=== PATIENT | female | born 1940 | race Caucasian/White ===

== ENCOUNTER → 2018-05-24 16:12 | Outpatient (CLI) | payer MEDICARE, OTHER, SELFPAY ==
--- NOTE | 2018-05-24 16:18 | RAD_ITS ---
STUDY: X-RAY - PELVIS AND RIGHT HIP REASON FOR EXAM: Female, 77 years old. Pain. TECHNIQUE: Radiological exam, hip, unilateral, with pelvis when performed; 2 or 3 views. COMPARISON: None. FINDINGS: There is a non-specific bowel gas pattern. Normal visualized soft tissue structures. Normal bilateral iliac wings, sacroiliac joints and visualized sacrum. Normal bilateral superior and inferior pubic rami. There are degenerative changes of the pubic symphysis with articular narrowing and sclerosis. Normal bilateral ischial tuberosities. Normal visualized femoral head. Normal acetabulum. There is moderate articular joint space narrowing of the hip. RAD/HIP, UNI W/ Pelvis 2-3 Views IMPRESSION: No acute fracture or dislocation. Degenerative changes. Electronically Signed: Robert Bee MD at 15:42 EDT , Service support ,
== END ==
PROVIDERS: Family Provider Family Medicine; PCP Family Medicine; Visit Provider Nurse Practitioner Family
DX: M25.551 Pain in right hip (principal)
CPT/HCPCS: 73502

== ENCOUNTER → 2018-05-31 09:44 | Outpatient (CLI) | payer MEDICARE, OTHER, SELFPAY ==
[2018-05-31 12:22] LABS: Absolute Lymphocyte Count 1.31 X10^3/ul (0.83-4.51); Absolute Neutrophil Count 3.2 X10^3/uL (2.0-7.7); Basophil# 0.03 X10^3/uL; Basophil% 0.6 % (0-1); Eosinophil# 0.11 X10^3/uL; Eosinophils% 2.2 % (0-5); Hematocrit 34.6 % (37-47); Hemoglobin 11.9 g/dl (12.0-15.0); Lymphocyte # 1.31 X10^3/ul (4.0); Lymphocyte % 26.1 % (19-41); Mean Corp Hgb Conc 34.4 g/gl (32-36); Mean Corpuscular Hgb 32.6 pg (27.0-32.0); Mean Corpuscular Volume 94.8 fL (81-99); Mean Platelet Vol. 9.7 fl (6.2-12.0); Neutrophil # 3.16 X10^3/uL (2.7-7.7); Neutrophil % 62.9 % (47-70); Platelet Count 287 K/mm3 (150-450); RBC Distribution Width CV 12.4 % (11.6-14.6); RBC Distribution Width SD 41.7 fl (35.1-43.9); Red Blood Count 3.65 M/mm3 (4.2-5.4)
[2018-05-31 12:24] LABS: POSITIVE COUNT NO; POSITIVE DIFFERENTIAL NO; POSITIVE MORPHOLOGY NO
[2018-05-31 12:38] LABS: Anion Gap 7 (5-15); BUN 12 mg/dL (7-18); BUN/Creat Ratio 17.6 RATIO (10-20); Calcium,Total 8.6 mg/dL (8.5-10.1); Chloride 97 mmol/L (98-107); Cholesterol 218 mg/dL (200); Creatinine, Serum 0.68 mg/dL (0.55-1.02); EST Glomerular Filtration Rate 89 mL/min (>60); Est Glom Filt Rate - Afr Amer 108 mL/min (>60); Glucose 81 mg/dL (74-106); High Density Lipoprotein 94 mg/dL; Potassium 4.1 mmol/L (3.5-5.1); Sodium Level 132 mmol/L (136-145); Thyroid Stim Hormone (TSH) 1.33 uIU/mL (0.358-3.74); Triglycerides 47 mg/dL; Very Low Density Lipoprotein 9 mg/dL (5-40)
== END ==
PROVIDERS: Family Provider Family Medicine; PCP Family Medicine; Visit Provider Family Medicine
DX: I10 Essential (primary) hypertension (principal); R53.83 Other fatigue; E78.00 Pure hypercholesterolemia, unspecified
CPT/HCPCS: 36415; 80048; 80061; 84443; 85025

== ENCOUNTER → 2018-10-11 09:25 | Outpatient (CLI) | payer MEDICARE, OTHER, SELFPAY ==
--- NOTE | 2018-10-11 09:30 | BI_ITS ---
MAMMOGRAPHY - BILATERAL SCREENING REASON FOR EXAM: Female, 77 years old. Routine annual screening examination. PERTINENT HISTORY: Non-contributory. Remote left excisional breast biopsy. TECHNIQUE: Digital bilateral breast aravind (3D mammographic acquisition) in the CC and MLO projections. 2-D mediolateral oblique (MLO) and craniocaudad (CC) views of both breasts were obtained. CAD: Full Field Digital Mammography with Computer Added Detection was performed. COMPARISON: Comparison is made with prior study dated September 26, 2017 and September 20, 2016. FINDINGS: Breast Composition: There are scattered areas of fibroglandular density. There are no dominant masses or suspicious calcifications. No other significant abnormalities are identified. There has been no significant change since the prior study. BI/SCREENING MAMM (CAD), BILAT IMPRESSION: Stable bilateral screening mammogram. Yearly follow-up mammogram recommended. (A) ASSESSMENT CATEGORY: BIRADS Category 1: Negative. A letter regarding these results will be sent to the patient by the facility within 30 days. Approximately 10% of breast cancers are not detected by mammography. A normal mammogram should not delay biopsy of a clinically suspicious abnormality. [id number] Electronically Signed: Rashel Vieira MD at 10:47 EST , Service support ,
== END ==
PROVIDERS: Family Provider Family Medicine; PCP Family Medicine; Referring Provider Family Medicine; Visit Provider Family Medicine
DX: Z12.31 Encounter for screening mammogram for malignant neoplasm of breast (principal)
CPT/HCPCS: 77063; 77067

== ENCOUNTER 2019-04-09 12:54 | Outpatient (RCR) | payer MEDICARE, OTHER, SELFPAY ==
--- NOTE | 2019-04-09 15:56 | HP.PTEVAL_ITS ---
Patient's Visit Information GEORGINA LEONARD is a 78 year old F referred to Physical Therapy by JOHNNIE Centeno with a diagnosis of LOW BACK IVDD, STENOSIS. Date of Evaluation: 04/09/19 Physical Therapist: Jewell Flower PT, Cert MDT - Visit Plan Frequency: 2-3x /Week Duration: 4-6 Weeks Plan: AQUATIC THERAPY FOR PAIN RELEIF, POSTURE CORRECTION/STRENGTHENING, INSTRUCTION IN APPROPRIATE BODY MECHANICS AND ACTIVITY MODIFICATIONS. DLS WITH A NEUTRAL SPINE. SVEN LE ROM, STRETCHING AND STRENGTHENING. HEP INSTRUCTION. - Subjective Findings: Work/Leisure: RETIRED. PATIENT REPORTS SHE HAS BEEN DIAGNOSED WITH STENOSIS AND SHE WAS REFERRED TO PAIN MGMT. FIRST EMILIO IN 2018. SHE HAS HAD 3. ALSO HAD HER NERVES BURNED ABOUT A MONTH AGO. SHE REPORTS SHE THINKS IT HAS HELPED. SHE REPORTS SHE FEELS PRETTY GOOD WHEN SHE GETS UP IN THE MORNING BUT BY EVENING SHE IS IN A LOT OF PAIN. IT IS DIFFICULT TO GET A MEAL PREPARED AND CLEAN UP AFTER. SHE THINKS SHE NEEDS TO TRY STRENGTHEING AGAIN. SHE REPORTS SHE STILL HAS A LOT OF PROPERTY BUT SHE HAS HELP. PATIENT REPORTS SHE STILL REMEMBERS A LOT OF WHAT SHE LEARNED IN PHYSICAL THERAPY LAST EPISODE OF CARE A FEW YEARS AGO BUT THINKS SHE NEEDS HELP AGAIN. STILL HAS A BAD LEFT FOOT TOO. Present symptoms: LOW BACK PAIN, TINGLING IN SVEN FEET THAT COMES AND GOES. Present since: YEARS. Pain Scale: WORST 6/10, LEAST 2/10. Currently: 2/10. Commenced as a result of: ARTHRITIS. Symptoms at onset: LOW BACK. Worse: BENDING, TWISTING, STANDING, WALKING, SHOPPING. Better: LYING DOWN, HEATING PAD, JUST RESTING. Disturbed sleep: YES. Previous history/Previous treatment: PAIN MGMT, PHYSICAL THERAPY, NO CHIROPRACTOR. Coughing/sneezing/straining: NEGATIVE. Gait: DISTANCE AND TIME LIMITED. NO ASSISTIVE DEVICES. NO FALLS. Difficulty initiating urinatin: NO. Unexplained weight loss: NO. Imaging: NONE RECENT. - Objective Sitting Posture: POOR. Standing Posture: POOR. Lordosis: REDUCED AND SCOLIOSIS. Active Correction of posture: BETTER. Other Observations: INDEP SIT TO STAND WITHOUT UE ASSIST. INDEP GAIT INTO PT WITH SLOW BUT STEADY GAIT. Motor deficit: SVEN LE'S WFL. LEFT ANKLE BRACE RESTRICTS INVERSION/EVERSION BUT DORSIFLEX IS FAIR. Sensory deficit: SVEN LE LIGHT TOUCH SENSATION IS INTACT AND SYMMETRICAL. ROM deficit: SVEN LE'S WFL BUT LEFT ANKLE INVER/EVER NT. Dural Signs: NEGATIVE SVEN LE DURAL SIGNS. Lumbar mvmt loss: flex - MIN. ext - ALICIA. R SG - MOD TO ALICIA. L SG - ALICIA. PATIENT HAS C/O PAIN WITH LUMBAR ROM TESTING ALL PLANES. Core strength: POOR. - Goals Goal 1:: DECREASE C/O BACK PAIN Goal Time Frame: 4-6 Weeks Goal 2:: IMPROVE STANDING AND WALKING FUNCTION Goal Time Frame: 4-6 Weeks Goal 3:: INSTRUCT IN PROPHYLAXIS Goal Time Frame: 4-6 Weeks - Rehabilitation Potential Rehabilitation Potential: Fair - Anticipated Interventions Patient/Client Instruction: Educate patient on: Condition, Plan of Care, Risk Factors, Benefits of Fitness Program For the Purpose of:: To improve self management Therapeutic Exercise to Include: Strength training, Body mechanics, Postural training, In an aquatic setting, Dynamic Lumbar Stabilization For the Purpose of:: To decrease pain, To improve muscle performance and motor function, To increase tolerance to activity/condition/position, To improve ability of physical actions for home/community/work/leisure, To improve gait and locomotor functions Thank you for the opportunity to evaluate your patient. For Medicare and Medicare HMO plans, please review the plan of care and approve it. It will need to be FAXED BACK to us at [phone] for Medicare purposes. For Medicare only, by signing this I certify the plan of care. Please let me know if there are questions or concerns regarding this plan of care. Physician Signature: Date:
--- NOTE | 2019-04-26 09:57 | HP.PT.NRP ---
HP - Discharge Summary (1) - Patient Information GEORGINA LEONARD was seen in my office for initial evaluation on 04/09/19. The following Plan of Care was established for this patient: Initial Frequency: 2-3x /Week Initial Duration: 4-6 Weeks - Anticipated Interventions Patient/Client Instruction: Educate patient on: Condition, Plan of Care, Risk Factors, Benefits of Fitness Program For the Purpose of:: To improve self management Therapeutic Exercise to Include: Strength training, Body mechanics, Postural training, In an aquatic setting, Dynamic Lumbar Stabilization For the Purpose of:: To decrease pain, To improve muscle performance and motor function, To increase tolerance to activity/condition/position, To improve ability of physical actions for home/community/work/leisure, To improve gait and locomotor functions This patient was last seen in our office . Pertinent comments regarding their Physical therapy will appear below: THIS PATIENT ATTENDED EVAL ONLY. I RECEIVED A NOTE STATING PATIENT LEFT A VOICEMAIL CANCELLING ALL REMAINING APPOINTMENTS WITH NO REASON GIVEN. At this point I will be discontinuing this patient from physical therapy. I would be happy to see this patient again in the future if found appropriate by the physician. Thank you! Jewell Flower, PT, Cert MDT
== END 2019-04-09 19:00 | disposition home or self-care (01) ==
LOC: PT 12:54
PROVIDERS: Family Provider Family Medicine; PCP Family Medicine; Referring Provider Nurse Practitioner Family; Visit Provider Nurse Practitioner Family
DX: M51.37 Other intervertebral disc degeneration, lumbosacral region (principal); M47.817 Spondylosis without myelopathy or radiculopathy, lumbosacral region; M54.17 Radiculopathy, lumbosacral region; M48.07 Spinal stenosis, lumbosacral region; M46.96 Unspecified inflammatory spondylopathy, lumbar region
CPT/HCPCS: 97162

== ENCOUNTER 2019-08-01 10:30 | Outpatient (RCR) | payer MEDICARE, OTHER, SELFPAY ==
--- NOTE | 2019-07-02 10:05 | HP.PTEVAL ---
Patient's Visit Information GEORGINA LEONARD is a 78 year old F referred to Physical Therapy by JOHNNIE Centeno with a diagnosis of LUMBOSACRAL DDD, SPONDYLOSIS, RADIC, STENOSIS AND FACET ARTHROPATHY.. Date of Evaluation: 07/02/19 Physical Therapist: Jewell Flower PT, Cert MDT - Visit Plan Frequency: 2x /Week Duration: 4-6 Weeks Plan: LUMBOSACRAL US, POSTURE CORRECTION/STRENGTHENING, INSTRUCTION IN APPROPRIATE BODY MECHANICS AND ACTIVITY MODIFICATIONS. DLS STARTING WITH A NEUTRAL SPINE PROGRESSING ROM TOLERATED. SVEN LE ROM, STRETCHING AND STRENGTHENING. HEP INSTRUCTION. - Subjective Findings: Present symptoms: SVEN LOW BACK PAIN AND RIGHT THIGH PAIN. Present since: YEARS. Pain Scale: WORST 5/10, LEAST 2/10. Currently: 4/10 - IMPROVED BUT UNCHANGING NOW. Commenced as a result of: NO APPARENT REASON. Symptoms at onset: LOW BACK. Worse: SITTING IN CERTAIN CHAIRS, WALKING, STANDING, DRIVING. Better: FREQUENT CHANGE OF POSITION. SOMETIMES ELEVATING RIGHT LEG. HEATING PAD. LYING DOWN. Disturbed sleep: NO. Previous history/Previous treatment: FIRST EMILIO WAS IN 2018. HAD NERVES BURNED TOO. HAS BEEN GOING TO THE CHIROPRACTOR FOR AWHILE - NOT SURE HOW MUCH IT HAS ACCOMPLISHED BUT SHE DOES FEEL A BIT BETTER. NEXT VISIT PENDING TUESDAY. NO BACK SURGERY. Coughing/sneezing/straining: POSITIVE. Gait: I WALK SLOWLY DUE TO FEAR OF FALLING. SOMETIMES USES WALKING STICK ON TRAILS ON PROPERTY WITH PETS. PATIENT REPORTS HER RIGHT LEG PAIN DOES NOT CAUSE HER TO LIMP. Difficulty initiating urinatin: NO. Accidents: NO. Unexplained weight loss: NO. Imaging: NONE RECENT. PMH: HTN. Recent major surgery: 2003 LEFT FOOT - BRACE. OTHER: PATIENT REPORTS SHE WAS NOT ABLE TO DO THERAPY THE LAST EPISODE OF CARE DUE TO NEEDING TO CARE FOR HER AND OTHER SCHEDULE CONFLICTS. ALSO NOT SURE ABOUT WATER EITHER. 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 ONLY GETS OUT TO GO TO DOCTOR. HELPS BATHE . NECK AND UPPER BACK ARE STIFF AND SORE FROM RECENT YARD WORK. - Objective Sitting Posture: POOR. Standing Posture: POOR. Lordosis: REDUCED AND SCOLIOSIS. Active Correction of posture: BETTER. Other Observations: INDEP SIT TO STAND WITHOUT UE ASSIST. INDEP GAIT INTO PT WITH SLOW BUT STEADY GAIT AND WEARING LEFT ANKLE BRACE. Motor deficit: SVEN LE'S WFL. LEFT ANKLE BRACE RESTRICTS INVERSION/EVERSION BUT DORSIFLEX IS FAIR. Sensory deficit: SVEN LE LIGHT TOUCH SENSATION IS INTACT AND SYMMETRICAL. ROM deficit: SVEN LE'S WFL BUT LEFT ANKLE INVER/EVER NT. Dural Signs: NEGATIVE SVEN LE DURAL SIGNS. Lumbar mvmt loss: flex - MIN. ext - ALICIA. R SG - MOD TO ALICIA. L SG - ALICIA. PATIENT HAS C/O PAIN WITH LUMBAR ROM TESTING ALL PLANES. Core strength: POOR. TREATMENT: INITIATED US TREATMENT TO SVEN LOW BACK TODAY WITH PATIENT IN PRONE AND PATIENT REPORTED DECREASED LOW BACK AND RIGHT THIGH PAIN POST. - Goals Goal 1:: DECREASE C/O LOW BACK AND SVEN LE SX'S. Goal Time Frame: 4-6 Weeks Goal 2:: IMPROVE LIFTING, WALKING, SITTING, STANDING, SOCIAL LIFE, TRAVEL AND HOMEMAKING FUNCTION Goal Time Frame: 4-6 Weeks Goal 3:: INSTRUCT IN PROPHYLAXIS Goal Time Frame: 4-6 Weeks - Rehabilitation Potential Rehabilitation Potential: Fair - Anticipated Interventions Patient/Client Instruction: Educate patient on: Condition, Plan of Care, Risk Factors, Benefits of Fitness Program For the Purpose of:: To improve self management Therapeutic Exercise to Include: Strength training, Body mechanics, Postural training, Flexibilty training, Dynamic Lumbar Stabilization For the Purpose of:: To decrease pain, To improve muscle performance and motor function, To increase tolerance to activity/condition/position, To improve ability of physical actions for home/community/work/leisure Thermo therapy (hot pack): Yes Ultrasound (thermal/non thermal): Yes For the Purpose of:: To decrease pain, To decrease swelling/inflammation, To improve nutrient delivery to tissue Thank you for the opportunity to evaluate your patient. For Medicare and Medicare HMO plans, please review the plan of care and approve it. It will need to be FAXED BACK to us at [phone] for Medicare purposes. For Medicare only, by signing this I certify the plan of care. Please let me know if there are questions or concerns regarding this plan of care. Physician Signature: Date:
--- NOTE | 2019-08-01 11:54 | HP.PTDCSUM ---
HP - PT D/C Summary It has been my pleasure to treat GEORGINA LEONARD under orders from Antoinette Yu, TREE SHEAR OPERATOR-C, for the diagnosis of LUMBOSACRAL DDD, SPONDYLOSIS, RADIC, STENOSIS AND FACET ARTHROPATHY. for a total of 9 visit(s). Discharge Date: Please see the following information for a summary of their discharge status. - Subjective Subjective: PATIENT REPORTS HER LEG HASN'T BEEN BOTHERING HER EXCEPT HER LEFT KNEE AND SHE TALKED TO ANTOINETTE YU ABOUT IT AT HER RECENT FOLLOW UP. LOW BACK MRI RECOMMENDED AND PATIENT PLANS TO HAVE ONE. LOW BACK SORENESS ONLY NOW. THIS HAS REALLY HELPED ME A LOT AND I WILL KEEP UP WITH MY EXERCISES. - Pain LOW BACK Pain Intensity (Out of 10): 1 RIGHT THIGH Pain Intensity (Out of 10): Unrated - Overall Improvement % Improvement: 60 - Objective Objective/Function: INDEP WITH HEP. ALL GOALS MET. OBJECTIVELY THERE ARE NO SIGNIFICANT CHANGES IN PATIENTS ROM AND STRENGTH SINCE INITIAL EVAL BUT HER PAIN AND FUNCTION HAVE IMPROVED. DISCHARGE TO [facility] AND PHYSICIAN FOLLOW UP NEEDED. - Goals Goal 1:: DECREASE C/O LOW BACK AND SVEN LE SX'S. Goal Progress: Goal Met Goal 2:: IMPROVE LIFTING, WALKING, SITTING, STANDING, SOCIAL LIFE, TRAVEL AND HOMEMAKING FUNCTION Goal Progress: Goal Met Goal 3:: INSTRUCT IN PROPHYLAXIS Goal Progress: Goal Met - Plan Plan: D/C. PATIENT AGREEABLE. - D/C Information If there are questions or concerns regarding this patient's physical therapy, please feel free to call me at [phone]. Thank you for the referral of this patient. Sincerely, Jewell Flower, PT, Cert MDT
== END 2019-08-01 19:00 | disposition home or self-care (01) ==
LOC: PT 10:30
PROVIDERS: Family Provider Family Medicine; PCP Family Medicine; Referring Provider Nurse Practitioner Family; Visit Provider Nurse Practitioner Family
DX: M53.3 Sacrococcygeal disorders, not elsewhere classified (principal); M47.27 Other spondylosis with radiculopathy, lumbosacral region; M48.07 Spinal stenosis, lumbosacral region; M46.96 Unspecified inflammatory spondylopathy, lumbar region; M79.10 Myalgia, unspecified site
CPT/HCPCS: 97035; 97110; 97162; 97530

== ENCOUNTER → 2019-08-14 13:11 | Outpatient (CLI) | payer MEDICARE, OTHER, SELFPAY ==
--- NOTE | 2019-08-14 13:25 | MRI_ITS ---
STUDY: MRI LUMBAR SPINE WITHOUT CONTRAST REASON FOR EXAM: Female, 78 years old. Low back pain, bilateral leg pain. TECHNIQUE: Standardized fat and water weighted pulse sequences were obtained in the sagittal and axial planes. COMPARISON: None FINDINGS: T12-L1: Normal endplates. Normal disc height, hydration and morphology. Normal bilateral facet joints. Normal central canal and bilateral lateral recesses. Normal bilateral intervertebral neural foramina. Normal lumbar lordosis. Moderate levoscoliosis centered at L3. Normal conus medullaris that terminates at the T12/L1. L1-2: Moderate broad disc protrusion produces mild spinal stenosis but moderate bilateral neural foraminal stenosis with abutment of the exiting L1 nerve roots bilaterally. L2-3: Mild broad disc protrusion produces a mild spinal stenosis but moderate bilateral neural foraminal stenosis with abutment of the exiting L2 nerve root bilaterally. L3-4: Mild broad disc protrusion produces mild spinal stenosis and mild bilateral neural foraminal stenosis. L4-5: Mild broad disc protrusion produces mild spinal stenosis and mild bilateral neural foraminal stenosis. L5-S1: Mild broad disc protrusion and left foraminal protrusion produces mild spinal stenosis, mild right neural foraminal stenosis but severe left neural foraminal stenosis with effacement of the left L5 nerve root laterally. Normal visualized sacral ala. Normal visualized paraspinous soft tissue structures. MRI/Spine Lumbar (Routine) IMPRESSION: Moderate levoscoliosis and degenerative disc disease as described above. Electronically Signed: Mohse Alonso MD at 15:24 EST Tel , Service support ,
== END ==
PROVIDERS: Family Provider Family Medicine; PCP Family Medicine; Referring Provider Nurse Practitioner Family; Visit Provider Nurse Practitioner Family
DX: M46.96 Unspecified inflammatory spondylopathy, lumbar region (principal); M51.17 Intervertebral disc disorders with radiculopathy, lumbosacral region; M47.27 Other spondylosis with radiculopathy, lumbosacral region; M48.07 Spinal stenosis, lumbosacral region
CPT/HCPCS: 72148

== ENCOUNTER → 2019-10-10 14:02 | Outpatient (CLI) | payer MEDICARE, OTHER, SELFPAY | LOC: MFPLAB 14:04 → LABSPEC 14:04 | PROVIDERS: PCP Family Medicine; Referring Provider Family Medicine; Visit Provider Family Medicine | DX: R19.7 Diarrhea, unspecified (principal) | CPT/HCPCS: 87493; 87506 ==

== ENCOUNTER → 2019-11-08 10:52 | Outpatient (CLI) | payer MEDICARE, OTHER, SELFPAY ==
--- NOTE | 2019-11-08 10:55 | BI_ITS ---
MAMMOGRAPHY - BILATERAL SCREENING REASON FOR EXAM: Female, 78 years old. Routine annual screening examination. PERTINENT HISTORY: Non-contributory. Remote left excisional breast biopsy. TECHNIQUE: Digital bilateral breast deirdre (3D mammographic acquisition) in the CC and MLO projections. 2-D mediolateral oblique (MLO) and craniocaudad (CC) views of both breasts were obtained. CAD: Full Field Digital Mammography with Computer Added Detection was performed. COMPARISON: Comparison is made with prior study dated October 11, 2018 and March 26, 2008. FINDINGS: Breast Composition: There are scattered areas of fibroglandular density. There are no dominant masses or suspicious calcifications. No other significant abnormalities are identified. There has been no significant change since the prior study. BI/SCREEN MAMM (CAD) W/DEIRDRE BILAT IMPRESSION: Stable bilateral screening mammogram. Yearly follow-up mammogram recommended. (A) ASSESSMENT CATEGORY: BIRADS Category 1: Negative. A letter regarding these results will be sent to the patient by the facility within 30 days. Approximately 10% of breast cancers are not detected by mammography. A normal mammogram should not delay biopsy of a clinically suspicious abnormality. [id number] Electronically Signed: Rashel Vieira, at 12:46 EST , Service support ,
--- NOTE | 2019-11-08 10:55 | BD_ITS ---
STUDY: DUAL ENERGY X-RAY ABSORPTIOMETRY / DXA REASON FOR EXAM: Female, 78 years old. Age of felice- 52. Pat is 117.7# and 63 and quot; a loss of 4 and quot; per pat. Past hx of smoking but for a short time. Takes 500mg of calcium. Been on fosamax for about 15 yrs.. with a small break about 10 yrs. ago. Exercises a little. Hx left lower leg, left foot and left wrist fx'' s. TECHNIQUE: Bone Mineral Density (BMD) measurements of lumbar spine and bilateral hips were obtained. COMPARISON: Comparison is made with prior study dated August 19, 2011. FINDINGS: Lumbar Spine (L1-L4): g/cm2 (1.090) / T-score (-0.6) / Z-score (1.2) Findings are suggestive of normal bone density with a low fracture risk. Left Femur Total: g/cm2 (0.823) / T-score (-1.5) / Z-score (0.4) Left Femoral Neck: g/cm2 (0.728) / T-score (-2.2) / Z-score (-0.2) Right Femur Total: g/cm2 (0.874) / T-score (-1.1) / Z-score (0.8) Right Femoral Neck: g/cm2 (0.821) / T-score (-1.6) / Z-score (0.4) The T-Scores on the most recent prior examination were: Lumbar Spine (L1-L4): There has been improvement of bone density since the previous examination. Left Femur Total: which represents a worsening of 9.4%. Right Femur Total: which represents a worsening of 8.9%. BD/Dexa Bone Density Study IMPRESSION: The patient is considered osteopenic as outlined below according to World Charan Organization (WHO) criteria with a high fracture risk. There has been worsening of bone density since the previous examination. Reference Information: The T-score is the number of standard deviations above or below the standard which is normal for young adults at their peak bone mineral density. The World Health Organization (WHO) interprets the T-scores as follows: Above -1 Normal bone density Between -1 and -2.5 Osteopenia Equal to / or below -2.5 Osteoporosis As a practical clinical guideline, osteopenia may be graded as follows: Mild -1 through -1.5 Moderate -1.6 through -2.0 Severe -2.1 through -2.4 The Z-score is the number of standard deviations above or below age-matched controls. A Z-score of less than -1.5 would be considered abnormal. References: 1. NIH Osteoporosis and Related Bone Diseases http://www.osteo.org 2. International Society for Clinical Densitometry http://www.iscd.org 3. National Osteoporosis Foundation http://www.nof.org Electronically Signed: Rashel Vieira, at 14:51 EST , Service support ,
== END ==
PROVIDERS: PCP Family Medicine; Referring Provider Family Medicine; Visit Provider Family Medicine
DX: Z12.31 Encounter for screening mammogram for malignant neoplasm of breast (principal); M81.0 Age-related osteoporosis without current pathological fracture
CPT/HCPCS: 77063; 77067; 77080

== ENCOUNTER → 2020-02-13 09:56 | Outpatient (CLI) | payer MEDICARE, OTHER, SELFPAY ==
--- NOTE | 2020-02-13 09:59 | RAD_ITS ---
STUDY: X-RAY - LEFT KNEE REASON FOR EXAM: Female, 79 years old. Left knee pain off and on TECHNIQUE: 4 view(s) of the knee. COMPARISON: None. FINDINGS: Normal visualized distal femur. Normal visualized proximal tibia and fibula. Normal proximal tibiofibular articulation. There is mild degenerative arthrosis of the medial femorotibial compartment. Normal lateral femorotibial compartment. Normal patellofemoral articulation. There is an 8.6 mm x 5.2 mm calcific density in the posterior aspect of the knee joint. This may represent a loose body. Small joint effusion. RAD/Knee 4 or More Views IMPRESSION: Degenerative arthrosis. 8.6 mm x 5.2 mm calcific density in the posterior aspect of the knee joint. This may represent a loose body. Electronically Signed: Rashel Vieira, at 12:38 EDT , Service support ,
== END ==
PROVIDERS: PCP Family Medicine; Referring Provider Nurse Practitioner Family; Visit Provider Nurse Practitioner Family
DX: M25.562 Pain in left knee (principal)
CPT/HCPCS: 73564

== ENCOUNTER → 2020-02-27 13:18 | Outpatient (CLI) | payer MEDICARE, OTHER, SELFPAY ==
--- NOTE | 2020-02-27 13:31 | MRI_ITS ---
STUDY: MRI LEFT KNEE REASON FOR EXAM: Pain for 3-4 months, abnormal left knee radiograph. TECHNIQUE: Standardized fat and water weighted pulse sequences were obtained in all 3 orthogonal planes. COMPARISON: Radiographs 02/13/2020. FINDINGS: There is mild intrasubstance myxoid degeneration of the posterior horn of the medial meniscus without discrete medial meniscal tear. There is arthrosis of the medial femorotibial compartment with partial-thickness chondral loss (T2 sagittal image 8) and slight subchondral bone edema of the medial femoral condyle. Normal medial collateral ligamentous complex (MCL). There is semimembranosus bursitis (T2 sagittal images 4-7). There is tear/degeneration of the posterior horn and posterior body of the lateral meniscus (proton-density sagittal images 28-34; proton density coronal images 13, 14). There is arthrosis of the lateral femorotibial compartment with chondral thinning (T2 sagittal image 18). There is mild subchondral bone edema of the lateral femoral condyle and tibial plateau (T2 coronal images 12-15), a stress phenomenon. Normal proximal tibiofibular articulation. Normal lateral collateral (fibular) ligament. Normal popliteus tendon. Normal biceps femoris tendon. Normal anterior cruciate ligament (ACL). Normal posterior cruciate ligament (PCL). Normal congruent patellofemoral articulation. There is high-grade chondromalacia of the medial patellar facet (T2 axial image 10). Normal medial and lateral patellar retinaculum. Normal quadriceps tendon. Normal patellar tendon. Normal Hoffa''s fat pad. There is a [id number] sized joint effusion. There are intra-articular bodies posterior to the distal posterior cruciate ligament (T2 sagittal images 11-13), the largest measuring 0.9 cm in length. There is a small popliteal cyst (T2 sagittal image 9). The otherwise visualized osseous structures are unremarkable. MRI/Lower Ext Joint Only (Routine) IMPRESSION: Posterior intra-articular bodies accounting for the abnormality on the radiographs. Tear/degeneration of the lateral meniscus. Arthrosis of the medial and lateral femorotibial compartments. Chondromalacia patellae. Mild subchondral bone edema of the lateral femoral condyle and lateral tibial plateau, a stress phenomenon. Joint effusion. Small popliteal cyst. Semimembranosus bursitis. Electronically Signed: Aleksandr Rhodes MD at 15:07 EDT Tel , Service support ,
== END ==
PROVIDERS: PCP Family Medicine; Referring Provider Anesthesiology Pain Medicine; Visit Provider Anesthesiology Pain Medicine
DX: M25.562 Pain in left knee (principal)
CPT/HCPCS: 73721

== ENCOUNTER → 2020-07-08 09:27 | Outpatient (CLI) | payer MEDICARE, OTHER, SELFPAY ==
[2020-07-08 09:31] LABS: Lyme Ab Screen Interpretation REF LAB
[2020-07-08 12:07] LABS: Absolute Lymphocyte Count 1.55 X10^3/uL (0.83-4.51); Absolute Neutrophil Count 2.8 X10^3/uL (2.0-7.7); Basophil# 0.02 X10^3/uL; Basophil% 0.4 % (0-1); Eosinophil# 0.14 X10^3/uL; Eosinophils% 2.8 % (0-5); Hematocrit 35.1 % (37-47); Hemoglobin 11.9 g/dL (12.0-15.0); Lymphocyte # 1.55 X10^3/ul (4.0); Lymphocyte % 31.5 % (19-41); Mean Corp Hgb Conc 33.9 g/dL (32-36); Mean Corpuscular Hgb 33.7 pg (27.0-32.0); Mean Corpuscular Volume 99.4 fL (81-99); Mean Platelet Vol. 9.6 fl (6.2-12.0); Monocyte# 0.44 X10^3/uL; Monocyte% 8.9 % (0-10); NRBC Flagged by Analyzer 0 % (0-5); Neutrophil # 2.75 X10^3/uL (2.7-7.7); Platelet Count 325 K/mm3 (150-450); RBC Distribution Width CV 13.8 % (11.6-14.6); RBC Distribution Width SD 50.6 fl (35.1-43.9); Red Blood Count 3.53 M/mm3 (4.2-5.4); White Blood Count 4.9 K/mm3 (4.4-11.0)
[2020-07-08 12:30] LABS: ALB/GLOB Ratio 1.2 RATIO (0.9-2.4); AST(SGOT) 22 U/L (15-37); Alanine Aminotransfer ALT/SGPT 23 U/L (13-56); Albumin, Serum 3.6 g/dL (3.2-5.0); Alkaline Phosphatase 36 U/L (45-117); Anion Gap 8 (5-15); BUN 17 mg/dL (7-18); BUN/Creat Ratio 25.8 RATIO (10-20); Calcium,Total 8.7 mg/dL (8.5-10.1); Chloride 100 mmol/L (98-107); Cholesterol 211 mg/dL (200); Creatinine, Serum 0.66 mg/dL (0.55-1.02); EST Glomerular Filtration Rate 93 mL/min (>60); Est Glom Filt Rate - Afr Amer 112 mL/min (>60); Glucose 89 mg/dL (74-106); High Density Lipoprotein 139 mg/dL; Potassium 3.7 mmol/L (3.5-5.1); Protein, Total 6.6 g/dL (6.4-8.2); Sodium Level 134 mmol/L (136-145); Triglycerides 39 mg/dL; Very Low Density Lipoprotein 8 mg/dL (5-40)
[2020-07-09 16:25] LABS: Lyme Scn Total Ab w/Rflx <0.91 ISR (0.00-0.90)
== END ==
PROVIDERS: PCP Family Medicine; Referring Provider Family Medicine; Visit Provider Family Medicine
DX: I10 Essential (primary) hypertension (principal); T14.8XXA Other injury of unspecified body region, initial encounter; W57.XXXA Bitten or stung by nonvenomous insect and other nonvenomous arthropods, initial encounter
CPT/HCPCS: 36415; 80053; 80061; 85025; 86618

== ENCOUNTER → 2020-09-04 09:42 | Outpatient (CLI) | payer MEDICARE, OTHER, SELFPAY ==
--- NOTE | 2020-09-04 09:48 | RAD_ITS ---
STUDY: X-RAY - THORACIC SPINE REASON FOR EXAM: Female, 79 years old. thoracic back pain TECHNIQUE: 3 view(s) of the thoracic spine were obtained. COMPARISON: None. FINDINGS: Normal kyphosis of the thoracic spine. There is S-shaped scoliosis of the thoracolumbar spine. There is demineralization of the thoracic spine with endplate spondylosis. There is multilevel disc space narrowing of the thoracic spine. No demonstrate a compression fracture. The soft tissue structures are unremarkable. RAD/Thoracic Spine 2 Views IMPRESSION: Multilevel degenerative disc disease. S-shaped scoliosis of the thoracolumbar spine. Electronically Signed: Sarath Pandey MD ([place]) at 11:24 EST , Service support ,
== END ==
PROVIDERS: PCP Family Medicine; Referring Provider Nurse Practitioner Family; Visit Provider Nurse Practitioner Family
DX: M54.6 Pain in thoracic spine (principal)
CPT/HCPCS: 72070

== ENCOUNTER → 2021-03-17 11:22 | Outpatient (CLI) | payer MEDICARE, OTHER, SELFPAY ==
--- NOTE | 2021-03-17 11:26 | BI_ITS ---
MAMMOGRAPHY - BILATERAL SCREENING REASON FOR EXAM: Female, 80 years old. Routine annual screening examination. PERTINENT HISTORY: Non-contributory. Remote left excisional breast biopsy. TECHNIQUE: Digital bilateral breast deirdre (3D mammographic acquisition) in the CC and MLO projections. 2-D mediolateral oblique (MLO) and craniocaudad (CC) views of both breasts were obtained. CAD: Full Field Digital Mammography with Computer Added Detection was performed. COMPARISON: Comparison is made with prior study dated 11/08/2019 and 10/11/2018. FINDINGS: Breast Composition: There are scattered areas of fibroglandular density. There are no dominant masses or suspicious calcifications. Stable small bilateral benign-appearing axillary lymph nodes. No other significant abnormalities are identified. There has been no significant change since the prior study. BI/SCRN MAMM (CAD)W/DEIRDRE BILAT IMPRESSION: Stable bilateral screening mammogram. Yearly follow-up mammogram recommended. (A) ASSESSMENT CATEGORY: BIRADS Category 2: Benign. A letter regarding these results will be sent to the patient by the facility within 30 days. Approximately 10% of breast cancers are not detected by mammography. A normal mammogram should not delay biopsy of a clinically suspicious abnormality. [id number] Electronically Signed: Rashel Vieira MD at 12:42 EDT , Service support ,
== END ==
PROVIDERS: PCP Family Medicine; Referring Provider Family Medicine; Visit Provider Family Medicine
DX: Z12.31 Encounter for screening mammogram for malignant neoplasm of breast (principal)
CPT/HCPCS: 77063; 77067

== ENCOUNTER → 2021-07-01 09:16 | Outpatient (CLI) | payer MEDICARE, OTHER, SELFPAY ==
[2021-07-01 10:03] LABS: Absolute Lymphocyte Count 1.48 X10^3/uL (0.83-4.51); Absolute Neutrophil Count 2.9 X10^3/uL (2.0-7.7); Basophil# 0.03 X10^3/uL; Basophil% 0.6 % (0-1); Eosinophil# 0.13 X10^3/uL; Eosinophils% 2.6 % (0-5); Hemoglobin 11.6 g/dL (12.0-15.0); Lymphocyte # 1.48 X10^3/ul (0.83-4.51); Lymphocyte % 29.5 % (19-41); Mean Corp Hgb Conc 33.1 g/dL (32-36); Mean Corpuscular Hgb 32.4 pg (27.0-32.0); Mean Corpuscular Volume 97.8 fL (81-99); Mean Platelet Vol. 9.8 fl (6.2-12.0); Monocyte# 0.45 X10^3/uL; NRBC Flagged by Analyzer 0 % (0-5); Neutrophil # 2.91 X10^3/uL (2.7-7.7); Neutrophil % 58.1 % (47-70); Platelet Count 309 K/mm3 (150-450); RBC Distribution Width CV 13.6 % (11.6-14.6); RBC Distribution Width SD 49.2 fl (35.1-43.9); Red Blood Count 3.58 M/mm3 (4.2-5.4)
[2021-07-01 10:36] LABS: ALB/GLOB Ratio 1.1 RATIO (0.9-2.4); AST(SGOT) 18 U/L (15-37); Alanine Aminotransfer ALT/SGPT 18 U/L (13-56); Albumin, Serum 3.3 g/dL (3.2-5.0); Alkaline Phosphatase 34 U/L (45-117); Anion Gap 4 (5-15); BUN 17 mg/dL (7-18); BUN/Creat Ratio 27.5 RATIO (10-20); Calcium,Total 8.4 mg/dL (8.5-10.1); Chloride 102 mmol/L (98-107); Cholesterol 189 mg/dL (200); Creatinine, Serum 0.62 mg/dL (0.55-1.02); EST Glomerular Filtration Rate 99 mL/min (>60); Est Glom Filt Rate - Afr Amer 120 mL/min (>60); Glucose 91 mg/dL (74-106); High Density Lipoprotein 112 mg/dL; Protein, Total 6.3 g/dL (6.4-8.2); Sodium Level 134 mmol/L (136-145); Triglycerides 42 mg/dL; Very Low Density Lipoprotein 8 mg/dL (5-40)
== END ==
PROVIDERS: PCP Family Medicine; Referring Provider Family Medicine; Visit Provider Registered Nurse
DX: I10 Essential (primary) hypertension (principal)
CPT/HCPCS: 36415; 80053; 80061; 85025

== ENCOUNTER → 2021-07-15 11:27 | Outpatient (CLI) | payer MEDICARE, OTHER, SELFPAY ==
[2021-07-15 11:39] LABS: Bacteria 0 SEEN /hpf (None Seen); Mucous, Urine 0 SEEN /hpf (<or=2+); Red Blood Cells-Urine 0 SEEN /hpf (0-5)
[2021-07-15 15:16] LABS: Absolute Lymphocyte Count 1.57 X10^3/uL (0.83-4.51); Absolute Neutrophil Count 3.5 X10^3/uL (2.0-7.7); Basophil# 0.04 X10^3/uL; Basophil% 0.7 % (0-1); Eosinophils% 1.8 % (0-5); Hemoglobin 11.9 g/dL (12.0-15.0); Lymphocyte # 1.57 X10^3/ul (0.83-4.51); Lymphocyte % 27.5 % (19-41); Mean Corpuscular Hgb 32.7 pg (27.0-32.0); Mean Corpuscular Volume 96.2 fL (81-99); Mean Platelet Vol. 10.1 fl (6.2-12.0); Monocyte# 0.46 X10^3/uL; Monocyte% 8.1 % (0-10); NRBC Flagged by Analyzer 0 % (0-5); Neutrophil # 3.52 X10^3/uL (2.7-7.7); Neutrophil % 61.5 % (47-70); Platelet Count 331 K/mm3 (150-450); RBC Distribution Width CV 13.6 % (11.6-14.6); RBC Distribution Width SD 48.6 fl (35.1-43.9); Red Blood Count 3.64 M/mm3 (4.2-5.4); White Blood Count 5.7 K/mm3 (4.4-11.0)
[2021-07-15 15:34] LABS: Vitamin B12 833 pg/mL (211-911); Vitamin D,25 Hydroxy 35.1 ng/mL
[2021-07-15 15:38] LABS: Color, Urine Yellow (Yellow); Glucose, Dipstick Normal (Normal); Ketone-Dipstick Negative (Negative); Leukocyte Esterase-Dipstick 500 /ul (Negative); Nitrite-Dipstick Negative (Negative); Occult Blood-Urine 10 /ul (Negative); Protein-Dipstick Negative (Negative); Urine Bilirubin Dipstick Negative (Negative); Urine Clarity Clear (Clear); Urine Urobilinogen Normal (Normal)
[2021-07-15 15:48] LABS: Renal Epithelial Cells 0-5 SEEN /hpf (0-5); Squamous Epithelial Cells - UA 0-5 SEEN /hpf (5-10); White Blood Cells 0-5 SEEN /hpf (0-5)
[2021-07-15 16:14] LABS: Ferritin 101 ng/mL (8-252); Iron 76 ug/dL (50-170); Iron Binding Capacity,Total 291 ug/dL (250-450); Thyroid Stim Hormone (TSH) 0.97 uIU/mL (0.358-3.74); Uric Acid 4.3 mg/dL (2.6-6.0)
[2021-07-15 16:54] LABS: Amphetamine Urine VISTA NEGATIVE (<1000 ng/mL); Barbiturate Urine VISTA NEGATIVE (< 200 ng/mL); Benzodiazepine Urine VISTA NEGATIVE (< 200 ng/mL); Cocaine Urine VISTA NEGATIVE (< 300 ng/mL); Ecstacy Urine VISTA NEGATIVE (< 500 ng/mL); Methadone Urine VISTA NEGATIVE (< 300 ng/mL); PCP Urine VISTA NEGATIVE (< 25 ng/mL); THC Urine VISTA NEGATIVE (< 50 ng/mL); Vista UDS pH Range 6
== END ==
PROVIDERS: PCP Family Medicine; Referring Provider Family Medicine; Visit Provider Family Medicine
DX: M85.80 Other specified disorders of bone density and structure, unspecified site (principal); I10 Essential (primary) hypertension; M10.9 Gout, unspecified; F41.9 Anxiety disorder, unspecified; D64.9 Anemia, unspecified
CPT/HCPCS: 36415; 80307; 81001; 82306; 82607; 82728; 82746; 83540; 83550; 84443; 84550; 85025

== ENCOUNTER → 2021-07-22 09:31 | Outpatient (CLI) | payer MEDICARE, OTHER, SELFPAY | PROVIDERS: PCP Family Medicine; Referring Provider Family Medicine; Visit Provider Family Medicine | DX: F41.9 Anxiety disorder, unspecified (principal) | CPT/HCPCS: 80346 ==

== ENCOUNTER → 2021-07-29 10:55 | Outpatient (CLI) | payer MEDICARE, OTHER, SELFPAY ==
--- NOTE | 2021-07-29 10:59 | ECHOD_ITS ---
Reason For Study: MURMUR Procedure This was a 2D Doppler, Color Flow transthoracic echocardiogram. Exam performed in department. Left Ventricle Normal LV size. Left ventricular systolic function is normal. The estimated ejection fraction is 60 %. Stage 1 diastolic dysfunction. No regional wall motion abnormalities noted. Right Ventricle Normal RV size. Normal systolic function. Atria Normal left atrium. Normal right atrium. Mitral Valve Normal mitral valve. Tricuspid Valve Normal tricuspid valve. Mild (1+) tricuspid valve insufficiency. Pulmonary artery systolic pressure is 30 mmHg. Aortic Valve Trisinus/trileaflet aortic valve. Mild focal aortic valve calcification. Mild (1+) aortic valve insufficiency. Pulmonic Valve Normal pulmonic valve. Great Vessels Normal aortic root. The pulmonary artery is normal size. Inferior vena cava collapse with respiration. Pericardium/Pleural No pericardial effusion. MMode/2D Measurements & Calculations LVIDd: 4.7 cm IVSd: 0.91 cm Ao root diam: 3.6 cm LVIDs: 3.0 cm LVPWd: 0.92 cm RVDd: 3.2 cm FS: 36.3 % LAV(MOD-bp): 46.4 ml LVAd ap4: 24.7 cm2 LVAd ap2: 28.0 cm2 LAV(MOD-bp) Indexed: 29.7 ml/m2 LVLd ap4: 7.1 cm LVLd ap2: 7.0 cm LAV(MOD-sp2): 41.6 ml EDV(MOD-sp4): 66.8 ml EDV(MOD-sp2): 94.0 ml LAV(MOD-sp4): 40.8 ml EDV(sp4-el): 72.3 ml EDV(sp2-el): 95.1 ml LVAs ap4: 13.9 cm2 LVAs ap2: 17.6 cm2 LVLs ap4: 5.7 cm LVLs ap2: 6.6 cm ESV(MOD-sp4): 28.0 ml ESV(MOD-sp2): 40.1 ml ESV(sp4-el): 28.7 ml ESV(sp2-el): 39.8 ml EF(MOD-sp4): 58.1 % EF(MOD-sp2): 57.3 % EF(sp4-el): 60.3 % SV(MOD-sp4): 38.8 ml SV(MOD-sp2): 53.8 ml SV(sp4-el): 43.6 ml LA dimension(2D): 3.2 cm LA A4 area: 16.1 cm2 RA A4 area: 10.4 cm2 Doppler Measurements & Calculations MV E max matthew: 58.9 cm/sec Lat Peak E' Matthew: 2.5 cm/sec Med Peak E' Matthew: 3.0 cm/sec MV A max matthew: 124.1 cm/sec E/E' lat: 23.4 E/E' med: 19.8 MV E/A: 0.47 Ao V2 max: 157.1 cm/sec AI max matthew: 388.1 cm/sec LV V1 max: 90.4 cm/sec Ao max P.9 mmHg AI max P.3 mmHg LV V1 max P.3 mmHg AI dec slope: 133.4 cm/sec2 AI P1/2t: 852.3 msec PA V2 max: 103.8 cm/sec PI end-d matthew: 89.7 cm/sec TR max matthew: 256.0 cm/sec TR max P.2 mmHg ECHO/Echo Complete Interpretation Summary Normal LV size. Left ventricular systolic function is normal. The estimated ejection fraction is 60 %. Stage 1 diastolic dysfunction. Mild (1+) aortic valve insufficiency. Mild (1+) tricuspid valve insufficiency. Ordering Physician: Rolf Peck Referring Physician: Rolf Peck Performed By: Loretta Sharp, JASWANT, RVT
== END ==
PROVIDERS: PCP Family Medicine; Referring Provider Family Medicine; Visit Provider Family Medicine
DX: R01.1 Cardiac murmur, unspecified (principal)
CPT/HCPCS: 93306

== ENCOUNTER → 2021-10-21 11:28 | Outpatient (CLI) | payer MEDICARE, OTHER, SELFPAY ==
--- NOTE | 2021-10-21 11:33 | RAD_ITS ---
STUDY: X-RAY - RIGHT SHOULDER REASON FOR EXAM: Female, 80 years old. Shoulder swelling. TECHNIQUE: 4 view(s) of the shoulder. COMPARISON: None. FINDINGS: Osteopenia. Mild anterior and inferior displacement of the humeral head in relation to the glenoid. Mild arthrosis of the AC joint. Normal acromion. Normal humeral head and visualized proximal humerus. The soft tissue structures are unremarkable. Normal visualized pulmonary apex. RAD/Shoulder min 2 Views IMPRESSION: Osteopenia with anterior and inferior displacement of the humeral head in relation to the glenoid. After reduction, postreduction images recommended to assess for occult osseous abnormality. Electronically Signed: Artis Flores MD at 11:58 EST ,
[2021-10-21 11:48] LABS: Bacteria 0 SEEN /hpf (None Seen); Mucous, Urine 0 SEEN /hpf (<or=2+); Red Blood Cells-Urine 0 SEEN /hpf (0-5); Squamous Epithelial Cells - UA 0 SEEN /hpf (5-10); White Blood Cells 0 SEEN /hpf (0-5)
[2021-10-21 15:04] LABS: Absolute Lymphocyte Count 1.56 X10^3/uL (0.83-4.51); Absolute Neutrophil Count 3.6 X10^3/uL (2.0-7.7); Basophil# 0.05 X10^3/uL; Basophil% 0.9 % (0-1); Eosinophil# 0.09 X10^3/uL; Eosinophils% 1.5 % (0-5); Hematocrit 36.7 % (37-47); Hemoglobin 12.3 g/dL (12.0-15.0); Lymphocyte # 1.56 X10^3/ul (0.83-4.51); Lymphocyte % 26.7 % (19-41); Mean Corp Hgb Conc 33.5 g/dL (32-36); Mean Corpuscular Hgb 32.9 pg (27.0-32.0); Mean Corpuscular Volume 98.1 fL (81-99); Mean Platelet Vol. 9.9 fl (6.2-12.0); Monocyte# 0.52 X10^3/uL; Monocyte% 8.9 % (0-10); NRBC Flagged by Analyzer 0 % (0-5); Neutrophil # 3.62 X10^3/uL (2.7-7.7); Neutrophil % 61.8 % (47-70); Platelet Count 322 K/mm3 (150-450); RBC Distribution Width CV 13.5 % (11.6-14.6); RBC Distribution Width SD 49.1 fl (35.1-43.9); Red Blood Count 3.74 M/mm3 (4.2-5.4); White Blood Count 5.9 K/mm3 (4.4-11.0)
[2021-10-21 15:45] LABS: Color, Urine Yellow (Yellow); Glucose, Dipstick Normal (Normal); Ketone-Dipstick Negative (Negative); Leukocyte Esterase-Dipstick 25 /ul (Negative); Nitrite-Dipstick Negative (Negative); Occult Blood-Urine 10 /ul (Negative); Protein-Dipstick Negative (Negative); Specific Gravity, Urine 1.015 (1.002-1.030); Urine Bilirubin Dipstick Negative (Negative); Urine Clarity Clear (Clear); Urine Urobilinogen Normal (Normal)
[2021-10-21 16:19] LABS: ALB/GLOB Ratio 1.2 RATIO (0.9-2.4); AST(SGOT) 19 U/L (15-37); Alanine Aminotransfer ALT/SGPT 23 U/L (13-56); Albumin, Serum 3.9 g/dL (3.2-5.0); Alkaline Phosphatase 38 U/L (45-117); Anion Gap 6 (5-15); BUN 16 mg/dL (7-18); BUN/Creat Ratio 24.4 RATIO (10-20); Calcium,Total 9.3 mg/dL (8.5-10.1); Chloride 93 mmol/L (98-107); Creatinine, Serum 0.66 mg/dL (0.55-1.02); EST Glomerular Filtration Rate 92 mL/min (>60); Est Glom Filt Rate - Afr Amer 112 mL/min (>60); Ferritin 98 ng/mL (8-252); Globulin 3.2 g/dL (2.2-4.2); Glucose 95 mg/dL (74-106); Iron 85 ug/dL (50-170); Iron Binding Capacity,Total 331 ug/dL (250-450); Potassium 4.4 mmol/L (3.5-5.1); Protein, Total 7.1 g/dL (6.4-8.2); Sodium Level 129 mmol/L (136-145)
[2021-10-21 17:08] LABS: Vitamin B12 754 pg/mL (211-911); Vitamin D,25 Hydroxy 37.4 ng/mL
== END ==
PROVIDERS: PCP Family Medicine; Referring Provider Family Medicine; Visit Provider Family Medicine
DX: M25.411 Effusion, right shoulder (principal); D64.9 Anemia, unspecified; I10 Essential (primary) hypertension; M85.80 Other specified disorders of bone density and structure, unspecified site
CPT/HCPCS: 36415; 73030; 80053; 81001; 82306; 82607; 82728; 82746; 83540; 83550; 85025

== ENCOUNTER 2021-10-23 08:19 | Emergency (ER) | payer MEDICARE, OTHER, SELFPAY ==
[2021-10-23 08:20] VITALS: BP 164/93; PULSE 64; RESP 18; TEMP 36.6; O2SAT 100; BMI 21.1
--- NOTE | 2021-10-23 09:05 | RAD_ITS ---
STUDY: X-RAY - RIGHT SHOULDER REASON FOR EXAM: Female, 80 years old. Pain, need axil toña view TECHNIQUE: 2 view(s) of the shoulder. COMPARISON: Comparison is made with prior study dated 10/21/2021. FINDINGS: There is moderate degenerative arthrosis of the glenohumeral articulation. Normal acromioclavicular joint. Normal acromion. Stable mild degree of anterior and inferior displacement of the humeral head in relation to the glenoid. The soft tissue structures are unremarkable. Normal visualized pulmonary apex. RAD/Shoulder min 2 Views IMPRESSION: Persistent mild degree of anterior and inferior displacement of the humeral head. Electronically Signed: Rashel Vieira MD at 9:45 EST ,
--- NOTE | 2021-10-23 09:07 | EDS_ITS ---
HPI History of Present Illness Chief Complaint: Disclocation Detail of Chief Complaint: Right shoulder pain and possible dislocation Informant: patient Narrative Narrative: Patient presents to the emergency department with complaint of right shoulder pain. Patient tells me she has had the pain for about 4 months but worse over the last month. She saw her primary care physician who ordered outpatient x-rays 2 days ago and was called and told that she had a dislocation in the follow-up with orthopedics. She called orthopedics and was told to come to the emergency department to have the shoulder reduced. Patient is right-hand dominant. [facility] Medical History (Updated 10/23/21 @ 10:[address] Rick De León, DO) Hypertension Home Medications celecoxib 200 mg PO DAILY 10/23/21 [History Last Taken Unknown] lisinopril 20 mg PO DAILY 10/23/21 [History Last Taken Unknown] Allergy/AdvReac Type Severity Reaction Status Date / Time prednisone AdvReac Other Verified 10/23/21 08:30 WASPS Allergy Hives Uncoded 10/23/21 08:30 YELLOW JACKETS Allergy Hives Uncoded 10/23/21 08:30 Social History Smoking Status: Never smoker ROS ROS ED Constitutional Constitutional ED: Reports systems reviewed and no addt'l complaints, except as documented; Denies body ache(s), change in weight or chills Eyes Eyes: Denies acute decrease in peripheral vision, change in vision, double vision or loss of vision ENT ENT ED: Reports none; Denies ear pain, lip swelling, loss taste/smell, neck pain, otalgia or sore throat Cardiovascular Cardiovascular: Reports none; Denies abdominal pain, chest pain with activity, leg edema, lightheadedness, palpitations, rapid heart rate or syncope Respiratory/Chest Respiratory/Chest: Reports none; Denies change in mental status, dry cough, dyspnea, hemoptysis, shortness of breath at rest or shortness of breath with exertion Gastrointestinal Gastrointestinal: Reports none; Denies abdominal pain, change in stool character, diarrhea, hematemesis, hematochezia, melena, rectal bleeding or vomiting Genitourinary Genitourinary ED: Reports none; Denies abdominal discomfort, anuria, dysuria, genital pain or polyuria Musculoskeletal Musculoskeletal: Reports none and other Details: Right shoulder pain ; Denies arthralgias, back pain, difficulty walking, extremity pain, muscle weakness or myalgias Integumentary Reports none; Denies abscess or rash Neurologic Neurologic: Reports none; Denies abnormal gait, confusion, focal weakness, frequent falls, headache(s), loss of vision, numbness, paresthesias, radicular pain, vertigo or weakness Psychiatric Psychiatric: Reports systems reviewed and no addt'l complaints, except as documented and none; Denies behavioral changes, confusion, difficulty concentrating, hallucinations, suicidal ideation, tactile hallucinations or visual hallucinations Endocrine Endocrinology: Denies none, cold intolerance, excessive sweating, fatigue or heat intolerance Hematologic/Lymphatic Hematologic/Lymphatic: Reports none; Denies anemia, easy bleeding or easy bruising Allergic/Immunologic Allergic/Immunologic ED: Denies as per HPI, none, lip swelling, mouth swelling, throat swelling, tongue swelling or hives EXAM Physical Exam Const Vital Signs: 10/23/21 08:20 Temperature 97.9 F Temperature Source Temporal Pulse Rate 64 Respiratory Rate 18 Blood Pressure 164/93 H Blood Pressure Mean 116 Pulse Ox 100 Oxygen Delivery Method Room Air Positive well nourished and well developed General Appearance ED: well developed and NAD HEENT Reports TM's clear and moist mucous membranes normocephalic and atraumatic; Negative for trauma or tenderness Tympanic Membrane ED: Yes TM's clear Eyes PERRL and EOMs intact bilaterally General Eye ED: Negative for pale conjunctiva or scleral icterus Neck no lymphadenopathy, supple and no JVD General: Negative for tenderness Chest Wall inspection of chest normal and palpation of chest normal Chest: Negative for tenderness Resp normal respiratory effort and clear to auscultation bilaterally Effort and Inspection: Negative for respiratory distress or pain with movement Auscultation: Negative for rhonchi, wheezes or diminished lung sounds Cardio regular rate, regular rhythm, S1 normal heart sound, S2 normal heart sound and no murmurs Peripheral Pulses: pulses 2+ throughout GI normal to inspection, nondistended, normoactive bowel sounds, soft to palpation, non-tender, non-distended and no masses Back/Spine no CVA tenderness and no thoracic nor lumbar tenderness Extremity Extremity Narrative: Evaluation of the right shoulder does reveal soft tissue swelling over the anterior glenohumeral joint. There is no sulcus sign noted. Patient able to put her arm behind her back. Patient able to abduct to about 100 degrees. Neurovascularly intact distally. General Extremety ED: Negative for edema General Extremity: Negative for edema Neuro oriented x3, CN's II-XII intact bilaterally, no sensory deficits noted and gait normal Sensorium / Orientation: awake, alert, oriented to person, oriented to place and oriented to time Motor Exam: strength 5/5 throughout and strength abnormal Psych mental status grossly normal Skin no rashes or lesions noted and no wounds MDM MDM MDM Narrative Medical decision making narrative: I was able to review the patient's x-rays that she had done as an outpatient. It does appear patient has a subluxation of the head of the humerus. I discussed case with orthopedic surgeon on-call Dr. Aleksandr Briseno who also reviewed the x-rays and asked that we obtain a axillary view to further determine if the shoulder is dislocated. After evaluation of the axillary views Dr. Aleksandr Briseno does not believe that patient has a dislocation but rather is subluxed and she would not benefit from any type of attempted reduction. He recommended she follow-up with our office with Dr. Gomez or Dr. Wilde to get evaluated for possible shoulder replacement. Patient is comfortable with plan. She does not want a sling. She is now anything for pain and states that really not been bothering her very much. Lab Data Attestation: I reviewed the patient's lab results. Discharge Plan Triage Chief Complaint: Disclocation ED Provider: Rick De León Dx/Rx/DC Orders Clinical Impression: Anterior subluxation of right shoulder Instructions: ED Shoulder Pain, Uncertain Cause Prescriptions: No Action celecoxib 200 mg capsule 200 mg PO DAILY RF: 0 lisinopril 20 mg tablet 20 mg PO DAILY RF: 0 Primary Care Provider: Rolf Peck Referrals: Rolf Peck MD [Primary Care Provider] - Tong Gomez DO [STAFF PHYSICIAN] - 3-5 Days Jimmy Wilde MD [STAFF PHYSICIAN] - 3-5 Days Disposition Disposition: Home, Self Care
[2021-10-23 10:29] VITALS: PULSE 60; RESP 16
== END 2021-10-23 10:30 | disposition home or self-care (01) ==
PROVIDERS: Emergency Provider Emergency Medicine; PCP Family Medicine; Visit Provider Emergency Medicine
DX: S43.011A Anterior subluxation of right humerus, initial encounter (principal); I10 Essential (primary) hypertension; X58.XXXA Exposure to other specified factors, initial encounter; Y93.9 Activity, unspecified; Y92.9 Unspecified place or not applicable; Z79.899 Other long term (current) drug therapy
CPT/HCPCS: 73030; 99282

== ENCOUNTER 2021-10-26 10:59 | Outpatient (CLI) | payer MEDICARE, OTHER, SELFPAY ==
[2021-10-26 13:01] LABS: Anion Gap 8 (5-15); BUN 22 mg/dL (7-18); BUN/Creat Ratio 34.1 RATIO (10-20); Calcium,Total 9.2 mg/dL (8.5-10.1); Chloride 93 mmol/L (98-107); Creatinine, Serum 0.64 mg/dL (0.55-1.02); EST Glomerular Filtration Rate 94 mL/min (>60); Est Glom Filt Rate - Afr Amer 114 mL/min (>60); Glucose 99 mg/dL (74-106); Potassium 4.2 mmol/L (3.5-5.1); Sodium Level 128 mmol/L (136-145)
== END 2021-10-26 23:59 | disposition home or self-care (01) ==
LOC: MFPLAB 11:00
PROVIDERS: PCP Family Medicine; Visit Provider Family Medicine
DX: E87.1 Hypo-osmolality and hyponatremia (principal)
CPT/HCPCS: 36415; 80048

== ENCOUNTER → 2021-12-30 | Outpatient (CLI) | payer MEDICARE, OTHER, SELFPAY ==
[2021-12-30 12:09] LABS: Urine Sodium 83 mmol/L (Not Establ.)
[2021-12-30 12:28] LABS: Anion Gap 7 (5-15); BUN 15 mg/dL (7-18); BUN/Creat Ratio 23.3 RATIO (10-20); Calcium,Total 8.4 mg/dL (8.5-10.1); Chloride 94 mmol/L (98-107); Creatinine, Serum 0.64 mg/dL (0.55-1.02); EST Glomerular Filtration Rate 95 mL/min (>60); Est Glom Filt Rate - Afr Amer 114 mL/min (>60); Glucose 97 mg/dL (74-106); Potassium 4.5 mmol/L (3.5-5.1); Sodium Level 129 mmol/L (136-145); Thyroid Stim Hormone (TSH) 1.29 uIU/mL (0.358-3.74)
[2021-12-30 12:32] LABS: Osmolality, Serum 272 mOsm/KG (280-301); Osmolality, Urine 406 mOsm/KG
== END | disposition home or self-care (01) ==
LOC: POLAB3 10:05
PROVIDERS: PCP Family Medicine; Visit Provider Internal Medicine Nephrology
DX: E87.1 Hypo-osmolality and hyponatremia (principal)
CPT/HCPCS: 36415; 80048; 83930; 83935; 84300; 84443

== ENCOUNTER → 2022-01-25 | Outpatient (CLI) | payer MEDICARE, OTHER, SELFPAY ==
[2022-01-19 18:37] LABS: Anion Gap 9 (5-15); BUN 22 mg/dL (7-18); Calcium,Total 9.5 mg/dL (8.5-10.1); Chloride 100 mmol/L (98-107); Creatinine, Serum 0.69 mg/dL (0.55-1.02); EST Glomerular Filtration Rate 88 mL/min (>60); Est Glom Filt Rate - Afr Amer 106 mL/min (>60); Glucose 94 mg/dL (74-106); Potassium 4.3 mmol/L (3.5-5.1); Sodium Level 135 mmol/L (136-145)
== END | disposition home or self-care (01) ==
LOC: POLAB3 10:03
PROVIDERS: PCP Family Medicine; Visit Provider Internal Medicine Nephrology
DX: E87.1 Hypo-osmolality and hyponatremia (principal)
CPT/HCPCS: 36415; 80048

== ENCOUNTER 2022-01-27 17:51 | Outpatient (CLI) | payer MEDICARE, OTHER, SELFPAY ==
--- NOTE | 2022-01-27 | FLU_PTH ---
PATIENT: GEORGINA LEONARD LOC: [facility] U#:[id number] AGE/SX: 81/F ROOM: RE01/27/[address]: Dr. Star Shafer DPM : [id number] BED: DIS: 01/27/2022 SPEC #: [id number] RECD: 01/28/22 10:38 STATUS: BONNY REShana #: [id number] JAMIE: 01/27/22 00:[address]: Star Shafer DEPT: CYTOLOGY RECD BY: Mandie More ENTERED: 01/28/22 10:40 SP TYPE: Fluid OTHR DR: Dr. Rolf Peck MD Tissues: Synovial fluid Procedures: Special Stain Group II Surgery Specimen Level IV Cytospin Fluid HEADER OPERATION: Not noted PRE-OP DIAGNOSIS: Ganglion cyst and osteoarthritis right foot/ankle TISSUE SUBMITTED: Right ankle synovial fluid DIAGNOSIS CYTOLOGY Right ankle synovial fluid (cytospin and cell block): Negative for malignant cells. Marked acute inflammation. AM:lebron 01/29/2022 CYTOLOGY STUDY Slides are reviewed. CYTOLOGY GROSS Received is 3 ml of angel cloudy fluid labeled with the patient's name and and designated per the requisition as right ankle. Submitted for cytology preparation including cell block. / lebron 01/28/2022 TC:2 CPT: 94323, 60831
[2022-01-27 18:01] LABS: Cytology, Body Fluid / CSF SEE PATHOLOGY REPORT; Pathologist Comment May follow
[2022-01-27 19:10] LABS: AUTO B FLUID DILUENT BKGD CT WBC <0.1 RBC <0.01 (W<.1,R<.01)
[2022-01-27 19:15] LABS: Source- Body Fluid SYNOVIAL
[2022-01-27 19:16] LABS: Color / Synovial Fluid Yellow (Pale Yellow); Viscosity / Synovial Fluid Mod. Viscous (HIGH)
[2022-01-27 19:17] LABS: Appearance /Synovial Fluid Cloudy (CLEAR)
[2022-01-27 20:52] LABS: Lymph 2 %; Monocyte /Synovial Fluid 4 %; Neutrophil 94 % (0-25)
[2022-01-27 20:56] LABS: Body Fluid QC Type(s) BF1Q,BF2Q
[2022-01-28 12:58] LABS: Pathologist Review Reviewed
== END 2022-01-27 23:59 | disposition home or self-care (01) ==
PROVIDERS: PCP Family Medicine; Referring Provider Podiatrist; Visit Provider Podiatrist
DX: M67.471 Ganglion, right ankle and foot (principal); M19.071 Primary osteoarthritis, right ankle and foot
CPT/HCPCS: 88108; 88305; 88313; 89050; 89051; 89060

== ENCOUNTER → 2022-02-13 | Outpatient (CLI) | payer MEDICARE, OTHER, SELFPAY ==
--- NOTE | 2022-02-13 08:30 | MRI_ITS ---
STUDY: MRI RIGHT ANKLE WITHOUT CONTRAST REASON FOR EXAM: Anterior soft tissue mass of the right ankle, lateral posterior foot pain. TECHNIQUE: Standardized fat and water weighted pulse sequences were obtained in all 3 orthogonal planes. COMPARISON: None. FINDINGS: There is edema in the medial and lateral subcutis adipose space. There is a very small volume of fluid in the submalleolar posterior tibialis tendon sheath (inversion recovery sagittal image 4). The posterior tibialis tendon is morphologically normal. Normal flexor digitorum longus tendon. Normal flexor hallucis longus tendon. There is a longitudinal split with a C shaped configuration of the retromalleolar peroneus brevis tendon (T1 axial images 8-16). There is mild bone edema in the os peroneum and bone edema of the adjacent plantar lateral aspect of the cuboid (inversion recovery sagittal image 13). There is no tear of the peroneus longus tendon. Normal tibialis anterior tendon. Normal extensor hallucis longus tendon. There is fluid in the extensor digitorum longus tendon sheath (T2 axial images 9-23). Normal Achilles tendon and teno-osseous insertion. Normal plantar fascia. Normal plantar calcaneal tubercles. There is mild atrophy with mild partial fat replacement of the abductor minimi muscle (T1 sagittal images 13, 14). Normal distal tibiofibular syndesmotic ligamentous complex. There is a chronic partial tear of the anterior talofibular ligament (T2 axial image 17). Normal calcaneofibular and posterior talofibular ligaments. There is mild edema in the sinus tarsi (inversion recovery sagittal images 12-15). There is a chronic partial tear of the deltoid ligament (T2 coronal image 16). Normal plantar calcaneonavicular (spring) ligament. There is a tibiotalar joint effusion (inversion recovery sagittal image 11). There is an osteochondral lesion of the superior aspect of the medial talar dome (T1 sagittal image 9) measuring approximately 1.4 x 0.6 cm (AP x transverse) with cystic change/bone edema of the fragment (T2 coronal images 16, 17). Normal subtalar articulations. There is bone edema of the medial neck of the talus, medial calcaneal body/sustentaculum vicky and dorsal aspect of the head of the talus (inversion recovery sagittal images 7-10), a stress phenomenon. There are small dorsal osteophytes at the talonavicular articulation. Normal calcaneocuboid articulation. Normal navicular-cuneiform articulations. There is chronic fracture deformity without osseous union and cystic change at the base of the fifth metatarsal (T1 axial images 29, 30) and arthrosis of the fifth tarsometatarsal articulation with chondral thinning (T1 sagittal image 15). MRI/Lower Ext Joint Only (Routine) IMPRESSION: Extensor digitorum longus tenosynovitis, accounting for the anterior soft tissue mass. Longitudinal split of the peroneus brevis tendon. Bone edema of the os peroneum and adjacent cuboid. Osteochondral lesion of the medial talar dome. Chronic partial tear of the anterior talofibular ligament. Chronic partial tear of the deltoid ligament. Chronic fracture deformity without osseous union of the base of the fifth metatarsal and arthrosis of the fifth tarsometatarsal articulation. Very mild posterior tibialis tenosynovitis. Bone edema of the talus and calcaneus, a stress phenomenon. Mild atrophy of the abductor digiti minimi muscle. Tibiotalar joint effusion. Electronically Signed: Aleksandr Rhodes MD at 8:42 EDT ,
== END | disposition home or self-care (01) ==
LOC: MRI 08:05
PROVIDERS: PCP Family Medicine; Visit Provider Podiatrist
DX: R22.41 Localized swelling, mass and lump, right lower limb (principal)
CPT/HCPCS: 73721

== ENCOUNTER 2022-05-19 10:24 | Emergency (ER) | payer MEDICARE, OTHER, SELFPAY ==
[2022-05-19 10:25] VITALS: BP 191/101; PULSE 62; RESP 18; TEMP 35.8; O2SAT 94; BMI 21.4
--- NOTE | 2022-05-19 10:33 | EKG12_ITS ---
Test Reason : CP Blood Pressure : / mmHG Vent. Rate : 062 BPM Atrial Rate : 062 BPM P-R Int : 168 ms QRS Dur : 092 ms QT Int : 428 ms P-R-T Axes : 051 -22 030 degrees QTc Int : 434 ms Normal sinus rhythm Normal ECG Confirmed by VIV LYMAN, MICKEY ([id number]), sports editor JORGE DRAKE ([id number]) on 05/21/2022 9:47:31 AM Referred By: PETER Confirmed By:MICKEY NAM MD
--- NOTE | 2022-05-19 10:33 | ED.VIS.CHEST ---
HPI History of Present Illness Chief Complaint: Chest Pain Narrative Narrative: Patient with past medical history of hypertension, denies coronary artery disease presents with left-sided chest pain that began this morning at approximately 6:30 AM. It did not wake her from sleep. She states yesterday everything was fine but after she woke up this morning she noticed bleeding chest pain on the left side that might radiate towards her back. She describes it more as a discomfort that only lasts a few seconds. It comes and goes every few minutes. She denies any exacerbating or alleviating factors. No nausea or vomiting. No fevers or chills. No cough. No diaphoresis or shortness of breath. She is being seen by Dr. Gomez for dislocated shoulder, and states that they were mildly insisted that she come to the ED. She has already taken her lisinopril for her hypertension this morning. She denies any leg swelling. She does state that she is under a lot of stress recently in regards to the health of her . [facility] Medical History Hypertension Home Medications celecoxib 200 mg capsule 200 mg PO DAILY 10/23/21 [History Last Taken Unknown] lisinopril 20 mg tablet 20 mg PO DAILY 10/23/21 [History Last Taken Unknown] Allergy/AdvReac Type Severity Reaction Status Date / Time venom-honey bee Allergy Hives Verified 05/19/22 10:28 venom-wasp Allergy Hives Verified 05/19/22 10:28 prednisone AdvReac Other Verified 05/19/22 10:28 Social History Smoking Status: Never smoker ROS ROS ED ROS Narrative Constitutional: No fever, no chills. HEENT: No sore throat. No neck pain. No loss of vision. No rhinorrhea. Cardiovascular: Left-sided chest pain/discomfort. No palpitations. No pedal edema. Respiratory: No cough, no shortness of breath. Abdominal: No abdominal pain. No nausea. No vomiting. Genitourinary: No dysuria. No hematuria. Musculoskeletal: No myalgias. No arthralgias. Neurologic: No headaches. No dizziness. No lightheadedness. Skin: No rash. No change in color. Psychiatric: No depression. No anxiety. EXAM Physical Exam Narrative Exam Narrative: Afebrile. Vital signs noted. HEENT: Normocephalic. Atraumatic. PERRL, EOMI. Neck soft and supple. No point tenderness or step off. Cardiovascular: Regular rate and rhythm. No murmurs, rubs, or gallops appreciated. Respiratory: No tachypnea. Lungs clear to auscultation bilaterally. Gastrointestinal: Abdomen soft, nontender, with normoactive bowel sounds. No rebound or guarding. Neurological: Awake. Alert. Nonfocal, nonlateralizing. Skin: No rash. Normal color. No pallor. Musculoskeletal: No pedal edema. Full range of motion extremities. Const Vital Signs: 05/19/22 10:25 05/19/22 10:38 05/19/22 10:42 Temperature 96.5 F L Temperature Source Temporal Pulse Rate 62 Respiratory Rate 18 Respiratory Effort Normal Non-Labored Blood Pressure 191/101 H Blood Pressure Mean 131 Pulse Ox 94 99 Oxygen Delivery Method Room Air Room Air 05/19/22 12:32 05/19/22 13:03 Temperature Temperature Source Pulse Rate 66 71 Respiratory Rate 14 18 Respiratory Effort Blood Pressure 143/78 H 144/77 H Blood Pressure Mean 99 99 Pulse Ox 98 97 Oxygen Delivery Method Room Air Room Air Heart Score History: Slightly/Non-Suspicious ECG: Normal Age: >/= 65 years Risk Factors: 1 or 2 Risk Factors Troponin: </= Normal Limit Score: 3 MDM MDM MDM Narrative Medical decision making narrative: Chest pain work-up was pursued. She does have elevated blood pressure of 191/101. I did order hydralazine 10 mg intravenously. EKG demonstrates normal sinus rhythm at 62 bpm without ectopy or acute ST changes. No STEMI. CBC is grossly normal with WBC count of 7.2, hemoglobin normal at 13.0, normal platelet count of 327. Sodium is slightly low at 128 with chloride 93, BUN normal at 18 and creatinine 0.71. Patient states she is had problems with hyponatremia in the past when she was drinking too much water. She states that her water intake has been lessened this time. Her initial high-sensitivity troponin is 6. Her 2-hour troponin is 8 for a delta troponin less than 7. Chest x-ray interpreted by myself shows no acute process, no evidence of pneumonia or pneumothorax. Her blood pressure is now 144/77. She feels well and has not been having the chest pain. I do feel that she may have a slight stress/anxiety reaction happening. Regardless, I do feel she can be discharged safely home with follow-up to her primary care physician. Return instructions to the emergency department were reviewed. She will monitor her blood pressure. Disposition is discharged home in stable condition. Lab Data Attestation: I reviewed the patient's lab results. Labs: Laboratory Results - last 24 hr 05/19/22 05/19/22 05/19/22 10:31 10:31 12:56 WBC 7.2 RBC 3.82 L Hgb 13.0 Hct 37.3 MCV 97.6 MCH 34.0 H MCHC 34.9 RDW Std Deviation 47.9 H RDW Coeff of Cas 13.4 Plt Count 327 MPV 9.6 Immature Gran % (Auto) 0.300 Neut % (Auto) 57.3 Lymph % (Auto) 30.5 Daniels % (Auto) 9.6 Eos % (Auto) 1.7 Baso % (Auto) 0.6 Absolute Neuts (auto) 4.1 Absolute Lymphs (auto) 2.19 Nucleated RBC % 0 Sodium 128 L Potassium 4.3 Chloride 93 L Carbon Dioxide 26.0 Anion Gap 9 BUN 18 Creatinine 0.71 Estim Creat Clear Calc 39.39 Est GFR (MDRD) Af Amer 103 Est GFR (MDRD) Non-Af 85 BUN/Creatinine Ratio 25.5 H Glucose 100 Calcium 9.3 Troponin I High Sens 6 8 Radiography Diagnostic Testing: Clinical Impression(s) from Imaging Studies Chest X-Ray 05/19/22 10:40 IMPRESSION: Borderline cardiomegaly. The lungs are clear. Electronically Signed: Rashel Vieira MD at 10:53 EDT , Discharge Plan Triage Chief Complaint: Chest Pain ED Provider: Glenn Dutton Dx/Rx/DC Orders Clinical Impression: Chest pain, Stress reaction, Hypertension Instructions: ED Anxiety Reaction, ED Chest Pain, Noncardiac, ED Hypertension, Established Prescriptions: No Action celecoxib 200 mg capsule 200 mg PO DAILY lisinopril 20 mg tablet 20 mg PO DAILY Primary Care Provider: Rolf Peck Referrals: Rolf Peck MD [Primary Care Provider] - 3-5 Days Disposition Disposition: Home, Self Care
[2022-05-19 10:38] VITALS: O2SAT 99
[2022-05-19] MEDS: Aspirin 81 MG TAB.CHEW 324 MG PO (10:40)
--- NOTE | 2022-05-19 10:40 | RAD_ITS ---
STUDY: X-RAY CHEST REASON FOR EXAM: Female, 81 years old. Chest pain TECHNIQUE: Single AP portable view of the chest. COMPARISON: None. FINDINGS: EKG electrodes are seen. The lungs are clear and expanded. There is no demonstrated pleural abnormality. There is borderline cardiomegaly. Normal mediastinum and vicky. Normal visualized pulmonary arteries. There is atherosclerotic calcification of the aortic arch with tortuosity. There are diffuse degenerative changes of the visualized thoracic spine. Dextroscoliosis. There is degenerative osteoarthritis of the bilateral shoulders. There is no demonstrated abnormality of the visualized soft tissue structures of the upper abdomen. RAD/Chest 1 View (Portable) IMPRESSION: Borderline cardiomegaly. The lungs are clear. Electronically Signed: Rashel Vieira MD at 10:53 EDT ,
[2022-05-19] MEDS: hydrALAZINE 20 MG/ML Vial 10 MG IV (10:41)
[2022-05-19 10:43] LABS: Absolute Lymphocyte Count 2.19 X10^3/uL (0.83-4.51); Absolute Neutrophil Count 4.1 X10^3/uL (2.0-7.7); Basophil# 0.04 X10^3/uL; Basophil% 0.6 % (0-1); Eosinophil# 0.12 X10^3/uL; Eosinophils% 1.7 % (0-5); Hematocrit 37.3 % (37-47); Lymphocyte # 2.19 X10^3/ul (0.83-4.51); Lymphocyte % 30.5 % (19-41); Mean Corp Hgb Conc 34.9 g/dL (32-36); Mean Corpuscular Volume 97.6 fL (81-99); Mean Platelet Vol. 9.6 fl (6.2-12.0); Monocyte# 0.69 X10^3/uL; Monocyte% 9.6 % (0-10); NRBC Flagged by Analyzer 0 % (0-5); Neutrophil # 4.12 X10^3/uL (2.7-7.7); Neutrophil % 57.3 % (47-70); Platelet Count 327 K/mm3 (150-450); RBC Distribution Width CV 13.4 % (11.6-14.6); RBC Distribution Width SD 47.9 fl (35.1-43.9); Red Blood Count 3.82 M/mm3 (4.2-5.4); White Blood Count 7.2 K/mm3 (4.4-11.0)
[2022-05-19 10:57] LABS: Anion Gap 9 (5-15); BUN 18 mg/dL (7-18); BUN/Creat Ratio 25.5 RATIO (10-20); Calcium,Total 9.3 mg/dL (8.5-10.1); Chloride 93 mmol/L (98-107); Creatinine, Serum 0.71 mg/dL (0.55-1.02); EST Glomerular Filtration Rate 85 mL/min (>60); Est Glom Filt Rate - Afr Amer 103 mL/min (>60); Estimated Creatinine Clearance 39.39 ml/min; Glucose 100 mg/dL (74-106); Potassium 4.3 mmol/L (3.5-5.1); Sodium Level 128 mmol/L (136-145); Troponin-I HS (w/2H Reflex) 6 pg/mL (3.0-54.0)
[2022-05-19 12:32] VITALS: BP 143/78; PULSE 66; RESP 14; O2SAT 98
[2022-05-19 12:37] LABS: Reflex Troponin-HS? (from REC) Y
[2022-05-19 13:03] VITALS: BP 144/77; PULSE 71; RESP 18; O2SAT 97
[2022-05-19 13:19] LABS: Troponin-I HS 8 pg/mL (3.0-54.0)
[2022-05-19 13:49] VITALS: BP 146/81; PULSE 68; RESP 20; O2SAT 98
== END 2022-05-19 14:11 | disposition home or self-care (01) ==
PROVIDERS: Emergency Provider Emergency Medicine; PCP Family Medicine; Visit Provider Emergency Medicine
DX: R07.9 Chest pain, unspecified (principal); F43.9 Reaction to severe stress, unspecified; I10 Essential (primary) hypertension; Z79.899 Other long term (current) drug therapy
CPT/HCPCS: 71045; 80048; 84484; 85025; 93005; 96374; 99285; A4216

== ENCOUNTER → 2022-06-09 | Outpatient (CLI) | payer MEDICARE, OTHER, SELFPAY ==
[2022-06-09 12:24] LABS: Mucous, Urine 0 SEEN /hpf (<or=2+)
[2022-06-09 15:18] LABS: Color, Urine Straw (Yellow); Glucose, Dipstick Normal (Normal); Ketone-Dipstick Negative (Negative); Leukocyte Esterase-Dipstick 500 /ul (Negative); Nitrite-Dipstick Negative (Negative); Occult Blood-Urine 10 /ul (Negative); Protein-Dipstick Negative (Negative); Urine Bilirubin Dipstick Negative (Negative); Urine Clarity Clear (Clear); Urine Urobilinogen Normal (Normal)
[2022-06-09 15:34] LABS: Absolute Lymphocyte Count 1.48 X10^3/uL (0.83-4.51); Basophil# 0.03 X10^3/uL; Basophil% 0.5 % (0-1); Eosinophil# 0.13 X10^3/uL; Eosinophils% 2.1 % (0-5); Hematocrit 34.5 % (37-47); Hemoglobin 12.4 g/dL (12.0-15.0); Lymphocyte # 1.48 X10^3/ul (0.83-4.51); Lymphocyte % 24.3 % (19-41); Mean Corp Hgb Conc 35.9 g/dL (32-36); Mean Corpuscular Hgb 33.4 pg (27.0-32.0); Mean Platelet Vol. 10.2 fl (6.2-12.0); Monocyte# 0.49 X10^3/uL; NRBC Flagged by Analyzer 0 % (0-5); Neutrophil # 3.95 X10^3/uL (2.7-7.7); Neutrophil % 64.9 % (47-70); Platelet Count 283 K/mm3 (150-450); RBC Distribution Width CV 13.1 % (11.6-14.6); RBC Distribution Width SD 44.8 fl (35.1-43.9); Red Blood Count 3.71 M/mm3 (4.2-5.4); White Blood Count 6.1 K/mm3 (4.4-11.0)
[2022-06-09 15:35] LABS: Bacteria 1+ /hpf (None Seen); Red Blood Cells-Urine 5-10 SEEN /hpf (0-5); Squamous Epithelial Cells - UA 0-5 SEEN /hpf (5-10); White Blood Cells 5-10 SEEN /hpf (0-5)
[2022-06-09 16:42] LABS: ALB/GLOB Ratio 1.2 RATIO (0.9-2.4); AST(SGOT) 19 U/L (15-37); Alanine Aminotransfer ALT/SGPT 24 U/L (13-56); Albumin, Serum 3.7 g/dL (3.2-5.0); Alkaline Phosphatase 32 U/L (45-117); Anion Gap 8 (5-15); BUN 20 mg/dL (7-18); BUN/Creat Ratio 26.4 RATIO (10-20); Calcium,Total 9.3 mg/dL (8.5-10.1); Chloride 100 mmol/L (98-107); Cholesterol 212 mg/dL (200); Creatinine, Serum 0.76 mg/dL (0.55-1.02); EST Glomerular Filtration Rate 78 mL/min (>60); Est Glom Filt Rate - Afr Amer 94 mL/min (>60); Globulin 3.2 g/dL (2.2-4.2); Glucose 94 mg/dL (74-106); High Density Lipoprotein 119 mg/dL; Potassium 4.7 mmol/L (3.5-5.1); Protein, Total 6.9 g/dL (6.4-8.2); Sodium Level 132 mmol/L (136-145); Thyroid Stim Hormone (TSH) 0.95 uIU/mL (0.358-3.74); Triglycerides 52 mg/dL; Uric Acid 4.6 mg/dL (2.6-6.0); Very Low Density Lipoprotein 10 mg/dL (5-40)
== END | disposition home or self-care (01) ==
LOC: MFPLAB 12:21
PROVIDERS: PCP Family Medicine; Referring Provider Family Medicine; Visit Provider Family Medicine
DX: I10 Essential (primary) hypertension (principal); M10.9 Gout, unspecified
CPT/HCPCS: 36415; 80053; 80061; 81001; 84443; 84550; 85025

== ENCOUNTER → 2022-06-16 | Outpatient (CLI) | payer MEDICARE, OTHER, SELFPAY ==
--- NOTE | 2022-06-16 | CYSPIN_PTH ---
PATIENT: GEORGINA LEONARD LOC: [facility] U#:[id number] AGE/SX: 81/F ROOM: RE06/16/[address]: Dr. Rolf Peck MD : 1940 BED: DIS: 06/16/2022 SPEC #: [id number] RECD: 06/16/22 15:00 STATUS: BONNY KINGSTON #: [id number] JAMIE: 06/16/22 00:[address]: Rolf Peck DEPT: CYTOLOGY RECD BY: Sekou Guerra Tissues: Urine Procedures: Pap Stain (control) Special Stain Group II Cytospin Fluid HEADER OPERATION: Not noted PRE-OP DIAGNOSIS: Hematuria TISSUE SUBMITTED: Urine for cytology DIAGNOSIS CYTOLOGY Urine for cytology (cytospin): Negative for high-grade urothelial carcinoma (NHGUC), (Sasha System Category II). Acute inflammation. See comment. MAT:lebron 06/17/2022 COMMENT The Sasha System for urine cytology diagnostic categorization was used in the evaluation of this case. CYTOLOGY STUDY Slides are reviewed. CYTOLOGY GROSS Received is 70 ml of hazy yellow fluid labeled with the patient's name and and designated per the requisition as urine. Submitted for cytology preparation. / lebron 06/16/2022 TC:2 CPT: 63094
[2022-06-16 11:39] LABS: Cytology, Body Fluid / CSF SEE PATHOLOGY REPORT
== END | disposition home or self-care (01) ==
LOC: LABSPEC 11:37
PROVIDERS: PCP Family Medicine; Referring Provider Family Medicine; Visit Provider Family Medicine
DX: R31.9 Hematuria, unspecified (principal)
CPT/HCPCS: 87086; 87088; 88108; 88313

== ENCOUNTER → 2022-06-22 | Outpatient (CLI) | payer MEDICARE, OTHER, SELFPAY ==
--- NOTE | 2022-06-22 13:55 | CT_ITS ---
INDICATION: [id number] BLUEPRINT EXAMINATION: CT BONE - CT Shoulder W/O Contrast Injection TECHNIQUE: Helically acquired images were obtained of the right shoulder. 2-D reformats were performed by the technologist. A radiation dose optimization technique was used for this scan. IV Contrast dosage and agent: None. COMPARISON: None. FINDINGS: SOFT TISSUES: Large shoulder effusion with amorphous calcifications anteriorly and laterally to the humeral head. No radiopaque foreign body. BONES/JOINTS: No acute fracture. Chronic appearing avulsion fracture of the anterior and inferior glenoid labrum. Total loss of the cerebrum subacromial joint space. Degenerative irregularity of the humeral head and glenoid labrum. CT/Extremity Upper without Contra IMPRESSION: Rotator cuff arthropathy. Calcific tendinitis with shoulder effusion. Chronic avulsion fracture of the anteroinferior glenoid labrum. Electronically Signed: Kye Espinosa MD at 17:13 EDT ,
== END | disposition home or self-care (01) ==
LOC: CT 13:47
PROVIDERS: PCP Family Medicine; Visit Provider Student in an Organized Health Care Education/Training Program
DX: M19.011 Primary osteoarthritis, right shoulder (principal)
CPT/HCPCS: 73200

== ENCOUNTER → 2022-06-25 | Outpatient (CLI) | payer MEDICARE, OTHER, SELFPAY ==
[2022-06-25 12:33] LABS: Anion Gap 7 (5-15); BUN 17 mg/dL (7-18); BUN/Creat Ratio 24.7 RATIO (10-20); Chloride 96 mmol/L (98-107); Creatinine, Serum 0.69 mg/dL (0.55-1.02); EST Glomerular Filtration Rate 87 mL/min (>60); Est Glom Filt Rate - Afr Amer 106 mL/min (>60); Glucose 94 mg/dL (74-106); Potassium 4.1 mmol/L (3.5-5.1); Sodium Level 130 mmol/L (136-145)
== END | disposition home or self-care (01) ==
LOC: MFPLAB 10:39
PROVIDERS: PCP Family Medicine; Referring Provider Family Medicine; Visit Provider Family Medicine
DX: E87.1 Hypo-osmolality and hyponatremia (principal)
CPT/HCPCS: 36415; 80048

== ENCOUNTER → 2022-09-13 | Outpatient (CLI) | payer MEDICARE, OTHER, SELFPAY ==
[2022-09-13 12:51] LABS: Anion Gap 7 (5-15); BUN 15 mg/dL (7-18); BUN/Creat Ratio 24.1 RATIO (10-20); Calcium,Total 9.4 mg/dL (8.5-10.1); Chloride 98 mmol/L (98-107); Creatinine, Serum 0.62 mg/dL (0.55-1.02); EST Glomerular Filtration Rate 98 mL/min (>60); Est Glom Filt Rate - Afr Amer 119 mL/min (>60); Glucose 97 mg/dL (74-106); Potassium 4.6 mmol/L (3.5-5.1); Sodium Level 133 mmol/L (136-145)
== END | disposition home or self-care (01) ==
PROVIDERS: PCP Family Medicine; Referring Provider Family Medicine; Visit Provider Family Medicine
DX: E87.1 Hypo-osmolality and hyponatremia (principal)
CPT/HCPCS: 36415; 80048

== ENCOUNTER 2022-09-30 13:15 | Observation (INO) | payer MEDICARE, OTHER, SELFPAY ==
[2022-09-07 14:51] LABS: Absolute Lymphocyte Count 1.75 X10^3/uL (0.83-4.51); Absolute Neutrophil Count 3.8 X10^3/uL (2.0-7.7); Basophil# 0.05 X10^3/uL; Basophil% 0.8 % (0-1); Eosinophil# 0.26 X10^3/uL; Eosinophils% 4.1 % (0-5); Hematocrit 34.4 % (37-47); Hemoglobin 12.1 g/dL (12.0-15.0); Lymphocyte # 1.75 X10^3/ul (0.83-4.51); Lymphocyte % 27.4 % (19-41); Mean Corp Hgb Conc 35.2 g/dL (32-36); Mean Corpuscular Hgb 34.2 pg (27.0-32.0); Mean Corpuscular Volume 97.2 fL (81-99); Mean Platelet Vol. 9.1 fl (6.2-12.0); Monocyte# 0.56 X10^3/uL; Monocyte% 8.8 % (0-10); NRBC Flagged by Analyzer 0 % (0-5); Neutrophil # 3.76 X10^3/uL (2.7-7.7); Neutrophil % 58.7 % (47-70); Platelet Count 348 K/mm3 (150-450); RBC Distribution Width CV 13.7 % (11.6-14.6); RBC Distribution Width SD 49.7 fl (35.1-43.9); Red Blood Count 3.54 M/mm3 (4.2-5.4); White Blood Count 6.4 K/mm3 (4.4-11.0)
[2022-09-07 15:07] LABS: Anion Gap 6 (5-15); BUN 21 mg/dL (7-18); BUN/Creat Ratio 31.5 RATIO (10-20); Calcium,Total 9.4 mg/dL (8.5-10.1); Chloride 95 mmol/L (98-107); Creatinine, Serum 0.67 mg/dL (0.55-1.02); EST Glomerular Filtration Rate 91 mL/min (>60); Est Glom Filt Rate - Afr Amer 110 mL/min (>60); Glucose 89 mg/dL (74-106); Potassium 4.7 mmol/L (3.5-5.1); Sodium Level 129 mmol/L (136-145)
[2022-09-07 17:37] LABS: Hemoglobin A1c 5.6 % (3.8-5.6)
--- NOTE | 2022-09-22 11:30 | RAD_ITS ---
STUDY: X-RAY CHEST REASON FOR EXAM: Female, 81 years old. PREOP TECHNIQUE: XR Chest 2 Views COMPARISON: 05.19.22 FINDINGS: There is atherosclerotic calcification of the aortic arch with tortuosity. There are diffuse degenerative changes of the visualized thoracic spine. There is degenerative osteoarthritis of the bilateral shoulders. There is no demonstrated pleural abnormality. Scoliosis of the thoracolumbar spine. Normal size heart. Normal mediastinum and vicky. Normal visualized pulmonary arteries. There is no demonstrated abnormality of the visualized soft tissue structures of the upper abdomen. RAD/Chest PA and Lateral IMPRESSION: There are no acute findings. Electronically Signed: Humberto Irene MD at 17:02 EST ,
[2022-09-22 12:05] LABS: Magnesium 2.2 mg/dL (1.6-2.6)
[2022-09-30] VITALS (12 sets, daily range): BP systolic 134–157; BP diastolic 66–87; PULSE 56–66; RESP 16–18; TEMP 36.1–36.7; O2SAT 96–99; BMI 20.2
[2022-09-30] MEDS: Lactated Ringers 1,000 ML 999 ML IV ×2 (09:24→13:51)
[2022-09-30] MEDS: Magnesium 1 GM over 15 mins IV (09:25)
[2022-09-30] MEDS: Acetaminophen 500 MG Tablet 1000 MG PO ×2 (09:26→21:07)
[2022-09-30] MEDS: Gabapentin 600 MG Tablet PO (09:26)
[2022-09-30 10:05] LABS: Bedside Glucose 86 mg/dL (74-106)
[2022-09-30] MEDS: Cefazolin 2 GM in 0.9% Normal Saline 100 ML IV (11:05)
[2022-09-30] MEDS: TXA 1000mg in NS100 100ml (IVPB at Incision) 660 MG IV (11:10)
--- NOTE | 2022-09-30 11:10 | SHO_PTH ---
PATIENT: GEORGINA LEONARD LOC: [facility] U#:[id number] AGE/SX: 81/F ROOM: [facility] RE09/30/[address]: Dr. Tong Gomez DO : 1940 BED: 1 DIS: 10/01/2022 SPEC #: [id number] RECD: 09/30/22 16:54 STATUS: BONNY RAMIREZShana #: [id number] JAMIE: 09/30/22 11:[address]: Tong Gomez DEPT: SURGICAL PATHOLOGY RECD BY: Sekou Guerra ENTERED: 10/01/22 09:10 SP TYPE: HUMERUS OTHR DR: Dr. Rolf Peck MD Tissues: Humerus, NOS Procedures: Decalcification bone/plaque Surgery Specimen Level IV HEADER OPERATION: ERAS, total shoulder replacement PRE-OP DIAGNOSIS: Osteoarthritis right shoulder; strain of muscle and tendons of rotator cuff TISSUE SUBMITTED: Humeral head bone MICROSCOPIC DIAGNOSIS Bone and tissue of right shoulder, total shoulder replacement: Severe degenerative joint disease. AM:lebron 10/06/2022 MICROSCOPIC DESCRIPTION Slides are reviewed. GROSS DESCRIPTION Received is one container designated right humeral bone. The specimen consists of a discoid fragment of larson bone measuring 4.5 x 4.5 x 2 cm. The articular surface displays prominent bone erosion. A account development representative section is submitted in one cassette after decalcification. / AM:lebron 10/01/2022 TC:5 CPT: 50347, 06387
[2022-09-30] MEDS: dexAMETHasone 10 MG/ML Vial IV (11:15)
[2022-09-30] MEDS: TXA 1000mg in NS100 100ml (IVPB at Closure) 660 MG IV (13:00)
--- NOTE | 2022-09-30 13:14 | RAD_ITS ---
STUDY: X-RAY - RIGHT SHOULDER REASON FOR EXAM: Female, 81 years old. Post op -- AP and Lateral X-Ray of operative shoulder in PACU TECHNIQUE: 2 view(s) of the shoulder. COMPARISON: Comparison is made with prior study of 10/23/2021. FINDINGS: The patient status post right reverse shoulder replacement. There is good alignment. Postoperative soft tissue changes. RAD/Shoulder min 2 Views IMPRESSION: Status post right reverse shoulder replacement. There is good alignment. Postoperative soft tissue changes. Electronically Signed: Rashel Vieira MD at 14:18 EST ,
[2022-09-30] MEDS: Lactated Ringers 1,000 ML 125 ML IV (14:41)
--- NOTE | 2022-09-30 16:47 | OP.PCM_ITS ---
Report of Operation Date of Procedure: 09/30/22 Description of Surgical Findings:: Preoperative diagnosis: Right shoulder rotator cuff arthropathy Postoperative diagnosis: Right shoulder rotator cuff arthropathy Procedure: Left reverse total shoulder arthroplasty Surgeon: Tong Gomez DO Potato Chip Sorter: TIFFANY Roche Anesthesia: General endotracheal with interscalene block Multimedia Specialist: Edvin Foss CRNA Complications: None apparent Drains: None Estimated blood loss: 200 cc Urinary output: None IV fluids: 1200 cc crystalloid Specimens: None Surgical implants: Tornier PerFORM+ patient matched custom augmented baseplate 25 mm diameter, standard glenosphere cobalt chrome 39 mm diameter, Tornier perform inlay stem size #2, + 6 mm size number 2 39 mm diameter polyethylene insert, 25 millimeters central post and peripheral screws x4. Surgical indications: This is a 81-year-old female with longstanding history of right shoulder pain. She saw her primary care physician approximately 9 months ago where x-rays were obtained. She was referred to me as outpatient consultation. An MRI was obtained due to concern of anterior subluxation of the humeral head. She appeared to have longstanding rotator cuff tears with severe deficiency of her anterior glenoid and anteversion of the glenoid of approximately 40 degrees. I recommended a reverse shoulder arthroplasty. We obtained a preoperative CT scan for planning. Given the amount of deformity, [id number] augmented wedges were unable to sufficiently augment her anterior bone loss. I elected to proceed with a custom augmented wedge which was templated via [employer] software. The risks, benefits, alternatives the procedure was reviewed with the patient and he agreed to proceed. Risks included but were not limited to bleeding, infection, instability, loss of life or limb, risk of anesthesia, neurovascular injury, persistent pain, stiffness, prolonged immobilization, need for additional surgery, loosening of orthopedic hardware. She expressed understanding and wished to proceed with surgery. Surgical details: Patient arrived to [facility] morning of the procedure and was greeted by the same day surgery staff. Prior to her procedure, I greeted the patient in the preoperative holding area I identified the patient by name, record number, and date of . Informed consent was confirmed. The operative extremity was marked. All questions were answered to patient satisfaction. An interscalene block was administered prior to procedure by anesthesia staff for postoperative and intraoperative analgesia. At time of her procedure, patient was brought to the operative suite and positioned supine on a standard table with a beachchair attachment. General anesthesia was induced after all bony prominences were well-padded. Endotracheal tube was placed. After adequate anesthesia and securing the tube, we prepared the patient to be positioned in the beachchair position. A well- padded head waiter was applied. The nonoperative extremity was placed in a well arm nunez. She was then brought into the beachchair position after we confirmed an appropriate blood pressure. We then spun the bed 45 degrees. The operative extremity was then prepared. The butterfly wing of the bed was removed and a well-padded torso strap was applied to secure the patient to the bed. The operative extremity was now free. We then prepped and draped the right upper extremity in normal, sterile orthopedic fashion. We then performed a timeout with all parties in attendance in agreement with the side, site, and operation be performed. 2 g Ancef was administered prior to incision by anesthesia staff, as well as 1 g TXA IV. No concerns were voiced and we elected to proceed. I first marked a standard deltopectoral incision just lateral to the coracoid process in line with the long axis of the humerus. Skin was sharply incised with 10 blade scalpel. I then dissected bluntly through the subcutaneous layers and found the fat stripe between the deltoid and pectoralis major. The cephalic vein was then identified and protected. It was retracted laterally with the deltoid. I then bluntly dissected underneath the deltoid with a Preciado elevator. Analilia retractor was placed. The upper 1 cm of the pectoralis major was released. I then identified the long head of the biceps tendon in the intertubercular groove. This was tenodesed in situ with #2 FiberWire. I then amputated the biceps proximal to the tenodesis site and followed the tendon to the supraglenoid tubercle where it was amputated. I then performed a subscapularis peel while rotating the humerus externally. I tagged the subscapularis for possible repair later with a tagging suture. Humeral head was then dislocated anteriorly. Appropriate access to the humeral head was confirmed. I then subluxed the humeral head posteriorly with a Fukuda retractor placed around the posterior lip of the glenoid. Inferior capsule was tension. I was able to palpate the axillary nerve. Inferior capsule was then released to the 4 o'clock position of the glenoid face. 3 sided subscapularis release was performed with Bovie cautery. I then remove the Fukuda retractor and redislocated the shoulder anteriorly. I then made a anatomic neck cut of the cartilaginous surface of the humeral head. Sizing plate for a size # 2 stem was utilized to determine appropriate reaming size. A central pin was placed engaging the lateral cortex of the humerus. A size #2 reamer was used to ream the humeral metaphysis and prepare for the inlay stem. A canal finding reamer was utilized prior to sequential broaching to a size #2 short stem with excellent rotational and axial purchase in the humerus. I remove the broach handle left the size #[address] I then subluxed the humerus posterior to the glenoid. I then placed retractors around the posterior and anterior glenoid to expose the glenoid. Large anterior deficiency of the glenoid was noted. Remaining glenoid labrum was removed with Bovie cautery protecting the axillary nerve. Any remaining cartilage along the face of the glenoid was removed with a ring curette. We then used the custom guide from [employer] to position our centering pin. A derotation guidepin was then placed at approximately the 2 o'clock position within the guide. Guide was removed and pin was analyzed and compared to preoperative planning. It appeared to be in appropriate position, sitting flush with the glenoid face. I utilized the cannulated central post drill to drill to 25 mm. Drill and center pin was removed. Post was assembled to the custom baseplate on the back table. Derotation guidewire was utilized to position the augment appropriately and subsequently impacted with complete contact along the glenoid face. There is excellent purchase with the press-fit central post. I then drilled for the 4 peripheral screws. The superior 2 screws were drilled first allowed compression across the glenoid face and subsequent inferior to locking screws were placed. Glenosphere was then impacted over top of the baseplate on the Finney taper and central screw was tightened with excellent purchase. We then removed retractors and turned our attention back to the humerus. Her bone was quite soft and a small degree of bone loss was noted while retracting the humerus during glenosphere insertion. I elected to insert a plus size #2 stem for better purchase. I trialed a +3 and subsequently +6 mm polyethylene insert. The +6 mm insert improved the deltoid wrap and strap muscle tension. There is excellent stability in all planes of motion. Final dislocation was performed. Wound was copiously irrigated normal saline solution. I packed cancellous bone from the humeral head into the humeral shaft. Plus size #2 humeral stem was then impacted to planned depth and rotation. There is excellent rotational and axial stability of the humeral stem. A +6 mm polyethylene standard insert was then impacted. Final reduction was performed. Range of motion was again excellent without evidence of bony impingement through normal range of motion. The subscapularis was then identified with a tagging suture. Repair would have been likely under undue tension and likely failed. I elected to not perform a subscapularis repair. We then copiously irrigated the wound with sterile Betadine and normal saline solution. We reapproximated the interval with 0 Vicryl suture. Subcutaneous layers were reapproximated with 2 -0 Vicryl suture. Skin was finally running V- Loc 3-0 Monocryl suture and Dermabond. A sterile silver Mepilex dressing was applied. Patient was then placed in an ultra sling. Patient tolerated procedure well without complication. She was positioned back in the supine position extubated in the operative suite. She was transferred to the [place] and subsequently to PACU in stable condition. Intraoperative medications: 2 g Ancef IV, 1 g TXA IV x2 Post Operative Plan: Patient will be placed in observation overnight. If uneventful stay tonight, patient will be discharged home under care of her family. She plans to stay with her daughter until she is independent enough to return home where she lives independently. Weightbearing: Nonweightbearing right upper extremity, okay for pendulums. Range of motion of wrist elbow and hand as tolerated. Antibiotics: 2 g Ancef IV prior to incision, 24 hours IV antibiotics postopera tively DVT Prophylaxis: Aspirin enteric-coated 81 mg twice daily starting tomorrow David: None Dressing: Maintain silver dressing x7 days. Okay to shower dressing on started on day 4 X-Rays: 2 weeks postop in the office Pain Medication: Oxycodone Rx upon discharge Follow-up: 2 weeks post-operatively with me in the office
[2022-09-30] MEDS: 0.9% NaCl Peripheral Flush Adult/Peds IV (18:01)
[2022-09-30] MEDS: Cefazolin 1 GM/50 ML BAG IV (18:01)
[2022-09-30] MEDS: Senna/Docusate Sodium 1 Tablet 2 TABLET PO (21:07)
[2022-10-01] MEDS: oxyCODONE 5 MG Tablet PO ×2 (01:08→08:42)
[2022-10-01] MEDS: Cefazolin 1 GM/50 ML BAG IV (02:51)
[2022-10-01 02:59] VITALS: BP 162/83; PULSE 62; RESP 18; TEMP 37.2; O2SAT 96
[2022-10-01 03:04] VITALS: PULSE 62
[2022-10-01] MEDS: Acetaminophen 500 MG Tablet 1000 MG PO (05:22)
--- NOTE | 2022-10-01 07:30 | PN.ORTHO_ITS ---
Subjective Subjective Patient seen and examined. She reports she is doing well. She states nerve block is worn off. She states her pain is controlled with current pain regimen. Denies fevers, chills, nausea vomiting, chest pain or shortness of breath. Objective Data Objective Data Vital Signs: Vital Signs Temp Pulse Resp BP Pulse Ox O2 Del Method O2 Flow Rate 98.9 F 62 18 162/83 H 96 Room Air 4 10/01/22 02:59 10/01/22 03:04 10/01/22 02:59 10/01/22 02:59 10/01/22 02:59 10/01/22 02:59 09/30/22 14:41 Oxygen Flow Rate (L/min) 4 Oxygen Delivery Method Room Air Weight: 118 lb Body Mass Index (BMI) 20.2 Intake & Output: Intake and Output for Last 24 Hours 09/29/22 09/30/22 10/01/22 23:59 23:59 23:59 Intake Total 4483.75 / 4483.75 181.5 / 181.5 Balance 4483.75 / 4483.75 181.5 / 181.5 Lab / Micro Data Result Diagrams: 09/07/22 11:55 09/07/22 11:55 Labs: Laboratory Results - last 24 hr 09/30/22 09:18: POC Glucose 86 Micro: Microbiology 09/07/22 11:55 Nasal Secretion Nasal Screen MRSA/MSSA - Final Radiography Diagnostic Testing: Radiology Impression Shoulder X-Ray 09/30/22 13:14 IMPRESSION: Status post right reverse shoulder replacement. There is good alignment. Postoperative soft tissue changes. Electronically Signed: Rashel Vieira MD at 14:18 EST , Physical Exam Narrative General - A&Ox3, NAD. VSS/AF. Right upper Extremity - SILT & 5/5 in radial, ulnar, musculocutaneous, axilla ry, and median nerve distributions. Radial, ulnar pulses 2+. Compartments soft and compressible. BCR in finger tips. Incisional dressing C/D/I. UltraSling in place. Calves are soft and nontender bilaterally Assessment & Plan Assessment/Plan (1) Post-op pain: PLAN: POD#1 s/p right reverse shoulder arthroplasty -Patient doing well this morning. Pain is controlled. - Pain control - OT - DVT PPX -Multimodal with SCDs, early mobilization, aspirin 81 mg twice daily, LUCIA johnson - Case management - D/C planning. Patient would benefit from home health care occupational therapy as her current plan is to stay with her daughter until independence is improved and transition back to home independent living. Once therapy goals are met, we will plan on discharge home later today.
[2022-10-01 07:44] LABS: Hematocrit 29.8 % (37-47); Hemoglobin 10.1 g/dL (12.0-15.0); Mean Corp Hgb Conc 33.9 g/dL (32-36); Mean Corpuscular Hgb 33.2 pg (27.0-32.0); Mean Platelet Vol. 9.5 fl (6.2-12.0); Platelet Count 274 K/mm3 (150-450); RBC Distribution Width CV 14.1 % (11.6-14.6); Red Blood Count 3.04 M/mm3 (4.2-5.4); White Blood Count 10.5 K/mm3 (4.4-11.0)
[2022-10-01 08:05] LABS: Anion Gap 5 (5-15); BUN 11 mg/dL (7-18); BUN/Creat Ratio 21.6 RATIO (10-20); Calcium,Total 8.3 mg/dL (8.5-10.1); Chloride 102 mmol/L (98-107); Creatinine, Serum 0.51 mg/dL (0.55-1.02); EST Glomerular Filtration Rate 123 mL/min (>60); Est Glom Filt Rate - Afr Amer 149 mL/min (>60); Estimated Creatinine Clearance 37.74 ml/min; Glucose 109 mg/dL (74-106); Potassium 4.1 mmol/L (3.5-5.1); Sodium Level 134 mmol/L (136-145)
[2022-10-01] MEDS: Aspirin E.C. 81 MG Tablet PO (08:43)
[2022-10-01 08:58] VITALS: BP 132/89; PULSE 59; RESP 18; TEMP 36.3; O2SAT 97
--- NOTE | 2022-10-01 09:40 | CASEMGMT ---
Addendum entered by Norma Riggs 10/01/22 10:20: Received returned call from Jewell at [facility], PT will see pt tomorrow. Pt aware. Original Note: DAWN DODSON Assessment: Face to Face with pt for initial transition planning/care coordination assessment. DAWN DODSON introduced self and role at [facility], pt voices understanding and consents to assessment. Pt is A/O x4 and answers all questions appropriately at this time. Pt sitting up in chair dressed in no distress. Care providers, pharmacy, and demographics verified/updated. Admitting Dx: R total shoulder PCP:[facility] Specialists:patty Gomez; susanne Shafer Preferred Pharmacy: [facility] Retail Insurance: Mobi, Hum[employer] Prescription Benefit: yes LNOK: Ita Boo dtr; nava Casanova Living Arrangements: Pt lives alone in a single story home with a ramp in the front and 2 steps to the garage with a grab bar. Pt reports she was I in ADL's prior to surgery. Pt states is at [place]. Transportation: Pt drives self and denies concerns with transportation. Pt plans to use [facility] transportation and has names of private hire drivers post surgery. DME/HHC/SNF: Pt has a cane, walker and shower chair at home. Pt denies hx of HHC or SNF stays. Pt states no concerns with going home at time of dc. She plans to stay with her dtr Ita Boo for approx 1 week. Pt agreeable to having HHC. Explained PT and OT services and expectations. Patient was provided a list of [facility] providers including quality and resource use data and consistent with the patient?s preferred geographic region, medical needs, and insurance network were provided from the [employer] Guide. Pt chose [facility]. Pt plans to do outpt therapy after 2 week appt with . Pt states no further concerns/needs. CM to follow. Advised pt to ask CM if any further question/concerns/needs arise, voices understanding. Pt Goal: Dtr's home with HHC Plan: Dtr's home with HHC TC to Jewell at [facility], referral made. Awaiting acceptance. Message to , ok for PT and OT in the home.
--- NOTE | 2022-10-01 10:20 | CASEMGMT ---
DAWN CM in to discuss FINE form with patient. RN CM explained FINE form, patient voiced understanding. Pt signed form and filed in chart. Pt provided with a copy of signed FINE form. Patient had no further questions or concerns at this time.
[2022-10-01] MEDS: Lisinopril 20 MG Tablet PO (10:42)
[2022-10-01] MEDS: Celecoxib 200 MG Capsule PO (10:42)
[2022-10-01] MEDS: Famotidine 20 MG Tablet PO (10:42)
[2022-10-01] MEDS: Senna/Docusate Sodium 1 Tablet 2 TABLET PO (10:42)
--- NOTE | 2022-10-01 12:04 | PCM.DC.SUM ---
Providers Date of Admission: 09/30/22 Primary Care Physician: Dr. Rolf Peck MD Reason For Visit: RT REVERSE TOTAL SHOULDER/ ADD LABS Diagnosis Discharge Diagnosis (1) Post-op pain: Status: Acute Code(s): G89.18 - Other acute postprocedural pain Plan: POD#1 s/p right reverse shoulder arthroplasty -Patient doing well this morning. Pain is controlled. - Pain control - OT - DVT PPX -Multimodal with SCDs, early mobilization, aspirin 81 mg twice daily, LUCIA johnson - Case management - D/C planning. Patient would benefit from home health care occupational therapy as her current plan is to stay with her daughter until independence is improved and transition back to home independent living. Once therapy goals are met, we will plan on discharge home later today. Medications at Discharge Home Medications celecoxib 200 mg capsule 200 mg PO DAILY 10/23/21 lisinopril 20 mg tablet 20 mg PO DAILY 10/23/21 acetaminophen 325 mg tablet (Tylenol) 650 mg PO Q4H PRN Pain 09/20/22 calcium carbonate 600 mg-vitamin D3 5 mcg (200 unit) tablet 1 tab PO DAILY 09/20/22 lorazepam 0.5 mg tablet 0.5 mg PO QHS PRN Sleep 09/20/22 multivit with vaasnkwd-sngp-ZO-lutein 8 mg iron-400 mcg-300 mcg tablet (Multivitamin Women 50 Plus) 1 tab PO DAILY 09/20/22 psyllium 1 packet PO DAILY 09/20/22 aspirin 81 mg tablet,delayed release 81 mg PO BID 28 days #56 tabs 10/01/22 famotidine 20 mg tablet 20 mg PO DAILY 30 days #30 tabs 10/01/22 oxycodone 5 mg tablet 5 - 10 mg PO Q4H PRN PRN Pain Score 4-10 7 days #42 tabs 10/01/22 sennosides 8.6 mg-docusate sodium 50 mg tablet (Stool Softener-Stimulant Laxative) 2 tab PO BID 7 days #28 tabs 10/01/22 Hospital Course Summary of Care Provided Minutes Spent on Discharge: 15 Hospital Course: Patient underwent uncomplicated right reverse shoulder arthroplasty 09/30/22. She tolerated the procedure well without apparent complication. She is placed in observation overnight for the early convalescence and rehab. She did well in the immediate postoperative course. She was seen by both physical and occupational therapies. Home health care PT/OT was arranged. No medical or surgical complications were encountered throughout her stay. She was able to be safely discharged home with home health care on postoperative day #1. Physical Exam Narrative General - A&Ox3, NAD. VSS/AF. Right upper Extremity - SILT & 5/5 in radial, ulnar, musculocutaneous, axillary, and median nerve distributions. Radial, ulnar pulses 2+. Compartments soft and compressible. BCR in finger tips. Incisional dressing C/D/I. UltraSling in place. Calves are soft and nontender bilaterally Weight / BMI Weight Weight: 118 lb Body Mass Index (BMI) 20.2 ABG / Lab / Microbiology Data Result Diagrams: 10/01/22 07:10 10/01/22 07:10 Laboratory: Laboratory Results - last 24 hr 10/01/22 07:10: WBC 10.5, RBC 3.04 L, Hgb 10.1 L, Hct 29.8 L, MCV 98.0, MCH 33.2 H, MCHC 33.9, RDW Std Deviation 51.0 H, RDW Coeff of Cas 14.1, Plt Count 274, MPV 9.5 10/01/22 07:10: Sodium 134 L, Potassium 4.1, Chloride 102, Carbon Dioxide 27.0, Anion Gap 5, BUN 11, Creatinine 0.51 L, Estim Creat Clear Calc 37.74, Est GFR (MDRD) Af Amer 149, Est GFR (MDRD) Non-Af 123, BUN/Creatinine Ratio 21.6 H, Glucose 109 H, Calcium 8.3 L Microbiology: Microbiology 09/07/22 11:55 Nasal Secretion Nasal Screen MRSA/MSSA - Final Radiography Diagnostic Testing: Radiology Impression Shoulder X-Ray 09/30/22 13:14 IMPRESSION: Status post right reverse shoulder replacement. There is good alignment. Postoperative soft tissue changes. Electronically Signed: Rashel Vieira MD at 14:18 EST , Meaningful Use Info Meaningful Use Diagnoses (Choose all that apply): None applicable Discharge Plan Admission Admit Date/Time: 09/30/22 13:15 Primary Reason for Your Visit: Right shoulder replacement Attending Provider: Tong Gomez Primary Care Provider: Rolf Peck Instructions Additional Instructions / Restrictions: Follow preprinted instructions from your surgeons office. Discharge Orders/Prescriptions Prescriptions: New sennosides-docusate sodium [Stool Softener-Stimulant Laxat] 8.6-50 mg Tablet 2 tab PO BID 7 Days Qty: 28 0RF famotidine 20 mg Tablet 20 mg PO DAILY 30 Days Qty: 30 0RF oxycodone 5 mg Tablet 5 - 10 mg PO Q4H PRN PRN (Reason: Pain Score 4-10) 7 Days Qty: 42 0RF aspirin 81 mg Tablet,Delayed Release (Dr/Ec) 81 mg PO BID 28 Days Qty: 56 0RF Continued celecoxib 200 mg capsule 200 mg PO DAILY lisinopril 20 mg tablet 20 mg PO DAILY acetaminophen [Tylenol] 325 mg Tablet 650 mg PO Q4H PRN (Reason: Pain) calcium carbonate-vitamin D3 600 mg-5 mcg (200 unit) Tablet 1 tab PO DAILY lorazepam 0.5 mg Tablet 0.5 mg PO QHS PRN (Reason: Sleep) Multivitamin Women 50 Plus 8 mg iron-400 mcg-300 mcg Tablet 1 tab PO DAILY psyllium Packet 1 packet PO DAILY Rx Instructions: mix into at least 8 oz of water or juice before administering Referrals / Follow Up: Rolf Peck MD [Primary Care Provider] - Tong Gomez DO [Med Staff - Active Staff] - Disposition Disposition (needs filled in before D/C Order can be placed): Home Health Service
[2022-10-01 13:44] VITALS: BP 140/73; PULSE 70; RESP 18; TEMP 37; O2SAT 98
== END 2022-10-01 13:48 | disposition home health service (06) ==
LOC: SDC 15:53 → MS3 15:53
PROVIDERS: Anesthesiology; Admitting Provider Student in an Organized Health Care Education/Training Program; PCP Family Medicine; Referring Provider Student in an Organized Health Care Education/Training Program; Visit Provider Student in an Organized Health Care Education/Training Program
PROC: (CPT 23472; principal; 2022-09-30 10:40)
DX: M19.011 Primary osteoarthritis, right shoulder (principal); I10 Essential (primary) hypertension; Z86.16 Personal history of COVID-19; Z87.891 Personal history of nicotine dependence; S46.011D Strain of muscle(s) and tendon(s) of the rotator cuff of right shoulder, subsequent encounter; X58.XXXD Exposure to other specified factors, subsequent encounter; S43.011 Anterior subluxation of right humerus
CPT/HCPCS: 23472; 01638; 64415; 36415; 71046; 73030; 80048; 82962; 83036; 83735; 85025; 85027; 87081; 88305; 88311; 94668; 96365; 96366; 97161; 97166; 99221; 99252; C1713; C1776; J7050; J7120; A4216; G0378; G0463; J2405; J3475

== ENCOUNTER 2022-11-25 11:00 | Outpatient (RCR) | payer MEDICARE, OTHER, SELFPAY ==
--- NOTE | 2022-10-18 13:17 | HP.PTEVAL ---
Patient's Visit Information GEORGINA LEONARD is a 81 year old F referred to Physical Therapy by Dr. Tong Gomez DO with a diagnosis of Right Reverse Total Shoulder 09/30/22. Date of Evaluation: 10/18/22 Physical Therapist: Cheli Sosa DPT - Visit Plan Frequency: 2x /Week Duration: 4 Weeks Plan: Reverse Total Shoulder 09/30/22- protocol in folder. HEP Given IE: Posture, Sling Use, Pendulums, Elbow, Table Walk Away, ER with Cane. PT called MD office due to fall- talked to nurse who reported she would return my call after she spoke to MD or call pt directly- did not call during evaluation. - Subjective Sep 30 she had a right [place] Total Shoulder by Dr. Gomez- she stayed at the hospital overnight and then stayed at her daughters for a week. She lives alone fully I prior to surgery. Right hand dominate. She loves to be outside and be active. Her is in [place]- she goes to see him whenever she can- so her most important is be indep. Worst: 5/10 Agg: movements. She is wearing her sling- but does take it off for the exercises- she took a shower without incidence yesterday. She takes her cat and dog for a walk- about 30 minutes. Eases: relaxation Best: 0/10 Pain is located in the back- does not radiate- her hand still has a little numbness but is improving. Describes the shoulder pain as dull and achy. Her neck is a little sore- she knows she has some OA in it. No TOLLIVER, blurred vision or dizziness. She is taking Tylenol PRN- she is not taking any Oxy. Sleep: in bed without an issue. Did have home health- they gave her pendulums, hand exercises, elbow flexion/extn. PMHX/Meds: no changes since leaving [facility]. - Objective Posture: pillow sling- guarding of the right UE. Gait: no arm swing or trunk rotation. Palpation: not tender to touch. ROM: Elbow/Wrist/Hand: WFL, Shoulder PROM: flexion: 100 degrees, Abd: 90 degrees, IR: to belly, ER: 10 degrees. Strength: Elbow/Wrist/Hand: WFl 5/5, Shoulder Isometric: not tested due to protocol. Observation: incision healing well no s/s of infection per pt report and MD saw on Tuesday. - Balance/Special Test Scores Quick DASH Score: 59.0900 - Goals Goal 1:: Patient will be I with HEP and progression Goal Time Frame: 4-6 Weeks Goal 2:: Patient will demo AROM WFL in the right shoulder Goal Time Frame: 4-6 Weeks Goal 3:: Patient will maintain proper posture t/o tx session to demo increased scap s/s Goal Time Frame: 4-6 Weeks Goal 4:: Patient will report 80% improvement Goal Time Frame: 4-6 Weeks - Rehabilitation Potential Physical Therapy Diagnosis: Patient presents with hypomobility- she has decreased ROM, UE and scapular strength/stabilization, and muscular endurance leading to poor posture and dec ability to perform ADL's. Rehabilitation Potential: Good - Anticipated Interventions Patient/Client Instruction: Educate patient on: Benefits of Fitness Program Therapeutic Exercise to Include: Strength training, Endurance training, Coordination, Agility training, Body mechanics, Postural training, Flexibilty training, Neuromotor development, Passive ROM, Active ROM, Dynamic Lumbar Stabilization, Scapular Strength/Stabilization For the Purpose of:: To improve muscle performance and motor function Thank you for the opportunity to evaluate your patient. For Medicare and Medicare HMO plans, please review the plan of care and approve it. It will need to be FAXED BACK to us at [phone] for Medicare purposes. For Medicare only, by signing this I certify the plan of care. Please let me know if there are questions or concerns regarding this plan of care. Physician Signature: Date:
--- NOTE | 2023-03-21 13:13 | HP.PTDCNRP_ITS ---
Patient Information Patient Information: GEORGINA LEONARD was seen in my office for initial evaluation on 10/18/22. The following Plan of Care was established for this patient: POC Established Initial Frequency: 2x /Week Initial Duration: 4 Weeks Anticipated Interventions Patient/Client Instruction: Educate patient on: Benefits of Fitness Program Therapeutic Exercise to Include: Strength training, Endurance training, Coordination, Agility training, Body mechanics, Postural training, Flexibilty training, Neuromotor development, Passive ROM, Active ROM, Dynamic Lumbar St abilization and Scapular Strength/Stabilization For the Purpose of:: To improve muscle performance and motor function Last Seen Last Seen: This patient was last seen in our office . Pertinent comments regarding their Physical therapy will appear below: Pt has not attended PT in over 8 weeks- appropriate to be d/c and return to MD as needed. At this point I will be discontinuing this patient from physical therapy. I would be happy to see this patient again in the future if found appropriate by the physician. Thank you! Cheli Sosa, [place] Balance/Gait/Functional tests Balance/Special Test Scores Quick DASH Score: [phone]
== END 2022-11-25 19:00 | disposition home or self-care (01) ==
LOC: PT 11:00
PROVIDERS: PCP Family Medicine; Referring Provider Student in an Organized Health Care Education/Training Program; Visit Provider Student in an Organized Health Care Education/Training Program
DX: M19.011 Primary osteoarthritis, right shoulder (principal); Z96.611 Presence of right artificial shoulder joint; Z47.1 Aftercare following joint replacement surgery
CPT/HCPCS: 97110; 97140; 97162

== ENCOUNTER 2022-11-29 15:27 | Emergency (ER) | payer MEDICARE, OTHER, SELFPAY ==
[2022-11-29 15:27] VITALS: BP 156/82; PULSE 71; RESP 16; TEMP 36.3; O2SAT 99; BMI 20.5
--- NOTE | 2022-11-29 16:35 | ED.RN ---
PT ARRIVED WITH ORDER FROM CHUY'S OFFICE. SHE DID NOT REALIZE THAT SHE WAS SUPPPOSED TO CALL TOMORROW TO SET UP A TIME DUE TO THE CT SCANNER BEING DOWN. PT DID NOT GET CLEAR INSTRUCTIONS PRIOR TO ARRIVAL . PT STATES SHE WOULD LIKE TO LEAVE AND NOT BE SEEN BY AN ED DOC.
== END 2022-11-29 17:08 | disposition left against medical advice (07) ==
LOC: ED 17:08
PROVIDERS: PCP Family Medicine
DX: S49.91XA Unspecified injury of right shoulder and upper arm, initial encounter (principal); X58.XXXA Exposure to other specified factors, initial encounter; Z53.21 Procedure and treatment not carried out due to patient leaving prior to being seen by health care provider

== ENCOUNTER → 2022-11-30 | Outpatient (CLI) | payer MEDICARE, OTHER, SELFPAY ==
--- NOTE | 2022-11-30 10:04 | CT_ITS ---
STUDY: CT SCAN RIGHT SHOULDER. REASON FOR EXAM: Female, 81 years old. DISLOCATION. Prior reverse right shoulder replacement. RADIATION DOSAGE (If Supplied By Facility): CTDIvol = ( 24.58 ) mGy, DLP = ( 526.75 ) mGycm. Individualized dose optimization techniques were used for this CT.? TECHNIQUE: Multiple axial tomographic images were obtained without intravenous contrast demonstration. Coronal and sagittal reconstruction was obtained as well. COMPARISON: Comparison is made with prior study June 22, 2022. FINDINGS: A right reverse shoulder replacement is in situ. There is a lateral and inferior dislocation of the prosthetic joint. No fracture is seen. CT/Extremity Upper without Contra IMPRESSION: Lateral and inferior dislocation of the prosthetic joint. Electronically Signed: Rashel Vieira MD at 12:22 EDT ,
== END | disposition home or self-care (01) ==
LOC: CT 09:56
PROVIDERS: PCP Family Medicine; Visit Provider Student in an Organized Health Care Education/Training Program
DX: S43.084A Other dislocation of right shoulder joint, initial encounter (principal); Z96.611 Presence of right artificial shoulder joint
CPT/HCPCS: 73200

== ENCOUNTER → 2022-12-01 | Outpatient (CLI) | payer MEDICARE, OTHER, SELFPAY ==
[2022-12-01 13:31] LABS: Absolute Neutrophil Count 6.5 X10^3/uL (2.0-7.7); Basophil# 0.05 X10^3/uL; Basophil% 0.5 % (0-1); Eosinophil# 0.54 X10^3/uL; Eosinophils% 5.7 % (0-5); Hematocrit 28.5 % (37-47); Hemoglobin 9.5 g/dL (12.0-15.0); Lymphocyte % 15.8 % (19-41); Mean Corp Hgb Conc 33.3 g/dL (32-36); Mean Corpuscular Hgb 32.2 pg (27.0-32.0); Mean Corpuscular Volume 96.6 fL (81-99); Mean Platelet Vol. 8.7 fl (6.2-12.0); Monocyte# 0.79 X10^3/uL; Monocyte% 8.3 % (0-10); NRBC Flagged by Analyzer 0 % (0-5); Neutrophil # 6.54 X10^3/uL (2.7-7.7); Neutrophil % 69.2 % (47-70); Platelet Count 604 K/mm3 (150-450); RBC Distribution Width CV 13.4 % (11.6-14.6); RBC Distribution Width SD 48.2 fl (35.1-43.9); Red Blood Count 2.95 M/mm3 (4.2-5.4); White Blood Count 9.5 K/mm3 (4.4-11.0)
[2022-12-01 14:24] LABS: Vitamin D,25 Hydroxy 43.4 ng/mL
[2022-12-01 14:32] LABS: ALB/GLOB Ratio 0.7 RATIO (0.9-2.4); AST(SGOT) 17 U/L (15-37); Alanine Aminotransfer ALT/SGPT 23 U/L (13-56); Albumin, Serum 2.9 g/dL (3.2-5.0); Alkaline Phosphatase 82 U/L (45-117); Anion Gap 8 (5-15); BUN 23 mg/dL (7-18); BUN/Creat Ratio 36.2 RATIO (10-20); Calcium,Total 9.1 mg/dL (8.5-10.1); Chloride 99 mmol/L (98-107); Cholesterol 139 mg/dL (200); Creatinine, Serum 0.64 mg/dL (0.55-1.02); EST Glomerular Filtration Rate 96 mL/min (>60); Est Glom Filt Rate - Afr Amer 116 mL/min (>60); Globulin 3.9 g/dL (2.2-4.2); Glucose 91 mg/dL (74-106); High Density Lipoprotein 72 mg/dL; Potassium 4.5 mmol/L (3.5-5.1); Protein, Total 6.8 g/dL (6.4-8.2); Sodium Level 133 mmol/L (136-145); Thyroid Stim Hormone (TSH) 0.95 uIU/mL (0.358-3.74); Triglycerides 69 mg/dL; Uric Acid 5.1 mg/dL (2.6-6.0); Very Low Density Lipoprotein 14 mg/dL (5-40)
== END | disposition home or self-care (01) ==
LOC: MFPLAB 12:09
PROVIDERS: PCP Family Medicine; Referring Provider Family Medicine; Visit Provider Family Medicine
DX: I10 Essential (primary) hypertension (principal); M10.9 Gout, unspecified; M85.80 Other specified disorders of bone density and structure, unspecified site
CPT/HCPCS: 36415; 80053; 80061; 82306; 84443; 84550; 85025

== ENCOUNTER → 2022-12-03 | Outpatient (CLI) | payer MEDICARE, OTHER, SELFPAY ==
[2022-12-03 11:28] LABS: Mucous, Urine 0 SEEN /hpf (<or=2+)
[2022-12-03 12:19] LABS: Color, Urine Yellow (Yellow); Glucose, Dipstick Normal (Normal); Ketone-Dipstick Negative (Negative); Leukocyte Esterase-Dipstick 100 /ul (Negative); Nitrite-Dipstick Negative (Negative); Occult Blood-Urine 25 /ul (Negative); Protein-Dipstick 15 mg/dl (Negative); Specific Gravity, Urine 1.015 (1.002-1.030); Urine Bilirubin Dipstick Negative (Negative); Urine Clarity Clear (Clear); Urine Urobilinogen Normal (Normal)
[2022-12-03 12:32] LABS: Bacteria 1+ /hpf (None Seen); Red Blood Cells-Urine 0-5 SEEN /hpf (0-5); Squamous Epithelial Cells - UA 0-5 SEEN /hpf (5-10); White Blood Cells 5-10 SEEN /hpf (0-5)
[2022-12-03 12:48] LABS: Ferritin 239 ng/mL (8-252); Iron 22 ug/dL (50-170); Iron Binding Capacity,Total 232 ug/dL (250-450)
[2022-12-03 12:51] LABS: Vitamin B12 1100 pg/mL (211-911)
[2022-12-04 14:20] LABS: Transferrin 195 mg/dL (192-364)
== END | disposition home or self-care (01) ==
LOC: LAB 11:24
PROVIDERS: PCP Family Medicine; Referring Provider Family Medicine; Visit Provider Family Medicine
DX: D64.9 Anemia, unspecified (principal); I10 Essential (primary) hypertension
CPT/HCPCS: 36415; 81001; 82607; 82728; 83540; 83550; 84466

== ENCOUNTER → 2023-01-04 | Outpatient (CLI) | payer MEDICARE, OTHER, SELFPAY ==
[2023-01-04 15:34] LABS: Absolute Lymphocyte Count 1.96 X10^3/uL (0.83-4.51); Absolute Neutrophil Count 4.1 X10^3/uL (2.0-7.7); Basophil# 0.06 X10^3/uL; Basophil% 0.9 % (0-1); Eosinophil# 0.34 X10^3/uL; Hematocrit 28.7 % (37-47); Hemoglobin 9.2 g/dL (12.0-15.0); Lymphocyte # 1.96 X10^3/ul (0.83-4.51); Lymphocyte % 28.6 % (19-41); Mean Corp Hgb Conc 32.1 g/dL (32-36); Mean Corpuscular Hgb 30.6 pg (27.0-32.0); Mean Corpuscular Volume 95.3 fL (81-99); Mean Platelet Vol. 9.3 fl (6.2-12.0); Monocyte# 0.39 X10^3/uL; Monocyte% 5.7 % (0-10); NRBC Flagged by Analyzer 0 % (0-5); Neutrophil # 4.09 X10^3/uL (2.7-7.7); Neutrophil % 59.7 % (47-70); Platelet Count 485 K/mm3 (150-450); RBC Distribution Width CV 15.2 % (11.6-14.6); RBC Distribution Width SD 52.8 fl (35.1-43.9); RET-HE 32.6 pg (30-35); Red Blood Count 3.01 M/mm3 (4.2-5.4); Reticulocyte Count 2.64 % (0.5-1.5); White Blood Count 6.9 K/mm3 (4.4-11.0)
[2023-01-04 16:33] LABS: Anion Gap 7 (5-15); BUN 22 mg/dL (7-18); BUN/Creat Ratio 29.3 RATIO (10-20); Calcium,Total 9.1 mg/dL (8.5-10.1); Chloride 104 mmol/L (98-107); Creatinine, Serum 0.75 mg/dL (0.55-1.02); EST Glomerular Filtration Rate 79 mL/min (>60); Est Glom Filt Rate - Afr Amer 95 mL/min (>60); Ferritin 109 ng/mL (8-252); Glucose 103 mg/dL (74-106); Iron 51 ug/dL (50-170); Iron Binding Capacity,Total 274 ug/dL (250-450); LDH 202 U/L (84-246); Potassium 4.4 mmol/L (3.5-5.1); Sodium Level 137 mmol/L (136-145)
[2023-01-04 17:08] LABS: Vitamin D,25 Hydroxy 59.4 ng/mL
[2023-01-06 08:12] LABS: Haptoglobin 211 mg/dL (42-346)
== END | disposition home or self-care (01) ==
LOC: MFPLAB 13:59
PROVIDERS: PCP Family Medicine; Visit Provider Family Medicine
DX: E87.1 Hypo-osmolality and hyponatremia (principal); D64.9 Anemia, unspecified; M85.80 Other specified disorders of bone density and structure, unspecified site
CPT/HCPCS: 36415; 80048; 82306; 82728; 83010; 83540; 83550; 83615; 85025; 85045

== ENCOUNTER 2023-02-11 12:22 | Emergency (ER) | payer MEDICARE, OTHER, SELFPAY ==
[2023-02-11] VITALS (12 sets, daily range): BP systolic 129–157; BP diastolic 76–98; PULSE 61–69; RESP 14–22; TEMP 36.4–36.9; O2SAT 91–97; BMI 23.0
--- NOTE | 2023-02-11 12:48 | RAD_ITS ---
STUDY: X-RAY - PELVIS AND RIGHT HIP REASON FOR EXAM: Female, 82 years old. Fall, pain TECHNIQUE: 3 views of the pelvis and hip. COMPARISON: None. FINDINGS: Large amount of fecal material is seen in the rectosigmoid colon. Normal visualized soft tissue structures. There is narrowing with cortical sclerosis and osteophyte formation of the sacroiliac joint consistent with degenerative osteoarthritic changes. Normal bilateral superior and inferior pubic rami. There is narrowing with sclerosis of the pubic symphysis. Normal bilateral ischial tuberosities. Comminuted right intertrochanteric fracture with cephalic migration of the distal fracture fragment. RAD/HIP, UNI W/ Pelvis 2-3 Views IMPRESSION: Comminuted right intertrochanteric fracture with superior migration of the distal fracture fragment. Electronically Signed: Rashel Vieira MD at 14:06 EDT ,
--- NOTE | 2023-02-11 12:54 | EX.ED.GENINJ ---
HPI <AMY Zarate - Last Filed: 02/11/23 20:13> History of Present Illness Chief Complaint: Fall Narrative Narrative: Presenting today after a fall that occurred early this morning. She reports that she woke up out of her sleep to go to the bathroom and tried to sit on the edge of the bed for a few seconds but got up and began to quickly move and did fall to the ground, hitting her head. There was no loss of consciousness, she is not on any blood thinners. She was unable to get up and did lay on the ground for over 6 hours until she was able to crawl and knock the phone down on the night stand. She reports that over the past few months she has been falling more frequently and just had a right shoulder surgery performed in December due to injuring it while falling. She reports pain to her right hip and right shoulder. Patient does live at home alone. She reports a past medical history of anemia that is being followed by her PCP. [facility] <AMY Zarate - Last Filed: 02/11/23 20:13> [facility] Medical History Alcohol use Ambulates with cane Anxiety Arthritis Back pain Constipation Former smoker History of echocardiogram History of fracture of leg History of pain when walking History of steroid therapy Hypertension Leg cramps Migraine headache Post-menopausal Wears glasses Home Medications celecoxib 200 mg capsule 200 mg PO DAILY 10/23/21 [History Last Taken 09/25/22] lisinopril 20 mg tablet 20 mg PO DAILY 10/23/21 [History Last Taken 09/30/22 06:30] acetaminophen 325 mg tablet (Tylenol) 650 mg PO Q4H PRN Pain 09/20/22 [History Last Taken 09/29/22] calcium carbonate 600 mg-vitamin D3 5 mcg (200 unit) tablet 1 tab PO DAILY 09/20/22 [History Last Taken 09/25/22] lorazepam 0.5 mg tablet 0.5 mg PO QHS PRN Sleep 09/20/22 [History Last Taken 09/30/22 06:30] multivit with iprykjtq-tsst-JD-lutein 8 mg iron-400 mcg-300 mcg tablet (Multivitamin Women 50 Plus) 1 tab PO DAILY 09/20/22 [History Last Taken 09/25/22] psyllium 1 packet PO DAILY 09/20/22 [History Last Taken 09/25/22] aspirin 81 mg tablet,delayed release 81 mg PO BID 28 days #56 tabs 10/01/22 [Rx Last Taken Unknown] famotidine 20 mg tablet 20 mg PO DAILY 30 days #30 tabs 10/01/22 [Rx Last Taken Unknown] oxycodone 5 mg tablet 5 - 10 mg PO Q4H PRN PRN Pain Score 4-10 7 days #42 tabs 10/01/22 [Rx Last Taken Unknown] sennosides 8.6 mg-docusate sodium 50 mg tablet (Stool Softener-Stimulant Laxative) 2 tab PO BID 7 days #28 tabs 10/01/22 [Rx Last Taken Unknown] Allergy/AdvReac Type Severity Reaction Status Date / Time venom-honey bee Allergy Hives Verified 02/11/23 12:22 venom-wasp Allergy Hives Verified 02/11/23 12:22 naproxen AdvReac Other Verified 02/11/23 12:23 prednisone AdvReac Other Verified 02/11/23 12:22 Surgical History Hx of colonoscopy Hx of left cataract extraction Hx of right cataract extraction Social History Smoking Status: Never smoker ROS <AMY Zarate - Last Filed: 02/11/23 20:13> ROS ED Constitutional Constitutional ED: Denies chills or fever(s) Cardiovascular Cardiovascular: Denies chest pain or palpitations Respiratory/Chest Respiratory/Chest: Denies cough or dyspnea Gastrointestinal Gastrointestinal: Denies abdominal pain, nausea or vomiting Genitourinary Genitourinary ED: Denies dysuria, hematuria or urinary urgency Musculoskeletal Musculoskeletal: Reports arthralgias; Denies back pain, myalgias or neck pain Integumentary Denies abscess, Abrasions or rash Neurologic Neurologic: Denies confusion or dizziness EXAM <AMY Zarate - Last Filed: 02/11/23 20:13> Physical Exam Const Vital Signs: 02/11/23 12:24 02/11/23 14:02 02/11/23 14:30 Temperature 97.5 F L Temperature Source Oral Pulse Rate 63 61 Respiratory Rate 14 17 Respiratory Effort Normal Non-Labored Blood Pressure 129/76 H 155/78 H Blood Pressure Mean 93 103 Pulse Ox 95 96 Oxygen Delivery Method Room Air Room Air 02/11/23 16:15 02/11/23 16:30 02/11/23 16:45 Temperature Temperature Source Pulse Rate 66 68 64 Respiratory Rate 18 21 H 14 Respiratory Effort Blood Pressure 148/84 H 144/90 H 149/82 H Blood Pressure Mean 105 107 103 Pulse Ox 96 97 96 Oxygen Delivery Method Room Air 02/11/23 17:00 02/11/23 17:15 02/11/23 17:30 Temperature Temperature Source Pulse Rate 63 66 Respiratory Rate 17 22 H Respiratory Effort Blood Pressure 140/86 H 146/85 H 153/84 H Blood Pressure Mean 103 103 105 Pulse Ox 95 93 Oxygen Delivery Method 02/11/23 17:45 02/11/23 18:00 02/11/23 18:45 Temperature 98.5 F Temperature Source Pulse Rate 63 69 66 Respiratory Rate 14 14 19 H Respiratory Effort Blood Pressure 143/81 H 145/82 H 150/97 H Blood Pressure Mean 99 102 113 Pulse Ox 93 91 93 Oxygen Delivery Method 02/11/23 19:00 Temperature Temperature Source Pulse Rate 64 Respiratory Rate 21 H Respiratory Effort Blood Pressure 157/98 H Blood Pressure Mean 117 Pulse Ox 94 Oxygen Delivery Method Room Air Positive well nourished, well developed and no apparent distress General Appearance ED: well developed HEENT Reports normocephalic and head/scalp atraumatic Mouth ED: Yes moist mucous membranes normal Eyes PERRL and EOMs intact bilaterally Neck full ROM and supple Chest Wall inspection of chest normal Resp normal respiratory effort and clear to auscultation bilaterally Cardio regular rate and regular rhythm GI soft to palpation, non-tender, non-distended and no masses Back/Spine normal ROM and normal to inspection Extremity Extremity Narrative: Decreased range of motion in the right hip, positive logroll on the right, pain to palpation to the right hip. DP pulses 2+ and equal bilaterally, good capillary refill, sensation intact. Radial pulses 2+ and equal bilaterally, full range of motion in the right shoulder. Neuro oriented x3, CN's II-XII intact bilaterally, moves all extremities, no focal motor deficits and no sensory deficits noted Sensorium / Orientation: awake and alert Psych mental status grossly normal and thought process normal Skin no rashes or lesions noted and no wounds <Dr. Tru Ashby MD - Last Filed: 02/11/23 17:23> Physical Exam Const Vital Signs: 02/11/23 12:24 02/11/23 14:02 02/11/23 14:30 Temperature 97.5 F L Temperature Source Oral Pulse Rate 63 61 Respiratory Rate 14 17 Respiratory Effort Normal Non-Labored Blood Pressure 129/76 H 155/78 H Blood Pressure Mean 93 103 Pulse Ox 95 96 Oxygen Delivery Method Room Air Room Air 02/11/23 16:15 02/11/23 16:30 02/11/23 16:45 Temperature Temperature Source Pulse Rate 66 68 64 Respiratory Rate 18 21 H 14 Respiratory Effort Blood Pressure 148/84 H 144/90 H 149/82 H Blood Pressure Mean 105 107 103 Pulse Ox 96 97 96 Oxygen Delivery Method Room Air 02/11/23 17:00 02/11/23 17:15 02/11/23 17:30 Temperature Temperature Source Pulse Rate 63 66 Respiratory Rate 17 22 H Respiratory Effort Blood Pressure 140/86 H 146/85 H 153/84 H Blood Pressure Mean 103 103 105 Pulse Ox 95 93 Oxygen Delivery Method 02/11/23 17:45 02/11/23 18:00 02/11/23 18:45 Temperature 98.5 F Temperature Source Pulse Rate 63 69 66 Respiratory Rate 14 14 19 H Respiratory Effort Blood Pressure 143/81 H 145/82 H 150/97 H Blood Pressure Mean 99 102 113 Pulse Ox 93 91 93 Oxygen Delivery Method 02/11/23 19:00 Temperature Temperature Source Pulse Rate 64 Respiratory Rate 21 H Respiratory Effort Blood Pressure 157/98 H Blood Pressure Mean 117 Pulse Ox 94 Oxygen Delivery Method Room Air MDM <AMY Zarate - Last Filed: 02/11/23 20:13> [facility] Narrative Medical decision making narrative: Patient presenting today after mechanical fall that occurred earlier this morning. She reports that she was walking to the bathroom and was moving too fast and was not using her cane when she fell, hit her head, and hurt her right shoulder and right hip. She was unable to ambulate and laid on the ground for 6 hours until she was able to knock a phone and call for help. She reports pain in her right hip as well as her right shoulder, these will be x-rayed to rule out fracture and dislocation. She does have a right intertrochanteric fracture. Head and neck CT will be obtained to rule out intracranial bleed and cervical fracture, head CT does show a small subdural hematoma. Patient has been given IV pain control and labs obtained to assess for anemia, leukocytosis, electrolyte abnormality. WBC 22.4, H&H 11.1 and 33. Sodium 135, BUN 23. CPK obtained to rule out rhabdomyolysis and is only slightly elevated. Given patient's subdural hematoma, she will be transferred to [facility] for further treatment and is comfortable with plan. Lab Data Labs: Laboratory Results - last 24 hr 02/11/23 02/11/23 14:00 14:00 WBC 22.4 H RBC 3.48 L Hgb 11.1 L Hct 33.0 L MCV 94.8 MCH 31.9 MCHC 33.6 RDW Std Deviation 59.5 H RDW Coeff of Cas 17.2 H Plt Count 307 MPV 9.7 Immature Gran % (Auto) 1.000 H Neut % (Auto) 70.7 H Lymph % (Auto) 4.3 L Taliaferro % (Auto) 5.0 Eos % (Auto) 18.9 H Baso % (Auto) 0.1 Absolute Neuts (auto) 15.8 H Absolute Lymphs (auto) 0.96 Nucleated RBC % 0 Platelet Estimate ADEQUATE RBC Morphology NORM C+C Sodium 135 L Potassium 3.8 Chloride 102 Carbon Dioxide 26.0 Anion Gap 7 BUN 23 H Creatinine 0.58 Estim Creat Clear Calc 38.75 Est GFR (MDRD) Af Amer 128 Est GFR (MDRD) Non-Af 106 BUN/Creatinine Ratio 39.5 H Glucose 133 H Calcium 8.5 Total Creatine Kinase 237 H Radiography X-Ray: Read by ED Physician and Read by Radiologist Diagnostic Testing: Clinical Impression(s) from Imaging Studies Hip/Pelvis X-Ray 02/11/23 12:48 IMPRESSION: Comminuted right intertrochanteric fracture with superior migration of the distal fracture fragment. Electronically Signed: Rashel Vieira MD at 14:06 EDT , Brain CT 02/11/23 13:31 IMPRESSION: Small acute subdural hematoma involving the cerebral falx. Electronically Signed: Rashel Vieira MD at 14:02 EDT , Cervical Spine CT 02/11/23 13:31 IMPRESSION: Multilevel degenerative changes, as described above. Electronically Signed: Rashel Vieira MD at 14:05 EDT , Shoulder X-Ray 02/11/23 13:40 IMPRESSION: Status post shoulder replacement. No evidence of acute fracture or dislocation. Electronically Signed: Rashel Vieira MD at 14:07 EDT , <Dr. Tur Ashby MD - Last Filed: 02/11/23 17:23> [facility] [place] Lab Data Attestation: I reviewed the patient's lab results. Labs: Laboratory Results - last 24 hr 02/11/23 02/11/23 14:00 14:00 WBC 22.4 H RBC 3.48 L Hgb 11.1 L Hct 33.0 L MCV 94.8 MCH 31.9 MCHC 33.6 RDW Std Deviation 59.5 H RDW Coeff of Cas 17.2 H Plt Count 307 MPV 9.7 Immature Gran % (Auto) 1.000 H Neut % (Auto) 70.7 H Lymph % (Auto) 4.3 L Taliaferro % (Auto) 5.0 Eos % (Auto) 18.9 H Baso % (Auto) 0.1 Absolute Neuts (auto) 15.8 H Absolute Lymphs (auto) 0.96 Nucleated RBC % 0 Platelet Estimate ADEQUATE RBC Morphology NORM C+C Sodium 135 L Potassium 3.8 Chloride 102 Carbon Dioxide 26.0 Anion Gap 7 BUN 23 H Creatinine 0.58 Estim Creat Clear Calc 38.75 Est GFR (MDRD) Af Amer 128 Est GFR (MDRD) Non-Af 106 BUN/Creatinine Ratio 39.5 H Glucose 133 H Calcium 8.5 Total Creatine Kinase 237 H Radiography Diagnostic Testing: Clinical Impression(s) from Imaging Studies Hip/Pelvis X-Ray 02/11/23 12:48 IMPRESSION: Comminuted right intertrochanteric fracture with superior migration of the distal fracture fragment. Electronically Signed: Rashel Vieira MD at 14:06 EDT , Brain CT 02/11/23 13:31 IMPRESSION: Small acute subdural hematoma involving the cerebral falx. Electronically Signed: Rashel Vieira MD at 14:02 EDT , Cervical Spine CT 02/11/23 13:31 IMPRESSION: Multilevel degenerative changes, as described above. Electronically Signed: Rashel Vieira MD at 14:05 EDT , Shoulder X-Ray 02/11/23 13:40 IMPRESSION: Status post shoulder replacement. No evidence of acute fracture or dislocation. Electronically Signed: Rashel Vieira MD at 14:07 EDT , Three-view x-ray series right shoulder negative for acute fracture my interpretation. My interpretation of the CT agrees with that of the radiologist. Management Discussion w/another healthcare provider: Director Of [employer] (multiple, see below) Treatment and Re-Evaluation Narrative: Seen and evaluated independently and in conjunction with physician medical lab assistant. Agree with notes above unless documented otherwise. Without any prodromal symptoms patient had an accidental fall after she was sitting on the side of the bed for a few minutes and got up to walk toward the bathroom, after taking a couple steps and stumbling. She hit her head without loss of consciousness, and injured her right hip mainly. Complains of pain in both of those areas not able to walk, presents by EMS. No numbness or tingling or other prodromal symptoms. Exam: Well-appearing GCS 15 neurovascular intact all 4 extremities, deformity right hip with pain with logroll. 2+/4 dorsalis pedis pulses. Mild tenderness in the right shoulder without deformity, good range of motion there. No obvious signs of major head trauma. CT imaging I reviewed as well as the interpretation by the radiologist which I agree with, showing a subdural high parietal and the falx. No signs of herniation. She maintained good level of alertness, GCS 15, and did not require any other acute medical management for this. With regards to her right hip, 2 view x-ray series shows an intertroch fracture. Clinically this is closed. Discussed with staff at [facility] and accepted, but it is noted that they required us to have conversations with over 4 different physicians in order to get the patient accepted; I discussed with neurosurgery, orthopedics, 2 different EM physicians, ultimately accepted by Dr. Beckham. While waiting for some of this, the patient was checked on multiple times and was doing well except requiring multiple doses of pain medication every so often for her hip, and she wanted me to try another hospital because she was tired of waiting which I understood, so I discussed with [facility] and they excepted the patient to, but in the end we declined that and the patient would rather go see her orthopedic surgeon at [facility] which is where she is being transported by ground. <Dr. 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, Discussing w/Consultants, Arranging Admission or Transfer and Performing Direct Patient Care at Bedside Discharge Plan Triage Chief Complaint: Fall ED Midlevel Provider: Lesvia Goldstein ED Provider: Tru Ashby Dx/Rx/DC Orders Clinical Impression: Closed intertrochanteric fracture of right hip, Traumatic subdural hematoma, Accidental fall Prescriptions: No Action celecoxib 200 mg capsule 200 mg PO DAILY lisinopril 20 mg tablet 20 mg PO DAILY acetaminophen [Tylenol] 325 mg Tablet 650 mg PO Q4H PRN (Reason: Pain) calcium carbonate-vitamin D3 600 mg-5 mcg (200 unit) Tablet 1 tab PO DAILY lorazepam 0.5 mg Tablet 0.5 mg PO QHS PRN (Reason: Sleep) Multivitamin Women 50 Plus 8 mg iron-400 mcg-300 mcg Tablet 1 tab PO DAILY psyllium Packet 1 packet PO DAILY Rx Instructions: mix into at least 8 oz of water or juice before administering sennosides-docusate sodium [Stool Softener-Stimulant Laxat] 8.6-50 mg Tablet 2 tab PO BID 7 Days Qty: 28 0RF famotidine 20 mg Tablet 20 mg PO DAILY 30 Days Qty: 30 0RF oxycodone 5 mg Tablet 5 - 10 mg PO Q4H PRN PRN (Reason: Pain Score 4-10) 7 Days Qty: 42 0RF aspirin 81 mg Tablet,Delayed Release (Dr/Ec) 81 mg PO BID 28 Days Qty: 56 0RF Primary Care Provider: Rolf Peck Referrals: Rolf Peck MD [Primary Care Provider] - Disposition Disposition: Acute Care Hospital Discharge Location: [facility] Discharge Date/Time: 02/11/23 19:56
[2023-02-11] MEDS: Morphine 4 MG/ML Syringe IV (13:07)
--- NOTE | 2023-02-11 13:31 | CT_ITS ---
STUDY: CT CERVICAL SPINE WITHOUT CONTRAST REASON FOR EXAM: Female, 82 years old. Fall, pain RADIATION DOSAGE (If Supplied By Facility): CTDIvol = ( 16.56 ) mGy, DLP = ( 333.84 ) mGycm TECHNIQUE: High resolution transaxial imaging was performed without contrast material. Sagittal and coronal images were reconstructed. Individualized dose optimization techniques were used for this CT. COMPARISON: None FINDINGS: Normal craniovertebral junction. There are degenerative changes of the anterior atlantoaxial articulation. Normal odontoid process. There is reversal of the normal cervical lordosis. Multilevel spondylosis. C2-3: Disc space narrowing. Facet joint osteoarthritis worse on the right side. No significant stenosis seen. C3-4: Minimal anterior listhesis of C3 on C4. Marked degree of disc space narrowing and spondylosis. Facet joint osteoarthritis and hypertrophy worse on the left side. C4-5: Minimal anterolisthesis of C4 on C5 most likely centered to the facet joint osteoarthritis and hypertrophy. C5-6: Marked degree of disc space narrowing. Spondylosis. Uncovertebral arthrosis. Marked degree of bilateral neural foraminal stenosis. C6-7: Marked degree of disc space narrowing. Spondylosis. Uncovertebral arthrosis. Marked degree of bilateral neural foraminal stenosis. C7-T1: Marked degree of disc space narrowing. Atherosclerotic plaque formation of the carotid bifurcations. CT/Spine Cervical without Contras IMPRESSION: Multilevel degenerative changes, as described above. Electronically Signed: Rashel Vieira MD at 14:05 EDT ,
--- NOTE | 2023-02-11 13:31 | CT_ITS ---
STUDY: CT BRAIN WITHOUT CONTRAST REASON FOR EXAM: Female, 82 years old. Fall, hit head RADIATION DOSAGE (If Supplied By Facility): CTDIvol = ( 44.99 ) mGy, DLP = ( 779.24 ) mGycm TECHNIQUE: Transaxial CT imaging of the brain was performed without administration of intravenous contrast material. Individualized dose optimization techniques were used for this CT. COMPARISON: No relevant priors. FINDINGS: Normal soft tissue structures. Normal calvarium. There is mild cerebral atrophy with widening of the extra-axial spaces and ventricular dilatation. There are areas of decreased attenuation within the white matter tracts of the supratentorial brain, consistent with microvascular disease changes. Normal basal ganglia and thalami. Normal brainstem. Normal cerebellum. Physicians a very small acute subdural hematoma of the cerebral falx. There are no findings of an acute ischemic infarction. Atherosclerotic plaque formation of the cavernous portions of the internal carotid arteries bilaterally. Normal visualized paranasal sinuses. CT/Brain/Head without Contrast IMPRESSION: Small acute subdural hematoma involving the cerebral falx. Electronically Signed: Rashel Vieira MD at 14:02 EDT ,
--- NOTE | 2023-02-11 13:40 | RAD_ITS ---
STUDY: X-RAY - RIGHT SHOULDER REASON FOR EXAM: Female, 82 years old. Fall, pain TECHNIQUE: 2 view(s) of the shoulder. COMPARISON: None. FINDINGS: Status post reverse shoulder replacement. Normal acromioclavicular joint. Prior ORIF of the glenoid aspect of the scapula. Normal humeral head and visualized proximal humerus. The soft tissue structures are unremarkable. Normal visualized pulmonary apex. RAD/Shoulder min 2 Views IMPRESSION: Status post shoulder replacement. No evidence of acute fracture or dislocation. Electronically Signed: Rashel Vieira MD at 14:07 EDT ,
[2023-02-11 14:08] LABS: Absolute Lymphocyte Count 0.96 X10^3/uL (0.83-4.51); Absolute Neutrophil Count 15.8 X10^3/uL (2.0-7.7); Basophil# 0.03 X10^3/uL; Basophil% 0.1 % (0-1); Eosinophils% 18.9 % (0-5); Hemoglobin 11.1 g/dL (12.0-15.0); Lymphocyte # 0.96 X10^3/ul (0.83-4.51); Lymphocyte % 4.3 % (19-41); Mean Corp Hgb Conc 33.6 g/dL (32-36); Mean Corpuscular Hgb 31.9 pg (27.0-32.0); Mean Corpuscular Volume 94.8 fL (81-99); Mean Platelet Vol. 9.7 fl (6.2-12.0); Monocyte# 1.13 X10^3/uL; NRBC Flagged by Analyzer 0 % (0-5); Neutrophil # 15.82 X10^3/uL (2.7-7.7); Neutrophil % 70.7 % (47-70); POSITIVE DIFFERENTIAL YES; POSITIVE MORPHOLOGY YES; Platelet Count 307 K/mm3 (150-450); RBC Distribution Width CV 17.2 % (11.6-14.6); RBC Distribution Width SD 59.5 fl (35.1-43.9); Red Blood Count 3.48 M/mm3 (4.2-5.4); White Blood Count 22.4 K/mm3 (4.4-11.0)
[2023-02-11 14:09] LABS: Eosinophil# 4.23 X10^3/uL
[2023-02-11 14:10] LABS: Differential Indicated SCAN CRITERIA MET
[2023-02-11 14:35] LABS: Anion Gap 7 (5-15); BUN 23 mg/dL (7-18); BUN/Creat Ratio 39.5 RATIO (10-20); CPK Total, Creatine Kinase 237 U/L (26-192); Calcium,Total 8.5 mg/dL (8.5-10.1); Chloride 102 mmol/L (98-107); Creatinine, Serum 0.58 mg/dL (0.55-1.02); EST Glomerular Filtration Rate 106 mL/min (>60); Est Glom Filt Rate - Afr Amer 128 mL/min (>60); Estimated Creatinine Clearance 38.75 ml/min; Glucose 133 mg/dL (74-106); Potassium 3.8 mmol/L (3.5-5.1); Sodium Level 135 mmol/L (136-145)
[2023-02-11 14:59] LABS: Platelet Estimate ADEQUATE (ADEQ); Red Cell Morphology NORM C+C NORMAL (NORM C&C)
[2023-02-11] MEDS: fentaNYL 100 MCG/2 ML Ampul 25 MCG IV ×2 (15:45→17:41)
--- NOTE | 2023-02-11 17:13 | NURSING ---
Addendum entered by Alexa Ledezma 02/11/23 19:19: CALLED FOR UPDATED ETA [id number] GIVEN 45-60MINUTES. Original Note: CALLED PHYSICIANS TO SET UP TRANSPORT TO [facility]-- ETA GIVEN 90 MINUTES --[id number]
== END 2023-02-11 19:56 | disposition short-term general hospital (02) ==
PROVIDERS: Physician Assistant; Emergency Provider Emergency Medicine; PCP Family Medicine; Visit Provider Emergency Medicine
DX: S06.5X0A Traumatic subdural hemorrhage without loss of consciousness, initial encounter (principal); S72.141A Displaced intertrochanteric fracture of right femur, initial encounter for closed fracture; I10 Essential (primary) hypertension; W01.10XA Fall on same level from slipping, tripping and stumbling with subsequent striking against unspecified object, initial encounter; M19.90 Unspecified osteoarthritis, unspecified site; Z79.899 Other long term (current) drug therapy; Z79.82 Long term (current) use of aspirin
CPT/HCPCS: 36415; 70450; 72125; 73030; 73502; 80048; 82550; 85025; 96374; 96375; 96376; 99285; A4216

== ENCOUNTER → 2023-02-25 | Outpatient (CLI) | payer MEDICARE, OTHER, SELFPAY ==
--- NOTE | 2023-02-25 13:55 | CT_ITS ---
STUDY: CT BRAIN WITHOUT CONTRAST REASON FOR EXAM: Female, 82 years old. SUBDURAL HEMATOMA Individualized dose optimization techniques were used for this CT. TECHNIQUE: Transaxial CT imaging of the brain was performed without administration of intravenous contrast material. COMPARISON: 02.11.23 FINDINGS: There are calcifications around the carotid artery. These are noted in the cavernous carotid arteries. Normal calvarium. Normal soft tissues. There is mild cerebral atrophy with widening of the extra-axial spaces and ventricular dilatation. There are areas of decreased attenuation within the white matter tracts of the supratentorial brain, consistent with microvascular disease changes. Normal basal ganglia and thalami. Normal brainstem. There is mild cerebellar atrophy. There is a right parafalcine subdural hematoma measuring 5.5 mm in greatest width. Right tentorium cerebelli subarachnoid blood. There are no findings of an acute ischemic infarction. Normal visualized paranasal sinuses. CT/Brain/Head without Contrast IMPRESSION: Overall, there is improvement in the intracranial hemorrhage. Chronic involutional changes of the brain. Electronically Signed: Humberto Irene MD at 14:57 EDT ,
== END | disposition home or self-care (01) ==
LOC: CT 13:54
PROVIDERS: PCP Family Medicine
DX: S06.5XAA Traumatic subdural hemorrhage with loss of consciousness status unknown, initial encounter (principal)
CPT/HCPCS: 70450

== ENCOUNTER → 2023-03-22 | Outpatient (CLI) | payer MEDICARE, OTHER, SELFPAY ==
--- NOTE | 2023-03-22 13:01 | CT_ITS ---
EXAM: CT RIGHT UPPER EXTREMITY WITHOUT INTRAVENOUS CONTRAST, SHOULDER CLINICAL INDICATION: POSSIBLE FRACTURE TECHNIQUE: Helically acquired images were obtained of the right shoulder without intravenous contrast. 2-D reformats were performed by the technologist. CTDIvol = ( 24.58 ) mGy, DLP = ( 557.48 ) mGycm This CT exam was performed using one or more of the following dose reduction techniques: automated exposure control, adjustment of the mA and/or kV according to patient size, and/or use of iterative reconstruction technique. COMPARISON: February 11, 2023 FINDINGS: Motion artifact limits assessment. BONES/JOINTS: Type II acromion with curved undersurface. No subacromial enthesophyte. Diffuse osteopenia and degenerative changes of the spine at multiple levels. Incompletely healed scapular fracture centered at or near the scapular neck, status post screw fixation. Prosthetic humeral head is high riding relative to glenoid. Subacute or chronic fracture involving the right second rib. SOFT TISSUES: Unremarkable. No soft tissue swelling or gas. No radiopaque foreign body. LUNG APICES: Visualized lungs are clear. CT/Extremity Upper without Contra IMPRESSION: Incompletely healed scapular fracture status post screw fixation. Prosthetic humeral head is high riding relative to glenoid. Electronically Signed: Chuck Woodruff MD at 22:17 EDT ,
== END | disposition home or self-care (01) ==
LOC: CT 13:00
PROVIDERS: PCP Family Medicine
DX: T84.098A Other mechanical complication of other internal joint prosthesis, initial encounter (principal); Z96.611 Presence of right artificial shoulder joint
CPT/HCPCS: 73200

== ENCOUNTER → 2023-06-29 | Outpatient (CLI) | payer MEDICARE, OTHER, SELFPAY ==
[2023-06-29 14:21] LABS: Bacteria 0 SEEN /hpf (None Seen); Mucous, Urine 0 SEEN /hpf (<or=2+); Red Blood Cells-Urine 0 SEEN /hpf (0-5)
[2023-06-29 17:39] LABS: Absolute Lymphocyte Count 1.93 X10^3/uL (0.83-4.51); Absolute Neutrophil Count 3.7 X10^3/uL (2.0-7.7); Basophil# 0.05 X10^3/uL; Basophil% 0.8 % (0-1); Eosinophil# 0.13 X10^3/uL; Eosinophils% 2.1 % (0-5); Hematocrit 33.3 % (37-47); Hemoglobin 10.8 g/dL (12.0-15.0); Lymphocyte # 1.93 X10^3/ul (0.83-4.51); Lymphocyte % 31.2 % (19-41); Mean Corp Hgb Conc 32.4 g/dL (32-36); Mean Corpuscular Hgb 30.9 pg (27.0-32.0); Mean Corpuscular Volume 95.4 fL (81-99); Mean Platelet Vol. 9.5 fl (6.2-12.0); Monocyte% 6.5 % (0-10); NRBC Flagged by Analyzer 0 % (0-5); Neutrophil # 3.67 X10^3/uL (2.7-7.7); Neutrophil % 59.2 % (47-70); Platelet Count 365 K/mm3 (150-450); RBC Distribution Width CV 16.7 % (11.6-14.6); RBC Distribution Width SD 58.6 fl (35.1-43.9); Red Blood Count 3.49 M/mm3 (4.2-5.4); White Blood Count 6.2 K/mm3 (4.4-11.0)
[2023-06-29 17:45] LABS: Color, Urine Yellow (Yellow); Glucose, Dipstick Normal (Normal); Ketone-Dipstick 5 mg/dl (Negative); Leukocyte Esterase-Dipstick 500 /ul (Negative); Nitrite-Dipstick Negative (Negative); Occult Blood-Urine 25 /ul (Negative); Protein-Dipstick 30 mg/dl (Negative); Urine Bilirubin Dipstick Negative (Negative); Urine Clarity Cloudy (Clear); Urine Urobilinogen 1 mg/dl (Normal); Urine pH 6.5 (5.0 - 8.0)
[2023-06-29 18:15] LABS: Vitamin D,25 Hydroxy 48.5 ng/mL
[2023-06-29 18:19] LABS: ALB/GLOB Ratio 1.1 RATIO (0.9-2.4); AST(SGOT) 18 U/L (15-37); Alanine Aminotransfer ALT/SGPT 21 U/L (13-56); Albumin, Serum 3.5 g/dL (3.2-5.0); Alkaline Phosphatase 53 U/L (45-117); Anion Gap 6 (5-15); BUN 20 mg/dL (7-18); BUN/Creat Ratio 27.4 RATIO (10-20); Calcium,Total 8.8 mg/dL (8.5-10.1); Chloride 99 mmol/L (98-107); Cholesterol 184 mg/dL (200); Creatinine, Serum 0.73 mg/dL (0.55-1.02); EST Glomerular Filtration Rate 81 mL/min (>60); Est Glom Filt Rate - Afr Amer 99 mL/min (>60); Globulin 3.3 g/dL (2.2-4.2); Glucose 138 mg/dL (74-106); High Density Lipoprotein 111 mg/dL; Potassium 4.4 mmol/L (3.5-5.1); Protein, Total 6.8 g/dL (6.4-8.2); Sodium Level 132 mmol/L (136-145); Thyroid Stim Hormone (TSH) 1.41 uIU/mL (0.358-3.74); Triglycerides 71 mg/dL; Uric Acid 4.2 mg/dL (2.6-6.0); Very Low Density Lipoprotein 14 mg/dL (5-40)
[2023-06-29 18:27] LABS: Calcium Oxalate Crystals Ur 1+ /hpf (<or=2+); Renal Epithelial Cells 0-5 SEEN /hpf (0-5); Squamous Epithelial Cells - UA 0-5 SEEN /hpf (5-10); White Blood Cells 5-10 SEEN /hpf (0-5)
[2023-06-30 15:26] LABS: Ferritin 63 ng/mL (8-252); Iron 74 ug/dL (50-170); Iron Binding Capacity,Total 353 ug/dL (250-450)
[2023-06-30 19:19] LABS: Hemoglobin A1c 5.4 % (3.8-5.6)
== END | disposition home or self-care (01) ==
LOC: MFPLAB 14:19
PROVIDERS: PCP Family Medicine; Visit Provider Family Medicine
DX: D64.9 Anemia, unspecified (principal); R73.9 Hyperglycemia, unspecified; M85.80 Other specified disorders of bone density and structure, unspecified site; I10 Essential (primary) hypertension; M10.9 Gout, unspecified
CPT/HCPCS: 36415; 80053; 80061; 81001; 82306; 82728; 83036; 83540; 83550; 84443; 84550; 85025

== ENCOUNTER → 2023-07-01 | Outpatient (CLI) | payer MEDICARE, OTHER, SELFPAY | END | disposition home or self-care (01) | LOC: MFPLAB 11:46 | PROVIDERS: PCP Family Medicine; Visit Provider Family Medicine | DX: R82.81 Pyuria (principal) | CPT/HCPCS: 87086; 87088 ==

== ENCOUNTER 2023-11-10 11:13 | Emergency (ER) | payer MEDICARE, OTHER, SELFPAY ==
[2023-11-10 11:16] VITALS: BP 151/84; PULSE 51; RESP 14; TEMP 36.3; O2SAT 98
--- NOTE | 2023-11-10 12:22 | ED.RN ---
LWBS. I CAN'T SIT AND WAIT ANY LONGER.
== END 2023-11-10 12:05 | disposition left against medical advice (07) ==
LOC: ED 12:25
PROVIDERS: PCP Family Medicine
DX: Z00.00 Encounter for general adult medical examination without abnormal findings (principal)

== ENCOUNTER → 2023-11-11 | Outpatient (CLI) | payer MEDICARE, OTHER, SELFPAY ==
--- NOTE | 2023-11-11 12:35 | RAD_ITS ---
HISTORY: pain, history of hip fracture. TECHNIQUE: XR Hip Unilateral with Pelvis when performed; 2-3 Views. COMPARISON: 02/11/2023. FINDINGS: BONES : Gamma nail fixation of right intertrochanteric femur fracture with improved alignment and decreased overlap. Partial bony bridging with small fracture planes still visible. JOINTS: No dislocation. Degenerative changes of both hips. RAD/HIP, UNI W/ Pelvis 2-3 Views IMPRESSION: ORIF right intertrochanteric femur fracture with interval healing and partial bony bridging. Electronically Signed: Danelle Dao MD at 11:40 EST ,
--- OUTSIDE RECORDS SUMMARY | 2023-11-11 12:55 | XMS RPT_ITS | CCD ---
Author Name Unknown Address [address] [facility] [address] [place] [address] Organization [facility] Care Team Providers Care Apprentice Cook Name Role Phone Unavailable Primary Care Provider ALANA Walker Admitting Unavailable ALANA PETERS Attending Unavailable NAREN TOLEDO Consulting Unavailable PHYSICIAN, NONE Primary Care Physician Unavailab PETTY Joyce MD Attending Unavailable PHYSICIAN, NONE Primary Care Unavailable PHYSICIAN, NONE Primary Care Unavailable GEOFF LYMAN, SAVANNA Zhang Admitting Unavailab ksenia TELLEZ MD, SAVANNA Zhang Attending Unavailab AIDEN Anderson MD Consulting Unavailable LUCIEN DOLAANA Consulting Unavailable Allergies Allergy Classification Reported Allergen(s) Allergy Type Date of Onset Reaction(s) Facility (3 sources) Naproxen; Translations: [NAPROXEN] Drug Allergy 3 Other: See Comments [facility] (3 sources) predniSONE; Translations: [PREDNISONE] Drug Allergy 3 Other: See Comments [facility] (1 source) Bee/Wasp/Ant venom Allergy to [facility] Medications Current Medications Medication Drug Class(es) Dates Sig (Normalized) Sig (Original) docusate sodium 100 mg oral capsule (1 source) Start: 02-15-2023 Colace 100 mg oral capsule Dose : 100 mg = 1 cap(s), Oral, BID, PRN Constipation, 0 Refill(s) Start Date: 02/15/23 Status: Ordered lisinopril 20 mg oral tablet (2 sources) Angiotensin Converting Enzyme Inhibitor Start: 02-12-2023 take 1 dose by mouth once daily lisinopril Dose : 20 mg =, Oral, qDay, 0 Refill(s) Start Date: 02/12/23 Status: Ordered Completed/Discontinued Medications Medication Drug Class(es) Dates Sig (Normalized) Sig (Original) acetaminophen 1000 mg oral tablet (1 source) take 1000 mg by mout h once daily at bedtime acetaminophen (TYLENOL EXTRA STRENGTH ORAL) Take 1,000 mg by mouth daily at bedtime. 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 Other nervous system disorders (1 source) Other acute postprocedural pain; Translations: [Post-op pain] Onset: 12-15-2022 Episodic Other non-traumatic joint disorders (1 source) Joint pain; Translations: [Pain in other specified joint] Episodic Unclassified (1 source) Pain in other specified joint; Translations: [Pain in other specified joint] Onset: 12-09-2022 Past or Other Problems Problem Classification Problem Date Documented Da te Episodic/Chronic Other and unspecified benign neoplasm (1 source) Benign neoplasm of colon; Translations: [Benign neoplasm of colon, unspecified] Onset: 09-10-2008 09-10-2008 Episodic Other screening for suspected conditions (not mental disorders or infectious disease) (1 source) Patient encounter status; Translations: [Encounter for screening for malignant neoplasm of colon] Onset: 09-10-2008 09-10-2008 Episodic Other skin disorders (1 source) Sebaceous cyst of skin; Translations: [Sebaceous cyst] Onset: 04-29-2009 04-29-2009 Episodic Results Test Name Value Interpretation Reference Range Facil ity Vital Signs Date Time Vital Sign Value Performing Clinician Chivo sandy 12-09-2022 12:06-0400 Body height 162.6 cm Pac 1 Work Phone: [facility] 12-09-2022 12:06-0400 Body weight 53.52 kg Pac 1 Work Phone: [facility] 12-09-2022 12:06-0400 Diastolic blood pressure 67 mm[Hg] Pac 1 Work Phone: [facility] 12-09-2022 12:06-0400 Heart rate 65 /min Pac 1 Work Phone: [facility] 12-09-2022 12:06-0400 Respiratory rate 20 /min Pacc 1 Work Phone: [facility] 12-09-2022 12:06-0400 SaO2% (BldA) [Mass fraction] 97 % Pacc 1 Work Phone: [facility] 12-09-2022 12:06-0400 Systolic blood pressure 146 mm[Hg] Pacc 1 Work Phone: [facility] Encounters Encounter Date Encounter Type Care Provider Facility Start: 02-28-2023 End: 03-01-2023 ambulatory PETTY CHILDS MD Facility:A Start: 02-28-2023 End: 02-28-2023 Patient encounter procedure PETTY CHILDS MD [facility] Start: 02-11-2023 End: 02-15-2023 Evaluation and management of inpatient [facility] Facility:A Start: 12-15-2022 End: 12-17-2022 Evaluation and management of inpatient [facility] Facility:[id number] Start: 12-09-2022 Encounter for other preprocedural examination [facility] Start: 12-09-2022 End: 12-09-2022 Admission to [facility] [place] [id number] Work Phone: [facility] Start: 12-09-2022 End: 12-10-2022 ambulatory Pacc 1 Work Phone: Pre Anesthesia Procedures Date Procedure Procedure Detail Performing Clinician Start: 12-15-2022 Antibody screen [facility] Plan of Treatment Date Care Activity Detail Author Start: 12-09-2025 DIABETES SCREEN DIABETES SCREEN [facility] Start: 09-05-2022 ADVANCE DIRECTIVE DISCUSSION ADVANCE DIRECTIVE DISCUSSION [facility] Start: 09-05-2022 DEPRESSION ASSESSMENT DEPRESSION ASSESSMENT [facility] Start: 08-05-2021 COVID-19 VACCINE (4 - Booster for Pfizer series) COVID-19 VACCINE (4 - Booster for Pfizer series) [facility] Start: 12-21-2007 BONE DENSITY BONE DENSITY [facility] Start: 12-21-2007 PNEUMOCOCCAL: 65+ (1 - PCV) PNEUMOCOCCAL: 65+ (1 - PCV) [facility] Start: 1992 SHINGRIX VACCINE (1 of 2) SHINGRIX VACCINE (1 of 2) [facility] Start: 1961 Urine microalbumin profile DTAP,TDAP,TD (1 - Tdap) [facility] End: 12-09-2023 ECG COMPLETE ECG COMPLETE ECG Routine Pre-op testing 1 Occurrences starting 12/08/2022 until 12/09/2023 [facility] Work Phone: Payers Date Payer Category Payer Medicare [id number] 2016 Private Health Insurance HUMANA HUMANA MEDICARE SUPPLEMENT [id number] 2016-Present [phone] [address] [address] [place] [address] Indemnity [id number] 2007 Medicare MEDICARE MEDICAR E A AND B [id number] 2007-Present [phone] [address] [address] [place] [address] Medicare [id number] 2007 Medicare [id number] 1940 Unknown [id number] 1940 Unknown [id number] Social History Date Type Detail Facility Start: 12-08-2022 Tobacco smoking stat us TNIS Ex-smoker [facility] End: 09-05-1959 History of tobacco use Current smoker [facility] End: 09-05-1959 History of tobacco use Cigarette Smoker [facility] Start: 12-08-2022 Tobacco use and exposure Smokeless tobacco non-user [facility] Start: 12-09-2022 Alcohol intake Current drinke r of alcohol (finding) [facility] Start: 12-08-2022 Alcohol Comment bourbon 1 drink meena y [facility] Start: 1940 Sex Assigned At Not on file C [facility] Tobacco smoking status No Smokin g Status Entered [facility] Sex Assigned At Female [facility] Medical Equipment Procedure Code Equipment Code Equipment Original Text Equipment Identifier Dates Femur Rodding Intramedullary Unknown 02/12/23 Unknown Unknown FDA Start: 02-12-2023 Femur Rodding Intramedullary Unknown 02/12/23 Unknown Unknown FDA Start: 02-12-2023 Femur Rodding Intramedullary Unknown 02/12/23 Unknown Unknown FDA Start: 02-12-2023 Clinical Notes 12-09-2022 to 02-26-2023 RadiologyMindi Ward APRN.LEASING REPRESENTATIVE - 12/09/2022 1:00 PM Gissel Ward APRN.ROLANDO - 12/09/2022 12:25 PM Ehsan Araujo APRN.CNP - 12/09/2022 11:00 AM EDTPatient Instructions Note Date & Type Note Facility 02-26-2023 Evaluation + Plan note Future Scheduled TestsCT Head or Brain w/o Contrast 02/26/23 [facility] 12-17-2022 Note HNO ID: [id number] Author: Marichuy Gutierrez Service: Pharmacy Author Type: ? Type: Plan of Care Filed: 12/17/2022 3:40 PM Note Text: PHARMACY BEDSIDE DELIVERY SERVICE Patient Name: May Leonard The marked outpatient medications were Filled at: [facility] and delivered to the patient's bedside to PT Medication List START taking these medications oxyCODONE-acetaminophen 5-325 mg tablet Commonly known as: PERCOCET Take 1 tablet by mouth every 6 hours as needed for up to 7 days. DELIVERED CHANGE how you take these medications aspirin, enteric coated 325 mg EC tablet Commonly known as: ASPIRIN, ENTERIC COATED Take 1 tablet by mouth twice daily for 14 days. What changed: medication strength how much to take when to take this additional instructions CONTINUE taking these medications CALCIUM 600 + D ORAL LISINOPRIL ORAL LORazepam 0.5 mg Commonly known as: ATIVAN MULTIVITAMIN WOMEN 50 PLUS ORAL You might also be taking other medications not listed above. If you have questions about any of your other medications, talk to the person who prescribed them or your Primary Care Provider. STOP taking these medications celecoxib 200 mg capsule Commonly known as: CeleBREX OXYCODONE ORAL TYLENOL EXTRA STRENGTH ORAL Marichuy Gutierrez PAGER: [phone] December 17, 2022 3:15 PM [facility] 12-17-2022 Note HNO ID: [id number] Author: Alana Peters DO Service: Orthopaedic Surgery Author Type: Physician Type: Progress Notes Filed: 12/22/2022 10:03 AM Note Text: ORTHOPAEDIC SURGERY POSTOP PROGRESS NOTE Surgery Date: 12/15/2022 Surgeon(s) and Culinary Worker(s): Surgeon(s) and Role: * Alana Peters DO - Primary * Joseph Small DO - Resident - Assisting Procedure(s): Procedure(s) (LRB): REVISE TOTAL SHOULDER ARTHROPLASTY INCL ALLOGRAFT WHEN PERFORMED HUMERAL AND GLENOID COMPONENT (Right) Subjective: Patient is postop day 2. States her shoulder is less painful today than it was yesterday however she does have a sore throat. Denies fever chills cough shortness of breath or congestion. Denies any numbness or tingling. No acute events overnight. Vitals: BP 118/68 Pulse 63 Temp 36.8 ?C (98.2 ?F) (Oral) Resp 18 Ht 162.6 cm (5' 4 ) Wt 52.5 kg (115 lb 11.2 oz) SpO2 98% BMI 19.86 kg/m? BMI: Estimated body mass index is 19.86 kg/m? as calculated from the following: Height as of this encounter: 162.6 cm (5' 4 ). Weight as of this encounter: 52.5 kg (115 lb 11.2 oz). I/O: Intake/Output Summary (Last 24 hours) at 12/17/2022 0557 Last data filed at 12/17/2022 0348 Gross per 24 hour Intake -- Output 1700 ml Net -1700 ml Problem List: ACTIVE PROBLEM LIST Special Screening for Malignant Neoplasms, Colon Benign Neoplasm of Colon Sebaceous Cyst Hypertension Glenoid Fracture of Shoulder, Right, Closed, Initial Encounter Hyponatremia Anemia Leukocytosis Thrombocytosis Anxiety Physical Exam: Examination of patient's right upper extremity reveals dressing clean dry and intact. Sling is in place. Axillary nerve sensation motor function intact. Palpable radial and ulnar pulses. Labs: CBC, Coags, BMP, Mg, Phos Recent Labs 12/17/22 0506 12/16/22 0506 WBC 8.27 9.87 HB 7.8* 7.4* HCT 23.2* 22.2* PLT 379 443* NA -- 131* K -- 4.9 CHLOR -- 100 CO2 -- 26 BUN -- 15 CREAT -- 0.56 GLUC -- 120* CA -- 8.4* MG -- 1.7 Impression/Plan: S/P Procedure(s) (LRB): REVISE TOTAL SHOULDER ARTHROPLASTY INCL ALLOGRAFT WHEN PERFORMED HUMERAL AND GLENOID COMPONENT (Right) on 12/15/2022 Acute Blood Loss anemia - stable today Patient is doing well postop day 2 status post right revision total shoulder arthroplasty for glenoid fracture. She is doing well from a pain standpoint, pain is controlled on oral narcotic pain medication. She does have a sore throat, likely from intubation. This should improve with time. Her hemoglobin is up to 7.8 today. Given that this is improving, she is stable for discharge from an orthopedic standpoint. We will follow-up with her outpatient. We reviewed restrictions including maintaining the sling and being nonweightbearing with the right upper extremity. She will be discharged with oral pain medication as well as aspirin 325 mg to take twice a day for 14 days for DVT prophylaxis. SIGNATURE: Анна Joel PA-C PATIENT NAME: May Leonard DATE: December 17, 2022 TIME: 5:57 AM PAGER/CONTACT #: [phone]#[phone] [facility] 12-16-2022 Note HNO ID: [id number] Author: Naren Toledo MD Service: General Internal Medicine Author Type: Physician Type: Progress Notes Filed: 12/16/2022 5:03 PM Note Text: DEPARTMENT OF HOSPITAL MEDICINE PROGRESS NOTE SERVICE DATE: 12/16/2022 SERVICE TIME: 4:53 PM Hospital Medicine/Primary Attending: Naren Toledo MD Subjective INTERVAL HPI: patient seen and examined. Up in bed, complaining of pain/discomfort within right arm. No overnight events noted. MEDICATIONS: Reviewed Objective PHYSICAL EXAM: BP 109/55 Pulse 64 Temp (Src) 98.7 (Temporal) Resp 16 Ht 5' 4 (1.63m) Wt 115 lb 11.2 oz (52.5kg) SpO2 97% BMI 19.85 kg/(m2). O2 Therapy: Room Air Physical Exam Performed GENERAL: Alert, no distress, cooperative SKIN: Skin color, texture, turgor normal. No rashes or lesions. NECK: No jugulovenous distention, No carotid bruits, Carotid pulse normal contour, Supple LUNGS: Lungs clear to auscultation, Good diaphragmatic excursion CARDIAC: Normal S1 and S2; no rubs, murmurs, or gallops ABDOMEN: Abdomen soft, non-tender, BS normal, No masses or organomegaly EXTREMITIES: Extremities normal, no deformities, edema, clubbing or skin discoloration. Good capillary refill., No ulcers, right arm in sling Lines, Drains, and Airways Line Duration Peripheral 12/15/22 1105 Left Forearm 20 Gauge 1 day DATA: Diagnostic tests reviewed for today's visit: Most recent labs and imaging results. Assessment/Plan Principal Problem: Glenoid fracture of shoulder, right, closed, initial encounter POA: Yes Assessment AND Plan: status post revision total shoulder arthroplasty, orthopedics following. maintain sling and NWB status of operative extremity. Can remove sling to do elbow, wrist and hand range of motion continue with oral pain control Active Problems: Hypertension POA: Unknown Assessment AND Plan: continue with Lisinopril Hyponatremia POA: Yes Assessment AND Plan: sodium level remains low but trending up. Plan to obtain follow up labs in the morning. plan to check urine/serum osmolality, TSH Anemia POA: Yes Assessment AND Plan: hemoglobin is 7.4, closely monitor HANDH plan to obtain AM labs Leukocytosis POA: Yes Assessment AND Plan: resolved Thrombocytosis POA: Yes Assessment AND Plan: Anxiety POA: Yes Assessment AND Plan: continue with home medications Resolved Problems: * No resolved hospital problems. * Medication and Non-Pharmacologic VTE Prophylaxis/Anticoagulants Anticoagulant AND Antiplatelet Medications (From admission, onward) Start Dose Route Frequency Last Action Ordered Stop 12/16/22 0900 aspirin, enteric coated 325 mg tab(s) (Surgical Risk Categories) 325 mg ORAL 2 TIMES DAILY Given, 12/16 0739 12/15/22 1745 -- 12/15/22 1800 pneumatic compression stockings ([place], [place]) 12/15/22 1800 activity - mobilize patient ([place]) VTE Prophylaxis: VTE prophylaxis appropriate Disposition: To be determined Plan of care discussed with: Provider, RN, Patient SIGNATURE: Naren Toledo MD PATIENT NAME: May Leonard DATE: December 16, 2022 TIME: 4:53 PM etx [id number] [facility] 12-16-2022 Note HNO ID: [id number] Author: Анна Joel PA-C Service: Orthopaedic Surgery Author Type: Physician Culinary Worker Type: Progress Notes Filed: 12/16/2022 11:58 AM Note Text: Attestation signed by Alana Peters DO at 12/22/2022 10:08 AM I agree with AMY note ORTHOPAEDIC SURGERY POSTOP PROGRESS NOTE Surgery Date: 12/15/2022 Surgeon(s) and Culinary Worker(s): Surgeon(s) and Role: * Alana Peters DO - Primary * Joseph Small DO - Resident - Assisting Procedure(s): Procedure(s) (LRB): REVISE TOTAL SHOULDER ARTHROPLASTY INCL ALLOGRAFT WHEN PERFORMED HUMERAL AND GLENOID COMPONENT (Right) Subjective: Patient is post op day 1. She did not have a pre-operative nerve block so she admits to significant pain. She states it was an 8/10 but this improved to a 5/10 with oral pain medication. It is tolerable for her now and she is resting comfortably in bed. She denies numbness/tingling. No lightheadedness/dizziness, shortness of breath or CP. Vitals: BP 117/59 Pulse 77 Temp 36.5 ?C (97.7 ?F) (Temporal) Resp 18 Ht 162.6 cm (5' 4 ) Wt 52.5 kg (115 lb 11.2 oz) SpO2 99% BMI 19.86 kg/m? BMI: Estimated body mass index is 19.86 kg/m? as calculated from the following: Height as of this encounter: 162.6 cm (5' 4 ). Weight as of this encounter: 52.5 kg (115 lb 11.2 oz). I/O: Intake/Output Summary (Last 24 hours) at 12/16/2022 0607 Last data filed at 12/16/2022 0323 Gross per 24 hour Intake 1700 ml Output 400 ml Net 1300 ml Problem List: ACTIVE PROBLEM LIST Special Screening for Malignant Neoplasms, Colon Benign Neoplasm of Colon Sebaceous Cyst Hypertension Glenoid Fracture of Shoulder, Right, Closed, Initial Encounter Hyponatremia Anemia Leukocytosis Thrombocytosis Anxiety Physical Exam: Examination of patient's right upper extremity reveals sling in place. Dressing is clean dry and intact. Axillary nerve sensation and motor function intact. Sensation intact distally in the radial, ulnar, and median nerve distributions. Palpable radial and ulnar pulses Labs: CBC, Coags, BMP, Mg, Phos Recent Labs 12/16/22 0506 WBC 9.87 HB 7.4* HCT 22.2* PLT 443* NA 131* K 4.9 CHLOR 100 CO2 26 BUN 15 CREAT 0.56 GLUC 120* CA 8.4* MG 1.7 Impression/Plan: S/P Procedure(s) (LRB): REVISE TOTAL SHOULDER ARTHROPLASTY INCL ALLOGRAFT WHEN PERFORMED HUMERAL AND GLENOID COMPONENT (Right) on 12/15/2022 - Physical Therapy Evaluation - DVT prophylaxis: Intermittent pneumatic compression device (IPCD) and aspirin - Pain control as needed - Antibiotics: Discontinuing Antibiotics after 24 hours - Anticipated D/C: Tomorrow -Patient is post op day 1 status post right revision total shoulder arthroplasty. She does admit to post operative pain, but it improves to a tolerable level with oral narcotic medication. Continue as needed. -IV antibiotics to finish today -Hemoglobin is 7.4, will follow. May need transfusion if decreases below 7. -Reviewed restrictions, maintain sling and NWB status of operative extremity. Can remove sling to do elbow, wrist and hand range of motion -Will plan for discharge home tomorrow if hemoglobin stabilizes. -Medical management per medicine team SIGNATURE: Анна Joel PA-C PATIENT NAME: May Leonard DATE: December 16, 2022 TIME: 6:07 AM PAGER/CONTACT #: [phone] [facility] 12-15-2022 Note HNO ID: [id number] Author: Laura Morillo APRN.CRNA Service: ? Author Type: Nurse Roustabout Type: Anesthesia Procedure Notes Filed: 12/15/2022 1:07 PM Note Text: ANESTHESIOLOGY PROCEDURE NOTE Airway General Information Procedure Start Time/Medication Administration: 12/15/2022 12:50 PM Patient location during procedure: OR Timeout Performed Pre-procedure: timeout performed Consent Obtained: Yes Patient identity confirmed: arm band Staffing BODY AND FENDER WORKER: Laura Morillo APRN.BODY AND FENDER WORKER Performed by: DENTON and C[employer] student Indications and Patient Condition Indications for airway management: anesthesia Preoxygenated: yes anesthesia circuit Method: sleep Cricoid Pressure: Yes Difficult Mask: No Final Airway Details Final airway type: endotracheal airway Final Endotracheal Airway: ETT Cuffed: yes Successful intubation technique: direct laryngoscopy Devices used: intubating stylet Blade: Lizette Blade size: #3 ETT size (mm): 7.0 Measured from: lips Measurement (cm): 22 Placement verified by: chest auscultation and capnometry Cormack-Lehane Classification: grade IIa - partial view of glottis Number of attempts at approach: 1 Airway not difficult Comments Ollie PATEL with Dlx1, no good view- DENTON Dlx1 SIGNATURE: Laura Morillo APRN.CRNA PATIENT NAME: May Leonard DATE: December 15, 2022 TIME: 1:06 PM CSN: [id number] [facility] 12-15-2022 Note HNO ID: [id number] Author: Santana Levi DO Service: Anesthesiology Author Type: Anesthesiologist Type: Anesthesia Procedure Notes Filed: 12/15/2022 12:34 PM Note Text: ANESTHESIOLOGY PROCEDURE NOTE Peripheral Nerve Block General Information Procedure Start Time/Medication Administration: 12/15/2022 12:30 PM Procedure End time: 12/15/2022 12:33 PM Patient location during procedure: pre-op Timeout Performed Pre-procedure: timeout performed Consent Obtained: Yes Patient identity confirmed: arm band and patient Reason for block: post-op pain management/at surgeon's request Staffing Anesthesiologist: Santana Levi DO Performed by: anesthesiologist Preparation Sterility Preparation: hand hygiene performed prior to procedure, sterile gloves, drapes, and procedure tray, surgical cap used, mask used, sterile drape used during line insertion, skin prep agent completely dried prior to procedure Site Prep: Chloraprep Pre-Procedure Neuro Exam Location: RUE Sensory: intact Motor: intact Procedure Details Patient Position: sitting Monitoring: Pulse OX, EKG and NIBP Block Type Upper Extremity: brachial plexus Approach: interscalene Laterality: right Injection Technique: single-shot Ultrasound Guided: Yes Image in Chart: yes Local Infiltration: Yes Needle Needle Type: echogenic Needle Gauge: 20 G Needle Length: 50 mm Needle Localization: anatomical landmarks and ultrasound Assessment Injection assessment: negative aspiration, local visualized surrounding nerve on ultrasound, no paresthesia on injection and incremental injection Paresthesia: none Post-Procedure Neuro Exam Expected Regional Anesthesia: Yes Medications Administered ropivacaine (PF) 5 mg/mL (0.5 %) injection (NAROPIN) - peripheral nerve block 15 mL - 12/15/2022 12:30:00 PM SIGNATURE: Santana Levi DO PATIENT NAME: May Leonard DATE: December 15, 2022 TIME: 12:33 PM CSN: [id number] [facility] 12-14-2022 Note HNO ID: [id number] Author: Chey Argueta RN Service: Nursing Author Type: Registered Nurse Type: Progress Notes Filed: 12/14/2022 2:14 PM Note Text: PATIENT MEDICATION INSTRUCTIONS Please read below carefully for your personalized instructions. Medications: If you are on blood thinner or anticoagulants including aspirin, please confirm with your surgical team on when to stop these medications. Unless instructed differently by your surgical team, stay on all of your medications until your surgery. Pre-Surgery Med Instructions Medication Instructions celecoxib (CELEBREX) 200 mg capsule Follow Surgeon's instructions LISINOPRIL ORAL DO NOT TAKE MORNING OF SURGERY LORazepam (ATIVAN) 0.5 mg multivit-min/iron/folic/lutein (MULTIVITAMIN WOMEN 50 PLUS ORAL) DO NOT TAKE MORNING OF SURGERY calcium carbonate/vitamin D3 (CALCIUM 600 + D ORAL) DO NOT TAKE MORNING OF SURGERY acetaminophen (TYLENOL EXTRA STRENGTH ORAL) PRN if needed aspirin, enteric coated (ASPIRIN, ENTERIC COATED) 81 mg EC tablet Follow Prescribers Instructions oxycodone HCl (OXYCODONE ORAL) PRN if needed If you have any medication changes between receiving these instructions and your surgery date, please provide this updated information with the nurse who calls you the week day prior to your surgical procedure so we can update your list and provide you with updated instructions for the morning of your procedure. PRE-PROCEDURE INSTRUCTIONS TO PREPARE FOR YOUR PROCEDURE: Your arrival time for your procedure is 1000. Do NOT eat any solid foods after MIDNIGHT the night prior to your procedure - this includes gum or mints. You can drink clear liquids* up until 0800, which is 2 hours before your arrival time. *Clear liquids = water, carbohydrate drink (sports drink that is clear or yellow in color), Ensure Pre-Surgery (given by LUCAS or your ), fruit juice without pulp (apple/cranberry), clear tea, black coffee (no cream). NO CARBONATED BEVERAGES AND NO ALCOHOL. Shower the morning of the procedure, put on clean clothes, and have clean sheets for your bed to help prevent infection after your procedure. Leave all valuables such as jewelry including rings, piercings, wallets, and purses at home. Wear comfortable, loose-fitting clothing. If you wear glasses or contacts, please bring a case. SPECIAL INSTRUCTIONS: If instructed, bring your first voided urine specimen with you. If you were provided skin preparation to use prior to your procedure, complete this as directed. If you were provided Ensure Pre-Surgery drink, you need to drink this at 0800. This should be consumed quickly (in less than 5 minutes, rather than sipped over time) If you use crutches or a walker, bring them with you. If you have a home CPAP/BIPAP machine, bring it with you. If you were instructed to complete a fleets enema or bowel prep, complete as directed. Bring copy of Living Will/Power of Extension Division Director. Do not smoke or chew. If you use tobacco, quit or at least cut down before surgery. Do not smoke or chew after midnight the day before your surgery. This effects bleeding, infection, healing, and so much more. Do not take any Diet or Herbal Supplements 2 weeks prior to your surgery date. Please notify your physician if there is any change in your physical condition such as a cold, cough, fever, sore throat, or skin irritation near the surgical site. Visitors under the age of 14 are restricted in the Surgery Center. UPON ARRIVAL: Access to [facility] (the glass building) is located on [address] Weatherization Installer parking is available for your convenience from 5am-5pm- there is a $5.00 charge for this service. Take the elevators directly inside the entrance to the 1st Floor Surgery Lobby. Sign in at the podium located to the left when you get off the elevators. A payment may be expected at the time of service. One visitor may come back to the preoperative area with you. The preoperative staff will be reviewing your medical history, please let them know if you prefer not to have a visitor with you during this time. Once you are ready for surgery, two visitors at a time are permitted in your preoperative room. [facility] 12-09-2022 Note HNO ID: [id number] Author: Mindi Ward APRN.LEASING REPRESENTATIVE Service: ? Author Type: Nurse Practitioner Type: Progress Notes Filed: 12/10/2022 3:32 PM Note Text: [facility] Consult SERVICE DATE: 12/09/2022 SERVICE TIME: 1:00 PM PRIMARY CARE PHYSICIAN: No primary care provider on file. REASON FOR VISIT: May Leonard is a 81 year old female who is scheduled for REVERSE TSA at the request of Dr. PETERS for consultation. My final recommendation will be communicated back to the requesting physician by way of shared medical record or letter. The patient has the following: ACTIVE PROBLEM LIST Special Screening for Malignant Neoplasms, Colon Benign Neoplasm of Colon Sebaceous Cyst Subjective CHIEF COMPLAINT: SHOULDER PAIN 81yo female, exsmoker who underwent R TSA 09/30/22 in [place]. She fell 11/26/22 after becoming dizzy and falling backwards. Lives alone, wearing a sling currently. R handed. PMH: HTN, migraines, spinal stenosis, anxiety. Taking ASA and will verify stop date with surgeon. 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 SOCIAL HISTORY: Social History Tobacco Use Smoking status: Former Types: Cigarettes Quit date: 1960 Years since quittin.3 Smokeless tobacco: Never Substance Use Topics Alcohol use: Yes Comment: fracisco 1 drink daily Drug use: Never Prior to Admission medications as of 12/09/22 1209 Medication Sig Last Dose Taking celecoxib (CELEBREX) 200 mg capsule Take 200 mg by mouth every morning. No hold date yet-will call office today 12/08 Yes LISINOPRIL ORAL Take 20 mg by mouth every morning. Yes LORazepam (ATIVAN) 0.5 mg Take by mouth daily at bedtime. Yes multivit-min/iron/folic/lutein (MULTIVITAMIN WOMEN 50 PLUS ORAL) Take by mouth once daily. Last dose 12/08 Yes calcium carbonate/vitamin D3 (CALCIUM 600 + D ORAL) Take by mouth once daily. Last dose 12/08 Yes acetaminophen (TYLENOL EXTRA STRENGTH ORAL) Take 1,000 mg by mouth daily at bedtime. Yes aspirin, enteric coated (ASPIRIN, ENTERIC COATED) 81 mg EC tablet Take 81 mg by mouth once daily. Will clarify last dose today ld 12/08/22 Yes oxycodone HCl (OXYCODONE ORAL) Take 5 mg by mouth as needed. Yes No medication comments found. ALLERGIES Allergen Reactions Naproxen Other: See Comments Become very anxious and passed out Prednisone Other: See Comments Made her very anxious REVIEW OF SYSTEMS: PAIN ASSESSMENT: General: No weight loss, malaise or fevers. Neuro: Postive for MIGRAINES Respiratory: No history of current cough or dyspnea, or pneumonia in the past 6 weeks. No history of respiratory/pulmonary symptoms or problems. Cardiovascular: Positive for: Hypertension GI: No history of GI symptoms or problems. No history of esophageal varices, recent ascites, or ETOH greater than 2 drinks per day. : No history of dysuria, frequency or incontinence,, stones or chronic kidney disease Endocrine: No history of diabetes. Has not taken steroids within the past 30 days. No history of endocrinological symptoms or problems. Hematology: Chronic anti-coagulation / platelet meds (Aspirin) Oncology: No history of CA metastasis, chemo within 30 days, or radiotherapy within 90 days. Has not lost 10% of body wt in 6 months. No history of oncological symptoms or problems. Psych: Anxiety Musculoskeletal: Back pain and Joint pain Skin: Negative for lesions, rash and itching. Objective PHYSICAL EXAM: VITALS: BP 146/67 Pulse 65 Resp 20 Ht 5' 4 (1.63m) Wt 118 lb (53.5kg) SpO2 97% BMI 20.24 kg/(m2). General: Alert and oriented, Healthy appearance Skin: Normal color, no rash, no lesions. Extremities: Joint tenderness right shoulder Neurological: Normal cognition and motor skills. Gait normal. No weakness or sensory deficit. Diagnostic tests reviewed for today's visit: Hemoglobin (g/dL) Date Value 12/09/2022 9.9 Hematocrit (%) Date Value 12/09/2022 28.6 WBC (k/uL) Date Value 12/09/2022 11.86 Platelet Count (k/uL) Date Value 12/09/2022 633 BMP Latest Ref Rng AND Units 12/09/2022 GLUCOSE 70 - 100 mg/dL 97 BUN 7 - 26 mg/dL 22 CREATININE 0.51 - 0.95 mg/dL 0.64 SODIUM 136 - 145 mmol/L 129(L) POTASSIUM 3.5 - 5.1 mmol/L 5.0 CHLORIDE 98 - 107 mmol/L 95(L) CO2 21 - 32 mmol/L 29 ANION GAP 5 - 16 mmol/L 5 CALCIUM, TOTAL 8.5 - 10.5 mg/dL 9.5 eGFR >=60 mL/min/1.73m? 90 Hemoglobin A1C (%) Date Value 12/09/2022 5.9 A1C 5.9 COAGS NORMAL MRSA/SA (-) *SENDING FYI REGARDING HGB (more content not included)... [facility] 12-09-2022 Note HNO ID: [id number] Author: Mindi Ward APRN.LEASING REPRESENTATIVE Service: ? Author Type: Nurse Practitioner Type: Progress Notes Filed: 12/09/2022 1:11 PM Note Text: Summary: DOS MEDS PATIENT MEDICATION INSTRUCTIONS Please read below carefully for your personalized instructions. Medications: If you are on blood thinner or anticoagulants including aspirin, please confirm with your surgical team on when to stop these medications. Unless instructed differently by your surgical team, stay on all of your medications until your surgery. Pre-Surgery Med Instructions Medication Instructions celecoxib (CELEBREX) 200 mg capsule Follow Surgeon's instructions LISINOPRIL ORAL DO NOT TAKE MORNING OF SURGERY LORazepam (ATIVAN) 0.5 mg multivit-min/iron/folic/lutein (MULTIVITAMIN WOMEN 50 PLUS ORAL) DO NOT TAKE MORNING OF SURGERY calcium carbonate/vitamin D3 (CALCIUM 600 + D ORAL) DO NOT TAKE MORNING OF SURGERY acetaminophen (TYLENOL EXTRA STRENGTH ORAL) PRN if needed aspirin, enteric coated (ASPIRIN, ENTERIC COATED) 81 mg EC tablet Follow Prescribers Instructions oxycodone HCl (OXYCODONE ORAL) PRN if needed If you have any medication changes between receiving these instructions and your surgery date, please provide this updated information with the nurse who calls you the week day prior to your surgical procedure so we can update your list and provide you with updated instructions for the morning of your procedure. [facility] 12-09-2022 History of Present illness Narrative [facility] Consult SERVICE DATE: 12/09/2022 SERVICE TIME: 1:00 PM PRIMARY CARE PHYSICIAN: No primary care provider on file. REASON FOR VISIT: May Leonard is a 81 year old female who is scheduled for REVERSE TSA at the request of Dr. PETERS for consultation. My final recommendation will be communicated back to the requesting physician by way of shared medical record or letter. The patient has the following: ACTIVE PROBLEM LIST Special Screening for Malignant Neoplasms, Colon Benign Neoplasm of Colon Sebaceous Cyst Subjective CHIEF COMPLAINT: SHOULDER PAIN 81yo female, exsmoker who underwent R TSA 09/30/22 in [place]. She fell 11/26/22 after becoming dizzy and falling backwards. Lives alone, wearing a sling currently. R handed. PMH: HTN, migraines, spinal stenosis, anxiety. Taking ASA and will verify stop date with surgeon. PAST MEDICAL HISTORY Diagnosis Date Arthritis spine and foot Benign neoplasm of colon Hypertension Migraine, intractable Spinal stenosis PAST SURGICAL HISTORY Procedure Laterality Date COLONOSCOPY FLX DX W/COLLJ SPEC WHEN PFRMD 09/10/2008 Colonoscopy LEG SURGERY HX 2002 surgery on lower leg and ankle POST-CATARACT LASER SURGERY Bilateral PT ED ORTHOPAEDICS Right 09/30/2022 REVISE MEDIAN N/CARPAL TUNNEL SURG Bilateral TONSILLECTOMY PRIMARY/SECONDARY <AGE 14 Tonsillectomy No family history on file. SOCIAL HISTORY: Social History Tobacco Use Smoking status: Former Types: Cigarettes Quit date: 1960 Years since quittin.3 Smokeless tobacco: Never Substance Use Topics Alcohol use: Yes Comment: fracisco 1 drink daily Drug use: Never Prior to Admission medications as of 12/09/22 1209 Medication Sig Last Dose Taking celecoxib (CELEBREX) 200 mg capsule Take 200 mg by mouth every morning. No hold date yet-will call office today 12/08 Yes LISINOPRIL ORAL Take 20 mg by mouth every morning. Yes LORazepam (ATIVAN) 0.5 mg Take by mouth daily at bedtime. Yes multivit-min/iron/folic/lutein (MULTIVITAMIN WOMEN 50 PLUS ORAL) Take by mouth once daily. Last dose 12/08 Yes calcium carbonate/vitamin D3 (CALCIUM 600 + D ORAL) Take by mouth once daily. Last dose /5 Yes acetaminophen (TYLENOL EXTRA STRENGTH ORAL) Take 1,000 mg by mouth daily at bedtime. Yes aspirin, enteric coated (ASPIRIN, ENTERIC COATED) 81 mg EC tablet Take 81 mg by mouth once daily. Will clarify last dose today ld 12/08/22 Yes oxycodone HCl (OXYCODONE ORAL) Take 5 mg by mouth as needed. Yes No medication comments found. ALLERGIES Allergen Reactions Naproxen Other: See Comments Become very anxious and passed out Prednisone Other: See Comments Made her very anxious REVIEW OF SYSTEMS: PAIN ASSESSMENT: General: No weight loss, malaise or fevers. Neuro: Postive for MIGRAINES Respiratory: No history of current cough or dyspnea, or pneumonia in the past 6 weeks. No history of respiratory/pulmonary symptoms or problems. Cardiovascular: Positive for: Hypertension GI: No history of GI symptoms or problems. No history of esophageal varices, recent ascites, or ETOH greater than 2 drinks per day. : No history of dysuria, frequency or incontinence,, stones or chronic kidney disease Endocrine: No history of diabetes. Has not taken steroids within the past 30 days. No history of endocrinological symptoms or problems. Hematology: Chronic anti-coagulation / platelet meds (Aspirin) Oncology: No history of CA metastasis, chemo within 30 days, or radiotherapy within 90 days. Has not lost 10% of body wt in 6 months. No history of oncological symptoms or problems. Psych: Anxiety Musculoskeletal: Back pain and Joint pain Skin: Negative for lesions, rash and itching. Objective PHYSICAL EXAM: VITALS: BP 146/67 Pulse 65 Resp 20 Ht 5' 4 (1.63m) Wt 118 lb (53.5kg) SpO2 97% BMI 20.24 kg/(m^2). General: Alert and oriented, Healthy appearance Skin: Normal color, no rash, no lesions. Extremities: Joint tenderness right shoulder Neurological: Normal cognition and motor skills. Gait normal. No weakness or sensory deficit. Diagnostic tests reviewed for today's visit: Lab Value Units Date High Low HB 9.9 g/dL 12/09/2022 15.5 11.5 HCT 28.6 % 12/09/2022 46.0 36.0 WBC 11.86 k/uL 12/09/2022 11.00 3.70 PLT 633 k/uL 12/09/2022 400 150 NA No results within date range. K No results within date range. GLUC No results within date range. BUN No results within date range. CREAT No results within date range. PTSEC 10.1 sec 12/09/2022 13.0 9.7 INR 1.0 no uni* 12/09/2022 1.3 0.9 APTT 29.7 sec 12/09/2022 32.4 23.0 ALT No results within date range. AST No results within date range. TBILI No results within date range. TSH No results within date range. Lab Value Units Date High Low HCGQT No results within date range. UHCG No results within date range. HCG, BODY* No results within date range. Lab Value Units Date High Low ABORHD No results within date range. ABSCREEN No results within date range. Hemoglobin A1C (%) Date Value 12/09/2022 5.9 PENDING Assessment/Plan I had the pleasure of meeting Chuyita today in [facility]. She is quite active for her age. She lives alone and completes her ADLs (cooking, cleaning up after meals, bathing). She has a pipelines manager coming in this week though to help her catch up on housework since she is limited by her shoulder. When she fell, she was bending down, reaching in a cupboard for something and when she stood up, she got dizzy and fell. She admits she wasn't feeling well that day and may have had a virus or slightly dehydrated. She discussed this with her PCP who didn't think she needed any testing. She is more aware of her position changes now however. ASA last dose 1 days per patient. METS: Walk indoors, such as around the house (1.75 METs) Do light work around the house, such as dusting or washing dishes (2.70 METs) Take care of self; that is eating, dressing, bathing, using the toilet (2.75 METs) Walk a block or two on level ground (2.75 METs) Climb a flight of stairs or walk up a hill (5.50 METs) ANESTHESIA FINDINGS: Intubation History: No history of difficult intubation Significant Anesthesia Considerations: None Airway History: No abnormal airway history PLAN This patient is optimally prepared for surgery pending labs and clearances. Planned Anesthetic: General and ISB Instructions Given to Patient: Instructions located in the after visit summary. Patient given verbal and written preop instructions and voices comprehension and compliance. SIGNATURE: Mindi Ward APRN.CNP PATIENT NAME: May Leonard DATE: December 09, 2022 TIME: 1:00 PM Summary: DOS MEDS PATIENT MEDICATION INSTRUCTIONS Please read below carefully for your personalized instructions. Medications: If you are on blood thinner or anticoagulants including aspirin, please confirm with your surgical team on when to stop these medications. Unless instructed differently by your surgical team, stay on all of your medications until your surgery. Pre-Surgery Med Instructions Medication Instructions celecoxib (CELEBREX) 200 mg capsule Follow Surgeon's instructions LISINOPRIL ORAL DO NOT TAKE MORNING OF SURGERY LORazepam (ATIVAN) 0.5 mg multivit-min/iron/folic/lutein (MULTIVITAMIN WOMEN 50 PLUS ORAL) DO NOT TAKE MORNING OF SURGERY calcium carbonate/vitamin D3 (CALCIUM 600 + D ORAL) DO NOT TAKE MORNING OF SURGERY acetaminophen (TYLENOL EXTRA STRENGTH ORAL) PRN if needed aspirin, enteric coated (ASPIRIN, ENTERIC COATED) 81 mg EC tablet Follow Prescribers Instructions oxycodone HCl (OXYCODONE ORAL) PRN if needed If you have any medication changes between receiving these instructions and your surgery date, please provide this updated information with the nurse who calls you the week day prior to your surgical procedure so we can update your list and provide you with updated instructions for the morning of your procedure. Revision Rev R TSA 12/15 [facility] 81yo female, exsmoker who underwent R TSA 09/30/22 in [place]. She fell 11/26/22 after becoming dizzy and falling backwards. Lives alone, wearing a sling currently. R handed. PMH: HTN, migraines, spinal stenosis, anxiety. Taking ASA and will verify stop date with surgeon. documented in this encounter [facility] 12-09-2022 Note HNO ID: [id number] Author: Hailey Araujo APRN.CNP Service: ? Author Type: Nurse Practitioner Type: Progress Notes Filed: 12/09/2022 1:11 PM Note Text: Revision Rev R TSA 12/15 [facility] 81yo female, exsmoker who underwent R TSA 09/30/22 in [place]. She fell 11/26/22 after becoming dizzy and falling backwards. Lives alone, wearing a sling currently. R handed. PMH: HTN, migraines, spinal stenosis, anxiety. Taking ASA and will verify stop date with surgeon. [facility] 12-09-2022 Instructions Mindi Ward APRN.CNP - 12/09/2022 12:26 PM EDT PATIENT MEDICATION INSTRUCTIONS Please read below carefully for your personalized instructions. Medications: If you are on blood thinner or anticoagulants including aspirin, please confirm with your surgical team on when to stop these medications. Unless instructed differently by your surgical team, stay on all of your medications until your surgery. Pre-Surgery Med Instructions Medication Instructions celecoxib (CELEBREX) 200 mg capsule Follow Surgeon's instructions LISINOPRIL ORAL DO NOT TAKE MORNING OF SURGERY LORazepam (ATIVAN) 0.5 mg multivit-min/iron/folic/lutein (MULTIVITAMIN WOMEN 50 PLUS ORAL) DO NOT TAKE MORNING OF SURGERY calcium carbonate/vitamin D3 (CALCIUM 600 + D ORAL) DO NOT TAKE MORNING OF SURGERY acetaminophen (TYLENOL EXTRA STRENGTH ORAL) PRN if needed aspirin, enteric coated (ASPIRIN, ENTERIC COATED) 81 mg EC tablet Follow Prescribers Instructions oxycodone HCl (OXYCODONE ORAL) PRN if needed If you have any medication changes between receiving these instructions and your surgery date, please provide this updated information with the nurse who calls you the week day prior to your surgical procedure so we can update your list and provide you with updated instructions for the morning of your procedure. documented in this encounter [facility] Narrative No data available for this section [facility] Hospital Discharge instructions No data available for this section [facility] Progress note No data available for this section [facility] Reason for referral (narrative)* Outpatient Procedure (Routine) - Outside PCP Specialty Diagnoses / Procedures Referred By Álvaro t [facility] Diagnoses Pre-op testing Procedures ECG COMPLETE ECG ROUTINE ECG W/LEAST 12 LDS W/I&R Alana Peters DO [address] [place] [address] [facility] [place] [address] [place] [address] Referral ID Status Reason Start Date Expiration Date Visits Requested Visits Authorized [id number] Outside PCP Auto-Generat ed Referral 12/08/2022 12/08/2023 1 1 [facility] Summary Purpose Family History No Family History Records FoundNo Family History Records Found Advance Directives No Advanced Directives Records FoundNo Advanced Directives Records Found Additional Source Comments Source Comments (unrecognize d section and content) In the event this informatio n is protected by the Federal Confidentiality of Alcohol and Drug Abuse Patient Records regulations: The Federal rules restrict any use of the information to criminally investigate or prosecute any alcohol or drug abuse patient.[facility] INFORMATION SOURCE (unrecogn ized section and content) DATE CREATED AUTHOR AUTHOR'S [place]AWNEE ATION 03/12/2023 [facility]ly [facility] [place] Patient Care team informatio n (unrecognized section and content) Care Team Personnel Name: PHYSICIAN, NONE Position: Physician Member Role: Primary Care Physician Care Team Related Persons Name: JESSICA BARAJAS FOR RECORDS PERTAINING TO PATIENTS WHO ARE OR HAVE BEEN ENROLLED IN A CHEMICAL DEPENDENCY/SUBSTANCEABUSE PROGRAM, SOME INFORMATION MAY BE OMITTED. This clinical summary was aggregated from multiple sources. Caution should be exercised in using it in the provision of clinical care. This summary normalizes information from multiple sources, and as a consequence, information in this document may materially change the coding, format and clinical context of patient data. In addition, data may be omitted in some cases. CLINICAL DECISIONS SHOULD BE BASED ON THE PRIMARY CLINICAL RECORDS. [facility] [employer] [facility]. provides no warranty or guarantee of the accuracy or completeness of information in this document.
== END | disposition home or self-care (01) ==
LOC: MTRAD 12:34
PROVIDERS: PCP Family Medicine; Referring Provider Family Medicine; Visit Provider Family Medicine
DX: M25.559 Pain in unspecified hip (principal)
CPT/HCPCS: 73502

== ENCOUNTER 2023-11-24 13:00 | Outpatient (RCR) | payer MEDICARE, OTHER, SELFPAY ==
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
== END 2023-11-24 19:00 | disposition home or self-care (01) ==
LOC: PT 13:00
PROVIDERS: PCP Family Medicine; Visit Provider Physician Assistant
DX: M51.16 Intervertebral disc disorders with radiculopathy, lumbar region
CPT/HCPCS: 97110; 97140; 97162

== ENCOUNTER 2023-12-10 08:33 | Inpatient (IN) | payer MEDICARE, OTHER, SELFPAY ==
[2023-12-10] VITALS (9 sets, daily range): BP systolic 137–175; BP diastolic 61–88; PULSE 52–89; RESP 14–18; TEMP 36.3–36.6; O2SAT 95–100; BMI 19.3; BMI 19.8
--- NOTE | 2023-12-10 08:38 | ED.VIS.GI ---
HPI HPI - GI History of Present Illness Chief Complaint: GI Bleed Nausea/Vomiting/Emesis GI Symptom: Negative for Nausea or Vomiting Diarrhea/Melena/Hematochezia GI Symptom: Positive for Hematochezia; Negative for Diarrhea or Melena Onset: Yesterday Stool Quality: Positive for BRB per rectum Severity: Moderate Episodes: 2 Associated Symptoms Associated Symptoms: Negative for Dysuria, Frequency or Hematuria Narrative Narrative: Patient presents with rectal bleeding that began yesterday. Patient states she had a small amount of bleeding yesterday. Patient states that she had another bowel movement today and noted some bright red blood in her toilet. Patient denies any abdominal pain. Patient denies any nausea or vomiting. Patient denies any dysuria, hematuria, or frequency. Patient denies any pain with bowel movements. Patient denies any fevers or chills. [facility] Medical History Alcohol use Ambulates with cane Anxiety Arthritis Back pain Constipation Former smoker History of echocardiogram History of fracture of leg History of pain when walking History of steroid therapy Hypertension Leg cramps Migraine headache Post-menopausal Wears glasses Home Medications celecoxib 200 mg capsule 200 mg PO DAILY 10/23/21 [History Last Taken 09/25/22] lisinopril 20 mg tablet 20 mg PO DAILY 10/23/21 [History Last Taken 09/30/22 06:30] acetaminophen 325 mg tablet (Tylenol) 650 mg PO Q4H PRN Pain 09/20/22 [History Last Taken 09/29/22] calcium carbonate 600 mg-vitamin D3 5 mcg (200 unit) tablet 1 tab PO DAILY 09/20/22 [History Last Taken 09/25/22] lorazepam 0.5 mg tablet 0.5 mg PO QHS PRN Sleep 09/20/22 [History Last Taken 09/30/22 06:30] coacxntb-jtfh-ltyr 8 mg-folic 400 mcg-K 50 mcg-lutein 300 mcg tablet (Multivitamin Women 50 Plus) 1 tab PO DAILY 09/20/22 [History Last Taken 09/25/22] psyllium 1 packet PO DAILY 09/20/22 [History Last Taken 09/25/22] aspirin 81 mg tablet,delayed release 81 mg PO BID 28 days #56 tabs 10/01/22 [Rx Last Taken Unknown] famotidine 20 mg tablet 20 mg PO DAILY 30 days #30 tabs 10/01/22 [Rx Last Taken Unknown] oxycodone 5 mg tablet 5 - 10 mg (1 - 2 x 5 mg) PO Q4H PRN PRN Pain Score 4-10 7 days #42 tabs 10/01/22 [Rx Last Taken Unknown] sennosides 8.6 mg-docusate sodium 50 mg tablet (Stool Softener-Stimulant Laxative) 2 tab PO BID 7 days #28 tabs 10/01/22 [Rx Last Taken Unknown] apixaban 2.5 mg tablet (Eliquis) 2.5 mg PO BID #20 tabs 03/23/23 [Rx Last Taken Unknown] doxycycline hyclate 100 mg tablet 200 mg (2 x 100 mg) PO .one time dose #2 tabs 06/25/23 [Rx Last Taken Unknown] propranolol 60 mg capsule,24 hr,extended release 60 mg PO QHS 12/10/23 [History Last Taken Unknown] tramadol 50 mg tablet 50 mg PO TID PRN 12/10/23 [History Last Taken Unknown] Allergy/AdvReac Type Severity Reaction Status Date / Time venom-honey bee Allergy Hives Verified 12/10/23 08:34 venom-wasp Allergy Hives Verified 12/10/23 08:34 naproxen AdvReac Other Verified 12/10/23 08:34 prednisone AdvReac Other Verified 12/10/23 08:34 Surgical History Hx of colonoscopy Hx of left cataract extraction Hx of right cataract extraction Social History Smoking Status: Never smoker ROS ROS ED Constitutional Constitutional ED: Denies chills or fever(s) Eyes Eyes: Denies blurry vision or change in vision ENT ENT ED: Denies rhinorrhea or sore throat Cardiovascular Cardiovascular: Denies chest pain or palpitations Respiratory/Chest Respiratory/Chest: Denies cough or dyspnea Gastrointestinal Gastrointestinal: Reports as per HPI and rectal bleeding; Denies abdominal pain, nausea or vomiting Genitourinary Genitourinary ED: Denies dysuria or hematuria Musculoskeletal Musculoskeletal: Reports back pain; Denies neck pain Integumentary Denies abscess or rash Neurologic Neurologic: Denies headache(s) or weakness Allergic/Immunologic Allergic/Immunologic ED: Denies mouth swelling or urticaria EXAM Physical Exam Const Vital Signs: 12/10/23 08:34 12/10/23 08:33 12/10/23 09:26 Temperature 97.3 F L Temperature Source Temporal Pulse Rate 52 L 59 L Pulse Rate [Lying] 67 Pulse Rate [Sitting (for 1 minute prior to obtaining)] 71 Pulse Rate [Standing (for 1 minute prior to obtaining)] 63 Respiratory Rate 14 14 Blood Pressure 149/81 H 175/82 H Blood Pressure [Lying] 159/78 H Blood Pressure [Sitting (for 1 minute prior to obtaining)] 170/61 H Blood Pressure [Standing (for 1 minute prior to obtaining)] 143/88 H Blood Pressure Mean 103 113 Blood Pressure Mean [Lying] 105 Blood Pressure Mean [Sitting (for 1 minute prior to obtaining)] 97 Blood Pressure Mean [Standing (for 1 minute prior to obtaining)] 106 Pulse Ox 100 98 Oxygen Delivery Method Room Air 12/10/23 10:30 12/10/23 11:48 Temperature Temperature Source Pulse Rate 89 82 Pulse Rate [Lying] Pulse Rate [Sitting (for 1 minute prior to obtaining)] Pulse Rate [Standing (for 1 minute prior to obtaining)] Respiratory Rate 16 16 Blood Pressure 157/87 H 175/87 H Blood Pressure [Lying] Blood Pressure [Sitting (for 1 minute prior to obtaining)] Blood Pressure [Standing (for 1 minute prior to obtaining)] Blood Pressure Mean 110 116 Blood Pressure Mean [Lying] Blood Pressure Mean [Sitting (for 1 minute prior to obtaining)] Blood Pressure Mean [Standing (for 1 minute prior to obtaining)] Pulse Ox 98 97 Oxygen Delivery Method Room Air Room Air Positive well nourished and well developed General Appearance ED: well developed and NAD HEENT Reports moist mucous membranes Neck supple and no JVD Resp normal respiratory effort and clear to auscultation bilaterally Cardio regular rate and regular rhythm GI non-tender and non-distended Palpation: soft Neuro CN's II-XII intact bilaterally, moves all extremities and no sensory deficits noted Sensorium / Orientation: alert Motor Exam: strength 5/5 throughout Psych mental status grossly normal MDM MDM MDM Narrative Medical decision making narrative: Differential diagnosis includes anemia, lower gastrointestinal bleeding, hemorrhoid, diverticulitis, and coagulopathy. CBC will be obtained to assess for leukocytosis and anemia. Comprehensive metabolic profile will be obtained to assess for hepatic function, renal function, and electrolyte abnormality. PT with INR and PTT will be obtained to assess for coagulopathy. Stool be obtained to assess for occult bleeding. Lab Data Attestation: I reviewed the patient's lab results. Lab results narrative: CBC was reviewed. There is a slight anemia with a hemoglobin of 11.2 and hematocrit 32.6. This is actually increased from previous result. Comprehensive metabolic profile was reviewed. Sodium was slightly low at 128 and chloride was 94. The remainder is within normal limits. PT with INR and PTT were reviewed and were within normal limits. Labs: Laboratory Results - last 24 hr 12/10/23 09:10 WBC 8.6 RBC 3.40 L Hgb 11.2 L Hct 32.6 L MCV 95.9 MCH 32.9 H MCHC 34.4 RDW Std Deviation 48.1 H RDW Coeff of Cas 13.6 Plt Count 278 MPV 9.0 Immature Gran % (Auto) 0.300 Neut % (Auto) 77.7 H Lymph % (Auto) 13.5 L Mckean % (Auto) 6.3 Eos % (Auto) 1.7 Baso % (Auto) 0.5 Absolute Neuts (auto) 6.7 Absolute Lymphs (auto) 1.17 Nucleated RBC % 0 PT 13.2 INR 1.0 APTT 30.9 Sodium 128 L Potassium 4.2 Chloride 94 L Carbon Dioxide 26.0 Anion Gap 8 BUN 18 Creatinine 0.62 Estim Creat Clear Calc 45.33 Est GFR (MDRD) Af Amer 119 Est GFR (MDRD) Non-Af 99 BUN/Creatinine Ratio 29.1 H Glucose 106 Calcium 9.0 Total Bilirubin 0.40 AST 15 ALT 16 Alkaline Phosphatase 56 Total Protein 6.3 L Albumin 3.2 Globulin 3.1 Albumin/Globulin Ratio 1.0 Management Discussion w/another healthcare provider: Hospitalist (Dr. Pop) and Counseling Specialist (Dr. Veloz from gastroenterology) Treatment and Re-Evaluation :: Patient was advised of her findings. Patient was advised of the need for hospitalization. Patient is agreeable with this. Case was discussed with the hospitalist. Patient is agreeable with admission. Case was also discussed with Dr. Veloz from gastroenterology. He will see the patient and prep the patient for colonoscopy. Patient understands and is agreeable with the plan. All questions were answered. Discharge Plan Triage Chief Complaint: GI Bleed ED Provider: Antony Mccracken Dx/Rx/DC Orders Clinical Impression: Hyponatremia, Acute lower gastrointestinal bleeding Prescriptions: No Action doxycycline hyclate 100 mg tablet 200 mg PO .one time dose Qty: 2 0RF celecoxib 200 mg capsule 200 mg PO DAILY lisinopril 20 mg tablet 20 mg PO DAILY acetaminophen [Tylenol] 325 mg Tablet 650 mg PO Q4H PRN (Reason: Pain) calcium carbonate-vitamin D3 600 mg-5 mcg (200 unit) Tablet 1 tab PO DAILY lorazepam 0.5 mg Tablet 0.5 mg PO QHS PRN (Reason: Sleep) Multivitamin Women 50 Plus 8 mg iron-400 mcg-300 mcg Tablet 1 tab PO DAILY psyllium Packet 1 packet PO DAILY Rx Instructions: mix into at least 8 oz of water or juice before administering sennosides-docusate sodium [Stool Softener-Stimulant Laxat] 8.6-50 mg Tablet 2 tab PO BID 7 Days Qty: 28 0RF famotidine 20 mg Tablet 20 mg PO DAILY 30 Days Qty: 30 0RF oxycodone 5 mg Tablet 5 - 10 mg PO Q4H PRN PRN (Reason: Pain Score 4-10) 7 Days Qty: 42 0RF aspirin 81 mg Tablet,Delayed Release (Dr/Ec) 81 mg PO BID 28 Days Qty: 56 0RF propranolol 60 mg capsule,extended release 24 hr 60 mg PO QHS tramadol 50 mg tablet 50 mg PO TID PRN Eliquis 2.5 mg tablet 2.5 mg PO BID Qty: 20 0RF Primary Care Provider: Rolf Peck Referrals: Rolf Peck MD [Primary Care Provider] - Disposition Disposition: Acute Care Hospital [facility]
[2023-12-10 09:22] LABS: Absolute Lymphocyte Count 1.17 X10^3/uL (0.83-4.51); Absolute Neutrophil Count 6.7 X10^3/uL (2.0-7.7); Basophil# 0.04 X10^3/uL; Basophil% 0.5 % (0-1); Eosinophil# 0.15 X10^3/uL; Eosinophils% 1.7 % (0-5); Hematocrit 32.6 % (37-47); Hemoglobin 11.2 g/dL (12.0-15.0); Lymphocyte # 1.17 X10^3/ul (0.83-4.51); Lymphocyte % 13.5 % (19-41); Mean Corp Hgb Conc 34.4 g/dL (32-36); Mean Corpuscular Hgb 32.9 pg (27.0-32.0); Mean Corpuscular Volume 95.9 fL (81-99); Monocyte# 0.54 X10^3/uL; Monocyte% 6.3 % (0-10); NRBC Flagged by Analyzer 0 % (0-5); Neutrophil # 6.71 X10^3/uL (2.7-7.7); Neutrophil % 77.7 % (47-70); Platelet Count 278 K/mm3 (150-450); RBC Distribution Width CV 13.6 % (11.6-14.6); RBC Distribution Width SD 48.1 fl (35.1-43.9); White Blood Count 8.6 K/mm3 (4.4-11.0)
[2023-12-10 09:32] LABS: Prothrombin Time (Protime)PT. 13.2 SECONDS (11.7-14.9)
[2023-12-10 09:33] LABS: Partial Thromboplast Time 30.9 Seconds (24.1-36.2)
[2023-12-10 09:47] LABS: AST(SGOT) 15 U/L (15-37); Alanine Aminotransfer ALT/SGPT 16 U/L (13-56); Albumin, Serum 3.2 g/dL (3.2-5.0); Alkaline Phosphatase 56 U/L (45-117); Anion Gap 8 (5-15); BUN 18 mg/dL (7-18); BUN/Creat Ratio 29.1 RATIO (10-20); Chloride 94 mmol/L (98-107); Creatinine, Serum 0.62 mg/dL (0.55-1.02); EST Glomerular Filtration Rate 99 mL/min (>60); Est Glom Filt Rate - Afr Amer 119 mL/min (>60); Estimated Creatinine Clearance 45.33 ml/min; Globulin 3.1 g/dL (2.2-4.2); Glucose 106 mg/dL (74-106); Potassium 4.2 mmol/L (3.5-5.1); Protein, Total 6.3 g/dL (6.4-8.2); Sodium Level 128 mmol/L (136-145)
[2023-12-10] MEDS: Morphine 4 MG/ML Syringe IV (12:00)
[2023-12-10] MEDS: Ondansetron 4 MG/2 ML Vial IV (12:00)
--- NOTE | 2023-12-10 12:01 | CT_ITS ---
INDICATION: Rule out diverticular bleed EXAMINATION: CTA abdomen and pelvis - TECHNIQUE: Routine abdominal CT angiogram protocol was performed with IV contrast. MIP images provided. A radiation dose optimization technique was used for this scan. IV Contrast dosage and agent: 100 cc of Isovue-370 RADIATION DOSAGE (If Supplied By Facility): CTDIvol = ( 22.34 ) mGy, DLP = ( 402.45 ) mGycm COMPARISON: No relevant prior comparison study available FINDINGS: Lung bases: Mild atelectatic changes or scarring in the left lower lung. Normal heart size. Liver: Subtle 1.1 cm hypodense lesion with peripheral enhancement of the liver difficult to characterize due to arterial phase of scanning be due to hemangioma. Hepatomegaly. Gallbladder: No evidence of gallstones. Spleen: No splenomegaly. Adrenal gland: No adrenal nodules. Kidneys: No hydronephrosis or stone formation. Pancreas:Essentially unremarkable. Bowel gas pattern: Nonspecific gaseous small bowel loops. No evidence of bowel obstruction. No evidence of acute diverticulitis. The appendix is not identified. Left inguinal hernia containing small bowel loop without evidence of bowel obstruction. Free air: None. Free fluid: None. Pelvis: Pelvic organs: 7.2 cm cystic lesion in the left adnexal region which further evaluation with nonemergent MRI might be of value. Bone survey: Levoscoliosis of the lumbar spine. Advanced multilevel degenerative changes. Right hip pinning. Adenopathy: No significant pathologic adenopathy detected. Other: None. Vascular: Atherosclerotic calcifications of the abdominal aorta without evidence of aneurysm. No significant stenosis seen of the celiac axis, SMA or bilateral renal arteries. Patent GAVIN. No extravasated contrast is seen and no evidence of acute bleeding at this time. CT/CTA Abd/Pelvis W/WO Contrast IMPRESSION: 1. No evidence of active vascular bleeding at the time this examination was performed. 2. Left inguinal hernia containing small bowel loop without evidence of bowel obstruction. 3. Hepatomegaly. 4. Indeterminate small liver lesion could be due to hemangioma but difficult to characterize at this time. 5. Large left adnexal cystic lesion for which further evaluation with nonemergent MRI might be of value. 6. Diverticulosis without evidence of acute diverticulitis. Electronically Signed: Ja San MD at 13:12 EDT ,
--- NOTE | 2023-12-10 12:13 | HP.PCM.HOS_ITS ---
[facility] - General General Date of Admission: 12/10/23 Date of Service: 12/10/23 Chief Complaint: Bleeding per rectum [facility] Narrative GEORGINA LEONARD, is a 82 F with past medical history significant for osteoarthritis, hypertension who presents with bleeding per rectum. Patient symptoms started the day prior to her admission. She did note a small amount of blood in her stool. She denied any nausea no vomiting no abdominal pain. She had a recurrence of her symptoms on the morning of her presentation necessitating patient presenting to the emergency department. She denied taking any oygf-fsp-irkzaaz pain medications such as ibuprofen. Currently not on any anticoagulants. Patient was found to be hemodynamically stable. She was started on crossmatch started on Protonix and admitted to a monitored bed with consultation placed to GI from the ED [facility] Medical History Alcohol use Ambulates with cane Anxiety Arthritis Back pain Constipation Former smoker History of echocardiogram History of fracture of leg History of pain when walking History of steroid therapy Hypertension Leg cramps Migraine headache Post-menopausal Wears glasses Home Medications celecoxib 200 mg capsule 200 mg PO DAILY 10/23/21 [History Last Taken 12/09/23] lisinopril 20 mg tablet 20 mg PO DAILY 10/23/21 [History Last Taken 12/09/23] acetaminophen 325 mg tablet (Tylenol) 650 mg PO Q4H PRN Pain 09/20/22 [History Last Taken 09/29/22] calcium carbonate 600 mg-vitamin D3 5 mcg (200 unit) tablet 1 tab PO DAILY 09/20/22 [History Last Taken 12/09/23] lorazepam 0.5 mg tablet 0.5 mg PO QHS PRN Sleep 09/20/22 [History Last Taken 12/09/23] zlgununj-pwez-rpzw 8 mg-folic 400 mcg-K 50 mcg-lutein 300 mcg tablet (Multivitamin Women 50 Plus) 1 tab PO DAILY 09/20/22 [History Last Taken 12/09/23] propranolol 60 mg capsule,24 hr,extended release 60 mg PO QHS 12/10/23 [History Last Taken Unknown] tramadol 50 mg tablet 50 mg PO TID PRN 12/10/23 [History Last Taken 12/09/23] Allergy/AdvReac Type Severity Reaction Status Date / Time venom-honey bee Allergy Hives Verified 12/10/23 08:34 venom-wasp Allergy Hives Verified 12/10/23 08:34 naproxen AdvReac Other Verified 12/10/23 08:34 prednisone AdvReac Other Verified 12/10/23 08:34 Surgical History Hx of colonoscopy Hx of left cataract extraction Hx of right cataract extraction Social History Smoking Status: Never smoker ROS ROS Narrative GENERAL: denies fever, chills, night sweats, weight loss, anorexia HEENT: denies headache, sinus congestion, or drainage, dysphagia RESPIRATORY: denies cough, sputum production, shortness of breath, dyspnea on exertion CARDIAC: denies chest pain, palpitations, orthopnea, PND GASTROINTESTINAL: hematochezia GENITOURINARY: denies dysuria, urgency, frequency, heamaturia EXTREMITY: denies swelling MUSCULOSKELETAL: denies current joint pain or tenderness NEUROLOGIC: denies focal numbness, weakness, tingling HEMATOLOGIC: denies easy bruising and/or hemorrhage INTEGUMENT: denies rashes PSYCHIATRIC: denies suicidal or homicidal ideation Vital Signs Vital Signs Vital Signs: 12/10/23 08:34 12/10/23 08:33 12/10/23 09:26 Temperature 97.3 F L Temperature Source Temporal Pulse Rate 52 L 59 L Pulse Rate [Lying] 67 Pulse Rate [Sitting (for 1 minute prior to obtaining)] 71 Pulse Rate [Standing (for 1 minute prior to obtaining)] 63 Respiratory Rate 14 14 Blood Pressure 149/81 H 175/82 H Blood Pressure [Lying] 159/78 H Blood Pressure [Sitting (for 1 minute prior to obtaining)] 170/61 H Blood Pressure [Standing (for 1 minute prior to obtaining)] 143/88 H Blood Pressure Mean 103 113 Blood Pressure Mean [Lying] 105 Blood Pressure Mean [Sitting (for 1 minute prior to obtaining)] 97 Blood Pressure Mean [Standing (for 1 minute prior to obtaining)] 106 Pulse Ox 100 98 Oxygen Delivery Method Room Air 12/10/23 10:30 12/10/23 11:48 Temperature Temperature Source Pulse Rate 89 82 Pulse Rate [Lying] Pulse Rate [Sitting (for 1 minute prior to obtaining)] Pulse Rate [Standing (for 1 minute prior to obtaining)] Respiratory Rate 16 16 Blood Pressure 157/87 H 175/87 H Blood Pressure [Lying] Blood Pressure [Sitting (for 1 minute prior to obtaining)] Blood Pressure [Standing (for 1 minute prior to obtaining)] Blood Pressure Mean 110 116 Blood Pressure Mean [Lying] Blood Pressure Mean [Sitting (for 1 minute prior to obtaining)] Blood Pressure Mean [Standing (for 1 minute prior to obtaining)] Pulse Ox 98 97 Oxygen Delivery Method Room Air Room Air Weight Weight: 51.2 kg Body Mass Index (BMI) 19.3 Physical Exam Narrative GENERAL: cooperative HEENT: Atraumatic; normocephalic EYES; Anicteric, Normal Conjunctiva NECK; supple, normal thyroid, RESPIRATORY: Diminished to auscultation CARDIOVASCULAR: Regular S1 S2, GI: soft, normoactive bowel sounds, : No Renal angle tenderness; EXTREMITIES: No edema, no clubbing, MUSCULOSKELETAL: no muscle wasting NEURO: Awake; no lateralizing signs. SKIN: No Rash PSYCH; Flat affect Results Lab / Micro Data 12/10/23 09:10 12/10/23 09:10 Labs: Laboratory Results - last 24 hr 12/10/23 09:10: WBC 8.6, RBC 3.40 L, Hgb 11.2 L, Hct 32.6 L, MCV 95.9, MCH 32.9 H, MCHC 34.4, RDW Std Deviation 48.1 H, RDW Coeff of Cas 13.6, Plt Count 278, MPV 9.0, Immature Gran % (Auto) 0.300, Neut % (Auto) 77.7 H, Lymph % (Auto) 13.5 L, [place] % (Auto) 6.3, Eos % (Auto) 1.7, Baso % (Auto) 0.5, Absolute Neuts (auto) 6.7, Absolute Lymphs (auto) 1.17, Nucleated RBC % 0, PT 13.2, INR 1.0, APTT 30.9, Sodium 128 L, Potassium 4.2, Chloride 94 L, Carbon Dioxide 26.0, Anion Gap 8, BUN 18, Creatinine 0.62, Estim Creat Clear Calc 45.33, Est GFR (MDRD) Af Amer 119, Est GFR (MDRD) Non-Af 99, BUN/Creatinine Ratio 29.1 H, Glucose 106, Calcium 9.0, Total Bilirubin 0.40, AST 15, ALT 16, Alkaline Phosphatase 56, Total Protein 6.3 L, Albumin 3.2, Globulin 3.1, Albumin/Globulin Ratio 1.0 Micro: Microbiology 12/10/23 11:00 Stool Stool Occult Blood (TERRI) - Final Occult Blood Positive Assessment & Plan Assessment/Plan (1) Acute lower gastrointestinal bleeding: (2) Hyponatremia: PLAN: Plan Patient is an 82-year-old lady who presented with bleeding per rectum 1. Bleeding per rectum ? CT of the abdomen and pelvis ordered to rule out diverticular bleed. Patient has been admitted to monitored bed ordered H&H every 4 hours. Patient was started on crossmatch for 2 unit PRBC. Patient was started on Protonix drip with consultation placed to GI for possible endoscopic evaluation 2. Hyponatremia ? Suspected to be secondary to hypovolemic hyponatremia patient started on saline with repeat BMP ordered in a.m. 3. Generalized osteoarthritis ? Patient is on celecoxib held given her rectal bleed. Patient was placed on Tylenol as needed 4. Hypertension - Blood pressure controlled, home medications continued with dose adjustment as needed 5. DVT prophylaxis ? Bilateral SCDs only given patient presentation Time spent in the patient's overall evaluation,decision-making process, review of diagnostic data, adjustment of management, discussion with other providers, nursing nursing and ancillary staff involved in patient's care documentation, 55 minutes Advance planning; did discuss with the patient and family regarding advanced directives as well as CODE STATUS. Did explain the various scenarios involved ( FULL CODE, DNR CCA, DNR CCA with no intubation, and DNR CC and what each meant) patient elected remain full code with CPR and intubation if needed. Order was placed. Time spent on discussion 18 minutes. Charges/Coding Visit Charges Inpatient E&M: 03192 Init Hosp L2 Procedures Hospitalists Procedures: 74580 Advncd Care Plan 30 Min
[2023-12-10 13:43] LABS: Hematocrit 33.8 % (37-47); Hemoglobin 11.6 g/dL (12.0-15.0)
--- NOTE | 2023-12-10 16:31 | CON.PCM.GI_ITS ---
HPI Consult Data Date of Consult: 12/10/23 HPI Narrative Reason for Consultation: GI bleeding HPI Narrative: GEORGINA LEONARD, is a 82 F who presents with rectal bleeding that began yesterday. Patient states she had a small amount of bleeding yesterday. Patient states that she had another bowel movement today and noted some bright red blood in her toilet. Patient denies any abdominal pain. Patient denies any nausea or vomiting. Patient denies any dysuria, hematuria, or frequency. Patient denies any pain with bowel movements. Patient denies any fevers or chills. IMPRESSION: 1. No evidence of active vascular bleeding at the time this examination was performed. 2. Left inguinal hernia containing small bowel loop without evidence of bowel obstruction. 3. Hepatomegaly. 4. Indeterminate small liver lesion could be due to hemangioma but difficult to characterize at this time. 5. Large left adnexal cystic lesion for which further evaluation with nonemergent MRI might be of value. 6. Diverticulosis without evidence of acute diverticulitis. [facility] Medical History Alcohol use Ambulates with cane Anxiety Arthritis Back pain Constipation Former smoker History of echocardiogram History of fracture of leg History of pain when walking History of steroid therapy Hypertension Leg cramps Migraine headache Post-menopausal Wears glasses Home Medications celecoxib 200 mg capsule 200 mg PO DAILY 10/23/21 [History Last Taken 12/09/23] lisinopril 20 mg tablet 20 mg PO DAILY 10/23/21 [History Last Taken 12/09/23] acetaminophen 325 mg tablet (Tylenol) 650 mg PO Q4H PRN Pain 09/20/22 [History Last Taken 09/29/22] calcium carbonate 600 mg-vitamin D3 5 mcg (200 unit) tablet 1 tab PO DAILY 09/20/22 [History Last Taken 12/09/23] lorazepam 0.5 mg tablet 0.5 mg PO QHS PRN Sleep 09/20/22 [History Last Taken 12/09/23] htlndunx-welq-pamq 8 mg-folic 400 mcg-K 50 mcg-lutein 300 mcg tablet (Multivitamin Women 50 Plus) 1 tab PO DAILY 09/20/22 [History Last Taken 12/09/23] propranolol 60 mg capsule,24 hr,extended release 60 mg PO QHS tremor 12/10/23 [History Last Taken 12/08/23] tramadol 50 mg tablet 50 mg PO TID PRN 12/10/23 [History Last Taken 12/09/23] Allergy/AdvReac Type Severity Reaction Status Date / Time venom-honey bee Allergy Hives Verified 12/10/23 08:34 venom-wasp Allergy Hives Verified 12/10/23 08:34 naproxen AdvReac Other Verified 12/10/23 08:34 prednisone AdvReac Other Verified 12/10/23 08:34 Surgical History (Updated 12/10/23 @ 13:30 by Anne Vega) H/O shoulder replacement Hx of colonoscopy Hx of left cataract extraction Hx of right cataract extraction Social History Smoking Status: Former smoker ROS ROS Narrative GENERAL: denies fever, chills, night sweats, weight loss, anorexia HEENT: denies headache, sinus congestion, or drainage, dysphagia RESPIRATORY: denies cough, sputum production, shortness of breath, dyspnea on exertion CARDIAC: denies chest pain, palpitations, orthopnea, PND GASTROINTESTINAL: hematochezia GENITOURINARY: denies dysuria, urgency, frequency, heamaturia EXTREMITY: denies swelling MUSCULOSKELETAL: denies current joint pain or tenderness NEUROLOGIC: denies focal numbness, weakness, tingling HEMATOLOGIC: denies easy bruising and/or hemorrhage INTEGUMENT: denies rashes PSYCHIATRIC: denies suicidal or homicidal ideation Physical Exam Narrative GENERAL: cooperative HEENT: Atraumatic; normocephalic EYES; Anicteric, Normal Conjunctiva NECK; supple, normal thyroid, RESPIRATORY: Diminished to auscultation CARDIOVASCULAR: Regular S1 S2, GI: soft, normoactive bowel sounds, : No Renal angle tenderness; EXTREMITIES: No edema, no clubbing, MUSCULOSKELETAL: no muscle wasting NEURO: Awake; no lateralizing signs. SKIN: No Rash PSYCH; Flat affect Lab / Micro Data 12/10/23 13:25 12/10/23 09:10 Labs: Laboratory Results - last 24 hr 12/10/23 09:10: WBC 8.6, RBC 3.40 L, Hgb 11.2 L, Hct 32.6 L, MCV 95.9, MCH 32.9 H, MCHC 34.4, RDW Std Deviation 48.1 H, RDW Coeff of Cas 13.6, Plt Count 278, MPV 9.0, Immature Gran % (Auto) 0.300, Neut % (Auto) 77.7 H, Lymph % (Auto) 13.5 L, Boone % (Auto) 6.3, Eos % (Auto) 1.7, Baso % (Auto) 0.5, Absolute Neuts (auto) 6.7, Absolute Lymphs (auto) 1.17, Nucleated RBC % 0, PT 13.2, INR 1.0, APTT 30.9, Sodium 128 L, Potassium 4.2, Chloride 94 L, Carbon Dioxide 26.0, Anion Gap 8, BUN 18, Creatinine 0.62, Estim Creat Clear Calc 45.33, Est GFR (MDRD) Af Amer 119, Est GFR (MDRD) Non-Af 99, BUN/Creatinine Ratio 29.1 H, Glucose 106, Calcium 9.0, Total Bilirubin 0.40, AST 15, ALT 16, Alkaline Phosphatase 56, Total Protein 6.3 L, Albumin 3.2, Globulin 3.1, Albumin/Globulin Ratio 1.0, Blood Type A NEGATIVE, Antibody Screen NEGATIVE, Crossmatch See Detail 12/10/23 13:25: Hgb 11.6 L, Hct 33.8 L Micro: Microbiology 12/10/23 11:00 Stool Stool Occult Blood (TERRI) - Final Occult Blood Positive Imaging Radiology Impression Abdomen/Pelvis CTA 12/10/23 12:01 IMPRESSION: 1. No evidence of active vascular bleeding at the time this examination was performed. 2. Left inguinal hernia containing small bowel loop without evidence of bowel obstruction. 3. Hepatomegaly. 4. Indeterminate small liver lesion could be due to hemangioma but difficult to characterize at this time. 5. Large left adnexal cystic lesion for which further evaluation with nonemergent MRI might be of value. 6. Diverticulosis without evidence of acute diverticulitis. Electronically Signed: Ja San MD at 13:12 EDT , Assessment & Plan Assessment/Plan (1) Acute lower gastrointestinal bleeding: PLAN: Differential diagnosis for lower GI bleeding does include ischemic colitis, diverticular, upper GI bleed with rapid transit. She should undergo a colonoscopy and possible upper endoscopy to evaluate the etiology of her GI bleed. She also takes Celebrex which does increase her risk of GI bleeding. Recommend to hold that while she is in the hospital. Charges/Coding Visit Charges Inpatient E&M: 16522 Subs Hosp L3
[2023-12-10] MEDS: 0.9% Normal Saline (1000mL) 1,000 ML 150 ML IV ×2 (16:37→23:07)
[2023-12-10] MEDS: Pantoprazole Sodium 80 MG in 0.9% Normal Saline (50mL Bag) 15 ML 420 MG IV BOLUS (16:40)
[2023-12-10] MEDS: Acetaminophen 325 MG Tablet 650 MG PO (17:06)
[2023-12-10] MEDS: Pantoprazole Sodium 80 MG in 0.9% Normal Saline (100mL Bag) 80 ML 10 MG CONT INF (17:06)
[2023-12-10] MEDS: HYDROmorphone 1 MG/ML Syringe IV (17:50)
[2023-12-10 20:06] LABS: Hematocrit 32.2 % (37-47)
[2023-12-10] MEDS: Propranolol LA 60 MG Capsule PO (21:32)
[2023-12-10] MEDS: LORazepam 0.5 MG Tablet PO (21:32)
[2023-12-10] MEDS: traMADol 50 MG Tablet PO (21:36)
[2023-12-11 02:06] LABS: Hematocrit 29.3 % (37-47); Hemoglobin 10.1 g/dL (12.0-15.0)
[2023-12-11] MEDS: Pantoprazole Sodium 80 MG in 0.9% Normal Saline (100mL Bag) 80 ML 10 MG CONT INF ×3 (02:06→23:55)
[2023-12-11 03:30] VITALS: BP 128/81; PULSE 55; RESP 16; TEMP 36.2; O2SAT 95
[2023-12-11] MEDS: 0.9% Normal Saline (1000mL) 1,000 ML 150 ML IV ×3 (05:36→19:12)
[2023-12-11 07:00] LABS: Absolute Lymphocyte Count 1.47 X10^3/uL (0.83-4.51); Absolute Neutrophil Count 3.6 X10^3/uL (2.0-7.7); Basophil# 0.05 X10^3/uL; Basophil% 0.9 % (0-1); Eosinophil# 0.23 X10^3/uL; Eosinophils% 3.9 % (0-5); Hematocrit 29.7 % (37-47); Hemoglobin 9.8 g/dL (12.0-15.0); Lymphocyte # 1.47 X10^3/ul (0.83-4.51); Mean Corpuscular Hgb 32.2 pg (27.0-32.0); Mean Corpuscular Volume 97.7 fL (81-99); Mean Platelet Vol. 9.4 fl (6.2-12.0); Monocyte# 0.48 X10^3/uL; Monocyte% 8.2 % (0-10); NRBC Flagged by Analyzer 0 % (0-5); Neutrophil # 3.63 X10^3/uL (2.7-7.7); Neutrophil % 61.7 % (47-70); Platelet Count 289 K/mm3 (150-450); RBC Distribution Width CV 14.1 % (11.6-14.6); RBC Distribution Width SD 50.8 fl (35.1-43.9); Red Blood Count 3.04 M/mm3 (4.2-5.4); White Blood Count 5.9 K/mm3 (4.4-11.0)
[2023-12-11 08:15] LABS: Anion Gap 6 (5-15); BUN 10 mg/dL (7-18); BUN/Creat Ratio 19.3 RATIO (10-20); Calcium,Total 8.6 mg/dL (8.5-10.1); Chloride 101 mmol/L (98-107); Creatinine, Serum 0.52 mg/dL (0.55-1.02); EST Glomerular Filtration Rate 121 mL/min (>60); Est Glom Filt Rate - Afr Amer 146 mL/min (>60); Estimated Creatinine Clearance 43.47 ml/min; Glucose 97 mg/dL (74-106); Magnesium 1.9 mg/dL (1.6-2.6); Phosphorus 2.9 mg/dL (2.5-4.9); Potassium 4.3 mmol/L (3.5-5.1); Sodium Level 132 mmol/L (136-145)
--- NOTE | 2023-12-11 08:16 | PCM.PN.HOSP ---
Reason for Visit Reason for Visit: Diagnoses Hypo-osmolality and hyponatremia (12/10/23) Gastrointestinal hemorrhage, unspecified (12/10/23) Objective Data Objective Data Vital Signs: Vital Signs Temp Pulse Resp BP Pulse Ox O2 Del Method 97.1 F L 55 L 16 128/81 H 95 Room Air 12/11/23 03:30 12/11/23 03:30 12/11/23 03:30 12/11/23 03:30 12/11/23 03:30 12/11/23 03:30 Oxygen Delivery Method Room Air Weight: 49.1 kg Body Mass Index (BMI) 19.8 Intake & Output: Intake and Output for Last 24 Hours 12/09/23 12/10/23 12/11/23 23:59 23:59 23:59 Intake Total 2210 / 2210 1062.5 / 1062.5 Balance 2210 / 2210 1062.5 / 1062.5 Lab / Micro Data 12/11/23 05:45 12/11/23 05:45 Labs: Laboratory Results - last 24 hr 12/10/23 09:10: WBC 8.6, RBC 3.40 L, Hgb 11.2 L, Hct 32.6 L, MCV 95.9, MCH 32.9 H, MCHC 34.4, RDW Std Deviation 48.1 H, RDW Coeff of Cas 13.6, Plt Count 278, MPV 9.0, Immature Gran % (Auto) 0.300, Neut % (Auto) 77.7 H, Lymph % (Auto) 13.5 L, Edmunds % (Auto) 6.3, Eos % (Auto) 1.7, Baso % (Auto) 0.5, Absolute Neuts (auto) 6.7, Absolute Lymphs (auto) 1.17, Nucleated RBC % 0, PT 13.2, INR 1.0, APTT 30.9, Sodium 128 L, Potassium 4.2, Chloride 94 L, Carbon Dioxide 26.0, Anion Gap 8, BUN 18, Creatinine 0.62, Estim Creat Clear Calc 45.33, Est GFR (MDRD) Af Amer 119, Est GFR (MDRD) Non-Af 99, BUN/Creatinine Ratio 29.1 H, Glucose 106, Calcium 9.0, Total Bilirubin 0.40, AST 15, ALT 16, Alkaline Phosphatase 56, Total Protein 6.3 L, Albumin 3.2, Globulin 3.1, Albumin/Globulin Ratio 1.0, Blood Type A NEGATIVE, Antibody Screen NEGATIVE, Crossmatch See Detail 12/10/23 13:25: Hgb 11.6 L, Hct 33.8 L 12/10/23 19:25: Hgb 11.0 L, Hct 32.2 L 12/11/23 01:50: Hgb 10.1 L, Hct 29.3 L 12/11/23 05:45: WBC 5.9, RBC 3.04 L, Hgb 9.8 L, Hct 29.7 L, MCV 97.7, MCH 32.2 H, MCHC 33.0, RDW Std Deviation 50.8 H, RDW Coeff of Cas 14.1, Plt Count 289, MPV 9.4, Immature Gran % (Auto) 0.300, Neut % (Auto) 61.7, Lymph % (Auto) 25.0, Edmunds % (Auto) 8.2, Eos % (Auto) 3.9, Baso % (Auto) 0.9, Absolute Neuts (auto) 3.6, Absolute Lymphs (auto) 1.47, Nucleated RBC % 0, Sodium 132 L, Potassium 4.3, Chloride 101, Carbon Dioxide 25.0, Anion Gap 6, BUN 10, Creatinine 0.52 L, Estim Creat Clear Calc 43.47, Est GFR (MDRD) Af Amer 146, Est GFR (MDRD) Non-Af 121, BUN/Creatinine Ratio 19.3, Glucose 97, Calcium 8.6, Phosphorus 2.9, Magnesium 1.9 Micro: Microbiology 12/10/23 11:00 Stool Stool Occult Blood (TERRI) - Final Occult Blood Positive Radiography Diagnostic Testing: Radiology Impression Abdomen/Pelvis CTA 12/10/23 12:01 IMPRESSION: 1. No evidence of active vascular bleeding at the time this examination was performed. 2. Left inguinal hernia containing small bowel loop without evidence of bowel obstruction. 3. Hepatomegaly. 4. Indeterminate small liver lesion could be due to hemangioma but difficult to characterize at this time. 5. Large left adnexal cystic lesion for which further evaluation with nonemergent MRI might be of value. 6. Diverticulosis without evidence of acute diverticulitis. Electronically Signed: Ja San MD at 13:12 EDT , Physical Exam Narrative GENERAL: cooperative HEENT: Atraumatic; normocephalic EYES; Anicteric, Normal Conjunctiva NECK; supple, normal thyroid, RESPIRATORY: Diminished to auscultation CARDIOVASCULAR: Regular S1 S2, GI: soft, normoactive bowel sounds, : No Renal angle tenderness; EXTREMITIES: No edema, no clubbing, MUSCULOSKELETAL: no muscle wasting NEURO: Awake; no lateralizing signs. SKIN: No Rash PSYCH; Flat affect Assessment & Plan Assessment/Plan (1) Acute lower gastrointestinal bleeding: (2) Hyponatremia: PLAN: Plan Patient is an 82-year-old lady who presented with bleeding per rectum 1. Bleeding per rectum ? CT of the abdomen and pelvis ordered to rule out diverticular bleed. Patient has been admitted to monitored bed ordered H&H every 4 hours. Patient was started on crossmatch for 2 unit PRBC. Patient was started on Protonix drip with consultation placed to GI for possible endoscopic evaluation ? 12/11/2023; patient was seen in consultation by Dr. Veloz plans for patient to undergo endoscopic evaluation both upper and lower prior to discharge. 2. Anemia ? Secondary to acute blood loss anemia as a result of a GI bleed. Significant drop in her hemoglobin from 11.6-9.8 following admission. Monitoring H&H with plans to transfuse if hemoglobin falls below 7 or patient is deemed to be symptomatic 3.. Hyponatremia ? Suspected to be secondary to hypovolemic hyponatremia patient started on saline with repeat BMP ordered in a.m. ? Sodium levels up to 132, continuous monitoring with daily BMPs ordered 4. Generalized osteoarthritis ? Patient is on celecoxib held given her rectal bleed. Patient was placed on Tylenol as needed 5. Hypertension - Blood pressure controlled, home medications continued with dose adjustment as needed 6. Left inguinal hernia containing small bowel loop -without evidence of bowel obstruction. Found on CAT scan 7.. Hepatomegaly as well as indeterminate small liver lesion Thought to be secondary to hemangioma plan is for patient to follow-up with primary care physician as outpatient for subsequent evaluation 8. Large left adnexal cystic lesion ? Patient informed of the result patient to undergo subsequent evaluation as outpatient with a nonemergent MRI. 9. Diverticulosis without evidence of acute diverticulitis. -Patient lower GI bleed may be diverticular in origin. Scheduled to undergo colonoscopy 10. DVT prophylaxis ? Bilateral SCDs only given patient presentation Time spent in the patient's overall evaluation,decision-making process, review of diagnostic data, adjustment of management, discussion with other providers, nursing nursing and ancillary staff involved in patient's care documentation, 50 minutes Charges/Coding Visit Charges Inpatient E&M: 51463 [facility] Hosp L3
[2023-12-11 08:35] VITALS: BP 155/76; PULSE 60; RESP 17; TEMP 36.6; O2SAT 98
[2023-12-11] MEDS: 0.9% Saline Lock 10 ML Syringe IV ×2 (10:25→21:31)
[2023-12-11] MEDS: Lisinopril 20 MG Tablet PO (10:25)
[2023-12-11] MEDS: HYDROmorphone 1 MG/ML Syringe IV (10:25)
[2023-12-11] MEDS: Bisacodyl 5 MG Tablet 20 MG PO (14:16)
[2023-12-11 14:30] VITALS: BP 142/78; PULSE 62; RESP 16; TEMP 36.9; O2SAT 97
[2023-12-11] MEDS: Polyethylene Glycol 3350 BOWEL PREP PO (16:57)
[2023-12-11] MEDS: Ondansetron 4 MG/2 ML Vial IV (21:31)
[2023-12-11 21:33] VITALS: BP 142/73; PULSE 56; RESP 18; TEMP 36.4; O2SAT 99
[2023-12-11] MEDS: LORazepam 0.5 MG Tablet PO (23:57)
[2023-12-11] MEDS: traMADol 50 MG Tablet PO (23:59)
[2023-12-12] VITALS (9 sets, daily range): BP systolic 110–153; BP diastolic 57–81; PULSE 55–80; RESP 16–18; TEMP 36.3–37.2; O2SAT 93–98; BMI 19.8
[2023-12-12] MEDS: Acetaminophen 325 MG Tablet 650 MG PO ×2 (00:47→23:45)
[2023-12-12] MEDS: 0.9% Normal Saline (1000mL) 1,000 ML 150 ML IV ×4 (00:48→22:58)
[2023-12-12 04:22] LABS: Absolute Lymphocyte Count 1.13 X10^3/uL (0.83-4.51); Absolute Neutrophil Count 6.2 X10^3/uL (2.0-7.7); Basophil# 0.01 X10^3/uL; Basophil% 0.1 % (0-1); Eosinophil# 0.14 X10^3/uL; Eosinophils% 1.8 % (0-5); Hematocrit 28.2 % (37-47); Hemoglobin 9.4 g/dL (12.0-15.0); Lymphocyte # 1.13 X10^3/ul (0.83-4.51); Lymphocyte % 14.1 % (19-41); Mean Corp Hgb Conc 33.3 g/dL (32-36); Mean Corpuscular Hgb 32.3 pg (27.0-32.0); Mean Corpuscular Volume 96.9 fL (81-99); Mean Platelet Vol. 8.9 fl (6.2-12.0); Monocyte# 0.52 X10^3/uL; Monocyte% 6.5 % (0-10); NRBC Flagged by Analyzer 0 % (0-5); Neutrophil # 6.16 X10^3/uL (2.7-7.7); Neutrophil % 77.1 % (47-70); Platelet Count 257 K/mm3 (150-450); RBC Distribution Width CV 13.9 % (11.6-14.6); RBC Distribution Width SD 49.7 fl (35.1-43.9); Red Blood Count 2.91 M/mm3 (4.2-5.4)
[2023-12-12 04:47] LABS: Anion Gap 5 (5-15); BUN 6 mg/dL (7-18); BUN/Creat Ratio 14.2 RATIO (10-20); Chloride 103 mmol/L (98-107); Creatinine, Serum 0.42 mg/dL (0.55-1.02); EST Glomerular Filtration Rate 152 mL/min (>60); Est Glom Filt Rate - Afr Amer 184 mL/min (>60); Estimated Creatinine Clearance 43.47 ml/min; Glucose 129 mg/dL (74-106); Potassium 3.2 mmol/L (3.5-5.1); Sodium Level 132 mmol/L (136-145)
[2023-12-12] MEDS: 0.9% Saline Lock 10 ML Syringe IV ×2 (10:19→17:57)
[2023-12-12] MEDS: Lactated Ringers 1,000 ML 15 ML IV (10:37)
--- NOTE | 2023-12-12 11:30 | COLBX_PTH ---
PATIENT: GEORGINA LEONARD LOC: [facility] U#:[id number] AGE/SX: 82/F ROOM: [facility] RE12/10/[address]: Dr. Jean Gonzalez DO : 1940 BED: 1 DIS: 12/13/2023 SPEC #: [id number] RECD: 12/12/23 17:07 STATUS: BONNY REShana #: [id number] JAMIE: 12/12/23 11:[address]: Demarco Veloz DEPT: SURGICAL PATHOLOGY RECD BY: Mandie More ENTERED: 12/13/23 12:09 SP TYPE: COLON BX OTHR DR: MD Dr. Rolf Jolly MD Dr. Mark Tereletsky, DO Tissues: Sigmoid colon biopsy Procedures: Surgery Specimen Level IV Comments: @ Ordering doctor for SUIV edited from to @ by FABRICE at 12/13/23 144 @ Submitting doctor edited from to @ by FABRICE at 12/13/23 1443 HEADER OPERATION: Colonoscopy biopsy PRE-OP DIAGNOSIS: Bleeding per rectum TISSUE SUBMITTED: Sigmoid colon biopsy MICROSCOPIC DIAGNOSIS Sigmoid colon, biopsy: Fragments of colonic mucosa, no pathologic diagnosis. / 12/14/23 MICROSCOPIC DESCRIPTION Slides are reviewed. GROSS DESCRIPTION Received in fixative is one container labeled with the patient's name and designated Sigmoid colon biopsy. The specimen consists of two irregular fragments of light larson soft tissue that in aggregate measure 0.5 x 0.3 x 0.1 cm. The specimen is totally submitted in one cassette. / 12/13/23 TC:4 CPT: 80538
--- NOTE | 2023-12-12 11:58 | OP.COLON_ITS ---
Patient Name: May Herrera Procedure Date: 12/12/2023 11:25 AM Date of : 1940 Age: 82 Procedure: Colonoscopy Indications: Hematochezia Providers: Demarco Veloz DO Medicines: Monitored Anesthesia Care Patient Profile: This is an 82 year old female. Refer to note in patient chart for documentation of history and physical. Last Colonoscopy: date unknown. Unable to locate last colonoscopy report. Complications: No immediate complications. Procedure: Pre-Anesthesia Assessment: - Prior to the procedure, a History and Physical was performed, and patient medications and allergies were reviewed. The patient is competent. The risks and benefits of the procedure and the sedation options and risks were discussed with the patient. All questions were answered and informed consent was obtained. Patient identification and proposed procedure were verified by the physician. Mental Status Examination: normal. ASA Grade Assessment: I - A normal, healthy patient. After reviewing the risks and benefits, the patient was deemed in satisfactory condition to undergo the procedure. The anesthesia plan was to use monitored anesthesia care (MAC). Immediately prior to administration of medications, the patient was re-assessed for adequacy to receive sedatives. The heart rate, respiratory rate, oxygen saturations, blood pressure, adequacy of pulmonary ventilation, and response to care were monitored throughout the procedure. The physical status of the patient was re-assessed after the procedure. - This assessment was completed at 00:01 AM, prior to the administration of sedation. After I obtained informed consent, the scope was passed under direct vision. Throughout the procedure, the patient's blood pressure, pulse, and oxygen saturations were monitored continuously. The colonoscope was introduced through the anus and advanced to the cecum, identified by the appendiceal orifice, ileocecal valve and palpation. The colonoscopy was performed without difficulty. The patient tolerated the procedure well. The quality of the bowel preparation was adequate. The terminal ileum, ileocecal valve, appendiceal orifice, and rectum were photographed. Scope In: 11:38:01 AM Scope Withdrawal Time 0 hours 9 minutes 38 seconds Scope Out: 11:52:51 AM Total Procedure Duration Time 0 hours 14 minutes 50 seconds Findings: The perianal and digital rectal examinations were normal. Multiple small and large-mouthed diverticula were found in the entire colon. Localized mild inflammation characterized by erosions and erythema was found in the sigmoid colon and in the descending colon. Biopsies were taken with a cold forceps for histology. Verification of patient identification for the specimen was done. Estimated blood loss was minimal. Impression: - Diverticulosis in the entire examined colon. - Localized mild inflammation was found in the sigmoid colon and in the descending colon secondary to ischemic colitis. Biopsied. Recommendation: - Return patient to [facility] for ongoing care. - Resume regular diet. - Continue present medications. - Await pathology results. - No repeat colonoscopy due to age. Procedure Code(s): --- Professional --- 75175, Colonoscopy, flexible; with biopsy, single or multiple CPT copyright 2021 [employer]. All rights reserved. The codes documented in this report are preliminary and upon warrant clerk review may be revised to meet current compliance requirements. Demarco Veloz DO 12/12/2023 11:58:16 AM This report has been signed electronically. Number of Addenda: 0 Note Initiated On: 12/12/2023 11:25 AM
--- NOTE | 2023-12-12 11:59 | OP.CCLET_ITS ---
12/12/2023 Rolf Peck [address] [place] [address] Re : Colonoscopy procedure for May Herrera Dear Dr. Peck This procedure was performed on Tuesday, December 12, 2023. My impressions and recommendations are as follows: Impressions : - Diverticulosis in the entire examined colon. - Localized mild inflammation was found in the sigmoid colon and in the descending colon secondary to ischemic colitis. Biopsied. Recommendations : - Return patient to [facility] for ongoing care. - Resume regular diet. - Continue present medications. - Await pathology results. - No repeat colonoscopy due to age. My findings are described in the full procedure note, which is enclosed. If I can be of further assistance, please feel free to contact me at . Sincerely, Demarco Veloz, 12/12/2023 11:58:16 AM This report has been signed electronically.
[2023-12-12] MEDS: Pantoprazole Sodium 80 MG in 0.9% Normal Saline (100mL Bag) 80 ML 10 MG CONT INF ×2 (12:51→22:46)
--- NOTE | 2023-12-12 13:45 | CASEMGMT ---
RN CM Face to Face with patient for initial transition planning/care coordination assessment. RN CM introduced self and role at [facility]. Patient lying in bed, alert and oriented. Patient willing to participate in assessment and is able to answer all questions appropriately. Care providers, pharmacy, and demographics verified. PCP: [facility] Specialists: patty Wilde; erasto Kirby [facility] Insurance: MCR, [employer] Prescription Benefit: yes Living Will/HPOA: yes, daughter Ita Boo LNOK: daughter, son in law Living Arrangements: Patient lives alone in a single story home with ramp to enter. Patient states she is independent at home. Transportation: neighbors, brother, daughter DME/HHC: Patient has shower chair, BSC, raised toilet seat, grab bars, walker, rollator, pulse ox at home. Patient has been to [facility] in the past and had [facility] home therapy in the past. Patient wishes to discharge home and is interested in HHC at discharge. CM to provide patient with list. Patient states she has no further needs or concerns at this time. CM to follow for discharge planning needs that may arise. Disposition Plan: Patient to discharge home with HHC, family support, and follow-up plans in place. Gladis CAREY, RN, CM
[2023-12-12] MEDS: Lisinopril 20 MG Tablet PO (13:54)
[2023-12-12] MEDS: traMADol 50 MG Tablet PO ×2 (15:08→23:45)
--- NOTE | 2023-12-12 15:55 | CHAPLAIN ---
Type of Pastoral Visit ___ Initial Visit ___ Follow-up Visit ___ On-call Visit ___ General Patient Visit ___ Spiritual Assessment ___ Family Conference ___ Bereavement ___ Rapid Response ___ Code Blue ___ Other (describe below) Pastoral Care Referral From ___ Patient ___ Family ___ Nurse ___ Physician ___ Postdoctoral Scholar ___ Electronics Teacher ___ Other (describe below) Sacrament/Intervention ___ Active listening ___ Anointing ___ Yazidi ___ Bereavement ___ Communion ___ Pauline exploration ___ ___ Life review ___ Prayer ___ Reconciliation ___ Sacrament of Sick ___ Supportive presence ___ Wedding ___ Other (describe below) Pastoral Comments patient and bed were out of the room at time of attempted visit; left a calling card
--- NOTE | 2023-12-12 16:17 | CASEMGMT ---
Advance Directive Validation: Noted documentation by nursing that pt has both living will and HPOA documents. Neither of these documents have been scanned into pt's EMR. This RN CM attempted to visit pt at bedside to discuss documents being brought in; however pt undergoing nursing care. Will follow-up at a later time. Jammie Saldana RN AC
--- NOTE | 2023-12-12 16:39 | CASEMGMT ---
Advance Directive Validation: This RN CM met with pt at bedside. Explained pt's advanced directive documents are not currently scanned into her EMR. Pt expressed understanding and states she will bring in the documents when able. Explained that documents can be brought to Health Information Management/Medical Records if after discharge. Jammie Saldana RN [facility]
[2023-12-12] MEDS: HYDROmorphone 1 MG/ML Syringe IV (17:57)
--- NOTE | 2023-12-12 18:37 | PCM.PN.HOSP ---
Reason for Visit Reason for Visit: Diagnoses Hypo-osmolality and hyponatremia (12/10/23) Gastrointestinal hemorrhage, unspecified (12/10/23) Subjective Subjective Patient was seen and examined today, she underwent a colonoscopy today which showed evidence of ischemic colitis. Patient's hemoglobin this morning was 9.4. Objective Data Objective Data Vital Signs: Vital Signs Temp Pulse Resp BP Pulse Ox O2 Del Method 98.9 F 63 17 119/71 97 Room Air 12/12/23 17:55 12/12/23 17:55 12/12/23 17:55 12/12/23 17:55 12/12/23 17:55 12/12/23 18:03 Oxygen Delivery Method Room Air Weight: 49.1 kg Body Mass Index (BMI) 19.8 Intake & Output: Intake and Output for Last 24 Hours 12/10/23 12/11/23 12/12/23 23:59 23:59 23:59 Intake Total 2210 / 2210 4222.5 / 6722.5 5383.75 / 5383.75 Balance 2210 / 2210 4222.5 / 6722.5 5383.75 / 5383.75 Medical Nutrition Assessment Dietitian: Malnutrition Criteria Met Start: 12/11/23 10:36 Freq: Status: Active Protocol: Document 12/11/23 10:36 SLA (Rec: 12/11/23 10:36 SLA [id number]) Nutrition Malnutrition Evidence of Malnutrition Exists Yes Malnutrition (severe): Acute Illness/Injury Evidenced By Suboptimal Energy Intake ( Severe),Weight Loss (Severe) Clinical Problem Acute Disease or Injury Related Malnutrition Etiology related to inadequate energy intake Signs/Symptoms as evidenced by ~10% unplanned wt loss and pt eating <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 Lab / Micro Data 12/12/23 03:45 12/12/23 03:45 Labs: Laboratory Results - last 24 hr 12/12/23 03:45: WBC 8.0, RBC 2.91 L, Hgb 9.4 L, Hct 28.2 L, MCV 96.9, MCH 32.3 H, MCHC 33.3, RDW Std Deviation 49.7 H, RDW Coeff of Cas 13.9, Plt Count 257, MPV 8.9, Immature Gran % (Auto) 0.400, Neut % (Auto) 77.1 H, Lymph % (Auto) 14.1 L, [place] % (Auto) 6.5, Eos % (Auto) 1.8, Baso % (Auto) 0.1, Absolute Neuts (auto) 6.2, Absolute Lymphs (auto) 1.13, Nucleated RBC % 0, Sodium 132 L, Potassium 3.2 L, Chloride 103, Carbon Dioxide 24.0, Anion Gap 5, BUN 6 L, Creatinine 0.42 L, Estim Creat Clear Calc 43.47, Est GFR (MDRD) Af Amer 184, Est GFR (MDRD) Non-Af 152, BUN/Creatinine Ratio 14.2, Glucose 129 H, Calcium 8.0 L Micro: Microbiology 12/10/23 11:00 Stool Stool Occult Blood (TERRI) - Final Occult Blood Positive Physical Exam Const alert, oriented x3, no apparent distress, average body habitus and healthy appearing General Appearance: cooperative, well kempt and well developed Orientation / Consciousness: awake, oriented to person, oriented to place and oriented to time HEENT normocephalic, head/scalp atraumatic and moist oral mucous membranes Eyes PERRL, EOMs intact bilaterally and conjunctivae normal Neck supple, no JVD, thyroid normal and no carotid bruits General: trachea midline Resp normal respiratory effort, no retractions, no use of accessory muscles and clear to auscultation bilaterally Auscultation: Negative for rales, rhonchi or wheezes Cardio regular rate, regular rhythm, S1 normal heart sound, S2 normal heart sound, no murmurs, no rub and no gallops GI normal to inspection, nondistended, normoactive bowel sounds, soft to palpation, non-tender and non-distended Extremity no clubbing, cyanosis or edema Skin no rashes or lesions noted General Skin Exam: no breakdown Neuro oriented x3, CN's II-XII intact bilaterally, moves all extremities, no focal motor deficits and no sensory deficits noted Sensorium / Orientation: awake and alert Speech: speech normal Psych affect normal Assessment & Plan Assessment/Plan (1) Acute lower gastrointestinal bleeding: PLAN: Plan 1. Lower GI bleed secondary to ischemic colitis-I will repeat the patient's H&H tomorrow #2 essential hypertension-patient remains on her outpatient medications, they will be adjusted as needed #3 essential tremor-patient is on Inderal LA #4 acute blood loss anemia not requiring blood transfusion secondary to lower GI bleeding-this blood loss is minimal, again H&H will be rechecked tomorrow Total clinical time spent by myself addressing the patient's medical issues, reviewing all of her data, and collaborating with patient's care team: 35 minutes Charges/Coding Visit Charges Inpatient E&M: 03660 Subs Hosp L2
[2023-12-12] MEDS: Magnesium Sulfate 2 GM in Dextrose 5%-Water (100mL Bag) 100 ML IV (20:28)
[2023-12-12] MEDS: Potassium Phosphate 30 MM in 0.9% Normal Saline (250mL Bag) 250 ML 42 MM IV (20:32)
[2023-12-12] MEDS: Propranolol LA 60 MG Capsule PO (20:40)
[2023-12-12] MEDS: LORazepam 0.5 MG Tablet PO (22:46)
[2023-12-13 02:45] VITALS: BP 152/79; PULSE 52; RESP 18; TEMP 36.5; O2SAT 94
[2023-12-13] MEDS: 0.9% Normal Saline (1000mL) 1,000 ML 150 ML IV ×2 (05:04→11:26)
[2023-12-13 06:29] LABS: Hematocrit 26.4 % (37-47); Hemoglobin 8.9 g/dL (12.0-15.0)
[2023-12-13 08:37] VITALS: BP 159/83; PULSE 50; RESP 17; TEMP 36.7; O2SAT 96
[2023-12-13] MEDS: Lisinopril 20 MG Tablet PO (08:44)
[2023-12-13] MEDS: Acetaminophen 325 MG Tablet 650 MG PO (08:47)
[2023-12-13] MEDS: traMADol 50 MG Tablet PO (08:48)
[2023-12-13] MEDS: Pantoprazole Sodium 80 MG in 0.9% Normal Saline (100mL Bag) 80 ML 10 MG CONT INF (08:48)
--- NOTE | 2023-12-13 11:20 | DCINST_ITS ---
Discharge Instructions Diet Discharge Diet: No restrictions Activity Discharge Activity: Return to Normal Activity Weight Bearing Status: Full weight bearing Follow Up Care Test Results: Test results from this visit will be discussed in further detail at your follow- up appointment, if applicable. Discharge Plan Admission Admit Date/Time: 12/10/23 11:48 Primary Reason for Your Visit: ischemic colitis Attending Provider: Jean Gonzalez Primary Care Provider: Rolf Peck Consulting Providers: Justus Pop Discharge Orders/Prescriptions Prescriptions: New pantoprazole 40 mg Tablet,Delayed Release (Dr/Ec) 40 mg PO DAILY Qty: 30 0RF Continued celecoxib 200 mg capsule 200 mg PO DAILY lisinopril 20 mg tablet 20 mg PO DAILY acetaminophen [Tylenol] 325 mg Tablet 650 mg PO Q4H PRN (Reason: Pain) calcium carbonate-vitamin D3 600 mg-5 mcg (200 unit) Tablet 1 tab PO DAILY lorazepam 0.5 mg Tablet 0.5 mg PO QHS PRN (Reason: Sleep) Multivitamin Women 50 Plus 8 mg iron-400 mcg-300 mcg Tablet 1 tab PO DAILY propranolol 60 mg capsule,extended release 24 hr 60 mg PO QHS Patient Comments: CALLED PCP FOR REFILL BUT CURRENTLY OUT OF MEDICATION tramadol 50 mg tablet 50 mg PO TID PRN Referrals / Follow Up: Rolf Peck MD [Primary Care Provider] - Within 2 Weeks (You will need a repeat CBC drawn) Disposition Disposition (needs filled in before D/C Order can be placed): Home, Self Care
--- NOTE | 2023-12-13 11:23 | PCM.DC.SUM ---
Providers Date of Admission: 12/10/23 Date of Discharge: 12/13/23 Primary Care Physician: Dr. Rolf Peck MD Consultations 12/10/23 13:21 Consult: Gastroenterology Routine Consulting Provider: [facility] Reason for Consult: GI bleed EMERGENT Consult: No MD Notified: Yes Date Notified: 12/10/23 Time Notified: 11:55 Method of Notification: ED Physician Initiated Reason For Visit: GI BLEED Diagnosis Discharge Diagnosis (1) Acute lower gastrointestinal bleeding: Status: Acute Code(s): K92.2 - Gastrointestinal hemorrhage, unspecified Plan 1. Lower GI bleed secondary to ischemic colitis-I will repeat the patient's H&H tomorrow #2 essential hypertension-patient remains on her outpatient medications, they will be adjusted as needed #3 essential tremor-patient is on Inderal LA #4 acute blood loss anemia not requiring blood transfusion secondary to lower GI bleeding-this blood loss is minimal, again H&H will be rechecked tomorrow #5 ischemic colitis Total clinical time spent by myself addressing the patient's medical issues, reviewing all of her data, and collaborating with patient's care team: 35 minutes Medications at Discharge Home Medications celecoxib 200 mg capsule 200 mg PO DAILY pain 10/23/21 lisinopril 20 mg tablet 20 mg PO DAILY blood pressure 10/23/21 acetaminophen 325 mg tablet (Tylenol) 650 mg PO Q4H PRN Pain 09/20/22 calcium carbonate 600 mg-vitamin D3 5 mcg (200 unit) tablet 1 tab PO DAILY supplement 09/20/22 lorazepam 0.5 mg tablet 0.5 mg PO QHS PRN Sleep 09/20/22 [id number]-[id number] 8 mg-folic 400 mcg-K 50 mcg-lutein 300 mcg tablet (Multivitamin Women 50 Plus) 1 tab PO DAILY vitamin 09/20/22 propranolol 60 mg capsule,24 hr,extended release 60 mg PO QHS tremor 12/10/23 tramadol 50 mg tablet 50 mg PO TID PRN pain 12/10/23 pantoprazole 40 mg tablet,delayed release 40 mg PO DAILY #30 tabs 12/13/23 Hospital Course Operations None Procedures EGD Summary of Care Provided Minutes Spent on Discharge: 31 Hospital Course: This 82-year-old white female was seen in the emergency room at [facility] with complaints of bright red rectal bleeding x 24 hours. Patient denied any abdominal pain, she denied any nausea and vomiting. Labs were performed in the emergency room, patient's white blood cell count was normal, hemoglobin was abnormal at 11.2, chemistry profile was remarkable for sodium of 128 but was otherwise normal. Her case was discussed with gastroenterology, she was admitted to PCU and her labs were monitored. She did not have a substantial drop in her hemoglobin during her hospitalization, she underwent a colonoscopy which showed evidence of ischemic colitis. On 12/13/2023, patient was seen and examined: On examination she appeared in good health and spirits, she does not appear to be in any distress. Vital signs as documented. Skin warm and dry and without overt rashes. Neck without JVD, thyroid appears normal, trachea is midline, neck is supple. Lungs clear, normal air movement was noted. Heart exam notable for regular rhythm, normal sounds and absence of murmurs, rubs or gallops. Abdomen unremarkable and without evidence of organomegaly, masses, or abdominal aortic enlargement, bowel sounds are present in all 4 quadrants, no abdominal tenderness was noted. Extremities nonedematous, no cyanosis was noted, no clubbing was noted. Neuro: Cranial nerves II through XII are grossly intact, no focal motor deficits were noted, sensation to light touch and pinprick is intact, motor exam 5/5 throughout. Psych: Patient is alert and oriented x3, she does not appear anxious or depressed, she does not appear agitated. Patient was felt to be stable for discharge home on 12/13/2023, arrangements were made for home health for the patient at the time of discharge. I also had a discussion about her use of Celebrex, she uses it for arthritis pain, I told her that if she chose to use it that I would recommend taking a PPI to protect her from possible GI side effects from the Celebrex. Patient agreed to this and I transmitted a prescription for Protonix for her to take on an ongoing basis. 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 Weight / BMI Weight Weight: 49.1 kg Body Mass Index (BMI) 19.8 ABG / Lab / Microbiology Data 12/13/23 06:11 12/13/23 06:11 Laboratory: Laboratory Results - last 24 hr 12/13/23 06:11: Hgb 8.9 L, Hct 26.4 L Microbiology: Microbiology 12/10/23 11:00 Stool Stool Occult Blood (TERRI) - Final Occult Blood Positive D/C Instructions Discharge Diet: No restrictions Weight Bearing Status: Full weight bearing Meaningful Use Info Meaningful Use Diagnoses (Choose all that apply): None applicable Discharge Plan Admission Admit Date/Time: 12/10/23 11:48 Primary Reason for Your Visit: ischemic colitis Attending Provider: Jean Gonzalez Primary Care Provider: Rolf Peck Consulting Providers: Justus Pop Discharge Orders/Prescriptions Prescriptions: New pantoprazole 40 mg Tablet,Delayed Release (Dr/Ec) 40 mg PO DAILY Qty: 30 0RF Continued celecoxib 200 mg capsule 200 mg PO DAILY lisinopril 20 mg tablet 20 mg PO DAILY acetaminophen [Tylenol] 325 mg Tablet 650 mg PO Q4H PRN (Reason: Pain) calcium carbonate-vitamin D3 600 mg-5 mcg (200 unit) Tablet 1 tab PO DAILY lorazepam 0.5 mg Tablet 0.5 mg PO QHS PRN (Reason: Sleep) Multivitamin Women 50 Plus 8 mg iron-400 mcg-300 mcg Tablet 1 tab PO DAILY propranolol 60 mg capsule,extended release 24 hr 60 mg PO QHS Patient Comments: CALLED PCP FOR REFILL BUT CURRENTLY OUT OF MEDICATION tramadol 50 mg tablet 50 mg PO TID PRN Referrals / Follow Up: Rolf Peck MD [Primary Care Provider] - Within 2 Weeks (You will need a repeat CBC drawn) Disposition Disposition (needs filled in before D/C Order can be placed): Home, Self Care Charges/Coding Visit Charges Inpatient E&M: 79040 Disch Hosp >30min
--- NOTE | 2023-12-13 11:30 | CASEMGMT ---
RN CM updated that patient will be discharging today. RN CM in to discuss needs at discharge. Patient wishes to discharge home with C. A list of [facility] providers including quality and resource use data and consistent with the patient?s preferred geographical region, medical needs, and insurance network were provided from the [employer] Guide. Patient states she prefers [facility]. Patient denied further questions or concerns. RN CM called and made referral to [facility], awaiting acceptance. CM will continue to follow this patient and plan for a safe discharge.
--- NOTE | 2023-12-13 13:20 | CHAPLAIN ---
Type of Pastoral Visit _x__ Initial Visit ___ Follow-up Visit ___ On-call Visit ___ General Patient Visit ___ Spiritual Assessment ___ Family Conference ___ Bereavement ___ Rapid Response ___ Code Blue ___ Other (describe below) Pastoral Care Referral From _x__ Patient ___ Family ___ Nurse ___ Physician ___ Almond Blancher ___ 1St Grade Teacher ___ Other (describe below) Sacrament/Intervention _x__ Active listening ___ Anointing ___ Yazidism _x__ Bereavement ___ Communion _x__ Pauline exploration ___ _x__ Life review _x__ Prayer ___ Reconciliation ___ Sacrament of Sick _x__ Supportive presence ___ Wedding ___ Other (describe below) Pastoral Comments patient is welcoming and talkative; pt has had significant health issues recently with some unknowns; pt was in August and facing the changes of her life; pt is living alone and hopes to continue that; pt relies on family and pauline to get her through the changes; pt welcomes spiritual care and support; pt welcomes prayer and expresses gratitude for giving me just what I needed
[2023-12-13 13:39] LABS: Anion Gap 4 (5-15); BUN 5 mg/dL (7-18); Calcium,Total 8.3 mg/dL (8.5-10.1); Chloride 108 mmol/L (98-107); Creatinine, Serum 0.45 mg/dL (0.55-1.02); EST Glomerular Filtration Rate 141 mL/min (>60); Est Glom Filt Rate - Afr Amer 170 mL/min (>60); Estimated Creatinine Clearance 43.47 ml/min; Glucose 89 mg/dL (74-106); Magnesium 1.8 mg/dL (1.6-2.6); Phosphorus 3.5 mg/dL (2.5-4.9); Sodium Level 135 mmol/L (136-145)
--- NOTE | 2023-12-13 13:52 | PHA.DC_ITS ---
Pharmacy [facility] Service has performed discharge medication reconciliation and counseling for this patient. The patient's discharge medication list was reviewed for discrepancies and discrepancies were resolved. The patient was counseled on the following discharge medications and changes in medications for homegoing were reviewed. The Reason for Use, instructions for use, and potential side effects were reviewed for all new medications. The patient's questions regarding all of their medications were answered. 1. Pantoprazole 40 mg PO daily The patient was able to verbally demonstrate an understanding of their discharge medications. Medications at Discharge Home Medications celecoxib 200 mg capsule 200 mg PO DAILY pain 10/23/21 lisinopril 20 mg tablet 20 mg PO DAILY blood pressure 10/23/21 acetaminophen 325 mg tablet (Tylenol) 650 mg PO Q4H PRN Pain 09/20/22 calcium carbonate 600 mg-vitamin D3 5 mcg (200 unit) tablet 1 tab PO DAILY supplement 09/20/22 lorazepam 0.5 mg tablet 0.5 mg PO QHS PRN Sleep 09/20/22 vyfzjdvh-bxvy-fchl 8 mg-folic 400 mcg-K 50 mcg-lutein 300 mcg tablet (Multivitamin Women 50 Plus) 1 tab PO DAILY vitamin 09/20/22 propranolol 60 mg capsule,24 hr,extended release 60 mg PO QHS tremor 12/10/23 tramadol 50 mg tablet 50 mg PO TID PRN pain 12/10/23 pantoprazole 40 mg tablet,delayed release 40 mg PO DAILY #30 tabs 12/13/23
[2023-12-13 14:00] VITALS: BP 125/62; PULSE 61; RESP 17; TEMP 36.6; O2SAT 95
== END 2023-12-13 14:37 | disposition home or self-care (01) | DRG 393 ==
LOC: ED 12:05 → PCU 12:35
PROVIDERS: Internal Medicine; Internal Medicine Gastroenterology; Admitting Provider Internal Medicine; Emergency Provider Emergency Medicine; PCP Family Medicine; Visit Provider Internal Medicine
PROC: 0DJD8ZZ Inspection of Lower Intestinal Tract, Via Natural or Artificial Opening Endoscopic (ICD-10-PCS; CPT 45378; principal; 2023-12-12 11:25)
DX: K55.9 Vascular disorder of intestine, unspecified (principal); E43 Unspecified severe protein-calorie malnutrition; E87.1 Hypo-osmolality and hyponatremia; D62 Acute posthemorrhagic anemia; Z68.1 Body mass index [BMI] 19.9 or less, adult; R16.0 Hepatomegaly, not elsewhere classified; I10 Essential (primary) hypertension; M15.9 Polyosteoarthritis, unspecified; K40.90 Unilateral inguinal hernia, without obstruction or gangrene, not specified as recurrent; G25.0 Essential tremor; K57.30 Diverticulosis of large intestine without perforation or abscess without bleeding; Z79.1 Long term (current) use of non-steroidal anti-inflammatories (NSAID); D18.00 Hemangioma unspecified site; Z87.891 Personal history of nicotine dependence; Z66 Do not resuscitate
CPT/HCPCS: 36415; 74174; 80048; 80053; 82274; 83735; 84100; 85014; 85018; 85025; 85610; 85730; 86850; 86900; 86901; 86920; 86922; 88305; 97116; 97162; 97165; 97530; 97802; 99285; J7030; J7050; J7120; Q9967; A4216; J2405; J3490

== ENCOUNTER → 2023-12-22 | Outpatient (CLI) | payer MEDICARE, OTHER, SELFPAY ==
[2023-12-22 15:24] LABS: Hematocrit 32.3 % (37-47); Hemoglobin 10.8 g/dL (12.0-15.0); Mean Corp Hgb Conc 33.4 g/dL (32-36); Mean Corpuscular Hgb 32.2 pg (27.0-32.0); Mean Corpuscular Volume 96.4 fL (81-99); Mean Platelet Vol. 9.3 fl (6.2-12.0); Platelet Count 421 K/mm3 (150-450); RBC Distribution Width CV 13.6 % (11.6-14.6); RBC Distribution Width SD 48.5 fl (35.1-43.9); Red Blood Count 3.35 M/mm3 (4.2-5.4); White Blood Count 7.1 K/mm3 (4.4-11.0)
[2023-12-22 16:14] LABS: Anion Gap 8 (5-15); BUN 19 mg/dL (7-18); BUN/Creat Ratio 27.8 RATIO (10-20); Calcium,Total 9.3 mg/dL (8.5-10.1); Chloride 95 mmol/L (98-107); Creatinine, Serum 0.68 mg/dL (0.55-1.02); EST Glomerular Filtration Rate 88 mL/min (>60); Est Glom Filt Rate - Afr Amer 106 mL/min (>60); Glucose 111 mg/dL (74-106); Potassium 4.1 mmol/L (3.5-5.1); Sodium Level 130 mmol/L (136-145)
== END | disposition home or self-care (01) ==
LOC: MFPLAB 11:58
PROVIDERS: PCP Family Medicine; Visit Provider Family Medicine
DX: E87.1 Hypo-osmolality and hyponatremia (principal); D64.9 Anemia, unspecified
CPT/HCPCS: 36415; 80048; 85027

== ENCOUNTER → 2024-01-10 | Outpatient (CLI) | payer MEDICARE, OTHER, SELFPAY ==
--- NOTE | 2024-01-10 13:50 | RAD_ITS ---
STUDY: X-RAY - PELVIS AND RIGHT HIP REASON FOR EXAM: Female, 83 years old. PAIN/ FALL TECHNIQUE: 3 views of the pelvis and hip. COMPARISON: CTA of the abdomen and pelvis dated December 10, 2023 FINDINGS: Stable right hip intramedullary nail and partial 30-40% healing. 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 Hardware fracture and angulation deformity of the intramedullary trace on the proximal aspect of the interlocking screw is unchanged from the December 10, 2023 study. No acute osseous abnormalities are present. There is a non-specific bowel gas pattern. Normal visualized soft tissue structures. Normal bilateral iliac wings, sacroiliac joints and visualized sacrum. Normal bilateral superior and inferior pubic rami. Normal pubic symphysis. Normal bilateral ischial tuberosities. The left hip joint is unremarkable. RAD/HIP, UNI W/ Pelvis 2-3 Views IMPRESSION: 1. Stable right hip intramedullary nail and partial 30-40% healing. 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 Hardware fracture and angulation deformity of the intramedullary trace on the proximal aspect of the interlocking screw is unchanged from the December 10, 2023 study. Electronically Signed: Jimmie Ware MD at 15:07 EDT ,
== END | disposition home or self-care (01) ==
LOC: MTRAD 13:47
PROVIDERS: PCP Family Medicine; Referring Provider Clinical Nurse Specialist Adult Health; Visit Provider Clinical Nurse Specialist Adult Health
DX: M25.551 Pain in right hip (principal); M25.50 Pain in unspecified joint
CPT/HCPCS: 73502

== ENCOUNTER 2024-01-24 20:34 | Emergency (ER) | payer MEDICARE, OTHER, SELFPAY ==
[2024-01-24 20:35] VITALS: BP 166/75; PULSE 59; RESP 16; TEMP 36.2; O2SAT 99; BMI 19.7
[2024-01-24 22:00] LABS: Absolute Lymphocyte Count 1.51 X10^3/uL (0.83-4.51); Absolute Neutrophil Count 4.1 X10^3/uL (2.0-7.7); Basophil# 0.04 X10^3/uL; Basophil% 0.6 % (0-1); Eosinophil# 0.16 X10^3/uL; Eosinophils% 2.5 % (0-5); Hematocrit 30.9 % (37-47); Hemoglobin 10.5 g/dL (12.0-15.0); Lymphocyte # 1.51 X10^3/ul (0.83-4.51); Lymphocyte % 23.6 % (19-41); Mean Corpuscular Hgb 32.3 pg (27.0-32.0); Mean Corpuscular Volume 95.1 fL (81-99); Mean Platelet Vol. 8.8 fl (6.2-12.0); Monocyte# 0.55 X10^3/uL; Monocyte% 8.6 % (0-10); NRBC Flagged by Analyzer 0 % (0-5); Neutrophil # 4.14 X10^3/uL (2.7-7.7); Neutrophil % 64.5 % (47-70); Platelet Count 349 K/mm3 (150-450); RBC Distribution Width CV 13.7 % (11.6-14.6); RBC Distribution Width SD 48.2 fl (35.1-43.9); Red Blood Count 3.25 M/mm3 (4.2-5.4); White Blood Count 6.4 K/mm3 (4.4-11.0)
[2024-01-24 22:06] LABS: Bacteria 0 SEEN /hpf (None Seen); Mucous, Urine 0 SEEN /hpf (<or=2+)
[2024-01-24 22:15] LABS: Anion Gap 10 (5-15); BUN 13 mg/dL (7-18); BUN/Creat Ratio 26.7 RATIO (10-20); Chloride 92 mmol/L (98-107); Creatinine, Serum 0.49 mg/dL (0.55-1.02); EST Glomerular Filtration Rate 130 mL/min (>60); Est Glom Filt Rate - Afr Amer 157 mL/min (>60); Estimated Creatinine Clearance 42.65 ml/min; Glucose 92 mg/dL (74-106); Potassium 3.9 mmol/L (3.5-5.1); Sodium Level 127 mmol/L (136-145)
[2024-01-24 22:18] LABS: Color, Urine Yellow (Yellow); Glucose, Dipstick Normal (Normal); Ketone-Dipstick 50 mg/dl (Negative); Leukocyte Esterase-Dipstick Negative /ul (Negative); Nitrite-Dipstick Negative (Negative); Occult Blood-Urine 10 /ul (Negative); Protein-Dipstick 15 mg/dl (Negative); Urine Bilirubin Dipstick Negative (Negative); Urine Clarity Sl. Cloudy (Clear); Urine Urobilinogen Normal (Normal)
[2024-01-24 22:29] LABS: Amorphous Sediment 2+; Red Blood Cells-Urine 0-5 SEEN /hpf (0-5); Squamous Epithelial Cells - UA 0-5 SEEN /hpf (5-10); White Blood Cells 0-5 SEEN /hpf (0-5)
--- NOTE | 2024-01-24 22:45 | CT_ITS ---
INDICATION: right flank pain EXAMINATION: CT ABDOMEN AND PELVIS WITHOUT CONTRAST - CT Abdomen And Pelvis W/O Contrast Injection TECHNIQUE: Helically acquired images were obtained of the abdomen and pelvis without oral or IV contrast. The protocol utilizes one or more of the following dose reduction techniques: automated exposure control, adjustment of mA and/or kV according to patient size,and/or use of iterative reconstruction technique. IV Contrast dosage and agent: None. Oral contrast: None. RADIATION DOSAGE (If Supplied By Facility): CTDIvol = ( 6.26 ) mGy, DLP = ( 265.75 ) mGycm COMPARISON: CTA Abdomen/PelvisApr 2023 FINDINGS: LOWER CHEST: Lung bases are clear. No cardiomegaly or pericardial effusion. LIVER: Homogeneous. No focal mass. GALLBLADDER AND BILIARY TREE: No calcified gallstones. No gallbladder distension or wall edema. No intra- or extrahepatic biliary ductal dilation. PANCREAS: No focal cystic or solid mass. SPLEEN: Normal size without focal cystic or solid mass. ADRENAL GLANDS: No nodules. KIDNEYS AND URETERS: Normal renal size and position. No hydronephrosis. PERITONEUM: No ascites or free air. No other fluid collection. BOWEL: No evidence of acute appendicitis. No stomach or bowel distension. There is colon diverticulosis. No focal inflammatory change. LYMPH NODES: No enlarged mesenteric or retroperitoneal lymph nodes. VESSELS: Aorta is non-dilated. URINARY BLADDER: Unremarkable. REPRODUCTIVE ORGANS: There is left adnexal cystic lesion measures 8 cm in diameter. ABDOMINAL WALL: Left inguinal hernia measures 4 cm containing a small bowel loop without evidence of incarceration. BONES: There is acute/subacute compression fracture of L1. CT/Abdomen/Pelvis without Cont IMPRESSION: There is acute/subacute compression fracture of L1. There is left adnexal cystic lesion measures 8 cm in diameter. Electronically Signed: Davidson Bella MD at 23:58 EDT ,
[2024-01-24 22:58] VITALS: BP 169/83; PULSE 55; RESP 16; TEMP 37; O2SAT 97
[2024-01-25] VITALS: BP 162/87; PULSE 67; RESP 14; O2SAT 97
[2024-01-25 00:51] VITALS: BP 139/78; PULSE 87; RESP 16; TEMP 36.6; O2SAT 98
--- NOTE | 2024-01-25 01:34 | EDS_ITS ---
HPI History of Present Illness Chief Complaint: Flank Pain Narrative Narrative: 83-year-old female presenting with back pain. She states she has chronic back pain and chronic right hip pain but this is different. This started today and she notes it to be in her right flank. Initially it was very severe but since she has been laying in the bed she said it feels better. Denies any loss of bladder or bowel control. Denies saddle anesthesia. She states she sees pain management and she has oxycodone at home as well as tramadol. Her pain management physician recommended she use one of the other but not both at the same time. She did take tramadol today. She does not have any history of kidney stones. No urinary symptoms. The patient does report that she had a fall on Tuesday but that was 2 to 3 days ago and she did not have pain until today. [facility] Medical History Acute lower gastrointestinal bleeding Hyponatremia History of echocardiogram Wears glasses Post-menopausal Anxiety Alcohol use History of steroid therapy Ambulates with cane Arthritis Back pain Migraine headache Constipation Former smoker Leg cramps History of pain when walking History of fracture of leg Hypertension Home Medications ?Medication ?Instructions ?Recorded ?Last Taken ?Type celecoxib 200 mg capsule 200 mg PO DAILY pain 10/23/21 12/09/23 History lisinopril 20 mg tablet 20 mg PO DAILY blood pressure 10/23/21 12/09/23 History acetaminophen 325 mg tablet 650 mg PO Q4H PRN Pain 09/20/22 09/29/22 History (Tylenol) calcium carbonate 600 mg-vitamin 1 tab PO DAILY supplement 09/20/22 12/09/23 History D3 5 mcg (200 unit) tablet lorazepam 0.5 mg tablet 0.5 mg PO QHS PRN Sleep 09/20/22 12/09/23 History efyvbepo-ybrl-fceu 8 mg-folic 400 1 tab PO DAILY vitamin 09/20/22 12/09/23 History mcg-K 50 mcg-lutein 300 mcg tablet (Multivitamin Women 50 Plus) propranolol 60 mg capsule,24 60 mg PO QHS tremor 12/10/23 12/08/23 History hr,extended release tramadol 50 mg tablet 50 mg PO TID PRN pain 12/10/23 12/09/23 History pantoprazole 40 mg tablet,delayed 40 mg PO DAILY #30 tabs 12/13/23 Unknown Rx release Allergy/AdvReac Type Severity Reaction Status Date / Time venom-honey bee Allergy Hives Verified 01/24/24 20:35 venom-wasp Allergy Hives Verified 01/24/24 20:35 naproxen AdvReac Other Verified 01/24/24 20:35 prednisone AdvReac Other Verified 01/24/24 20:35 Surgical History H/O shoulder replacement Hx of right cataract extraction Hx of left cataract extraction Hx of colonoscopy Social History housing: house Smoking Status: Former smoker ROS ROS ED Constitutional Constitutional ED: Denies chills, fever(s) or sweats Eyes Eyes: Denies blurry vision or change in vision ENT ENT ED: Denies ear pain or sore throat Cardiovascular Cardiovascular: Denies chest pain, palpitations or racing heartbeat Respiratory/Chest Respiratory/Chest: Denies cough, dyspnea or sputum Gastrointestinal Gastrointestinal: Denies abdominal pain, constipation, diarrhea, nausea or vomiting Genitourinary Genitourinary ED: Denies dysuria, hematuria or urinary frequency Musculoskeletal Musculoskeletal: Reports back pain; Denies arthralgias, myalgias or neck pain Integumentary Denies abscess, Abrasions or rash Neurologic Neurologic: Denies headache(s), paresthesias or weakness Psychiatric Psychiatric: Denies anxiety, depression, suicidal ideation or suicidal thoughts Endocrine Endocrinology: Denies polydipsia or polyuria EXAM Physical Exam Const Vital Signs: 01/24/24 20:35 01/24/24 22:58 01/25/24 00:00 Temperature 97.2 F L 98.6 F Temperature Source Temporal Temporal Pulse Rate 59 L 55 L 67 Respiratory Rate 16 16 14 Blood Pressure 166/75 H 169/83 H 162/87 H Blood Pressure Mean 105 111 112 Pulse Ox 99 97 97 Oxygen Delivery Method Room Air 01/25/24 00:51 Temperature 98 F Temperature Source Pulse Rate 87 Respiratory Rate 16 Blood Pressure 139/78 H Blood Pressure Mean 98 Pulse Ox 98 Oxygen Delivery Method Positive well nourished HEENT Reports moist mucous membranes Eyes PERRL and EOMs intact bilaterally Resp normal respiratory effort and clear to auscultation bilaterally Cardio regular rate and regular rhythm Back/Spine Back/Spine Narrative: Tenderness to palpation right lumbar paraspinal musculature with CVA tenderness noted. There is also tenderness to palpation. There is no midline deformities or step-offs. Extremity normal to inspection Neuro oriented x3 and no sensory deficits noted Psych mental status grossly normal MDM MDM MDM Narrative Medical decision making narrative: Patient presenting for back pain. She declines analgesia as she already takes some pain medicines today. Differential includes compression fracture, kidney stone, dehydration, anemia, electro normalities, UTI, pyelonephritis. CBC was obtained to assess for blood cell count, hemoglobin, platelets. BMP to assess renal function and electrolytes. Urinalysis to assess for UTI or occult blood. Patient declined analgesia as she states he is not in pain right now. CBC shows normal white blood count 6.4. Hemoglobin is 10.5 and at baseline. Renal function is normal. Sodium slightly low at 127 although the states he is not dizzy. Urinalysis was negative for infection. CT of the abdomen pelvis was obtained and shows findings consistent with acute/subacute lumbar compression fracture L1. There is no evidence of kidney stone. There is a left-sided adnexal cyst on the CT. Patient made aware of this. She does not have any kidney stones noted. Since patient has adequate pain medication at home and a pain management physician I will discharge her into the care of her family. Impression 1. L1 compression fracture 2. Left adnexal cyst/lesion Lab Data Attestation: I reviewed the patient's lab results. Labs: Laboratory Results - last 24 hr 01/24/24 01/24/24 21:55 22:03 WBC 6.4 RBC 3.25 L Hgb 10.5 L Hct 30.9 L MCV 95.1 MCH 32.3 H MCHC 34.0 RDW Std Deviation 48.2 H RDW Coeff of Cas 13.7 Plt Count 349 MPV 8.8 Immature Gran % (Auto) 0.200 Neut % (Auto) 64.5 Lymph % (Auto) 23.6 [place] % (Auto) 8.6 Eos % (Auto) 2.5 Baso % (Auto) 0.6 Absolute Neuts (auto) 4.1 Absolute Lymphs (auto) 1.51 Nucleated RBC % 0 Sodium 127 L Potassium 3.9 Chloride 92 L Carbon Dioxide 25.0 Anion Gap 10 BUN 13 Creatinine 0.49 L Estim Creat Clear Calc 42.65 Est GFR (MDRD) Af Amer 157 Est GFR (MDRD) Non-Af 130 BUN/Creatinine Ratio 26.7 H Glucose 92 Calcium 9.0 Urine Color Yellow Urine Clarity Sl. Cloudy Urine pH 7.0 Ur Specific [place] 1.010 Urine Protein 15 H Urine Glucose (UA) Normal Urine Ketones 50 H Urine Occult Blood 10 H Urine Nitrite Negative Urine Bilirubin Negative Urine Urobilinogen Normal Ur Leukocyte Esterase Negative Urine RBC 0-5 SEEN Urine WBC 0-5 SEEN Ur Squamous Epith Cells 0-5 SEEN Amorphous Sediment 2+ Urine Bacteria 0 SEEN Urine Mucus 0 SEEN Radiography Diagnostic Testing: Clinical Impression(s) from Imaging Studies Abdomen/Pelvis CT 01/24/24 22:45 IMPRESSION: There is acute/subacute compression fracture of L1. There is left adnexal cystic lesion measures 8 cm in diameter. Electronically Signed: Davidson Bella MD at 23:58 EDT Reading Location ID and State: [facility] / [place] Tel , Service support , ADDENDUM: 01/25/24 0007 IMPRESSION: undefined Discharge Plan Triage Chief Complaint: Flank Pain ED Provider: Jose Raul Irene Dx/Rx/DC Orders Instructions: ED Fracture, Vertebral Compression, ED Ovarian Cyst Prescriptions: No Action celecoxib 200 mg capsule 200 mg PO DAILY lisinopril 20 mg tablet 20 mg PO DAILY acetaminophen [Tylenol] 325 mg Tablet 650 mg PO Q4H PRN (Reason: Pain) calcium carbonate-vitamin D3 600 mg-5 mcg (200 unit) Tablet 1 tab PO DAILY lorazepam 0.5 mg Tablet 0.5 mg PO QHS PRN (Reason: Sleep) Multivitamin Women 50 Plus 8 mg iron-400 mcg-300 mcg Tablet 1 tab PO DAILY propranolol 60 mg capsule,extended release 24 hr 60 mg PO QHS Patient Comments: CALLED PCP FOR REFILL BUT CURRENTLY OUT OF MEDICATION tramadol 50 mg tablet 50 mg PO TID PRN pantoprazole 40 mg Tablet,Delayed Release (Dr/Ec) 40 mg PO DAILY Qty: 30 0RF Primary Care Provider: Rolf Peck Referrals: Rolf Peck MD [Primary Care Provider] - Print Language: Belgian Disposition Disposition: Home, Self Care Discharge Date/Time: 01/25/24 00:52
== END 2024-01-25 00:52 | disposition home or self-care (01) ==
PROVIDERS: Emergency Provider Student in an Organized Health Care Education/Training Program; PCP Family Medicine; Visit Provider Student in an Organized Health Care Education/Training Program
DX: M48.56XA Collapsed vertebra, not elsewhere classified, lumbar region, initial encounter for fracture (principal); Z87.891 Personal history of nicotine dependence; W19.XXXA Unspecified fall, initial encounter; I10 Essential (primary) hypertension; Z79.899 Other long term (current) drug therapy; Z96.619 Presence of unspecified artificial shoulder joint; Z98.41 Cataract extraction status, right eye; Z98.42 Cataract extraction status, left eye; N83.202 Unspecified ovarian cyst, left side
CPT/HCPCS: 74176; 80048; 81001; 85025; 99283; A4216

== ENCOUNTER 2024-03-07 10:50 | Outpatient (CLI) | payer MEDICARE, OTHER, SELFPAY ==
[2024-03-07 11:10] VITALS: BP 126/56; PULSE 52; RESP 16; TEMP 36.7; O2SAT 98
[2024-03-07 12:04] VITALS: BP 118/62; PULSE 63; RESP 16; TEMP 36.9; O2SAT 98
[2024-03-07 13:07] VITALS: BP 135/63; PULSE 56; RESP 16; TEMP 36.8; O2SAT 99
== END 2024-03-07 23:59 | disposition home or self-care (01) ==
LOC: MEDOUTP 10:50
PROVIDERS: PCP Family Medicine; Referring Provider Internal Medicine; Visit Provider Internal Medicine
DX: D64.9 Anemia, unspecified (principal)
CPT/HCPCS: 36415; 36430; 86644; 86850; 86900; 86901; 86920; 86922; J7040; P9040; A4216

== ENCOUNTER 2024-04-12 08:51 | Inpatient (IN) | payer MEDICARE, OTHER, SELFPAY ==
[2024-04-12] VITALS (10 sets, daily range): BP systolic 100–120; BP diastolic 42–59; PULSE 50–61; RESP 13–18; TEMP 36–36.8; O2SAT 93–99; BMI 19.3
--- NOTE | 2024-04-12 08:59 | CT_ITS ---
We are attempting to reach an attending provider to discuss findings. An addendum with communication details will be sent when the communication is complete. STUDY: CT ABDOMEN AND PELVIS WITHOUT CONTRAST REASON FOR EXAM: Female, 83 years old. Pain RADIATION DOSAGE (If Supplied By Facility): CTDIvol = ( 5.70 ) mGy, DLP = ( 249.28 ) mGycm TECHNIQUE: Transaxial images were obtained from the dome of the diaphragm to the symphysis pubis without oral contrast, and without intravenous contrast. Sagittal and coronal images were reconstructed. Individualized dose optimization techniques were used for this CT. COMPARISON: 01/24/2024 FINDINGS: The visualized lung bases are unremarkable. Cardiomegaly. Normal liver. Normal gallbladder and extrahepatic biliary system. Normal spleen. Normal pancreas. Normal bilateral adrenal glands. Normal right kidney. Normal left kidney. Normal visualized stomach. Normal small intestine. There are several bubbles of gas within the right side of the pelvis in close proximity to the sigmoid colon on image 70 which are not clearly intraluminal and possibly consistent with perforation. However, there is no gross pneumoperitoneum throughout the abdomen or pelvis. Clinical correlation and CT the abdomen and pelvis with oral and intravenous contrast may be useful. The appendix is visualized and appears normal. There is diffuse atherosclerotic calcification of the abdominal aorta, without a demonstrated aneurysm. Normal inferior vena cava. Normal retroperitoneum. Normal urinary bladder. No change in the 7 cm oval mass of water attenuation in the left side of the pelvis consistent with a physiologic cyst, par ovarian cyst, or cystadenoma. 6 cm left inguinal hernia with incarceration of a loop of small bowel but without evidence of bowel obstruction. Status post right hip arthroplasty. Moderate levoscoliosis of the lumbar spine with degenerative disc disease. CT/Abdomen/Pelvis without Cont IMPRESSION: Questionable extraluminal gas within the left side of the pelvis worrisome for bowel perforation. Clinical correlation and correlation with CT the abdomen and pelvis with oral and intravenous contrast would be useful. Left inguinal hernia with incarceration of small bowel but without bowel obstruction. No change in 7 cm left ovarian physiologic cyst, pars. Cyst versus adenoma. Electronically Signed: Moshe Alonso MD at 10:33 EDT ,
--- NOTE | 2024-04-12 08:59 | ED.VIS.GI ---
HPI HPI - GI History of Present Illness Chief Complaint: Abd Pain Detail of Chief Complaint: Abdominal pain Informant: patient Nausea/Vomiting/Emesis GI Symptom: Positive for Nausea and Vomiting Narrative Narrative: Patient presents via EMS from skilled nursing with complaint of abdominal pain that she has had for several days. Pain has been intermittent until last evening when he became more continuous at its worst pain last night 10 out of 10. Currently down to a 5 out of 10. She describes it is low in the left abdomen. Some discomfort into her back. Patient with nausea and vomited x 1. She subjectively felt hot but did not check her temperature. No prior abdominal surgeries. [facility] Medical History Acute lower gastrointestinal bleeding Hyponatremia History of echocardiogram Wears glasses Post-menopausal Anxiety Alcohol use History of steroid therapy Ambulates with cane Arthritis Back pain Migraine headache Constipation Former smoker Leg cramps History of pain when walking History of fracture of leg Hypertension Home Medications ?Medication ?Instructions ?Recorded ?Last Taken ?Type lisinopril 20 mg tablet 20 mg PO DAILY blood pressure 10/23/21 12/09/23 History acetaminophen 325 mg tablet 650 mg PO Q4H PRN Pain 09/20/22 09/29/22 History (Tylenol) calcium carbonate 600 mg-vitamin 1 tab PO DAILY supplement 09/20/22 12/09/23 History D3 5 mcg (200 unit) tablet lorazepam 0.5 mg tablet 0.5 mg PO QHS PRN Sleep 09/20/22 12/09/23 History propranolol 60 mg capsule,24 60 mg PO QHS tremor 12/10/23 12/08/23 History hr,extended release pantoprazole 40 mg tablet,delayed 40 mg PO DAILY #30 tabs 12/13/23 Unknown Rx release docusate sodium 100 mg capsule 100 mg PO BID PRN 03/07/24 Unknown History (Colace) enoxaparin 40 mg/0.4 mL 40 mg subcut DAILY 03/07/24 Unknown History subcutaneous syringe ferrous sulfate 325 mg (65 mg 325 mg PO BID 03/07/24 Unknown History iron) tablet (Feosol) oxycodone 5 mg capsule 5 mg PO Q4H PRN pain 03/07/24 Unknown History polyethylene glycol 3350 17 17 g PO DAILY PRN constipation 04/12/24 Unknown History gram/dose oral powder (ClearLax) sennosides 8.6 mg tablet 8.6 mg PO DAILY PRN constipation 04/12/24 Unknown History (Evac-U-Gen (sennosides)) Allergy/AdvReac Type Severity Reaction Status Date / Time venom-honey bee Allergy Hives Verified 04/12/24 09:25 venom-wasp Allergy Hives Verified 04/12/24 09:25 naproxen AdvReac Other Verified 04/12/24 09:25 prednisone AdvReac Other Verified 04/12/24 09:25 Family History no significant family his Surgical History H/O shoulder replacement Hx of right cataract extraction Hx of left cataract extraction Hx of colonoscopy Social History housing: house Smoking Status: Former smoker ROS ROS ED Review of Systems ROS Unobtainable: other Constitutional Constitutional ED: Reports lethargy; Denies chills, fever(s), sweats or weight loss Eyes Eyes: Denies blurry vision, change in vision or diplopia ENT ENT ED: Denies rhinorrhea or sore throat Cardiovascular Cardiovascular: Denies chest pain, orthopnea or racing heartbeat Respiratory/Chest Respiratory/Chest: Denies cough, dyspnea, dyspnea on exertion, orthopnea or sputum Gastrointestinal Gastrointestinal: Reports abdominal pain, nausea and vomiting; Denies diarrhea Genitourinary Genitourinary ED: Denies dysuria, hematuria or urinary frequency Musculoskeletal Musculoskeletal: Denies arthralgias, back pain, myalgias or neck pain Integumentary Denies abscess, Abrasions or rash Neurologic Neurologic: Denies headache(s) or weakness Psychiatric Psychiatric: Denies anxiety, depression or suicidal thoughts Endocrine Endocrinology: Denies polydipsia, polyphagia or polyuria Hematologic/Lymphatic Hematologic/Lymphatic: Denies easy bleeding, easy bruising or lymphadenopathy Allergic/Immunologic Allergic/Immunologic ED: Denies mouth swelling, tongue swelling or urticaria EXAM Physical Exam Const Vital Signs: 04/12/24 08:52 04/12/24 10:52 04/12/24 11:48 Temperature 96.8 F L 98.1 F Temperature Source Temporal Pulse Rate 60 59 L 61 Respiratory Rate 18 14 14 Blood Pressure 120/59 L 106/56 L 111/54 L Blood Pressure Mean 79 72 73 Pulse Ox 94 94 95 Oxygen Delivery Method Room Air Room Air 04/12/24 11:51 Temperature 98.1 F Temperature Source Temporal Pulse Rate 61 Respiratory Rate 14 Blood Pressure 111/54 L Blood Pressure Mean 73 Pulse Ox 95 Oxygen Delivery Method Room Air Positive well nourished and well developed General Appearance ED: well developed and NAD HEENT Reports TM's clear and moist mucous membranes normocephalic and atraumatic; Negative for trauma or tenderness Tympanic Membrane ED: Yes TM's clear Eyes PERRL and EOMs intact bilaterally General Eye ED: Negative for pale conjunctiva or scleral icterus Neck no lymphadenopathy, supple and no JVD General: Negative for tenderness Chest Wall inspection of chest normal and palpation of chest normal Chest: Negative for tenderness Resp normal respiratory effort and clear to auscultation bilaterally Effort and Inspection: Negative for respiratory distress or pain with movement Auscultation: Negative for rhonchi, wheezes or diminished lung sounds Cardio regular rate, regular rhythm, S1 normal heart sound, S2 normal heart sound and no murmurs Peripheral Pulses: pulses 2+ throughout GI normal to inspection, nondistended, normoactive bowel sounds, soft to palpation, non-distended and no masses GI Narrative: Tenderness palpation over the left lower quadrant with guarding. There is no rebound, rigidity, peritoneal signs. No mass palpated. Back/Spine no CVA tenderness and no thoracic nor lumbar tenderness Extremity normal to inspection General Extremety ED: Negative for edema General Extremity: Negative for edema Neuro oriented x3, CN's II-XII intact bilaterally, no sensory deficits noted and gait normal Sensorium / Orientation: awake, alert, oriented to person, oriented to place and oriented to time Motor Exam: strength 5/5 throughout and strength abnormal Psych mental status grossly normal Skin no rashes or lesions noted and no wounds MDM MDM MDM Narrative Medical decision making narrative: Patient presents with lower left quadrant abdominal pain. In the differential would be diverticulitis versus UTI versus kidney stone or other acute intra-abdominal process. IV line established. Patient was medicated Zofran as she had minimal discomfort initially. CBC with differential obtained at 19,000 with hemoglobin 11.2 and platelet count of 354. Chemistries unremarkable. LFTs show slight elevation in total bilirubin at 1.1 AST of 56 and ALT of 77. Urinalysis was unremarkable. Initial CT scan of the abdomen pelvis without contrast showed questionable free air in the left lower quadrant and a left ovarian cyst that is chronic. I discussed case with Dr. Canales who presented to the emergency department to evaluate the patient. Discussed case also with radiologist who read the initial scan who recommended obtaining a CT scan with IV contrast to evaluate further. Surgeon then also spoke with radiologist reading the new scan with IV contrast and it was felt that there was no free air but there was edema of the left side of the colon. I was asked to start patient on Zosyn and admit patient to medicine with surgical consult and GI consult. Discussed case with Dr. Parra who will evaluate patient for admission Lab Data Attestation: I reviewed the patient's lab results. Labs: Laboratory Results - last 24 hr 04/12/24 04/12/24 04/12/24 09:05 09:08 10:03 WBC 19.0 H RBC 3.75 L Hgb 11.2 L Hct 34.5 L MCV 92.0 MCH 29.9 MCHC 32.5 RDW Std Deviation 52.0 H RDW Coeff of Cas 15.4 H Plt Count 354 MPV 10.3 Immature Gran % (Auto) 0.900 Neut % (Auto) 84.5 H Lymph % (Auto) 8.1 L [place] % (Auto) 6.2 Eos % (Auto) 0.1 Baso % (Auto) 0.2 Absolute Neuts (auto) 16.1 H Absolute Lymphs (auto) 1.53 Nucleated RBC % 0 Sodium 132 L Potassium 4.2 Chloride 98 Carbon Dioxide 28.0 Anion Gap 6 BUN 25 H Creatinine 0.64 Estim Creat Clear Calc 44.40 Est GFR (MDRD) Af Amer 113 Est GFR (MDRD) Non-Af 94 BUN/Creatinine Ratio 38.8 H Glucose 122 H Lactic Acid 1.3 Calcium 9.4 Total Bilirubin 1.10 H AST 56 H ALT 77 H Alkaline Phosphatase 90 Total Protein 7.0 Albumin 3.1 L Globulin 3.9 Albumin/Globulin Ratio 0.8 L Urine Color Yellow Urine Clarity Clear Urine pH 7.0 Ur Specific [place] 1.010 Urine Protein 30 H Urine Glucose (UA) Normal Urine Ketones Negative Urine Occult Blood 25 H Urine Nitrite Negative Urine Bilirubin Negative Urine Urobilinogen Normal Ur Leukocyte Esterase 25 H Urine RBC 0 SEEN Urine WBC 0-5 SEEN Ur Squamous Epith Cells 0-5 SEEN Urine Bacteria 0 SEEN Urine Mucus 0 SEEN Radiography Diagnostic Testing: Clinical Impression(s) from Imaging Studies Abdomen/Pelvis CT 04/12/24 08:59 IMPRESSION: Questionable extraluminal gas within the left side of the pelvis worrisome for bowel perforation. Clinical correlation and correlation with CT the abdomen and pelvis with oral and intravenous contrast would be useful. Left inguinal hernia with incarceration of small bowel but without bowel obstruction. No change in 7 cm left ovarian physiologic cyst, pars. Cyst versus adenoma. Electronically Signed: Moshe Alonso MD at 10:33 EDT , ADDENDUM: 04/12/24 1053 IMPRESSION: Questionable extraluminal gas within the left side of the pelvis worrisome for bowel perforation. Clinical correlation and correlation with CT the abdomen and pelvis with oral and intravenous contrast would be useful. Left inguinal hernia with incarceration of small bowel but without bowel obstruction. No change in 7 cm left ovarian physiologic cyst, pars. Cyst versus adenoma. N.B. : The above Results were Read Back by Moshe Alonso MD to Rick Peralta DO, and understanding confirmed on 04/12/2024 10:46:28 (ET). Electronically Signed: Moshe Alonso MD at 10:33 EDT , Discharge Plan Triage Chief Complaint: Abd Pain ED Provider: Rick De León Dx/Rx/DC Orders Clinical Impression: Abdominal pain, Colitis, Leukocytosis Prescriptions: No Action lisinopril 20 mg tablet 20 mg PO DAILY acetaminophen [Tylenol] 325 mg Tablet 650 mg PO Q4H PRN (Reason: Pain) calcium carbonate-vitamin D3 600 mg-5 mcg (200 unit) Tablet 1 tab PO DAILY lorazepam 0.5 mg Tablet 0.5 mg PO QHS PRN (Reason: Sleep) propranolol 60 mg capsule,extended release 24 hr 60 mg PO QHS Patient Comments: CALLED PCP FOR REFILL BUT CURRENTLY OUT OF MEDICATION pantoprazole 40 mg Tablet,Delayed Release (Dr/Ec) 40 mg PO DAILY Qty: 30 0RF enoxaparin 40 mg/0.4 mL syringe 40 mg subcut DAILY docusate sodium [Colace] 100 mg capsule 100 mg PO BID PRN ferrous sulfate [Feosol] 325 mg (65 mg iron) tablet 325 mg PO BID oxycodone 5 mg capsule 5 mg PO Q4H PRN (Reason: pain) polyethylene glycol 3350 [ClearLax] 17 gram/dose powder 17 g PO DAILY PRN (Reason: constipation) sennosides [Evac-U-Gen (sennosides)] 8.6 mg tablet 8.6 mg PO DAILY PRN (Reason: constipation) Primary Care Provider: Rolf Peck Referrals: Rolf Peck MD [Primary Care Provider] - Print Language: Georgian Disposition Disposition: Acute Care [facility]
[2024-04-12] MEDS: Ondansetron 4 MG/2 ML Vial IV ×2 (09:05→11:01)
[2024-04-12] MEDS: 0.9% Normal Saline (1000mL) 1,000 ML 125 ML IV ×2 (09:09→19:29)
[2024-04-12 09:16] LABS: Absolute Lymphocyte Count 1.53 X10^3/uL (0.83-4.51); Absolute Neutrophil Count 16.1 X10^3/uL (2.0-7.7); Basophil# 0.03 X10^3/uL; Basophil% 0.2 % (0-1); Eosinophil# 0.01 X10^3/uL; Eosinophils% 0.1 % (0-5); Hematocrit 34.5 % (37-47); Hemoglobin 11.2 g/dL (12.0-15.0); Lymphocyte # 1.53 X10^3/ul (0.83-4.51); Lymphocyte % 8.1 % (19-41); Mean Corp Hgb Conc 32.5 g/dL (32-36); Mean Corpuscular Hgb 29.9 pg (27.0-32.0); Mean Platelet Vol. 10.3 fl (6.2-12.0); Monocyte# 1.18 X10^3/uL; Monocyte% 6.2 % (0-10); NRBC Flagged by Analyzer 0 % (0-5); Neutrophil # 16.08 X10^3/uL (2.7-7.7); Neutrophil % 84.5 % (47-70); Platelet Count 354 K/mm3 (150-450); RBC Distribution Width CV 15.4 % (11.6-14.6); Red Blood Count 3.75 M/mm3 (4.2-5.4)
[2024-04-12 09:29] LABS: ALB/GLOB Ratio 0.8 RATIO (0.9-2.4); AST(SGOT) 56 U/L (15-37); Alanine Aminotransfer ALT/SGPT 77 U/L (13-56); Albumin, Serum 3.1 g/dL (3.2-5.0); Alkaline Phosphatase 90 U/L (45-117); Anion Gap 6 (5-15); BUN 25 mg/dL (7-18); BUN/Creat Ratio 38.8 RATIO (10-20); Calcium,Total 9.4 mg/dL (8.5-10.1); Chloride 98 mmol/L (98-107); Creatinine, Serum 0.64 mg/dL (0.55-1.02); EST Glomerular Filtration Rate 94 mL/min (>60); Est Glom Filt Rate - Afr Amer 113 mL/min (>60); Globulin 3.9 g/dL (2.2-4.2); Glucose 122 mg/dL (74-106); Potassium 4.2 mmol/L (3.5-5.1); Sodium Level 132 mmol/L (136-145)
[2024-04-12 09:33] LABS: Lactic Acid 1.3 mmol/L (0.4-1.9)
[2024-04-12 10:07] LABS: Bacteria 0 SEEN /hpf (None Seen); Mucous, Urine 0 SEEN /hpf (<or=2+); Red Blood Cells-Urine 0 SEEN /hpf (0-5)
[2024-04-12 10:11] LABS: Color, Urine Yellow (Yellow); Glucose, Dipstick Normal (Normal); Ketone-Dipstick Negative (Negative); Leukocyte Esterase-Dipstick 25 /ul (Negative); Nitrite-Dipstick Negative (Negative); Occult Blood-Urine 25 /ul (Negative); Protein-Dipstick 30 mg/dl (Negative); Urine Bilirubin Dipstick Negative (Negative); Urine Clarity Clear (Clear); Urine Urobilinogen Normal (Normal)
[2024-04-12 10:33] LABS: Squamous Epithelial Cells - UA 0-5 SEEN /hpf (5-10); White Blood Cells 0-5 SEEN /hpf (0-5)
--- NOTE | 2024-04-12 10:50 | CT_ITS ---
EXAM: CT ABDOMEN AND PELVIS WITH INTRAVENOUS CONTRAST CLINICAL INDICATION: Abdominal pain. Questionable extraluminal gas in the left side of the pelvis worrisome for possible perforation. TECHNIQUE: Helically acquired images were obtained of the abdomen and pelvis with intravenous contrast. This CT exam was performed using one or more of the following dose reduction techniques: automated exposure control, adjustment of the mA and/or kV according to patient size, and/or use of iterative reconstruction technique. CONTRAST: 100 mL of IV Isovue-370. RADIATION DOSE: CTDIvol = 13.15 mGy, DLP = 457.04 mGy-cm COMPARISON: CT abdomen and pelvis without contrast 04/12/[address] abdomen and pelvis without contrast 01/24/2024. CTA of the abdomen and pelvis with contrast 12/10/2023. FINDINGS: LOWER THORAX: Unremarkable. Lung bases are clear. No cardiomegaly. No significant pericardial effusion. ABDOMEN: LIVER: 1.2 cm low-attenuation lesion in segment 6 of the liver parenchyma was barely visible without contrast. There was peripheral contrast enhancement on the CTA raising the possibility of hemangioma but not conclusive. The remainder of the liver parenchyma is normal. GALLBLADDER AND BILE DUCTS: Unremarkable. No calcified gallstones. No gallbladder distention or wall edema. No intra- or extrahepatic biliary ductal dilation. PANCREAS: Unremarkable. No focal cystic or solid mass. SPLEEN: Unremarkable. Normal size without focal cystic or solid mass. ADRENALS: Unremarkable. No nodules. KIDNEYS AND URETERS: Unremarkable. Normal renal size and position. No hydronephrosis. STOMACH AND BOWEL: Bilateral inguinal hernias containing small bowel loops, left side more than the right. No bowel obstruction, strangulation or ischemia. No extraluminal air to suspect bowel perforation in the left side of the pelvis despite the absence of small bowel contrast and colorectal contrast. There is persistent intramural edema of the lower descending colon but not the upper descending colon or splenic flexure. PELVIS: APPENDIX: Not visualized but no secondary signs of acute appendicitis. BLADDER: No suspicious abnormality of the underdistended urinary bladder. REPRODUCTIVE: Large 7.8 x 5.4 x 7.4 cm cyst in the left side of the lower pelvis is uncertain for ovarian cyst. This is causing displacement of the adjacent sigmoid colon and rectum. ABDOMEN and PELVIS: INTRAPERITONEAL SPACE: No suspicious pneumoperitoneum particularly in the left anterior lower pelvis in today''s exam. The questionable pneumoperitoneum air was inside the small bowel. The small bowel in the left lower anterior pelvis is now collapsed. BONES/JOINTS: Pronounced diffuse degenerative disc space height narrowing throughout the lumbar spine. Moderate levo rotary scoliosis of the lumbar spine. Nearly grade 2 right lateral subluxation of L1 on L2. Increased loss of the upper L1 vertebral body height of the previously acute/subacute compression fracture. No new fractures. Right metallic hip arthroplasty causing extensive metallic streak artifacts. No suspicious lytic or blastic abnormality. SOFT TISSUES: Bilateral inguinal hernias, left side containing more collapsed small bowel than right. VASCULATURE: Heavy calcified plaques along the abdominal aorta. Abdominal aorta is non-dilated. LYMPH NODES: Unremarkable. No enlarged lymph nodes. CT/Abdomen/Pelvis W IV Cont ONLY IMPRESSION: 1. Abnormal intradural edema in the lower descending colon without contrast enhancement is unchanged. This was not present on CT abdomen and pelvis of 01/24/2024 and CTA of the abdomen and pelvis of 12/10/2023. Exact etiology is uncertain at this time. There is high-grade stenosis of the GAVIN origin secondary to noncalcified plaque on the CTA but the SMA show no significant stenosis or occlusion on the CTA of 12/10/2023. Recent colonoscopy apparently suggested ischemic colitis. It is quite possible that the SMA did not provide adequate collateral circulation to the left lower descending colon.. Conventional abdominal aortogram to include the celiac artery, SMA and GAVIN may be helpful for further evaluation. 2. Collapsed small bowel accounted for questionable pneumoperitoneum in the left lower anterior pelvis. 3. 7.8 x 5.4 x 7.4 cm cyst in the left side of the lower pelvis is uncertain for ovarian cyst. This is causing displacement of the adjacent rectosigmoid colon. This is unchanged. 4. Bilateral inguinal hernias, left side containing more collapsed small bowel than the right. No suspicious small bowel strangulation, ischemia or infarction. 5. 1.2 cm low-attenuation lesion in segment 6 of the liver parenchyma. There was previous peripheral contrast enhancement on CTA raising the possibility of hemangioma but not conclusive. ACR White Paper guidelines (Radha, et al. JACR 2017; 14(11):8860-0868.) suggest no follow-up is necessary. 6. Increased loss of the previously acute compression fracture of the upper L1 vertebral body height when compared to 01/24/2024. This fracture was not present on 12/10/2023. 7. Moderate levo rotary scoliosis of the lumbar spine and nearly grade 2 right lateral subluxation of L1 on L2 are unchanged. Electronically Signed: Glenn Aguilar MD at 11:55 EDT ,
[2024-04-12] MEDS: Morphine 4 MG/ML Syringe IV ×2 (11:01→14:28)
--- NOTE | 2024-04-12 11:34 | EX.PCM.CON.S ---
Assessment & Plan Assessment/Plan (1) Colitis: PLAN: The patient has left lower quadrant pain and elevated white count. She had a CT scan which showed possible perforation with free air. The CT scan was repeated with IV contrast. I saw her and performed physical exam which shows a possible hernia in the left lower quadrant as well as an inguinal hernia but both are easily reduced. She has left lower quadrant pain with no guarding or rebound. She is not have any tachycardia. I discussed her repeat CT with IV contrast with the radiologist and he believes that there is no free air and there is submucosal thickening and edema that was not there in January. This is of the descending colon. At this time I recommend antibiotics and n.p.o. and medicine will admit the patient and consult GI as well. If there is any clinical changes or worsening I will take her for surgery and I did discuss this with her. I will repeat a CT scan in the morning with oral and rectal contrast to evaluate and to give it some time to declare itself. If tomorrow's CT scan shows any problem or if her white count goes up on antibiotics or if there is signs of ischemia or peritoneal signs I will take her surgery at that time. Patient is in agreement with the plan. I discussed surgery briefly with her and sigmoid colectomy possible descending colectomy with colostomy. Chuck Canales MD Pager: [facility] [address] [place] [address], [address] [place] [address] Office: HPI Consult Data Date of Consult: 04/12/24 HPI Narrative HPI Narrative: GEORGINA LEONARD, is a 83 F who presents with left lower quadrant pain and nausea and vomiting that started last night. She says that the pain has been going on for several days and she was recently admitted in January for ischemic colitis. She denies any blood per her rectum. She says the pain is in the left lower quadrant most severely. She says that this started becoming more severe last night and she felt warm but did not take her temperature and had some nausea and vomiting. [facility] Medical History Acute lower gastrointestinal bleeding Hyponatremia History of echocardiogram Wears glasses Post-menopausal Anxiety Alcohol use History of steroid therapy Ambulates with cane Arthritis Back pain Migraine headache Constipation Former smoker Leg cramps History of pain when walking History of fracture of leg Hypertension Home Medications ?Medication ?Instructions ?Recorded ?Last Taken ?Type lisinopril 20 mg tablet 20 mg PO DAILY blood pressure 10/23/21 12/09/23 History acetaminophen 325 mg tablet 650 mg PO Q4H PRN Pain 09/20/22 09/29/22 History (Tylenol) calcium carbonate 600 mg-vitamin 1 tab PO DAILY supplement 09/20/22 12/09/23 History D3 5 mcg (200 unit) tablet lorazepam 0.5 mg tablet 0.5 mg PO QHS PRN Sleep 09/20/22 12/09/23 History propranolol 60 mg capsule,24 60 mg PO QHS tremor 12/10/23 12/08/23 History hr,extended release pantoprazole 40 mg tablet,delayed 40 mg PO DAILY #30 tabs 12/13/23 Unknown Rx release docusate sodium 100 mg capsule 100 mg PO BID PRN 03/07/24 Unknown History (Colace) enoxaparin 40 mg/0.4 mL 40 mg subcut DAILY 03/07/24 Unknown History subcutaneous syringe ferrous sulfate 325 mg (65 mg 325 mg PO BID 03/07/24 Unknown History iron) tablet (Feosol) oxycodone 5 mg capsule 5 mg PO Q4H PRN pain 03/07/24 Unknown History polyethylene glycol 3350 17 17 g PO DAILY PRN constipation 04/12/24 Unknown History gram/dose oral powder (ClearLax) sennosides 8.6 mg tablet 8.6 mg PO DAILY PRN constipation 04/12/24 Unknown History (Evac-U-Gen (sennosides)) Allergy/AdvReac Type Severity Reaction Status Date / Time venom-honey bee Allergy Hives Verified 04/12/24 09:25 venom-wasp Allergy Hives Verified 04/12/24 09:25 naproxen AdvReac Other Verified 04/12/24 09:25 prednisone AdvReac Other Verified 04/12/24 09:25 Family History no significant family his Surgical History H/O shoulder replacement Hx of right cataract extraction Hx of left cataract extraction Hx of colonoscopy Social History housing: house Smoking Status: Former smoker ROS Constitutional Constitutional: Reports anorexia and fever(s); Denies chills or fatigue Eyes Eyes: Denies blurry vision ENT HEENT: Denies abnormal hearing Cardiovascular Cardiovascular: Denies chest pain Respiratory/Chest Respiratory/Chest: Denies cough or dyspnea Gastrointestinal Gastrointestinal: Reports abdominal pain, nausea and vomiting; Denies constipation or diarrhea Genitourinary Genitourinary: Denies change in urinary stream Musculoskeletal Musculoskeletal: Denies abnormal gait Integumentary Integumentary: Denies jaundice Psychiatric Psychiatric: Denies anxiety Endocrine Endocrinology: Denies flushing Physical Exam Const alert and oriented x3 HEENT normocephalic Eyes PERRL Resp normal respiratory effort Cardio Rate: regular rate Rhythm: regular rhythm GI soft to palpation Palpation: tender LLQ Extremity normal to inspection Lab / Micro Data 04/12/24 09:08 04/12/24 09:08 Labs: Laboratory Results - last 24 hr 04/12/24 09:05: Lactic Acid 1.3 04/12/24 09:08: WBC 19.0 H, RBC 3.75 L, Hgb 11.2 L, Hct 34.5 L, MCV 92.0, MCH 29.9, MCHC 32.5, RDW Std Deviation 52.0 H, RDW Coeff of Cas 15.4 H, Plt Count 354, MPV 10.3, Immature Gran % (Auto) 0.900, Neut % (Auto) 84.5 H, Lymph % (Auto) 8.1 L, [place] % (Auto) 6.2, Eos % (Auto) 0.1, Baso % (Auto) 0.2, Absolute Neuts (auto) 16.1 H, Absolute Lymphs (auto) 1.53, Nucleated RBC % 0, Sodium 132 L, Potassium 4.2, Chloride 98, Carbon Dioxide 28.0, Anion Gap 6, BUN 25 H, Creatinine 0.64, Estim Creat Clear Calc 44.40, Est GFR (MDRD) Af Amer 113, Est GFR (MDRD) Non-Af 94, BUN/Creatinine Ratio 38.8 H, Glucose 122 H, Calcium 9.4, Total Bilirubin 1.10 H, AST 56 H, ALT 77 H, Alkaline Phosphatase 90, Total Protein 7.0, Albumin 3.1 L, Globulin 3.9, Albumin/Globulin Ratio 0.8 L 04/12/24 10:03: Urine Color Yellow, Urine Clarity Clear, Urine pH 7.0, Ur Specific [place] 1.010, Urine Protein 30 H, Urine Glucose (UA) Normal, Urine Ketones Negative, Urine Occult Blood 25 H, Urine Nitrite Negative, Urine Bilirubin Negative, Urine Urobilinogen Normal, Ur Leukocyte Esterase 25 H, Urine RBC 0 SEEN, Urine WBC 0-5 SEEN, Ur Squamous Epith Cells 0-5 SEEN, Urine Bacteria 0 SEEN, Urine Mucus 0 SEEN Imaging Radiology Impression Abdomen/Pelvis CT 04/12/24 08:59 IMPRESSION: Questionable extraluminal gas within the left side of the pelvis worrisome for bowel perforation. Clinical correlation and correlation with CT the abdomen and pelvis with oral and intravenous contrast would be useful. Left inguinal hernia with incarceration of small bowel but without bowel obstruction. No change in 7 cm left ovarian physiologic cyst, pars. Cyst versus adenoma. Electronically Signed: Moshe Alonso MD at 10:33 EDT , ADDENDUM: 04/12/24 1053 IMPRESSION: Questionable extraluminal gas within the left side of the pelvis worrisome for bowel perforation. Clinical correlation and correlation with CT the abdomen and pelvis with oral and intravenous contrast would be useful. Left inguinal hernia with incarceration of small bowel but without bowel obstruction. No change in 7 cm left ovarian physiologic cyst, pars. Cyst versus adenoma. N.B. : The above Results were Read Back by Moshe Alonso MD to Rick Peralta DO, and understanding confirmed on 04/12/2024 10:46:28 (ET). Electronically Signed: Moshe Alonso MD at 10:33 EDT ,
[2024-04-12] MEDS: Piperacil/Tazobactam 4.5 GM in 0.9% Normal Saline (100mL MB+) 100 ML IV (11:40)
--- NOTE | 2024-04-12 11:41 | PCM.HP.STD ---
HPI - General General Date of Admission: 04/12/24 Date of Service: 04/12/24 Chief Complaint: left lower quadrant pain HPI Narrative GEORGINA LEONARD, is a 83 F with a PMH as outlined who was admitted via the ED from her SNF on 04/12/2024 with a complaint of left lower abdominal pain which have been going on for several days prior to admission. She came in from her intermediate. The pain became worse tonight before admission and was persistent. She denied any diarrhea but admitted to nausea and also vomited x 1. She denied any fever. She had not had any prior abdominal surgeries. She was seen here recently by gastroenterology in December 2023 and had colonoscopy which showed diverticulosis in the entire examined colon and localized inflammation in the sigmoid colon and descending colon secondary to ischemic colitis. Vitals in the ED at time of review were blood pressure 106/56, pulse rate of 59, respiratory to 14 and oxygen saturation of 94% on room air. CBC showed Hb of 11.2, wbc of 19, platelets of 354. Chemistry showed sodium of 132, potassium of 4.2 and bicarb of 28. Cr is 0.64. Total bilirubin is 1.1 and AST/ALT are only slightly elevated. Urinalysis showed no evidence of UTI. Initial CT abdomen and pelvis done showed questionable extraluminal gas within the left side of the pelvis worrisome for bowel perforation. General surgery was consulted and reviewed patient. General surgery was reviewed imaging and did not think that there was any evidence of bowel perforation and so requested a repeat CT. Repeat CT did not show any evidence of the suspected extraluminal gas and showed some bowel thickening. She is therefore been admitted to hospitalist service to be managed for abdominal pain of unclear etiology. She was given a dose of IV Zosyn in the ED and will continue with this and general surgery and GI consulted. [facility] Medical History Acute lower gastrointestinal bleeding Hyponatremia History of echocardiogram Wears glasses Post-menopausal Anxiety Alcohol use History of steroid therapy Ambulates with cane Arthritis Back pain Migraine headache Constipation Former smoker Leg cramps History of pain when walking History of fracture of leg Hypertension Home Medications ?Medication ?Instructions ?Recorded ?Last Taken ?Type lisinopril 20 mg tablet 20 mg PO DAILY blood pressure 10/23/21 12/09/23 History acetaminophen 325 mg tablet 650 mg PO Q4H PRN Pain 09/20/22 09/29/22 History (Tylenol) calcium carbonate 600 mg-vitamin 1 tab PO DAILY supplement 09/20/22 12/09/23 History D3 5 mcg (200 unit) tablet lorazepam 0.5 mg tablet 0.5 mg PO QHS PRN Sleep 09/20/22 12/09/23 History propranolol 60 mg capsule,24 60 mg PO QHS tremor 12/10/23 12/08/23 History hr,extended release pantoprazole 40 mg tablet,delayed 40 mg PO DAILY #30 tabs 12/13/23 Unknown Rx release docusate sodium 100 mg capsule 100 mg PO BID PRN 03/07/24 Unknown History (Colace) enoxaparin 40 mg/0.4 mL 40 mg subcut DAILY 03/07/24 Unknown History subcutaneous syringe ferrous sulfate 325 mg (65 mg 325 mg PO BID 03/07/24 Unknown History iron) tablet (Feosol) oxycodone 5 mg capsule 5 mg PO Q4H PRN pain 03/07/24 Unknown History polyethylene glycol 3350 17 17 g PO DAILY PRN constipation 04/12/24 Unknown History gram/dose oral powder (ClearLax) sennosides 8.6 mg tablet 8.6 mg PO DAILY PRN constipation 04/12/24 Unknown History (Evac-U-Gen (sennosides)) Allergy/AdvReac Type Severity Reaction Status Date / Time venom-honey bee Allergy Hives Verified 04/12/24 09:25 venom-wasp Allergy Hives Verified 04/12/24 09:25 naproxen AdvReac Other Verified 04/12/24 09:25 prednisone AdvReac Other Verified 04/12/24 09:25 Family History no significant family his Surgical History H/O shoulder replacement Hx of right cataract extraction Hx of left cataract extraction Hx of colonoscopy Social History housing: house Smoking Status: Former smoker ROS Review of Systems ROS Unobtainable: Denies due to encephalopathy Constitutional Constitutional: Denies anorexia, chills, fatigue, fever(s), malaise or weakness Eyes Eyes: Denies change in vision ENT HEENT: Denies dysphagia, headache(s) or sore throat Cardiovascular Cardiovascular: Denies chest pain, dyspnea on exertion, edema, lightheadedness, orthopnea, palpitations, paroxysmal nocturnal dyspnea, rapid heart rate or syncope Respiratory/Chest Respiratory/Chest: Denies cough, dyspnea, productive cough, shortness of breath at rest or shortness of breath with exertion Gastrointestinal Gastrointestinal: Reports abdominal pain and constipation; Denies diarrhea, dyspepsia, melena, nausea or vomiting Genitourinary Genitourinary: Denies burning urination Musculoskeletal Musculoskeletal: Denies arthralgias or joint pain Neurologic Neurologic: Denies confusion, dizziness, focal weakness, headache(s), numbness or syncope Psychiatric Psychiatric: Denies anxiety or depression Endocrine Endocrinology: Denies change in body appearance Vital Signs Vital Signs Vital Signs: 04/12/24 08:52 04/12/24 10:52 Temperature 96.8 F L Temperature Source Temporal Pulse Rate 60 59 L Respiratory Rate 18 14 Blood Pressure 120/59 L 106/56 L Blood Pressure Mean 79 72 Pulse Ox 94 94 Oxygen Delivery Method Room Air Room Air Weight Weight: 112 lb 6.972 oz Body Mass Index (BMI) 19.3 Physical Exam Const alert, oriented x3 and no apparent distress General Appearance: cooperative HEENT normocephalic, head/scalp atraumatic, hearing grossly normal bilaterally, moist oral mucous membranes and oropharynx normal Mouth: oral and palatal mucosa normal Eyes PERRL, EOMs intact bilaterally and conjunctivae normal Neck no lymphadenopathy and supple Resp normal respiratory effort, no retractions, no use of accessory muscles and clear to auscultation bilaterally Cardio regular rate, regular rhythm, S1 normal heart sound, S2 normal heart sound and no murmurs GI normal to inspection, nondistended, normoactive bowel sounds GI Narrative: has moderate tenderness in right lower quadrant, with guarding but no rebound tenderness. has a reducible left inguinal hernia. She does appear to have a ? abdominal hernia in the left lower quadrant, where she has palpable tenderness Extremity normal to inspection, full ROM and no clubbing, cyanosis or edema Neuro oriented x3, CN's II-XII intact bilaterally, moves all extremities and no focal motor deficits Sensorium / Orientation: awake and alert Motor Exam: strength 5/5 throughout Psych affect normal Results Lab / Micro Data 04/12/24 09:08 04/12/24 09:08 Labs: Laboratory Results - last 24 hr 04/12/24 09:05: Lactic Acid 1.3 04/12/24 09:08: WBC 19.0 H, RBC 3.75 L, Hgb 11.2 L, Hct 34.5 L, MCV 92.0, MCH 29.9, MCHC 32.5, RDW Std Deviation 52.0 H, RDW Coeff of Cas 15.4 H, Plt Count 354, MPV 10.3, Immature Gran % (Auto) 0.900, Neut % (Auto) 84.5 H, Lymph % (Auto) 8.1 L, [place] % (Auto) 6.2, Eos % (Auto) 0.1, Baso % (Auto) 0.2, Absolute Neuts (auto) 16.1 H, Absolute Lymphs (auto) 1.53, Nucleated RBC % 0, Sodium 132 L, Potassium 4.2, Chloride 98, Carbon Dioxide 28.0, Anion Gap 6, BUN 25 H, Creatinine 0.64, Estim Creat Clear Calc 44.40, Est GFR (MDRD) Af Amer 113, Est GFR (MDRD) Non-Af 94, BUN/Creatinine Ratio 38.8 H, Glucose 122 H, Calcium 9.4, Total Bilirubin 1.10 H, AST 56 H, ALT 77 H, Alkaline Phosphatase 90, Total Protein 7.0, Albumin 3.1 L, Globulin 3.9, Albumin/Globulin Ratio 0.8 L 04/12/24 10:03: Urine Color Yellow, Urine Clarity Clear, Urine pH 7.0, Ur Specific [place] 1.010, Urine Protein 30 H, Urine Glucose (UA) Normal, Urine Ketones Negative, Urine Occult Blood 25 H, Urine Nitrite Negative, Urine Bilirubin Negative, Urine Urobilinogen Normal, Ur Leukocyte Esterase 25 H, Urine RBC 0 SEEN, Urine WBC 0-5 SEEN, Ur Squamous Epith Cells 0-5 SEEN, Urine Bacteria 0 SEEN, Urine Mucus 0 SEEN Imaging Radiology Impression Abdomen/Pelvis CT 04/12/24 08:59 IMPRESSION: Questionable extraluminal gas within the left side of the pelvis worrisome for bowel perforation. Clinical correlation and correlation with CT the abdomen and pelvis with oral and intravenous contrast would be useful. Left inguinal hernia with incarceration of small bowel but without bowel obstruction. No change in 7 cm left ovarian physiologic cyst, pars. Cyst versus adenoma. Electronically Signed: Moshe Alonso MD at 10:33 EDT , ADDENDUM: 04/12/24 1053 IMPRESSION: Questionable extraluminal gas within the left side of the pelvis worrisome for bowel perforation. Clinical correlation and correlation with CT the abdomen and pelvis with oral and intravenous contrast would be useful. Left inguinal hernia with incarceration of small bowel but without bowel obstruction. No change in 7 cm left ovarian physiologic cyst, pars. Cyst versus adenoma. N.B. : The above Results were Read Back by Moshe Alonso MD to Rick Peralta DO, and understanding confirmed on 04/12/2024 10:46:28 (ET). Electronically Signed: Moshe Alonso MD at 10:33 EDT , Assessment & Plan Assessment/Plan (1) Abdominal pain: (2) Leukocytosis: PLAN: Plan #Left lower quadrant pain of unclear etiology Admitted with a complaint of left lower quadrant pain that she had had for several days and had worsened. Initial CT of the abdomen and pelvis done was concerning for questionable bubbles of gas in the right side of the pelvis close the sigmoid colon which was not intraluminal and possibly consistent with perforation but there was no gross pneumoperitoneum throughout the abdomen and pelvis. It also showed a 6 cm left inguinal hernia with incarceration of a loop of small bowel without evidence of bowel obstruction and also showed no change in the 7 cm oval mass with water attenuation in the left side of the pelvis consistent with a physiologic cyst ovarian cyst or cystadenoma. General surgery reviewed her and did not think that she had any colon perforation and so repeat CT of the abdomen and pelvis was done with contrast which showed bilateral inguinal hernias containing small bowel loops more on the left than the right with no evidence of extraluminal air and persistent intramural edema of the lower descending colon but not the upper descending colon or splenic flexure. General surgery did see her and recommends keeping patient n.p.o. and hydrating with fluids. Will start on IV Zosyn due to the leukocytosis and abdominal pain. Patient also due to repeat abdominal imaging tomorrow and if abdomen is ceramic saw tender, that she may be a candidate for exploratory surgery. IV morphine as needed for pain. Gastroenterology also consulted per general surgery recommendation #Hypertension: On lisinopril and propranolol. IV hydralazine as needed #Bradycardia: Patient was noted to be bradycardic and she said she had been started on propranolol by her PCP for essential tremors. Will monitor bradycardia closely. If she becomes symptomatic, will DC propranolol. Propranolol is however currently on hold because she is NPO. #History of lower GI bleed due to ischemic colitis: Had colonoscopy back in December 2023 which showed evidence of ischemic colitis. Currently stable. #History of recent right hip arthroplasty: Currently stable. Had a right hip arthroplasty due to comminuted intertrochanteric fracture of the right femur. That was in February 2024. Currently stable. DVT prophylaxis: Lovenox CODE STATUS: Full code Patient counseled extensively about different types of CODE STATUS including full code, DNR CCA and DNR CCA. Patient elects to be full code. Total [id number] time 16 minutes. Charges/Coding Visit Charges Inpatient E&M: 47757 Init Hosp L3 Procedures Hospitalists Procedures: 28093 Advncd Care Plan 30 Min
--- NOTE | 2024-04-12 11:41 | NURSING ---
DR SUMAN CONKLIN
--- NOTE | 2024-04-12 11:57 | NURSING ---
MED SURG KORAM ABD PAIN, COLITIS, LEUKOCYTOSIS
[2024-04-12] MEDS: 0.9% Normal Saline (250mL Bag) 250 ML 15 ML IV (15:43)
[2024-04-12] MEDS: Piperacil/Tazobactam 3.375 GM in 0.9% Normal Saline (50mL MB+) 50 ML IV ×2 (17:22→23:11)
[2024-04-12] MEDS: Acetaminophen 325 MG Tablet 650 MG PO (17:33)
[2024-04-12] MEDS: LORazepam 0.5 MG Tablet PO (20:56)
[2024-04-13] MEDS: Acetaminophen 325 MG Tablet 650 MG PO ×2 (01:44→21:37)
[2024-04-13 01:54] VITALS: BP 109/55; PULSE 54; RESP 16; TEMP 36.6; O2SAT 95
[2024-04-13] MEDS: 0.9% Normal Saline (1000mL) 1,000 ML 125 ML IV (04:12)
[2024-04-13] MEDS: Piperacil/Tazobactam 3.375 GM in 0.9% Normal Saline (50mL MB+) 50 ML IV ×3 (04:33→21:15)
--- NOTE | 2024-04-13 05:55 | EKG12_ITS ---
Test Reason : PRE-OP Blood Pressure : / mmHG Vent. Rate : 052 BPM Atrial Rate : 052 BPM P-R Int : 156 ms QRS Dur : 094 ms QT Int : 470 ms P-R-T Axes : 053 -15 044 degrees QTc Int : 437 ms Sinus bradycardia with Premature atrial complexes Otherwise normal ECG Confirmed by AILEEN LYMAN, NILA ([id number]), web content editor ILZA BALDERAS ([id number]) on 04/16/2024 10:19:47 AM Referred By: POPPY Confirmed By:SHERICE GALLAGHER MD
--- NOTE | 2024-04-13 06:00 | CT_ITS ---
STUDY: CT ABDOMEN AND PELVIS WITH CONTRAST REASON FOR EXAM: Female, 83 years old. LLQ pain -- oral and rectal gastrograffin RADIATION DOSAGE (If Supplied By Facility): CTDIvol = ( 11.28 ) mGy, DLP = ( 425.17 ) mGycm TECHNIQUE: Oral and rectal Gastrografin contrast and 75mL Isovue-370 was administered. Transaxial images were obtained from the dome of the diaphragm to the symphysis pubis in the portal venous phase. Multiplanar coronal and sagittal images were reformatted. Individualized Dose Optimization Techniques Were Used For This CT. COMPARISON: Prior study dated: 04/12/2024 FINDINGS: LOWER CHEST: Bibasilar atelectasis. Enlarged heart. No pericardial effusion. LIVER: The liver is normal in size, shape, and attenuation. Hypoattenuating lesion in the right lobe again noted, unchanged. GALLBLADDER AND BILIARY TREE: The gallbladder is normally distended. No gallstones. No gallbladder wall thickening or edema. No pericholecystic fluid. No intra- or extrahepatic biliary ductal dilation. PANCREAS: No focal cystic or solid mass. SPLEEN: Normal size without focal cystic or solid mass. ADRENAL GLANDS: No nodules. KIDNEYS AND URETERS: Normal renal size and position. No hydronephrosis or nephrolithiasis. Bilateral renal excretion. PERITONEUM: Small amount of free fluid. No free air. No other fluid collection. BOWEL: The stomach is decompressed. Normal caliber small bowel. No obstruction. The oral contrast reaches the right hemicolon. There is no contrast seen at the distal transverse colon or descending colon. No significant contrast in the sigmoid. There is contrast in the rectum. Prominent stool in this region. Contrast does not appear to extend proximally. Persistent wall thickening with associated inflammation involving the distal descending colon, unchanged from recent prior imaging. Colonic diverticulosis present. No convincing evidence for perforation. Appendix not clearly seen. LYMPH NODES: No enlarged mesenteric or retroperitoneal lymph nodes. VESSELS: The aorta is normal in caliber with moderate atherosclerotic calcification. URINARY BLADDER: Partially distended and contrast-filled. REPRODUCTIVE ORGANS: Redemonstration of the probable left adnexal cyst measuring 7.3 cm. This is simple appearing. Similar appearance to prior imaging dating back to 12/10/2023. ABDOMINAL WALL: Small fat-containing right inguinal hernia. Left inguinal hernia containing bowel. This is nonobstructing. BONES: Scoliotic curvature of the spine with multilevel degenerative changes. Right total hip arthroplasty without evidence of failure. CT/Abdomen/Pelvis WITH Contrast IMPRESSION: Persistent wall thickening of the distal descending colon with adjacent inflammation, suggestive of colitis. There is diverticulosis present, but diverticulitis is less likely with this appearance. The oral contrast extends into the proximal colon. The rectal contrast remains in the rectum without more proximal extension. Contrast does not reach the area of inflammation. No convincing evidence for leak. Electronically Signed: Kendall Siddiqi MD at 8:04 EDT ,
[2024-04-13 06:47] LABS: Absolute Lymphocyte Count 0.87 X10^3/uL (0.83-4.51); Absolute Neutrophil Count 10.4 X10^3/uL (2.0-7.7); Basophil# 0.04 X10^3/uL; Basophil% 0.3 % (0-1); Eosinophil# 0.21 X10^3/uL; Eosinophils% 1.7 % (0-5); Hematocrit 28.7 % (37-47); Lymphocyte # 0.87 X10^3/ul (0.83-4.51); Lymphocyte % 7.2 % (19-41); Mean Corp Hgb Conc 31.4 g/dL (32-36); Mean Corpuscular Hgb 29.9 pg (27.0-32.0); Mean Corpuscular Volume 95.3 fL (81-99); Mean Platelet Vol. 9.9 fl (6.2-12.0); Monocyte# 0.48 X10^3/uL; NRBC Flagged by Analyzer 0 % (0-5); Neutrophil # 10.38 X10^3/uL (2.7-7.7); Neutrophil % 86.1 % (47-70); Platelet Count 252 K/mm3 (150-450); RBC Distribution Width CV 15.6 % (11.6-14.6); RBC Distribution Width SD 54.8 fl (35.1-43.9); Red Blood Count 3.01 M/mm3 (4.2-5.4); White Blood Count 12.1 K/mm3 (4.4-11.0)
--- NOTE | 2024-04-13 07:06 | PN.SURG_ITS ---
Subjective Subjective Patient reports she is still having left-sided abdominal pain. She thinks it is improved from yesterday. Objective Data Objective Data Vital Signs: Vital Signs Temp Pulse Resp BP Pulse Ox O2 Del Method 98 F 54 L 16 109/55 L 95 Room Air 04/13/24 01:54 04/13/24 01:54 04/13/24 01:54 04/13/24 01:54 04/13/24 01:54 04/13/24 01:54 Oxygen Delivery Method Room Air Weight: 112 lb 6.972 oz Body Mass Index (BMI) 19.3 Intake & Output: Intake and Output for Last 24 Hours 04/11/24 04/12/24 04/13/24 23:59 23:59 23:59 Intake Total 1229.25 / 1229.25 1310.91 / 1310.91 Balance 1229.25 / 1229.25 1310.91 / 1310.91 Lab / Micro Data 04/13/24 06:35 04/12/24 09:08 Labs: Laboratory Results - last 24 hr 04/12/24 09:05: Lactic Acid 1.3 04/12/24 09:08: WBC 19.0 H, RBC 3.75 L, Hgb 11.2 L, Hct 34.5 L, MCV 92.0, MCH 29.9, MCHC 32.5, RDW Std Deviation 52.0 H, RDW Coeff of Cas 15.4 H, Plt Count 354, MPV 10.3, Immature Gran % (Auto) 0.900, Neut % (Auto) 84.5 H, Lymph % (Auto) 8.1 L, [place] % (Auto) 6.2, Eos % (Auto) 0.1, Baso % (Auto) 0.2, Absolute Neuts (auto) 16.1 H, Absolute Lymphs (auto) 1.53, Nucleated RBC % 0, Sodium 132 L, Potassium 4.2, Chloride 98, Carbon Dioxide 28.0, Anion Gap 6, BUN 25 H, Creatinine 0.64, Estim Creat Clear Calc 44.40, Est GFR (MDRD) Af Amer 113, Est GFR (MDRD) Non-Af 94, BUN/Creatinine Ratio 38.8 H, Glucose 122 H, Calcium 9.4, T otal Bilirubin 1.10 H, AST 56 H, ALT 77 H, Alkaline Phosphatase 90, Total Protein 7.0, Albumin 3.1 L, Globulin 3.9, Albumin/Globulin Ratio 0.8 L 04/12/24 10:03: Urine Color Yellow, Urine Clarity Clear, Urine pH 7.0, Ur Specific [place] 1.010, Urine Protein 30 H, Urine Glucose (UA) Normal, Urine Ketones Negative, Urine Occult Blood 25 H, Urine Nitrite Negative, Urine Bilirubin Negative, Urine Urobilinogen Normal, Ur Leukocyte Esterase 25 H, Urine RBC 0 SEEN, Urine WBC 0-5 SEEN, Ur Squamous Epith Cells 0-5 SEEN, Urine Bacteria 0 SEEN, Urine Mucus 0 SEEN 04/13/24 06:35: WBC 12.1 H, RBC 3.01 L, Hgb 9.0 L, Hct 28.7 L, MCV 95.3, MCH 29.9, MCHC 31.4 L, RDW Std Deviation 54.8 H, RDW Coeff of Cas 15.6 H, Plt Count 252, MPV 9.9, Immature Gran % (Auto) 0.700, Neut % (Auto) 86.1 H, Lymph % (Auto) 7.2 L, [place] % (Auto) 4.0, Eos % (Auto) 1.7, Baso % (Auto) 0.3, Absolute Neuts (auto) 10.4 H, Absolute Lymphs (auto) 0.87, Nucleated RBC % 0 Radiography Diagnostic Testing: Radiology Impression Abdomen/Pelvis CT 04/12/24 08:59 IMPRESSION: Questionable extraluminal gas within the left side of the pelvis worrisome for bowel perforation. Clinical correlation and correlation with CT the abdomen and pelvis with oral and intravenous contrast would be useful. Left inguinal hernia with incarceration of small bowel but without bowel obstruction. No change in 7 cm left ovarian physiologic cyst, pars. Cyst versus adenoma. Electronically Signed: Moshe Alonso MD at 10:33 EDT , ADDENDUM: 04/12/24 8562 IMPRESSION: Questionable extraluminal gas within the left side of the pelvis worrisome for bowel perforation. Clinical correlation and correlation with CT the abdomen and pelvis with oral and intravenous contrast would be useful. Left inguinal hernia with incarceration of small bowel but without bowel obstruction. No change in 7 cm left ovarian physiologic cyst, pars. Cyst versus adenoma. N.B. : The above Results were Read Back by Moshe Alonso MD to Rick Peralta DO, and understanding confirmed on 04/12/2024 10:46:28 (ET). Electronically Signed: Moshe Alonso MD at 10:33 EDT , Abdomen/Pelvis CT 04/12/24 10:50 IMPRESSION: 1. Abnormal intradural edema in the lower descending colon without contrast enhancement is unchanged. This was not present on CT abdomen and pelvis of 01/24/2024 and CTA of the abdomen and pelvis of 12/10/2023. Exact etiology is uncertain at this time. There is high-grade stenosis of the GAVIN origin secondary to noncalcified plaque on the CTA but the SMA show no significant stenosis or occlusion on the CTA of 12/10/2023. Recent colonoscopy apparently suggested ischemic colitis. It is quite possible that the SMA did not provide adequate collateral circulation to the left lower descending colon.. Conventional abdominal aortogram to include the celiac artery, SMA and GAVIN may be helpful for further evaluation. 2. Collapsed small bowel accounted for questionable pneumoperitoneum in the left lower anterior pelvis. 3. 7.8 x 5.4 x 7.4 cm cyst in the left side of the lower pelvis is uncertain for ovarian cyst. This is causing displacement of the adjacent rectosigmoid colon. This is unchanged. 4. Bilateral inguinal hernias, left side containing more collapsed small bowel than the right. No suspicious small bowel strangulation, ischemia or infarction. 5. 1.2 cm low-attenuation lesion in segment 6 of the liver parenchyma. There was previous peripheral contrast enhancement on CTA raising the possibility of hemangioma but not conclusive. ACR White Paper guidelines (Radha et al. JACR 2017; 14(11):7375-8876.) suggest no follow-up is necessary. 6. Increased loss of the previously acute compression fracture of the upper L1 vertebral body height when compared to 01/24/2024. This fracture was not present on 12/10/2023. 7. Moderate levo rotary scoliosis of the lumbar spine and nearly grade 2 right lateral subluxation of L1 on L2 are unchanged. Electronically Signed: Glenn Aguilar MD at 11:55 EDT , Physical Exam Const oriented x3 and no apparent distress Resp normal respiratory effort GI soft to palpation Palpation: tender LLQ and LUQ Assessment & Plan Assessment/Plan (1) Abdominal pain: (2) Colitis: PLAN: Plan Patient is still having pain on the left side of her abdomen. Her white count did come down on antibiotics. Continue bowel rest with IV fluids. I have decreased her rate. Continue antibiotics. Awaiting radiologist interpretation of CT scan from this morning with rectal and oral contrast. Chuck Canales MD Pager: [facility] [address] [place] [address], [address] [place] [address] Office:
[2024-04-13 07:21] LABS: Anion Gap 8 (5-15); BUN 21 mg/dL (7-18); BUN/Creat Ratio 28.4 RATIO (10-20); Calcium,Total 8.8 mg/dL (8.5-10.1); Chloride 101 mmol/L (98-107); Creatinine, Serum 0.74 mg/dL (0.55-1.02); EST Glomerular Filtration Rate 80 mL/min (>60); Est Glom Filt Rate - Afr Amer 97 mL/min (>60); Glucose 90 mg/dL (74-106); Potassium 4.1 mmol/L (3.5-5.1); Sodium Level 132 mmol/L (136-145)
[2024-04-13 08:10] VITALS: BP 101/45; PULSE 54; RESP 16; TEMP 36.9; O2SAT 100
[2024-04-13] MEDS: Enoxaparin 40 MG/0.4 ML Syringe SC (08:16)
--- NOTE | 2024-04-13 12:43 | PN_ITS ---
Subjective Subjective Patient seen and examined. She had no active complaints. Abdominal pain had improved today. She is mildly bradycardic but is otherwise hemodynamically stable. Objective Data Objective Data Vital Signs: Vital Signs Temp Pulse Resp BP Pulse Ox O2 Del Method 98.5 F 54 L 16 101/45 L 100 Room Air 04/13/24 08:10 04/13/24 08:10 04/13/24 08:10 04/13/24 08:10 04/13/24 08:10 04/13/24 08:10 Oxygen Delivery Method Room Air Weight: 112 lb 6.972 oz Body Mass Index (BMI) 19.3 Intake & Output: Intake and Output for Last 24 Hours 04/11/24 04/12/24 04/13/24 23:59 23:59 23:59 Intake Total 1229.25 / 1229.25 1372.58 / 1372.58 Balance 1229.25 / 1229.25 1372.58 / 1372.58 Lab / Micro Data 04/13/24 06:35 04/13/24 06:35 Labs: Laboratory Results - last 24 hr 04/13/24 06:35: WBC 12.1 H, RBC 3.01 L, Hgb 9.0 L, Hct 28.7 L, MCV 95.3, MCH 29.9, MCHC 31.4 L, RDW Std Deviation 54.8 H, RDW Coeff of Cas 15.6 H, Plt Count 252, MPV 9.9, Immature Gran % (Auto) 0.700, Neut % (Auto) 86.1 H, Lymph % (Auto) 7.2 L, [place] % (Auto) 4.0, Eos % (Auto) 1.7, Baso % (Auto) 0.3, Absolute Neuts (auto) 10.4 H, Absolute Lymphs (auto) 0.87, Nucleated RBC % 0, Sodium 132 L, Potassium 4.1, Chloride 101, Carbon Dioxide 23.0, Anion Gap 8, BUN 21 H, Creatinine 0.74, Estim Creat Clear Calc 44.40, Est GFR (MDRD) Af Amer 97, Est GFR (MDRD) Non-Af 80, BUN/Creatinine Ratio 28.4 H, Glucose 90, Calcium 8.8 Radiography Diagnostic Testing: Radiology Impression Abdomen/Pelvis CT 04/13/24 06:00 IMPRESSION: Persistent wall thickening of the distal descending colon with adjacent inflammation, suggestive of colitis. There is diverticulosis present, but diverticulitis is less likely with this appearance. The oral contrast extends into the proximal colon. The rectal contrast remains in the rectum without more proximal extension. Contrast does not reach the area of inflammation. No convincing evidence for leak. Electronically Signed: Kendall Siddiqi MD at 8:04 EDT , Physical Exam Const alert, oriented x3 and no apparent distress General Appearance: cooperative HEENT normocephalic, head/scalp atraumatic, hearing grossly normal bilaterally, moist oral mucous membranes and oropharynx normal Eyes PERRL, EOMs intact bilaterally and conjunctivae normal Neck no lymphadenopathy and supple Lymph Lymphatic: no lymphadenopathy noted Resp normal respiratory effort, normal air movement, no retractions, no use of accessory muscles and clear to auscultation bilaterally Cardio regular rate, regular rhythm, S1 normal heart sound, S2 normal heart sound and no murmurs GI normal to inspection, nondistended, normoactive bowel sounds GI Narrative: still has moderate tenderness in right lower quadrant, with guarding but no rebound tenderness. has a reducible left inguinal hernia. She does have a ?abdominal hernia in the left lower quadrant, where she has palpable tenderness Extremity normal to inspection, full ROM and no clubbing, cyanosis or edema General Extremity: no tenderness to palpation of joints or extremities Skin General Skin Exam: no breakdown Neuro oriented x3, CN's II-XII intact bilaterally, moves all extremities, no focal motor deficits and no sensory deficits noted Sensorium / Orientation: awake and alert Motor Exam: strength 5/5 throughout and general weakness Psych thought process normal, cooperative and affect normal Appearance: appropriate Assessment & Plan Assessment/Plan (1) Abdominal pain: (2) Leukocytosis: PLAN: Plan #Left lower quadrant pain of unclear etiology * Admitted with a complaint of left lower quadrant pain that she had had for several days and had worsened. * Initial CT of the abdomen and pelvis done was concerning for questionable bubbles of gas in the right side of the pelvis close the sigmoid colon which was not intraluminal and possibly consistent with perforation but there was no gross pneumoperitoneum throughout the abdomen and pelvis. It also showed a 6 cm left inguinal hernia with incarceration of a loop of small bowel without evidence of bowel obstruction and also showed no change in the 7 cm oval mass with water attenuation in the left side of the pelvis consistent with a physiologic cyst ovarian cyst or cystadenoma. * General surgery reviewed her and did not think that she had any colon perforation and so repeat CT of the abdomen and pelvis was done with contrast which showed bilateral inguinal hernias containing small bowel loops more on the left than the right with no evidence of extraluminal air and persistent intramural edema of the lower descending colon but not the upper descending colon or splenic flexure. * repeat CT abdomen today showed persistent wall thickening of the distal descending colon with adjacent inflammation suggestive of colitis and dierticulosis, but diverticulitis less likely. * Per discussion with general surgery, will treat as colitis and continue with antibiotics and keeping patient n.p.o. and hydrated with fluids. * Continue IV morphine as needed for pain. Awaiting gastroenterology evaluation. * wbc today is down to 12.1 from 19 yesterday #Hypertension: On lisinopril and propranolol. IV hydralazine as needed #Bradycardia: * Patient was noted to be bradycardic and she said she had been started on propranolol by her PCP for essential tremors. * Will monitor bradycardia closely. * still mildly bradycardic. Propranolol on hold * Propranolol is however currently on hold because she is NPO. * #History of lower GI bleed due to ischemic colitis: Had colonoscopy back in December 2023 which showed evidence of ischemic colitis. Currently stable. #History of recent right hip arthroplasty * Currently stable. * Had a right hip arthroplasty due to comminuted intertrochanteric fracture of the right femur. That was in February 2024. Currently stable. DVT prophylaxis: Lovenox CODE STATUS: Full code * Charges/Coding Visit Charges Inpatient E&M: 20840 Subs Hosp L2
--- NOTE | 2024-04-13 13:42 | CASEMGMT ---
Discharge Planning Met with patient who wishes to return to [facility]. She had been there for a skilled stay with plans to return to the community after finishing rehab there. SW updated. Updates sent to [facility]. Requested wknd phone/fax. Jillian Henson DC Planning Asst.
[2024-04-13 14:10] VITALS: BP 113/48; PULSE 60; RESP 18; TEMP 37.2; O2SAT 98
[2024-04-13] MEDS: 0.9% Normal Saline (1000mL) 1,000 ML 80 ML IV (14:31)
--- NOTE | 2024-04-13 15:24 | CASEMGMT ---
Social Work [facility] is able to accept pt back when medically ready. Green sheet on chart to facilitate weekend discharge. Plan: Return to [facility], when medically ready ROSELYN Perera
--- NOTE | 2024-04-13 18:19 | CON.PCM.GI_ITS ---
HPI Consult Data Date of Consult: 04/13/24 HPI Narrative Reason for Consultation: Abdominal pain HPI Narrative: GEORGINA LEONARD, is a 83 F who presents via EMS from residential with complaint of abdominal pain that she has had for several days. Pain has been intermittent until last evening when he became more continuous at its worst pain last night 10 out of 10. Currently down to a 5 out of 10. She describes it is low in the left abdomen. Some discomfort into her back. Patient with nausea and vomited x 1. She has been afebrile. I saw her back in December for abdominal pain and lower GI bleeding. Prior to me seeing her back in December 2023 she was started on a beta-mitchell for a essential tremor. She underwent colonoscopy and was discovered to have left-sided ischemic colitis extending into the transverse colon. She also was discovered to have significant diverticular disease. I was called back to see her for evaluation of worsening abdominal pain. She underwent CT scan of the abdomen pelvis which displayed on 04/10/2024 Normal visualized stomach. Normal small intestine. There are several bubbles of gas within the right side of the pelvis in close proximity to the sigmoid colon on image 70 which are not clearly intraluminal and possibly consistent with perforation. However, there is no gross pneumoperitoneum throughout the abdomen or pelvis. She underwent a repeat CTA of the abdomen pelvis that displayed 04/12/2024 Abnormal intradural edema in the lower descending colon without contrast enhancement is unchanged. This was not present on CT abdomen and pelvis of 01/24/2024 and CTA of the abdomen and pelvis of 12/10/2023. Exact etiology is uncertain at this time. There is high-grade stenosis of the GAVIN origin secondary to noncalcified plaque on the CTA but the SMA show no significant stenosis or occlusion on the CTA of 12/10/2023. Recent colonoscopy apparently suggested ischemic colitis. It is quite possible that the SMA did not provide adequate collateral circulation to the left lower descending colon.. Conventional abdominal aortogram to include the celiac artery, SMA and GAVIN may be helpful for further evaluation. She underwent repeat CT scan of the abdomen pelvis today on 04/13/2024 The stomach is decompressed. Normal caliber small bowel. No obstruction. The oral contrast reaches the right hemicolon. There is no contrast seen at the distal transverse colon or descending colon. No significant contrast in the sigmoid. There is contrast in the rectum. Prominent stool in this region. Contrast does not appear to extend proximally. Persistent wall thickening with associated inflammation involving the distal descending colon, unchanged from recent prior imaging. Colonic diverticulosis present. No convincing evidence for perforation. Appendix not clearly seen. At this time her abdominal pain he is pretty well-controlled. She says that she is having hard stool and it is somewhat difficult to go to the bathroom. [facility] Medical History Acute lower gastrointestinal bleeding Hyponatremia History of echocardiogram Wears glasses Post-menopausal Anxiety Alcohol use History of steroid therapy Ambulates with cane Arthritis Back pain Migraine headache Constipation Former smoker Leg cramps History of pain when walking History of fracture of leg Hypertension Home Medications ?Medication ?Instructions ?Recorded ?Last Taken ?Type lisinopril 20 mg tablet 20 mg PO DAILY blood pressure 10/23/21 12/09/23 History acetaminophen 325 mg tablet 650 mg PO Q4H PRN Pain 09/20/22 09/29/22 History (Tylenol) calcium carbonate 600 mg-vitamin 1 tab PO DAILY supplement 09/20/22 12/09/23 History D3 5 mcg (200 unit) tablet lorazepam 0.5 mg tablet 0.5 mg PO QHS PRN Sleep 09/20/22 12/09/23 History propranolol 60 mg capsule,24 60 mg PO QHS tremor 12/10/23 12/08/23 History hr,extended release pantoprazole 40 mg tablet,delayed 40 mg PO DAILY #30 tabs 12/13/23 Unknown Rx release docusate sodium 100 mg capsule 100 mg PO BID PRN 03/07/24 Unknown History (Colace) enoxaparin 40 mg/0.4 mL 40 mg subcut DAILY 03/07/24 Unknown History subcutaneous syringe ferrous sulfate 325 mg (65 mg 325 mg PO BID 03/07/24 Unknown History iron) tablet (Feosol) oxycodone 5 mg capsule 5 mg PO Q4H PRN pain 03/07/24 Unknown History polyethylene glycol 3350 17 17 g PO DAILY PRN constipation 04/12/24 Unknown History gram/dose oral powder (ClearLax) sennosides 8.6 mg tablet 8.6 mg PO DAILY PRN constipation 04/12/24 Unknown History (Evac-U-Gen (sennosides)) Allergy/AdvReac Type Severity Reaction Status Date / Time venom-honey bee Allergy Hives Verified 04/12/24 09:25 venom-wasp Allergy Hives Verified 04/12/24 09:25 naproxen AdvReac Other Verified 04/12/24 09:25 prednisone AdvReac Other Verified 04/12/24 09:25 Family History no significant family his Surgical History H/O shoulder replacement Hx of right cataract extraction Hx of left cataract extraction Hx of colonoscopy Social History housing: house Smoking Status: Former smoker ROS Review of Systems ROS Unobtainable: Denies due to encephalopathy Constitutional Constitutional: Denies anorexia, chills, fatigue, fever(s), malaise or weakness Eyes Eyes: Denies change in vision ENT HEENT: Denies dysphagia, headache(s) or sore throat Cardiovascular Cardiovascular: Denies chest pain, dyspnea on exertion, edema, lightheadedness, orthopnea, palpitations, paroxysmal nocturnal dyspnea, rapid heart rate or syncope Respiratory/Chest Respiratory/Chest: Denies cough, dyspnea, productive cough, shortness of breath at rest or shortness of breath with exertion Gastrointestinal Gastrointestinal: Reports abdominal pain and constipation; Denies diarrhea, dyspepsia, melena, nausea or vomiting Genitourinary Genitourinary: Denies burning urination Musculoskeletal Musculoskeletal: Denies arthralgias or joint pain Neurologic Neurologic: Denies confusion, dizziness, focal weakness, headache(s), numbness or syncope Psychiatric Psychiatric: Denies anxiety or depression Endocrine Endocrinology: Denies change in body appearance Physical Exam Const alert, oriented x3 and no apparent distress General Appearance: cooperative HEENT normocephalic, head/scalp atraumatic, hearing grossly normal bilaterally, moist oral mucous membranes and oropharynx normal Eyes PERRL, EOMs intact bilaterally and conjunctivae normal Neck no lymphadenopathy and supple Lymph Lymphatic: no lymphadenopathy noted Resp normal respiratory effort, normal air movement, no retractions, no use of accessory muscles and clear to auscultation bilaterally Cardio regular rate, regular rhythm, S1 normal heart sound, S2 normal heart sound and no murmurs GI normal to inspection, nondistended, normoactive bowel sounds GI Narrative: still has moderate tenderness in right lower quadrant, with guarding but no rebound tenderness. has a reducible left inguinal hernia. She does have a ?abdominal hernia in the left lower quadrant, where she has palpable tenderness Extremity normal to inspection, full ROM and no clubbing, cyanosis or edema General Extremity: no tenderness to palpation of joints or extremities Skin General Skin Exam: no breakdown Neuro oriented x3, CN's II-XII intact bilaterally, moves all extremities, no focal motor deficits and no sensory deficits noted Sensorium / Orientation: awake and alert Motor Exam: strength 5/5 throughout and general weakness Psych thought process normal, cooperative and affect normal Appearance: appropriate Lab / Micro Data 04/13/24 06:35 04/13/24 06:35 Labs: Laboratory Results - last 24 hr 04/13/24 06:35: WBC 12.1 H, RBC 3.01 L, Hgb 9.0 L, Hct 28.7 L, MCV 95.3, MCH 29.9, MCHC 31.4 L, RDW Std Deviation 54.8 H, RDW Coeff of Cas 15.6 H, Plt Count 252, MPV 9.9, Immature Gran % (Auto) 0.700, Neut % (Auto) 86.1 H, Lymph % (Auto) 7.2 L, [place] % (Auto) 4.0, Eos % (Auto) 1.7, Baso % (Auto) 0.3, Absolute Neuts (auto) 10.4 H, Absolute Lymphs (auto) 0.87, Nucleated RBC % 0, Sodium 132 L, Potassium 4.1, Chloride 101, Carbon Dioxide 23.0, Anion Gap 8, BUN 21 H, Creatinine 0.74, Estim Creat Clear Calc 44.40, Est GFR (MDRD) Af Amer 97, Est GFR (MDRD) Non-Af 80, BUN/Creatinine Ratio 28.4 H, Glucose 90, Calcium 8.8 Imaging Radiology Impression Abdomen/Pelvis CT 04/13/24 06:00 IMPRESSION: Persistent wall thickening of the distal descending colon with adjacent inflammation, suggestive of colitis. There is diverticulosis present, but diverticulitis is less likely with this appearance. The oral contrast extends into the proximal colon. The rectal contrast remains in the rectum without more proximal extension. Contrast does not reach the area of inflammation. No convincing evidence for leak. Electronically Signed: Kendall Siddiqi MD at 8:04 EDT , Assessment & Plan Assessment/Plan (1) Ischemic colitis: PLAN: 83-year-old with abdominal pain and discovered to have recurrent ischemic colitis. * Ischemic colitis is common. However acute recurrent ischemic colitis is not that common. In this case it is, associated with a high mortality rate. Fortunately there was no sign of perforation on her images so she does not need surgical intervention at this time. Her white blood cell count is decreasing appropriately with antibiotics. This is a very good sign., especially in cases where surgical intervention is required. * CT with intravenous contrast is the imaging modality of choice and should be followed by lower gastrointestinal endoscopy, aiming to reach the distal-most extent of the disease to achieve an endoscopic (and histological) diagnosis. She already has a histologic diagnosis I do not think she needs another colonoscopy at this time. * Isolated right colonic involvement is predictive of poorer outcomes, including higher rates of surgical intervention and . It seems of most of her ischemic colitis is a distribution of the inferior mesenteric artery and by her imaging there is possibly some abnormalities of the inferior mesenteric arteryresulting in recurrent ischemic colitis. * I would recommend evaluation by vascular surgery to cover all bases and continue antibiotic therapy. She is already on Colace and senna. Continue aggressive bowel regimen to keep his stool soft as possible. High-quality supportive/conservative treatment remains the backbone of medical therapy. * She is on anticoagulation which should be continued. * I would get a cardiac echocardiogram. * Secondary prevention with antiplatelets and anticoagulants should be considered. Aspirin is appropriate if she has ischemic heart disease. Clopidogrel should be considered for patients with peripheral vascular disease or previous cerebrovascular disease. Charges/Coding Visit Charges Inpatient E&M: 48516 Init Hosp L3
[2024-04-13 21:18] VITALS: BP 100/59; PULSE 60; RESP 16; TEMP 36.8; O2SAT 95
[2024-04-14] VITALS (9 sets, daily range): BP systolic 107–146; BP diastolic 54–65; PULSE 54–64; RESP 16; TEMP 36.4–36.7; O2SAT 94–98
[2024-04-14] MEDS: 0.9% Normal Saline (1000mL) 1,000 ML 80 ML IV ×2 (03:10→14:58)
[2024-04-14] MEDS: Piperacil/Tazobactam 3.375 GM in 0.9% Normal Saline (50mL MB+) 50 ML IV ×3 (05:12→21:10)
[2024-04-14 07:05] LABS: Absolute Lymphocyte Count 0.76 X10^3/uL (0.83-4.51); Absolute Neutrophil Count 6.1 X10^3/uL (2.0-7.7); Basophil# 0.03 X10^3/uL; Basophil% 0.4 % (0-1); Eosinophil# 0.42 X10^3/uL; Eosinophils% 5.4 % (0-5); Hematocrit 27.8 % (37-47); Hemoglobin 8.7 g/dL (12.0-15.0); Lymphocyte # 0.76 X10^3/ul (0.83-4.51); Lymphocyte % 9.8 % (19-41); Mean Corp Hgb Conc 31.3 g/dL (32-36); Mean Corpuscular Hgb 29.8 pg (27.0-32.0); Mean Corpuscular Volume 95.2 fL (81-99); Monocyte# 0.47 X10^3/uL; NRBC Flagged by Analyzer 0 % (0-5); Neutrophil # 6.06 X10^3/uL (2.7-7.7); Neutrophil % 77.9 % (47-70); Platelet Count 264 K/mm3 (150-450); RBC Distribution Width CV 15.5 % (11.6-14.6); RBC Distribution Width SD 54.3 fl (35.1-43.9); Red Blood Count 2.92 M/mm3 (4.2-5.4); White Blood Count 7.8 K/mm3 (4.4-11.0)
[2024-04-14 07:27] LABS: Anion Gap 11 (5-15); BUN 19 mg/dL (7-18); BUN/Creat Ratio 40.5 RATIO (10-20); Calcium,Total 8.5 mg/dL (8.5-10.1); Chloride 111 mmol/L (98-107); Creatinine, Serum 0.47 mg/dL (0.55-1.02); EST Glomerular Filtration Rate 135 mL/min (>60); Est Glom Filt Rate - Afr Amer 164 mL/min (>60); Glucose 50 mg/dL (74-106); Potassium 3.7 mmol/L (3.5-5.1); Sodium Level 140 mmol/L (136-145)
--- NOTE | 2024-04-14 07:50 | PN.SURG_ITS ---
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 She reports passing flatus. Objective Data Objective Data Vital Signs: Vital Signs Temp Pulse Resp BP Pulse Ox O2 Del Method 97.9 F 58 L 16 107/54 L 94 Room Air 04/14/24 03:17 04/14/24 03:17 04/14/24 03:17 04/14/24 03:17 04/14/24 03:17 04/14/24 03:17 Oxygen Delivery Method Room Air Weight: 112 lb 6.972 oz Body Mass Index (BMI) 19.3 Intake & Output: Intake and Output for Last 24 Hours 04/12/24 04/13/24 04/14/24 23:59 23:59 23:59 Intake Total 1229.25 / 1229.25 2245.83 / 2245.83 1100 / 1100 Output Total 200 / 200 Balance 1229.25 / 1229.25 2045.83 / 2045.83 1100 / 1100 Lab / Micro Data 04/14/24 06:47 04/14/24 06:47 Labs: Laboratory Results - last 24 hr 04/14/24 06:47: WBC 7.8, RBC 2.92 L, Hgb 8.7 L, Hct 27.8 L, MCV 95.2, MCH 29.8, MCHC 31.3 L, RDW Std Deviation 54.3 H, RDW Coeff of Cas 15.5 H, Plt Count 264, MPV 10.0, Immature Gran % (Auto) 0.500, Neut % (Auto) 77.9 H, Lymph % (Auto) 9.8 L, [place] % (Auto) 6.0, Eos % (Auto) 5.4 H, Baso % (Auto) 0.4, Absolute Neuts (auto) 6.1, Absolute Lymphs (auto) 0.76 L, Nucleated RBC % 0, Sodium 140, Potassium 3.7, Chloride 111 H, Carbon Dioxide 18.0 L, Anion Gap 11, BUN 19 H, C reatinine 0.47 L, Estim Creat Clear Calc 44.40, Est GFR (MDRD) Af Amer 164, Est GFR (MDRD) Non-Af 135, BUN/Creatinine Ratio 40.5 H, Glucose 50 L, Calcium 8.5 Radiography Diagnostic Testing: Radiology Impression Abdomen/Pelvis CT 04/13/24 06:00 IMPRESSION: Persistent wall thickening of the distal descending colon with adjacent inflammation, suggestive of colitis. There is diverticulosis present, but diverticulitis is less likely with this appearance. The oral contrast extends into the proximal colon. The rectal contrast remains in the rectum without more proximal extension. Contrast does not reach the area of inflammation. No convincing evidence for leak. Electronically Signed: Kendall Siddiqi MD at 8:04 EDT , Physical Exam Const oriented x3 and no apparent distress Resp normal respiratory effort GI soft to palpation Palpation: tender LUQ Assessment & Plan Assessment/Plan (1) Ischemic colitis: PLAN: I read and appreciate Dr. Veloz's input. The radiologist did discuss atherosclerotic plaque at the origin of the GAVIN and SMA. The patient likely needs arteriogram and stenting of the GAVIN which cannot be done at this institution. She likely needs nonurgent transfer to a larger center for arteriogram and stenting of the GAVIN or SMA to resolve the ischemic colitis. I will start her on clears for now as she says her pain is improved but if her pain worsen she should go back to n.p.o. Chuck Canales MD Pager: [facility] [address] [place] [address], [address] [place] [phone] Office:
[2024-04-14] MEDS: Enoxaparin 40 MG/0.4 ML Syringe SC (08:34)
--- NOTE | 2024-04-14 10:34 | PN_ITS ---
Subjective Subjective Patient seen and examined. She had been started on a clear liquid diet. She was tolerating it and denied any pain though she did have some tenderness when her belly was pressed. Review of systems is otherwise negative. Objective Data Objective Data Vital Signs: Vital Signs Temp Pulse Resp BP Pulse Ox O2 Del Method 97.5 F L 58 L 16 115/63 96 Room Air 04/14/24 08:44 04/14/24 09:09 04/14/24 08:44 04/14/24 08:44 04/14/24 08:44 04/14/24 08:44 Oxygen Delivery Method Room Air Weight: 112 lb 6.972 oz Body Mass Index (BMI) 19.3 Intake & Output: Intake and Output for Last 24 Hours 04/12/24 04/13/24 04/14/24 23:59 23:59 23:59 Intake Total 1229.25 / 1229.25 2245.83 / 2245.83 1150 / 1150 Output Total 200 / 200 Balance 1229.25 / 1229.25 2045.83 / 2045.83 1150 / 1150 Lab / Micro Data 04/14/24 06:47 04/14/24 06:47 Labs: Laboratory Results - last 24 hr 04/14/24 06:47: WBC 7.8, RBC 2.92 L, Hgb 8.7 L, Hct 27.8 L, MCV 95.2, MCH 29.8, MCHC 31.3 L, RDW Std Deviation 54.3 H, RDW Coeff of Cas 15.5 H, Plt Count 264, MPV 10.0, Immature Gran % (Auto) 0.500, Neut % (Auto) 77.9 H, Lymph % (Auto) 9.8 L, [place] % (Auto) 6.0, Eos % (Auto) 5.4 H, Baso % (Auto) 0.4, Absolute Neuts (auto) 6.1, Absolute Lymphs (auto) 0.76 L, Nucleated RBC % 0, Sodium 140, Potassium 3.7, Chloride 111 H, Carbon Dioxide 18.0 L, Anion Gap 11, BUN 19 H, C reatinine 0.47 L, Estim Creat Clear Calc 44.40, Est GFR (MDRD) Af Amer 164, Est GFR (MDRD) Non-Af 135, BUN/Creatinine Ratio 40.5 H, Glucose 50 L, Calcium 8.5 Physical Exam Const alert, oriented x3 and no apparent distress General Appearance: cooperative and well developed HEENT normocephalic, head/scalp atraumatic, hearing grossly normal bilaterally, moist oral mucous membranes and oropharynx normal Eyes PERRL, EOMs intact bilaterally and conjunctivae normal Neck no lymphadenopathy and supple Lymph Lymphatic: no lymphadenopathy noted Resp normal respiratory effort, normal air movement, no retractions, no use of accessory muscles and clear to auscultation bilaterally Cardio regular rate, regular rhythm, S1 normal heart sound, S2 normal heart sound and no murmurs GI normal to inspection, nondistended, normoactive bowel sounds GI Narrative: has only mild tenderness in right lower quadrant, with no guarding but no rebound tenderness. has a reducible left inguinal hernia. She does have a abdominal hernia in the left lower quadrant, where she has palpable tenderness Extremity normal to inspection, full ROM, normal capillary refill and no clubbing, cyanosis or edema General Extremity: no tenderness to palpation of joints or extremities Skin General Skin Exam: no breakdown Neuro oriented x3, CN's II-XII intact bilaterally, moves all extremities, no focal motor deficits and no sensory deficits noted Sensorium / Orientation: awake and alert Motor Exam: strength 5/5 throughout and general weakness Psych thought process normal, cooperative and affect normal Appearance: appropriate Assessment & Plan Assessment/Plan (1) Abdominal pain: (2) Leukocytosis: PLAN: Plan #Left lower quadrant pain * thought to be due to ischemic colitis. * Admitted with a complaint of left lower quadrant pain that she had had for several days and had worsened. * Initial CT of the abdomen and pelvis done was concerning for questionable bubbles of gas in the right side of the pelvis close the sigmoid colon which was not intraluminal and possibly consistent with perforation but there was no gross pneumoperitoneum throughout the abdomen and pelvis. It also showed a 6 cm left inguinal hernia with incarceration of a loop of small bowel without evidence of bowel obstruction and also showed no change in the 7 cm oval mass with water attenuation in the left side of the pelvis consistent with a physiologic cyst ovarian cyst or cystadenoma. * General surgery reviewed her and did not think that she had any colon perforation and so repeat CT of the abdomen and pelvis was done with contrast which showed bilateral inguinal hernias containing small bowel loops more on the left than the right with no evidence of extraluminal air and persistent intramural edema of the lower descending colon but not the upper descending colon or splenic flexure. * repeat CT abdomen today showed persistent wall thickening of the distal descending colon with adjacent inflammation suggestive of colitis and diverticulosis, but diverticulitis less likely. There was also high-grade stenosis of the GAVIN origin secondary to noncalcified plaque on the CTA but SMA showed no significant stenosis or occlusion on the CT of 12/10/2023. * Gastroenterology and general surgery on board. Remains on IV morphine and IV Zosyn. * Vascular surgery consulted for evaluation for the possible SMA stenosis. I did speak to Dr. Crook about the imaging findings and he said the inferior mesenteric artery is usually not stented. He will come and evaluate the patient to see if she is a candidate for the SMA stenting. * Currently on clear liquids. Will continue with this and await vascular surgery evaluation. * Continue IV morphine for pain. * Per discussion with general surgery, will treat as colitis and continue with antibiotics and keeping patient n.p.o. and hydrated with fluids. * Continue IV morphine as needed for pain. Awaiting gastroenterology evaluation. * wbc today is down to 7.8 from 19 on admission #Hypertension: On lisinopril and propranolol. IV hydralazine as needed #Bradycardia: * Patient was noted to be bradycardic and she said she had been started on propranolol by her PCP for essential tremors. * Will monitor bradycardia closely. still mildly bradycardic. will continue holding propranolol * * #History of lower GI bleed due to ischemic colitis: Had colonoscopy back in December 2023 which showed evidence of ischemic colitis. Currently stable. #History of recent right hip arthroplasty * Currently stable. * Had a right hip arthroplasty due to comminuted intertrochanteric fracture of the right femur. That was in February 2024. Currently stable. DVT prophylaxis: Lovenox CODE STATUS: Full code * Charges/Coding Visit Charges Inpatient E&M: 74100 Subs Hosp L2
--- NOTE | 2024-04-14 17:56 | CON.PCM.SX_ITS ---
Assessment & Plan Assessment/Plan (1) Ischemic colitis: PLAN: -CT images reviewed :celiac patent with minimal plaque, 31% stenosis :SMA patent with minimal plaque, 40% stenosis :GAVIN patent with 48% stenosis, small caliber vessel with maximum diameter 3.1mm -not much evidence to support intervention in GAVIN even with severe stenosis; mostly case reports or short case series and in setting of totally occluded celiac/SMA in patient not candidate for open revasc of those vessels -also given caliber of vessel <4mm typically visceral stenting not recommended due to acute stent thrombosis risk -recommend medical tx with fluid, atbx; would minimize fluid restriction after discharge -also may be worth considered stopping longterm metoprolol HPI Consult Data Date of Consult: 04/14/24 HPI Narrative HPI Narrative: GEORGINA LEONARD, is a 83 F who presents with 3 days of LLQ abdominal pain, no diarrhea/melena/hematochezia. CT scans revealed colitis of descending colon consistent with ischemic nature. She did not have any loose stools until after arrival/enema as part of evaluation. She did have episode of ischemic colitis in 12/2023 that presented as painless hematochezia; colonoscopy revealed acute colitis. Otherwise no prior episodes. She denies post prandial pain/bloating or diarrhea, no food fear or weight loss. She is currently in SNF rehabilitating from right hip replacement for fracture. She states they have had her on some fluid restriction due to low sodium. She also states that they have noted low HR and BP while there; she takes metoprolol for essential tremor that was initiated about 6 months ago. [facility] Medical History Acute lower gastrointestinal bleeding Hyponatremia History of echocardiogram Wears glasses Post-menopausal Anxiety Alcohol use History of steroid therapy Ambulates with cane Arthritis Back pain Migraine headache Constipation Former smoker Leg cramps History of pain when walking History of fracture of leg Hypertension Home Medications ?Medication ?Instructions ?Recorded ?Last Taken ?Type lisinopril 20 mg tablet 20 mg PO DAILY blood pressure 10/23/21 12/09/23 History acetaminophen 325 mg tablet 650 mg PO Q4H PRN Pain 09/20/22 09/29/22 History (Tylenol) calcium carbonate 600 mg-vitamin 1 tab PO DAILY supplement 09/20/22 12/09/23 History D3 5 mcg (200 unit) tablet lorazepam 0.5 mg tablet 0.5 mg PO QHS PRN Sleep 09/20/22 12/09/23 History propranolol 60 mg capsule,24 60 mg PO QHS tremor 12/10/23 12/08/23 History hr,extended release pantoprazole 40 mg tablet,delayed 40 mg PO DAILY #30 tabs 12/13/23 Unknown Rx release docusate sodium 100 mg capsule 100 mg PO BID PRN 03/07/24 Unknown History (Colace) enoxaparin 40 mg/0.4 mL 40 mg subcut DAILY 03/07/24 Unknown History subcutaneous syringe ferrous sulfate 325 mg (65 mg 325 mg PO BID 03/07/24 Unknown History iron) tablet (Feosol) oxycodone 5 mg capsule 5 mg PO Q4H PRN pain 03/07/24 Unknown History polyethylene glycol 3350 17 17 g PO DAILY PRN constipation 04/12/24 Unknown History gram/dose oral powder (ClearLax) sennosides 8.6 mg tablet 8.6 mg PO DAILY PRN constipation 04/12/24 Unknown History (Evac-U-Gen (sennosides)) Allergy/AdvReac Type Severity Reaction Status Date / Time venom-honey bee Allergy Hives Verified 04/12/24 09:25 venom-wasp Allergy Hives Verified 04/12/24 09:25 naproxen AdvReac Other Verified 04/12/24 09:25 prednisone AdvReac Other Verified 04/12/24 09:25 Family History no significant family his Surgical History H/O shoulder replacement Hx of right cataract extraction Hx of left cataract extraction Hx of colonoscopy Social History housing: house Smoking Status: Former smoker ROS Constitutional Constitutional: Reports frequent falls; Denies chills, fever(s), lethargy or weakness Eyes Eyes: Denies blind spots, change in vision or loss of vision ENT HEENT: Denies bleeding gums, hoarseness or sore throat Cardiovascular Cardiovascular: Reports abdominal pain; Denies bluish discoloration of hand/feet, chest pain with activity, claudication, cold extremities, cyanosis, dyspnea on exertion, erythema on extremities, irregular heart rhythm, leg edema, leg ulcers, numbness in extremities or weakness in extremities Respiratory/Chest Respiratory/Chest: Denies cough, excessive phlegm production, shortness of breath at rest, shortness of breath with exertion or wheezing Gastrointestinal Gastrointestinal: Reports constipation; Denies anorexia, change in stool character, diarrhea, melena or rectal bleeding Genitourinary Genitourinary: Denies dysuria or hematuria Musculoskeletal Musculoskeletal: Reports abnormal gait Integumentary Integumentary: Denies erythema or non-healing lesions Neurologic Neurologic: Denies abnormal speech, focal weakness, headache(s), loss of vision, numbness, paresthesias or sensory deficit Hematologic/Lymphatic Hematologic/Lymphatic: Denies easy bleeding, easy bruising or lymphadenopathy Physical Exam Const alert, oriented x3, no apparent distress and healthy appearing General Appearance: cooperative; Negative for combative or lethargic Orientation / Consciousness: awake Exam Limitations: no limitations HEENT Head and Scalp: normocephalic and atraumatic Eyes EOMs intact bilaterally General Eye: normal appearance of both eyes Neck full ROM, no lymphadenopathy and thyroid normal General: trachea midline; Negative for lymphadenopathy or tenderness Thyroid: thyroid normal Resp normal respiratory effort and no use of accessory muscles Effort and Inspection: Negative for labored, stridor or audible wheezes Cardio regular rate and regular rhythm Peripheral Pulses: brachial pulses present, radial pulses present, femoral pulses present, popliteal pulses present, posterior tibial pulses present and dorsalis pedis pulses present Back/Spine Cervical Spine: cervical ROM normal Extremity full ROM, normal capillary refill and no clubbing, cyanosis or edema Skin no rashes or lesions noted and no wounds Neuro oriented x3, CN's II-XII intact bilaterally, no focal motor deficits and no sensory deficits noted Psych thought process normal, cooperative, affect normal, speech normal and activity/motor behavior normal Lab / Micro Data 04/14/24 06:47 04/14/24 06:47 Labs: Laboratory Results - last 24 hr 08 06:47: WBC 7.8, RBC 2.92 L, Hgb 8.7 L, Hct 27.8 L, MCV 95.2, MCH 29.8, MCHC 31.3 L, RDW Std Deviation 54.3 H, RDW Coeff of Cas 15.5 H, Plt Count 264, MPV 10.0, Immature Gran % (Auto) 0.500, Neut % (Auto) 77.9 H, Lymph % (Auto) 9.8 L, [place] % (Auto) 6.0, Eos % (Auto) 5.4 H, Baso % (Auto) 0.4, Absolute Neuts (auto) 6.1, Absolute Lymphs (auto) 0.76 L, Nucleated RBC % 0, Sodium 140, Potassium 3.7, Chloride 111 H, Carbon Dioxide 18.0 L, Anion Gap 11, BUN 19 H, C reatinine 0.47 L, Estim Creat Clear Calc 44.40, Est GFR (MDRD) Af Amer 164, Est GFR (MDRD) Non-Af 135, BUN/Creatinine Ratio 40.5 H, Glucose 50 L, Calcium 8.5 Charges/Coding Visit Charges Inpatient E&M: 13905 Init Hosp L3
[2024-04-14] MEDS: Morphine 2 MG/ML Syringe IV (20:24)
--- NOTE | 2024-04-14 21:22 | EX.PCM.PN.GI ---
Subjective Subjective Patient did not have a lot of bit of pain point introducing clears. She's not at a bowel moment. She does complain of some gas, but it is not significant. She does complain to some bloating also. Objective Data Objective Data Vital Signs: Vital Signs Temp Pulse Resp BP Pulse Ox O2 Del Method 98.1 F 54 L 16 132/64 H 97 Room Air 04/14/24 20:12 04/14/24 20:14 04/14/24 20:12 04/14/24 20:12 04/14/24 20:12 04/14/24 20:12 Oxygen Delivery Method Room Air Weight: 112 lb 6.972 oz Body Mass Index (BMI) 19.3 Intake & Output: Intake and Output for Last 24 Hours 04/12/24 04/13/24 04/14/24 23:59 23:59 23:59 Intake Total 1229.25 / 1229.25 2245.83 / 2245.83 2694 / 2694 Output Total 200 / 200 Balance 1229.25 / 1229.25 2045.83 / 2045.83 2694 / 2694 Lab / Micro Data 04/14/24 06:47 04/14/24 06:47 Labs: Laboratory Results - last 24 hr 04/14/24 06:47: WBC 7.8, RBC 2.92 L, Hgb 8.7 L, Hct 27.8 L, MCV 95.2, MCH 29.8, MCHC 31.3 L, RDW Std Deviation 54.3 H, RDW Coeff of Cas 15.5 H, Plt Count 264, MPV 10.0, Immature Gran % (Auto) 0.500, Neut % (Auto) 77.9 H, Lymph % (Auto) 9.8 L, [place] % (Auto) 6.0, Eos % (Auto) 5.4 H, Baso % (Auto) 0.4, Absolute Neuts (auto) 6.1, Absolute Lymphs (auto) 0.76 L, Nucleated RBC % 0, Sodium 140, Potassium 3.7, Chloride 111 H, Carbon Dioxide 18.0 L, Anion Gap 11, BUN 19 H, Creatinine 0.47 L, Estim Creat Clear Calc 44.40, Est GFR (MDRD) Af Amer 164, Est GFR (MDRD) Non-Af 135, BUN/Creatinine Ratio 40.5 H, Glucose 50 L, Calcium 8.5 Physical Exam Const alert, oriented x3, no apparent distress and healthy appearing General Appearance: cooperative; Negative for combative or lethargic Orientation / Consciousness: awake Exam Limitations: no limitations HEENT Head and Scalp: normocephalic and atraumatic Eyes EOMs intact bilaterally General Eye: normal appearance of both eyes Neck full ROM, no lymphadenopathy and thyroid normal General: trachea midline; Negative for lymphadenopathy or tenderness Thyroid: thyroid normal Resp normal respiratory effort and no use of accessory muscles Effort and Inspection: Negative for labored, stridor or audible wheezes Cardio regular rate and regular rhythm Peripheral Pulses: brachial pulses present, radial pulses present, femoral pulses present, popliteal pulses present, posterior tibial pulses present and dorsalis pedis pulses present Back/Spine Cervical Spine: cervical ROM normal Extremity full ROM, normal capillary refill and no clubbing, cyanosis or edema Skin no rashes or lesions noted and no wounds Neuro oriented x3, CN's II-XII intact bilaterally, no focal motor deficits and no sensory deficits noted Psych thought process normal, cooperative, affect normal, speech normal and activity/motor behavior normal Assessment & Plan Assessment/Plan (1) Ischemic colitis: PLAN: Patient is clinically improving. She [place] [facility] [place] She's also monitored by surgical services and primary team. She remains on antibiotics. Conservative therapy. Hypercoagulable labs were sent out. Charges/Coding Visit Charges Inpatient E&M: 18402 [facility] L3
[2024-04-14] MEDS: LORazepam 0.5 MG Tablet PO (22:37)
[2024-04-15] VITALS (10 sets, daily range): BP systolic 138–150; BP diastolic 66–80; PULSE 49–87; RESP 16–18; TEMP 36.6–36.7; O2SAT 94–97
[2024-04-15] MEDS: 0.9% Normal Saline (1000mL) 1,000 ML 80 ML IV ×2 (03:04→16:37)
[2024-04-15] MEDS: Piperacil/Tazobactam 3.375 GM in 0.9% Normal Saline (50mL MB+) 50 ML IV ×3 (05:41→21:24)
[2024-04-15 06:02] LABS: Absolute Lymphocyte Count 0.82 X10^3/uL (0.83-4.51); Absolute Neutrophil Count 4.6 X10^3/uL (2.0-7.7); Basophil# 0.02 X10^3/uL; Basophil% 0.3 % (0-1); Eosinophil# 0.55 X10^3/uL; Eosinophils% 8.3 % (0-5); Hematocrit 28.1 % (37-47); Lymphocyte # 0.82 X10^3/ul (0.83-4.51); Lymphocyte % 12.3 % (19-41); Mean Corpuscular Volume 93.7 fL (81-99); Monocyte# 0.68 X10^3/uL; Monocyte% 10.2 % (0-10); NRBC Flagged by Analyzer 0 % (0-5); Neutrophil # 4.56 X10^3/uL (2.7-7.7); Neutrophil % 68.6 % (47-70); Platelet Count 274 K/mm3 (150-450); RBC Distribution Width CV 15.1 % (11.6-14.6); White Blood Count 6.7 K/mm3 (4.4-11.0)
[2024-04-15 08:31] LABS: Anion Gap 8 (5-15); BUN 8 mg/dL (7-18); BUN/Creat Ratio 18.6 RATIO (10-20); Calcium,Total 8.2 mg/dL (8.5-10.1); Chloride 110 mmol/L (98-107); Creatinine, Serum 0.43 mg/dL (0.55-1.02); EST Glomerular Filtration Rate 150 mL/min (>60); Est Glom Filt Rate - Afr Amer 181 mL/min (>60); Glucose 87 mg/dL (74-106); Potassium 3.1 mmol/L (3.5-5.1); Sodium Level 139 mmol/L (136-145)
--- NOTE | 2024-04-15 09:49 | PCM.PN.SRG ---
Subjective Subjective She says she continues to feel slight improvement and she is up in the chair this morning. She is passing flatus. She says she is not ready for regular food yet. She is still having mild pain. Objective Data Objective Data Vital Signs: Vital Signs Temp Pulse Resp BP Pulse Ox O2 Del Method 97.8 F 49 L 16 138/72 H 95 Room Air 04/15/24 03:01 04/15/24 06:54 04/15/24 03:01 04/15/24 03:01 04/15/24 03:01 04/15/24 03:01 Oxygen Delivery Method Room Air Weight: 112 lb 6.972 oz Body Mass Index (BMI) 19.3 Intake & Output: Intake and Output for Last 24 Hours 04/13/24 04/14/24 04/15/24 23:59 23:59 23:59 Intake Total 2245.83 / 2245.83 2694 / 2894 1318 / 1318 Output Total 200 / 200 Balance 2045.83 / 2045.83 2694 / 2894 1318 / 1318 Lab / Micro Data 04/15/24 05:35 04/15/24 05:35 Labs: Laboratory Results - last 24 hr 04/15/24 05:35: WBC 6.7, RBC 3.00 L, Hgb 9.0 L, Hct 28.1 L, MCV 93.7, MCH 30.0, MCHC 32.0, RDW Std Deviation 52.0 H, RDW Coeff of Cas 15.1 H, Plt Count 274, MPV 10.0, Immature Gran % (Auto) 0.300, Neut % (Auto) 68.6, Lymph % (Auto) 12.3 L, [place] % (Auto) 10.2 H, Eos % (Auto) 8.3 H, Baso % (Auto) 0.3, Absolute Neuts (auto) 4.6, Absolute Lymphs (auto) 0.82 L, Nucleated RBC % 0, Sodium 139, Potassium 3.1 L, Chloride 110 H, Carbon Dioxide 21.0, Anion Gap 8, BUN 8, Creatinine 0.43 L, Estim Creat Clear Calc 44.40, Est GFR (MDRD) Af Amer 181, Est GFR (MDRD) Non-Af 150, BUN/Creatinine Ratio 18.6, Glucose 87, Calcium 8.2 L Physical Exam Const oriented x3 and no apparent distress Resp normal respiratory effort GI soft to palpation Palpation: tender LUQ Assessment & Plan Assessment/Plan (1) Ischemic colitis: PLAN: Patient has ischemic colitis and her pain is improving but still present. Continue clear liquids for now. Discussed with vascular surgery and that he she is not a candidate for any arteriogram as her vessel is too small. There is concern that she has hypotension and bradycardia due to her metoprolol and the recommendation was to stop that. Continue to await improvement. If her ischemic colitis does not improve she may need resection. If it does improve then we will stop the metoprolol and see if that prevents further episodes but I will also offer her elective colectomy to prevent further episodes once she is healed. Chuck Canales MD Pager: [facility] [address] [address], [address] [place] [phone] Office:
[2024-04-15] MEDS: Enoxaparin 40 MG/0.4 ML Syringe SC (10:22)
--- NOTE | 2024-04-15 10:26 | PN_ITS ---
Subjective Subjective Patient seen and examined. She still complains of some mild abdominal pain but it is improving. She had no other complaints and review of systems otherwise negative. Objective Data Objective Data Vital Signs: Vital Signs Temp Pulse Resp BP Pulse Ox O2 Del Method 98 F 50 L 18 142/80 H 97 Room Air 04/15/24 09:00 04/15/24 09:00 04/15/24 09:00 04/15/24 09:00 04/15/24 09:00 04/15/24 09:00 Oxygen Delivery Method Room Air Weight: 112 lb 6.972 oz Body Mass Index (BMI) 19.3 Intake & Output: Intake and Output for Last 24 Hours 04/13/24 04/14/24 04/15/24 23:59 23:59 23:59 Intake Total 2245.83 / 2245.83 2694 / 2894 1368 / 1368 Output Total 200 / 200 Balance 2045.83 / 2045.83 2694 / 2894 1368 / 1368 Lab / Micro Data 04/15/24 05:35 04/15/24 05:35 Labs: Laboratory Results - last 24 hr 04/15/24 05:35: WBC 6.7, RBC 3.00 L, Hgb 9.0 L, Hct 28.1 L, MCV 93.7, MCH 30.0, MCHC 32.0, RDW Std Deviation 52.0 H, RDW Coeff of Cas 15.1 H, Plt Count 274, MPV 10.0, Immature Gran % (Auto) 0.300, Neut % (Auto) 68.6, Lymph % (Auto) 12.3 L, M monserrat % (Auto) 10.2 H, Eos % (Auto) 8.3 H, Baso % (Auto) 0.3, Absolute Neuts (auto) 4.6, Absolute Lymphs (auto) 0.82 L, Nucleated RBC % 0, Sodium 139, P otassium 3.1 L, Chloride 110 H, Carbon Dioxide 21.0, Anion Gap 8, BUN 8, C reatinine 0.43 L, Estim Creat Clear Calc 44.40, Est GFR (MDRD) Af Amer 181, Est GFR (MDRD) Non-Af 150, BUN/Creatinine Ratio 18.6, Glucose 87, Calcium 8.2 L Physical Exam Const alert, oriented x3 and no apparent distress General Appearance: cooperative and well developed HEENT normocephalic, head/scalp atraumatic, hearing grossly normal bilaterally, moist oral mucous membranes and oropharynx normal Eyes PERRL, EOMs intact bilaterally and conjunctivae normal Neck no lymphadenopathy and supple Lymph Lymphatic: no lymphadenopathy noted Resp normal respiratory effort, normal air movement, no retractions, no use of accessory muscles and clear to auscultation bilaterally Cardio regular rate, regular rhythm, S1 normal heart sound, S2 normal heart sound and no murmurs GI normal to inspection, nondistended, normoactive bowel sounds GI Narrative: minimal left lower quadrant tenderness with palpation, no guarding or rebound tenderness, has a hernia in the left lower quadrant and left inguinal region. Extremity normal to inspection, full ROM, normal capillary refill and no clubbing, cyanosis or edema General Extremity: no tenderness to palpation of joints or extremities Skin General Skin Exam: no breakdown Neuro oriented x3, CN's II-XII intact bilaterally, moves all extremities, no focal motor deficits and no sensory deficits noted Sensorium / Orientation: awake and alert Motor Exam: strength 5/5 throughout and general weakness Psych thought process normal, cooperative and affect normal Appearance: appropriate Assessment & Plan Assessment/Plan (1) Abdominal pain: (2) Leukocytosis: PLAN: Plan #Left lower quadrant pain * thought to be due to ischemic colitis. * Initial CT of the abdomen and pelvis done was concerning for questionable bubbles of gas in the right side of the pelvis close the sigmoid colon which was not intraluminal and possibly consistent with perforation but there was no gross pneumoperitoneum throughout the abdomen and pelvis. It also showed a 6 cm left inguinal hernia with incarceration of a loop of small bowel without evidence of bowel obstruction and also showed no change in the 7 cm oval mass with water attenuation in the left side of the pelvis consistent with a physiologic cyst ovarian cyst or cystadenoma. * General surgery reviewed her and did not think that she had any colon perforation and so repeat CT of the abdomen and pelvis was done with contrast which showed bilateral inguinal hernias containing small bowel loops more on the left than the right with no evidence of extraluminal air and persistent intramural edema of the lower descending colon but not the upper descending colon or splenic flexure. * repeat CT abdomen today showed persistent wall thickening of the distal descending colon with adjacent inflammation suggestive of colitis and diverticulosis, but diverticulitis less likely. There was also high-grade stenosis of the GAVIN origin secondary to noncalcified plaque on the CTA but SMA showed no significant stenosis or occlusion on the CT of 12/10/2023. * Gastroenterology and general surgery on board. Remains on IV morphine and IV Zosyn. * vascular surgery evaluated patient and doesnt think she is a candidate for stents; per vascular surgery feels 31% stenosis in the celiac artery and the SMA is patent with minimal plaque at 40% stenosis and the GAVIN is also patent with 48% stenosis. There is not much evidence to support intervention in the GAIVN even with severe stenosis. Vascular surgery. Vascular surgery recommends medical treatment with fluids and antibiotics and to stop long-term metoprolol. * Continue IV morphine for pain. * Gastroenterology and general surgery also on board. Continue IV Zosyn. * Per discussion with general surgery to continue with the Eliquis for today.. * #Hypertension: On lisinopril and propranolol. IV hydralazine as needed. Will DC propranolol. #Bradycardia: * Patient was noted to be bradycardic and she said she had been started on propranolol by her PCP for essential tremors. * Will monitor bradycardia closely. still mildly bradycardic. will continue holding propranolol * Will DC propranolol due to bradycardia. * #History of lower GI bleed due to ischemic colitis: Had colonoscopy back in December 2023 which showed evidence of ischemic colitis. Currently stable. #History of recent right hip arthroplasty * Currently stable. * Had a right hip arthroplasty due to comminuted intertrochanteric fracture of the right femur. That was in February 2024. Currently stable. DVT prophylaxis: Lovenox CODE STATUS: Full code * Charges/Coding Visit Charges Inpatient E&M: 41843 Subs Hosp L2
[2024-04-15 11:04] LABS: Thyroid Stim Hormone (TSH) 3.49 uIU/mL (0.358-3.74)
[2024-04-15] MEDS: Acetaminophen 325 MG Tablet 650 MG PO (17:51)
[2024-04-15] MEDS: LORazepam 0.5 MG Tablet PO (21:22)
[2024-04-16] VITALS (9 sets, daily range): BP systolic 122–158; BP diastolic 69–82; PULSE 48–65; RESP 14–18; TEMP 36.6–37.1; O2SAT 94–98
[2024-04-16] MEDS: 0.9% Normal Saline (1000mL) 1,000 ML 80 ML IV (04:59)
[2024-04-16] MEDS: Piperacil/Tazobactam 3.375 GM in 0.9% Normal Saline (50mL MB+) 50 ML IV ×3 (04:59→21:07)
[2024-04-16 06:24] LABS: Absolute Lymphocyte Count 0.81 X10^3/uL (0.83-4.51); Absolute Neutrophil Count 3.3 X10^3/uL (2.0-7.7); Basophil# 0.03 X10^3/uL; Basophil% 0.6 % (0-1); Eosinophil# 0.56 X10^3/uL; Eosinophils% 10.6 % (0-5); Hematocrit 29.3 % (37-47); Hemoglobin 9.6 g/dL (12.0-15.0); Lymphocyte # 0.81 X10^3/ul (0.83-4.51); Lymphocyte % 15.4 % (19-41); Mean Corp Hgb Conc 32.8 g/dL (32-36); Mean Corpuscular Volume 91.6 fL (81-99); Mean Platelet Vol. 9.6 fl (6.2-12.0); Monocyte# 0.55 X10^3/uL; Monocyte% 10.5 % (0-10); NRBC Flagged by Analyzer 0 % (0-5); Neutrophil % 62.7 % (47-70); Platelet Count 305 K/mm3 (150-450); RBC Distribution Width CV 14.9 % (11.6-14.6); RBC Distribution Width SD 50.2 fl (35.1-43.9); White Blood Count 5.3 K/mm3 (4.4-11.0)
[2024-04-16 06:35] LABS: Anion Gap 6 (5-15); BUN 3 mg/dL (7-18); BUN/Creat Ratio 8.3 RATIO (10-20); Calcium,Total 8.4 mg/dL (8.5-10.1); Chloride 107 mmol/L (98-107); Creatinine, Serum 0.36 mg/dL (0.55-1.02); EST Glomerular Filtration Rate 182 mL/min (>60); Est Glom Filt Rate - Afr Amer 220 mL/min (>60); Glucose 92 mg/dL (74-106); Potassium 2.6 mmol/L (3.5-5.1); Sodium Level 137 mmol/L (136-145)
--- NOTE | 2024-04-16 06:51 | PN.SURG_ITS ---
Subjective Subjective The patient is doing well today. She reports her pain is resolved. She had a bowel movement overnight. Objective Data Objective Data Vital Signs: Vital Signs Temp Pulse Resp BP Pulse Ox O2 Del Method 98.1 F 48 L 18 134/69 H 95 Room Air 04/16/24 02:50 04/16/24 05:59 04/16/24 02:50 04/16/24 00:32 04/16/24 02:50 04/16/24 02:50 Oxygen Delivery Method Room Air Weight: 112 lb 6.972 oz Body Mass Index (BMI) 19.3 Intake & Output: Intake and Output for Last 24 Hours 04/14/24 04/15/24 04/16/24 23:59 23:59 23:59 Intake Total 2694 / 2894 3418 / 3618 1239.33 / 1239.33 Output Total 750 / 750 Balance 2694 / 2894 3418 / 3068 489.33 / 489.33 Lab / Micro Data 04/16/24 06:02 04/16/24 06:02 Labs: Laboratory Results - last 24 hr 04/15/24 05:35: Sodium 139, Potassium 3.1 L, Chloride 110 H, Carbon Dioxide 21.0, Anion Gap 8, BUN 8, Creatinine 0.43 L, Estim Creat Clear Calc 44.40, Est GFR (MDRD) Af Amer 181, Est GFR (MDRD) Non-Af 150, BUN/Creatinine Ratio 18.6, Glucose 87, Calcium 8.2 L, TSH 3.49 04/16/24 06:02: WBC 5.3, RBC 3.20 L, Hgb 9.6 L, Hct 29.3 L, MCV 91.6, MCH 30.0, MCHC 32.8, RDW Std Deviation 50.2 H, RDW Coeff of Cas 14.9 H, Plt Count 305, MPV 9.6, Immature Gran % (Auto) 0.200, Neut % (Auto) 62.7, Lymph % (Auto) 15.4 L, M monserrat % (Auto) 10.5 H, Eos % (Auto) 10.6 H, Baso % (Auto) 0.6, Absolute Neuts (auto) 3.3, Absolute Lymphs (auto) 0.81 L, Nucleated RBC % 0, Sodium 137, P otassium 2.6 L*, Chloride 107, Carbon Dioxide 24.0, Anion Gap 6, BUN 3 L, C reatinine 0.36 L, Estim Creat Clear Calc 44.40, Est GFR (MDRD) Af Amer 220, Est GFR (MDRD) Non-Af 182, BUN/Creatinine Ratio 8.3 L, Glucose 92, Calcium 8.4 L Physical Exam Const oriented x3 and no apparent distress Resp normal respiratory effort GI soft to palpation and non-tender Assessment & Plan Assessment/Plan (1) Ischemic colitis: PLAN: The patient seems improved with no abdominal pain today. I will advance her to a regular diet. Her potassium is low and I will replace it and recheck it at 4 PM. 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 This is not amenable to arteriogram or angioplasty. There is concerned that the patient's metoprolol for her tremors is causing her to be hypotensive and bradycardic exacerbating the ischemic colitis. Recommend stopping and when she goes back to her home. Chuck Canales MD Pager: [facility] [address] [place] [address], [address] [place] [address] Office:
[2024-04-16] MEDS: Acetaminophen 325 MG Tablet 650 MG PO ×3 (08:19→21:06)
[2024-04-16] MEDS: Enoxaparin 40 MG/0.4 ML Syringe SC (08:20)
[2024-04-16] MEDS: Potassium Chloride 10mEq/100mL 10 MEQ/100 ML IV.SOLN. 100 MEQ IV BOLUS ×3 (09:18→11:33)
[2024-04-16] MEDS: Lisinopril 20 MG Tablet PO (09:42)
[2024-04-16] MEDS: Potassium Chloride Oral Tablet 20 MEQ 40 MEQ PO (09:42)
--- NOTE | 2024-04-16 13:44 | PN.HOSP_ITS ---
Reason for Visit Reason for Visit: Diagnoses Elevated white blood cell count, unspecified (04/12/24) Noninfective gastroenteritis and colitis, unspecified (04/12/24) Vascular disorder of intestine, unspecified (04/12/24) Unspecified abdominal pain (04/12/24) Subjective Subjective Certainly improved, ate a regular diet and thus far feeling well, does think she might of had some diarrhea earlier today however overall feeling much better Objective Data Objective Data Vital Signs: Vital Signs Temp Pulse Resp BP Pulse Ox O2 Del Method 98.7 F 55 L 14 158/82 H 96 Room Air 04/16/24 08:29 04/16/24 08:29 04/16/24 08:29 04/16/24 08:29 04/16/24 08:29 04/16/24 08:29 Oxygen Delivery Method Room Air Weight: 51 kg Body Mass Index (BMI) 19.3 Intake & Output: Intake and Output for Last 24 Hours 04/14/24 04/15/24 04/16/24 23:59 23:59 23:59 Intake Total 2694 / 2894 3418 / 3618 1582.66 / 1582.66 Output Total 750 / 750 Balance 2694 / 2894 3418 / 3068 832.66 / 832.66 Lab / Micro Data 04/16/24 06:02 04/16/24 06:02 Labs: Laboratory Results - last 24 hr 04/16/24 06:02: WBC 5.3, RBC 3.20 L, Hgb 9.6 L, Hct 29.3 L, MCV 91.6, MCH 30.0, MCHC 32.8, RDW Std Deviation 50.2 H, RDW Coeff of Cas 14.9 H, Plt Count 305, MPV 9.6, Immature Gran % (Auto) 0.200, Neut % (Auto) 62.7, Lymph % (Auto) 15.4 L, M monserrat % (Auto) 10.5 H, Eos % (Auto) 10.6 H, Baso % (Auto) 0.6, Absolute Neuts (auto) 3.3, Absolute Lymphs (auto) 0.81 L, Nucleated RBC % 0, Sodium 137, P otassium 2.6 L*, Chloride 107, Carbon Dioxide 24.0, Anion Gap 6, BUN 3 L, C reatinine 0.36 L, Estim Creat Clear Calc 44.40, Est GFR (MDRD) Af Amer 220, Est GFR (MDRD) Non-Af 182, BUN/Creatinine Ratio 8.3 L, Glucose 92, Calcium 8.4 L Physical Exam Narrative General: Alert, oriented, no apparent distress HEENT: Atraumatic, normocephalic Eyes: Anicteric, normal conjunctiva, extraocular movements grossly intact Neck: Supple Respiratory: Clear to auscultation bilaterally, normal respiratory effort Cardiovascular: Regular rate GI: Soft, no rebound, guarding, rigidity Extremities: No edema Musculoskeletal: Moving all extremities Neuro: No overt focal neurological deficits Skin: No rashes appreciated Psych: Cooperative Assessment & Plan Assessment/Plan (1) Ischemic colitis: PLAN: Plan # Abdominal pain secondary to ischemic colitis -CT abdomen showed wall thickening of distal descending colon with adjacent inflammation suggestive of colitis and stenosis of the GAVIN w/ concern for ischemic colitis -Patient placed on antibiotics and pain control -GI and surgery consulted -No surgical intervention and her diet was slowly advanced, abdominal pain improved -GI followed and plans were for conservative therapy and antibiotics -Vascular surgery evaluated and patient not candidate for stenting -Overall patient much improved, discussed with surgery and patient likely for DC tomorrow if tolerating diet. Will plan on total of 7 days of antibiotics given her significant improvement -There was concern that bradycardia and low blood pressure while patient was on propranolol may have exacerbated underlying issues leading to the ischemic colitis -Will strongly recommend holding propranolol on discharge -Patient is presently hypertensive so we will resume lisinopril and monitor closely # Hypokalemia -Possibly due to the diarrhea after her ischemic colitis -Replaced today -Will recheck and also check in the a.m. -May need a repeat BMP in several days on outpatient basis # Tremors -DC propranolol -Advised to follow-up with PCP on discharge #DVT ppx: Lovenox subcu Priya Infante MD Time spent in the patient's overall evaluation,decision-making process, review of diagnostic data, adjustment of management, discussion with other providers, nursing nursing and ancillary staff involved in patient's care documentation, 36 minutes Charges/Coding Visit Charges Inpatient E&M: 70982 Subs Hosp L2
[2024-04-16 16:55] LABS: Potassium 3.8 mmol/L (3.5-5.1)
[2024-04-16] MEDS: Ensure Plus High Protein 120 ML LIQUID PO (20:19)
[2024-04-16] MEDS: LORazepam 0.5 MG Tablet PO (21:08)
[2024-04-17 02:01] VITALS: BP 137/81; PULSE 56; RESP 16; TEMP 36.6; O2SAT 98
[2024-04-17 03:26] VITALS: PULSE 50
[2024-04-17] MEDS: Piperacil/Tazobactam 3.375 GM in 0.9% Normal Saline (50mL MB+) 50 ML IV (05:05)
[2024-04-17 07:04] LABS: Absolute Lymphocyte Count 1.02 X10^3/uL (0.83-4.51); Absolute Neutrophil Count 3.4 X10^3/uL (2.0-7.7); Basophil# 0.03 X10^3/uL; Basophil% 0.5 % (0-1); Eosinophil# 0.71 X10^3/uL; Eosinophils% 12.4 % (0-5); Hemoglobin 9.4 g/dL (12.0-15.0); Lymphocyte # 1.02 X10^3/ul (0.83-4.51); Lymphocyte % 17.8 % (19-41); Mean Corp Hgb Conc 33.6 g/dL (32-36); Mean Corpuscular Hgb 30.4 pg (27.0-32.0); Mean Corpuscular Volume 90.6 fL (81-99); Mean Platelet Vol. 9.3 fl (6.2-12.0); Monocyte# 0.58 X10^3/uL; Monocyte% 10.1 % (0-10); NRBC Flagged by Analyzer 0 % (0-5); Neutrophil # 3.38 X10^3/uL (2.7-7.7); Neutrophil % 58.9 % (47-70); Platelet Count 291 K/mm3 (150-450); RBC Distribution Width CV 14.9 % (11.6-14.6); RBC Distribution Width SD 49.7 fl (35.1-43.9); Red Blood Count 3.09 M/mm3 (4.2-5.4); White Blood Count 5.7 K/mm3 (4.4-11.0)
[2024-04-17 07:48] LABS: Anion Gap 5 (5-15); BUN 4 mg/dL (7-18); BUN/Creat Ratio 9.6 RATIO (10-20); Calcium,Total 8.6 mg/dL (8.5-10.1); Chloride 107 mmol/L (98-107); Creatinine, Serum 0.42 mg/dL (0.55-1.02); EST Glomerular Filtration Rate 155 mL/min (>60); Est Glom Filt Rate - Afr Amer 187 mL/min (>60); Glucose 90 mg/dL (74-106); Potassium 3.3 mmol/L (3.5-5.1); Sodium Level 137 mmol/L (136-145)
--- NOTE | 2024-04-17 08:40 | PCM.PN.SRG ---
Subjective Subjective Patient is comfortable and tolerating a regular diet. She said she had a bowel movement yesterday with no pain. Objective Data Objective Data Vital Signs: Vital Signs Temp Pulse Resp BP Pulse Ox O2 Del Method 97.8 F 50 L 16 137/81 H 98 Room Air 04/17/24 02:01 04/17/24 03:26 04/17/24 02:01 04/17/24 02:01 04/17/24 02:01 04/17/24 02:01 Oxygen Delivery Method Room Air Weight: 112 lb 6.972 oz Body Mass Index (BMI) 19.3 Intake & Output: Intake and Output for Last 24 Hours 04/15/24 04/16/24 04/17/24 23:59 23:59 23:59 Intake Total 3418 / 3618 3577.99 / 3877.99 550 / 550 Output Total 1050 / 1050 Balance 3418 / 3068 2527.99 / 2827.99 550 / 550 Lab / Micro Data 04/17/24 06:49 04/17/24 06:49 Labs: Laboratory Results - last 24 hr 04/16/24 16:08: Potassium 3.8 04/17/24 06:49: WBC 5.7, RBC 3.09 L, Hgb 9.4 L, Hct 28.0 L, MCV 90.6, MCH 30.4, MCHC 33.6, RDW Std Deviation 49.7 H, RDW Coeff of Cas 14.9 H, Plt Count 291, MPV 9.3, Immature Gran % (Auto) 0.300, Neut % (Auto) 58.9, Lymph % (Auto) 17.8 L, [place] % (Auto) 10.1 H, Eos % (Auto) 12.4 H, Baso % (Auto) 0.5, Absolute Neuts (auto) 3.4, Absolute Lymphs (auto) 1.02, Nucleated RBC % 0, Sodium 137, Potassium 3.3 L, Chloride 107, Carbon Dioxide 25.0, Anion Gap 5, BUN 4 L, Creatinine 0.42 L, Estim Creat Clear Calc 44.40, Est GFR (MDRD) Af Amer 187, Est GFR (MDRD) Non-Af 155, BUN/Creatinine Ratio 9.6 L, Glucose 90, Calcium 8.6 Physical Exam Const oriented x3 and no apparent distress GI normal to inspection, nondistended, normoactive bowel sounds Assessment & Plan Assessment/Plan (1) Ischemic colitis: PLAN: Patient is tolerating regular diet with no abdominal pain. She is okay to return to her senior care. We will stop the metoprolol when she is home-going to prevent hypotension and bradycardia and recurrent ischemic colitis. Chuck Canales MD Pager: [facility] [address] [place] [address] [address] [place] [address] Office:
[2024-04-17] MEDS: Enoxaparin 40 MG/0.4 ML Syringe SC (09:54)
[2024-04-17] MEDS: Lisinopril 20 MG Tablet PO (09:54)
[2024-04-17] MEDS: Pantoprazole Sodium 40 MG Tablet PO (09:55)
[2024-04-17] MEDS: Acetaminophen 325 MG Tablet 650 MG PO (09:58)
[2024-04-17] MEDS: Ensure Plus High Protein 120 ML LIQUID PO (09:58)
[2024-04-17] MEDS: Potassium Chloride Oral Tablet 20 MEQ 40 MEQ PO (09:58)
[2024-04-17 10:00] VITALS: BP 133/65; PULSE 62; RESP 16; TEMP 36.9; O2SAT 98
--- NOTE | 2024-04-17 10:49 | PCM.TXEXTCAR ---
Diet Diet Order/Speech Therapy: 04/16/24 06:51 Diet: Regular - General Routine Orders/Code Status Suppository Type: Dulcolax 10mg Suppository Frequency: Daily PRN Routine Lab Work: BMP (3 days) Code Status: Full Code Therapies Physical Therapy: Eval and Treat Occupational Therapy: Eval and Treat Problem/Diagnosis (1) Ischemic colitis: Status: Acute Code(s): K55.9 - Vascular disorder of intestine, unspecified Plan # Abdominal pain secondary to ischemic colitis # Hypokalemia 2/2 diarrhea # Tremors # Hypertension 83-year-old female history of anxiety, hypertension, GERD, tremors who presented to [facility] ED 04/12/2024 with left lower abdominal pain for several days. Was brought in from SNF because pain was worsening and became persistent and she had nausea with vomiting x 1. In December 2023 she had colonoscopy suggestive of ischemic colitis and on presentation she had CT abdomen suggestive of ischemic colitis. GI and surgery evaluated with no surgical intervention, was discussed with vascular who also recommended discontinuing propranolol and conservative management. Patient improved with supportive care and Zosyn and required no further intervention. On day of discharge patient much improved and tolerating regular diet. Patient has no new or acute complaints. Discharge instructions as followed: -You will be discharged on ciprofloxacin and Flagyl, you will need doses of each tonight and you will take this for 2 more days -Would recommend lab work (BMP) to check your potassium in 2 to 3 days through your primary care physician's office. Please call their office upon discharge to obtain order for lab work. -It will be very important for you to discontinue your propranolol Allergies/Procedures Done in Hospital Allergies venom-honey bee Allergy (Verified 04/12/24 09:25) Hives (YELLOW JACKETS) venom-wasp Allergy (Verified 04/12/24 09:25) Hives naproxen Adverse Reaction (Verified 04/12/24 09:25) Other prednisone Adverse Reaction (Verified 04/12/24 09:25) Other Type of Care/Length of Stay Estimated LOS: Convalescent Care Less Than 30 days Type of Care Needed: Skilled Rehab Potential: Fair Prognosis: Fair Additional Orders/Day of Discharge Day of Discharge: 04/17/24 Dietary and Speech Recommendations Dietitian Recommendations/Changes: Continue liberal Regular Will order 4 oz ensure plus high protein 4x/day w/ medpass (chocolate during day and strawberry at HS) Discharge Plan Admission Admit Date/Time: 04/12/24 11:37 Primary Reason for Your Visit: Abdominal pain Attending Provider: Priya Infante Primary Care Provider: Rolf Peck Consulting Providers: Chuck Canales; Antony Crook; Nirmala Parra Instructions Patient Instructions: Ischemic Colitis Additional Instructions / Restrictions: DISCHARGE INSTRUCTIONS PLEASE READ *Please take this with you to your next doctors appointment* -You will be discharged on ciprofloxacin and Flagyl, you will need doses of each tonight and you will take this for 2 more days -Would recommend lab work (BMP) to check your potassium in 2 to 3 days through your primary care physician's office. Please call their office upon discharge to obtain order for lab work. -It will be very important for you to discontinue your propranolol -Please call your primary care provider's office upon discharge to schedule a hospital follow up within 1 week. -For any concerning signs or symptoms please call 911 or proceed to the nearest emergency department Discharge Orders/Prescriptions Prescriptions: New metronidazole 500 mg tablet 500 mg PO Q8H 3 Days Qty: 9 0RF ciprofloxacin HCl 500 mg tablet 500 mg PO Q12H 3 Days Qty: 6 0RF Continued lisinopril 20 mg tablet 20 mg PO DAILY acetaminophen [Tylenol] 325 mg Tablet 650 mg PO Q4H PRN (Reason: Pain) calcium carbonate-vitamin D3 600 mg-5 mcg (200 unit) Tablet 1 tab PO DAILY pantoprazole 40 mg Tablet,Delayed Release (Dr/Ec) 40 mg PO DAILY Qty: 30 0RF enoxaparin 40 mg/0.4 mL syringe 40 mg subcut DAILY docusate sodium [Colace] 100 mg capsule 100 mg PO BID PRN ferrous sulfate [Feosol] 325 mg (65 mg iron) tablet 325 mg PO BID polyethylene glycol 3350 [ClearLax] 17 gram/dose powder 17 g PO DAILY PRN (Reason: constipation) sennosides [Evac-U-Gen (sennosides)] 8.6 mg tablet 8.6 mg PO DAILY PRN (Reason: constipation) lorazepam 0.5 mg Tablet 0.5 mg PO QHS PRN (Reason: Sleep) 3 Days Qty: 3 0RF Discontinued propranolol 60 mg capsule,extended release 24 hr 60 mg PO QHS Patient Comments: CALLED PCP FOR REFILL BUT CURRENTLY OUT OF MEDICATION oxycodone 5 mg capsule 5 mg PO Q4H PRN (Reason: pain) Referrals / Follow Up: Rolf Peck MD [Primary Care Provider] - Within 1 Week Disposition Disposition (needs filled in before D/C Order can be placed): Senior Care Facility
--- NOTE | 2024-04-17 10:53 | DS.PCM_ITS ---
Providers Date of Admission: 04/12/24 Date of Discharge: 04/17/24 Primary Care Physician: Dr. Rolf Peck MD Consultations 04/12/24 14:52 Consult: General Surgery Routine Consulting Provider: Chuck Canales Reason for Consult: abdominal pain EMERGENT Consult: No Notified: Yes Date Notified: 04/12/24 Time Notified: 11:40 Method of Notification: Verbal 04/12/24 16:22 Consult: Gastroenterology Routine Consulting Provider: [facility] Reason for Consult: left lower quadrant pain, history of ischemic colitis EMERGENT Consult: No Notified: Yes Date Notified: 04/12/24 Time Notified: 16:22 Method of Notification: Text 04/14/24 10:39 Consult: Vascular Surgery Routine Consulting Provider: Antony Crook Reason for Consult: ischemic colitis EMERGENT Consult: No Notified: Yes Date Notified: 04/14/24 Time Notified: 10:39 Method of Notification: Verbal Reason For Visit: ABDOMINAL PAIN Diagnosis Discharge Diagnosis (1) Ischemic colitis: Status: Acute Code(s): K55.9 - Vascular disorder of intestine, unspecified Plan # Abdominal pain secondary to ischemic colitis # Hypokalemia 2/2 diarrhea # Tremors # Hypertension Medications at Discharge Home Medications lisinopril 20 mg tablet 20 mg PO DAILY blood pressure 10/23/21 acetaminophen 325 mg tablet (Tylenol) 650 mg PO Q4H PRN Pain 09/20/22 calcium carbonate 600 mg-vitamin D3 5 mcg (200 unit) tablet 1 tab PO DAILY supplement 09/20/22 pantoprazole 40 mg tablet,delayed release 40 mg PO DAILY #30 tabs 12/13/23 docusate sodium 100 mg capsule (Colace) 100 mg PO BID PRN 03/07/24 enoxaparin 40 mg/0.4 mL subcutaneous syringe 40 mg subcut DAILY 03/07/24 ferrous sulfate 325 mg (65 mg iron) tablet (Feosol) 325 mg PO BID 03/07/24 polyethylene glycol 3350 17 gram/dose oral powder (ClearLax) 17 g PO DAILY PRN constipation 04/12/24 sennosides 8.6 mg tablet (Evac-U-Gen (sennosides)) 8.6 mg PO DAILY PRN constipation 04/12/24 ciprofloxacin HCl 500 mg tablet 500 mg PO Q12H 3 days #6 tabs 04/17/24 lorazepam 0.5 mg tablet 0.5 mg PO QHS PRN Sleep 3 days #3 tabs 04/17/24 metronidazole 500 mg tablet 500 mg PO Q8H 3 days #9 tabs 04/17/24 Hospital Course Summary of Care Provided Minutes Spent on Discharge: 31 Hospital Course: 83-year-old female history of anxiety, hypertension, GERD, tremors who presented to [facility] ED 04/12/2024 with left lower abdominal pain for several days. Was brought in from SNF because pain was worsening and became persistent and she had nausea with vomiting x 1. In December 2023 she had colonoscopy suggestive of ischemic colitis and on presentation she had CT abdomen suggestive of ischemic colitis. GI and surgery evaluated with no surgical intervention, was discussed with vascular who also recommended discontinuing propranolol and conservative management. Patient improved with supportive care and Zosyn and required no further intervention. On day of discharge patient much improved and tolerating regular diet. Patient has no new or acute complaints. Discharge instructions as followed: -You will be discharged on ciprofloxacin and Flagyl, you will need doses of each tonight and you will take this for 2 more days -Would recommend lab work (BMP) to check your potassium in 2 to 3 days through your primary care physician's office. Please call their office upon discharge to obtain order for lab work. -It will be very important for you to discontinue your propranolol Physical Exam Narrative General: Alert, oriented, no apparent distress HEENT: Atraumatic, normocephalic Eyes: Anicteric, normal conjunctiva, extraocular movements grossly intact Neck: Supple Respiratory: Clear to auscultation bilaterally, normal respiratory effort Cardiovascular: Regular rate GI: Soft, no rebound, guarding, rigidity Extremities: No edema Musculoskeletal: Moving all extremities Neuro: No overt focal neurological deficits Skin: No rashes appreciated Psych: Cooperative Weight / BMI Weight Weight: 51 kg Body Mass Index (BMI) 19.3 ABG / Lab / Microbiology Data 04/17/24 06:49 04/17/24 06:49 Laboratory: Laboratory Results - last 24 hr 04/16/24 16:08: Potassium 3.8 04/17/24 06:49: WBC 5.7, RBC 3.09 L, Hgb 9.4 L, Hct 28.0 L, MCV 90.6, MCH 30.4, MCHC 33.6, RDW Std Deviation 49.7 H, RDW Coeff of Cas 14.9 H, Plt Count 291, MPV 9.3, Immature Gran % (Auto) 0.300, Neut % (Auto) 58.9, Lymph % (Auto) 17.8 L, M monserrat % (Auto) 10.1 H, Eos % (Auto) 12.4 H, Baso % (Auto) 0.5, Absolute Neuts (auto) 3.4, Absolute Lymphs (auto) 1.02, Nucleated RBC % 0, Sodium 137, P otassium 3.3 L, Chloride 107, Carbon Dioxide 25.0, Anion Gap 5, BUN 4 L, C reatinine 0.42 L, Estim Creat Clear Calc 44.40, Est GFR (MDRD) Af Amer 187, Est GFR (MDRD) Non-Af 155, BUN/Creatinine Ratio 9.6 L, Glucose 90, Calcium 8.6 D/C Instructions Discharge Diet: Light diet - advance as tolerated Discharge Activity: Return to Normal Activity Meaningful Use Info Meaningful Use Meaningful Use Diagnoses (Choose all that apply): None applicable Ischemic Stroke Statin Dosing Therapy Reference: STATIN DOSE THERAPY REFERENCE: * Patients > 75 years receive moderate or high dose statin therapy. * Patients 75 years or YOUNGER should receive HIGH intensity statin dose unless contraindicated. You will be required to document reason for non-treatment if statin daily dose does not meet guidelines. HIGH DOSE STATIN THERAPY DAILY Atorvastatin > than or = to 40 mg Rosuvastatin > than or = to 20 mg Amlodipine + Atorvastatin > than or = to 2.5/40 mg Ezetimibe + Simvastatin 10/80 mg Simvastatin 80mg Discharge Plan Admission Admit Date/Time: 04/12/24 11:37 Primary Reason for Your Visit: Abdominal pain Attending Provider: Priya Infante Primary Care Provider: Rolf Peck Consulting Providers: Chuck Canales; Antony Crook; Nirmala Parra Instructions Patient Instructions: Ischemic Colitis Additional Instructions / Restrictions: DISCHARGE INSTRUCTIONS PLEASE READ *Please take this with you to your next doctors appointment* -You will be discharged on ciprofloxacin and Flagyl, you will need doses of each tonight and you will take this for 2 more days -Would recommend lab work (BMP) to check your potassium in 2 to 3 days -It will be very important for you to discontinue your propranolol -Please call your primary care provider's office upon discharge to schedule a hospital follow up within 1 week. -For any concerning signs or symptoms please call 911 or proceed to the nearest emergency department Discharge Orders/Prescriptions Prescriptions: New metronidazole 500 mg tablet 500 mg PO Q8H 3 Days Qty: 9 0RF ciprofloxacin HCl 500 mg tablet 500 mg PO Q12H 3 Days Qty: 6 0RF Continued lisinopril 20 mg tablet 20 mg PO DAILY acetaminophen [Tylenol] 325 mg Tablet 650 mg PO Q4H PRN (Reason: Pain) calcium carbonate-vitamin D3 600 mg-5 mcg (200 unit) Tablet 1 tab PO DAILY pantoprazole 40 mg Tablet,Delayed Release (Dr/Ec) 40 mg PO DAILY Qty: 30 0RF enoxaparin 40 mg/0.4 mL syringe 40 mg subcut DAILY docusate sodium [Colace] 100 mg capsule 100 mg PO BID PRN ferrous sulfate [Feosol] 325 mg (65 mg iron) tablet 325 mg PO BID polyethylene glycol 3350 [ClearLax] 17 gram/dose powder 17 g PO DAILY PRN (Reason: constipation) sennosides [Evac-U-Gen (sennosides)] 8.6 mg tablet 8.6 mg PO DAILY PRN (Reason: constipation) lorazepam 0.5 mg Tablet 0.5 mg PO QHS PRN (Reason: Sleep) 3 Days Qty: 3 0RF Discontinued propranolol 60 mg capsule,extended release 24 hr 60 mg PO QHS Patient Comments: CALLED PCP FOR REFILL BUT CURRENTLY OUT OF MEDICATION oxycodone 5 mg capsule 5 mg PO Q4H PRN (Reason: pain) Referrals / Follow Up: Rolf Peck MD [Primary Care Provider] - Within 1 Week Disposition Disposition (needs filled in before D/C Order can be placed): [facility] Facility Charges/Coding Visit Charges Inpatient E&M: 27197 Disch Hosp >30min
--- NOTE | 2024-04-17 10:54 | CASEMGMT ---
Social Work- SW met with pt to advise of pending d/c. Pt reports that she will call her family to notify them. DCA advised. ROSELYN Benitez
--- NOTE | 2024-04-17 11:02 | CASEMGMT ---
Social Work Physician reports that pt is medically ready for discharge today.? SW met with pt and they are agreeable to discharge plan as stated above.? DCA and bedside nurse notified of discharge. Disposition:? [facility], intermediate level of care. ROSELYN Benitez
--- NOTE | 2024-04-17 11:16 | CASEMGMT ---
Discharge Planning Discharge orders, signed med list, and transport time sent to [facility] via [facility]. Physicians will transport patient by wheelchair at 1p. Nursing, SW, and patient updated. VM left for patients daughters (Ita). Jillian Henson DC Planning Asst.
--- NOTE | 2024-04-17 11:47 | PHA.DC.MR.R ---
Pharmacy [place] Med Reconciliation Pharmacy Service has performed discharge medication reconciliation for this patient. The patient's discharge medication list was reviewed for discrepancies and discrepancies were resolved. Medications at Discharge Home Medications lisinopril 20 mg tablet 20 mg PO DAILY blood pressure 10/23/21 acetaminophen 325 mg tablet (Tylenol) 650 mg PO Q4H PRN Pain 09/20/22 calcium carbonate 600 mg-vitamin D3 5 mcg (200 unit) tablet 1 tab PO DAILY supplement 09/20/22 pantoprazole 40 mg tablet,delayed release 40 mg PO DAILY #30 tabs 12/13/23 docusate sodium 100 mg capsule (Colace) 100 mg PO BID PRN 03/07/24 enoxaparin 40 mg/0.4 mL subcutaneous syringe 40 mg subcut DAILY 03/07/24 ferrous sulfate 325 mg (65 mg iron) tablet (Feosol) 325 mg PO BID 03/07/24 polyethylene glycol 3350 17 gram/dose oral powder (ClearLax) 17 g PO DAILY PRN constipation 04/12/24 sennosides 8.6 mg tablet (Evac-U-Gen (sennosides)) 8.6 mg PO DAILY PRN constipation 04/12/24 ciprofloxacin HCl 500 mg tablet 500 mg PO Q12H 3 days #6 tabs 04/17/24 lorazepam 0.5 mg tablet 0.5 mg PO QHS PRN Sleep 3 days #3 tabs 04/17/24 metronidazole 500 mg tablet 500 mg PO Q8H 3 days #9 tabs 04/17/24
--- NOTE | 2024-04-17 12:06 | NURSING ---
Report called to [facility] at this time to
--- NOTE | 2024-04-17 14:32 | CHAPLAIN ---
Type of Pastoral Visit _x__ Initial Visit ___ Follow-up Visit ___ On-call Visit ___ General Patient Visit ___ Spiritual Assessment ___ Family Conference ___ Bereavement ___ Rapid Response ___ Code Blue ___ Other (describe below) Pastoral Care Referral From _x__ Patient ___ Family ___ Nurse ___ Physician ___ Air Valve Repairer ___ Labor Economics Professor ___ Other (describe below) Sacrament/Intervention _x__ Active listening ___ Anointing ___ Yazidi ___ Bereavement ___ Communion _x__ Pauline exploration ___ _x__ Life review _x__ Prayer ___ Reconciliation ___ Sacrament of Sick _x__ Supportive presence ___ Wedding ___ Other (describe below) Pastoral Comments patient was sitting up in chair and is alert and willing to talk; pt speaks of her health needs and the plans that may need to be made about living arrangements; pt expresses her fortunate decisions before last August and how thankful she is about her pauline believing neighbors that are so very helpful and live out their pauline; pt goal is to return home if possible after finishing her rehab at [facility]; pt says that she is becoming more interested and open to pauline and God; pt may try to establish herself in a uatsdin for the future as that could be a real positive for me; pt welcomes presence and prayer
== END 2024-04-17 14:29 | disposition skilled nursing facility (03) | DRG 395 ==
LOC: ED 12:11 → MS3 14:18
PROVIDERS: Surgery; Admitting Provider Student in an Organized Health Care Education/Training Program; Emergency Provider Emergency Medicine; PCP Family Medicine; Visit Provider Internal Medicine
DX: K55.9 Vascular disorder of intestine, unspecified (principal); D72.829 Elevated white blood cell count, unspecified; I10 Essential (primary) hypertension; E87.6 Hypokalemia; K21.9 Gastro-esophageal reflux disease without esophagitis; R00.1 Bradycardia, unspecified; K52.9 Noninfective gastroenteritis and colitis, unspecified; R25.1 Tremor, unspecified; Z87.891 Personal history of nicotine dependence; Z79.899 Other long term (current) drug therapy; Z96.619 Presence of unspecified artificial shoulder joint; Z98.41 Cataract extraction status, right eye; Z98.42 Cataract extraction status, left eye
CPT/HCPCS: 36415; 74176; 74177; 80048; 80053; 81001; 83605; 84132; 84443; 85025; 93005; 97110; 97116; 97162; 97166; 97530; 97535; 99285; J7030; J7050; Q9967; A4216; J2405

== ENCOUNTER 2024-05-21 13:22 | Emergency (ER) | payer MEDICARE, OTHER, SELFPAY ==
[2024-05-21 13:23] VITALS: BP 138/75; PULSE 66; RESP 18; TEMP 35.9; O2SAT 100
[2024-05-21 13:25] VITALS: BMI 19.8
--- NOTE | 2024-05-21 14:37 | CT_ITS ---
INDICATION: LLQ abd pain Hx of Ischemic colitis EXAMINATION: CT ABDOMEN AND PELVIS WITH CONTRAST - CT Abdomen And Pelvis W/ Contrast Injection TECHNIQUE: Helically acquired images were obtained of the abdomen and pelvis following IV contrast. A radiation dose optimization technique was used for this scan. IV Contrast dosage and agent: 100 cc [id number] Oral contrast: None. COMPARISON: 04/13/2024, 12/10/2023 FINDINGS: LOWER CHEST: Bibasilar dependent changes. No cardiomegaly or pericardial effusion. LIVER: Stable 1.1 cm peripherally enhancing lesion right lobe liver. Further characterization cannot be made on single phase study. No focal concerning mass. GALLBLADDER AND BILIARY TREE: No calcified gallstones. No gallbladder distension or wall edema. No intra- or extrahepatic biliary ductal dilation. PANCREAS: No focal cystic or solid mass. SPLEEN: Normal size without focal cystic or solid mass. ADRENAL GLANDS: No nodules. KIDNEYS AND URETERS: Uniform enhancement. No hydronephrosis. PERITONEUM: No ascites or free air. BOWEL: No evidence of acute appendicitis. No stomach or bowel distension. No focal inflammatory change. Diffusely increased colonic fecal burden. LYMPH NODES: No enlarged mesenteric or retroperitoneal lymph nodes. VESSELS: Aorta is non-dilated. URINARY BLADDER: Unremarkable. REPRODUCTIVE ORGANS: 7.7 cm adnexal cyst minimally increased from prior study with measurement of 7.3 cm. ABDOMINAL WALL: Bilateral bowel containing inguinal hernias, left side larger than right. No strangulation or obstruction. BONES: No lytic or blastic abnormality. Stable appearance right hip arthroplasty. CT/Abdomen/Pelvis W IV Cont ONLY IMPRESSION: No acute findings in the abdomen or pelvis. Slight increase in diameter of the large adnexal cyst, currently 7.7 cm. Colonic fecal burden consistent with clinical constipation. Stable 11 mm peripherally enhancing lesion right lobe liver. Electronically Signed: Kye Espinosa MD at 16:47 EDT Reading Location ID and State: [facility] / [place] Tel , Service support ,
--- NOTE | 2024-05-21 14:38 | EDS_ITS ---
HPI HPI - GI History of Present Illness Chief Complaint: Abd Pain Informant: patient Abdominal Pain/Flank Pain Onset: Days Context: Gradual Onset Timing: Continuous Quality: Aching Location: LLQ Current Severity: Gone Maximum Severity: Mild Worsened by: Food Relieved by: Nothing Nausea/Vomiting/Emesis GI Symptom: Negative for Nausea or Vomiting Diarrhea/Melena/Hematochezia GI Symptom: Negative for Diarrhea, Melena or Hematochezia Associated Symptoms Associated Symptoms: Negative for Dysuria, Frequency or Hematuria Narrative Narrative: 83-year-old female history of chronic ischemic colitis, prior GI bleed, hypertension. She denies any prior abdominal or pelvic surgeries. States for the last 4 to 5 days she has had left lower quadrant abdominal pain. States she improved currently. She denies any nausea vomiting or diarrhea. No fever or chills. No dysuria. She has been having regular bowel movements did not have 1 today. She denies any dysuria. Prior similar symptoms: Yes Recent Illness/Hospitalization: No PFSH PFS Medical History Acute lower gastrointestinal bleeding Hyponatremia History of echocardiogram Wears glasses Post-menopausal Anxiety Alcohol use History of steroid therapy Ambulates with cane Arthritis Back pain Migraine headache Constipation Former smoker Leg cramps History of pain when walking History of fracture of leg Hypertension Home Medications ?Medication ?Instructions ?Recorded ?Last Taken ?Type lisinopril 20 mg tablet 20 mg PO DAILY blood pressure 10/23/21 12/09/23 History acetaminophen 325 mg tablet 650 mg PO Q4H PRN Pain 09/20/22 09/29/22 History (Tylenol) calcium carbonate 600 mg-vitamin 1 tab PO DAILY supplement 09/20/22 12/09/23 History D3 5 mcg (200 unit) tablet pantoprazole 40 mg tablet,delayed 40 mg PO DAILY #30 tabs 12/13/23 Unknown Rx release docusate sodium 100 mg capsule 100 mg PO BID PRN 03/07/24 Unknown History (Colace) ferrous sulfate 325 mg (65 mg 325 mg PO BID 03/07/24 Unknown History iron) tablet (Feosol) polyethylene glycol 3350 17 17 g PO DAILY PRN constipation 04/12/24 Unknown History gram/dose oral powder (ClearLax) sennosides 8.6 mg tablet 8.6 mg PO DAILY PRN constipation 04/12/24 Unknown History (Evac-U-Gen (sennosides)) lorazepam 0.5 mg tablet 0.5 mg PO QHS PRN Sleep 3 days #3 04/17/24 Unknown Rx tabs metronidazole 500 mg tablet 500 mg PO Q8H 3 days #9 tabs 04/17/24 Unknown Rx Allergy/AdvReac Type Severity Reaction Status Date / Time venom-honey bee Allergy Hives Verified 05/21/24 13:26 venom-wasp Allergy Hives Verified 05/21/24 13:26 naproxen AdvReac Other Verified 05/21/24 13:26 prednisone AdvReac Other Verified 05/21/24 13:26 Surgical History H/O shoulder replacement Hx of right cataract extraction Hx of left cataract extraction Hx of colonoscopy Social History housing: house Smoking Status: Former smoker ROS ROS ED ROS Narrative Left lower quadrant pain Constitutional Constitutional ED: Denies chills or fever(s) ENT ENT ED: Denies ear pain Cardiovascular Cardiovascular: Denies chest pain Respiratory/Chest Respiratory/Chest: Denies cough or dyspnea Gastrointestinal Gastrointestinal: Reports abdominal pain; Denies constipation, diarrhea, melena, nausea or vomiting Genitourinary Genitourinary ED: Denies dysuria or hematuria Musculoskeletal Musculoskeletal: Denies arthralgias or back pain Integumentary Denies abscess or Abrasions Neurologic Neurologic: Denies headache(s) Psychiatric Psychiatric: Denies anxiety or depression Endocrine Endocrinology: Denies polydipsia, polyphagia or polyuria Hematologic/Lymphatic Hematologic/Lymphatic: Denies easy bleeding or easy bruising Allergic/Immunologic Allergic/Immunologic ED: Denies mouth swelling EXAM Physical Exam Narrative Exam Narrative: Well-appearing 83-year-old female. Vital signs stable afebrile. H EENT exam unremarkable. She is in no acute distress. Neck nontender no lymphadenopathy. Lungs clear to auscultation. Heart regular rhythm rate about 66 no murmur. Abdomen is soft, nontender, nondistended, normal bowel sounds without peritoneal signs. Is a right lower quadrant and left-sided abdominal hernias but they have obviously reduced. She is nondistended. No peritoneal signs. No localizing tenderness. Positive bowel sounds. Moving all 4 extremities. Nontender no edema. Neurologically she is awake and alert no focal motor deficits. Answer questions following commands. Back nontender. Const Vital Signs: 05/21/24 13:23 05/21/24 15:22 Temperature 96.6 F L Temperature Source Temporal Pulse Rate 66 54 L Respiratory Rate 18 Blood Pressure 138/75 H 151/88 H Blood Pressure Mean 96 109 Pulse Ox 100 Oxygen Delivery Method Room Air Positive well nourished and well developed; Negative for obese, cachectic, contractures or unkempt General Appearance ED: well developed and NAD; Negative for unkempt, cachectic or contractures Nutritional Appearance: Negative for cachectic or obese HEENT Reports moist mucous membranes normocephalic and atraumatic; Negative for trauma or tenderness Eyes PERRL and EOMs intact bilaterally General Eye ED: Negative for pale conjunctiva or scleral icterus Neck no lymphadenopathy, supple and no JVD General: Negative for tenderness Carotids: Negative for other Lymph Lymphatic: Negative for other Resp normal respiratory effort and clear to auscultation bilaterally Effort and Inspection: Negative for respiratory distress Auscultation: Negative for rales, rhonchi, wheezes or diminished lung sounds Cardio regular rate, regular rhythm, S1 normal heart sound, S2 normal heart sound and no murmurs Rate: Negative for bradycardia or tachycardic Rhythm: Negative for abnormal rhythm GI non-tender, non-distended and no masses GI Narrative: Patient has a left-sided ventral hernia nontender easily reduces. Abdomen at this time is nontender. Inspection: Negative for abdominal distention Auscultation: normoactive bowel sounds Palpation: soft and hernia; Negative for tender, guarding, rigid, pulsatile mass or rebound tenderness present Back/Spine no CVA tenderness Extremity General Extremety ED: Negative for edema or tenderness General Extremity: Negative for edema Neuro CN's II-XII intact bilaterally and moves all extremities Sensorium / Orientation: alert, oriented to person, oriented to place and oriented to time Motor Exam: strength 5/5 throughout Psych mental status grossly normal and thought process normal Appearance: Negative for unkempt Attitude: No agitated Mood & Affect: Negative for depressed, anxious or tearful Skin no wounds General Skin Exam: Negative for jaundice Lesions: no lesions Rashes: no rashes Trauma: Negative for abrasion Nails: Negative for discolored MDM MDM MDM Narrative Medical decision making narrative: 83-year-old female left lower quadrant abdominal pain for the last 4 to 5 days but currently is pain-free. History of ischemic colitis. CAT scan labs are pending. She did not want a thing for pain or nausea because she has neither symptom at this time. Repeat exam patient is doing well at 5:37 PM. Abdomen is benign. No peritoneal signs. She and I discussed her test and CAT scan results. She is comfortable being discharged home with outpatient follow-up. She will be given GoLytely for constipation. History & Record Review Discussion w/independent historian: Patient Additional record(s) reviewed:: Prior inpatient record, Prior outpatient record, Prior ED visit and Prior labs Lab Data Attestation: I reviewed the patient's lab results. Lab results narrative: CBC shows white count 7.6. H&H 10.7 and 33. Platelets 290. Electrolytes show sodium 132. Gap 6. BUN and creatinine are 20 and 0.6. Liver enzymes are normal. Lipase is 37. Amylase normal at 42. UA is negative. Labs are consistent with prior. CT of the abdomen shows constipation and increased fecal load. Labs: Laboratory Results - last 24 hr 05/21/24 05/21/24 14:45 14:59 WBC 7.6 RBC 3.53 L Hgb 10.7 L Hct 33.0 L MCV 93.5 MCH 30.3 MCHC 32.4 RDW Std Deviation 58.5 H RDW Coeff of Cas 17.1 H Plt Count 290 MPV 9.3 Immature Gran % (Auto) 0.300 Neut % (Auto) 50.3 Lymph % (Auto) 38.5 [place] % (Auto) 8.4 Eos % (Auto) 1.8 Baso % (Auto) 0.7 Absolute Neuts (auto) 3.8 Absolute Lymphs (auto) 2.92 Nucleated RBC % 0 Sodium 132 L Potassium 4.8 Chloride 97 L Carbon Dioxide 29.0 Anion Gap 6 BUN 20 H Creatinine 0.66 Estim Creat Clear Calc 45.73 Est GFR (MDRD) Af Amer 110 Est GFR (MDRD) Non-Af 91 BUN/Creatinine Ratio 30.2 H Glucose 99 Lactic Acid 1.1 Calcium 9.4 Total Bilirubin 0.30 AST 17 ALT 18 Alkaline Phosphatase 52 Total Protein 6.4 Albumin 3.3 Globulin 3.1 Albumin/Globulin Ratio 1.1 Amylase 42 Lipase 37 Urine Color Yellow Urine Clarity Sl. Cloudy Urine pH 7.0 Ur Specific [place] 1.010 Urine Protein Negative Urine Glucose (UA) Normal Urine Ketones Negative Urine Occult Blood Negative Urine Nitrite Negative Urine Bilirubin Negative Urine Urobilinogen Normal Ur Leukocyte Esterase Negative Urine RBC 0-5 SEEN Urine WBC 0 SEEN Ur Squamous Epith Cells 0-5 SEEN Amorphous Sediment 2+ Urine Bacteria 1+ Urine Mucus 0 SEEN Radiography Diagnostic Testing: Clinical Impression(s) from Imaging Studies Abdomen/Pelvis CT 05/21/24 14:37 IMPRESSION: No acute findings in the abdomen or pelvis. Slight increase in diameter of the large adnexal cyst, currently 7.7 cm. Colonic fecal burden consistent with clinical constipation. Stable 11 mm peripherally enhancing lesion right lobe liver. Electronically Signed: Kye Espinosa MD at 16:47 EDT , Discharge Plan Triage Chief Complaint: Abd Pain ED Provider: Wilbert Avilez Dx/Rx/DC Orders Clinical Impression: Abdominal pain, History of ischemic colitis, Acute constipation Instructions: Abdominal Pain, ED Constipation (Adult) Prescriptions: No Action lisinopril 20 mg tablet 20 mg PO DAILY acetaminophen [Tylenol] 325 mg Tablet 650 mg PO Q4H PRN (Reason: Pain) calcium carbonate-vitamin D3 600 mg-5 mcg (200 unit) Tablet 1 tab PO DAILY pantoprazole 40 mg Tablet,Delayed Release (Dr/Ec) 40 mg PO DAILY Qty: 30 0RF docusate sodium [Colace] 100 mg capsule 100 mg PO BID PRN ferrous sulfate [Feosol] 325 mg (65 mg iron) tablet 325 mg PO BID polyethylene glycol 3350 [ClearLax] 17 gram/dose powder 17 g PO DAILY PRN (Reason: constipation) sennosides [Evac-U-Gen (sennosides)] 8.6 mg tablet 8.6 mg PO DAILY PRN (Reason: constipation) metronidazole 500 mg tablet 500 mg PO Q8H 3 Days Qty: 9 0RF lorazepam 0.5 mg Tablet 0.5 mg PO QHS PRN (Reason: Sleep) 3 Days Qty: 3 0RF Primary Care Provider: Rolf Peck Referrals: Rolf Peck MD [Primary Care Provider] - 3-5 Days if not improving Activity Restrictions/Additional Instructions: Your CAT scan labs look good other than you have constipation. GoLytely one, 8 ounce glass every hour until you have a large bowel movement. May choose to start that tomorrow morning. Follow-up with your doctor if not improving or return if worse. Print Language: Syrian Disposition Disposition: Home, Self Care
[2024-05-21 14:57] LABS: Absolute Lymphocyte Count 2.92 X10^3/uL (0.83-4.51); Absolute Neutrophil Count 3.8 X10^3/uL (2.0-7.7); Basophil# 0.05 X10^3/uL; Basophil% 0.7 % (0-1); Eosinophil# 0.14 X10^3/uL; Eosinophils% 1.8 % (0-5); Hemoglobin 10.7 g/dL (12.0-15.0); Lymphocyte # 2.92 X10^3/ul (0.83-4.51); Lymphocyte % 38.5 % (19-41); Mean Corp Hgb Conc 32.4 g/dL (32-36); Mean Corpuscular Hgb 30.3 pg (27.0-32.0); Mean Corpuscular Volume 93.5 fL (81-99); Mean Platelet Vol. 9.3 fl (6.2-12.0); Monocyte# 0.64 X10^3/uL; Monocyte% 8.4 % (0-10); NRBC Flagged by Analyzer 0 % (0-5); Neutrophil # 3.82 X10^3/uL (2.7-7.7); Neutrophil % 50.3 % (47-70); Platelet Count 290 K/mm3 (150-450); RBC Distribution Width CV 17.1 % (11.6-14.6); RBC Distribution Width SD 58.5 fl (35.1-43.9); Red Blood Count 3.53 M/mm3 (4.2-5.4); White Blood Count 7.6 K/mm3 (4.4-11.0)
[2024-05-21 15:13] LABS: ALB/GLOB Ratio 1.1 RATIO (0.9-2.4); AST(SGOT) 17 U/L (15-37); Alanine Aminotransfer ALT/SGPT 18 U/L (13-56); Albumin, Serum 3.3 g/dL (3.2-5.0); Alkaline Phosphatase 52 U/L (45-117); Anion Gap 6 (5-15); BUN 20 mg/dL (7-18); BUN/Creat Ratio 30.2 RATIO (10-20); Calcium,Total 9.4 mg/dL (8.5-10.1); Chloride 97 mmol/L (98-107); Creatinine, Serum 0.66 mg/dL (0.55-1.02); EST Glomerular Filtration Rate 91 mL/min (>60); Est Glom Filt Rate - Afr Amer 110 mL/min (>60); Estimated Creatinine Clearance 45.73 ml/min; Globulin 3.1 g/dL (2.2-4.2); Glucose 99 mg/dL (74-106); Lipase 37 U/L (13-75); Potassium 4.8 mmol/L (3.5-5.1); Protein, Total 6.4 g/dL (6.4-8.2); Sodium Level 132 mmol/L (136-145)
[2024-05-21 15:22] VITALS: BP 151/88; PULSE 54
[2024-05-21 15:36] LABS: Lactic Acid 1.1 mmol/L (0.4-1.9)
[2024-05-21 15:37] LABS: Mucous, Urine 0 SEEN /hpf (<or=2+); White Blood Cells 0 SEEN /hpf (0-5)
[2024-05-21 16:06] LABS: Color, Urine Yellow (Yellow); Glucose, Dipstick Normal (Normal); Ketone-Dipstick Negative (Negative); Leukocyte Esterase-Dipstick Negative /ul (Negative); Nitrite-Dipstick Negative (Negative); Occult Blood-Urine Negative /ul (Negative); Protein-Dipstick Negative (Negative); Urine Bilirubin Dipstick Negative (Negative); Urine Clarity Sl. Cloudy (Clear); Urine Urobilinogen Normal (Normal)
[2024-05-21 16:23] LABS: Amylase 42 U/L (25-115)
[2024-05-21 16:56] LABS: Amorphous Sediment 2+; Red Blood Cells-Urine 0-5 SEEN /hpf (0-5); Squamous Epithelial Cells - UA 0-5 SEEN /hpf (5-10)
[2024-05-21 16:57] LABS: Bacteria 1+ /hpf (None Seen)
[2024-05-21 17:00] VITALS: BP 186/88; PULSE 55; RESP 17; O2SAT 96
[2024-05-21] MEDS: Electrolyte Solution/Peg's 4000 ML 2000 ML PO (18:37)
--- NOTE | 2024-05-21 20:36 | ED.RN ---
PATIENT LEFT GOLYTLE HERE. LEFT MESSAGE ON CELL AND [facility] CELL.
== END 2024-05-21 18:00 | disposition home or self-care (01) ==
PROVIDERS: Emergency Provider Emergency Medicine; PCP Family Medicine; Visit Provider Emergency Medicine
DX: R10.32 Left lower quadrant pain (principal); I10 Essential (primary) hypertension; Z87.891 Personal history of nicotine dependence; K59.00 Constipation, unspecified; K55.9 Vascular disorder of intestine, unspecified; Z79.899 Other long term (current) drug therapy; Z98.41 Cataract extraction status, right eye; Z98.42 Cataract extraction status, left eye; Z96.619 Presence of unspecified artificial shoulder joint
CPT/HCPCS: 74177; 80053; 81001; 82150; 83605; 83690; 85025; 99283; Q9967; A4216

== ENCOUNTER 2024-06-11 22:33 | Inpatient (IN) | payer MEDICARE, OTHER, SELFPAY ==
[2024-06-11 22:34] VITALS: BP 149/91; PULSE 68; RESP 18; TEMP 36.5; O2SAT 95; BMI 19.1
--- NOTE | 2024-06-11 23:08 | CT_ITS ---
INDICATION: CONCERN FOR GI BLEED EXAMINATION: CTA abdomen and pelvis - TECHNIQUE: Routine abdominal CT angiogram protocol was performed with IV contrast. MIP images provided. The protocol utilizes one or more of the following dose reduction techniques: automated exposure control, adjustment of mA and/or kV according to patient size,and/or use of iterative reconstruction technique. IV Contrast dosage and agent: RADIATION DOSAGE (If Supplied By Facility): CTDIvol = ( 24.99 ) mGy, DLP = ( 344.83 ) mGycm COMPARISON: CT Abdomen/PelvisSep 2023 3:50pm FINDINGS: LOWER CHEST: Bibasilar dependent changes. No cardiomegaly or pericardial effusion. LIVER: Increased size of 1.4 cm previously 1.1 cm peripherally enhancing lesion right lobe liver suggesting a metastatic lesion. GALLBLADDER AND BILIARY TREE: No intra- or extrahepatic biliary ductal dilation. PANCREAS: No focal cystic or solid mass. SPLEEN: Normal size without focal cystic or solid mass. ADRENAL GLANDS: No nodules. KIDNEYS AND URETERS: Uniform enhancement. No hydronephrosis. PERITONEUM: No ascites or free air. BOWEL: No evidence of acute appendicitis. No stomach or bowel distension. No focal inflammatory change. Diffusely increased colonic fecal burden. LYMPH NODES: No enlarged mesenteric or retroperitoneal lymph nodes. VESSELS: Aorta is non-dilated. URINARY BLADDER: Unremarkable. REPRODUCTIVE ORGANS: 7.7 cm adnexal cyst . ABDOMINAL WALL: Bilateral bowel containing inguinal hernias, left side larger than right. No strangulation or obstruction. BONES: No lytic or blastic abnormality. Stable appearance right hip arthroplasty. CT/CTA Abd/Pelvis W/WO Contrast IMPRESSION: Increased size of 1.4 cm previously 1.1 cm peripherally enhancing lesion right lobe liver suggesting a metastatic lesion. Large amount of stool in the colon. Electronically Signed: Davidson Bella MD at 1:05 EDT ,
[2024-06-11 23:39] LABS: Absolute Lymphocyte Count 2.47 X10^3/uL (0.83-4.51); Absolute Neutrophil Count 2.7 X10^3/uL (2.0-7.7); Basophil# 0.05 X10^3/uL; Basophil% 0.8 % (0-1); Eosinophil# 0.16 X10^3/uL; Eosinophils% 2.7 % (0-5); Hematocrit 30.8 % (37-47); Hemoglobin 10.1 g/dL (12.0-15.0); Lymphocyte # 2.47 X10^3/ul (0.83-4.51); Lymphocyte % 41.6 % (19-41); Mean Corp Hgb Conc 32.8 g/dL (32-36); Mean Corpuscular Hgb 30.6 pg (27.0-32.0); Mean Corpuscular Volume 93.3 fL (81-99); Mean Platelet Vol. 8.8 fl (6.2-12.0); Monocyte# 0.55 X10^3/uL; Monocyte% 9.3 % (0-10); NRBC Flagged by Analyzer 0 % (0-5); Neutrophil # 2.71 X10^3/uL (2.7-7.7); Neutrophil % 45.6 % (47-70); Platelet Count 276 K/mm3 (150-450); RBC Distribution Width CV 16.9 % (11.6-14.6); RBC Distribution Width SD 57.5 fl (35.1-43.9); White Blood Count 5.9 K/mm3 (4.4-11.0)
[2024-06-11 23:49] LABS: Prothrombin Time (Protime)PT. 13.4 SECONDS (11.7-14.9)
[2024-06-11 23:52] LABS: Anion Gap 7 (5-15); BUN 28 mg/dL (7-18); BUN/Creat Ratio 42.8 RATIO (10-20); Calcium,Total 9.1 mg/dL (8.5-10.1); Chloride 100 mmol/L (98-107); Creatinine, Serum 0.65 mg/dL (0.55-1.02); EST Glomerular Filtration Rate 92 mL/min (>60); Est Glom Filt Rate - Afr Amer 112 mL/min (>60); Estimated Creatinine Clearance 43.88 ml/min; Glucose 106 mg/dL (74-106); Potassium 4.5 mmol/L (3.5-5.1); Sodium Level 133 mmol/L (136-145)
[2024-06-12 00:09] LABS: Lactic Acid 0.6 mmol/L (0.4-1.9)
[2024-06-12] MEDS: 0.9% Normal Saline (500mL Bag) 500 ML 999 ML IV (00:41)
[2024-06-12 00:42] VITALS: BP 165/85
[2024-06-12] MEDS: Pantoprazole Sodium 80 MG in 0.9% Normal Saline (50mL Bag) 15 ML 420 MG IV BOLUS (01:11)
[2024-06-12] MEDS: Pantoprazole Sodium 80 MG in 0.9% Normal Saline (100mL Bag) 80 ML 10 MG CONT INF ×3 (01:11→23:36)
--- NOTE | 2024-06-12 02:16 | PCM.HP.STD ---
[facility] - General General Date of Admission: 06/12/24 Date of Service: 06/12/24 Chief Complaint: LGIB with Maroon Stools. [facility] Narrative GEORGINA LEONARD, is a 83 F with a past medical history of essential hypertension, former tobacco abuse, essential tremor; on primidone, history of migraine headaches, generalized anxiety; on as needed nightly lorazepam, DENISE, history of hyponatremia, history of bilateral cataract extraction, listed allergy to prednisone and naproxen, chronic constipation; on daily senna and MiraLAX, history of colonoscopy, GERD; on Protonix, osteoarthritis; with history of Right shoulder replacement, Right femur fracture and chronic back pain on as needed oxycodone and scheduled daily celecoxib and history of LGIB with abdominal pain and hypokalemia due to chronic ischemic colitis previously evaluated by Dr. Veloz of gastroenterology who was admitted here from April 12, 2024 to April 17, 2024 who re-presents to [facility] ER complaining of LGIB with maroon-colored stools. Ms. Leonard reports her symptoms began approximately 1 hour prior to arrival when she had severe pressure sensation in the sigmoid region of her colon followed by maroon-colored stools. She also admits to 7/10 back pain that was new and constant. She denies associated fever, chills, nausea, vomiting, cramping abdominal pain, chest pain or SOB. In the ER she underwent a CTA of the abdomen and pelvis which did not show active bleeding but did reveal an increase size of a ~1.4 cm (previously ~1.1 cm) peripherally enhancing lesion in the Right lobe of the liver suggesting a metastatic lesion with a large amount of stool noted in the colon along with Hemoccult positive stools consistent with recurrent LGIB with elevated BUN of 28 mg/dL and creatinine of 0.65 mg/dL present on admission likely due at least in part to Adverse Drug Reaction to Celecoxib with a hemoglobin of 10.1 g/dL present on admission and she was then admitted to the PCU for ongoing care for stay that expected to extend beyond 2 midnights. [facility] Medical History Acute lower gastrointestinal bleeding Hyponatremia History of echocardiogram Wears glasses Post-menopausal Anxiety Alcohol use History of steroid therapy Ambulates with cane Arthritis Back pain Migraine headache Constipation Former smoker Leg cramps History of pain when walking History of fracture of leg Hypertension Home Medications ?Medication ?Instructions ?Recorded ?Last Taken ?Type lisinopril 20 mg tablet 20 mg PO DAILY blood pressure 10/23/21 12/09/23 History acetaminophen 325 mg tablet 650 mg PO Q4H PRN Pain 09/20/22 09/29/22 History (Tylenol) calcium 600 mg (as 1 tab PO DAILY supplement 09/20/22 12/09/23 History carbonate)-vitamin D3 5 mcg (200 unit) tablet pantoprazole 40 mg tablet,delayed 40 mg PO DAILY #30 tabs 12/13/23 Unknown Rx release docusate sodium 100 mg capsule 100 mg PO BID PRN 03/07/24 Unknown History (Colace) ferrous sulfate 325 mg (65 mg 325 mg PO BID 03/07/24 Unknown History iron) tablet (Feosol) polyethylene glycol 3350 17 17 g PO DAILY PRN constipation 04/12/24 Unknown History gram/dose oral powder (ClearLax) sennosides 8.6 mg tablet 8.6 mg PO DAILY PRN constipation 04/12/24 Unknown History (Evac-U-Gen (sennosides)) lorazepam 0.5 mg tablet 0.5 mg PO QHS PRN Sleep 14 days 05/30/24 Unknown Rx #14 tabs celecoxib 200 mg capsule 200 mg PO DAILY 06/12/24 Unknown History oxycodone 5 mg tablet 5 mg PO Q6H PRN pain 06/12/24 Unknown History primidone 50 mg tablet 50 mg PO QHS 06/12/24 Unknown History Allergy/AdvReac Type Severity Reaction Status Date / Time venom-honey bee Allergy Hives Verified 06/11/24 22:36 venom-wasp Allergy Hives Verified 06/11/24 22:36 naproxen AdvReac Other Verified 06/11/24 22:36 prednisone AdvReac Other Verified 06/11/24 22:36 Surgical History H/O shoulder replacement Hx of right cataract extraction Hx of left cataract extraction Hx of colonoscopy Social History housing: house Smoking Status: Former smoker ROS ROS Narrative Review of systems: General: Patient denies fever or chills. HENT: Denies headache, denies stuffy nose, denies sore throat EYES: Denies changes in vision or discharge from eyes. Resp: Denies cough, denies shortness of breath Cardiac: Denies chest pain, palpitations or heart racing. GI: Patient admits to maroon stools but she denies abdominal pain, denies changes in bowel, denies nausea or vomiting. : Denies changes in urination Extremity: Denies swelling Musculoskeletal: Feels somewhat generally weak and unwell but she denies arthralgias or myalgias. Neuro: Patient denies headache, paresthesias or focal neurologic deficits. Heme: Patient admits to maroon-colored stools. She denies history of previous reddish discoloration of stools. Skin: Denies rashes Psychiatric: No complaints voiced related to uncontrolled depression or anxiety. Endocrine: No polyuria, polydipsia or polyphagia. The rest of the 14 point ROS was negative except for positives in HPI. Vital Signs Vital Signs Vital Signs: 06/11/24 22:34 06/12/24 00:42 Temperature 97.7 F L Temperature Source Temporal Pulse Rate 68 Respiratory Rate 18 Blood Pressure 149/91 H 165/85 H Blood Pressure Mean 110 111 Pulse Ox 95 Oxygen Delivery Method Room Air Weight Weight: 111 lb 1.808 oz Body Mass Index (BMI) 19.1 Physical Exam Const alert, oriented x3, no apparent distress, average body habitus and healthy appearing General Appearance: cooperative HEENT normocephalic, head/scalp atraumatic, hearing grossly normal bilaterally and moist oral mucous membranes Eyes PERRL and EOMs intact bilaterally Neck no lymphadenopathy and supple Resp normal respiratory effort, no retractions, no use of accessory muscles and clear to auscultation bilaterally Cardio regular rate and regular rhythm GI normal to inspection, nondistended, normoactive bowel sounds, soft to palpation, non-tender and non-distended Extremity normal to inspection, full ROM and no clubbing, cyanosis or edema Skin Skin Narrative: Patient has no evidence of rash, abscess or jaundice. Neuro oriented x3, CN's II-XII intact bilaterally, moves all extremities and no focal motor deficits Sensorium / Orientation: awake, alert, oriented to person, oriented to place and oriented to time Speech: speech normal Psych affect normal Results Medical Records Data Attestation: I reviewed the patient's medical records Lab / Micro Data Attestation: I reviewed the patient's lab results. 06/11/24 23:30 06/11/24 23:30 Labs: Laboratory Results - last 24 hr 06/11/24 23:30: WBC 5.9, RBC 3.30 L, Hgb 10.1 L, Hct 30.8 L, MCV 93.3, MCH 30.6, MCHC 32.8, RDW Std Deviation 57.5 H, RDW Coeff of Cas 16.9 H, Plt Count 276, MPV 8.8, Immature Gran % (Auto) 0.000, Neut % (Auto) 45.6 L, Lymph % (Auto) 41.6 H, [place] % (Auto) 9.3, Eos % (Auto) 2.7, Baso % (Auto) 0.8, Absolute Neuts (auto) 2.7, Absolute Lymphs (auto) 2.47, Nucleated RBC % 0, PT 13.4, INR 1.0, APTT 31.0, Sodium 133 L, Potassium 4.5, Chloride 100, Carbon Dioxide 26.0, Anion Gap 7, BUN 28 H, Creatinine 0.65, Estim Creat Clear Calc 43.88, Est GFR (MDRD) Af Amer 112, Est GFR (MDRD) Non-Af 92, BUN/Creatinine Ratio 42.8 H, Glucose 106, Lactic Acid 0.6, Calcium 9.1 Micro: Microbiology 06/12/24 00:47 Stool Stool Occult Blood (TERRI) - Final Occult Blood Positive Imaging Radiology Impression Abdomen/Pelvis CTA 06/11/24 23:08 IMPRESSION: Increased size of 1.4 cm previously 1.1 cm peripherally enhancing lesion right lobe liver suggesting a metastatic lesion. Large amount of stool in the colon. Electronically Signed: Davidson Bella MD at 1:05 EDT , Assessment & Plan Assessment/Plan (1) GI bleed: QUALIFIERS: GI bleed type/associated pathology: anorectal hemorrhage Qualified Code(s): K62.5 - Hemorrhage of anus and rectum (2) Adverse drug reaction: QUALIFIERS: Encounter type: initial encounter Qualified Code(s): T50.905A - Adverse effect of unspecified drugs, medicaments and biological substances, initial encounter (3) Liver lesion, right lobe: (4) History of ischemic colitis: (5) Back pain: QUALIFIERS: Back pain laterality: unspecified Back pain location: low back pain Chronicity: chronic Sciatica presence: without sciatica Qualified Code(s): M54.50 - Low back pain, unspecified; G89.29 - Other chronic pain (6) Chronic constipation: (7) GERD (gastroesophageal reflux disease): QUALIFIERS: Esophagitis presence: esophagitis presence not specified Qualified Code(s): K21.9 - Gastro-esophageal reflux disease without esophagitis PLAN: Plan 1. Recurrent LGIB with maroon-colored stools with elevated BUN of 28 mg/dL and creatinine of 0.65 mg/dL present on admission - Admit to PCU. Keep strict n.p.o. and continue IV Protonix drip begun in the ER. Give IV Zofran as needed nausea or vomiting. Give morphine IV as needed for severe (level 6-10/10) pain. Type and screen blood and transfuse for hemoglobin less than 7 g/dL. This patient would likely benefit from pill enteroscopy with recurrent LGIB and unrevealing CTA of the abdomen pelvis done this admission. Finally, we will consult Dr. Veloz of gastroenterology to see this patient on rounds in the a.m. for further recommendations with help appreciated in advance. 2. Adverse Drug Reaction to Celecoxib likely contributing to #1 - Hold Celecoxib, NSAIDs and steroids until further notice. 3. CTA of the abdomen and pelvis which did not show active bleeding but did reveal an increase size of a ~1.4 cm (previously ~1.1 cm) peripherally enhancing lesion in the Right lobe of the liver suggesting a metastatic lesion with a large amount of stool noted in the colon complicating #1 & #2 - Noted. Patient should be considered for possible liver biopsy this admission when okay with GI. 4. History of LGIB with abdominal pain and hypokalemia due to chronic ischemic colitis previously evaluated by Dr. Veloz of gastroenterology who was admitted here from April 12, 2024 to April 17, 2024 compounding #1 - #3 - Noted. 5. Osteoarthritis; with history of Right shoulder replacement, Right femur fracture and chronic back pain on as needed oxycodone and scheduled daily celecoxib adding to the medical complexity of #1 - #4 - Noted. Celecoxib should likely not be restarted in this patient with recurrent LGIB. 6. Chronic constipation; on daily senna and MiraLAX adding to the pathology of #1 - #5 - Noted. 7. GERD; on Protonix - Continue Protonix as IV drip as noted above. 8. Essential hypertension - Give IV Hydralazine prn for systolic blood pressure > 160 mmHg. 9. Former tobacco abuse - Noted. 10. Essential tremor; on primidone - Restart this agent when patient resumes oral intake. 11. History of migraine headaches - Noted with no complaints of headache at this time. 12. Generalized anxiety; on as needed nightly lorazepam - Noted. Give low-dose IV Ativan prn. 13. DENISE - Stable with hemoglobin of 10.1 g/dL this admission. 14. History of bilateral cataract extraction - Noted for the sake of completeness. 15. History of hyponatremia - Noted with serum sodium of 133 mmol/L present on admission. 16. Listed allergy to prednisone and naproxen - We will avoid these classes of agents. 17. History of colonoscopy - Noted. 18. DVT prophylaxis - SCD's catrina with recent LGIB outlined in #1. Total time: Approximately 75 minutes. Charges/Coding Visit Charges Inpatient E&M: 18539 Init Hosp L3
--- NOTE | 2024-06-12 02:16 | EX.ED.DYSGE1 ---
HPI History of Present Illness Chief Complaint: GI Bleed Informant: patient and EMS Narrative Narrative: Patient is an 83-year-old female with past medical history of hypertension as well as previous bouts of ischemic colitis and chronic arthritis for which she takes Celebrex daily. She states she was admitted to the hospital in December and March of this year secondary to internal bleeding. She states she spent multiple months at rehab following a right hip replacement. She states she is recently returned home and has been doing well with physical therapy and Occupational Therapy. She states she had those today and after performing those activities had a good dinner with a cheeseburger. She states a few hours later her stomach felt upset and she went to the bathroom and noticed it to be dark/bloody. She denies taking any type of anticoagulation such as Xarelto or Eliquis or Plavix but because of her previous history of GI bleed had concerned this would worsen and therefore EMS was called and she was brought in for evaluation [facility] Medical History Acute lower gastrointestinal bleeding Hyponatremia History of echocardiogram Wears glasses Post-menopausal Anxiety Alcohol use History of steroid therapy Ambulates with cane Arthritis Back pain Migraine headache Constipation Former smoker Leg cramps History of pain when walking History of fracture of leg Hypertension Home Medications ?Medication ?Instructions ?Recorded ?Last Taken ?Type lisinopril 20 mg tablet 20 mg PO DAILY blood pressure 10/23/21 12/09/23 History acetaminophen 325 mg tablet 650 mg PO Q4H PRN Pain 09/20/22 09/29/22 History (Tylenol) calcium 600 mg (as 1 tab PO DAILY supplement 09/20/22 12/09/23 History carbonate)-vitamin D3 5 mcg (200 unit) tablet pantoprazole 40 mg tablet,delayed 40 mg PO DAILY #30 tabs 12/13/23 Unknown Rx release docusate sodium 100 mg capsule 100 mg PO BID PRN 03/07/24 Unknown History (Colace) ferrous sulfate 325 mg (65 mg 325 mg PO BID 03/07/24 Unknown History iron) tablet (Feosol) polyethylene glycol 3350 17 17 g PO DAILY PRN constipation 04/12/24 Unknown History gram/dose oral powder (ClearLax) sennosides 8.6 mg tablet 8.6 mg PO DAILY PRN constipation 04/12/24 Unknown History (Evac-U-Gen (sennosides)) lorazepam 0.5 mg tablet 0.5 mg PO QHS PRN Sleep 14 days 05/30/24 Unknown Rx #14 tabs celecoxib 200 mg capsule 200 mg PO DAILY 06/12/24 Unknown History oxycodone 5 mg tablet 5 mg PO Q6H PRN pain 06/12/24 Unknown History primidone 50 mg tablet 50 mg PO QHS 06/12/24 Unknown History Allergy/AdvReac Type Severity Reaction Status Date / Time venom-honey bee Allergy Hives Verified 06/11/24 22:36 venom-wasp Allergy Hives Verified 06/11/24 22:36 naproxen AdvReac Other Verified 06/11/24 22:36 prednisone AdvReac Other Verified 06/11/24 22:36 Surgical History H/O shoulder replacement Hx of right cataract extraction Hx of left cataract extraction Hx of colonoscopy Social History housing: house Smoking Status: Former smoker ROS ROS ED Constitutional Constitutional ED: Denies chills or fever(s) Eyes Eyes: Denies blurry vision or change in vision ENT ENT ED: Denies sore throat Cardiovascular Cardiovascular: Denies chest pain, palpitations or racing heartbeat Respiratory/Chest Respiratory/Chest: Denies cough or dyspnea Gastrointestinal Gastrointestinal: Reports melena; Denies abdominal pain, diarrhea, nausea or vomiting Genitourinary Genitourinary ED: Denies dysuria Musculoskeletal Musculoskeletal: Denies myalgias Integumentary Denies rash Neurologic Neurologic: Denies headache(s) or weakness Hematologic/Lymphatic Hematologic/Lymphatic: Denies easy bleeding or easy bruising EXAM Physical Exam Const Vital Signs: 06/11/24 22:34 06/12/24 00:42 Temperature 97.7 F L Temperature Source Temporal Pulse Rate 68 Respiratory Rate 18 Blood Pressure 149/91 H 165/85 H Blood Pressure Mean 110 111 Pulse Ox 95 Oxygen Delivery Method Room Air Positive well nourished and well developed General Appearance ED: well developed; Negative for pallor HEENT HEENT Narrative: Normocephalic atraumatic Eyes PERRL and EOMs intact bilaterally General Eye ED: Negative for pale conjunctiva or scleral icterus Neck supple Neck Narrative: No nuchal rigidity or meningeal signs Chest Wall palpation of chest normal Resp normal respiratory effort and clear to auscultation bilaterally Resp Narrative: No nasal flaring retractions tachypnea or accessory muscle use Cardio regular rate and regular rhythm Rate: other Other Details: Regular rate and rhythm Radial and carotid pulses are equal and symmetric GI normal to inspection, nondistended, normoactive bowel sounds, non-tender, non-distended and no masses GI Narrative: No voluntary guarding or rigidity or pulsatile mass Auscultation: normoactive bowel sounds Palpation: soft Narrative: Rectal exam shows scant nonbleeding nonthrombosed external hemorrhoid. No anal fissure. Rectal tone is normal. No internal masses palpated. Stool is maroon in color and Hemoccult positive. Extremity normal to inspection Neuro oriented x3, CN's II-XII intact bilaterally and no sensory deficits noted Sensorium / Orientation: alert Motor Exam: strength 5/5 throughout Psych mental status grossly normal Skin no rashes or lesions noted Skin Narrative: Capillary refill is less than 3 seconds General Skin Exam: Negative for jaundice or pallor MDM MDM MDM Narrative Medical decision making narrative: Patient arrived to the ER hypertensive but has a past medical history of this. She has a soft nontender nonsurgical abdomen but was a report of previous ischemic colitis and dark stool there is concern for GI bleed. There is also potential that she will have acute blood loss anemia or a potential infection such as colitis versus diverticulitis. Therefore basic labs and a CTA were obtained. Hemoglobin was 10.1 and chart review reveals this is near her baseline and well above a transfusion value of 7. Platelets were normal at 276 indicating no thrombocytopenia or need for platelet transfusion. Patient did not have any signs of acute kidney injury or severe electrolyte abnormality. However her BUN is elevated at 28 which is increased from a value of 15 that was obtained on June 01 which does correlate with upper GI bleed. Patient was started on Protonix bolus and drip secondary to this. CTA revealed no obvious source of bleeding. However based on her previous events of ischemic colitis and breakthrough bleeding and the fact she has maroon-colored stools this evening GI was contacted. Gastroenterology/Dr. Veloz recommends that based on her history and breakthrough bleeding that she does need to be admitted for continued observation. Therefore medicine was contacted and agrees to accept the patient at this time for further care. However as she is hemodynamically stable and has a hemoglobin of 10 there is no need for emergent blood transfusion and as she is not on a true blood thinner such as Eliquis Xarelto or Pradaxa there is no need for administration of Kcentra History & Record Review Discussion w/independent historian: Patient Lab Data Attestation: I reviewed the patient's lab results. Labs: Laboratory Results - last 24 hr 06/11/24 23:30 WBC 5.9 RBC 3.30 L Hgb 10.1 L Hct 30.8 L MCV 93.3 MCH 30.6 MCHC 32.8 RDW Std Deviation 57.5 H RDW Coeff of Cas 16.9 H Plt Count 276 MPV 8.8 Immature Gran % (Auto) 0.000 Neut % (Auto) 45.6 L Lymph % (Auto) 41.6 H [place] % (Auto) 9.3 Eos % (Auto) 2.7 Baso % (Auto) 0.8 Absolute Neuts (auto) 2.7 Absolute Lymphs (auto) 2.47 Nucleated RBC % 0 PT 13.4 INR 1.0 APTT 31.0 Sodium 133 L Potassium 4.5 Chloride 100 Carbon Dioxide 26.0 Anion Gap 7 BUN 28 H Creatinine 0.65 Estim Creat Clear Calc 43.88 Est GFR (MDRD) Af Amer 112 Est GFR (MDRD) Non-Af 92 BUN/Creatinine Ratio 42.8 H Glucose 106 Lactic Acid 0.6 Calcium 9.1 Radiography Diagnostic Testing: Clinical Impression(s) from Imaging Studies Abdomen/Pelvis CTA 06/11/24 23:08 IMPRESSION: Increased size of 1.4 cm previously 1.1 cm peripherally enhancing lesion right lobe liver suggesting a metastatic lesion. Large amount of stool in the colon. Electronically Signed: Davidson Bella MD at 1:05 EDT , Management Discussion w/another healthcare provider: Hospitalist and Senior Technical Recruiter Discharge Plan Dx/Rx/DC Orders Clinical Impression: GI bleed, Liver lesion, right lobe, History of ischemic colitis, Chronic constipation, GERD (gastroesophageal reflux disease), Hypertension Disposition Disposition: [facility]
[2024-06-12 03:11] VITALS: BP 159/89; PULSE 62; RESP 14; TEMP 36.6; O2SAT 97
[2024-06-12 03:31] VITALS: BMI 18.8
[2024-06-12 03:44] VITALS: BP 180/85; PULSE 59; RESP 16; TEMP 36.3; O2SAT 100
[2024-06-12] MEDS: 0.9% Normal Saline (1000mL) 1,000 ML 70 ML IV (03:55)
[2024-06-12 04:50] LABS: Absolute Lymphocyte Count 2.32 X10^3/uL (0.83-4.51); Absolute Neutrophil Count 2.4 X10^3/uL (2.0-7.7); Basophil# 0.05 X10^3/uL; Basophil% 0.9 % (0-1); Eosinophil# 0.21 X10^3/uL; Eosinophils% 3.8 % (0-5); Hematocrit 31.3 % (37-47); Hemoglobin 10.2 g/dL (12.0-15.0); Lymphocyte # 2.32 X10^3/ul (0.83-4.51); Lymphocyte % 41.7 % (19-41); Mean Corp Hgb Conc 32.6 g/dL (32-36); Mean Corpuscular Hgb 30.7 pg (27.0-32.0); Mean Corpuscular Volume 94.3 fL (81-99); Mean Platelet Vol. 9.3 fl (6.2-12.0); Monocyte# 0.54 X10^3/uL; Monocyte% 9.7 % (0-10); NRBC Flagged by Analyzer 0 % (0-5); Neutrophil # 2.44 X10^3/uL (2.7-7.7); Neutrophil % 43.7 % (47-70); Platelet Count 295 K/mm3 (150-450); RBC Distribution Width CV 17.1 % (11.6-14.6); RBC Distribution Width SD 59.5 fl (35.1-43.9); Red Blood Count 3.32 M/mm3 (4.2-5.4); White Blood Count 5.6 K/mm3 (4.4-11.0)
[2024-06-12 05:25] LABS: ALB/GLOB Ratio 1.2 RATIO (0.9-2.4); AST(SGOT) 11 U/L (15-37); Alanine Aminotransfer ALT/SGPT 14 U/L (13-56); Albumin, Serum 3.4 g/dL (3.2-5.0); Alkaline Phosphatase 42 U/L (45-117); Anion Gap 4 (5-15); BUN 23 mg/dL (7-18); BUN/Creat Ratio 42.8 RATIO (10-20); Calcium,Total 8.9 mg/dL (8.5-10.1); Chloride 100 mmol/L (98-107); Creatinine, Serum 0.54 mg/dL (0.55-1.02); EST Glomerular Filtration Rate 116 mL/min (>60); Est Glom Filt Rate - Afr Amer 140 mL/min (>60); Estimated Creatinine Clearance 43.44 ml/min; Globulin 2.9 g/dL (2.2-4.2); Glucose 89 mg/dL (74-106); Magnesium 1.8 mg/dL (1.6-2.6); Phosphorus 3.1 mg/dL (2.5-4.9); Potassium 3.8 mmol/L (3.5-5.1); Protein, Total 6.3 g/dL (6.4-8.2); Sodium Level 131 mmol/L (136-145)
[2024-06-12 09:00] VITALS: BP 132/87; PULSE 60; RESP 16; TEMP 36.6; O2SAT 97
--- NOTE | 2024-06-12 12:00 | CASEMGMT ---
DAWN DODSON Assessment: Face to Face with pt for initial transition planning/care coordination assessment. DAWN DODSON introduced self and role at [facility], pt voices understanding and consents to assessment. Pt is A&O x4 and answers all questions appropriately at this time. Pt lying in bed in no distress. Care providers, pharmacy, and demographics verified/updated. Strata: 2 Admitting Dx: LGIB with Maroon stools and adverse drug reaction PCP: [facility] Specialists: Kofi, Pain Management; Soni, Manager Mortgage; Adelina RA; Roman, Orthopedic [facility] Insurance: [employer] Prescription Benefit: yes LNOK: Ita, Daughter; VANESSA Mai Living Arrangements: Pt lives alone in a 1 story home. ADLs: Pt needs assistance. Pt has caregiver that comes in 2 times a week for 3 hours. Pt states has HH PT and OT from [facility]. Transportation: Pt utilizes [facility] transportation for appointments, or family provides transportation when needed. DME: shower chair, walker, rollator HHC/SNF: Previously at [facility], recently went home with HH therapy from [facility]. Pt interested in placement, would like to go to [facility], [facility] or [facility]. DAWN DODSON discussed if pt would like short term placement or looking for terminal system operator. Pt states depends on what doctors find here, дмитрий went to visit [facility] and liked it. Pt would like to discuss with family. DAWN DODSON notified SW to follow up with pt tomorrow. Pt states no further concerns/needs. CM to follow. Advised pt to ask CM if any further question/concerns/needs arise, voices understanding. Pt Goal: TBD Plan: TBD, follow therapy for recommendations. Andrea SEYMOUR CM
[2024-06-12] MEDS: FLU VACCINE **HIGH DOSE** TV 24-25 180 MCG/0.5 ML SYRINGE IM (14:53)
[2024-06-12 15:00] VITALS: BP 137/91; PULSE 69; RESP 16; TEMP 36.8; O2SAT 98
--- NOTE | 2024-06-12 20:33 | CON.PCM.GI_ITS ---
HPI Consult Data Date of Consult: 06/12/24 HPI Narrative Reason for Consultation: GI bleed HPI Narrative: GEORGINA HERRERA, is a 83 F with a past medical history of essential hypertension, former tobacco abuse, essential tremor; on primidone, history of migraine headaches, generalized anxiety; on as needed nightly lorazepam, DENISE, history of hyponatremia, history of bilateral cataract extraction, listed allergy to prednisone and naproxen, chronic constipation; on daily senna and MiraLAX, history of colonoscopy, GERD; on Protonix, osteoarthritis; She has a history of Right shoulder replacement, Right femur fracture and chronic back pain on as needed oxycodone and scheduled daily celecoxib and history of LGIB with abdominal pain and hypokalemia due to chronic ischemic colitiswho was admitted here from April 12, 2024 to April 17, 2024 who re- presents to [facility] ER complaining of LGIB with maroon- colored stools. Ms. Herrera reports her symptoms began approximately 1 hour prior to arrival when she had severe pressure sensation in the sigmoid region of her colon followed by maroon-colored stools. She also admits to 7/10 back pain that was new and constant. She denies associated fever, chills, nausea, vomiting, cramping abdominal pain, chest pain or SOB. In the ER she underwent a CTA of the abdomen and pelvis which did not show active bleeding but did reveal an increase size of a ~1.4 cm (previously ~1.1 cm) peripherally enhancing lesion in the Right lobe of the liver suggesting a metastatic lesion with a large amount of stool noted in the colon along with Hemoccult positive stools consistent with recurrent LGIB with elevated BUN of 28 mg/dL and creatinine of 0.65 mg/dL [facility] Medical History Acute lower gastrointestinal bleeding Hyponatremia History of echocardiogram Wears glasses Post-menopausal Anxiety Alcohol use History of steroid therapy Ambulates with cane Arthritis Back pain Migraine headache Constipation Former smoker Leg cramps History of pain when walking History of fracture of leg Hypertension Home Medications ?Medication ?Instructions ?Recorded ?Last Taken ?Type lisinopril 20 mg tablet 20 mg PO DAILY blood pressure 10/23/21 12/09/23 History acetaminophen 325 mg tablet 650 mg PO Q4H PRN Pain 09/20/22 09/29/22 History (Tylenol) calcium 600 mg (as 1 tab PO DAILY supplement 09/20/22 12/09/23 History carbonate)-vitamin D3 5 mcg (200 unit) tablet pantoprazole 40 mg tablet,delayed 40 mg PO DAILY #30 tabs 12/13/23 Unknown Rx release docusate sodium 100 mg capsule 100 mg PO BID PRN 03/07/24 Unknown History (Colace) ferrous sulfate 325 mg (65 mg 325 mg PO BID 03/07/24 Unknown History iron) tablet (Feosol) polyethylene glycol 3350 17 17 g PO DAILY PRN constipation 04/12/24 Unknown History gram/dose oral powder (ClearLax) sennosides 8.6 mg tablet 8.6 mg PO DAILY PRN constipation 04/12/24 Unknown History (Evac-U-Gen (sennosides)) lorazepam 0.5 mg tablet 0.5 mg PO QHS PRN Sleep 14 days 05/30/24 Unknown Rx #14 tabs celecoxib 200 mg capsule 200 mg PO DAILY 06/12/24 Unknown History oxycodone 5 mg tablet 5 mg PO Q6H PRN pain 06/12/24 Unknown History primidone 50 mg tablet 50 mg PO QHS 06/12/24 Unknown History Allergy/AdvReac Type Severity Reaction Status Date / Time venom-honey bee Allergy Hives Verified 06/11/24 22:36 venom-wasp Allergy Hives Verified 06/11/24 22:36 naproxen AdvReac Other Verified 06/11/24 22:36 prednisone AdvReac Other Verified 06/11/24 22:36 Surgical History H/O shoulder replacement Hx of right cataract extraction Hx of left cataract extraction Hx of colonoscopy Social History housing: house Smoking Status: Former smoker ROS ROS Narrative Review of systems: General: Patient denies fever or chills. HENT: Denies headache, denies stuffy nose, denies sore throat EYES: Denies changes in vision or discharge from eyes. Resp: Denies cough, denies shortness of breath Cardiac: Denies chest pain, palpitations or heart racing. GI: Patient admits to maroon stools but she denies abdominal pain, denies changes in bowel, denies nausea or vomiting. : Denies changes in urination Extremity: Denies swelling Musculoskeletal: Feels somewhat generally weak and unwell but she denies arthralgias or myalgias. Neuro: Patient denies headache, paresthesias or focal neurologic deficits. Heme: Patient admits to maroon-colored stools. She denies history of previous reddish discoloration of stools. Skin: Denies rashes Psychiatric: No complaints voiced related to uncontrolled depression or anxiety. Endocrine: No polyuria, polydipsia or polyphagia. The rest of the 14 point ROS was negative except for positives in HPI. Physical Exam Narrative General: Alert, Oriented x3, Cooperative, No apparent distress HEENT: Atraumatic, PERRLA, EOMI, Normocephalic Oral: Moist Mucosa Neck: Supple, No JVD Lungs: Clear to auscultation, Normal air movement, No rhonchi, No wheeze, No rales Cardiovascular: Regular rate, Regular Rhythm, Normal S1, Normal S2, No murmurs Abdomen: Soft, Non Tender, Non-Distended, No Hepato-splenomegaly Extremities: No edema, Capillary Refill Less than 3 Seconds Skin: No rashes, No breakdown Musculoskeletal: No Tenderness to Palpation of Joints or Extremities Neurological: No focal neurological deficits, Motor Exam 5/5 strength throughout, Sensory exam intact to light touch and pain Psych/Mental Status: Normal Affect, Appropriate Lab / Micro Data 06/13/24 05:39 06/12/24 04:16 Labs: Laboratory Results - last 24 hr 06/12/24 04:16: Carcinoembryonic Ag 3.0 06/13/24 05:39: WBC 6.6, RBC 3.22 L, Hgb 9.9 L, Hct 29.9 L, MCV 92.9, MCH 30.7, MCHC 33.1, RDW Std Deviation 58.6 H, RDW Coeff of Cas 17.2 H, Plt Count 279, MPV 9.3, Immature Gran % (Auto) 0.300, Neut % (Auto) 63.4, Lymph % (Auto) 23.1, [place] % (Auto) 8.1, Eos % (Auto) 4.3, Baso % (Auto) 0.8, Absolute Neuts (auto) 4.2, Absolute Lymphs (auto) 1.51, Nucleated RBC % 0 Assessment & Plan Assessment/Plan (1) GI bleed: QUALIFIERS: GI bleed type/associated pathology: anorectal hemorrhage Qualified Code(s): K62.5 - Hemorrhage of anus and rectum (2) Adverse drug reaction: QUALIFIERS: Encounter type: initial encounter Qualified Code(s): T50.905A - Adverse effect of unspecified drugs, medicaments and biological substances, initial encounter (3) Liver lesion, right lobe: (4) History of ischemic colitis: (5) Back pain: QUALIFIERS: Back pain location: low back pain Chronicity: chronic Back pain laterality: unspecified Sciatica presence: without sciatica Q ualified Code(s): M54.50 - Low back pain, unspecified; G89.29 - Other chronic pain (6) Chronic constipation: (7) GERD (gastroesophageal reflux disease): QUALIFIERS: Esophagitis presence: esophagitis presence not specified Qualified Code(s): K21.9 - Gastro-esophageal reflux disease without esophagitis PLAN: Plan Very pleasant 83-year-old with Recurrent LGIB with maroon-colored stools with elevated BUN of 28 mg/dL and creatinine of 0.65 mg/dL present on admission. This is likely upper GI bleed but there is also possibility lower GI bleed with her history of ischemic colitis.- CTA of the abdomen and pelvis which did not show active bleeding but did reveal an increase size of a ~1.4 cm (previously ~1.1 cm) peripherally enhancing lesion in the Right lobe of the liver suggesting a metastatic lesion with a large amount of stool noted in the colon. Charges/Coding Visit Charges Inpatient E&M: 09570 Init Hosp L3
[2024-06-12] MEDS: LORazepam 2 MG/ML Syringe 0.5 MG IV (20:42)
[2024-06-12] MEDS: 0.9% Saline Lock 10 ML Syringe IV (20:43)
[2024-06-12 21:00] VITALS: BP 123/82; PULSE 55; RESP 16; TEMP 36.7; O2SAT 96
[2024-06-13] VITALS (10 sets, daily range): BP systolic 117–159; BP diastolic 68–96; PULSE 51–78; RESP 16–18; TEMP 36.1–37; O2SAT 95–98; BMI 19.5
[2024-06-13 06:13] LABS: Absolute Lymphocyte Count 1.51 X10^3/uL (0.83-4.51); Absolute Neutrophil Count 4.2 X10^3/uL (2.0-7.7); Basophil# 0.05 X10^3/uL; Basophil% 0.8 % (0-1); Eosinophil# 0.28 X10^3/uL; Eosinophils% 4.3 % (0-5); Hematocrit 29.9 % (37-47); Hemoglobin 9.9 g/dL (12.0-15.0); Lymphocyte # 1.51 X10^3/ul (0.83-4.51); Lymphocyte % 23.1 % (19-41); Mean Corp Hgb Conc 33.1 g/dL (32-36); Mean Corpuscular Hgb 30.7 pg (27.0-32.0); Mean Corpuscular Volume 92.9 fL (81-99); Mean Platelet Vol. 9.3 fl (6.2-12.0); Monocyte# 0.53 X10^3/uL; Monocyte% 8.1 % (0-10); NRBC Flagged by Analyzer 0 % (0-5); Neutrophil # 4.16 X10^3/uL (2.7-7.7); Neutrophil % 63.4 % (47-70); Platelet Count 279 K/mm3 (150-450); RBC Distribution Width CV 17.2 % (11.6-14.6); RBC Distribution Width SD 58.6 fl (35.1-43.9); Red Blood Count 3.22 M/mm3 (4.2-5.4); White Blood Count 6.6 K/mm3 (4.4-11.0)
--- NOTE | 2024-06-13 09:52 | PN.HOSP_ITS ---
Subjective Subjective Doing well, continues to have bloody bowel movements no vomiting. Objective Data Objective Data Vital Signs: Vital Signs Temp Pulse Resp BP Pulse Ox O2 Del Method 97.8 F 51 L 18 132/81 H 98 Room Air 06/13/24 04:00 06/13/24 04:00 06/13/24 04:00 06/13/24 04:00 06/13/24 04:00 06/13/24 08:27 Oxygen Delivery Method Room Air Weight: 113 lb 15.664 oz Body Mass Index (BMI) 19.5 Intake & Output: Intake and Output for Last 24 Hours 06/12/24 06/13/24 06/14/24 03:59 03:59 03:59 Intake Total 535 / 535 1420 / 1420 0 / 0 Balance 535 / 535 1420 / 1420 0 / 0 Lab / Micro Data 06/13/24 05:39 06/12/24 04:16 Labs: Laboratory Results - last 24 hr 06/12/24 04:16: Carcinoembryonic Ag 3.0 06/13/24 05:39: WBC 6.6, RBC 3.22 L, Hgb 9.9 L, Hct 29.9 L, MCV 92.9, MCH 30.7, MCHC 33.1, RDW Std Deviation 58.6 H, RDW Coeff of Cas 17.2 H, Plt Count 279, MPV 9.3, Immature Gran % (Auto) 0.300, Neut % (Auto) 63.4, Lymph % (Auto) 23.1, [place] % (Auto) 8.1, Eos % (Auto) 4.3, Baso % (Auto) 0.8, Absolute Neuts (auto) 4.2, Absolute Lymphs (auto) 1.51, Nucleated RBC % 0 Micro: Microbiology 06/12/24 00:47 Stool Stool Occult Blood (TERRI) - Final Occult Blood Positive Physical Exam Narrative General: Alert, Oriented x3, Cooperative, No apparent distress HEENT: Atraumatic, PERRLA, EOMI, Normocephalic Oral: Moist Mucosa Neck: Supple, No JVD Lungs: Clear to auscultation, Normal air movement, No rhonchi, No wheeze, No rales Cardiovascular: Regular rate, Regular Rhythm, Normal S1, Normal S2, No murmurs Abdomen: Soft, Non Tender, Non-Distended, No Hepato-splenomegaly Extremities: No edema, Capillary Refill Less than 3 Seconds Skin: No rashes, No breakdown Musculoskeletal: No Tenderness to Palpation of Joints or Extremities Neurological: No focal neurological deficits, Motor Exam 5/5 strength throughout, Sensory exam intact to light touch and pain Psych/Mental Status: Normal Affect, Appropriate Assessment & Plan Assessment/Plan (1) GI bleed: QUALIFIERS: GI bleed type/associated pathology: anorectal hemorrhage Qualified Code(s): K62.5 - Hemorrhage of anus and rectum (2) Liver lesion, right lobe: PLAN: Plan 1. Recurrent GI bleed with GERD ? BUN is slightly elevated to 28 on admission ? Continue with n.p.o. status ? Continue with Protonix drip ? I will consult gastroenterology for scope ? She does have a history of chronic ischemic colitis however she is mentioning that the stool has maroon-colored and given the elevation in BUN an EGD would be appropriate initially ? She does use Celebrex daily 2. Liver lesion ? This does appear to be stable at 1.1 cm continue to monitor as an outpatient ? CEA is 3 3. Essential HTN ? Continue with blood pressure medications ? Will monitor make adjustments as necessary DVT: SCDs Charges/Coding Visit Charges Inpatient E&M: 10405 Subs Hosp L2
[2024-06-13] MEDS: Pantoprazole Sodium 80 MG in 0.9% Normal Saline (100mL Bag) 80 ML 10 MG CONT INF (10:05)
--- NOTE | 2024-06-13 10:30 | EKG12_ITS ---
Test Reason : PRE OP Blood Pressure : / mmHG Vent. Rate : 063 BPM Atrial Rate : 063 BPM P-R Int : 152 ms QRS Dur : 084 ms QT Int : 426 ms P-R-T Axes : 047 -29 008 degrees QTc Int : 435 ms Sinus rhythm with Premature atrial complexes Otherwise normal ECG When compared with ECG of 13-APR-2024 05:12, No significant change was found Confirmed by VIV LYMAN, MICKEY ([id number]), assignment editor JORGE DRAKE ([id number]) on 06/14/2024 1:01:32 PM Referred By: BAEZ Confirmed By:MICKEY NAM MD
--- NOTE | 2024-06-13 15:55 | EGD_PTH ---
PATIENT: GEORGINA LEONARD LOC: [facility] U#:[id number] AGE/SX: 83/F ROOM: [facility] RE06/12/[address]: Dr. Tong Alberto MD : [id number] BED: 1 DIS: 06/14/2024 SPEC #: [id number] RECD: 06/14/24 07:46 STATUS: BONNY RAMIREZShana #: [id number] JAMIE: 06/13/24 15:[address]: Demarco Veloz DEPT: SURGICAL PATHOLOGY RECD BY: Sekou Guerra ENTERED: 06/14/24 09:31 SP TYPE: EGD BIOPSY OT DR: DO Dr. Rolf Sprague MD Dr. Nicholas F Kotsonis, MD Tissues: Duodenum, NOS Procedures: Surgery Specimen Level IV HEADER OPERATION: EGD with biopsy PRE-OP DIAGNOSIS: Recurrent GI bleed with GERD TISSUE SUBMITTED: Duodenal polyp biopsy MICROSCOPIC DIAGNOSIS Duodenal polyp, biopsy: Polypoid fragments of benign duodenal mucosa with focal gastric metaplasia. 06/15/2024 MICROSCOPIC DESCRIPTION Slides are reviewed. GROSS DESCRIPTION Received in fixative is one container labeled with the patient's name and designated Duodenal polyp biopsy. The specimen consists of multiple irregular fragments of light larson soft tissue that in aggregate measure 0.6 x 0.6 x 0.1 cm. The specimen is totally submitted in one cassette. 06/14/2024 TC:5 CPT:78582
--- NOTE | 2024-06-13 16:27 | PCM.PRE.AN2 ---
ASA Classification* ASA Classification ASA Classification: 3 Assessment & Plan Anesthesia* Anesthesia Assessment Anesthesia Assessment: Discussed sedation and/or anesthesia options, risks, benefits, and alternatives with patient/parents/legal guardian/POA. Questions invited. The patient/parents/legal guardian/POA seems to understand and agrees to proceed with anesthesia plan. Reviewed the physical assessment, medical history, allergy history and patient home medications list prior to surgery/procedure/anesthetic and documented any changes. Performed airway and anesthesia risk assessments. Anesthesia Type Anesthesia Type: MAC Anesthesia Focused Assessment* Temperature: 97.7 F Pulse Rate: 66 Blood Pressure: 139/77 Respiratory Rate: 18 Pulse Ox: 96 Airway Assessment Mouth opens: >3 cm Mallampati Score: II Focused Labs Anesthesia Preop lab: CBC WBC 6.6 K/mm3 (4.4-11.0) 06/13/24 05:39 RBC 3.22 M/mm3 (4.2-5.4) L 06/13/24 05:39 Hgb 9.9 g/dL (12.0-15.0) L 06/13/24 05:39 Hct 29.9 % (37-47) L 06/13/24 05:39 Plt Count 279 K/mm3 (150-450) 06/13/24 05:39 CHEMISTRY Potassium 3.8 mmol/L (3.5-5.1) 06/12/24 04:16 Sodium 131 mmol/L (136-145) L 06/12/24 04:16 Magnesium 1.8 mg/dL (1.6-2.6) 06/12/24 04:16 Phosphorus 3.1 mg/dL (2.5-4.9) 06/12/24 04:16 BUN 23 mg/dL (7-18) H 06/12/24 04:16 Creatinine 0.54 mg/dL (0.55-1.02) L 06/12/24 04:16 Glucose 89 mg/dL (74-106) 06/12/24 04:16 POC Glucose 86 mg/dL (74-106) 09/30/22 09:18 TSH 1.270 uIU/mL (0.358-3.740) 06/12/24 04:16 COAG PT 13.4 SECONDS (11.7-14.9) 06/11/24 23:30 Pre-Assessment Diagnosis/Proposed Procedure Planned Operative Procedure(s): EGD Anesthesia History 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 When Was Last Pacemaker Check QUESTION #4 FULL TEXT: You/Your Family Experience fever (hyperthermia) with Anesthesia Last Oral Intake Last Oral intake: Last Oral Intake NPO since Meds taken in AM with sips of water? Meds patient instructed to take am of surgery PONV PONV - bus inspector: PONV - bus inspector Female HX of Motion Sickness HX of N/V After Surgery Non-Smoker Duration of Surgery greater than 60 minutes Number of Risk Factors PONV Score Height & Weight Height & Weight: Anesthesia: Height & Weight Height 5 ft 4 in 06/13/24 12:26 Weight: 51.7 kg 06/13/24 12:26 Body Mass Index (BMI) 19.5 06/13/24 04:30 Respiratory Assessment Respiratory Assessment - bus inspector: Respiratory Tract Infection Hx - bus inspector Hx Respiratory Tract Infection No 04/13/24 01:18 STOP Sleep Apnea STOP Sleep Apnea - bus inspector: STOP Sleep Apnea - bus inspector Hx Hypertension Yes 06/12/24 15:05 Hx Sleep Apnea No 06/12/24 03:31 CPAP BIPAP Do you snore loudly (louder Yes 06/12/24 03:31 than talking or can be heard Do you often feel tired/ No 06/12/24 03:31 fatigued/ sleepy during daytime? Has anyone observed you stop No 06/12/24 03:31 breathing during sleep? STOP Results Positive 06/12/24 03:31 QUESTION #5 FULL TEXT : Do you snore loudly (louder than talking or can be heard through closed doors)? 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 Specify any problems Hx of Preganancy in last 3 No 06/12/24 03:31 Months Nurse Filling Out Transfusion LFORREST 06/12/24 03:31 & Questions: Date: 06/12/24 06/12/24 03:31 Time: 03:33 06/12/24 03:31 Patient unable to answer at this time (ie. confused, unrespo /Reproduction History /Reproductive History - bus inspector: /Reproductive Hx- bus inspector Hx Now Gestational Age (in weeks): EDC: Hx Hx Para Hx Section SAB No 12/12/23 01:48 Active Medications Active Medications: Current Medications Generic Name Dose Route Start Last Admin Trade Name Freq PRN Reason Stop Dose Admin Ferrous Sulfate 325 mg 06/13/24 12:00 06/13/24 12:36 Ferrous Sulfate 325 Mg Tablet PO Not Given BID@1200,1700 RONNIE Hydralazine HCl 10 mg 06/12/24 03:50 Hydralazine 20 Mg/Ml Vial IV Q6H PRN PRN SBP GREATER THAN 160 Protocol Pantoprazole Sodium 80 mg/ 100 mls @ 10 mls/hr 06/12/24 00:50 06/13/24 15:16 Sodium Chloride CONT INF 0 mls/hr Q10H RONNIE Infusion Sodium Chloride 100 mls @ 15 mls/hr 06/12/24 03:35 IV .Q6H40M PRN Saline Flush Sodium Chloride 100 mls @ 15 mls/hr 06/12/24 03:35 IV .Q6H40M PRN Additional IVPB Infusion Lisinopril 20 mg 06/14/24 10:00 Lisinopril 20 Mg Tablet PO DAILY [facility] Protocol Lorazepam 0.5 mg 06/12/24 02:57 06/12/24 20:42 Lorazepam 2 Mg/Ml Syringe IV 0.5 mg Q6H PRN PRN Administration ANXIETY/INSOMNIA Menthol 1 applic 06/13/24 14:29 Menthol 226.8 Gm Jar TOPICAL 4X/DAY PRN PRN Pain Score 1-10 Morphine Sulfate 2 mg 06/12/24 03:28 Morphine 2 Mg/Ml Syringe IV Q4H PRN PRN Pain Score 6-10 Ondansetron HCl 4 mg 06/12/24 03:28 Ondansetron 4 Mg/2 Ml Vial IV Q8H PRN PRN NAUSEA/VOMITING Sodium Chloride 10 - 40 ml 06/12/24 03:35 06/12/24 20:43 0.9% Saline Lock 10 Ml Syringe IV 10 ml UD PRN Administration SALINE FLUSH PFSH Medical History Acute lower gastrointestinal bleeding Hyponatremia History of echocardiogram Wears glasses Post-menopausal Anxiety Alcohol use History of steroid therapy Ambulates with cane Arthritis Back pain Migraine headache Constipation Former smoker Leg cramps History of pain when walking History of fracture of leg Hypertension Home Medications ?Medication ?Instructions ?Recorded ?Last Taken ?Type lisinopril 20 mg tablet 20 mg PO DAILY blood pressure 10/23/21 12/09/23 History acetaminophen 325 mg tablet 650 mg PO Q4H PRN Pain 09/20/22 09/29/22 History (Tylenol) calcium 600 mg (as 1 tab PO DAILY supplement 09/20/22 12/09/23 History carbonate)-vitamin D3 5 mcg (200 unit) tablet pantoprazole 40 mg tablet,delayed 40 mg PO DAILY #30 tabs 12/13/23 Unknown Rx release docusate sodium 100 mg capsule 100 mg PO BID PRN 03/07/24 Unknown History (Colace) ferrous sulfate 325 mg (65 mg 325 mg PO BID 03/07/24 Unknown History iron) tablet (Feosol) polyethylene glycol 3350 17 17 g PO DAILY PRN constipation 04/12/24 Unknown History gram/dose oral powder (ClearLax) sennosides 8.6 mg tablet 8.6 mg PO DAILY PRN constipation 04/12/24 Unknown History (Evac-U-Gen (sennosides)) lorazepam 0.5 mg tablet 0.5 mg PO QHS PRN Sleep 14 days 05/30/24 Unknown Rx #14 tabs celecoxib 200 mg capsule 200 mg PO DAILY 06/12/24 Unknown History oxycodone 5 mg tablet 5 mg PO Q6H PRN pain 06/12/24 Unknown History primidone 50 mg tablet 50 mg PO QHS 06/12/24 Unknown History Allergy/AdvReac Type Severity Reaction Status Date / Time venom-honey bee Allergy Hives Verified 06/11/24 22:36 venom-wasp Allergy Hives Verified 06/11/24 22:36 naproxen AdvReac Other Verified 06/11/24 22:36 prednisone AdvReac Other Verified 06/11/24 22:36 Surgical History H/O shoulder replacement Hx of right cataract extraction Hx of left cataract extraction Hx of colonoscopy Social History housing: house Smoking Status: Former smoker Review of Systems (Anesthesia) ROS Narrative System reviewed and no additional complaints, except as documented.
--- NOTE | 2024-06-13 16:51 | PCM.POST.ANE ---
Anesthesia: Postop Eval I Current Vital Signs Temperature: 97.3 F Pulse Rate: 78 Blood Pressure: 157/84 Respiratory Rate: 16 Pulse Ox: 96 Oxygen Delivery Method: Room Air Assessment Airway patent: Yes Spontaneous unlabored respirations: Yes Mental status: Awake and Calm nausea: No Vomiting: No Anesthesia Complication: No Fluid Hydration Crystalloid volume administer (ml): 10 Total IV fluid infused: 10 Progress Note Anesthesia document: Postop Eval 1 completed: Yes
--- NOTE | 2024-06-13 16:57 | OP.EGD_ITS ---
Patient Name: May Herrera Procedure Date: 06/13/2024 4:28 PM Date of : 1940 Age: 83 Procedure: Upper GI endoscopy Indications: Epigastric abdominal pain Providers: Demarco Veloz DO Medicines: Monitored Anesthesia Care Patient Profile: This is an 83 year old female. Refer to note in patient chart for documentation of history and physical. Patient has symptoms of acute epigastric abdominal pain. Refer to note in patient chart for documentation of history and physical. Patient has symptoms of acute epigastric abdominal pain. Complications: No immediate complications. Procedure: Pre-Anesthesia Assessment: - Prior to the procedure, a History and Physical was performed, and patient medications and allergies were reviewed. The patient is competent. The risks and benefits of the procedure and the sedation options and risks were discussed with the patient. All questions were answered and informed consent was obtained. Patient identification and proposed procedure were verified by the physician in the pre-procedure area. Mental Status Examination: alert and oriented. Airway Examination: normal oropharyngeal airway and neck mobility. Respiratory Examination: clear to auscultation. CV Examination: normal. Prophylactic Antibiotics: The patient does not require prophylactic antibiotics. Prior Anticoagulants: The patient has taken no anticoagulant or antiplatelet agents. ASA Grade Assessment: II - A patient with mild systemic disease. After reviewing the risks and benefits, the patient was deemed in satisfactory condition to undergo the procedure. The anesthesia plan was to use monitored anesthesia care (MAC). Immediately prior to administration of medications, the patient was re-assessed for adequacy to receive sedatives. The heart rate, respiratory rate, oxygen saturations, blood pressure, adequacy of pulmonary ventilation, and response to care were monitored throughout the procedure. The physical status of the patient was re-assessed after the procedure. After obtaining informed consent, the endoscope was passed under direct vision. Throughout the procedure, the patient's blood pressure, pulse, and oxygen saturations were monitored continuously. The Endoscope was introduced through the mouth, and advanced to the second part of duodenum. The upper GI endoscopy was accomplished without difficulty. The patient tolerated the procedure well. Scope In: 4:39:42 PM Scope Out: 4:43:39 PM Total Procedure Duration Time 0 hours 3 minutes 57 seconds Findings: The examined esophagus was normal. No gross lesions were noted in the entire examined stomach. A single 9 mm sessile polyp with no bleeding was found in the duodenal bulb. The polyp was removed with a jumbo cold forceps. Polyp resection was incomplete. The resected tissue was retrieved. Verification of patient identification for the specimen was done. Estimated blood loss was minimal. Impression: - Normal esophagus. - No gross lesions in the entire stomach. - A single duodenal polyp. Incomplete resection. Resected tissue retrieved. Recommendation: - Return patient to [facility] for ongoing care. - Full liquid diet. - Continue present medications. - Await pathology results. Procedure Code(s): --- Professional --- 39189, Esophagogastroduodenoscopy, flexible, transoral; with biopsy, single or multiple CPT copyright 2021 [employer]. All rights reserved. The codes documented in this report are preliminary and upon credit administrator review may be revised to meet current compliance requirements. Demarco Veloz DO 06/13/2024 4:56:48 PM This report has been signed electronically. Number of Addenda: 0 Note Initiated On: 06/13/2024 4:28 PM
--- NOTE | 2024-06-13 16:57 | OP.CCLET_ITS ---
06/13/2024 Rolf Peck [address] [place] [address] Re : Upper GI endoscopy procedure for May Herrera Dear Dr. Peck This procedure was performed on Thursday, June 13, 2024. My impressions and recommendations are as follows: Impressions : - Normal esophagus. - No gross lesions in the entire stomach. - A single duodenal polyp. Incomplete resection. Resected tissue retrieved. Recommendations : - Return patient to hospital [facility] for ongoing care. - Full liquid diet. - Continue present medications. - Await pathology results. My findings are described in the full procedure note, which is enclosed. If I can be of further assistance, please feel free to contact me at . Sincerely, Demarco Veloz, 06/13/2024 4:56:48 PM This report has been signed electronically.
--- NOTE | 2024-06-13 17:03 | POSTOPAN2_ITS ---
Anesthesia Postop Eval I Sum Postop Eval Completion status Anesthesia document: Postop Eval 1 completed: Yes Anesthesia Postop Eval I Summary Anesthesia Postop Eval I Summary: Anesthesia Postop Eval I: Assessment Summary Airway patent Yes 06/13/24 16:51 [email or web address] Spontaneous unlabored Yes 06/13/24 16:51 [email or web address] [email or web address] respirations Mental status Awake,Calm 06/13/24 16:51 [email or web address] nausea No 06/13/24 16:51 JAMMER [email or web address] Vomiting No 06/13/24 16:51 JAMMER [email or web address] Anesthesia Postop Eval I: Fluid Summary Crystalloid volume administer 10 06/13/24 16:51 JAMMER [email or web address] (ml) Colloids volume administered ( ml) Blood Product volume administered (ml) Total IV fluid infused 10 06/13/24 16:51 JAMMER HOOKERELOINA Anesthesia Postop Eval I: Summary Notes Anesthesia Complication No 06/13/24 16:51 HONORIO Anesthesia Complication Comment: Post-operative progress note Anesthesia: Postop Eval II Evaluation Mental status: Awake Pain Level: 0 nausea: No Vomiting: No
--- NOTE | 2024-06-13 17:03 | PCM.POSTANE2 ---
Anesthesia Postop Eval I Sum Postop Eval Completion status Anesthesia document: Postop Eval 1 completed: Yes Anesthesia Postop Eval I Summary Anesthesia Postop Eval I Summary: Anesthesia Postop Eval I: Assessment Summary Airway patent Yes 06/13/24 16:51 [employer]ANCE [employer] [email or web address] Spontaneous unlabored Yes 06/13/24 16:51 [employer] [email or web address] respirations Mental status Awake,Calm 06/13/24 16:51 [employer] [email or web address] nausea No 06/13/24 16:51 [employer] [email or web address] Vomiting No 06/13/24 16:51 [employer] [email or web address] Anesthesia Postop Eval I: Fluid Summary Crystalloid volume administer 10 06/13/24 16:51 [employer] [email or web address] (ml) Colloids volume administered ( ml) Blood Product volume administered (ml) Total IV fluid infused 10 06/13/24 16:51 INS[employer] DEF[employer] PARALEGALELOINA Anesthesia Postop Eval I: Summary Notes Anesthesia Complication No 06/13/24 16:51 HONORIO Anesthesia Complication Comment: Post-operative progress note Anesthesia: Postop Eval II Evaluation Mental status: Awake Pain Level: 0 nausea: No Vomiting: No
--- NOTE | 2024-06-13 17:28 | PN.GI_ITS ---
Subjective Subjective Patient underwent upper endoscopy for acute lower GI bleed. I had anticipated that it was an upper GIB with rapid transit but the upper endoscopy did not reveal any sources of bleeding. I suspect that the bleeding is likely from recurrent ischemic colitis because the same presentation that she had before with crampy abdominal pain. Objective Data Objective Data Vital Signs: Vital Signs Temp Pulse Resp BP Pulse Ox O2 Del Method 98.6 F 70 18 150/96 H 97 Room Air 06/13/24 17:03 06/13/24 17:03 06/13/24 17:03 06/13/24 17:03 06/13/24 17:03 06/13/24 17:03 Oxygen Delivery Method Room Air Weight: 113 lb 15.664 oz Body Mass Index (BMI) 19.5 Intake & Output: Intake and Output for Last 24 Hours 06/11/24 06/12/24 06/13/24 23:59 23:59 23:59 Intake Total 1735 / 1955 371.83 / 371.83 Balance 1735 / 5 371.83 / 371.83 Lab / Micro Data 06/13/24 05:39 06/12/24 04:16 Labs: Laboratory Results - last 24 hr 06/12/24 04:16: Carcinoembryonic Ag 3.0 06/13/24 05:39: WBC 6.6, RBC 3.22 L, Hgb 9.9 L, Hct 29.9 L, MCV 92.9, MCH 30.7, MCHC 33.1, RDW Std Deviation 58.6 H, RDW Coeff of Cas 17.2 H, Plt Count 279, MPV 9.3, Immature Gran % (Auto) 0.300, Neut % (Auto) 63.4, Lymph % (Auto) 23.1, Petroleum % (Auto) 8.1, Eos % (Auto) 4.3, Baso % (Auto) 0.8, Absolute Neuts (auto) 4.2, Absolute Lymphs (auto) 1.51, Nucleated RBC % 0 Micro: Microbiology 06/12/24 00:47 Stool Stool Occult Blood (TERRI) - Final Occult Blood Positive Physical Exam Narrative General: Alert, Oriented x3, Cooperative, No apparent distress HEENT: Atraumatic, PERRLA, EOMI, Normocephalic Oral: Moist Mucosa Neck: Supple, No JVD Lungs: Clear to auscultation, Normal air movement, No rhonchi, No wheeze, No rales Cardiovascular: Regular rate, Regular Rhythm, Normal S1, Normal S2, No murmurs Abdomen: Soft, Non Tender, Non-Distended, No Hepato-splenomegaly Extremities: No edema, Capillary Refill Less than 3 Seconds Skin: No rashes, No breakdown Musculoskeletal: No Tenderness to Palpation of Joints or Extremities Neurological: No focal neurological deficits, Motor Exam 5/5 strength throughout, Sensory exam intact to light touch and pain Psych/Mental Status: Normal Affect, Appropriate Assessment & Plan Assessment/Plan (1) GI bleed: QUALIFIERS: GI bleed type/associated pathology: anorectal hemorrhage Qualified Code(s): K62.5 - Hemorrhage of anus and rectum PLAN: 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 I will put her on mesalamine 2.4 mg p.o. daily. As there has been some studies of successful treatment of the chronic lesions associated with ischemic colitis along with antispasmodic therapy on a daily basis including dicyclomine or hyoscyamine twice a day. She would also have to take a stool softener twice a day because these medicines can be constipating. She should not take the following medicines if possible: * Drugs that cause constipation, including opioid painkillers and some heart and migraine drugs. * Immunomodulators, such as certain drugs for hepatitis, multiple sclerosis, and rheumatoid arthritis. * Illicit drugs, including amphetamines and cocaine. * Pseudoephedrine, a decongestant. * Estrogen. Charges/Coding Visit Charges Inpatient E&M: 03518 Subs Hosp L3
[2024-06-13] MEDS: Mesalamine 1.2 GM Tablet 2.4 GM PO (18:23)
[2024-06-13] MEDS: Ferrous Sulfate 325 MG Tablet PO (18:23)
[2024-06-13] MEDS: Docusate Sodium 100 MG Capsule PO (21:39)
[2024-06-13] MEDS: Dicyclomine 10 MG Capsule PO (21:39)
[2024-06-13] MEDS: LORazepam 2 MG/ML Syringe 0.5 MG IV (21:58)
[2024-06-13] MEDS: 0.9% Saline Lock 10 ML Syringe IV (21:59)
[2024-06-13] MEDS: Primidone 50 MG Tablet 25 MG PO (22:41)
[2024-06-14 03:34] VITALS: BP 120/68; PULSE 93; RESP 18; TEMP 36.2; O2SAT 98; BMI 18.4
[2024-06-14 06:40] LABS: Absolute Lymphocyte Count 2.19 X10^3/uL (0.83-4.51); Basophil# 0.05 X10^3/uL; Basophil% 0.7 % (0-1); Eosinophil# 0.32 X10^3/uL; Eosinophils% 4.4 % (0-5); Hematocrit 31.2 % (37-47); Hemoglobin 10.3 g/dL (12.0-15.0); Lymphocyte # 2.19 X10^3/ul (0.83-4.51); Lymphocyte % 30.4 % (19-41); Mean Corpuscular Hgb 30.7 pg (27.0-32.0); Mean Corpuscular Volume 92.9 fL (81-99); Monocyte% 8.3 % (0-10); NRBC Flagged by Analyzer 0 % (0-5); Neutrophil # 4.03 X10^3/uL (2.7-7.7); Neutrophil % 55.9 % (47-70); Platelet Count 287 K/mm3 (150-450); RBC Distribution Width CV 17.3 % (11.6-14.6); RBC Distribution Width SD 59.5 fl (35.1-43.9); Red Blood Count 3.36 M/mm3 (4.2-5.4); White Blood Count 7.2 K/mm3 (4.4-11.0)
[2024-06-14 07:18] LABS: Anion Gap 7 (5-15); BUN 17 mg/dL (7-18); BUN/Creat Ratio 27.3 RATIO (10-20); Calcium,Total 8.8 mg/dL (8.5-10.1); Chloride 99 mmol/L (98-107); Creatinine, Serum 0.62 mg/dL (0.55-1.02); EST Glomerular Filtration Rate 98 mL/min (>60); Est Glom Filt Rate - Afr Amer 118 mL/min (>60); Estimated Creatinine Clearance 42.49 ml/min; Glucose 86 mg/dL (74-106); Potassium 4.1 mmol/L (3.5-5.1); Sodium Level 132 mmol/L (136-145)
[2024-06-14 09:41] VITALS: BP 122/70; PULSE 74; RESP 18; TEMP 36.4; O2SAT 97
[2024-06-14] MEDS: Mesalamine 1.2 GM Tablet 2.4 GM PO (09:43)
[2024-06-14] MEDS: Lisinopril 20 MG Tablet PO (09:43)
[2024-06-14] MEDS: Dicyclomine 10 MG Capsule PO (09:43)
[2024-06-14] MEDS: Docusate Sodium 100 MG Capsule PO (09:44)
--- NOTE | 2024-06-14 11:08 | PCM.DC ---
Discharge Instructions Diet Discharge Diet: No restrictions Activity Discharge Activity: Return to Normal Activity Dressing / Incision Call your doctor if you observe: Fever of 101 or Higher, Shortness of breath, Dizziness, Fainting spells, Swelling in the ankles, Chest pain and Increased palpitations (irregular heartbeat) Follow Up Care Test Results: Test results from this visit will be discussed in further detail at your follow-up appointment, if applicable. Discharge Plan Admission Admit Date/Time: 06/12/24 02:51 Attending Provider: Tong Alberto Primary Care Provider: Rolf Peck Consulting Providers: Justus Billy Instructions Additional Instructions / Restrictions: Your EGD was normal indicating that your stomach lining is intact so you can continue Celebrex though I would try to limit its usage due to your arthritis especially in combination with other medications that you are now taking. Discharge Orders/Prescriptions Prescriptions: New docusate sodium 100 mg Capsule 100 mg PO BID 30 Days Qty: 60 0RF dicyclomine 10 mg Capsule 10 mg PO BID 30 Days Qty: 60 0RF mesalamine 1.2 gram Tablet,Delayed Release (Dr/Ec) 2.4 g PO DAILY 30 Days Qty: 60 0RF Continued lisinopril 20 mg tablet 20 mg PO DAILY acetaminophen [Tylenol] 325 mg Tablet 650 mg PO Q4H PRN (Reason: Pain) calcium carbonate-vitamin D3 600 mg-5 mcg (200 unit) Tablet 1 tab PO DAILY pantoprazole 40 mg Tablet,Delayed Release (Dr/Ec) 40 mg PO DAILY Qty: 30 0RF docusate sodium [Colace] 100 mg capsule 100 mg PO BID PRN ferrous sulfate [Feosol] 325 mg (65 mg iron) tablet 325 mg PO BID polyethylene glycol 3350 [ClearLax] 17 gram/dose powder 17 g PO DAILY PRN (Reason: constipation) sennosides [Evac-U-Gen (sennosides)] 8.6 mg tablet 8.6 mg PO DAILY PRN (Reason: constipation) celecoxib 200 mg capsule 200 mg PO DAILY primidone 50 mg tablet 50 mg PO QHS Patient Comments: 25mg by mouth once daily at bedtime for essential tremor oxycodone 5 mg tablet 5 mg PO Q6H PRN (Reason: pain) lorazepam 0.5 mg tablet 0.5 mg PO QHS PRN (Reason: Sleep) 14 Days Qty: 14 0RF Referrals / Follow Up: Rolf Peck MD [Primary Care Provider] - Within 1 Week FriendDemarco DO [Med Staff - Active Staff] - Within 1 Month Disposition Disposition (needs filled in before D/C Order can be placed): Home, Self Care
--- NOTE | 2024-06-14 11:12 | CASEMGMT ---
Social Work SW met with pt and introduced self and role of SW. SW spoke with pt regarding discharge plan. Pt is doing well with therapy and is not recommending SNF at this time. Pt is agreeable that she will not need this level of care and plans to return home. Pt states that she and her family are considering assisted living at some point. Pt is currently receiving home health PT/OT from [facility] and pt would like to resume this. Pt also privately hires home health aids through [facility] 3 days a week. RIRI updated on dc plan. ROSELYN Wilson
--- NOTE | 2024-06-14 11:46 | CASEMGMT ---
Addendum entered by Christiano Briseno 06/14/24 12:29: See WALLY Walsh planning and analysis manager note. [facility] states that they have been in contact with the pt already and that they plan to resume care (PT/OT) on Tuesday and do not need a CAIT order. DC plan updated. Original Note: Pt has an order for DC placed. notified this RN CM that the pt is planning to DC home now and that she is active with HH through [facility]. TC to [facility] (Therapy department - [facility]), no answer, left. Awaiting return call.
--- NOTE | 2024-06-14 12:24 | CASEMGMT ---
Discharge Planning Per Kristin @ [facility], pt has been receiving HH PT/OT through them and they are able to resume care on Tuesday morning. No order needed. DAWN CM updated. Jillian Henson DC Planning Asst.
[2024-06-14 13:00] VITALS: BP 134/77; PULSE 61; RESP 18; TEMP 36.7; O2SAT 100
--- NOTE | 2024-06-14 14:04 | DS.PCM_ITS ---
Providers Date of Admission: 06/12/24 Primary Care Physician: Dr. Rolf Peck MD Consultations 06/12/24 03:28 Consult: Gastroenterology Routine Consulting Provider: [facility] Reason for Consult: LGIB; with maroon-colored stool. EMERGENT Consult: No MD Notified: Yes Date Notified: 06/12/24 Time Notified: 06:50 Method of Notification: Text Reason For Visit: LGIB WITH MAROON STOOLS AND ADVERSE DRUG REACTION Diagnosis Discharge Diagnosis (1) GI bleed: Status: Acute Code(s): K92.2 - Gastrointestinal hemorrhage, unspecified Qualifiers: GI bleed type/associated pathology: anorectal hemorrhage Qualified Code(s): K62.5 - Hemorrhage of anus and rectum Plan 1. Recurrent GI bleed with GERD ? BUN is slightly elevated to 28 on admission ? Continue with n.p.o. status ? Continue with Protonix drip ? I will consult gastroenterology for scope ? She does have a history of chronic ischemic colitis however she is mentioning that the stool has maroon-colored and given the elevation in BUN an EGD would be appropriate initially ? She does use Celebrex daily 2. Liver lesion ? This does appear to be stable at 1.1 cm continue to monitor as an outpatient ? CEA is 3 3. Essential HTN ? Continue with blood pressure medications ? Will monitor make adjustments as necessary DVT: SCDs Medications at Discharge Home Medications lisinopril 20 mg tablet 20 mg PO DAILY blood pressure 10/23/21 acetaminophen 325 mg tablet (Tylenol) 650 mg PO Q4H PRN Pain 09/20/22 calcium 600 mg (as carbonate)-vitamin D3 5 mcg (200 unit) tablet 1 tab PO DAILY supplement 09/20/22 pantoprazole 40 mg tablet,delayed release 40 mg PO DAILY reflux #30 tabs 12/13/23 docusate sodium 100 mg capsule (Colace) 100 mg PO BID PRN stool softner 03/07/24 ferrous sulfate 325 mg (65 mg iron) tablet (Feosol) 325 mg PO BID supplement 03/07/24 polyethylene glycol 3350 17 gram/dose oral powder (ClearLax) 17 g PO DAILY PRN constipation 04/12/24 sennosides 8.6 mg tablet (Evac-U-Gen (sennosides)) 8.6 mg PO DAILY PRN constipation 04/12/24 lorazepam 0.5 mg tablet 0.5 mg PO QHS PRN Sleep 14 days #14 tabs 05/30/24 celecoxib 200 mg capsule 200 mg PO DAILY pain 06/12/24 oxycodone 5 mg tablet 5 mg PO Q6H PRN pain 06/12/24 primidone 50 mg tablet 50 mg PO QHS Essential Tremor 06/12/24 dicyclomine 10 mg capsule 10 mg PO BID 30 days #60 caps 06/14/24 docusate sodium 100 mg capsule 100 mg PO BID 30 days #60 caps 06/14/24 mesalamine 1.2 gram tablet,delayed release 2.4 g (2 x 1.2 gram) PO DAILY 30 days #60 tabs 06/14/24 Hospital Course Operations None Procedures EGD Summary of Care Provided Minutes Spent on Discharge: 32 Hospital Course: Per HPI: GEORGINA LEONARD, is a 83 F with a past medical history of essential hypertension, former tobacco abuse, essential tremor; on primidone, history of migraine headaches, generalized anxiety; on as needed nightly lorazepam, DENISE, history of hyponatremia, history of bilateral cataract extraction, listed allergy to prednisone and naproxen, chronic constipation; on daily senna and MiraLAX, history of colonoscopy, GERD; on Protonix, osteoarthritis; with history of Right shoulder replacement, Right femur fracture and chronic back pain on as needed oxycodone and scheduled daily celecoxib and history of LGIB with abdominal pain and hypokalemia due to chronic ischemic colitis previously evaluated by Dr. Veloz of gastroenterology who was admitted here from April 12, 2024 to April 17, 2024 who re-presents to [facility] ER complaining of LGIB with maroon-colored stools. Ms. Leonard reports her symptoms began approximately 1 hour prior to arrival when she had severe pressure sensation in the sigmoid region of her colon followed by maroon-colored stools. She also admits to 7/10 back pain that was new and constant. She denies associated fever, chills, nausea, vomiting, cramping abdominal pain, chest pain or SOB. In the ER she underwent a CTA of the abdomen and pelvis which did not show active bleeding but did reveal an increase size of a ~1.4 cm (previously ~1.1 cm) peripherally enhancing lesion in the Right lobe of the liver suggesting a metastatic lesion with a large amount of stool noted in the colon along with Hemoccult positive stools consistent with recurrent LGIB with elevated BUN of 28 mg/dL and creatinine of 0.65 mg/dL present on admission likely due at least in part to Adverse Drug Reaction to Celecoxib with a hemoglobin of 10.1 g/dL present on admission and she was then admitted to the PCU for ongoing care for stay that expected to extend beyond 2 midnights. Hospital Course: 1. Recurrent GI bleed with GERD and chronic ischemic colitis?83-year-old female presented to the hospital with recurrent GI bleeding. She does extensive workup and has noted colitis and that was felt to be ischemic. BUN on this admission was elevated so another EGD was performed which was unremarkable with no signs of gastritis or upper GI bleeding. Hemoglobin remained stable on discharge at 10.3 and GI had recommended an antispasmodic with Bentyl as well as mesalamine to help with the colitis. I discussed with her the plan for discharge today she expressed understanding of the risk benefits going home and would like to go home today. Recommend that she follow-up with her PCP in 3 to 5 days as well as gastroenterology within the next month for outpatient follow-up. Of note she did have a CT scan of her abdomen and pelvis which did redemonstrate the 1.1 cm lesion in her right lobe of her liver, I do recommend outpatient follow-up for this as well and she was notified of this finding. She is feeling much better today and would like to go home. Since her stomach was normal I do not think there is an issue with her taking Celebrex for the severity of her arthritis though if it could be limited that would be the most beneficial. 2. Iron deficiency anemia, essential hypertension chronic medical conditions which complicate her care. Her home medications were continued where appropriate Physical Exam Narrative General: Alert, Oriented x3, Cooperative, No apparent distress HEENT: Atraumatic, PERRLA, EOMI, Normocephalic Oral: Moist Mucosa Neck: Supple, No JVD Lungs: Clear to auscultation, Normal air movement, No rhonchi, No wheeze, No rales Cardiovascular: Regular rate, Regular Rhythm, Normal S1, Normal S2, No murmurs Abdomen: Soft, Non Tender, Non-Distended, No Hepato-splenomegaly Extremities: No edema, Capillary Refill Less than 3 Seconds Skin: No rashes, No breakdown Musculoskeletal: No Tenderness to Palpation of Joints or Extremities Neurological: No focal neurological deficits, Motor Exam 5/5 strength throughout, Sensory exam intact to light touch and pain Psych/Mental Status: Normal Affect, Appropriate Weight / BMI Weight Weight: 107 lb 9.369 oz Body Mass Index (BMI) 18.4 ABG / Lab / Microbiology Data 06/14/24 06:10 06/14/24 06:10 Laboratory: Laboratory Results - last 24 hr 06/14/24 06:10: WBC 7.2, RBC 3.36 L, Hgb 10.3 L, Hct 31.2 L, MCV 92.9, MCH 30.7, MCHC 33.0, RDW Std Deviation 59.5 H, RDW Coeff of Cas 17.3 H, Plt Count 287, MPV 9.0, Immature Gran % (Auto) 0.300, Neut % (Auto) 55.9, Lymph % (Auto) 30.4, Milam % (Auto) 8.3, Eos % (Auto) 4.4, Baso % (Auto) 0.7, Absolute Neuts (auto) 4.0, Absolute Lymphs (auto) 2.19, Nucleated RBC % 0, Sodium 132 L, Potassium 4.1, Chloride 99, Carbon Dioxide 26.0, Anion Gap 7, BUN 17, Creatinine 0.62, Estim Creat Clear Calc 42.49, Est GFR (MDRD) Af Amer 118, Est GFR (MDRD) Non-Af 98, B UN/Creatinine Ratio 27.3 H, Glucose 86, Calcium 8.8 Microbiology: Microbiology 06/12/24 00:47 Stool Stool Occult Blood (TERRI) - Final Occult Blood Positive D/C Instructions Discharge Diet: No restrictions Call your doctor if you observe: Fever of 101 or Higher, Shortness of breath, Dizziness, Fainting spells, Swelling in the ankles, Chest pain and Increased palpitations (irregular heartbeat) Meaningful Use Info Meaningful Use Meaningful Use Diagnoses (Choose all that apply): None applicable Ischemic Stroke Statin Dosing Therapy Reference: STATIN DOSE THERAPY REFERENCE: * Patients > 75 years receive moderate or high dose statin therapy. * Patients 75 years or YOUNGER should receive HIGH intensity statin dose unless contraindicated. You will be required to document reason for non-treatment if statin daily dose does not meet guidelines. HIGH DOSE STATIN THERAPY DAILY Atorvastatin > than or = to 40 mg Rosuvastatin > than or = to 20 mg Amlodipine + Atorvastatin > than or = to 2.5/40 mg Ezetimibe + Simvastatin 10/80 mg Simvastatin 80mg Discharge Plan Admission Admit Date/Time: 06/12/24 02:51 Attending Provider: Tong Alberto Primary Care Provider: Rolf Peck Consulting Providers: Justus Billy Instructions Additional Instructions / Restrictions: Your EGD was normal indicating that your stomach lining is intact so you can continue Celebrex though I would try to limit its usage due to your arthritis especially in combination with other medications that you are now taking. Discharge Orders/Prescriptions Prescriptions: New docusate sodium 100 mg Capsule 100 mg PO BID 30 Days Qty: 60 0RF dicyclomine 10 mg Capsule 10 mg PO BID 30 Days Qty: 60 0RF mesalamine 1.2 gram Tablet,Delayed Release (Dr/Ec) 2.4 g PO DAILY 30 Days Qty: 60 0RF Continued lisinopril 20 mg tablet 20 mg PO DAILY acetaminophen [Tylenol] 325 mg Tablet 650 mg PO Q4H PRN (Reason: Pain) calcium carbonate-vitamin D3 600 mg-5 mcg (200 unit) Tablet 1 tab PO DAILY pantoprazole 40 mg Tablet,Delayed Release (Dr/Ec) 40 mg PO DAILY Qty: 30 0RF docusate sodium [Colace] 100 mg capsule 100 mg PO BID PRN ferrous sulfate [Feosol] 325 mg (65 mg iron) tablet 325 mg PO BID polyethylene glycol 3350 [ClearLax] 17 gram/dose powder 17 g PO DAILY PRN (Reason: constipation) sennosides [Evac-U-Gen (sennosides)] 8.6 mg tablet 8.6 mg PO DAILY PRN (Reason: constipation) celecoxib 200 mg capsule 200 mg PO DAILY primidone 50 mg tablet 50 mg PO QHS Patient Comments: 25mg by mouth once daily at bedtime for essential tremor oxycodone 5 mg tablet 5 mg PO Q6H PRN (Reason: pain) lorazepam 0.5 mg tablet 0.5 mg PO QHS PRN (Reason: Sleep) 14 Days Qty: 14 0RF Referrals / Follow Up: Rolf Peck MD [Primary Care Provider] - 06/22/24 8:50 am Demarco Veloz DO [Med Staff - Active Staff] - 07/11/24 10:00 am (you will be seeing the physician regulatory assistant Sarina Messer) Disposition Disposition (needs filled in before D/C Order can be placed): Home, Self Care Charges/Coding Visit Charges Inpatient E&M: 06204 Disch Hosp >30min
== END 2024-06-14 13:25 | disposition home or self-care (01) | DRG 378 ==
LOC: ED 06-12 02:16 → PCU 06-12 06:03
PROVIDERS: Internal Medicine Gastroenterology; Admitting Provider Internal Medicine; Emergency Provider Emergency Medicine; PCP Family Medicine; Visit Provider Family Medicine
PROC: 0DJ08ZZ Inspection of Upper Intestinal Tract, Via Natural or Artificial Opening Endoscopic (ICD-10-PCS; CPT 43235; principal; 2024-06-13 15:50)
DX: K62.5 Hemorrhage of anus and rectum (principal); K55.1 Chronic vascular disorders of intestine; I10 Essential (primary) hypertension; K76.9 Liver disease, unspecified; D50.9 Iron deficiency anemia, unspecified; K21.9 Gastro-esophageal reflux disease without esophagitis; G25.0 Essential tremor; M54.50 Low back pain, unspecified; K59.09 Other constipation; K31.7 Polyp of stomach and duodenum; F41.1 Generalized anxiety disorder; Z79.1 Long term (current) use of non-steroidal anti-inflammatories (NSAID); Z87.891 Personal history of nicotine dependence; G89.29 Other chronic pain; Z23 Encounter for immunization; Z79.899 Other long term (current) drug therapy; Z98.41 Cataract extraction status, right eye; Z98.42 Cataract extraction status, left eye; Z96.611 Presence of right artificial shoulder joint; Z79.891 Long term (current) use of opiate analgesic; T39.395A Adverse effect of other nonsteroidal anti-inflammatory drugs [NSAID], initial encounter
CPT/HCPCS: 36415; 74174; 80048; 80053; 82274; 82378; 83605; 83735; 84100; 84443; 85025; 85610; 85730; 86850; 86900; 86901; 88305; 90662; 93005; 97116; 97162; 97166; 97530; 99284; J7030; J7040; Q9967; A4216; J2405; J3490

== ENCOUNTER → 2024-06-22 | Outpatient (CLI) | payer MEDICARE, SELFPAY ==
[2024-06-22 12:12] LABS: Absolute Lymphocyte Count 1.43 X10^3/uL (0.83-4.51); Absolute Neutrophil Count 3.3 X10^3/uL (2.0-7.7); Basophil# 0.04 X10^3/uL; Basophil% 0.7 % (0-1); Eosinophil# 0.14 X10^3/uL; Eosinophils% 2.6 % (0-5); Hematocrit 33.3 % (37-47); Hemoglobin 11.3 g/dL (12.0-15.0); Lymphocyte # 1.43 X10^3/ul (0.83-4.51); Lymphocyte % 26.7 % (19-41); Mean Corp Hgb Conc 33.9 g/dL (32-36); Mean Corpuscular Hgb 31.7 pg (27.0-32.0); Mean Corpuscular Volume 93.3 fL (81-99); Mean Platelet Vol. 9.5 fl (6.2-12.0); Monocyte# 0.41 X10^3/uL; Monocyte% 7.6 % (0-10); NRBC Flagged by Analyzer 0 % (0-5); Neutrophil # 3.33 X10^3/uL (2.7-7.7); Neutrophil % 62.2 % (47-70); Platelet Count 384 K/mm3 (150-450); RBC Distribution Width SD 58.8 fl (35.1-43.9); Red Blood Count 3.57 M/mm3 (4.2-5.4); White Blood Count 5.4 K/mm3 (4.4-11.0)
[2024-06-22 12:52] LABS: Vitamin B12 625 pg/mL (211-911)
[2024-06-22 13:22] LABS: ALB/GLOB Ratio 1.2 RATIO (0.9-2.4); AST(SGOT) 13 U/L (15-37); Alanine Aminotransfer ALT/SGPT 14 U/L (13-56); Albumin, Serum 3.9 g/dL (3.2-5.0); Alkaline Phosphatase 55 U/L (45-117); Anion Gap 5 (5-15); BUN 19 mg/dL (7-18); BUN/Creat Ratio 26.4 RATIO (10-20); Calcium,Total 9.8 mg/dL (8.5-10.1); Chloride 100 mmol/L (98-107); Creatinine, Serum 0.72 mg/dL (0.55-1.02); EST Glomerular Filtration Rate 82 mL/min (>60); Est Glom Filt Rate - Afr Amer 100 mL/min (>60); Ferritin 157 ng/mL (8-252); Globulin 3.3 g/dL (2.2-4.2); Glucose 93 mg/dL (74-106); Iron 49 ug/dL (50-170); Iron Binding Capacity,Total 342 ug/dL (250-450); PERCENT IRON SATURATION 14.3 % (15.0-55.0); Potassium 4.3 mmol/L (3.5-5.1); Protein, Total 7.2 g/dL (6.4-8.2); Sodium Level 131 mmol/L (136-145)
[2024-06-23 04:07] LABS: Cancer Antigen 125 24.4 U/mL (0.0-38.1); Carcinoembryonic Antigen 3.5 ng/mL (0.0-4.7)
== END | disposition home or self-care (01) ==
LOC: MFPLAB 09:35
PROVIDERS: Obstetrics & Gynecology; PCP Family Medicine; Visit Provider Family Medicine
DX: D64.9 Anemia, unspecified (principal); N83.209 Unspecified ovarian cyst, unspecified side; K76.9 Liver disease, unspecified
CPT/HCPCS: 36415; 80053; 82378; 82607; 82728; 82746; 83540; 83550; 85025; 86304

== ENCOUNTER → 2024-06-26 | Outpatient (CLI) | payer MEDICARE, OTHER, SELFPAY ==
[2024-06-26 12:48] LABS: Anion Gap 7 (5-15); BUN 20 mg/dL (7-18); BUN/Creat Ratio 31.6 RATIO (10-20); Calcium,Total 9.8 mg/dL (8.5-10.1); Chloride 99 mmol/L (98-107); Creatinine, Serum 0.63 mg/dL (0.55-1.02); EST Glomerular Filtration Rate 96 mL/min (>60); Est Glom Filt Rate - Afr Amer 116 mL/min (>60); Glucose 92 mg/dL (74-106); Potassium 4.3 mmol/L (3.5-5.1); Sodium Level 132 mmol/L (136-145)
== END | disposition home or self-care (01) ==
LOC: MTLAB 11:07
PROVIDERS: PCP Family Medicine; Referring Provider Family Medicine; Visit Provider Family Medicine
DX: D64.9 Anemia, unspecified (principal); E87.1 Hypo-osmolality and hyponatremia; R73.9 Hyperglycemia, unspecified
CPT/HCPCS: 36415; 80048

== ENCOUNTER → 2024-07-04 | Outpatient (CLI) | payer MEDICARE, OTHER, SELFPAY ==
--- NOTE | 2024-07-04 10:10 | US_ITS ---
STUDY: ULTRASOUND OF THE FEMALE PELVIS - COMPLETE REASON FOR EXAM: Female, 83 years old. Ovarian cyst LMP: Patient is postmenopausal. TECHNIQUE: Transabdominal and Transvaginal TECHNICAL QUALITY: Adequate. COMPARISON: None. FINDINGS: The uterus is anteverted and is in a midline position. The uterus measures 4.7 cm x 4.3 cm x 1.7 cm. There is a Nabothian cyst of the cervix. The endometrium measures 2 mm in thickness, and is hyperechoic. There is no demonstrated endometrial mass. There is no demonstrated myometrial mass. I.U.D. - The patient does not have an I.U.D. The right ovary is non-visualized. There is an 8.3 cm x 7.2 cm x 6.1 cm cystic structure posterior and slightly to the right of the uterus. This most likely represents a right ovarian cyst. The left ovary is non-visualized. There is no fluid in the cul-de-sac. US/Pelvic w/ Transvaginal IMPRESSION: 8.3 cm x 7.2 cm x 6.1 cm cystic structure posterior and slightly to the right side of the uterus most likely from right ovarian origin. Electronically Signed: Rashel Vieira MD at 14:02 EDT ,
== END | disposition home or self-care (01) ==
LOC: US 10:10
PROVIDERS: PCP Family Medicine; Referring Provider Obstetrics & Gynecology; Visit Provider Obstetrics & Gynecology
DX: N83.209 Unspecified ovarian cyst, unspecified side (principal)
CPT/HCPCS: 76830; 76856

== ENCOUNTER → 2024-07-11 | Outpatient (CLI) | payer MEDICARE, OTHER, SELFPAY ==
[2024-07-11 11:01] LABS: Absolute Lymphocyte Count 0.73 X10^3/uL (0.83-4.51); Absolute Neutrophil Count 7.6 X10^3/uL (2.0-7.7); Basophil# 0.03 X10^3/uL; Basophil% 0.3 % (0-1); Eosinophil# 0.61 X10^3/uL; Eosinophils% 6.4 % (0-5); Hemoglobin 11.3 g/dL (12.0-15.0); Lymphocyte # 0.73 X10^3/ul (0.83-4.51); Lymphocyte % 7.7 % (19-41); Mean Corp Hgb Conc 34.2 g/dL (32-36); Mean Corpuscular Volume 90.7 fL (81-99); Mean Platelet Vol. 8.3 fl (6.2-12.0); Monocyte% 5.3 % (0-10); NRBC Flagged by Analyzer 0 % (0-5); Neutrophil # 7.55 X10^3/uL (2.7-7.7); Neutrophil % 79.9 % (47-70); Platelet Count 378 K/mm3 (150-450); RBC Distribution Width CV 16.3 % (11.6-14.6); RBC Distribution Width SD 54.4 fl (35.1-43.9); Red Blood Count 3.64 M/mm3 (4.2-5.4); White Blood Count 9.5 K/mm3 (4.4-11.0)
[2024-07-12 08:12] LABS: AFP, Tumor Marker < 1.8 ng/mL (0.0-8.7)
== END | disposition home or self-care (01) ==
LOC: LAB 10:42
PROVIDERS: PCP Family Medicine; Referring Provider Student in an Organized Health Care Education/Training Program; Visit Provider Student in an Organized Health Care Education/Training Program
DX: D64.9 Anemia, unspecified (principal); K76.9 Liver disease, unspecified
CPT/HCPCS: 36415; 82105; 85025

== ENCOUNTER → 2024-08-23 | Outpatient (CLI) | payer MEDICARE, OTHER, SELFPAY ==
--- NOTE | 2024-08-23 10:56 | MRI_ITS ---
STUDY: MRI ABDOMEN WITH AND WITHOUT CONTRAST REASON FOR EXAM: Female, 83 years old. liver lesion LESION ON LIVER FOUND ON PRIOR OMAGING FROM 06/28 TECHNIQUE: Standardized fat and water weighted pulse sequences were obtained in all 3 orthogonal planes post contrast administration. IV 10cc clariscan was administered for the contrast portion of the examination. COMPARISON: CT of abdomen and pelvis dated June 12, 2024.. FINDINGS: The visualized lung bases are unremarkable. Liver: Normal size and contour. Mild fatty patchy infiltration is present. No solid masses are seen. 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 No ductal dilatation is present. No visualized solid liver masses. No hemangioma is seen. Normal gallbladder and extrahepatic biliary system. Normal spleen. There is diffuse atrophy of the pancreas. Normal bilateral adrenal glands. Normal right kidney. Normal left kidney. Normal visualized stomach. Normal small intestine. Normal colon. There is diffuse atherosclerotic calcification of the abdominal aorta with elongation and tortuosity. Normal inferior vena cava. Normal retroperitoneum. Normal abdominal wall. There are diffuse degenerative changes of the visualized lumbar spine. Significant S-shaped scoliosis is present. MRI/MRI Abd WITH and W/O Contrast IMPRESSION: 1. 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 No ductal dilatation is present. No visualized solid liver masses. No hemangioma is seen. 2. At this size these are generally of no clinical significance or high risk. If clinically indicated consultation with gastroenterology for assessment and interim follow-up can be obtained. Electronically Signed: Jimmie Ware MD at 14:25 EST ,
[2024-08-23 12:06] LABS: CREATININE FINGERSTICK < 1.0 mg/dL (0.55-1.02); EGFR FINGERSTICK > 60.0000 mL/min (>60)
== END | disposition home or self-care (01) ==
LOC: MRI 10:51
PROVIDERS: PCP Family Medicine; Referring Provider Student in an Organized Health Care Education/Training Program; Visit Provider Student in an Organized Health Care Education/Training Program
DX: K76.9 Liver disease, unspecified (principal)
CPT/HCPCS: 74183; A9575; A4216

== ENCOUNTER → 2024-10-03 | Outpatient (CLI) | payer MEDICARE, OTHER, SELFPAY ==
[2024-10-03 15:23] LABS: Absolute Lymphocyte Count 1.66 X10^3/uL (0.83-4.51); Absolute Neutrophil Count 5.5 X10^3/uL (2.0-7.7); Basophil# 0.05 X10^3/uL; Basophil% 0.6 % (0-1); Eosinophil# 0.09 X10^3/uL; Eosinophils% 1.2 % (0-5); Hematocrit 33.3 % (37-47); Hemoglobin 11.1 g/dL (12.0-15.0); Lymphocyte # 1.66 X10^3/ul (0.83-4.51); Lymphocyte % 21.2 % (19-41); Mean Corp Hgb Conc 33.3 g/dL (32-36); Mean Corpuscular Hgb 32.1 pg (27.0-32.0); Mean Corpuscular Volume 96.2 fL (81-99); Mean Platelet Vol. 9.6 fl (6.2-12.0); Monocyte% 6.4 % (0-10); NRBC Flagged by Analyzer 0 % (0-5); Neutrophil % 70.3 % (47-70); Platelet Count 347 K/mm3 (150-450); RBC Distribution Width CV 14.5 % (11.6-14.6); RBC Distribution Width SD 50.9 fl (35.1-43.9); Red Blood Count 3.46 M/mm3 (4.2-5.4); White Blood Count 7.8 K/mm3 (4.4-11.0)
[2024-10-03 16:07] LABS: ALB/GLOB Ratio 1.1 RATIO (0.9-2.4); AST(SGOT) 17 U/L (15-37); Alanine Aminotransfer ALT/SGPT 20 U/L (13-56); Albumin, Serum 3.6 g/dL (3.2-5.0); Alkaline Phosphatase 53 U/L (45-117); Anion Gap 7 (5-15); BUN 22 mg/dL (7-18); BUN/Creat Ratio 34.5 RATIO (10-20); Calcium,Total 9.6 mg/dL (8.5-10.1); Chloride 94 mmol/L (98-107); Cholesterol 234 mg/dL (200); Creatinine, Serum 0.64 mg/dL (0.55-1.02); EST Glomerular Filtration Rate 95 mL/min (>60); Est Glom Filt Rate - Afr Amer 115 mL/min (>60); Globulin 3.3 g/dL (2.2-4.2); Glucose 88 mg/dL (74-106); High Density Lipoprotein 102 mg/dL; Magnesium 2.2 mg/dL (1.6-2.6); Potassium 4.7 mmol/L (3.5-5.1); Protein, Total 6.9 g/dL (6.4-8.2); Sodium Level 130 mmol/L (136-145); Triglycerides 83 mg/dL; Very Low Density Lipoprotein 17 mg/dL (5-40)
[2024-10-03 16:41] LABS: Vitamin D,25 Hydroxy 46.9 ng/mL
[2024-10-04 11:51] LABS: Ferritin 103 ng/mL (8-252); Iron 58 ug/dL (50-170); Iron Binding Capacity,Total 284 ug/dL (250-450); PERCENT IRON SATURATION 20.4 % (15.0-55.0)
[2024-10-04 12:15] LABS: Vitamin B12 533 pg/mL (211-911)
== END | disposition home or self-care (01) ==
LOC: MFPLAB 11:37
PROVIDERS: PCP Family Medicine; Referring Provider Family Medicine; Visit Provider Family Medicine
DX: D64.9 Anemia, unspecified (principal); I10 Essential (primary) hypertension; M10.9 Gout, unspecified; M81.0 Age-related osteoporosis without current pathological fracture
CPT/HCPCS: 36415; 80053; 80061; 82306; 82607; 82728; 83540; 83550; 83735; 84443; 84550; 85025

== ENCOUNTER → 2024-10-04 | Outpatient (CLI) | payer MEDICARE, OTHER, SELFPAY ==
--- NOTE | 2024-10-04 11:32 | RAD_ITS ---
PROCEDURE: HIP, UNI W/ PELVIS 2-3 VIEWS REASON FOR EXAM: Osteoporosis. Right hip surgery last year. Fell last week. TECHNIQUE: Three-view right hip to include the AP pelvis COMPARISON: Preoperative right hip and pelvis study of 01/10/2024. RAD/HIP, UNI W/ Pelvis 2-3 Views IMPRESSION: Prominent degenerative changes and levoscoliosis of the visualized lower lumbar spine again noted. Stable sacroiliac joint degenerative changes seen. Stable appearance of mild left hip joint degenerative changes. A right total hip prosthesis is seen, including cerclage wires and clot in the proximal femur, is in place, without apparent complication. No evidence of metallic fracture or screw loosening. No acute osseous process is seen. Reading Location: [id number]
== END | disposition home or self-care (01) ==
LOC: MTRAD 11:30
PROVIDERS: PCP Family Medicine; Referring Provider Anesthesiology Pain Medicine; Visit Provider Anesthesiology Pain Medicine
DX: M16.11 Unilateral primary osteoarthritis, right hip (principal)
CPT/HCPCS: 73502

== ENCOUNTER → 2024-11-21 | Outpatient (CLI) | payer MEDICARE, OTHER, SELFPAY ==
[2024-11-21 15:10] LABS: Absolute Lymphocyte Count 2.02 X10^3/uL (0.83-4.51); Absolute Neutrophil Count 3.8 X10^3/uL (2.0-7.7); Basophil# 0.04 X10^3/uL; Basophil% 0.6 % (0-1); Eosinophil# 0.13 X10^3/uL; Hematocrit 33.9 % (37-47); Hemoglobin 11.2 g/dL (12.0-15.0); Lymphocyte # 2.02 X10^3/ul (0.83-4.51); Lymphocyte % 31.2 % (19-41); Mean Corpuscular Hgb 31.8 pg (27.0-32.0); Mean Corpuscular Volume 96.3 fL (81-99); Mean Platelet Vol. 10.2 fl (6.2-12.0); Monocyte# 0.44 X10^3/uL; Monocyte% 6.8 % (0-10); NRBC Flagged by Analyzer 0 % (0-5); Neutrophil # 3.83 X10^3/uL (2.7-7.7); Neutrophil % 59.2 % (47-70); Platelet Count 307 K/mm3 (150-450); RBC Distribution Width CV 13.7 % (11.6-14.6); RBC Distribution Width SD 48.5 fl (35.1-43.9); Red Blood Count 3.52 M/mm3 (4.2-5.4); White Blood Count 6.5 K/mm3 (4.4-11.0)
[2024-11-21 17:44] LABS: ALB/GLOB Ratio 1.5 RATIO (0.9-2.4); AST(SGOT) 23 U/L (<=31); Alanine Aminotransfer ALT/SGPT 17 U/L (<=34); Albumin, Serum 4.1 g/dL (3.4-4.8); Alkaline Phosphatase 52 U/L (35-104); Anion Gap 10 (5-15); BUN 21 mg/dL (4-19); BUN/Creat Ratio 37.5 RATIO (10-20); Calcium,Total 9.7 mg/dL (7.6-11.0); Carbon Dioxide 25.1 mmol/L (21.0-32.0); Chloride 97 mmol/L (98-108); Creatinine, Serum 0.57 mg/dL (0.70-1.20); EST Glomerular Filtration Rate 91 (>60); Globulin 2.7 g/dL (2.2-4.2); Glucose 93 mg/dL (70-99); Potassium 4.7 mmol/L (3.3-5.1); Protein, Total 6.8 g/dL (5.9-8.4); Sodium Level 133 mmol/L (133-145); Total Bilirubin 0.22 mg/dL (0.00-1.30)
== END | disposition home or self-care (01) ==
LOC: MFPLAB 12:01
PROVIDERS: PCP Family Medicine; Referring Provider Family Medicine; Visit Provider Family Medicine
DX: I10 Essential (primary) hypertension (principal)
CPT/HCPCS: 36415; 80053; 85025

== ENCOUNTER → 2024-12-06 | Outpatient (CLI) | payer MEDICARE, OTHER, SELFPAY ==
--- NOTE | 2024-12-06 13:20 | US_ITS ---
PROCEDURE: PELVIC (NON ) 12/06/2024 REASON FOR EXAM: PELVIC MASS TECHNIQUE: Transabdominal pelvic ultrasound COMPARISON: Comparison is made with prior study dated July 04, 2024. FINDINGS: Measurements: Uterus: 5.5 cm x 2.7 cm x 0.9 cm with a volume of 7.23 mL Endometrial Thickness: 2.5 mm. Slightly thickened. Small amount of fluid is seen in the endometrial canal. Nabothian cyst is seen. Right Ovary: There is a 9.8 cm x 8.5 cm x 6.5 cm cystic mass in the right adnexa. No right ovarian tissue is seen. This has increased slightly in size as compared to prior study. Left Ovary: Nonvisualized. Uterus: No focal fibroid is seen. Endometrium: Slightly thickened endometrium with a trace amount of endometrial fluid. Other: US/Pelvic (Non ) IMPRESSION: Persistent 9.8 cm 8.5 cm 6.5 cm cystic mass in the right adnexa. This is essen tially unchanged. Reading Location: [facility]
== END | disposition home or self-care (01) ==
LOC: US 13:09
PROVIDERS: PCP Family Medicine; Referring Provider Obstetrics & Gynecology Gynecologic Oncology; Visit Provider Obstetrics & Gynecology Gynecologic Oncology
DX: R19.00 Intra-abdominal and pelvic swelling, mass and lump, unspecified site (principal)
CPT/HCPCS: 76856

== ENCOUNTER 2024-12-12 09:30 | Outpatient (RCR) | payer MEDICARE, OTHER, SELFPAY ==
--- NOTE | 2024-11-14 11:21 | HP.PTEVAL ---
Patient's Visit Information Visit Information Visit Information: GEORGINA LEONARD is a 83 year old F referred to Physical Therapy by AMY Trotter with a diagnosis of CERVICAL SPINAL STENOSIS AND L SHLD OA WITH NECK AND SHLD PAIN.. Date of Evaluation: 11/14/24 Physical Therapist: Jewell Flower PT, Cert MDT Visit Plan Frequency: 2x /Week Duration: 4-6 Weeks Plan: *OSTEOPOROSIS* *NO L SHLD PASSIVE ROM* ULTRASOUND (1.3 W/CM2 X 8 MIIN) AND STM X 6 TO 8 VISITS TO NECK AND LEFT SHLD TENDER AREAS. POSTURE CORRECTION/STRENGTHENING. LEFT UE ROM, STRETCHING AND STRENGTHENING. HEP INSTRUCTION. Subjective Subjective: Present symptoms: PATIENT C/O L SHLD PAIN SINCE SEPTEMBER 2024 WHEN SHE REACHED OUT TO THE SIDE WHILE SITTING IN HER CHAIR AND HEARD SOMETHING TEAR. THEN ON Sep SHE WAS WALKING WITH HER CANE AND SHE FELL IN HER HOUSE AND HER HEAD HIT THE CABINET AND FELL ON HER LEFT SIDE/SHLD. THAT INCREASED HER SHLD AND NECK PAIN MORE (CHRONIC NECK PAIN). PATIENT DENIES UE NUMBNESS AND TINGLING. Getting Better, Getting Worse or Staying the Same: STAYING THE SAME Pain Scale: Worst - 7/10 Least - 4/10 Currently: 4/10 Worse: TURNING HEAD AND RAISING ARM Better: WARM SHOWER Disturbed sleep: NO Previous history/Previous treatment: UNREMARKABLE FOR TREATMENT BUT STATES SHE HAS HAD ARTHRITIS IN HER NECK AND SOME CHRONIC NECK PAIN FOR A LONG TIME. STATES SHE HAS JUST DEALT WITH IT AND IT HASN'T BEEN SEVERE. This episode: TANGELA'T WITH DR. CISNEROS TOMORROW Dizziness: NO Tinnitus: NO Nausea: NO Shortness of Breath: NO Difficulty Swallowing: NO Gait: NO Unexplained weight loss: NO Imaging: STATES SHE HAS HAD NECK AND SHLD X-RAYS SINCE THE FALL 09/25/24 AND THERE IS NOTHING BROKE. SHE STATES SHE NEEDS A L SHLD REPLACEMENT BUT SHE ISN'T A GOOD CANDIDATE DUE TO OTHER HEALTH REASONS. Objective Objective: Sitting Posture/Standing Posture: VERY FORWARD HEAD AND SHLD MUSCLE ATROPHY. S/P R REVERSE SHLD RPLM 2022. ANTERIOR L SHLD PLACEMENT. Active Correction of posture: ONLY ABLE TO MINIMALLY CORRECT POSTURE BUT NOT MAINTAIN. Other Observations: INDEP GAIT INTO PT WITH FWW. LEANING RATHER HARD ON WALKER INCLUDING PUTTING A LOT OF PRESSURE ON LEFT UE. PATIENT DENIES INCREASED L SHLD PAIN WHILE WALKING AND LEANING ON WALKER. Sensory deficit: SVEN UE LIGHT TOUCH SENSATION GROSSLY INTACT AND SYMMETRICAL ROM deficit: R SHLD ACTIVE ELEVATION 75 DEG, R 80 DEG WITH PAIN DURING MVMT. ER 20 DEG AND PATIENT UNABLE TO GET HAND BEHIND BACK - ONLY TO HIP. Motor deficit: L SHLD 2-/5, ELBOW 3+/5. 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 Balance/Special Test Scores Oswestry Neck Score: 16 Quick DASH Score: 56.8175 Goals Goal 1:: DECREASE C/O NECK PAIN BY AT LEAST 50% TO EASE ADL'S. Goal Time Frame: 4-6 Weeks Goal 2:: DECREASE C/O L SHLD PAIN BY AT LEAST 50% TO EASE ADL'S. Goal Time Frame: 4-6 Weeks Goal 3:: INCREASE PAINFREE CERVICAL ROM TO EASE ADL'S. Goal Time Frame: 4-6 Weeks Goal 4:: INCREASE PAINFREE L SHLD ELEVATION TO EASE ADL'S Goal Time Frame: 4-6 Weeks Goal 5:: INCREASE FUNCTIONAL STRENGTH OF L UE TO EASE ADL'S. Goal Time Frame: 4-6 Weeks Goal 6:: INDEP HEP Rehabilitation Potential Physical Therapy Diagnosis: POSTURAL AND L UE WEAKNESS AND STIFFNESS WITH INCREASED C/O PAIN SINCE SEP 2024. Rehabilitation Potential: Fair Anticipated Interventions Patient/Client Instruction: Educate patient on: Condition, Plan of Care and Risk Factors For the Purpose of:: To improve self management Therapeutic Exercise to Include: Strength training, Body mechanics, Postural training, Flexibilty training, Neuromotor development and Scapular Strength/Stabilization For the Purpose of:: To decrease pain, To increase ROM, To improve muscle performance and motor function, To increase tolerance to activity/condition/position, To improve ability of physical actions for home/community/work/leisure, To increase flexibility/ROM and To improve self management Manual Therapy Techniques to Include: Soft tissue mobilization Comment: NO PASSIVE ROM For the Purpose of:: To decrease pain and To improve nutrient delivery to tissue Thermo therapy (hot pack): Yes Ultrasound (thermal/non thermal): Yes For the Purpose of:: To decrease pain and To improve nutrient delivery to tissue Text: Thank you for the opportunity to evaluate your patient. For Medicare and Medicare HMO plans, please review the plan of care and approve it. It will need to be FAXED BACK to us at [phone] for Medicare purposes. For Medicare only, by signing this I certify the plan of care. Please let me know if there are questions or concerns regarding this plan of care. Physician Signature: Date:
--- NOTE | 2024-12-12 14:45 | HP.PTDCSUM ---
Discharge Summary D/C summary: It has been my pleasure to treat GEORGINA LEONARD referred by AMY Trotter, with the diagnosis of CERVICAL SPINAL STENOSIS AND L SHLD OA WITH NECK AND SHLD PAIN. for a total of 9 visit(s). Discharge Date: 12/12/24 Please see the following information for a summary of their discharge status. Subjective Subjective: PATIENT REPORTS SHE HAS ENJOYED THE THERAPY FOR HER NECK AND SHLD AND SHE FEELS BETTER AFTER THE TANGELA'TS BUT THEY STILL HURT. SHE STATES SHE THINKS SHE WOULD BE BETTER IF SHE WOULD DO HER EX'S MORE. SHE REPORTS SHE HAS A TOOTH INFECTION AND IS TAKING Penicillin. SHE ALSO REPORTS HER DOCTOR CALLED WITH ULTRASOUND RESULTS INFORMING HER THE CYST ON HER OVERAY IS GROWING AND THEY NEED TO REMOVE IT - IT WAS APPARENTLY THE SIZE OF A TENNIS BALL WHEN MEASURED IN SEPTEMBER. Pain Left Shoulder: Pain Intensity (Out of 10): 6 Left Neck: Pain Intensity (Out of 10): 6 Overall Improvement % Improvement: 30 Objective Objective/Function: PATIENT WAS SEEN TODAY FOR RE-ASSESSMENT OF PROGRESS TOWARD THE SET PT GOALS AND THE NEED FOR FURTHER PHYSICAL THERAPY VS READINESS FOR DISCHARGE. UPON EXAM TODAY: INDEP GAIT INTO PT WITH FWW. LEANING RATHER HARD ON WALKER INCLUDING PUTTING A LOT OF PRESSURE ON LEFT UE. PATIENT DENIES INCREASED L SHLD PAIN WHILE WALKING AND LEANING ON WALKER. Sensory deficit: SVEN UE LIGHT TOUCH SENSATION GROSSLY INTACT AND SYMMETRICAL ROM deficit: R SHLD ACTIVE ELEVATION 75 DEG, L 105 DEG WITH PAIN DURING MVMT. L SHLD ABD 82 DEG. ER 30 DEG AND PATIENT IS NOW ABLE TO GET HER HAND BEHIND HER BACK INTO THE SMALL OF HER BACK. Motor deficit: L SHLD 2+/5, ELBOW 3+/5. 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 Postural strength: POOR Palpation: PATIENT STILL WITH TENDERNESS THROUGH OUT CERVICAL, LEFT SHLD AND LEFT UPPER ARM REGIONS. Goals Goal 1:: DECREASE C/O NECK PAIN BY AT LEAST 50% TO EASE ADL'S. Goal Progress: Progressing Goal 2:: DECREASE C/O L SHLD PAIN BY AT LEAST 50% TO EASE ADL'S. Goal Progress: Progressing Goal 3:: INCREASE PAINFREE CERVICAL ROM TO EASE ADL'S. Goal Progress: Progressing Goal 4:: INCREASE PAINFREE L SHLD ELEVATION TO EASE ADL'S Goal Progress: Progressing Goal 5:: INCREASE FUNCTIONAL STRENGTH OF L UE TO EASE ADL'S. Goal Progress: Progressing Goal 6:: INDEP HEP Goal Progress: Progressing Plan Plan: D/C TO HEP DUE TO NEED FOR ABDOMINAL SURGERY. PATIENT AGREEABLE. SHE STATES SHE IS GOING TO SEE THE SURGEON ON TUESDAY TO MAKE PLANS TO HAVE THE CYST REMOVED. D/C Information d/c sentence: If there are questions or concerns regarding this patient's physical therapy, please feel free to call me at [phone]. Thank you for the referral of this patient. Sincerely, Jewell Flower, PT, Cert MDT Balance/Gait/Functional tests Balance/Special Test Scores Oswestry Neck Score: 15 Quick DASH Score: 59.0900 Improvement % Improvement: 30
== END 2024-12-12 16:18 | disposition home or self-care (01) ==
LOC: PT 09:30
PROVIDERS: PCP Family Medicine; Referring Provider Physician Assistant Surgical; Visit Provider Physician Assistant Surgical
DX: M19.012 Primary osteoarthritis, left shoulder (principal); M25.512 Pain in left shoulder; M48.02 Spinal stenosis, cervical region; M54.2 Cervicalgia
CPT/HCPCS: 97035; 97110; 97162; 97530

== ENCOUNTER → 2025-02-19 | Outpatient (CLI) | payer MEDICARE, OTHER, SELFPAY ==
[2025-02-19 18:51] LABS: RBC /Synovial Fluid 0.212 10^6/uL (0); Synovial Fld Mononuclear WBC # 0.648 10^3/ul; Synovial Fld Mononuclear WBC % 42.8 %; Synovial Fld Polynuclear WBC # 0.868 10^3/uL; Synovial Fld Polynuclear WBC % 57.2 %
[2025-02-19 21:34] LABS: AUTO B FLUID DILUENT BKGD CT WBC <0.1 RBC <0.01 (W<.1,R<.01); Source- Body Fluid SYNOVIAL
[2025-02-19 21:35] LABS: Color / Synovial Fluid Red (Pale Yellow); Source / Synovial Fluid LEFT SHOULDER
[2025-02-19 21:36] LABS: Appearance /Synovial Fluid Turbid (CLEAR)
[2025-02-19 23:38] LABS: Lymph 5 %; Monocyte /Synovial Fluid 31 %; Neutrophil 64 % (0-25)
[2025-02-20 00:11] LABS: CRYSTALS, BODY FLUID NO CRYSTALS SEEN
[2025-02-21 11:16] LABS: Pathologist Comment Reviewed
== END | disposition home or self-care (01) ==
LOC: LAB 15:37
PROVIDERS: PCP Family Medicine; Referring Provider Physician Assistant Surgical; Visit Provider Physician Assistant Surgical
DX: M19.012 Primary osteoarthritis, left shoulder (principal); M25.412 Effusion, left shoulder
CPT/HCPCS: 87015; 87070; 87075; 87101; 87116; 87205; 87206; 89050; 89051; 89060

== ENCOUNTER 2025-02-20 11:24 | Outpatient (CLI) | payer MEDICARE, OTHER, SELFPAY ==
[2025-02-20 11:55] LABS: Mucous, Urine 0 SEEN /hpf (<or=2+); Red Blood Cells-Urine 0 SEEN /hpf (0-5); Squamous Epithelial Cells - UA 0 SEEN /hpf (5-10); White Blood Cells 0 SEEN /hpf (0-5)
[2025-02-20 16:33] LABS: ALB/GLOB Ratio 1.8 RATIO (0.9-2.4); AST(SGOT) 23 U/L (<=31); Alanine Aminotransfer ALT/SGPT 18 U/L (<=34); Albumin, Serum 3.9 g/dL (3.4-4.8); Alkaline Phosphatase 58 U/L (35-104); Anion Gap 11 (5-15); BUN 15 mg/dL (4-19); BUN/Creat Ratio 28.8 RATIO (10-20); Calcium,Total 9.1 mg/dL (7.6-11.0); Carbon Dioxide 25.6 mmol/L (21.0-32.0); Chloride 92 mmol/L (98-108); Creatinine, Serum 0.53 mg/dL (0.70-1.20); EST Glomerular Filtration Rate 92 (>60); Globulin 2.1 g/dL (2.2-4.2); Glucose 102 mg/dL (70-99); Iron 57 ug/dL (50-170); Potassium 4.6 mmol/L (3.3-5.1); Protein, Total 6.1 g/dL (5.9-8.4); Sodium Level 128 mmol/L (133-145); Total Bilirubin 0.18 mg/dL (0.00-1.30)
[2025-02-20 16:41] LABS: Ferritin 135 ng/mL (22-378); Vitamin B12 767 pg/mL (180-914)
[2025-02-20 17:57] LABS: Absolute Lymphocyte Count 1.34 X10^3/uL (0.83-4.51); Absolute Neutrophil Count 3.7 X10^3/uL (2.0-7.7); Basophil# 0.05 X10^3/uL; Basophil% 0.9 % (0-1); Eosinophils% 1.7 % (0-5); Hematocrit 31.2 % (37-47); Hemoglobin 10.5 g/dL (12.0-15.0); Lymphocyte # 1.34 X10^3/ul (0.83-4.51); Lymphocyte % 23.4 % (19-41); Mean Corp Hgb Conc 33.7 g/dL (32-36); Mean Corpuscular Volume 95.1 fL (81-99); Mean Platelet Vol. 9.5 fl (6.2-12.0); Monocyte# 0.54 X10^3/uL; Monocyte% 9.4 % (0-10); NRBC Flagged by Analyzer 0 % (0-5); Neutrophil # 3.67 X10^3/uL (2.7-7.7); Neutrophil % 64.3 % (47-70); Platelet Count 364 K/mm3 (150-450); RBC Distribution Width CV 14.6 % (11.6-14.6); Red Blood Count 3.28 M/mm3 (4.2-5.4); White Blood Count 5.7 K/mm3 (4.4-11.0)
[2025-02-20 19:01] LABS: Color, Urine Yellow (Yellow); Glucose, Dipstick Normal (Normal); Ketone-Dipstick Negative (Negative); Leukocyte Esterase-Dipstick Negative /ul (Negative); Nitrite-Dipstick Negative (Negative); Occult Blood-Urine Negative /ul (Negative); Protein-Dipstick 15 mg/dl (Negative); Specific Gravity, Urine 1.015 (1.002-1.030); Urine Bilirubin Dipstick Negative (Negative); Urine Clarity Sl. Cloudy (Clear); Urine Urobilinogen Normal (Normal)
[2025-02-20 19:18] LABS: Amorphous Sediment 3+; Bacteria 2+ /hpf (None Seen)
== END 2025-02-20 23:59 | disposition home or self-care (01) ==
LOC: MFPLAB 11:25
PROVIDERS: PCP Family Medicine; Visit Provider Family Medicine
DX: D64.9 Anemia, unspecified (principal); I10 Essential (primary) hypertension; M81.0 Age-related osteoporosis without current pathological fracture
CPT/HCPCS: 36415; 80053; 81001; 82306; 82607; 82728; 83540; 83735; 84443; 85025

== ENCOUNTER 2025-03-05 09:46 | Emergency (ER) | payer MEDICARE, OTHER, SELFPAY ==
[2025-03-05] VITALS (15 sets, daily range): BP systolic 142–168; BP diastolic 77–99; PULSE 53–76; RESP 10–55; TEMP 36.3–36.4; O2SAT 21–100; BMI 18.7
--- NOTE | 2025-03-05 10:50 | RAD_ITS ---
PROCEDURE: HIP, UNI W/ PELVIS 2-3 VIEWS 03/05/2025 REASON FOR EXAM: ATRAUMATIC RIGHT HIP PAIN. 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 The acetabular component is aligned. There is no visible acute fracture. Osteopenia is noted. Vascular calcifications are visible. 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 Critical results were discussed with Dr. Avilez by Dr. Bartlett at the time o f dictation. Reading Location: [facility]
--- NOTE | 2025-03-05 11:02 | ED.VIS.LOWEX ---
HPI History of Present Illness HPI Narrative: 84-year-old female prior hip fracture. Initially repaired 2 years ago and then she had what sounds like a periprosthetic fracture that she had repaired a year ago. Says it feels like at times her hip sliding out of place. She saw her orthopedic physician yesterday in [place] I did an x-ray told her it looked good. He thought this was muscular according to the patient. Said she bent over last night cleaning up from her cat. And this morning had pain in her hip that has not resolved. She said she felt a large pop and has been feeling better. Denies any fall or trauma otherwise. Chief Complaint: Lower Extremity Injury Informant: patient Occured/Mechanism Mechanism/Context: No injury and No blunt trauma Onset/Context/Timing Onset: Today Current Severity: Gone Maximum Severity: Mild Narrative Narrative: 84-year-old female prior right hip replacement. Says at times it feels like it is slipping out of place. Saw orthopedic physician yesterday had negative x-rays. Today had a similar episode but is not feeling better. No fall or trauma. No fever or redness. Prior similar symptoms: Yes Recent Illness/Hospitalization: No [facility] Medical History Contusion of right wrist Acute lower gastrointestinal bleeding Hyponatremia History of echocardiogram Wears glasses Post-menopausal Anxiety Alcohol use History of steroid therapy Ambulates with cane Arthritis Back pain Migraine headache Constipation Former smoker Leg cramps History of pain when walking History of fracture of leg Hypertension Home Medications ?Medication ?Instructions ?Recorded ?Last Taken ?Type lisinopril 20 mg tablet 20 mg PO DAILY blood pressure 10/23/21 12/09/23 History acetaminophen 325 mg tablet 650 mg PO Q4H PRN Pain 09/20/22 09/29/22 History (Tylenol) calcium 600 mg (as 1 tab PO DAILY supplement 09/20/22 12/09/23 History carbonate)-vitamin D3 5 mcg (200 unit) tablet pantoprazole 40 mg tablet,delayed 40 mg PO DAILY reflux #30 tabs 12/13/23 Unknown Rx release ferrous sulfate 325 mg (65 mg 325 mg PO BID supplement 03/07/24 Unknown History iron) tablet (Feosol) polyethylene glycol 3350 17 17 g PO DAILY PRN constipation 04/12/24 Unknown History gram/dose oral powder (ClearLax) celecoxib 200 mg capsule 200 mg PO DAILY pain 06/12/24 Unknown History oxycodone 5 mg tablet 5 mg PO Q6H PRN pain 06/12/24 Unknown History primidone 50 mg tablet 50 mg PO QHS Essential Tremor 06/12/24 Unknown History docusate sodium 100 mg capsule 100 mg PO BID 30 days #60 caps 06/14/24 Unknown Rx docusate sodium 100 mg capsule 100 mg PO BID PRN stool softner 08/16/24 Unknown Rx (Colace) #60 caps dicyclomine 10 mg capsule 10 mg PO BID 30 days #60 caps 01/09/25 Unknown Rx mesalamine 1.2 gram tablet,delayed 1.2 g PO DAILY 30 days #30 tabs 01/09/25 Unknown Rx release Allergy/AdvReac Type Severity Reaction Status Date / Time venom-honey bee Allergy Hives Verified 03/05/25 09:46 venom-wasp Allergy Hives Verified 03/05/25 09:46 naproxen AdvReac Other Verified 03/05/25 09:46 prednisone AdvReac Other Verified 03/05/25 09:46 Surgical History H/O shoulder replacement Hx of right cataract extraction Hx of left cataract extraction Hx of colonoscopy Social History adopted: No household members: none housing: house number of children: 1 current occupational status: retired Smoking Status: Former smoker alcohol intake: current alcohol intake frequency: holidays/special occasions only seatbelt use: always do you feel safe at home: Yes additional social history: ROS ROS ED ROS Narrative Denies recent illness. Constitutional Constitutional ED: Denies chills or fever(s) Eyes Eyes: Denies blurry vision ENT ENT ED: Denies ear pain Cardiovascular Cardiovascular: Denies chest pain Respiratory/Chest Respiratory/Chest: Denies cough Gastrointestinal Gastrointestinal: Denies abdominal pain Genitourinary Genitourinary ED: Denies dysuria Musculoskeletal Musculoskeletal: Denies arthralgias Integumentary Denies abscess Neurologic Neurologic: Denies headache(s) Psychiatric Psychiatric: Denies anxiety Endocrine Endocrinology: Denies polydipsia Hematologic/Lymphatic Hematologic/Lymphatic: Denies easy bleeding Allergic/Immunologic Allergic/Immunologic ED: Denies mouth swelling EXAM Physical Exam Narrative Exam Narrative: Well-appearing 84-year-old female. Vital signs are stable afebrile. H EENT exam pupils round reactive light. Mytrex membranes. Lungs clear to auscultation. Heart regular rhythm no murmur. Rate about 60. Chest wall and ribs nontender. Abdomen soft nontender. Back nontender. Hips and pelvis nontender. She has normal flexion extension of both hips. No click or pop. No signs of fracture or dislocation. No shortening or rotation. She can flex and extend the right hip and the right knee. Dorsi and plantarflexion intact. Calves are nontender without edema. Neurologically she is awake and alert. The right hip there is no swelling. There is no redness or warmth. Const Vital Signs: 03/05/25 09:46 03/05/25 13:09 03/05/25 13:15 Temperature 97.3 F L Temperature Source Temporal Pulse Rate 54 L 55 L 57 L Pulse Rate [1 (Initial Baseline)] Pulse Rate [2] Pulse Rate [3] Pulse Rate [4] Pulse Rate [5] Pulse Rate [6] Respiratory Rate 14 16 18 Respiratory Rate [1 (Initial Baseline)] Respiratory Rate [2] Respiratory Rate [3] Respiratory Rate [4] Respiratory Rate [5] Respiratory Rate [6] Blood Pressure 164/81 H 161/85 H 165/82 H Blood Pressure [1 (Initial Baseline)] Blood Pressure [2] Blood Pressure [3] Blood Pressure [4] Blood Pressure [5] Blood Pressure [6] Blood Pressure Mean 108 110 Baseline BP 165/82 Pulse Ox 98 98 99 Oxygen Delivery Method Room Air Room Air Room Air Oxygen Delivery Method [1 (Initial Baseline)] Oxygen Delivery Method [2] Oxygen Delivery Method [4] Oxygen Delivery Method [5] Oxygen Delivery Method [6] Oxygen Flow Rate (L/min) Oxygen Flow Rate (L/min) [1 (Initial Baseline)] Oxygen Flow Rate (L/min) [2] Oxygen Flow Rate (L/min) [3] Oxygen Flow Rate (L/min) [4] Oxygen Flow Rate (L/min) [5] Oxygen Flow Rate (L/min) [6] Fraction of Inspired Oxygen (FIO2) [2] EtCo2 - Document during CPR and with ROSC 36 EtCo2 - Document during CPR and with ROSC [1 (Initial Baseline)] EtCo2 - Document during CPR and with ROSC [3] EtCo2 - Document during CPR and with ROSC [4] EtCo2 - Document during CPR and with ROSC [6] 03/05/25 13:30 03/05/25 13:53 03/05/25 14:00 Temperature Temperature Source Pulse Rate 53 L 64 Pulse Rate [1 (Initial Baseline)] 58 L Pulse Rate [2] 59 L Pulse Rate [3] 76 Pulse Rate [4] Pulse Rate [5] Pulse Rate [6] Respiratory Rate 22 H 20 H Respiratory Rate [1 (Initial Baseline)] 16 Respiratory Rate [2] 16 Respiratory Rate [3] 12 Respiratory Rate [4] Respiratory Rate [5] Respiratory Rate [6] Blood Pressure 149/79 H 149/81 H Blood Pressure [1 (Initial Baseline)] 168/82 H Blood Pressure [2] 142/78 H Blood Pressure [3] 149/79 H Blood Pressure [4] Blood Pressure [5] Blood Pressure [6] Blood Pressure Mean Baseline BP Pulse Ox 100 100 Oxygen Delivery Method Nasal Cannula Nasal Cannula Oxygen Delivery Method [1 (Initial Baseline)] Room Air Oxygen Delivery Method [2] Nasal Cannula Oxygen Delivery Method [4] Oxygen Delivery Method [5] Oxygen Delivery Method [6] Oxygen Flow Rate (L/min) 6 2 Oxygen Flow Rate (L/min) [1 (Initial Baseline)] Oxygen Flow Rate (L/min) [2] 6 Oxygen Flow Rate (L/min) [3] 6 Oxygen Flow Rate (L/min) [4] Oxygen Flow Rate (L/min) [5] Oxygen Flow Rate (L/min) [6] Fraction of Inspired Oxygen (FIO2) [2] 94 EtCo2 - Document during CPR and with ROSC 35 34 EtCo2 - Document during CPR and with ROSC [1 (Initial Baseline)] 36 EtCo2 - Document during CPR and with ROSC [3] 34 EtCo2 - Document during CPR and with ROSC [4] EtCo2 - Document during CPR and with ROSC [6] 03/05/25 14:04 03/05/25 14:08 03/05/25 14:50 Temperature Temperature Source Pulse Rate 56 L 57 L 56 L Pulse Rate [1 (Initial Baseline)] Pulse Rate [2] Pulse Rate [3] Pulse Rate [4] Pulse Rate [5] Pulse Rate [6] Respiratory Rate 55 H 15 32 H Respiratory Rate [1 (Initial Baseline)] Respiratory Rate [2] Respiratory Rate [3] Respiratory Rate [4] Respiratory Rate [5] Respiratory Rate [6] Blood Pressure 160/81 H 154/77 H Blood Pressure [1 (Initial Baseline)] Blood Pressure [2] Blood Pressure [3] Blood Pressure [4] Blood Pressure [5] Blood Pressure [6] Blood Pressure Mean Baseline BP 154/77 Pulse Ox 100 99 99 Oxygen Delivery Method Nasal Cannula Room Air Room Air Oxygen Delivery Method [1 (Initial Baseline)] Oxygen Delivery Method [2] Oxygen Delivery Method [4] Oxygen Delivery Method [5] Oxygen Delivery Method [6] Oxygen Flow Rate (L/min) 2 Oxygen Flow Rate (L/min) [1 (Initial Baseline)] Oxygen Flow Rate (L/min) [2] Oxygen Flow Rate (L/min) [3] Oxygen Flow Rate (L/min) [4] Oxygen Flow Rate (L/min) [5] Oxygen Flow Rate (L/min) [6] Fraction of Inspired Oxygen (FIO2) [2] EtCo2 - Document during CPR and with ROSC 32 27 32 EtCo2 - Document during CPR and with ROSC [1 (Initial Baseline)] EtCo2 - Document during CPR and with ROSC [3] EtCo2 - Document during CPR and with ROSC [4] EtCo2 - Document during CPR and with ROSC [6] 03/05/25 15:00 03/05/25 15:10 03/05/25 15:15 Temperature Temperature Source Pulse Rate 61 56 L Pulse Rate [1 (Initial Baseline)] 57 L Pulse Rate [2] Pulse Rate [3] Pulse Rate [4] 56 L Pulse Rate [5] 54 L Pulse Rate [6] 61 Respiratory Rate 16 30 H Respiratory Rate [1 (Initial Baseline)] 16 Respiratory Rate [2] Respiratory Rate [3] Respiratory Rate [4] 12 Respiratory Rate [5] 10 L Respiratory Rate [6] 16 Blood Pressure 145/81 H 156/86 H Blood Pressure [1 (Initial Baseline)] 167/81 H Blood Pressure [2] Blood Pressure [3] Blood Pressure [4] 167/81 H Blood Pressure [5] 154/99 H Blood Pressure [6] 165/82 H Blood Pressure Mean 102 Baseline BP Pulse Ox 95 98 Oxygen Delivery Method Room Air Room Air Oxygen Delivery Method [1 (Initial Baseline)] Nasal Cannula Oxygen Delivery Method [2] Oxygen Delivery Method [4] Nasal Cannula Oxygen Delivery Method [5] Nasal Cannula Oxygen Delivery Method [6] Nasal Cannula Oxygen Flow Rate (L/min) Oxygen Flow Rate (L/min) [1 (Initial Baseline)] 5 Oxygen Flow Rate (L/min) [2] Oxygen Flow Rate (L/min) [3] Oxygen Flow Rate (L/min) [4] 5 Oxygen Flow Rate (L/min) [5] 5 Oxygen Flow Rate (L/min) [6] 5 Fraction of Inspired Oxygen (FIO2) [2] EtCo2 - Document during CPR and with ROSC 30 EtCo2 - Document during CPR and with ROSC [1 (Initial Baseline)] 33 EtCo2 - Document during CPR and with ROSC [3] EtCo2 - Document during CPR and with ROSC [4] 26 EtCo2 - Document during CPR and with ROSC [6] 03/05/25 15:16 Temperature Temperature Source Pulse Rate 65 Pulse Rate [1 (Initial Baseline)] Pulse Rate [2] Pulse Rate [3] Pulse Rate [4] Pulse Rate [5] Pulse Rate [6] Respiratory Rate 18 Respiratory Rate [1 (Initial Baseline)] Respiratory Rate [2] Respiratory Rate [3] Respiratory Rate [4] Respiratory Rate [5] Respiratory Rate [6] Blood Pressure 156/86 H Blood Pressure [1 (Initial Baseline)] Blood Pressure [2] Blood Pressure [3] Blood Pressure [4] Blood Pressure [5] Blood Pressure [6] Blood Pressure Mean Baseline BP Pulse Ox 100 Oxygen Delivery Method Nasal Cannula Oxygen Delivery Method [1 (Initial Baseline)] Oxygen Delivery Method [2] Oxygen Delivery Method [4] Oxygen Delivery Method [5] Oxygen Delivery Method [6] Oxygen Flow Rate (L/min) 2 Oxygen Flow Rate (L/min) [1 (Initial Baseline)] Oxygen Flow Rate (L/min) [2] Oxygen Flow Rate (L/min) [3] Oxygen Flow Rate (L/min) [4] Oxygen Flow Rate (L/min) [5] Oxygen Flow Rate (L/min) [6] Fraction of Inspired Oxygen (FIO2) [2] EtCo2 - Document during CPR and with ROSC EtCo2 - Document during CPR and with ROSC [1 (Initial Baseline)] EtCo2 - Document during CPR and with ROSC [3] EtCo2 - Document during CPR and with ROSC [4] EtCo2 - Document during CPR and with ROSC [6] Positive well nourished and well developed; Negative for obese, cachectic, contractures or unkempt General Appearance ED: well developed and NAD; Negative for unkempt, cachectic or contractures Nutritional Appearance: Negative for cachectic or obese HEENT Reports moist mucous membranes normocephalic and atraumatic Eyes PERRL Neck full ROM and supple Chest Wall inspection of chest normal and palpation of chest normal Resp normal respiratory effort, no retractions and clear to auscultation bilaterally Auscultation: Negative for rales, rhonchi, wheezes or diminished lung sounds Cardio regular rate, regular rhythm, S1 normal heart sound, S2 normal heart sound and no murmurs Rate: Negative for bradycardia or tachycardic Rhythm: Negative for abnormal rhythm Bruits: Negative for other GI non-tender, non-distended and no masses Auscultation: normoactive bowel sounds Palpation: soft; Negative for tender, guarding or rebound tenderness present Back/Spine no CVA tenderness General Back: Negative for CVA tenderness Cervical Spine: Negative for cervical spine tenderness Thoracic Spine / Upper Back: Negative for thoracic spinal tenderness Lumbar Spine / Lower Back: Negative for lumbar spinal tenderness Extremity normal to inspection and full ROM Extremity Narrative: Nontender.. No shortening. No rotation. No redness or warmth. The hip is normal in appearance. Neuro oriented x3, CN's II-XII intact bilaterally, moves all extremities and no sensory deficits noted Sensorium / Orientation: alert, oriented to person, oriented to place and oriented to time Motor Exam: strength 5/5 throughout Psych mental status grossly normal Appearance: Negative for unkempt Skin no wounds Lesions: no lesions Rashes: no rashes [facility] MDM MDM Narrative Medical decision making narrative: Patient with right hip that feels like it is slipping in and out of the joint. Currently symptom-free. X-ray will be obtained. Initial reduction x-ray appeared to still be dislocated. Patient was procedurally sedated again. Initially given 50 of propofol and 30 more IV for a total of 80 mg of propofol. Using traction and holding her hip down she seemed to go back to length and it appeared to be back in the joint. She had good range of motion passively. We are getting a repeat x-ray. I have the patient's orthopedic physician from [place] on page to go over it with him. Repeat exam patient is doing well at 3:25 PM post procedural sedation. She and her friend are comfortable with her being discharged to home. I did speak to her orthopedic physician in [place]'s office. They will call her and set up appointment for . She knows to leave the knee immobilizer on. History & Record Review Discussion w/independent historian: Patient Additional record(s) reviewed:: Prior inpatient record, Prior outpatient record, Prior ED visit and Prior labs Radiography Diagnostic Testing: Clinical Impression(s) from Imaging Studies Hip/Pelvis X-Ray 03/05/25 10:50 IMPRESSION: There is dislocation of the femoral component of a right total hip prosthesis. Critical results were discussed with Dr. Avilez by Dr. Bartlett at the time of dictation. Reading Location: [facility] Hip X-Ray 03/05/25 13:55 IMPRESSION: The femoral head appears to be not completely situated in the acetabulum, likely subluxed cranially. Reading Location: [facility] Right hip and pelvis x-ray multiple views interpreted by myself shows Initial postreduction right hip x-ray was still dislocated. Or at least subluxed outside the acetabular cup of the prosthesis. Repeat x-ray after the second attempt of the reduction shows a proper reduction with the prosthesis in the acetabular cup. Procedures Procedural Sedation 1 (Initial Baseline): Consent Signed: Yes Any Problems With Anesthesia: No You/Your family experience fever (hyperthermia) w/anesthesia: No Sedation medication: Propofol Dose: 70 Route: IV Total Moderate Sedation Units: 15 Maliampati Score: Class II ASA Classification: II Comment:: 84-year-old female with dislocated right hip prosthesis. Has not eaten today. She had no breakfast or lunch. Has had no problems with anesthesia in the past. She will be treated with IV propofol for procedural sedation for right hip manual reduction. Patient was sedated initially with 40 mg of propofol then another 30. Using manual reduction and nursing holding down her pelvis I was able to get the right hip back in the prosthesis. Right hip came back to length and was the same length as the left leg. Prior to reduction it was about 3 inches shorter. Postreduction x-ray being obtained. Knee immobilizer replaced. During the postreduction x-ray I think she might of redislocated the hip. The x-ray was positive for still being dislocated. She was again treated with propofol a total of 80 mg IV this time. We stabilized her pelvis and was able to manually reduce the dislocation. The post procedure x-ray shows a good reduction. She has been placed in a knee immobilizer. Currently she is doing well. She is not having any pain. She is awake and alert. She will be discharged after the procedural sedation wears off. Procedural sedation for the second reduction was about 15 minutes also. Discharge Plan Triage Chief Complaint: Lower Extremity Injury ED Provider: Wilbert Avilez Dx/Rx/DC Orders Clinical Impression: Dislocation of right hip, Dislocation of hip prosthesis Instructions: ED Joint Dislocation Prescriptions: No Action mesalamine 1.2 gram tablet,delayed release (DR/EC) 1.2 g PO DAILY 30 Days Qty: 30 1RF dicyclomine 10 mg capsule 10 mg PO BID 30 Days Qty: 60 3RF lisinopril 20 mg tablet 20 mg PO DAILY acetaminophen [Tylenol] 325 mg Tablet 650 mg PO Q4H PRN (Reason: Pain) calcium carbonate-vitamin D3 600 mg-5 mcg (200 unit) Tablet 1 tab PO DAILY pantoprazole 40 mg Tablet,Delayed Release (Dr/Ec) 40 mg PO DAILY Qty: 30 0RF ferrous sulfate [Feosol] 325 mg (65 mg iron) tablet 325 mg PO BID polyethylene glycol 3350 [ClearLax] 17 gram/dose powder 17 g PO DAILY PRN (Reason: constipation) celecoxib 200 mg capsule 200 mg PO DAILY primidone 50 mg tablet 50 mg PO QHS Patient Comments: 25mg by mouth once daily at bedtime for essential tremor oxycodone 5 mg tablet 5 mg PO Q6H PRN (Reason: pain) docusate sodium 100 mg Capsule 100 mg PO BID 30 Days Qty: 60 0RF docusate sodium [Colace] 100 mg capsule 100 mg PO BID PRN Qty: 60 3RF Primary Care Provider: Rolf Peck Referrals: Rolf Peck MD [Primary Care Provider] - Activity Restrictions/Additional Instructions: Call and follow-up with your orthopedic hip surgeon in [place], Dr. Jacobs, as soon as possible. Leave the knee immobilizer on is much as possible. You can take it off to shower or bathe. But with that on it will make it much harder for you to dislocate the knee. Tylenol for pain. Print Language: Welsh Disposition Disposition: Home, Self Care
--- NOTE | 2025-03-05 13:55 | RAD_ITS ---
EXAM: XR Left Hip With Pelvis When Performed, 1 View CLINICAL INDICATION: POST REDUCTION TECHNIQUE: Frontal view of the left hip with pelvis when performed. COMPARISON: No relevant prior studies available. FINDINGS: BONES/JOINTS: The femoral head appears to be not completely situated in the acetabulum, likely subluxed cranially. No acute fracture. SOFT TISSUES: Unremarkable. RAD/Hip Min 2 Views (Portable) IMPRESSION: The femoral head appears to be not completely situated in the acetabulum, likel y subluxed cranially. Reading Location: [facility]
--- NOTE | 2025-03-05 15:03 | RAD_ITS ---
PROCEDURE: HIP MIN 2 VIEWS (PORTABLE) 03/05/2025 REASON FOR EXAM: RIGHT HIP DISLOCATION REDUCED TECHNIQUE: HIP MIN 2 VIEWS (PORTABLE) COMPARISON: Right hip study earlier 03/05/2025 (approximately 1353 hours) RAD/Hip Min 2 Views (Portable) IMPRESSION: Interval relocation of the right glenohumeral joint of the right total hip pros thesis is now seen. No fracture site is evident. The remainder of the examination is unchanged. Reading Location: [place] [id number]
--- NOTE | 2025-03-05 16:34 | RAD_ITS ---
PROCEDURE: KNEE 1 OR 2 VIEWS 03/05/2025 REASON FOR EXAM: PAIN TECHNIQUE: KNEE 1 OR 2 VIEWS COMPARISON: None. RAD/Knee 1 or 2 Views IMPRESSION: Previous screw removal at the distal femoral shaft. Moderate arterial calcification is noted. No right knee joint effusion is seen. Prominent medial and lateral meniscal chondrocalcinosis is seen. Tricompartmental degenerative changes are seen, with probable moderate medial j oint narrowing and with moderately severe to severe patellofemoral joint narrowing likely present, as well. No acute fracture or dislocation is evident. If clinical concern persists, short-term follow-up imaging may be obtained to r ule out a currently occult fracture. [facility]
== END 2025-03-05 18:01 | disposition home or self-care (01) ==
PROVIDERS: Emergency Provider Emergency Medicine; PCP Family Medicine; Visit Provider Emergency Medicine
DX: T84.020A Dislocation of internal right hip prosthesis, initial encounter (principal); Z96.641 Presence of right artificial hip joint; Z87.891 Personal history of nicotine dependence; I10 Essential (primary) hypertension; Z79.899 Other long term (current) drug therapy; Z96.619 Presence of unspecified artificial shoulder joint; Z98.41 Cataract extraction status, right eye; Z98.42 Cataract extraction status, left eye
CPT/HCPCS: 27265; 73502; 73560; 96374; 96375; 99285; A4216

== ENCOUNTER 2025-03-06 15:36 | Inpatient (IN) | payer MEDICARE, OTHER, SELFPAY ==
[2025-03-06 15:44] VITALS: BP 137/74; PULSE 67; RESP 17; TEMP 36.7; O2SAT 94; BMI 18.8
[2025-03-06 17:46] VITALS: BP 137/74; PULSE 67; RESP 17; TEMP 36.7; O2SAT 94
--- NOTE | 2025-03-06 21:09 | CM.ED ---
Social Work SW received a phone call from patients HH healthcare administrator, Chuyita Reeves ([phone]) to discuss care options for patient. Patient had been in the ED yesterday for a hip dislocation and was discharged home. Family and patient state that they feel patient needs a higher level of care of this time and wanted to know options. SW asked Chuyita if she felt patient had a change in condition that warranted another ER visit or hospital stay. Chuyita denied same, stating there was no change and she did not feel patient needed admitted. SW also asked if increasing the amount of HH would be helpful, Chuyita stated at this time they felt the patient needed 24 hour care. SW reviewed options with HH healthcare administrator, due to patients insurance, patient would need to private pay for SNF care. Patient stated she was okay with that and the HH caregiver stated she would call [facility] to see if they had any open beds. Chuyita was encouraged to call back to ED should she or patient have any additional questions or concerns. Zeinab Reeves, GLASSBLOWER, [employer]FSHEET CORRECTOR
[2025-03-06] MEDS: Senna/Docusate Sodium 1 Tablet 2 TABLET PO (21:42)
[2025-03-06] MEDS: Polyethylene Glycol 3350 17 GM PACKET PO (21:43)
[2025-03-07] VITALS (8 sets, daily range): BP systolic 121–140; BP diastolic 58–75; PULSE 61–87; RESP 16–22; TEMP 36.4–37.6; O2SAT 91–95
[2025-03-07 06:19] LABS: Hematocrit 30.1 % (37-47); Hemoglobin 10.4 g/dL (12.0-15.0); Immature Granulocytes Count 0.030 X10^3/uL (0.0-0.0); Mean Corp Hgb Conc 34.6 g/dL (32-36); Mean Corpuscular Volume 94.1 fL (81-99); Mean Platelet Vol. 9.1 fl (6.2-12.0); NRBC Flagged by Analyzer 0 % (0-5); Platelet Count 295 K/mm3 (150-450); RBC Distribution Width CV 14.6 % (11.6-14.6); RBC Distribution Width SD 50.6 fl (35.1-43.9); Red Blood Count 3.20 M/mm3 (4.2-5.4); White Blood Count 7.8 K/mm3 (4.4-11.0)
[2025-03-07 07:03] LABS: AST(SGOT) 20 U/L (<=31); Alanine Aminotransfer ALT/SGPT 18 U/L (<=34); Albumin, Serum 3.2 g/dL (3.4-4.8); Alkaline Phosphatase 53 U/L (35-104); Anion Gap 10 (5-15); BUN 13 mg/dL (4-19); BUN/Creat Ratio 22.0 RATIO (10-20); Calcium,Total 8.7 mg/dL (7.6-11.0); Carbon Dioxide 23.6 mmol/L (21.0-32.0); Chloride 95 mmol/L (98-108); Estimated Creatinine Clearance 42.71 ml/min (50-250); Globulin 2.3 g/dL (2.2-4.2); Glucose 105 mg/dL (70-99); Magnesium 1.9 mg/dL (1.5-2.2); Potassium 4.3 mmol/L (3.3-5.1)
--- NOTE | 2025-03-07 09:50 | EX.PCM.HP.RE ---
Documented by User: JOHNNIE Nguyen 03/07/25 10:53 HPI - General General Date of Admission: 03/06/25 Date of Service: 03/07/25 Chief Complaint: Right hip pain following dislocation and reduction. HPI Narrative GEORGINA LEONARD, is a very pleasant 84-year-old female with past medical history of hypertension, GERD, chronic constipation, anxiety, liver lesion, right hip prosthesis, arthritis, ulcerative colitis, irritable bowel syndrome and right hip dislocation. Per chart review I did note that the patient did have a right hip repair 2 years ago. Last year she did have a fracture repair of the same hip. Incidental finding of a right lobe liver lesion in which patient states it is benign on 01/09/2025. Patient was seen by her orthopedic physician on 03/04/2025 and there was no dislocation noted. I then met with the patient at bedside. Patient is alert and oriented x 4. She is very pleasant and conversant. She did work with PT/OT this morning and is sitting in a bedside recliner. Patient states that on 03/04 in the late afternoon she bent to 90 degrees to clean up from her cat and felt a shift in her right hip. She then states that she had excruciating pain. She then states that she sat on the commode a little bit later in which she felt a huge pop. And felt that her hip popped back into place. And had a relief of her pain. She then went to bed without incidence. Upon waking in the morning, patient states excruciating pain to the right hip and was unable to walk. She then called her caregiver,, Chuyita, in which she did arrive intake patient to the emergency department. In the emergency department at [facility], patient was found to have a right hip dislocation. First reduction was unsuccessful and required a second reduction which was successful. They then placed her in a knee immobilizer to help her to keep her leg straight with instructions to follow-up with her orthopedic physician. She was then discharged home. Upon arrival at home patient's son-in-law, Sergei, had go difficulty caring for his [id number] whom lives alone at baseline. He then contacted the inpatient rehab unit for admission for pain control and PT/OT services to assist with mobilization and to get her back to her baseline with a goal of returning home independently. At baseline the patient does utilize a walker. Patient does endorse that her son-in-law Sergei Boo is her surrogate decision maker in the event that she is unable to make decisions for herself. She also endorses that her CODE STATUS is full code. I did verify the patient's home medications with her. Patient does have some hyponatremia this morning with sodium of 128 and a chloride of 95. Patient states that she does have chronic hyponatremia. She does have history of iron deficiency anemia. Her current hemoglobin is 10.4 and hematocrit is 30.1. Platelets are within normal limits at 295. She currently denies abdominal pain and does take MiraLAX for her chronic constipation. Patient does acknowledge that she has difficulty sleeping at night and we did discuss utilization of melatonin which she is open to. We also discussed her anxiety and that she used to take lorazepam 0.5 mg p.o. twice daily as needed for anxiety. I did provide some teaching on deep breathing exercises which the patient stated appreciation. According to her orders patient's Ativan has been discontinued thus I have discontinued her medication here. Will consider addition of Xanax if needed, going forward. Reported by nursing overnight that the patient did have some snoring. Patient states that she does sleep flat on her back because of previous injuries to bilateral shoulders. We did discuss the possibility of propping up slightly during sleep to assist with snoring. Will do an overnight trend of her pulse ox. Patient does state that she currently has pain of 6/10 we did discuss scheduling her Tylenol every 8 hours to assist with better pain control. She does take oxycodone 5 mg p.o. as needed every 6 hours at home. I have scheduled her oxycodone 5 mg p.o. every 8 hours in order to assist with pain control over the next couple of days and then will transition to as needed. Patient does have an OARRS score of 40. All questions the patient had were answered. Dr. Perea was updated on patient's status. Vital signs stable. Patient endorses difficulty sleeping and insomnia Patient has had sleeping problems for: long time Patient has difficulty: falling asleep and waking in the middle of the night Patient usually goes to bed at: Varies Patient usually wakes at: Varies These times generally change on the weekends: Yes On average, how long does it take to fall asleep: hours Once asleep, patient: wakes up frequently In the morning, the patient feels: tired Does the patient nap during the day: Yes How long do these naps last?: Occasionally Does patient consume caffeine or other stimulants: No Patient falls asleep while driving: No Does patient consume alcohol at bed time: No Patient has tried medication to help sleep: Yes Patient recalls specific incidents associated to the beginning of sleep problems: No The patient has problems with anxiety: Yes The patient has problems with depression: Yes Patient snores: Yes Limb movements are a problem: Yes There has been a prior sleep study: No CPAP/BIPAP use: not prescribed [facility] Medical History (Updated 03/08/25 @ 14:[address] Justina Perea, DO) History of iron deficiency anemia Hyponatremia History of SIADH Contusion of right wrist Acute lower gastrointestinal bleeding History of echocardiogram Wears glasses Post-menopausal Anxiety Alcohol use History of steroid therapy Ambulates with cane Arthritis Back pain Migraine headache Constipation Former smoker Leg cramps History of pain when walking History of fracture of leg Hypertension Home Medications ?Medication ?Instructions ?Recorded ?Last Taken ?Type lisinopril 20 mg tablet 20 mg PO DAILY blood pressure 10/23/21 12/09/23 History calcium 600 mg (as 1 tab PO DAILY supplement 09/20/22 12/09/23 History carbonate)-vitamin D3 5 mcg (200 unit) tablet pantoprazole 40 mg tablet,delayed 40 mg PO DAILY reflux #30 tabs 12/13/23 Unknown Rx release ferrous sulfate 325 mg (65 mg 325 mg PO DAILY supplement 03/07/24 Unknown History iron) tablet (Feosol) celecoxib 200 mg capsule 200 mg PO DAILY pain 06/12/24 Unknown History oxycodone 5 mg tablet 5 mg PO Q6H PRN pain 06/12/24 Unknown History primidone 50 mg tablet 50 mg PO QHS Essential Tremor 06/12/24 Unknown History dicyclomine 10 mg capsule 10 mg PO BID IBS 30 days #60 caps 01/09/25 Unknown Rx mesalamine 1.2 gram tablet,delayed 1.2 g PO DAILY IBS 30 days #30 tabs 01/09/25 Unknown Rx release acetaminophen 500 mg tablet 1,000 mg PO Q8 PRN pain 03/06/25 Unknown History duloxetine 30 mg capsule,delayed 30 mg PO DAILY Depression 07/02/25 Unknown History release lorazepam 0.5 mg tablet 0.5 mg PO BID PRN PRN anxiety 03/06/25 Unknown History Allergy/AdvReac Type Severity Reaction Status Date / Time venom-honey bee Allergy Hives Verified 03/05/25 09:46 venom-wasp Allergy Hives Verified 03/05/25 09:46 naproxen AdvReac Other Verified 03/05/25 09:46 prednisone AdvReac Other Verified 03/05/25 09:46 Family History unable to obtain other (Patient does not remember much of her family history) Surgical History H/O shoulder replacement Hx of right cataract extraction Hx of left cataract extraction Hx of colonoscopy Social History adopted: No household members: none housing: house number of children: 1 current occupational status: retired Smoking Status: Former smoker alcohol intake: current alcohol intake frequency: holidays/special occasions only seatbelt use: always do you feel safe at home: Yes additional social history: ROS Constitutional Constitutional: Reports as per HPI, body ache(s) and difficulty sleeping Eyes Eyes: Reports systems reviewed and no addt'l complaints, except as documented ENT HEENT: Reports systems reviewed and no addt'l complaints, except as documented Cardiovascular Cardiovascular: Reports systems reviewed and no addt'l complaints, except as documented Respiratory/Chest Respiratory/Chest: Reports none Gastrointestinal Gastrointestinal: Reports as per HPI and constipation Genitourinary Genitourinary: Reports dribbling Musculoskeletal Musculoskeletal: Reports as per HPI, back pain, difficulty walking, extremity pain, joint pain, joint stiffness, limited range of motion, muscle cramps, muscle spasms, tremors and other Details: Right hip pain Integumentary Integumentary: Reports none Neurologic Neurologic: Reports tremor(s) Psychiatric Psychiatric: Reports anxiety Endocrine Endocrinology: Reports none Hematologic/Lymphatic Hematologic/Lymphatic: Reports anemia Allergic/Immunologic Allergic/Immunologic: Reports GI upset w/certain foods Vital Signs Vital Signs Vital Signs: 03/06/25 15:44 03/06/25 17:22 03/06/25 17:46 Temperature 98.1 F 98.1 F Temperature Source Temporal Temporal Pulse Rate 67 67 Pulse Strength Respiratory Rate 17 17 Respiratory Effort Normal Non-Labored Respiratory Depth Normal Respiratory Pattern Normal Blood Pressure 137/74 H 137/74 H Blood Pressure Mean 95 95 Blood Pressure Source Monitor Monitor Blood Pressure Position Semi-Fowlers Blood Pressure Location Right Arm Pulse Ox 94 94 Oxygen Delivery Method Room Air Room Air Room Air 03/06/25 20:18 03/06/25 20:20 03/07/25 05:16 Temperature 98.1 F Temperature Source Temporal Pulse Rate 68 Pulse Strength Normal (2+) Respiratory Rate 16 Respiratory Effort Normal Non-Labored Respiratory Depth Normal Respiratory Pattern Normal Blood Pressure 140/69 H Blood Pressure Mean 92 Blood Pressure Source Monitor Blood Pressure Position Supine Blood Pressure Location Right Arm Pulse Ox 94 Oxygen Delivery Method Room Air Room Air Weight Weight: 110 lb Body Mass Index (BMI) 18.8 Indicators for Scoring Admitted with or Primary Diagnosis of CVA/Stroke: No Hx of CVA/Stroke: No Modified Ciales Score MRS Score at time of Evaluation: 3-Moderate disability Physical Exam Const oriented x3 and no apparent distress General Appearance: cooperative and well kempt Orientation / Consciousness: awake, oriented to person, oriented to place and oriented to time Exam Limitations: no limitations Nutritional Appearance: thin HEENT normocephalic Nose: external nose normal External Ear: external ears normal Mouth: oral and palatal mucosa normal Eyes PERRL General Eye: normal appearance of both eyes Visual Acuity: acuity normal Sclera: sclera normal Neck full ROM General: trachea midline Lymph Lymphatic: no lymphadenopathy noted Resp Effort and Inspection: able to speak in complete sentences and symmetric chest movement Auscultation: clear to auscultation bilaterally Cardio regular rate, regular rhythm, S1 normal heart sound, S2 normal heart sound and no murmurs GI normal to inspection, nondistended, normoactive bowel sounds, soft to palpation, non-tender and non-distended GI Narrative: History of constipation no CVA tenderness Back/Spine no thoracic nor lumbar tenderness Extremity Extremity Narrative: Right hip pain that radiates to the right knee. Knee immobilizer in place. Right Lower Extremity: hip joint ROM (Decreased range of motion. Subjective pain) Skin no rashes or lesions noted General Skin Exam: no breakdown Hair: normal Nails: normal Neuro oriented x3 Sensorium / Orientation: awake, alert, oriented to person, oriented to place and oriented to time Speech: speech normal Psych mental status grossly normal Attitude: calm and engaged Activity / Motor Behavior: appropriate eye contact Speech: normal speech Thought Process: normal thought process Thought Content: normal thought content Attention / Concentration: attention grossly intact Memory / Cognition: other Some memory deficit but states I have gotten forgetful as of gotten older. Results Medical Records Data Attestation: I reviewed the patient's medical records Lab / Micro Data Attestation: I reviewed the patient's lab results. 03/07/25 06:08 03/07/25 06:08 Labs: Laboratory Results - last 24 hr 03/06/25 16:14: POC Glucose 175 H 03/07/25 06:08: WBC 7.8, RBC 3.20 L, Hgb 10.4 L, Hct 30.1 L, MCV 94.1, MCH 32.5 H, MCHC 34.6, RDW Std Deviation 50.6 H, RDW Coeff of Cas 14.6, Plt Count 295, MPV 9.1, Immature Gran % (Auto) 0.400, Neut % (Auto) 72.9 H, Lymph % (Auto) 15.8 L, Bent % (Auto) 6.2, Eos % (Auto) 4.4, Baso % (Auto) 0.3, Absolute Neuts (auto) 5.7, Absolute Lymphs (auto) 1.23, Nucleated RBC % 0, Sodium 128 L, Potassium 4.3, Chloride 95 L, Carbon Dioxide 23.6, Anion Gap 10, BUN 13, Creatinine 0.58 L, Estim Creat Clear Calc 42.71 L, Est GFR (MDRD) Non-Af 90, BUN/Creatinine Ratio 22.0 H, Glucose 105 H, Calcium 8.7, Phosphorus 2.8, Magnesium 1.9, Total Bilirubin 0.30, AST 20, ALT 18, Alkaline Phosphatase 53, Total Protein 5.5 L, Albumin 3.2 L, Globulin 2.3, Albumin/Globulin Ratio 1.4 Imaging Right hip in the emergency department was dislocated follow-up x-ray after reduction x 2 showed dislocation reduced. Assessment & Plan Assessment/Plan (1) Dislocation of right hip: QUALIFIERS: Qualified Code(s): S73.004D - Unspecified dislocation of right hip, subsequent encounter PLAN: 1. Continue with therapy 2. PT OT evaluation and treatment 3. Scheduled Tylenol and oxycodone for pain management (2) Liver lesion: PLAN: 1. Continue to monitor 2. Recommend follow-up with GI (3) Hypertension: QUALIFIERS: Hypertension type: primary hypertension Qualified Code(s): I10 - Essential (primary) hypertension PLAN: 1. Vital signs every shift 2. Lisinopril 20 mg p.o. daily (4) GERD (gastroesophageal reflux disease): QUALIFIERS: Esophagitis presence: esophagitis presence not specified Qualified Code(s): K21.9 - Gastro-esophageal reflux disease without esophagitis PLAN: 1. Protonix 40 mg p.o. daily (5) Chronic constipation: PLAN: 1. Monitor for constipation 2. Pema glycol 17 g p.o. daily (6) History of ischemic colitis: PLAN: 1. Continue to monitor 2. Patient is familiar with dietary restrictions to prevent pain (7) Fracture, intertrochanteric, right femur: QUALIFIERS: Fracture type: closed Qualified Code(s): S72.141D - Displaced intertrochanteric fracture of right femur, subsequent encounter for closed fracture with routine healing PLAN: 1. Continue to monitor 2. Resolved. (8) Anxiety: PLAN: 1. Continue to monitor 2. Teaching of deep breathing exercises and relaxation 3. Duloxetine 30 mg p.o. daily 4.. Consider Xanax 0.125 mg p.o. as needed for anxiety in the event patient has uncontrolled anxiety not relieved with deep breathing and relaxation exercises. (9) Post-op pain: PLAN: 1. Scheduled acetaminophen 1000 mg p.o. every 8 hours 2. Scheduled oxycodone 5 mg p.o. every 8 hours. Will change to as needed once pain is controlled. (10) Back pain: QUALIFIERS: Back pain laterality: unspecified Back pain location: low back pain Chronicity: chronic Sciatica presence: without sciatica Qualified Code(s): M54.50 - Low back pain, unspecified; G89.29 - Other chronic pain PLAN: 1. Continue to monitor. 2. 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 Teaching of relaxation exercises 2. Melatonin 3 mg p.o. at bedtime (12) History of SIADH: (13) Hyponatremia: (14) History of iron deficiency anemia: Charges/Coding Visit Charges Inpatient E&M: 99210 Init Hosp L2 Documented by User: Dr. Justina Perea DO 03/08/25 14:23 HPI - General General Date of Admission: 03/06/25 HPI Narrative GEORGINA LEONARD, is a very pleasant 84-year-old female with past medical history of hypertension, GERD, chronic constipation, anxiety, liver lesion, right hip prosthesis, arthritis, ulcerative colitis, irritable bowel syndrome and right hip dislocation. Per chart review I did note that the patient did have a right hip repair 2 years ago. Last year she did have a fracture repair of the same hip. Incidental finding of a right lobe liver lesion in which patient states it is benign on 01/09/2025. Patient was seen by her orthopedic physician on 03/04/2025 and there was no dislocation noted. I then met with the patient at bedside. Patient is alert and oriented x 4. She is very pleasant and conversant. She did work with PT/OT this morning and is sitting in a bedside recliner. Patient states that on 03/04 in the late afternoon she bent to 90 degrees to clean up from her cat and felt a shift in her right hip. She then states that she had excruciating pain. She then states that she sat on the commode a little bit later in which she felt a huge pop. And felt that her hip popped back into place. And had a relief of her pain. She then went to bed without incidence. Upon waking in the morning, patient states excruciating pain to the right hip and was unable to walk. She then called her caregiver,, Chuyita, in which she did arrive intake patient to the emergency department. In the emergency department at [facility], patient was found to have a right hip dislocation. First reduction was unsuccessful and required a second reduction which was successful. They then placed her in a knee immobilizer to help her to keep her leg straight with instructions to follow-up with her orthopedic physician. She was then discharged home. Upon arrival at home patient's son-in-law, Sergei, had go difficulty caring for his [id number] whom lives alone at baseline. He then contacted the inpatient rehab unit for admission for pain control and PT/OT services to assist with mobilization and to get her back to her baseline with a goal of returning home independently. At baseline the patient does utilize a walker. Patient does endorse that her son-in-law Sergei Boo is her surrogate decision maker in the event that she is unable to make decisions for herself. She also endorses that her CODE STATUS is full code. I did verify the patient's home medications with her. Patient does have some hyponatremia this morning with sodium of 128 and a chloride of 95. Patient states that she does have chronic hyponatremia. She does have history of iron deficiency anemia. Her current hemoglobin is 10.4 and hematocrit is 30.1. Platelets are within normal limits at 295. She currently denies abdominal pain and does take MiraLAX for her chronic constipation. Patient does acknowledge that she has difficulty sleeping at night and we did discuss utilization of melatonin which she is open to. We also discussed her anxiety and that she used to take lorazepam 0.5 mg p.o. twice daily as needed for anxiety. I did provide some teaching on deep breathing exercises which the patient stated appreciation. According to her orders patient's Ativan has been discontinued thus I have discontinued her medication here. Will consider addition of Xanax if needed, going forward. Reported by nursing overnight that the patient did have some snoring. Patient states that she does sleep flat on her back because of previous injuries to bilateral shoulders. We did discuss the possibility of propping up slightly during sleep to assist with snoring. Will do an overnight trend of her pulse ox. Patient does state that she currently has pain of 6/10 we did discuss scheduling her Tylenol every 8 hours to assist with better pain control. She does take oxycodone 5 mg p.o. as needed every 6 hours at home. I have scheduled her oxycodone 5 mg p.o. every 8 hours in order to assist with pain control over the next couple of days and then will transition to as needed. Patient does have an OARRS score of 40. All questions the patient had were answered. Dr. Perea was updated on patient's status. Vital signs stable. The pt was independently interviewed and examined. Since the Tylenol and Oxycodone have been scheduled the pain is better controlled. 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 In November 2024 her sodium was 133 and at that time the BUN was 21 with a creatinine of 0.57. I suspect she received intravenous fluids in the emergency room because her BUN is now down to 13 and her creatinine is stable at 0.58. The sodium is dropped to 128. She is not on fluid restriction and is not on salt tablets. Iron studies in September 2024 showed an iron saturation of 20.4 which is normal. Her ferritin was 103. Iron studies in June 2024 were consistent with iron deficiency. She is chronically on Protonix. she has a hx of UC and has had heme + stools in the past. She has seen Dr. Boogie for low sodium in the past and was told to limit fluid intake. She had IV fluids in the ED and now she is volume overloaded. She slept better last night. We discussed AL and she is OK with going to AL at [place]. Her nephew and her brother have toured a few places and they think she needs AL. She tells me that she has been having trouble cooking for herself and that even taking care of the cat has become too much for her. She had her last hip surgery with Dr. Callahan 1 year ago and it was a THR. She does not know if it was a posterior or anterior approach. She saw Dr. Callahan not too long ago and told him it sometimes seemed to pop out and back in but, he did not feel at that time that it was a problem. She has a hx of chronic back pain and sees Dr. Guzmán for pain management. She has numbness in her feet. She sometimes uses a walker and sometimes a cane. She has been living independently up until now and has an aide that comes in 3 times a week. I agree with the physical findings documented by Carly Villavicencio NP with no exceptions. [place] [address] cc/day to her diet. Start salt tabs 1 GM BID, 1 dose Lasix today. Recheck a BMP Tuesday. Check iron studies. Check a Hemoccult stool. PFSH Medical History (Updated 03/08/25 @ 14:[address] Justina Perea, DO) History of iron deficiency anemia Hyponatremia History of SIADH Contusion of right wrist Acute lower gastrointestinal bleeding History of echocardiogram Wears glasses Post-menopausal Anxiety Alcohol use History of steroid therapy Ambulates with cane Arthritis Back pain Migraine headache Constipation Former smoker Leg cramps History of pain when walking History of fracture of leg Hypertension Home Medications ?Medication ?Instructions ?Recorded ?Last Taken ?Type lisinopril 20 mg tablet 20 mg PO DAILY blood pressure 10/23/21 12/09/23 History calcium 600 mg (as 1 tab PO DAILY supplement 09/20/22 12/09/23 History carbonate)-vitamin D3 5 mcg (200 unit) tablet pantoprazole 40 mg tablet,delayed 40 mg PO DAILY reflux #30 tabs 12/13/23 Unknown Rx release ferrous sulfate 325 mg (65 mg 325 mg PO DAILY supplement 03/07/24 Unknown History iron) tablet (Feosol) celecoxib 200 mg capsule 200 mg PO DAILY pain 06/12/24 Unknown History oxycodone 5 mg tablet 5 mg PO Q6H PRN pain 06/12/24 Unknown History primidone 50 mg tablet 50 mg PO QHS Essential Tremor 06/12/24 Unknown History dicyclomine 10 mg capsule 10 mg PO BID IBS 30 days #60 caps 01/09/25 Unknown Rx mesalamine 1.2 gram tablet,delayed 1.2 g PO DAILY IBS 30 days #30 tabs 01/09/25 Unknown Rx release acetaminophen 500 mg tablet 1,000 mg PO Q8 PRN pain 03/06/25 Unknown History duloxetine 30 mg capsule,delayed 30 mg PO DAILY Depression 03/06/25 Unknown History release lorazepam 0.5 mg tablet 0.5 mg PO BID PRN PRN anxiety 03/06/25 Unknown History Allergy/AdvReac Type Severity Reaction Status Date / Time venom-honey bee Allergy Hives Verified 03/05/25 09:46 venom-wasp Allergy Hives Verified 03/05/25 09:46 naproxen AdvReac Other Verified 03/05/25 09:46 prednisone AdvReac Other Verified 03/05/25 09:46 Family History unable to obtain Surgical History H/O shoulder replacement Hx of right cataract extraction Hx of left cataract extraction Hx of colonoscopy Social History adopted: No household members: none housing: house number of children: 1 current occupational status: retired Smoking Status: Former smoker alcohol intake: current alcohol intake frequency: holidays/special occasions only seatbelt use: always do you feel safe at home: Yes additional social history: Results Lab / Micro Data 03/07/25 06:08 03/07/25 06:08 Assessment & Plan Assessment/Plan (1) Dislocation of right hip: QUALIFIERS: Qualified Code(s): S73.004D - Unspecified dislocation of right hip, subsequent encounter (2) Liver lesion: (3) Hypertension: QUALIFIERS: Hypertension type: primary hypertension Qualified Code(s): I10 - Essential (primary) hypertension (4) GERD (gastroesophageal reflux disease): QUALIFIERS: Esophagitis presence: esophagitis presence not specified Qualified Code(s): K21.9 - Gastro-esophageal reflux disease without esophagitis (5) Chronic constipation: (6) History of ischemic colitis: (7) Fracture, intertrochanteric, right femur: QUALIFIERS: Fracture type: closed Qualified Code(s): S72.141D - Displaced intertrochanteric fracture of right femur, subsequent encounter for closed fracture with routine healing (8) Anxiety: (9) Post-op pain: (10) Back pain: QUALIFIERS: Back pain laterality: unspecified Back pain location: low back pain Chronicity: chronic Sciatica presence: without sciatica Qualified Code(s): M54.50 - Low back pain, unspecified; G89.29 - Other chronic pain (11) Insomnia: QUALIFIERS: Insomnia type: due to medical condition Qualified Code(s): 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 Scurry fluid restriction of 1200 cc daily. Start sodium chloride tabs 1 g p.o. twice daily. Lasix 40 mg x 1. Recheck a BMP on Tuesday. (13) Hyponatremia: (14) History of iron deficiency anemia: PLAN: Check iron studies. Check a Hemoccult stool.
[2025-03-07] MEDS: Calcium Carb/Vitamin D 1 TABLET Tablet PO (09:59)
[2025-03-07] MEDS: Senna/Docusate Sodium 1 Tablet 2 TABLET PO ×2 (10:01→21:30)
--- NOTE | 2025-03-07 10:55 | REHABEVAL_ITS ---
Documented by User: JOHNNIE Nguyen 03/07/25 11:01 Admission Information Primary Diagnosis:: Pain and disability following right hip dislocation Actual Problem List:: Pain, ALteration in Cmfrt, Bowel, Constipation, Alteration in Sleep, Mobility Impaired, Self Care Deficit, BP, Hypertension and Alteration- Leisure Activ. Potential Problem List:: Falls and Depression Risk of Complications DVT: LUCIA Hose Bleeding: Monitor Lab Values Urinary Tract Infection: Monitor for frequency, burning, discomfort, or incontinence. Falls: Patient will be evaluated for Fall Precautions and Patient will be placed on Fall Precautions as indicated per protocol. Skin Breakdown: Nursing will assess skin daily using assessment tool. Pain: Clinical staff will assess patient's pain level per protocol., Medications will be given, if needed, and the pain level reassessed. and Other methods: Massage, distraction, decrease stimulus, etc. used PRN. Plan of Care Patient requires physician specializing in physical medicine and rehab oversight to provide close medical supervision of rehab issues including: Pain Management, Sleep Problems, Medical and co-morbidity Management and Coordination of treatment team Patient needs Physical Therapy: For a minimum of 1.5 hrs Patient needs Physical Therapy to improve:: Mobility, Strengthening, Transfers, Gait and Balance Patient needs Occupational Therapy: For a minimum of 1.5 hrs Patient needs Occupational Therapy to improve ADL's incl.: Dressing, Toilet transfers, Household tasks and Adaptive Equipment Patient requires 24/7 Rehabilitation Nursing for: Pain Issues, Identifying and preventing risk factors, Monitoring and reporting current medical conditions, Assisting with ambulation, transfer, and all ADL's, Teaching patients about disease process and medications, Family teaching, Providing safe environment and Medication Management Patient needs Welcome Center Attendant/ Case Management for: Discharge Planning, Arranging Home Equipment or Services and Family Interventions Patient needs Dietary and Nutrition Services for: Adequate Nutrition, Nutritional Supplements and Nutritional Education Goals Goals Patient will remain: free from falls and or injury at time of discharge. Patient will perform bed mobility at: Standby Assist. Patient will complete transfers from bed to chair at: Standby Assist. Patient will ambulate: 100 feet Patient will complete upper body dressing at: Standby Assist. Patient will complete lower body dressing at: Standby Assist. Patient will complete toilet transfer at: Standby Assist. Patient will complete toileting at: Standby Assist. Patient will perform bathing at: Standby Assist. Patient will perform Tub/Shower transfer at: Standby Assist. Patient will complete grooming at: Standby Assist. Patient will complete home management skills at: Standby Assist. Patient will achieve: with standby assist Patient will have pain level of: - (Patient's excepted pain level of 5 her last. Patient does have chronic pain.) Patient's skin will: remain intact and free from infection. Patient will receive: adequate nutrition. Discharge Planning Pt Prognosis for Sig. Practical Improv. w/in Reasonable Time: Good Anticipated D/C Destination: Home with Home Health Was Preadmission Assessment Accurate?: Yes Visit Charges Inpatient E&M: [id number] Init Hosp L2 Documented by User: Dr. Justina Perea DO 03/08/25 14:28 Goals Goals Patient will perform eating at: MOD I level of assist. Patient will ambulate: - (150 feet using a wheeled walker with supervision) Patient will complete upper body dressing at: - (Set up) Patient will complete lower body dressing at: - (Minimal assistance with adaptive equipment as needed) Patient will complete toilet transfer at: - (Min assist) Patient will complete toileting at: - (Min assist) Patient will perform bathing at: - (Upper body bathing at supervision and lower body bathing at min assist with adaptive equipment as needed) Patient will perform Tub/Shower transfer at: - (Minimal assistance using DME as needed) Patient will complete grooming at: - (Set up level while standing at the sink) Patient will achieve: - (Ascend/descend 2 steps using 1 handrail at standby assist) Patient will have pain level of: of 3 or less Discharge Planning Estimated Length of stay (days): 21 Anticipated D/C Destination: Assisted Living Facility
--- NOTE | 2025-03-07 15:06 | CHAPLAIN ---
Type of Pastoral Visit _x__ Initial Visit ___ Follow-up Visit ___ On-call Visit ___ General Patient Visit ___ Spiritual Assessment ___ Family Conference ___ Bereavement ___ Rapid Response ___ Code Blue ___ Other (describe below) Pastoral Care Referral From _x__ Patient ___ Family ___ Nurse ___ Physician ___ Filler Sifter Machine ___ Vice President Of Software Engineering ___ Other (describe below) Sacrament/Intervention _x__ Active listening ___ Anointing ___ Church ___ Bereavement ___ Communion ___ Pauline exploration ___ _x__ Life review _x__ Prayer ___ Reconciliation ___ Sacrament of Sick _x__ Supportive presence ___ Wedding ___ Other (describe below) Pastoral Comments patient has two visitors from her neighborhood that she enjoys; pt speaks of her move to a new house and how she helps others'; pt has concern about how long she can live in her house alone; patient smiles a lot and is agreeable; pt welcomes prayer
[2025-03-07] MEDS: Polyethylene Glycol 3350 17 GM PACKET PO (21:35)
[2025-03-07] MEDS: MELATONIN 3 MG TABLET PO (21:36)
[2025-03-08 06:00] VITALS: BP 129/77; PULSE 64; RESP 17; TEMP 36.4; O2SAT 96; BMI 19.1
[2025-03-08] MEDS: Calcium Carb/Vitamin D 1 TABLET Tablet PO (08:39)
[2025-03-08 08:45] VITALS: BP 132/67; PULSE 66
[2025-03-08 15:00] LABS: Ferritin 177 ng/mL (22-378); Iron 20 ug/dL (50-170); Iron Binding Capacity,Unsat 168 ug/dL (228-428)
[2025-03-08 15:48] LABS: Iron Binding Capacity,Total 188 ug/dL (250-450)
[2025-03-08 18:00] VITALS: BP 143/71; PULSE 70; RESP 16; TEMP 36.6; O2SAT 94
[2025-03-08] MEDS: MELATONIN 3 MG TABLET PO (22:11)
[2025-03-09 06:00] VITALS: BP 124/62; PULSE 59; RESP 18; TEMP 36.8; O2SAT 94
--- NOTE | 2025-03-09 07:16 | NURSING ---
Notified Dr. Perea of positive occult blood. No new orders.
[2025-03-09 07:24] VITALS: O2SAT 95
[2025-03-09] MEDS: Senna/Docusate Sodium 1 Tablet 2 TABLET PO ×2 (08:32→21:55)
[2025-03-09] MEDS: Calcium Carb/Vitamin D 1 TABLET Tablet PO (08:32)
[2025-03-09 17:15] VITALS: BP 122/59; PULSE 69; RESP 16; TEMP 37.1; O2SAT 94
[2025-03-09] MEDS: MELATONIN 3 MG TABLET PO (21:52)
[2025-03-09 22:00] VITALS: RESP 16; O2SAT 96
[2025-03-09] MEDS: Polyethylene Glycol 3350 17 GM PACKET PO (22:08)
[2025-03-10 05:46] VITALS: BP 142/74; PULSE 60; RESP 17; TEMP 37.1; O2SAT 94
[2025-03-10] MEDS: Senna/Docusate Sodium 1 Tablet 2 TABLET PO ×2 (08:07→21:03)
[2025-03-10] MEDS: Calcium Carb/Vitamin D 1 TABLET Tablet PO (08:08)
[2025-03-10 18:00] VITALS: BP 128/67; PULSE 70; RESP 18; TEMP 36.8; O2SAT 93
[2025-03-10] MEDS: Polyethylene Glycol 3350 17 GM PACKET PO (21:02)
[2025-03-10] MEDS: MELATONIN 3 MG TABLET PO (21:02)
[2025-03-10 22:00] VITALS: PULSE 73; RESP 15; O2SAT 93
[2025-03-11 05:38] LABS: Hematocrit 30.1 % (37-47); Hemoglobin 10.0 g/dL (12.0-15.0)
[2025-03-11 06:00] VITALS: BP 141/69; PULSE 58; RESP 17; TEMP 36.8; O2SAT 96
[2025-03-11 06:31] LABS: Anion Gap 7 (5-15); BUN 27 mg/dL (4-19); BUN/Creat Ratio 47.4 RATIO (10-20); Calcium,Total 8.9 mg/dL (7.6-11.0); Carbon Dioxide 26.8 mmol/L (21.0-32.0); Chloride 102 mmol/L (98-108); Estimated Creatinine Clearance 43.39 ml/min (50-250); Glucose 108 mg/dL (70-99); Potassium 5.0 mmol/L (3.3-5.1)
--- NOTE | 2025-03-11 08:48 | PCM.PROGNOTE ---
Documented by User: JOHNNIE Nguyen 03/11/25 14:48 Subjective Subjective HPI: MAY LEONARD, is a very pleasant 84-year-old female with past medical history of hypertension, GERD, chronic constipation, anxiety, liver lesion, right hip prosthesis, arthritis, ulcerative colitis, irritable bowel syndrome and right hip dislocation. Per chart review I did note that the patient did have a right hip repair 2 years ago. Last year she did have a fracture repair of the same hip. Incidental finding of a right lobe liver lesion in which patient states it is benign on 01/09/2025. Patient was seen by her orthopedic physician on 03/04/2025 and there was no dislocation noted. I then met with the patient at bedside. Patient is alert and oriented x 4. She is very pleasant and conversant. She did work with PT/OT this morning and is sitting in a bedside recliner. Patient states that on 03/04 in the late afternoon she bent to 90 degrees to clean up from her cat and felt a shift in her right hip. She then states that she had excruciating pain. She then states that she sat on the commode a little bit later in which she felt a huge pop. And felt that her hip popped back into place. And had a relief of her pain. She then went to bed without incidence. Upon waking in the morning, patient states excruciating pain to the right hip and was unable to walk. She then called her caregiver,, Chuyita, in which she did arrive intake patient to the emergency department. In the emergency department at [facility], patient was found to have a right hip dislocation. First reduction was unsuccessful and required a second reduction which was successful. They then placed her in a knee immobilizer to help her to keep her leg straight with instructions to follow-up with her orthopedic physician. She was then discharged home. Upon arrival at home patient's son-in-law, Sergei, had go difficulty caring for his [id number] whom lives alone at baseline. He then contacted the inpatient rehab unit for admission for pain control and PT/OT services to assist with mobilization and to get her back to her baseline with a goal of returning home independently. At baseline the patient does utilize a walker. Patient does endorse that her son-in-law Sergei Boo is her surrogate decision maker in the event that she is unable to make decisions for herself. She also endorses that her CODE STATUS is full code. I did verify the patient's home medications with her. Patient does have some hyponatremia this morning with sodium of 128 and a chloride of 95. Patient states that she does have chronic hyponatremia. She does have history of iron deficiency anemia. Her current hemoglobin is 10.4 and hematocrit is 30.1. Platelets are within normal limits at 295. She currently denies abdominal pain and does take MiraLAX for her chronic constipation. Patient does acknowledge that she has difficulty sleeping at night and we did discuss utilization of melatonin which she is open to. We also discussed her anxiety and that she used to take lorazepam 0.5 mg p.o. twice daily as needed for anxiety. I did provide some teaching on deep breathing exercises which the patient stated appreciation. According to her orders patient's Ativan has been discontinued thus I have discontinued her medication here. Will consider addition of Xanax if needed, going forward. Reported by nursing overnight that the patient did have some snoring. Patient states that she does sleep flat on her back because of previous injuries to bilateral shoulders. We did discuss the possibility of propping up slightly during sleep to assist with snoring. Will do an overnight trend of her pulse ox. Patient does state that she currently has pain of 6/10 we did discuss scheduling her Tylenol every 8 hours to assist with better pain control. She does take oxycodone 5 mg p.o. as needed every 6 hours at home. I have scheduled her oxycodone 5 mg p.o. every 8 hours in order to assist with pain control over the next couple of days and then will transition to as needed. Patient does have an OARRS score of 40. All questions the patient had were answered. Dr. Perea was updated on patient's status. Vital signs stable. The pt was independently interviewed and examined. Since the Tylenol and Oxycodone have been scheduled the pain is better controlled. 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 In November 2024 her sodium was 133 and at that time the BUN was 21 with a creatinine of 0.57. I suspect she received intravenous fluids in the emergency room because her BUN is now down to 13 and her creatinine is stable at 0.58. The sodium is dropped to 128. She is not on fluid restriction and is not on salt tablets. Iron studies in September 2024 showed an iron saturation of 20.4 which is normal. Her ferritin was 103. Iron studies in June 2024 were consistent with iron deficiency. She is chronically on Protonix. she has a hx of UC and has had heme + stools in the past. She has seen Dr. Boogie for low sodium in the past and was told to limit fluid intake. She had IV fluids in the ED and now she is volume overloaded. She slept better last night. We discussed AL and she is OK with going to AL at [place]. Her nephew and her brother have toured a few places and they think she needs AL. She tells me that she has been having trouble cooking for herself and that even taking care of the cat has become too much for her. She had her last hip surgery with Dr. Callahan 1 year ago and it was a THR. She does not know if it was a posterior or anterior approach. She saw Dr. Callahan not too long ago and told him it sometimes seemed to pop out and back in but, he did not feel at that time that it was a problem. She has a hx of chronic back pain and sees Dr. Guzmán for pain management. She has numbness in her feet. She sometimes uses a walker and sometimes a cane. She has been living independently up until now and has an aide that comes in 3 times a week[place] [address] cc/day to her diet. Start salt tabs 1 GM BID, 1 dose Lasix today. Recheck a BMP Tuesday. Check iron studies. Check a Hemoccult stool. 03/11/25: Iron studies showed iron of 20, TIBC of 188, iron saturation 11.0 and unsaturated 168. P.o. iron 325 mg ordered daily. I did update the patient about her iron studies in which she stated that she was on iron supplementation previously but that her primary care provider took her off of it. Patient states that she feels that her pain is being well-controlled with scheduled pain medications in which she is very grateful. She states that her current pain is 5/10 and that she has a high pain tolerance as she does have chronic pain at baseline. She does state that her bilateral shoulders are more sore than usual but states that she feels that this is from leaning on the walker. May endorses that she slept very well last night and did not need the trazodone. She did take melatonin. She states that her Cymbalta has been helping with pain control and sleep as well. We did have an extensive discussion about how she feels her stay at [facility] is going and she is very pleased with the care that she is receiving. She states that she is open to SNF placement at [place] once she is able to decrease the amount of PT/OT that is needed. We did discuss long-term goals and she stated that she is open to assisted living once she has completed all of her therapies but that she does not feel that she is ready for right now because she feels that she is requiring more intensive therapies than she would receive from an outpatient status. She is hoping that she can have another 10 days at [facility] for therapies. Will address during IDT rounds today. All questions were answered. Discussion with Dr. Perea and pt about insomia. Decision to add low dose of Remeron in addition to her low dose Cymbalta to assist with sleep hygiene. Dr. Perea updated. Objective Data Objective Data Constitutional Constitutional: Reports as per HPI, body ache(s) and difficulty sleeping Eyes Eyes: Reports systems reviewed and no addt'l complaints, except as documented ENT HEENT: Reports systems reviewed and no addt'l complaints, except as documented Cardiovascular Cardiovascular: Reports systems reviewed and no addt'l complaints, except as documented Respiratory/Chest Respiratory/Chest: Reports none Gastrointestinal Gastrointestinal: Reports as per HPI and constipation is resolving Genitourinary Genitourinary: Reports dribbling Musculoskeletal Musculoskeletal: Reports as per HPI, back pain, difficulty walking but improving , extremity pain, joint pain to R hip and bilateral shoulders , joint stiffness, limited range of motion, muscle cramps, muscle spasms, tremors and other Details: Right hip pain Integumentary Integumentary: Reports none Neurologic Neurologic: Reports tremor(s) Psychiatric Psychiatric: Reports anxiety but is improved today Endocrine Endocrinology: Reports none Hematologic/Lymphatic Hematologic/Lymphatic: Reports anemia Allergic/Immunologic Allergic/Immunologic: Reports GI upset w/certain foods Vital Signs: Vital Signs Temp Pulse Resp BP Pulse Ox O2 Del Method FiO2 98.3 F 58 L 17 141/69 H 96 Room Air 21 07/07/25 06:00 03/11/25 06:00 03/11/25 06:00 03/11/25 06:00 03/11/25 06:00 03/11/25 06:00 03/07/25 21:52 Oxygen Delivery Method Room Air Weight: 111 lb 12.39 oz Body Mass Index (BMI) 19.1 Intake & Output: Intake and Output for Last 24 Hours 03/09/25 03/10/25 03/11/25 23:59 23:59 23:59 Intake Total 600 / 600 1200 / 1200 220 / 220 Output Total 950 / 950 850 / 850 400 / 400 Balance -350 / -350 350 / 350 -180 / -180 Lab / Micro Data Attestation: I reviewed the patient's lab results. Lab results narrative: Improvement of patient's sodium from 128 to now 136. Chloride is now 102 from 95. Potassium is within normal limits. She did have a slight elevation in her BUN at 27. Iron studies showed iron of 20, TIBC of 188, iron saturation 11.0 and unsaturated 168. Patient is receiving iron 325 mg p.o. daily 03/11/25 05:29 03/11/25 05:29 Labs: Laboratory Results - last 24 hr 03/11/25 05:29: Hgb 10.0 L, Hct 30.1 L, Sodium 136, Potassium 5.0, Chloride 102, Carbon Dioxide 26.8, Anion Gap 7, BUN 27 H, Creatinine 0.56 L, Estim Creat Clear Calc 43.39 L, Est GFR (MDRD) Non-Af 91, BUN/Creatinine Ratio 47.4 H, Glucose 108 H, Calcium 8.9 Micro: Microbiology 03/08/25 18:25 Stool Stool Occult Blood (TERRI) - Final Occult Blood Positive Physical Exam Const oriented x3 and no apparent distress General Appearance: cooperative HEENT normocephalic Eyes PERRL Neck Neck Narrative: Patient states that she has been having some neck pain but states that she has chronic arthritis and this is not new for her. Resp normal respiratory effort, normal air movement and clear to auscultation bilaterally Cardio Cardio Narrative: Patient does have an irregular heart rhythm. This is not new for her and is chronic. Peripheral Pulses: pulses 2+ throughout GI normal to inspection, nondistended, normoactive bowel sounds GI Narrative: Patient denies any blood in stool. Patient had a bowel movement this a.m. which was reported to be brown and formed Extremity normal capillary refill Extremity Narrative: Right knee immobilizer in place. Patient does endorse having pain to the right hip but rates it 5/10. Skin General Skin Exam: no breakdown Neuro CN's II-XII intact bilaterally, no focal motor deficits and no sensory deficits noted Psych thought process normal Psych Narrative: Patient denies depression. She currently denies anxiety. She does state that she is utilizes the deep breathing exercises that were taught to her last week for episodes of anxiety. Appearance: appropriate Assessment & Plan Assessment/Plan (1) Dislocation of right hip: QUALIFIERS: Qualified Code(s): S73.004D - Unspecified dislocation of right hip, subsequent encounter PLAN: 1. Continue with therapy 2. PT OT evaluation and treatment 3. Scheduled Tylenol and oxycodone for pain management (2) Liver lesion: PLAN: 1. Continue to monitor 2. Recommend follow-up with GI (3) Hypertension: QUALIFIERS: Hypertension type: primary hypertension Qualified Code(s): I10 - Essential (primary) hypertension PLAN: 1. Vital signs every shift 2. Lisinopril 20 mg p.o. daily (4) GERD (gastroesophageal reflux disease): QUALIFIERS: Esophagitis presence: esophagitis presence not specified Qualified Code(s): K21.9 - Gastro-esophageal reflux disease without esophagitis PLAN: 1. Protonix 40 mg p.o. daily (5) Chronic constipation: PLAN: 1. Monitor for constipation 2. Pema glycol 17 g p.o. daily (6) History of ischemic colitis: PLAN: 1. Continue to monitor 2. Patient is familiar with dietary restrictions to prevent pain (7) Fracture, intertrochanteric, right femur: QUALIFIERS: Fracture type: closed Qualified Code(s): S72.141D - Displaced intertrochanteric fracture of right femur, subsequent encounter for closed fracture with routine healing PLAN: 1. Continue to monitor 2. Resolved. 3. Right knee immobilizer (8) Anxiety: PLAN: 1. Continue to monitor 2. Teaching of deep breathing exercises and relaxation 3. Duloxetine 30 mg p.o. daily 4.. Consider Xanax 0.125 mg p.o. as needed for anxiety in the event patient has uncontrolled anxiety not relieved with deep breathing and relaxation exercises. (9) Post-op pain: PLAN: 1. Scheduled acetaminophen 1000 mg p.o. every 8 hours 2. Scheduled oxycodone 5 mg p.o. every 8 hours. Will change to as needed once pain is controlled. (10) Back pain: QUALIFIERS: Back pain laterality: unspecified Back pain location: low back pain Chronicity: chronic Sciatica presence: without sciatica Qualified Code(s): M54.50 - Low back pain, unspecified; G89.29 - Other chronic pain PLAN: 1. Continue to monitor. 2. 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 Teaching of relaxation exercises 2. Melatonin 3 mg p.o. at bedtime 3. Trazodone discontinued 4. Low dose Remeron 7.5mg PO QHS ordered. 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 [place] fluid restriction of 1200 cc daily. 2. Start sodium chloride tabs 1 g p.o. twice daily. 3. Lasix 40 mg x 1. 4. Recheck a BMP on Tuesday showed normalization of sodium at 136, and normalization of chloride at 102 (13) Hyponatremia: PLAN: Resolving (14) History of iron deficiency anemia: PLAN: Check iron studies. Showed iron low at 20, TIBC low at 188, iron saturation 11.0 low, unsaturated low at 168. Ferrous sulfate 325 mg p.o. daily Monitor for bleeding Iron sucrose 100 mg IV x 1 now Iron sucrose 200 mg IV 03/12/2025 Iron sucrose 200 mg IV 03/13/2025 (15) Ovarian cyst, right: (16) Essential tremor: PLAN: Plan (1) Dislocation of right hip: QUALIFIERS: Qualified Code(s): S73.004D - Unspecified dislocation of right hip, subsequent encounter *Continue with therapies *Fall preacutions (2) Liver lesion: * Follow-up as needed with GI (3) Hypertension: QUALIFIERS: Hypertension type: primary hypertension Qualified Code(s): I10 - Essential (primary) hypertension *Continue home lisinopril *Vital signs every shift (4) GERD (gastroesophageal reflux disease): QUALIFIERS: Esophagitis presence: esophagitis presence not specified Qualified Code(s): K21.9 - Gastro-esophageal reflux disease without esophagitis *Continue PPI (5) Chronic constipation: *Continue with bowel regimen (6) History of ischemic colitis: *Closely monitor (7) Fracture, intertrochanteric, right femur: QUALIFIERS: Fracture type: closed Qualified Code(s): S72.141D - Displaced intertrochanteric fracture of right femur, subsequent encounter for closed fracture with routine healing *Continue with therapies *Pain control *Utilization of knee immobilizer (8) Anxiety: *Deep breathing exercises *Continue to monitor (9) Post-op pain: *Continue with scheduled pain medications Tylenol and oxycodone. *Continue to monitor for pain (10) Back pain: QUALIFIERS: Back pain laterality: unspecified Back pain location: low back pain Chronicity: chronic Sciatica presence: without sciatica Qualified Code(s): M54.50 - Low back pain, unspecified; G89.29 - Other chronic pain *Continue with scheduled pain medications: Tylenol and oxycodone *Continue to monitor for pain (11) Insomnia: QUALIFIERS:Insomnia type: due to medical condition Qualified Code(s): G47.01 - Insomnia due to medical condition *Melatonin 3 mg p.o. 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 [place] fluid restriction of 1200 cc daily. Start sodium chloride tabs 1 g p.o. twice daily. Lasix 40 mg x 1. BMP done this AM (13) Hyponatremia: (Resolving) *Fluid restriction of 1200 mL/day *Sodium chloride tablet 1 g p.o. twice daily *BMP on 03/11 showed improvement of sodium (14) History of iron deficiency anemia: PLAN: Check iron studies. Check a Hemoccult stool. *Ferrous sulfate 325 mg p.o. daily Charges/Coding Visit Charges Inpatient E&M: 72662 Init Hosp L2 Documented by User: Dr. Justina Perea, DO 03/12/25 18:19 Subjective Subjective Afebrile VSS - Maintaining appropriate oxygen saturation on RA Oral intake - FOOD good FLUIDS fair at best Discussed with nursing - no problems that need addressed Reviewed the THERAPY notes Medication list reviewed. Chuyita feels her pain is adequately controlled at this time. She complains of increased anxiety at times and when her anxiety increases she has increased essential tremor. She is sleeping better at night than she was at admission to rehab. She denies cephalgia, vertigo, lightheadedness, chest pain, shortness of breath, cough, nausea/vomiting/abdominal pain, dysuria and calf tenderness. Objective Data Lab / Micro Data 03/11/25 05:29 03/11/25 05:29 Assessment & Plan Assessment/Plan (1) Dislocation of right hip: QUALIFIERS: Qualified Code(s): S73.004D - Unspecified dislocation of right hip, subsequent encounter (2) Liver lesion: (3) Hypertension: QUALIFIERS: Hypertension type: primary hypertension Qualified Code(s): I10 - Essential (primary) hypertension (4) GERD (gastroesophageal reflux disease): QUALIFIERS: Esophagitis presence: esophagitis presence not specified Qualified Code(s): K21.9 - Gastro-esophageal reflux disease without esophagitis (5) Chronic constipation: (6) History of ischemic colitis: (7) Fracture, intertrochanteric, right femur: QUALIFIERS: Fracture type: closed Qualified Code(s): S72.141D - Displaced intertrochanteric fracture of right femur, subsequent encounter for closed fracture with routine healing (8) Anxiety: (9) Post-op pain: (10) Back pain: QUALIFIERS: Back pain laterality: unspecified Back pain location: low back pain Chronicity: chronic Sciatica presence: without sciatica Qualified Code(s): M54.50 - Low back pain, unspecified; G89.29 - Other chronic pain (11) Insomnia: QUALIFIERS: Insomnia type: due to medical condition Qualified Code(s): G47.01 - 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 or biopsy. Can follow up as OP. (16) Essential tremor: PLAN: This has been exacerbated by anxiety. PLAN: Plan Anxiety is a big concern. Essential tremor has been exacerbated by anxiety.......she has multiple worries. Losing her independence and having to move into AL, lost her in 2022, dtr committed suicide in Oct 2024, health has been declining, falls, selling her house, getting her furniture to AL. Tearful when we are talking about this. Tremor decreased when we talked through some of this. Cymbalta has helped with chronic pain and she is able to sleep somewhat better at night but, Cymbalta is not controlling anxiety and at this point I think this is the main issue and not depression. Cymbalta can exacerbate anxiety so I do not feel it is approporiate to increase the dose. May try adding a second antidepressant........will try Remeron since she is still having some difficulty with sleeping........was not sleeping when she first arrived on rehab. Start at 7.5 mg at HS. DC Trazodone. Would benefit from psychotherapy and she is agreeable to this. I reviewed the AIRCRAFT MACHINIST note and agree with her assessment. We have discussed the plan.
[2025-03-11 08:50] VITALS: BP 126/77; PULSE 63; RESP 20; TEMP 37.4; O2SAT 96
[2025-03-11] MEDS: Calcium Carb/Vitamin D 1 TABLET Tablet PO (09:05)
[2025-03-11] MEDS: Senna/Docusate Sodium 1 Tablet 2 TABLET PO (09:06)
[2025-03-11 10:00] VITALS: PULSE 63; RESP 20; O2SAT 96
--- NOTE | 2025-03-11 14:42 | CASEMGMT ---
Social Work IDT met with patient and VANESSA for Team meeting. Discussed patient's progress in PT/OT/SN. Educated to Medicare benefit and approval for 15 days with DC 03/21. Pt and VANESSA were not aware pt was receiving Medicare coverage; they thought since pt admitted from the community, she was paying privately. SW educated to Medicare benefit and acute inpatient rehab coverage. Pt and VANESSA were very grateful for the information and coverage. SW discussed pt's DC plan. Pt and VANESSA voiced pt was struggling to live at home alone prior and cannot return safely. Family has been touring ALs and the plan would be to DC from [place] to an AL, if possible. SW educated to OOP cost, part B [facility] therapies, and furnishing the AL apartment. VANESSA and pt expressed understanding and are prepared to furnish apt and provide payment to move in. SW offered to provide list of ALs or refer to places family has already toured. VANESSA requested referrals to [place] and [place]. SW to place and coordinate onsite assessments, if needed. VANESSA/pt appreciative. Will ReTeam weekly. SW will continue to assist with DC planning. Kori Ramirez MEAL PACKER ROTARY PLANER SET UP OPERATOR
--- NOTE | 2025-03-11 16:19 | CASEMGMT ---
Social Work SW returned after Team meeting and completed initial assessment with pt. See SW assessment for details pertaining to PLOF and mental health. Kori Ramirez ANALYST GEOCHEMICAL PROSPECTING WOODS LABORER
[2025-03-11] MEDS: Sodium Ferric Gluconat 125 MG in 0.9% Normal Saline 100 ML 110 MG IV (16:51)
[2025-03-11] MEDS: 0.9% Saline Lock 10 ML Syringe IV ×2 (16:51→21:37)
[2025-03-11] MEDS: 0.9% Normal Saline (250mL Bag) 250 ML 15 ML IV (16:52)
[2025-03-11 18:00] VITALS: BP 123/71; PULSE 66; RESP 17; TEMP 37; O2SAT 95
[2025-03-11] MEDS: MELATONIN 3 MG TABLET PO (21:35)
[2025-03-12 06:00] VITALS: BP 164/81; PULSE 59; RESP 16; TEMP 36.7; O2SAT 95
[2025-03-12] MEDS: Calcium Carb/Vitamin D 1 TABLET Tablet PO (09:19)
[2025-03-12 18:00] VITALS: BP 114/81; PULSE 66; RESP 16; TEMP 37.1; O2SAT 96
[2025-03-12] MEDS: Sodium Ferric Gluconat 250 MG in 0.9% Normal Saline 250 ML 135 MG IV (18:44)
[2025-03-12] MEDS: 0.9% Saline Lock 10 ML Syringe IV ×2 (18:44→21:23)
[2025-03-12] MEDS: MELATONIN 3 MG TABLET PO (21:20)
[2025-03-12] MEDS: Senna/Docusate Sodium 1 Tablet 2 TABLET PO (21:23)
[2025-03-13 05:51] VITALS: BP 159/54; PULSE 58; RESP 16; TEMP 36.6; O2SAT 95
[2025-03-13 06:33] VITALS: BMI 19.6
[2025-03-13] MEDS: Calcium Carb/Vitamin D 1 TABLET Tablet PO (08:06)
[2025-03-13] MEDS: Senna/Docusate Sodium 1 Tablet 2 TABLET PO (08:07)
[2025-03-13] MEDS: 0.9% Saline Lock 10 ML Syringe IV ×3 (08:09→22:51)
--- NOTE | 2025-03-13 08:51 | PCM.PROGNOTE ---
Subjective Subjective Afebrile Heart rate over the past 24 hours has ranged from 58-66. Blood pressure has ranged from 114/81 to 164/81. Blood pressure tends to be highest when she first gets up in the morning. Throughout the day it is well-controlled. Maintaining appropriate oxygen saturation on room air Good appetite, sleeping well at night. She did better with fluid intake yesterday and fluid balance was +843. Having regular bowel movements. Since we talked about her anxiety on Tuesday and started Remeron the tremors have been better. She is sleeping well at night and feels refreshed in the AM. She tell me that her pain is well controlled. Denies calf pain, CP, SOB. abd pain. Objective Data Objective Data Vital Signs: Vital Signs Temp Pulse Resp BP Pulse Ox O2 Del Method FiO2 97.9 F 58 L 16 159/54 H 95 Room Air 21 03/13/25 05:51 03/13/25 05:51 03/13/25 05:51 03/13/25 05:51 03/13/25 05:51 03/13/25 05:51 03/07/25 21:52 Oxygen Delivery Method Room Air Weight: 114 lb 10.246 oz Body Mass Index (BMI) 19.6 Intake & Output: Intake and Output for Last 24 Hours 03/11/25 03/12/25 03/13/25 23:59 23:59 23:59 Intake Total 681.75 / 681.75 1342.75 / 1342.75 460 / 460 Output Total 600 / 600 500 / 500 400 / 400 Balance 81.75 / 81.75 842.75 / 842.75 60 / 60 Lab / Micro Data 03/11/25 05:29 03/11/25 05:29 Micro: Microbiology 03/08/25 18:25 Stool Stool Occult Blood (TERRI) - Final Occult Blood Positive Physical Exam Const alert, oriented x3 and no apparent distress General Appearance: cooperative HEENT Mouth: dry mucous membranes Resp normal respiratory effort and clear to auscultation bilaterally Effort and Inspection: Negative for tachypneic Cardio regular rate, regular rhythm and no gallops Cardio Narrative: No ectopy GI normal to inspection, nondistended, normoactive bowel sounds, soft to palpation and non-tender GI Narrative: No guarding with palpation Extremity no calf tenderness General Extremity: Negative for edema Skin Rashes: no rashes Psych Psych Narrative: More calm now than she was at admission to rehab. Good appetite and intake and she is sleeping very well at night. Essential tremor is much less. Cooperative. Never refuses therapy and she is looking forward to [facility]. Assessment & Plan Assessment/Plan (1) Dislocation of right hip: QUALIFIERS: Qualified Code(s): S73.004D - Unspecified dislocation of right hip, subsequent encounter (2) Liver lesion: (3) Hypertension: QUALIFIERS: Hypertension type: primary hypertension Qualified Code(s): I10 - Essential (primary) hypertension (4) GERD (gastroesophageal reflux disease): QUALIFIERS: Esophagitis presence: esophagitis presence not specified Qualified Code(s): K21.9 - Gastro-esophageal reflux disease without esophagitis (5) Chronic constipation: (6) History of ischemic colitis: (7) Fracture, intertrochanteric, right femur: QUALIFIERS: Fracture type: closed Qualified Code(s): S72.141D - Displaced intertrochanteric fracture of right femur, subsequent encounter for closed fracture with routine healing (8) Anxiety: (9) Post-op pain: (10) Back pain: QUALIFIERS: Back pain location: low back pain Chronicity: chronic Back pain laterality: unspecified Sciatica presence: without sciatica Qualified Code(s): M54.50 - Low back pain, unspecified; G89.29 - Other chronic pain (11) Insomnia: QUALIFIERS: Insomnia type: due to medical condition Qualified Code(s): 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 (15) Ovarian cyst, right: PLAN: Was referred by Dr. Dewitt to [facility]. Will need to reschedule her appt since she was in the hospital at the time it was scheduled. (16) Essential tremor: (17) Heme positive stool: PLAN: Has UC and she is on a NSAID. Continue Protonix. No diarrhea/abd pain, visible blood in the stool and no mucous in the stool. Will continue to follow up with Dr. Jhaveri at [facility]. PLAN: Plan 1. Continue therapy 2. Arthritis compounded cream twice daily to both shoulders 3. Recheck a BMP and HH on Tuesday 4. Continue duloxetine 30 mg daily in the a.m. and Remeron 7.5 mg at at bedtime. Charges/Coding Visit Charges Inpatient E&M: 28698 Subs Hosp L1
[2025-03-13] MEDS: Arthritis Pain Compound 60 CLICK TUBE TOPICAL ×2 (10:14→20:53)
[2025-03-13] MEDS: Sodium Ferric Gluconat 250 MG in 0.9% Normal Saline 250 ML 135 MG IV (16:09)
[2025-03-13 18:00] VITALS: BP 148/76; PULSE 65; RESP 16; TEMP 36.5; O2SAT 96
[2025-03-13 20:30] VITALS: PULSE 65; RESP 16; O2SAT 96
[2025-03-13] MEDS: MELATONIN 3 MG TABLET PO (20:55)
[2025-03-14 06:00] VITALS: BP 161/74; PULSE 66; RESP 18; TEMP 36.2; O2SAT 93
[2025-03-14] MEDS: Arthritis Pain Compound 60 CLICK TUBE TOPICAL ×2 (06:11→21:45)
[2025-03-14] MEDS: Calcium Carb/Vitamin D 1 TABLET Tablet PO (08:31)
[2025-03-14] MEDS: Senna/Docusate Sodium 1 Tablet 2 TABLET PO ×2 (08:32→21:45)
[2025-03-14 08:35] VITALS: BP 139/62; PULSE 64
--- NOTE | 2025-03-14 09:46 | CASEMGMT ---
[facility] accept pt. - ANUPAMA spoke with pt and she chose [facility]. VANESSA is going to sign the contract and provide payment this date in preparation for DC 03/21. - ANUPAMA notified both facilities. [facility] confirmed. - ANUPAMA will continue to follow to finalize DC plans. Kori Ramirez [employer] RAYON WINDER
--- NOTE | 2025-03-14 10:28 | PN_ITS ---
Subjective Subjective Afebrile Heart rate has ranged from 58-66 over the past 24 hours. Blood pressure has ranged from 139/62 to 161/74. Maintaining appropriate oxygen saturation on room air. Good appetite and fluid intake. Incontinent of stool yesterday. Has not been incontinent of urine. Hemoglobin A1c is 5.9. This is consistent with glucose intolerance. Chuyita tells me she is sleeping well at night and she has a good appetite. She denies lightheadedness, chest pain, shortness of breath, cough, nausea/vomiting/abdominal pain, dysuria and calf tenderness. She does complain of pain in the right lower extremity but it is tolerable and she feels it is adequately controlled. Objective Data Objective Data Vital Signs: Vital Signs Temp Pulse Resp BP Pulse Ox O2 Del Method FiO2 97.2 F L 64 18 139/62 H 93 Room Air 21 03/14/25 06:00 03/14/25 08:35 03/14/25 06:00 03/14/25 08:35 03/14/25 06:00 03/14/25 06:00 03/07/25 21:52 Oxygen Delivery Method Room Air Weight: 114 lb 10.246 oz Body Mass Index (BMI) 19.6 Intake & Output: Intake and Output for Last 24 Hours 03/12/25 03/13/25 03/14/25 23:59 23:59 23:59 Intake Total 1342.75 / 1342.75 1497.5 / 1497.5 290 / 290 Output Total 500 / 500 700 / 700 600 / 600 Balance 842.75 / 842.75 797.5 / 797.5 -310 / -310 Lab / Micro Data 03/15/25 05:27 03/15/25 05:27 Labs: Laboratory Results - last 24 hr 03/14/25 08:37: Hemoglobin A1c 5.9 H Micro: Microbiology 03/08/25 18:25 Stool Stool Occult Blood (TERRI) - Final Occult Blood Positive Physical Exam Const alert, oriented x3 and no apparent distress General Appearance: cooperative HEENT Mouth: dry mucous membranes Resp normal respiratory effort and clear to auscultation bilaterally Effort and Inspection: Negative for tachypneic Cardio regular rate, regular rhythm and no gallops Cardio Narrative: No ectopy GI normal to inspection, nondistended, normoactive bowel sounds, soft to palpation and non-tender GI Narrative: No guarding with palpation Extremity no calf tenderness General Extremity: Negative for edema Skin Rashes: no rashes Psych Psych Narrative: Having some anxiety about leaving rehab and moving into [facility] living. Worried about her cat and about the other people at [facility]. When she gets anxious the essential tremor is increased but when you are talking to her and she calms down the tremors almost completely disappear. Assessment & Plan Assessment/Plan (1) Debility: (2) Dislocation of right hip: QUALIFIERS: Qualified Code(s): S73.004D - Unspecified dislocation of right hip, subsequent encounter (3) Iron deficiency anemia: QUALIFIERS: Iron deficiency anemia type: chronic blood loss Q ualified Code(s): D50.0 - Iron deficiency anemia secondary to blood loss (chronic) (4) Heme positive stool: (5) Ischemic colitis: (6) Essential tremor: (7) Ovarian cyst, right: PLAN: She is to follow up at [facility] post DC from rehab. (8) Hyponatremia: (9) History of SIADH: (10) Depression: QUALIFIERS: Depression Type: unspecified Qualified Code(s): F32.A - Depression, unspecified (11) Anxiety: (12) Osteoarthritis: QUALIFIERS: Osteoarthritis location: multiple joints O steoarthritis type: primary Qualified Code(s): M15.0 - Primary generalized (osteo)arthritis (13) Generalized weakness: (14) Hypertension: QUALIFIERS: Hypertension type: primary hypertension Qualified Code(s): I10 - Essential (primary) hypertension PLAN: Plan 1. Continue therapy 2. Planning discharge for , 03/21/2025 to [facility]. 3. Would benefit from psychotherapy following discharge. 4. Home health care for PT/OT at discharge 5. No changes to the drug regimen today. 6. Will need to follow-up at [facility] for ovarian mass/cyst 7. She would like to follow-up with an orthopedic physician in [place] rather than the physician who performed the ORIF of the right hip fracture in the past. She has seen Dr. Gomez before and would like to follow-up with him. Charges/Coding Visit Charges Inpatient E&M: 42785 Subs Hosp L2
[2025-03-14 18:00] VITALS: BP 142/71; PULSE 69; RESP 16; TEMP 36.6; O2SAT 94
[2025-03-14 21:30] VITALS: PULSE 69; RESP 16; O2SAT 94
[2025-03-14] MEDS: Polyethylene Glycol 3350 17 GM PACKET PO (21:43)
[2025-03-14] MEDS: MELATONIN 3 MG TABLET PO (21:44)
[2025-03-15 05:29] VITALS: BP 145/75; PULSE 62; RESP 16; TEMP 36.2; O2SAT 95
[2025-03-15 05:37] LABS: Hematocrit 29.6 % (37-47); Hemoglobin 10.0 g/dL (12.0-15.0)
[2025-03-15] MEDS: Arthritis Pain Compound 60 CLICK TUBE TOPICAL ×2 (08:09→20:19)
[2025-03-15] MEDS: Senna/Docusate Sodium 1 Tablet 2 TABLET PO ×2 (08:15→20:17)
[2025-03-15] MEDS: Calcium Carb/Vitamin D 1 TABLET Tablet PO (08:15)
[2025-03-15 09:15] LABS: Anion Gap 10 (5-15); BUN 27 mg/dL (4-19); BUN/Creat Ratio 42.5 RATIO (10-20); Calcium,Total 9.3 mg/dL (7.6-11.0); Carbon Dioxide 25.2 mmol/L (21.0-32.0); Chloride 100 mmol/L (98-108); Estimated Creatinine Clearance 44.51 ml/min (50-250); Glucose 92 mg/dL (70-99); Potassium 4.9 mmol/L (3.3-5.1)
[2025-03-15 18:00] VITALS: BP 140/63; PULSE 67; RESP 17; TEMP 37.2; O2SAT 93
[2025-03-15 19:45] VITALS: PULSE 67; RESP 17; O2SAT 93
[2025-03-15] MEDS: MELATONIN 3 MG TABLET PO (20:16)
[2025-03-15] MEDS: Polyethylene Glycol 3350 17 GM PACKET PO (20:19)
[2025-03-16 06:00] VITALS: BP 157/74; PULSE 64; RESP 16; TEMP 36.8; O2SAT 96
[2025-03-16] MEDS: Arthritis Pain Compound 60 CLICK TUBE TOPICAL ×2 (07:04→22:27)
[2025-03-16 08:46] VITALS: BP 132/59; PULSE 68
[2025-03-16] MEDS: Calcium Carb/Vitamin D 1 TABLET Tablet PO (08:49)
[2025-03-16 18:00] VITALS: BP 125/62; PULSE 64; RESP 18; TEMP 37.1; O2SAT 96
[2025-03-16] MEDS: MELATONIN 3 MG TABLET PO (22:28)
[2025-03-16] MEDS: Senna/Docusate Sodium 1 Tablet 2 TABLET PO (22:31)
[2025-03-16] MEDS: Polyethylene Glycol 3350 17 GM PACKET PO (22:34)
[2025-03-17] MEDS: Arthritis Pain Compound 60 CLICK TUBE TOPICAL ×2 (05:42→23:59)
[2025-03-17 05:53] VITALS: BP 122/66; PULSE 64; RESP 16; TEMP 36.3; O2SAT 97
[2025-03-17] MEDS: Calcium Carb/Vitamin D 1 TABLET Tablet PO (08:06)
[2025-03-17] MEDS: Senna/Docusate Sodium 1 Tablet 2 TABLET PO (08:11)
[2025-03-17 08:14] VITALS: BP 127/60; PULSE 65
[2025-03-17 18:00] VITALS: BP 116/59; PULSE 69; RESP 15; TEMP 36.8; O2SAT 96
[2025-03-17 23:15] VITALS: BP 127/64; PULSE 63; RESP 16; TEMP 36.6; O2SAT 96
[2025-03-17] MEDS: Polyethylene Glycol 3350 17 GM PACKET PO (23:58)
[2025-03-18] MEDS: MELATONIN 3 MG TABLET PO ×2 (00:01→22:47)
[2025-03-18] MEDS: Senna/Docusate Sodium 1 Tablet 2 TABLET PO ×3 (00:03→22:48)
[2025-03-18 06:00] VITALS: BP 137/65; PULSE 57; RESP 16; TEMP 36.3; O2SAT 95
[2025-03-18] MEDS: Arthritis Pain Compound 60 CLICK TUBE TOPICAL ×2 (06:53→22:47)
[2025-03-18] MEDS: Calcium Carb/Vitamin D 1 TABLET Tablet PO (08:16)
--- NOTE | 2025-03-18 08:34 | DS.PCM_ITS ---
Providers Date of Admission: 03/06/25 Date of Discharge: 03/21/25 Primary Care Physician: Dr. Rolf Peck MD Reason For Visit: DEBILITY Diagnosis Discharge Diagnosis (1) Dislocation of right hip: Status: Inactive Code(s): S73.004A - Unspecified dislocation of right hip, initial encounter Qualifiers: Qualified Code(s): S73.004D - Unspecified dislocation of right hip, subsequent encounter Plan: 1. Continue with therapy 2. PT OT evaluation and treatment 3. Scheduled Tylenol and oxycodone for pain management (2) Liver lesion: Status: Acute Code(s): K76.9 - Liver disease, unspecified Plan: 1. Continue to monitor 2. Recommend follow-up with GI (3) Hypertension: Status: Chronic Code(s): I10 - Essential (primary) hypertension Qualifiers: Hypertension type: primary hypertension Qualified Code(s): I10 - Essential (primary) hypertension Plan: 1. Vital signs every shift 2. Lisinopril 20 mg p.o. daily (4) GERD (gastroesophageal reflux disease): Status: Acute Code(s): K21.9 - Gastro-esophageal reflux disease without esophagitis Qualifiers: Esophagitis presence: esophagitis presence not specified Qualified Code(s): K21.9 - Gastro-esophageal reflux disease without esophagitis Plan: 1. Protonix 40 mg p.o. daily (5) Chronic constipation: Status: Chronic Code(s): K59.09 - Other constipation Plan: 1. Monitor for constipation 2 Senna sent to pharmacy to take while on opioids (6) History of ischemic colitis: Status: Acute Code(s): Z87.19 - Personal history of other diseases of the digestive system Plan: 1. Continue to monitor 2. Patient is familiar with dietary restrictions to prevent pain (7) Fracture, intertrochanteric, right femur: Status: Acute Code(s): S72.141A - Displaced intertrochanteric fracture of right femur, initial encounter for closed fracture Qualifiers: Fracture type: closed Qualified Code(s): S72.141D - Displaced intertrochanteric fracture of right femur, subsequent encounter for closed fracture with routine healing Plan: 1. Continue to monitor 2. Resolved. 3. Right knee immobilizer until cleared by ortho (8) Post-op pain: Status: Acute Code(s): G89.18 - Other acute postprocedural pain Plan: 1. Scheduled acetaminophen 1000 mg p.o. every 8 hours 2. Scheduled oxycodone 5 mg p.o. every 8 hours. Will change to as needed once pain is controlled. (9) Back pain: Status: Acute Code(s): M54.9 - Dorsalgia, unspecified Qualifiers: Back pain laterality: unspecified Back pain location: low back pain C hronicity: chronic Sciatica presence: without sciatica Qualified Code(s): M 54.50 - Low back pain, unspecified; G89.29 - Other chronic pain Plan: 1. Continue to monitor. 2. Continue patient's oxycodone and Tylenol, scheduled (10) Insomnia: Status: Acute Code(s): G47.00 - Insomnia, unspecified Qualifiers: Insomnia type: due to medical condition Qualified Code(s): G47.01 - Insomnia due to medical condition Plan: 1. utilization of relaxation exercises/deep breathing exercises 2. Melatonin 3 mg p.o. at bedtime 3. Low dose Remeron 7.5mg PO QHS ordered PRN (11) History of SIADH: Status: Acute Code(s): Z86.39 - Personal history of other endocrine, nutritional and metabolic disease Plan: 1. fluid restriction of 1200 cc daily. (12) History of iron deficiency anemia: Status: Acute Code(s): Z86.2 - Personal history of diseases of the blood and blood-forming organs and certain disorders involving the immune mechanism Plan: 1. Check iron studies. Showed iron low at 20, TIBC low at 188, iron saturation 11.0 low, unsaturated low at 168. 2. Ferrous sulfate 325 mg p.o. daily 3. Monitor for bleeding 4. Follow up with PCP (13) Ovarian cyst, right: Status: Acute Code(s): N83.201 - Unspecified ovarian cyst, right side Plan: 1. Follow up with [facility] (14) Essential tremor: Status: Acute Code(s): G25.0 - Essential tremor Plan: relaxation exercises (15) Heme positive stool: Status: Acute Code(s): R19.5 - Other fecal abnormalities Plan: follow up with GI Plan (1) Dislocation of right hip: QUALIFIERS: Qualified Code(s): S73.004D - Unspecified dislocation of right hip, subsequent encounter *Continue with therapies *Fall preacutions (2) Liver lesion: * Follow-up as needed with GI (3) Hypertension: QUALIFIERS: Hypertension type: primary hypertension Qualified Code(s): I10 - Essential (primary) hypertension *Continue home lisinopril *Vital signs every shift (4) GERD (gastroesophageal reflux disease): QUALIFIERS: Esophagitis presence: esophagitis presence not specified Qualified Code(s): K21.9 - Gastro-esophageal reflux disease without esophagitis *Continue PPI (5) Chronic constipation: *Continue with bowel regimen (6) History of ischemic colitis: *Closely monitor (7) Fracture, intertrochanteric, right femur: QUALIFIERS: Fracture type: closed Qualified Code(s): S72.141D - Displaced intertrochanteric fracture of right femur, subsequent encounter for closed fracture with routine healing *Continue with therapies *Pain control *Utilization of knee immobilizer (8) Anxiety: *Deep breathing exercises *Continue to monitor (9) Post-op pain: *Continue with scheduled pain medications Tylenol and oxycodone. *Continue to monitor for pain (10) Back pain: QUALIFIERS: Back pain laterality: unspecified Back pain location: low back pain Chronicity: chronic Sciatica presence: without sciatica Qualified Code(s): M 54.50 - Low back pain, unspecified; G89.29 - Other chronic pain *Continue with scheduled pain medications: Tylenol and oxycodone *Continue to monitor for pain (11) Insomnia: QUALIFIERS:Insomnia type: due to medical condition Qualified Code(s): G47.01 - Insomnia due to medical condition *Melatonin 3 mg p.o. 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 [place] fluid restriction of 1200 cc daily. Start sodium chloride tabs 1 g p.o. twice daily. Lasix 40 mg x 1. BMP done this AM (13) Hyponatremia: (Resolving) *Fluid restriction of 1200 mL/day *Sodium chloride tablet 1 g p.o. twice daily *BMP on 03/11 showed improvement of sodium (14) History of iron deficiency anemia: PLAN: Check iron studies. Check a Hemoccult stool. *Ferrous sulfate 325 mg p.o. daily Medications at Discharge Home Medications lisinopril 20 mg tablet 20 mg PO DAILY blood pressure 10/23/21 calcium 600 mg (as carbonate)-vitamin D3 5 mcg (200 unit) tablet 1 tab PO DAILY supplement 09/20/22 pantoprazole 40 mg tablet,delayed release 40 mg PO DAILY reflux #30 tabs 12/13/23 ferrous sulfate 325 mg (65 mg iron) tablet (Feosol) 325 mg PO DAILY supplement 03/07/24 celecoxib 200 mg capsule 200 mg PO DAILY pain 06/12/24 primidone 50 mg tablet 50 mg PO QHS Essential Tremor 06/12/24 dicyclomine 10 mg capsule 10 mg PO BID IBS 30 days #60 caps 01/09/25 mesalamine 1.2 gram tablet,delayed release 1.2 g PO DAILY IBS 30 days #30 tabs 01/09/25 acetaminophen 500 mg tablet 1,000 mg PO Q8 PRN pain 03/06/25 duloxetine 30 mg capsule,delayed release 30 mg PO DAILY Depression 03/06/25 Arthritis Pain Compound 2 click topical 0600,2200 7 days #60 GMS 03/18/25 melatonin 3 mg tablet 3 mg PO QHS 7 days #7 tabs 03/18/25 mirtazapine 15 mg tablet 7.5 mg (1/2 x 15 mg) PO QHS 7 days #4 tabs 03/18/25 oxycodone 5 mg tablet 5 mg PO Q8 HIP PAIN 7 days #21 tabs 03/18/25 sennosides 8.6 mg-docusate sodium 50 mg tablet (Stimulant Laxative Plus) 2 tab PO BID 7 days #28 tabs 03/18/25 Hospital Course Procedures - (post reduction of R hip dislocation ) Summary of Care Provided Minutes Spent on Discharge: 88 Hospital Course: Pt had difficulty with pain management and insomnia during her visit, in addition to debility associated with R hip dislocation. Scheduled Tylenol and Oxycododne have been helpful in achieving successful pain management. Pt was given low dose Remeron and Melatonin to assist with sleep. Anxiety has been a problem in which we saw worsening essential tremors with out increased anxiety. relaxation and distraction techniques taught, which have improved essential tremors. Pt would benefit from outpatient therapy. Physical Exam Const alert and oriented x3 Constitutional Narrative: Pt is very anxious today. She will be going to assisted living and she is worried about her cat, Serene. She is concerned about her cat adjusting to the new living arrangments. She shared that her dog in August. Chuyita has experienced a lot of loss in the last year. She also shared her anxiety about eating in front of people because of her tremors. Chuyita and I had an extensive discussion about her anxiety and how it increases her tremors. She states that she will remember to do her breathing exercises. to assist with anxiety. We also discussed changing her thought processes when her anxiety gets out of control. She understands that she can concentrate on the things she can change and influence. She feels more confident in her abilities to change her though patterns after our discussion. I fell that Chuyita would greatly benefit from out patient counseling/psych therapy. Chuyita feels this will also be helpful for her. By the end of our conversation, Rohits tremors had improved significantly. When pointed out to her, she was able to see her improvement and understand how relaxation and how taking her mind off of the tremors has improved them. All questions answered. Dr. Morton updated General Appearance: cooperative, well kempt and anxious Orientation / Consciousness: awake, oriented to person and oriented to place Exam Limitations: no limitations Nutritional Appearance: thin HEENT normocephalic Mouth: oral and palatal mucosa normal Eyes PERRL General Eye: normal appearance of both eyes Pupil: PERRL Neck full ROM Chest Chest: symmetrical chest wall rise Resp normal respiratory effort, normal air movement, no retractions and no use of accessory muscles Effort and Inspection: able to speak in complete sentences Auscultation: clear to auscultation bilaterally Cardio regular rate, regular rhythm, S1 normal heart sound and S2 normal heart sound Peripheral Pulses: pulses 2+ throughout GI normal to inspection, nondistended, normoactive bowel sounds Palpation: soft Rectal Exam: deferred no CVA tenderness Back/Spine Back/Spine Narrative: low back discomfort to the R side Thoracic Spine / Upper Back: pain with ROM Lumbar Spine / Lower Back: pain with ROM Extremity Extremity Narrative: Right leg immobilizer Peripheral Pulses: Yes pulses 2+ throughout Right Lower Extremity: hip joint other (pain to the R hip and knee) Skin no rashes or lesions noted General Skin Exam: no breakdown Neuro oriented x3 and CN's II-XII intact bilaterally Sensorium / Orientation: awake, alert, oriented to person, oriented to place and oriented to time Psych mental status grossly normal Appearance: grossly normal, appropriate and well kempt Speech: normal speech Mood & Affect: anxious and other Pt is going to assisted living on and she is anxious about the move Thought Process: normal thought process Thought Content: normal thought content Weight / BMI Weight Weight: 114 lb 10.246 oz Body Mass Index (BMI) 19.6 ABG / Lab / Microbiology Data Attestation: I reviewed the patient's lab results. 03/15/25 05:27 03/15/25 05:27 Microbiology: Microbiology 03/08/25 18:25 Stool Stool Occult Blood (TERRI) - Final Occult Blood Positive Indicators for Scoring Admitted with or Primary Diagnosis of CVA/Stroke: No Hx of CVA/Stroke: No Modified [place] Score MRS Score at time of Evaluation: 2-Slight disability D/C Instructions Diet Diet Order/Speech Therapy: INPATIENT Hospital Diet / Speech Therapy Order(s) 03/06/25 16:15 Diet: Regular - General Food consistency:: Regular Liquid Consistency:: Regular/Thin Type of Dietary Supplement:: Magic Cup Dessert Fluid restriction:: 1200 mL Diet Comments: vanilla or schrader magic cup with lunch and dinner, 200ML FLUIDS P/MEAL Discharge order: Continue INPATIENT Hospital Diet / Speech Therapy Orders: Yes DC O2, CPAP, BIPAP Needs RN Home O2 qualification: 2 No Data to Display PSN CPAP & BiPAP: BiPAP & CPAP Settings per PSN Fraction of Inspired Oxygen ( 21 03/07/25 21:52 FIO2) Home O2 Discharge instructions: No Please Follow Up With: Pedro Jhaveri MD When: next available appointment Meaningful Use Info Meaningful Use Meaningful Use Diagnoses (Choose all that apply): None applicable Ischemic Stroke Statin Dosing Therapy Reference: STATIN DOSE THERAPY REFERENCE: * Patients > 75 years receive moderate or high dose statin therapy. * Patients 75 years or YOUNGER should receive HIGH intensity statin dose unless contraindicated. You will be required to document reason for non-treatment if statin daily dose does not meet guidelines. HIGH DOSE STATIN THERAPY DAILY Atorvastatin > than or = to 40 mg Rosuvastatin > than or = to 20 mg Amlodipine + Atorvastatin > than or = to 2.5/40 mg Ezetimibe + Simvastatin 10/80 mg Simvastatin 80mg Discharge Plan Admission Admit Date/Time: 03/06/25 15:36 Primary Reason for Your Visit: debility Attending Provider: Justina Perea Primary Care Provider: Rolf Peck Instructions Additional Instructions / Restrictions: Patient needs a wheelchair: The patient has a mobility limitation that cannot be sufficiently resolved by using a cane or walker. Use of a w/c will improve the participation in ADL's on a regular basis, in the home. Discharge Orders/Prescriptions Prescriptions: New Arthritis Pain Compound 2 click topical 0600,2200 7 Days Qty: 60 0RF Rx Instructions: APPLY USING A FINGER TIP AMOUNT TO AFFECTED AREA(S) UP TO 3 TIMES A DOAY sennosides-docusate sodium [Stimulant Laxative Plus] 8.6-50 mg Tablet 2 tab PO BID 7 Days Qty: 28 0RF Rx Instructions: PLEASE TAKE LONG YOU ARE TAKING OPIOID PAIN MEDICATIONS melatonin 3 mg Tablet 3 mg PO QHS 7 Days Qty: 7 0RF Rx Instructions: TAKE ONE HOUR BEFORE BEDTIME mirtazapine 15 mg Tablet 7.5 mg PO QHS 7 Days Qty: 4 0RF Rx Instructions: TAKE AT BEDTIME oxycodone 5 mg Tablet 5 mg PO Q8 7 Days Qty: 21 0RF Rx Instructions: TAKE FOR PAIN EVERY 8 HOURS Continued mesalamine 1.2 gram tablet,delayed release (DR/EC) 1.2 g PO DAILY 30 Days Qty: 30 1RF dicyclomine 10 mg capsule 10 mg PO BID 30 Days Qty: 60 3RF lisinopril 20 mg tablet 20 mg PO DAILY calcium carbonate-vitamin D3 600 mg-5 mcg (200 unit) Tablet 1 tab PO DAILY pantoprazole 40 mg Tablet,Delayed Release (Dr/Ec) 40 mg PO DAILY Qty: 30 0RF ferrous sulfate [Feosol] 325 mg (65 mg iron) tablet 325 mg PO DAILY celecoxib 200 mg capsule 200 mg PO DAILY primidone 50 mg tablet 50 mg PO QHS Patient Comments: 25mg by mouth once daily at bedtime for essential tremor acetaminophen 500 mg tablet 1,000 mg PO Q8 PRN (Reason: pain) duloxetine 30 mg capsule,delayed release(DR/EC) 30 mg PO DAILY Discontinued oxycodone 5 mg tablet 5 mg PO Q6H PRN (Reason: pain) lorazepam 0.5 mg tablet 0.5 mg PO BID PRN PRN (Reason: anxiety) Referrals / Follow Up: Rolf Peck MD [Primary Care Provider] - 04/03/25 3:00 pm Disposition Disposition (needs filled in before D/C Order can be placed): Assisted Living Charges/Coding Visit Charges Inpatient E&M: 68052 Disch Hosp >30min
--- NOTE | 2025-03-18 13:18 | CASEMGMT ---
Addendum entered by Kori Ramirez 03/20/25 11:40: ANUPAMA phoned referral to [facility] for PT/OT. Addendum entered by Kori Ramirez 03/19/25 13:21: ANUPAMA received return call from [facility] and scheduled appt for 04/03 at 1300 Addendum entered by Kori Ramirez 03/18/25 15:12: Mat confirmed [place] can transport at 1330 with w/c van. Received return call from [facility] - stenographer secretary has a message out to the previous counselor pt was active with to inquire about returning or getting established with a new counselor, then stenographer secretary will contact this worker shortly. Original Note: Social Work IDT met with patient and VANESSA for care plan meeting. Discussed patient's progress in PT/OT/SN/MD. Confirmed Medicare DC 03/21 to [facility]. SW to coordinate skilled HHC for PT/OT. SW provided list of skilled HHC agencies within geographical area, INN with insurance, that include quality and resource data via [employer] guide. Pt/VANESSA to review and notify this worker of choices. Therapy recommending 18 in. w/c w/[facility]. SW to coordinate through [employer] and deliver to pt's room prior to DC. Therapy also recommending w/c transport at DC. SW to inquire with [facility], if not, will contact [facility] as family does not want to pay OOP for [facility] for a short commute. SW inquired with pt if [facility]ooter followed up with pt. Pt denied. SW to follow up. SW will continue to follow for finalize DC planning. - ANUPAMA sent referral to [facility] for w/c. ANUPAMA emailed Mat to inquire about transport. ANUPAMA phoned [facility] to inquire about scheduling first appt - left VM. Plan: DC 03/21 to [facility], [facility] PT/OT, 18 in. w/c w/[facility] Kori CHISHOLMW
[2025-03-18 16:57] VITALS: BP 126/66; PULSE 63; RESP 16; TEMP 36.7; O2SAT 96
[2025-03-18 22:45] VITALS: PULSE 63; RESP 16; O2SAT 96
[2025-03-18] MEDS: Polyethylene Glycol 3350 17 GM PACKET PO (22:47)
[2025-03-19 05:16] VITALS: BP 144/67; PULSE 54; RESP 16; TEMP 36.1; O2SAT 96
[2025-03-19] MEDS: Arthritis Pain Compound 60 CLICK TUBE TOPICAL ×2 (06:31→21:32)
[2025-03-19] MEDS: Senna/Docusate Sodium 1 Tablet 2 TABLET PO ×2 (08:25→21:32)
[2025-03-19] MEDS: Calcium Carb/Vitamin D 1 TABLET Tablet PO (08:26)
[2025-03-19 08:32] VITALS: PULSE 61; RESP 16; O2SAT 99
--- NOTE | 2025-03-19 12:04 | PN_ITS ---
Subjective Subjective Afebrile VSS - Maintaining appropriate oxygen saturation on RA Oral intake - FOOD good FLUIDS chronically poor -she is on 1200 cc a day fluid restriction but more often than not she drinks < 1,000 daily. Yesterday the intake was recorded at 470 for the day. Discussed with nursing - no problems that need addressed Reviewed the THERAPY notes Medication list reviewed. Tells me that the pain in the RLE is easier to tolerate now with wt bearing. She denies lightheadedness, chest pain, shortness of breath, palpitations, nausea/vomiting/abdominal pain, dysuria and calf tenderness. Sleeping well at night and has a good appetite. Very pleasant and outgoing. Seems calmer today......razia after we get talking and she is distracted. Objective Data Objective Data Vital Signs: Vital Signs Temp Pulse Resp BP Pulse Ox O2 Del Method FiO2 97 F L 61 16 144/67 H 99 Room Air 21 03/19/25 05:16 03/19/25 08:32 03/19/25 08:32 03/19/25 05:16 03/19/25 08:32 03/19/25 08:32 03/07/25 21:52 Oxygen Delivery Method Room Air Weight: 114 lb 10.246 oz Body Mass Index (BMI) 19.6 Intake & Output: Intake and Output for Last 24 Hours 03/17/25 03/18/25 03/19/25 23:59 23:59 23:59 Intake Total 1340 / 1340 470 / 470 160 / 160 Output Total 1275 / 1275 875 / 875 800 / 800 Balance 65 / 65 -405 / -405 -640 / -640 Lab / Micro Data 03/15/25 05:27 03/15/25 05:27 Micro: Microbiology 03/08/25 18:25 Stool Stool Occult Blood (TERRI) - Final Occult Blood Positive Physical Exam Const alert, oriented x3 and no apparent distress Resp normal respiratory effort, normal air movement, no retractions and no use of accessory muscles Effort and Inspection: able to speak in complete sentences Auscultation: clear to auscultation bilaterally Cardio regular rate, regular rhythm, S1 normal heart sound, S2 normal heart sound and no gallops Cardio Narrative: No ectopy GI normal to inspection, nondistended, normoactive bowel sounds and soft to palpation Palpation: soft Extremity Extremity Narrative: Right leg immobilizer Skin no rashes or lesions noted General Skin Exam: no breakdown Assessment & Plan Assessment/Plan (1) Debility: (2) Dislocation of right hip: QUALIFIERS: Qualified Code(s): S73.004D - Unspecified dislocation of right hip, subsequent encounter (3) Iron deficiency anemia: QUALIFIERS: Iron deficiency anemia type: chronic blood loss Q ualified Code(s): D50.0 - Iron deficiency anemia secondary to blood loss (chronic) (4) Heme positive stool: (5) Ischemic colitis: (6) Essential tremor: (7) Ovarian cyst, right: (8) Hyponatremia: (9) History of SIADH: (10) Depression: QUALIFIERS: Depression Type: unspecified Qualified Code(s): F32.A - Depression, unspecified (11) Anxiety: (12) Osteoarthritis: QUALIFIERS: Osteoarthritis location: multiple joints O steoarthritis type: primary Qualified Code(s): M15.0 - Primary generalized (osteo)arthritis (13) Generalized weakness: (14) Hypertension: QUALIFIERS: Hypertension type: primary hypertension Qualified Code(s): I10 - Essential (primary) hypertension PLAN: Plan 1. Continue therapy 2. Plan discharge for , 03/21/2025 3. Check a CBC and BMP in the a.m. 4. Check orthostatic vital signs today - they were negative. Charges/Coding Visit Charges Inpatient E&M: 62384 Subs Hosp L1
[2025-03-19 12:11] VITALS: BP 137/71; BP 142/59; BP 148/84; PULSE 59; PULSE 62; PULSE 75
[2025-03-19 16:40] VITALS: BP 144/71; PULSE 68; RESP 17; TEMP 36.9; O2SAT 96
[2025-03-19] MEDS: Polyethylene Glycol 3350 17 GM PACKET PO (21:32)
[2025-03-19] MEDS: MELATONIN 3 MG TABLET PO (21:33)
[2025-03-20 04:12] VITALS: BMI 19.3
[2025-03-20 05:46] LABS: Hematocrit 30.1 % (37-47); Hemoglobin 10.4 g/dL (12.0-15.0); Mean Corp Hgb Conc 34.6 g/dL (32-36); Mean Corpuscular Volume 95.0 fL (81-99); Mean Platelet Vol. 8.7 fl (6.2-12.0); Platelet Count 443 K/mm3 (150-450); RBC Distribution Width CV 15.4 % (11.6-14.6); RBC Distribution Width SD 53.1 fl (35.1-43.9); Red Blood Count 3.17 M/mm3 (4.2-5.4); White Blood Count 6.7 K/mm3 (4.4-11.0)
[2025-03-20] MEDS: Arthritis Pain Compound 60 CLICK TUBE TOPICAL ×2 (05:53→20:29)
[2025-03-20 06:00] VITALS: BP 137/61; PULSE 52; RESP 15; TEMP 36.3; O2SAT 96
[2025-03-20 06:24] LABS: Anion Gap 10 (5-15); BUN 31 mg/dL (4-19); BUN/Creat Ratio 42.4 RATIO (10-20); Calcium,Total 9.2 mg/dL (7.6-11.0); Carbon Dioxide 24.6 mmol/L (21.0-32.0); Chloride 96 mmol/L (98-108); Estimated Creatinine Clearance 43.82 ml/min (50-250); Glucose 88 mg/dL (70-99); Potassium 4.9 mmol/L (3.3-5.1)
[2025-03-20] MEDS: Senna/Docusate Sodium 1 Tablet 2 TABLET PO ×2 (08:13→20:30)
[2025-03-20] MEDS: Calcium Carb/Vitamin D 1 TABLET Tablet PO (08:13)
--- NOTE | 2025-03-20 08:35 | PN_ITS ---
Subjective Subjective Afebrile Heart rate has ranged from 52-68 over the past 24 hours. The blood pressure has ranged from 137/61 to 144/71 over the past 24 hours.Goal is < 140/80. Maintaining appropriate oxygen saturation on room air. All lab from this morning was personally reviewed. White blood cell count is normal at 6.7. The hemoglobin is stable at 10.4 and platelets are within normal limits. Sodium is 131 (down from 136 on 03/11........salt tabs were discontinued) and the potassium is 4.9. The BUN is 31 with a creatinine of 0.73. Has been on fluid restriction. Will need to restart salt tabs BID Slept well last night. No complaints. Objective Data Objective Data Vital Signs: Vital Signs Temp Pulse Resp BP Pulse Ox O2 Del Method FiO2 97.4 F L 52 L 15 137/61 H 96 Room Air 21 03/20/25 06:00 03/20/25 06:00 03/20/25 06:00 03/20/25 06:00 03/20/25 06:00 03/20/25 06:00 03/07/25 21:52 Oxygen Delivery Method Room Air Weight: 112 lb 14.027 oz Body Mass Index (BMI) 19.3 Intake & Output: Intake and Output for Last 24 Hours 03/18/25 03/19/25 03/20/25 23:59 23:59 23:59 Intake Total 470 / 470 1180 / 1180 Output Total 875 / 875 1150 / 1300 700 / 700 Balance -405 / -405 30 / -120 -700 / -700 Lab / Micro Data 03/20/25 05:08 03/20/25 05:08 Labs: Laboratory Results - last 24 hr 03/20/25 05:08: WBC 6.7, RBC 3.17 L, Hgb 10.4 L, Hct 30.1 L, MCV 95.0, MCH 32.8 H, MCHC 34.6, RDW Std Deviation 53.1 H, RDW Coeff of Cas 15.4 H, Plt Count 443, MPV 8.7, Sodium 131 L, Potassium 4.9, Chloride 96 L, Carbon Dioxide 24.6, Anion Gap 10, BUN 31 H, Creatinine 0.73, Estim Creat Clear Calc 43.82 L, Est GFR (MDRD) Non-Af 83, BUN/Creatinine Ratio 42.4 H, Glucose 88, Calcium 9.2 Micro: Microbiology 03/08/25 18:25 Stool Stool Occult Blood (TERRI) - Final Occult Blood Positive Physical Exam Const alert, oriented x3 and no apparent distress Resp normal respiratory effort Effort and Inspection: able to speak in complete sentences Auscultation: clear to auscultation bilaterally Cardio regular rate, regular rhythm and no gallops Cardio Narrative: No ectopy GI normal to inspection, nondistended, normoactive bowel sounds and soft to palpation Palpation: soft Extremity Extremity Narrative: Right leg immobilizer Skin no rashes or lesions noted General Skin Exam: no breakdown Psych Psych Narrative: much less anxious than at admission to rehab. Assessment & Plan Assessment/Plan (1) Debility: (2) Dislocation of right hip: QUALIFIERS: Qualified Code(s): S73.004D - Unspecified dislocation of right hip, subsequent encounter (3) Iron deficiency anemia: QUALIFIERS: Iron deficiency anemia type: chronic blood loss Q ualified Code(s): D50.0 - Iron deficiency anemia secondary to blood loss (chronic) (4) Heme positive stool: (5) Ischemic colitis: (6) Essential tremor: (7) Ovarian cyst, right: (8) Hyponatremia: (9) History of SIADH: (10) Depression: QUALIFIERS: Depression Type: unspecified Qualified Code(s): F32.A - Depression, unspecified (11) Anxiety: (12) Osteoarthritis: QUALIFIERS: Osteoarthritis location: multiple joints O steoarthritis type: primary Qualified Code(s): M15.0 - Primary generalized (osteo)arthritis (13) Generalized weakness: (14) Hypertension: QUALIFIERS: Hypertension type: primary hypertension Qualified Code(s): I10 - Essential (primary) hypertension PLAN: Plan 1. Plan discharge to [facility] living tomorrow 2. Nursing will schedule a follow-up appointment with Dr. Gomez for right hip dislocation. Patient prefers to follow-up in [place] for this problem rather than following up with the orthopedic physician who did the hip surgery. 3. Restart salt tablets 1 g p.o. twice daily. Needs a BMP in 7 to 10 days. Charges/Coding Visit Charges Inpatient E&M: 37104 Subs Hosp L1
[2025-03-20 08:40] VITALS: BP 132/56; PULSE 70
[2025-03-20 18:00] VITALS: BP 124/55; PULSE 67; RESP 16; TEMP 36.4; O2SAT 96
[2025-03-20] MEDS: MELATONIN 3 MG TABLET PO (20:29)
[2025-03-20 20:30] VITALS: PULSE 67; RESP 16; O2SAT 96
[2025-03-20] MEDS: Polyethylene Glycol 3350 17 GM PACKET PO (20:31)
[2025-03-21 06:00] VITALS: BP 156/69; PULSE 56; RESP 16; TEMP 36.1; O2SAT 97
[2025-03-21] MEDS: Arthritis Pain Compound 60 CLICK TUBE TOPICAL (06:01)
[2025-03-21] MEDS: Calcium Carb/Vitamin D 1 TABLET Tablet PO (08:33)
[2025-03-21] MEDS: Senna/Docusate Sodium 1 Tablet 2 TABLET PO (08:33)
[2025-03-21 08:41] VITALS: BP 138/65; PULSE 71
== END 2025-03-21 13:45 | disposition home health service (06) | DRG 560 ==
PROVIDERS: Admitting Provider Internal Medicine; PCP Family Medicine; Referring Provider Internal Medicine; Visit Provider Internal Medicine
DX: S72.141D Displaced intertrochanteric fracture of right femur, subsequent encounter for closed fracture with routine healing (principal); K55.9 Vascular disorder of intestine, unspecified; E87.1 Hypo-osmolality and hyponatremia; I10 Essential (primary) hypertension; K76.9 Liver disease, unspecified; F32.A Depression, unspecified; D50.0 Iron deficiency anemia secondary to blood loss (chronic); F41.9 Anxiety disorder, unspecified; K58.1 Irritable bowel syndrome with constipation; K21.9 Gastro-esophageal reflux disease without esophagitis; M54.50 Low back pain, unspecified; M15.0 Primary generalized (osteo)arthritis; G25.0 Essential tremor; Z87.891 Personal history of nicotine dependence; X58.XXXD Exposure to other specified factors, subsequent encounter; Z79.899 Other long term (current) drug therapy; G47.01 Insomnia due to medical condition; G89.29 Other chronic pain; N83.8 Other noninflammatory disorders of ovary, fallopian tube and broad ligament
CPT/HCPCS: 36415; 80048; 80053; 82274; 82728; 82962; 83036; 83540; 83550; 83735; 84100; 85014; 85018; 85025; 85027; 94762; 97110; 97116; 97162; 97166; 97530; 97535; 97542; 97802; A4216; J2916

== ENCOUNTER → 2025-04-18 | Outpatient (CLI) | payer MEDICARE, OTHER, SELFPAY ==
--- NOTE | 2025-04-18 14:23 | US_ITS ---
PROCEDURE: PELVIC W/ TRANSVAGINAL 04/18/2025 REASON FOR EXAM: PELVIC MASS TECHNIQUE: PELVIC W/ TRANSVAGINAL COMPARISON: Prior study dated July 04, 2024. FINDINGS: Measurements: Uterus: 5.5 cm x 3.4 cm x 1.4 cm with a volume of 13.6 mL Endometrial Thickness: 1.3 mm Right Ovary: Not visualized. Left Ovary: Not visualized. Uterus: Normal size, myometrial echotexture, and contour. Nabothian cyst. Endometrium: Unremarkable. Right ovary: Not visualized. Left ovary: Not visualized. Other: Stable 9.8 cm x 8.5 cm 6.8 cm cyst in the midline of the pelvis. US/Pelvic w/ Transvaginal IMPRESSION: Essentially stable 9.8 cm x 8.5 cm 6.8 cm cyst in the midline of the pelvis. Reading Location: [place] [address]
== END | disposition home or self-care (01) ==
LOC: US 14:21
PROVIDERS: PCP Family Medicine; Referring Provider Obstetrics & Gynecology Gynecologic Oncology; Visit Provider Obstetrics & Gynecology Gynecologic Oncology
DX: R19.00 Intra-abdominal and pelvic swelling, mass and lump, unspecified site (principal)
CPT/HCPCS: 76830; 76856

== ENCOUNTER 2025-04-30 09:07 | Emergency (ER) | payer MEDICARE, OTHER, SELFPAY ==
[2025-04-30] VITALS (8 sets, daily range): BP systolic 130–171; BP diastolic 70–89; PULSE 51–96; RESP 13–21; TEMP 36.5–37; O2SAT 76–100; BMI 20.9
--- NOTE | 2025-04-30 09:25 | ED.VIS.LOWEX ---
HPI History of Present Illness Chief Complaint: Lower Extremity Injury Narrative Narrative: 84-year-old female past medical history of previous right total hip arthroplasty as well as previous dislocation a few months ago presents with right hip pain that she has had since of last week. This was approximately 6 days ago. She states that she has been doing physical therapy and has been doing well walking with a walker. However, she started having the feeling that her right hip was coming in and out of place. She was supposed to have her last physical therapy session yesterday, but when she told the therapist about what was happening, he stated that he was not going to do any sort of session on her. She called her orthopedic surgeon from out of town and they told her that she needed to be evaluated. She presents from [facility] with pain in her right hip that is worse with movement. She states it feels different and does not feel completely dislocated. No recent falls. [facility] Medical History Liver lesion, right lobe GI bleed Fracture, intertrochanteric, right femur Osteoarthritis Depression Essential tremor Ovarian cyst, right History of iron deficiency anemia Hyponatremia History of SIADH Contusion of right wrist Acute lower gastrointestinal bleeding History of echocardiogram Wears glasses Post-menopausal Anxiety Alcohol use History of steroid therapy Ambulates with cane Arthritis Back pain Migraine headache Constipation Former smoker Leg cramps History of pain when walking History of fracture of leg Hypertension Home Medications ?Medication ?Instructions ?Recorded ?Last Taken ?Type lisinopril 20 mg tablet 20 mg PO DAILY blood pressure 10/23/21 12/09/23 History calcium 600 mg (as 1 tab PO DAILY supplement 09/20/22 12/09/23 History carbonate)-vitamin D3 5 mcg (200 unit) tablet pantoprazole 40 mg tablet,delayed 40 mg PO DAILY reflux #30 tabs 12/13/23 Unknown Rx release ferrous sulfate 325 mg (65 mg 325 mg PO DAILY supplement 03/07/24 Unknown History iron) tablet (Feosol) celecoxib 200 mg capsule 200 mg PO DAILY pain 06/12/24 Unknown History primidone 50 mg tablet 50 mg PO QHS Essential Tremor 06/12/24 Unknown History dicyclomine 10 mg capsule 10 mg PO BID IBS 30 days #60 caps 01/09/25 Unknown Rx acetaminophen 500 mg tablet 1,000 mg PO Q8 PRN pain 03/06/25 Unknown History duloxetine 30 mg capsule,delayed 30 mg PO DAILY Depression 03/06/25 Unknown History release Arthritis Pain Compound 2 click topical 0600,2200 7 days 03/18/25 Unknown Rx #60 GMS melatonin 3 mg tablet 3 mg PO QHS 7 days #7 tabs 03/18/25 Unknown Rx mirtazapine 15 mg tablet 7.5 mg (1/2 x 15 mg) PO QHS 7 days 03/18/25 Unknown Rx #4 tabs oxycodone 5 mg tablet 5 mg PO Q8 HIP PAIN 7 days #21 03/18/25 Unknown Rx tabs sennosides 8.6 mg-docusate sodium 2 tab PO BID 7 days #28 tabs 03/18/25 Unknown Rx 50 mg tablet (Stimulant Laxative Plus) mesalamine 1.2 gram tablet,delayed 1.2 g PO DAILY IBS 90 days #90 tabs 04/22/25 Unknown Rx release Allergy/AdvReac Type Severity Reaction Status Date / Time venom-honey bee Allergy Hives Verified 03/05/25 09:46 venom-wasp Allergy Hives Verified 03/05/25 09:46 naproxen AdvReac Other Verified 03/05/25 09:46 prednisone AdvReac Other Verified 03/05/25 09:46 Surgical History H/O shoulder replacement Hx of right cataract extraction Hx of left cataract extraction Hx of colonoscopy Social History adopted: No household members: none housing: house number of children: 1 current occupational status: retired Smoking Status: Former smoker alcohol intake: current alcohol intake frequency: holidays/special occasions only seatbelt use: always do you feel safe at home: Yes additional social history: ROS ROS ED ROS Narrative Review of systems positive for right hip pain, and the feeling of it being partially dislocated and relocated. Symptoms have been ongoing for 6 days. No recent falls. EXAM Physical Exam Narrative Exam Narrative: GCS 15. ABCs intact. Pelvis stable. No pain with logrolling of femur. Right lower extremity does show she is wearing a knee brace secondary to previous tibial fracture. Palpable dorsalis pedis pulse right. Const Vital Signs: 04/30/25 12:38 04/30/25 12:59 04/30/25 13:04 Temperature Pulse Rate 51 L 52 L Pulse Rate [1 (Initial Baseline)] 57 L Pulse Rate [2] 61 Pulse Rate [3] 53 L Pulse Rate [4] 54 L Pulse Rate [5] 51 L Pulse Rate [6] 52 L Pulse Rate [7] 53 L Pulse Rate [8] 53 L Pulse Rate [9] 51 L Respiratory Rate 20 H 20 H Respiratory Rate [1 (Initial Baseline)] 13 Respiratory Rate [2] 20 H Respiratory Rate [3] 18 Respiratory Rate [4] 18 Respiratory Rate [5] 19 H Respiratory Rate [6] 21 H Respiratory Rate [7] 18 Respiratory Rate [8] 17 Respiratory Rate [9] 20 H Blood Pressure 151/76 H 154/75 H Blood Pressure [1 (Initial Baseline)] 171/89 H Blood Pressure [2] 166/81 H Blood Pressure [3] 130/76 H Blood Pressure [4] 132/78 H Blood Pressure [5] 142/73 H Blood Pressure [6] 140/76 H Blood Pressure [7] 140/73 H Blood Pressure [8] 142/73 H Blood Pressure [9] 151/76 H Blood Pressure Mean Pulse Ox 100 100 Oxygen Delivery Method Nasal Cannula Room Air Oxygen Delivery Method [1 (Initial Baseline)] Nasal Cannula Oxygen Delivery Method [2] Nasal Cannula Oxygen Delivery Method [3] Non-Rebreather Oxygen Delivery Method [4] Non-Rebreather Oxygen Delivery Method [5] Non-Rebreather Oxygen Delivery Method [6] Nasal Cannula Oxygen Delivery Method [7] Nasal Cannula Oxygen Delivery Method [8] Nasal Cannula Oxygen Delivery Method [9] Nasal Cannula Oxygen Flow Rate (L/min) 2 0 Oxygen Flow Rate (L/min) [1 (Initial Baseline)] 2 Oxygen Flow Rate (L/min) [2] 2 Oxygen Flow Rate (L/min) [3] 15 Oxygen Flow Rate (L/min) [4] 15 Oxygen Flow Rate (L/min) [5] 15 Oxygen Flow Rate (L/min) [6] 6 Oxygen Flow Rate (L/min) [7] 6 Oxygen Flow Rate (L/min) [8] 2 Oxygen Flow Rate (L/min) [9] 2 EtCo2 - Document during CPR and with ROSC 38 39 EtCo2 - Document during CPR and with ROSC [1 (Initial Baseline)] 39 EtCo2 - Document during CPR and with ROSC [2] 39 EtCo2 - Document during CPR and with ROSC [3] 47 EtCo2 - Document during CPR and with ROSC [4] 39 EtCo2 - Document during CPR and with ROSC [5] 34 EtCo2 - Document during CPR and with ROSC [6] 35 EtCo2 - Document during CPR and with ROSC [7] 39 EtCo2 - Document during CPR and with ROSC [8] 34 EtCo2 - Document during CPR and with ROSC [9] 36 04/30/25 13:06 04/30/25 14:57 04/30/25 15:00 Temperature 98.3 F Pulse Rate 52 L 52 L 80 Pulse Rate [1 (Initial Baseline)] Pulse Rate [2] Pulse Rate [3] Pulse Rate [4] Pulse Rate [5] Pulse Rate [6] Pulse Rate [7] Pulse Rate [8] Pulse Rate [9] Respiratory Rate 18 18 18 Respiratory Rate [1 (Initial Baseline)] Respiratory Rate [2] Respiratory Rate [3] Respiratory Rate [4] Respiratory Rate [5] Respiratory Rate [6] Respiratory Rate [7] Respiratory Rate [8] Respiratory Rate [9] Blood Pressure 171/80 H 171/80 H 168/70 H Blood Pressure [1 (Initial Baseline)] Blood Pressure [2] Blood Pressure [3] Blood Pressure [4] Blood Pressure [5] Blood Pressure [6] Blood Pressure [7] Blood Pressure [8] Blood Pressure [9] Blood Pressure Mean 110 102 Pulse Ox 100 100 98 Oxygen Delivery Method Room Air Oxygen Delivery Method [1 (Initial Baseline)] Oxygen Delivery Method [2] Oxygen Delivery Method [3] Oxygen Delivery Method [4] Oxygen Delivery Method [5] Oxygen Delivery Method [6] Oxygen Delivery Method [7] Oxygen Delivery Method [8] Oxygen Delivery Method [9] Oxygen Flow Rate (L/min) 0 Oxygen Flow Rate (L/min) [1 (Initial Baseline)] Oxygen Flow Rate (L/min) [2] Oxygen Flow Rate (L/min) [3] Oxygen Flow Rate (L/min) [4] Oxygen Flow Rate (L/min) [5] Oxygen Flow Rate (L/min) [6] Oxygen Flow Rate (L/min) [7] Oxygen Flow Rate (L/min) [8] Oxygen Flow Rate (L/min) [9] EtCo2 - Document during CPR and with ROSC 37 EtCo2 - Document during CPR and with ROSC [1 (Initial Baseline)] EtCo2 - Document during CPR and with ROSC [2] EtCo2 - Document during CPR and with ROSC [3] EtCo2 - Document during CPR and with ROSC [4] EtCo2 - Document during CPR and with ROSC [5] EtCo2 - Document during CPR and with ROSC [6] EtCo2 - Document during CPR and with ROSC [7] EtCo2 - Document during CPR and with ROSC [8] EtCo2 - Document during CPR and with ROSC [9] MDM MDM MDM Narrative Medical decision making narrative: Concern is for periprosthetic fracture versus dislocation of right hip versus nonspecific right hip pain versus bursitis. Patient declines any analgesics stating she took a Percocet this morning which helped with her pain. She states she gets this from pain management, Dr. Guzmán because she has arthritis in multiple places and history of a shoulder fracture as well. X-rays were obtained of the pelvis and right hip and interpreted by myself independently. On my independent interpretation, there is superior dislocation of the right hip prosthesis. No evidence of periprosthetic fracture. I reviewed the radiology report which confirms my independent interpretation. I was able to discuss patient with the patient's orthopedic surgeon at [facility] orthopedics. He suggested a gentle attempt at reduction. Propofol 100 mg was used for procedural sedation and adequate muscle relaxation. Repeat x-ray after closed reduction was interpreted by myself independently which shows satisfactory reduction of the right hip prosthetic joint. I reviewed the radiology report which confirms my independent interpretation. I discussed the patient with the patient's orthopedic physician/TANGELA again, and they prefer that she remain in the T ROM knee brace, but keep it locked out at 0 degrees flexion and extension. She will use her walker to ambulate. She is to follow-up with orthopedics in 2 days as she may require more of a hip brace. She was instructed to keep the knee brace locked at 0 degrees and not to bend her right knee when trying to attempt seated position. Patient is agreeable to the plan. Return instructions reviewed. Disposition is discharged home in stable condition. History & Record Review Discussion w/independent historian: Patient Radiography Diagnostic Testing: Clinical Impression(s) from Imaging Studies Hip/Pelvis X-Ray 04/30/25 09:28 IMPRESSION: Superior dislocation of the prosthetic right hip joint. No fracture seen. Reading Location: [id number] Hip X-Ray 04/30/25 12:54 IMPRESSION: Satisfactory reduction of the right prosthetic hip joint. Reading Location: [id number] Management Discussion w/another healthcare provider: Repair Specialist (Patient's orthopod at [facility]) Procedures Procedural Sedation For closed reduction of right hip arthroplasty: Consent Signed: Yes Any Problems With Anesthesia: No You/Your family experience fever (hyperthermia) w/anesthesia: Unknown Sedation medication: Propofol Dose: 100 Route: IV Total Moderate Sedation Units: 20 Maliampati Score: Class III ASA Classification: III Comment:: Patient tolerated procedure well. Patient did have transient dip in pulse oximetry. She was placed on a nonrebreather. Discharge Plan Triage Chief Complaint: Lower Extremity Injury ED Provider: Glenn Dutton Dx/Rx/DC Orders Clinical Impression: Failure of right total hip arthroplasty with dislocation of hip, Status post closed reduction of dislocated total hip prosthesis Instructions: Procedural Sedation, ED Hip Replace Dislocation Reduc Prescriptions: No Action dicyclomine 10 mg capsule 10 mg PO BID 30 Days Qty: 60 3RF lisinopril 20 mg tablet 20 mg PO DAILY calcium carbonate-vitamin D3 600 mg-5 mcg (200 unit) Tablet 1 tab PO DAILY pantoprazole 40 mg Tablet,Delayed Release (Dr/Ec) 40 mg PO DAILY Qty: 30 0RF ferrous sulfate [Feosol] 325 mg (65 mg iron) tablet 325 mg PO DAILY celecoxib 200 mg capsule 200 mg PO DAILY primidone 50 mg tablet 50 mg PO QHS Patient Comments: 25mg by mouth once daily at bedtime for essential tremor acetaminophen 500 mg tablet 1,000 mg PO Q8 PRN (Reason: pain) duloxetine 30 mg capsule,delayed release(DR/EC) 30 mg PO DAILY Arthritis Pain Compound 2 click topical 0600,2200 7 Days Qty: 60 0RF Rx Instructions: APPLY USING A FINGER TIP AMOUNT TO AFFECTED AREA(S) UP TO 3 TIMES A DOAY sennosides-docusate sodium [Stimulant Laxative Plus] 8.6-50 mg Tablet 2 tab PO BID 7 Days Qty: 28 0RF Rx Instructions: PLEASE TAKE LONG YOU ARE TAKING OPIOID PAIN MEDICATIONS melatonin 3 mg Tablet 3 mg PO QHS 7 Days Qty: 7 0RF Rx Instructions: TAKE ONE HOUR BEFORE BEDTIME mirtazapine 15 mg Tablet 7.5 mg PO QHS 7 Days Qty: 4 0RF Rx Instructions: TAKE AT BEDTIME oxycodone 5 mg Tablet 5 mg PO Q8 7 Days Qty: 21 0RF Rx Instructions: TAKE FOR PAIN EVERY 8 HOURS mesalamine 1.2 gram tablet,delayed release (DR/EC) 1.2 g PO DAILY 90 Days Qty: 90 2RF Primary Care Provider: Rolf Peck Referrals: Rolf Peck MD [Primary Care Provider] - Activity Restrictions/Additional Instructions: Keep your T ROM brace on your right knee locked out at 0 flexion, 0 extension until cleared by your orthopedic surgeon. You are to follow-up with them this . Call the office for an appointment as you may need a hip brace. Use your walker for ambulation or keep your right knee straight even in the wheelchair. Return with new or worsening symptoms. Print Language: Tunisian Disposition Disposition: Home, Self Care Discharge Date/Time: 04/30/25 16:09
--- NOTE | 2025-04-30 09:28 | RAD_ITS ---
PROCEDURE: HIP, UNI W/ PELVIS 2-3 VIEWS 04/30/2025 REASON FOR EXAM: Right hip pain. TECHNIQUE: HIP, UNI W/ PELVIS 2-3 VIEWS Laterality: Right hip COMPARISON: Prior study dated March 05, 2025. FINDINGS: Bones: No fracture seen. Joints: There is evidence of superior dislocation of the prosthetic right hip joint. Soft tissues: Soft tissue swelling. 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 No fracture seen. Reading Location: [id number]
--- NOTE | 2025-04-30 12:54 | RAD_ITS ---
PROCEDURE: HIP MIN 2 VIEWS (PORTABLE) 04/30/2025 REASON FOR EXAM: POST REDUCTION TECHNIQUE: HIP MIN 2 VIEWS (PORTABLE) Laterality: Right hip COMPARISON: Prior study done earlier in the day. FINDINGS: There is satisfactory reduction of the right prosthetic hip joint. RAD/Hip Min 2 Views (Portable) IMPRESSION: Satisfactory reduction of the right prosthetic hip joint. Reading Location: [facility]
== END 2025-04-30 16:09 | disposition home or self-care (01) ==
LOC: ED 10:07
PROVIDERS: Emergency Provider Emergency Medicine; PCP Family Medicine; Visit Provider Emergency Medicine
DX: T84.020A Dislocation of internal right hip prosthesis, initial encounter (principal); Z96.641 Presence of right artificial hip joint; Z87.891 Personal history of nicotine dependence; I10 Essential (primary) hypertension; Z79.899 Other long term (current) drug therapy; F41.9 Anxiety disorder, unspecified; Z96.619 Presence of unspecified artificial shoulder joint; Z98.41 Cataract extraction status, right eye; Z98.42 Cataract extraction status, left eye; Z79.891 Long term (current) use of opiate analgesic; M19.90 Unspecified osteoarthritis, unspecified site
CPT/HCPCS: 27265; 73502; 99152; 99285; A4216

== ENCOUNTER → 2025-05-10 05:00 | Outpatient (REF) | payer MEDICARE, OTHER, SELFPAY ==
--- OUTSIDE RECORDS SUMMARY | 2025-05-10 03:44 | XMS RPT_ITS | CCD ---
Author Organization [facility] Clini[facility] Care Team Providers Care Insole Reinforcer Name Role Phone Unavailable Primary Care Provider Unavailabl e PHYSICIAN, NONE Primary Care Physician Unavailab ksenia CHILDS MD, PETTY Tamez Attending Unavailable PHYSICIAN, NONE Primary Care Unavailable PHYSICIAN, NONE Primary Care Unavailable GEOFF LYMAN, TONG Zhang Admitting Unavailab ksenia TELLEZ MD, TONG Zhang Attending Unavailab ksenia BURNHAM MD, AIDEN Consulting Unavailable ALANA MCGRAW DO Consulting Unavailable Dr. Rosaura Peck Primary Care Provider 1([facility] )[id number] Nicole RESEARCH AND EVALUATION MANAGER, ESVIN-C Angela Attending Provider Unav deandraable Dr. Josh Flores Attending Provider 1([facility])[phone] Rosaura Peck Primary Care Provider 1([facility] )[id number] Dr. Rosaura Peck Referring Provider 1([facility])[phone] AMY Salazar Attending Provider Dr. Rosaura Peck Primary Care Provider 1([facility] )[id number] Dr. Rosaura Peck Referring Provider 1([facility])[phone] AMY Salazar Attending Provider 1([facility])[phone] Dr. Rosaura Peck Primary Care Provider 1([facility] )[id number] Dr. Mustapha Mccracken Emergency Provider 1([facility])[phone] Justus Pop Attending Provider Unavailable Dr. Justus Pop Admit Provider Unavailable Dr. Justus Pop Other Provider Unavailable Friend, Dr. Pal Attending Provider Dr. Eduardo Gonzalez Attending Provider 1([facility])[phone] Dr. Eduardo Gonzalez Other Provider 1([facility])[phone] Justus Pop Referring Provider Unavailable Dr. Eduardo Gonzalez Referring Provider ROSAURA PECK Primary Care Unavailable JOSEPH AGUILERA Admitting Unavailable DANIE GRACIA Consulting Unavailable TONG FELIX Attending Unavailable Jose LYMAN, Santana Pink Unavailable Rosaura Peck MD Primary Care Provider Dr. Rosaura Peck MD Primary Care Provider [phone] Sarina Ann Attending Provider Sarina Ann Referring Provider Dr. Rosaura Peck MD Attending Provider [phone] Dr. Rosaura Peck MD Referring Provider Kofi LYMAN, Dr. Graves Attending Provider Dr. Star Kirby MD Referring Provider [phone] Roma Combs Attending Provider [phone] Roma Combs Referring Provider [phone] Dr. Santana Garcia MD Attending Provider [phone] Dr. Santana Garcia MD Referring Provider [phone] Roma Combs Attending Provider [phone] Roma Combs Referring Provider [phone] Roma Combs Attending Provider [phone] Roma Combs Referring Provider [phone] Dr. Rosaura Peck MD Primary Care Provider [phone] Dr. Rosaura Peck MD Referring Provider Sarina Ann Attending Provider Dr. Rosaura Peck MD Attending Provider Jimmy Cortes Attending Provider Dr. Rosaura Peck MD Primary Care Provider Dr. Rosaura Peck MD Referring Provider Sarina Ann Attending Provider Raghav LYMAN, Dr. Atkins Emergency Provider Raghav LYMAN, Dr. Atkins Attending Provider [phone] Eliazar ZARAGOZA, Dr. Justina Mcclendon Admit Provider Eliazar ZARAGOZA, Dr. Justina Mcclendon Attending Provide r Eliazar ZARAGOZA, Dr. Justina Mcclendon Referring Provide r Eliazar ZARAGOZA, Dr. Justina Mcclendon Other Provider Dinesh RESEARCH AND EVALUATION MANAGER-CCarly Attending Provide r Cisco LYMAN, Dr. Rosaura Huerta Primary Care Provider Cisco LYMAN, Dr. Rosaura Huerta Referring Provider Roma Combs Attending Provider [phone] Roma Combs Referring Provider [phone] Cisco LYMAN, Dr. Rosaura Huerta Attending Provider [phone] Jose LYMAN, Dr. Dillon Attending Provider Jose LYMAN, Dr. Dillon Referring Provider SANTANA GARCIA Attending Unavailable YUE NEWSOME Referring Unavailable ROSAURA PECK Primary Care Unavailable SANTANA GARCIA Attending Unavailable ROSAURA PECK Primary Care Unavailable SANTANA GARCIA Attending Unavailable ROSAURA PECK Primary Care Unavailable Glenn Dutton MD Emergency Provider [phone] Rosaura Peck Primary Care Unavailable Josh Pearson Attending UnavailRosaura Martinez Primary Care Unavailable Josh Pearson Attending UnavailRosaura Martinez Primary Care Unavailable Justus Billy Consulting Unavailable Justus Billy Admitting Unavailable Tong Alberto Attending Unavailable Santana Garcia Attending Unavailable Santana Garcia Referring Unavailable Rosaura Peck Primary Care Unavailable Sarina Messer Attending Unavailable Sarina Messer Referring Unavailable Rosaura Peck Primary Care Unavailable Rosaura Peck Primary Care Unavailable Rosaura Peck Attending Unavailable Rosaura Peck Referring Unavailable Rosaura Peck Primary Care Unavailable Josh Pearson Attending UnavailRosaura Martinez Primary Care Unavailable Paulino Coleman Attending Unavailable Rosaura Peck Referring Unavailable Star Kirby Attending Unavailable Star Kirby Referring Unavailable SchRosaura loco Primary Care Unavailable Rosaura Peck Attending Unavailable Rosaura Peck Referring Unavailable Rosaura Peck Primary Care Unavailable Rosaura Peck Primary Care Unavailable Glenn Dutton Attending Unavailable Wilbert Avilez Attending Unavailable Rosaura Peck Primary Care Unavailable Rosaura Peck Primary Care Unavailable Yue Newsome Attending Unavailable Yue Newsome Referring Unavailable Rosaura Peck Primary Care Unavailable Wilbert Avilez Attending Unavailable Rosaura Peck Attending Unavailable Rosaura Peck Primary Care Unavailable Sarina Messer Attending Unavailable Sarina Messer Referring Unavailable Rosaura Peck Primary Care Unavailable Rosaura Peck Primary Care Unavailable Demarco Veloz Attending Unavailable Tong Alberto Referring Unavailable Roma Johnson Referring Unavailable Roma Johnson Attending Unavailable Rosaura Peck Primary Care Unavailable Rosaura Peck Primary Care Unavailable Snatana Garcia Attending Unavailable Santana Garcia Referring Unavailable Rosaura Peck Attending Unavailable Rosaura Peck Primary Care Unavailable Justina Perea Referring Unavaila ble Sementi, Justina Mcclendon Admitting Unavaila ble Sementi, Justina Mcclendon Attending Unavaila ble Rosaura Peck Primary Care Unavailable Tong Gomez Consulting Unavailable Sarina Messer Attending Unavailable Rosaura Peck Referring Unavailable Rosaura Peck Primary Care Unavailable Rosaura Peck Primary Care Unavailable Josh Pearson Attending UnavailAngela Benavidez NP Attending Unavailable Rosaura Peck Primary Care Unavailable Rosaura Peck Primary Care Unavailable Justina Perea Referring Unavaila ble Sementi, Justina Mcclendon Consulting Unavaila ble Sementi, Justina Mcclendon Attending Unavaila ble Sementi, Justina Mcclendon Admitting Unavaila ble Carly Montiel Attending Rosaura Orozco Primary Care Unavailable Ayaz Howard Attending Unavailable Justus Billy Referring Unavailable Schinner, Rosaura E Primary Care Unavailable Justus Billy Admitting Unavailable Justus Billy Consulting Unavailable Tong Alberto Attending Unavailable Tong Alberto Consulting Unavailable Magdiel Demarco Attending Unavailable Justus Billy Referring Unavailable Schinner, Rosaura E Referring Unavailable Sarina Messer Attending Unavailable Schinner, Rosaura E Primary Care Unavailable Jimmy Cortes Attending Unavailable Schinner, Rosaura E Primary Care Unavailable Schinner, Rosaura E Referring Unavailable Schinner, Rosaura E Primary Care Unavailable Angela Rivera NP Attending Unavailable Schinner, Rosaura E Primary Care Unavailable Sarina Messer Attending Unavailable Schinner, Rosaura E Referring Unavailable Schinner, Rosaura E Referring Unavailable AtaSarina smith Attending Unavailable Schinner, Rosaura E Primary Care Unavailable Schinner, Rosaura E Primary Care Unavailable Yue Newsome Attending Unavailable Schinner, Rosaura E Referring Unavailable Justus Billy Attending Unavailable Angela Rivera NP Attending Unavailable Schinner, Rosaura E Primary Care Unavailable Schinner, Rosaura E Attending Unavailable Schinner, Rosaura E Primary Care Unavailable Schinner, Rosaura E Referring Unavailable Schinner, Rosaura E Attending Unavailable Schinner, Rosaura E Referring Unavailable Schinner, Rosaura E Primary Care Unavailable Roma Johnson Attending Unavailable Roma Johnson Referring Unavailable Schinner, Rosaura E Primary Care Unavailable Schinner, Rosaura E Primary Care Unavailable Josh Pearson Attending Unavailabl e PHYSICIAN, NONE Primary Care Unavailable DANIE GRACIA Attending Unavailable PHYSICIAN, NONE Primary Care Unavailable DANIE GRACIA MD Attending Unavailable Allergies Allergy Classification Reported Allergen(s) Allergy Type Date of Onset Reaction(s) Facility (20 sources) predniSONE; Translations: [prednisone] Drug Allergy 2 Other: See Comments [facility] (2 sources) WASPS Allergy to substance 2 [facility] Work Phone: (2 sources) YELLOW JACKETS Allergy to substance 2 [facility] Work Phone: (20 sources) venom-honey bee Allergy to substance 2 [facility] Comment on above: (YELLOW JACKETS) (20 sources) venom-wasp Allergy to substance 2 Hives [facility] (20 sources) Naproxen; Translations: [naproxen] Drug Allergy 3 Other: See Comments [facility] (2 sources) Bee/Wasp/Ant venom Allergy to substance [facility] (13 sources) Prednisone Allergy to substance 3 [facility] (1 source) Naproxen Drug Allergy 5 [facility] (1 source) predniSONE Drug Allergy 5 [facility] (1 source) venom-honey bee Drug allergy (disorder) 5 [facility] (1 source) venom-wasp Drug allergy (disorder) 5 [facility] Medications Current Medications Medication Drug Class(es) Dates Sig (Normalized) Sig (Original) acetaminophen 500 mg oral tablet (20 sources) Start: 03-06-2025 take 2 tablets by mouth every eight hours as needed for pain Acetaminophen 500 mg tablet Active 1000 mg PO EVERY 8 HOURS as needed for pain March 06, 2025 12:00am Start: 09-20-2022 End: 03-06-2025 take 2 tablets by mouth every four hours as needed for pain Acetaminophen (Tylenol) 325 mg Tablet Discontinued 650 mg PO Q4H as needed for Pain September 20, 2022 1:00am March 06, 2025 3:56pm take 1 tablet by aniceto th once daily acetaminophen (Tylenol) 500 MG tablet Take 1 tablet by mouth daily. Active take 1000 mg by mout h once daily at bedtime acetaminophen (TYLENOL EXTRA STRENGTH ORAL) Take 1,000 mg by mouth daily at bedtime. 0 Active Comment on above: Take 1,000 mg by aniceto th daily at bedtime. Arthritis Pain Compound (4 sources) Start: 03-18-2025 Arthritis Pain Compound Active 2 [facility] TOPICAL 0600,2200 60 7 0 March 18, 2025 12:00am APPLY USING A FINGER TIP AMOUNT TO AFFECTED AREA(S) UP TO 3 TIMES A DOAY Calcium Carbonate (13 sources) calcium carbonat e 260 MG chewable tablet Chew daily. Active calcium carbonate 1500 mg / cholecalciferol 200 unt oral tablet (20 sources) Vitamin D Start: 09-20-2022 Calcium Carbonate-Vitamin D3 600 mg-5 mcg (200 unit) Tablet Active 1 {tbl} PO DAILY September 20, 2022 1:00am supplement Start: 09-20-2022 take 1 tablet by aniceto th once daily Calcium Carbonate-Vitamin D3 Active 1 TABLET PO DAILY September 20, 2022 1:00am celecoxib 200 mg oral capsule (20 sources) Nonsteroidal Anti-inflammatory Drug Start: 06-12-2024 take 1 capsule by mouth once daily Celecoxib 200 mg capsule Active 200 mg PO DAILY June 12, 2024 12:00am pain Start: 10-23-2021 End: 04-12-2024 take 1 capsule by mouth once daily Celecoxib 200 mg capsule Discontinued 200 mg PO DAILY October 23, 2021 1:00am April 12, 2024 9:36am pain On Hold: Ordered Comment on above: Take 200 mg by mouth every morning. No hold date yet-will call office today 12/08 docusate sodium 50 mg / sennosides, nursing home 8.6 mg oral tablet (20 sources) Start: 03-18-2025 Sennosides-Docusate Sodium (Stimulant Laxative Plus) 8.6-50 mg Tablet Active 2 {tbl} PO TWICE A DAY 28 7 0 March 18, 2025 12:00am PLEASE TAKE LONG YOU ARE TAKING OPIOID PAIN MEDICATIONS Start: 10-01-2022 End: 12-10-2023 Sennosides-Docusate Sodium ( Stool Softener-Stimulant Laxat) 8.6-50 mg Tablet Discontinued 2 {tbl} PO TWICE A DAY 28 7 0 October 01, 2022 1:00am December 10, 2023 12:03pm DULoxetine 30 mg delayed release oral capsule (13 sources) Serotonin and Norepinephrine Reuptake Inhibitor Start: 12-06-2024 take 1 capsule by mouth once daily Duloxetine 30 mg capsule,delayed release(DR/EC) Active 30 mg PO DAILY March 06, 2025 12:00am Depression ferrous sulfate 325 mg oral tablet (11 sources) Start: 03-07-2024 take 1 tablet by mouth once daily Ferrous Sulfate (Feosol) 325 mg (65 mg iron) tablet Active 325 mg PO DAILY March 07, 2024 12:00am supplement Start: 03-07-2024 take 1 tablet by aniceto twice daily Ferrous Sulfate (Feosol) 325 mg (65 mg iron) tablet Active 325 mg PO TWICE A DAY March 07, 2024 12:00am supplement lisinopril 20 mg oral tablet (20 sources) Angiotensin Converting Enzyme Inhibitor Start: 10-23-2021 take 1 dose by mouth once daily lisinopril Dose : 20 mg =, Oral, qDay, 0 Refill(s) Start Date: 02/12/23 Status: Ordered Medication Dispense Status: Completed Total Allowed Fills: 1 Fills Dispensed: 0 Comment on above: Take 20 mg by mouth every morning. melatonin 3 mg oral tablet (4 sources) Start: 03-18-2025 take 1 tablet by mouth 1 hour(s) before bedtime Melatonin 3 mg Tablet Active 3 mg PO AT BEDTIME 7 7 0 March 18, 2025 12:00am TAKE ONE HOUR BEFORE BEDTIME mirtazapine 15 mg oral tablet (4 sources) Start: 03-18-2025 take 7.5 mg by mouth at bedtime Mirtazapine 15 mg Tablet Active 7.5 mg PO AT BEDTIME 4 7 0 March 18, 2025 12:00am TAKE AT BEDTIME Aifuzjcy-Jyt-Luco- Fa-Lutein (Multivitamin Women 50 Plus) 8 mg iron-400 mcg-300 mcg Tablet (5 sources) Start: 09-20-2022 take 1 tablet by mouth once daily Nnznjvma-Ear-Kwwr- Fa-Lutein (Multivitamin Women 50 Plus) 8 mg iron-400 mcg-300 mcg Tablet Active 1 TABLET PO DAILY September 20, 2022 1:00am Start: 09-20-2022 take 1 tablet by aniceto th once daily Ftclhmbl-Rqt-Wqfw-Fa-Lutein (Multivitami n Women 50 Plus) 8 mg iron-400 mcg-300 mcg Tablet Active 1 TABLET PO DAILY September 20, 2022 12:00am oxyCODONE hydrochloride 5 mg oral tablet (20 sources) Opioid Agonist Start: 03-18-2025 take 1 tablet by mouth every eight hours for pain Oxycodone 5 mg Tablet Active 5 mg PO EVERY 8 HOURS 21 7 0 March 18, 2025 Back pain Postoperative pain Low back pain, unspecified Other chronic pain Other acute postprocedural pain HIP PAIN TAKE FOR PAIN EVERY 8 HOURS Start: 06-12-2024 End: 03-18-2025 take 1 tablet by mouth every six hours as needed for pain Oxycodone 5 mg tablet Discontinued 5 mg PO EVERY 6 HOURS as needed for pain June 12, 2024 12:00am March 18, 2025 9:05am Start: 05-30-2024 End: 06-12-2024 take 1 tablet by mouth every four hours as needed for pain Oxycodone 5 mg tablet Discontinued 5 mg PO Q4H as needed for pain 20 14 0 May 30, 2024 June 12, 2024 12:00am June 12, 2024 1:28am Intertrochanteric fracture of right femur Start: 03-07-2024 End: 04-17-2024 take 1 capsule by mouth every four hours as needed for pain Oxycodone 5 mg capsule Discontinued 5 mg PO Q4H as needed for pain 0 March 07, 2024 12:00am April 17, 2024 10:47am Start: 10-01-2022 End: 12-10-2023 take 5-10 mg by mouth every four hours as needed for pain Oxycodone 5 mg Tablet Discontinued 5 - 10 mg PO EVERY 4 HOURS NEEDED as needed for Pain Score 4-10 42 7 0 October 01, 2022 December 10, 2023 11:49am Postoperative pain Other acute postprocedural pain oxycodone HCl (O XYCODONE ORAL) Take 5 mg by mouth as needed. 0 Active Comment on above: Take 5 mg by mouth a s needed. pantoprazole 40 mg delayed release oral tablet (20 sources) Proton Pump Inhibitor Start: take 1 tablet by mouth once daily Pantoprazole 40 mg Tablet,Delayed Release (Dr/Ec) Active 40 mg PO DAILY 30 0 December 13, 2023 12:00am reflux pantoprazole (Pr otoNix) 40 MG injection Infuse 40 mg into a venous catheter. Active primidone 50 mg oral tablet (20 sources) Anti-epileptic Agent Start: 06-12-2024 take 1 tablet by mouth at bedtime Primidone 50 mg tablet Active 50 mg PO AT BEDTIME June 12, 2024 12:00am Essential Tremor sennosides, nursing home 8.6 mg oral tablet (13 sources) Start: 02-23-2024 take 2 tablets by mouth once daily at bedtime sennosides (Senokot) 8.6 MG tablet Take 2 tablets by mouth daily at bedtime. 02/23/2024 Active Completed/Discontinued Medications Medication Drug Class(es) Dates Sig (Normalized) Sig (Original) acetaminophen 325 mg / HYDROcodone bitartrate 5 mg oral tablet (20 sources) Opioid Agonist Start: 03-23-2023 End: 04-02-2023 Hydrocodone-Acetamino phen 5-325 mg tablet Discontinued 1 {tbl} PO TWICE A DAY as needed for pain 20 10 March 23, 2023 April 01, 2023 12:00am April 02, 2023 12:11am Back pain Postoperative pain Dorsalgia, unspecified Other acute postprocedural pain Start: 03-23-2023 End: 04-02-2023 take 1 tablet by mouth twice daily Hydrocodone-Acetaminophen Discontinued 1 TABLET PO TWICE A DAY 20 March 23, 2023 April 02, 2023 12:11am apixaban 2.5 mg oral tablet (20 sources) Factor Xa Inhibitor Start: 03-23-2023 End: 12-10-2023 take 1 tablet by mouth twice daily Apixaban (Eliquis) 2.5 mg tablet Discontinued 2.5 mg PO TWICE A DAY 20 March 23, 2023 12:00am December 10, 2023 11:49am aspirin 81 mg delayed release oral tablet (20 sources) Platelet Aggregation Inhibitor, Nonsteroidal Anti-inflammatory Drug Start: 10-01-2022 End: 12-10-2023 take 1 tablet by mouth twice daily Aspirin 81 mg Tablet,Delayed Release (Dr/Ec) Discontinued 81 mg PO TWICE A DAY 56 28 0 October 01, 2022 1:00am December 10, 2023 11:49am take 1 tablet by mouth once meena y aspirin, enteric coated (ASPIRIN, ENTERIC COATED) 81 mg EC tablet Take 81 mg by mouth once daily. Will clarify last dose today ld 12/08/22 0 Active Comment on above: Take 81 mg by mouth once daily. Will clarify last dose today ld 12/08/22 Calcium Carbonate / vitamin D3 (1 source) take 0.8 dose by mouth once daily calcium carbonate/vitamin D3 (CALCIUM 600 + D ORAL) Take by mouth once daily. Last dose 4/5 0 Active Comment on above: Take by mouth once d aily. Last dose 4/5 ciprofloxacin 500 mg oral tablet (11 sources) Quinolone Antimicrobial Start: End: take 1 tablet by mouth every twelve hours Ciprofloxacin Hcl 500 mg tablet Discontinued 500 mg PO Q12H 6 3 0 April 17, 2024 12:00am May 21, 2024 2:25pm dicyclomine hydrochloride 10 mg oral capsule (20 sources) Anticholinergic Start: End: 025 take 1 capsule by mouth twice daily Dicyclomine 10 mg capsule Discontinued 10 mg PO TWICE A DAY 60 30 October 09, 2024 10:06am January 09, 2025 10:37am take 1 capsule by mouth four gabrielle es daily dicyclomine (Bentyl) 10 MG capsule Take 10 mg by mouth 4 times daily. Active docusate sodium 100 mg oral capsule (20 sources) Start: 02-23-2024 take 1 capsule by mouth every twelve hours as needed Docusate Sodium (DSS) 100 MG capsule Take 100 mg by mouth every 12 hours as needed. 02/23/2024 Active Start: 02-15-2023 End: 03-06-2025 take 1 capsule by mouth twice daily as needed Docusate Sodium (Colace) 100 mg capsule Discontinued 100 mg PO TWICE DAILY NEEDED 60 3 August 16, 2024 10:37am March 06, 2025 3:59pm stool softner doxycycline hyclate 100 mg oral tablet (19 sources) Tetracycline-class Drug Start: 06-25-2023 End: 12-10-2023 take 1 tablet by mouth once Doxycycline Hyclate 100 mg tablet Discontinued 200 mg PO .one time dose 2 June 25, 2023 12:00am December 10, 2023 11:49am Tick bite of axillary region Insect bite (nonvenomous) of unspecified upper arm, initial encounter Start: 06-25-2023 End: 12-10-2023 take 1 dose by mouth once Doxycycline Hyclate Disconti nued 200 MG PO .one time dose June 25, 2023 12:00am December 10, 2023 11:49am 0.4 ml enoxaparin sodium 100 mg/ml prefilled syringe (12 sources) Low Molecular Weight Heparin Start: 03-07-2024 End: 05-21-2024 Enoxaparin 40 mg/0.4 mL syringe Discontinued 40 mg SC DAILY March 07, 2024 12:00am May 21, 2024 2:25pm Start: 02-13-2023 End: 03-27-2023 inject 0.4 mL by subcutaneous injection once daily Lovenox 40 mg/0.4 mL injectable solution Dose : 40 mg = 0.4 mL, Subcutaneous, qDay, X 6 week(s), # 16.8 mL, 0 Refill(s), 03/27/23 7:28:00 EDT Start Date: 02/13/23 Stop Date: 03/27/23 Status: Ordered famotidine 20 mg oral tablet (20 sources) Histamine-2 Receptor Antagonist Start: 10-01-2022 End: 12-10-2023 take 1 tablet by mouth once daily Famotidine 20 mg Tablet Discontinued 20 mg PO DAILY 30 30 October 01, 2022 1:00am December 10, 2023 11:49am LORazepam 0.5 mg oral tablet (20 sources) Benzodiazepine Start: 09-20-2022 End: 03-18-2025 take 1 tablet by mouth twice daily as needed for anxiety Lorazepam 0.5 mg tablet Discontinued 0.5 mg PO TWICE DAILY NEEDED as needed for anxiety March 06, 2025 12:00am March 18, 2025 9:04am Start: 09-20-2022 End: 06-15-2024 take 1 tablet by mouth at bedtime as needed for sleep Lorazepam 0.5 mg Tablet Discontinued 0.5 mg PO AT BEDTIME as needed for Sleep 3 3 April 17, 2024 10:47am May 30, 2024 1:38pm Comment on above: Take by mouth daily at bedtime. mesalamine 1200 mg delayed release oral tablet (20 sources) Aminosalicylate Start: 10-19-19 End: 04-22-20 take 1 tablet by mouth once daily Mesalamine 1.2 gram tablet,delayed release (DR/EC) Discontinued 1.2 g PO DAILY 30 30 December 07, 2024 6:36am January 09, 2025 10:35am Start: 06-14-2024 End: 10-19-2024 take 2 tablets by mouth once daily Mesalamine 1.2 gram tablet,delayed release (DR/EC) Discontinued 2.4 g PO DAILY 60 30 September 19, 2024 3:54pm October 19, 2024 11:54am mesalamine (Lial da) 1.2 g EC tablet Take 1,200 mg by mouth daily (with breakfast). Do not crush, chew, or split. Active metroNIDAZOLE 500 mg oral tablet (11 sources) Nitroimidazole Antimicrobial Start: 04-17-2024 End: 06-12-2024 take 1 tablet by mouth every eight hours Metronidazole 500 mg tablet Discontinued 500 mg PO Q8H 9 3 0 April 17, 2024 12:00am June 12, 2024 1:26am Gfikyigl-Zov-Vhaf-F a-Vit K-Lut (Multivitamin Women 50 Plus) 8 mg iron-400 mcg-300 mcg Tablet (20 sources) Start: 09-20-2022 End: 04-12-2024 Gyobkrgz-Egv-Hihj- Fa-Vit K-Lut (Multivitamin Women 50 Plus) 8 mg iron-400 mcg-300 mcg Tablet Discontinued 1 {tbl} PO DAILY September 20, 2022 1:00am April 12, 2024 9:36am vitamin Start: 09-20-2022 End: 04-12-2024 Xilxbion-Ooz-Wcfr-Fa-Vit K-L ut (Multivitamin Women 50 Plus) 8 mg iron-400 mcg-300 mcg Tablet Discontinued 1 {tbl} PO DAILY September 20, 2022 1:00am April 12, 2024 9:36am Start: 09-20-2022 take 1 tablet by aniceto th once daily Wzsyevcx-Csu-Xxjy-Fa-Vit K-Lut (Multivitamin Women 50 Plus) 8 mg iron-400 mcg-300 mcg Tablet Active 1 TABLET PO DAILY September 20, 2022 12:00am Start: 09-20-2022 take 1 tablet by aniceto th once daily Kivuutuc-Qcq-Jtog-Fa-Vit K-Lut (Multivitamin Women 50 Plus) 8 mg iron-400 mcg-300 mcg Tablet Active 1 TABLET PO DAILY September 20, 2022 1:00am multivit-min/iron/folic/lute in (MULTIVITAMIN WOMEN 50 PLUS ORAL) (1 source) multivit-min/iro n/folic/lutein (MULTIVITAMIN WOMEN 50 PLUS ORAL) Take by mouth once daily. Last dose 4/5 0 Active Comment on above: Take by mouth once d aily. Last dose 4/5 polyethylene glycol 3350 170 00 mg powder for oral solution (20 sources) Osmotic Laxative St ar t: 23 En d: 07 0 25 Polyethylene Glycol 3350 (Clearlax) 17 gram/dose powder Discontinued 17 g PO DAILY as needed for constipation April 12, 2024 12:00am March 06, 2025 4:12pm 24 hr propranolol hydrochlor david 60 mg extended release oral capsule (15 sources) beta-Adren ergic Kaci [facility] t: 24 En d: 24 take 1 capsule by mouth every twenty-fo ur hours at bedtime Propranolol 60 mg capsule,extended release 24 hr Discontinued 60 mg PO AT BEDTIME December 10, 2023 12:00am April 17, 2024 10:44am tremor Psyllium (15 sources) [facility] t: 23 En d: 24 take 8 [oz_av] by mouth once daily Psyllium Discontinued 1 PACKET PO DAILY September 20, 2022 1:00am December 10, 2023 12:03pm mix into at least 8 oz of water or juice before administering Start: 09-20-2022 take 8 [oz_av] by mo [facility] once daily Psyllium Active 1 PACKET PO DAILY September 20, 2022 1:00am mix into at least 8 oz of water or juice before administering Start: 09-20-2022 take 8 [oz_av] by mo [facility] once daily Psyllium Active 1 PACKET PO DAILY September 20, 2022 12:00am mix into at least 8 oz of water or juice before administering Psyllium Packet (11 sources) Start: 09-20-2022 End: 12-10-2023 take 8 [oz_av] by mouth once daily Psyllium Packet Discontinued 1 NMA PO DAILY September 20, 2022 1:00am December 10, 2023 12:03pm mix into at least 8 oz of water or juice before administering Sennosides (Evac-U-Gen (Sennosides)) 8.6 mg tablet (11 sources) Start: 04-12-2024 End: 06-20-2024 take 1 tablet by mouth once daily as needed for constipation Sennosides (Evac-U-Gen (Sennosides)) 8.6 mg tablet Discontinued 8.6 mg PO DAILY as needed for constipation April 12, 2024 12:00am June 20, 2024 11:40am traMADol hydrochloride 50 mg oral tablet (15 sources) Opioid Agonist Start: 12-10-2023 End: 04-12-2024 take 1 tablet by mouth three times daily as needed Tramadol 50 mg tablet Discontinued 50 mg PO 3 TIMES DAILY NEEDED December 10, 2023 12:00am April 12, 2024 9:36am pain Problems Active Problems Problem Classification Problem Date Documented Da te Episodic/Chronic Anxiety disorders (20 sources) Acute stress disorder; Translations: [Acute stress reaction] Onset: 5 05-27-2022 Chronic Comment on above: SITUATIONAL Complication of device; implant or graft (7 sources) Dislocation of hip joint prosthesis; Translations: [Dislocation of unspecified internal joint prosthesis, initial encounter] Onset: 5 03-05-2025 Episodic Complications of surgical procedures or medical care (1 source) Hypoinsulinemia following procedure; 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 Deficiency and other anemia (2 sources) Iron deficiency anemia secondary to blood loss (chronic); Translations: [Iron deficiency anemia due to chronic blood loss] Onset: Chronic Deficiency and other anemia (10 sources) Iron deficiency anemia; Translations: [Iron deficiency anemia, unspecified] 03-18-2025 Episodic Deficiency and other anemia (1 source) Anemia, unspecified; Translations: [Anemia, unspecified] Onset: 5 Episodic Diseases of white blood cells (11 sources) Leukocytosis; Translations: [Elevated white blood cell count, unspecified] 04-21-2024 Chronic E Codes: Fall (20 sources) Accidental fall ; Translations: [Unspecified fall, initial encounter] 02-19-2023 Episodic Esophageal disorders (19 sources) Gastroesophageal reflux disease; Translations: [Gastro-esophageal reflux disease without esophagitis] Onset: 5 06-12-2024 Chronic Essential hypertension (20 sources) Hypertensive disorder; Translations: [Essential (primary) hypertension] Onset: 5 05-27-2022 Chronic Fluid and electrolyte disorders (20 sources) Hyponatremia; Translations: [Hypo-osmolality and hyponatremia] Onset: 3 12-10-2023 Episodic Fracture of neck of femur (hip) (20 sources) Closed intertrochanteric fracture; Translations: [Displaced intertrochanteric fracture of right femur, initial encounter for closed fracture] Onset: 4 02-19-2023 Episodic Headache; including migraine (13 sources) Migraine; Translations: [Migraine, unspecified, not intractable, without status migrainosus] 09-03-2024 Chronic Intracranial injury (20 sources) Traumatic hematoma of subdural space of neuraxis; Translations: [Traumatic subdural hematoma] 02-19-2023 Episodic Joint disorders and dislocations; trauma-related (20 sources) Subluxation of shoulder joint; Translations: [Anterior subluxation of right humerus, initial encounter] Onset: 5 10-31-2021 Episodic Malaise and fatigue (18 sources) Asthenia; Translations: [Weakness] Onset: 5 03-18-2025 Episodic Mood disorders (8 sources) Depressive disorder; Translations: [Depression] 03-18-2025 Chronic Mood disorders (1 source) Mood disorders; Translations: [Depression, unspecified] Onset: Nonspecific chest pain (20 sources) Chest pain; Translations: [Chest pain, unspecified] 05-27-2022 Episodic Osteoarthritis (11 sources) Osteoarthritis; Translations: [Unspecified osteoarthritis, unspecified site] Onset: 5 03-18-2025 Chronic Osteoporosis (1 source) Age-related osteoporosis without current pathological fracture; Translations: [Age-related osteoporosis without current pathological fracture] Onset: Chronic Other gastrointestinal disorders (3 sources) Pelvic mass; Translations: [Intra-abdominal and pelvic swelling, mass and lump, unspecified site] 09-06-2024 Episodic Other gastrointestinal disorders (20 sources) Chronic constipation; Translations: [Other constipation] 06-12-2024 Episodic Other gastrointestinal disorders (20 sources) History of ischemic colitis; Translations: [Personal history of other diseases of the digestive system] 06-12-2024 Episodic Other gastrointestinal disorders (11 sources) Acute constipation; Translations: [Constipation, unspecified] 05-29-2024 Episodic Other gastrointestinal disorders (8 sources) Occult blood in stools; Translations: [Other fecal abnormalities] 03-13-2025 Episodic Other gastrointestinal disorders (3 sources) Intra-abdominal and pelvic swelling, mass and lump, unspecified site; Translations: [Intra-abdominal and pelvic swelling, mass and lump, unspecified site] Onset: Episodic Other gastrointestinal disorders (2 sources) Other constipation; Translations: [Other constipation] Onset: Episodic Other gastrointestinal disorders (2 sources) Personal history of other diseases of the digestive system; Translations: [Personal history of other diseases of the digestive system] Onset: Episodic Other gastrointestinal disorders (2 sources) Other fecal abnormalities; Translations: [Other fecal abnormalities] Onset: Episodic Other hematologic conditions (8 sources) H/O: anemia - iron deficient; Translations: [Personal history of diseases of the blood and blood-forming organs and certain disorders involving the immune mechanism] 03-08-2025 Episodic Other hematologic conditions (2 sources) Personal history of diseases of the blood and blood-forming organs and certain disorders involving the immune mechanism; Translations: [Personal history of diseases of the blood and blood-forming organs and certain disorders involving the immune mechanism] Onset: Episodic Other hereditary and degenerative nervous system conditions (8 sources) Essential tremor; Translations: [Essential tremor] 03-11-2025 Chronic Other hereditary and degenerative nervous system conditions (2 sources) Essential tremor; Translations: [Essential tremor] Onset: Chronic Other liver diseases (20 sources) Lesion of liver; Translations: [Liver disease, unspecified] 06-21-2024 Chronic Comment on above: increased in size on ct scan, normal liver enzymes. seen by GI. Other liver diseases (2 sources) Liver disease, unspecified; Translations: [Liver disease, unspecified] Onset: Chronic Other nervous system disorders (2 sources) Other chronic pain; Translations: [Other chronic pain] Onset: 5 Chronic Other nervous system disorders (20 sources) Postoperative pain ; Translations: [Other acute postprocedural pain] 10-01-2022 Episodic Other nervous system disorders (7 sources) Other acute postprocedural pain; Translations: [Other acute postoperative pain] Onset: 5 10-01-2022 Episodic Other non-traumatic joint disorders (1 source) Joint pain; Translations: [Pain in other specified joint] Episodic Other nutritional; endocrine; and metabolic disorders (8 sources) H/O: endocrine disorder; Translations: [Personal history of other endocrine, nutritional and metabolic disease] 03-08-2025 Episodic Other nutritional; endocrine; and metabolic disorders (2 sources) Personal history of other endocrine, nutritional and metabolic disease; Translations: [Personal history of other endocrine, nutritional and metabolic disease] Onset: 5 Episodic Ovarian cyst (20 sources) Cyst of ovary; Translations: [Unspecified ovarian cyst, unspecified side] Onset: 4 06-21-2024 Episodic Comment on above: refer to trust clerk onc for evaluation, cea and ca125 ordered, pelvic ultrasound Right ovarian cyst m easuring 9.8 x 8.5 x 6.5 cm. Enlarging. Has seen Dr. Newsome and she was referred to [facility] for follow up. Peripheral and visceral atherosclerosis (20 sources) Ischemic colitis; Translations: [Vascular disorder of intestine, unspecified] Onset: 5 04-13-2024 Chronic Residual codes; unclassified (2 sources) Insomnia due to medical condition; Translations: [Insomnia due to medical condition] Onset: 5 Chronic Residual codes; unclassified (8 sources) Insomnia; Translations: [Insomnia, unspecified] 03-07-2025 Episodic Spondylosis; intervertebral disc disorders; other back problems (20 sources) Backache; Translations: [Dorsalgia, unspecified] 03-23-2023 Episodic Comment on above: CHRONIC Superficial injury; contusion (20 sources) Tick bite; Translations: [Insect bite (nonvenomous) of unspecified upper arm, initial encounter] 06-25-2023 Episodic Unclassified (2 sources) Low back pain, unspecified; Translations: [Low back pain, unspecified] Onset: 5 Past or Other Problems Problem Classification Problem Date Documented Da te Episodic/Chronic Abdominal pain (20 sources) Abdominal pain; Translations: [Unspecified abdominal pain] Onset: 4 04-21-2024 Episodic E Codes: Adverse effects of medical drugs (12 sources) Adverse reaction to drug; Translations: [Adverse effect of unspecified drugs, medicaments and biological substances, initial encounter] Onset: 4 06-12-2024 Episodic Gastrointestinal hemorrhage (20 sources) Acute lower gastrointestinal hemorrhage; Translations: [Gastrointestinal hemorrhage, unspecified] Onset: 4 12-10-2023 Episodic Other and unspecified benign neoplasm (1 source) Benign neoplasm of colon; Translations: [Benign neoplasm of colon, unspecified] Onset: 9 09-10-2008 Episodic Other screening for suspected conditions (not mental disorders or infectious disease) (1 source) Patient encounter status; Translations: [Encounter for screening for malignant neoplasm of colon] Onset: 9 09-10-2008 Episodic Other skin disorders (1 source) Sebaceous cyst of skin; Translations: [Sebaceous cyst] Onset: 9 04-29-2009 Episodic Results Test Name Value Interpretation Reference Range Facility CT HIP W/O CONTRAST RIGHTon 05-08-2025 CT HIP W/O CONTRAST RIGHT ORIGINAL EXAMINATION: CT OF THE RIGHT HIP WITHOUT CONTRAST 05/07/2025 2:33 pm TECHNIQUE: CT of the right hip was performed without the administration of intravenous contrast. Multiplanar reformatted images are provided for review. Automated exposure control, iterative reconstruction, and/or weight based adjustment of the mA/kV was utilized to reduce the radiation dose to as low as reasonably achievable. COMPARISON: None. HISTORY ORDERING SYSTEM PROVIDED HISTORY: Reason for Exam: Displaced intertrochanteric fracture of the right femur Displaced intertrochanteric fracture of the right femur FINDINGS: Superior dislocation of the femoral head prosthesis. No hardware fracture. No periprosthetic fracture or lucency. Polyethylene liner normally surrounds the femoral head. There is probably a small effusion. IMPRESSION: Superior femoral prosthetic component dislocation. No fracture demonstrated. Metallic artifact slightly limits evaluation, and radiographs are still recommended to supplement this CT study. Interpreted by: Chavez Nash Preliminary Report By: Chavez Nash Electronically signed By Chavez Nash Dictated Date: 05/08/2025 7:36:25 AM Prelim Date: 05/08/2025 7:49:01 AM Sign Date: 05/08/2025 7:49:01 AM Ordering Provider: DANIE GRACIA Normal [facility] Emergency Department Summary on 04-30-2025 Emergency Department Summary Normal [facility] HIP, UNI W/ Pelvis 2-3 Views on 04-30-2025 HIP, UNI W/ Pelvis 2-3 Views Normal [facility] Hip Min 2 Views (Portable)on 04-30-2025 Hip Min 2 Views (Portable) Normal [facility] Office Visiton 04-24-2025 Follow-up visit [id number] Jeanine Leonard 1940 F Date Provider Department Center 04/24/2025 [id number] GARCIA [facility] [employer] S[employer]ET[employer] SPECIALIST None Family History Problem Relation Age of Onset Heart disease Father Rheumatic fever Father Family Status - Relation Status Age at Father Level of Service:29387 [place] OFFICE/OUTPATIENT ESTABLISHED MDM 10 MIN Reason for Visit and Comments: Female Problem [263] Normal [facility] Progress Noteon 04-24-2025 Progress Note CC: Enlarging pelvic mass HPI: May Leonard is a pleasant 84 y.o. female who presented in consultation from Dr. Newsome for further evaluation and management of persistent left adnexal mass along with abdominal pain and an enhancing liver lesion in the right lobe which has increased slightly in size in September 2024. She initiallypresented with an episode of colitis and underwent a CT scan that showed a left adnexal mass. She is undergone several imaging studies since April which does show a 7 to 8 cm benign-appearing left adnexal mass. A liver lesion was also noted but the patient states a recent MRI was done and she was told by her guardian family member that the liver lesion is benign. Patient states the left pelvic mass causes no symptoms, denies any pelvic pressure or pain problems with bowel or bladder habits. Denies any vaginal bleeding. He is here today to discuss options for a incidentally found cystic left ovarian mass. Patient underwent repeat ultrasound at [facility] which unfortunately shows growth in the size of the lesion. Patient presented back to the office in December 2024 to discuss the slight growth in the left adnexal mass. At that time she elected for conservative observation. 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 The neoplasm is exactly the same size as ultrasound in December. Patient presents today from a senior living facility in a wheelchair as well as with a full leg brace. She has had a fracture of her leg and is awaiting possibility of surgical repair. She denies any signs or symptoms from the cyst denies any abdominal pain or distention is eating well. Medical History[1] Surgical History[2] Social History[3] Current Medications[4] Review of Systems Naproxen and Prednisone There were no vitals taken for this visit. Physical Exam Reviewed several ultrasound reports. Reviewed the CT scan with the patient showing a very benign-appearing cyst Assessment: Stable benign-appearing ovarian cyst in an elderly lady with multiple medical comorbidities. Plan: We discussed surgical removal versus close observation. Most likely this is a benign cyst and I feel that surgical intervention would not be necessary. The patient is in agreement as multiple medical comorbidities and the risk of surgery would not be insignificant. I have recommended that if she was started noticing any symptoms from the mass such as abdominal pain or discomfort bloating she should give me a call. Otherwise I did recommend follow-up with Dr. Eduardo Woods on an annual basis. [1] Past Medical History: Diagnosis Date Anxiety Arthritis Back pain Constipation Hypertension Hyponatremia Leg cramps Lower gastrointestinal bleed Migraine [2] Past Surgical History: Procedure Laterality Date CATARACT EXTRACTION Bilateral COLONOSCOPY REVISE TOTAL HIP REPLACEMENT (HISTORICAL) TOTAL SHOULDER ARTHROPLASTY [3] Social History Socioeconomic History Marital status: Unknown Tobacco Use Smoking status: Former Types: Cigarettes Smokeless tobacco: Never Substance and Sexual Activity Alcohol use: Yes Comment: social Drug use: Never Social Drivers of Health Food Insecurity: No Food Insecurity (02/21/2024) Received from [facility] Hunger Vital Sign Worried About Running Out of Food in the Last Year: Never true Ran Out of Food in the Last Year: Never true Transportation Needs: No Transportation Needs (02/21/2024) Received from [facility] PRAPARE - Transportation Lack of Transportation (Medical): No Lack of Transportation (Non-Medical): No Housing Stability: Unknown (02/21/2024) Received from [facility] Housing Stability Vital Sign Unable to Pay for Housing in the Last Year: No Unstable Housing in the Last Year: No [4] Current Outpatient Medications Medication Sig Dispense Refill acetaminophen (Tylenol) 500 MG tablet Take 1 tablet by mouth daily. calcium carbonate 260 MG chewable tablet Chew daily. celecoxib (CeleBREX) 200 MG capsule Take 1 capsule every day by oral route. dicyclomine (Bentyl) 10 MG capsule Take 10 mg by mouth 4 times daily. Docusate Sodium (DSS) 100 MG capsule Take 100 mg by mouth every 12 hours as needed. DULoxetine (Cymbalta) [address] capsule lisinopril 20 MG tablet Take 1 tablet by mouth daily. mesalamine (Lialda) 1.2 g EC tablet Take 1,200 mg by mouth daily (with breakfast). Do not crush, chew, or split. oxyCODONE (Oxy-IR) 5 MG immediate release capsule Take 5 mg by mouth. pantoprazole (ProtoNix) 40 MG injection Infuse 40 mg into a venous catheter. polyethylene glycol, PEG, 3350 (Miralax) 17 g packet Take 17 g by mouth daily. primidone (Mysoline) 50 MG tablet Take by mouth. sennosides (Senokot) 8.6 MG tablet Take 2 tablets by mouth daily at [facility] (more content not included)... Normal [facility] Pelvic w/ Transvaginalon Pelvic w/ Transvaginal Normal [facility] Gastroenterology Visit Repor ton 04-12-2025 Gastroenterology Visit Report [facility] Acid Fast Bacillus Cultureon 04-09-2025 tAFBC [facility] Comment on above: Performed By: #### M 100.2000, M300.2000, L200.0400, M300.3000, M600.2000, M100.2900, M100.4001, L200.4175 ####[facility] [address] [place], [address] Acid Fast Bacillus Smear/Flu oron 04-09-2025 tafb [facility] Comment on above: Performed By: #### M 100.2000, M300.2000, L200.0400, M300.3000, M600.2000, M100.2900, M100.4001, L200.4175 ####[facility] [address] [place], [address] Culture, Fungus 8482on 04-09 CUF [facility] Comment on above: Performed By: #### M 100.2000, M300.2000, L200.0400, M300.3000, M600.2000, M100.2900, M100.4001, L200.4175 ####[facility] [address] [place], [address] 36on 03-29-2025 36 Spoke to patient and she states she does not have sxs of a uti and that she has been drinking too much prior to bed and she drank less last night and it was better. Reminded of appointment on 04/10@[address] Garcia. She is aware that it should not be a problem for her to wear her leg brace when in surgery because it is below the knee but she will discuss with Dr. Garcia at her visit. She injured her hip and is not supposed to bend her knee. Normal [facility] 36 Patient would like t o know if she can still have surgery with an immobilizer on her leg. Mentioned she's also having increase in need to urinate and some pressure. Please contact when able, thank you Normal [facility] Anion gap in Serum or Plasma Ordered By: Justina Perea on 03-20-2025 Anion gap [Moles/Vol] 10 mmol/L 5-15 [facility] BUN/creatinine ratioOrdered By: Justina Perea on 03-20-2025 Urea nitrogen/Creatinine [Mass ratio] 42.4 mg/mg High 10-20 [facility] Basic Metabolic Profile (BMP )on 03-20-2025 BUN/CRE 42.4 RATIO High - [facility] Comment on above: Performed By: #### L 500.2500, L100.0500 ####[facility] [address] [place], [address] Calcium [Mass/Vol] 9.2 mg/dL Normal 7.6-11.0 [facility] Comment on above: Performed By: #### L 500.2500, L100.0500 ####[facility] [address] [place], [address] Chloride [Moles/Vol] 96 mmol/L Low 98-108 [facility] Comment on above: Performed By: #### L 500.2500, L100.0500 ####[facility] [address] [place], [address] CO2 [Moles/Vol] 24.6 mmol/L Normal 21.0-32.0 [facility] Comment on above: Performed By: #### L 500.2500, L100.0500 ####[facility] [address] [place], [address] Creatinine [Mass/Vol] 0.73 mg/dL Normal 0.70-1.20 [facility] Comment on above: Performed By: #### L 500.2500, L100.0500 ####[facility] [address] [place], [address] ECRCL 43.82 ml/min Low 50-250 [facility] Comment on above: Performed By: #### L 500.2500, L100.0500 ####[facility] [address] [place], [address] GAP 10 Normal 5-15 [facility] Comment on above: Performed By: #### L 500.2500, L100.0500 ####[facility] [address] [place], [address] GFR/1.73 sq M.predicted among non-blacks MDRD (S/P/Bld) [Vol rate/Area] 83 mL/min/{1.73_m2} Normal >60 [facility] Comment on above: Result Comment: mL/m in/1.73m2 CKD-EPI Creatinine Equation (2020) Performed By: #### L 500.2500, L100.0500 ####[facility] [address] [place], [address] Glucose [Mass/Vol] 88 mg/dL Normal 70-99 [facility] Comment on above: Performed By: #### L 500.2500, L100.0500 ####[facility] [address] [place], [address] Potassium [Moles/Vol] 4.9 mmol/L Normal 3.3-5.1 [facility] Comment on above: Performed By: #### L 500.2500, L100.0500 ####[facility] [address] [place], [address] Sodium [Moles/Vol] 131 mmol/L Low 133-145 [facility] Comment on above: Performed By: #### L 500.2500, L100.0500 ####[facility] [address] [place], [address] Urea nitrogen [Mass/Vol] 31 mg/dL High 4-19 [facility] Comment on above: Performed By: #### L 500.2500, L100.0500 ####[facility] [address] [place], [address] CBC-Complete Blood Cnt No Di ffon 03-20-2025 Erythrocyte distribution width (RBC) [Ratio] 15.4 % High 11.6-14.6 [facility] Comment on above: Performed By: #### L 500.2500, L100.0500 ####[facility] [address] [place], [address] Hematocrit (Bld) [Volume fraction] 30.1 % Low 37-47 [facility] Comment on above: Performed By: #### L 500.2500, L100.0500 ####[facility] [address] [place], [address] Hemoglobin (Bld) [Mass/Vol] 10.4 g/dL Low 12.0-15.0 [facility] Comment on above: Performed By: #### L 500.2500, L100.0500 ####[facility] [address] [place], [address] MCH (RBC) [Entitic mass] 32.8 pg High 27.0-32.0 [facility] Comment on above: Performed By: #### L 500.2500, L100.0500 ####[facility] [address] [place], [address] MCHC (RBC) [Mass/Vol] 34.6 g/dL Normal 32-36 [facility] Comment on above: Performed By: #### L 500.2500, L100.0500 ####[facility] [address] [place], [address] MCV (RBC) [Entitic vol] 95.0 fL Normal 81-99 [facility] Comment on above: Performed By: #### L 500.2500, L100.0500 ####[facility] [address] [place], [address] Platelet mean volume (Bld) [Entitic vol] 8.7 fL Normal 6.2-12.0 [facility] Comment on above: Performed By: #### L 500.2500, L100.0500 ####[facility] [address] [place], [address] Platelets (Bld) [#/Vol] 443 10*3/uL Normal 150-450 [facility] Comment on above: Performed By: #### L 500.2500, L100.0500 ####[facility] [address] [place], [address] RBC (Bld) [#/Vol] 3.17 10*6/uL Low 4.2-5.4 [facility] Comment on above: Performed By: #### L 500.2500, L100.0500 ####[facility] [facility] [address] [place], [address] RDW SD 53.1 fl High 35.1-43.9 [facility] Comment on above: Performed By: #### L 500.2500, L100.0500 ####[facility] [address] [place], [address] WBC (Bld) [#/Vol] 6.7 10*3/uL Normal 4.4-11.0 [facility] Comment on above: Performed By: #### L 500.2500, L100.0500 ####[facility] [address] [place], [address] Carbon dioxide, total [Moles /volume] in Central venous bloodOrdered By: Justina Perea on 03-20-2025 CO2 [Moles/Vol] 24.6 mmol/L 21.0-32.0 [facility] Chloride assayOrdered By: Derek Perea on 03-20-2025 Chloride [Moles/Vol] 96 mmol/L Low 98-108 [facility] Erythrocyte distribution wid th ratioOrdered By: Justina Perea on 03-20-2025 Erythrocyte distribution width (RBC) [Ratio] 15.4 % High 11.6-14.6 [facility] Erythrocyte distribution wid th standard deviationOrdered By: Justina Perea on 03-20-2025 Erythrocyte distribution width (RBC) [Ratio] 53.1 fl High 35.1-43.9 [facility] Glomerular filtration rate ( GFR) estimation/1.73 sq m using serum, plasma, or whole bOrdered By: Justina Perea on 03-20-2025 GFR/1.73 sq M.predicted among non-blacks MDRD (S/P/Bld) [Vol rate/Area] 83 mL/min/{1.73_m2} >60 [facility] Comment on above: mL/min/1.73m2 CKD-EP I Creatinine Equation (2020) Hematocrit Auto (Bld) [Volum e fraction]Ordered By: Justina Perea on 03-20-2025 Hematocrit (Bld) [Volume fraction] 30.1 % Low 37-47 [facility] Hemoglobin measurementOrdere d By: Justina Perea on 03-20-2025 Hemoglobin (Bld) [Mass/Vol] 10.4 g/dL Low 12.0-15.0 [facility] MCV (mean corpuscular volume ) determinationOrdered By: Justina Perea on 03-20-2025 MCV (RBC) [Entitic vol] 95.0 fL 81-99 [facility] Mean corpuscular hemoglobin (MCH) determinationOrdered By: Justina Perea on 03-20-2025 MCH (RBC) [Entitic mass] 32.8 pg High 27.0-32.0 [facility] Mean corpuscular hemoglobin concentration (MCHC) determinationOrdered By: Justina Eliazar on 03-20-2025 MCHC (RBC) [Mass/Vol] 34.6 g/dL 32-36 [facility] Mean platelet volume determi nationOrdered By: Justina Eliazar on 03-20-2025 Platelet mean volume (Bld) [Entitic vol] 8.7 fL 6.2-12.0 [facility] Platelet countOrdered By: Derek vizcarra Eliazar on 03-20-2025 Platelets (Bld) [#/Vol] 443 10*3/uL 150-450 [facility] Potassium measurement (mass/ volume)Ordered By: Justina Perea on 03-20-2025 Potassium (Unsp spec) [Mass/Vol] 4.9 mmol/L 3.3-5.1 [facility] RBC Auto (Bld) [#/Vol]Ordere d By: Justina Eliazar on 03-20-2025 RBC (Bld) [#/Vol] 3.17 10*6/uL Low 4.2-5.4 [facility] Serum creatinine measurement (mass/volume)Ordered By: Justina Perea on 03-20-2025 Creatinine [Mass/Vol] 0.73 mg/dL 0.70-1.20 [facility] Serum glucose measurement (m ass/volume)Ordered By: Justina Perea on 03-20-2025 Glucose [Mass/Vol] 88 mg/dL 70-99 [facility] Serum or plasma calcium alexander urement (mass/volume)Ordered By: Justina Perea on 03-20-2025 Calcium [Mass/Vol] 9.2 mg/dL 7.6-11.0 [facility] Serum or plasma urea nitroge n measurement (mass/volume)Ordered By: Justina Perea on 03-20-2025 Urea nitrogen [Mass/Vol] 31 mg/dL High 4-19 [facility] Sodium levelOrdered By: Justina Perea on 03-20-2025 Sodium [Moles/Vol] 131 mmol/L Low 133-145 [facility] White blood cell (WBC) count Ordered By: Justina Perea on 03-20-2025 WBC (Bld) [#/Vol] 6.7 10*3/uL 4.4-11.0 [facility] Discharge Instructionon 03-05 Discharge Instruction Normal [facility] Basic Metabolic Profile (BMP )on 03-15-2025 BUN/CRE 42.5 RATIO High 10-20 [facility] Comment on above: Performed By: #### L 500.2500, L100.0600 ####[facility] [address] [place], [address] Calcium [Mass/Vol] 9.3 mg/dL Normal 7.6-11.0 [facility] Comment on above: Performed By: #### L 500.2500, L100.0600 ####[facility] [address] [place], [address] Chloride [Moles/Vol] 100 mmol/L Normal 98-108 [facility] Comment on above: Performed By: #### L 500.2500, L100.0600 ####[facility] [address] [place], [address] CO2 [Moles/Vol] 25.2 mmol/L Normal 21.0-32.0 [facility] Comment on above: Performed By: #### L 500.2500, L100.0600 ####[facility] [address] [place], [address] Creatinine [Mass/Vol] 0.62 mg/dL Low 0.70-1.20 [facility] Comment on above: Performed By: #### L 500.2500, L100.0600 ####[facility] [address] [place], [address] ECRCL 44.51 ml/min Low 50-250 [facility] Comment on above: Performed By: #### L 500.2500, L100.0600 ####[facility] [address] [place], [address] GAP 10 Normal 5-15 [facility] Comment on above: Performed By: #### L 500.2500, L100.0600 ####[facility] [address] [place], [address] GFR/1.73 sq M.predicted among non-blacks MDRD (S/P/Bld) [Vol rate/Area] 89 mL/min/{1.73_m2} Normal >60 [facility] Comment on above: Result Comment: mL/m in/1.73m2 CKD-EPI Creatinine Equation (2020) Performed By: #### L 500.2500, L100.0600 ####[facility] [address] [place], [address] Glucose [Mass/Vol] 92 mg/dL Normal 70-99 [facility] Comment on above: Performed By: #### L 500.2500, L100.0600 ####[facility] [address] [place], [address] Potassium [Moles/Vol] 4.9 mmol/L Normal 3.3-5.1 [facility] Comment on above: Performed By: #### L 500.2500, L100.0600 ####[facility] [address] [place], [address] Sodium [Moles/Vol] 134 mmol/L Normal 133-145 [facility] Comment on above: Performed By: #### L 500.2500, L100.0600 ####[facility] [address] [place], [address] Urea nitrogen [Mass/Vol] 27 mg/dL High 4-19 [facility] Comment on above: Performed By: #### L 500.2500, L100.0600 ####[facility] [address] [place], [address] HH, Hemoglobin AND Hematocri ton 03-15-2025 Hematocrit (Bld) [Volume fraction] 29.6 % Low 37-47 [facility] Comment on above: Performed By: #### L 500.2500, L100.0600 ####[facility] [address] [place], [address] Hemoglobin (Bld) [Mass/Vol] 10.0 g/dL Low 12.0-15.0 [facility] Comment on above: Performed By: #### L 500.2500, L100.0600 ####[facility] [address] [place], [address] Hemoglobin A1con 03-14-2025 HbA1c (Bld) [Mass fraction] 5.9 % High <=5.6 [facility] Comment on above: Result Comment: Norm al < 5.7 % Prediabetic 5.7 - 6.4 % Diabetic >or= 6.5 % Please note range changes. Performed By: #### L 501.9985 ####[facility] [address] [place], [address] Hemoglobin A1c percentageOrd ered By: Justina Perea on 03-14-2025 HbA1c (Bld) [Mass fraction] 5.9 % High <5.7 [facility] Comment on above: Normal < 5.7 % Predi abetic 5.7 - 6.4 % Diabetic >or= 6.5 % Please note range changes. Basic Metabolic Profile (BMP )on 03-11-2025 BUN/CRE 47.4 RATIO High 10-20 [facility] Comment on above: Performed By: #### L 100.0600, L500.2500 ####[facility] [address] [place], [address] Calcium [Mass/Vol] 8.9 mg/dL Normal 7.6-11.0 [facility] Comment on above: Performed By: #### L 100.0600, L500.2500 ####[facility] [address] [place], [address] Chloride [Moles/Vol] 102 mmol/L Normal 98-108 [facility] Comment on above: Performed By: #### L 100.0600, L500.2500 ####[facility] [address] [place], [address] CO2 [Moles/Vol] 26.8 mmol/L Normal 21.0-32.0 [facility] Comment on above: Performed By: #### L 100.0600, L500.2500 ####[facility] [address] [place], [address] Creatinine [Mass/Vol] 0.56 mg/dL Low 0.70-1.20 [facility] Comment on above: Performed By: #### L 100.0600, L500.2500 ####[facility] [address] [place], [address] ECRCL 43.39 ml/min Low 50-250 [facility] Comment on above: Performed By: #### L 100.0600, L500.2500 ####[facility] [address] [place], [address] GAP 7 Normal 5-15 [facility] Comment on above: Performed By: #### L 100.0600, L500.2500 ####[facility] [address] [place], [address] GFR/1.73 sq M.predicted among non-blacks MDRD (S/P/Bld) [Vol rate/Area] 91 mL/min/{1.73_m2} Normal >60 [facility] Comment on above: Result Comment: mL/m in/1.73m2 CKD-EPI Creatinine Equation (2020) Performed By: #### L 100.0600, L500.2500 ####[facility] [address] [place], [address] Glucose [Mass/Vol] 108 mg/dL High 70-99 [facility] Comment on above: Performed By: #### L 100.0600, L500.2500 ####[facility] [address] [place], [address] Potassium [Moles/Vol] 5.0 mmol/L Normal 3.3-5.1 [facility] Comment on above: Performed By: #### L 100.0600, L500.2500 ####[facility] [address] [place], [address] Sodium [Moles/Vol] 136 mmol/L Normal 133-145 [facility] Comment on above: Performed By: #### L 100.0600, L500.2500 ####[facility] [address] [place], [address] Urea nitrogen [Mass/Vol] 27 mg/dL High 4-19 [facility] Comment on above: Performed By: #### L 100.0600, L500.2500 ####[facility] [address] [place], [address] HH, Hemoglobin AND Hematocri ton 03-11-2025 Hematocrit (Bld) [Volume fraction] 30.1 % Low 37-47 [facility] Comment on above: Performed By: #### L 100.0600, L500.2500 ####[facility] [address] [place], [address] Hemoglobin (Bld) [Mass/Vol] 10.0 g/dL Low 12.0-15.0 [facility] Comment on above: Performed By: #### L 100.0600, L500.2500 ####[facility] [address] [place], [address] Iron measurement (mass/mass) Ordered By: Justina Perea on 03-08-2025 Iron (Unsp spec) [Mass/Mass] 20 ug/dL Low 50-170 [facility] Iron+Iron Binding Capacityon 03-08-2025 TIBC 188 ug/dL Low 250-450 [facility] Comment on above: Performed By: #### L 503.6030, L503.6550 ####[facility] [address] [place], [place], [address] No Panel InformationOrdered By: Justina Lewispavel on 03-08-2025 Unsaturated Iron Binding Capacity 168 ug/dL Low 228-428 [facility] Serum or plasma ferritin tariq surement (mass/volume)Ordered By: Justina Lewispavel on 03-08-2025 Ferritin [Mass/Vol] 177 ng/mL Normal 22-378 [facility] Comment on above: Performed By: #### L 503.6030, L503.6550 ####[facility] [address] [place], [address] Serum or plasma iron saturat ion measurement (mass fraction)Ordered By: Justina Lewispavel on 03-08-2025 Iron saturation [Mass fraction] 11.0 % Low 13-59 [facility] Comment on above: Previous reported re sult: 11.0 %Edited by: FALLON on 03/08/25:1548 Stool Occult Blood iFOBon STOB Positive Normal [facility] Comment on above: Performed By: #### M 100.7900 ####[facility] [address] [facility] [place], [address] Stool gastrointestinal hemog lobin detection by immunologic methodOrdered By: Justina Eliazar on 03-08-2025 Lower GI hemoglobin IA Ql (Stl) Positive Abnormal [facility] Absolute lymphocyte countOrd ered By: Justina Lewispavel on 03-07-2025 Lymphocytes Auto (Unsp spec) [#/Vol] 1.23 10*3/uL 0.83-4.51 [facility] Absolute neutrophil countOrd ered By: Justina Lewispavel on 03-07-2025 Neutrophils (Bld) [#/Vol] 5.7 10*3/uL 2.0-7.7 [facility] Automated lymphocyte count a s percentage of total leukocytesOrdered By: Justina Perea on 03-07-2025 Lymphocytes/100 WBC Auto (Unsp spec) 15.8 % Low 19-41 [facility] Basophil percentageOrdered B y: Justina Perea on 03-07-2025 Basophils/100 WBC (Bld) 0.3 % 0-1 [facility] Bilirubin, totalOrdered By: Justina Perea on 03-07-2025 Bilirubin [Mass/Vol] 0.30 mg/dL 0.00-1.30 [facility] CBC W/Diff, Automatedon Absolute Lymph 1.23 X10 3/uL Normal 0.83-4.51 [facility] Comment on above: Performed By: #### L 500.4050, L501.2300, L100.0100, L501.5200 ####[facility] [address] [place], [address] Absolute Neut 5.7 X10 3/uL Normal 2.0-7.7 [facility] Comment on above: Performed By: #### L 500.4050, L501.2300, L100.0100, L501.5200 ####[facility] [address] [place], [address] Basophils/100 WBC (Bld) 0.3 % Normal 0-1 [facility] Comment on above: Performed By: #### L 500.4050, L501.2300, L100.0100, L501.5200 ####[facility] [address] [place], [address] Eosinophils/100 WBC (Bld) 4.4 % Normal 0-5 [facility] Comment on above: Performed By: #### L 500.4050, L501.2300, L100.0100, L501.5200 ####[facility] [address] [place], [address] Erythrocyte distribution width (RBC) [Ratio] 14.6 % Normal 11.6-14.6 [facility] Comment on above: Performed By: #### L 500.4050, L501.2300, L100.0100, L501.5200 ####[facility] [address] [place], [address] Hematocrit (Bld) [Volume fraction] 30.1 % Low 37-47 [facility] Comment on above: Performed By: #### L 500.4050, L501.2300, L100.0100, L501.5200 ####[facility] [address] [place], [address] Hemoglobin (Bld) [Mass/Vol] 10.4 g/dL Low 12.0-15.0 [facility] Comment on above: Performed By: #### L 500.4050, L501.2300, L100.0100, L501.5200 ####[facility] [address] [place], [address] IG% 0.400 Normal 0.0-0.9 [facility] Comment on above: Result Comment: IG% - Immature Granulocytes (promyelocytes, myelocytes andmetamyelocytes) > 1% indicates that a LEFT SHIFT is Present. Performed By: #### L 500.4050, L501.2300, L100.0100, L501.5200 ####[facility] [address] [place], [address] Lymphocytes/100 WBC (Bld) 15.8 % Low 19-41 [facility] Comment on above: Performed By: #### L 500.4050, L501.2300, L100.0100, L501.5200 ####[facility] [address] [place], [address] MCH (RBC) [Entitic mass] 32.5 pg High 27.0-32.0 [facility] Comment on above: Performed By: #### L 500.4050, L501.2300, L100.0100, L501.5200 ####[facility] [address] [place], [address] MCHC (RBC) [Mass/Vol] 34.6 g/dL Normal 32-36 [facility] Comment on above: Performed By: #### L 500.4050, L501.2300, L100.0100, L501.5200 ####[facility] [address] [place], [address] MCV (RBC) [Entitic vol] 94.1 fL Normal 81-99 [facility] Comment on above: Performed By: #### L 500.4050, L501.2300, L100.0100, L501.5200 ####[facility] [address] [place], [address] Monocytes/100 WBC (Bld) 6.2 % Normal 0-10 [facility] Comment on above: Performed By: #### L 500.4050, L501.2300, L100.0100, L501.5200 ####[facility] [address] [place], [address] Neutrophils/100 WBC (Bld) 72.9 % High 47-70 [facility] Comment on above: Performed By: #### L 500.4050, L501.2300, L100.0100, L501.5200 ####[facility] [address] [place], [address] Nucleated RBC (Bld) [#/Vol] 0 10*3/uL Normal 0-5 [facility] Comment on above: Performed By: #### L 500.4050, L501.2300, L100.0100, L501.5200 ####[facility] [address] [place], [address] Platelet mean volume (Bld) [Entitic vol] 9.1 fL Normal 6.2-12.0 [facility] Comment on above: Performed By: #### L 500.4050, L501.2300, L100.0100, L501.5200 ####[facility] [address] [place], [address] Platelets (Bld) [#/Vol] 295 10*3/uL Normal 150-450 [facility] Comment on above: Performed By: #### L 500.4050, L501.2300, L100.0100, L501.5200 ####[facility] [address] [place], [address] RBC (Bld) [#/Vol] 3.20 10*6/uL Low 4.2-5.4 [facility] Comment on above: Performed By: #### L 500.4050, L501.2300, L100.0100, L501.5200 ####[facility] [address] [place], [address] RDW SD 50.6 fl High 35.1-43.9 [facility] Comment on above: Performed By: #### L 500.4050, L501.2300, L100.0100, L501.5200 ####[facility] [address] [place], [address] WBC (Bld) [#/Vol] 7.8 10*3/uL Normal 4.4-11.0 [facility] Comment on above: Performed By: #### L 500.4050, L501.2300, L100.0100, L501.5200 ####[facility] [address] [place], [address] Comprehensive Metabolic Prof ilon 03-07-2025 Albumin [Mass/Vol] 3.2 g/dL Low 3.4-4.8 [facility] Comment on above: Performed By: #### L 500.4050, L501.2300, L100.0100, L501.5200 ####[facility] [address] [place], [address] Albumin/Globulin [Mass ratio] 1.4 {ratio} Normal 0.9-2.4 [facility] Comment on above: Performed By: #### L 500.4050, L501.2300, L100.0100, L501.5200 ####[facility] [address] [place], [address] ALK PHOS 53 U/L Normal 35-104 [facility] Comment on above: Performed By: #### L 500.4050, L501.2300, L100.0100, L501.5200 ####[facility] [address] [place], [address] ALT [Catalytic activity/Vol] 18 U/L Normal <=34 [facility] Comment on above: Performed By: #### L 500.4050, L501.2300, L100.0100, L501.5200 ####[facility] [address] [place], [address] AST [Catalytic activity/Vol] 20 U/L Normal <=31 [facility] Comment on above: Performed By: #### L 500.4050, L501.2300, L100.0100, L501.5200 ####[facility] [address] [place], [address] Bilirubin [Mass/Vol] 0.30 mg/dL Normal 0.00-1.30 [facility] Comment on above: Performed By: #### L 500.4050, L501.2300, L100.0100, L501.5200 ####[facility] [address] [place], [address] BUN/CRE 22.0 RATIO High 10-20 [facility] Comment on above: Performed By: #### L 500.4050, L501.2300, L100.0100, L501.5200 ####[facility] [address] [place], [address] Calcium [Mass/Vol] 8.7 mg/dL Normal 7.6-11.0 [facility] Comment on above: Performed By: #### L 500.4050, L501.2300, L100.0100, L501.5200 ####[facility] [address] [place], [address] Chloride [Moles/Vol] 95 mmol/L Low 98-108 [facility] Comment on above: Performed By: #### L 500.4050, L501.2300, L100.0100, L501.5200 ####[facility] [address] [place], [address] CO2 [Moles/Vol] 23.6 mmol/L Normal 21.0-32.0 [facility] Comment on above: Performed By: #### L 500.4050, L501.2300, L100.0100, L501.5200 ####[facility] [address] [place], [address] Creatinine [Mass/Vol] 0.58 mg/dL Low 0.70-1.20 [facility] Comment on above: Performed By: #### L 500.4050, L501.2300, L100.0100, L501.5200 ####[facility] [address] [place], [address] ECRCL 42.71 ml/min Low 50-250 [facility] Comment on above: Performed By: #### L 500.4050, L501.2300, L100.0100, L501.5200 ####[facility] [address] [place], [address] GAP 10 Normal 5-15 [facility] Comment on above: Performed By: #### L 500.4050, L501.2300, L100.0100, L501.5200 ####[facility] [address] [place], [address] GFR/1.73 sq M.predicted among non-blacks MDRD (S/P/Bld) [Vol rate/Area] 90 mL/min/{1.73_m2} Normal >60 [facility] Comment on above: Result Comment: mL/m in/1.73m2 CKD-EPI Creatinine Equation (2020) Performed By: #### L 500.4050, L501.2300, L100.0100, L501.5200 ####[facility] [address] [place], [address] Globulin (S) [Mass/Vol] 2.3 g/dL Normal 2.2-4.2 [facility] Comment on above: Performed By: #### L 500.4050, L501.2300, L100.0100, L501.5200 ####[facility] [address] [place], [address] Glucose [Mass/Vol] 105 mg/dL High 70-99 [facility] Comment on above: Performed By: #### L 500.4050, L501.2300, L100.0100, L501.5200 ####[facility] [address] [place], [address] Potassium [Moles/Vol] 4.3 mmol/L Normal 3.3-5.1 [facility] Comment on above: Performed By: #### L 500.4050, L501.2300, L100.0100, L501.5200 ####[facility] [address] [place], [address] Sodium [Moles/Vol] 128 mmol/L Low 133-145 [facility] Comment on above: Performed By: #### L 500.4050, L501.2300, L100.0100, L501.5200 ####[facility] [address] [place], [address] T PROT 5.5 g/dL Low 5.9-8.4 [facility] Comment on above: Performed By: #### L 500.4050, L501.2300, L100.0100, L501.5200 ####[facility] [address] [place], [address] Urea nitrogen [Mass/Vol] 13 mg/dL Normal 4-19 [facility] Comment on above: Performed By: #### L 500.4050, L501.2300, L100.0100, L501.5200 ####[facility] [address] [place], [address] Eosinophil percentageOrdered By: Justina Perea on 03-07-2025 Eosinophils/100 WBC (Bld) 4.4 % 0-5 [facility] Immature granulocytes/100 WB C Auto (Bld)Ordered By: Justina Perea on 03-07-2025 Immature granulocytes/100 WBC (Bld) 0.400 % 0.0-0.9 [facility] Comment on above: IG% - Immature Granu locytes (promyelocytes, myelocytes and metamyelocytes) > 1% indicates that a LEFT SHIFT is Present. Laboratory - Chemistry and C hemistry - challengeOrdered By: Justina Perea on 03-07-2025 AST [Catalytic activity/Vol] 20 U/L <32 [facility] Magnesiumon 03-07-2025 Magnesium [Mass/Vol] 1.9 mg/dL Normal 1.5-2.2 [facility] Comment on above: Performed By: #### L 500.4050, L501.2300, L100.0100, L501.5200 ####[facility] [id number] [place], [address] Magnesium measurement (mass/ volume)Ordered By: Justina Perea on 03-07-2025 Magnesium (Unsp spec) [Mass/Vol] 1.9 mg/dL 1.5-2.2 [place] [facility] [facility] Monocyte percentageOrdered B y: Justina Perea on 03-07-2025 Monocytes/100 WBC (Bld) 6.2 % 0-10 [facility] Neutrophil percentageOrdered By: Justina Perea on 03-07-2025 Neutrophils/100 WBC (Bld) 72.9 % High 47-70 [facility] Nucleated red blood cell per centageOrdered By: Justina Perea on 03-07-2025 Nucleated RBC/100 WBC (Bld) [Ratio] 0 % 0-5 [facility] Phosphoruson 03-07-2025 Phosphate [Mass/Vol] 2.8 mg/dL Normal 2.7-4.5 [facility] Comment on above: Performed By: #### L 500.4050, L501.2300, L100.0100, L501.5200 ####[facility] [address] [place], [place], [id number] Serum globulin measurementOr dered By: Justina Perea on 03-07-2025 Globulin (S) [Mass/Vol] 2.3 g/dL 2.2-4.2 [facility] Serum or plasma alanine valdez otransferase (ALT) measurementOrdered By: Justina Perea on 03-07-2025 ALT [Catalytic activity/Vol] 18 U/L <35 [facility] Serum or plasma albumin alexander urement (mass/volume)Ordered By: Justina Perea on 03-07-2025 Albumin [Mass/Vol] 3.2 g/dL Low 3.4-4.8 [facility] Serum or plasma albumin/glob ulin mass ratioOrdered By: Justina Perea on 03-07-2025 Albumin/Globulin [Mass ratio] 1.4 {ratio} 0.9-2.4 [facility] Serum or plasma alkaline maxine sphatase measurementOrdered By: Justina Perea on 03-07-2025 ALP [Catalytic activity/Vol] 53 U/L 35-104 [facility] Total proteinOrdered By: Zeinab Perea on 03-07-2025 Protein [Mass/Vol] 5.5 g/dL Low 5.9-8.4 [facility] Bedside Glucoseon 03-06-2025 FINGERSTICK GLU 175 mg/dL High 74-106 [facility] Comment on above: Result Comment: MALLORY WINN OF PATIENT CARE PER NURSING PROTOCOL Performed By: #### L 501.080 ####[facility] [address] [place], [place], [address] Glucose measurement at [facility] deOrdered By: Justina Perea on 03-06-2025 Glucose [Mass/Vol] 175 mg/dL High 74-106 [facility] Comment on above: MANAGEMENT OF PATIEN T CARE PER NURSING PROTOCOL Emergency Department Summary on 03-05-2025 Emergency Department Summary Normal [facility] HIP, UNI W/ Pelvis 2-3 Views on 03-05-2025 HIP, UNI W/ Pelvis 2-3 Views Normal [facility] Hip Min 2 Views (Portable)on 03-05-2025 Hip Min 2 Views (Portable) [facility] Hip Min 2 Views (Portable) [facility] Knee 1 or 2 Viewson 03-05-20 Knee 1 or 2 Views [facility] Body Fluid Culton 02-25-2025 BFC UNK UNK No growth in 5 days. [facility] Comment on above: Performed By: #### M 100.2000, M300.2000, L200.0400, M300.3000, M600.2000, M100.2900, M100.4001, L200.4175 ####[facility] [address] [place], [place], [id number] Culture, Anaerobic Any Sourc alona 02-25-2025 CUAN UNK UNK No growth in 5 days. [facility] Comment on above: Performed By: #### M 100.2000, M300.2000, L200.0400, M300.3000, M600.2000, M100.2900, M100.4001, L200.4175 ####[facility] [address] [place], [place], [address] Synovial Fluid RBC, WBC AND Diffon 02-21-2025 PATH COM/SYFL Reviewed [facility] Comment on above: Order Comment: LEFT SHOULDER Result Comment: BLOO DY FLUID.NEGATIVE FOR CRYSTALS.Tabitha Beckman MD 02/21/2025 AMENDED REPORT 02/21/25 1116 PATH COM/SYFL previously reported as: May follow Performed By: #### M 100.2000, M300.2000, L200.0400, M300.3000, M600.2000, M100.2900, M100.4001, L200.4175 ####[facility] [address] [place], [address] 36on 02-20-2025 36 Pt is having more ur inary frequency with cyst. Pt would like to have cyst and both ovaries removed. March 20 pt has shoulder injection with going under anesthesia. Pt states April would be fine to schedule. Normal [facility] 36 Pt returned phone ca ll. Please call back when you can. Thank you [facility] 36 Called pt and left vm. Normal [facility] 36 Pt would like to dis cuss removal of cyst and ovary per her last appt conversation with Dr Garcia. Pt concerned about cyst. Please call to discuss. Thank you [facility] Absolute lymphocyte countOrd ered By: Rosaura Peck on 02-20-2025 Lymphocytes Auto (Unsp spec) [#/Vol] 1.34 10*3/uL 0.83-4.51 [facility] Absolute neutrophil countOrd ered By: Rosaura Peck on 02-20-2025 Neutrophils (Bld) [#/Vol] 3.7 10*3/uL 2.0-7.7 [facility] Amorphous sediment detection in urine sediment by light microscopyOrdered By: Rosaura Peck on 02-20-2025 Amorphous sediment LM Ql (Urine sed) 3+ [facility] Anion gap in Serum or Plasma Ordered By: Rosaura Peck on 02-20-2025 Anion gap [Moles/Vol] 11 mmol/L 5-15 [facility] Automated lymphocyte count a s percentage of total leukocytesOrdered By: Rosaura Peck on 02-20-2025 Lymphocytes/100 WBC Auto (Unsp spec) 23.4 % 19-41 [facility] BUN/creatinine ratioOrdered By: Rosaura Peck on 02-20-2025 Urea nitrogen/Creatinine [Mass ratio] 28.8 mg/mg High 10-20 [facility] Basophil percentageOrdered B y: Rosaura Peck on 02-20-2025 Basophils/100 WBC (Bld) 0.9 % 0-1 [facility] Bilirubin Test strip Ql (U)O rdered By: Rosaura Peck on 02-20-2025 Bilirubin Ql (U) Negative Negative [facility] Bilirubin, totalOrdered By: Rosaura Peck on 02-20-2025 Bilirubin [Mass/Vol] 0.18 mg/dL 0.00-1.30 [facility] CBC W/Diff, Automatedon 02-03 Absolute Lymph 1.34 X10 3/uL Normal 0.83-4.51 [facility] Comment on above: Order Comment: Order Date: 02/20/25Order Info: 018- - CBCD Performed By: #### L 500.4050, L100.0100, L501.5200, L501.9520 ####[facility] [address] [place], [address] Absolute Neut 3.7 X10 3/uL Normal 2.0-7.7 [facility] Comment on above: Order Comment: Order Date: 02/20/25Order Info: 018-1 - CBCD Performed By: #### L 500.4050, L100.0100, L501.5200, L501.9520 ####[facility] [address] [place], [address] Basophils/100 WBC (Bld) 0.9 % Normal 0-1 [facility] Comment on above: Order Comment: Order Date: 02/20/25Order Info: 0184-1 - CBCD Performed By: #### L 500.4050, L100.0100, L501.5200, L501.9520 ####[facility] [address] [place], [address] Eosinophils/100 WBC (Bld) 1.7 % Normal 0-5 [facility] Comment on above: Order Comment: Order Date: 02/20/25Order Info: 0184-1 - CBCD Performed By: #### L 500.4050, L100.0100, L501.5200, L501.9520 ####[facility] [address] [place], [address] Erythrocyte distribution width (RBC) [Ratio] 14.6 % Normal 11.6-14.6 [facility] Comment on above: Order Comment: Order Date: 02/20/25Order Info: 0184-1 - CBCD Performed By: #### L 500.4050, L100.0100, L501.5200, L501.9520 ####[facility] [address] [place], [address] Hematocrit (Bld) [Volume fraction] 31.2 % Low 37-47 [facility] Comment on above: Order Comment: Order Date: 02/20/25Order Info: 018- - CBCD Performed By: #### L 500.4050, L100.0100, L501.5200, L501.9520 ####[facility] [address] [place], [address] Hemoglobin (Bld) [Mass/Vol] 10.5 g/dL Low 12.0-15.0 [facility] Comment on above: Order Comment: Order Date: 02/20/25Order Info: 0184- - CBCD Performed By: #### L 500.4050, L100.0100, L501.5200, L501.9520 ####[facility] [address] [place], [address] IG% 0.300 Normal 0.0-0.9 [facility] Comment on above: Order Comment: Order Date: 02/20/25Order Info: 0184-1 - CBCD Result Comment: IG% - Immature Granulocytes (promyelocytes, myelocytes andmetamyelocytes) > 1% indicates that a LEFT SHIFT is Present. Performed By: #### L 500.4050, L100.0100, L501.5200, L501.9520 ####[facility] [address] [place], [address] Lymphocytes/100 WBC (Bld) 23.4 % Normal 19-41 [facility] Comment on above: Order Comment: Order Date: 02/20/25Order Info: 0184-1 - CBCD Performed By: #### L 500.4050, L100.0100, L501.5200, L501.9520 ####[facility] [address] [place], [address] MCH (RBC) [Entitic mass] 32.0 pg Normal 27.0-32.0 [facility] Comment on above: Order Comment: Order Date: 02/20/25Order Info: 0184-1 - CBCD Performed By: #### L 500.4050, L100.0100, L501.5200, L501.9520 ####[facility] [address] [place], [address] MCHC (RBC) [Mass/Vol] 33.7 g/dL Normal 32-36 [facility] Comment on above: Order Comment: Order Date: 02/20/25Order Info: 018-1 - CBCD Performed By: #### L 500.4050, L100.0100, L501.5200, L501.9520 ####[facility] [address] [place], [address] MCV (RBC) [Entitic vol] 95.1 fL Normal 81-99 [facility] Comment on above: Order Comment: Order Date: 02/20/25Order Info: 0184-1 - CBCD Performed By: #### L 500.4050, L100.0100, L501.5200, L501.9520 ####[facility] [address] [place], [address] Monocytes/100 WBC (Bld) 9.4 % Normal 0-10 [facility] Comment on above: Order Comment: Order Date: 02/20/25Order Info: 0184-1 - CBCD Performed By: #### L 500.4050, L100.0100, L501.5200, L501.9520 ####[facility] [address] [place], [address] Neutrophils/100 WBC (Bld) 64.3 % Normal 47-70 [facility] Comment on above: Order Comment: Order Date: 02/20/25Order Info: 0184-1 - CBCD Performed By: #### L 500.4050, L100.0100, L501.5200, L501.9520 ####[facility] [address] [place], [address] Nucleated RBC (Bld) [#/Vol] 0 10*3/uL Normal 0-5 [facility] Comment on above: Order Comment: Order Date: 02/20/25Order Info: 018- - CBCD Performed By: #### L 500.4050, L100.0100, L501.5200, L501.9520 ####[facility] [address] [place], [address] Platelet mean volume (Bld) [Entitic vol] 9.5 fL Normal 6.2-12.0 [facility] Comment on above: Order Comment: Order Date: 02/20/25Order Info: 018- - CBCD Performed By: #### L 500.4050, L100.0100, L501.5200, L501.9520 ####[facility] [address] [place], [address] Platelets (Bld) [#/Vol] 364 10*3/uL Normal 150-450 [facility] Comment on above: Order Comment: Order Date: 02/20/25Order Info: 0184-1 - CBCD Performed By: #### L 500.4050, L100.0100, L501.5200, L501.9520 ####[facility] [address] [place], [address] RBC (Bld) [#/Vol] 3.28 10*6/uL Low 4.2-5.4 [facility] Comment on above: Order Comment: Order Date: 02/20/25Order Info: 0184-1 - CBCD Performed By: #### L 500.4050, L100.0100, L501.5200, L501.9520 ####[facility] [address] [place], [address] RDW SD 51.0 fl High 35.1-43.9 [facility] Comment on above: Order Comment: Order Date: 02/20/25Order Info: 0184- - CBCD Performed By: #### L 500.4050, L100.0100, L501.5200, L501.9520 ####[facility] [address] [place], [address] WBC (Bld) [#/Vol] 5.7 10*3/uL Normal 4.4-11.0 [facility] Comment on above: Order Comment: Order Date: 02/20/25Order Info: 0184- - CBCD Performed By: #### L 500.4050, L100.0100, L501.5200, L501.9520 ####[facility] [address] [place], [address] Carbon dioxide, total [Moles /volume] in Central venous bloodOrdered By: Rosaura Peck on 02-20-2025 CO2 [Moles/Vol] 25.6 mmol/L 21.0-32.0 [facility] Chloride assayOrdered By: Antonieta Peck on 02-20-2025 Chloride [Moles/Vol] 92 mmol/L Low 98-108 [facility] Comprehensive Metabolic Prof ilon 02-20-2025 Albumin [Mass/Vol] 3.9 g/dL Normal 3.4-4.8 [facility] Comment on above: Order Comment: Order Date: 02/20/25Order Info: 0786-1 - CMPOrder Info: 11068-1 - MGOrder Info: 3015- - TSHOrder Date: 10/04/24Order Info: 2498-4 - FEOrder Info: 2276-4 - SANDRA Performed By: #### L 500.4050, L100.0100, L501.5200, L501.9520 ####[facility] [address] [place], [address] Albumin/Globulin [Mass ratio] 1.8 {ratio} Normal 0.9-2.4 [facility] Comment on above: Order Comment: Order Date: 02/20/25Order Info: 86-1 - CMPOrder Info: [id number] - MGOrder Info: 3015-11 - TSHOrder Date: 10/04/24Order Info: 2498-4 - FEOrder Info: 2275-4 - SANDRA Performed By: #### L 500.4050, L100.0100, L501.5200, L501.9520 ####[facility] [address] [place], [address] ALK PHOS 58 U/L Normal 35-104 [facility] Comment on above: Order Comment: Order Date: 02/20/25Order Info: 86-1 - CMPOrder Info: 17934-0 - MGOrder Info: 3015-11 - TSHOrder Date: 10/04/24Order Info: 2498-4 - FEOrder Info: 2275-4 - SANDRA Performed By: #### L 500.4050, L100.0100, L501.5200, L501.9520 ####[facility] [address] [place], [address] ALT [Catalytic activity/Vol] 18 U/L Normal <=34 [facility] Comment on above: Order Comment: Order Date: 02/20/25Order Info: 0786-1 - CMPOrder Info: [id number] - MGOrder Info: 3015-11 - TSHOrder Date: 10/04/24Order Info: 2498-4 - FEOrder Info: 2276-4 - SANDRA Performed By: #### L 500.4050, L100.0100, L501.5200, L501.9520 ####[facility] [address] [place], [address] AST [Catalytic activity/Vol] 23 U/L Normal <=31 [facility] Comment on above: Order Comment: Order Date: 02/20/25Order Info: 0786-1 - CMPOrder Info: 22125-8 - MGOrder Info: 3016-3 - TSHOrder Date: 10/04/24Order Info: 2498-4 - FEOrder Info: 2276-4 - SANDRA Performed By: #### L 500.4050, L100.0100, L501.5200, L501.9520 ####[facility] [address] [place], [address] Bilirubin [Mass/Vol] 0.18 mg/dL Normal 0.00-1.30 [facility] Comment on above: Order Comment: Order Date: 02/20/25Order Info: 0786-1 - CMPOrder Info: [id number] - MGOrder Info: 3016-3 - TSHOrder Date: 10/04/24Order Info: 2498-4 - FEOrder Info: 2276-4 - SANDRA Performed By: #### L 500.4050, L100.0100, L501.5200, L501.9520 ####[facility] [address] [place], [address] BUN/CRE 28.8 RATIO High 10-20 [facility] Comment on above: Order Comment: Order Date: 02/20/25Order Info: 0786-1 - CMPOrder Info: 25757-2 - MGOrder Info: 3016-3 - TSHOrder Date: 10/04/24Order Info: 2498-4 - FEOrder Info: 2276-4 - SANDRA Performed By: #### L 500.4050, L100.0100, L501.5200, L501.9520 ####[facility] [address] [place], [address] Calcium [Mass/Vol] 9.1 mg/dL Normal 7.6-11.0 [facility] Comment on above: Order Comment: Order Date: 02/20/25Order Info: 0786-1 - CMPOrder Info: [id number] - MGOrder Info: 3015-3 - TSHOrder Date: 10/04/24Order Info: 2498-4 - FEOrder Info: 2276-4 - SANDRA Performed By: #### L 500.4050, L100.0100, L501.5200, L501.9520 ####[facility] [address] [place], [address] Chloride [Moles/Vol] 92 mmol/L Low 98-108 [facility] Comment on above: Order Comment: Order Date: 02/20/25Order Info: 0786-1 - CMPOrder Info: [id number] - MGOrder Info: 3015-3 - TSHOrder Date: 10/04/24Order Info: 2498-4 - FEOrder Info: 227-4 - SANDRA Performed By: #### L 500.4050, L100.0100, L501.5200, L501.9520 ####[facility] [address] [place], [address] CO2 [Moles/Vol] 25.6 mmol/L Normal 21.0-32.0 [facility] Comment on above: Order Comment: Order Date: 02/20/25Order Info: 86-1 - CMPOrder Info: [id number] - MGOrder Info: 3015-3 - TSHOrder Date: 10/04/24Order Info: 2498-4 - FEOrder Info: 2276-4 - SANDRA Performed By: #### L 500.4050, L100.0100, L501.5200, L501.9520 ####[facility] [address] [place], [address] Creatinine [Mass/Vol] 0.53 mg/dL Low 0.70-1.20 [facility] Comment on above: Order Comment: Order Date: 02/20/25Order Info: 0786-1 - CMPOrder Info: [id number] - MGOrder Info: 3016-3 - TSHOrder Date: 10/04/24Order Info: 2498-4 - FEOrder Info: 2276-4 - SANDRA Performed By: #### L 500.4050, L100.0100, L501.5200, L501.9520 ####[facility] [address] [place], [address] GAP 11 Normal 5-15 [facility] Comment on above: Order Comment: Order Date: 02/20/25Order Info: 0786-1 - CMPOrder Info: [id number] - MGOrder Info: 3 - TSHOrder Date: 10/04/24Order Info: 2498-4 - FEOrder Info: 2275-4 - SANDRA Performed By: #### L 500.4050, L100.0100, L501.5200, L501.9520 ####[facility] [address] [place], [address] GFR/1.73 sq M.predicted among non-blacks MDRD (S/P/Bld) [Vol rate/Area] 92 mL/min/{1.73_m2} Normal >60 [facility] Comment on above: Order Comment: Order Date: 02/20/25Order Info: 0786-1 - CMPOrder Info: [id number] - MGOrder Info: 3 - TSHOrder Date: 10/04/24Order Info: [id number] - FEOrder Info: 2275-4 - SANDRA Result Comment: mL/m in/1.73m2 CKD-EPI Creatinine Equation (2020) Performed By: #### L 500.4050, L100.0100, L501.5200, L501.9520 ####[facility] [address] [place], [address] Globulin (S) [Mass/Vol] 2.1 g/dL Low 2.2-4.2 [facility] Comment on above: Order Comment: Order Date: 02/20/25Order Info: 0786-1 - CMPOrder Info: [id number] - MGOrder Info: 3 - TSHOrder Date: 10/04/24Order Info: 2498-4 - FEOrder Info: 2275-4 - SANDRA Performed By: #### L 500.4050, L100.0100, L501.5200, L501.9520 ####[facility] [address] [place], [address] Glucose [Mass/Vol] 102 mg/dL High 70-99 [facility] Comment on above: Order Comment: Order Date: 02/20/25Order Info: 0786-1 - CMPOrder Info: [id number] - MGOrder Info: 3 - TSHOrder Date: 10/04/24Order Info: 2498-4 - FEOrder Info: 2275-4 - SANDRA Performed By: #### L 500.4050, L100.0100, L501.5200, L501.9520 ####[facility] [address] [place], [address] Potassium [Moles/Vol] 4.6 mmol/L Normal 3.3-5.1 [facility] Comment on above: Order Comment: Order Date: 02/20/25Order Info: 86-1 - CMPOrder Info: [id number] - MGOrder Info: 3 - TSHOrder Date: 10/04/24Order Info: 2498-4 - FEOrder Info: 2275-4 - SANDRA Performed By: #### L 500.4050, L100.0100, L501.5200, L501.9520 ####[facility] [address] [place], [address] Sodium [Moles/Vol] 128 mmol/L Low 133-145 [facility] Comment on above: Order Comment: Order Date: 02/20/25Order Info: 0786-1 - CMPOrder Info: [id number] - MGOrder Info: 3 - TSHOrder Date: 10/04/24Order Info: 2498-4 - FEOrder Info: 2276-4 - SANDRA Performed By: #### L 500.4050, L100.0100, L501.5200, L501.9520 ####[facility] [address] [place], [address] T PROT 6.1 g/dL Normal 5.9-8.4 [facility] Comment on above: Order Comment: Order Date: 02/20/25Order Info: 0786-1 - CMPOrder Info: [id number] - MGOrder Info: 3016-3 - TSHOrder Date: 10/04/24Order Info: 2498-4 - FEOrder Info: 6-4 - SANDAR Performed By: #### L 500.4050, L100.0100, L501.5200, L501.9520 ####[facility] [address] [place], [address] Urea nitrogen [Mass/Vol] 15 mg/dL Normal 4-19 [facility] Comment on above: Order Comment: Order Date: 02/20/25Order Info: 07-1 - CMPOrder Info: [id number] - MGOrder Info: 3016-3 - TSHOrder Date: 10/04/24Order Info: 2498-4 - FEOrder Info: 2276-4 - SANDRA Performed By: #### L 500.4050, L100.0100, L501.5200, L501.9520 ####[facility] [address] [place], [address] Crystals, Body Fluidon 02-20 CRYSTALS/BF NO CRYSTALS SEEN Normal [facility] Comment on above: Order Comment: LEFT SHOULDER Result Comment: CR YSTAL RESULT IS PRELIMINARY. SEE PATH REVIEW FOR FINAL REPORT. Performed By: #### M 100.2000, M300.2000, L200.0400, M300.3000, M600.2000, M100.2900, M100.4001, L200.4175 ####[facility] [address] [place], [address] Eosinophil percentageOrdered By: Rosaura Peck on 02-20-2025 Eosinophils/100 WBC (Bld) 1.7 % 0-5 [facility] Erythrocyte distribution wid th ratioOrdered By: Rosaura Peck on 02-20-2025 Erythrocyte distribution width (RBC) [Ratio] 14.6 % 11.6-14.6 [facility] Erythrocyte distribution wid th standard deviationOrdered By: Rosaura Peck on 02-20-2025 Erythrocyte distribution width (RBC) [Ratio] 51.0 fl High 35.1-43.9 [facility] Ferritinon 02-20-2025 Ferritin [Mass/Vol] 135 ng/mL Normal 22-378 [facility] Comment on above: Order Comment: Order Date: 02/20/25Order Info: 0786-1 - CMPOrder Info: [id number] - MGOrder Info: 3016-3 - TSHOrder Date: 10/04/24Order Info: 2498-4 - FEOrder Info: 2276-4 - SANDRA Performed By: #### L 503.6150, L503.6550 ####[facility] [address] [place], [place], [address] Glomerular filtration rate ( GFR) estimation/1.73 sq m using serum, plasma, or whole bOrdered By: Rosaura Peck on 02-20-2025 GFR/1.73 sq M.predicted among non-blacks MDRD (S/P/Bld) [Vol rate/Area] 92 mL/min/{1.73_m2} >60 [facility] Comment on above: mL/min/1.73m2 CKD-EP I Creatinine Equation (2020) Gram Stainon 02-20-2025 GS UNK UNK Centrifuged Specimen? Culture performed on centrifuged specimen Gram Stain Rare White Blood Cells No organisms seen Normal [facility] Comment on above: Performed By: #### M 100.2000, M300.2000, L200.0400, M300.3000, M600.2000, M100.2900, M100.4001, L200.4175 ####[facility] [address] [place], [place], [address] Hematocrit Auto (Bld) [Volum e fraction]Ordered By: Rosaura Peck on 02-20-2025 Hematocrit (Bld) [Volume fraction] 31.2 % Low 37-47 [facility] Hemoglobin measurementOrdere d By: Rosaura Peck on 02-20-2025 Hemoglobin (Bld) [Mass/Vol] 10.5 g/dL Low 12.0-15.0 [facility] Immature granulocytes/100 WB C Auto (Bld)Ordered By: Rosaura Peck on 02-20-2025 Immature granulocytes/100 WBC (Bld) 0.300 % 0.0-0.9 [facility] Comment on above: IG% - Immature Granu locytes (promyelocytes, myelocytes and metamyelocytes) > 1% indicates that a LEFT SHIFT is Present. Ironon 02-20-2025 Iron [Mass/Vol] 57 ug/dL Normal 50-170 [facility] Comment on above: Order Comment: Order Date: 02/20/25Order Info: 0786-1 - CMPOrder Info: [id number] - MGOrder Info: [id number] - TSHOrder Date: 10/04/24Order Info: 2498-4 - FEOrder Info: 2276-4 - SANDRA Performed By: #### L 503.6150, L503.6550 ####[facility] [address] [place], [place], [address] Iron measurement (mass/mass) Ordered By: Rosaura Peck on 02-20-2025 Iron (Unsp spec) [Mass/Mass] 57 ug/dL 50-170 [facility] Ketones Test strip Ql (U)Ord ered By: Rosaura Peck on 02-20-2025 Ketones Ql (U) Negative Negative [facility] Laboratory - Chemistry and C hemistry - challengeOrdered By: Rosaura Peck on 02-20-2025 AST [Catalytic activity/Vol] 23 U/L <32 [facility] MCV (mean corpuscular volume ) determinationOrdered By: Rosauar Peck on 02-20-2025 MCV (RBC) [Entitic vol] 95.1 fL 81-99 [facility] Magnesiumon 02-20-2025 Magnesium [Mass/Vol] 2.0 mg/dL Normal 1.5-2.2 [facility] Comment on above: Order Comment: Order Date: 02/20/25Order Info: [id number] - CMPOrder Info: [id number] - MGOrder Info: [id number] - TSHOrder Date: 10/04/24Order Info: [id number] - FEOrder Info: [id number] - SANDRA Performed By: #### L 500.4050, L100.0100, L501.5200, L501.9520 ####[facility] [address] [place], [address] Magnesium measurement (mass/ volume)Ordered By: Rosaura Peck on 02-20-2025 Magnesium (Unsp spec) [Mass/Vol] 2.0 mg/dL 1.5-2.2 [facility] Mean corpuscular hemoglobin (MCH) determinationOrdered By: Rosaura Peck on 02-20-2025 MCH (RBC) [Entitic mass] 32.0 pg 27.0-32.0 [facility] Mean corpuscular hemoglobin concentration (MCHC) determinationOrdered By: Rosaura Peck on 02-20-2025 MCHC (RBC) [Mass/Vol] 33.7 g/dL 32-36 [facility] Mean platelet volume determi nationOrdered By: Rosaura Peck on 02-20-2025 Platelet mean volume (Bld) [Entitic vol] 9.5 fL 6.2-12.0 [facility] Microscopic analysis of urin e for red blood cells (RBC)Ordered By: Rosaura Peck on 02-20-2025 Microscopic analysis of urine for red blood cells (RBC) 0 SEEN /hpf 0-5 [facility] Monocyte percentageOrdered B y: Rosaura Peck on 02-20-2025 Monocytes/100 WBC (Bld) 9.4 % 0-10 [facility] Mucus LM Ql (Urine sed)Order ed By: Rosaura Peck on 02-20-2025 Mucus Ql (Urine sed) 0 SEEN /hpf [facility] Neutrophil percentageOrdered By: Rosaura Peck on 02-20-2025 Neutrophils/100 WBC (Bld) 64.3 % 47-70 [facility] Nitrite Test strip Ql (U)Ord ered By: Rosaura Peck on 02-20-2025 Nitrite Ql (U) Negative Negative [facility] Nucleated red blood cell per centageOrdered By: Rosaura Peck on 02-20-2025 Nucleated RBC/100 WBC (Bld) [Ratio] 0 % 0-5 [facility] Platelet countOrdered By: Antonieta Peck on 02-20-2025 Platelets (Bld) [#/Vol] 364 10*3/uL 150-450 [facility] Potassium measurement (mass/ volume)Ordered By: Rosaura Peck on 02-20-2025 Potassium (Unsp spec) [Mass/Vol] 4.6 mmol/L 3.3-5.1 [facility] Protein Test strip Ql (U)Ord ered By: Rosaura Peck on 02-20-2025 Protein Ql (U) 15 mg/dl High Negative [facility] RBC Auto (Bld) [#/Vol]Ordere d By: Rosaura Peck on 02-20-2025 RBC (Bld) [#/Vol] 3.28 10*6/uL Low 4.2-5.4 [facility] Serum creatinine measurement (mass/volume)Ordered By: Rosaura Peck on 02-20-2025 Creatinine [Mass/Vol] 0.53 mg/dL Low 0.70-1.20 [facility] Serum globulin measurementOr dered By: Rosaura Peck on 02-20-2025 Globulin (S) [Mass/Vol] 2.1 g/dL Low 2.2-4.2 [facility] Serum glucose measurement (m ass/volume)Ordered By: Rosaura Peck on 02-20-2025 Glucose [Mass/Vol] 102 mg/dL High 70-99 [facility] Serum or plasma alanine valdez otransferase (ALT) measurementOrdered By: Rosaura Peck on 02-20-2025 ALT [Catalytic activity/Vol] 18 U/L <35 [facility] Serum or plasma albumin alexander urement (mass/volume)Ordered By: Rosaura Peck on 02-20-2025 Albumin [Mass/Vol] 3.9 g/dL 3.4-4.8 [facility] Serum or plasma albumin/glob ulin mass ratioOrdered By: Rosaura Peck on 02-20-2025 Albumin/Globulin [Mass ratio] 1.8 {ratio} 0.9-2.4 [facility] Serum or plasma alkaline maxine sphatase measurementOrdered By: Rosaura Peck on 02-20-2025 ALP [Catalytic activity/Vol] 58 U/L 35-104 [facility] Serum or plasma calcium alexander urement (mass/volume)Ordered By: Rosaura Peck on 02-20-2025 Calcium [Mass/Vol] 9.1 mg/dL 7.6-11.0 [facility] Serum or plasma ferritin tariq surement (mass/volume)Ordered By: Rosaura Peck on 02-20-2025 Ferritin [Mass/Vol] 135 ng/mL 22-378 [facility] Serum or plasma urea nitroge n measurement (mass/volume)Ordered By: Rosaura Peck on 02-20-2025 Urea nitrogen [Mass/Vol] 15 mg/dL 4-19 [facility] Sodium levelOrdered By: Rosaura Peck on 02-20-2025 Sodium [Moles/Vol] 128 mmol/L Low 133-145 [facility] Squamous epithelial cells de tection in urine sediment by light microscopyOrdered By: Rosaura Peck on 02-20-2025 Epithelial cells.squamous LM Ql (Urine sed) 0 SEEN /hpf 5-10 [facility] TSH DL <= 0.005 mIU/L QnOrde red By: Rosaura Peck on 02-20-2025 TSH Qn 1.540 uIU/mL 0.300-4.20 0 [facility] Thyroid Stim Hormone (TSH)on 02-20-2025 TSH 1.540 uIU/mL Normal 0.300-4.20 0 [facility] Comment on above: Order Comment: Order Date: 02/20/25Order Info: [id number] - CMPOrder Info: [id number] - MGOrder Info: [id number] - TSHOrder Date: 10/04/24Order Info: [id number] - FEOrder Info: [id number] - SANDRA Performed By: #### L 500.4050, L100.0100, L501.5200, L501.9520 ####[facility] [address] [place], [place], [id number] Total proteinOrdered By: Connor Peck on 02-20-2025 Protein [Mass/Vol] 6.1 g/dL 5.9-8.4 [facility] Urinalysis, Completeon 02-20 AMORPHOUS 3+ Normal [facility] Comment on above: Order Comment: [facility] W/MICROUrine, Random Performed By: #### L 400.0001 ####[facility] [address] [place], [address] BACTERIA 2+ /hpf Normal None Seen [facility] Comment on above: Order Comment: PER I [facility] ORDER-UA W/MICROUrine, Random Performed By: #### L 400.0001 ####[facility] [address] [place], [address] EPI,SQUAMOUS 0 SEEN Normal 5-10 [facility] Comment on above: Order Comment: PER I [facility] ORDER-UA W/MICROUrine, Random Performed By: #### L 400.0001 ####[facility] [address] [place], [address] Mucus Ql (Urine sed) 0 SEEN Normal [facility] Comment on above: Order Comment: PER I [facility] ORDER-UA W/MICROUrine, Random Performed By: #### L 400.0001 ####[facility] [address] [place], [address] RBC 0 SEEN Normal 0-5 [facility] Comment on above: Order Comment: [facility] ORDER-UA W/MICROUrine, Random Performed By: #### L 400.0001 ####[facility] [address] [place], [address] WBC 0 SEEN Normal 0-5 [facility] Comment on above: Order Comment: PER I [facility] ORDER-UA W/MICROUrine, Random Performed By: #### L 400.0001 ####[facility] [address] [place], [address] Urine clarityOrdered By: Connor Peck on 02-20-2025 Clarity (U) Sl. Cloudy Clear [facility] Urine color determinationOrd ered By: Rosaura Peck on 02-20-2025 Color (U) Yellow Yellow [facility] Urine glucose detectionOrder ed By: Rosaura Peck on 02-20-2025 Glucose Ql (U) Normal mg/dl Normal [facility] Urine leukocyte esterase det ection by dipstickOrdered By: Rosaura Peck on 02-20-2025 Leukocyte esterase Test strip Ql (U) Negative Negative [facility] Urine pHOrdered By: Rosaura loco on 02-20-2025 pH (U) 8.0 [pH] 5.0 - 8.0 [facility] Urine sediment bacteria coun t by microscopy (number/high power field)Ordered By: Rosaura Peck on 02-20-2025 Bacteria LM.HPF (Urine sed) [#/Area] 2 /[HPF] None Seen [facility] Urine specific gravity measu rementOrdered By: Rosaura Peck on 02-20-2025 Specific gravity (U) [Rel density] 1.015 1.002-1.03 0 [facility] Urine urobilinogen measureme ntOrdered By: Rosaura Peck on 02-20-2025 Urobilinogen Ql (U) Normal mg/dl Normal [facility] Vitamin B12on 02-20-2025 Cobalamin (Vitamin B12) [Mass/Vol] 767 pg/mL Normal 180-914 [facility] Comment on above: Order Comment: Order Date: 02/20/25Order Info: [id number] - CMPOrder Info: [id number] - MGOrder Info: [id number] - TSHOrder Date: 10/04/24Order Info: [id number] - FEOrder Info: [id number] - SANDRA Performed By: #### L 503.0106, L506.1001 ####[facility] [address] [place], [address] Vitamin B12 ser/plasOrdered By: Rosaura Peck on 02-20-2025 Cobalamin (Vitamin B12) [Mass/Vol] 767 pg/mL 180-914 [facility] Vitamin D,25 Hydroxyon 02-20 Vitamin D 25-OH 33.0 ng/mL Normal 30-100 [facility] Comment on above: Order Comment: Order Date: 02/20/25Order Info: [id number] - CMPOrder Info: [id number] - MGOrder Info: [id number] - TSHOrder Date: 10/04/24Order Info: [id number] - FEOrder Info: [id number] - SANDRA Result Comment: Kerry min D StatusDeficiency: <20 ng/mL (50nmol/L)Insufficiency: 20-30 ng/mL (50-75 nmol/L)Sufficiency: 30-100 ng/mL (75-250 nmol/L)Toxicity: >100 ng/mL (>250 nmol/L) Performed By: #### L 503.0106, L506.1001 ####[facility] [address] [place], [address] White blood cell (WBC) count Ordered By: Rosaura Peck on 02-20-2025 WBC (Bld) [#/Vol] 5.7 10*3/uL 4.4-11.0 [facility] White blood cell countOrdere d By: Rosaura Peck on 02-20-2025 White blood cell count 0 SEEN /hpf 0-5 [facility] Acid fast bacillus (AFB) cul tureOrdered By: Roma Johnson on 02-19-2025 Mycobacterium sp identified Org specific cx Nom (Unsp spec) [facility] Anaerobic cultureOrdered By: Roma Johnson on 02-19-2025 Bacteria identified Anaer cx Nom (Unsp spec) No growth in 5 days. [facility] Automated synovial fluid koby kocytes count (number/volume)Ordered By: Roma Johnson on 02-19-2025 WBC Auto (Syn fld) [#/Vol] 1.5160 10^3/uL High 0.000-0.00 2 [facility] Automated synovial fluid mon onuclear cell count (number/volume)Ordered By: Roma Johnson on 02-19-2025 Mononuclear cells Auto (Syn fld) [#/Vol] 0.648 10^3/ul [facility] Automated synovial fluid donnie ymorphonuclear cell count (number/volume)Ordered By: Roma Johnson on 02-19-2025 Polymorphonuclear cells Auto (Syn fld) [#/Vol] 0.868 10^3/uL [facility] Automated synovial fluid donnie ymorphonuclear cells as percentage of leukocytesOrdered By: Roma Johnson on 02-19-2025 Polymorphonuclear cells/100 WBC Auto (Syn fld) 57.2 % [facility] Blood lymphocytes/100 leukoc ytesOrdered By: Roma Johnson on 02-19-2025 Lymphocytes/100 WBC (Bld) 5 % [facility] Body fluid crystal identific ation by light microscopyOrdered By: Roma Johnson on 02-19-2025 Crystals LM Nom (Body fld) NO CRYSTALS SEEN [facility] Comment on above: CRYSTAL RESULT IS PRELIMINARY. SEE PATH REVIEW FOR FINAL REPORT. Determination of appearance of synovial fluid (nominal result)Ordered By: Roma Johnson on 02-19-2025 Appearance (Syn fld) Turbid CLEAR [facility] Fungus cultureOrdered By: Kenroy Johnson on 02-19-2025 Fungus identified Cx Nom (Unsp spec) [facility] Gram stainOrdered By: Roma Johnson on 02-19-2025 Microscopic observation Gram stain Nom (Unsp spec) [facility] Pathologist review of result s (narrative result)Ordered By: Roma Johnson on 02-19-2025 Pathologist review Oscar (Unsp spec) [Interp] Reviewed [facility] Comment on above: Previous reported re sult: May follow Edited by: FABRICE on 02/21/25:1116BLOODY FLUID.NEGATIVE FOR CRYSTALS.Tabitha Beckman MD 02/21/2025 AMENDED REPORT 02/21/25 1116 PATH COM/SYFL previously reported as: May follow Specimen source identificati on of body fluidOrdered By: Roma Johnson on 02-19-2025 Specimen source Nom (Body fld) SYNOVIAL [facility] Specimen source Nom (Body fld) LEFT SHOULDER [facility] Synovial fluid color determi nation (nominal result)Ordered By: Roma Johnson on 02-19-2025 Color (Syn fld) Red Pale Yellow [facility] Synovial fluid erythrocytes count (number/volume)Ordered By: Roma Johnson on 02-19-2025 RBC (Syn fld) [#/Vol] 0.212 10^6/uL High 0-0 [facility] Synovial fluid monocyte perc entageOrdered By: Roma Johnson on 02-19-2025 Monocytes/100 WBC (Syn fld) 31 % [facility] Synovial fluid mononuclear c ells/100 leukocytesOrdered By: Roma Johnson on 02-19-2025 Mononuclear cells/100 WBC (Syn fld) 42.8 % [facility] Synovial fluid neutrophil pe rcentageOrdered By: Roma Johnson on 02-19-2025 Neutrophils/100 WBC (Syn fld) 64 % High 0-25 [facility] Synovial fluid total cell co untOrdered By: Roma Johnson on 02-19-2025 Cells Counted Total (Syn fld) [#] 1.5500 10^3/uL High 0.000-0.00 0 [facility] Comment on above: This is the Total Nu mber of Nucleated Cell Types in the Body Fluid. Urgent Care Visit Reporton 0 02-05-2025 Urgent Care Visit Report Normal [facility] Gastroenterology Visit Repor ton 01-09-2025 Gastroenterology Visit Report Normal [facility] 36on 12-25-2024 36 Patient would like callback to schedule U/S, please contact when able, thank you Normal [facility] Progress Noteon 12-17-2024 Progress Note We want to inform yo u that your patient's blood pressure was noted to be elevated in our office today. We thank you for trusting us with your patient's health. Last BP: BP Readings from Last 3 Encounters: 12/17/24 (!) 140/86 09/07/24 (!) 152/78 Normal [facility] Progress Note CC: Enlarging pelvic mass HPI: May Leonard is a pleasant 83 y.o. female who presents in consultation from Dr. Newsome for further evaluation and management of persistent left adnexal mass along with abdominal pain and an enhancing liver lesion in the right lobe which has increased slightly in size. She initiallypresented with an episode of colitis and underwent a CT scan that showed a left adnexal mass. She is undergone several imaging studies since April which does show a 7 to 8 cm benign-appearing left adnexal mass. A liver lesion was also noted but the patient states a recent MRI was done and she was told by her guardian family member that the liver lesion is benign. Patient states the left pelvic mass causes no symptoms, denies any pelvic pressure or pain problems with bowel or bladder habits. Denies any vaginal bleeding. He is here today to discuss options for a incidentally found cystic left ovarian mass. History; Patient underwent repeat ultrasound at [facility] which unfortunately shows growth in the size of the lesion. 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 She denies any signs or symptoms of this mass, denies any vaginal bleeding pelvic pain abdominal pain or discomfort. Past Medical History: Diagnosis Date Anxiety Arthritis Back pain Constipation Hypertension Hyponatremia Leg cramps Lower gastrointestinal bleed Migraine Past Surgical History: Procedure Laterality Date CATARACT EXTRACTION Bilateral COLONOSCOPY REVISE TOTAL HIP REPLACEMENT (HISTORICAL) TOTAL SHOULDER ARTHROPLASTY Social History Socioeconomic History Marital status: Unknown Tobacco Use Smoking status: Former Types: Cigarettes Smokeless tobacco: Never Substance and Sexual Activity Alcohol use: Yes Comment: social Drug use: Never Social Drivers of Health Food Insecurity: No Food Insecurity (02/21/2024) Received from [facility] Hunger Vital Sign Worried About Running Out of Food in the Last Year: Never true Ran Out of Food in the Last Year: Never true Transportation Needs: No Transportation Needs (02/21/2024) Received from [facility] PRAPARE - Transportation Lack of Transportation (Medical): No Lack of Transportation (Non-Medical): No Housing Stability: Unknown (02/21/2024) Received from [facility] Housing Stability Vital Sign Unable to Pay for Housing in the Last Year: No Unstable Housing in the Last Year: No Current Outpatient Medications Medication Sig Dispense Refill acetaminophen (Tylenol) 500 MG tablet Take 1 tablet by mouth daily. calcium carbonate 260 MG chewable tablet Chew daily. celecoxib (CeleBREX) 200 MG capsule Take 1 capsule every day by oral route. dicyclomine (Bentyl) 10 MG capsule Take 10 mg by mouth 4 times daily. Docusate Sodium (DSS) 100 MG capsule Take 100 mg by mouth every 12 hours as needed. lisinopril 20 MG tablet Take 1 tablet by mouth daily. mesalamine (Lialda) 1.2 g EC tablet Take 1,200 mg by mouth daily (with breakfast). Do not crush, chew, or split. oxyCODONE (Oxy-IR) 5 MG immediate release capsule Take 5 mg by mouth. pantoprazole (ProtoNix) 40 MG injection Infuse 40 mg into a venous catheter. polyethylene glycol, PEG, 3350 (Miralax) 17 g packet Take 17 g by mouth daily. primidone (Mysoline) 50 MG tablet Take by mouth. sennosides (Senokot) 8.6 MG tablet Take 2 tablets by mouth daily at bedtime. No current facility-administered medications for this visit. Review of Systems Gastrointestinal: Negative for abdominal distention and abdominal pain. Genitourinary: Negative for pelvic pain and vaginal bleeding. Naproxen and Prednisone There were no vitals taken for this visit. Physical Exam Vitals and nursing note reviewed. Constitutional: Comments: Frail-appearing lady with a walker Neurological: Mental Status: She is alert. Psychiatric: Mood and Affect: Mood normal. Behavior: Behavior normal. I have personally reviewed the CT scan which shows a very benign appearing cystic lesion Assessment: Benign-appearing growth of the ovary, very minimal growth since June. Plan: Discussed surgical resection versus close observation. After discussing the pros and cons of both approaches due to the very benign appearing nature of the growth the very slow growth phase and the patient's multiple medical comorbidities recommended close observation. Will plan on a repeat ultrasound in 3 months. The patient is in agreement. Total time spent in review of radiology reports review of radiology imaging [id number] counseling with patient and coordination of repeat ultrasound was 25 minutes [facility] PT D/C Summary (1)on 025 PT D/C Summary (1) Normal [facility] 36on 12-11-2024 36 Called the result of ultrasound, she would like to have the mass removed. Will set up an appointment in the office [facility] 36 Patient called back. Whenever you get a chance, can you please call her back. Thank you! Normal [facility] 36 lvmtcob Normal [facility] Pelvic (Non )on Pelvic (Non ) Normal [facility] Absolute lymphocyte countOrd ered By: Rosaura Peck on 11-21-2024 Lymphocytes Auto (Unsp spec) [#/Vol] 2.02 10*3/uL 0.83-4.51 [facility] Absolute neutrophil countOrd ered By: Rosaura Peck on 11-21-2024 Neutrophils (Bld) [#/Vol] 3.8 10*3/uL 2.0-7.7 [facility] Anion gap in Serum or Plasma Ordered By: Rosaura Peck on 11-21-2024 Anion gap [Moles/Vol] 10 mmol/L 5- [facility] Automated lymphocyte count a s percentage of total leukocytesOrdered By: Rosaura Peck on 11-21-2024 Lymphocytes/100 WBC Auto (Unsp spec) 31.2 % [facility] BUN/creatinine ratioOrdered By: Rosaura Peck on 11-21-2024 Urea nitrogen/Creatinine [Mass ratio] 37.5 mg/mg High - [facility] Basophil percentageOrdered B y: Rosaura Peck on 11-21-2024 Basophils/100 WBC (Bld) 0.6 % 0- [facility] Bilirubin, totalOrdered By: Rosaura Peck on 11-21-2024 Bilirubin [Mass/Vol] 0.22 mg/dL 0.00-1.30 [facility] CBC W/Diff, Automatedon 11-03 Absolute Lymph 2.02 X10 3/uL Normal 0.83-4.51 [facility] Comment on above: Order Comment: Order Date: 11/21/24Order Info: [id number]- - CBCD Performed By: #### L 500.4050, L100.0100 ####[facility] [address] [place], [address] Absolute Neut 3.8 X10 3/uL Normal 2.0-7.7 [facility] Comment on above: Order Comment: Order Date: 11/21/24Order Info: [id number] - CBCD Performed By: #### L 500.4050, L100.0100 ####[facility] [address] [place], [address] Basophils/100 WBC (Bld) 0.6 % Normal 0-1 [facility] Comment on above: Order Comment: Order Date: 11/21/24Order Info: [id number] - CBCD Performed By: #### L 500.4050, L100.0100 ####[facility] [address] [place], [address] Eosinophils/100 WBC (Bld) 2.0 % Normal 0-5 [facility] Comment on above: Order Comment: Order Date: 11/21/24Order Info: [id number] - CBCD Performed By: #### L 500.4050, L100.0100 ####[facility] [address] [place], [address] Erythrocyte distribution width (RBC) [Ratio] 13.7 % Normal 11.6-14.6 [facility] Comment on above: Order Comment: Order Date: 11/21/24Order Info: 018- - CBCD Performed By: #### L 500.4050, L100.0100 ####[facility] [address] [place], [address] Hematocrit (Bld) [Volume fraction] 33.9 % Low 37-47 [facility] Comment on above: Order Comment: Order Date: 11/21/24Order Info: 018- - CBCD Performed By: #### L 500.4050, L100.0100 ####[facility] [address] [place], [address] Hemoglobin (Bld) [Mass/Vol] 11.2 g/dL Low 12.0-15.0 [facility] Comment on above: Order Comment: Order Date: 11/21/24Order Info: 018- - CBCD Performed By: #### L 500.4050, L100.0100 ####[facility] [address] [place], [address] IG% 0.200 Normal 0.0-0.9 [facility] Comment on above: Order Comment: Order Date: 11/21/24Order Info: [id number] - CBCD Result Comment: IG% - Immature Granulocytes (promyelocytes, myelocytes andmetamyelocytes) > 1% indicates that a LEFT SHIFT is Present. Performed By: #### L 500.4050, L100.0100 ####[facility] [address] [place], [address] Lymphocytes/100 WBC (Bld) 31.2 % Normal 19-41 [facility] Comment on above: Order Comment: Order Date: 11/21/24Order Info: 0184-1 - CBCD Performed By: #### L 500.4050, L100.0100 ####[facility] [address] [place], [address] MCH (RBC) [Entitic mass] 31.8 pg Normal 27.0-32.0 [facility] Comment on above: Order Comment: Order Date: 11/21/24Order Info: 0184-1 - CBCD Performed By: #### L 500.4050, L100.0100 ####[facility] [address] [place], [address] MCHC (RBC) [Mass/Vol] 33.0 g/dL Normal 32-36 [facility] Comment on above: Order Comment: Order Date: 11/21/24Order Info: 0184-1 - CBCD Performed By: #### L 500.4050, L100.0100 ####[facility] [address] [place], [address] MCV (RBC) [Entitic vol] 96.3 fL Normal 81-99 [facility] Comment on above: Order Comment: Order Date: 11/21/24Order Info: 0184-1 - CBCD Performed By: #### L 500.4050, L100.0100 ####[facility] [address] [place], [address] Monocytes/100 WBC (Bld) 6.8 % Normal 0-10 [facility] Comment on above: Order Comment: Order Date: 11/21/24Order Info: 0184-1 - CBCD Performed By: #### L 500.4050, L100.0100 ####[facility] [address] [place], [address] Neutrophils/100 WBC (Bld) 59.2 % Normal 47-70 [facility] Comment on above: Order Comment: Order Date: 11/21/24Order Info: 0184-1 - CBCD Performed By: #### L 500.4050, L100.0100 ####[facility] [address] [place], [address] Nucleated RBC (Bld) [#/Vol] 0 10*3/uL Normal 0-5 [facility] Comment on above: Order Comment: Order Date: 11/21/24Order Info: 0184-1 - CBCD Performed By: #### L 500.4050, L100.0100 ####[facility] [address] [place], [address] Platelet mean volume (Bld) [Entitic vol] 10.2 fL Normal 6.2-12.0 [facility] Comment on above: Order Comment: Order Date: 11/21/24Order Info: 0184-1 - CBCD Performed By: #### L 500.4050, L100.0100 ####[facility] [address] [place], [address] Platelets (Bld) [#/Vol] 307 10*3/uL Normal 150-450 [facility] Comment on above: Order Comment: Order Date: 11/21/24Order Info: 0184-1 - CBCD Performed By: #### L 500.4050, L100.0100 ####[facility] [address] [place], [address] RBC (Bld) [#/Vol] 3.52 10*6/uL Low 4.2-5.4 [facility] Comment on above: Order Comment: Order Date: 11/21/24Order Info: 0184-1 - CBCD Performed By: #### L 500.4050, L100.0100 ####[facility] [address] [place], [address] RDW SD 48.5 fl High 35.1-43.9 [facility] Comment on above: Order Comment: Order Date: 11/21/24Order Info: 0184-1 - CBCD Performed By: #### L 500.4050, L100.0100 ####[facility] [address] [place], [address] WBC (Bld) [#/Vol] 6.5 10*3/uL Normal 4.4-11.0 [facility] Comment on above: Order Comment: Order Date: 11/21/24Order Info: [id number]- - CBCD Performed By: #### L 500.4050, L100.0100 ####[facility] [address] [place], [address] Carbon dioxide, total [Moles /volume] in Central venous bloodOrdered By: Rosaura Peck on 11-21-2024 CO2 [Moles/Vol] 25.1 mmol/L 21.0-32.0 [facility] Chloride assayOrdered By: Antonieta Peck on 11-21-2024 Chloride [Moles/Vol] 97 mmol/L Low 98-108 [facility] Comprehensive Metabolic Prof ilon 11-21-2024 Albumin [Mass/Vol] 4.1 g/dL Normal 3.4-4.8 [facility] Comment on above: Order Comment: Order Date: 11/21/24Order Info: 0786-1 - CMP Performed By: #### L 500.4050, L100.0100 ####[facility] [address] [place], [address] Albumin/Globulin [Mass ratio] 1.5 {ratio} Normal 0.9-2.4 [facility] Comment on above: Order Comment: Order Date: 11/21/24Order Info: 0786-1 - CMP Performed By: #### L 500.4050, L100.0100 ####[facility] [address] [place], [address] ALK PHOS 52 U/L Normal 35-104 [facility] Comment on above: Order Comment: Order Date: 11/21/24Order Info: 0786-1 - CMP Performed By: #### L 500.4050, L100.0100 ####[facility] [address] [place], [address] ALT [Catalytic activity/Vol] 17 U/L Normal <=34 [facility] Comment on above: Order Comment: Order Date: 11/21/24Order Info: 0786-1 - CMP Performed By: #### L 500.4050, L100.0100 ####[facility] [address] [place], [address] AST [Catalytic activity/Vol] 23 U/L Normal <=31 [facility] Comment on above: Order Comment: Order Date: 11/21/24Order Info: 0786-1 - CMP Performed By: #### L 500.4050, L100.0100 ####[facility] [address] [place], [address] Bilirubin [Mass/Vol] 0.22 mg/dL Normal 0.00-1.30 [facility] Comment on above: Order Comment: Order Date: 11/21/24Order Info: 0786-1 - CMP Performed By: #### L 500.4050, L100.0100 ####[facility] [address] [place], [address] BUN/CRE 37.5 RATIO High 10-20 [facility] Comment on above: Order Comment: Order Date: 11/21/24Order Info: 0786-1 - CMP Performed By: #### L 500.4050, L100.0100 ####[facility] [address] [place], [address] Calcium [Mass/Vol] 9.7 mg/dL Normal 7.6-11.0 [facility] Comment on above: Order Comment: Order Date: 11/21/24Order Info: 0786-1 - CMP Performed By: #### L 500.4050, L100.0100 ####[facility] [address] [place], [address] Chloride [Moles/Vol] 97 mmol/L Low 98-108 [facility] Comment on above: Order Comment: Order Date: 11/21/24Order Info: 0786-1 - CMP Performed By: #### L 500.4050, L100.0100 ####[facility] [address] [place], [address] CO2 [Moles/Vol] 25.1 mmol/L Normal 21.0-32.0 [facility] Comment on above: Order Comment: Order Date: 11/21/24Order Info: 0786-1 - CMP Performed By: #### L 500.4050, L100.0100 ####[facility] [address] [place], [address] Creatinine [Mass/Vol] 0.57 mg/dL Low 0.70-1.20 [facility] Comment on above: Order Comment: Order Date: 11/21/24Order Info: 0786-1 - CMP Performed By: #### L 500.4050, L100.0100 ####[facility] [address] [place], [address] GAP 10 Normal 5-15 [facility] Comment on above: Order Comment: Order Date: 11/21/24Order Info: 0786-1 - CMP Performed By: #### L 500.4050, L100.0100 ####[facility] [address] [place], [address] GFR/1.73 sq M.predicted among non-blacks MDRD (S/P/Bld) [Vol rate/Area] 91 mL/min/{1.73_m2} Normal >60 [facility] Comment on above: Order Comment: Order Date: 11/21/24Order Info: 0786-1 - CMP Result Comment: mL/m in/1.73m2 CKD-EPI Creatinine Equation (2020) Performed By: #### L 500.4050, L100.0100 ####[facility] [address] [place], [address] Globulin (S) [Mass/Vol] 2.7 g/dL Normal 2.2-4.2 [facility] Comment on above: Order Comment: Order Date: 11/21/24Order Info: 0786-1 - CMP Performed By: #### L 500.4050, L100.0100 ####[facility] [address] [place], [address] Glucose [Mass/Vol] 93 mg/dL Normal 70-99 [facility] Comment on above: Order Comment: Order Date: 11/21/24Order Info: 0786-1 - CMP Performed By: #### L 500.4050, L100.0100 ####[facility] [address] [place], [address] Potassium [Moles/Vol] 4.7 mmol/L Normal 3.3-5.1 [facility] Comment on above: Order Comment: Order Date: 11/21/24Order Info: 0786-1 - CMP Performed By: #### L 500.4050, L100.0100 ####[facility] [address] [place], [address] Sodium [Moles/Vol] 133 mmol/L Normal 133-145 [facility] Comment on above: Order Comment: Order Date: 11/21/24Order Info: 0786-1 - CMP Performed By: #### L 500.4050, L100.0100 ####[facility] [address] [place], [address] T PROT 6.8 g/dL Normal 5.9-8.4 [facility] Comment on above: Order Comment: Order Date: 11/21/24Order Info: 0786-1 - CMP Performed By: #### L 500.4050, L100.0100 ####[facility] [address] [place], [address] Urea nitrogen [Mass/Vol] 21 mg/dL High 4-19 [facility] Comment on above: Order Comment: Order Date: 11/21/24Order Info: 0786-1 - CMP Performed By: #### L 500.4050, L100.0100 ####[facility] [address] [place], [address] Eosinophil percentageOrdered By: Rosaura Peck on 11-21-2024 Eosinophils/100 WBC (Bld) 2.0 % 0-5 [facility] Erythrocyte distribution wid th ratioOrdered By: Rosaura Pekc on 11-21-2024 Erythrocyte distribution width (RBC) [Ratio] 13.7 % 11.6-14.6 [facility] Erythrocyte distribution wid th standard deviationOrdered By: Rosaura Peck on 11-21-2024 Erythrocyte distribution width (RBC) [Entitic vol] 48.5 fL High 35.1-43.9 [facility] Erythrocyte distribution width (RBC) [Ratio] 48.5 fl High 35.1-43.9 [facility] GFR/1.73 sq M.predicted carla g non-blacks MDRD (S/P/Bld) [Vol rate/Area]Ordered By: Rosaura Peck on 11-21-2024 Estimated GFR (MDRD) Non-Af Amer 91 >60 [facility] Comment on above: mL/min/1.73m2 CKD-EP I Creatinine Equation (2020) Glomerular filtration rate ( GFR) estimation/1.73 sq m using serum, plasma, or whole bOrdered By: Rosaura Peck on 11-21-2024 GFR/1.73 sq M.predicted among non-blacks MDRD (S/P/Bld) [Vol rate/Area] 91 mL/min/{1.73_m2} >60 [facility] Comment on above: mL/min/1.73m2 CKD-EP I Creatinine Equation (2020) Hematocrit Auto (Bld) [Volum e fraction]Ordered By: Rosaura Peck on 11-21-2024 Hematocrit (Bld) [Volume fraction] 33.9 % Low 37-47 [facility] Hemoglobin measurementOrdere d By: Rosaura Peck on 11-21-2024 Hemoglobin (Bld) [Mass/Vol] 11.2 g/dL Low 12.0-15.0 [facility] Immature granulocytes/100 WB C Auto (Bld)Ordered By: Rosaura Peck on 11-21-2024 Immature granulocytes/100 WBC (Bld) 0.200 % 0.0-0.9 [facility] Comment on above: IG% - Immature Granu locytes (promyelocytes, myelocytes and metamyelocytes) > 1% indicates that a LEFT SHIFT is Present. Laboratory - Chemistry and C hemistry - challengeOrdered By: Rosaura Peck on 11-21-2024 AST [Catalytic activity/Vol] 23 U/L <32 [facility] Lymphocytes Auto (Unsp spec) [#/Vol]Ordered By: Rosaura Peck on 11-21-2024 Lymphocytes (Bld) [#/Vol] 2.02 10*3/uL 0.83-4.51 [facility] Lymphocytes/100 WBC Auto (Un sp spec)Ordered By: Rosaura Peck on 11-21-2024 Lymphocytes/100 WBC (Bld) 31.2 % 19-41 [facility] MCV (mean corpuscular volume ) determinationOrdered By: Rosaura Peck on 11-21-2024 MCV (RBC) [Entitic vol] 96.3 fL 81-99 [facility] Mean corpuscular hemoglobin (MCH) determinationOrdered By: Rosaura Peck on 11-21-2024 MCH (RBC) [Entitic mass] 31.8 pg 27.0-32.0 [facility] Mean corpuscular hemoglobin concentration (MCHC) determinationOrdered By: Rosaura Peck on 11-21-2024 MCHC (RBC) [Mass/Vol] 33.0 g/dL 32-36 [facility] Mean platelet volume determi nationOrdered By: Rosaura Peck on 11-21-2024 Platelet mean volume (Bld) [Entitic vol] 10.2 fL 6.2-12.0 [facility] Monocyte percentageOrdered B y: Rosaura Peck on 11-21-2024 Monocytes/100 WBC (Bld) 6.8 % 0-10 [facility] Neutrophil percentageOrdered By: Rosaura Peck on 11-21-2024 Neutrophils/100 WBC (Bld) 59.2 % 47-70 [facility] Nucleated red blood cell per centageOrdered By: Rosaura Peck on 11-21-2024 Nucleated RBC/100 WBC (Bld) [Ratio] 0 % 0-5 [facility] Platelet countOrdered By: Antonieta Peck on 11-21-2024 Platelets (Bld) [#/Vol] 307 10*3/uL 150-450 [facility] Potassium (Unsp spec) [Mass/ Vol]Ordered By: Rosaura Peck on 11-21-2024 Potassium [Moles/Vol] 4.7 mmol/L 3.3-5.1 [facility] Potassium measurement (mass/ volume)Ordered By: Rosaura Peck on 11-21-2024 Potassium (Unsp spec) [Mass/Vol] 4.7 mmol/L 3.3-5.1 [facility] RBC Auto (Bld) [#/Vol]Ordere d By: Rosaura Peck on 11-21-2024 RBC (Bld) [#/Vol] 3.52 10*6/uL Low 4.2-5.4 [facility] Serum creatinine measurement (mass/volume)Ordered By: Rosaura Peck on 11-21-2024 Creatinine [Mass/Vol] 0.57 mg/dL Low 0.70-1.20 [facility] Serum globulin measurementOr dered By: Rosaura Peck on 11-21-2024 Globulin (S) [Mass/Vol] 2.7 g/dL 2.2-4.2 [facility] Serum glucose measurement (m ass/volume)Ordered By: Rosaura Peck on 11-21-2024 Glucose [Mass/Vol] 93 mg/dL 70-99 [facility] Serum or plasma alanine valdez otransferase (ALT) measurementOrdered By: Rosaura Peck on 11-21-2024 ALT [Catalytic activity/Vol] 17 U/L <35 [facility] Serum or plasma albumin alexander urement (mass/volume)Ordered By: Rosaura Peck on 11-21-2024 Albumin [Mass/Vol] 4.1 g/dL 3.4-4.8 [facility] Serum or plasma albumin/glob ulin mass ratioOrdered By: Rosaura Peck on 11-21-2024 Albumin/Globulin [Mass ratio] 1.5 {ratio} 0.9-2.4 [facility] Serum or plasma alkaline maxine sphatase measurementOrdered By: Rosaura Peck on 11-21-2024 ALP [Catalytic activity/Vol] 52 U/L 35-104 [facility] Serum or plasma calcium alexander urement (mass/volume)Ordered By: Rosaura Peck on 11-21-2024 Calcium [Mass/Vol] 9.7 mg/dL 7.6-11.0 [facility] Serum or plasma urea nitroge n measurement (mass/volume)Ordered By: Rosaura Peck on 11-21-2024 Urea nitrogen [Mass/Vol] 21 mg/dL High 4-19 [facility] Sodium levelOrdered By: Rosaura Peck on 11-21-2024 Sodium [Moles/Vol] 133 mmol/L 133-145 [facility] Total proteinOrdered By: Connor Peck on 11-21-2024 Protein [Mass/Vol] 6.8 g/dL 5.9-8.4 [facility] White blood cell (WBC) count Ordered By: Rosaura Peck on 11-21-2024 WBC (Bld) [#/Vol] 6.5 10*3/uL 4.4-11.0 [facility] Inital Evaluation (1) - PTon 11-14-2024 Inital Evaluation (1) - PT Normal [facility] Gastroenterology Visit Repor ton 10-19-2024 Gastroenterology Visit Report Normal [facility] Ferritinon 10-04-2024 Ferritin [Mass/Vol] 103 ng/mL Normal 8-252 [facility] Comment on above: Order Comment: FE,IB C,B12, FERR-ADD ON TO BWOrder Date: 10/03/24Order Info: [id number] - CMPOrder Info: [id number] - LIPIDOrder Info: [id number] - URICOrder Info: - MGOrder Info: [id number] - TSH Performed By: #### L 503.6550, L503.0105, L503.6030 ####[facility] [address] [place], [address] HIP, UNI W/ Pelvis 2-3 Views on 10-04-2024 HIP, UNI W/ Pelvis 2-3 Views Normal [facility] Iron+Iron Binding Capacityon 10-04-2024 Iron [Mass/Vol] 58 ug/dL Normal 50-170 [facility] Comment on above: Order Comment: FE,IB C,B12, FERR-ADD ON TO BWOrder Date: 10/03/24Order Info: [id number]- - CMPOrder Info: - LIPIDOrder Info: [id number] - URICOrder Info: - MGOrder Info: [id number] - TSH Performed By: #### L 503.6550, L503.0105, L503.6030 ####[facility] [address] [place], [address] IRON SATURATION 20.4 Normal 15.0-55.0 [facility] Comment on above: Order Comment: FE,IB C,B12, FERR-ADD ON TO BWOrder Date: 10/03/24Order Info: [id number]- - CMPOrder Info: - LIPIDOrder Info: [id number] - URICOrder Info: - MGOrder Info: [id number] - TSH Performed By: #### L 503.6550, L503.0105, L503.6030 ####[facility] [address] [place], [place], [address] TIBC 284 ug/dL Normal 250-450 [facility] Comment on above: Order Comment: FE,IB C,B12, FERR-ADD ON TO BWOrder Date: 10/03/24Order Info: 86- - CMPOrder Info: - LIPIDOrder Info: [id number] - URICOrder Info: - MGOrder Info: [id number] - TSH Performed By: #### L 503.6550, L503.0105, L503.6030 ####[facility] [address] [place], [place], [address] Vitamin B12on 10-04-2024 Cobalamin (Vitamin B12) [Mass/Vol] 533 pg/mL Normal 211-911 [facility] Comment on above: Order Comment: Order Date: 10/03/24Order Info: [id number] - VITD25 Performed By: #### L 503.6550, L503.0105, L503.6030 ####[facility] [address] [place], [place], [address] 36-VV-Hnpkyns DOrdered By: Joesph Peck on 10-03-2024 Vitamin D 25-Hydroxy 46.9 ng/mL [facility] Comment on above: Vitamin D 25(OH) Sta tus Range Deficiency <20 ng/mL (50nmol/L) Insufficiency 20 - 30 ng/mL (50 - 75 nmol/L) Sufficiency 30 - 100 ng/mL (75 - 250 nmol/L) Toxicity >100 ng/mL (>250 nmol/L) Absolute neutrophil countOrd ered By: Rosaura Peck on 10-03-2024 Neutrophils (Bld) [#/Vol] 5.5 10*3/uL 2.0-7.7 [facility] Albumin to globulin ratioOrd ered By: Rosaura Peck on 10-03-2024 Albumin/Globulin [Mass ratio] 1.1 {ratio} 0.9-2.4 [facility] Basophil percentageOrdered B y: Rosaura Peck on 10-03-2024 Basophils/100 WBC (Bld) 0.6 % 0-1 [facility] Bilirubin, totalOrdered By: Rosaura Peck on 10-03-2024 Bilirubin [Mass/Vol] 0.40 mg/dL 0.20-1.00 [facility] Comment on above: For patients on eltr ombopag therapy, use of Dimension [place] TBIL is not recommended. Blood urea nitrogen (BUN)/cr eatinine ratioOrdered By: Rosaura Peck on 10-03-2024 Urea nitrogen/Creatinine [Mass ratio] 34.5 mg/mg High 10-20 [facility] CBC W/Diff, Automatedon 09-06 Absolute Lymph 1.66 X10 3/uL Normal 0.83-4.51 [facility] Comment on above: Order Comment: Order Date: 10/03/24Order Info: [id number]- - CBCD Performed By: #### L 506.1000, L501.5200, L500.4050, L500.4100, L501.1400, L100.0100, L501.9520 ####[facility] [address] [place], [address] Absolute Neut 5.5 X10 3/uL Normal 2.0-7.7 [facility] Comment on above: Order Comment: Order Date: 10/03/24Order Info: 018- - CBCD Performed By: #### L 506.1000, L501.5200, L500.4050, L500.4100, L501.1400, L100.0100, L501.9520 ####[facility] [address] [place], [address] Basophils/100 WBC (Bld) 0.6 % Normal 0-1 [facility] Comment on above: Order Comment: Order Date: 10/03/24Order Info: 0184-1 - CBCD Performed By: #### L 506.1000, L501.5200, L500.4050, L500.4100, L501.1400, L100.0100, L501.9520 ####[facility] [address] [place], [address] Eosinophils/100 WBC (Bld) 1.2 % Normal 0-5 [facility] Comment on above: Order Comment: Order Date: 10/03/24Order Info: 0184- - CBCD Performed By: #### L 506.1000, L501.5200, L500.4050, L500.4100, L501.1400, L100.0100, L501.9520 ####[facility] [address] [place], [address] Erythrocyte distribution width (RBC) [Ratio] 14.5 % Normal 11.6-14.6 [facility] Comment on above: Order Comment: Order Date: 10/03/24Order Info: 0184-1 - CBCD Performed By: #### L 506.1000, L501.5200, L500.4050, L500.4100, L501.1400, L100.0100, L501.9520 ####[facility] [address] [place], [address] Hematocrit (Bld) [Volume fraction] 33.3 % Low 37-47 [facility] Comment on above: Order Comment: Order Date: 10/03/24Order Info: 0184-1 - CBCD Performed By: #### L 506.1000, L501.5200, L500.4050, L500.4100, L501.1400, L100.0100, L501.9520 ####[facility] [address] [place], [address] Hemoglobin (Bld) [Mass/Vol] 11.1 g/dL Low 12.0-15.0 [facility] Comment on above: Order Comment: Order Date: 10/03/24Order Info: 0184-1 - CBCD Performed By: #### L 506.1000, L501.5200, L500.4050, L500.4100, L501.1400, L100.0100, L501.9520 ####[facility] [address] [place], [address] IG% 0.300 Normal 0.0-0.9 [facility] Comment on above: Order Comment: Order Date: 10/03/24Order Info: 0184-1 - CBCD Result Comment: IG% - Immature Granulocytes (promyelocytes, myelocytes andmetamyelocytes) > 1% indicates that a LEFT SHIFT is Present. Performed By: #### L 506.1000, L501.5200, L500.4050, L500.4100, L501.1400, L100.0100, L501.9520 ####[facility] [address] [facility] [place], [address] Lymphocytes/100 WBC (Bld) 21.2 % Normal 19-41 [facility] Comment on above: Order Comment: Order Date: 10/03/24Order Info: 0184-1 - CBCD Performed By: #### L 506.1000, L501.5200, L500.4050, L500.4100, L501.1400, L100.0100, L501.9520 ####[facility] [address] [facility] [place], [address] MCH (RBC) [Entitic mass] 32.1 pg High 27.0-32.0 [facility] Comment on above: Order Comment: Order Date: 10/03/24Order Info: 0184-1 - CBCD Performed By: #### L 506.1000, L501.5200, L500.4050, L500.4100, L501.1400, L100.0100, L501.9520 ####[facility] [address] [facility] [place], [address] MCHC (RBC) [Mass/Vol] 33.3 g/dL Normal 32-36 [facility] Comment on above: Order Comment: Order Date: 10/03/24Order Info: 0184-1 - CBCD Performed By: #### L 506.1000, L501.5200, L500.4050, L500.4100, L501.1400, L100.0100, L501.9520 ####[facility] [address] [facility] [place], [address] MCV (RBC) [Entitic vol] 96.2 fL Normal 81-99 [facility] Comment on above: Order Comment: Order Date: 10/03/24Order Info: 0184-1 - CBCD Performed By: #### L 506.1000, L501.5200, L500.4050, L500.4100, L501.1400, L100.0100, L501.9520 ####[facility] [address] [place], [address] Monocytes/100 WBC (Bld) 6.4 % Normal 0-10 [facility] Comment on above: Order Comment: Order Date: 10/03/24Order Info: 0184-1 - CBCD Performed By: #### L 506.1000, L501.5200, L500.4050, L500.4100, L501.1400, L100.0100, L501.9520 ####[facility] [address] [place], [address] Neutrophils/100 WBC (Bld) 70.3 % High 47-70 [facility] Comment on above: Order Comment: Order Date: 10/03/24Order Info: 0184-1 - CBCD Performed By: #### L 506.1000, L501.5200, L500.4050, L500.4100, L501.1400, L100.0100, L501.9520 ####[facility] [address] [facility] [place], [address] Nucleated RBC (Bld) [#/Vol] 0 10*3/uL Normal 0-5 [facility] Comment on above: Order Comment: Order Date: 10/03/24Order Info: 0184-1 - CBCD Performed By: #### L 506.1000, L501.5200, L500.4050, L500.4100, L501.1400, L100.0100, L501.9520 ####[facility] [address] [facility] [place], [address] Platelet mean volume (Bld) [Entitic vol] 9.6 fL Normal 6.2-12.0 [facility] Comment on above: Order Comment: Order Date: 10/03/24Order Info: 0184-1 - CBCD Performed By: #### L 506.1000, L501.5200, L500.4050, L500.4100, L501.1400, L100.0100, L501.9520 ####[facility] [address] [place], [address] Platelets (Bld) [#/Vol] 347 10*3/uL Normal 150-450 [facility] Comment on above: Order Comment: Order Date: 10/03/24Order Info: 0184-1 - CBCD Performed By: #### L 506.1000, L501.5200, L500.4050, L500.4100, L501.1400, L100.0100, L501.9520 ####[facility] [address] [place], [address] RBC (Bld) [#/Vol] 3.46 10*6/uL Low 4.2-5.4 [facility] Comment on above: Order Comment: Order Date: 10/03/24Order Info: 0184-1 - CBCD Performed By: #### L 506.1000, L501.5200, L500.4050, L500.4100, L501.1400, L100.0100, L501.9520 ####[facility] [address] [place], [address] RDW SD 50.9 fl High 35.1-43.9 [facility] Comment on above: Order Comment: Order Date: 10/03/24Order Info: 0184-1 - CBCD Performed By: #### L 506.1000, L501.5200, L500.4050, L500.4100, L501.1400, L100.0100, L501.9520 ####[facility] [address] [place], [address] WBC (Bld) [#/Vol] 7.8 10*3/uL Normal 4.4-11.0 [facility] Comment on above: Order Comment: Order Date: 10/03/24Order Info: 0184-1 - CBCD Performed By: #### L 506.1000, L501.5200, L500.4050, L500.4100, L501.1400, L100.0100, L501.9520 ####[facility] [address] [place], [address] Carbon dioxide measurementOr dered By: Rosaura Peck on 10-03-2024 CO2 [Moles/Vol] 29.0 mmol/L 21.0-32.0 [facility] Chloride measurementOrdered By: Rosaura Peck on 10-03-2024 Chloride [Moles/Vol] 94 mmol/L Low 98-107 [facility] Comprehensive Metabolic Prof ilon 10-03-2024 Albumin [Mass/Vol] 3.6 g/dL Normal 3.2-5.0 [facility] Comment on above: Order Comment: Order Date: 10/03/24Order Info: [id number] - CMPOrder Info: - LIPIDOrder Info: [id number] - URICOrder Info: - MGOrder Info: [id number] - TSH Performed By: #### L 506.1000, L501.5200, L500.4050, L500.4100, L501.1400, L100.0100, L501.9520 ####[facility] [address] [place], [address] Albumin/Globulin [Mass ratio] 1.1 {ratio} Normal 0.9-2.4 [facility] Comment on above: Order Comment: Order Date: 10/03/24Order Info: 07- - CMPOrder Info: [id number] - LIPIDOrder Info: [id number] - URICOrder Info: [id number] - MGOrder Info: [id number] - TSH Performed By: #### L 506.1000, L501.5200, L500.4050, L500.4100, L501.1400, L100.0100, L501.9520 ####[facility] [address] [place], [address] ALK P 53 U/L Normal 45-117 [facility] Comment on above: Order Comment: Order Date: 10/03/24Order Info: 07-1 - CMPOrder Info: [id number] - LIPIDOrder Info: [id number] - URICOrder Info: [id number] - MGOrder Info: [id number] - TSH Performed By: #### L 506.1000, L501.5200, L500.4050, L500.4100, L501.1400, L100.0100, L501.9520 ####[facility] [address] [place], [address] ALT [Catalytic activity/Vol] 20 U/L Normal 13-56 [facility] Comment on above: Order Comment: Order Date: 10/03/24Order Info: [id number] - CMPOrder Info: [id number] - LIPIDOrder Info: [id number] - URICOrder Info: [id number] - MGOrder Info: [id number] - TSH Performed By: #### L 506.1000, L501.5200, L500.4050, L500.4100, L501.1400, L100.0100, L501.9520 ####[facility] [address] [place], [address] AST [Catalytic activity/Vol] 17 U/L Normal 15-37 [facility] Comment on above: Order Comment: Order Date: 10/03/24Order Info: [id number] - CMPOrder Info: - LIPIDOrder Info: [id number] - URICOrder Info: [id number] - MGOrder Info: [id number] - TSH Performed By: #### L 506.1000, L501.5200, L500.4050, L500.4100, L501.1400, L100.0100, L501.9520 ####[facility] [address] [place], [address] Bilirubin [Mass/Vol] 0.40 mg/dL Normal 0.20-1.00 [facility] Comment on above: Order Comment: Order Date: 10/03/24Order Info: [id number] - CMPOrder Info: - LIPIDOrder Info: [id number] - URICOrder Info: [id number] - MGOrder Info: [id number] - TSH Result Comment: For patients on eltrombopag therapy, use of Dimension [place] TBIL is not recommended. Performed By: #### L 506.1000, L501.5200, L500.4050, L500.4100, L501.1400, L100.0100, L501.9520 ####[facility] [address] [place], [address] BUN/CRE 34.5 RATIO High 10-20 [facility] Comment on above: Order Comment: Order Date: 10/03/24Order Info: [id number]- - CMPOrder Info: - LIPIDOrder Info: [id number] - URICOrder Info: [id number] - MGOrder Info: [id number] - TSH Performed By: #### L 506.1000, L501.5200, L500.4050, L500.4100, L501.1400, L100.0100, L501.9520 ####[facility] [address] [place], [place], [id number]([phone] CA,Total 9.6 mg/dL Normal 8.5-10.1 [facility] Comment on above: Order Comment: Order Date: 10/03/24Order Info: [id number]- - CMPOrder Info: - LIPIDOrder Info: [id number] - URICOrder Info: [id number] - MGOrder Info: [id number] - TSH Performed By: #### L 506.1000, L501.5200, L500.4050, L500.4100, L501.1400, L100.0100, L501.9520 ####[facility] [address] [place], [address] Chloride [Moles/Vol] 94 mmol/L Low 98-107 [facility] Comment on above: Order Comment: Order Date: 10/03/24Order Info: 86- - CMPOrder Info: - LIPIDOrder Info: [id number] - URICOrder Info: [id number] - MGOrder Info: 3 - TSH Performed By: #### L 506.1000, L501.5200, L500.4050, L500.4100, L501.1400, L100.0100, L501.9520 ####[facility] [address] [place], [address] CO2 [Moles/Vol] 29.0 mmol/L Normal 21.0-32.0 [facility] Comment on above: Order Comment: Order Date: 10/03/24Order Info: [id number]- - CMPOrder Info: - LIPIDOrder Info: [id number] - URICOrder Info: [id number] - MGOrder Info: 3 - TSH Performed By: #### L 506.1000, L501.5200, L500.4050, L500.4100, L501.1400, L100.0100, L501.9520 ####[facility] [address] [place], [address] Creatinine [Mass/Vol] 0.64 mg/dL Normal 0.55-1.02 [facility] Comment on above: Order Comment: Order Date: 10/03/24Order Info: 07 - CMPOrder Info: - LIPIDOrder Info: [id number] - URICOrder Info: [id number] - MGOrder Info: 3 - TSH Result Comment: The validity of the calculated GFR GFRAA in patients over70 years has not been determined. Clinical correlation isessential. Performed By: #### L 506.1000, L501.5200, L500.4050, L500.4100, L501.1400, L100.0100, L501.9520 ####[facility] [address] [place], [address] EST GFR - AA 115 mL/min Normal >60 [facility] Comment on above: Order Comment: Order Date: 10/03/24Order Info: [id number] - CMPOrder Info: - LIPIDOrder Info: [id number] - URICOrder Info: [id number] - MGOrder Info: 3 - TSH Result Comment: Afri can [place]ian GFR Calc Performed By: #### L 506.1000, L501.5200, L500.4050, L500.4100, L501.1400, L100.0100, L501.9520 ####[facility] [address] [place], [address] GAP 7 Normal 5-15 [facility] Comment on above: Order Comment: Order Date: 10/03/24Order Info: 86-1 - CMPOrder Info: - LIPIDOrder Info: [id number] - URICOrder Info: [id number] - MGOrder Info: 3 - TSH Performed By: #### L 506.1000, L501.5200, L500.4050, L500.4100, L501.1400, L100.0100, L501.9520 ####[facility] [address] [place], [address] GFR/1.73 sq M.predicted among non-blacks MDRD (S/P/Bld) [Vol rate/Area] 95 mL/min/{1.73_m2} Normal >60 [facility] Comment on above: Order Comment: Order Date: 10/03/24Order Info: [id number] - CMPOrder Info: - LIPIDOrder Info: [id number] - URICOrder Info: [id number] - MGOrder Info: 3 - TSH Result Comment: Non- GFR Calc Performed By: #### L 506.1000, L501.5200, L500.4050, L500.4100, L501.1400, L100.0100, L501.9520 ####[facility] [address] [place], [address] Globulin (S) [Mass/Vol] 3.3 g/dL Normal 2.2-4.2 [facility] Comment on above: Order Comment: Order Date: 10/03/24Order Info: 86-1 - CMPOrder Info: [id number] - LIPIDOrder Info: [id number] - URICOrder Info: [id number] - MGOrder Info: [id number] - TSH Performed By: #### L 506.1000, L501.5200, L500.4050, L500.4100, L501.1400, L100.0100, L501.9520 ####[facility] [address] [place], [address] Glucose [Mass/Vol] 88 mg/dL Normal 74-106 [facility] Comment on above: Order Comment: Order Date: 10/03/24Order Info: 86- - CMPOrder Info: [id number] - LIPIDOrder Info: [id number] - URICOrder Info: [id number] - MGOrder Info: [id number] - TSH Performed By: #### L 506.1000, L501.5200, L500.4050, L500.4100, L501.1400, L100.0100, L501.9520 ####[facility] [address] [place], [address] Potassium [Moles/Vol] 4.7 mmol/L Normal 3.5-5.1 [facility] Comment on above: Order Comment: Order Date: 10/03/24Order Info: [id number]- - CMPOrder Info: - LIPIDOrder Info: [id number] - URICOrder Info: [id number] - MGOrder Info: [id number] - TSH Performed By: #### L 506.1000, L501.5200, L500.4050, L500.4100, L501.1400, L100.0100, L501.9520 ####[facility] [address] [place], [address] Sodium [Moles/Vol] 130 mmol/L Low 136-145 [facility] Comment on above: Order Comment: Order Date: 10/03/24Order Info: 86- - CMPOrder Info: [id number] - LIPIDOrder Info: [id number] - URICOrder Info: [id number] - MGOrder Info: [id number] - TSH Performed By: #### L 506.1000, L501.5200, L500.4050, L500.4100, L501.1400, L100.0100, L501.9520 ####[facility] [address] [place], [address] T PROT 6.9 g/dL Normal 6.4-8.2 [facility] Comment on above: Order Comment: Order Date: 10/03/24Order Info: 86-1 - CMPOrder Info: - LIPIDOrder Info: [id number] - URICOrder Info: [id number] - MGOrder Info: 3 - TSH Performed By: #### L 506.1000, L501.5200, L500.4050, L500.4100, L501.1400, L100.0100, L501.9520 ####[facility] [address] [place], [place], [address] Urea nitrogen [Mass/Vol] 22 mg/dL High 7-18 [facility] Comment on above: Order Comment: Order Date: 10/03/24Order Info: 86-1 - CMPOrder Info: [id number] - LIPIDOrder Info: [id number] - URICOrder Info: [id number] - MGOrder Info: 6-3 - TSH Performed By: #### L 506.1000, L501.5200, L500.4050, L500.4100, L501.1400, L100.0100, L501.9520 ####[facility] [address] [place], [place], [address] Eosinophil percentageOrdered By: Rosaura Peck on 10-03-2024 Eosinophils/100 WBC (Bld) 1.2 % 0-5 [facility] Erythrocyte distribution wid th ratioOrdered By: Rosaura Peck on 10-03-2024 Erythrocyte distribution width (RBC) [Ratio] 14.5 % 11.6-14.6 [facility] Erythrocyte distribution wid th standard deviationOrdered By: Rosaura Peck on 10-03-2024 Erythrocyte distribution width (RBC) [Entitic vol] 50.9 fL High 35.1-43.9 [facility] Estimated glomerular filtrat ion rate (GFR) AmericanOrdered By: Rosaura Peck on 10-03-2024 Estimated GFR (MDRD) Amer 115 mL/min >60 [facility] Comment on above: GFR Calc Ferritin measurementOrdered By: Rosaura Peck on 10-03-2024 Ferritin [Mass/Vol] 103 ng/mL 8-252 [facility] Glomerular filtration rate ( GFR) estimationOrdered By: Rosaura Peck on 10-03-2024 Estimated GFR (MDRD) Non-Af Amer 95 mL/min >60 [facility] Comment on above: Non- GFR Calc Glucose measurementOrdered B y: Rosaura Peck on 10-03-2024 Glucose [Mass/Vol] 88 mg/dL 74-106 [facility] Hematocrit Auto (Bld) [Volum e fraction]Ordered By: Rosaura Peck on 10-03-2024 Hematocrit (Bld) [Volume fraction] 33.3 % Low 37-47 [facility] Hemoglobin measurementOrdere d By: Rosaura Peck on 10-03-2024 Hemoglobin (Bld) [Mass/Vol] 11.1 g/dL Low 12.0-15.0 [facility] High density lipoprotein (HD L) measurementOrdered By: Rosaura Peck on 10-03-2024 Cholesterol in HDL [Mass/Vol] 102 mg/dL >40 [facility] Comment on above: The drugs N-Acetylcy steine and Metamizole may falsely depress this assay. Reference Range HDL <40 mg/dL Low HDL Cholesterol HDL >or= 60 mg/dL High HDL Cholesterol Immature granulocytes/100 WB C Auto (Bld)Ordered By: Rosaura Peck on 10-03-2024 Immature granulocytes/100 WBC (Bld) 0.300 % 0.0-0.9 [facility] Comment on above: IG% - Immature Granu locytes (promyelocytes, myelocytes and metamyelocytes) > 1% indicates that a LEFT SHIFT is Present. Iron (Unsp spec) [Mass/Mass] Ordered By: Rosaura Peck on 10-03-2024 Iron [Mass/Vol] 58 ug/dL 50-170 [facility] Iron saturation [Mass fracti on]Ordered By: Rosaura Peck on 10-03-2024 Iron Saturation 20.4 % 15.0-55.0 [facility] Laboratory - Chemistry and C hemistry - challengeOrdered By: Rosaura Peck on 10-03-2024 AST [Catalytic activity/Vol] 17 U/L 15-37 [facility] Lipid Profileon 10-03-2024 Cholesterol [Mass/Vol] 234 mg/dL High 200 [facility] Comment on above: Order Comment: Order Date: 10/03/24Order Info: [id number] - CMPOrder Info: [id number] - LIPIDOrder Info: [id number] - URICOrder Info: [id number] - MGOrder Info: [id number] - TSH Result Comment: <200 mg/dL Desirable 200-240 mg/dL Borderline >240 mg/dL High Risk Performed By: #### L 506.1000, L501.5200, L500.4050, L500.4100, L501.1400, L100.0100, L501.9520 ####[facility] [address] [place], [place], [phone]) Cholesterol in HDL [Mass/Vol] 102 mg/dL Normal [facility] Comment on above: Order Comment: Order Date: 10/03/24Order Info: [id number] - CMPOrder Info: [id number] - LIPIDOrder Info: [id number] - URICOrder Info: [id number] - MGOrder Info: 6-3 - TSH Result Comment: The drugs N-Acetylcysteine and Metamizole may falselydepress this assay. Reference Range HDL <40 mg/dL Low HDL Cholesterol HDL >or= 60 mg/dL High HDL Cholesterol Performed By: #### L 506.1000, L501.5200, L500.4050, L500.4100, L501.1400, L100.0100, L501.9520 ####[facility] [address] [place], [address] Cholesterol in LDL [Mass/Vol] 115 mg/dL Normal 0-130 [facility] Comment on above: Order Comment: Order Date: 10/03/24Order Info: [id number]- - CMPOrder Info: [id number] - LIPIDOrder Info: [id number] - URICOrder Info: [id number] - MGOrder Info: [id number] - TSH Performed By: #### L 506.1000, L501.5200, L500.4050, L500.4100, L501.1400, L100.0100, L501.9520 ####[facility] [address] [place], [address] Cholesterol in VLDL [Mass/Vol] 17 mg/dL Normal 5-40 [facility] Comment on above: Order Comment: Order Date: 10/03/24Order Info: [id number] - CMPOrder Info: - LIPIDOrder Info: [id number] - URICOrder Info: [id number] - MGOrder Info: 3 - TSH Performed By: #### L 506.1000, L501.5200, L500.4050, L500.4100, L501.1400, L100.0100, L501.9520 ####[facility] [address] [place], [place], [address] Triglyceride [Mass/Vol] 83 mg/dL Normal [facility] Comment on above: Order Comment: Order Date: 10/03/24Order Info: [id number] - CMPOrder Info: - LIPIDOrder Info: [id number] - URICOrder Info: [id number] - MGOrder Info: [id number] - TSH Result Comment: The drugs N-Acetylcysteine and Metamizole may falselydepress this assay.Serum Triglycerides Reference Interval Normal <150 mg/dL Borderline high 150 - 199 mg/dL High 200 - 499 mg/dL Very High > or = 500 mg/dL Performed By: #### L 506.1000, L501.5200, L500.4050, L500.4100, L501.1400, L100.0100, L501.9520 ####[facility] [address] [place], [place], [id number] Low density lipoprotein (LDL ) cholesterol measurementOrdered By: Rosaura Peck on 10-03-2024 Cholesterol in LDL [Mass/Vol] 115 mg/dL 0-130 [facility] Lymphocytes Auto (Unsp spec) [#/Vol]Ordered By: Rosaura Peck on 10-03-2024 Lymphocytes (Bld) [#/Vol] 1.66 10*3/uL 0.83-4.51 [facility] Lymphocytes/100 WBC Auto (Un sp spec)Ordered By: Rosaura Peck on 10-03-2024 Lymphocytes/100 WBC (Bld) 21.2 % 19-41 [facility] MCV (mean corpuscular volume ) determinationOrdered By: Rosaura Peck on 10-03-2024 MCV (RBC) [Entitic vol] 96.2 fL 81-99 [facility] Magnesiumon 10-03-2024 Magnesium [Mass/Vol] 2.2 mg/dL Normal 1.6-2.6 [facility] Comment on above: Order Comment: Order Date: 10/03/24Order Info: [id number] - CMPOrder Info: [id number] - LIPIDOrder Info: [id number] - URICOrder Info: [id number] - MGOrder Info: [id number] - TSH Performed By: #### L 506.1000, L501.5200, L500.4050, L500.4100, L501.1400, L100.0100, L501.9520 ####[facility] [address] [place], [address] Magnesium measurementOrdered By: Rosaura Peck on 10-03-2024 Magnesium [Mass/Vol] 2.2 mg/dL 1.6-2.6 [facility] Mean corpuscular hemoglobin (MCH) determinationOrdered By: Rosaura Peck on 10-03-2024 MCH (RBC) [Entitic mass] 32.1 pg High 27.0-32.0 [facility] Mean corpuscular hemoglobin concentration (MCHC) determinationOrdered By: Rosaura Peck on 10-03-2024 MCHC (RBC) [Mass/Vol] 33.3 g/dL 32-36 [facility] Mean platelet volume determi nationOrdered By: Rosaura Peck on 10-03-2024 Platelet mean volume (Bld) [Entitic vol] 9.6 fL 6.2-12.0 [facility] Monocyte percentageOrdered B y: Rosaura Peck on 10-03-2024 Monocytes/100 WBC (Bld) 6.4 % 0-10 [facility] Neutrophil percentageOrdered By: Rosaura Peck on 10-03-2024 Neutrophils/100 WBC (Bld) 70.3 % High 47-70 [facility] Nucleated red blood cell per centageOrdered By: Rosaura Peck on 10-03-2024 Nucleated RBC/100 WBC (Bld) [Ratio] 0 % 0-5 [facility] Platelet countOrdered By: Antonieta Peck on 10-03-2024 Platelets (Bld) [#/Vol] 347 10*3/uL 150-450 [facility] Potassium measurementOrdered By: Rosaura Peck on 10-03-2024 Potassium [Moles/Vol] 4.7 mmol/L 3.5-5.1 [facility] RBC Auto (Bld) [#/Vol]Ordere d By: Rosaura Peck on 10-03-2024 RBC (Bld) [#/Vol] 3.46 10*6/uL Low 4.2-5.4 [facility] Serum anion gap measurementO rdered By: Rosaura Peck on 10-03-2024 Anion gap [Moles/Vol] 7 mmol/L 5-15 [facility] Serum globulin measurementOr dered By: Rosaura Peck on 10-03-2024 Globulin (S) [Mass/Vol] 3.3 g/dL 2.2-4.2 [facility] Serum or plasma alanine valdez otransferase (ALT) measurementOrdered By: Rosaura Peck on 10-03-2024 ALT [Catalytic activity/Vol] 20 U/L 13-56 [facility] Serum or plasma albumin alexander urement (mass/volume)Ordered By: Rosaura Peck on 10-03-2024 Albumin [Mass/Vol] 3.6 g/dL 3.2-5.0 [facility] Serum or plasma alkaline maxine sphatase measurementOrdered By: Rosaura Peck on 10-03-2024 ALP [Catalytic activity/Vol] 53 U/L 45-117 [facility] Serum or plasma calcium alexander urement (mass/volume)Ordered By: Rosaura Peck on 10-03-2024 Calcium [Mass/Vol] 9.6 mg/dL 8.5-10.1 [facility] Serum or plasma cholesterol measurement (mass/volume)Ordered By: Rosaura Peck on 10-03-2024 Cholesterol [Mass/Vol] 234 mg/dL High <200 [facility] Comment on above: <200 mg/dL Desirable 200-240 mg/dL Borderline >240 mg/dL High Risk Serum or plasma creatinine m easurement (mass/volume)Ordered By: Rosaura Peck on 10-03-2024 Creatinine [Mass/Vol] 0.64 mg/dL 0.55-1.02 [facility] Comment on above: The validity of the calculated GFR & GFRAA in patients over 70 years has not been determined. Clinical correlation is essential. Serum or plasma urea nitroge n measurement (mass/volume)Ordered By: Rosaura Peck on 10-03-2024 Urea nitrogen [Mass/Vol] 22 mg/dL High 7-18 [facility] Serum or plasma uric acid me asurement (mass/volume)Ordered By: Rosaura Peck on 10-03-2024 Urate [Mass/Vol] 3.0 mg/dL 2.6-6.0 [facility] Comment on above: The drugs N-Acetylcy steine and Metamizole may falsely depress this assay. Sodium levelOrdered By: Rosaura Peck on 10-03-2024 Sodium [Moles/Vol] 130 mmol/L Low 136-145 [facility] TIBCOrdered By: Rosaura crooks on 10-03-2024 Total Iron Binding Capacity 284 ug/dL 250-450 [facility] TSH QnOrdered By: Rosaura donis on 10-03-2024 Thyroid Stimulating Hormone (TSH) 1.420 uIU/mL 0.358-3.74 0 [facility] Thyroid Stim Hormone (TSH)on 10-03-2024 TSH 1.420 uIU/mL Normal 0.358-3.74 0 [facility] Comment on above: Order Comment: Order Date: 10/03/24Order Info: [id number] - CMPOrder Info: [id number] - LIPIDOrder Info: [id number] URICOrder Info: [id number] - MGOrder Info: 6-3 - TSH Performed By: #### L 506.1000, L501.5200, L500.4050, L500.4100, L501.1400, L100.0100, L501.9520 ####[facility] [address] [place], [place], [id number] Total proteinOrdered By: Connor Peck on 10-03-2024 Protein [Mass/Vol] 6.9 g/dL 6.4-8.2 [facility] Triglycerides measurementOrd ered By: Rosaura Peck on 10-03-2024 Triglyceride [Mass/Vol] 83 mg/dL <199 [facility] Comment on above: The drugs N-Acetylcy steine and Metamizole may falsely depress this assay.Serum Triglycerides Reference Interval Normal <150 mg/dL Borderline high 150 - 199 mg/dL High 200 - 499 mg/dL Very High > or = 500 mg/dL Uric Acidon 10-03-2024 URIC 3.0 mg/dL Normal 2.6-6.0 [facility] Comment on above: Order Comment: Order Date: 10/03/24Order Info: [id number] - CMPOrder Info: [id number] - LIPIDOrder Info: [id number] - URICOrder Info: [id number] - MGOrder Info: [id number] - TSH Result Comment: The drugs N-Acetylcysteine and Metamizole may falselydepress this assay. Performed By: #### L 506.1000, L501.5200, L500.4050, L500.4100, L501.1400, L100.0100, L501.9520 ####[facility] [address] [place], [place], [id number] Very low density lipoprotein (VLDL) cholesterol measurementOrdered By: Rosaura Peck on 10-03-2024 VLDL Cholesterol 17 mg/dL 5-40 [facility] Vitamin B12 measurementOrder ed By: Rosaura Peck on 10-03-2024 Cobalamin (Vitamin B12) [Mass/Vol] 533 pg/mL 211-911 [facility] Vitamin D,25 Hydroxyon 10-03 Vitamin D 25-OH 46.9 ng/mL Normal [facility] Comment on above: Order Comment: Order Date: 10/03/24Order Info: [id number] - VITD25 Result Comment: Kerry min D 25(OH) Status Range Deficiency <20 ng/mL (50nmol/L) Insufficiency 20 - 30 ng/mL (50 - 75 nmol/L) Sufficiency 30 - 100 ng/mL (75 - 250 nmol/L) Toxicity >100 ng/mL (>250 nmol/L) Performed By: #### L 506.1000, L501.5200, L500.4050, L500.4100, L501.1400, L100.0100, L501.9520 ####[facility] [address] [place], [address] White blood cell (WBC) count Ordered By: Rosaura Peck on 10-03-2024 WBC (Bld) [#/Vol] 7.8 10*3/uL 4.4-11.0 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 Family History Problem Relation Age of Onset Heart disease Father Rheumatic fever Father Family Status - Relation Status Age at Father Level of Service:73467 ND OFFICE/OUTPATIENT NEW LOW MDM 30 MINUTES Reason for Visit and Comments: Female Problem [263] Normal [facility] CREATININE FINGERSTICKon CREATININE WB < 1.0 Normal 0.55-1.02 [facility] Comment on above: Performed By: #### L 9100.0200 ####[facility] [address] [place], [address] EGFR WB > 60.0000 Normal >60 [facility] Comment on above: Performed By: #### L 9100.0200 ####[facility] [address] [place], [address] Creatinine measurement at dsideOrdered By: Sarina Messer on 08-23-2024 Bedside Creatinine < 1.0 mg/dL 0.55-1.02 [facility] EGFROrdered By: Sarina Moura asov on 08-23-2024 Bedside Estimated GFR (eGFR) > 60.0000 mL/min >60 [facility] MRI Abd WITH and W/O Contras ton 08-23-2024 MRI Abd WITH and W/O Contrast Normal [facility] AFP, Tumor Markeron 07-12-20 AFP TUMOR EDUARDO < 1.8 Normal 0.0-8.7 [facility] Comment on above: Order Comment: N Result Comment: [facility] [employer] Electrochemiluminescence Immunoassay(ECLIA)Values obtained with different assay methods or kits cannotbe used interchangeably. Results cannot be interpreted asabsolute evidence of the presence or absence of malignantdisease.This test is not interpretable in females.Performed at: [email or web address] [id number] Director: Pedro Lorenzo PhD, Phone: [phone] Performed By: #### L 100.0100, L3300.0700 ####[facility] [address] [place], [address] CBC W/Diff, Automatedon 110 Absolute Lymph 0.73 X10 3/uL Low 0.83-4.51 [facility] Comment on above: Performed By: #### L 100.0100, L3300.0700 ####[facility] [address] [place], [address] Absolute Neut 7.6 X10 3/uL Normal 2.0-7.7 [facility] Comment on above: Performed By: #### L 100.0100, L3300.0700 ####[facility] [address] [place], [address] Basophils/100 WBC (Bld) 0.3 % Normal 0-1 [facility] Comment on above: Performed By: #### L 100.0100, L3300.0700 ####[facility] [address] [place], [address] Eosinophils/100 WBC (Bld) 6.4 % High 0-5 [facility] Comment on above: Performed By: #### L 100.0100, L3300.0700 ####[facility] [address] [place], [address] Erythrocyte distribution width (RBC) [Ratio] 16.3 % High 11.6-14.6 [facility] Comment on above: Performed By: #### L 100.0100, L3300.0700 ####[facility] [address] [place], [address] Hematocrit (Bld) [Volume fraction] 33.0 % Low 37-47 [facility] Comment on above: Performed By: #### L 100.0100, L3300.0700 ####[facility] [address] [place], [address] Hemoglobin (Bld) [Mass/Vol] 11.3 g/dL Low 12.0-15.0 [facility] Comment on above: Performed By: #### L 100.0100, L3300.0700 ####[place] [facility] [address] [place], [address] IG% 0.400 Normal 0.0-0.9 [facility] Comment on above: Result Comment: IG% - Immature Granulocytes (promyelocytes, myelocytes andmetamyelocytes) > 1% indicates that a LEFT SHIFT is Present. Performed By: #### L 100.0100, L3300.0700 ####[facility] [address] [place], [address] Lymphocytes/100 WBC (Bld) 7.7 % Low 19-41 [facility] Comment on above: Performed By: #### L 100.0100, L3300.0700 ####[facility] [address] [place], [address] MCH (RBC) [Entitic mass] 31.0 pg Normal 27.0-32.0 [facility] Comment on above: Performed By: #### L 100.0100, L3300.0700 ####[facility] [address] [place], [address] MCHC (RBC) [Mass/Vol] 34.2 g/dL Normal 32-36 [facility] Comment on above: Performed By: #### L 100.0100, L3300.0700 ####[facility] [address] [place], [address] MCV (RBC) [Entitic vol] 90.7 fL Normal 81-99 [facility] Comment on above: Performed By: #### L 100.0100, L3300.0700 ####[facility] [address] [place], [address] Monocytes/100 WBC (Bld) 5.3 % Normal 0-10 [facility] Comment on above: Performed By: #### L 100.0100, L3300.0700 ####[facility] [address] [place], [address] Neutrophils/100 WBC (Bld) 79.9 % High 47-70 [facility] Comment on above: Performed By: #### L 100.0100, L3300.0700 ####[facility] [address] [place], [address] Nucleated RBC (Bld) [#/Vol] 0 10*3/uL Normal 0-5 [facility] Comment on above: Performed By: #### L 100.0100, L3300.0700 ####[facility] [address] [place], [address] Platelet mean volume (Bld) [Entitic vol] 8.3 fL Normal 6.2-12.0 [facility] Comment on above: Performed By: #### L 100.0100, L3300.0700 ####[facility] [address] [place], [address] Platelets (Bld) [#/Vol] 378 10*3/uL Normal 150-450 [facility] Comment on above: Performed By: #### L 100.0100, L3300.0700 ####[facility] [address] [place], [address] RBC (Bld) [#/Vol] 3.64 10*6/uL Low 4.2-5.4 [facility] Comment on above: Performed By: #### L 100.0100, L3300.0700 ####[facility] [address] [place], [address] RDW SD 54.4 fl High 35.1-43.9 [facility] Comment on above: Performed By: #### L 100.0100, L3300.0700 ####[facility] [address] [place], [address] WBC (Bld) [#/Vol] 9.5 10*3/uL Normal 4.4-11.0 [facility] Comment on above: Performed By: #### L 100.0100, L3300.0700 ####[facility] [address] [place], [address] Gastroenterology Visit Repor ton 07-11-2024 Gastroenterology Visit Report Normal [facility] Pelvic w/ Transvaginalon Pelvic w/ Transvaginal Normal [facility] Basic Metabolic Profile (BMP )on 06-26-2024 BUN/CRE 31.6 RATIO High 10-20 [facility] Comment on above: Order Comment: Order Date: 06/25/24Order Info: 0667-1 - BMP Performed By: #### L 500.2500 ####[facility] [address] [place], [address] CA,Total 9.8 mg/dL Normal 8.5-10.1 [facility] Comment on above: Order Comment: Order Date: 06/25/24Order Info: 666-09 - BMP Performed By: #### L 500.2500 ####[facility] [address] [place], [address] Chloride [Moles/Vol] 99 mmol/L Normal 98-107 [facility] Comment on above: Order Comment: Order Date: 06/25/24Order Info: 666-09 - BMP Performed By: #### L 500.2500 ####[facility] [address] [place], [address] CO2 [Moles/Vol] 27.0 mmol/L Normal 21.0-32.0 [facility] Comment on above: Order Comment: Order Date: 06/25/24Order Info: 666-09 - BMP Performed By: #### L 500.2500 ####[facility] [address] [place], [address] Creatinine [Mass/Vol] 0.63 mg/dL Normal 0.55-1.02 [facility] Comment on above: Order Comment: Order Date: 06/25/24Order Info: 666-09 - BMP Result Comment: The validity of the calculated GFR GFRAA in patients over70 years has not been determined. Clinical correlation isessential. Performed By: #### L 500.2500 ####[facility] [address] [place], [address] EST GFR - AA 116 mL/min Normal >60 [facility] Comment on above: Order Comment: Order Date: 06/25/24Order Info: 666-09 - BMP Result Comment: Afri can [place]ian GFR Calc Performed By: #### L 500.2500 ####[facility] [address] [place], [address] GAP 7 Normal 5-15 [facility] Comment on above: Order Comment: Order Date: 06/25/24Order Info: 666-09 - BMP Performed By: #### L 500.2500 ####[facility] [address] [place], [address] GFR/1.73 sq M.predicted among non-blacks MDRD (S/P/Bld) [Vol rate/Area] 96 mL/min/{1.73_m2} Normal >60 [facility] Comment on above: Order Comment: Order Date: 06/25/24Order Info: 666-09 - BMP Result Comment: Non- GFR Calc Performed By: #### L 500.2500 ####[facility] [address] [place], [address] Glucose [Mass/Vol] 92 mg/dL Normal 74-106 [facility] Comment on above: Order Comment: Order Date: 06/25/24Order Info: 666-09 - BMP Performed By: #### L 500.2500 ####[facility] [address] [place], [address] Potassium [Moles/Vol] 4.3 mmol/L Normal 3.5-5.1 [facility] Comment on above: Order Comment: Order Date: 06/25/24Order Info: 666-09 - BMP Performed By: #### L 500.2500 ####[facility] [address] [place], [address] Sodium [Moles/Vol] 132 mmol/L Low 136-145 [facility] Comment on above: Order Comment: Order Date: 06/25/24Order Info: 666-09 - BMP Performed By: #### L 500.2500 ####[facility] [address] [place], [address] Urea nitrogen [Mass/Vol] 20 mg/dL High 7-18 [facility] Comment on above: Order Comment: Order Date: 06/25/24Order Info: 0667-1 - BMP Performed By: #### L 500.2500 ####[facility] [address] [place], [address] CBC W/Diff, Automatedon 10- Absolute Neut Normal 2.0-7.7 [facility] Comment on above: Order Comment: Order Date: 06/22/24Order Info: 018- - CBCD Result Comment: SOME ORDERS WERE OLDER ORDERS AND /OR DONE ON TUESDAY [id number] Performed By: #### L 500.4050, L100.0100 ####[facility] [address] [place], [address] HCT Normal 37-47 [facility] Comment on above: Order Comment: Order Date: 06/22/24Order Info: 01812-04 - CBCD Result Comment: SOME ORDERS WERE OLDER ORDERS AND /OR DONE ON TUESDAY [id number] Performed By: #### L 500.4050, L100.0100 ####[facility] [address] [place], [address] HGB Normal 12.0-15.0 [facility] Comment on above: Order Comment: Order Date: 06/22/24Order Info: 01812-04 - CBCD Result Comment: SOME ORDERS WERE OLDER ORDERS AND /OR DONE ON TUESDAY [id number] Performed By: #### L 500.4050, L100.0100 ####[facility] [address] [place], [address] MCH Normal 27.0-32.0 [facility] Comment on above: Order Comment: Order Date: 06/22/24Order Info: 018- - CBCD Result Comment: SOME ORDERS WERE OLDER ORDERS AND /OR DONE ON TUESDAY [id number] Performed By: #### L 500.4050, L100.0100 ####[facility] [address] [place], [address] MCHC Normal 32-36 [facility] Comment on above: Order Comment: Order Date: 06/22/24Order Info: 183- - CBCD Result Comment: SOME ORDERS WERE OLDER ORDERS AND /OR DONE ON TUESDAY [id number] Performed By: #### L 500.4050, L100.0100 ####[facility] [address] [place], [address] MCV Normal 81-99 [facility] Comment on above: Order Comment: Order Date: 06/22/24Order Info: 183- - CBCD Result Comment: SOME ORDERS WERE OLDER ORDERS AND /OR DONE ON TUESDAY [id number] Performed By: #### L 500.4050, L100.0100 ####[facility] [address] [place], [address] NEUT% Normal 47-70 [facility] Comment on above: Order Comment: Order Date: 06/22/24Order Info: 183- - CBCD Result Comment: SOME ORDERS WERE OLDER ORDERS AND /OR DONE ON TUESDAY [id number] Performed By: #### L 500.4050, L100.0100 ####[facility] [address] [place], [address] PLT Normal 150-450 [facility] Comment on above: Order Comment: Order Date: 06/22/24Order Info: 183- - CBCD Result Comment: SOME ORDERS WERE OLDER ORDERS AND /OR DONE ON TUESDAY [id number] Performed By: #### L 500.4050, L100.0100 ####[facility] [address] [place], [address] RBC Normal 4.2-5.4 [facility] Comment on above: Order Comment: Order Date: 06/22/24Order Info: 183- - CBCD Result Comment: SOME ORDERS WERE OLDER ORDERS AND /OR DONE ON TUESDAY [id number] Performed By: #### L 500.4050, L100.0100 ####[facility] [address] [place], [address] RDW CV Normal 11.6-14.6 [facility] Comment on above: Order Comment: Order Date: 06/22/24Order Info: 0184-1 - CBCD Result Comment: SOME ORDERS WERE OLDER ORDERS AND /OR DONE ON TUESDAY [id number] Performed By: #### L 500.4050, L100.0100 ####[facility] [address] [place], [address] RDW SD Normal 35.1-43.9 [facility] Comment on above: Order Comment: Order Date: 06/22/24Order Info: 0184- - CBCD Result Comment: SOME ORDERS WERE OLDER ORDERS AND /OR DONE ON TUESDAY [id number] Performed By: #### L 500.4050, L100.0100 ####[facility] [address] [place], [address] WBC Normal 4.4-11.0 [facility] Comment on above: Order Comment: Order Date: 06/22/24Order Info: 0184- - CBCD Result Comment: SOME ORDERS WERE OLDER ORDERS AND /OR DONE ON TUESDAY [id number] Performed By: #### L 500.4050, L100.0100 ####[facility] [address] [place], [address] Comprehensive Metabolic Prof ilon 06-26-2024 ALB Normal 3.2-5.0 [facility] Comment on above: Order Comment: Order Date: 06/22/24Order Info: 0786-1 - CMPOrder Info: 2500-7 - TIBCOrder Info: 2498-4 - FEOrder Info: 2276-4 - FEROrder Info: 2284-8 - FOLSiron saturationN Result Comment: SOME ORDERS WERE OLDER ORDERS AND /OR DONE ON TUESDAY [id number] Performed By: #### L 500.4050, L100.0100 ####[facility] [address] [place], [address] ALK P Normal 45-117 [facility] Comment on above: Order Comment: Order Date: 06/22/24Order Info: 0786-1 - CMPOrder Info: 2499-7 - TIBCOrder Info: 2498-4 - FEOrder Info: 2276-4 - FEROrder Info: 2284-8 - FOLSiron saturationN Result Comment: SOME ORDERS WERE OLDER ORDERS AND /OR DONE ON TUESDAY [id number] Performed By: #### L 500.4050, L100.0100 ####[facility] [address] [place], [address] ALT Normal 13-56 [facility] Comment on above: Order Comment: Order Date: 06/22/24Order Info: 0786- - CMPOrder Info: 2499-7 - TIBCOrder Info: 2498-4 - FEOrder Info: 2276-4 - FEROrder Info: 2284-8 - FOLSiron saturationN Result Comment: SOME ORDERS WERE OLDER ORDERS AND /OR DONE ON TUESDAY [id number] Performed By: #### L 500.4050, L100.0100 ####[facility] [address] [place], [address] AST Normal 15-37 [facility] Comment on above: Order Comment: Order Date: 06/22/24Order Info: 0786- - CMPOrder Info: 7 - TIBCOrder Info: 2498-4 - FEOrder Info: 2276-4 - FEROrder Info: 2284-8 - FOLSiron saturationN Result Comment: SOME ORDERS WERE OLDER ORDERS AND /OR DONE ON TUESDAY [id number] Performed By: #### L 500.4050, L100.0100 ####[facility] [address] [place], [address] BUN Normal 7-18 [facility] Comment on above: Order Comment: Order Date: 06/22/24Order Info: 0786-1 - CMPOrder Info: 2500-7 - TIBCOrder Info: 2498-4 - FEOrder Info: 2276-4 - FEROrder Info: 2284-8 - FOLSiron saturationN Result Comment: SOME ORDERS WERE OLDER ORDERS AND /OR DONE ON TUESDAY [id number] Performed By: #### L 500.4050, L100.0100 ####[facility] [address] [place], [address] BUN/CRE Normal 10-20 [facility] Comment on above: Order Comment: Order Date: 06/22/24Order Info: 0786-1 - CMPOrder Info: 2500-7 - TIBCOrder Info: 2498-4 - FEOrder Info: 2276-4 - FEROrder Info: 2284-8 - FOLSiron saturationN Result Comment: SOME ORDERS WERE OLDER ORDERS AND /OR DONE ON TUESDAY [id number] Performed By: #### L 500.4050, L100.0100 ####[facility] [address] [place], [address] CA,Total Normal 8.5-10.1 [facility] Comment on above: Order Comment: Order Date: 06/22/24Order Info: 0786- - CMPOrder Info: 25007 - TIBCOrder Info: 2498-4 - FEOrder Info: 2276-4 - FEROrder Info: 2284-8 - FOLSiron saturationN Result Comment: SOME ORDERS WERE OLDER ORDERS AND /OR DONE ON TUESDAY [id number] Performed By: #### L 500.4050, L100.0100 ####[facility] [address] [place], [address] CL Normal 98-107 [facility] Comment on above: Order Comment: Order Date: 06/22/24Order Info: 0786-1 - CMPOrder Info: 2500-7 - TIBCOrder Info: 2498-4 - FEOrder Info: 2276-4 - FEROrder Info: 2284-8 - FOLSiron saturationN Result Comment: SOME ORDERS WERE OLDER ORDERS AND /OR DONE ON TUESDAY [id number] Performed By: #### L 500.4050, L100.0100 ####[facility] [address] [place], [address] CO2 Normal 21.0-32.0 [facility] Comment on above: Order Comment: Order Date: 06/22/24Order Info: 0786- - CMPOrder Info: 7 - TIBCOrder Info: 2498-4 - FEOrder Info: 2276-4 - FEROrder Info: 2284-8 - FOLSiron saturationN Result Comment: SOME ORDERS WERE OLDER ORDERS AND /OR DONE ON TUESDAY [id number] Performed By: #### L 500.4050, L100.0100 ####[facility] [address] [place], [address] CREAT,SERUM Normal 0.55-1.02 [facility] Comment on above: Order Comment: Order Date: 06/22/24Order Info: 785-09 - CMPOrder Info: 7 - TIBCOrder Info: 2498-4 - FEOrder Info: 2276-4 - FEROrder Info: 2284-8 - FOLSiron saturationN Result Comment: SOME ORDERS WERE OLDER ORDERS AND /OR DONE ON Tuesday Performed By: #### L 500.4050, L100.0100 ####[facility] [address] [place], [address] EST GFR Normal >60 [facility] Comment on above: Order Comment: Order Date: 06/22/24Order Info: 785-09 - CMPOrder Info: 2500-03 - TIBCOrder Info: 2498-4 - FEOrder Info: 2276-4 - FEROrder Info: 2284-8 - FOLSiron saturationN Result Comment: SOME ORDERS WERE OLDER ORDERS AND /OR DONE ON Tuesday Performed By: #### L 500.4050, L100.0100 ####[facility] [address] [place], [address] EST GFR - AA Normal >60 [facility] Comment on above: Order Comment: Order Date: 06/22/24Order Info: 07 - CMPOrder Info: 7 - TIBCOrder Info: 2498-4 - FEOrder Info: 2276-4 - FEROrder Info: 2284-8 - FOLSiron saturationN Result Comment: SOME ORDERS WERE OLDER ORDERS AND /OR DONE ON Tuesday Performed By: #### L 500.4050, L100.0100 ####[facility] [address] [place], [address] GAP Normal 5-15 [facility] Comment on above: Order Comment: Order Date: 06/22/24Order Info: 0786-1 - CMPOrder Info: 2500-7 - TIBCOrder Info: 2498-4 - FEOrder Info: 2276-4 - FEROrder Info: 2284-8 - FOLSiron saturationN Result Comment: SOME ORDERS WERE OLDER ORDERS AND /OR DONE ON TUESDAY [id number] Performed By: #### L 500.4050, L100.0100 ####[facility] [address] [place], [address] GLU Normal 74-106 [facility] Comment on above: Order Comment: Order Date: 06/22/24Order Info: 0786-1 - CMPOrder Info: 25007 - TIBCOrder Info: 2498-4 - FEOrder Info: 2276-4 - FEROrder Info: 2284-8 - FOLSiron saturationN Result Comment: SOME ORDERS WERE OLDER ORDERS AND /OR DONE ON TUESDAY [id number] Performed By: #### L 500.4050, L100.0100 ####[facility] [address] [place], [address] Potassium Normal 3.5-5.1 [facility] Comment on above: Order Comment: Order Date: 06/22/24Order Info: 0786-1 - CMPOrder Info: 2500-7 - TIBCOrder Info: 2498-4 - FEOrder Info: 2276-4 - FEROrder Info: 2284-8 - FOLSiron saturationN Result Comment: SOME ORDERS WERE OLDER ORDERS AND /OR DONE ON TUESDAY [id number] Performed By: #### L 500.4050, L100.0100 ####[facility] [address] [place], [address] T BILI Normal 0.20-1.00 [facility] Comment on above: Order Comment: Order Date: 06/22/24Order Info: 0786-1 - CMPOrder Info: 2500-7 - TIBCOrder Info: 2498-4 - FEOrder Info: 2276-4 - FEROrder Info: 2284-8 - FOLSiron saturationN Result Comment: SOME ORDERS WERE OLDER ORDERS AND /OR DONE ON TUESDAY [id number] Performed By: #### L 500.4050, L100.0100 ####[facility] [address] [place], [address] T PROT Normal 6.4-8.2 [facility] Comment on above: Order Comment: Order Date: 06/22/24Order Info: 0786-1 - CMPOrder Info: 2500-7 - TIBCOrder Info: 2498-4 - FEOrder Info: 2276-4 - FEROrder Info: 2284-8 - FOLSiron saturationN Result Comment: SOME ORDERS WERE OLDER ORDERS AND /OR DONE ON TUESDAY [id number] Performed By: #### L 500.4050, L100.0100 ####[facility] [address] [place], [address] Comprehensive Metabolic Profil Normal 136-145 [facility] Comment on above: Order Comment: Order Date: 06/22/24Order Info: 0786-1 - CMPOrder Info: 2500-7 - TIBCOrder Info: 2498-4 - FEOrder Info: 2276-4 - FEROrder Info: 2284-8 - FOLSiron saturationN Result Comment: SOME ORDERS WERE OLDER ORDERS AND /OR DONE ON TUESDAY [id number] Performed By: #### L 500.4050, L100.0100 ####[facility] [address] [place], [address] Cancer Antigen 125on 10-19-2 024 CA 125 24.4 U/mL Normal 0.0-38.1 [facility] Comment on above: Result Comment: [employer] Electrochemiluminescence Immunoassay(ECLIA)Values obtained with different assay methods or kits cannotbe used interchangeably. Results cannot be interpreted asabsolute evidence of the presence or absence of malignantdisease.Performed at: [facility] [place], [place] [id number] Director: Pedro Lorenzo PhD, Phone: [phone] Performed By: #### L 3100.5000, L3100.2300 ####[facility] [address] [place], [address] Carcinoembryonic Antigenon 1 0- CEA 3.5 ng/mL Normal 0.0-4.7 [facility] Comment on above: Result Comment: Nons mokers <3.9 Smokers <5.6[employer] Electrochemiluminescence Immunoassay(ECLIA)Values obtained with different assay methods or kitscannot be used interchangeably. Results cannot beinterpreted as absolute evidence of the presence orabsence of malignant disease. Performed By: #### L 3100.5000, L3100.2300 ####[facility] [address] [place], [place], [address] CBC W/Diff, Automatedon 10-1 Absolute Lymph 1.43 X10 3/uL Normal 0.83-4.51 [facility] Comment on above: Performed By: #### L 506.0250, L503.6030, L503.0105, L503.6550, L100.0100, L500.4050 ####[facility] [address] [place], [place], [phone] Absolute Neut 3.3 X10 3/uL Normal 2.0-7.7 [facility] Comment on above: Performed By: #### L 506.0250, L503.6030, L503.0105, L503.6550, L100.0100, L500.4050 ####[facility] [address] [place], [address] Basophils/100 WBC (Bld) 0.7 % Normal 0-1 [facility] Comment on above: Performed By: #### L 506.0250, L503.6030, L503.0105, L503.6550, L100.0100, L500.4050 ####[facility] [address] [place], [address] Eosinophils/100 WBC (Bld) 2.6 % Normal 0-5 [facility] Comment on above: Performed By: #### L 506.0250, L503.6030, L503.0105, L503.6550, L100.0100, L500.4050 ####[facility] [address] [place], [address] Erythrocyte distribution width (RBC) [Ratio] 17.0 % High 11.6-14.6 [facility] Comment on above: Performed By: #### L 506.0250, L503.6030, L503.0105, L503.6550, L100.0100, L500.4050 ####[facility] [address] [place], [address] Hematocrit (Bld) [Volume fraction] 33.3 % Low 37-47 [facility] Comment on above: Performed By: #### L 506.0250, L503.6030, L503.0105, L503.6550, L100.0100, L500.4050 ####[facility] [address] [place], [address] Hemoglobin (Bld) [Mass/Vol] 11.3 g/dL Low 12.0-15.0 [facility] Comment on above: Performed By: #### L 506.0250, L503.6030, L503.0105, L503.6550, L100.0100, L500.4050 ####[facility] [address] [place], [address] IG% 0.200 Normal 0.0-0.9 [facility] Comment on above: Result Comment: IG% - Immature Granulocytes (promyelocytes, myelocytes andmetamyelocytes) > 1% indicates that a LEFT SHIFT is Present. Performed By: #### L 506.0250, L503.6030, L503.0105, L503.6550, L100.0100, L500.4050 ####[facility] [address] [place], [address] Lymphocytes/100 WBC (Bld) 26.7 % Normal 19-41 [facility] Comment on above: Performed By: #### L 506.0250, L503.6030, L503.0105, L503.6550, L100.0100, L500.4050 ####[facility] [address] [place], [address] MCH (RBC) [Entitic mass] 31.7 pg Normal 27.0-32.0 [facility] Comment on above: Performed By: #### L 506.0250, L503.6030, L503.0105, L503.6550, L100.0100, L500.4050 ####[facility] [address] [place], [address] MCHC (RBC) [Mass/Vol] 33.9 g/dL Normal 32-36 [facility] Comment on above: Performed By: #### L 506.0250, L503.6030, L503.0105, L503.6550, L100.0100, L500.4050 ####[facility] [address] [place], [address] MCV (RBC) [Entitic vol] 93.3 fL Normal 81-99 [facility] Comment on above: Performed By: #### L 506.0250, L503.6030, L503.0105, L503.6550, L100.0100, L500.4050 ####[facility] [address] [place], [address] Monocytes/100 WBC (Bld) 7.6 % Normal 0-10 [facility] Comment on above: Performed By: #### L 506.0250, L503.6030, L503.0105, L503.6550, L100.0100, L500.4050 ####[facility] [address] [place], [address] Neutrophils/100 WBC (Bld) 62.2 % Normal 47-70 [facility] Comment on above: Performed By: #### L 506.0250, L503.6030, L503.0105, L503.6550, L100.0100, L500.4050 ####[facility] [address] [place], [address] Nucleated RBC (Bld) [#/Vol] 0 10*3/uL Normal 0-5 [facility] Comment on above: Performed By: #### L 506.0250, L503.6030, L503.0105, L503.6550, L100.0100, L500.4050 ####[facility] [address] [place], [address] Platelet mean volume (Bld) [Entitic vol] 9.5 fL Normal 6.2-12.0 [facility] Comment on above: Performed By: #### L 506.0250, L503.6030, L503.0105, L503.6550, L100.0100, L500.4050 ####[facility] [address] [place], [address] Platelets (Bld) [#/Vol] 384 10*3/uL Normal 150-450 [facility] Comment on above: Performed By: #### L 506.0250, L503.6030, L503.0105, L503.6550, L100.0100, L500.4050 ####[facility] [address] [place], [address] RBC (Bld) [#/Vol] 3.57 10*6/uL Low 4.2-5.4 [facility] Comment on above: Performed By: #### L 506.0250, L503.6030, L503.0105, L503.6550, L100.0100, L500.4050 ####[facility] [address] [place], [address] RDW SD 58.8 fl High 35.1-43.9 [facility] Comment on above: Performed By: #### L 506.0250, L503.6030, L503.0105, L503.6550, L100.0100, L500.4050 ####[facility] [address] [place], [address] WBC (Bld) [#/Vol] 5.4 10*3/uL Normal 4.4-11.0 [facility] Comment on above: Performed By: #### L 506.0250, L503.6030, L503.0105, L503.6550, L100.0100, L500.4050 ####[facility] [address] [place], [address] [facility] 06-22-2024 Albumin [Mass/Vol] 3.9 g/dL Normal 3.2-5.0 [facility] Comment on above: Order Comment: N Performed By: #### L 506.0250, L503.6030, L503.0105, L503.6550, L100.0100, L500.4050 ####[facility] [address] [place], [address] Albumin/Globulin [Mass ratio] 1.2 {ratio} Normal 0.9-2.4 [facility] Comment on above: Order Comment: N Performed By: #### L 506.0250, L503.6030, L503.0105, L503.6550, L100.0100, L500.4050 ####[facility] [address] [place], [address] ALK P 55 U/L Normal 45-117 [facility] Comment on above: Order Comment: N Performed By: #### L 506.0250, L503.6030, L503.0105, L503.6550, L100.0100, L500.4050 ####[facility] [address] [place], [address] ALT [Catalytic activity/Vol] 14 U/L Normal 13-56 [facility] Comment on above: Order Comment: N Performed By: #### L 506.0250, L503.6030, L503.0105, L503.6550, L100.0100, L500.4050 ####[facility] [address] [place], [address] AST [Catalytic activity/Vol] 13 U/L Low 15-37 [facility] Comment on above: Order Comment: N Performed By: #### L 506.0250, L503.6030, L503.0105, L503.6550, L100.0100, L500.4050 ####[facility] [address] [place], [address] Bilirubin [Mass/Vol] 0.30 mg/dL Normal 0.20-1.00 [facility] Comment on above: Order Comment: N Result Comment: For patients on eltrombopag therapy, use of Dimension [place] TBIL is not recommended. Performed By: #### L 506.0250, L503.6030, L503.0105, L503.6550, L100.0100, L500.4050 ####[facility] [address] [place], [address] BUN/CRE 26.4 RATIO High 10-20 [facility] Comment on above: Order Comment: N Performed By: #### L 506.0250, L503.6030, L503.0105, L503.6550, L100.0100, L500.4050 ####[facility] [address] [place], [address] CA,Total 9.8 mg/dL Normal 8.5-10.1 [facility] Comment on above: Order Comment: N Performed By: #### L 506.0250, L503.6030, L503.0105, L503.6550, L100.0100, L500.4050 ####[facility] [address] [place], [address] Chloride [Moles/Vol] 100 mmol/L Normal 98-107 [facility] Comment on above: Order Comment: N Performed By: #### L 506.0250, L503.6030, L503.0105, L503.6550, L100.0100, L500.4050 ####[facility] [address] [place], [address] CO2 [Moles/Vol] 26.0 mmol/L Normal 21.0-32.0 [facility] Comment on above: Order Comment: N Performed By: #### L 506.0250, L503.6030, L503.0105, L503.6550, L100.0100, L500.4050 ####[facility] [address] [place], [address] Creatinine [Mass/Vol] 0.72 mg/dL Normal 0.55-1.02 [facility] Comment on above: Order Comment: N Result Comment: The validity of the calculated GFR GFRAA in patients over70 years has not been determined. Clinical correlation isessential. Performed By: #### L 506.0250, L503.6030, L503.0105, L503.6550, L100.0100, L500.4050 ####[facility] [address] [place], [address] EST GFR - AA 100 mL/min Normal >60 [facility] Comment on above: Order Comment: N Result Comment: Afri can [place]ian GFR Calc Performed By: #### L 506.0250, L503.6030, L503.0105, L503.6550, L100.0100, L500.4050 ####[facility] [address] [place], [address] GAP 5 Normal 5-15 [facility] Comment on above: Order Comment: N Performed By: #### L 506.0250, L503.6030, L503.0105, L503.6550, L100.0100, L500.4050 ####[facility] [address] [place], [address] GFR/1.73 sq M.predicted among non-blacks MDRD (S/P/Bld) [Vol rate/Area] 82 mL/min/{1.73_m2} Normal >60 [facility] Comment on above: Order Comment: N Result Comment: Non- GFR Calc Performed By: #### L 506.0250, L503.6030, L503.0105, L503.6550, L100.0100, L500.4050 ####[facility] [address] [place], [address] Globulin (S) [Mass/Vol] 3.3 g/dL Normal 2.2-4.2 [facility] Comment on above: Order Comment: N Performed By: #### L 506.0250, L503.6030, L503.0105, L503.6550, L100.0100, L500.4050 ####[facility] [address] [place], [address] Glucose [Mass/Vol] 93 mg/dL Normal 74-106 [facility] Comment on above: Order Comment: N Performed By: #### L 506.0250, L503.6030, L503.0105, L503.6550, L100.0100, L500.4050 ####[facility] [address] [place], [address] Potassium [Moles/Vol] 4.3 mmol/L Normal 3.5-5.1 [facility] Comment on above: Order Comment: N Performed By: #### L 506.0250, L503.6030, L503.0105, L503.6550, L100.0100, L500.4050 ####[facility] [address] [place], [address] Sodium [Moles/Vol] 131 mmol/L Low 136-145 [facility] Comment on above: Order Comment: N Performed By: #### L 506.0250, L503.6030, L503.0105, L503.6550, L100.0100, L500.4050 ####[facility] [address] [place], [address] T PROT 7.2 g/dL Normal 6.4-8.2 [facility] Comment on above: Order Comment: N Performed By: #### L 506.0250, L503.6030, L503.0105, L503.6550, L100.0100, L500.4050 ####[facility] [address] [place], [address] Urea nitrogen [Mass/Vol] 19 mg/dL High 7-18 [facility] Comment on above: Order Comment: N Performed By: #### L 506.0250, L503.6030, L503.0105, L503.6550, L100.0100, L500.4050 ####[facility] [address] [place], [address] Ferritinon 06-22-2024 Ferritin [Mass/Vol] 157 ng/mL Normal 8-252 [facility] Comment on above: Order Comment: N Performed By: #### L 506.0250, L503.6030, L503.0105, L503.6550, L100.0100, L500.4050 ####[facility] [address] [place], [address] Folates, (Folic Acid)on 06-05 FOLATES 22.30 ng/mL Normal 3.1-55.4 [facility] Comment on above: Order Comment: N Result Comment: Slig ht Hemolysis, Result may be falsely increased. Performed By: #### L 506.0250, L503.6030, L503.0105, L503.6550, L100.0100, L500.4050 ####[facility] [address] [place], [address] Iron+Iron Binding Capacityon 06-22-2024 Iron [Mass/Vol] 49 ug/dL Low 50-170 [facility] Comment on above: Order Comment: N Performed By: #### L 506.0250, L503.6030, L503.0105, L503.6550, L100.0100, L500.4050 ####[facility] [address] [place], [address] IRON SATURATION 14.3 Low 15.0-55.0 [facility] Comment on above: Order Comment: N Performed By: #### L 506.0250, L503.6030, L503.0105, L503.6550, L100.0100, L500.4050 ####[facility] [address] [place], [address] TIBC 342 ug/dL Normal 250-450 [facility] Comment on above: Order Comment: N Performed By: #### L 506.0250, L503.6030, L503.0105, L503.6550, L100.0100, L500.4050 ####[facility] [address] [place], [address] Vitamin B12on 06-22-2024 Cobalamin (Vitamin B12) [Mass/Vol] 625 pg/mL Normal 211-911 [facility] Comment on above: Performed By: #### L 506.0250, L503.6030, L503.0105, L503.6550, L100.0100, L500.4050 ####[facility] [address] [place], [address] [employer] [facility] Director Office Visit Reporton 06-20-2024 [employer] [facility] Director Office Visit Report Normal [facility] Basic Metabolic Profile (BMP )on 06-14-2024 BUN/CRE 27.3 RATIO High 06-24 [facility] Comment on above: Performed By: #### L 100.0100, L500.2500 ####[facility] [address] [place], [address] CA,Total 8.8 mg/dL Normal 8.5-10.1 [facility] Comment on above: Performed By: #### L 100.0100, L500.2500 ####[facility] [address] [place], [address] Chloride [Moles/Vol] 99 mmol/L Normal 98-107 [facility] Comment on above: Performed By: #### L 100.0100, L500.2500 ####[facility] [address] [place], [address] CO2 [Moles/Vol] 26.0 mmol/L Normal 21.0-32.0 [facility] Comment on above: Performed By: #### L 100.0100, L500.2500 ####[facility] [address] [place], [address] Creatinine [Mass/Vol] 0.62 mg/dL Normal 0.55-1.02 [facility] Comment on above: Result Comment: The validity of the calculated GFR GFRAA in patients over70 years has not been determined. Clinical correlation isessential. Performed By: #### L 100.0100, L500.2500 ####[facility] [address] [place], [address] ECRCL 42.49 ml/min Normal [facility] Comment on above: Performed By: #### L 100.0100, L500.2500 ####[facility] [address] [place], [address] EST GFR - AA 118 mL/min Normal >60 [facility] Comment on above: Result Comment: Afri can [place] GFR Calc Performed By: #### L 100.0100, L500.2500 ####[facility] [address] [place], [address] GAP 7 Normal 5-15 [facility] Comment on above: Performed By: #### L 100.0100, L500.2500 ####[facility] [address] [place], [address] GFR/1.73 sq M.predicted among non-blacks MDRD (S/P/Bld) [Vol rate/Area] 98 mL/min/{1.73_m2} Normal >60 [facility] Comment on above: Result Comment: Non- GFR Calc Performed By: #### L 100.0100, L500.2500 ####[facility] [address] [place], [address] Glucose [Mass/Vol] 86 mg/dL Normal 74-106 [facility] Comment on above: Performed By: #### L 100.0100, L500.2500 ####[facility] [address] [place], [address] Potassium [Moles/Vol] 4.1 mmol/L Normal 3.5-5.1 [facility] Comment on above: Performed By: #### L 100.0100, L500.2500 ####[facility] [address] [place], [address] Sodium [Moles/Vol] 132 mmol/L Low 136-145 [facility] Comment on above: Performed By: #### L 100.0100, L500.2500 ####[facility] [address] [place], [address] Urea nitrogen [Mass/Vol] 17 mg/dL Normal 7-18 [facility] Comment on above: Performed By: #### L 100.0100, L500.2500 ####[facility] [address] [place], [address] CBC W/Diff, Automatedon 10-1 0-2024 Absolute Lymph 2.19 X10 3/uL Normal 0.83-4.51 [facility] Comment on above: Performed By: #### L 100.0100, L500.2500 ####[facility] [address] [place], [address] Absolute Neut 4.0 X10 3/uL Normal 2.0-7.7 [facility] Comment on above: Performed By: #### L 100.0100, L500.2500 ####[facility] [address] [place], [address] Basophils/100 WBC (Bld) 0.7 % Normal 0-1 [facility] Comment on above: Performed By: #### L 100.0100, L500.2500 ####[facility] [address] [place], [address] Eosinophils/100 WBC (Bld) 4.4 % Normal 0-5 [facility] Comment on above: Performed By: #### L 100.0100, L500.2500 ####[facility] [address] [place], [address] Erythrocyte distribution width (RBC) [Ratio] 17.3 % High 11.6-14.6 [facility] Comment on above: Performed By: #### L 100.0100, L500.2500 ####[facility] [address] [place], [address] Hematocrit (Bld) [Volume fraction] 31.2 % Low 37-47 [facility] Comment on above: Performed By: #### L 100.0100, L500.2500 ####[facility] [address] [place], [address] Hemoglobin (Bld) [Mass/Vol] 10.3 g/dL Low 12.0-15.0 [facility] Comment on above: Performed By: #### L 100.0100, L500.2500 ####[facility] [address] [place], [address] IG% 0.300 Normal 0.0-0.9 [facility] Comment on above: Result Comment: IG% - Immature Granulocytes (promyelocytes, myelocytes andmetamyelocytes) > 1% indicates that a LEFT SHIFT is Present. Performed By: #### L 100.0100, L500.2500 ####[facility] [address] [place], [address] Lymphocytes/100 WBC (Bld) 30.4 % Normal 19-41 [facility] Comment on above: Performed By: #### L 100.0100, L500.2500 ####[facility] [address] [place], [address] MCH (RBC) [Entitic mass] 30.7 pg Normal 27.0-32.0 [facility] Comment on above: Performed By: #### L 100.0100, L500.2500 ####[facility] [address] [place], [address] MCHC (RBC) [Mass/Vol] 33.0 g/dL Normal 32-36 [facility] Comment on above: Performed By: #### L 100.0100, L500.2500 ####[facility] [address] [place], [address] MCV (RBC) [Entitic vol] 92.9 fL Normal 81-99 [facility] Comment on above: Performed By: #### L 100.0100, L500.2500 ####[facility] [address] [place], [address] Monocytes/100 WBC (Bld) 8.3 % Normal 0-10 [facility] Comment on above: Performed By: #### L 100.0100, L500.2500 ####[facility] [address] [place], [address] Neutrophils/100 WBC (Bld) 55.9 % Normal 47-70 [facility] Comment on above: Performed By: #### L 100.0100, L500.2500 ####[facility] [address] [place], [address] Nucleated RBC (Bld) [#/Vol] 0 10*3/uL Normal 0-5 [facility] Comment on above: Performed By: #### L 100.0100, L500.2500 ####[facility] [address] [place], [address] Platelet mean volume (Bld) [Entitic vol] 9.0 fL Normal 6.2-12.0 [facility] Comment on above: Performed By: #### L 100.0100, L500.2500 ####[facility] [address] [place], [address] Platelets (Bld) [#/Vol] 287 10*3/uL Normal 150-450 [facility] Comment on above: Performed By: #### L 100.0100, L500.2500 ####[facility] [address] [place], [address] RBC (Bld) [#/Vol] 3.36 10*6/uL Low 4.2-5.4 [facility] Comment on above: Performed By: #### L 100.0100, L500.2500 ####[facility] [address] [place], [address] RDW SD 59.5 fl High 35.1-43.9 [facility] Comment on above: Performed By: #### L 100.0100, L500.2500 ####[facility] [address] [place], [address] WBC (Bld) [#/Vol] 7.2 10*3/uL Normal 4.4-11.0 [facility] Comment on above: Performed By: #### L 100.0100, L500.2500 ####[facility] [address] [place], [address] Discharge Instructionon 06-05 Discharge Instruction Normal [facility] 12 Lead EKGon 06-13-2024 12 Lead EKG Normal [facility] CBC W/Diff, Automatedon -0 Absolute Lymph 1.51 X10 3/uL Normal 0.83-4.51 [facility] Comment on above: Performed By: #### L 100.0100 ####[facility] [address] [place], [address] Absolute Neut 4.2 X10 3/uL Normal 2.0-7.7 [facility] Comment on above: Performed By: #### L 100.0100 ####[facility] [address] [place], [address] Basophils/100 WBC (Bld) 0.8 % Normal 0-1 [facility] Comment on above: Performed By: #### L 100.0100 ####[facility] [address] [place], [address] Eosinophils/100 WBC (Bld) 4.3 % Normal 0-5 [facility] Comment on above: Performed By: #### L 100.0100 ####[facility] [address] [place], [address] Erythrocyte distribution width (RBC) [Ratio] 17.2 % High 11.6-14.6 [facility] Comment on above: Performed By: #### L 100.0100 ####[facility] [address] [place], [address] Hematocrit (Bld) [Volume fraction] 29.9 % Low 37-47 [facility] Comment on above: Performed By: #### L 100.0100 ####[facility] [address] [place], [address] Hemoglobin (Bld) [Mass/Vol] 9.9 g/dL Low 12.0-15.0 [facility] Comment on above: Performed By: #### L 100.0100 ####[facility] [address] [place], [address] IG% 0.300 Normal 0.0-0.9 [facility] Comment on above: Result Comment: IG% - Immature Granulocytes (promyelocytes, myelocytes andmetamyelocytes) > 1% indicates that a LEFT SHIFT is Present. Performed By: #### L 100.0100 ####[facility] [address] [place], [address] Lymphocytes/100 WBC (Bld) 23.1 % Normal 19-41 [facility] Comment on above: Performed By: #### L 100.0100 ####[facility] [address] [place], [address] MCH (RBC) [Entitic mass] 30.7 pg Normal 27.0-32.0 [facility] Comment on above: Performed By: #### L 100.0100 ####[facility] [address] [place], [address] MCHC (RBC) [Mass/Vol] 33.1 g/dL Normal 32-36 [facility] Comment on above: Performed By: #### L 100.0100 ####[facility] [address] [place], [address] MCV (RBC) [Entitic vol] 92.9 fL Normal 81-99 [facility] Comment on above: Performed By: #### L 100.0100 ####[facility] [address] [place], [address] Monocytes/100 WBC (Bld) 8.1 % Normal 0-10 [facility] Comment on above: Performed By: #### L 100.0100 ####[facility] [address] [place], [address] Neutrophils/100 WBC (Bld) 63.4 % Normal 47-70 [facility] Comment on above: Performed By: #### L 100.0100 ####[facility] [address] [place], [address] Nucleated RBC (Bld) [#/Vol] 0 10*3/uL Normal 0-5 [facility] Comment on above: Performed By: #### L 100.0100 ####[facility] [address] [place], [address] Platelet mean volume (Bld) [Entitic vol] 9.3 fL Normal 6.2-12.0 [facility] Comment on above: Performed By: #### L 100.0100 ####[facility] [address] [place], [address] Platelets (Bld) [#/Vol] 279 10*3/uL Normal 150-450 [facility] Comment on above: Performed By: #### L 100.0100 ####[facility] [address] [place], [address] RBC (Bld) [#/Vol] 3.22 10*6/uL Low 4.2-5.4 [facility] Comment on above: Performed By: #### L 100.0100 ####[facility] [address] [place], [address] RDW SD 58.6 fl High 35.1-43.9 [facility] Comment on above: Performed By: #### L 100.0100 ####[facility] [address] [place], [place], [address] WBC (Bld) [#/Vol] 6.6 10*3/uL Normal 4.4-11.0 [facility] Comment on above: Performed By: #### L 100.0100 ####[facility] [address] [place], [place], [address] Carcinoembryonic Antigenon 1 CEA 3.0 ng/mL Normal 0.0-4.7 [facility] Comment on above: Result Comment: Nons mokers <3.9 Smokers <5.6[employer] Electrochemiluminescence Immunoassay(ECLIA)Values obtained with different assay methods or kitscannot be used interchangeably. Results cannot beinterpreted as absolute evidence of the presence orabsence of malignant disease.Performed at: [email or web address] [id number] Director: Pedro Lorenzo PhD, Phone: [phone] Performed By: #### L 4416.3739, BTS ####[facility] [address] [place], [place], [address] EGD Reporton 06-13-2024 EGD Report Normal [facility] MR/PN.GIon 06-13-2024 MR/PN.GI Normal [facility] MR/POSTOP.ANEon 06-13-2024 MR/POSTOP.ANE Normal [facility] MR/ATGESULR8wa 06-13-2024 MR/POSTOPAN2 Normal [facility] Surgery Specimen Level Neri 06-13-2024 Surgery Specimen Level IV Normal [facility] Comment on above: Performed By: #### P SUIV ####[facility] [address] [place], [place], [address] CBC W/Diff, Automatedon 10- Absolute Lymph 2.32 X10 3/uL Normal 0.83-4.51 [facility] Comment on above: Performed By: #### L 500.4050, L501.5200, L501.2300, L501.9520, L100.0100 ####[facility] [address] [place], [address] Absolute Neut 2.4 X10 3/uL Normal 2.0-7.7 [facility] Comment on above: Performed By: #### L 500.4050, L501.5200, L501.2300, L501.9520, L100.0100 ####[facility] [address] [place], [address] Basophils/100 WBC (Bld) 0.9 % Normal 0-1 [facility] Comment on above: Performed By: #### L 500.4050, L501.5200, L501.2300, L501.9520, L100.0100 ####[facility] [address] [place], [address] Eosinophils/100 WBC (Bld) 3.8 % Normal 0-5 [facility] Comment on above: Performed By: #### L 500.4050, L501.5200, L501.2300, L501.9520, L100.0100 ####[facility] [address] [place], [address] Erythrocyte distribution width (RBC) [Ratio] 17.1 % High 11.6-14.6 [facility] Comment on above: Performed By: #### L 500.4050, L501.5200, L501.2300, L501.9520, L100.0100 ####[facility] [address] [place], [address] Hematocrit (Bld) [Volume fraction] 31.3 % Low 37-47 [facility] Comment on above: Performed By: #### L 500.4050, L501.5200, L501.2300, L501.9520, L100.0100 ####[facility] [address] [place], [address] Hemoglobin (Bld) [Mass/Vol] 10.2 g/dL Low 12.0-15.0 [facility] Comment on above: Performed By: #### L 500.4050, L501.5200, L501.2300, L501.9520, L100.0100 ####[facility] [address] [place], [address] IG% 0.200 Normal 0.0-0.9 [facility] Comment on above: Result Comment: IG% - Immature Granulocytes (promyelocytes, myelocytes andmetamyelocytes) > 1% indicates that a LEFT SHIFT is Present. Performed By: #### L 500.4050, L501.5200, L501.2300, L501.9520, L100.0100 ####[facility] [address] [place], [address] Lymphocytes/100 WBC (Bld) 41.7 % High 19-41 [facility] Comment on above: Performed By: #### L 500.4050, L501.5200, L501.2300, L501.9520, L100.0100 ####[facility] [address] [place], [address] MCH (RBC) [Entitic mass] 30.7 pg Normal 27.0-32.0 [facility] Comment on above: Performed By: #### L 500.4050, L501.5200, L501.2300, L501.9520, L100.0100 ####[facility] [address] [place], [address] MCHC (RBC) [Mass/Vol] 32.6 g/dL Normal 32-36 [facility] Comment on above: Performed By: #### L 500.4050, L501.5200, L501.2300, L501.9520, L100.0100 ####[facility] [address] [place], [address] MCV (RBC) [Entitic vol] 94.3 fL Normal 81-99 [facility] Comment on above: Performed By: #### L 500.4050, L501.5200, L501.2300, L501.9520, L100.0100 ####[facility] [address] [place], [address] Monocytes/100 WBC (Bld) 9.7 % Normal 0-10 [facility] Comment on above: Performed By: #### L 500.4050, L501.5200, L501.2300, L501.9520, L100.0100 ####[facility] [address] [place], [address] Neutrophils/100 WBC (Bld) 43.7 % Low 47-70 [facility] Comment on above: Performed By: #### L 500.4050, L501.5200, L501.2300, L501.9520, L100.0100 ####[facility] [address] [place], [address] Nucleated RBC (Bld) [#/Vol] 0 10*3/uL Normal 0-5 [facility] Comment on above: Performed By: #### L 500.4050, L501.5200, L501.2300, L501.9520, L100.0100 ####[facility] [address] [place], [address] Platelet mean volume (Bld) [Entitic vol] 9.3 fL Normal 6.2-12.0 [facility] Comment on above: Performed By: #### L 500.4050, L501.5200, L501.2300, L501.9520, L100.0100 ####[facility] [address] [place], [address] Platelets (Bld) [#/Vol] 295 10*3/uL Normal 150-450 [facility] Comment on above: Performed By: #### L 500.4050, L501.5200, L501.2300, L501.9520, L100.0100 ####[facility] [address] [place], [address] RBC (Bld) [#/Vol] 3.32 10*6/uL Low 4.2-5.4 [facility] Comment on above: Performed By: #### L 500.4050, L501.5200, L501.2300, L501.9520, L100.0100 ####[facility] [address] [place], [address] RDW SD 59.5 fl High 35.1-43.9 [facility] Comment on above: Performed By: #### L 500.4050, L501.5200, L501.2300, L501.9520, L100.0100 ####[facility] [address] [place], [address] WBC (Bld) [#/Vol] 5.6 10*3/uL Normal 4.4-11.0 [facility] Comment on above: Performed By: #### L 500.4050, L501.5200, L501.2300, L501.9520, L100.0100 ####[facility] [address] [place], [address] Comprehensive Metabolic Prof ilon 06-12-2024 Albumin [Mass/Vol] 3.4 g/dL Normal 3.2-5.0 [facility] Comment on above: Performed By: #### L 500.4050, L501.5200, L501.2300, L501.9520, L100.0100 ####[facility] [address] [place], [address] Albumin/Globulin [Mass ratio] 1.2 {ratio} Normal 0.9-2.4 [facility] Comment on above: Performed By: #### L 500.4050, L501.5200, L501.2300, L501.9520, L100.0100 ####[facility] [address] [place], [address] ALK P 42 U/L Low 45-117 [facility] Comment on above: Performed By: #### L 500.4050, L501.5200, L501.2300, L501.9520, L100.0100 ####[facility] [address] [place], [address] ALT [Catalytic activity/Vol] 14 U/L Normal 13-56 [facility] Comment on above: Performed By: #### L 500.4050, L501.5200, L501.2300, L501.9520, L100.0100 ####[facility] [address] [place], [address] AST [Catalytic activity/Vol] 11 U/L Low 15-37 [facility] Comment on above: Performed By: #### L 500.4050, L501.5200, L501.2300, L501.9520, L100.0100 ####[facility] [address] [place], [address] Bilirubin [Mass/Vol] 0.40 mg/dL Normal 0.20-1.00 [facility] Comment on above: Result Comment: For patients on eltrombopag therapy, use of Dimension [place] TBIL is not recommended. Performed By: #### L 500.4050, L501.5200, L501.2300, L501.9520, L100.0100 ####[facility] [address] [place], [address] BUN/CRE 42.8 RATIO High 10-20 [facility] Comment on above: Performed By: #### L 500.4050, L501.5200, L501.2300, L501.9520, L100.0100 ####[facility] [address] [place], [address] CA,Total 8.9 mg/dL Normal 8.5-10.1 [facility] Comment on above: Performed By: #### L 500.4050, L501.5200, L501.2300, L501.9520, L100.0100 ####[facility] [address] [place], [address] Chloride [Moles/Vol] 100 mmol/L Normal 98-107 [facility] Comment on above: Performed By: #### L 500.4050, L501.5200, L501.2300, L501.9520, L100.0100 ####[facility] [address] [place], [address] CO2 [Moles/Vol] 28.0 mmol/L Normal 21.0-32.0 [facility] Comment on above: Performed By: #### L 500.4050, L501.5200, L501.2300, L501.9520, L100.0100 ####[facility] [address] [place], [address] Creatinine [Mass/Vol] 0.54 mg/dL Low 0.55-1.02 [facility] Comment on above: Result Comment: The validity of the calculated GFR GFRAA in patients over70 years has not been determined. Clinical correlation isessential. Performed By: #### L 500.4050, L501.5200, L501.2300, L501.9520, L100.0100 ####[facility] [address] [place], [address] ECRCL 43.44 ml/min Normal [facility] Comment on above: Performed By: #### L 500.4050, L501.5200, L501.2300, L501.9520, L100.0100 ####[facility] [address] [place], [address] EST GFR - AA 140 mL/min Normal >60 [facility] Comment on above: Result Comment: Afri can [place] GFR Calc Performed By: #### L 500.4050, L501.5200, L501.2300, L501.9520, L100.0100 ####[facility] [address] [place], [address] GAP 4 Low 5-15 [facility] Comment on above: Performed By: #### L 500.4050, L501.5200, L501.2300, L501.9520, L100.0100 ####[facility] [address] [place], [address] GFR/1.73 sq M.predicted among non-blacks MDRD (S/P/Bld) [Vol rate/Area] 116 mL/min/{1.73_m2} Normal >60 [facility] Comment on above: Result Comment: Non- GFR Calc Performed By: #### L 500.4050, L501.5200, L501.2300, L501.9520, L100.0100 ####[facility] [address] [place], [address] Globulin (S) [Mass/Vol] 2.9 g/dL Normal 2.2-4.2 [facility] Comment on above: Performed By: #### L 500.4050, L501.5200, L501.2300, L501.9520, L100.0100 ####[facility] [address] [place], [address] Glucose [Mass/Vol] 89 mg/dL Normal 74-106 [facility] Comment on above: Performed By: #### L 500.4050, L501.5200, L501.2300, L501.9520, L100.0100 ####[facility] [address] [place], [address] Potassium [Moles/Vol] 3.8 mmol/L Normal 3.5-5.1 [facility] Comment on above: Performed By: #### L 500.4050, L501.5200, L501.2300, L501.9520, L100.0100 ####[facility] [address] [place], [address] Sodium [Moles/Vol] 131 mmol/L Low 136-145 [facility] Comment on above: Performed By: #### L 500.4050, L501.5200, L501.2300, L501.9520, L100.0100 ####[facility] [address] [place], [address] T PROT 6.3 g/dL Low 6.4-8.2 [facility] Comment on above: Performed By: #### L 500.4050, L501.5200, L501.2300, L501.9520, L100.0100 ####[facility] [address] [place], [address] Urea nitrogen [Mass/Vol] 23 mg/dL High 7-18 [facility] Comment on above: Performed By: #### L 500.4050, L501.5200, L501.2300, L501.9520, L100.0100 ####[facility] [address] [place], [address] Emergency Department Summary on 06-12-2024 Emergency Department Summary Normal [facility] H AND P Exam - Hospitaliston 06-12-2024 H&P Exam - Hospitalist Normal [facility] Lactic Acidon 06-12-2024 Lactate [Moles/Vol] 0.6 mmol/L Normal 0.4-1.9 [facility] Comment on above: Order Comment: Y Performed By: #### L 300.4310, L300.3900, L100.0100, L503.6005, L500.2500, M100.7900 ####[facility] [address] [place], [address] MR/CON.PCM.GIon 06-12-2024 MR/CON.PCM.GI Normal [facility] Magnesiumon 06-12-2024 Magnesium [Mass/Vol] 1.8 mg/dL Normal 1.6-2.6 [facility] Comment on above: Performed By: #### L 500.4050, L501.5200, L501.2300, L501.9520, L100.0100 ####[facility] [address] [place], [address] Phosphoruson 06-12-2024 Phosphate [Mass/Vol] 3.1 mg/dL Normal 2.5-4.9 [facility] Comment on above: Performed By: #### L 500.4050, L501.5200, L501.2300, L501.9520, L100.0100 ####[facility] [address] [place], [address] Stool Occult Blood iFOBon STOB Positive Normal [facility] Comment on above: Performed By: #### L 300.4310, L300.3900, L100.0100, L503.6005, L500.2500, M100.7900 ####[facility] [address] [place], [address] Thyroid Stim Hormone (TSH)on 06-12-2024 TSH 1.270 uIU/mL Normal 0.358-3.74 0 [facility] Comment on above: Performed By: #### L 500.4050, L501.5200, L501.2300, L501.9520, L100.0100 ####[facility] [address] [place], [address] Type AND Screenon 06-12-2024 ABO and Rh group Nom (Bld) Blood group A Rh(D) negative Normal [facility] Comment on above: Order Comment: HGI Performed By: #### L 3100.2300, BTS ####[facility] [address] [place], [address] Basic Metabolic Profile (BMP )on 06-11-2024 BUN/CRE 42.8 RATIO High 10-20 [facility] Comment on above: Performed By: #### L 300.4310, L300.3900, L100.0100, L503.6005, L500.2500, M100.7900 ####[facility] [address] [place], [address] CA,Total 9.1 mg/dL Normal 8.5-10.1 [facility] Comment on above: Performed By: #### L 300.4310, L300.3900, L100.0100, L503.6005, L500.2500, M100.7900 ####[facility] [address] [place], [address] Chloride [Moles/Vol] 100 mmol/L Normal 98-107 [facility] Comment on above: Performed By: #### L 300.4310, L300.3900, L100.0100, L503.6005, L500.2500, M100.7900 ####[facility] [address] [place], [address] CO2 [Moles/Vol] 26.0 mmol/L Normal 21.0-32.0 [facility] Comment on above: Performed By: #### L 300.4310, L300.3900, L100.0100, L503.6005, L500.2500, M100.7900 ####[facility] [address] [place], [address] Creatinine [Mass/Vol] 0.65 mg/dL Normal 0.55-1.02 [facility] Comment on above: Result Comment: The validity of the calculated GFR GFRAA in patients over70 years has not been determined. Clinical correlation isessential. Performed By: #### L 300.4310, L300.3900, L100.0100, L503.6005, L500.2500, M100.7900 ####[facility] [address] [place], [address] ECRCL 43.88 ml/min Normal [facility] Comment on above: Performed By: #### L 300.4310, L300.3900, L100.0100, L503.6005, L500.2500, M100.7900 ####[facility] [address] [place], [address] EST GFR - AA 112 mL/min Normal >60 [facility] Comment on above: Result Comment: Afri can [place] GFR Calc Performed By: #### L 300.4310, L300.3900, L100.0100, L503.6005, L500.2500, M100.7900 ####[facility] [address] [place], [address] GAP 7 Normal 5-15 [facility] Comment on above: Performed By: #### L 300.4310, L300.3900, L100.0100, L503.6005, L500.2500, M100.7900 ####[facility] [address] [place], [address] GFR/1.73 sq M.predicted among non-blacks MDRD (S/P/Bld) [Vol rate/Area] 92 mL/min/{1.73_m2} Normal >60 [facility] Comment on above: Result Comment: Non- GFR Calc Performed By: #### L 300.4310, L300.3900, L100.0100, L503.6005, L500.2500, M100.7900 ####[facility] [address] [place], [address] Glucose [Mass/Vol] 106 mg/dL Normal 74-106 [facility] Comment on above: Result Comment: Fast ing Glucose result from 100 to 125 mg/dLsuggests IMPAIRED HOMEOSTASIS per A.D.A. criteria. Performed By: #### L 300.4310, L300.3900, L100.0100, L503.6005, L500.2500, M100.7900 ####[facility] [address] [place], [address] Potassium [Moles/Vol] 4.5 mmol/L Normal 3.5-5.1 [facility] Comment on above: Performed By: #### L 300.4310, L300.3900, L100.0100, L503.6005, L500.2500, M100.7900 ####[facility] [address] [place], [address] Sodium [Moles/Vol] 133 mmol/L Low 136-145 [facility] Comment on above: Performed By: #### L 300.4310, L300.3900, L100.0100, L503.6005, L500.2500, M100.7900 ####[facility] [address] [place], [address] Urea nitrogen [Mass/Vol] 28 mg/dL High 7-18 [facility] Comment on above: Performed By: #### L 300.4310, L300.3900, L100.0100, L503.6005, L500.2500, M100.7900 ####[facility] [address] [place], [address] CBC W/Diff, Automatedon 10-0 Absolute Lymph 2.47 X10 3/uL Normal 0.83-4.51 [facility] Comment on above: Performed By: #### L 300.4310, L300.3900, L100.0100, L503.6005, L500.2500, M100.7900 ####[facility] [address] [place], [address] Absolute Neut 2.7 X10 3/uL Normal 2.0-7.7 [facility] Comment on above: Performed By: #### L 300.4310, L300.3900, L100.0100, L503.6005, L500.2500, M100.7900 ####[facility] [address] [place], [address] Basophils/100 WBC (Bld) 0.8 % Normal 0-1 [facility] Comment on above: Performed By: #### L 300.4310, L300.3900, L100.0100, L503.6005, L500.2500, M100.7900 ####[facility] [address] [place], [address] Eosinophils/100 WBC (Bld) 2.7 % Normal 0-5 [facility] Comment on above: Performed By: #### L 300.4310, L300.3900, L100.0100, L503.6005, L500.2500, M100.7900 ####[facility] [address] [place], [address] Erythrocyte distribution width (RBC) [Ratio] 16.9 % High 11.6-14.6 [facility] Comment on above: Performed By: #### L 300.4310, L300.3900, L100.0100, L503.6005, L500.2500, M100.7900 ####[facility] [address] [place], [address] Hematocrit (Bld) [Volume fraction] 30.8 % Low 37-47 [facility] Comment on above: Performed By: #### L 300.4310, L300.3900, L100.0100, L503.6005, L500.2500, M100.7900 ####[facility] [address] [place], [address] Hemoglobin (Bld) [Mass/Vol] 10.1 g/dL Low 12.0-15.0 [facility] Comment on above: Performed By: #### L 300.4310, L300.3900, L100.0100, L503.6005, L500.2500, M100.7900 ####[facility] [address] [place], [address] IG% 0.000 Normal 0.0-0.9 [facility] Comment on above: Result Comment: IG% - Immature Granulocytes (promyelocytes, myelocytes andmetamyelocytes) > 1% indicates that a LEFT SHIFT is Present. Performed By: #### L 300.4310, L300.3900, L100.0100, L503.6005, L500.2500, M100.7900 ####[facility] [address] [place], [address] Lymphocytes/100 WBC (Bld) 41.6 % High 19-41 [facility] Comment on above: Performed By: #### L 300.4310, L300.3900, L100.0100, L503.6005, L500.2500, M100.7900 ####[facility] [address] [place], [address] MCH (RBC) [Entitic mass] 30.6 pg Normal 27.0-32.0 [facility] Comment on above: Performed By: #### L 300.4310, L300.3900, L100.0100, L503.6005, L500.2500, M100.7900 ####[facility] [address] [place], [address] MCHC (RBC) [Mass/Vol] 32.8 g/dL Normal 32-36 [facility] Comment on above: Performed By: #### L 300.4310, L300.3900, L100.0100, L503.6005, L500.2500, M100.7900 ####[facility] [address] [place], [address] MCV (RBC) [Entitic vol] 93.3 fL Normal 81-99 [facility] Comment on above: Performed By: #### L 300.4310, L300.3900, L100.0100, L503.6005, L500.2500, M100.7900 ####[facility] [address] [place], [address] Monocytes/100 WBC (Bld) 9.3 % Normal 0-10 [facility] Comment on above: Performed By: #### L 300.4310, L300.3900, L100.0100, L503.6005, L500.2500, M100.7900 ####[facility] [address] [place], [address] Neutrophils/100 WBC (Bld) 45.6 % Low 47-70 [facility] Comment on above: Performed By: #### L 300.4310, L300.3900, L100.0100, L503.6005, L500.2500, M100.7900 ####[facility] [address] [place], [address] Nucleated RBC (Bld) [#/Vol] 0 10*3/uL Normal 0-5 [facility] Comment on above: Performed By: #### L 300.4310, L300.3900, L100.0100, L503.6005, L500.2500, M100.7900 ####[facility] [address] [place], [address] Platelet mean volume (Bld) [Entitic vol] 8.8 fL Normal 6.2-12.0 [facility] Comment on above: Performed By: #### L 300.4310, L300.3900, L100.0100, L503.6005, L500.2500, M100.7900 ####[facility] [address] [place], [address] Platelets (Bld) [#/Vol] 276 10*3/uL Normal 150-450 [facility] Comment on above: Performed By: #### L 300.4310, L300.3900, L100.0100, L503.6005, L500.2500, M100.7900 ####[facility] [address] [place], [address] RBC (Bld) [#/Vol] 3.30 10*6/uL Low 4.2-5.4 [facility] Comment on above: Performed By: #### L 300.4310, L300.3900, L100.0100, L503.6005, L500.2500, M100.7900 ####[facility] [address] [place], [address] RDW SD 57.5 fl High 35.1-43.9 [facility] Comment on above: Performed By: #### L 300.4310, L300.3900, L100.0100, L503.6005, L500.2500, M100.7900 ####[facility] [address] [place], [address] WBC (Bld) [#/Vol] 5.9 10*3/uL Normal 4.4-11.0 [facility] Comment on above: Performed By: #### L 300.4310, L300.3900, L100.0100, L503.6005, L500.2500, M100.7900 ####[facility] [address] [place], [address] CTA Abd/Pelvis W/WO Contrast on 06-11-2024 CTA Abd/Pelvis W/WO Contrast Normal [facility] Partial Thromboplast Timeon 06-11-2024 aPTT Coag (Bld) [Time] 31.0 s Normal 24.1-36.2 [facility] Comment on above: Performed By: #### L 300.4310, L300.3900, L100.0100, L503.6005, L500.2500, M100.7900 ####[facility] [address] [place], [address] Prothrombin Time w/INRon INR Coag (PPP) [Relative time] 1.0 {INR} Normal [facility] Comment on above: Performed By: #### L 300.4310, L300.3900, L100.0100, L503.6005, L500.2500, M100.7900 ####[facility] [address] [place], [address] PT Coag (PPP) [Time] 13.4 s Normal 11.7-14.9 [facility] Comment on above: Performed By: #### L 300.4310, L300.3900, L100.0100, L503.6005, L500.2500, M100.7900 ####[facility] [address] [place], [address] Abdomen/Pelvis W IV Cont ONL Yon 05-21-2024 Abdomen/Pelvis W IV Cont ONLY Normal [facility] Amylaseon 05-21-2024 NADINE 42 U/L Normal 25-115 [facility] Comment on above: Performed By: #### L 501.2400 ####[facility] [address] [place], [address] CBC W/Diff, Automatedon 05-06 Absolute Lymph 2.92 X10 3/uL Normal 0.83-4.51 [facility] Comment on above: Performed By: #### L 503.6005, L100.0100, L501.2450, L500.4050 ####[facility] [address] [place], [address] Absolute Neut 3.8 X10 3/uL Normal 2.0-7.7 [facility] Comment on above: Performed By: #### L 503.6005, L100.0100, L501.2450, L500.4050 ####[facility] [address] [place], [address] Basophils/100 WBC (Bld) 0.7 % Normal 0-1 [facility] Comment on above: Performed By: #### L 503.6005, L100.0100, L501.2450, L500.4050 ####[facility] [address] [place], [address] Eosinophils/100 WBC (Bld) 1.8 % Normal 0-5 [facility] Comment on above: Performed By: #### L 503.6005, L100.0100, L501.2450, L500.4050 ####[facility] [address] [place], [address] Erythrocyte distribution width (RBC) [Ratio] 17.1 % High 11.6-14.6 [facility] Comment on above: Performed By: #### L 503.6005, L100.0100, L501.2450, L500.4050 ####[facility] [address] [place], [address] Hematocrit (Bld) [Volume fraction] 33.0 % Low 37-47 [facility] Comment on above: Performed By: #### L 503.6005, L100.0100, L501.2450, L500.4050 ####[facility] [address] [place], [address] Hemoglobin (Bld) [Mass/Vol] 10.7 g/dL Low 12.0-15.0 [facility] Comment on above: Performed By: #### L 503.6005, L100.0100, L501.2450, L500.4050 ####[facility] [address] [place], [address] IG% 0.300 Normal 0.0-0.9 [facility] Comment on above: Result Comment: IG% - Immature Granulocytes (promyelocytes, myelocytes andmetamyelocytes) > 1% indicates that a LEFT SHIFT is Present. Performed By: #### L 503.6005, L100.0100, L501.2450, L500.4050 ####[facility] [address] [place], [address] Lymphocytes/100 WBC (Bld) 38.5 % Normal 19-41 [facility] Comment on above: Performed By: #### L 503.6005, L100.0100, L501.2450, L500.4050 ####[facility] [address] [place], [address] [facility] (RBC) [Entitic mass] 30.3 pg Normal 27.0-32.0 [facility] Comment on above: Performed By: #### L 503.6005, L100.0100, L501.2450, L500.4050 ####[facility] [address] [place], [address] MCHC (RBC) [Mass/Vol] 32.4 g/dL Normal 32-36 [facility] Comment on above: Performed By: #### L 503.6005, L100.0100, L501.2450, L500.4050 ####[facility] [address] [place], [address] MCV (RBC) [Entitic vol] 93.5 fL Normal 81-99 [facility] Comment on above: Performed By: #### L 503.6005, L100.0100, L501.2450, L500.4050 ####[facility] [address] [place], [address] Monocytes/100 WBC (Bld) 8.4 % Normal 0-10 [facility] Comment on above: Performed By: #### L 503.6005, L100.0100, L501.2450, L500.4050 ####[facility] [address] [place], [address] Neutrophils/100 WBC (Bld) 50.3 % Normal 47-70 [facility] Comment on above: Performed By: #### L 503.6005, L100.0100, L501.2450, L500.4050 ####[facility] [address] [place], [address] Nucleated RBC (Bld) [#/Vol] 0 10*3/uL Normal 0-5 [facility] Comment on above: Performed By: #### L 503.6005, L100.0100, L501.2450, L500.4050 ####[facility] [address] [place], [address] Platelet mean volume (Bld) [Entitic vol] 9.3 fL Normal 6.2-12.0 [facility] Comment on above: Performed By: #### L 503.6005, L100.0100, L501.2450, L500.4050 ####[facility] [address] [place], [address] Platelets (Bld) [#/Vol] 290 10*3/uL Normal 150-450 [facility] Comment on above: Performed By: #### L 503.6005, L100.0100, L501.2450, L500.4050 ####[facility] [address] [place], [address] RBC (Bld) [#/Vol] 3.53 10*6/uL Low 4.2-5.4 [facility] Comment on above: Performed By: #### L 503.6005, L100.0100, L501.2450, L500.4050 ####[facility] [address] [place], [address] RDW SD 58.5 fl High 35.1-43.9 [facility] Comment on above: Performed By: #### L 503.6005, L100.0100, L501.2450, L500.4050 ####[facility] [address] [place], [address] WBC (Bld) [#/Vol] 7.6 10*3/uL Normal 4.4-11.0 [facility] Comment on above: Performed By: #### L 503.6005, L100.0100, L501.2450, L500.4050 ####[facility] [address] [place], [address] Comprehensive Metabolic [facility] 05-21-2024 Albumin [Mass/Vol] 3.3 g/dL Normal 3.2-5.0 [facility] Comment on above: Performed By: #### L 503.6005, L100.0100, L501.2450, L500.4050 ####[facility] [address] [place], [address] Albumin/Globulin [Mass ratio] 1.1 {ratio} Normal 0.9-2.4 [facility] Comment on above: Performed By: #### L 503.6005, L100.0100, L501.2450, L500.4050 ####[facility] [address] [place], [address] ALK P 52 U/L Normal 45-117 [facility] Comment on above: Performed By: #### L 503.6005, L100.0100, L501.2450, L500.4050 ####[facility] [address] [place], [address] ALT [Catalytic activity/Vol] 18 U/L Normal 13-56 [facility] Comment on above: Performed By: #### L 503.6005, L100.0100, L501.2450, L500.4050 ####[facility] [address] [place], [address] AST [Catalytic activity/Vol] 17 U/L Normal 15-37 [facility] Comment on above: Performed By: #### L 503.6005, L100.0100, L501.2450, L500.4050 ####[facility] [address] [place], [address] Bilirubin [Mass/Vol] 0.30 mg/dL Normal 0.20-1.00 [facility] Comment on above: Result Comment: For patients on eltrombopag therapy, use of Dimension [place] TBIL is not recommended. Performed By: #### L 503.6005, L100.0100, L501.2450, L500.4050 ####[facility] [address] [place], [address] BUN/CRE 30.2 RATIO High 10-20 [facility] Comment on above: Performed By: #### L 503.6005, L100.0100, L501.2450, L500.4050 ####[facility] [address] [place], [address] CA,Total 9.4 mg/dL Normal 8.5-10.1 [facility] Comment on above: Performed By: #### L 503.6005, L100.0100, L501.2450, L500.4050 ####[facility] [address] [place], [address] Chloride [Moles/Vol] 97 mmol/L Low 98-107 [facility] Comment on above: Performed By: #### L 503.6005, L100.0100, L501.2450, L500.4050 ####[facility] [address] [place], [address] CO2 [Moles/Vol] 29.0 mmol/L Normal 21.0-32.0 [facility] Comment on above: Performed By: #### L 503.6005, L100.0100, L501.2450, L500.4050 ####[facility] [address] [place], [address] Creatinine [Mass/Vol] 0.66 mg/dL Normal 0.55-1.02 [facility] Comment on above: Result Comment: The validity of the calculated GFR GFRAA in patients over70 years has not been determined. Clinical correlation isessential. Performed By: #### L 503.6005, L100.0100, L501.2450, L500.4050 ####[facility] [address] [place], [address] ECRCL 45.73 ml/min Normal [facility] Comment on above: Performed By: #### L 503.6005, L100.0100, L501.2450, L500.4050 ####[facility] [address] [place], [address] EST GFR - AA 110 mL/min Normal >60 [facility] Comment on above: Result Comment: Afri can [place] GFR Calc Performed By: #### L 503.6005, L100.0100, L501.2450, L500.4050 ####[facility] [address] [place], [address] GAP 6 Normal 5-15 [facility] Comment on above: Performed By: #### L 503.6005, L100.0100, L501.2450, L500.4050 ####[facility] [address] [place], [address] GFR/1.73 sq M.predicted among non-blacks MDRD (S/P/Bld) [Vol rate/Area] 91 mL/min/{1.73_m2} Normal >60 [facility] Comment on above: Result Comment: Non- GFR Calc Performed By: #### L 503.6005, L100.0100, L501.2450, L500.4050 ####[facility] [address] [place], [address] Globulin (S) [Mass/Vol] 3.1 g/dL Normal 2.2-4.2 [facility] Comment on above: Performed By: #### L 503.6005, L100.0100, L501.2450, L500.4050 ####[facility] [address] [place], [address] Glucose [Mass/Vol] 99 mg/dL Normal 74-106 [facility] Comment on above: Performed By: #### L 503.6005, L100.0100, L501.2450, L500.4050 ####[facility] [address] [place], [address] Potassium [Moles/Vol] 4.8 mmol/L Normal 3.5-5.1 [facility] Comment on above: Performed By: #### L 503.6005, L100.0100, L501.2450, L500.4050 ####[facility] [address] [place], [address] Sodium [Moles/Vol] 132 mmol/L Low 136-145 [facility] Comment on above: Performed By: #### L 503.6005, L100.0100, L501.2450, L500.4050 ####[facility] [address] [place], [address] T PROT 6.4 g/dL Normal 6.4-8.2 [facility] Comment on above: Performed By: #### L 503.6005, L100.0100, L501.2450, L500.4050 ####[facility] [address] [place], [address] Urea nitrogen [Mass/Vol] 20 mg/dL High 7-18 [facility] Comment on above: Performed By: #### L 503.6005, L100.0100, L501.2450, L500.4050 ####[facility] [address] [place], [address] Emergency Department Summary on 05-21-2024 Emergency Department Summary Normal [facility] Lactic Acidon 05-21-2024 Lactate [Moles/Vol] 1.1 mmol/L Normal 0.4-1.9 [facility] Comment on above: Order Comment: Y Performed By: #### L 503.6005, L100.0100, L501.2450, L500.4050 ####[facility] [address] [place], [address] Lipaseon 05-21-2024 Lipase [Catalytic activity/Vol] 37 U/L Normal 13-75 [facility] Comment on above: Result Comment: Kyleigh nicholson note:LIPASE revised reference range effective 22.New Lipase methodology. Expected to produce lower valuesthan the previous assay method.NEW Reference Range: 13 - 75 U/L Performed By: #### L 503.6005, L100.0100, L501.2450, L500.4050 ####[facility] [address] [place], [address] Urinalysis, Completeon 05-21 BACTERIA 1+ /hpf Normal None Seen [facility] Comment on above: Order Comment: CLEAN CATCH Performed By: #### L 400.0001 ####[facility] [address] [place], [address] AMORPHOUS 2+ Normal [facility] Comment on above: Order Comment: CLEAN CATCH Performed By: #### L 400.0001 ####[facility] [address] [place], [address] EPI,SQUAMOUS 0-5 SEEN Normal 5-10 [facility] Comment on above: Order Comment: CLEAN CATCH Performed By: #### L 400.0001 ####[facility] [address] [place], [address] RBC 0-5 SEEN Normal 0-5 [facility] Comment on above: Order Comment: CLEAN CATCH Performed By: #### L 400.0001 ####[facility] [address] [place], [address] Mucus Ql (Urine sed) 0 SEEN Normal [facility] Comment on above: Order Comment: CLEAN CATCH Performed By: #### L 400.0001 ####[facility] [address] [place], [address] WBC 0 SEEN Normal 0-5 [facility] Comment on above: Order Comment: CLEAN CATCH Performed By: #### L 400.0001 ####[facility] [address] [place], [address] Basic metabolic 2000 panelon 02-23-2024 Anion gap [Moles/Vol] 4 mmol/L Low 5-16 [facility] Comment on above: Order Comment: Speci men Type: BLOOD SPECIMEN Ordering Facility: [facility] Address: [address] [place] [address] Performed By: #### 2 4323-8, 98582-2, 5643-2, 1988-01 #### [facility] CLIA [id number] [address] [place], [place] [address] [place] Calcium [Mass/Vol] 8.8 mg/dL Normal 8.5-10.5 [facility] Comment on above: Order Comment: Speci men Type: BLOOD SPECIMEN Ordering Facility: [facility] Address: [address] [place] [place] [address] Performed By: #### 2 4323, , 5642-10, 1988-01 #### [facility] CLIA [id number] [address] [place] [address] [place] Chloride [Moles/Vol] 99 mmol/L Normal 98-107 [facility] Comment on above: Order Comment: Speci men Type: BLOOD SPECIMEN Ordering Facility: [facility] Address: [address] [place] [address] Performed By: #### 2 8, , 5642-10, 1988-01 #### [facility] CLIA [id number] [address] [place] [address] [place] CO2 [Moles/Vol] 27 mmol/L Normal 21-32 [facility] Comment on above: Order Comment: Speci men Type: BLOOD SPECIMEN Ordering Facility: [facility] Address: [address] [place] [address] Performed By: #### 2 8, , 5642-10, 1988-01 #### [facility] CLIA [id number] [address] [place], [place] [address] [place] Creatinine [Mass/Vol] 0.48 mg/dL Low 0.51-0.95 [facility] Comment on above: Order Comment: Speci men Type: BLOOD SPECIMEN Ordering Facility: [facility] Address: [address] [place] [address] Result Comment: Amy ents receiving either N-Acetylcysteine (NAC) or Metamizole prior to venipuncture, may have falsely depressed results. Performed By: #### 2 4322-8, , 5642-10, 1988-01 #### [facility] CLIA [id number] [address] [place], [place] [address] [place] Creatinine and Glomerular filtration rate.predicted panel (S/P/Bld) 95 mL/min/1.73m??? Normal >=60 [facility] Comment on above: Order Comment: Speci men Type: BLOOD SPECIMEN Ordering Facility: [facility] Address: [address] [place] [address] Result Comment: Gely mated Glomerular Filtration Rate (eGFR) is calculated using the 2020 CKD-EPI creatinine equation. This equation utilizes serum creatinine, sex, and age as parameters. The creatinine assay has traceable calibration to isotope dilution-mass spectrometry. Refer to KDIGO guidelines for clinical interpretation. In patients with unstable renal function, e.g. those with acute kidney injury, the eGFR may not accurately reflect actual GFR. Performed By: #### 2 4323-8, 96760-7, 43, 1988-01 #### [facility] CLIA [id number] [address] [place], [place] [address] [place] Glucose [Mass/Vol] 89 mg/dL Normal 70-100 [facility] Comment on above: Order Comment: Jenaro abernathy Type: BLOOD SPECIMEN Ordering Facility: [facility] Address: [address] [id number] Result Comment: The [place] Diabetes Association (ADA) provides guidance for cutoff values for fasting glucose and random glucose. The ADA defines fasting as no caloric intake for at least 8 hours. Fasting plasma glucose results between 100 to 125 mg/dL indicate increased risk for diabetes (prediabetes). Fasting plasma glucose results greater than or equal to 126 mg/dL meet the criteria for diagnosis of diabetes. In the absence of unequivocal hyperglycemia, results should be confirmed by repeat testing. In a patient with classic symptoms of hyperglycemia or hyperglycemic crisis, random plasma glucose results greater than or equal to 200 mg/dL meet the criteria for diagnosis of diabetes. Reference: Standards of Medical Care in Diabetes 2016, [place] [employer] Association. Diabetes Care. 2016.39(Suppl 1). Results may be falsely elevated after the administration of Sulfapyridine. Results may be falsely depressed after the administration of Sulfasalazine. Performed By: #### 2 4323-8, 38147-7, 5642-10, 1988-01 #### [facility] CLIA [id number] [address] [place] [address] [place] Potassium [Moles/Vol] 4.5 mmol/L Normal 3.5-5.1 [facility] Comment on above: Order Comment: Jenaro abernathy Type: BLOOD SPECIMEN Ordering Facility: [facility] Address: [address] [place] [address] Performed By: #### 2 4323-8, 72697-2, 43-2, 1988-01 #### [facility] CLIA [id number] [address] [place], [place] [address] [place] Sodium [Moles/Vol] 130 mmol/L Low 136-145 [facility] Comment on above: Order Comment: Speci men Type: BLOOD SPECIMEN Ordering Facility: [facility] Address: [facility] [place] [address] Performed By: #### 2 432-8, 69647-0, 5642-2, 1988-01 #### [facility] CLIA [id number] [address] [place], [place] [address] [place] Urea nitrogen [Mass/Vol] 23 mg/dL Normal 03-30 [facility] Comment on above: Order Comment: Speci men Type: BLOOD SPECIMEN Ordering Facility: [facility] Address: [address] [place], [place] [address] [address] Performed By: #### 2 432-8, 05358-2, 2, 1988-01 #### [facility] CLIA [id number] [address] [place], [place] [address] [place] CBC W Auto Differential pane l (Bld)on 02-23-2024 Basophils (Bld) [#/Vol] 10*3/uL Normal <0.11 [facility] Comment on above: Order Comment: Speci men Type: BLOOD SPECIMEN Ordering Facility: [facility] Address: [facility] [place] [address] Performed By: #### 2 4323-8, 28194-5, 43-2, 1988-01 #### [facility] CLIA [id number] [address] [place], [place] [address] [place] Basophils/100 WBC (Bld) 0.2 % Normal [facility] Comment on above: Order Comment: Speci men Type: BLOOD SPECIMEN Ordering Facility: [facility] Address: [facility] [place] [address] Performed By: #### 2 4323-, , 5642-10, 1988-01 #### [facility] CLIA [id number] [address] [place], [place] [address] [place] Differential cell count method Nom (Bld) Auto Normal [facility] Comment on above: Order Comment: Speci men Type: BLOOD SPECIMEN Ordering Facility: [facility] Address: [address] [place] [address] Performed By: #### 2 8, , 5642-10, 1988-01 #### [facility] CLIA [id number] [address] [place], [place] [address] [place] Eosinophils (Bld) [#/Vol] 0.17 10*3/uL Normal <0.46 [facility] Comment on above: Order Comment: Speci men Type: BLOOD SPECIMEN Ordering Facility: [facility] Address: [address] [place] [address] Performed By: #### 2 8, , 5642-10, 1988-01 #### [facility] CLIA [id number] [address] [place] [address] [place] Eosinophils/100 WBC (Bld) 1.8 % Normal [facility] Comment on above: Order Comment: Speci men Type: BLOOD SPECIMEN Ordering Facility: [facility] Address: [address] [place] [address] Performed By: #### 2 8, , 5642-10, 1988-01 #### [facility] CLIA [id number] [address] [place], [place] [address] [place] Erythrocyte distribution width (RBC) [Ratio] 15.1 % High 11.5-15.0 [facility] Comment on above: Order Comment: Speci men Type: BLOOD SPECIMEN Ordering Facility: [facility] Address: [address] [place] [address] Performed By: #### 2 4322-8, , 5642-10, 1988-01 #### [facility] CLIA [id number] [address] [place], [place] [address] [place] Hematocrit (Bld) [Volume fraction] 21.3 % Low 36.0-46.0 [facility] Comment on above: Order Comment: Speci men Type: BLOOD SPECIMEN Ordering Facility: [facility] Address: [address] [place], [place] [address] Performed By: #### 2 8, , 5642-10, 1988-01 #### [facility] CLIA [id number] [address] [place] [address] [place] Hemoglobin (Bld) [Mass/Vol] 7.4 g/dL Low 11.5-15.5 [facility] Comment on above: Order Comment: Speci men Type: BLOOD SPECIMEN Ordering Facility: [facility] Address: [address] [place] [address] Performed By: #### 2 8, , 5642-10, 1988-01 #### [facility] CLIA [id number] [address] [place], [place] [address] [place] Immature granulocytes (Bld) [#/Vol] 0.04 10*3/uL Normal <0.10 [facility] Comment on above: Order Comment: Speci men Type: BLOOD SPECIMEN Ordering Facility: [facility] Address: [address] [place], [place] [address] Performed By: #### 2 8, , 5642-10, 1988-01 #### [facility] CLIA [id number] [address] [place], [place] [address] [place] Immature granulocytes/100 WBC (Bld) 0.4 % Normal [facility] Comment on above: Order Comment: Speci men Type: BLOOD SPECIMEN Ordering Facility: [facility] Address: [address] [place] [address] Performed By: #### 2 8, , 5642-10, 1988-01 #### [facility] CLIA [id number] [address] [place], [place] [address] [place] Lymphocytes (Bld) [#/Vol] 1.74 10*3/uL Normal 1.00-4.00 [facility] Comment on above: Order Comment: Speci men Type: BLOOD SPECIMEN Ordering Facility: [facility] Address: [address] [place] [address] Performed By: #### 2 432-8, , 5642-10, 1988-01 #### [facility] CLIA [id number] [address] [place], [place] [address] [place] Lymphocytes/100 WBC (Bld) 18.7 % Normal [facility] Comment on above: Order Comment: Speci men Type: BLOOD SPECIMEN Ordering Facility: [facility] Address: [address] [place] [address] Performed By: #### 2 432-8, , 5642-10, 1988-01 #### [facility] CLIA [id number] [address] [place] [address] [place] MCH (RBC) [Entitic mass] 31.1 pg Normal 26.0-34.0 [facility] Comment on above: Order Comment: Speci men Type: BLOOD SPECIMEN Ordering Facility: [facility] Address: [address] [place] [address] Performed By: #### 2 4328, , 5642-10, 1988-01 #### [facility] CLIA [id number] [address] [place], [place] [address] [place] MCHC (RBC) [Mass/Vol] 34.7 g/dL Normal 30.5-36.0 [facility] Comment on above: Order Comment: Speci men Type: BLOOD SPECIMEN Ordering Facility: [facility] Address: [address] [place] [address] Performed By: #### 2 432-8, , 5642-10, 1988-01 #### [facility] CLIA [id number] [address] [place] [address] [place] MCV (RBC) [Entitic vol] 89.5 fL Normal 80.0-100.0 [facility] Comment on above: Order Comment: Speci men Type: BLOOD SPECIMEN Ordering Facility: [facility] Address: [address] [place] [address] Performed By: #### 2 432-8, , 5642-10, 1988-01 #### [facility] CLIA [id number] [address] [place] [address] [place] Monocytes (Bld) [#/Vol] 0.60 10*3/uL Normal <0.87 [facility] Comment on above: Order Comment: Speci men Type: BLOOD SPECIMEN Ordering Facility: [facility] Address: [address] [place] [address] Performed By: #### 2 432-8, , 5642-10, 1988-01 #### [facility] CLIA [id number] [address] [place] [address] [place] Monocytes/100 WBC (Bld) 6.5 % Normal [facility] Comment on above: Order Comment: Speci men Type: BLOOD SPECIMEN Ordering Facility: [facility] Address: [address] [place], [place] [address] Performed By: #### 2 4322-8, , 5642-10, 1988-01 #### [facility] CLIA [id number] [address] [place] [address] [place] Neutrophils (Bld) [#/Vol] 6.73 10*3/uL Normal 1.45-7.50 [facility] Comment on above: Order Comment: Speci men Type: BLOOD SPECIMEN Ordering Facility: [facility] Address: [address] [place] [address] Performed By: #### 2 432-8, , 5642-10, 1988-01 #### [facility] CLIA [id number] [address] [place] [address] [place] Neutrophils/100 WBC (Bld) 72.4 % Normal [facility] Comment on above: Order Comment: Speci men Type: BLOOD SPECIMEN Ordering Facility: [facility] Address: [address] [place] [address] Performed By: #### 2 4323-8, 89763-2, 5642-, 1988-01 #### [facility] CLIA [id number] [address] [place] [address] [place] Nucleated RBC (Bld) [#/Vol] 10*3/uL Normal <0.01 [facility] Comment on above: Order Comment: Speci men Type: BLOOD SPECIMEN Ordering Facility: [facility] Address: [address] [place], [place] [address] Performed By: #### 2 432-8, , 5642-, 1988-01 #### [facility] CLIA [id number] [address] [place], [place] [address] [place] Nucleated RBC/100 WBC (Bld) [Ratio] 0.0 /[address] [facility] Comment on above: Order Comment: Speci men Type: BLOOD SPECIMEN Ordering Facility: [facility] Address: [address] [place], [place] [address] Performed By: #### 2 432-8, , 5642-10, 1988-01 #### [facility] CLIA [id number] [address] [place], [place] [address] [place] Platelet mean volume (Bld) [Entitic vol] 9.4 fL Normal 9.0-12.7 [facility] Comment on above: Order Comment: Speci men Type: BLOOD SPECIMEN Ordering Facility: [facility] Address: [address] [place] [address] Performed By: #### 2 4323-8, 46813-1, 5642-2, 1988-01 #### [facility] CLIA [id number] [address] [place] [address] [place] Platelets (Bld) [#/Vol] 412 10*3/uL High 150-400 [facility] Comment on above: Order Comment: Speci men Type: BLOOD SPECIMEN Ordering Facility: [facility] Address: [address] [place] [address] Performed By: #### 2 4323-8, 40002-5, 5643-2, 1988-01 #### [facility] CLIA [id number] [address] [place] [address] [facility] [place] RBC (Bld) [#/Vol] 2.38 10*6/uL Low 3.90-5.20 [facility] Comment on above: Order Comment: Jenaro abernathy Type: BLOOD SPECIMEN Ordering Facility: [facility] Address: [address] [place] [address] Performed By: #### 2 4323-8, 72638-4, 5643-2, 1988-01 #### [facility] CLIA [id number] [address] [place] [address] [facility] WBC (Bld) [#/Vol] 9.30 10*3/uL Normal 3.70-11.00 [facility] Comment on above: Order Comment: Jenaro abernathy Type: BLOOD SPECIMEN Ordering Facility: [facility] Address: [address] [place] [address] Performed By: #### 2 4323-8, 73909-0, 5643-2, 1988-01 #### [facility] CLIA [id number] [address] [place] [address] [facility] CNDSon 02-23-2024 CNDS HNO ID: [id number] Author: TONG FELIX DO Service: Hospital Medicine Author Type: Physician Type: Discharge Summary Filed: 02/23/2024 09:30 Note Text: DISCHARGE SUMMARY PATIENT NAME: May Leonard ADMISSION DATE: 02/16/2024 DISCHARGE DATE: 02/23/2024 ATTENDING PHYSICIAN: Tong Felix DO Code Status: Full Code Highest Readmission Risk Score: 31 The 30 day readmissions risk score is derived from an internally validated risk model which evaluates patient level characteristics, utilization history, medication orders and lab results up until the day of discharge. Patients with a score of 40 or above are considered highest risk for readmission. Specific patient level drivers will be listed at the bottom of the summary. SPECIALITY SERVICES SEEN DURING HOSPITALIZATION: hospitalist, orthopedic surgery CHIEF COMPLAINT: right hip pain REASON FOR HOSPITALIZATION: right hip fracture FINAL DIAGNOSIS: right hip fracture OPERATIONS/PROCEDURES DURING HOSPITALIZATION: HOSPITAL COURSE: 83 year old female with a significant PMH of arthritis/hypertension/spi nal stenosis Presents with right hip pain. Patient had a fall at the end of December falling directly on her right hip and has been attempting to ambulate on her right hip. She was seen at [facility] whom told her that she had a right hip fracture. She was sent here by the physician by referral by Dr. bagley whom spoke with Dr. Gracia to plan for surgery tomorrow. She has been having difficulty ambulating at home and cannot get around independently. She most recently had surgery on this hip last year when she had broke it previously. Vitals were stable Labs at baseline Right hip x-ray> Right intertrochanteric femoral neck fracture. During hospital stay, patient would be evaluated by orthopedic surgery. They would perform right hip revision with total hip replacement. Patient's hemoglobin would drop post operatively and would require 1U PRBC with improvement of hemglobin at 7.4 at discharge. Patient's sodium also decreased to 126 and improved with fluid restriction. She will continue iron replacement for an additional month at discharge. Repeat labs on February 26. PT/OT would evaluate the patient and recommended discharge to acute rehab. Follow up with orthopedic surgery in 2 weeks. Follow up with PCP in one week. Vital signs were stable on discharge. Patient understood and agreed with discharge plan. ADMISSION PHYSICAL EXAM: Constitutional: No acute distress, Responsive, Normal habitus, and Well-nourished Neck: Trachea midline No jugular venous distension Cardiovascular: Regular rate and rhythm, normal S1 and S2, no murmurs, rubs, or gallops No peripheral edema Respiratory: Normal respiratory effort. Lungs clear bilaterally. Abdomen: Soft, non-tender, non-distended. Normal bowel sounds. No hepatosplenomegaly. Psychiatric: Alert and oriented x self, place, time, and setting Normal mood/affect ASSESSMENT AND PLAN: 1. Right hip fracture: Patient is postop day #1 from total hip conversion. Orthopedic surgery is following. Continue pain control as needed. Use Lovenox for DVT prophylaxis. 2. Acute blood loss anemia: Hemoglobin is decreased to 6.8 today. Give 1 unit packed red blood cell at this time. 3. Acute on chronic hyponatremia: Sodium has decreased to 126. Start fluid restriction of 1500 cc. Follow-up BMP in the morning. Patient is asymptomatic at this time. 4. Constipation: Continue laxatives. Additional chronic co-morbidity treatment: 5. Arthritis 6. Spinal stenosis 7. Left hand swelling: X-ray showed no acute fracture. PATIENT CONDITION AT DISCHARGE: Stable DISCHARGE DISPOSITION: Acute Rehab VITALS: Patient Vitals for the past 12 hrs: BP Temp Temp src Pulse Resp SpO2 02/23/24 0751 125/60 36.8 ?C (98.3 ?F) -- 78 16 96 % 02/22/24 2344 109/57 (!) 35.9 ?C (96.6 ?F) Oral 70 -- 96 % INFORMATION PROVIDED TO PATIENT: ALLERGIES Allergen Reactions Naproxen Other: See Comments Become very anxious and passed out Prednisone Other: See Comments Made her very anxious DISCHARGE MEDICATION: Medication List START taking these medications acetaminophen 500 mg tablet Commonly known as: TYLENOL Take 2 tablets by mouth every 8 hours as needed for pain (mild pain). docusate sodium 100 mg capsule Commonly known as: COLACE Take 1 capsule by mouth two times a day as needed. enoxaparin 40 mg/0.4 mL Commonly known as: LOVENOX Inject 0.4 mL subcutaneously once daily for 28 days. ferrous sulfate 325 mg (65 mg iron) tablet Take 1 tablet by mouth two times a day. oxyCODONE IR 5 mg immediate release tablet Commonly known as: ROXICODONE Take 1 tablet by mouth every 6 hours as needed for up to 7 days. polyethylene glycol 3350 17 gram packet Take 1 Packet by mouth once daily. Dissolve dose in 4 - 8 ounces of liquid and take as directed. Start taking on: February 24, 2024 ps (more content not included)... 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 SIGNATURE: Wally Avendano PT DATE: February 23, 2024 TIME: 4:48 PM -- Physical Therapy Treatment Summary SERVICE DATE: 02/23/2024 SERVICE TIME: 811 to 835 ROOM: [place] [address] PT 6 Clicks Score: 9 DISCHARGE RECOMMENDATIONS Subacute/SNF Recommended Discharge Disposition Comments: Pt tolerated PT eval fair. Pt educated on posterior hip precatuions, NWB RLE, and PT POC. Pt is max assisance. Recommend SNF at this time Recommended Discharge Disposition Due to: Patient requires active, intensive rehabilitation by multiple therapy disciplines. Anticipate the patient will tolerate 3 hours of therapy per day. ASSESSMENT PRECAUTIONS Fall Risk, Weight Bearing Restrictions, Posterior Hip Precautions, Lines/Tubes/Drains exit bed Left, left hand swelling- xray present in room after PT eval. xray negative, edema still present. lue nwb maintained d/t discomfort primafit Right Lower Extremity Weight Bearing Status: NWB CURRENT HOSPITAL COURSE fall resulting R hip fx; s/p conversion to R LES by Dr. Gracia; L hand swelling and pain noted, RN made aware Relevant Past Medical History: HTN, Migraine, Spinal Stenosis, Arthritis, R TSA 09/30/22 HOME LIVING Patient Lives With: Self/Alone Assistance Available: PRN, Other: See Comment Comments: neighbor checks in daily Entry To Home: Ramp, Stairs Number Of Stairs Into Home: 2 (RAMP OR 2 steps) Number Of Stairs To Bed/Bath: 0 Tub/Shower Type: sponge bathes - does not get in shower for last month Laundry: on main living floor; pt completes Equipment Owned: Commode- 3 in 1, Shower Chair, Wheelchair- Manual, Walker- Wheeled, Rollator, Grab Bars- Shower PRIOR FUNCTIONAL LEVEL Within Functional Limits pt reports she is able to complete basic ADLs - she keeps a BSC next to bed to use at night, she makes frozen meals, notes increased difficulty caring for self. use of rollator in home, use of transport chair to exit home with assist. pt notes 4 falls d/t poor balance and weakness. SUBJECTIVE THERAPY DIAGNOSIS Reduced mobility-other TREATMENT INTERVENTIONS TRAINING AND EDUCATION PROVIDED THERAPEUTIC SKILLS USED FUNCTIONAL STATUS Bed Mobility Supine To Sit: Maximal Assistance Sit to Supine: Maximal Assistance Scooting: Maximal Assistance Transfers Sit To Stand: Maximal Assistance (trial standing at ww w/ gait belt and NWB (R) LE w/ therapist assist) Stand To Sit: Maximal Assistance Bed to Chair Additional Information (NT) Bed To Chair Transfer Type: Slide Board Bed To Chair Transfer Equipment: Slide Board Gait Stairs GOALS Patient will demonstrate progress to optimize functional mobility, maximize activity tolerance and endurance to maximize function upon discharge. Able to Perform HEP with: Supervision Rolling with: Supervision Transfer Supine to/from Sit with: Supervision Transfer Sit to/from Stand with: Supervision Ambulate with: Minimal Assistance (once able) Distance: 5 Device: Wheeled Walker Goal: slideboard supv Rehab Potential: Fair Progress Toward Goals: Progressing slower than expected PLAN PT Frequency: 5 Times Per Week Treatment Interventions: Education Plan for Next Visit: Bed Mobility, Sit to Stand Transfers SIGNATURE: Teresa Price PTA PATIENT NAME: May Leonard DATE: February 23, 2024 TIME: 4:36 PM [facility] THERAPY NT HNO ID: [id number] Author: AMBER NOLAN COTA/L Service: Occupational Therapy 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 SIGNATURE: JAMEEL Plaza/Ryan DATE: February 23, 2024 TIME: 2:05 PM -- Occupational Therapy Treatment Summary SERVICE DATE: 02/23/2024 SERVICE TIME: 0900 to 0942 ROOM: [id number] OT 6 Clicks Score: 13 DISCHARGE RECOMMENDATIONS Subacute/SNF Recommended Discharge Disposition Comments: pt presents with decreased endurance, dynamic balance, funcitonal independencec and safety. pt is at high risk for falls, would benefit from cont OT services Recommended Discharge Disposition Due to: Functional deficits requiring ongoing therapy service prior to discharge home., Patient requires active, intensive rehabilitation by multiple therapy disciplines. Anticipate the patient will tolerate 3 hours of therapy per day., ADL impairment, Functional status decline, Requires multiple therapy disciplines, Weakness less than 3/5 in upper extremity ASSESSMENT Response to Therapy Interventions: Good Participation in Activities, Improved Tolerance for Activity, Needs Frequent Redirection or Reinstruction, Requires Additional Time to Complete Activities, Requires Encouragement to Complete Activities, Slow Progression with ADLs/IADLs, Slow Progression with Functional Activities/Skills patient tolerated session fairly. Limited by weakness and NWBing RLE. Requires heavy assistance for self care and functional transfers. PRECAUTIONS Fall Risk, Weight Bearing Restrictions, Posterior Hip Precautions, Lines/Tubes/Drains exit bed Left, left hand swelling- xray present in room after PT eval. xray negative, edema still present. lue nwb maintained d/t discomfort primafit Right Lower Extremity Weight Bearing Status: NWB CURRENT HOSPITAL COURSE fall resulting R hip fx; s/p conversion to R LES by Dr. Gracia; L hand swelling and pain noted, RN made aware Relevant Past Medical History: HTN, Migraine, Spinal Stenosis, Arthritis, R TSA 09/30/22 HOME LIVING Patient Lives With: Self/Alone Assistance Available: PRN, Other: See Comment Comments: neighbor checks in daily Entry To Home: Ramp, Stairs Number Of Stairs Into Home: 2 (RAMP OR 2 steps) Number Of Stairs To Bed/Bath: 0 Tub/Shower Type: sponge bathes - does not get in shower for last month Laundry: on main living floor; pt completes Equipment Owned: Commode- 3 in 1, Shower Chair, Wheelchair- Manual, Walker- Wheeled, Rollator, Grab Bars- Shower PRIOR FUNCTIONAL LEVEL Within Functional Limits pt reports she is able to complete basic ADLs - she keeps a BSC next to bed to use at night, she makes frozen meals, notes increased difficulty caring for self. use of rollator in home, use of transport chair to exit home with assist. pt notes 4 falls d/t poor balance and weakness. Baseline Cognition: Oriented to self, Oriented to place, Oriented to time, Oriented to situation SUBJECTIVE It is always scary to get up but I think it feels good once I am there" COGNITION Responsiveness: Alert, Awake Follows Commands: 3-step Commands THERAPY DIAGNOSIS Decreased activities of daily living (ADL) TREATMENT INTERVENTIONS Therapeutic Activity (21203), Self Alf Management (30387) Timed Code Treatment (minutes): 42 Skilled Treatment Time (minutes): 42 TRAINING AND EDUCATION PROVIDED Activity Adaptation/Compensatory Strategies, Adaptive Equipment/DME, Assistive Device Use, Bed Mobility, Coping Skills/Resiliency, Discharge Planning, Energy Conservation, Environmental Modification, Grooming Tasks, Home Set-up/Modifications, Insight into Deficits, Life Roles/Routines/Habits, Lower Extremity Dressing, Pain Management, Positioning, Precautions/Restrictions, Role of Occupational Therapy, Safety/Judgment, Sitting Balance to Improve Reeves with ADLs/Self-Care, Standing Balance to Improve Reeves with ADLs/Self-Care, Transfer - Bed to Chair, Treatment Protocol, Upper Extremity Dressing, Upper Extremity Bathing THERAPEUTIC SKILLS USED Activity Dosing, Cuing Tactile, Cuing Verbal, Cuing Visual FUNCTIONAL STATUS Activities of Daily Living Assist Level Additional Information Feeding Independent Grooming Minimal Assistance, Additional Information seated EOB to wash face and hands Bathing Upper Body Minimal Assistance, Additional Information able to wash UB seated at EOB Bathing Lower Body Total Assistance, Additional Information Dressing Upper Body Minimal Assistance, Additional Information to don gown seated Dressing Lower Body (more content not included)... [facility] Basic metabolic 2000 panelon 02-22-2024 Anion gap [Moles/Vol] 6 mmol/L Normal 5-16 [facility] Comment on above: Order Comment: Speci men Type: BLOOD SPECIMEN Ordering Facility: [facility] Address: [facility] [place] [id number] Performed By: #### 2 4323-8, 40963-0, 5642-10, 1988-01 #### [facility] CLIA [id number] [address] [place] [address] [place] Calcium [Mass/Vol] 9.1 mg/dL Normal 8.5-10.5 [facility] Comment on above: Order Comment: Speci men Type: BLOOD SPECIMEN Ordering Facility: [facility] Address: [address] [place], [place] [address] [id number] Performed By: #### 2 432-8, , 5642-10, 1988-01 #### [facility] CLIA [id number] [address] [place], [place] [address] [place] Chloride [Moles/Vol] 98 mmol/L Normal 98-107 [facility] Comment on above: Order Comment: Speci men Type: BLOOD SPECIMEN Ordering Facility: [facility] Address: [facility] [place] [address] Performed By: #### 2 432-8, , 5642-10, 1988-01 #### [facility] CLIA [id number] [address] [place] [address] [place] CO2 [Moles/Vol] 22 mmol/L Normal 21-32 [facility] Comment on above: Order Comment: Speci men Type: BLOOD SPECIMEN Ordering Facility: [facility] Address: [address] [place] [address] [place] [address] Performed By: #### 2 432-8, , 5642-10, 1988-01 #### [facility] CLIA [id number] [address] [place] [address] [place] Creatinine [Mass/Vol] 0.63 mg/dL Normal 0.51-0.95 [facility] Comment on above: Order Comment: Jenaro abernathy Type: BLOOD SPECIMEN Ordering Facility: [facility] Address: [address] [place] [place] [id number] Result Comment: Amy ents receiving either N-Acetylcysteine (NAC) or Metamizole prior to venipuncture, may have falsely depressed results. Performed By: #### 2 4323-8, 03438-3, 5642-10, 1988-01 #### [facility] CLIA [id number] [address] [place], [place] [address] [place] Creatinine and Glomerular filtration rate.predicted panel (S/P/Bld) 89 mL/min/1.73m??? Normal >=60 [facility] Comment on above: Order Comment: Jenaro abernathy Type: BLOOD SPECIMEN Ordering Facility: [facility] Address: [address] [place], [place] [address] Result Comment: Gely mated Glomerular Filtration Rate (eGFR) is calculated using the 2020 CKD-EPI creatinine equation. This equation utilizes serum creatinine, sex, and age as parameters. The creatinine assay has traceable calibration to isotope dilution-mass spectrometry. Refer to KDIGO guidelines for clinical interpretation. In patients with unstable renal function, e.g. those with acute kidney injury, the eGFR may not accurately reflect actual GFR. Performed By: #### 2 4323-8, , 5642-10, 1988-01 #### [facility] CLIA [id number] [address] [place], [place] [address] [place] Glucose [Mass/Vol] 97 mg/dL Normal 70-100 [facility] Comment on above: Order Comment: Jenaro abernathy Type: BLOOD SPECIMEN Ordering Facility: [facility] Address: [address] [place] [place] [id number] Result Comment: The [place] Diabetes Association (ADA) provides guidance for cutoff values for fasting glucose and random glucose. The ADA defines fasting as no caloric intake for at least 8 hours. Fasting plasma glucose results between 100 to 125 mg/dL indicate increased risk for diabetes (prediabetes). Fasting plasma glucose results greater than or equal to 126 mg/dL meet the criteria for diagnosis of diabetes. In the absence of unequivocal hyperglycemia, results should be confirmed by repeat testing. In a patient with classic symptoms of hyperglycemia or hyperglycemic crisis, random plasma glucose results greater than or equal to 200 mg/dL meet the criteria for diagnosis of diabetes. Reference: Standards of Medical Care in Diabetes 2016, [place] [employer] Association. Diabetes Care. 2016.39(Suppl 1). Results may be falsely elevated after the administration of Sulfapyridine. Results may be falsely depressed after the administration of Sulfasalazine. Performed By: #### 2 4323-8, , 5642-10, 1988-01 #### [facility] CLIA [id number] [address] [place], [place] [address] [place] Potassium [Moles/Vol] Normal [facility] Comment on above: Order Comment: Jenaro abernathy Type: BLOOD SPECIMEN Ordering Facility: [facility] Address: [address] [place] [address] Result Comment: Unab le to assay due to interference from hemolysis. Suggest reorder as clinically indicated. NOTIFIED MINDI ON 5B OF HEMOLYZED K Performed By: #### 2 432-8, , 5642-10, 1988-01 #### [facility] CLIA [id number] [address] [place] [address] [place] Sodium [Moles/Vol] 126 mmol/L Low 136-145 [facility] Comment on above: Order Comment: Jenaro abernathy Type: BLOOD SPECIMEN Ordering Facility: [facility] Address: [address] [place] [address] Performed By: #### 2 4323-8, , 5642-10, 1988-01 #### [facility] CLIA [id number] [address] [place] [address] [place] Urea nitrogen [Mass/Vol] 20 mg/dL Normal 7-26 [facility] Comment on above: Order Comment: Jenaro abernathy Type: BLOOD SPECIMEN Ordering Facility: [facility] Address: [address] [place] [address] Performed By: #### 2 4323-8, 99992-6, 5642-10, 1988-01 #### [facility] CLIA [id number] [address] [place] [address] [facility] CBC panel Auto (Bld)on 02-21 Erythrocyte distribution width (RBC) [Ratio] 14.1 % Normal 11.5-15.0 [facility] Comment on above: Order Comment: Speci men Type: BLOOD SPECIMEN Ordering Facility: [facility] Address: [address] [place] [address] Performed By: #### 2 432-8, , 5642-10, 1988-01 #### [facility] CLIA [id number] [address] [place], [place] [address] [place] Hematocrit (Bld) [Volume fraction] 19.8 % Low 36.0-46.0 [facility] Comment on above: Order Comment: Speci men Type: BLOOD SPECIMEN Ordering Facility: [facility] Address: [address] [place] [address] Performed By: #### 2 432-8, , 5642-10, 1988-01 #### [facility] CLIA [id number] [address] [place] [address] [place] Hemoglobin (Bld) [Mass/Vol] 6.8 g/dL Low 11.5-15.5 [facility] Comment on above: Order Comment: Speci men Type: BLOOD SPECIMEN Ordering Facility: [facility] Address: [address] [place] [address] Performed By: #### 2 4323-8, , 5642-10, 1988-01 #### [facility] CLIA [id number] [address] [place], [place] [address] [place] MCH (RBC) [Entitic mass] 31.8 pg Normal 26.0-34.0 [facility] Comment on above: Order Comment: Speci men Type: BLOOD SPECIMEN Ordering Facility: [facility] Address: [address] [place] [address] Performed By: #### 2 4323-8, 88951-2, 5642-10, 1988-01 #### [facility] CLIA [id number] [address] [place], [place] [address] [facility] MCHC (RBC) [Mass/Vol] 34.3 g/dL Normal 30.5-36.0 [facility] Comment on above: Order Comment: Speci men Type: BLOOD SPECIMEN Ordering Facility: [facility] Address: [address] [place] [address] Performed By: #### 2 432-8, , 5642-10, 1988-01 #### [facility] CLIA [id number] [address] [place], [place] [address] [place] MCV (RBC) [Entitic vol] 92.5 fL Normal 80.0-100.0 [facility] Comment on above: Order Comment: Speci men Type: BLOOD SPECIMEN Ordering Facility: [facility] Address: [address] [place] [address] Performed By: #### 2 432-8, , 5642-10, 1988-01 #### [facility] CLIA [id number] [address] [place] [address] [place] Nucleated RBC (Bld) [#/Vol] 10*3/uL Normal <0.01 [facility] Comment on above: Order Comment: Speci men Type: BLOOD SPECIMEN Ordering Facility: [facility] Address: [address] [place] [address] Performed By: #### 2 432-8, , 5642-10, 1988-01 #### [facility] CLIA [id number] [address] [place] [address] [place] Platelet mean volume (Bld) [Entitic vol] 9.0 fL Normal 9.0-12.7 [facility] Comment on above: Order Comment: Speci men Type: BLOOD SPECIMEN Ordering Facility: [facility] Address: [address] [place] [address] Performed By: #### 2 432-8, , 5642-10, 1988-01 #### [facility] CLIA [id number] [address] [place], [place] [address] [place] Platelets (Bld) [#/Vol] 401 10*3/uL High 150-400 [facility] Comment on above: Order Comment: Speci men Type: BLOOD SPECIMEN Ordering Facility: [facility] Address: [address] [place] [address] Performed By: #### 2 4323-8, 61038-4, 43-2, 1988-01 #### [facility] CLIA [id number] [address] [place] [address] [place] RBC (Bld) [#/Vol] 2.14 10*6/uL Low 3.90-5.20 [facility] Comment on above: Order Comment: Speci men Type: BLOOD SPECIMEN Ordering Facility: [facility] Address: [address] [place] [address] Performed By: #### 2 4323-8, 30495-9, 43-2, 1988-01 #### [facility] CLIA [id number] [address] [place], [place] [address] [facility] [place] WBC (Bld) [#/Vol] 11.87 10*3/uL High 3.70-11.00 [facility] Comment on above: Order Comment: Speci men Type: BLOOD SPECIMEN Ordering Facility: [facility] Address: [address] [place] [address] Performed By: #### 2 4323-8, 12590-0, 5642-2, 1988-01 #### [facility] CLIA [id number] [address] [place], [place] [address] [place] Magnesium SerPl-mCncon 02-21 Magnesium [Mass/Vol] 1.7 mg/dL Normal 1.6-2.6 [facility] Comment on above: Order Comment: Speci men Type: BLOOD SPECIMEN Ordering Facility: [facility] Address: [address] [place] [address] Performed By: #### 2 4323-8, 62023-6, 43-2, 1988-01 #### [facility] CLIA [id number] [address] [place], [place] [address] [facility] Phosphate SerPl-mCncon 02-21 Phosphate [Mass/Vol] 3.3 mg/dL Normal 2.5-4.9 [facility] Comment on above: Order Comment: Speci men Type: BLOOD SPECIMEN Ordering Facility: [facility] Address: [address] [place] [address] Result Comment: Elev ated m-protein (paraprotein) levels in the serum may be exhibited in patients with monoclonal gammopathies, causing falsely elevated inorganic phosphorus results. Performed By: #### 2 4323-8, 42728-6, 5643-2, 1987- #### [facility] CLIA [id number] [address] THERAPY NTon 02-22-2024 THERAPY NT HNO ID: [id number] Author: BULMARO MCKOY COTA/L Service: ? Author Type: Manager Of Drilling Type: Therapy (PT/OT/Speech/Resp) Filed: 02/22/2024 09:25 Note Text: -- Attestation signed by Tamela Miranda OTR/Ryan at 02/22/2024 11:28 AM I reviewed and agree with the documentation corresponding to this therapy visit. SIGNATURE: JAMEEL Redmond/Ryan DATE: February 22, 2024 TIME: 11:28 AM -- Occupational Therapy Treatment Summary SERVICE DATE: 02/22/2024 SERVICE TIME: 800 to 844 ROOM: [id number]- OT 6 Clicks Score: 12 DISCHARGE RECOMMENDATIONS Subacute/SNF Recommended Discharge Disposition Comments: pt presents with decreased endurance, dynamic balance, funcitonal independencec and safety. pt is at high risk for falls, would benefit from cont OT services Recommended Discharge Disposition Due to: Functional deficits requiring ongoing therapy service prior to discharge home., Patient requires active, intensive rehabilitation by multiple therapy disciplines. Anticipate the patient will tolerate 3 hours of therapy per day., ADL impairment, Functional status decline, Requires multiple therapy disciplines, Weakness less than 3/5 in upper extremity ASSESSMENT Response to Therapy Interventions: Good Participation in Activities, Improved Tolerance for Activity, Needs Frequent Redirection or Reinstruction, Requires Additional Time to Complete Activities, Requires Encouragement to Complete Activities, Slow Progression with ADLs/IADLs, Slow Progression with Functional Activities/Skills progressing slowly, req heavy assist for all transfers / adls snd is at a risk for falls, not safe for homegoing PRECAUTIONS Fall Risk, Weight Bearing Restrictions, Posterior Hip Precautions, Lines/Tubes/Drains exit bed Left, left hand swelling- xray present in room after PT eval. xray negative, edema still present. lue nwb maintained d/t discomfort primafit Right Lower Extremity Weight Bearing Status: NWB CURRENT HOSPITAL COURSE fall resulting R hip fx; s/p conversion to R LES by Dr. Gracia; L hand swelling and pain noted, RN made aware Relevant Past Medical History: HTN, Migraine, Spinal Stenosis, Arthritis, R TSA 09/30/22 HOME LIVING Patient Lives With: Self/Alone Assistance Available: PRN, Other: See Comment Comments: neighbor checks in daily Entry To Home: Ramp, Stairs Number Of Stairs Into Home: 2 (RAMP OR 2 steps) Number Of Stairs To Bed/Bath: 0 Tub/Shower Type: sponge bathes - does not get in shower for last month Laundry: on main living floor; pt completes Equipment Owned: Commode- 3 in 1, Shower Chair, Wheelchair- Manual, Walker- Wheeled, Rollator, Grab Bars- Shower PRIOR FUNCTIONAL LEVEL Within Functional Limits pt reports she is able to complete basic ADLs - she keeps a BSC next to bed to use at night, she makes frozen meals, notes increased difficulty caring for self. use of rollator in home, use of transport chair to exit home with assist. pt notes 4 falls d/t poor balance and weakness. Baseline Cognition: Oriented to self, Oriented to place, Oriented to time, Oriented to situation SUBJECTIVE COGNITION Responsiveness: Alert Follows Commands: 3-step Commands THERAPY DIAGNOSIS Decreased activities of daily living (ADL) TREATMENT INTERVENTIONS Therapeutic Activity (95878), Self Alf Management (87678) Timed Code Treatment (minutes): 44 Skilled Treatment Time (minutes): 44 TRAINING AND EDUCATION PROVIDED Altering Thinking Patterns, Benefits of In-Hospital Mobility, Bed Mobility, Discharge Planning, Edema Management, Energy Conservation, Functional Mobility Involving ADLs, Grooming Tasks, Lower Extremity Bathing, Lower Extremity Dressing, Positioning, Precautions/Restrictions, Role of Occupational Therapy, Safety/Judgment, Sitting Balance to Improve Reeves with ADLs/Self-Care, Transfer - Bed to Chair THERAPEUTIC SKILLS USED Activity Dosing, Cuing Tactile, Cuing Verbal, Cuing Visual FUNCTIONAL STATUS Activities of Daily Living Assist Level Additional Information Feeding Independent Grooming Minimal Assistance, Additional Information sitting in chair, patient able to grasp w/ lue to open toothpaste and hold emesis guerrero w/o discomfort Bathing Upper Body Moderate Assistance, Additional Information full adls sitting eob Bathing Lower Body Total Assistance, Additional Information max a x2 for rolling r/l for flex care, primafit placement and pulling up depends Dressing Upper Body Minimal Assistance, Additional Information gown Dressing Lower Body Total Assistance, Additional Information max a x2 as above Toileting Total Assistance Mobility Assist Level Additional Information Bed Mobility Rolling: Maximal Assistance, Additional Information r/l in bed for flex care and dep (more content not included)... [facility] ALLIED HEALTHon 02-21-2024 ALLIED HEALTH HNO ID: [id number] Author: CHRIS RAYA Chaplain Service: Spiritual Care Author Type: [facility] [employer] Type: Allied Health Filed: 02/21/2024 17:15 Note Text: SPIRITUALCARE Spiritual Care Visit- Brief Note Name: May Leonard Date:04/23/2022 Notes: The pt was alone. The pt was sad. Pt's story was that pt fell and broke a leg. Pt's view was that healing was going to take long time, something disappointing to the pt but the pt trusts in the Lord and was led to follow what the Lord wants. [employer] recognized and validated the pt's disappointment and encouraged the pt. The pt needed prayer for healing. The traveling repair accountant prayed for the pt for the healing. The pt was very grateful. [facility] [employer] Signature: Chris Raya To contact the [facility] Care Department: Please call [phone] or Page the On-Call [employer] at pager [phone]. Thank you for the opportunity to be of service. This is an electronically created document. IF PRINTED, PLEASE DO NOT REMOVE FROM THE CHART OR MODIFY PRINTED COPY. 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 Post Anesthesia Patient Status Patient Evaluation: PACU. PACU/ICU Patient Condition: stable. Anticipated Disposition: inpatient floor planned admission. Neurological Status: sleepy but arousable. Pulmonary Status: breathing comfortably on supplemental oxygen Airway Control: returned to baseline unsupported. Cardiovascular Status: stable. Pain Management: clinically adequate Postoperative Hydration: acceptable. Intraoperative Events: no significant anesthesia events Post Operative Nausea/Vomiting Status: no significant post operative nausea or vomiting Recommendation: continue current plan of care. Anesthesia Observations No Documentation SIGNATURE: José Miguel Fuller MD PATIENT NAME: May Leonadr DATE: February 21, 2024 TIME: 4:58 AM CSN: [id number] [facility] BRIEF OP NOTon 02-21-2024 BRIEF OP NOT HNO ID: [id number] Author: DANIE GRACIA MD Service: Orthopaedic Surgery Author Type: Physician Type: Brief Op Note Filed: 02/21/2024 00:39 Note Text: Orthopaedic Surgery BRIEF OPERATIVE NOTE LOG ID: [id number] Surgery/Procedure Date: 02/20/2024 Incision/Procedure Start Time: 6:46 PM Incision Close/Procedure End Time: 12:08 AM Surgeon(s) and Technical Fellow(s): Surgeon(s) and Role: * Danie Gracia MD - Primary Margin Trimmer: Edis Perez SA; Suzi Constantino SA Margin Trimmer (Relief): Danie Hoang SA Procedure(s): Procedure(s) (LRB): ARTHROPLASTY TOTAL HIP CONVERSION AFTER PREVIOUS HIP SURG (Right) Preoperative Diagnosis: Pre-Op Diagnosis Codes: * 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 Item Serial No. Radiology Scheduler Lot No. LRB No. Used Action Model No. XLB-VX-Z-KIND IMPLANT - [id number] Implant AKG-IZ-F-KIND IMPLANT KAROL Right 4 Explanted N/A SHELL ACETABULAR 52MM HIP MULTIHOLE TRITANIUM TRIDENT II E STERILE - [id number] Joint - Hip SHELL ACETABULAR 52MM HIP MULTIHOLE TRITANIUM TRIDENT II E STERILE KAROL [id number] Right 1 Implanted [id number] SCREW TRIDENT II 6.5MM 45MM BONE LOW PROFILE HEXAGONAL STERILE - [id number] Screw SCREW TRIDENT II 6.5MM 45MM BONE LOW PROFILE HEXAGONAL STERILE [employer] 346 Right 1 Implanted [id number] SCREW TRIDENT II 6.5MM 30MM BONE LOW PROFILE HEXAGONAL STERILE - [id number] Screw SCREW TRIDENT II 6.5MM 30MM BONE LOW PROFILE HEXAGONAL STERILE [employer] [id number] Right 1 Implanted [id number] BODY DENOMINATIONAL 23MM +0MM STANDARD 23MM CONE MODULAR REVISION HIP - [id number] Joint BODY DENOMINATIONAL 23MM +0MM STANDARD 23MM CONE MODULAR REVISION HIP [employer] [id number] Right 1 Implanted [id number] SCREW TRIDENT II 6.5MM 15MM BONE LOW PROFILE HEXAGONAL STERILE - [id number] Screw SCREW TRIDENT II 6.5MM 15MM BONE LOW PROFILE HEXAGONAL STERILE [employer] [id number] Right 1 Implanted [id number] LINER INSERT X3 SZ28/48 SZ 42E - [id number] Joint LINER INSERT X3 SZ28/48 SZ 42E KAROL [id number] Right 1 Implanted [id number] SCREW TRIDENT II 6.5MM 15MM BONE LOW PROFILE HEXAGONAL STERILE - [id number] Screw SCREW TRIDENT II 6.5MM 15MM BONE LOW PROFILE HEXAGONAL STERILE [employer] [id number] Right 1 Implanted [id number] SCREW TRIDENT II 6.5MM 15MM BONE LOW PROFILE HEXAGONAL STERILE - [id number] Screw SCREW TRIDENT II 6.5MM 15MM BONE LOW PROFILE HEXAGONAL STERILE [employer] [id number] Right 1 Implanted [id number] STEM 16MM CONICAL 155MM FEMORAL MODULAR DISTAL HIP - [id number] Joint - Hip STEM 16MM CONICAL 155MM FEMORAL MODULAR DISTAL HIP [employer] [id number] Right 1 Implanted [id number] Post Operative Plan: NWB RLE Posterior Hip Precautions Pain Control PT/OT Post op abx Electronically signed by: Danie Gracia MD [facility] Basic metabolic 2000 panelon 02-21-2024 Anion gap [Moles/Vol] 5 mmol/L Normal - [facility] Comment on above: Order Comment: Speci men Type: BLOOD SPECIMEN Ordering Facility: [facility] Address: [address] [facility] [place] [address] Performed By: #### 2 432-8, , 5642-10, 1988-01 #### [facility] CLIA [id number] [address] [place] [address] [place] Calcium [Mass/Vol] 8.9 mg/dL Normal 8.5-10.5 [facility] Comment on above: Order Comment: Speci men Type: BLOOD SPECIMEN Ordering Facility: [facility] Address: [address] [place] [address] Performed By: #### 2 432-8, , 5642-10, 1988-01 #### [facility] CLIA [id number] [address] [place], [place] [address] [place] Chloride [Moles/Vol] 99 mmol/L Normal 98-107 [facility] Comment on above: Order Comment: Speci men Type: BLOOD SPECIMEN Ordering Facility: [facility] Address: [address] [place], [place] [address] Performed By: #### 2 432-8, , 5642-10, 1988-01 #### [facility] CLIA [id number] [address] [place], [place] [address] [place] CO2 [Moles/Vol] 25 mmol/L Normal 21-32 [facility] Comment on above: Order Comment: Speci men Type: BLOOD SPECIMEN Ordering Facility: [facility] Address: [address] [place] [address] Performed By: #### 2 4323-8, , 5642-10, 1988-01 #### [facility] CLIA [id number] [address] [place], [place] [address] [place] Creatinine [Mass/Vol] 0.61 mg/dL Normal 0.51-0.95 [facility] Comment on above: Order Comment: Speci men Type: BLOOD SPECIMEN Ordering Facility: [facility] Address: [address] [place] [address] Result Comment: Amy ents receiving either N-Acetylcysteine (NAC) or Metamizole prior to venipuncture, may have falsely depressed results. Performed By: #### 2 4323-8, 27745-9, 5642-10, 1988-01 #### [facility] CLIA [id number] [address] [place] [address] [place] Creatinine and Glomerular filtration rate.predicted panel (S/P/Bld) 90 mL/min/1.73m??? Normal >=60 [facility] Comment on above: Order Comment: Jenaro abernathy Type: BLOOD SPECIMEN Ordering Facility: [facility] Address: [address] [place] [address] Result Comment: Gely mated Glomerular Filtration Rate (eGFR) is calculated using the 2020 CKD-EPI creatinine equation. This equation utilizes serum creatinine, sex, and age as parameters. The creatinine assay has traceable calibration to isotope dilution-mass spectrometry. Refer to KDIGO guidelines for clinical interpretation. In patients with unstable renal function, e.g. those with acute kidney injury, the eGFR may not accurately reflect actual GFR. Performed By: #### 2 4323-8, 97662-1, 5642-10, 1988-01 #### [facility] CLIA [id number] [address] [place], [place] [address] [place] Glucose [Mass/Vol] 164 mg/dL High 70-100 [facility] Comment on above: Order Comment: Jenaro abernathy Type: BLOOD SPECIMEN Ordering Facility: [facility] Address: [address] [id number] Result Comment: The [place] Diabetes Association (ADA) provides guidance for cutoff values for fasting glucose and random glucose. The ADA defines fasting as no caloric intake for at least 8 hours. Fasting plasma glucose results between 100 to 125 mg/dL indicate increased risk for diabetes (prediabetes). Fasting plasma glucose results greater than or equal to 126 mg/dL meet the criteria for diagnosis of diabetes. In the absence of unequivocal hyperglycemia, results should be confirmed by repeat testing. In a patient with classic symptoms of hyperglycemia or hyperglycemic crisis, random plasma glucose results greater than or equal to 200 mg/dL meet the criteria for diagnosis of diabetes. Reference: Standards of Medical Care in Diabetes 2016, [place] Diabetes Association. Diabetes Care. 2016.39(Suppl 1). Results may be falsely elevated after the administration of Sulfapyridine. Results may be falsely depressed after the administration of Sulfasalazine. Performed By: #### 2 4323-8, , 5642-10, 1988-01 #### [facility] CLIA [id number] [address] [place] [address] [place] Potassium [Moles/Vol] 4.6 mmol/L Normal 3.5-5.1 [facility] Comment on above: Order Comment: Speci men Type: BLOOD SPECIMEN Ordering Facility: [facility] Address: [address] [place] [address] Performed By: #### 2 432-8, , 5642-10, 1988-01 #### [facility] CLIA [id number] [address] [place] [address] [place] Sodium [Moles/Vol] 129 mmol/L Low 136-145 [facility] Comment on above: Order Comment: Speci josemanuel Type: BLOOD SPECIMEN Ordering Facility: [facility] Address: [address] [place] [address] Performed By: #### 2 4323-8, , 5642-10, 1988-01 #### [facility] CLIA [id number] [address] [place] [address] [place] Urea nitrogen [Mass/Vol] 19 mg/dL Normal 7-26 [facility] Comment on above: Order Comment: Speci men Type: BLOOD SPECIMEN Ordering Facility: [facility] Address: [address] [place], [place] [address] Performed By: #### 2 4323-8, , 5642-10, 1988-01 #### [facility] CLIA [id number] [address] [place], [place] [address] [place] CBC W Auto Differential pane l (Bld)on 02-21-2024 Basophils (Bld) [#/Vol] 10*3/uL Normal <0.11 [facility] Comment on above: Order Comment: Speci men Type: BLOOD SPECIMEN Ordering Facility: [facility] Address: [address] [place] [address] Performed By: #### 2 4322-8, , 5642-10, 1988-01 #### [facility] CLIA [id number] [address] [place] [address] [place] Basophils/100 WBC (Bld) 0.1 % Normal [facility] Comment on above: Order Comment: Speci men Type: BLOOD SPECIMEN Ordering Facility: [facility] Address: [address] [place] [address] Performed By: #### 2 8, , 5642-10, 1988-01 #### [facility] CLIA [id number] [address] [place], [place] [address] [place] Differential cell count method Nom (Bld) Auto Normal [facility] Comment on above: Order Comment: Speci men Type: BLOOD SPECIMEN Ordering Facility: [facility] Address: [address] [place] [address] Performed By: #### 2 8, , 5642-10, 1988-01 #### [facility] CLIA [id number] [address] [place], [place] [address] [place] Eosinophils (Bld) [#/Vol] 10*3/uL Normal <0.46 [facility] Comment on above: Order Comment: Speci men Type: BLOOD SPECIMEN Ordering Facility: [facility] Address: [address] [place] [address] Performed By: #### 2 4322-8, , 5642-10, 1988-01 #### [facility] CLIA [id number] [address] [place], [place] [address] [place] Eosinophils/100 WBC (Bld) 0.0 % Normal [facility] Comment on above: Order Comment: Speci men Type: BLOOD SPECIMEN Ordering Facility: [facility] Address: [address] [place] [address] Performed By: #### 2 432-8, , 43-2, 1988-01 #### [facility] CLIA [id number] [address] [place] [address] [place] Erythrocyte distribution width (RBC) [Ratio] 14.0 % Normal 11.5-15.0 [facility] Comment on above: Order Comment: Speci men Type: BLOOD SPECIMEN Ordering Facility: [facility] Address: [address] [place] [address] Performed By: #### 2 432-8, , 43-2, 1988-01 #### [facility] CLIA [id number] [address] [place] [address] [place] Hematocrit (Bld) [Volume fraction] 23.2 % Low 36.0-46.0 [facility] Comment on above: Order Comment: Speci men Type: BLOOD SPECIMEN Ordering Facility: [facility] Address: [address] [place] [address] Performed By: #### 2 432-8, , 43, 1988-01 #### [facility] CLIA [id number] [address] [place] [address] [place] Hemoglobin (Bld) [Mass/Vol] 7.8 g/dL Low 11.5-15.5 [facility] Comment on above: Order Comment: Speci men Type: BLOOD SPECIMEN Ordering Facility: [facility] Address: [address] [place] [address] Performed By: #### 2 432-8, , 43-2, 1988-01 #### [facility] CLIA [id number] [address] [place] [address] [place] Immature granulocytes (Bld) [#/Vol] 0.13 10*3/uL High <0.10 [facility] Comment on above: Order Comment: Speci men Type: BLOOD SPECIMEN Ordering Facility: [facility] Address: [address] [place] [address] Performed By: #### 2 4323-04, , 5642-10, 1988-01 #### [facility] CLIA [id number] [address] [place] [address] [place] Immature granulocytes/100 WBC (Bld) 0.9 % Normal [facility] Comment on above: Order Comment: Speci men Type: BLOOD SPECIMEN Ordering Facility: [facility] Address: [address] [place] [address] Performed By: #### 2 8, , 5642-10, 1988-01 #### [facility] CLIA [id number] [address] [place] [place], [place] [address] [place] Lymphocytes (Bld) [#/Vol] 0.97 10*3/uL Low 1.00-4.00 [facility] Comment on above: Order Comment: Speci men Type: BLOOD SPECIMEN Ordering Facility: [facility] Address: [address] [place] [address] Performed By: #### 2 4323-04, , 5642-10, 1988-01 #### [facility] CLIA [id number] [address] [place] [address] [place] Lymphocytes/100 WBC (Bld) 6.7 % Normal [facility] Comment on above: Order Comment: Speci men Type: BLOOD SPECIMEN Ordering Facility: [facility] Address: [address] [place] [address] Performed By: #### 2 8, , 5642-10, 1988-01 #### [facility] CLIA [id number] [address] [place], [place] [address] [place] MCH (RBC) [Entitic mass] 31.7 pg Normal 26.0-34.0 [facility] Comment on above: Order Comment: Speci men Type: BLOOD SPECIMEN Ordering Facility: [facility] Address: [address] [place] [address] Performed By: #### 2 4322-8, , 5642-10, 1988-01 #### [facility] CLIA [id number] [address] [place] [address] [place] MCHC (RBC) [Mass/Vol] 33.6 g/dL Normal 30.5-36.0 [facility] Comment on above: Order Comment: Speci men Type: BLOOD SPECIMEN Ordering Facility: [facility] Address: [address] [place] [address] Performed By: #### 2 432-8, , 5642-10, 1988-01 #### [facility] CLIA [id number] [address] [place], [place] [address] [place] MCV (RBC) [Entitic vol] 94.3 fL Normal 80.0-100.0 [facility] Comment on above: Order Comment: Speci men Type: BLOOD SPECIMEN Ordering Facility: [facility] Address: [address] [place] [address] Performed By: #### 2 432-8, , 5642-10, 1988-01 #### [facility] CLIA [id number] [address] [place], [place] [address] [place] Monocytes (Bld) [#/Vol] 1.22 10*3/uL High <0.87 [facility] Comment on above: Order Comment: Speci men Type: BLOOD SPECIMEN Ordering Facility: [facility] Address: [address] [place] [address] Performed By: #### 2 432-8, , 5642-10, 1988-01 #### [facility] CLIA [id number] [address] [place], [place] [address] [place] Monocytes/100 WBC (Bld) 8.5 % Normal [facility] Comment on above: Order Comment: Speci men Type: BLOOD SPECIMEN Ordering Facility: [facility] Address: [address] [place] [address] Performed By: #### 2 432-8, , 5642-10, 1988-01 #### [facility] CLIA [id number] [address] [place], [place] [address] [place] Neutrophils (Bld) [#/Vol] 12.07 10*3/uL High 1.45-7.50 [facility] Comment on above: Order Comment: Speci men Type: BLOOD SPECIMEN Ordering Facility: [facility] Address: [address] [place] [address] Performed By: #### 2 4323-8, , 5642-10, 1988-01 #### [facility] CLIA [id number] [address] [place], [place] [address] [place] Neutrophils/100 WBC (Bld) 83.8 % Normal [facility] Comment on above: Order Comment: Speci men Type: BLOOD SPECIMEN Ordering Facility: [facility] Address: [address] [place] [address] Performed By: #### 2 4323-8, , 5642-10, 1988-01 #### [facility] CLIA [id number] [address] [place], [place] [address] [place] Nucleated RBC (Bld) [#/Vol] 10*3/uL Normal <0.01 [facility] Comment on above: Order Comment: Speci men Type: BLOOD SPECIMEN Ordering Facility: [facility] Address: [address] [place], [place] [address] Performed By: #### 2 4323-8, , 5642-10, 1988-01 #### [facility] CLIA [id number] [address] [place], [place] [address] [place] Nucleated RBC/100 WBC (Bld) [Ratio] 0.0 /[address] [facility] Comment on above: Order Comment: Speci men Type: BLOOD SPECIMEN Ordering Facility: [facility] Address: [address] [place] [address] Performed By: #### 2 4323-8, , 5642-10, 1988-01 #### [facility] CLIA [id number] [address] [place] [address] [place] Platelet mean volume (Bld) [Entitic vol] 8.9 fL Low 9.0-12.7 [facility] Comment on above: Order Comment: Speci men Type: BLOOD SPECIMEN Ordering Facility: [facility] Address: [facility] [place] [address] Performed By: #### 2 432-8, , 5642-10, 1988-01 #### [facility] CLIA [id number] [address] [place] [address] [place] Platelets (Bld) [#/Vol] 341 10*3/uL Normal 150-400 [facility] Comment on above: Order Comment: Speci men Type: BLOOD SPECIMEN Ordering Facility: [facility] Address: [address] [place] [address] [place] [address] Performed By: #### 2 432-8, , 5642-10, 1988-01 #### [facility] CLIA [id number] [address] [place] [address] [place] RBC (Bld) [#/Vol] 2.46 10*6/uL Low 3.90-5.20 [facility] Comment on above: Order Comment: Speci men Type: BLOOD SPECIMEN Ordering Facility: [facility] Address: [facility] [place] [address] Performed By: #### 2 432-8, , 5642-10, 1988-01 #### [facility] CLIA [id number] [address] [place] [address] [place] WBC (Bld) [#/Vol] 14.40 10*3/uL High 3.70-11.00 [facility] Comment on above: Order Comment: Speci men Type: BLOOD SPECIMEN Ordering Facility: [facility] Address: [address] [place], [place] [address] [address] Performed By: #### 2 432-8, , 5642-10, 1988-01 #### [facility] CLIA [id number] [address] [place] [address] [place] Magnesium SerPl-mCncon 02-20 Magnesium [Mass/Vol] 1.6 mg/dL Normal 1.6-2.6 [facility] Comment on above: Order Comment: Speci josemanuel Type: BLOOD SPECIMEN Ordering Facility: [facility] Address: [address] [place], [place] [address] Performed By: #### 2 4323-8, 14909-6, 5643, 1988-01 #### [facility] CLIA [id number] [address] [place], [place] [address] [facility] [place] Phosphate SerPl-mCncon 02-20 Phosphate [Mass/Vol] 4.7 mg/dL Normal 2.5-4.9 [facility] Comment on above: Order Comment: Speckaz abernathy Type: BLOOD SPECIMEN Ordering Facility: [facility] Address: [address] [place] [address] Result Comment: Elev ated m-protein (paraprotein) levels in the serum may be exhibited in patients with monoclonal gammopathies, causing falsely elevated inorganic phosphorus results. Performed By: #### 2 4323-8, 88148-1, 5642-10, 1988-01 #### [facility] CLIA [id number] [address] [place], [place] [address] [facility] [place] THERAPY NTon 02-21-2024 THERAPY NT HNO ID: [id number] Author: MARTA DELA CRUZ, PT, DPT Service: Physical Therapy Author Type: Physical Therapist Type: Therapy (PT/OT/Speech/Resp) Filed: 02/21/2024 12:22 Note Text: Physical Therapy Evaluation Summary SERVICE DATE: 02/21/2024 SERVICE TIME: 1121 to 1151 ROOM: [place] [address] PT 6 Clicks Score: 9 DISCHARGE RECOMMENDATIONS Subacute/SNF Recommended Discharge Disposition Comments: Pt tolerated PT eval fair. Pt educated on posterior hip precatuions, NWB RLE, and PT POC. Pt is max assisance. Recommend SNF at this time Recommended Discharge Disposition Due to: Patient requires active, intensive rehabilitation by multiple therapy disciplines. Anticipate the patient will tolerate 3 hours of therapy per day. ASSESSMENT Response to Therapy Interventions: Low Activity Tolerance PRECAUTIONS Fall Risk, Weight Bearing Restrictions, Posterior Hip Precautions exit bed Left, left hand swelling- xray present in room after PT eval. Right Lower Extremity Weight Bearing Status: NWB CURRENT HOSPITAL COURSE fall resulting R hip fx; s/p conversion to R LES by Dr. Gracia; Ryan hand swelling and pain noted, RN made aware Relevant Past Medical History: HTN, Migraine, Spinal Stenosis, Arthritis, R TSA 09/30/22 HOME LIVING Patient Lives With: Self/Alone Assistance Available: PRN, Other: See Comment Comments: neighbor checks in daily Entry To Home: Ramp, Stairs Number Of Stairs Into Home: 2 (RAMP OR 2 steps) Number Of Stairs To Bed/Bath: 0 Tub/Shower Type: sponge bathes - does not get in shower for last month Laundry: on main living floor; pt completes Equipment Owned: Commode- 3 in 1, Shower Chair, Wheelchair- Manual, Walker- Wheeled, Rollator, Grab Bars- Shower PRIOR FUNCTIONAL LEVEL Within Functional Limits pt reports she is able to complete basic ADLs - she keeps a BSC next to bed to use at night, she makes frozen meals, notes increased difficulty caring for self. use of rollator in home, use of transport chair to exit home with assist. pt notes 4 falls d/t poor balance and weakness. SUBJECTIVE THERAPY DIAGNOSIS Reduced mobility-other TREATMENT INTERVENTIONS Evaluation, Therapeutic Activity (38250) Timed Code Treatment (minutes): 15 Skilled Treatment Time (minutes): 15 TRAINING AND EDUCATION PROVIDED Role of Physical Therapy THERAPEUTIC SKILLS USED Physical Assist FUNCTIONAL STATUS Bed Mobility Sit to Supine: Maximal Assistance, Additional Information humphrey LE Scooting: Maximal Assistance Transfers Bed to Chair Maximal Assistance, Additional Information Bed To Chair Transfer Type: Slide Board Bed To Chair Transfer Equipment: Slide Board From chair to EOB, lack of assist RLE and LUE, minimal patient participation due to pain, x 5 small scoots on slidebaord Gait Stairs GOALS Patient will demonstrate progress to optimize functional mobility, maximize activity tolerance and endurance to maximize function upon discharge. Able to Perform HEP with: Supervision Rolling with: Supervision Transfer Supine to/from Sit with: Supervision Transfer Sit to/from Stand with: Supervision Ambulate with: Minimal Assistance (once able) Distance: 5 Device: Wheeled Walker Goal: slideboard supv Rehab Potential: Fair Progress Toward Goals: Progressing slower than expected PLAN PT Frequency: 5 Times Per Week Treatment Interventions: Education Plan for Next Visit: Gait Training SIGNATURE: Marta Dela Cruz, PT, DPT PATIENT NAME: May Leonard DATE: February 21, 2024 TIME: 12:[address] [facility] THERAPY NT HNO ID: [id number] Author: WENDY TRUONG, SUER/L Service: Occupational Therapy Author Type: Occupational Therapist Type: Therapy (PT/OT/Speech/Resp) Filed: 02/21/2024 10:06 Note Text: Occupational Therapy Evaluation Summary SERVICE DATE: 02/21/2024 SERVICE TIME: 917 to 956 ROOM: [id number] OT 6 Clicks Score: 15 DISCHARGE RECOMMENDATIONS Subacute/SNF Recommended Discharge Disposition Comments: pt presents with decreased endurance, dynamic balance, funcitonal independencec and safety. pt is at high risk for falls, would benefit from cont OT services Recommended Discharge Disposition Due to: ADL impairment, Functional deficits requiring ongoing therapy service prior to discharge home. ASSESSMENT Response to Therapy Interventions: Good Participation in Activities PRECAUTIONS Fall Risk, Weight Bearing Restrictions, Posterior Hip Precautions exit bed Left Right Lower Extremity Weight Bearing Status: NWB CURRENT HOSPITAL COURSE fall resulting R hip fx; s/p conversion to R LES by Dr. Gracia; L hand swelling and pain noted, RN made aware Relevant Past Medical History: HTN, Migraine, Spinal Stenosis, Arthritis, R TSA 09/30/22 HOME LIVING Patient Lives With: Self/Alone Assistance Available: PRN, Other: See Comment Comments: neighbor checks in daily Entry To Home: Ramp, Stairs (ramp in front of home - pt is fearful of it, has assist with w/c; rarely uses 2 steps in garage) Number Of Stairs Into Home: 2 Number Of Stairs To Bed/Bath: 0 Tub/Shower Type: sponge bathes - does not get in shower for last month Laundry: on main living floor; pt completes Equipment Owned: Commode- 3 in 1, Shower Chair, Wheelchair- Manual, Walker- Wheeled, Rollator, Grab Bars- Shower PRIOR FUNCTIONAL LEVEL Within Functional Limits pt reports she is able to complete basic ADLs - she keeps a BSC next to bed to use at night, she makes frozen meals, notes increased difficulty caring for self. use of rollator in home, use of transport chair to exit home with assist. pt notes 4 falls d/t poor balance and weakness. Baseline Cognition: Oriented to self, Oriented to place, Oriented to time, Oriented to situation SUBJECTIVE COGNITION Responsiveness: Alert Follows Commands: 3-step Commands THERAPY DIAGNOSIS Decreased activities of daily living (ADL) TREATMENT INTERVENTIONS Evaluation, Self Alf Management (44302) Timed Code Treatment (minutes): 24 Skilled Treatment Time (minutes): 39 TRAINING AND EDUCATION PROVIDED Altering Thinking Patterns, Benefits of In-Hospital Mobility, Bed Mobility, Discharge Planning, Edema Management, Energy Conservation, Functional Mobility Involving ADLs, Grooming Tasks, Lower Extremity Bathing, Lower Extremity Dressing, Positioning, Precautions/Restrictions, Role of Occupational Therapy, Safety/Judgment, Sitting Balance to Improve Reeves with ADLs/Self-Care, Transfer - Bed to Chair THERAPEUTIC SKILLS USED Activity Dosing, Cuing Tactile, Cuing Verbal, Cuing Visual FUNCTIONAL STATUS Activities of Daily Living Assist Level Additional Information Feeding Independent Grooming Minimal Assistance Bathing Upper Body Moderate Assistance Bathing Lower Body Maximal Assistance Dressing Upper Body Moderate Assistance Dressing Lower Body Maximal Assistance Toileting Maximal Assistance Mobility Assist Level Additional Information Bed Mobility Supine To Sit: Maximal Assistance Sit to Stand Stand to Sit Bed to Chair Maximal Assistance, Additional Information Bed To Chair Transfer Type: Slide Board Bed To Chair Transfer Equipment: Slide Board pt able to maintain NWB to RLE with slide board; cues to maintain sitting balance Toilet/Commode Shower Functional Mobility GOALS Patient will demonstrate progress with self-care, cognitive and/or coping needs identified to allow safe discharge to home with available support and/or physical assistance. Grooming with: Supervision Upper Body Bathing with: Supervision Upper Body Dressing with: Supervision Lower Body Bathing with: Supervision Lower Body Dressing with: Supervision Toilet Hygiene with: Supervision Chair Transfer with: Supervision Toilet Transfer with: Supervision Tolerate (minutes of functional activity): 20 Functional Activity with: Supervision Rehab Potential: Excellent PLAN OT Frequency: 5 Times Per Week Treatment Interventions: Education, Self Care/Home Management Plan for Next Visit: Bathing Training, Bed Mobility, Chair/Commode Transfer Training, Dressing Training, Edema Management, Energy Conservation, Fall Prevention, Grooming Training, Sit to Stand Transfers, Sitting Balance, Sitting Tolerance, Standing Balance, Standing Tolerance SIGNATURE: JAMEEL Iraheta/L PATIENT NAME: May Leonard DATE: February 21, 2024 TIME: 10:05 AM [facility] XR HAND 3V PA/LAT/OBL LTon 0 02-21-2024 XR HAND 3V PA/LAT/OBL LT * * *Final Report* * * DATE OF EXAM: Feb 21 2024 12:02PM [id number] [id number] - XR HAND 3V PA/LAT/OBL LT / PROCEDURE REASON: Arthritis * * * * Physician Interpretation * * * * LEFT HAND 3 VIEWS: Clinical Statement: Arthritis. Comparison: None. FINDINGS: 3 views of the left hand were obtained. There is a remote fracture deformity of the distal radius with dorsal angular deformity. There is irregularity along the articular surface of the distal radius with associated degenerative change at the radiocarpal joint. There is degenerative change at the distal radioulnar joint with subarticular sclerosis. Severe degenerative change at the triscaphe joint and first carpometacarpal joint. 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 There is a 6 mm calcification of the ulnar styloid. There is soft tissue swelling of the dorsum of the hand and wrist. No bony erosions, acute fracture or periosteal reaction. IMPRESSION: Nonspecific soft tissue swelling at the dorsum of the hand and wrist. No acute osseous abnormality identified. Osteopenia with remote fracture deformity of the distal radius and associated radiocarpal osteoarthritis. There is chondrocalcinosis. Severe degenerative change also present at the triscaphe joint and first carpometacarpal joint. 6 mm soft tissue calcification near the ulnar styloid suggesting hydroxyapatite deposition. Birthing Nurse: NIURKA Transcribe Date/Time: Feb 21 2024 1:56P Dictated by : KAREN BLUE MD This examination was interpreted and the report reviewed and electronically signed by: KAREN BLUE MD on Feb 21 2024 2:01PM EST [id number] [facility] XR HIP 3V PELV+ AP/LAT RTon 02-21-2024 XR HIP 3V PELV+ AP/LAT RT * * *Final Report* * * DATE OF EXAM: Feb 21 2024 1:03AM [id number] [id number] - XR HIP 3V PELV+ AP/LAT RT / PROCEDURE REASON: Post-operative / post-procedure assessment * * * * Physician Interpretation * * * * Right hip Provided history: * 83 years old Female * * Post-operative / post-procedure assessment Comparison Study: 02/16/2024. One AP view of the pelvis and two dedicated views of the right hip are presented for evaluation. There has been removal of the prior. Hardware with placement of right LES with the components in appropriate position. Cerclage fixation is seen over the greater trochanter and femur. Soft tissue defects are likely related to recent postoperative status. Impression: 1. Right hip revision with LES as above. Birthing Nurse: NIURKA Transcribe Date/Time: Feb 21 2024 2:44A Dictated by : DANNI ANTHONY MD This examination was interpreted and the report reviewed and electronically signed by: DANNI ANTHONY MD on Feb 21 2024 2:46AM EST [id number] [facility] ALLIED HEALTHon 02-20-2024 ALLIED HEALTH HNO ID: [id number] Author: ROBIN COVINGTON RT(R) Service: Radiology Author Type: Technologist Type: Allied Health Filed: 02/20/2024 12:28 Note Text: Radiology Service Progress Note PATIENT NAME: May Leonard DATE OF SERVICE: February 20, 2024 TIME: 12:27 PM PATIENT IDENTITY VERIFICATION COMPLETED USING TWO (2) IDENTIFIERS: Name and Date of confirmed by patient verbally and Name and Date of confirmed by identification band. FALL SCREENING: Has the patient had 2 falls in the last year or 1 fall with injury or currently using an Ambulatory Assistive Device (Walker, Cane, Wheelchair, Crutches, etc.)? Inpatient: Screened on floor PATIENT GENDER DATA: Female. status: : No status: NO. PATIENT RELEVANT IMPLANT DATA REVIEWED: Not Applicable PATIENT PRESENTS WITH AN IMPLANTABLE OR ATTACHED MOLD FILLER PLASTIC DOLLS: No RADIOLOGY DEPARTMENT: General X-ray: Exam(s) Completed: Upper Extremity X-Ray(s): Shoulder, AP / TRUE AP / AXILLARY / SUPRA OUTLET left PERIPHERAL IV DATA: Not applicable SIGNED BY: RT Alec(R) February 20, 2024 12:27 PM [facility] ANES PRE-OPon 02-20-2024 ANES PRE-OP HNO ID: [id number] Author: JOSÉ MIGUEL FULLER MD Service: Anesthesiology Author Type: Anesthesiologist Type: Anesthesia Preprocedure Evaluation Filed: 02/20/2024 17:17 Note Text: ANESTHESIOLOGY DAY OF SURGERY NOTE : 1940 Procedure Information Date/Time: 02/20/241704 Procedure: ARTHROPLASTY TOTAL HIP CONVERSION AFTER PREVIOUS HIP SURG (Right: Hip) Location: MR OR 01 / MR OR Surgeons: Danie Gracia MD Estimated body mass index is 20.24 kg/m? as calculated from the following: Height as of this encounter: 162.6 cm (5' 4"). Weight as of this encounter: 53.5 kg (117 lb 14.4 oz). Most recent hematocrit and potassium results: Hematocrit 27.5 02/20/2024 Potassium 4.2 02/20/2024 Relevant Problems CARDIO (+) Hypertension I - PHYSICAL EVALUATION AIRWAY Patient intubated: No. Tracheostomy tube not present Mallampati: II. TM distance: >3 FB. Neck ROM: full ROM without neurological symptoms. Mouth opening: adequate. Short neck: no. Thick neck: no Castro present: no Lip Bite Test: II Microretrognathia/Micronag thia/Recessed Chin: No DENTAL Dental findings: teeth intact. Additional exam findings: yes. CARDIOVASCULAR Rhythm: irregular Murmur: murmur present. PULMONARY Breath sounds clear to auscultation. II - ANESTHESIA PLAN ASA Score: 3 Anesthetic Plan: general Airway type: ETT The patient is not a current smoker. NPO Status: adequate Beta Kaci Monitoring Plan Monitoring plan: standard ASA and invasive hemodynamic monitoring. Monitoring method: arterial Line Post Procedure Analgesic Plan Postoperative analgesic plan: multimodal analgesia. Informed Consent Anesthetic risks, benefits, alternatives, personnel and consent discussed: yes. Patient / Responsible Libertarian agrees to proceed: yes Patient / Surrogate agrees to blood products: Yes Potential Anesthesia issues that may suggest increased risk of complications or contraindication to planned procedure:. Patient with frequent ectopy on exam. Grade 2/6 systolic murmur. Will check ecg pre op. Vitals Value Taken Time BP 175/96 02/20/24 1700 Pulse 113 02/20/24 1700 Resp 18 02/20/24 1700 Temp 36.9 ?C (98.5 ?F) 02/20/24 1700 SpO2 93 % 02/20/24 1700 Facility-Administered Medications as of 02/20/2024 Medication Dose Route Frequency [Held on Transfer] psyllium Husk 0.52 g cap(s) 0.52 g ORAL AT BEDTIME PRN [Held on Transfer] docusate sodium 100 mg cap(s) (COLACE) 100 mg ORAL BID PRN [Held on Transfer] morphine 2 mg injection 2 mg INTRAVENOUS q 4 H PRN [Held on Transfer] polyethylene glycol 3350 17 g packet 17 g ORAL DAILY [Held on Transfer] oxyCODONE IR 10 mg tab(s) (ROXICODONE) 10 mg ORAL q 4 H PRN [COMPLETED] ondansetron (PF) 4 mg injection (ZOFRAN) 4 mg INTRAVENOUS ONCE [COMPLETED] morphine 4 mg injection 4 mg INTRAVENOUS ONCE [Held on Transfer] NaCl 0.9% iv flush bag 20 mL INTRAVENOUS PRN [Held on Transfer] lactated ringers iv infusion 75 mL/hr INTRAVENOUS CONTINUOUS [Held on Transfer] ondansetron 4 mg tab(s) (ZOFRAN) 4 mg ORAL q 6 H PRN Or [Held on Transfer] ondansetron (PF) 4 mg injection (ZOFRAN) 4 mg INTRAVENOUS q 6 H PRN [Held on Transfer] acetaminophen 650 mg tab(s) (TYLENOL) 650 mg ORAL q 6 H PRN [Held on Transfer] LORazepam 0.5 mg tab(s) (ATIVAN) 0.5 mg ORAL AT BEDTIME [Held on Transfer] lisinopril 20 mg tab(s) (ZESTRIL) 20 mg ORAL DAILY Outpatient Medications as of 02/20/2024 Medication Sig LISINOPRIL ORAL Take 20 mg by mouth every morning. LORazepam (ATIVAN) 0.5 mg Take by mouth daily at bedtime. multivit-min/iron/folic/savannah tein (MULTIVITAMIN WOMEN 50 PLUS ORAL) Take by mouth once daily. Last dose 4/5 calcium carbonate/vitamin D3 (CALCIUM 600 + D ORAL) Take by mouth once daily. Last dose /5 I have interviewed and examined the patient. I have reviewed the medical record and/or the pre-anesthesia evaluation, pertinent labs, and test results. This contains updated information obtained within 48 hours of Surgery/Procedure. SIGNATURE: José Miguel Fuller MD PATIENT NAME: May Leonard DATE: February 20, 2024 TIME: 5:13 PM CSN: [id number] Normal [facility] ARTERIAL BLOOD GASESon 02-19 Base deficit (BldA) [Moles/Vol] -2 mmol/L Normal -2-0 [facility] Comment on above: Order Comment: Speci men Type: BLOOD SPECIMEN Ordering Facility: [facility] Address: [address] [place] [address] [place] [address] Performed By: #### 2 432-8, , 5642-10, 1988-01 #### [facility] CLIA [id number] [address] [place], [place] [address] [place] Calcium.ionized (Bld) [Mass/Vol] 1.07 mmol/L Low 1.08-1.30 [facility] [facility] Comment on above: Order Comment: Speci men Type: BLOOD SPECIMEN Ordering Facility: [facility] Address: [address] [place] [address] Performed By: #### 2 4322-8, , 5642-10, 1988-01 #### [facility] CLIA [id number] [address] [place], [place] [address] [place] Carboxyhemoglobin (BldA) [Mass fraction] 1.1 % Normal 0.0-2.0 [facility] Comment on above: Order Comment: Speci men Type: BLOOD SPECIMEN Ordering Facility: [facility] Address: [address] [place] [address] Result Comment: Carb oxyhemoglobin Reference Range for Smokers: 2.0-8.0% Performed By: #### 2 4322-8, , 5642-10, 1988-01 #### [facility] CLIA [id number] [address] [place], [place] [address] [place] CO2 (Bld) [Partial pressure] 37 mm Hg Normal 36-46 [facility] Comment on above: Order Comment: Speci men Type: BLOOD SPECIMEN Ordering Facility: [facility] Address: [address] [place] [address] Performed By: #### 2 432-8, , 5642-10, 1988-01 #### [facility] CLIA [id number] [address] [place], [place] [address] [place] CO2 adjusted to patient's actual temperature (Bld) [Partial pressure] Normal [facility] Comment on above: Order Comment: Speci men Type: BLOOD SPECIMEN Ordering Facility: [facility] Address: [facility] [place] [address] Performed By: #### 2 432-8, , 5642-10, 1988-01 #### [facility] CLIA [id number] [address] [place] [address] [place] Glucose [Mass/Vol] 173 mg/dL High 60-105 [facility] Comment on above: Order Comment: Speci men Type: BLOOD SPECIMEN Ordering Facility: [facility] Address: [address] [place] [address] Performed By: #### 2 432-8, , 5642-10, 1988-01 #### [facility] CLIA [id number] [address] [place] [address] [place] HCO3 (Bld) [Moles/Vol] 23 mmol/L Normal 22-26 [facility] Comment on above: Order Comment: Speci men Type: BLOOD SPECIMEN Ordering Facility: [facility] Address: [facility] [place] [place] [id number] Performed By: #### 2 432-8, , 5642-10, 1988-01 #### [facility] CLIA [id number] [address] [place] [address] [place] Hemoglobin (Bld) [Mass/Vol] 9.1 g/dL Low 11.5-15.5 [facility] Comment on above: Order Comment: Speci men Type: BLOOD SPECIMEN Ordering Facility: [facility] Address: [address] [place] [address] Performed By: #### 2 432-8, , 5642-10, 1988-01 #### [facility] CLIA [id number] [address] [place] [address] [place] Lactate [Moles/Vol] 0.9 mmol/L Normal 0.5-2.2 [facility] Comment on above: Order Comment: Speci men Type: BLOOD SPECIMEN Ordering Facility: [facility] Address: [address] [place] [address] Performed By: #### 2 432-8, , 5642-10, 1988-01 #### [facility] CLIA [id number] [address] [place] [address] [place] Methemoglobin (Bld) [Mass fraction] 0.1 % Normal 0.0-1.5 [facility] Comment on above: Order Comment: Speci men Type: BLOOD SPECIMEN Ordering Facility: [facility] Address: [address] [place] [address] Performed By: #### 2 432-8, , 5642-10, 1988-01 #### [facility] CLIA [id number] [address] [place] [address] [place] Oxygen (Bld) [Partial pressure] 161 mm Hg High 85-95 [facility] Comment on above: Order Comment: Speci men Type: BLOOD SPECIMEN Ordering Facility: [facility] Address: [facility] [place] [address] Performed By: #### 2 4323-8, , 5642-10, 1988-01 #### [facility] CLIA [id number] [address] [place] [address] [place] Oxygen adjusted to patient's actual temperature (Bld) [Partial pressure] Normal [facility] Comment on above: Order Comment: Speci men Type: BLOOD SPECIMEN Ordering Facility: [facility] Address: [address] [place] [address] Performed By: #### 2 4323-8, , 5642-10, 1988-01 #### [facility] CLIA [id number] [address] [place] [address] [place] Oxyhemoglobin (BldA) [Mass fraction] 98 % Normal 95-98 [facility] Comment on above: Order Comment: Speci men Type: BLOOD SPECIMEN Ordering Facility: [facility] Address: [address] [place] [address] Performed By: #### 2 4323-8, 69893-3, 5642-10, 1988-01 #### [facility] CLIA [id number] [address] [place] [address] [place] pH (Bld) 7.41 [pH] Normal 7.35-7.45 [facility] Comment on above: Order Comment: Speci men Type: BLOOD SPECIMEN Ordering Facility: [facility] Address: [facility] [place] [address] Performed By: #### 2 4322-8, , 5642-10, 1988-01 #### [facility] CLIA [id number] [address] [place], [place] [address] [place] pH adjusted to patient's actual temperature (Bld) Normal [facility] Comment on above: Order Comment: Speci men Type: BLOOD SPECIMEN Ordering Facility: [facility] Address: [facility] [place] [address] Performed By: #### 2 4322-8, , 5642-10, 1988-01 #### [facility] CLIA [id number] [address] [place], [place] [address] [place] Potassium [Moles/Vol] 4.1 mmol/L Normal 2.5-6.0 [facility] Comment on above: Order Comment: Speci men Type: BLOOD SPECIMEN Ordering Facility: [facility] Address: [facility] [place] [address] Performed By: #### 2 4322-8, , 5642-10, 1988-01 #### [facility] CLIA [id number] [address] [place] [address] [place] Sodium [Moles/Vol] 123 mmol/L Low 136-144 [facility] Comment on above: Order Comment: Speci men Type: BLOOD SPECIMEN Ordering Facility: [facility] Address: [facility] [place] [address] Performed By: #### 2 432-8, , 5642-10, 1988-01 #### [facility] CLIA [id number] [address] [place] [address] [place] Base deficit (BldA) [Moles/Vol] mmol/L Normal -2-0 [facility] Comment on above: Order Comment: Speci men Type: BLOOD SPECIMEN Ordering Facility: [facility] Address: [address] [place] [address] Performed By: #### 2 4323-8, , 5642-10, 1988-01 #### [facility] CLIA [id number] [address] [place], [place] [address] [place] Calcium.ionized (Bld) [Mass/Vol] 1.10 mmol/L Normal 1.08-1.30 [facility] Comment on above: Order Comment: Speci men Type: BLOOD SPECIMEN Ordering Facility: [facility] Address: [address] [place] [address] Performed By: #### 2 4322-8, , 5642-10, 1988-01 #### [facility] CLIA [id number] [address] [place], [place] [address] [place] Carboxyhemoglobin (BldA) [Mass fraction] 0.4 % Normal 0.0-2.0 [facility] Comment on above: Order Comment: Speci men Type: BLOOD SPECIMEN Ordering Facility: [facility] Address: [address] [place] [address] Result Comment: Carb oxyhemoglobin Reference Range for Smokers: 2.0-8.0% Performed By: #### 2 3-8, , 5642-10, 1988-01 #### [facility] CLIA [id number] [address] [place] [address] [place] CO2 (Bld) [Partial pressure] 34 mm Hg Low 36-46 [facility] Comment on above: Order Comment: Speci men Type: BLOOD SPECIMEN Ordering Facility: [facility] Address: [address] [place] [address] Performed By: #### 2 4322-8, , 5642-10, 1988-01 #### [facility] CLIA [id number] [address] [place] [address] [place] CO2 adjusted to patient's actual temperature (Bld) [Partial pressure] [facility] Comment on above: Order Comment: Speci men Type: BLOOD SPECIMEN Ordering Facility: [facility] Address: [address] [place] [address] Performed By: #### 2 432-8, , 5642-10, 1988-01 #### [facility] CLIA [id number] [address] [place] [address] [place] FIO2 100.0 % Normal [facility] Comment on above: Order Comment: Speci men Type: BLOOD SPECIMEN Ordering Facility: [facility] Address: [address] [place] [address] Performed By: #### 2 432-8, , 5642-10, 1988-01 #### [facility] CLIA [id number] [address] [place], [place] [address] [place] Glucose [Mass/Vol] 128 mg/dL High 60-105 [facility] Comment on above: Order Comment: Speci men Type: BLOOD SPECIMEN Ordering Facility: [facility] Address: [address] [place] [address] Performed By: #### 2 432-8, , 5642-10, 1988-01 #### [facility] CLIA [id number] [address] [place] [address] [place] HCO3 (Bld) [Moles/Vol] 24 mmol/L Normal 22-26 [facility] Comment on above: Order Comment: Speci men Type: BLOOD SPECIMEN Ordering Facility: [facility] Address: [address] [place] [address] Performed By: #### 2 432-8, , 5642-10, 1988-01 #### [facility] CLIA [id number] [address] [place] [address] [place] Hemoglobin (Bld) [Mass/Vol] 9.9 g/dL Low 11.5-15.5 [facility] Comment on above: Order Comment: Speci men Type: BLOOD SPECIMEN Ordering Facility: [facility] Address: [facility] [place] [address] Performed By: #### 2 432-8, , 5642-10, 1988-01 #### [facility] CLIA [id number] [address] [place] [address] [place] Lactate [Moles/Vol] 0.9 mmol/L Normal 0.5-2.2 [facility] Comment on above: Order Comment: Speci men Type: BLOOD SPECIMEN Ordering Facility: [facility] Address: [facility] [place] [address] Performed By: #### 2 432-8, , 5642-10, 1988-01 #### [facility] CLIA [id number] [address] [place] [address] [place] Methemoglobin (Bld) [Mass fraction] 0.2 % Normal 0.0-1.5 [facility] Comment on above: Order Comment: Speci men Type: BLOOD SPECIMEN Ordering Facility: [facility] Address: [facility] [place] [address] Performed By: #### 2 432-8, , 5642-10, 1988-01 #### [facility] CLIA [id number] [address] [place] [address] [place] Oxygen (Bld) [Partial pressure] 469 mm Hg High 85-95 [facility] Comment on above: Order Comment: Speci men Type: BLOOD SPECIMEN Ordering Facility: [facility] Address: [facility] [place] [address] Performed By: #### 2 432-8, , 5642-10, 1988-01 #### [facility] CLIA [id number] [address] [place] [address] [place] Oxygen adjusted to patient's actual temperature (Bld) [Partial pressure] Normal [facility] Comment on above: Order Comment: Speci men Type: BLOOD SPECIMEN Ordering Facility: [facility] Address: [address] [place] [address] Performed By: #### 2 4323-8, , 5642-10, 1988-01 #### [facility] CLIA [id number] [address] [place] [address] [place] Oxyhemoglobin (BldA) [Mass fraction] 99 % High 95-98 [facility] Comment on above: Order Comment: Speci men Type: BLOOD SPECIMEN Ordering Facility: [facility] Address: [address] [place] [address] Performed By: #### 2 4323-8, , 5642-10, 1988-01 #### [facility] CLIA [id number] [address] [place] [address] [place] pH (Bld) 7.45 [pH] Normal 7.35-7.45 [facility] Comment on above: Order Comment: Speci men Type: BLOOD SPECIMEN Ordering Facility: [facility] Address: [address] [place] [address] Performed By: #### 2 4323-8, , 5642-10, 1988-01 #### [facility] CLIA [id number] [address] [place], [place] [address] [place] pH adjusted to patient's actual temperature (Bld) Normal [facility] Comment on above: Order Comment: Speci men Type: BLOOD SPECIMEN Ordering Facility: [facility] Address: [address] [place] [address] Performed By: #### 2 4323-8, 53647-6, 5642-10, 1988-01 #### [facility] CLIA [id number] [address] [place] [address] [place] PO2 / FIO2 RATIO 469 mmHg Normal >300 [facility] Comment on above: Order Comment: Speci men Type: BLOOD SPECIMEN Ordering Facility: [facility] Address: [address] [place] [address] Performed By: #### 2 4323-8, 43446-8, 5643-2, 1988-01 #### [facility] CLIA [id number] [address] [place], [place] [address] [place] Potassium [Moles/Vol] 3.7 mmol/L Normal 2.5-6.0 [facility] Comment on above: Order Comment: Speci men Type: BLOOD SPECIMEN Ordering Facility: [facility] Address: [address] [place] [address] Performed By: #### 2 4323-8, 98261-6, 5642-2, 1988-01 #### [facility] CLIA [id number] [address] [place], [place] [address] [place] Sodium [Moles/Vol] 124 mmol/L Low 136-144 [facility] Comment on above: Order Comment: Speci men Type: BLOOD SPECIMEN Ordering Facility: [facility] Address: [address] [place] [address] Performed By: #### 2 4323-8, 24797-7, 5642-10, 1988-01 #### [facility] CLIA [id number] [address] [place] [address] [place] Bacteria Spec Anaerobe Culto n 02-20-2024 Bacteria identified Anaer cx Nom (Unsp spec) CULTURE, ANAEROBE: Negative for anaerobes. ORGANISM ID: 1 In thioglycollate broth only Dermacoccus nishinomiyaensis Normal skin ollie. No further workup. [facility] Comment on above: Performed By: #### T SCR #### [facility] CLIA [id number] [address] [place], [place] [id number] [place] Bacteria identified Anaer cx Nom (Unsp spec) CULTURE, ANAEROBE: Anaerobe culture reviewed, negative at day 14. [facility] Comment on above: Performed By: #### T SCR #### [facility] CLIA [id number] [address] [place] [address] [place] Bacteria identified Anaer cx Nom (Unsp spec) CULTURE, ANAEROBE: Anaerobe culture reviewed, negative at day 14. [facility] Comment on above: Performed By: #### T SCR #### [facility] CLIA [id number] [address] [place] [address] [place] Bacteria identified Anaer cx Nom (Unsp spec) CULTURE, ANAEROBE: Anaerobe culture reviewed, negative at day 14. [facility] Comment on above: Performed By: #### 6 35-3, 97731-9 ####[facility] [id number] [place] [address] [place] Bacteria identified Anaer cx Nom (Unsp spec) CULTURE, ANAEROBE: Anaerobe culture reviewed, negative at day 14. [facility] Comment on above: Performed By: #### 4 3408-4, 635-3 ####[facility] [id number] [place] [address] [place] Bacteria Tiss Culton 024 Bacteria identified Cx Nom (Tiss) CULTURE, TISSUE: No growth 14 days GRAM STAIN: Few Polymorphonuclear leukocytes No organisms seen [facility] Comment on above: Performed By: #### T SCR #### [facility] CLIA [id number] [address] [place] [address] [place] Bacteria identified Cx Nom (Tiss) CULTURE, TISSUE: No growth 14 days GRAM STAIN: Rare Polymorphonuclear leukocytes No organisms seen [facility] Comment on above: Performed By: #### T SCR #### [facility] CLIA [id number] [address] [place] [address] [place] Bacteria identified Cx Nom (Tiss) CULTURE, TISSUE: No growth 14 days GRAM STAIN: Rare Polymorphonuclear leukocytes No organisms seen [facility] Comment on above: Performed By: #### T SCR #### [facility] CLIA [id number] [address] [place] [address] [place] Bacteria identified Cx Nom (Tiss) CULTURE, TISSUE: No growth 14 days GRAM STAIN: Few Polymorphonuclear leukocytes No organisms seen [facility] Comment on above: Performed By: #### 6 35-3, 59651-3 ####[facility] [id number] [place] [address] [place] [facility] Bacteria identified Cx Nom (Tiss) CULTURE, TISSUE: No Growth 14 days - Thioglycollate broth GRAM STAIN: Rare Polymorphonuclear leukocytes No organisms seen Normal [facility] Comment on above: Performed By: #### 4 3408-4, 635-3 ####[facility] [id number] [place] [address] [place] Basic metabolic 2000 panelon 02-19-2023 Anion gap [Moles/Vol] 5 mmol/L Normal 5-16 [facility] Comment on above: Order Comment: Speci men Type: BLOOD SPECIMEN Ordering Facility: [facility] Address: [address] [place] [address] Performed By: #### 1 4979-9, 02315-9 #### [facility] CLIA [id number] [address] [place] [address] [place] Calcium [Mass/Vol] 9.0 mg/dL Normal 8.5-10.5 [facility] Comment on above: Order Comment: Speci men Type: BLOOD SPECIMEN Ordering Facility: [facility] Address: [address] [place] [address] Performed By: #### 1 4979-9, 41723-7 #### [facility] CLIA [id number] [address] [place] [address] [place] Chloride [Moles/Vol] 97 mmol/L Low 98-107 [facility] Comment on above: Order Comment: Speci men Type: BLOOD SPECIMEN Ordering Facility: [facility] Address: [address] [place] [address] Performed By: #### 1 4979-9, 38542-4 #### [facility] CLIA [id number] [address] [place] [address] [place] CO2 [Moles/Vol] 27 mmol/L Normal 21-32 [facility] Comment on above: Order Comment: Speci men Type: BLOOD SPECIMEN Ordering Facility: [facility] Address: [address] [place] [address] Performed By: #### 1 4979-9, 77277-7 #### [facility] CLIA [id number] [address] [place], [place] [address] [place] Creatinine [Mass/Vol] 0.43 mg/dL Low 0.51-0.95 [facility] Comment on above: Order Comment: Speci men Type: BLOOD SPECIMEN Ordering Facility: [facility] Address: [address] [place] [address] Result Comment: Amy ents receiving either N-Acetylcysteine (NAC) or Metamizole prior to venipuncture, may have falsely depressed results. Performed By: #### 1 4979-9, 93977-5 #### [facility] CLIA [id number] [address] [place] [address] [place] Creatinine and Glomerular filtration rate.predicted panel (S/P/Bld) 98 mL/min/1.73m??? Normal >=60 [facility] Comment on above: Order Comment: Jenaro josemanuel Type: BLOOD SPECIMEN Ordering Facility: [facility] Address: [address] [place] [address] Result Comment: Gely mated Glomerular Filtration Rate (eGFR) is calculated using the 2020 CKD-EPI creatinine equation. This equation utilizes serum creatinine, sex, and age as parameters. The creatinine assay has traceable calibration to isotope dilution-mass spectrometry. Refer to KDIGO guidelines for clinical interpretation. In patients with unstable renal function, e.g. those with acute kidney injury, the eGFR may not accurately reflect actual GFR. Performed By: #### 1 4979-9, 04147-8 #### [facility] CLIA [id number] [address] [place], [place] [address] [place] Glucose [Mass/Vol] 138 mg/dL High 70-100 [facility] Comment on above: Order Comment: Jenaro josemanuel Type: BLOOD SPECIMEN Ordering Facility: [facility] Address: [address] [place] [address] Result Comment: The [place] [employer] (ADA) provides guidance for cutoff values for fasting glucose and random glucose. The ADA defines fasting as no caloric intake for at least 8 hours. Fasting plasma glucose results between 100 to 125 mg/dL indicate increased risk for diabetes (prediabetes). Fasting plasma glucose results greater than or equal to 126 mg/dL meet the criteria for diagnosis of diabetes. In the absence of unequivocal hyperglycemia, results should be confirmed by repeat testing. In a patient with classic symptoms of hyperglycemia or hyperglycemic crisis, random plasma glucose results greater than or equal to 200 mg/dL meet the criteria for diagnosis of diabetes. Reference: Standards of Medical Care in Diabetes 2016, [place] [employer]. Diabetes Care. 2016.39(Suppl 1). Results may be falsely elevated after the administration of Sulfapyridine. Results may be falsely depressed after the administration of Sulfasalazine. Performed By: #### 1 4979-9, 20647-3 #### [facility] CLIA [id number] [address] [place] [address] [place] Potassium [Moles/Vol] 4.2 mmol/L Normal 3.5-5.1 [facility] Comment on above: Order Comment: Speci men Type: BLOOD SPECIMEN Ordering Facility: [facility] Address: [address] [place] [address] Performed By: #### 1 4979-9, 71253-1 #### [facility] CLIA [id number] [address] [place] [address] [place] Sodium [Moles/Vol] 129 mmol/L Low 136-145 [facility] Comment on above: Order Comment: Speci men Type: BLOOD SPECIMEN Ordering Facility: [facility] Address: [address] [place] [id number] Performed By: #### 1 4979-9, 08080-8 #### [facility] CLIA [id number] [address] [place] [address] [place] Urea nitrogen [Mass/Vol] 14 mg/dL Normal 7-26 [facility] Comment on above: Order Comment: Speci men Type: BLOOD SPECIMEN Ordering Facility: [facility] Address: [address] [place] [address] Performed By: #### 1 4979-9, 12277-8 #### [facility] CLIA [id number] [address] [place], [place] [address] [place] CBC panel Auto (Bld)on 02-19 Erythrocyte distribution width (RBC) [Ratio] 14.0 % Normal 11.5-15.0 [facility] Comment on above: Order Comment: Speci men Type: BLOOD SPECIMEN Ordering Facility: [facility] Address: [address] [place] [address] Performed By: #### 1 4979-9, 74822-8 #### [facility] CLIA [id number] [address] [place] [address] [place] Hematocrit (Bld) [Volume fraction] 27.5 % Low 36.0-46.0 [facility] Comment on above: Order Comment: Speci men Type: BLOOD SPECIMEN Ordering Facility: [facility] Address: [address] [place] [address] Performed By: #### 1 4979-9, 21219-8 #### [facility] CLIA [id number] [address] [place] [address] OF [place] Hemoglobin (Bld) [Mass/Vol] 9.4 g/dL Low 11.5-15.5 [facility] Comment on above: Order Comment: Speci men Type: BLOOD SPECIMEN Ordering Facility: [facility] Address: [address] [place] [address] Performed By: #### 1 4979-9, 57238-9 #### [facility] CLIA [id number] [address] [place], [place] [address] [place] MCH (RBC) [Entitic mass] 31.9 pg Normal 26.0-34.0 [facility] Comment on above: Order Comment: Speci men Type: BLOOD SPECIMEN Ordering Facility: [facility] Address: [address] [place] [address] Performed By: #### 1 4979-9, 52074-8 #### [facility] CLIA [id number] [address] [place] [address] [place] MCHC (RBC) [Mass/Vol] 34.2 g/dL Normal 30.5-36.0 [facility] Comment on above: Order Comment: Speci men Type: BLOOD SPECIMEN Ordering Facility: [facility] Address: [address] [place] [address] Performed By: #### 1 4979-9, 04186-5 #### [facility] CLIA [id number] [address] [place] [address] [place] MCV (RBC) [Entitic vol] 93.2 fL Normal 80.0-100.0 [facility] Comment on above: Order Comment: Speci men Type: BLOOD SPECIMEN Ordering Facility: [facility] Address: [address] [place] [address] Performed By: #### 1 4979-9, 33407-5 #### [facility] CLIA [id number] [address] [place] [address] [place] Nucleated RBC (Bld) [#/Vol] 10*3/uL Normal <0.01 [facility] Comment on above: Order Comment: Speci men Type: BLOOD SPECIMEN Ordering Facility: [facility] Address: [address] [place] [address] Performed By: #### 1 4979-9, 40269-0 #### [facility] CLIA [id number] [address] [place] [address] [place] Platelet mean volume (Bld) [Entitic vol] 9.0 fL Normal 9.0-12.7 [facility] Comment on above: Order Comment: Speci men Type: BLOOD SPECIMEN Ordering Facility: [facility] Address: [address] [place] [address] Performed By: #### 1 4979-9, 17126-6 #### [facility] CLIA [id number] [address] [place] [address] [place] Platelets (Bld) [#/Vol] 389 10*3/uL Normal 150-400 [facility] Comment on above: Order Comment: Speci men Type: BLOOD SPECIMEN Ordering Facility: [facility] Address: [address] [place], [place] [address] Performed By: #### 1 4979-9, 25512-6 #### [facility] CLIA [id number] [address] [place], [place] [address] [facility] RBC (Bld) [#/Vol] 2.95 10*6/uL Low 3.90-5.20 [facility] Comment on above: Order Comment: Speci men Type: BLOOD SPECIMEN Ordering Facility: [facility] Address: [address] [place], [place] [address] Performed By: #### 1 4979-9, 86925-6 #### [facility] CLIA [id number] [address] [place], [place] [address] [facility] WBC (Bld) [#/Vol] 12.19 10*3/uL High 3.70-11.00 [facility] Comment on above: Order Comment: Speci men Type: BLOOD SPECIMEN Ordering Facility: [facility] Address: [address] [place], [place] [address] Performed By: #### 1 4979-9, 64023-7 #### [facility] CLIA [id number] [address] [place], [place] [address] [facility] ECG COMPLETEon 02-20-2024 ECG COMPLETE Ventricular Rate : 9 1 BPM Atrial Rate : 91 BPM P-R Interval : 136 ms QRS Duration : 86 ms Q-T Interval : 346 ms QTC Calculation(Bazett) : 425 ms Calculated P Laurens : 46 degrees Calculated R Laurens : -29 degrees Calculated T Laurens : 2 degrees Sinus rhythm with Blocked Premature atrial complexes with Premature supraventricular complexes with Aberrancy and with frequent Premature ventricular complexes Left axis deviation Non-specific ST abnormality Lateral leads Nonspecific T wave abnormality Inferior and Anterior leads Abnormal ECG When compared with ECG of 16-Feb-2024 18:17, Premature ventricular complexes are now Present Premature supraventricular complexes are now Present Vent. rate has increased by 40 bpm T wave amplitude has decreased in Inferior and Anterior leads Confirmed by KAREN MCGREGOR MD ([id number]) on 02/26/2024 12:50:26 PM NAME : MAY LEONARD PID : [id number] : 1940 Gender : Female Race : ORD : [id number] Procedure Date : Feb 20 2024 17:20:33 Edit Date : Feb 26 2024 12:50:30 Diagnosis: Sinus rhythm with Blocked Premature atrial complexes with Premature supraventricular complexes with Aberrancy and with frequent Premature ventricular complexes Left axis deviation Non-specific ST abnormality Lateral leads Nonspecific T wave abnormality Inferior and Anterior leads Abnormal ECG When compared with ECG of 16-Feb-2024 18:17, Premature ventricular complexes are now Present Premature supraventricular complexes are now Present Vent. rate has increased by 40 bpm T wave amplitude has decreased in Inferior and Anterior leads Confirmed by KAREN MCGREGOR MD ([id number]) on 02/26/2024 12:50:26 PM Test Reason : STAT Location : : [place] [address] Overread By : KAREN MCGREGOR MD Edited By : KAREN MCGREGOR MD Referred By : , Acquired by : DARCY PONCE Normal [facility] Microorganism Spec Culton Microorganism identified Cx Nom (Unsp spec) CULTURE, FUNGAL: No Fungus isolated after 28 days FUNGAL SMEAR: No fungus seen [facility] Comment on above: Performed By: #### 5 7021-8 #### [facility] CLIA [id number] [address] [place] [address] [place] [facility] Microorganism identified Cx Nom (Unsp spec) CULTURE, AFB: No Acid Fast Bacilli isolated after 42 days AFB STAIN: No acid fast bacilli seen by flurochrome stain [facility] Comment on above: Performed By: #### 5 7021-8 #### [facility] CLIA [id number] [address] [place] [address] [place] Microorganism identified Cx Nom (Unsp spec) CULTURE, FUNGAL: No Fungus isolated after 28 days FUNGAL SMEAR: No fungus seen [facility] Comment on above: Performed By: #### 5 7021-8 #### [facility] CLIA [id number] [address] [place] [address] [place] Microorganism identified Cx Nom (Unsp spec) CULTURE, AFB: No Acid Fast Bacilli isolated after 42 days AFB STAIN: No acid fast bacilli seen by flurochrome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 kg/(m2). O2 Therapy: Room Air Exam: Gen: No acute distress, lying in bed Right lower extremity: No open wounds or gross fomites. Mild to moderate discomfort with motion of the hip. Active EHL/FHL/DF/PF. Foot and toes well-perfused. Compartments of the foot, leg, thigh soft and compressible. Imaging Studies: Strays and CT images of the right hip and femur were reviewed. There is evidence of broken cephalomedullary nail in the proximal aspect of the right hip/femur. There is failure of the hardware and nonunion of the previous fracture. 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 Elevated ESR and CRP. Injury a few months ago. Plan: Further treatment options were discussed with the patient today. I feel that she likely needs a conversion to a total hip arthroplasty. Discussed that this is a fairly major surgery and I would like to have her optimized and I do think we should rule out infection as she has gone on to a nonunion and has hardware failure. Her inflammatory markers are elevated. I discussed risk, benefits, alternatives to aspiration of the right hip. After discussion, she would like to proceed. Will plan to proceed to with a right hip arthrocentesis under fluoroscopy. Informed sent obtained documented. Definitive surgical plans pending aspiration results. Electronically signed by: Danie Gracia MD [facility] NURSING PROGon 02-17-2024 NURSING PROG HNO ID: [id number] Author: XAVI JO RN Service: ? Author Type: Registered Nurse Type: Nursing Progress Note Filed: 02/17/2024 17:37 Note Text: Lab made RN aware of pathology test unable to be run. RN made Dr Gracia aware that the body fluid cell count lab test is unable to be ran. [facility] THERAPY NTon 02-17-2024 THERAPY NT HNO ID: [id number] Author: MARTA DELA CRUZ, PT, DPT Service: Physical Therapy Author Type: Physical Therapist Type: Therapy (PT/OT/Speech/Resp) Filed: 02/17/2024 10:08 Note Text: PHYSICAL THERAPY MISSED VISIT SERVICE DATE: 02/17/2024 SERVICE TIME: ROOM: [place] [address] Patient not seen due to Incomplete Orders (pending ortho consult). SIGNATURE: Marta Dela Cruz PT, DPT PATIENT NAME: May Leonard DATE: February 17, 2024 TIME: 10:08 AM [facility] THERAPY NT HNO ID: [id number] Author: WENDY TRUONG OTR/Ryan Service: Occupational Therapy Author Type: Occupational Therapist Type: Therapy (PT/OT/Speech/Resp) Filed: 02/17/2024 07:38 Note Text: OCCUPATIONAL THERAPY MISSED VISIT SERVICE DATE: 02/17/2024 SERVICE TIME: 0737 ROOM: [place] [address] Patient not seen due to Clinical Appropriateness (await ortho consult and POC). SIGNATURE: JAMEEL Iraheta/Ryan PATIENT NAME: May Leonard DATE: February 17, 2024 TIME: 7:[address] [facility] CBC W Auto Differential pane l (Bld)on 02-16-2024 Basophils (Bld) [#/Vol] 0.04 10*3/uL Normal <0.11 [facility] Comment on above: Order Comment: Speci men Type: BLOOD SPECIMEN Ordering Facility: [facility] Address: [address] [place] [address] Performed By: #### 5 7021-8 #### [facility] CLIA [id number] [address] [place] [address] [place] Basophils/100 WBC (Bld) 0.6 % Normal [facility] Comment on above: Order Comment: Speci men Type: BLOOD SPECIMEN Ordering Facility: [facility] Address: [address] [place] [address] Performed By: #### 5 7021-8 #### [facility] CLIA [id number] [address] [place] [address] [place] Differential cell count method Nom (Bld) Auto Normal [facility] Comment on above: Order Comment: Speci men Type: BLOOD SPECIMEN Ordering Facility: [facility] Address: [address] [place] [address] Performed By: #### 5 7021-8 #### [facility] CLIA [id number] [address] [place] [address] [place] Eosinophils (Bld) [#/Vol] 0.21 10*3/uL Normal <0.46 [facility] Comment on above: Order Comment: Speci men Type: BLOOD SPECIMEN Ordering Facility: [facility] Address: [address] [place] [address] Performed By: #### 5 7021-8 #### [facility] CLIA [id number] [address] [place] [address] [place] Eosinophils/100 WBC (Bld) 3.4 % Normal [facility] Comment on above: Order Comment: Speci men Type: BLOOD SPECIMEN Ordering Facility: [facility] Address: [address] [place] [address] Performed By: #### 5 7021-8 #### [facility] CLIA [id number] [address] [place] [address] [place] Erythrocyte distribution width (RBC) [Ratio] 14.5 % Normal 11.5-15.0 [facility] Comment on above: Order Comment: Speci men Type: BLOOD SPECIMEN Ordering Facility: [facility] Address: [address] [place] [address] Performed By: #### 5 7021-8 #### [facility] CLIA [id number] [address] [place] [address] [place] Hematocrit (Bld) [Volume fraction] 28.2 % Low 36.0-46.0 [facility] Comment on above: Order Comment: Speci men Type: BLOOD SPECIMEN Ordering Facility: [facility] Address: [address] [place] [address] Performed By: #### 5 7021-8 #### [facility] CLIA [id number] [address] [place] [address] [place] Hemoglobin (Bld) [Mass/Vol] 9.4 g/dL Low 11.5-15.5 [facility] Comment on above: Order Comment: Speci men Type: BLOOD SPECIMEN Ordering Facility: [facility] Address: [address] [place] [address] Performed By: #### 5 7021-8 #### [facility] CLIA [id number] [address] [place] [address] [place] Immature granulocytes (Bld) [#/Vol] 10*3/uL Normal <0.10 [facility] Comment on above: Order Comment: Speci men Type: BLOOD SPECIMEN Ordering Facility: [facility] Address: [address] [place] [address] Performed By: #### 5 7021-8 #### [facility] CLIA [id number] [address] [place] [address] [place] Immature granulocytes/100 WBC (Bld) 0.3 % Normal [facility] Comment on above: Order Comment: Speci men Type: BLOOD SPECIMEN Ordering Facility: [facility] Address: [address] [place] [address] Performed By: #### 5 7021-8 #### [facility] CLIA [id number] [address] [place] [address] [place] Lymphocytes (Bld) [#/Vol] 1.62 10*3/uL Normal 1.00-4.00 [facility] Comment on above: Order Comment: Speci men Type: BLOOD SPECIMEN Ordering Facility: [facility] Address: [address] [place] [address] Performed By: #### 5 7021-8 #### [facility] CLIA [id number] [address] [place] [address] Lymphocytes/100 WBC (Bld) 26.1 % Normal [facility] Comment on above: Order Comment: Speci men Type: BLOOD SPECIMEN Ordering Facility: [facility] Address: [address] [place] [address] Performed By: #### 5 7021-8 #### [facility] CLIA [id number] [address] [place] [address] [place] MCH (RBC) [Entitic mass] 32.0 pg Normal 26.0-34.0 [facility] Comment on above: Order Comment: Speci men Type: BLOOD SPECIMEN Ordering Facility: [facility] Address: [address] [place] [place] [address] Performed By: #### 5 7021-8 #### [facility] CLIA [id number] [address] [place] [address] [place] MCHC (RBC) [Mass/Vol] 33.3 g/dL Normal 30.5-36.0 [facility] Comment on above: Order Comment: Speci men Type: BLOOD SPECIMEN Ordering Facility: [facility] Address: [address] [place] [address] Performed By: #### 5 7021-8 #### [facility] CLIA [id number] [address] [place] [address] [place] MCV (RBC) [Entitic vol] 95.9 fL Normal 80.0-100.0 [facility] Comment on above: Order Comment: Speci men Type: BLOOD SPECIMEN Ordering Facility: [facility] Address: [address] [place] [address] Performed By: #### 5 7021-8 #### [facility] CLIA [id number] [address] [place] [address] [place] Monocytes (Bld) [#/Vol] 0.50 10*3/uL Normal <0.87 [facility] Comment on above: Order Comment: Speci men Type: BLOOD SPECIMEN Ordering Facility: [facility] Address: [address] [place] [address] Performed By: #### 5 7021-8 #### [facility] CLIA [id number] [address] [place] [address] [place] Monocytes/100 WBC (Bld) 8.1 % Normal [facility] Comment on above: Order Comment: Speci men Type: BLOOD SPECIMEN Ordering Facility: [facility] Address: [address] [place] [address] Performed By: #### 5 7021-8 #### [facility] CLIA [id number] [address] [place] [address] [place] Neutrophils (Bld) [#/Vol] 3.81 10*3/uL Normal 1.45-7.50 [facility] Comment on above: Order Comment: Speci men Type: BLOOD SPECIMEN Ordering Facility: [facility] Address: [address] [place] [address] Performed By: #### 5 7021-8 #### [facility] CLIA [id number] [address] [place] [address] [place] Neutrophils/100 WBC (Bld) 61.5 % Normal [facility] Comment on above: Order Comment: Speci men Type: BLOOD SPECIMEN Ordering Facility: [facility] Address: [address] [place] [address] Performed By: #### 5 7021-8 #### [facility] CLIA [id number] [address] [place] [address] [place] Nucleated RBC (Bld) [#/Vol] 10*3/uL Normal <0.01 [facility] Comment on above: Order Comment: Speci men Type: BLOOD SPECIMEN Ordering Facility: [facility] Address: [address] [place] [address] Performed By: #### 5 7021-8 #### [facility] CLIA [id number] [address] [place] [address] [place] Nucleated RBC/100 WBC (Bld) [Ratio] 0.0 /[address] [facility] Comment on above: Order Comment: Speci men Type: BLOOD SPECIMEN Ordering Facility: [facility] Address: [address] [place] [address] Performed By: #### 5 7021-8 #### [facility] CLIA [id number] [address] [place] [address] [place] Platelet mean volume (Bld) [Entitic vol] 8.7 fL Low 9.0-12.7 [facility] Comment on above: Order Comment: Speci men Type: BLOOD SPECIMEN Ordering Facility: [facility] Address: [address] [place] [address] Performed By: #### 5 7021-8 #### [facility] CLIA [id number] [address] [place] [address] [place] Platelets (Bld) [#/Vol] 404 10*3/uL High 150-400 [facility] Comment on above: Order Comment: Speci men Type: BLOOD SPECIMEN Ordering Facility: [facility] Address: [address] [place] [address] Performed By: #### 5 7021-8 #### [facility] CLIA [id number] [address] [place] [address] [place] RBC (Bld) [#/Vol] 2.94 10*6/uL Low 3.90-5.20 [facility] Comment on above: Order Comment: Speci men Type: BLOOD SPECIMEN Ordering Facility: [facility] Address: [address] [place] [address] Performed By: #### 5 7021-8 #### [facility] CLIA [id number] [address] [place], [place] [address] [place] WBC (Bld) [#/Vol] 6.20 10*3/uL Normal 3.70-11.00 [facility] Comment on above: Order Comment: Speci men Type: BLOOD SPECIMEN Ordering Facility: [facility] Address: [address] [place], [place] [address] Performed By: #### 5 7021-8 #### [facility] CLIA [id number] [address] [place], [place] [address] [place] CRP SerPl-mCncon 02-16-2024 CRP [Mass/Vol] 2.1 mg/dL High <1.0 [facility] Comment on above: Order Comment: Juani men Type: BLOOD SPECIMEN Ordering Facility: [facility] Address: [address] [place], [place] [address] Performed By: #### 2 4323-8, 77586-1, 5643-2, 1987- #### [facility] CLIA [id number] [address] [place], [place] [address] [place] HIP WO CONTRAST RTon 02-03 CT HIP WO CONTRAST RT * * *Final Report* * * DATE OF EXAM: Feb 16 2024 8:53PM [facility] 0080 - CT HIP WO CONTRAST RT / PROCEDURE REASON: Fracture, hip * * * * Physician Interpretation * * * * EXAMINATION: CT HIP WO CONTRAST RT CLINICAL HISTORY: Fracture, hip TECHNIQUE: Contiguous imaging performed through the right hip without contrast. Sagittal coronal reformatted images were generated. Images are reviewed and bone and soft tissue windows. Metal suppression technique was utilized. CT Dose-Length Product (DLP): 647.27 mGy*cm CT Dose Reduction Employed: Automated exposure control(AEC) and iterative recon COMPARISON: Radiographs dated same day. RESULT: Displaced comminuted fracture of the intertrochanteric right proximal femur. The distal fracture fragment is displaced anteriorly by just over one shaft width superiorly by approximately 3.5 cm. There is an associated fracture through the right femoral intramedullary nail through the distal for the dynamic hip screw. The proximal portion of the femoral intramedullary nail is displaced and tilted medially. Small adjacent associated hematoma. Osteopenia. Mild right hip degenerative changes. Changes the visualized lumbar spine and right sacroiliac joint. Faint sclerosis in the right sacrum raises possibility of chronic sacral insufficiency fracture. No acute sacral fracture identified. Small right inguinal hernia which contains trace fluid. Possible partially visualized left inguinal hernia (series 3 image 93). Partially visualized mass or cyst in the midline of the pelvis posterior to the uterus measuring at least 8.2 x 6.5 cm (for example series 606 image 87). Diverticulosis of the visualized colon without evidence of acute diverticular inflammation. Localizer images: No other significant finding. IMPRESSION: Partially visualized mass or cyst in the pelvis measuring at least 8.2 x 6.5 cm is incompletely evaluated. Further assessment with pelvic ultrasound or CT with pelvis is recommended. Displaced comminuted fracture of the intertrochanteric right femur with associated fracture of right femoral intramedullary nail through the entire whole for the dynamic hip screw as described. Associated small hematoma. ACTIONABLE RESULT: FOLLOW-UP Acuity: Actionable Findings: Female reproductive tract (pelvis, adnexa) Routing code: WH_1 Recommendation: Unlisted Recommendation (see report) Time Frame: Non-urgent, but prompt follow-up COMMUNICATION: Results will be communicated with the ordering provider via [employer] staff message or phone message by [employer] within 2 business days of report finalization. --END OF FINDING-- Birthing Nurse: NIURKA Transcribe Date/Time: Feb 16 2024 9:21P Dictated by : AMELIA BELLA MD This examination was interpreted and the report reviewed and electronically signed by: AMELIA BELLA MD on Feb 16 2024 9:33PM EST [id number] ACTIONABLE Invalid Interpretation Code [facility] Comprehensive metabolic 2000 panelon 02-16-2024 Albumin [Mass/Vol] 2.9 g/dL Low 3.2-5.0 [facility] Comment on above: Order Comment: Speci men Type: BLOOD SPECIMEN Ordering Facility: [facility] Address: [address] [place] [address] Performed By: #### 2 4323-8, 83206-2, 5643-2, 1988-01 #### [facility] CLIA [id number] [address] [place] [address] [place] ALP [Catalytic activity/Vol] 55 U/L Normal 45-117 [facility] Comment on above: Order Comment: Speci men Type: BLOOD SPECIMEN Ordering Facility: [facility] Address: [address] [place] [address] Performed By: #### 2 4323-8, 65020-0, 43-2, 1988-01 #### [facility] CLIA [id number] [address] [place] [address] [place] ALT [Catalytic activity/Vol] 13 U/L Normal 13-61 [facility] Comment on above: Order Comment: Speci men Type: BLOOD SPECIMEN Ordering Facility: [facility] Address: [address] [place] [address] Result Comment: Resu lts may be falsely depressed after the administration of Sulfasalazine and/or Sulfapyridine. Performed By: #### 2 4323-8, 81064-9, 43-, 1988-01 #### [facility] CLIA [id number] [address] [place], [place] [address] [place] Anion gap [Moles/Vol] 4 mmol/L Low 5-16 [facility] Comment on above: Order Comment: Speci men Type: BLOOD SPECIMEN Ordering Facility: [facility] Address: [address] [place] [address] Performed By: #### 2 4323-8, 68779-3, 43-2, 1988-01 #### [facility] CLIA [id number] [address] [place], [place] [address] [place] AST [Catalytic activity/Vol] 18 U/L Normal 8-34 [facility] Comment on above: Order Comment: Speci men Type: BLOOD SPECIMEN Ordering Facility: [facility] Address: [address] [place] [address] Result Comment: Resu lts may be falsely depressed after the administration of Sulfasalazine and/or Sulfapyridine. Performed By: #### 2 4323-8, 13623-8, 5642-10, 1988-01 #### [facility] CLIA [id number] [address] [place] [address] [place] Bilirubin [Mass/Vol] 0.5 mg/dL Normal 0.2-1.0 [facility] Comment on above: Order Comment: Speci men Type: BLOOD SPECIMEN Ordering Facility: [facility] Address: [address] [place], [place] [id number] Performed By: #### 2 432-8, , 5642-10, 1988-01 #### [facility] CLIA [id number] [address] [place], [place] [address] [place] Calcium [Mass/Vol] 9.3 mg/dL Normal 8.5-10.5 [facility] Comment on above: Order Comment: Speci men Type: BLOOD SPECIMEN Ordering Facility: [facility] Address: [address] [place], [place] [address] Performed By: #### 2 4323-8, , 5642-10, 1988-01 #### [facility] CLIA [id number] [address] [place], [place] [address] [place] Chloride [Moles/Vol] 103 mmol/L Normal 98-107 [facility] Comment on above: Order Comment: Speci men Type: BLOOD SPECIMEN Ordering Facility: [facility] Address: [address] [place] [address] Performed By: #### 2 4323-8, , 5642-10, 1988-01 #### [facility] CLIA [id number] [address] [place] [address] [place] CO2 [Moles/Vol] 27 mmol/L Normal 21-32 [facility] Comment on above: Order Comment: Speci men Type: BLOOD SPECIMEN Ordering Facility: [facility] Address: [address] [place] [address] Performed By: #### 2 4323-8, , 5642-10, 1988-01 #### [facility] CLIA [id number] [address] [place] [address] [place] Creatinine [Mass/Vol] 0.49 mg/dL Low 0.51-0.95 [facility] Comment on above: Order Comment: Jenaro abernathy Type: BLOOD SPECIMEN Ordering Facility: [facility] Address: [address] [place] [address] Result Comment: Amy ents receiving either N-Acetylcysteine (NAC) or Metamizole prior to venipuncture, may have falsely depressed results. Performed By: #### 2 4323-8, , 5642-10, 1988-01 #### [facility] CLIA [id number] [address] [place] [address] Creatinine and Glomerular filtration rate.predicted panel (S/P/Bld) 95 mL/min/1.73m??? Normal >=60 [facility] Comment on above: Order Comment: Jenaro abernathy Type: BLOOD SPECIMEN Ordering Facility: [facility] Address: [address] [place] [address] Result Comment: Gely mated Glomerular Filtration Rate (eGFR) is calculated using the 2020 CKD-EPI creatinine equation. This equation utilizes serum creatinine, sex, and age as parameters. The creatinine assay has traceable calibration to isotope dilution-mass spectrometry. Refer to KDIGO guidelines for clinical interpretation. In patients with unstable renal function, e.g. those with acute kidney injury, the eGFR may not accurately reflect actual GFR. Performed By: #### 2 4323-8, , 5642-10, 1988-01 #### [facility] CLIA [id number] [address] [place], [place] [address] [place] Glucose [Mass/Vol] 95 mg/dL Normal 70-100 [facility] Comment on above: Order Comment: Jenaro abernathy Type: BLOOD SPECIMEN Ordering Facility: [facility] Address: [address] [place] [address] Result Comment: The [place] Diabetes [employer] (ADA) provides guidance for cutoff values for fasting glucose and random glucose. The ADA defines fasting as no caloric intake for at least 8 hours. Fasting plasma glucose results between 100 to 125 mg/dL indicate increased risk for diabetes (prediabetes). Fasting plasma glucose results greater than or equal to 126 mg/dL meet the criteria for diagnosis of diabetes. In the absence of unequivocal hyperglycemia, results should be confirmed by repeat testing. In a patient with classic symptoms of hyperglycemia or hyperglycemic crisis, random plasma glucose results greater than or equal to 200 mg/dL meet the criteria for diagnosis of diabetes. Reference: Standards of Medical Care in Diabetes 2016, [place] [employer] Association. Diabetes Care. 2016.39(Suppl 1). Results may be falsely elevated after the administration of Sulfapyridine. Results may be falsely depressed after the administration of Sulfasalazine. Performed By: #### 2 4323-8, , 5642-10, 1988-01 #### [facility] CLIA [id number] [address] [place] [address] [place] Potassium [Moles/Vol] 4.4 mmol/L Normal 3.5-5.1 [facility] Comment on above: Order Comment: Speci men Type: BLOOD SPECIMEN Ordering Facility: [facility] Address: [address] [place] [address] Performed By: #### 2 4323-8, , 5642-10, 1988-01 #### [facility] CLIA [id number] [address] [place], [place] [address] [place] Protein [Mass/Vol] 6.0 g/dL Normal 6.0-8.5 [facility] Comment on above: Order Comment: Speci men Type: BLOOD SPECIMEN Ordering Facility: [facility] Address: [address] [place] [address] Performed By: #### 2 4323-8, 19260-1, 5642-10, 1988-01 #### [facility] CLIA [id number] [address] [place], [place] [address] [place] Sodium [Moles/Vol] 134 mmol/L Low 136-145 [facility] Comment on above: Order Comment: Speci men Type: BLOOD SPECIMEN Ordering Facility: [facility] Address: [address] [id number] Performed By: #### 2 4323-8, 79612-7, 5643-2, 1988-01 #### [facility] CLIA [id number] [address] [place] [address] [place] [facility] Urea nitrogen [Mass/Vol] 22 mg/dL Normal 03-30 [facility] Comment on above: Order Comment: Speci men Type: BLOOD SPECIMEN Ordering Facility: [facility] Address: [address] [place] [address] Performed By: #### 2 4323-8, 06181-7, 5643-2, 1988-01 #### [facility] CLIA [id number] [address] [place] [address] [place] ECG COMPLETEon 02-16-2024 ECG COMPLETE Ventricular Rate : 5 1 BPM Atrial Rate : 51 BPM P-R Interval : 158 ms QRS Duration : 84 ms Q-T Interval : 428 ms QTC Calculation(Bazett) : 394 ms Calculated P Laurens : 45 degrees Calculated R Laurens : -19 degrees Calculated T Laurens : 14 degrees Sinus bradycardia Otherwise normal ECG No previous ECGs available Confirmed by MITCHELL SHERMAN MD ([id number]) on 02/17/2024 9:34:30 AM NAME : MAY LEONARD PID : [id number] : 1940 Gender : Female Race : ORD : [id number] Procedure Date : Feb 16 2024 18:17:21 Edit Date : Feb 17 2024 09:34:34 Diagnosis: Sinus bradycardia Otherwise normal ECG No previous ECGs available Confirmed by MITCHELL SHERMAN MD ([id number]) on 02/17/2024 9:34:30 AM Test Reason : STAT Location : 0 : ED EDFTE Overread By : MITCHELL SHERMAN MD Edited By : MITCHELL SHERMAN MD Referred By : , Acquired by : [id number], [facility] ED NOTEon 02-16-2024 ED NOTE HNO ID: [id number] Author: MICHAEL BOND RN Service: ? Author Type: Registered Nurse Type: ED Notes Filed: 02/16/2024 19:09 Note Text: Bed: 46-ED Expected date: Expected time: Means of arrival: Comments: [facility] ED PROV NOTEon 02-16-2024 ED PROV NOTE HNO ID: [id number] Author: MUSTAPHA PROCTOR DO Service: Emergency Medicine Author Type: Physician Type: ED Provider Notes Filed: 02/16/2024 20:48 Note Text: EMERGENCY DEPARTMENT NOTE [facility] May Leonard [address] HISTORY OF PRESENT ILLNESS: May Leonard is a 83 year old female who presents for evaluation of a known right-sided hip fracture. The patient states that she has had several mechanical falls recently, in particular, she did have a fall down onto her right-sided hip at the end of December. Since this time, she has had significant difficulty with ambulating secondary to right-sided hip pain. She does have a past history of a hip fracture to the side last year, repaired by Dr. Bagley. She was seen today at [facility] for the symptoms who obtained an x-ray and found that she had a right-sided hip fracture, she was referred to the emergency department secondary to this. At the time of evaluation, she does admit to discomfort related to the right-sided hip, no numbness or weakness, no headaches, denies any systemic symptoms. PHYSICAL EXAM: Initial Vital Signs: BP 145/66 Pulse (!) 52 Temp 36.7 ?C (98.1 ?F) (Oral) Resp 17 Ht 162.6 cm (5' 4") Wt 49 kg (108 lb) SpO2 99% BMI 18.54 kg/m? Constitutional: Stated Age HENT: NC/AT, Mucous membranes moist Neck: No midline cervical spinal tenderness, Supple, Trachea midline Cardiac: Regular rate and rhythm, S1 and S2 normal, no S3, S4, no murmurs gallops or rubs Thorax AND Lungs: Clear to auscultation bilaterally, no wheezes, crackles or rhonchi, No chest tenderness Abdomen: Soft, non-tender, non-distended, no rebound or guarding Back: No CVA tenderness, no midline thoracic or lumbar spinal tenderness Skin: No rashes, warm, dry, pink Extremities: Right-sided lower extremity is shortened and externally rotated, bilateral 2+ palpable DP pulses, strength and sensation intact to the bilateral extremities, No deformities Musculoskeletal: Normal tone Neurologic: Alert and oriented x3, Sensory and motor strength intact in all extremities, no focal deficits noted. CURRENT MEDICATIONS: No current facility-administered medications for this encounter. Current Outpatient Medications: aspirin, enteric coated (ASPIRIN, ENTERIC COATED) 325 mg EC tablet, Take 1 tablet by mouth twice daily for 14 days., Disp: 28 tablet, Rfl: 0 LISINOPRIL ORAL, Take 20 mg by mouth every morning., Disp: , Rfl: LORazepam (ATIVAN) 0.5 mg, Take by mouth daily at bedtime., Disp: , Rfl: multivit-min/iron/folic/savannah tein (MULTIVITAMIN WOMEN 50 PLUS ORAL), Take by mouth once daily. Last dose 12/08, Disp: , Rfl: calcium carbonate/vitamin D3 (CALCIUM 600 + D ORAL), Take by mouth once daily. Last dose 12/08, Disp: , Rfl: ALLERGIES: Naproxen and Prednisone MEDICAL DECISION MAKING/ED COURSE RADIOLOGY: I personally reviewed the radiographic images. The radiologist's interpretation reveals: XR HIP GENERAL 3V PELV/AP/LAT RIGHT Final Result IMPRESSION: Right intertrochanteric femoral neck fracture. Prior fixation hardware shows fracturing and displacement of the proximal femoral trace. Birthing Nurse: [facility] Transcribe Date/Time: Feb 16 2024 8:32P Dictated by : ANGELA RAMOS MD This examination was interpreted and the report reviewed and electronically signed by: ANGELA RAMOS MD on Feb 16 2024 8:37PM EST XR CHEST 1V FRONTAL PORT Final Result IMPRESSION: No evidence of an acute cardiopulmonary process Birthing Nurse: [facility] Transcribe Date/Time: Feb 16 2024 8:07P Dictated by : JOSE COLBERT MD This examination was interpreted and the report reviewed and electronically signed by: JOSE COLBERT MD on Feb 16 2024 8:07PM EST CT HIP WO IVCON RIGHT (Results Pending) XR FEMUR GENERAL 2V AP/LAT RIGHT (Results Pending) LABS: Labs Reviewed COMPREHENSIVE METABOLIC PANEL - Abnormal; Notable for the following components: Result Value Albumin 2.9 (*) Creatinine 0.49 (*) Sodium 134 (*) Anion Gap 4 (*) All other components within normal limits COMPLETE BLOOD COUNT AND DIFFERENTIAL - Abnormal; Notable for the following components: RBC 2.94 (*) Hemoglobin 9.4 (*) Hematocrit 28.2 (*) Platelet Count 404 (*) MPV 8.7 (*) All other components within normal limits C-REACTIVE PROTEIN - Abnormal; Notable for the following components: CRP 2.1 (*) All other components within normal limits MAGNESIUM - Normal PROTHROMBIN TIME - Normal ACTIVATED PARTIAL THROMBOPLASTIN TIME - Normal Narrative: Unfractionated Heparin Therapeutic Ranges: Standard Heparin Nomogram: 53 to 78 seconds (anti-Xa level of 0.3 to 0.7 U/ml) Low Dose/ACS Nomogram: 49 to 67 seconds (anti-Xa level of 0.2 to 0.5 U/ml) Stroke Treatment Nomogram: 49 to 67 seconds (anti-Xa level of 0.2 to 0.5 U/ml) Note: The APTT therapeutic range has been determined for the current lot of laboratory APT (more content not included)... Normal [facility] ED Triage Noteon 02-16-2024 ED Triage Note HNO ID: [id number] Author: AIDEN JORGE PA-C Service: ? Author Type: Physician Technical Fellow Type: ED Triage Notes Filed: 02/16/2024 17:56 Note Text: ED TRIAGE PROVIDER NOTE Patient Name: May Leonard Service Date: 02/16/24 BRIEF HPI: This is a 83 year old female who presents to the ED with: Right hip pain. Patient had a fall at the end of December falling directly on her right hip and has been attempting to ambulate on her right hip. She was seen at [facility] whom told her that she had a right hip fracture. She was sent here by the physician by referral by Dr. bagley whom spoke with Dr. Gracia to plan for surgery tomorrow. She has been having difficulty ambulating at home and cannot get around independently. She most recently had surgery on this hip last year when she had broke it previously. BRIEF EXAM: NAD Awake and Alert Non labored breathing No focal neurological deficits Right hip: T there appears to be shortening and internal rotation of the right lower extremity. The Lumbosacral spine, Femur, and Pelvis are not tender. The lateral hip is tender. Proximal fibula is not tender. Patella is not tender. The calves are not tender. Active range of motion of the joints without ligamentous laxity. There is no obvious joint or bony deformity. Negative for joint effusions.Compartments soft. INITIAL WORKUP AND DECISION MAKING: Orders Placed This Encounter XR HIP GENERAL 3V PELV/AP/LAT RIGHT XR CHEST 1V FRONTAL PORT COMPREHENSIVE METABOLIC PANEL (BMP+LFT) MAGNESIUM BLOOD CBC + AUTO DIFF PT/INR Activated PTT Ethanol/Alcohol SIGNATURE: Aiden Jorge PA-C Normal [facility] ESR Westergren method (Bld) [Velocity]on 02-16-2024 ESR (Bld) [Velocity] 31 mm/h High 0-30 [facility] Comment on above: Order Comment: Jenaro abernathy Type: BLOOD SPECIMEN Ordering Facility: [facility] Address: [address] [place] [address] Performed By: #### 5 7021-8 #### [facility] CLIA [id number] [address] [place] [address] [place] Ethanol SerPl-mCncon 024 Ethanol [Mass/Vol] mg/dL Normal <0.010 [facility] Comment on above: Order Comment: Jenaro abernathy Type: BLOOD SPECIMEN Ordering Facility: [facility] Address: [address] [place] [address] Performed By: #### 2 4323-8, 50105-0, 5643-2, 1988-01 #### [facility] CLIA [id number] [address] [place] [address] [place] HISTORY PHYSICALon HISTORY PHYSICAL HNO ID: [id number] Author: JOSEPH AGUILERA MD Service: General Internal Medicine Author Type: Physician Type: H&P Filed: 02/16/2024 20:59 Note Text: INTERNAL MEDICINE ADMISSION NOTE HISTORY AND PHYSICAL Patient Name: May Leonard Admission Date: 02/16/2024 Date of Evaluation: 02/16/2024 Time of Evaluation: 8:36 PM CHIEF COMPLAINT: " Right hip pain". HPI: A 83 year old female with a significant PMH of arthritis/hypertension/spi nal stenosis Presents with right hip pain. Patient had a fall at the end of December falling directly on her right hip and has been attempting to ambulate on her right hip. She was seen at [facility] whom told her that she had a right hip fracture. She was sent here by the physician by referral by Dr. bagley whom spoke with Dr. Gracia to plan for surgery tomorrow. She has been having difficulty ambulating at home and cannot get around independently. She most recently had surgery on this hip last year when she had broke it previously. Vitals were stable Labs at baseline Right hip x-ray> Right intertrochanteric femoral neck fracture. REVIEW OF SYSTEMS: Constitutional: No fever, No chills, No sweats. Eye: No double vision, No visual disturbances. Ear/Nose/Mouth/Throat: No ear pain, No nasal congestion, No sore throat. Respiratory: No shortness of breath, No cough, No hemoptysis, No wheezing. Cardiovascular: No palpitations, No peripheral edema, No syncope. Gastrointestinal: No nausea, No vomiting, No diarrhea, No hematemesis. Genitourinary: No dysuria, No discahrge. PAST MEDICAL HISTORY: PAST MEDICAL HISTORY Diagnosis Date Arthritis spine and foot Benign neoplasm of colon Hypertension Migraine, intractable Spinal stenosis PAST SURGICAL HISTORY: PAST SURGICAL HISTORY Procedure Laterality Date COLONOSCOPY FLX DX W/COLLJ SPEC WHEN PFRMD 09/10/2008 Colonoscopy LEG SURGERY HX 2002 surgery on lower leg and ankle POST-CATARACT LASER SURGERY Bilateral PT ED ORTHOPAEDICS Right 09/30/2022 REVISE MEDIAN N/CARPAL TUNNEL SURG Bilateral TONSILLECTOMY PRIMARY/SECONDARY Tonsillectomy SOCIAL HISTORY: Social History Tobacco Use Smoking status: Former Types: Cigarettes Quit date: 1960 Years since quittin.4 Smokeless tobacco: Never Substance Use Topics Alcohol use: Yes Comment: bourbon 1 drink daily Drug use: Never FAMILY HISTORY: FAMILY HISTORY Problem Relation Age of Onset Heart disease Father HOME MEDICATIONS: No current facility-administered medications for this encounter. Current Outpatient Medications Medication Sig aspirin, enteric coated (ASPIRIN, ENTERIC COATED) 325 mg EC tablet Take 1 tablet by mouth twice daily for 14 days. LISINOPRIL ORAL Take 20 mg by mouth every morning. LORazepam (ATIVAN) 0.5 mg Take by mouth daily at bedtime. multivit-min/iron/folic/savannah tein (MULTIVITAMIN WOMEN 50 PLUS ORAL) Take by mouth once daily. Last dose 4/5 calcium carbonate/vitamin D3 (CALCIUM 600 + D ORAL) Take by mouth once daily. Last dose 4/5 ALLERGIES: ALLERGIES Allergen Reactions Naproxen Other: See Comments Become very anxious and passed out Prednisone Other: See Comments Made her very anxious PHYSICAL EXAM: Vital Signs: BP 145/66 Pulse (!) 52 Temp 36.7 ?C (98.1 ?F) (Oral) Resp 17 Ht 162.6 cm (5' 4") Wt 49 kg (108 lb) SpO2 99% BMI 18.54 kg/m? Body mass index is 18.54 kg/m?. Constitutional: No acute distress, Responsive, Normal habitus, and Well-nourished Neck: Trachea midline No jugular venous distension Cardiovascular: Regular rate and rhythm, normal S1 and S2, no murmurs, rubs, or gallops No peripheral edema Respiratory: Normal respiratory effort. Lungs clear bilaterally. Abdomen: Soft, non-tender, non-distended. Normal bowel sounds. No hepatosplenomegaly. Psychiatric: Alert and oriented x self, place, time, and setting Normal mood/affect DATA: LABORATORY TESTS: CBC: Recent Labs 02/16/241826 WBC 6.20 HB 9.4* PLT 404* MCV 95.9 NEUTP 61.5 ABSNEUT 3.81 LYMPHP 26.1 EODINP 3.4 CHEM: Recent Labs 02/16/241826 NA 134* K 4.4 CA 9.3 MG 1.8 ANION 4* CHLOR 103 CO2 27 GLUC 95 BUN 22 CREAT 0.49* HEPATIC: Recent Labs 02/16/241826 ALT 13 AST 18 TBILI 0.5 ALKPHOS 55 ALB 2.9* TPROT 6.0 URINALYSIS:No results for input(s): "SPGR", "UBACTERIA", "LEUKEST", "SSA", "UWBC", "URBC", "UHB", "UPROT", "UGLUC", "UKET" in the last 168 hours. Invalid input(s): "NITR" COAG: Recent Labs 02/16/241826 APTT 28.2 INR 0.9 CARDIAC: No results for input(s): "CKMB", "CKMBP", "TROPT", "PBNP" in the last 168 hours. Assessment: #Right intertrochanteric femoral neck fracture Orthopedic consult Oxycodone/morphine for pain Zofran for nausea and vomiting N.p.o. past midnight IVF at 75 cc/h # Chronic co-morbidities HTN> hold lisinopril on day of surgery Anxiety/depre (more content not included)... Normal [facility] Magnesium SerPl-mCncon 02-15 Magnesium [Mass/Vol] 1.8 mg/dL Normal 1.6-2.6 [facility] Comment on above: Order Comment: Jenaro abernathy Type: BLOOD SPECIMEN Ordering Facility: [facility] Address: [address] [place], [place] [address] Performed By: #### 2 4323-8, 51854-6, 5643-2, 1988- #### [facility] CLIA [id number] [address] [place] [address] [place] PT panel Coag (PPP)on 2023 INR Coag (PPP) [Relative time] 0.9 {INR} Normal 0.9-1.3 [facility] Comment on above: Order Comment: Jenaro abernathy Type: BLOOD SPECIMEN Ordering Facility: [facility] Address: [address] [id number] Result Comment: Kerry min K Antagonist (VKA) Therapeutic Range: INR 2 to 3 (Target INR of 2.5) Note: For patients treated with VKA drugs, such as warfarin, the [employer] 2012 Guideline recommends a therapeutic INR range of 2 to 3 (target INR of 2.5). This recommendation includes high-risk patients with antiphospholipid syndrome with previous arterial or venous thromboembolism, current-generation mechanical or bioprosthetic aortic heart valve replacement. Note: Patients with mechanical aortic valve replacement and additional risk factors for thromboembolic events (atrial fibrillation, previous thromboembolism, LV dysfunction, hypercoagulable conditions) or an older generation mechanical AVR (i.e., ball in-Cage) or any mechanical MVR should have a INR therapeutic range of 2.5 to 3.5 (target INR of 3). Edmund RAMIREZ, et al. Chest 2012, 141:7S-47S Ashlyn FLORIAN et al. [facility] 2017, 70: 252-289 Performed By: #### 1 4979-9, 76884-4 #### [facility] CLIA [id number] [address] [place] [address] [place] PT Coag (PPP) [Time] 10.2 s Normal 9.7-13.0 [facility] Comment on above: Order Comment: Speci men Type: BLOOD SPECIMEN Ordering Facility: [facility] Address: [address] [place] [address] Performed By: #### 1 4979-9, 19541-8 #### [facility] CLIA [id number] [address] [place] [address] [place] TYPE + SCREENon 02-16-2024 ABO A [facility] Comment on above: Order Comment: Speci men Type: BLOOD SPECIMEN Ordering Facility: [facility] Address: [address] [place] [address] Performed By: #### T SCR #### [facility] CLIA [id number] [address] [place] [address] OF [place] HISTORICAL AB SCR STATUS Negative [facility] Comment on above: Order Comment: Speci men Type: BLOOD SPECIMEN Ordering Facility: [facility] Address: [address] [place] [address] Performed By: #### T SCR #### [facility] CLIA [id number] [address] [place] [address] [place] Rh Nom (Bld) Negative [facility] Comment on above: Order Comment: Speci men Type: BLOOD SPECIMEN Ordering Facility: [facility] Address: [address] [place] [address] Performed By: #### T SCR #### [facility] CLIA [id number] [address] [place] [address] [place] TYPE AND SCREEN EXPIRATION 02/19/2024 23:59 [facility] Comment on above: Order Comment: Speci men Type: BLOOD SPECIMEN Ordering Facility: [facility] Address: [address] [place] [address] Performed By: #### T SCR #### [facility] CLIA [id number] [address] [place], [place] [id number] [place] XR CHEST 1V FRONTAL PORTon 0 02-16-2024 XR CHEST 1V FRONTAL PORT * * *Final Report* * * DATE OF EXAM: Feb 16 2024 7:43PM [id number] - XR CHEST 1V FRONTAL PORT / PROCEDURE REASON: Pre-op * * * * Physician Interpretation * * * * EXAMINATION: CHEST RADIOGRAPH (PORTABLE SINGLE VIEW AP) Exam Date/Time: 02/16/2024 7:43 PM CLINICAL HISTORY: Pre-op MQ: [id number] Comparison: None RESULT: Lines, tubes, and devices: Right shoulder arthroplasty. Lungs and pleura: The lungs are free of infiltrate or effusion Cardiomediastinal silhouette: Stable cardiomediastinal silhouette. Other: . IMPRESSION: No evidence of an acute cardiopulmonary process Birthing Nurse: NIURKA Transcribe Date/Time: Feb 16 2024 8:07P Dictated by : JOSE COLBERT MD This examination was interpreted and the report reviewed and electronically signed by: JOSE COLBERT MD on Feb 16 2024 8:07PM EST [id number] Normal [facility] XR FEMUR 2V AP/LAT RTon 02-03 XR FEMUR 2V AP/LAT RT * * *Final Report* * * DATE OF EXAM: Feb 16 2024 8:54PM [id number] - XR FEMUR 2V AP/LAT RT / PROCEDURE REASON: Fracture, femur * * * * Physician Interpretation * * * * XR FEMUR 2V AP/LAT RT CLINICAL HISTORY: PATIENT/TECHNOLOGIST PROVIDED HISTORY: FRACTURE CLINICAL INFORMATION ( PROVIDED BY ORDERING CLINICIAN) : Fracture, femur COMPARISON: Right hip radiographs 1324. TECHNIQUE: AP and lateral views right femur, 4 films. RESULT: See impression. IMPRESSION: Right femoral intramedullary trace and femoral neck screw with displaced fracture of the proximal intramedullary trace. The mid and distal intramedullary trace is intact with no evidence of loosening or fracture. Comminuted displaced right femoral intertrochanteric fracture and lateral soft tissue swelling. The mid and distal femur is intact. No evidence of knee or hip joint dislocation. Medial and lateral knee chondrocalcinosis. Visualized right hemipelvis is intact. Birthing Nurse: PSCB Transcribe Date/Time: Feb 16 2024 9:22P Dictated by : TRU PFEIFFER MD This examination was interpreted and the report reviewed and electronically signed by: TRU PFEIFFER MD on Feb 16 2024 9:29PM EST [id number] [facility] XR HIP 3V PELV+ AP/LAT RTon 02-16-2024 XR HIP 3V PELV+ AP/LAT RT * * *Final Report* * * DATE OF EXAM: Feb 16 2024 7:43PM [id number] - XR HIP 3V PELV+ AP/LAT RT / PROCEDURE REASON: Hip pain, acute, fx suspected, initial exam * * * * Physician Interpretation * * * * EXAM: XR HIP 3V PELV+ AP/LAT RT Exam Date/Time: 02/16/2024 7:43 PM CLINICAL HISTORY: Hip pain, acute, fx suspected, initial exam RESULT: AP views of pelvis with AP and lateral views right hip. Orthopedic fixation changes of prior right femoral neck fracture including a long femoral intramedullary nail. There is an age-indeterminate comminuted intertrochanteric right femoral neck fracture with fracturing of the proximal aspect of the femoral trace with the fracture component displaced medially toward the joint. There is approximately 7 cm of foreshortening. No dislocation. Generalized soft tissue edema throughout the right hip region. Advanced osteopenia. Degenerative changes noted in the visualized lower lumbar spine. Bilateral hip DJD. Degenerative changes are seen in bilateral sacroiliac and pubic symphysis joints.. IMPRESSION: Right intertrochanteric femoral neck fracture. Prior fixation hardware shows fracturing and displacement of the proximal femoral trace. Birthing Nurse: PSCB Transcribe Date/Time: Feb 16 2024 8:32P Dictated by : ANGELA RAMOS MD This examination was interpreted and the report reviewed and electronically signed by: ANGELA RAMOS MD on Feb 16 2024 8:37PM EST [id number] [facility] aPTT PPPon 02-16-2024 aPTT Coag (PPP) [Time] 28.2 s Normal 23.0-32.4 [facility] Comment on above: Order Comment: Speci men Type: BLOOD SPECIMEN Ordering Facility: [facility] Address: [address] [place] [address] [place] [address] Performed By: #### 1 4979-9, 90027-1 #### [facility] CLIA [id number] [facility] [place] [address] [place] Basophil percentageOrdered B y: Rosaura Peck on 12-22-2023 Chloride [Moles/Vol] 95 mmol/L 98-107 [facility] Glucose [Mass/Vol] 111 mg/dL 74-106 [facility] Comment on above: Fasting Glucose resu lt from 100 to 125 mg/dL suggests IMPAIRED HOMEOSTASIS per A.D.A. criteria. Hemoglobin (Bld) [Mass/Vol] 10.8 g/dL 12.0-15.0 [facility] Potassium [Moles/Vol] 4.1 mmol/L 3.5-5.1 [facility] Sodium [Moles/Vol] 130 mmol/L 136-145 [facility] WBC (Bld) [#/Vol] 7.1 10*3/uL 4.4-11.0 [facility] Determination of erythrocyte mean corpuscular volume (MCV)Ordered By: Rosaura Peck on 12-22-2023 MCV (RBC) [Entitic vol] 96.4 fL 81-99 [facility] Erythrocyte distribution wid th ratioOrdered By: Rosaura Peck on 12-22-2023 Erythrocyte distribution width (RBC) [Ratio] 13.6 % 11.6-14.6 [facility] Erythrocyte distribution wid th standard deviationOrdered By: Rosaura Peck on 12-22-2023 Erythrocyte distribution width (RBC) [Entitic vol] 48.5 fL 35.1-43.9 [facility] Hematocrit Auto (Bld) [Volum e fraction]Ordered By: Rosaura Peck on 12-22-2023 Hematocrit (Bld) [Volume fraction] 32.3 % 37-47 [facility] Laboratory - Chemistry and C hemistry - challengeOrdered By: Rosaura Peck on 12-22-2023 CO2 [Moles/Vol] 27.0 mmol/L 21.0-32.0 [facility] Urea nitrogen/Creatinine [Mass ratio] 27.8 mg/mg 10-20 [facility] Laboratory - Hematology and Cell countsOrdered By: Rosaura Peck on 12-22-2023 MCH (RBC) [Entitic mass] 32.2 pg 27.0-32.0 [facility] MCHC (RBC) [Mass/Vol] 33.4 g/dL 32-36 [facility] Platelet mean volume (Bld) [Entitic vol] 9.3 fL 6.2-12.0 [facility] Platelets (Bld) [#/Vol] 421 10*3/uL 150-450 [facility] No Panel InformationOrdered By: Rosaura Peck on 12-22-2023 Estimated GFR (MDRD) Amer 106 mL/min >60 [facility] Comment on above: GFR Calc Estimated GFR (MDRD) Non-Af Amer 88 mL/min >60 [facility] Comment on above: Non- GFR Calc RBC Auto (Bld) [#/Vol]Ordere d By: Rosaura Peck on 12-22-2023 RBC (Bld) [#/Vol] 3.35 10*6/uL 4.2-5.4 [facility] Serum or plasma calcium alexander urement (mass/volume)Ordered By: Rosaura Peck on 12-22-2023 Calcium [Mass/Vol] 9.3 mg/dL 8.5-10.1 [facility] Serum or plasma creatinine m easurement (mass/volume)Ordered By: Rosaura Peck on 12-22-2023 Creatinine [Mass/Vol] 0.68 mg/dL 0.55-1.02 [facility] Comment on above: The validity of the calculated GFR & GFRAA in patients over 70 years has not been determined. Clinical correlation is essential. Serum or plasma urea nitroge n measurement (mass/volume)Ordered By: Rosaura Peck on 12-22-2023 Urea nitrogen [Mass/Vol] 19 mg/dL -18 [facility] Thin prep Papanicolaou smear with manual screeningOrdered By: Rosaura Peck on 12-22-2023 Thin prep Papanicolaou smear with manual screening 8 5-15 [facility] Basophil percentageOrdered B y: Justus Mccarthy on 12-13-2023 Basophil percentage 3.5 mg/dL 2.5-4.9 [facility] Chloride [Moles/Vol] 108 mmol/L 98-107 [facility] Glucose [Mass/Vol] 89 mg/dL 74-106 [facility] Potassium [Moles/Vol] 4.0 mmol/L 3.5-5.1 [facility] Sodium [Moles/Vol] 135 mmol/L 136-145 [facility] Basophil percentageOrdered B y: Eduardo Gonzalez on 12-13-2023 Hemoglobin (Bld) [Mass/Vol] 8.9 g/dL 12.0-15.0 [facility] Hematocrit Auto (Bld) [Volum e fraction]Ordered By: Eduardo Gonzalez on 12-13-2023 Hematocrit (Bld) [Volume fraction] 26.4 % 37-47 [facility] Laboratory - Chemistry and C hemistry - challengeOrdered By: Justus Mccarthy on 12-13-2023 CO2 [Moles/Vol] 23.0 mmol/L 21.0-32.0 [facility] Magnesium [Mass/Vol] 1.8 mg/dL 1.6-2.6 [facility] Urea nitrogen/Creatinine [Mass ratio] 11.0 mg/mg 10-20 [facility] No Panel InformationOrdered By: Justus Mccarthy on 12-13-2023 Estimated Creatinine Clearance Calc 43.47 ml/min [facility] Estimated GFR (MDRD) Amer 170 mL/min >60 [facility] Comment on above: GFR Calc Estimated GFR (MDRD) Non-Af Amer 141 mL/min >60 [facility] Comment on above: Non- GFR Calc Serum or plasma calcium alexander urement (mass/volume)Ordered By: Justus Mccarthy on 12-13-2023 Calcium [Mass/Vol] 8.3 mg/dL 8.5-10.1 [facility] Serum or plasma creatinine m easurement (mass/volume)Ordered By: Justus Mccarthy on 12-13-2023 Creatinine [Mass/Vol] 0.45 mg/dL 0.55-1.02 [facility] Comment on above: The validity of the calculated GFR & GFRAA in patients over 70 years has not been determined. Clinical correlation is essential. Serum or plasma urea nitroge n measurement (mass/volume)Ordered By: Jutsus Mccarthy on 12-13-2023 Urea nitrogen [Mass/Vol] 5 mg/dL 7-18 [facility] Thin prep Papanicolaou smear with manual screeningOrdered By: Justus Mccarthy on 12-13-2023 Thin prep Papanicolaou smear with manual screening 4 5-15 [facility] Absolute lymphocyte countOrd ered By: Justus Pop on 12-12-2023 Lymphocytes Auto (Unsp spec) [#/Vol] 1.13 10*3/uL 0.83-4.51 [facility] Automated lymphocyte count a s percentage of total leukocytesOrdered By: Justus Pop on 12-12-2023 Lymphocytes/100 WBC Auto (Unsp spec) 14.1 % 19-41 [facility] Basophil percentageOrdered B y: Justus Pop on 12-12-2023 Basophils/100 WBC (Bld) 0.1 % 0-1 [facility] Eosinophils/100 WBC (Bld) 1.8 % 0-5 [facility] Monocytes/100 WBC (Bld) 6.5 % 0-10 [facility] Neutrophils (Bld) [#/Vol] 6.2 10*3/uL 2.0-7.7 [facility] Neutrophils/100 WBC (Bld) 77.1 % 47-70 [facility] WBC (Bld) [#/Vol] 8.0 10*3/uL 4.4-11.0 [facility] Determination of erythrocyte mean corpuscular volume (MCV)Ordered By: Justus Pop on 12-12-2023 MCV (RBC) [Entitic vol] 96.9 fL 81-99 [facility] Erythrocyte distribution wid th ratioOrdered By: Justus Pop on 12-12-2023 Erythrocyte distribution width (RBC) [Ratio] 13.9 % 11.6-14.6 [facility] Erythrocyte distribution wid th standard deviationOrdered By: Justus Pop on 12-12-2023 Erythrocyte distribution width (RBC) [Entitic vol] 49.7 fL 35.1-43.9 [facility] Immature granulocytes/100 WB C Auto (Bld)Ordered By: Justus Pop on 12-12-2023 Immature granulocytes/100 WBC (Bld) 0.400 % 0.0-0.9 [facility] Comment on above: IG% - Immature Granu locytes (promyelocytes, myelocytes and metamyelocytes) > 1% indicates that a LEFT SHIFT is Present. Laboratory - Hematology and Cell countsOrdered By: Justus Pop on 12-12-2023 MCH (RBC) [Entitic mass] 32.3 pg 27.0-32.0 [facility] MCHC (RBC) [Mass/Vol] 33.3 g/dL 32-36 [facility] Nucleated RBC/100 WBC (Bld) [Ratio] 0 % 0-5 [facility] Platelet mean volume (Bld) [Entitic vol] 8.9 fL 6.2-12.0 [facility] Platelets (Bld) [#/Vol] 257 10*3/uL 150-450 [facility] RBC Auto (Bld) [#/Vol]Ordere d By: Justus Pop on 12-12-2023 RBC (Bld) [#/Vol] 2.91 10*6/uL 4.2-5.4 [facility] Absolute lymphocyte countOrd ered By: Mustapha Mccracken on 12-10-2023 Lymphocytes Auto (Unsp spec) [#/Vol] 1.17 10*3/uL 0.83-4.51 [facility] Activated partial thrombopla stin time (aPTT) in platelet poor plasma by coagulation aOrdered By: Mustapha Mccracken on 12-10-2023 aPTT Coag (PPP) [Time] 30.9 s 24.1-36.2 [facility] Automated lymphocyte count a s percentage of total leukocytesOrdered By: Mustapha Mccracken on 12-10-2023 Lymphocytes/100 WBC Auto (Unsp spec) 13.5 % 19-41 [facility] Basophil percentageOrdered B y: Mustapha Mccracken on 12-10-2023 Basophils/100 WBC (Bld) 0.5 % 0-1 [facility] Bilirubin [Mass/Vol] 0.40 mg/dL 0.20-1.00 [facility] Comment on above: For patients on eltr ombopag therapy, use of Dimension [place] TBIL is not recommended. Chloride [Moles/Vol] 94 mmol/L 98-107 [facility] Eosinophils/100 WBC (Bld) 1.7 % 0-5 [facility] Glucose [Mass/Vol] 106 mg/dL 74-106 [facility] Comment on above: Fasting Glucose resu lt from 100 to 125 mg/dL suggests IMPAIRED HOMEOSTASIS per A.D.A. criteria. Hemoglobin (Bld) [Mass/Vol] 11.2 g/dL 12.0-15.0 [facility] Monocytes/100 WBC (Bld) 6.3 % 0-10 [facility] Neutrophils (Bld) [#/Vol] 6.7 10*3/uL 2.0-7.7 [facility] Neutrophils/100 WBC (Bld) 77.7 % 47-70 [facility] Potassium [Moles/Vol] 4.2 mmol/L 3.5-5.1 [facility] Protein [Mass/Vol] 6.3 g/dL 6.4-8.2 [facility] Sodium [Moles/Vol] 128 mmol/L 136-145 [facility] WBC (Bld) [#/Vol] 8.6 10*3/uL 4.4-11.0 [facility] Determination of erythrocyte mean corpuscular volume (MCV)Ordered By: Msutapha Mccracken on 12-10-2023 MCV (RBC) [Entitic vol] 95.9 fL 81-99 [facility] Erythrocyte distribution wid th ratioOrdered By: Mustapha Mccracken on 12-10-2023 Erythrocyte distribution width (RBC) [Ratio] 13.6 % 11.6-14.6 [facility] Erythrocyte distribution wid th standard deviationOrdered By: Mustapha Mccracken on 12-10-2023 Erythrocyte distribution width (RBC) [Entitic vol] 48.1 fL 35.1-43.9 [facility] Hematocrit Auto (Bld) [Volum e fraction]Ordered By: Mustapha Mccracken on 12-10-2023 Hematocrit (Bld) [Volume fraction] 32.6 % 37-47 [facility] Immature granulocytes/100 WB C Auto (Bld)Ordered By: Mustapha Mccracken on 12-10-2023 Immature granulocytes/100 WBC (Bld) 0.300 % 0.0-0.9 [facility] Comment on above: IG% - Immature Granu locytes (promyelocytes, myelocytes and metamyelocytes) > 1% indicates that a LEFT SHIFT is Present. Laboratory - Chemistry and C hemistry - challengeOrdered By: Mustapha Mccracken on 12-10-2023 Albumin/Globulin [Mass ratio] 1.0 {ratio} 0.9-2.4 [facility] ALP [Catalytic activity/Vol] 56 U/L 45-117 [facility] ALT [Catalytic activity/Vol] 16 U/L 13-56 [facility] CO2 [Moles/Vol] 26.0 mmol/L 21.0-32.0 [facility] Globulin (S) [Mass/Vol] 3.1 g/dL 2.2-4.2 [facility] Urea nitrogen/Creatinine [Mass ratio] 29.1 mg/mg 10-20 [facility] Laboratory - CoagulationOrde red By: Mustapha Mccracken on 12-10-2023 INR Coag (Bld) [Relative time] 1.0 {INR} [facility] PT Coag (PPP) [Time] 13.2 s 11.7-14.9 [facility] Laboratory - Hematology and Cell countsOrdered By: Mustapha Mccracken on 12-10-2023 MCH (RBC) [Entitic mass] 32.9 pg 27.0-32.0 [facility] MCHC (RBC) [Mass/Vol] 34.4 g/dL 32-36 [facility] Nucleated RBC/100 WBC (Bld) [Ratio] 0 % 0-5 [facility] Platelet mean volume (Bld) [Entitic vol] 9.0 fL 6.2-12.0 [facility] Platelets (Bld) [#/Vol] 278 10*3/uL 150-450 [facility] Lower GI hemoglobin IA Ql (S tl)Ordered By: Mustapha Mccracken on 12-10-2023 Stool Occult Blood (TERRI) Positive [facility] No Panel InformationOrdered By: Mustapha Mccracken on 12-10-2023 Estimated Creatinine Clearance Calc 45.33 ml/min [facility] Estimated GFR (MDRD) Amer 119 mL/min >60 [facility] Comment on above: GFR Calc Estimated GFR (MDRD) Non-Af Amer 99 mL/min >60 [facility] Comment on above: Non- GFR Calc RBC Auto (Bld) [#/Vol]Ordere d By: Mustapha Mccracken on 12-10-2023 RBC (Bld) [#/Vol] 3.40 10*6/uL 4.2-5.4 [facility] Serum or plasma calcium alexander urement (mass/volume)Ordered By: Mustapha Mccracken on 12-10-2023 Calcium [Mass/Vol] 9.0 mg/dL 8.5-10.1 [facility] Serum or plasma creatinine m easurement (mass/volume)Ordered By: Mustapha Mccracken on 12-10-2023 Creatinine [Mass/Vol] 0.62 mg/dL 0.55-1.02 [facility] Comment on above: The validity of the calculated GFR & GFRAA in patients over 70 years has not been determined. Clinical correlation is essential. Serum or plasma urea nitroge n measurement (mass/volume)Ordered By: Mustapha Mccracken on 12-10-2023 Urea nitrogen [Mass/Vol] 18 mg/dL 7-18 [facility] Thin prep Papanicolaou smear with manual screeningOrdered By: Mustapha Mccracken on 12-10-2023 Thin prep Papanicolaou smear with manual screening 3.2 g/dL 3.2-5.0 [facility] Thin prep Papanicolaou smear with manual screening 15 U/L 15-37 [facility] Thin prep Papanicolaou smear with manual screening 8 5-15 [facility] Culture, urineOrdered By: Antonieta Peck on 07-01-2023 Bacteria identified Cx Nom (U) Mixed Gram Pos & Gram Neg Org [facility] Bacteria identified Cx Nom (U) Mixed Gram Pos & Gram Neg Org [facility] Absolute lymphocyte countOrd ered By: Rosaura Peck on 06-29-2023 Lymphocytes Auto (Unsp spec) [#/Vol] 1.93 10*3/uL 0.83-4.51 [facility] Basophil percentageOrdered B y: Rosaura Peck on 06-29-2023 Basophil percentage 5-10 SEEN /hpf 0-5 [facility] Basophils/100 WBC (Bld) 0.8 % 0-1 [facility] Bilirubin [Mass/Vol] 0.40 mg/dL 0.20-1.00 [facility] Comment on above: For patients on eltr ombopag therapy, use of Dimension [place] TBIL is not recommended. Chloride [Moles/Vol] 99 mmol/L 98-107 [facility] Cholesterol [Mass/Vol] 184 mg/dL <200 [facility] Comment on above: <200 mg/dL Desirable 200-240 mg/dL Borderline >240 mg/dL High Risk Eosinophils/100 WBC (Bld) 2.1 % 0-5 [facility] Glucose [Mass/Vol] 138 mg/dL 74-106 [facility] Comment on above: Fasting Glucose resu lt greater than or equal to 126 mg/dL suggests DIABETES MELLITUS per A.D.A. criteria. Neutrophils (Bld) [#/Vol] 3.7 10*3/uL 2.0-7.7 [facility] Neutrophils/100 WBC (Bld) 59.2 % 47-70 [facility] Potassium [Moles/Vol] 4.4 mmol/L 3.5-5.1 [facility] Protein [Mass/Vol] 6.8 g/dL 6.4-8.2 [facility] Sodium [Moles/Vol] 132 mmol/L 136-145 [facility] Triglyceride [Mass/Vol] 71 mg/dL <199 [facility] Comment on above: The drugs N-Acetylcy steine and Metamizole may falsely depress this assay.Serum Triglycerides Reference Interval Normal <150 mg/dL Borderline high 150 - 199 mg/dL High 200 - 499 mg/dL Very High > or = 500 mg/dL WBC (Bld) [#/Vol] 6.2 10*3/uL 4.4-11.0 [facility] Bilirubin Test strip Ql (U)O rdered By: Rosaura Peck on 06-29-2023 Bilirubin Ql (U) Negative Negative [facility] Blood erythrocytes count (nu mber/volume)Ordered By: Rosaura Peck on 06-29-2023 RBC (Bld) [#/Vol] 3.49 10*6/uL 4.2-5.4 [facility] Blood hemoglobin measurement (mass/volume)Ordered By: Rosaura Peck on 06-29-2023 Hemoglobin (Bld) [Mass/Vol] 10.8 g/dL 12.0-15.0 [facility] Blood lymphocytes/100 leukoc ytesOrdered By: Rosaura Peck on 06-29-2023 Lymphocytes/100 WBC (Bld) 31.2 % 19-41 [facility] Blood monocytes/100 leukocyt esOrdered By: Rosaura Peck on 06-29-2023 Monocytes/100 WBC (Bld) 6.5 % 0-10 [facility] Blood platelet mean volumeOr dered By: Rosaura Peck on 06-29-2023 Platelet mean volume (Bld) [Entitic vol] 9.5 fL 6.2-12.0 [facility] Calcium oxalate crystals det ection in urine sediment by light microscopyOrdered By: Rosaura Peck on 06-29-2023 Calcium oxalate crystals LM Ql (Urine sed) 1+ /hpf [facility] Determination of erythrocyte mean corpuscular volume (MCV)Ordered By: Rosaura Peck on 06-29-2023 MCV (RBC) [Entitic vol] 95.4 fL 81-99 [facility] Hematocrit Auto (Bld) [Volum e fraction]Ordered By: Rosaura Peck on 06-29-2023 Hematocrit (Bld) [Volume fraction] 33.3 % 37-47 [facility] Iron measurement (mass/mass) Ordered By: Rosaura Peck on 06-29-2023 Iron (Unsp spec) [Mass/Mass] 74 ug/dL 50-170 [facility] Ketones Test strip Ql (U)Ord ered By: Rosaura Peck on 06-29-2023 Ketones Ql (U) 5 mg/dl Negative [facility] Laboratory - Chemistry and C hemistry - challengeOrdered By: Rosaura Peck on 06-29-2023 ALP [Catalytic activity/Vol] 53 U/L 45-117 [facility] ALT [Catalytic activity/Vol] 21 U/L 13-56 [facility] CO2 [Moles/Vol] 27.0 mmol/L 21.0-32.0 [facility] Globulin (S) [Mass/Vol] 3.3 g/dL 2.2-4.2 [facility] Urea nitrogen/Creatinine [Mass ratio] 27.4 mg/mg 10-20 [facility] Laboratory - Hematology and Cell countsOrdered By: Rosaura Peck on 06-29-2023 Erythrocyte distribution width (RBC) [Entitic vol] 58.6 fL 35.1-43.9 [facility] Erythrocyte distribution width (RBC) [Ratio] 16.7 % 11.6-14.6 [facility] Immature granulocytes/100 WBC (Bld) 0.200 % 0.0-0.9 [facility] Comment on above: IG% - Immature Granu locytes (promyelocytes, myelocytes and metamyelocytes) > 1% indicates that a LEFT SHIFT is Present. MCH (RBC) [Entitic mass] 30.9 pg 27.0-32.0 [facility] Nucleated RBC/100 WBC (Bld) [Ratio] 0 % 0-5 [facility] MCHC Auto (RBC) [Mass/Vol]Or dered By: Rosaura Peck on 06-29-2023 MCHC (RBC) [Mass/Vol] 32.4 g/dL 32-36 [facility] Mucus LM Ql (Urine sed)Order ed By: Rosaura Peck on 06-29-2023 Mucus Ql (Urine sed) 0 SEEN /hpf [facility] Nitrite Test strip Ql (U)Ord ered By: Rosaura Peck on 06-29-2023 Nitrite Ql (U) Negative Negative [facility] No Panel InformationOrdered By: Rosaura Peck on 06-29-2023 Estimated GFR (MDRD) Amer 99 mL/min >60 [facility] Comment on above: GFR Calc Estimated GFR (MDRD) Non-Af Amer 81 mL/min >60 [facility] Comment on above: Non- GFR Calc Thyroid Stimulating Hormone (TSH) 1.41 uIU/mL 0.358-3.74 [facility] Total Iron Binding Capacity 353 ug/dL 250-450 [facility] Vitamin D 25-Hydroxy 48.5 ng/mL [facility] Comment on above: Vitamin D 25(OH) Sta tus Range Deficiency <20 ng/mL (50nmol/L) Insufficiency 20 - 30 ng/mL (50 - 75 nmol/L) Sufficiency 30 - 100 ng/mL (75 - 250 nmol/L) Toxicity >100 ng/mL (>250 nmol/L) Platelets bldOrdered By: Connor Peck on 06-29-2023 Platelets (Bld) [#/Vol] 365 10*3/uL 150-450 [facility] Protein Test strip Ql (U)Ord ered By: Rosaura Peck on 06-29-2023 Protein Ql (U) 30 mg/dl Negative [facility] Serum or plasma albumin alexander urement (mass/volume)Ordered By: Rosaura Peck on 06-29-2023 Albumin [Mass/Vol] 3.5 g/dL 3.2-5.0 [facility] Serum or plasma albumin/glob ulin mass ratioOrdered By: Rosaura Peck on 06-29-2023 Albumin/Globulin [Mass ratio] 1.1 {ratio} 0.9-2.4 [facility] Serum or plasma calcium alexander urement (mass/volume)Ordered By: Rosaura Peck on 06-29-2023 Calcium [Mass/Vol] 8.8 mg/dL 8.5-10.1 [facility] Serum or plasma cholesterol in HDL measurement (mass/volume)Ordered By: Rosaura Peck on 06-29-2023 Cholesterol in HDL [Mass/Vol] 111 mg/dL >40 [facility] Comment on above: The drugs N-Acetylcy steine and Metamizole may falsely depress this assay. Reference Range HDL <40 mg/dL Low HDL Cholesterol HDL >or= 60 mg/dL High HDL Cholesterol Serum or plasma cholesterol in VLDL measurement (mass/volume)Ordered By: Rosaura Peck on 06-29-2023 Cholesterol in VLDL [Mass/Vol] 14 mg/dL 5-40 [facility] Serum or plasma creatinine m easurement (mass/volume)Ordered By: Rosaura Peck on 06-29-2023 Creatinine [Mass/Vol] 0.73 mg/dL 0.55-1.02 [facility] Comment on above: The validity of the calculated GFR & GFRAA in patients over 70 years has not been determined. Clinical correlation is essential. Serum or plasma ferritin tariq surement (mass/volume)Ordered By: Rosaura Peck on 06-29-2023 Ferritin [Mass/Vol] 63 ng/mL 8-252 [facility] Serum or plasma iron saturat ion measurement (mass fraction)Ordered By: Rosaura Peck on 06-29-2023 Iron saturation [Mass fraction] 21.0 % 15.0-55.0 [facility] Serum or plasma low density lipoprotein (LDL) cholesterol measurement (mass/volume)Ordered By: Rosaura Peck on 06-29-2023 Cholesterol in LDL [Mass/Vol] 59 mg/dL 0-130 [facility] Serum or plasma urea nitroge n measurement (mass/volume)Ordered By: Rosaura Peck on 06-29-2023 Urea nitrogen [Mass/Vol] 20 mg/dL 7-18 [facility] Serum or plasma uric acid me asurement (mass/volume)Ordered By: Rosaura Peck on 06-29-2023 Urate [Mass/Vol] 4.2 mg/dL 2.6-6.0 [facility] Comment on above: The drugs N-Acetylcy steine and Metamizole may falsely depress this assay. Squamous epithelial cells de tection in urine sediment by light microscopyOrdered By: Rosaura Peck on 06-29-2023 Epithelial cells.squamous LM Ql (Urine sed) 0-5 SEEN /hpf 5-10 [facility] Thin prep Papanicolaou smear with manual screeningOrdered By: Rosaura Peck on 06-29-2023 Thin prep Papanicolaou smear with manual screening 18 U/L 15-37 [facility] Thin prep Papanicolaou smear with manual screening 6 5-15 [facility] Urine blood detectionOrdered By: Rosaura Peck on 06-29-2023 RBC Ql (U) 25 /ul Negative [facility] RBC Ql (U) 0 SEEN /hpf 0-5 [facility] Urine clarityOrdered By: Connor Peck on 06-29-2023 Clarity (U) Cloudy Clear [facility] Urine color determinationOrd ered By: Rosaura Peck on 06-29-2023 Color (U) Yellow Yellow [facility] Urine glucose detectionOrder ed By: Rosaura Peck on 06-29-2023 Glucose Ql (U) Normal mg/dl Normal [facility] Urine leukocyte esterase det ection by dipstickOrdered By: Rosaura Peck on 06-29-2023 Leukocyte esterase Test strip Ql (U) 500 /ul Negative [facility] Urine pHOrdered By: Rosaura loco on 06-29-2023 pH (U) 6.5 [pH] 5.0 - 8.0 [facility] Urine sediment bacteria coun t by microscopy (number/high power field)Ordered By: Rosaura Peck on 06-29-2023 Bacteria LM.HPF (Urine sed) [#/Area] 0 /[HPF] None Seen [facility] Urine sediment renal epithel ial cell count by microscopy (number/high power field)Ordered By: Rosaura Peck on 06-29-2023 Epithelial cells.renal LM.HPF (Urine sed) [#/Area] 0 /[HPF] 0-5 [facility] Urine specific gravity measu rementOrdered By: Rosaura Peck on 06-29-2023 Specific gravity (U) [Rel density] 1.010 1.002-1.03 0 [facility] Urobilinogen Auto test strip Ql (U)Ordered By: Rosaura Peck on 06-29-2023 Urobilinogen Ql (U) 1 mg/dl Normal [facility] Whole blood hemoglobin A1c/t otal hemoglobin ratio (mass fraction)Ordered By: Rosaura Peck on 06-29-2023 HbA1c (Bld) [Mass fraction] 5.4 % 3.8-5.6 [facility] Comment on above: Normal < 5.7 % Predi abetic 5.7 - 6.4 % Diabetic >or= 6.5 % Please note range changes. Absolute lymphocyte countOrd ered By: Angela Rivera on 03-17-2023 Lymphocytes Auto (Unsp spec) [#/Vol] 1.30 10*3/uL 0.83-4.51 [facility] Basophil percentageOrdered B y: Angela Rivera on 03-17-2023 Basophils/100 WBC (Bld) 1.1 % 0-1 [facility] Chloride [Moles/Vol] 98 mmol/L 98-[address] [facility] [address] [facility] Eosinophils/100 WBC (Bld) 4.3 % 0-5 [facility] Glucose [Mass/Vol] 84 mg/dL 74-106 [facility] Neutrophils (Bld) [#/Vol] 2.7 10*3/uL 2.0-7.7 [facility] Neutrophils/100 WBC (Bld) 58.3 % 47-70 [facility] Potassium [Moles/Vol] 4.2 mmol/L 3.5-5.1 [facility] Sodium [Moles/Vol] 131 mmol/L 136-145 [facility] WBC (Bld) [#/Vol] 4.7 10*3/uL 4.4-11.0 [facility] Blood erythrocytes count (nu mber/volume)Ordered By: Angela Rivera on 03-17-2023 RBC (Bld) [#/Vol] 3.09 10*6/uL 4.2-5.4 [facility] Blood hemoglobin measurement (mass/volume)Ordered By: Angela Rivera on 03-17-2023 Hemoglobin (Bld) [Mass/Vol] 9.4 g/dL 12.0-15.0 [facility] Blood lymphocytes/100 leukoc ytesOrdered By: Angela Rivera on 03-17-2023 Lymphocytes/100 WBC (Bld) 27.8 % 19-41 [facility] Blood monocytes/100 leukocyt esOrdered By: Angela Rivera on 03-17-2023 Monocytes/100 WBC (Bld) 8.3 % 0-10 [facility] Blood platelet mean volumeOr dered By: Angela Rivera on 03-17-2023 Platelet mean volume (Bld) [Entitic vol] 9.2 fL 6.2-12.0 [facility] Determination of erythrocyte mean corpuscular volume (MCV)Ordered By: Angela Rivera on 03-17-2023 MCV (RBC) [Entitic vol] 94.5 fL 81-99 [facility] Hematocrit Auto (Bld) [Volum e fraction]Ordered By: Angela Rivera on 03-17-2023 Hematocrit (Bld) [Volume fraction] 29.2 % 37-47 [facility] Laboratory - Chemistry and C hemistry - challengeOrdered By: Angela Rivera on 03-17-2023 CO2 [Moles/Vol] 27.0 mmol/L 21.0-32.0 [facility] Urea nitrogen/Creatinine [Mass ratio] 23.4 mg/mg 10-20 [facility] Laboratory - Hematology and Cell countsOrdered By: Angela Rivera on 03-17-2023 Erythrocyte distribution width (RBC) [Entitic vol] 54.9 fL 35.1-43.9 [facility] Erythrocyte distribution width (RBC) [Ratio] 15.9 % 11.6-14.6 [facility] Immature granulocytes/100 WBC (Bld) 0.200 % 0.0-0.9 [facility] Comment on above: IG% - Immature Granu locytes (promyelocytes, myelocytes and metamyelocytes) > 1% indicates that a LEFT SHIFT is Present. MCH (RBC) [Entitic mass] 30.4 pg 27.0-32.0 [facility] Nucleated RBC/100 WBC (Bld) [Ratio] 0 % 0-5 [facility] MCHC Auto (RBC) [Mass/Vol]Or dered By: Angela Rivera on 03-17-2023 MCHC (RBC) [Mass/Vol] 32.2 g/dL 32-36 [facility] No Panel InformationOrdered By: Angela Rivera on 03-17-2023 Estimated GFR (MDRD) Amer 164 mL/min >60 [facility] Comment on above: GFR Calc Estimated GFR (MDRD) Non-Af Amer 135 mL/min >60 [facility] Comment on above: Non- GFR Calc Platelets bldOrdered By: Juan F Rivera on 03-17-2023 Platelets (Bld) [#/Vol] 380 10*3/uL 150-450 [facility] Serum or plasma calcium alexander urement (mass/volume)Ordered By: Angela Rivera on 03-17-2023 Calcium [Mass/Vol] 8.9 mg/dL 8.5-10.1 [facility] Serum or plasma creatinine m easurement (mass/volume)Ordered By: Angela Rivera on 03-17-2023 Creatinine [Mass/Vol] 0.47 mg/dL 0.55-1.02 [facility] Comment on above: The validity of the calculated GFR & GFRAA in patients over 70 years has not been determined. Clinical correlation is essential. Serum or plasma urea nitroge n measurement (mass/volume)Ordered By: Angela Rivera on 03-17-2023 Urea nitrogen [Mass/Vol] 11 mg/dL 7-18 [facility] Thin prep Papanicolaou smear with manual screeningOrdered By: Angela Rivera on 03-17-2023 Thin prep Papanicolaou smear with manual screening 6 5-15 [facility] Absolute lymphocyte countOrd ered By: Josh Flores on 03-10-2023 Lymphocytes Auto (Unsp spec) [#/Vol] 1.62 10*3/uL 0.83-4.51 [facility] Basophil percentageOrdered B y: Josh Flores on 03-10-2023 Basophils/100 WBC (Bld) 0.8 % 0-1 [facility] Chloride [Moles/Vol] 96 mmol/L 98-107 [facility] Eosinophils/100 WBC (Bld) 3.9 % 0-5 [facility] Glucose [Mass/Vol] 85 mg/dL 74-106 [facility] Neutrophils (Bld) [#/Vol] 2.9 10*3/uL 2.0-7.7 [facility] Neutrophils/100 WBC (Bld) 57.0 % 47-70 [facility] Potassium [Moles/Vol] 3.8 mmol/L 3.5-5.1 [facility] Sodium [Moles/Vol] 130 mmol/L 136-145 [facility] WBC (Bld) [#/Vol] 5.2 10*3/uL 4.4-11.0 [facility] Blood erythrocytes count (nu mber/volume)Ordered By: Josh Flores on 03-10-2023 RBC (Bld) [#/Vol] 3.10 10*6/uL 4.2-5.4 [facility] Blood hemoglobin measurement (mass/volume)Ordered By: Josh Flores on 03-10-2023 Hemoglobin (Bld) [Mass/Vol] 9.7 g/dL 12.0-15.0 [facility] Blood lymphocytes/100 leukoc ytesOrdered By: Josh Flores on 03-10-2023 Lymphocytes/100 WBC (Bld) 31.5 % 19-41 [facility] Blood monocytes/100 leukocyt esOrdered By: Josh Flores on 03-10-2023 Monocytes/100 WBC (Bld) 6.6 % 0-10 [facility] Blood platelet mean volumeOr dered By: Josh Flores on 03-10-2023 Platelet mean volume (Bld) [Entitic vol] 8.8 fL 6.2-12.0 [facility] Determination of erythrocyte mean corpuscular volume (MCV)Ordered By: Josh Flores on 03-10-2023 MCV (RBC) [Entitic vol] 94.2 fL 81-99 [facility] Hematocrit Auto (Bld) [Volum e fraction]Ordered By: Josh Flores on 03-10-2023 Hematocrit (Bld) [Volume fraction] 29.2 % 37-47 [facility] Laboratory - Chemistry and C hemistry - challengeOrdered By: beckypope army airfielddanny Flores on 03-10-2023 CO2 [Moles/Vol] 26.0 mmol/L 21.0-32.0 [facility] Urea nitrogen/Creatinine [Mass ratio] 17.9 mg/mg 10-20 [facility] Laboratory - Hematology and Cell countsOrdered By: Josh Flores on 03-10-2023 Erythrocyte distribution width (RBC) [Entitic vol] 56.0 fL 35.1-43.9 [facility] Erythrocyte distribution width (RBC) [Ratio] 16.4 % 11.6-14.6 [facility] Immature granulocytes/100 WBC (Bld) 0.200 % 0.0-0.9 [facility] Comment on above: IG% - Immature Granu locytes (promyelocytes, myelocytes and metamyelocytes) > 1% indicates that a LEFT SHIFT is Present. MCH (RBC) [Entitic mass] 31.3 pg 27.0-32.0 [facility] Nucleated RBC/100 WBC (Bld) [Ratio] 0 % 0-5 [facility] MCHC Auto (RBC) [Mass/Vol]Or dered By: Josh Flores on 03-10-2023 MCHC (RBC) [Mass/Vol] 33.2 g/dL 32-36 [facility] No Panel InformationOrdered By: Josh Flores on 03-10-2023 Estimated GFR (MDRD) Amer 152 mL/min >60 [facility] Comment on above: GFR Calc Estimated GFR (MDRD) Non-Af Amer 125 mL/min >60 [facility] Comment on above: Non- GFR Calc Platelets bldOrdered By: Lorenzo Flores on 03-10-2023 Platelets (Bld) [#/Vol] 461 10*3/uL 150-450 [facility] Serum or plasma calcium alexander urement (mass/volume)Ordered By: Josh Flores on 03-10-2023 Calcium [Mass/Vol] 9.0 mg/dL 8.5-10.1 [facility] Serum or plasma creatinine m easurement (mass/volume)Ordered By: Josh Flores on 03-10-2023 Creatinine [Mass/Vol] 0.50 mg/dL 0.55-1.02 [facility] Comment on above: The validity of the calculated GFR & GFRAA in patients over 70 years has not been determined. Clinical correlation is essential. Serum or plasma urea nitroge n measurement (mass/volume)Ordered By: Josh Flores on 03-10-2023 Urea nitrogen [Mass/Vol] 9 mg/dL 7-18 [facility] Thin prep Papanicolaou smear with manual screeningOrdered By: Josh Flores on 03-10-2023 Thin prep Papanicolaou smear with manual screening 8 5-15 [facility] Absolute lymphocyte countOrd ered By: Angela Rivera on 03-04-2023 Lymphocytes Auto (Unsp spec) [#/Vol] 1.33 10*3/uL 0.83-4.51 [facility] Basophil percentageOrdered B y: Angela Rivera on 03-04-2023 Basophils/100 WBC (Bld) 1.1 % 0-1 [facility] Chloride [Moles/Vol] 98 mmol/L 98-107 [facility] Eosinophils/100 WBC (Bld) 3.2 % 0-5 [facility] Glucose [Mass/Vol] 89 mg/dL 74-106 [facility] Neutrophils (Bld) [#/Vol] 2.8 10*3/uL 2.0-7.7 [facility] Neutrophils/100 WBC (Bld) 59.2 % 47-70 [facility] Potassium [Moles/Vol] 4.0 mmol/L 3.5-5.1 [facility] Sodium [Moles/Vol] 131 mmol/L 136-145 [facility] WBC (Bld) [#/Vol] 4.7 10*3/uL 4.4-11.0 [facility] Blood erythrocytes count (nu mber/volume)Ordered By: Angela Rivera on 03-04-2023 RBC (Bld) [#/Vol] 2.68 10*6/uL 4.2-5.4 [facility] Blood hemoglobin measurement (mass/volume)Ordered By: Angela Rivera on 03-04-2023 Hemoglobin (Bld) [Mass/Vol] 8.2 g/dL 12.0-15.0 [facility] Blood lymphocytes/100 leukoc ytesOrdered By: Angela Rivera on 03-04-2023 Lymphocytes/100 WBC (Bld) 28.4 % 19-41 [facility] Blood monocytes/100 leukocyt esOrdered By: Angela Rivera on 03-04-2023 Monocytes/100 WBC (Bld) 7.7 % 0-10 [facility] Blood platelet mean volumeOr dered By: Angela Rivera on 03-04-2023 Platelet mean volume (Bld) [Entitic vol] 8.5 fL 6.2-12.0 [facility] Determination of erythrocyte mean corpuscular volume (MCV)Ordered By: Angela Rivera on 03-04-2023 MCV (RBC) [Entitic vol] 94.8 fL 81-99 [facility] Hematocrit Auto (Bld) [Volum e fraction]Ordered By: Angela Rivera on 03-04-2023 Hematocrit (Bld) [Volume fraction] 25.4 % 37-47 [facility] Laboratory - Chemistry and C hemistry - challengeOrdered By: Angela Rivera on 03-04-2023 CO2 [Moles/Vol] 27.0 mmol/L 21.0-32.0 [facility] Urea nitrogen/Creatinine [Mass ratio] 28.1 mg/mg 10-20 [facility] Laboratory - Hematology and Cell countsOrdered By: Angela Rivera on 03-04-2023 Erythrocyte distribution width (RBC) [Entitic vol] 58.3 fL 35.1-43.9 [facility] Erythrocyte distribution width (RBC) [Ratio] 16.7 % 11.6-14.6 [facility] Immature granulocytes/100 WBC (Bld) 0.400 % 0.0-0.9 [facility] Comment on above: IG% - Immature Granu locytes (promyelocytes, myelocytes and metamyelocytes) > 1% indicates that a LEFT SHIFT is Present. MCH (RBC) [Entitic mass] 30.6 pg 27.0-32.0 [facility] Nucleated RBC/100 WBC (Bld) [Ratio] 0 % 0-5 [facility] MCHC Auto (RBC) [Mass/Vol]Or dered By: Angela Rivera on 03-04-2023 MCHC (RBC) [Mass/Vol] 32.3 g/dL 32-36 [facility] No Panel InformationOrdered By: Angela Rivera on 03-04-2023 Estimated GFR (MDRD) Amer 183 mL/min >60 [facility] Comment on above: GFR Calc Estimated GFR (MDRD) Non-Af Amer 151 mL/min >60 [facility] Comment on above: Non- GFR Calc Platelets bldOrdered By: Juan F Rivera on 03-04-2023 Platelets (Bld) [#/Vol] 572 10*3/uL 150-450 [facility] Serum or plasma calcium alexander urement (mass/volume)Ordered By: Angela Rivera on 03-04-2023 Calcium [Mass/Vol] 8.5 mg/dL 8.5-10.1 [facility] Serum or plasma creatinine m easurement (mass/volume)Ordered By: Angela Rivera on 03-04-2023 Creatinine [Mass/Vol] 0.43 mg/dL 0.55-1.02 [facility] Comment on above: The validity of the calculated GFR & GFRAA in patients over 70 years has not been determined. Clinical correlation is essential. Serum or plasma urea nitroge n measurement (mass/volume)Ordered By: Angela Rivera on 03-04-2023 Urea nitrogen [Mass/Vol] 12 mg/dL 7-18 [facility] Thin prep Papanicolaou smear with manual screeningOrdered By: Angela Rivera on 06-30-2023 Thin prep Papanicolaou smear with manual screening 6 5-15 [facility] Absolute lymphocyte countOrd ered By: Josh Flores on 02-28-2023 Lymphocytes Auto (Unsp spec) [#/Vol] 1.38 10*3/uL 0.83-4.51 [facility] Basophil percentageOrdered B y: Josh Flores on 02-28-2023 Basophils/100 WBC (Bld) 1.1 % 0-1 [facility] Eosinophils/100 WBC (Bld) 3.0 % 0-5 [facility] Neutrophils (Bld) [#/Vol] 3.3 10*3/uL 2.0-7.7 [facility] Neutrophils/100 WBC (Bld) 62.6 % 47-70 [facility] WBC (Bld) [#/Vol] 5.3 10*3/uL 4.4-11.0 [facility] Blood erythrocytes count (nu mber/volume)Ordered By: Josh Flores on 02-28-2023 RBC (Bld) [#/Vol] 2.57 10*6/uL 4.2-5.4 [facility] Blood hemoglobin measurement (mass/volume)Ordered By: Josh Flores on 02-28-2023 Hemoglobin (Bld) [Mass/Vol] 8.0 g/dL 12.0-15.0 [facility] Blood lymphocytes/100 leukoc ytesOrdered By: Josh Flores on 02-28-2023 Lymphocytes/100 WBC (Bld) 26.1 % 19-41 [facility] Blood monocytes/100 leukocyt esOrdered By: Josh Flores on 02-28-2023 Monocytes/100 WBC (Bld) 6.8 % 0-10 [facility] Blood platelet mean volumeOr dered By: Josh Flores on 02-28-2023 Platelet mean volume (Bld) [Entitic vol] 8.3 fL 6.2-12.0 [facility] Determination of erythrocyte mean corpuscular volume (MCV)Ordered By: Josh Flores on 02-28-2023 MCV (RBC) [Entitic vol] 96.5 fL 81-99 [facility] Hematocrit Auto (Bld) [Volum e fraction]Ordered By: Josh Flores on 02-28-2023 Hematocrit (Bld) [Volume fraction] 24.8 % 37-47 [facility] Laboratory - Hematology and Cell countsOrdered By: Josh Flores on 02-28-2023 Erythrocyte distribution width (RBC) [Entitic vol] 59.1 fL 35.1-43.9 [facility] Erythrocyte distribution width (RBC) [Ratio] 16.8 % 11.6-14.6 [facility] Immature granulocytes/100 WBC (Bld) 0.400 % 0.0-0.9 [facility] Comment on above: IG% - Immature Granu locytes (promyelocytes, myelocytes and metamyelocytes) > 1% indicates that a LEFT SHIFT is Present. MCH (RBC) [Entitic mass] 31.1 pg 27.0-32.0 [facility] Nucleated RBC/100 WBC (Bld) [Ratio] 0 % 0-5 [facility] MCHC Auto (RBC) [Mass/Vol]Or dered By: Josh Flores on 02-28-2023 MCHC (RBC) [Mass/Vol] 32.3 g/dL 32-36 [facility] Platelets bldOrdered By: Lorenzobradley keanedanny Flores on 02-28-2023 Platelets (Bld) [#/Vol] 697 10*3/uL 150-450 [facility] Absolute lymphocyte countOrd ered By: Josh Flores on 02-25-2023 Lymphocytes Auto (Unsp spec) [#/Vol] 1.19 10*3/uL 0.83-4.51 [facility] Basophil percentageOrdered B y: Josh Flores on 02-25-2023 Basophils/100 WBC (Bld) 0.7 % 0-1 [facility] Eosinophils/100 WBC (Bld) 3.1 % 0-5 [facility] Neutrophils (Bld) [#/Vol] 5.3 10*3/uL 2.0-7.7 [facility] Neutrophils/100 WBC (Bld) 72.0 % 47-70 [facility] WBC (Bld) [#/Vol] 7.4 10*3/uL 4.4-11.0 [facility] Blood erythrocytes count (nu mber/volume)Ordered By: Josh Flores on 02-25-2023 RBC (Bld) [#/Vol] 2.51 10*6/uL 4.2-5.4 [facility] Blood hemoglobin measurement (mass/volume)Ordered By: beckypope [facility] airfielddanny Flores on 02-25-2023 Hemoglobin (Bld) [Mass/Vol] 7.7 g/dL 12.0-15.0 [facility] Blood lymphocytes/100 leukoc ytesOrdered By: [facility] Lebronbradley on 02-25-2023 Lymphocytes/100 WBC (Bld) 16.2 % 19-41 [facility] Blood monocytes/100 leukocyt esOrdered By: [facility] Lebronbradley on 02-25-2023 Monocytes/100 WBC (Bld) 7.5 % 0-10 [facility] Blood platelet mean volumeOr dered By: beckypope [facility] airfielddanny Flores on 02-25-2023 Platelet mean volume (Bld) [Entitic vol] 8.7 fL 6.2-12.0 [facility] Determination of erythrocyte mean corpuscular volume (MCV)Ordered By: beckypope [facility] airfielddanny Flores on 02-25-2023 MCV (RBC) [Entitic vol] 96.0 fL 81-99 [facility] Hematocrit Auto (Bld) [Volum e fraction]Ordered By: [facility] Lebronbradley on 02-25-2023 Hematocrit (Bld) [Volume fraction] 24.1 % 37-47 [facility] Laboratory - Hematology and Cell countsOrdered By: beckypope [facility] airfielddanny Dianabradley on 02-25-2023 Erythrocyte distribution width (RBC) [Entitic vol] 59.7 fL 35.1-43.9 [facility] Erythrocyte distribution width (RBC) [Ratio] 16.9 % 11.6-14.6 [facility] Immature granulocytes/100 WBC (Bld) 0.500 % 0.0-0.9 [facility] Comment on above: IG% - Immature Granu locytes (promyelocytes, myelocytes and metamyelocytes) > 1% indicates that a LEFT SHIFT is Present. MCH (RBC) [Entitic mass] 30.7 pg 27.0-32.0 [facility] Nucleated RBC/100 WBC (Bld) [Ratio] 0 % 0-5 [facility] MCHC Auto (RBC) [Mass/Vol]Or dered By: Josh Flores on 02-25-2023 MCHC (RBC) [Mass/Vol] 32.0 g/dL 32-36 [facility] Platelets bldOrdered By: Lorenzo Flores on 02-25-2023 Platelets (Bld) [#/Vol] 734 10*3/uL 150-450 [facility] Absolute lymphocyte countOrd ered By: Josh Flores on 02-24-2023 Lymphocytes Auto (Unsp spec) [#/Vol] 1.19 10*3/uL 0.83-4.51 [facility] Basophil percentageOrdered B y: Josh Flores on 02-24-2023 Basophils/100 WBC (Bld) 0.9 % 0-1 [facility] Eosinophils/100 WBC (Bld) 1.1 % 0-5 [facility] Neutrophils (Bld) [#/Vol] 7.1 10*3/uL 2.0-7.7 [facility] Neutrophils/100 WBC (Bld) 78.3 % 47-70 [facility] WBC (Bld) [#/Vol] 9.1 10*3/uL 4.4-11.0 [facility] Chloride [Moles/Vol] 100 mmol/L 98-107 [facility] Glucose [Mass/Vol] 90 mg/dL 74-106 [facility] Potassium [Moles/Vol] 4.4 mmol/L 3.5-5.1 [facility] Sodium [Moles/Vol] 132 mmol/L 136-145 [facility] Blood erythrocytes count (nu mber/volume)Ordered By: Josh Flores on 02-24-2023 RBC (Bld) [#/Vol] 2.65 10*6/uL 4.2-5.4 [facility] Blood hemoglobin measurement (mass/volume)Ordered By: Josh Flores on 02-24-2023 Hemoglobin (Bld) [Mass/Vol] 8.1 g/dL 12.0-15.0 [facility] Blood lymphocytes/100 leukoc ytesOrdered By: Josh Flores on 02-24-2023 Lymphocytes/100 WBC (Bld) 13.1 % 19-41 [facility] Blood monocytes/100 leukocyt esOrdered By: Josh Flores on 02-24-2023 Monocytes/100 WBC (Bld) 6.3 % 0-10 [facility] Blood platelet adequacy dete ction by light microscopyOrdered By: Josh Flores on 02-24-2023 Platelets LM Ql (Bld) MKD INC ADEQ [facility] Blood platelet mean volumeOr dered By: Josh Flores on 02-24-2023 Platelet mean volume (Bld) [Entitic vol] 8.2 fL 6.2-12.0 [facility] Determination of erythrocyte mean corpuscular volume (MCV)Ordered By: Josh Flores on 02-24-2023 MCV (RBC) [Entitic vol] 95.8 fL 81-99 [facility] Hematocrit Auto (Bld) [Volum e fraction]Ordered By: Josh Flores on 02-24-2023 Hematocrit (Bld) [Volume fraction] 25.4 % 37-47 [facility] Laboratory - Chemistry and C hemistry - challengeOrdered By: Josh Flores on 02-24-2023 CO2 [Moles/Vol] 27.0 mmol/L 21.0-32.0 [facility] Urea nitrogen/Creatinine [Mass ratio] 25.3 mg/mg 10-20 [facility] Laboratory - Hematology and Cell countsOrdered By: Josh Flores on 02-24-2023 Erythrocyte distribution width (RBC) [Entitic vol] 59.2 fL 35.1-43.9 [facility] Erythrocyte distribution width (RBC) [Ratio] 16.8 % 11.6-14.6 [facility] Immature granulocytes/100 WBC (Bld) 0.300 % 0.0-0.9 [facility] Comment on above: IG% - Immature Granu locytes (promyelocytes, myelocytes and metamyelocytes) > 1% indicates that a LEFT SHIFT is Present. MCH (RBC) [Entitic mass] 30.6 pg 27.0-32.0 [facility] Nucleated RBC/100 WBC (Bld) [Ratio] 0 % 0-5 [facility] MCHC Auto (RBC) [Mass/Vol]Or dered By: Josh Flores on 02-24-2023 MCHC (RBC) [Mass/Vol] 31.9 g/dL 32-36 [facility] No Panel InformationOrdered By: Josh Flores on 02-24-2023 Estimated GFR (MDRD) Amer 162 mL/min >60 [facility] Comment on above: GFR Calc Estimated GFR (MDRD) Non-Af Amer 134 mL/min >60 [facility] Comment on above: Non- GFR Calc Platelets bldOrdered By: Lorenzo Flores on 02-24-2023 Platelets (Bld) [#/Vol] 774 10*3/uL 150-450 [facility] Review by pathologistOrdered By: Josh Flores on 02-24-2023 Pathologist review Oscar (Unsp spec) [Interp] Reviewed [facility] Comment on above: Previous reported re sult: Crystal singh Edited by: RGOMEME on 02/25/23:1528Normocytic anemia.Marked Thrombocytosis suggestive of proliferative disorder.Grey Hoyos D.O. 02/25/23 AMENDED REPORT 02/25/23 1528 PATH REV previously reported as: Crystal singh Serum or plasma calcium alexander urement (mass/volume)Ordered By: Josh Flores on 02-24-2023 Calcium [Mass/Vol] 8.9 mg/dL 8.5-10.1 [facility] Serum or plasma creatinine m easurement (mass/volume)Ordered By: Josh Flores on 02-24-2023 Creatinine [Mass/Vol] 0.48 mg/dL 0.55-1.02 [facility] Comment on above: The validity of the calculated GFR & GFRAA in patients over 70 years has not been determined. Clinical correlation is essential. Serum or plasma urea nitroge n measurement (mass/volume)Ordered By: Josh Flores on 02-24-2023 Urea nitrogen [Mass/Vol] 12 mg/dL 7-18 [facility] Thin prep Papanicolaou smear with manual screeningOrdered By: Josh Flores on 02-24-2023 Thin prep Papanicolaou smear with manual screening 5 5-15 [facility] Absolute lymphocyte countOrd ered By: gabi Flores on 02-17-2023 Lymphocytes Auto (Unsp spec) [#/Vol] 2.49 10*3/uL 0.83-4.51 [facility] Basophil percentageOrdered B y: Josh Flores on 02-17-2023 Basophils/100 WBC (Bld) 0.4 % 0-1 [facility] Bilirubin [Mass/Vol] 0.80 mg/dL 0.20-1.00 [facility] Comment on above: For patients on eltr ombopag therapy, use of Dimension [place] TBIL is not recommended. Chloride [Moles/Vol] 98 mmol/L 98-107 [facility] Eosinophils/100 WBC (Bld) 2.6 % 0-5 [facility] Glucose [Mass/Vol] 120 mg/dL 74-106 [facility] Comment on above: Fasting Glucose resu lt from 100 to 125 mg/dL suggests IMPAIRED HOMEOSTASIS per A.D.A. criteria. Neutrophils (Bld) [#/Vol] 4.8 10*3/uL 2.0-7.7 [facility] Neutrophils/100 WBC (Bld) 56.9 % 47-70 [facility] Potassium [Moles/Vol] 4.5 mmol/L 3.5-5.1 [facility] Protein [Mass/Vol] 6.6 g/dL 6.4-8.2 [facility] Sodium [Moles/Vol] 130 mmol/L 136-145 [facility] WBC (Bld) [#/Vol] 8.4 10*3/uL 4.4-11.0 [facility] Blood erythrocytes count (nu mber/volume)Ordered By: Josh Flores on 02-17-2023 RBC (Bld) [#/Vol] 2.63 10*6/uL 4.2-5.4 [facility] Blood hemoglobin measurement (mass/volume)Ordered By: Josh Flores on 02-17-2023 Hemoglobin (Bld) [Mass/Vol] 8.2 g/dL 12.0-15.0 [facility] Blood lymphocytes/100 leukoc ytesOrdered By: Josh Flores on 02-17-2023 Lymphocytes/100 WBC (Bld) 29.7 % 19-41 [facility] Blood monocytes/100 leukocyt esOrdered By: [facility] Mcduffiedanny Flores on 02-17-2023 Monocytes/100 WBC (Bld) 10.0 % 0-10 [facility] Blood platelet mean volumeOr dered By: Josh Flores on 02-17-2023 Platelet mean volume (Bld) [Entitic vol] 9.3 fL 6.2-12.0 [facility] Determination of erythrocyte mean corpuscular volume (MCV)Ordered By: Josh Flores on 02-17-2023 MCV (RBC) [Entitic vol] 95.8 fL 81-99 [facility] Hematocrit Auto (Bld) [Volum e fraction]Ordered By: [facility]ckypope army airfielddanny Flores on 02-17-2023 Hematocrit (Bld) [Volume fraction] 25.2 % 37-47 [facility] Laboratory - Chemistry and C hemistry - challengeOrdered By: Josh Flores on 02-17-2023 ALP [Catalytic activity/Vol] 53 U/L 45-117 [facility] ALT [Catalytic activity/Vol] 24 U/L 13-56 [facility] CO2 [Moles/Vol] 22.0 mmol/L 21.0-32.0 [facility] Globulin (S) [Mass/Vol] 3.9 g/dL 2.2-4.2 [facility] Urea nitrogen/Creatinine [Mass ratio] 25.0 mg/mg 10-20 [facility] Laboratory - Hematology and Cell countsOrdered By: Josh Flores on 02-17-2023 Erythrocyte distribution width (RBC) [Entitic vol] 59.4 fL 35.1-43.9 [facility] Erythrocyte distribution width (RBC) [Ratio] 16.7 % 11.6-14.6 [facility] Immature granulocytes/100 WBC (Bld) 0.400 % 0.0-0.9 [facility] Comment on above: IG% - Immature Granu locytes (promyelocytes, myelocytes and metamyelocytes) > 1% indicates that a LEFT SHIFT is Present. MCH (RBC) [Entitic mass] 31.2 pg 27.0-32.0 [facility] Nucleated RBC/100 WBC (Bld) [Ratio] 0 % 0-5 [facility] MCHC Auto (RBC) [Mass/Vol]Or dered By: Josh Flores on 02-17-2023 MCHC (RBC) [Mass/Vol] 32.5 g/dL 32-36 [facility] No Panel InformationOrdered By: Josh Flores on 02-17-2023 Estimated GFR (MDRD) Amer 134 mL/min >60 [facility] Comment on above: GFR Calc Estimated GFR (MDRD) Non-Af Amer 110 mL/min >60 [facility] Comment on above: Non- GFR Calc Platelets bldOrdered By: Lorenzo Flores on 02-17-2023 Platelets (Bld) [#/Vol] 475 10*3/uL 150-450 [facility] Serum or plasma albumin alexander urement (mass/volume)Ordered By: Josh Flores on 02-17-2023 Albumin [Mass/Vol] 2.7 g/dL 3.2-5.0 [facility] Serum or plasma albumin/glob ulin mass ratioOrdered By: Josh Flores on 02-17-2023 Albumin/Globulin [Mass ratio] 0.7 {ratio} 0.9-2.4 [facility] Serum or plasma calcium alexander urement (mass/volume)Ordered By: Josh Flores on 02-17-2023 Calcium [Mass/Vol] 9.2 mg/dL 8.5-10.1 [facility] Serum or plasma creatinine m easurement (mass/volume)Ordered By: Josh Flores on 02-17-2023 Creatinine [Mass/Vol] 0.56 mg/dL 0.55-1.02 [facility] Comment on above: The validity of the calculated GFR & GFRAA in patients over 70 years has not been determined. Clinical correlation is essential. Serum or plasma urea nitroge n measurement (mass/volume)Ordered By: Josh Flores on 02-17-2023 Urea nitrogen [Mass/Vol] 14 mg/dL -18 [facility] Thin prep Papanicolaou smear with manual screeningOrdered By: Josh Flores on 02-17-2023 Thin prep Papanicolaou smear with manual screening 22 U/L [facility] Thin prep Papanicolaou smear with manual screening 10 - [facility] .Auto Diffon 02-15-2023 Basophil, Absolute 0.0 10 3/mcL Normal 0.0-0.3 [facility] ([place]) Comment on above: Performed By: #### B MP, ANEU, GFR, CBC, ADIFF #### [address] [address] Basophils/100 WBC (Bld) 0.5 % Normal 0.0-2.5 [facility] ([place]) Comment on above: Performed By: #### B MP, ANEU, GFR, CBC, ADIFF #### [address] [address] Eosinophil, Absolute 0.2 10 3/mcL Normal 0.0-0.7 [facility] ([place] Comment on above: Performed By: #### B MP, ANEU, GFR, CBC, ADIFF #### [address] [address] Eosinophils/100 WBC (Bld) 3.2 % Normal 0.0-6.0 [facility] ([place]) Comment on above: Performed By: #### B MP, ANEU, GFR, CBC, ADIFF #### [address] [address] Lymphocyte, Absolute 1.4 10 3/mcL Normal 0.9-4.3 [facility] [place]) Comment on above: Performed By: #### B MP, ANEU, GFR, CBC, ADIFF #### [address] [address] Lymphocytes/100 WBC (Bld) 21.2 % Normal 20.0-40.0 [facility] ([place]) Comment on above: Performed By: #### B MP, ANEU, GFR, CBC, ADIFF #### [address] [address] Monocyte, Absolute 0.5 10 3/mcL Normal 0.1-1.4 [facility] ([place]) Comment on above: Performed By: #### B MP, ANEU, GFR, CBC, ADIFF #### [address] [address] Monocytes/100 WBC (Bld) 8.4 % Normal 2.0-13.0 [facility] ([place]) Comment on above: Performed By: #### B MP, ANEU, GFR, CBC, ADIFF #### [address] [address] Neutrophils/100 WBC (Bld) 66.7 % Normal 50.0-75.0 [facility] ([place]) Comment on above: Performed By: #### B MP, ANEU, GFR, CBC, ADIFF #### [address] [address] .GFRon 02-15-2023 GFR >60 Normal [facility] ([place]) Comment on above: Result Comment: GFR Population mean for , Non- Americans Ages 20-29 = 116 mL/min/1.73 sq.m. Ages 30-39 = 107 mL/min/1.73 sq.m. Ages 40-49 = 99 mL/min/1.73 sq.m. Ages 50-59 = 93 mL/min/1.73 sq.m. Ages 60-69 = 85 mL/min/1.73 sq.m. Ages 70+ = 75 mL/min/1.73 sq.m. Chronic Kidney Disease: Less than 60 mL/min/1.73 square meters End Stage Renal Disease: Less than 15 mL/min/1.73 square meters Performed By: #### B MP, ANEU, GFR, CBC, ADIFF #### [address] [address] GFR Non- >60 Normal [facility] ([place]) Comment on above: Result Comment: GFR Population mean for , Non- Americans Ages 20-29 = 116 mL/min/1.73 sq.m. Ages 30-39 = 107 mL/min/1.73 sq.m. Ages 40-49 = 99 mL/min/1.73 sq.m. Ages 50-59 = 93 mL/min/1.73 sq.m. Ages 60-69 = 85 mL/min/1.73 sq.m. Ages 70+ = 75 mL/min/1.73 sq.m. Chronic Kidney Disease: Less than 60 mL/min/1.73 square meters End Stage Renal Disease: Less than 15 mL/min/1.73 square meters Performed By: #### B MP, ANEU, GFR, CBC, ADIFF #### [address] [address] .NEUABSon 02-15-2023 Neutrophil, Absolute 4.3 10 3/mcL Normal 2.3-8.1 [facility] Comment on above: Performed By: #### B MP, ANEU, GFR, CBC, ADIFF #### [address] [address] BMPon 02-15-2023 BUN/Creatinine Ratio 28.0 ratio High 10.0-22.0 [facility] ([place]) Comment on above: Performed By: #### B MP, ANEU, GFR, CBC, ADIFF #### [address] [address] Calcium [Mass/Vol] 8.1 mg/dL Low 8.7-10.4 [facility] ([place]) Comment on above: Performed By: #### B MP, ANEU, GFR, CBC, ADIFF #### [address] [address] Chloride [Moles/Vol] 100 mmol/L Normal 98-110 [facility] ([place]) Comment on above: Performed By: #### B MP, ANEU, GFR, CBC, ADIFF #### [address] [address] CO2 [Moles/Vol] 28 mmol/L Normal 22-32 [facility] ([place]) Comment on above: Performed By: #### B MP, ANEU, GFR, CBC, ADIFF #### [place] [id number] Creatinine [Mass/Vol] 0.50 mg/dL Normal 0.50-1.20 [facility] ([place]) Comment on above: Performed By: #### B MP, ANEU, GFR, CBC, ADIFF #### [place] [address] Electrolyte Balance 5.0 mEq/L Normal 4.0-15.0 [facility] ([place]) Comment on above: Performed By: #### B MP, ANEU, GFR, CBC, ADIFF #### [place] [address] Glucose [Mass/Vol] 102 mg/dL Normal 82-115 [facility] ([place]) Comment on above: Performed By: #### B MP, ANEU, GFR, CBC, ADIFF #### [place] [address] Potassium [Moles/Vol] 4.7 mmol/L Normal 3.5-5.0 [facility] ([place]) Comment on above: Performed By: #### B MP, ANEU, GFR, CBC, ADIFF #### [place] [address] Sodium [Moles/Vol] 133 mmol/L Low 136-145 [facility] ([place]) Comment on above: Performed By: #### B MP, ANEU, GFR, CBC, ADIFF #### [place] [address] Urea nitrogen [Mass/Vol] 14.0 mg/dL Normal 8.0-22.0 [facility] ([place]) Comment on above: Performed By: #### B MP, ANEU, GFR, CBC, ADIFF #### [place] [id number] CBCon 02-15-2023 Erythrocyte distribution width (RBC) [Ratio] 17.7 % High 11.5-15.5 [facility] ([place]) Comment on above: Performed By: #### B MP, ANEU, GFR, CBC, ADIFF #### [place] [id number] Hematocrit (Bld) [Volume fraction] 20.7 % Low 34.0-46.0 [facility] ([place]) Comment on above: Performed By: #### B MP, ANEU, GFR, CBC, ADIFF #### [place] [address] Hgb 7.1 G/dL Low 12.0-16.0 [facility] ([place]) Comment on above: Performed By: #### B MP, ANEU, GFR, CBC, ADIFF #### [place] [address] MCH (RBC) [Entitic mass] 32.4 pg Normal 27.0-33.0 [facility] ([place]) Comment on above: Performed By: #### B MP, ANEU, GFR, CBC, ADIFF #### [place] [address] MCHC 34.4 G/dL Normal 32.0-36.0 [facility] ([place]) Comment on above: Performed By: #### B MP, ANEU, GFR, CBC, ADIFF #### [place] [address] MCV (RBC) [Entitic vol] 94.3 fL Normal 80.0-99.0 [facility] ([place]) Comment on above: Performed By: #### B MP, ANEU, GFR, CBC, ADIFF #### [place] [address] Platelet 258 10 3/mcL Normal 150-450 [facility] ([place]) Comment on above: Performed By: #### B MP, ANEU, GFR, CBC, ADIFF #### [place] [address] Platelet mean volume (Bld) [Entitic vol] 7.6 fL Normal 6.6-10.5 [facility] ([place]) Comment on above: Performed By: #### B MP, ANEU, GFR, CBC, ADIFF #### [place] [address] RBC 2.19 10 6/mcL Low 4.10-5.30 [facility] ([place]) Comment on above: Performed By: #### B MP, ANEU, GFR, CBC, ADIFF #### [place] [id number] [place] [address] WBC 6.4 10 3/mcL Normal 4.5-10.8 [facility] ([place]) Comment on above: Performed By: #### B MP, ANEU, GFR, CBC, ADIFF #### [place] [address] CVFLURVon 02-15-2023 FLU A PCR Negative Normal Negative [facility] ([place]) Comment on above: Result Comment: Note s [id number] Performed By: #### B MP, ANEU, GFR, CBC, ADIFF #### [place] [address] FLU B PCR Negative Normal Negative [facility] ([place]) Comment on above: Result Comment: Note s [id number] Performed By: #### B MP, ANEU, GFR, CBC, ADIFF #### [place] [address] RSV PCR Negative Normal Negative [facility] ([place]) Comment on above: Result Comment: Note s [id number] Performed By: #### B MP, ANEU, GFR, CBC, ADIFF #### [place] [address] SARS-CoV-2 (COVID-19) RNA NAYE+probe Ql (Unsp spec) Negative Normal Negative [facility] ([place]) Comment on above: Result Comment: Note s [id number] This test has been authorized by FDA under an EUA for use by authorized laboratories and has not been FDA cleared or approved. Results from the Xpert Xpress SARS-CoV-2/Flu/RSV or Xpert Xpress SARS-CoV-2 only test should be correlated with the clinical history, epidemiological data, and other data available to the clinician evaluating the patient. Performance of the Xpert Xpress SARS-CoV-2/Flu/RSV or Xpert Xpress SARS-CoV-2 only test has only been established in nasopharyngeal swab specimens. Erroneous test results might occur from improper specimen collection; failure to follow the recommended sample collection, handling, and storage procedures; technical error; or sample mix-up.False negative results may occur if virus is present at levels below the analytical limit of detection. Viral nucleic acid may persist in vivo, independent of virus viability. Detection of analyte target(s) does not imply that the corresponding virus(es) are infectious or are the causative agents for clinical symptoms.Recent patient exposure to FluMist or other live attenuated influenza vaccines may cause inaccurate positive results. Performed By: #### B MP, ANEU, GFR, CBC, ADIFF #### [address] [address] .Auto Diffon 02-14-2023 Basophil, Absolute 0.0 10 3/mcL Normal 0.0-0.3 [facility] ([place]) Comment on above: Performed By: #### G FR, BMP, ADIFF, CBC, ANEU #### [address] [address] Basophils/100 WBC (Bld) 0.2 % Normal 0.0-2.5 [facility] ([place]) Comment on above: Performed By: #### G FR, BMP, ADIFF, CBC, ANEU #### [address] [address] Eosinophil, Absolute 0.2 10 3/mcL Normal 0.0-0.7 [facility] ([place] Comment on above: Performed By: #### G FR, BMP, ADIFF, CBC, ANEU #### [address] [address] Eosinophils/100 WBC (Bld) 2.7 % Normal 0.0-6.0 [facility] ([place]) Comment on above: Performed By: #### G FR, BMP, ADIFF, CBC, ANEU #### [address] [address] Lymphocyte, Absolute 1.4 10 3/mcL Normal 0.9-4.3 [facility] Comment on above: Performed By: #### G FR, BMP, ADIFF, CBC, ANEU #### [address] [address] Lymphocytes/100 WBC (Bld) 20.8 % Normal 20.0-40.0 [facility] ([place]) Comment on above: Performed By: #### G FR, BMP, ADIFF, CBC, ANEU #### [address] [address] Monocyte, Absolute 0.5 10 3/mcL Normal 0.1-1.4 [facility] ([place]) Comment on above: Performed By: #### G FR, BMP, ADIFF, CBC, ANEU #### [address] [address] Monocytes/100 WBC (Bld) 7.4 % Normal 2.0-13.0 [facility] ([place]) Comment on above: Performed By: #### G FR, BMP, ADIFF, CBC, ANEU #### [address] [address] Neutrophils/100 WBC (Bld) 68.9 % Normal 50.0-75.0 [facility] ([place]) Comment on above: Performed By: #### G FR, BMP, ADIFF, CBC, ANEU #### [address] [address] .GFRon 02-14-2023 GFR >60 Normal [facility] ([place]) Comment on above: Result Comment: GFR Population mean for , Non- Americans Ages 20-29 = 116 mL/min/1.73 sq.m. Ages 30-39 = 107 mL/min/1.73 sq.m. Ages 40-49 = 99 mL/min/1.73 sq.m. Ages 50-59 = 93 mL/min/1.73 sq.m. Ages 60-69 = 85 mL/min/1.73 sq.m. Ages 70+ = 75 mL/min/1.73 sq.m. Chronic Kidney Disease: Less than 60 mL/min/1.73 square meters End Stage Renal Disease: Less than 15 mL/min/1.73 square meters Performed By: #### G FR, BMP, ADIFF, CBC, ANEU #### [address] [address] GFR Non- >60 Normal [facility] ([place]) Comment on above: Result Comment: GFR Population mean for , Non- Americans Ages 20-29 = 116 mL/min/1.73 sq.m. Ages 30-39 = 107 mL/min/1.73 sq.m. Ages 40-49 = 99 mL/min/1.73 sq.m. Ages 50-59 = 93 mL/min/1.73 sq.m. Ages 60-69 = 85 mL/min/1.73 sq.m. Ages 70+ = 75 mL/min/1.73 sq.m. Chronic Kidney Disease: Less than 60 mL/min/1.73 square meters End Stage Renal Disease: Less than 15 mL/min/1.73 square meters Performed By: #### G FR, BMP, ADIFF, CBC, ANEU #### [address] [address] .NEUABSon 02-14-2023 Neutrophil, Absolute 4.6 10 3/mcL Normal 2.3-8.1 [facility] Comment on above: Performed By: #### G FR, BMP, ADIFF, CBC, ANEU #### [address] [address] BMPon 02-14-2023 BUN/Creatinine Ratio 29.8 ratio High 10.0-22.0 [facility] ([place]) Comment on above: Performed By: #### G FR, BMP, ADIFF, CBC, ANEU #### [address] [address] Calcium [Mass/Vol] 8.0 mg/dL Low 8.7-10.4 [facility] ([place]) Comment on above: Performed By: #### G FR, BMP, ADIFF, CBC, ANEU #### [address] [address] Chloride [Moles/Vol] 102 mmol/L Normal 98-110 [facility] ([place]) Comment on above: Performed By: #### G FR, BMP, ADIFF, CBC, ANEU #### [address] [address] CO2 [Moles/Vol] 32 mmol/L Normal 22-32 [facility] ([place]) Comment on above: Performed By: #### G FR, BMP, ADIFF, CBC, ANEU #### [address] [address] Creatinine [Mass/Vol] 0.57 mg/dL Normal 0.50-1.20 [facility] ([place]) Comment on above: Performed By: #### Rosalie FR, BMP, ADIFF, CBC, ANEU #### [place] [id number] Electrolyte Balance -1.0 mEq/L Low 4.0-15.0 [facility] ([place]) Comment on above: Performed By: #### Rosalie FR, BMP, ADIFF, CBC, ANEU #### [place] [address] Glucose [Mass/Vol] 100 mg/dL Normal 82-115 [facility] ([place]) Comment on above: Performed By: #### Rosalie STOVALL, BMP, ADIFF, CBC, ANEU #### [place] [address] Potassium [Moles/Vol] 4.7 mmol/L Normal 3.5-5.0 [facility] ([place]) Comment on above: Performed By: #### Rosalie FR, BMP, ADIFF, CBC, ANEU #### [place] [id number] Sodium [Moles/Vol] 133 mmol/L Low 136-145 [facility] ([place]) Comment on above: Performed By: #### Rosalie FR, BMP, ADIFF, CBC, ANEU #### [place] [id number] Urea nitrogen [Mass/Vol] 17.0 mg/dL Normal 8.0-22.0 [facility] ([place]) Comment on above: Performed By: #### G FR, BMP, ADIFF, CBC, ANEU #### [address] [address] CBCon 02-14-2023 Erythrocyte distribution width (RBC) [Ratio] 17.9 % High 11.5-15.5 [facility] ([place]) Comment on above: Performed By: #### G FR, BMP, ADIFF, CBC, ANEU #### [place] [id number] Hematocrit (Bld) [Volume fraction] 21.0 % Low 34.0-46.0 [facility] ([place]) Comment on above: Performed By: #### G FR, BMP, ADIFF, CBC, ANEU #### [place] [address] Hgb 7.1 G/dL Low 12.0-16.0 [facility] ([place]) Comment on above: Performed By: #### G FR, BMP, ADIFF, CBC, ANEU #### [place] [address] MCH (RBC) [Entitic mass] 31.8 pg Normal 27.0-33.0 [facility] ([place]) Comment on above: Performed By: #### G FR, BMP, ADIFF, CBC, ANEU #### [place] [address] MCHC 33.7 G/dL Normal 32.0-36.0 [facility] ([place]) Comment on above: Performed By: #### G FR, BMP, ADIFF, CBC, ANEU #### [place] [address] MCV (RBC) [Entitic vol] 94.4 fL Normal 80.0-99.0 [facility] ([place]) Comment on above: Performed By: #### G FR, BMP, ADIFF, CBC, ANEU #### [place] [address] Platelet 221 10 3/mcL Normal 150-450 [facility] ([place]) Comment on above: Performed By: #### G FR, BMP, ADIFF, CBC, ANEU #### [place] [address] Platelet mean volume (Bld) [Entitic vol] 7.8 fL Normal 6.6-10.5 [facility] ([place]) Comment on above: Performed By: #### G FR, BMP, ADIFF, CBC, ANEU #### [place] [address] RBC 2.22 10 6/mcL Low 4.10-5.30 [facility] ([place]) Comment on above: Performed By: #### G FR, BMP, ADIFF, CBC, ANEU #### [address] [address] WBC 6.6 10 3/mcL Normal 4.5-10.8 [facility] ([place]) Comment on above: Performed By: #### G FR, BMP, ADIFF, CBC, ANEU #### [address] [address] .Auto Diffon 02-13-2023 Basophil, Absolute 0.0 10 3/mcL Normal 0.0-0.3 [facility] ([place]) Comment on above: Performed By: #### B MP, ANEU, GFR, CBC, ADIFF #### [address] [address] Basophils/100 WBC (Bld) 0.2 % Normal 0.0-2.5 [facility] ([place]) Comment on above: Performed By: #### B MP, ANEU, GFR, CBC, ADIFF #### [address] [address] Eosinophil, Absolute 0.1 10 3/mcL Normal 0.0-0.7 [facility] ([facility] Comment on above: Performed By: #### B MP, ANEU, GFR, CBC, ADIFF #### [address] [address] Eosinophils/100 WBC (Bld) 1.3 % Normal 0.0-6.0 [facility] ([place]) Comment on above: Performed By: #### B MP, ANEU, GFR, CBC, ADIFF #### [address] [address] Lymphocyte, Absolute 1.1 10 3/mcL Normal 0.9-4.3 [facility] ([facility]) Comment on above: Performed By: #### B MP, ANEU, GFR, CBC, ADIFF #### [address] [address] Lymphocytes/100 WBC (Bld) 12.3 % Low 20.0-40.0 [facility] ([place]) Comment on above: Performed By: #### B MP, ANEU, GFR, CBC, ADIFF #### [address] [address] Monocyte, Absolute 0.6 10 3/mcL Normal 0.1-1.4 [facility] ([place]) Comment on above: Performed By: #### B MP, ANEU, GFR, CBC, ADIFF #### [address] [address] Monocytes/100 WBC (Bld) 6.4 % Normal 2.0-13.0 [facility] ([place]) Comment on above: Performed By: #### B MP, ANEU, GFR, CBC, ADIFF #### [address] [address] Neutrophils/100 WBC (Bld) 79.8 % High 50.0-75.0 [facility] ([place]) Comment on above: Performed By: #### B MP, ANEU, GFR, CBC, ADIFF #### [address] [address] .GFRon 02-13-2023 GFR >60 Normal [facility] ([place]) Comment on above: Result Comment: GFR Population mean for , Non- Americans Ages 20-29 = 116 mL/min/1.73 sq.m. Ages 30-39 = 107 mL/min/1.73 sq.m. Ages 40-49 = 99 mL/min/1.73 sq.m. Ages 50-59 = 93 mL/min/1.73 sq.m. Ages 60-69 = 85 mL/min/1.73 sq.m. Ages 70+ = 75 mL/min/1.73 sq.m. Chronic Kidney Disease: Less than 60 mL/min/1.73 square meters End Stage Renal Disease: Less than 15 mL/min/1.73 square meters Performed By: #### B MP, ANEU, GFR, CBC, ADIFF #### [address] [address] GFR Non- >60 Normal [facility] ([place]) Comment on above: Result Comment: GFR Population mean for , Non- Americans Ages 20-29 = 116 mL/min/1.73 sq.m. Ages 30-39 = 107 mL/min/1.73 sq.m. Ages 40-49 = 99 mL/min/1.73 sq.m. Ages 50-59 = 93 mL/min/1.73 sq.m. Ages 60-69 = 85 mL/min/1.73 sq.m. Ages 70+ = 75 mL/min/1.73 sq.m. Chronic Kidney Disease: Less than 60 mL/min/1.73 square meters End Stage Renal Disease: Less than 15 mL/min/1.73 square meters Performed By: #### B MP, ANEU, GFR, CBC, ADIFF #### [address] [address] .NEUABSon 02-13-2023 Neutrophil, Absolute 6.9 10 3/mcL Normal 2.3-8.1 [facility] ([facility]) Comment on above: Performed By: #### B MP, ANEU, GFR, CBC, ADIFF #### [address] [address] BMPon 02-13-2023 BUN/Creatinine Ratio 37.9 ratio High 10.0-22.0 [facility] ([place]) Comment on above: Performed By: #### B MP, ANEU, GFR, CBC, ADIFF #### [address] [address] Calcium [Mass/Vol] 8.1 mg/dL Low 8.7-10.4 [facility] ([place]) Comment on above: Performed By: #### B MP, ANEU, GFR, CBC, ADIFF #### [address] [address] Chloride [Moles/Vol] 101 mmol/L Normal 98-110 [facility] ([place]) Comment on above: Performed By: #### B MP, ANEU, GFR, CBC, ADIFF #### [address] [address] CO2 [Moles/Vol] 24 mmol/L Normal 22-32 [facility] ([place]) Comment on above: Performed By: #### B MP, ANEU, GFR, CBC, ADIFF #### [address] [address] Creatinine [Mass/Vol] 0.58 mg/dL Normal 0.50-1.20 [facility] ([place]) Comment on above: Performed By: #### B MP, ANEU, GFR, CBC, ADIFF #### [address] [address] Electrolyte Balance 9.0 mEq/L Normal 4.0-15.0 [facility] ([place]) Comment on above: Performed By: #### B MP, ANEU, GFR, CBC, ADIFF #### [address] [address] Glucose [Mass/Vol] 106 mg/dL Normal 82-115 [facility] ([place]) Comment on above: Performed By: #### B MP, ANEU, GFR, CBC, ADIFF #### [address] [address] Potassium [Moles/Vol] 4.6 mmol/L Normal 3.5-5.0 [facility] ([place]) Comment on above: Performed By: #### B MP, ANEU, GFR, CBC, ADIFF #### [place] [id number] Sodium [Moles/Vol] 134 mmol/L Low 136-145 [facility] ([place]) Comment on above: Performed By: #### B MP, ANEU, GFR, CBC, ADIFF #### [address] [address] Urea nitrogen [Mass/Vol] 22.0 mg/dL Normal 8.0-22.0 [facility] ([place]) Comment on above: Performed By: #### B MP, ANEU, GFR, CBC, ADIFF #### [address] [address] CBCon 02-13-2023 Erythrocyte distribution width (RBC) [Ratio] 18.0 % High 11.5-15.5 [facility] ([place]) Comment on above: Performed By: #### B MP, ANEU, GFR, CBC, ADIFF #### [address] [address] Hematocrit (Bld) [Volume fraction] 23.8 % Low 34.0-46.0 [facility] ([place]) Comment on above: Performed By: #### B MP, ANEU, GFR, CBC, ADIFF #### [address] [address] Hgb 8.0 G/dL Low 12.0-16.0 [facility] ([place]) Comment on above: Performed By: #### B MP, ANEU, GFR, CBC, ADIFF #### [place] [address] MCH (RBC) [Entitic mass] 32.0 pg Normal 27.0-33.0 [facility] ([place]) Comment on above: Performed By: #### B MP, ANEU, GFR, CBC, ADIFF #### [place] [address] MCHC 33.6 G/dL Normal 32.0-36.0 [facility] ([place]) Comment on above: Performed By: #### B MP, ANEU, GFR, CBC, ADIFF #### [place] [address] MCV (RBC) [Entitic vol] 95.0 fL Normal 80.0-99.0 [facility] ([place]) Comment on above: Performed By: #### B MP, ANEU, GFR, CBC, ADIFF #### [place] [address] Platelet 217 10 3/mcL Normal 150-450 [facility] ([place]) Comment on above: Performed By: #### B MP, ANEU, GFR, CBC, ADIFF #### [place] [address] Platelet mean volume (Bld) [Entitic vol] 8.1 fL Normal 6.6-10.5 [facility] ([place]) Comment on above: Performed By: #### B MP, ANEU, GFR, CBC, ADIFF #### [place] [address] RBC 2.51 10 6/mcL Low 4.10-5.30 [facility] ([place]) Comment on above: Performed By: #### B MP, ANEU, GFR, CBC, ADIFF #### [place] [address] WBC 8.7 10 3/mcL Normal 4.5-10.8 [facility] ([place]) Comment on above: Performed By: #### B MP, ANEU, GFR, CBC, ADIFF #### [place] [address] [address] HEAD OR BRAIN W/O CONTRAS Ton 02-13-2023 CT HEAD OR BRAIN W/O CONTRAST ORIGINAL EXAMINATION: CT OF THE HEAD WITHOUT CONTRAST 02/13/2023 6:06 am TECHNIQUE: CT of the head was performed without the administration of intravenous contrast. Automated exposure control, iterative reconstruction, and/or weight based adjustment of the mA/kV was utilized to reduce the radiation dose to as low as reasonably achievable. COMPARISON: CT head on 02/12/2023 HISTORY: ORDERING SYSTEM PROVIDED HISTORY: Reason for Exam: SDH FINDINGS: BRAIN/VENTRICLES: The acute right parafalcine subdural hematoma has maximum width of 9 mm and is unchanged in size. The subdural hematoma does extend into the right tentorial leaflet with a width of 3 mm. No new area of hemorrhage has developed. There is no hydrocephalus or intraventricular hemorrhage. There is no sign of acute infarction. Differentiation of frederick matter white matter is maintained. ORBITS: The visualized portion of the orbits demonstrate no acute abnormality. SINUSES: The visualized paranasal sinuses and mastoid air cells demonstrate no acute abnormality. SOFT TISSUES/SKULL: No acute abnormality of the visualized skull or soft tissues. IMPRESSION: Unchanged acute right parafalcine subdural hematoma. Interpreted by: Cristi Upton MD Preliminary Report By: Cristi Upton MD Electronically signed By Cristi Upton MD Dictated Date: 02/13/2023 6:18:34 AM Prelim Date: 02/13/2023 6:21:27 AM Sign Date: 02/13/2023 6:21:27 AM Ordering Provider: SHA Avalos [facility] (OR) XR FLUORO 1-2 HRS TECH TIMEo tanesha 02-13-2023 XR FLUORO 1-2 HRS TECH TIME ORIGINAL EXAMINATION: SPOT FLUOROSCOPIC IMAGES 02/12/2023 12:53 pm TECHNIQUE: Fluoroscopy was provided by the radiology department for procedure. Radiologist was not present during examination. FLUOROSCOPY DOSE AND TYPE: Radiation Exposure Index: 9.489 mGy reference air kerma, Fluoro time: 1 minute 21 seconds COMPARISON: Right hip x-ray on 02/11/2023 HISTORY: ORDERING SYSTEM PROVIDED HISTORY: Reason for Exam: RT HIP FX Intraprocedural imaging. FINDINGS: 7 spot images of the right hip were obtained. Imaging guidance provided for open reduction internal fixation of the right hip. IMPRESSION: Intraprocedural fluoroscopic spot images as above. See separate procedure report for more information. Interpreted by: Cristi Upton MD Preliminary Report By: Cristi Upton MD Electronically signed By Cristi Upton MD Dictated Date: 02/13/2023 1:23:24 AM Prelim Date: 02/13/2023 1:24:55 AM Sign Date: 02/13/2023 1:24:55 AM Ordering Provider: ALANA Avalos [facility] ([place]) .Auto Diffon 02-12-2023 Basophil, Absolute 0.0 10 3/mcL Normal 0.0-0.3 [facility] ([place]) Comment on above: Performed By: #### B MP, ANEU, GFR, CBC, ADIFF #### [address] [address] Basophils/100 WBC (Bld) 0.2 % Normal 0.0-2.5 [facility] ([place]) Comment on above: Performed By: #### B MP, ANEU, GFR, CBC, ADIFF #### [address] [address] Eosinophil, Absolute 0.0 10 3/mcL Normal 0.0-0.7 [facility] ([facility]) Comment on above: Performed By: #### B MP, ANEU, GFR, CBC, ADIFF #### [address] [address] Eosinophils/100 WBC (Bld) 0.3 % Normal 0.0-6.0 [facility] ([place]) Comment on above: Performed By: #### B MP, ANEU, GFR, CBC, ADIFF #### [address] [address] Lymphocyte, Absolute 1.4 10 3/mcL Normal 0.9-4.3 [facility] ([place]) Comment on above: Performed By: #### B MP, ANEU, GFR, CBC, ADIFF #### [address] [address] Lymphocytes/100 WBC (Bld) 10.7 % Low 20.0-40.0 [facility] ([place]) Comment on above: Performed By: #### B MP, ANEU, GFR, CBC, ADIFF #### [address] [address] Monocyte, Absolute 0.6 10 3/mcL Normal 0.1-1.4 [facility] ([place]) Comment on above: Performed By: #### B MP, ANEU, GFR, CBC, ADIFF #### [address] [address] Monocytes/100 WBC (Bld) 4.9 % Normal 2.0-13.0 [facility] ([place]) Comment on above: Performed By: #### B MP, ANEU, GFR, CBC, ADIFF #### [address] [address] Neutrophils/100 WBC (Bld) 83.9 % High 50.0-75.0 [facility] ([place]) Comment on above: Performed By: #### B MP, ANEU, GFR, CBC, ADIFF #### [address] [address] .GFRon 02-12-2023 GFR >60 Normal [facility] ([place]) Comment on above: Result Comment: GFR Population mean for , Non- Americans Ages 20-29 = 116 mL/min/1.73 sq.m. Ages 30-39 = 107 mL/min/1.73 sq.m. Ages 40-49 = 99 mL/min/1.73 sq.m. Ages 50-59 = 93 mL/min/1.73 sq.m. Ages 60-69 = 85 mL/min/1.73 sq.m. Ages 70+ = 75 mL/min/1.73 sq.m. Chronic Kidney Disease: Less than 60 mL/min/1.73 square meters End Stage Renal Disease: Less than 15 mL/min/1.73 square meters Performed By: #### B MP, ANEU, GFR, CBC, ADIFF #### [address] [address] GFR Non- >60 Normal [facility] ([place]) Comment on above: Result Comment: GFR Population mean for , Non- Americans Ages 20-29 = 116 mL/min/1.73 sq.m. Ages 30-39 = 107 mL/min/1.73 sq.m. Ages 40-49 = 99 mL/min/1.73 sq.m. Ages 50-59 = 93 mL/min/1.73 sq.m. Ages 60-69 = 85 mL/min/1.73 sq.m. Ages 70+ = 75 mL/min/1.73 sq.m. Chronic Kidney Disease: Less than 60 mL/min/1.73 square meters End Stage Renal Disease: Less than 15 mL/min/1.73 square meters Performed By: #### B MP, ANEU, GFR, CBC, ADIFF #### [address] [address] .NEUABSon 02-12-2023 Neutrophil, Absolute 10.9 10 3/mcL High 2.3-8.1 [facility] ([place]) Comment on above: Performed By: #### B MP, ANEU, GFR, CBC, ADIFF #### [address] [address] ABO/Rh (Gel)on 02-12-2023 ABO/Rh Interp Negative Invalid Interpretation Code [facility] ([place]) Comment on above: Performed By: #### B MP, ANEU, GFR, CBC, ADIFF #### [address] [address] ABS (Gel)on 02-12-2023 ABSC Interp (Gel) Negative Normal [facility] ([place]) Comment on above: Performed By: #### B MP, ANEU, GFR, CBC, ADIFF #### [address] [address] BMPon 02-12-2023 BUN/Creatinine Ratio 37.0 ratio High 10.0-22.0 [facility] ([place]) Comment on above: Performed By: #### B MP, ANEU, GFR, CBC, ADIFF #### [address] [address] Calcium [Mass/Vol] 9.1 mg/dL Normal 8.7-10.4 [facility] ([place]) Comment on above: Performed By: #### B MP, ANEU, GFR, CBC, ADIFF #### [address] [address] Chloride [Moles/Vol] 101 mmol/L Normal 98-110 [facility] ([place]) Comment on above: Performed By: #### B MP, ANEU, GFR, CBC, ADIFF #### [address] [address] CO2 [Moles/Vol] 23 mmol/L Normal 22-32 [facility] ([place]) Comment on above: Performed By: #### B MP, ANEU, GFR, CBC, ADIFF #### [address] [address] Creatinine [Mass/Vol] 0.73 mg/dL Normal 0.50-1.20 [facility] ([place]) Comment on above: Performed By: #### B MP, ANEU, GFR, CBC, ADIFF #### [address] [address] Electrolyte Balance 9.0 mEq/L Normal 4.0-15.0 [facility] ([place]) Comment on above: Performed By: #### B MP, ANEU, GFR, CBC, ADIFF #### [address] [address] Glucose [Mass/Vol] 118 mg/dL High 82-115 [facility] ([place]) Comment on above: Performed By: #### B MP, ANEU, GFR, CBC, ADIFF #### [address] [address] Potassium [Moles/Vol] 4.7 mmol/L Normal 3.5-5.0 [facility] ([place]) Comment on above: Performed By: #### B MP, ANEU, GFR, CBC, ADIFF #### [address] [address] Sodium [Moles/Vol] 133 mmol/L Low 136-145 [facility] ([place]) Comment on above: Performed By: #### B MP, ANEU, GFR, CBC, ADIFF #### [place] [address] Urea nitrogen [Mass/Vol] 27.0 mg/dL High 8.0-22.0 [facility] ([place]) Comment on above: Performed By: #### B MP, ANEU, GFR, CBC, ADIFF #### [place] [id number] CBCon 02-12-2023 Erythrocyte distribution width (RBC) [Ratio] 18.2 % High 11.5-15.5 [facility] ([place]) Comment on above: Performed By: #### B MP, ANEU, GFR, CBC, ADIFF #### [place] [address] Hematocrit (Bld) [Volume fraction] 34.7 % Normal 34.0-46.0 [facility] ([place]) Comment on above: Performed By: #### B MP, ANEU, GFR, CBC, ADIFF #### [place] [address] Hgb 11.4 G/dL Low 12.0-16.0 [facility] ([place]) Comment on above: Performed By: #### B MP, ANEU, GFR, CBC, ADIFF #### [place] [address] MCH (RBC) [Entitic mass] 31.0 pg Normal 27.0-33.0 [facility] ([place]) Comment on above: Performed By: #### B MP, ANEU, GFR, CBC, ADIFF #### [place] [address] MCHC 32.7 G/dL Normal 32.0-36.0 [facility] ([place]) Comment on above: Performed By: #### B MP, ANEU, GFR, CBC, ADIFF #### [place] [address] MCV (RBC) [Entitic vol] 94.9 fL Normal 80.0-99.0 [facility] ([place]) Comment on above: Performed By: #### B MP, ANEU, GFR, CBC, ADIFF #### [address] [address] Platelet 283 10 3/mcL Normal 150-450 [facility] ([place]) Comment on above: Performed By: #### B MP, ANEU, GFR, CBC, ADIFF #### [place] [id number] [place] [address] Platelet mean volume (Bld) [Entitic vol] 7.7 fL Normal 6.6-10.5 [facility] ([place]) Comment on above: Performed By: #### B MP, ANEU, GFR, CBC, ADIFF #### [address] [address] RBC 3.66 10 6/mcL Low 4.10-5.30 [facility] ([place]) Comment on above: Performed By: #### B MP, ANEU, GFR, CBC, ADIFF #### [address] [address] WBC 12.9 10 3/mcL High 4.5-10.8 [facility] ([place]) Comment on above: Performed By: #### B MP, ANEU, GFR, CBC, ADIFF #### [address] [address] [address] HEAD OR BRAIN W/O CONTRAS Ton 02-12-2023 CT HEAD OR BRAIN W/O CONTRAST ORIGINAL EXAMINATION: CT OF THE HEAD WITHOUT CONTRAST 02/12/2023 8:10 am TECHNIQUE: CT of the head was performed without the administration of intravenous contrast. Automated exposure control, iterative reconstruction, and/or weight based adjustment of the mA/kV was utilized to reduce the radiation dose to as low as reasonably achievable. COMPARISON: CT head on 02/11/2023 HISTORY: ORDERING SYSTEM PROVIDED HISTORY: Reason for Exam: SDH FINDINGS: BRAIN/VENTRICLES: There is an acute subdural hematoma along the right side of the falx cerebri that has maximum width of 9 mm, and is unchanged since CT scan on the prior day. This creates only mild mass effect. The subdural hematoma extends along the right tentorial leaf as well measuring just 3 mm. There is no shift of midline structures. No intraventricular or intraparenchymal hemorrhage is present. The frederick-white differentiation is maintained without evidence of an acute infarct. There is no evidence of hydrocephalus. Scattered parenchymal hypodensities in the cerebral white matter are nonspecific but statistically most consistent with moderate chronic microvascular angiopathy. There is proportionate enlargement of the ventricular system and cortical sulci compatible with parenchymal volume loss. ORBITS: The visualized portion of the orbits demonstrate no acute abnormality. SINUSES: The visualized paranasal sinuses and mastoid air cells demonstrate no acute abnormality. SOFT TISSUES/SKULL: No acute abnormality of the visualized skull or soft tissues. IMPRESSION: Unchanged acute right parafalcine subdural hematoma with maximum width of 9 mm. Interpreted by: Cristi Upton MD Preliminary Report By: Cristi Upton MD Electronically signed By Cristi Upton MD Dictated Date: 02/12/2023 8:13:23 AM Prelim Date: 02/12/2023 8:18:29 AM Sign Date: 02/12/2023 8:18:29 AM Ordering Provider: SHA CELIS [facility] (OR) XR CHEST 1 VIEWon 02-12-2023 XR CHEST 1 VIEW ORIGINAL EXAMINATION: ONE XRAY VIEW OF THE CHEST; TWO XRAY VIEWS OF THE LEFT SCAPULA 02/12/2023 7:49 am COMPARISON: None. HISTORY: ORDERING SYSTEM PROVIDED HISTORY: Reason for Exam: preop FINDINGS: The heart size is normal. There is no lung infiltrate or edema. No pneumothorax or pleural fluid is present. X-rays of the left scapula demonstrate no fracture. The left glenohumeral alignment is normal. There is no evidence of fracture of proximal left humerus. Left clavicle is intact. The acromioclavicular alignment is normal. No rib fractures are detected. Patient has had right shoulder replacement. IMPRESSION: No acute radiographic abnormality of the chest. No fracture or dislocation of left scapula. Interpreted by: Cristi Upton MD Preliminary Report By: Cristi Upton MD Electronically signed By Cristi Upton MD Dictated Date: 02/12/2023 7:51:40 AM Prelim Date: 02/12/2023 7:54:21 AM Sign Date: 02/12/2023 7:54:21 AM Ordering Provider: ELY ANGUIANO [facility] (OR) XR FEMUR MINIMUM 2 VIEWS RIG HTon 02-12-2023 XR FEMUR MINIMUM 2 VIEWS RIGHT ORIGINAL EXAMINATION: TWO XRAY VIEWS OF THE RIGHT FEMUR 02/12/2023 7:52 am COMPARISON: Pelvis and right hip x-ray on 02/11/2023 HISTORY: ORDERING SYSTEM PROVIDED HISTORY: Reason for Exam: hip fracture, preop planning FINDINGS: There is an intertrochanteric fracture of the right hip with moderate varus angulation. Lesser trochanter is mildly displaced as a separate small fragment. The right femoral head remains seated in the acetabulum. There is no acetabular fracture. No additional fracture of the right femur is present. Tibiofemoral alignment appears normal. IMPRESSION: Intertrochanteric fracture of the right hip with moderate varus angulation. Interpreted by: Cristi Upton MD Preliminary Report By: Cristi Upton MD Electronically signed By Cristi Upton MD Dictated Date: 02/12/2023 7:56:28 AM Prelim Date: 02/12/2023 7:58:19 AM Sign Date: 02/12/2023 7:58:19 AM Ordering Provider: ELY ANGUIANO [facility] (OR) XR SCAPULA LEFTon 02-12-2023 XR SCAPULA LEFT ORIGINAL EXAMINATION: ONE XRAY VIEW OF THE CHEST; TWO XRAY VIEWS OF THE LEFT SCAPULA 02/12/2023 7:49 am COMPARISON: None. HISTORY: ORDERING SYSTEM PROVIDED HISTORY: Reason for Exam: preop FINDINGS: The heart size is normal. There is no lung infiltrate or edema. No pneumothorax or pleural fluid is present. X-rays of the left scapula demonstrate no fracture. The left glenohumeral alignment is normal. There is no evidence of fracture of proximal left humerus. Left clavicle is intact. The acromioclavicular alignment is normal. No rib fractures are detected. Patient has had right shoulder replacement. IMPRESSION: No acute radiographic abnormality of the chest. No fracture or dislocation of left scapula. Interpreted by: Cristi Upton MD Preliminary Report By: Cristi Upton MD Electronically signed By Cristi Upton MD Dictated Date: 02/12/2023 7:51:40 AM Prelim Date: 02/12/2023 7:54:21 AM Sign Date: 02/12/2023 7:54:21 AM Ordering Provider: ELY ANGUIANO [facility] ([place]) Absolute lymphocyte countOrd ered By: Lesvia Godlstein on 02-11-2023 Lymphocytes Auto (Unsp spec) [#/Vol] 0.96 10*3/uL 0.83-4.51 [facility] Basophil percentageOrdered B y: Lesvia Goldstein on 02-11-2023 Basophils/100 WBC (Bld) 0.1 % 0-1 [facility] Chloride [Moles/Vol] 102 mmol/L 98-107 [facility] Eosinophils/100 WBC (Bld) 18.9 % 0-5 [facility] Glucose [Mass/Vol] 133 mg/dL 74-106 [facility] Comment on above: Fasting Glucose resu lt greater than or equal to 126 mg/dL suggests DIABETES MELLITUS per A.D.A. criteria. Neutrophils (Bld) [#/Vol] 15.8 10*3/uL 2.0-7.7 [facility] Neutrophils/100 WBC (Bld) 70.7 % 47-70 [facility] Potassium [Moles/Vol] 3.8 mmol/L 3.5-5.1 [facility] Sodium [Moles/Vol] 135 mmol/L 136-145 [facility] WBC (Bld) [#/Vol] 22.4 10*3/uL 4.4-11.0 [facility] Blood erythrocytes count (nu mber/volume)Ordered By: Lesvia Goldstein on 02-11-2023 RBC (Bld) [#/Vol] 3.48 10*6/uL 4.2-5.4 [facility] Blood hemoglobin measurement (mass/volume)Ordered By: Lesvia Goldstein on 02-11-2023 Hemoglobin (Bld) [Mass/Vol] 11.1 g/dL 12.0-15.0 [facility] Blood lymphocytes/100 leukoc ytesOrdered By: Lesvia Goldstein on 02-11-2023 Lymphocytes/100 WBC (Bld) 4.3 % 19-41 [facility] Blood monocytes/100 leukocyt esOrdered By: Lesvia Goldstein on 02-11-2023 Monocytes/100 WBC (Bld) 5.0 % 0-10 [facility] Blood platelet adequacy dete ction by light microscopyOrdered By: Lesvia Goldstein on 02-11-2023 Platelets LM Ql (Bld) ADEQUATE ADEQ [facility] Blood platelet mean volumeOr dered By: Lesvia Goldstein on 02-11-2023 Platelet mean volume (Bld) [Entitic vol] 9.7 fL 6.2-12.0 [facility] Determination of erythrocyte mean corpuscular volume (MCV)Ordered By: Lesvia Goldstein on 02-11-2023 MCV (RBC) [Entitic vol] 94.8 fL 81-99 [facility] Hematocrit Auto (Bld) [Volum e fraction]Ordered By: Lesvia Goldstein on 02-11-2023 Hematocrit (Bld) [Volume fraction] 33.0 % 37-47 [facility] Laboratory - Chemistry and C hemistry - challengeOrdered By: Lesvia Goldstein on 02-11-2023 CK [Catalytic activity/Vol] 237 U/L 26-192 [facility] CO2 [Moles/Vol] 26.0 mmol/L 21.0-32.0 [facility] Urea nitrogen/Creatinine [Mass ratio] 39.5 mg/mg 10-20 [facility] Laboratory - Hematology and Cell countsOrdered By: Lesvia Goldstein on 02-11-2023 Erythrocyte distribution width (RBC) [Entitic vol] 59.5 fL 35.1-43.9 [facility] Erythrocyte distribution width (RBC) [Ratio] 17.2 % 11.6-14.6 [facility] Immature granulocytes/100 WBC (Bld) 1.000 % 0.0-0.9 [facility] Comment on above: IG% - Immature Granu locytes (promyelocytes, myelocytes and metamyelocytes) > 1% indicates that a LEFT SHIFT is Present. MCH (RBC) [Entitic mass] 31.9 pg 27.0-32.0 [facility] Nucleated RBC/100 WBC (Bld) [Ratio] 0 % 0-5 [facility] MCHC Auto (RBC) [Mass/Vol]Or dered By: Lesvia Goldstein on 02-11-2023 MCHC (RBC) [Mass/Vol] 33.6 g/dL 32-36 [facility] No Panel InformationOrdered By: Lesvia Goldstein on 02-11-2023 Estimated Creatinine Clearance Calc 38.75 ml/min [facility] Estimated GFR (MDRD) Amer 128 mL/min >60 [facility] Comment on above: GFR Calc Estimated GFR (MDRD) Non-Af Amer 106 mL/min >60 [facility] Comment on above: Non- GFR Calc Platelets bldOrdered By: Ed Goldstein on 02-11-2023 Platelets (Bld) [#/Vol] 307 10*3/uL 150-450 [facility] RBC morphologyOrdered By: Chaparrita Goldstein on 02-11-2023 RBC morphology finding Nom (Bld) NORM C+C NORMAL NORM C&C [facility] Serum or plasma calcium alexander urement (mass/volume)Ordered By: Lesvia Goldstein on 02-11-2023 Calcium [Mass/Vol] 8.5 mg/dL 8.5-10.1 [facility] Serum or plasma creatinine m easurement (mass/volume)Ordered By: Lesvia Goldstein on 02-11-2023 Creatinine [Mass/Vol] 0.58 mg/dL 0.55-1.02 [facility] Comment on above: The validity of the calculated GFR & GFRAA in patients over 70 years has not been determined. Clinical correlation is essential. Serum or plasma urea nitroge n measurement (mass/volume)Ordered By: Lesvia Goldstein on 02-11-2023 Urea nitrogen [Mass/Vol] 23 mg/dL 7-18 [facility] Thin prep Papanicolaou smear with manual screeningOrdered By: Lesvia Goldstein on 02-11-2023 Thin prep Papanicolaou smear with manual screening 7 5-15 [facility] Absolute lymphocyte countOrd ered By: Dr. Peck on 01-04-2023 Lymphocytes Auto (Unsp spec) [#/Vol] 1.96 10*3/uL 0.83-4.51 [facility] Basophil percentageOrdered B y: Dr. Peck on 01-04-2023 Basophils/100 WBC (Bld) 0.9 % 0-1 [facility] Chloride [Moles/Vol] 104 mmol/L 98-107 [facility] Eosinophils/100 WBC (Bld) 5.0 % 0-5 [facility] Glucose [Mass/Vol] 103 mg/dL 74-106 [facility] Comment on above: Fasting Glucose resu lt from 100 to 125 mg/dL suggests IMPAIRED HOMEOSTASIS per A.D.A. criteria. LDH [Catalytic activity/Vol] 202 U/L 84-246 [facility] Neutrophils (Bld) [#/Vol] 4.1 10*3/uL 2.0-7.7 [facility] Neutrophils/100 WBC (Bld) 59.7 % 47-70 [facility] Potassium [Moles/Vol] 4.4 mmol/L 3.5-5.1 [facility] Sodium [Moles/Vol] 137 mmol/L 136-145 [facility] WBC (Bld) [#/Vol] 6.9 10*3/uL 4.4-11.0 [facility] Blood erythrocytes count (nu mber/volume)Ordered By: Dr. Peck on 01-04-2023 RBC (Bld) [#/Vol] 3.01 10*6/uL 4.2-5.4 [facility] Blood hemoglobin measurement (mass/volume)Ordered By: Dr. Peck on 01-04-2023 Hemoglobin (Bld) [Mass/Vol] 9.2 g/dL 12.0-15.0 [facility] Blood lymphocytes/100 leukoc ytesOrdered By: Dr. Peck on 01-04-2023 Lymphocytes/100 WBC (Bld) 28.6 % 19-41 [facility] Blood monocytes/100 leukocyt esOrdered By: Dr. Peck on 01-04-2023 Monocytes/100 WBC (Bld) 5.7 % 0-10 [facility] Blood platelet mean volumeOr dered By: Dr. Peck on 01-04-2023 Platelet mean volume (Bld) [Entitic vol] 9.3 fL 6.2-12.0 [facility] Determination of erythrocyte mean corpuscular volume (MCV)Ordered By: Dr. Peck on 01-04-2023 MCV (RBC) [Entitic vol] 95.3 fL 81-99 [facility] Hematocrit Auto (Bld) [Volum e fraction]Ordered By: Dr. Peck on 01-04-2023 Hematocrit (Bld) [Volume fraction] 28.7 % 37-47 [facility] Hemoglobin in reticulocytes (mass per reticulocyte)Ordered By: Dr. Peck on 01-04-2023 Hemoglobin (Reticulocytes) [Entitic mass] 32.6 pg 30-35 [facility] Iron measurement (mass/mass) Ordered By: Dr. Peck on 01-04-2023 Iron (Unsp spec) [Mass/Mass] 51 ug/dL 50-170 [facility] Laboratory - Chemistry and C hemistry - challengeOrdered By: Dr. Peck on 01-04-2023 CO2 [Moles/Vol] 26.0 mmol/L 21.0-32.0 [facility] Urea nitrogen/Creatinine [Mass ratio] 29.3 mg/mg 10-20 [facility] Laboratory - Hematology and Cell countsOrdered By: Dr. Peck on 01-04-2023 Erythrocyte distribution width (RBC) [Entitic vol] 52.8 fL 35.1-43.9 [facility] Erythrocyte distribution width (RBC) [Ratio] 15.2 % 11.6-14.6 [facility] Immature granulocytes/100 WBC (Bld) 0.100 % 0.0-0.9 [facility] Comment on above: IG% - Immature Granu locytes (promyelocytes, myelocytes and metamyelocytes) > 1% indicates that a LEFT SHIFT is Present. MCH (RBC) [Entitic mass] 30.6 pg 27.0-32.0 [facility] Nucleated RBC/100 WBC (Bld) [Ratio] 0 % 0-5 [facility] MCHC Auto (RBC) [Mass/Vol]Or dered By: Dr. Peck on 01-04-2023 MCHC (RBC) [Mass/Vol] 32.1 g/dL 32-36 [facility] No Panel InformationOrdered By: Dr. Peck on 01-04-2023 Estimated GFR (MDRD) Amer 95 mL/min >60 [facility] Comment on above: GFR Calc Estimated GFR (MDRD) Non-Af Amer 79 mL/min >60 [facility] Comment on above: Non- GFR Calc Haptoglobin 211 mg/dL 42-346 [facility] Comment on above: Performed at: [address], [place] [id number] Director: Pedro Lorenzo PhD, Phone: [phone] Immature Reticulocyte Fraction 10.40 % 3.00-15.90 [facility] Reticulocyte Count 2.64 % 0.5-1.5 [facility] Total Iron Binding Capacity 274 ug/dL 250-450 [facility] Vitamin D 25-Hydroxy 59.4 ng/mL [facility] Comment on above: Vitamin D 25(OH) Sta tus Range Deficiency <20 ng/mL (50nmol/L) Insufficiency 20 - 30 ng/mL (50 - 75 nmol/L) Sufficiency 30 - 100 ng/mL (75 - 250 nmol/L) Toxicity >100 ng/mL (>250 nmol/L) Platelets bldOrdered By: Dr. Peck on 01-04-2023 Platelets (Bld) [#/Vol] 485 10*3/uL 150-450 [facility] Serum or plasma calcium alexander urement (mass/volume)Ordered By: Dr. Peck on 01-04-2023 Calcium [Mass/Vol] 9.1 mg/dL 8.5-10.1 [facility] Serum or plasma creatinine m easurement (mass/volume)Ordered By: Dr. Peck on 01-04-2023 Creatinine [Mass/Vol] 0.75 mg/dL 0.55-1.02 [facility] Comment on above: The validity of the calculated GFR & GFRAA in patients over 70 years has not been determined. Clinical correlation is essential. Serum or plasma ferritin tariq surement (mass/volume)Ordered By: Dr. Peck on 01-04-2023 Ferritin [Mass/Vol] 109 ng/mL 8-252 [facility] Serum or plasma urea nitroge n measurement (mass/volume)Ordered By: Dr. Peck on 01-04-2023 Urea nitrogen [Mass/Vol] 22 mg/dL 7-18 [facility] Thin prep Papanicolaou smear with manual screeningOrdered By: Dr. Peck on 01-04-2023 Thin prep Papanicolaou smear with manual screening 7 5-15 [facility] ACTIVATED PTTon 12-09-2022 aPTT Coag (PPP) [Time] 29.7 s 23.0 - 32.4 sec [facility] Basic metabolic 2000 panelon 12-09-2022 Anion gap [Moles/Vol] 5 mmol/L 5 - 16 mmol/L [facility] Calcium [Mass/Vol] 9.5 mg/dL 8.5 - 10. 5 mg/dL [facility] Chloride [Moles/Vol] 95 mmol/L Low 98 - 10 7 mmol/L [facility] CO2 [Moles/Vol] 29 mmol/L 21 - 32 mmol/L [facility] Creatinine [Mass/Vol] 0.64 mg/dL 0.51 - 0.95 mg/dL [facility] Estimated Glomerular Filtration Rate 90 mL/min/1.73m >=60 mL/min/1.7 3m [facility] Glucose [Mass/Vol] 97 mg/dL 70 - 100 mg/dL [facility] Potassium [Moles/Vol] 5.0 mmol/L 3.5 - 5.1 mmol/L [facility] Sodium [Moles/Vol] 129 mmol/L Low 136 - 145 mmol/L [facility] Urea nitrogen [Mass/Vol] 22 mg/dL 7 - 26 mg/dL [facility] CBC W Auto Differential pane l (Bld)on 12-09-2022 Basophils (Bld) [#/Vol] 0.08 10*3/uL <0.11 k/uL [facility] Basophils/100 WBC (Bld) 0.7 % [facility] Differential cell count method Nom (Bld) Auto [facility] Eosinophils (Bld) [#/Vol] 0.22 10*3/uL <0.46 k/uL [facility] Eosinophils/100 WBC (Bld) 1.9 % [facility] Erythrocyte distribution width (RBC) [Ratio] 13.5 % 11.5 - 15.0 % [facility] Hematocrit (Bld) [Volume fraction] 28.6 % Low 36.0 - 46.0 % [facility] Hemoglobin (Bld) [Mass/Vol] 9.9 g/dL Low 11.5 - 15.5 g/dL [facility] Immature granulocytes (Bld) [#/Vol] 0.06 10*3/uL <0.10 k/uL [facility] Immature granulocytes/100 WBC (Bld) 0.5 % [facility] Lymphocytes (Bld) [#/Vol] 1.63 10*3/uL 1.00 - 4.00 k/uL [facility] Lymphocytes/100 WBC (Bld) 13.7 % [facility] MCH (RBC) [Entitic mass] 31.9 pg 26.0 - 34.0 pg [facility] MCHC (RBC) [Mass/Vol] 34.6 g/dL 30.5 - 36.0 g/dL [facility] MCV (RBC) [Entitic vol] 92.3 fL 80.0 - 100.0 fL [facility] Monocytes (Bld) [#/Vol] 0.83 10*3/uL <0.87 k/uL [facility] Monocytes/100 WBC (Bld) 7.0 % [facility] Neutrophils (Bld) [#/Vol] 9.04 10*3/uL High 1.45 - 7.50 k/uL [facility] Neutrophils/100 WBC (Bld) 76.2 % [facility] Nucleated RBC (Bld) [#/Vol] <0.01 k/uL [facility] Nucleated RBC/100 WBC (Bld) [Ratio] 0.0 /100 WBC [facility] Platelet mean volume (Bld) [Entitic vol] 8.6 fL Low 9.0 - 12.7 fL [facility] Platelets (Bld) [#/Vol] 633 10*3/uL High 150 - 400 k/uL [facility] RBC (Bld) [#/Vol] 3.10 10*6/uL Low 3.90 - 5.20 m/uL [facility] WBC (Bld) [#/Vol] 11.86 10*3/uL High 3.70 - 11.00 k/uL [facility] HbA1c (Bld)on 12-09-2022 Average glucose Estimated from glycated hemoglobin (Bld) [Mass/Vol] 123 mg/dL [facility] HbA1c (Bld) [Mass fraction] 5.9 % 4.3 - 6.0 % [facility] Laboratory - Microbiology an d Antimicrobial susceptibilityon 12-09-2022 S. aureus and MRSA panel NAYE+probe (Nose) Negative Negative [facility] PT panel Coag (PPP)on 2022 INR Coag (PPP) [Relative time] 1.0 {INR} 0.9 - 1.3 [facility] PT Coag (PPP) [Time] 10.1 s 9.7 - 1 3.0 sec [facility] Basophil percentageOrdered B y: Dr. Peck on 12-03-2022 Basophil percentage 5-10 SEEN /hpf 0-5 [facility] Bilirubin Test strip Ql (U)O rdered By: Dr. Peck on 12-03-2022 Bilirubin Ql (U) Negative Negative [facility] Iron measurement (mass/mass) Ordered By: Dr. Peck on 12-03-2022 Iron (Unsp spec) [Mass/Mass] 22 ug/dL 50-170 [facility] Ketones Test strip Ql (U)Ord ered By: Dr. Peck on 12-03-2022 Ketones Ql (U) Negative Negative [facility] Laboratory - Chemistry and C hemistry - challengeOrdered By: Dr. Peck on 12-03-2022 Cobalamin (Vitamin B12) [Mass/Vol] 1100 pg/mL 211-911 [facility] Transferrin [Mass/Vol] 195 mg/dL 192-364 [facility] Comment on above: Performed at: [address] Director: Pedro Lorenzo PhD, Phone: [phone] Mucus LM Ql (Urine sed)Order ed By: Dr. Peck on 12-03-2022 Mucus Ql (Urine sed) 0 SEEN /hpf [facility] Nitrite Test strip Ql (U)Ord ered By: Dr. Peck on 12-03-2022 Nitrite Ql (U) Negative Negative [facility] No Panel InformationOrdered By: Dr. Peck on 12-03-2022 Total Iron Binding Capacity 232 ug/dL 250-450 [facility] Protein Test strip Ql (U)Ord ered By: Dr. Peck on 12-03-2022 Protein Ql (U) 15 mg/dl Negative [facility] Serum or plasma ferritin tariq surement (mass/volume)Ordered By: Dr. Peck on 12-03-2022 Ferritin [Mass/Vol] 239 ng/mL 8-252 [facility] Squamous epithelial cells de tection in urine sediment by light microscopyOrdered By: Dr. Peck on 03-31-2023 Epithelial cells.squamous LM Ql (Urine sed) 0-5 SEEN /hpf 5-10 [facility] Urine blood detectionOrdered By: Dr. Peck on 12-03-2022 RBC Ql (U) 25 /ul Negative [facility] RBC Ql (U) 0-5 SEEN /hpf 0-5 [facility] Urine clarityOrdered By: Dr. Peck on 12-03-2022 Clarity (U) Clear Clear [facility] Urine color determinationOrd ered By: Dr. Peck on 12-03-2022 Color (U) Yellow Yellow [facility] Urine glucose detectionOrder ed By: Dr. Peck on 12-03-2022 Glucose Ql (U) Normal mg/dl Normal [facility] Urine leukocyte esterase det ection by dipstickOrdered By: Dr. Peck on 12-03-2022 Leukocyte esterase Test strip Ql (U) 100 /ul Negative [facility] Urine pHOrdered By: Dr. Scar porter on 12-03-2022 pH (U) 8.0 [pH] 5.0 - 8.0 [facility] Urine sediment bacteria coun t by microscopy (number/high power field)Ordered By: Dr. Peck on 12-03-2022 Bacteria LM.HPF (Urine sed) [#/Area] 1 /[HPF] None Seen [facility] Urine specific gravity measu rementOrdered By: Dr. Peck on 12-03-2022 Specific gravity (U) [Rel density] 1.015 1.002-1.03 0 [facility] Urobilinogen Auto test strip Ql (U)Ordered By: Dr. Peck on 12-03-2022 Urobilinogen Ql (U) Normal mg/dl Normal [facility] Absolute lymphocyte countOrd ered By: Dr. Peck on 12-01-2022 Lymphocytes Auto (Unsp spec) [#/Vol] 1.50 10*3/uL 0.83-4.51 [facility] Basophil percentageOrdered B y: Dr. Peck on 12-01-2022 Basophils/100 WBC (Bld) 0.5 % 0-1 [facility] Bilirubin [Mass/Vol] 0.20 mg/dL 0.20-1.00 [facility] Comment on above: For patients on eltr ombopag therapy, use of Dimension [place] TBIL is not recommended. Chloride [Moles/Vol] 99 mmol/L 98-107 [facility] Cholesterol [Mass/Vol] 139 mg/dL <200 [facility] Comment on above: <200 mg/dL Desirable 200-240 mg/dL Borderline >240 mg/dL High Risk Eosinophils/100 WBC (Bld) 5.7 % 0-5 [facility] Glucose [Mass/Vol] 91 mg/dL 74-106 [facility] Neutrophils (Bld) [#/Vol] 6.5 10*3/uL 2.0-7.7 [facility] Neutrophils/100 WBC (Bld) 69.2 % 47-70 [facility] Potassium [Moles/Vol] 4.5 mmol/L 3.5-5.1 [facility] Protein [Mass/Vol] 6.8 g/dL 6.4-8.2 [facility] Sodium [Moles/Vol] 133 mmol/L 136-145 [facility] Triglyceride [Mass/Vol] 69 mg/dL <199 [facility] Comment on above: The drugs N-Acetylcy steine and Metamizole may falsely depress this assay.Serum Triglycerides Reference Interval Normal <150 mg/dL Borderline high 150 - 199 mg/dL High 200 - 499 mg/dL Very High > or = 500 mg/dL WBC (Bld) [#/Vol] 9.5 10*3/uL 4.4-11.0 [facility] Blood erythrocytes count (nu mber/volume)Ordered By: Dr. Peck on 12-01-2022 RBC (Bld) [#/Vol] 2.95 10*6/uL 4.2-5.4 [facility] Blood hemoglobin measurement (mass/volume)Ordered By: Dr. Peck on 12-01-2022 Hemoglobin (Bld) [Mass/Vol] 9.5 g/dL 12.0-15.0 [facility] Blood lymphocytes/100 leukoc ytesOrdered By: Dr. Peck on 12-01-2022 Lymphocytes/100 WBC (Bld) 15.8 % 19-41 [facility] Blood monocytes/100 leukocyt esOrdered By: Dr. Peck on 12-01-2022 Monocytes/100 WBC (Bld) 8.3 % 0-10 [facility] Blood platelet mean volumeOr dered By: Dr. Peck on 12-01-2022 Platelet mean volume (Bld) [Entitic vol] 8.7 fL 6.2-12.0 [facility] Determination of erythrocyte mean corpuscular volume (MCV)Ordered By: Dr. Peck on 12-01-2022 MCV (RBC) [Entitic vol] 96.6 fL 81-99 [facility] Hematocrit Auto (Bld) [Volum e fraction]Ordered By: Dr. Peck on 12-01-2022 Hematocrit (Bld) [Volume fraction] 28.5 % 37-47 [facility] Laboratory - Chemistry and C hemistry - challengeOrdered By: Dr. Peck on 12-01-2022 ALP [Catalytic activity/Vol] 82 U/L 45-117 [facility] ALT [Catalytic activity/Vol] 23 U/L 13-56 [facility] CO2 [Moles/Vol] 26.0 mmol/L 21.0-32.0 [facility] Globulin (S) [Mass/Vol] 3.9 g/dL 2.2-4.2 [facility] Urea nitrogen/Creatinine [Mass ratio] 36.2 mg/mg 10-20 [facility] Laboratory - Hematology and Cell countsOrdered By: Dr. Peck on 12-01-2022 Erythrocyte distribution width (RBC) [Entitic vol] 48.2 fL 35.1-43.9 [facility] Erythrocyte distribution width (RBC) [Ratio] 13.4 % 11.6-14.6 [facility] Immature granulocytes/100 WBC (Bld) 0.500 % 0.0-0.9 [facility] Comment on above: IG% - Immature Granu locytes (promyelocytes, myelocytes and metamyelocytes) > 1% indicates that a LEFT SHIFT is Present. MCH (RBC) [Entitic mass] 32.2 pg 27.0-32.0 [facility] Nucleated RBC/100 WBC (Bld) [Ratio] 0 % 0-5 [facility] MCHC Auto (RBC) [Mass/Vol]Or dered By: Dr. Peck on 12-01-2022 MCHC (RBC) [Mass/Vol] 33.3 g/dL 32-36 [facility] No Panel InformationOrdered By: Dr. Peck on 12-01-2022 Estimated GFR (MDRD) Amer 116 mL/min >60 [facility] Comment on above: GFR Calc Estimated GFR (MDRD) Non-Af Amer 96 mL/min >60 [facility] Comment on above: Non- GFR Calc Thyroid Stimulating Hormone (TSH) 0.95 uIU/mL 0.358-3.74 [facility] Vitamin D 25-Hydroxy 43.4 ng/mL [facility] Comment on above: Vitamin D 25(OH) Sta tus Range Deficiency <20 ng/mL (50nmol/L) Insufficiency 20 - 30 ng/mL (50 - 75 nmol/L) Sufficiency 30 - 100 ng/mL (75 - 250 nmol/L) Toxicity >100 ng/mL (>250 nmol/L) Platelets bldOrdered By: Dr. Peck on 12-01-2022 Platelets (Bld) [#/Vol] 604 10*3/uL 150-450 [facility] Serum or plasma albumin alexander urement (mass/volume)Ordered By: Dr. Peck on 12-01-2022 Albumin [Mass/Vol] 2.9 g/dL 3.2-5.0 [facility] Serum or plasma albumin/glob ulin mass ratioOrdered By: Dr. Peck on 12-01-2022 Albumin/Globulin [Mass ratio] 0.7 {ratio} 0.9-2.4 [facility] Serum or plasma calcium alexander urement (mass/volume)Ordered By: Dr. Peck on 12-01-2022 Calcium [Mass/Vol] 9.1 mg/dL 8.5-10.1 [facility] Serum or plasma cholesterol in HDL measurement (mass/volume)Ordered By: Dr. Peck on 12-01-2022 Cholesterol in HDL [Mass/Vol] 72 mg/dL >40 [facility] Comment on above: The drugs N-Acetylcy steine and Metamizole may falsely depress this assay. Reference Range HDL <40 mg/dL Low HDL Cholesterol HDL >or= 60 mg/dL High HDL Cholesterol Serum or plasma cholesterol in VLDL measurement (mass/volume)Ordered By: Dr. Peck on 12-01-2022 Cholesterol in VLDL [Mass/Vol] 14 mg/dL 5-40 [facility] Serum or plasma creatinine m easurement (mass/volume)Ordered By: Dr. Peck on 12-01-2022 Creatinine [Mass/Vol] 0.64 mg/dL 0.55-1.02 [facility] Comment on above: The validity of the calculated GFR & GFRAA in patients over 70 years has not been determined. Clinical correlation is essential. Serum or plasma low density lipoprotein (LDL) cholesterol measurement (mass/volume)Ordered By: Dr. Peck on 12-01-2022 Cholesterol in LDL [Mass/Vol] 53 mg/dL 0-130 [facility] Serum or plasma urea nitroge n measurement (mass/volume)Ordered By: Dr. Peck on 12-01-2022 Urea nitrogen [Mass/Vol] 23 mg/dL 7-18 [facility] Serum or plasma uric acid me asurement (mass/volume)Ordered By: Dr. Peck on 12-01-2022 Urate [Mass/Vol] 5.1 mg/dL 2.6-6.0 [facility] Comment on above: The drugs N-Acetylcy steine and Metamizole may falsely depress this assay. Thin prep Papanicolaou smear with manual screeningOrdered By: Dr. Peck on 12-01-2022 Thin prep Papanicolaou smear with manual screening 17 U/L 15-37 [facility] Thin prep Papanicolaou smear with manual screening 8 5-15 [facility] Basophil percentageOrdered B y: Dr. Gomez on 10-01-2022 Chloride [Moles/Vol] 102 mmol/L 98-107 [facility] Glucose [Mass/Vol] 109 mg/dL 74-106 [facility] Comment on above: Fasting Glucose resu lt from 100 to 125 mg/dL suggests IMPAIRED HOMEOSTASIS per A.D.A. criteria. Potassium [Moles/Vol] 4.1 mmol/L 3.5-5.1 [facility] Sodium [Moles/Vol] 134 mmol/L 136-145 [facility] WBC (Bld) [#/Vol] 10.5 10*3/uL 4.4-11.0 [facility] Blood erythrocytes count (nu mber/volume)Ordered By: Dr. Gomez on 10-01-2022 RBC (Bld) [#/Vol] 3.04 10*6/uL 4.2-5.4 [facility] Blood hemoglobin measurement (mass/volume)Ordered By: Dr. Gomez on 10-01-2022 Hemoglobin (Bld) [Mass/Vol] 10.1 g/dL 12.0-15.0 [facility] Blood platelet mean volumeOr dered By: Dr. Gomez on 10-01-2022 Platelet mean volume (Bld) [Entitic vol] 9.5 fL 6.2-12.0 [facility] Determination of erythrocyte mean corpuscular volume (MCV)Ordered By: Dr. Gomez on 10-01-2022 MCV (RBC) [Entitic vol] 98.0 fL 81-99 [facility] Hematocrit Auto (Bld) [Volum e fraction]Ordered By: Dr. Gomez on 10-01-2022 Hematocrit (Bld) [Volume fraction] 29.8 % 37-47 [facility] Laboratory - Chemistry and C hemistry - challengeOrdered By: Dr. Gomez on 10-01-2022 CO2 [Moles/Vol] 27.0 mmol/L 21.0-32.0 [facility] Urea nitrogen/Creatinine [Mass ratio] 21.6 mg/mg 10-20 [facility] Laboratory - Hematology and Cell countsOrdered By: Dr. Gomez on 10-01-2022 Erythrocyte distribution width (RBC) [Entitic vol] 51.0 fL 35.1-43.9 [facility] Erythrocyte distribution width (RBC) [Ratio] 14.1 % 11.6-14.6 [facility] MCH (RBC) [Entitic mass] 33.2 pg 27.0-32.0 [facility] MCHC Auto (RBC) [Mass/Vol]Or dered By: Dr. Gomez on 10-01-2022 MCHC (RBC) [Mass/Vol] 33.9 g/dL 32-36 [facility] No Panel InformationOrdered By: Dr. Gomez on 10-01-2022 Estimated Creatinine Clearance Calc 37.74 ml/min [facility] Estimated GFR (MDRD) Amer 149 mL/min >60 [facility] Comment on above: GFR Calc Estimated GFR (MDRD) Non-Af Amer 123 mL/min >60 [facility] Comment on above: Non- GFR Calc Platelets bldOrdered By: Dr. Gomez on 10-01-2022 Platelets (Bld) [#/Vol] 274 10*3/uL 150-450 [facility] Serum or plasma calcium alexander urement (mass/volume)Ordered By: Dr. Gomez on 10-01-2022 Calcium [Mass/Vol] 8.3 mg/dL 8.5-10.1 [facility] Serum or plasma creatinine m easurement (mass/volume)Ordered By: Dr. Gomez on 10-01-2022 Creatinine [Mass/Vol] 0.51 mg/dL 0.55-1.02 [facility] Comment on above: The validity of the calculated GFR & GFRAA in patients over 70 years has not been determined. Clinical correlation is essential. Serum or plasma urea nitroge n measurement (mass/volume)Ordered By: Dr. Gomez on 10-01-2022 Urea nitrogen [Mass/Vol] 11 mg/dL 7-18 [facility] Thin prep Papanicolaou smear with manual screeningOrdered By: Dr. Gomez on 10-01-2022 Thin prep Papanicolaou smear with manual screening 5 5-15 [facility] Glucose Glucometer (BldC) [M ass/Vol]Ordered By: Dr. Gomez on 09-30-2022 Glucose [Mass/Vol] 86 mg/dL 74-106 [facility] Comment on above: MANAGEMENT OF PATIEN T CARE PER NURSING PROTOCOL Laboratory - Chemistry and C hemistry - challengeOrdered By: Dr. Atkinson on 09-22-2022 Magnesium [Mass/Vol] 2.2 mg/dL 1.6-2.6 [facility] Basophil percentageOrdered B y: Dr. Peck on 09-13-2022 Chloride [Moles/Vol] 98 mmol/L 98-107 [facility] Glucose [Mass/Vol] 97 mg/dL 74-106 [facility] Potassium [Moles/Vol] 4.6 mmol/L 3.5-5.1 [facility] Sodium [Moles/Vol] 133 mmol/L 136-145 [facility] Laboratory - Chemistry and C hemistry - challengeOrdered By: Dr. Peck on 09-13-2022 CO2 [Moles/Vol] 28.0 mmol/L 21.0-32.0 [facility] Urea nitrogen/Creatinine [Mass ratio] 24.1 mg/mg 10-20 [facility] No Panel InformationOrdered By: Dr. Peck on 09-13-2022 Estimated GFR (MDRD) Amer 119 mL/min >60 [facility] Comment on above: GFR Calc Estimated GFR (MDRD) Non-Af Amer 98 mL/min >60 [facility] [facility] Comment on above: Non- GFR Calc Serum or plasma calcium alexander urement (mass/volume)Ordered By: Dr. Peck on 09-13-2022 Calcium [Mass/Vol] 9.4 mg/dL 8.5-10.1 [facility] Serum or plasma creatinine m easurement (mass/volume)Ordered By: Dr. Peck on 09-13-2022 Creatinine [Mass/Vol] 0.62 mg/dL 0.55-1.02 [facility] Comment on above: The validity of the calculated GFR & GFRAA in patients over 70 years has not been determined. Clinical correlation is essential. Serum or plasma urea nitroge n measurement (mass/volume)Ordered By: Dr. Peck on 09-13-2022 Urea nitrogen [Mass/Vol] 15 mg/dL 7-18 [facility] Thin prep Papanicolaou smear with manual screeningOrdered By: Dr. Peck on 09-13-2022 Thin prep Papanicolaou smear with manual screening 7 5-15 [facility] No Panel InformationOrdered By: Dr. Gomez on 09-09-2022 Nasal Screen MRSA/MSSA [facility] Absolute lymphocyte countOrd ered By: Dr. Gomez on 09-07-2022 Lymphocytes Auto (Unsp spec) [#/Vol] 1.75 10*3/uL 0.83-4.51 [facility] Basophil percentageOrdered B y: Dr. Gomez on 09-07-2022 Basophils/100 WBC (Bld) 0.8 % 0-1 [facility] Eosinophils/100 WBC (Bld) 4.1 % 0-5 [facility] Neutrophils (Bld) [#/Vol] 3.8 10*3/uL 2.0-7.7 [facility] Neutrophils/100 WBC (Bld) 58.7 % 47-70 [facility] Blood lymphocytes/100 leukoc ytesOrdered By: Dr. Gomez on 09-07-2022 Lymphocytes/100 WBC (Bld) 27.4 % 19-41 [facility] Blood monocytes/100 leukocyt esOrdered By: Dr. Gomez on 09-07-2022 Monocytes/100 WBC (Bld) 8.8 % 0-10 [facility] Laboratory - Hematology and Cell countsOrdered By: Dr. Gomez on 09-07-2022 Immature granulocytes/100 WBC (Bld) 0.200 % 0.0-0.9 [facility] Comment on above: IG% - Immature Granu locytes (promyelocytes, myelocytes and metamyelocytes) > 1% indicates that a LEFT SHIFT is Present. Nucleated RBC/100 WBC (Bld) [Ratio] 0 % 0-5 [facility] Whole blood hemoglobin A1c/t otal hemoglobin ratio (mass fraction)Ordered By: Dr. Gomez on 09-07-2022 HbA1c (Bld) [Mass fraction] 5.6 % 3.8-5.6 [facility] Comment on above: Normal < 5.7 % Predi abetic 5.7 - 6.4 % Diabetic >or= 6.5 % Please note range changes. Basophil percentageOrdered B y: Dr. Peck on 06-25-2022 Chloride [Moles/Vol] 96 mmol/L 98-107 [facility] Glucose [Mass/Vol] 94 mg/dL 74-106 [facility] Potassium [Moles/Vol] 4.1 mmol/L 3.5-5.1 [facility] Sodium [Moles/Vol] 130 mmol/L 136-145 [facility] Laboratory - Chemistry and C hemistry - challengeOrdered By: Dr. Peck on 06-25-2022 CO2 [Moles/Vol] 27.0 mmol/L 21.0-32.0 [facility] Urea nitrogen/Creatinine [Mass ratio] 24.7 mg/mg 10- [facility] No Panel InformationOrdered By: Dr. Peck on 06-25-2022 Estimated GFR (MDRD) Amer 106 mL/min >60 [facility] Comment on above: GFR Calc Estimated GFR (MDRD) Non-Af Amer 87 mL/min >60 [facility] Comment on above: Non- GFR Calc Serum or plasma calcium alexander urement (mass/volume)Ordered By: Dr. Peck on 06-25-2022 Calcium [Mass/Vol] 9.0 mg/dL 8.5-10.1 [facility] Serum or plasma creatinine m easurement (mass/volume)Ordered By: Dr. Peck on 06-25-2022 Creatinine [Mass/Vol] 0.69 mg/dL 0.55-1.02 [facility] Comment on above: The validity of the calculated GFR & GFRAA in patients over 70 years has not been determined. Clinical correlation is essential. Serum or plasma urea nitroge n measurement (mass/volume)Ordered By: Dr. Peck on 06-25-2022 Urea nitrogen [Mass/Vol] 17 mg/dL -18 [facility] Thin prep Papanicolaou smear with manual screeningOrdered By: Dr. Peck on 06-25-2022 Thin prep Papanicolaou smear with manual screening 7 5-15 [facility] Culture, urineOrdered By: Dr Angie Peck on 06-17-2022 Bacteria identified Cx Nom (U) Positive [facility] Cytology report of Body flui d Cyto stainOrdered By: Dr. Peck on 06-16-2022 Cytology report Cyto stain Doc (Body fld) SEE PATHOLOGY REPORT [facility] Comment on above: Specimen submitted t o Anatomical Pathology Department for testing. Absolute lymphocyte countOrd ered By: Dr. Peck on 06-09-2022 Lymphocytes Auto (Unsp spec) [#/Vol] 1.48 10*3/uL 0.83-4.51 [facility] Basophil percentageOrdered B y: Dr. Peck on 06-09-2022 Basophil percentage 5-10 SEEN /hpf 0-5 [facility] Basophils/100 WBC (Bld) 0.5 % 0-1 [facility] Bilirubin [Mass/Vol] 0.70 mg/dL 0.20-1.00 [facility] Comment on above: For patients on eltr ombopag therapy, use of Dimension [place] TBIL is not recommended. Chloride [Moles/Vol] 100 mmol/L 98-107 [facility] Cholesterol [Mass/Vol] 212 mg/dL <200 [facility] Comment on above: <200 mg/dL Desirable 200-240 mg/dL Borderline >240 mg/dL High Risk Eosinophils/100 WBC (Bld) 2.1 % 0-5 [facility] Glucose [Mass/Vol] 94 mg/dL 74-106 [facility] Neutrophils (Bld) [#/Vol] 4.0 10*3/uL 2.0-7.7 [facility] Neutrophils/100 WBC (Bld) 64.9 % 47-70 [facility] Potassium [Moles/Vol] 4.7 mmol/L 3.5-5.1 [facility] Comment on above: Slight Hemolysis, Re sult may be falsely increased. Protein [Mass/Vol] 6.9 g/dL 6.4-8.2 [facility] Sodium [Moles/Vol] 132 mmol/L 136-145 [facility] Triglyceride [Mass/Vol] 52 mg/dL <199 [facility] Comment on above: The drugs N-Acetylcy steine and Metamizole may falsely depress this assay.Serum Triglycerides Reference Interval Normal <150 mg/dL Borderline high 150 - 199 mg/dL High 200 - 499 mg/dL Very High > or = 500 mg/dL WBC (Bld) [#/Vol] 6.1 10*3/uL 4.4-11.0 [facility] Bilirubin Test strip Ql (U)O rdered By: Dr. Peck on 06-09-2022 Bilirubin Ql (U) Negative Negative [facility] Blood erythrocytes count (nu mber/volume)Ordered By: Dr. Peck on 06-09-2022 RBC (Bld) [#/Vol] 3.71 10*6/uL 4.2-5.4 [facility] Blood hemoglobin measurement (mass/volume)Ordered By: Dr. Peck on 06-09-2022 Hemoglobin (Bld) [Mass/Vol] 12.4 g/dL 12.0-15.0 [facility] Blood lymphocytes/100 leukoc ytesOrdered By: Dr. Peck on 06-09-2022 Lymphocytes/100 WBC (Bld) 24.3 % 19-41 [facility] Blood monocytes/100 leukocyt esOrdered By: Dr. Peck on 06-09-2022 Monocytes/100 WBC (Bld) 8.0 % 0-10 [facility] Blood platelet mean volumeOr dered By: Dr. Peck on 06-09-2022 Platelet mean volume (Bld) [Entitic vol] 10.2 fL 6.2-12.0 [facility] Determination of erythrocyte mean corpuscular volume (MCV)Ordered By: Dr. Peck on 06-09-2022 MCV (RBC) [Entitic vol] 93.0 fL 81-99 [facility] Hematocrit Auto (Bld) [Volum e fraction]Ordered By: Dr. Peck on 06-09-2022 Hematocrit (Bld) [Volume fraction] 34.5 % 37-47 [facility] Ketones Test strip Ql (U)Ord ered By: Dr. Peck on 06-09-2022 Ketones Ql (U) Negative Negative [facility] Laboratory - Chemistry and C hemistry - challengeOrdered By: Dr. Peck on 06-09-2022 ALP [Catalytic activity/Vol] 32 U/L 45-117 [facility] ALT [Catalytic activity/Vol] 24 U/L 13-56 [facility] CO2 [Moles/Vol] 24.0 mmol/L 21.0-32.0 [facility] Globulin (S) [Mass/Vol] 3.2 g/dL 2.2-4.2 [facility] Urea nitrogen/Creatinine [Mass ratio] 26.4 mg/mg 10-20 [facility] Laboratory - Hematology and Cell countsOrdered By: Dr. Peck on 06-09-2022 Erythrocyte distribution width (RBC) [Entitic vol] 44.8 fL 35.1-43.9 [facility] Erythrocyte distribution width (RBC) [Ratio] 13.1 % 11.6-14.6 [facility] Immature granulocytes/100 WBC (Bld) 0.200 % 0.0-0.9 [facility] Comment on above: IG% - Immature Granu locytes (promyelocytes, myelocytes and metamyelocytes) > 1% indicates that a LEFT SHIFT is Present. MCH (RBC) [Entitic mass] 33.4 pg 27.0-32.0 [facility] Nucleated RBC/100 WBC (Bld) [Ratio] 0 % 0-5 [facility] MCHC Auto (RBC) [Mass/Vol]Or dered By: Dr. Peck on 06-09-2022 MCHC (RBC) [Mass/Vol] 35.9 g/dL 32-36 [facility] Mucus LM Ql (Urine sed)Order ed By: Dr. Peck on 06-09-2022 Mucus Ql (Urine sed) 0 SEEN /hpf [facility] Nitrite Test strip Ql (U)Ord ered By: Dr. Peck on 06-09-2022 Nitrite Ql (U) Negative Negative [facility] No Panel InformationOrdered By: Dr. Peck on 06-09-2022 Estimated GFR (MDRD) Amer 94 mL/min >60 [facility] Comment on above: GFR Calc Estimated GFR (MDRD) Non-Af Amer 78 mL/min >60 [facility] Comment on above: Non- GFR Calc Thyroid Stimulating Hormone (TSH) 0.95 uIU/mL 0.358-3.74 [facility] Platelets bldOrdered By: Dr. Peck on 06-09-2022 Platelets (Bld) [#/Vol] 283 10*3/uL 150-450 [facility] Protein Test strip Ql (U)Ord ered By: Dr. Peck on 06-09-2022 Protein Ql (U) Negative Negative [facility] Serum or plasma albumin alexander urement (mass/volume)Ordered By: Dr. Peck on 06-09-2022 Albumin [Mass/Vol] 3.7 g/dL 3.2-5.0 [facility] Serum or plasma albumin/glob ulin mass ratioOrdered By: Dr. Peck on 06-09-2022 Albumin/Globulin [Mass ratio] 1.2 {ratio} 0.9-2.4 [facility] Serum or plasma calcium alexander urement (mass/volume)Ordered By: Dr. Peck on 06-09-2022 Calcium [Mass/Vol] 9.3 mg/dL 8.5-10.1 [facility] Serum or plasma cholesterol in HDL measurement (mass/volume)Ordered By: Dr. Peck on 06-09-2022 Cholesterol in HDL [Mass/Vol] 119 mg/dL >40 [facility] Comment on above: The drugs N-Acetylcy steine and Metamizole may falsely depress this assay. Reference Range HDL <40 mg/dL Low HDL Cholesterol HDL >or= 60 mg/dL High HDL Cholesterol Serum or plasma cholesterol in VLDL measurement (mass/volume)Ordered By: Dr. Peck on 06-09-2022 Cholesterol in VLDL [Mass/Vol] 10 mg/dL 5-40 [facility] Serum or plasma creatinine m easurement (mass/volume)Ordered By: Dr. Peck on 06-09-2022 Creatinine [Mass/Vol] 0.76 mg/dL 0.55-1.02 [facility] Comment on above: The validity of the calculated GFR & GFRAA in patients over 70 years has not been determined. Clinical correlation is essential. Serum or plasma low density lipoprotein (LDL) cholesterol measurement (mass/volume)Ordered By: Dr. Peck on 06-09-2022 Cholesterol in LDL [Mass/Vol] 83 mg/dL 0-130 [facility] Serum or plasma urea nitroge n measurement (mass/volume)Ordered By: Dr. Peck on 06-09-2022 Urea nitrogen [Mass/Vol] 20 mg/dL 7-18 [facility] Serum or plasma uric acid me asurement (mass/volume)Ordered By: Dr. Peck on 06-09-2022 Urate [Mass/Vol] 4.6 mg/dL 2.6-6.0 [facility] Comment on above: The drugs N-Acetylcy steine and Metamizole may falsely depress this assay. Squamous epithelial cells de tection in urine sediment by light microscopyOrdered By: Dr. Peck on 06-09-2022 Epithelial cells.squamous LM Ql (Urine sed) 0-5 SEEN /hpf 5-10 [facility] Thin prep Papanicolaou smear with manual screeningOrdered By: Dr. Peck on 06-09-2022 Thin prep Papanicolaou smear with manual screening 19 U/L 15-37 [facility] Comment on above: Slight Hemolysis, Re sult may be falsely increased. Thin prep Papanicolaou smear with manual screening 8 5-15 [facility] Urine blood detectionOrdered By: Dr. Peck on 06-09-2022 RBC Ql (U) 10 /ul Negative [facility] RBC Ql (U) 5-10 SEEN /hpf 0-5 [facility] Urine clarityOrdered By: Dr. Peck on 06-09-2022 Clarity (U) Clear Clear [facility] Urine color determinationOrd ered By: Dr. Peck on 06-09-2022 Color (U) Straw Yellow [facility] Urine glucose detectionOrder ed By: Dr. Peck on 06-09-2022 Glucose Ql (U) Normal mg/dl Normal [facility] Urine leukocyte esterase det ection by dipstickOrdered By: Dr. Peck on 06-09-2022 Leukocyte esterase Test strip Ql (U) 500 /ul Negative [facility] Urine pHOrdered By: Dr. Scar porter on 06-09-2022 pH (U) 8.0 [pH] 5.0 - 8.0 [facility] Urine sediment bacteria coun t by microscopy (number/high power field)Ordered By: Dr. Peck on 06-09-2022 Bacteria LM.HPF (Urine sed) [#/Area] 1 /[HPF] None Seen [facility] Urine specific gravity measu rementOrdered By: Dr. Peck on 06-09-2022 Specific gravity (U) [Rel density] 1.010 1.002-1.03 0 [facility] Urobilinogen Auto test strip Ql (U)Ordered By: Dr. Peck on 06-09-2022 Urobilinogen Ql (U) Normal mg/dl Normal [facility] Absolute lymphocyte counton 05-19-2022 Lymphocytes Auto (Unsp spec) [#/Vol] 2.19 10*3/uL 0.83-4.51 [facility] Work Phone: Basophil percentageon 2021 Basophils/100 WBC (Bld) 0.6 % 0-1 [facility] Work Phone: Chloride [Moles/Vol] 93 mmol/L 98-107 [facility] Work Phone: Eosinophils/100 WBC (Bld) 1.7 % 0-5 [facility] Work Phone: Glucose [Mass/Vol] 100 mg/dL 74-106 [facility] Work Phone: Comment on above: Fasting Glucose resu lt from 100 to 125 mg/dL suggests IMPAIRED HOMEOSTASIS per A.D.A. criteria. Neutrophils (Bld) [#/Vol] 4.1 10*3/uL 2.0-7.7 [facility] Work Phone: [phone] Neutrophils/100 WBC (Bld) 57.3 % 47-70 [facility] Work Phone: Potassium [Moles/Vol] 4.3 mmol/L 3.5-5.1 [facility] Work Phone: Sodium [Moles/Vol] 128 mmol/L 136-145 [facility] Work Phone: WBC (Bld) [#/Vol] 7.2 10*3/uL 4.4-11.0 [facility] Work Phone: [phone] Blood erythrocytes count (nu mber/volume)on 05-19-2022 RBC (Bld) [#/Vol] 3.82 10*6/uL 4.2-5.4 [facility] Work Phone: Blood hemoglobin measurement (mass/volume)on 05-19-2022 Hemoglobin (Bld) [Mass/Vol] 13.0 g/dL 12.0-15.0 [facility] Work Phone: [phone] Blood lymphocytes/100 leukoc yteson 05-19-2022 Lymphocytes/100 WBC (Bld) 30.5 % 19-41 [facility] Work Phone: Blood monocytes/100 leukocyt eson 05-19-2022 Monocytes/100 WBC (Bld) 9.6 % 0-10 [facility] Work Phone: Blood platelet mean volumeon 05-19-2022 Platelet mean volume (Bld) [Entitic vol] 9.6 fL 6.2-12.0 [facility] Work Phone: Determination of erythrocyte mean corpuscular volume (MCV)on 05-19-2022 MCV (RBC) [Entitic vol] 97.6 fL 81-99 [facility] Work Phone: Hematocrit Auto (Bld) [Volum e fraction]on 05-19-2022 Hematocrit (Bld) [Volume fraction] 37.3 % 37-47 [facility] Work Phone: Laboratory - Chemistry and C hemistry - challengeon 05-19-2022 CO2 [Moles/Vol] 26.0 mmol/L 21.0-32.0 [facility] Work Phone: Urea nitrogen/Creatinine [Mass ratio] 25.5 mg/mg 10-20 [facility] Work Phone: Laboratory - Hematology and Cell countson 05-19-2022 Erythrocyte distribution width (RBC) [Entitic vol] 47.9 fL 35.1-43.9 [facility] Work Phone: Erythrocyte distribution width (RBC) [Ratio] 13.4 % 11.6-14.6 [facility] Work Phone: Immature granulocytes/100 WBC (Bld) 0.300 % 0.0-0.9 [facility] Work Phone: Comment on above: IG% - Immature Granu locytes (promyelocytes, myelocytes and metamyelocytes) > 1% indicates that a LEFT SHIFT is Present. MCH (RBC) [Entitic mass] 34.0 pg 27.0-32.0 [facility] Work Phone: Nucleated RBC/100 WBC (Bld) [Ratio] 0 % 0-5 [facility] Work Phone: MCHC Auto (RBC) [Mass/Vol]on 05-19-2022 MCHC (RBC) [Mass/Vol] 34.9 g/dL 32-36 [facility] Work Phone: No Panel Informationon 05-19 Troponin I High Sensitivity 8 pg/mL 3.0-54.0 [facility] Work Phone: Comment on above: Please Note: New Melissa t Units and Gender Specific Reference Ranges. For more information see Policy Stat Procedure [place] High Sensitivity Troponin (TNIH) and attachments. Estimated Creatinine Clearance Calc 39.39 ml/min [facility] Work Phone: Estimated GFR (MDRD) Amer 103 mL/min >60 [facility] Work Phone: Comment on above: GFR Calc Estimated GFR (MDRD) Non-Af Amer 85 mL/min >60 [facility] Work Phone: Comment on above: Non- GFR Calc Platelets bldon 05-19-2022 Platelets (Bld) [#/Vol] 327 10*3/uL 150-450 [facility] Work Phone: Serum or plasma calcium alexander urement (mass/volume)on 05-19-2022 Calcium [Mass/Vol] 9.3 mg/dL 8.5-10.1 [facility] Work Phone: Serum or plasma creatinine m easurement (mass/volume)on 05-19-2022 Creatinine [Mass/Vol] 0.71 mg/dL 0.55-1.02 [facility] Work Phone: Comment on above: The validity of the calculated GFR & GFRAA in patients over 70 years has not been determined. Clinical correlation is essential. Serum or plasma urea nitroge n measurement (mass/volume)on 05-19-2022 Urea nitrogen [Mass/Vol] 18 mg/dL 7-18 [facility] Work Phone: Thin prep Papanicolaou smear with manual screeningon 05-19-2022 Thin prep Papanicolaou smear with manual screening 9 5-15 [facility] Work Phone: * Body fluid crystals type b y light microscopyon 01-27-2022 Crystals LM Nom (Body fld) SEE PATH REV [facility] Work Phone: Blood lymphocytes/100 leukoc yteson 01-27-2022 Lymphocytes/100 WBC (Bld) 2 % [facility] Work Phone: Color of Synovial fluidon Color (Syn fld) Yellow Pale Yellow [facility] Work Phone: Cytology report of Body flui d Cyto stainon 01-27-2022 Cytology report Cyto stain Doc (Body fld) SEE PATHOLOGY REPORT [facility] Work Phone: Comment on above: Specimen submitted t o Anatomical Pathology Department for testing. Determination of appearance of synovial fluidon 01-27-2022 Appearance (Syn fld) Cloudy CLEAR [facility] Work Phone: No Panel Informationon 01-27 Synovial Fluid Total Cells Counted 28.1300 10^3/uL 0.000-0.00 0 [facility] Work Phone: Comment on above: This is the Total Nu mber of Nucleated Cell Types in the Body Fluid. Qualitative synovial fluid v iscosityon 01-27-2022 Viscosity Ql (Syn fld) Mod. Viscous HIGH [facility] Work Phone: Review by pathologiston 05- Pathologist review Oscar (Unsp spec) [Interp] May follow [facility] Work Phone: Pathologist review Oscar (Unsp spec) [Interp] Reviewed [facility] Work Phone: Comment on above: Negative for maligna nt cells and crystals.Acute inflammation.Saleem Kay M.D. 01/28/22 Specimen source identificati on of body fluidon 01-27-2022 Specimen source Nom (Body fld) SYNOVIAL [facility] Work Phone: Specimen source Nom (Body fld) RIGHT ANKLE/FOOT [facility] Work Phone: Synovial fluid erythrocytes count (number/volume)on 01-27-2022 RBC (Syn fld) [#/Vol] 0.020 10^6/uL 0-0 [facility] Work Phone: Synovial fluid leukocytes co unt (number/volume)on 01-27-2022 WBC (Syn fld) [#/Vol] 22.0850 10^3/uL 0.0 00-0.00 2 [facility] Work Phone: Synovial fluid monocyte perc entageon 01-27-2022 Monocytes/100 WBC (Syn fld) 4 % [facility] Work Phone: Synovial fluid neutrophil pe rcentageon 01-27-2022 Neutrophils/100 WBC (Syn fld) 94 % 0-25 [facility] Work Phone: Basophil percentageon 2021 Chloride [Moles/Vol] 100 mmol[facility]L 98-107 [facility]: Glucose [Mass/Vol] 94 mg/dL 74-106 [facility] Work Phone: Potassium [Moles/Vol] 4.3 mmol/L 3.5-5.1 [facility] Work Phone: Sodium [Moles/Vol] 135 mmol/L 136-145 [facility] Work Phone: Laboratory - Chemistry and C hemistry - challengeon 01-19-2022 CO2 [Moles/Vol] 26.0 mmol/L 21.0-32.0 [facility] Work Phone: Urea nitrogen/Creatinine [Mass ratio] 32.0 mg/mg 10-20 [facility] Work Phone: No Panel Informationon 01-19 Estimated GFR (MDRD) Amer 106 mL/min >60 [facility] Work Phone: Comment on above: GFR Calc Estimated GFR (MDRD) Non-Af Amer 88 mL/min >60 [facility] Work Phone: Comment on above: Non- GFR Calc Serum or plasma calcium alexander urement (mass/volume)on 01-19-2022 Calcium [Mass/Vol] 9.5 mg/dL 8.5-10.1 [facility] Work Phone: Serum or plasma creatinine m easurement (mass/volume)on 01-19-2022 Creatinine [Mass/Vol] 0.69 mg/dL 0.55-1.02 [facility] Work Phone: Comment on above: The validity of the calculated GFR & GFRAA in patients over 70 years has not been determined. Clinical correlation is essential. Serum or plasma urea nitroge n measurement (mass/volume)on 01-19-2022 Urea nitrogen [Mass/Vol] 22 mg/dL 7-18 [facility] Work Phone: Thin prep Papanicolaou smear with manual screeningon 01-19-2022 Thin prep Papanicolaou smear with manual screening 9 5-15 [facility] Work Phone: Basophil percentageon 2021 Chloride [Moles/Vol] 94 mmol/L 98-107 [facility] Work Phone: Glucose [Mass/Vol] 97 mg/dL 74-106 [facility] Work Phone: Potassium [Moles/Vol] 4.5 mmol/L 3.5-5.1 [facility] Work Phone: Sodium [Moles/Vol] 129 mmol/L 136-145 [facility] Work Phone: Laboratory - Chemistry and C hemistry - challengeon 12-30-2021 CO2 [Moles/Vol] 28.0 mmol/L 21.0-32.0 [facility] Work Phone: Sodium (U) [Moles/Vol] 83 mmol/L Not Establ. [facility] Work Phone: Urea nitrogen/Creatinine [Mass ratio] 23.3 mg/mg 10-20 [facility] Work Phone: No Panel Informationon 12-30 Estimated GFR (MDRD) Amer 114 mL/min >60 [facility] Work Phone: Comment on above: GFR Calc Estimated GFR (MDRD) Non-Af Amer 95 mL/min >60 [facility] Work Phone: Comment on above: Non- GFR Calc Thyroid Stimulating Hormone (TSH) 1.29 uIU/mL 0.358-3.74 [facility] Work Phone: Serum or plasma calcium alexander urement (mass/volume)on 12-30-2021 Calcium [Mass/Vol] 8.4 mg/dL 8.5-10.1 [facility] Work Phone: Serum or plasma creatinine m easurement (mass/volume)on 12-30-2021 Creatinine [Mass/Vol] 0.64 mg/dL 0.55-1.02 [facility] Work Phone: Comment on above: The validity of the calculated GFR & GFRAA in patients over 70 years has not been determined. Clinical correlation is essential. Serum or plasma urea nitroge n measurement (mass/volume)on 12-30-2021 Urea nitrogen [Mass/Vol] 15 mg/dL 7-18 [facility] Work Phone: Thin prep Papanicolaou smear with manual screeningon 12-30-2021 Thin prep Papanicolaou smear with manual screening 7 5-15 [facility] Work Phone: Thin prep Papanicolaou smear with manual screening 272 mOsm/KG 280-301 [facility] Work Phone: Urine osmolality measurement on 12-30-2021 Osmolality (U) [Osmolality] 406 mOsm/KG [facility] Work Phone: Comment on above: Normal Urine Referen ce Ranges Random: 50 - 1200 mOsm/kg H20 depending on fluid intake Random: >850 mOsm/kg after 12 hour fluid restriction 24 hour: ~300 - 900 mOsm/kg H2O Basophil percentageon 2021 Chloride [Moles/Vol] 93 mmol/L 98-107 [facility] Work Phone: Glucose [Mass/Vol] 99 mg/dL 74-106 [facility] Work Phone: Potassium [Moles/Vol] 4.2 mmol/L 3.5-5.1 [facility] Work Phone: Sodium [Moles/Vol] 128 mmol/L 136-145 [facility] Work Phone: Laboratory - Chemistry and C hemistry - challengeon 10-26-2021 CO2 [Moles/Vol] 27.0 mmol/L 21.0-32.0 [facility] Work Phone: Urea nitrogen/Creatinine [Mass ratio] 34.1 mg/mg 10-20 [facility] Work Phone: No Panel Informationon 10-26 Estimated GFR (MDRD) Amer 114 mL/min >60 [facility] Work Phone: Comment on above: GFR Calc Estimated GFR (MDRD) Non-Af Amer 94 mL/min >60 [facility] Work Phone: Comment on above: Non- GFR Calc Serum or plasma calcium alexander urement (mass/volume)on 10-26-2021 Calcium [Mass/Vol] 9.2 mg/dL 8.5-10.1 [facility] Work Phone: Serum or plasma creatinine m easurement (mass/volume)on 10-26-2021 Creatinine [Mass/Vol] 0.64 mg/dL 0.55-1.02 [facility] Work Phone: Comment on above: The validity of the calculated GFR & GFRAA in patients over 70 years has not been determined. Clinical correlation is essential. Serum or plasma urea nitroge n measurement (mass/volume)on 10-26-2021 Urea nitrogen [Mass/Vol] 22 mg/dL 7-18 [facility] Work Phone: Thin prep Papanicolaou smear with manual screeningon 10-26-2021 Thin prep Papanicolaou smear with manual screening 8 5-15 [facility] Work Phone: Absolute lymphocyte counton 10-21-2021 Lymphocytes Auto (Unsp spec) [#/Vol] 1.56 10*3/uL 0.83-4.51 [facility] Work Phone: Basophil percentageon 2021 Basophil percentage 0 SEEN /hpf [facility] Work Phone: Basophils/100 WBC (Bld) 0.9 % 0-1 [facility] Work Phone: Bilirubin [Mass/Vol] 0.50 mg/dL 0.20-1.00 [facility] Work Phone: [phone] Comment on above: For patients on eltr ombopag therapy, use of Dimension [place] TBIL is not recommended. Chloride [Moles/Vol] 93 mmol/L 98-107 [facility] Work Phone: Eosinophils/100 WBC (Bld) 1.5 % 0-5 [facility] Work Phone: [phone] Glucose [Mass/Vol] 95 mg/dL 74-106 [facility] Work Phone: Neutrophils (Bld) [#/Vol] 3.6 10*3/uL 2.0-7.7 [facility] Work Phone: [phone] Neutrophils/100 WBC (Bld) 61.8 % 47-70 [facility] Work Phone: [phone] Potassium [Moles/Vol] 4.4 mmol/L 3.5-5.1 [facility] Work Phone: Protein [Mass/Vol] 7.1 g/dL 6.4-8.2 [facility] Work Phone: Sodium [Moles/Vol] 129 mmol/L 136-145 [facility] Work Phone: WBC (Bld) [#/Vol] 5.9 10*3/uL 4.4-11.0 [facility] Work Phone: Bilirubin Test strip Ql (U)o n 10-21-2021 Bilirubin Ql (U) Negative Negative [facility] Work Phone: Blood erythrocytes count (nu mber/volume)on 10-21-2021 RBC (Bld) [#/Vol] 3.74 10*6/uL 4.2-5.4 [facility] Work Phone: Blood hemoglobin measurement (mass/volume)on 10-21-2021 Hemoglobin (Bld) [Mass/Vol] 12.3 g/dL 12.0-15.0 [facility] Work Phone: Blood lymphocytes/100 leukoc yteson 10-21-2021 Lymphocytes/100 WBC (Bld) 26.7 % 19-41 [facility] Work Phone: Blood monocytes/100 leukocyt eson 10-21-2021 Monocytes/100 WBC (Bld) 8.9 % 0-10 [facility] Work Phone: Blood platelet mean volumeon 10-21-2021 Platelet mean volume (Bld) [Entitic vol] 9.9 fL 6.2-12.0 [facility] Work Phone: Determination of erythrocyte mean corpuscular volume (MCV)on 10-21-2021 MCV (RBC) [Entitic vol] 98.1 fL 81-99 [facility] Work Phone: Hematocrit Auto (Bld) [Volum e fraction]on 10-21-2021 Hematocrit (Bld) [Volume fraction] 36.7 % 37-47 [facility] Work Phone: Iron measurement (mass/mass) on 10-21-2021 Iron (Unsp spec) [Mass/Mass] 85 ug/dL 50-170 [facility] Work Phone: Ketones Test strip Ql (U)on 10-21-2021 Ketones Ql (U) Negative Negative [facility] Work Phone: Laboratory - Chemistry and C hemistry - challengeon 10-21-2021 ALP [Catalytic activity/Vol] 38 U/L 45-117 [facility] Work Phone: ALT [Catalytic activity/Vol] 23 U/L 13-56 [facility] Work Phone: CO2 [Moles/Vol] 30.0 mmol/L 21.0-32.0 [facility] Work Phone: Cobalamin (Vitamin B12) [Mass/Vol] 754 pg/mL 211-911 [facility] Work Phone: Globulin (S) [Mass/Vol] 3.2 g/dL 2.2-4.2 [facility] Work Phone: Urea nitrogen/Creatinine [Mass ratio] 24.4 mg/mg 10-20 [facility] Work Phone: Laboratory - Hematology and Cell countson 10-21-2021 Erythrocyte distribution width (RBC) [Entitic vol] 49.1 fL 35.1-43.9 [facility] Work Phone: Erythrocyte distribution width (RBC) [Ratio] 13.5 % 11.6-14.6 [facility] Work Phone: Immature granulocytes/100 WBC (Bld) 0.200 % 0.0-0.9 [facility] Work Phone: Comment on above: IG% - Immature Granu locytes (promyelocytes, myelocytes and metamyelocytes) > 1% indicates that a LEFT SHIFT is Present. MCH (RBC) [Entitic mass] 32.9 pg 27.0-32.0 [facility] Work Phone: Nucleated RBC/100 WBC (Bld) [Ratio] 0 % 0-5 [facility] Work Phone: MCHC Auto (RBC) [Mass/Vol]on 10-21-2021 MCHC (RBC) [Mass/Vol] 33.5 g/dL 32-36 [facility] Work Phone: Mucus LM Ql (Urine sed)on Mucus Ql (Urine sed) 0 SEEN /hpf [facility] Work Phone: Nitrite Test strip Ql (U)on 10-21-2021 Nitrite Ql (U) Negative Negative [facility] Work Phone: No Panel Informationon 10-21 Estimated GFR (MDRD) Amer 112 mL/min >60 [facility] Work Phone: Comment on above: GFR Calc Estimated GFR (MDRD) Non-Af Amer 92 mL/min >60 [facility] Work Phone: Comment on above: Non- GFR Calc Total Iron Binding Capacity 331 ug/dL 250-450 [facility] Work Phone: Vitamin D 25-Hydroxy 37.4 ng/mL [facility] Work Phone: Comment on above: Vitamin D 25(OH) Sta tus Range Deficiency <20 ng/mL (50nmol/L) Insufficiency 20 - 30 ng/mL (50 - 75 nmol/L) Sufficiency 30 - 100 ng/mL (75 - 250 nmol/L) Toxicity >100 ng/mL (>250 nmol/L) Platelets bldon 10-21-2021 Platelets (Bld) [#/Vol] 322 10*3/uL 150-450 [facility] Work Phone: Protein Test strip Ql (U)on 10-21-2021 Protein Ql (U) Negative Negative [facility] Work Phone: Serum or plasma albumin alexander urement (mass/volume)on 10-21-2021 Albumin [Mass/Vol] 3.9 g/dL 3.2-5.0 [facility] Work Phone: Serum or plasma albumin/glob ulin mass ratioon 10-21-2021 Albumin/Globulin [Mass ratio] 1.2 {ratio} 0.9-2.4 [facility] Work Phone: Serum or plasma calcium alexander urement (mass/volume)on 10-21-2021 Calcium [Mass/Vol] 9.3 mg/dL 8.5-10.1 [facility] Work Phone: Serum or plasma creatinine m easurement (mass/volume)on 10-21-2021 Creatinine [Mass/Vol] 0.66 mg/dL 0.55-1.02 [facility] Work Phone: Comment on above: The validity of the calculated GFR & GFRAA in patients over 70 years has not been determined. Clinical correlation is essential. Serum or plasma ferritin tariq surement (mass/volume)on 10-21-2021 Ferritin [Mass/Vol] 98 ng/mL 8-252 [facility] Work Phone: Serum or plasma folate measu rement (mass/volume)on 10-21-2021 Folate [Mass/Vol] 55.70 ng/mL 3.1-55.4 [facility] Work Phone: Serum or plasma urea nitroge n measurement (mass/volume)on 10-21-2021 Urea nitrogen [Mass/Vol] 16 mg/dL 7-18 [facility] Work Phone: Squamous epithelial cells de tection in urine sediment by light microscopyon 10-21-2021 Epithelial cells.squamous LM Ql (Urine sed) 0 SEEN /hpf [facility] Work Phone: Thin prep Papanicolaou smear with manual screeningon 10-21-2021 Thin prep Papanicolaou smear with manual screening 19 U/L 15-37 [facility] Work Phone: Thin prep Papanicolaou smear with manual screening 6 5-15 [facility] Work Phone: Urine blood detectionon 10-06 RBC Ql (U) 10 /ul Negative [facility] Work Phone: RBC Ql (U) 0 SEEN /hpf [facility] Work Phone: Urine clarityon 10-21-2021 Clarity (U) Clear Clear [facility] Work Phone: Urine color determinationon 10-21-2021 Color (U) Yellow Yellow [facility] Work Phone: Urine glucose detectionon Glucose Ql (U) Normal mg/dl Normal [facility] Work Phone: Urine leukocyte esterase det ection by dipstickon 10-21-2021 Leukocyte esterase Test strip Ql (U) 25 /ul Negative [facility] Work Phone: Urine pHon 10-21-2021 pH (U) 8.0 [pH] [facility] Work Phone: Urine sediment bacteria coun t by microscopy (number/high power field)on 10-21-2021 Bacteria LM.HPF (Urine sed) [#/Area] 0 /[HPF] None Seen [facility] Work Phone: Urine specific gravity measu rementon 10-21-2021 Specific gravity (U) [Rel density] 1.015 [facility] Work Phone: Urobilinogen Auto test strip Ql (U)on 10-21-2021 Urobilinogen Ql (U) Normal mg/dl Normal [facility] Work Phone: Culture, urine Bacteria identified Cx Nom (U) Positive [facility] Work Phone: Vital Signs Date Time Vital Sign Value Performing Clinician Facility 04-30-2025 15:00-0400 Diastolic blood pressure 70 mm[Hg] Dr. Rosaura Peck MD Work Phone: [facility] 04-30-2025 15:00-0400 Heart rate 80 /min Dr. Rosaura Peck MD Work Phone: [facility] 04-30-2025 15:00-0400 Respiratory rate 18 /min Dr. Rosaura Peck MD Work Phone: [facility] 04-30-2025 15:00-0400 SaO2% (BldA) [Mass fraction] 98 % Dr. Rosaura Peck MD Work Phone: [facility] 04-30-2025 15:00-0400 Systolic blood pressure 168 mm[Hg] Dr. Rosaura Peck MD Work Phone: [facility] 04-30-2025 14:57-0400 Body temperature 98.3 [degF] Dr. Rosaura Peck MD Work Phone: [facility] 04-30-2025 13:06-0400 Inhaled oxygen flow rate 0 L/min Dr. Rosaura Peck MD Work Phone: [facility] 04-30-2025 09:08-0400 Body height 162.[address] Rosaura Peck MD Work Phone: [facility] 04-30-2025 09:08-0400 Body mass index (BMI) [Ratio] 20.9 kg/m2 Dr. Rosaura Peck MD Work Phone: [facility] 04-30-2025 09:08-0400 Body weight 55.[address] Rosaura Peck MD Work Phone: [facility] 04-24-2025 13:10-0400 Body height 162.6 cm Santana Garcia MD Work Phone: [facility] 04-24-2025 13:10-0400 Body mass index (BMI) [Ratio] 19.94 kg/m2 Santana Garcia MD Work Phone: [facility] 04-24-2025 13:10-0400 Body weight 52.71 kg Santana Garcia MD Work Phone: [facility] 04-24-2025 13:10-0400 Diastolic blood pressure 69 mm[Hg] Santana Garcia MD Work Phone: [facility] 04-24-2025 13:10-0400 Heart rate 63 /min Santana Garcia MD Work Phone: [facility] 04-24-2025 13:10-0400 Systolic blood pressure 135 mm[Hg] Santana Garcia MD Work Phone: [facility] 03-21-2025 08:41-0400 Diastolic blood pressure 65 mm[Hg] Dr. Rosaura Peck MD Work Phone: [facility] 03-21-2025 08:41-0400 Heart rate 71 /min Dr. Rosaura Peck MD Work Phone: [facility] 03-21-2025 08:41-0400 Systolic blood pressure 138 mm[Hg] Dr. Rosaura Peck MD Work Phone: [facility] 03-21-2025 06:00-0400 Body temperature 97 [degF] Dr. Rosaura Peck MD Work Phone: [facility] 03-21-2025 06:00-0400 Respiratory rate 16 /min Dr. Rosaura Peck MD Work Phone: [facility] 03-21-2025 06:00-0400 SaO2% (BldA) [Mass fraction] 97 % Dr. Rosaura Peck MD Work Phone: 6(872)504-632633 [place] [address] 03-20-2025 04:12-0400 Body mass index (BMI) [Ratio] 19.3 kg/m2 Dr. Rosaura Peck MD Work Phone: 0(543)112-207033 [place] [address] 03-20-2025 04:12-0400 Body weight 51.[address] Rosaura Peck MD Work Phone: 2(429)759-357133 [place] [address] 03-14-2025 11:49-0400 Body height 162.[address] Rosaura Peck MD Work Phone: [facility] 03-07-2025 21:52-0400 Inhaled oxygen concentration 21 % Dr. Rosaura Pekc MD Work Phone: [facility] 03-05-2025 18:00-0400 Body temperature 97.6 [degF] Dr. Rosaura Peck MD Work Phone: [facility] 03-05-2025 18:00-0400 Diastolic blood pressure 86 mm[Hg] Dr. Rosaura Peck MD Work Phone: [facility] 03-05-2025 18:00-0400 Heart rate 62 /min Dr. Rosaura Peck MD Work Phone: [facility] 03-05-2025 18:00-0400 Respiratory rate 16 /min Dr. Rosaura Peck MD Work Phone: [facility] 03-05-2025 18:00-0400 SaO2% (BldA) [Mass fraction] 96 % Dr. Rosaura Peck MD Work Phone: [facility] 03-05-2025 18:00-0400 Systolic blood pressure 160 mm[Hg] Dr. Rosaura Peck MD Work Phone: 2(231)490-025796 [address] 03-05-2025 15:16-0400 Inhaled oxygen flow rate 2 L/min Dr. Rosaura Peck MD Work Phone: 9(392)828-472827 [place] [address] 03-05-2025 13:30-0400 Inhaled oxygen concentration 94 % Dr. Rosaura Peck MD Work Phone: 4(396)092-651327 [place] [address] 03-05-2025 10:04-0400 Body mass index (BMI) [Ratio] 18.7 kg/m2 Dr. Rosaura Peck MD Work Phone: 6(633)523-025533 [place] [address] 03-05-2025 10:04-0400 Body weight 49.[address] Rosaura Peck MD Work Phone: 5(955)051-654333 [place] [address] 03-05-2025 09:46-0400 Body height 162.[address] Rosaura Peck MD Work Phone: 3(431)268-491996 [address] 02-05-2025 11:57-0400 Body temperature 98.4 [degF] Dr. Rosaura Peck MD Work Phone: 5(613)758-168833 [place] [address] 02-05-2025 11:57-0400 Diastolic blood pressure 84 mm[Hg] Dr. Rosaura Peck MD Work Phone: 5(225)016-047033 [place] [address] 02-05-2025 11:57-0400 Heart rate 74 /min Dr. Rosaura Peck MD Work Phone: 4(481)436-315727 [place] [address] 02-05-2025 11:57-0400 SaO2% (BldA) [Mass fraction] 99 % Dr. Rosaura Peck MD Work Phone: 6(593)884-821633 [place] [address] 02-05-2025 11:57-0400 Systolic blood pressure 126 mm[Hg] Dr. Rosaura Peck MD Work Phone: 6(573)100-564127 [place] [address] 12-17-2024 11:20-0400 Diastolic blood pressure 86 mm[Hg] Santana Garcia MD Work Phone: [employer] 12-17-2024 11:20-0400 Systolic blood pressure 140 mm[Hg] Santana Garcia MD Work Phone: [facility] 12-17-2024 10:43-0400 Body height 162.6 cm Santana Garcia MD Work Phone: [facility] 12-17-2024 10:43-0400 Body mass index (BMI) [Ratio] 19.66 kg/m2 Santana Garcia MD Work Phone: [employer] 12-17-2024 10:43-0400 Body weight 51.98 kg Santana Garcia MD Work Phone: [facility] 12-17-2024 10:43-0400 Heart rate 67 /min Santana Garcia MD Work Phone: [facility] 12-17-2024 10:43-0400 SaO2% (BldA) [Mass fraction] 91 % Santana Garcia MD Work Phone: [employer] 09-07-2024 11:02-0500 Body height 162.6 cm Santana Garcia MD Work Phone: [employer] 09-07-2024 11:02-0500 Body mass index (BMI) [Ratio] 19.22 kg/m2 Santana Garcia MD Work Phone: [employer] 09-07-2024 11:02-0500 Body weight 50.8 kg Santana Garcia MD Work Phone: [employer] 09-07-2024 11:02-0500 Diastolic blood pressure 78 mm[Hg] Santana Garcia MD Work Phone: [employer] 09-07-2024 11:02-0500 Heart rate 61 /min Santana Garcia MD Work Phone: [employer] 09-07-2024 11:02-0500 Systolic blood pressure 152 mm[Hg] Santana Garcia MD Work Phone: [facility] 12-13-2023 14:00-0400 Body temperature 97.9 [degF] Dr. Rosaura Peck Work Phone: [facility] 12-13-2023 14:00-0400 Diastolic blood pressure 62 mm[Hg] Dr. Rosaura Peck Work Phone: [facility] 12-13-2023 14:00-0400 Heart rate 61 /min Dr. Rosaura Peck Work Phone: [facility] 12-13-2023 14:00-0400 Respiratory rate 17 /min Dr. Rosaura Peck Work Phone: [facility] 12-13-2023 14:00-0400 SaO2% (BldA) [Mass fraction] 95 % Dr. Rosaura Peck Work Phone: [facility] 12-13-2023 14:00-0400 Systolic blood pressure 125 mm[Hg] Dr. Rosaura Peck Work Phone: [facility] 12-12-2023 01:48-0400 Body height 157.[address] Rosaura Peck Work Phone: [facility] 12-12-2023 01:48-0400 Body mass index (BMI) [Ratio] 19.8 kg/m2 Dr. Rosaura Peck Work Phone: [facility] 12-12-2023 01:48-0400 Body weight 49.[address] Rosaura Peck Work Phone: [facility] 12-10-2023 12:20-0400 Body temperature 97.9 [degF] Dr. Rosaura Peck Work Phone: [facility] 12-10-2023 12:20-0400 Diastolic blood pressure 88 mm[Hg] Dr. Rosaura Peck Work Phone: [facility] 12-10-2023 12:20-0400 Heart rate 59 /min Dr. Rosaura Peck Work Phone: [facility] 12-10-2023 12:20-0400 Respiratory rate 18 /min Dr. Rosaura Peck Work Phone: [facility] 12-10-2023 12:20-0400 SaO2% (BldA) [Mass fraction] 99 % Dr. Rosaura Peck Work Phone: [facility] 12-10-2023 12:20-0400 Systolic blood pressure 165 mm[Hg] Dr. Rosaura Peck Work Phone: [facility] 12-10-2023 09:25-0400 Body height 162.[address] Rosaura Peck Work Phone: [facility] 12-10-2023 09:25-0400 Body mass index (BMI) [Ratio] 19.3 kg/m2 Dr. Rosaura Peck Work Phone: [facility] 12-10-2023 09:25-0400 Body weight 51.[address] Rosaura Peck Work Phone: [facility] 11-10-2023 11:16-0500 Body height 162.56 cm [facility] 11-10-2023 11:16-0500 Body temperature 97.3 [degF] [facility] 11-10-2023 11:16-0500 Diastolic blood pressure 84 mm[Hg] [facility] 11-10-2023 11:16-0500 Heart rate 51 /min [facility] 11-10-2023 11:16-0500 Respiratory rate 14 /min [facility] 11-10-2023 11:16-0500 SaO2% (BldA) [Mass fraction] 98 % [facility] 11-10-2023 11:16-0500 Systolic blood pressure 151 mm[Hg] [facility] 06-25-2023 08:27-0400 Body height 162.[address] Rosaura Peck Work Phone: [facility] 06-25-2023 08:27-0400 Body mass index (BMI) [Ratio] 20 kg/m2 Dr. Rosaura Peck Work Phone: [facility] 06-25-2023 08:27-0400 Body temperature 98.2 [degF] Dr. Rosaura Peck Work Phone: [facility] 06-25-2023 08:27-0400 Body weight 53.[address] Rosaura Peck Work Phone: [facility] 06-25-2023 08:27-0400 Diastolic blood pressure 81 mm[Hg] Dr. Rosaura Peck Work Phone: [facility] 06-25-2023 08:27-0400 Heart rate 60 /min Dr. Rosaura Peck Work Phone: [facility] 06-25-2023 08:27-0400 SaO2% (BldA) [Mass fraction] 96 % Dr. Rosaura Peck Work Phone: [facility] 06-25-2023 08:27-0400 Systolic blood pressure 174 mm[Hg] Dr. Rosaura Peck Work Phone: [facility] 02-11-2023 19:00-0400 Diastolic blood pressure 98 mm[Hg] [facility] 02-11-2023 19:00-0400 Heart rate 64 /min [facility] 02-11-2023 19:00-0400 Respiratory rate 21 /min [facility] 02-11-2023 19:00-0400 SaO2% (BldA) [Mass fraction] 94 % [facility] 02-11-2023 19:00-0400 Systolic blood pressure 157 mm[Hg] [facility] 02-11-2023 18:45-0400 Body temperature 98.5 [degF] [facility] 02-11-2023 12:24-0400 Body height 162.56 cm [facility] 02-11-2023 12:24-0400 Body mass index (BMI) [Ratio] 23 kg/m2 [facility] 02-11-2023 12:24-0400 Body weight 60.9 kg [facility] 12-09-2022 12:06-0400 Body height 162.6 cm [facility] 1 Work Phone: [facility] 12-09-2022 12:06-0400 Body weight 53.52 kg [facility] Work Phone: [facility] 12-09-2022 12:06-0400 Diastolic blood pressure 67 mm[Hg] [facility] Work Phone: [facility] 12-09-2022 12:06-0400 Heart rate 65 /min [facility] Work Phone: [facility] 12-09-2022 12:06-0400 Respiratory rate 20 /min [facility] Work Phone: [facility] 12-09-2022 12:06-0400 SaO2% (BldA) [Mass fraction] 97 % [facility] Work Phone: [facility] 12-09-2022 12:06-0400 Systolic blood pressure 146 mm[Hg] [facility] Work Phone: [facility] 11-29-2022 15:27-0400 Body height 162.56 cm [facility] 11-29-2022 15:27-0400 Body mass index (BMI) [Ratio] 20.5 kg/m2 [facility] 11-29-2022 15:27-0400 Body temperature 97.4 [degF] [facility] 11-29-2022 15:27-0400 Body weight 54.34 kg [facility] 11-29-2022 15:27-0400 Diastolic blood pressure 82 mm[Hg] [facility] 11-29-2022 15:27-0400 Heart rate 71 /min [facility] 11-29-2022 15:27-0400 Respiratory rate 16 /min [facility] 11-29-2022 15:27-0400 SaO2% (BldA) [Mass fraction] 99 % [facility] 11-29-2022 15:27-0400 Systolic blood pressure 156 mm[Hg] [facility] 10-01-2022 13:44-0500 Body temperature 98.6 [degF] [facility] 10-01-2022 13:44-0500 Diastolic blood pressure 73 mm[Hg] [facility] 10-01-2022 13:44-0500 Heart rate 70 /min [facility] 10-01-2022 13:44-0500 Respiratory rate 18 /min [facility] 10-01-2022 13:44-0500 SaO2% (BldA) [Mass fraction] 98 % [facility] 10-01-2022 13:44-0500 Systolic blood pressure 140 mm[Hg] [facility] 09-30-2022 14:41-0500 Inhaled oxygen flow rate 4 L/min [facility] 09-30-2022 09:28-0500 Body height 162.56 cm [facility] 09-30-2022 09:28-0500 Body mass index (BMI) [Ratio] 20.2 kg/m2 [facility] 09-30-2022 09:28-0500 Body weight 53.52 kg [facility] 05-19-2022 13:49-0400 Diastolic blood pressure 81 mm[Hg] [facility] Work Phone: 05-19-2022 13:49-0400 Heart rate 68 /min [facility] Work Phone: 05-19-2022 13:49-0400 Respiratory rate 20 /min [facility] Work Phone: 05-19-2022 13:49-0400 SaO2% (BldA) [Mass fraction] 98 % [facility] Work Phone: 05-19-2022 13:49-0400 Systolic blood pressure 146 mm[Hg] [facility] Work Phone: 05-19-2022 10:25-0400 Body height 162.56 cm [facility] Work Phone: 05-19-2022 10:25-0400 Body mass index (BMI) [Ratio] 21.4 kg/m2 [facility] Work Phone: 05-19-2022 10:25-0400 Body temperature 96.5 [degF] [facility] Work Phone: 05-19-2022 10:25-0400 Body weight 56.5 kg [facility] Work Phone: 10-23-2021 09:29-0500 Heart rate 60 /min [facility] Work Phone: 10-23-2021 09:29-0500 Respiratory rate 16 /min [facility] Work Phone: 10-23-2021 07:20-0500 Body height 162.56 cm [facility] Work Phone: 10-23-2021 07:20-0500 Body mass index (BMI) [Ratio] 21.1 kg/m2 [facility] Work Phone: 10-23-2021 07:20-0500 Body temperature 97.9 [degF] [facility] Work Phone: 10-23-2021 07:20-0500 Body weight 55.79 kg [facility] Work Phone: 10-23-2021 07:20-0500 Diastolic blood pressure 93 mm[Hg] [facility] Work Phone: 10-23-2021 07:20-0500 SaO2% (BldA) [Mass fraction] 100 % [facility] Work Phone: 10-23-2021 07:20-0500 Systolic blood pressure 164 mm[Hg] [facility] Work Phone: Encounters Encounter Date Encounter Type Care Provider Facility Start: 05-09-2025 ambulatory NONE PHYSICIAN Facility :A Start: 05-07-2025 End: 05-07-2025 ambulatory NONE PHYSICIAN Facility:[facility] Start: 05-07-2025 End: 05-07-2025 Patient encounter procedure DANIE GRACIA MD [facility] Start: 04-30-2025 End: 04-30-2025 Emergency department patient visit Dr. Rosaura Peck MD Work Phone: -Emergency Department Work Phone: Start: 04-24-2025 End: 04-24-2025 Office outpatient visit 10 minutes Santana Garcia MD Work Phone: [facility] Gynecologic Oncology - [place] Comment on above: Pelvic mass in femal e (Primary Dx) Start: 04-24-2025 End: 04-24-2025 ambulatory SANTANA GARCIA [facility] Start: 04-18-2025 End: 04-18-[address] Rosaura Peck MD Work Phone: -Ultrasound [facility] Start: 04-18-2025 End: 04-18-[address] Santana Garcia MD -Ultrasound [facility] Work Phone: Start: 04-18-2025 End: 04-18-2025 ambulatory Rosaura Peck Facility:[facility] Start: 04-12-2025 End: 04-12-2025 Patient encounter procedure Sarina REYES -[facility] Work Phone: Start: 04-12-2025 End: 04-12-[address] Rosaura Peck MD Work Phone: -[facility] Start: 03-27-2025 ambulatory Rosaura Lobato y:[facility] Start: 03-20-2025 Non-patient / Non-visit Dr. Derek Perea DO [facility] Work Phone: Start: 03-19-2025 Non-patient / Non-visit Dr. Derek Perea DO [facility] Work Phone: Start: 03-18-2025 Non-patient / Non-visit Carly BLAIR -[facility]- Start: 03-14-2025 Non-patient / Non-visit Dr. Derek Perea DO [facility] Work Phone: Start: 03-13-2025 Non-patient / Non-visit Dr. Derek Perea DO -[facility] Work Phone: Start: 03-11-2025 Non-patient / Non-visit Carly Dinesh RESEARCH AND EVALUATION MANAGER-C -[facility] Start: 03-07-2025 Non-patient / Non-visit Carly Dinesh RESEARCH AND EVALUATION MANAGER-C -[facility] Start: 03-06-2025 ambulatory Rosaura Lobato y:[facility] Start: 03-06-2025 End: 03-21-2025 Evaluation and management of inpatient Dr. Justina Perea DO -Rehab Unit Work Phone: Start: 03-05-2025 End: 03-05-2025 Emergency department patient visit Dr. Rosaura Peck MD Work Phone: -Emergency Department Work Phone: Start: 02-20-2025 End: 02-20-2025 Telephone encounter Santana Garcia MD Work Phone: [facility] Gynecologic Oncology [facility] Start: 02-20-2025 End: 02-20-[address] Rosaura Peck MD Work Phone: [facility] Work Phone: Start: 02-20-2025 End: 02-20-[address] Rosaura Peck MD -Laboratory [facility] Start: 02-19-2025 End: 02-20-[address] Rosaura Peck MD Work Phone: [facility] Work Phone: Start: 02-19-2025 End: 02-19-2025 Patient encounter procedure Roma REYES -Laboratory Work Phone: Start: 02-19-2025 End: 02-19-2025 ambulatory Roma Johnson Facility:[facility] Start: 02-05-2025 End: 02-05-2025 Patient encounter procedure Jimmy Storm [facility] -[facility] Work Phone: Start: 02-05-2025 End: 02-05-[address] Rosaura Peck MD Work Phone: [facility] Work Phone: Start: 01-09-2025 End: 01-09-2025 Patient encounter procedure Sarina REYES -[facility] Work Phone: Start: 01-09-2025 End: 01-09-2025 ambulatory Rosaura Peck Facility:[facility] Start: 12-25-2024 End: 12-25-2024 Telephone encounter Santana Garcia MD Work Phone: [facility] Gynecologic Oncology - [place] Start: 12-17-2024 End: 12-17-2024 Office outpatient visit 15 minutes Santana Garcia MD Work Phone: [facility] Oncology - [place] Comment on above: Pelvic mass in femal e (Primary Dx) Start: 12-17-2024 End: 12-17-2024 ambulatory [facility] Start: 12-12-2024 End: 12-12-[address] Rosaura Peck MD Work Phone: [facility] Work Phone: Start: 12-12-2024 End: 12-12-2024 Discharged Recurring Roma REYES -Physical Therapy Work Phone: Start: 12-11-2024 End: 12-11-2024 Telephone encounter Santana Garcia MD Work Phone: [facility] Oncology - [place] Start: 12-10-2024 Registered Recurring Roma REYES -Physical Therapy Work Phone: Start: 12-06-2024 End: 12-06-[address] Rosaura Peck MD Work Phone: [facility] Work Phone: Start: 12-06-2024 End: 12-06-[address] Santana Garcia MD -Ultrasound, [facility] Work Phone: Start: 12-06-2024 End: 12-06-2024 ambulatory Santana Garcia Facility:[facility] Start: 11-28-2024 Registered Recurring Roma REYES -Physical Therapy Work Phone: Start: 11-21-2024 End: 11-21-[address] Rosaura Peck MD Work Phone: [facility] Work Phone: Start: 11-21-2024 End: 11-21-[address] Rosaura Peck MD -Laboratory, [facility] Start: 11-21-2024 End: 11-21-2024 ambulatory Rosaura Peck Facility:[facility] Start: 10-19-2024 End: 10-19-2024 Patient encounter procedure Sarina REYES -[facility] Work Phone: Start: 10-19-2024 End: 10-19-2024 ambulatory Rosaura Peck Facility:[facility] Start: 10-04-2024 End: 10-04-[address] Star Kirby MD -Radiology, [place] Work Phone: Start: 10-04-2024 End: 10-04-2024 ambulatory Star Kirby Facility:[facility] Start: 10-03-2024 End: 10-03-[address] Rosaura Peck MD -Laboratory, [facility] Start: 10-03-2024 End: 10-03-2024 ambulatory Rosaura Peck Facility:[facility] Start: 09-07-2024 End: 09-07-2024 Office outpatient new 30 minutes Santana Garcia MD Work Phone: [facility] Gynecologic Oncology - [place] Comment on above: Pelvic mass in femal e (Primary Dx) Start: 09-07-2024 End: 09-07-2024 ambulatory SANTANA GARCIA [facility] Start: 08-23-2024 End: 08-23-2024 Patient encounter procedure Sarina REYES -[facility] Work Phone: Start: 08-23-2024 End: 08-23-2024 ambulatory Sarina Messer Facility:[facility] Start: 07-11-2024 End: 07-11-2024 ambulatory Sarina Keyesnasov Facility:[facility] Start: 07-11-2024 End: 07-11-2024 ambulatory Sarina Walinasov Facility:[facility] Start: 07-04-2024 End: 07-04-2024 ambulatory Rosaura Peck Facility:[facility] Start: 06-26-2024 End: 06-26-2024 ambulatory Rosaura Peck Facility:[facility] Start: 06-22-2024 End: 06-22-2024 ambulatory Rosaura Peck Facility:[facility] Start: 06-20-2024 End: 06-20-2024 ambulatory Rosaura Peck Facility:[facility] Start: 06-13-2024 ambulatory Rosaura Peck Facilit y:[facility] Start: 06-13-2024 End: 06-13-2024 ambulatory Rosaura Peck Facility:[facility] Start: 06-12-2024 ambulatory Rosaura Peck Facilit y:[facility] Start: 06-12-2024 End: 06-14-2024 Evaluation and management of inpatient Rosaura Peck Facility:[facility] Start: 06-01-2024 ambulatory Rosaura Peck Facilit y:[facility] Start: 05-25-2024 ambulatory Rosaura Peck Facilit y:[facility] Start: 05-24-2024 ambulatory Rosaura Peck Facilit y:[facility] Start: 05-23-2024 End: 05-23-2024 ambulatory Angela Rivera RESEARCH AND EVALUATION MANAGER Facility:[facility] Start: 05-21-2024 End: 05-21-2024 Emergency department patient visit Rosaura Peck Facility:[facility] Start: 05-18-2024 ambulatory Rosaura Peck Facilit y:[facility] Start: 05-15-2024 End: 05-15-2024 ambulatory Angela Rivera RESEARCH AND EVALUATION MANAGER Facility:[facility] Start: 05-11-2024 ambulatory Rosaura Peck Facilit y:[facility] Start: 05-08-2024 End: 05-08-2024 ambulatory Rosaura Peck Facility:[facility] Start: 02-16-2024 End: 02-23-2024 Evaluation and management of inpatient ROSAURA PECK Facility:[id number] Start: 01-10-2024 End: 01-10-[address] Rosaura Peck Work Phone: [facility] Work Phone: Start: 01-10-2024 End: 01-10-[address] Rosaura Peck Work Phone: [facility] Work Phone: Start: 12-22-2023 End: 12-22-[address] Rosaura Peck Work Phone: [facility] Work Phone: Start: 12-22-2023 End: 12-22-[address] Rosaura Peck Work Phone: [facility] Start: 12-13-2023 Non-patient / Non-visit Dr. Antonieta Peck Work Phone: [facility] Work Phone: Start: 12-12-2023 Non-patient / Non-visit Dr. Antonieta Peck Work Phone: [facility] Work Phone: Start: 12-12-2023 Non-patient / Non-visit Dr. Antonieta Peck Work Phone: [facility] Start: 12-11-2023 Non-patient / Non-visit Dr. Antonieta Peck Work Phone: [facility] Work Phone: Start: 12-10-2023 Non-patient / Non-visit Dr. Antonieta Peck Work Phone: [facility] Start: 12-10-2023 Non-patient / Non-visit Dr. Antonieta Peck Work Phone: [facility] Work Phone: Start: 12-10-2023 End: 12-13-2023 Evaluation and management of inpatient Dr. Rosaura Peck Work Phone: [facility]-Progressive Care Unit Work Phone: Start: 11-24-[address] Rosaura Peck Work Phone: [facility]-Physical Therapy Work Phone: Start: 11-11-2023 End: 11-11-2023 ambulatory [facility] Work Phone: Start: 11-11-2023 End: 11-11-2023 Patient encounter procedure [facility] Work Phone: Start: 11-10-2023 End: 11-10-2023 Emergency department patient visit [facility]-Emergency Department Work Phone: Start: 11-07-2023 Registered Recurring [facility]-Physical Therapy Work Phone: Start: 07-01-2023 End: 07-01-[address] Rosaura Peck Work Phone: [facility] Work Phone: Start: 07-01-2023 End: 07-01-[address] Rosaura Peck Work Phone: [facility] Start: 06-29-2023 End: 06-29-[address] Rosaura Peck Work Phone: [facility] Work Phone: Start: 06-29-2023 End: 06-29-[address] Rosaura Peck Work Phone: [facility] Start: 06-25-2023 End: 06-25-[address] Rosaura Peck Work Phone: [facility] Work Phone: Start: 03-22-2023 End: 03-22-[address] Rosaura Peck Work Phone: [facility] Work Phone: Start: 03-22-2023 End: 03-22-[address] Rosaura Peck Work Phone: [facility] Work Phone: Start: 03-17-[address] Rosaura najera Work Phone: [facility] Start: 03-10-[address] Rosaura najera Work Phone: [facility] Start: 03-04-[address] Rosaura najera Work Phone: [facility] Start: 02-28-2023 End: 03-01-2023 ambulatory PETTY CHILDS MD Facility:A Start: 02-28-2023 Registered Referred [facility] Start: 02-28-2023 End: 02-28-2023 Patient encounter procedure PETTY CHILDS MD [facility] Start: 02-25-2023 End: 02-25-2023 ambulatory [facility] Work Phone: Start: 02-25-2023 End: 02-25-2023 Patient encounter procedure [facility] Start: 02-25-2023 Registered Referred [facility] Start: 02-24-2023 End: 02-24-[address] Rosaura Peck Work Phone: [facility] Work Phone: Start: 02-24-2023 Registered Referred [facility] Start: 02-22-2023 End: 02-22-[address] Rosaura Peck Work Phone: [facility] Work Phone: Start: 02-17-2023 Registered Referred [facility] Start: 02-16-2023 End: 02-16-[address] Rosaura Peck Work Phone: [facility] Work Phone: Start: 02-11-2023 End: 02-15-2023 Evaluation and management of inpatient NONE PHYSICIAN Facility:A Start: 02-11-2023 End: 02-11-2023 Emergency department patient visit [facility]-Emergency Department Start: 01-04-2023 End: 01-04-2023 ambulatory [facility] Work Phone: Start: 01-04-2023 End: 01-04-2023 Patient encounter procedure [facility] Start: 12-09-2022 End: 12-09-2022 [place]mission to [place] [address] Work Phone: [facility] Start: 12-09-2022 End: 12-09-2022 ambulatory [facility] 1 Work Phone: Pre Anesthesia Comment on above: Pre-op testing (Prim toña Dx); Pain in other specified joint ; Postprocedural hypoinsulinemia Start: 12-09-2022 End: 12-09-2022 Patient encounter status Pacc 1 Work Phone: Pre Anesthesia Start: 12-03-2022 End: 12-03-2022 ambulatory [facility] Work Phone: Start: 12-03-2022 End: 12-03-2022 [facility] Start: 12-01-2022 End: 12-01-2022 Patient encounter procedure [facility] Start: 11-30-2022 End: 11-30-2022 ambulatory [facility] Work Phone: Start: 11-30-2022 End: 11-30-2022 Patient encounter procedure [facility]-Cat Scan, H Start: 11-29-2022 End: 11-29-2022 Emergency department patient visit [facility]-Emergency Department Start: 11-25-2022 Registered Recurring [facility]-Physical Therapy Start: 09-30-2022 End: 10-01-2022 Evaluation and management of inpatient [facility]-Medical Surgical 3 Start: 09-30-2022 End: 10-01-2022 observation encounter [facility] Work Phone: Start: 09-13-2022 End: 09-13-2022 [facility] Start: 06-25-2022 End: 06-25-2022 ambulatory [facility] Work Phone: Start: 06-25-2022 End: 06-25-2022 [facility] Start: 06-22-2022 End: 06-22-2022 ambulatory [facility] Work Phone: Start: 06-22-2022 End: 06-22-2022 Patient encounter procedure [facility]-Cat Scan, [facility] Start: 06-16-2022 End: 06-16-2022 ambulatory [facility] Work Phone: Start: 06-16-2022 End: 06-16-2022 Patient encounter procedure [facility]-Laboratory, Specimen Start: 06-09-2022 End: 06-09-2022 ambulatory [facility] Work Phone: Start: 06-09-2022 End: 06-09-2022 [facility] Start: 05-19-2022 End: 05-19-2022 Emergency department patient visit [facility]-Emergency Department Start: 02-13-2022 End: 02-13-2022 Patient encounter procedure [facility]MRI [facility] Start: 01-27-2022 End: 01-27-2022 Patient encounter procedure [facility]-Laboratory, Specimen Start: 01-25-2022 End: 01-25-2022 [facility] 3[facility] Flr Start: 12-30-2021 End: 12-30-2021 [facility] encounter [facility], [facility] 3rd Flr Start: 10-26-2021 End: 10-26-2021 [facility], [facility] Start: 10-23-2021 End: 10-23-2021 [facility] Start: 10-21-2021 Patient encounter procedure [facility] Procedures Date Procedure Procedure Detail Performing Clinician Start: 04-30-2025 Plain X-ray of hip Dr. Rosaura Peck MD Work Phone: Start: 04-30-2025 Plain x-ray of pelvi s and lower extremity Dr. Rosaura Peck MD Work Phone: Start: 04-18-[address] Joesph Peck MD Work Phone: Start: 03-20-[address] Rosaura Peck MD Work Phone: Start: 03-08-2025 Measurement of occul t blood in stool specimen using immunoassay Dr. Rosaura Peck MD Work Phone: Start: 03-08-2025 Total iron binding capacity measurement Dr. Rosaura Peck MD Work Phone: Start: 03-07-2025 Serum inorganic phos phate measurement Dr. Rosaura Peck MD Work Phone: Start: 03-05-2025 X-ray of knee, one o r two views Dr. Rosaura Peck MD Work Phone: Start: 03-05-2025 Plain X-ray of hip Dr. Rosaura Peck MD Work Phone: Start: 03-05-2025 Plain X-ray of hip Dr. Rosaura Peck MD Work Phone: Start: 03-05-2025 Plain x-ray of pelvi s and lower extremity Dr. Rosaura Peck MD Work Phone: Start: 02-20-2025 Urnls dip stick/tabl et reagent auto microscopy Dr. Rosaura Peck MD Work Phone: Start: 02-20-2025 Vitamin D, 25-hydrox y measurement Dr. Rosaura Peck MD Work Phone: Comment on above: Vitamin D StatusDefi ciency: <20 ng/mL (50nmol/L)Insufficiency: 20-30 ng/mL (50-75 nmol/L)Sufficiency: 30-100 ng/mL (75-250 nmol/L)Toxicity: >100 ng/mL (>250 nmol/L) Start: 02-19-2025 End: 02-19-2025 Acid fast bacilli culture Dr. Rosaura donis MD Work Phone: Start: 02-19-[address] Rosaura Peck MD Work Phone: Start: 02-19-2025 Gram stain microscopy Ramesh Peck MD Work Phone: Start: 02-19-2025 End: 02-19-2025 Microbial culture, body fluid Dr. Rosaura Peck MD Work Phone: Start: 02-19-[address] Antonieta Peck MD Work Phone: Start: 12-06-[address] Joesph Peck MD Work Phone: Start: 10-04-2024 Plain x-ray of pelvi s and lower extremity Dr. Rosaura Peck MD Work Phone: Start: 08-23-2024 MRI of abdomen with contrast Dr. Rosaura Peck MD Work Phone: Start: 02-20-2024 Antibody screen ROSAURA CARCAMO Comment on above: Order Comment: Speci men Type: BLOOD SPECIMEN Ordering Facility: [facility] Address: [address] [place], [place] [id number] Performed By: #### 1 [id number], [id number] #### [facility] CLIA [id number] [address] [place] [address] Start: 02-16-2024 Antibody screen ROSAURA CARCAMO Comment on above: Order Comment: Speci men Type: BLOOD SPECIMEN Ordering Facility: [facility] Address: [address] [place] [address] Performed By: #### T SCR #### [facility] CLIA [id number] [address] [place] [address] Start: 01-10-2024 Plain x-ray of pelvi s and lower extremity Dr. Rosaura Peck Work Phone: Start: 12-12-[address] Rosaura najera Work Phone: Start: 12-10-2023 Measurement of occul t blood in stool specimen using immunoassay Dr. Rosaura Peck Work Phone: Start: 12-10-2023 Computed tomography of abdomen and pelvis with contrast Dr. Rosaura Peck Work Phone: Start: 11-11-2023 Plain x-ray of pelvi s and lower extremity Start: 07-01-2023 Bacteria identified in Urine by Culture Dr. Rosaura Peck Work Phone: Start: 07-01-[address] Rosaura Peck Work Phone: Start: 03-22-2023 CT of upper limb wit hout contrast Dr. 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 Rosaura Peck MD Work Phone: Nasal Screen MRSA/MSSA Urine culture Urine culture Plan of Treatment Date Care Activity Detail Author Start: 12-09-2025 DIABETES SCREEN DIABETES SCREEN [facility] Start: 05-06-2025 Influenza vaccination Influenza Vacc ine (#1) [facility] Start: 04-30-2025 [facility] Start: 04-18-2025 End: 12-17-2025 US Pelvis transvaginal US pelvis transvaginal Imaging Routine Pelvic mass in female Expected: 04/18/2025, Expires: 12/17/2025 [facility] Work Phone: Comment on above: Expected: 04/18/2025 , Expires: 12/17/2025 Start: 04-10-2025 End: 04-10-2025 Patient encounter procedure 04/10/2025 1:45 PM EDT Office Visit [facility] Gynecologic Oncology - [place] [address] [place] [address] Santana Garcia MD [address] [place], [place] [id number] [facility] Gynecologic Oncology - [place] Start: 03-20-2025 Referral to service [facility] Start: 03-18-2025 Patient discharge [facility] Start: 03-11-2025 Following clinical p athway protocol [facility] Start: 03-11-2025 Catheterization of vein [facility] Start: 03-06-2025 Recommendation to co ntinue with treatment [facility] Start: 03-06-2025 Referral to service [facility] Start: 03-06-2025 Urinary bladder training [facility] Start: 03-06-2025 Admission procedure [facility] Start: 03-06-2025 Measuring intake and output [facility] Start: 03-06-2025 Patient referral to dietitian [facility] Start: 03-06-2025 Referral to occupati onal therapist [facility] Start: 03-06-2025 Vital signs measurements [facility] Start: 03-06-2025 End: 03-06-2025 [facility] Start: 03-05-2025 Cltx post hip arthrp dislc w/o anes TREAT HIP DISLOCATION [facility] Start: 02-19-2025 Acid Fast Bacilli Culture Acid Fast Bacilli Culture [facility] Start: 02-19-2025 Acid Fast Bacilli Smear Acid F ast Bacilli Smear [facility] Start: 02-19-2025 Fungal Culture Fungal Culture [facility] Start: 02-19-2025 Acid fast bacilli culture [facility] Start: 12-17-2024 End: 12-17-2024 Patient encounter procedure 12/17/2024 10:45 AM EDT Consult [facility] Gynecologic Oncology - [place] [address] [place] [id number] Santana Garcia MD [address] [place], [place] [id number] [facility] Gynecologic Oncology - [place] Start: 12-06-2024 End: 09-07-2025 US Pelvis transvaginal US pelvis transvaginal Imaging Routine Pelvic mass in female Expected: 12/06/2024, Expires: 09/07/2025 [facility] Work Phone: Comment on above: Expected: 12/06/2024 , Expires: 09/07/2025 Start: 05-06-2024 COVID-19 Vaccine () COVID-19 Vaccine () [facility] Start: 12-13-2023 Patient discharge [facility] Start: 12-13-2023 Referral to service [facility] Start: 12-13-2023 [facility] Start: 12-12-2023 [facility] Start: 12-10-2023 End: 12-11-2023 [facility] [facility] Start: 12-10-2023 Referral to occupati onal therapist [facility] Start: 12-10-2023 Referral to service [facility] Start: 12-10-2023 End: 12-10-2023 Following clinical pathway protocol [facility] Start: 12-10-2023 Ambulation without limitation [facility] Start: 12-10-2023 Assessment of risk o f venous thromboembolism [facility] Start: 12-10-2023 Insertion of cathete r into peripheral vein [facility] Start: 12-10-2023 Measuring intake and output [facility] Start: 12-10-2023 Providing care accor ding to standard [facility] Start: 12-10-2023 Referral to gastroenterology service [facility] Start: 12-10-2023 Computed tomography of abdomen and pelvis with contrast CTA Abd/Pelvis W/WO Contrast [facility] Start: 12-10-2023 CT Abdomen and Pelvis W [facility] Start: 12-10-2023 Hospital admission, emergency, from emergency room, medical nature [facility] Start: 12-10-2023 Verification routine [facility] Start: 12-10-2023 Admission procedure [facility] Start: 12-10-2023 Patient referral to dietitian [facility] Start: 10-01-2022 Patient discharge [facility] Start: 10-01-2022 Referral to service [facility] Start: 10-01-2022 Referral to service [facility] Start: 10-01-2022 Referral to service [facility] Start: 09-30-2022 Application of intermittent pneumatic compression device [facility] Start: 09-30-2022 Following clinical p athway protocol [facility] Start: 09-30-2022 Anes arthroscopic to louisa shoulder replacement ANESTH SHOULDER REPLACEMENT [facility] Start: 09-30-2022 Arthroplasty glenohu meral joint total shoulder RECONSTRUCT SHOULDER JOINT [facility] Start: 09-30-2022 Injection aa&/strd brachial plexus NJX AA&/STRD BRCH PLXS IMG [facility] Start: 09-30-2022 Admission procedure [facility] Start: 09-30-2022 Ambulation therapy management [facility] Start: 09-30-2022 Application of device [facility] Start: 09-30-2022 Assessment of risk o f venous thromboembolism [facility] Start: 09-30-2022 Catheterization of vein [facility] Start: 09-30-2022 Following clinical p athway protocol [facility] Start: 09-30-2022 Incentive spirometry [facility] Start: 09-30-2022 Introduction of urin toña catheter [facility] Start: 09-30-2022 Measuring intake and output [facility] Start: 09-30-2022 Neurovascular assessment [facility] Start: 09-30-2022 Patient education [facility] Start: 09-30-2022 Procedure discontinued [facility] Start: 09-30-2022 Provision of activit y privileges [facility] Start: 09-30-2022 Referral to occupati onal therapist [facility] Start: 09-30-2022 Vital signs measurements [facility] Start: 09-30-2022 Wound care [facility] Start: 09-30-2022 [facility] Start: 09-30-2022 Medication education [facility] Start: 09-30-2022 [facility] Start: 09-05-2022 ADVANCE DIRECTIVE DISCUSSION ADVANCE DIRECTIVE DISCUSSION [facility] Start: 09-05-2022 DEPRESSION ASSESSMENT DEPRESSION ASS ESSMENT [facility] Start: 05-19-2022 [facility] Work Phone: Start: 08-05-2021 COVID-19 VACCINE (4 - Booster for Pfizer series) COVID-19 VACCINE (4 - Booster for Pfizer series) [facility] Start: 2017 RSV Immunization for Adults (1 - 1-dose 75+ series) RSV Immunization for Adults (1 - 1-dose 75+ series) [facility] Start: 08-04-2016 Pneumococcal Vaccine : 50+ Years (2 of 2 - PPSV23) Pneumococcal Vaccine: 50+ Years (2 of 2 - PPSV23) [facility] Start: 09-11-2015 Zoster Vaccines (2 of 3) Zoste r Vaccines (2 of 3) [facility] Start: 12-21-2007 BONE DENSITY BONE DENSITY [facility] Start: 12-21-2007 PNEUMOCOCCAL: 65+ (1 - PCV) PNEUMOCOCCAL: 65+ (1 - PCV) [facility] Start: 1992 SHINGRIX VACCINE (1 of 2) SEGURA GRIX VACCINE (1 of 2) [facility] Start: 1961 DTaP/Tdap/Td Vaccine s (1 - Tdap) DTaP/Tdap/Td Vaccines (1 - Tdap) [facility] Start: 1961 Urine microalbumin profile DTA P,TDAP,TD (1 - Tdap) [facility] Start: 1954 Depression Monitoring Depression Mon itoring [facility] Start: 1954 Depression Screening Depression Scre ening [facility] Start: 1942 Lipid panel Lipid Panel [facility] Start: 1940 Screening for osteoporosis Bone Dens ity Scan [facility] Acid fast bacilli culture [facility] End: 12-09-2023 ECG COMPLETE ECG COMPLETE ECG Routine Pre-op testing 1 Occurrences starting 12/08/2022 until 12/09/2023 [facility] Work Phone: Comment on above: 1 Occurrences starti ng 12/08/2022 until 12/09/2023 Fungus identified in Unspecified specimen by Culture [facility] Mycobacterium sp identified in Unspecified specimen by Organism specific culture [facility] Patient Education [facility] Work Phone: Patient referral [facility] Work Phone: [facility] Immunizations Immunization Date Immunization Notes Care Provider Ethan rangel 06-12-2024 influenza, high dose seasonal, preservative-free Dr. Rosaura Peck MD Work Phone: [facility] 06-12-2024 influenza virus vaccine, unspecified formulation Santana Garcia MD Work Phone: [facility] 06-29-2023 influenza, injectabl e, quadrivalent, preservative free Dr. Rosaura Peck MD Work Phone: [facility] 06-25-2022 influenza, injectabl e, quadrivalent, preservative free Dr. Rosaura Peck Work Phone: [facility] 06-25-2022 influenza, seasonal, injectable [facility] 07-15-2021 influenza, injectabl e, quadrivalent, preservative free Dr. Rosaura Peck MD Work Phone: [facility] 06-10-2021 Covid (Pfizer) Dr. Rosaura porter MD Work Phone: [facility] 11-19-2020 Covid (Pfizer) Dr. Rosaura porter MD Work Phone: [facility] 10-29-2020 Covid (Pfizer) Dr. Rosaura porter MD Work Phone: [facility] 06-04-2020 influenza, injectabl e, quadrivalent, preservative free Dr. Rosaura Peck MD Work Phone: [facility] 07-16-2019 influenza, injectabl e, quadrivalent, preservative free Dr. Rosaura Peck MD Work Phone: [facility] 06-22-2018 influenza, injectabl e, quadrivalent, preservative free Dr. Rosaura Peck MD Work Phone: [facility] 06-23-2017 influenza, injectabl e, quadrivalent, preservative free Dr. Rosaura Peck MD Work Phone: [facility] 06-22-2016 influenza, injectabl e, quadrivalent, preservative free Dr. Rosaura Peck MD Work Phone: [facility] 08-04-2015 pneumococcal conjuga te vaccine, [address] Rosaura Peck MD Work Phone: [facility] 07-17-2015 zoster vaccine, live Dr. Connor Peck MD Work Phone: [facility] 06-17-2015 influenza, injectabl e, quadrivalent, preservative free Dr. Rosaura Peck MD Work Phone: [facility] Payers Date Payer Category Payer Self-pay [id number] 2016 Medicare supplementa l policy (as second payer) [employer] MED[employer] SUPPLEMENT Member Subscriber Plan / Payer (Effective 2016-Present) Name: May Leonard Relation to Subscriber: Self Name: May Leonard Payer ID: [id number] (NAIC) Type: Commercial Address: [place] [id number] 2016 Private Health Insurance [id number] .[id number] 2016 Private Health Insurance [id number] 2007 Medicare [id number] .[id number] 2007 Medicare [id number] 1940 Unknown [id number] 2.840.1.820814.3.579 .2.627 1940 Unknown [id number] .840.1.207869.3.579 .2.627 1942 Unknown [id number] .0.1.281646.3.579 .2.627 1940 Unknown [id number] ..1.503627.3.579 .2.627 Unknown [id number] 2.16.840.1.897500.3.579 .2.462 Unknown [id number] 2.16.840.1.156671.3.579 .2.462 Unknown [id number] 2.16.840.1.825786.3.579 .2.462 Unknown [id number] 2.16.840.1.288316.3.579 .2.462 Unknown [id number] 2.16.840.1.596132.3.579 .2.462 Unknown [id number] 2.16.840.1.032111.3.579 .2.462 Unknown [id number] 2.840.1.659651.3.579 .2.462 Unknown [id number] 2.840.1.354221.3.579 .2.462 Unknown [id number] 2.840.1.437443.3.579 .2.462 Unknown [id number] 2.840.1.844223.3.579 .2.462 Unknown [id number] 2.840.1.788329.3.579 .2.462 Unknown [id number] 2.840.1.553886.3.579 .2.462 Unknown [id number] 2.840.1.017741.3.579 .2.462 Unknown [id number] 2.840.1.724503.3.579 .2.462 Unknown [id number] 2.840.1.366419.3.579 .2.462 Unknown [id number] 2.16.840.1.088935.3.579 .2.462 Unknown [id number] 2.16.840.1.516417.3.579 .2.462 Unknown [id number] 2.16.840.1.010660.3.579 .2.462 Unknown [id number] 2.840.1.489380.3.579 .2.462 Unknown [id number] 2.840.1.206214.3.579 .2.462 Unknown [id number] 2.840.1.472758.3.579 .2.462 Unknown [id number] 2.16840.1.593189.3.579 .2.462 Unknown [id number] 2.840.1.979557.3.579 .2.462 Unknown [id number] 2.840.1.419403.3.579 .2.462 Unknown [id number] 2.840.1.499399.3.579 .2.462 Unknown [id number] 2.840.1.138320.3.579 .2.462 Unknown [id number] 2.840.1.406365.3.579 .2.462 Unknown [id number] 2.840.1.857173.3.579 .2.462 Unknown [id number] .840.1.392717.3.579 .2.462 Unknown [id number] 2.840.1.637718.3.579 .2.462 Unknown [id number] 2.840.1.286260.3.579 .2.462 Unknown [id number] .840.1.298143.3.579 .2.462 Unknown [id number] .840.1.562283.3.579 .2.462 Unknown [id number] .840.1.068305.3.579 .2.462 Unknown [id number] 2.840.1.503245.3.579 .2.462 Unknown [id number] 2.840.1.367179.3.579 .2.462 Unknown [id number] 2.840.1.622039.3.579 .2.462 Unknown [id number] 2.16840.1.104387.3.579 .2.462 Unknown [id number] 2.16.840.1.366982.3.579 .2.462 Unknown [id number] 2.16.840.1.697768.3.579 .2.462 Unknown [id number] 2.16.840.1.682302.3.579 .2.462 Unknown [id number] 2.840.1.112787.3.579 .2.462 Social History Date Type Detail Facility Start: 10-23-2021 End: 12-10-2023 Tobacco smoking status [facility] Unknown if ever smoked [facility] Start: 1940 Sex Assigned At Female [facility] Start: 12-08-2022 End: 04-30-2025 Tobacco smoking status MDIS Ex-smoker [facility] End: 09-05-1959 History of tobacco use Current smoker [facility] End: 09-05-1959 History of tobacco use Cigarette Smoker [facility] Start: 12-08-2022 End: 09-07-2024 Tobacco use and exposure Smokeless tobacco non-user [facility] Start: 12-09-2022 End: 09-07-2024 Alcohol intake Current drinker of alcohol (finding) [facility] Start: 12-08-2022 [facility] Start: 1940 Sex Assigned At Not on file [facility] Tobacco smoking status [facility] Start: 09-07-2024 History of Social function [facility] Start: 09-07-2024 Tobacco use panel [facility] Start: 09-07-2024 Alcohol [facility] Start: 02-11-2023 End: 06-21-2024 Sex Female (finding) [facility] NEGATED: Highlighted row [facility] Medical Equipment Procedure Code Equipment Code Equipment Original Text Equipment Identifier Dates HUMERAL STEM SHORT FDA Start: 09-30-2022 PERFORM PERIPHER AL SCREW FDA Start: 09-30-2022 PERFORM PERIPHER AL SCREWS FDA Start: 09-30-2022 PERIPHEAL SCREW FDA Start: 09-30-2022 PRIMARY REVERSED GLENOID FDA Start: 09-30-2022 REVERSED INSERT HUMERAL SYSTEM FDA Start: 09-30-2022 STANDARD GLENOSPHERE FDA Star t: 09-30-2022 HUMERAL STEM SHORT FDA Start: 09-30-2022 PERFORM PERIPHER AL SCREW FDA Start: 09-30-2022 PERFORM PERIPHER AL SCREWS FDA Start: 09-30-2022 PERIPHEAL SCREW FDA Start: 09-30-2022 PRIMARY REVERSED GLENOID FDA Start: 09-30-2022 REVERSED INSERT HUMERAL SYSTEM FDA Start: 09-30-2022 STANDARD GLENOSPHERE FDA Star t: 09-30-2022 HUMERAL STEM SHORT FDA Start: 09-30-2022 PERFORM PERIPHER AL SCREW FDA Start: 09-30-2022 PERFORM PERIPHER AL SCREWS FDA Start: 09-30-2022 PERIPHEAL SCREW FDA Start: 09-30-2022 PRIMARY REVERSED GLENOID FDA Start: 09-30-2022 REVERSED INSERT HUMERAL SYSTEM FDA Start: 09-30-2022 STANDARD GLENOSPHERE FDA Star t: 09-30-2022 HUMERAL STEM SHORT FDA Start: 09-30-2022 PERFORM PERIPHER AL SCREW FDA Start: 09-30-2022 PERFORM PERIPHER AL SCREWS FDA Start: 09-30-2022 PERIPHEAL SCREW FDA Start: 09-30-2022 PRIMARY REVERSED GLENOID FDA Start: 09-30-2022 REVERSED INSERT HUMERAL SYSTEM FDA Start: 09-30-2022 STANDARD GLENOSPHERE FDA Star t: 09-30-2022 HUMERAL STEM SHORT FDA Start: 09-30-2022 PERFORM PERIPHER AL SCREW FDA Start: 09-30-2022 PERFORM PERIPHER AL SCREWS FDA Start: 09-30-2022 PERIPHEAL SCREW FDA Start: 09-30-2022 PRIMARY REVERSED GLENOID FDA Start: 09-30-2022 REVERSED INSERT HUMERAL SYSTEM FDA Start: 09-30-2022 STANDARD GLENOSPHERE FDA Star t: 09-30-2022 Femur Rodding Intramedullary Unknown 02/12/23 Unknown Unknown FDA Start: 02-12-2023 Femur Rodding Intramedullary Unknown 02/12/23 Unknown Unknown FDA Start: 02-12-2023 Femur Rodding Intramedullary Unknown 02/12/23 Unknown Unknown FDA Start: 02-12-2023 HUMERAL STEM SHORT FDA Start: 09-30-2022 PERFORM PERIPHER AL SCREW FDA Start: 09-30-2022 PERFORM PERIPHER AL SCREWS FDA Start: 09-30-2022 PERIPHEAL SCREW FDA Start: 09-30-2022 PRIMARY REVERSED GLENOID FDA Start: 09-30-2022 REVERSED INSERT HUMERAL SYSTEM FDA Start: 09-30-2022 STANDARD GLENOSPHERE FDA Star t: 09-30-2022 HUMERAL STEM SHORT FDA Start: 09-30-2022 PERFORM PERIPHER AL SCREW FDA Start: 09-30-2022 PERFORM PERIPHER AL SCREWS FDA Start: 09-30-2022 PERIPHEAL SCREW FDA Start: 09-30-2022 PRIMARY REVERSED GLENOID FDA Start: 09-30-2022 REVERSED INSERT HUMERAL SYSTEM FDA Start: 09-30-2022 STANDARD GLENOSPHERE FDA Star t: 09-30-2022 HUMERAL STEM SHORT FDA Start: 09-30-2022 PERFORM PERIPHER AL SCREW FDA Start: 09-30-2022 PERFORM PERIPHER AL SCREWS FDA Start: 09-30-2022 PERIPHEAL SCREW FDA Start: 09-30-2022 PRIMARY REVERSED GLENOID FDA Start: 09-30-2022 REVERSED INSERT HUMERAL SYSTEM FDA Start: 09-30-2022 STANDARD GLENOSPHERE FDA Star t: 09-30-2022 HUMERAL STEM SHORT FDA Start: 09-30-2022 PERFORM PERIPHER AL SCREW FDA Start: 09-30-2022 PERFORM PERIPHER AL SCREWS FDA Start: 09-30-2022 PERIPHEAL SCREW FDA Start: 09-30-2022 PRIMARY REVERSED GLENOID FDA Start: 09-30-2022 REVERSED INSERT HUMERAL SYSTEM FDA Start: 09-30-2022 STANDARD GLENOSPHERE FDA Star t: 09-30-2022 HUMERAL STEM SHORT FDA Start: 09-30-2022 PERFORM PERIPHER AL SCREW FDA Start: 09-30-2022 PERFORM PERIPHER AL SCREWS FDA Start: 09-30-2022 PERIPHEAL SCREW FDA Start: 09-30-2022 PRIMARY REVERSED GLENOID FDA Start: 09-30-2022 REVERSED INSERT HUMERAL SYSTEM FDA Start: 09-30-2022 STANDARD GLENOSPHERE FDA Star t: 09-30-2022 HUMERAL STEM SHORT FDA Start: 09-30-2022 PERFORM PERIPHER AL SCREW FDA Start: 09-30-2022 PERFORM PERIPHER AL SCREWS FDA Start: 09-30-2022 PERIPHEAL SCREW FDA Start: 09-30-2022 PRIMARY REVERSED GLENOID FDA Start: 09-30-2022 REVERSED INSERT HUMERAL SYSTEM FDA Start: 09-30-2022 STANDARD GLENOSPHERE FDA Star t: 09-30-2022 HUMERAL STEM SHORT FDA Start: 09-30-2022 PERFORM PERIPHER AL SCREW FDA Start: 09-30-2022 PERFORM PERIPHER AL SCREWS FDA Start: 09-30-2022 PERIPHEAL SCREW FDA Start: 09-30-2022 PRIMARY REVERSED GLENOID FDA Start: 09-30-2022 REVERSED INSERT HUMERAL SYSTEM FDA Start: 09-30-2022 STANDARD GLENOSPHERE FDA Star t: 09-30-2022 HUMERAL STEM SHORT FDA Start: 09-30-2022 PERFORM PERIPHER AL SCREW FDA Start: 09-30-2022 PERFORM PERIPHER AL SCREWS FDA Start: 09-30-2022 PERIPHEAL SCREW FDA Start: 09-30-2022 PRIMARY REVERSED GLENOID FDA Start: 09-30-2022 REVERSED INSERT HUMERAL SYSTEM FDA Start: 09-30-2022 STANDARD GLENOSPHERE FDA Star t: 09-30-2022 HUMERAL STEM SHORT FDA Start: 09-30-2022 PERFORM PERIPHER AL SCREW FDA Start: 09-30-2022 PERFORM PERIPHER AL SCREWS FDA Start: 09-30-2022 PERIPHEAL SCREW FDA Start: 09-30-2022 PRIMARY REVERSED GLENOID FDA Start: 09-30-2022 REVERSED INSERT HUMERAL SYSTEM FDA Start: 09-30-2022 STANDARD GLENOSPHERE FDA Star t: 09-30-2022 HUMERAL STEM SHORT FDA Start: 09-30-2022 PERFORM PERIPHER AL SCREW FDA Start: 09-30-2022 PERFORM PERIPHER AL SCREWS FDA Start: 09-30-2022 PERIPHEAL SCREW FDA Start: 09-30-2022 PRIMARY REVERSED GLENOID FDA Start: 09-30-2022 REVERSED INSERT HUMERAL SYSTEM FDA Start: 09-30-2022 STANDARD GLENOSPHERE FDA Star t: 09-30-2022 HUMERAL STEM SHORT FDA Start: 09-30-2022 PERFORM PERIPHER AL SCREW FDA Start: 09-30-2022 PERFORM PERIPHER AL SCREWS FDA Start: 09-30-2022 PERIPHEAL SCREW FDA Start: 09-30-2022 PRIMARY REVERSED GLENOID FDA Start: 09-30-2022 REVERSED INSERT HUMERAL SYSTEM FDA Start: 09-30-2022 STANDARD GLENOSPHERE FDA Star t: 09-30-2022 HUMERAL STEM SHORT FDA Start: 09-30-2022 PERFORM PERIPHER AL SCREW FDA Start: 09-30-2022 PERFORM PERIPHER AL SCREWS FDA Start: 09-30-2022 PERIPHEAL SCREW FDA Start: 09-30-2022 PRIMARY REVERSED GLENOID FDA Start: 09-30-2022 REVERSED INSERT HUMERAL SYSTEM FDA Start: 09-30-2022 STANDARD GLENOSPHERE FDA Star t: 09-30-2022 HUMERAL STEM SHORT FDA Start: 09-30-2022 PERFORM PERIPHER AL SCREW FDA Start: 09-30-2022 PERFORM PERIPHER AL SCREWS FDA Start: 09-30-2022 PERIPHEAL SCREW FDA Start: 09-30-2022 PRIMARY REVERSED GLENOID FDA Start: 09-30-2022 REVERSED INSERT HUMERAL SYSTEM FDA Start: 09-30-2022 STANDARD GLENOSPHERE FDA Star t: 09-30-2022 HUMERAL STEM SHORT FDA Start: 09-30-2022 PERFORM PERIPHER AL SCREW FDA Start: 09-30-2022 PERFORM PERIPHER AL SCREWS FDA Start: 09-30-2022 PERIPHEAL SCREW FDA Start: 09-30-2022 PRIMARY REVERSED GLENOID FDA Start: 09-30-2022 REVERSED INSERT HUMERAL SYSTEM FDA Start: 09-30-2022 STANDARD GLENOSPHERE FDA Star t: 09-30-2022 HUMERAL STEM SHORT FDA Start: 09-30-2022 PERFORM PERIPHER AL SCREW FDA Start: 09-30-2022 PERFORM PERIPHER AL SCREWS FDA Start: 09-30-2022 PERIPHEAL SCREW FDA Start: 09-30-2022 PRIMARY REVERSED GLENOID FDA Start: 09-30-2022 REVERSED INSERT HUMERAL SYSTEM FDA Start: 09-30-2022 STANDARD GLENOSPHERE FDA Star t: 09-30-2022 HUMERAL STEM SHORT FDA Start: 09-30-2022 PERFORM PERIPHER AL SCREW FDA Start: 09-30-2022 PERFORM PERIPHER AL SCREWS FDA Start: 09-30-2022 PERIPHEAL SCREW FDA Start: 09-30-2022 PRIMARY REVERSED GLENOID FDA Start: 09-30-2022 REVERSED INSERT HUMERAL SYSTEM FDA Start: 09-30-2022 STANDARD GLENOSPHERE FDA Star t: 09-30-2022 HUMERAL STEM SHORT FDA Start: 09-30-2022 PERFORM PERIPHER AL SCREW FDA Start: 09-30-2022 PERFORM PERIPHER AL SCREWS FDA Start: 09-30-2022 PERIPHEAL SCREW FDA Start: 09-30-2022 PRIMARY REVERSED GLENOID FDA Start: 09-30-2022 REVERSED INSERT HUMERAL SYSTEM FDA Start: 09-30-2022 STANDARD GLENOSPHERE FDA Star t: 09-30-2022 HUMERAL STEM SHORT FDA Start: 09-30-2022 PERFORM PERIPHER AL SCREW FDA Start: 09-30-2022 PERFORM PERIPHER AL SCREWS FDA Start: 09-30-2022 PERIPHEAL SCREW FDA Start: 09-30-2022 PRIMARY REVERSED GLENOID FDA Start: 09-30-2022 REVERSED INSERT HUMERAL SYSTEM FDA Start: 09-30-2022 STANDARD GLENOSPHERE FDA Star t: 09-30-2022 HUMERAL STEM SHORT FDA Start: 09-30-2022 PERFORM PERIPHER AL SCREW FDA Start: 09-30-2022 PERFORM PERIPHER AL SCREWS FDA Start: 09-30-2022 PERIPHEAL SCREW FDA Start: 09-30-2022 PRIMARY REVERSED GLENOID FDA Start: 09-30-2022 REVERSED INSERT HUMERAL SYSTEM FDA Start: 09-30-2022 STANDARD GLENOSPHERE FDA Star t: 09-30-2022 HUMERAL STEM SHORT FDA Start: 09-30-2022 PERFORM PERIPHER AL SCREW FDA Start: 09-30-2022 PERFORM PERIPHER AL SCREWS FDA Start: 09-30-2022 PERIPHEAL SCREW FDA Start: 09-30-2022 PRIMARY REVERSED GLENOID FDA Start: 09-30-2022 REVERSED INSERT HUMERAL SYSTEM FDA Start: 09-30-2022 STANDARD GLENOSPHERE FDA Star t: 09-30-2022 Femur Rodding Intramedullary Unknown 02/12/23 Unknown Unknown FDA Start: 02-12-2023 Femur Rodding Intramedullary Unknown 02/12/23 Unknown Unknown FDA Start: 02-12-2023 Femur Rodding Intramedullary Unknown 02/12/23 Unknown Unknown FDA Start: 02-12-2023 Goals Date Patient Goal Desired Activity /State Functional Status Date Assessment Result Facility 03-21-2025 Functional status Activity Abili ty With Assist of 2 [facility] Work Phone: 03-20-2025 Functional status Ambulates;Bedside Commo de [facility] Work Phone: 03-19-2025 Functional status Tolerates Activity Fair [facility] Work Phone: 12-13-2023 Functional status Activity Abili ty With Assist of 1 [facility] Work Phone: 12-12-2023 Functional status Ambulates [facility] Work Phone: 10-01-2022 Functional status Chair [facility] Work Phone: Mental Status Date Assessment Result Facility 04-30-2025 Cognitive function Awake;Alert;A ppropriate;Fol lows Commands [facility] Work Phone: 03-21-2025 Cognitive function Voice/Name [facility] Work Phone: 03-05-2025 Cognitive function Awake;Alert;A ppropriate;Fol lows Commands [facility] Work Phone: 12-13-2023 Cognitive function Voice/Name [facility] Work Phone: 10-01-2022 Cognitive function Voice/Name [facility] Work Phone: 05-19-2022 Cognitive function Voice/Name [facility] Work Phone: Clinical Notes 09-30-2022 to 04-30-2025 Santana Garcia MD - 04/24/2025 1:30 PM EDTTelephone Encounter - Amber Maldonado RN - 03/29/2025 10:45 AM EDTTelephone Encounter - Amber Maldonado RN - 03/29/2025 10:45 AM EDT Note Date & Type Note Facility 04-30-2025 Radiology Diagnostic study note [facility] Imaging Services [address] [place] [address] [id number] Hip Min 2 Views (Portable) MR#: [id number] Acct: [id number] Name: MAY LEONARD Rep #: [id number] : 1940 F [id number] From: Luis Alfredo Vieira MD PCP: Dr. Rosaura Peck MD Status: RE G ER Study:Hip Min 2 Views (Portable) Date of Exam : 04/30/25 Exam# [id number] Ordering Dr: Glenn Dutton MD PROCEDURE: HIP MIN 2 VIEWS (PORTABLE) 04/30/2025 REASON FOR EXAM: POST REDUCTION TECHNIQUE: HIP MIN 2 VIEWS (PORTABLE) Laterality: Right hip COMPARISON: Prior study done earlier in the day. FINDINGS: There is satisfactory reduction of the right prosthetic hip joint. RAD/Hip Min 2 Views (Portable) IMPRESSION: Satisfactory reduction of the right prosthetic hip joint. Reading Location: [facility] CC: Dr. Glenn Dutton MD; Dr. Rosaura Peck MD ~ Birthing Nurse: Signed [facility] 04-30-2025 Radiology Diagnostic study note [facility] Services [address] [place], [place] [id number] HIP, UNI W/ Pelvis 2-3 Views MR#: [id number] Acct: [id number] Name: AMY LEONARD Rep #: [id number] : 1940 F 84 From: Luis Alfredo Vieira MD PCP: Dr. Rosaura Peck MD Status: ND E ER Study:HIP, UNI W/ Pelvis 2-3 Views Date of Ex am: 04/30/25 Exam# [id number] Ordering Dr: Glenn Dutton MD PROCEDURE: HIP, UNI W/ PELVIS 2-3 VIEWS 04/30/2025 REASON FOR EXAM: Right hip pain. TECHNIQUE: HIP, UNI W/ PELVIS 2-3 VIEWS Laterality: Right hip COMPARISON: Prior study dated March 05, 2025. FINDINGS: Bones: No fracture seen. Joints: There is evidence of superior dislocation of the prosthetic right hip joint. Soft tissues: Soft tissue swelling. 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 No fracture seen. Reading Location: [facility] CC: Dr. Glenn Dutton MD; Dr. Rosaura Pcek MD ~ Birthing Nurse: Signed [facility] 04-30-2025 Hospital Discharge instructions Additional Instructions Keep your T ROM brace on your right knee locked out at 0 flexion, 0 extension until cleared by your orthopedic surgeon. You are to follow-up with them this . Call the office for an appointment as you may need a hip brace. Use your walker for ambulation or keep your right knee straight even in the wheelchair. Return with new or worsening symptoms. [facility] Work Phone: 04-24-2025 History of Present illness Narrative CC: Enlarging pelvic mass HPI: May Leonard is a pleasant 84 y.o. female who presented in consultation from Dr. Newsome for further evaluation and management of persistent left adnexal mass along with abdominal pain and an enhancing liver lesion in the right lobe which has increased slightly in size in September 2024. She initiallypresented with an episode of colitis and underwent a CT scan that showed a left adnexal mass. She is undergone several imaging studies since April which does show a 7 to 8 cm benign-appearing left adnexal mass. A liver lesion was also noted but the patient states a recent MRI was done and she was told by her guardian family member that the liver lesion is benign. Patient states the left pelvic mass causes no symptoms, denies any pelvic pressure or pain problems with bowel or bladder habits. Denies any vaginal bleeding. He is here today to discuss options for a incidentally found cystic left ovarian mass. Patient underwent repeat ultrasound at [facility] which unfortunately shows growth in the size of the lesion. Patient presented back to the office in December 2024 to discuss the slight growth in the left adnexal mass. At that time she elected for conservative observation. 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 The neoplasm is exactly the same size as ultrasound in December. Patient presents today from a senior living facility in a wheelchair as well as with a full leg brace. She has had a fracture of her leg and is awaiting possibility of surgical repair. She denies any signs or symptoms from the cyst denies any abdominal pain or distention is eating well. Medical History[1] Surgical History[2] Social History[3] Current Medications[4] Review of Systems Naproxen and Prednisone There were no vitals taken for this visit. Physical Exam Reviewed several ultrasound reports. Reviewed the CT scan with the patient showing a very benign-appearing cyst Assessment: Stable benign-appearing ovarian cyst in an elderly lady with multiple medical comorbidities. Plan: We discussed surgical removal versus close observation. Most likely this is a benign cyst and I feel that surgical intervention would not be necessary. The patient is in agreement as multiple medical comorbidities and the risk of surgery would not be insignificant. I have recommended that if she was started noticing any symptoms from the mass such as abdominal pain or discomfort bloating she should give me a call. Otherwise I did recommend follow-up with Dr. Eduardo Woods on an annual basis. [1] Past Medical History: Diagnosis Date Anxiety Arthritis Back pain Constipation Hypertension Hyponatremia Leg cramps Lower gastrointestinal bleed Migraine [2] Past Surgical History: Procedure Laterality Date CATARACT EXTRACTION Bilateral COLONOSCOPY REVISE TOTAL HIP REPLACEMENT (HISTORICAL) TOTAL SHOULDER ARTHROPLASTY [3] Social History Socioeconomic History Marital status: Unknown Tobacco Use Smoking status: Former Types: Cigarettes Smokeless tobacco: Never Substance and Sexual Activity Alcohol use: Yes Comment: social Drug use: Never Social Drivers of Health Food Insecurity: No Food Insecurity (02/21/2024) Received from [facility] Hunger Vital Sign Worried About Running Out of Food in the Last Year: Never true Ran Out of Food in the Last Year: Never true Transportation Needs: No Transportation Needs (02/21/2024) Received from [facility] PRAPARE - Transportation Lack of Transportation (Medical): No Lack of Transportation (Non-Medical): No Housing Stability: Unknown (02/21/2024) Received from [facility] Housing Stability Vital Sign Unable to Pay for Housing in the Last Year: No Unstable Housing in the Last Year: No [4] Current Outpatient Medications Medication Sig Dispense Refill acetaminophen (Tylenol) 500 MG tablet Take 1 tablet by mouth daily. calcium carbonate 260 MG chewable tablet Chew daily. celecoxib (CeleBREX) 200 MG capsule Take 1 capsule every day by oral route. dicyclomine (Bentyl) 10 MG capsule Take 10 mg by mouth 4 times daily. Docusate Sodium (DSS) 100 MG capsule Take 100 mg by mouth every 12 hours as needed. DULoxetine (Cymbalta) [address] capsule lisinopril 20 MG tablet Take 1 tablet by mouth daily. mesalamine (Lialda) 1.2 g EC tablet Take 1,200 mg by mouth daily (with breakfast). Do not crush, chew, or split. oxyCODONE (Oxy-IR) 5 MG immediate release capsule Take 5 mg by mouth. pantoprazole (ProtoNix) 40 MG injection Infuse 40 mg into a venous catheter. polyethylene glycol, PEG, 3350 (Miralax) 17 g packet Take 17 g by mouth daily. primidone (Mysoline) 50 MG tablet Take by mouth. sennosides (Senokot) 8.6 MG tablet Take 2 tablets by mouth daily at bedtime. No current facility-administered medications for this visit. documented in this encounter [facility] 04-19-2025 Radiology Diagnostic study note [facility] Imaging Services [address], [place] [address] Pelvic w/ Transvaginal MR#: [id number] Acct: [id number] Name: MAY LEONARD Rep #: [id number] : 1940 F 84 From: Luis Alfredo Vieira MD PCP: Dr. Rosaura Peck MD Status: RE G CLI Study:Pelvic w/ Transvaginal Date of Exam: 04/18/25 Exam# [id number] Ordering Dr: Santana Garcia MD PROCEDURE: PELVIC W/ TRANSVAGINAL 04/18/2025 REASON FOR EXAM: PELVIC MASS TECHNIQUE: PELVIC W/ TRANSVAGINAL COMPARISON: Prior study dated July 04, 2024. FINDINGS: Measurements: Uterus: 5.5 cm x 3.4 cm x 1.4 cm with a volume of 13.6 mL Endometrial Thickness: 1.3 mm Right Ovary: Not visualized. Left Ovary: Not visualized. Uterus: Normal size, myometrial echotexture, and contour. Nabothian cyst. Endometrium: Unremarkable. Right ovary: Not visualized. Left ovary: Not visualized. Other: Stable 9.8 cm x 8.5 cm 6.8 cm cyst in the midline of the pelvis. US/Pelvic w/ Transvaginal IMPRESSION: Essentially stable 9.8 cm x 8.5 cm 6.8 cm cyst in the midline of the pelvis. Reading Location: [facility] CC: Dr. Rosaura Peck MD; Dr. Santana Garcia MD ~ Birthing Nurse: Signed [facility] 03-29-2025 Telephone encounter Note Spoke to patient and she states she does not have sxs of a uti and that she has been drinking too much prior to bed and she drank less last night and it was better. Reminded of appointment on 04/10@[address] Garcia. She is aware that it should not be a problem for her to wear her leg brace when in surgery because it is below the knee but she will discuss with Dr. Garcia at her visit. She injured her hip and is not supposed to bend her knee. [facility] 03-29-2025 Miscellaneous Notes Spoke to patient and she states she does not have sxs of a uti and that she has been drinking too much prior to bed and she drank less last night and it was better. Reminded of appointment on 04/10@[address] Garcia. She is aware that it should not be a problem for her to wear her leg brace when in surgery because it is below the knee but she will discuss with Dr. Garcia at her visit. She injured her hip and is not supposed to bend her knee. Patient would like to know if she can still have surgery with an immobilizer on her leg. Mentioned she's also having increase in need to urinate and some pressure. Please contact when able, thank you Pt is having more urinary frequency with cyst. Pt would like to have cyst and both ovaries removed. March 20 pt has shoulder injection with going under anesthesia. Pt states April would be fine to schedule. Pt returned phone call. Please call back when you can. Thank you Called pt and left vm. Pt would like to discuss removal of cyst and ovary per her last appt conversation with Dr Garcia. Pt concerned about cyst. Please call to discuss. Thank you documented in this encounter [facility] 03-29-2025 Telephone encounter Note Patient would like to know if she can still have surgery with an immobilizer on her leg. Mentioned she's also having increase in need to urinate and some pressure. Please contact when able, thank you [facility] 03-21-2025 Hospital Discharge instructions Additional Instructions Patient needs a wheelchair: The patient has a mobility limitation that cannot be sufficiently resolved by using a cane or walker. Use of a w/c will improve the participation in ADL's on a regular basis, in the home. Date of Discharge: 03/21/25 [facility] Work Phone: 03-20-2025 Progress note Note Date/Time March 20, 2025 10:23am [facility] Medical Records Department [address] [place] [address] Progress Note 03/20/25 0835 MR#: [id number] Acct: [id number] Name: MAY LEONARD Rep #:[id number] : 1940 84 From: Justina Perea DO PCP: Dr. Rosaura Peck MD Status:AD M IN Location: [place] [address] Subjective Subjective Afebrile Heart rate has ranged from 52-68 over the past 24 hours. The blood pressure has ranged from 137/61 to 144/71 over the past 24 hours.Goal is < 140/80. Maintaining appropriate oxygen saturation on room air. All lab from this morning was personally reviewed. White blood cell count is normal at 6.7. The hemoglobin is stable at 10.4 and platelets are within normallimits. Sodium is 131 (down from 136 on 03/11........salt tabs were discontinued)and the potassium is 4.9. The BUN is 31 with a creatinine of 0.73. Has been onfluid restriction. Will need to restart salt tabs BID Slept well last night. No complaints. Objective Data Objective Data Vital Signs: Vital Signs Temp Pulse Resp BP Pulse Ox O2 Del Method FiO2 97.4 F L 52 L 15 137/61 H 96 Room Air 21 03/20/25 06:00 03/20/25 06:00 03/20/25 06:00 03/20/25 06:00 03/20/25 06:00 03/20/25 06:00 03/07/25 21:52 Oxygen Delivery Method Room Air Weight: 112 lb 14.027 oz Body Mass Index (BMI) 19.3 Intake & Output: Intake and Output for Last 24 Hours 03/18/25 03/19/25 03/20/25 23:59 23:59 23:59 Intake Total 470 / 470 1180 / 1180 Output Total 875 / 875 1150 / 1300 700 / 700 Balance -405 / -405 30 / -120 -700 / -700 Lab / Micro Data 03/20/25 05:08 03/20/25 05:08 Labs: Laboratory Results - last 24 hr 03/20/25 05:08: WBC 6.7, RBC 3.17 L, Hgb 10.4 L, Hct 30.1 L, MCV 95.0, MCH 32.8 H, MCHC 34.6, RDW Std Deviation 53.1 H, RDW Coeff of Cas 15.4 H, Plt Count 443, MPV 8.7, Sodium 131 L, Potassium 4.9, Chloride 96 L, Carbon Dioxide 24.6, Anion Gap 10, BUN 31 H, Creatinine 0.73, Estim Creat Clear Calc 43.82 L, Est GFR (MDRD) Non-Af 83, BUN/Creatinine Ratio 42.4 H, Glucose 88, Calcium 9.2 Micro: Microbiology 03/08/25 18:25 Stool Stool Occult Blood (TERRI) - Final Occult Blood Positive Physical Exam Const alert, oriented x3 and no apparent distress Resp normal respiratory effort Effort and Inspection: able to speak in complete sentences Auscultation: clear to auscultation bilaterally Cardio regular rate, regular rhythm and no gallops Cardio Narrative: No ectopy GI normal to inspection, nondistended, normoactive bowel sounds and soft to palpation Palpation: soft Extremity Extremity Narrative: Right leg immobilizer Skin no rashes or lesions noted General Skin Exam: no breakdown Psych Psych Narrative: much less anxious than at admission to rehab. Assessment & Plan Assessment/Plan (1) Debility: (2) Dislocation of right hip: QUALIFIERS: Qualified Code(s): S73.004D - Unspecified dislocation ofright hip, subsequent encounter (3) Iron deficiency anemia: QUALIFIERS: Iron deficiency anemia type: chronic blood loss Qualified Code(s): D50.0 - Iron deficiency anemia secondary to blood loss (chronic) (4) Heme positive stool: (5) Ischemic colitis: (6) Essential tremor: (7) Ovarian cyst, right: (8) Hyponatremia: (9) History of SIADH: (10) Depression: QUALIFIERS: Depression Type: unspecified Qualified Code(s): F32.A- Depression, unspecified (11) Anxiety: (12) Osteoarthritis: QUALIFIERS: Osteoarthritis location: multiple joints Osteoarthritis type: primary Qualified Code(s): M15.0 - Primary generalized (osteo)arthritis (13) Generalized weakness: (14) Hypertension: QUALIFIERS: Hypertension type: primary hypertension Qualified Code(s): I10 - Essential (primary) hypertension PLAN: Plan 1. Plan discharge to [facility] living tomorrow 2. Nursing will schedule a follow-up appointment with Dr. Gomez for right hipdislocation. Patient prefers to follow-up in [place] for this problem rather than following up with the orthopedic physician who did the hip surgery. 3. Restart salt tablets 1 g p.o. twice daily. Needs a BMP in 7 to 10 days. Charges/Coding Visit Charges Inpatient E&M: 24288 Subs Hosp L1 03/20/25 1023 <Electronically signed by Justina Perea DO> Justina Perea DO Cosigner Signature (if applicable): CC: ~ Signed [facility] Work Phone: 1(502) 706-967407-16-2025 Progress note [facility] Medical Records Department [address] [place] [address] Progress Note 03/20/25 0835 MR#: [id number] Acct: [id number] Name: MAY LEONARD Rep #:[id number] : 1940 84 From: Justina Perea DO PCP: Dr. Rosaura Peck MD Status:AD M IN Location: [place] [address] Subjective Subjective Afebrile Heart rate has ranged from 52-68 over the past 24 hours. The blood pressure has ranged from 137/61 to 144/71 over the past 24 hours.Goal is < 140/80. Maintaining appropriate oxygen saturation on room air. All lab from this morning was personally reviewed. White blood cell count is normal at 6.7. The hemoglobin is stable at 10.4 and platelets are within normallimits. Sodium is 131 (down from 136 on 03/11........salt tabs were discontinued)and the potassium is 4.9. The BUN is 31 with a creatinine of 0.73. Has been onfluid restriction. Will need to restart salt tabs BID Slept well last night. No complaints. Objective Data Objective Data Vital Signs: Vital Signs Temp Pulse Resp BP Pulse Ox O2 Del Method FiO2 97.4 F L 52 L 15 137/61 H 96 Room Air 21 03/20/25 06:00 03/20/25 06:00 03/20/25 06:00 03/20/25 06:00 03/20/25 06:00 03/20/25 06:00 03/07/25 21:52 Oxygen Delivery Method Room Air Weight: 112 lb 14.027 oz Body Mass Index (BMI) 19.3 Intake & Output: Intake and Output for Last 24 Hours 03/18/25 03/19/25 03/20/25 23:59 23:59 23:59 Intake Total 470 / 470 1180 / 1180 Output Total 875 / 875 1150 / 1300 700 / 700 Balance -405 / -405 30 / -120 -700 / -700 Lab / Micro Data 03/20/25 05:08 03/20/25 05:08 Labs: Laboratory Results - last 24 hr 03/20/25 05:08: WBC 6.7, RBC 3.17 L, Hgb 10.4 L, Hct 30.1 L, MCV 95.0, MCH 32.8 H, MCHC 34.6, RDW Std Deviation 53.1 H, RDW Coeff of Cas 15.4 H, Plt Count 443, MPV 8.7, Sodium 131 L, Potassium 4.9, Chloride 96 L, Carbon Dioxide 24.6, Anion Gap 10, BUN 31 H, Creatinine 0.73, Estim Creat Clear Calc 43.82 L, Est GFR (MDRD) Non-Af 83, BUN/Creatinine Ratio 42.4 H, Glucose 88, Calcium 9.2 Micro: Microbiology 03/08/25 18:25 Stool Stool Occult Blood (TERRI) - Final Occult Blood Positive Physical Exam Const alert, oriented x3 and no apparent distress Resp normal respiratory effort Effort and Inspection: able to speak in complete sentences Auscultation: clear to auscultation bilaterally Cardio regular rate, regular rhythm and no gallops Cardio Narrative: No ectopy GI normal to inspection, nondistended, normoactive bowel sounds and soft to palpation Palpation: soft Extremity Extremity Narrative: Right leg immobilizer Skin no rashes or lesions noted General Skin Exam: no breakdown Psych Psych Narrative: much less anxious than at admission to rehab. Assessment & Plan Assessment/Plan (1) Debility: (2) Dislocation of right hip: QUALIFIERS: Qualified Code(s): S73.004D - Unspecified dislocation ofright hip, subsequent encounter (3) Iron deficiency anemia: QUALIFIERS: Iron deficiency anemia type: chronic blood loss Qualified Code(s): D50.0 - Iron deficiency anemia secondary to blood loss (chronic) (4) Heme positive stool: (5) Ischemic colitis: (6) Essential tremor: (7) Ovarian cyst, right: (8) Hyponatremia: (9) History of SIADH: (10) Depression: QUALIFIERS: Depression Type: unspecified Qualified Code(s): F32.A- Depression, unspecified (11) Anxiety: (12) Osteoarthritis: QUALIFIERS: Osteoarthritis location: multiple joints Osteoarthritis type: primary Qualified Code(s): M15.0 - Primary generalized (osteo)arthritis (13) Generalized weakness: (14) Hypertension: QUALIFIERS: Hypertension type: primary hypertension Qualified Code(s): I10 - Essential (primary) hypertension PLAN: Plan 1. Plan discharge to [facility] living tomorrow 2. Nursing will schedule a follow-up appointment with Dr. Gomez for right hipdislocation. Patientprefers to follow-up in [place] for this problem rather than following up with the orthopedic physician who did the hip surgery. 3. Restart salt tablets 1 g p.o. twice daily. Needs a BMP in 7 to 10 days. Charges/Coding Visit Charges Inpatient E&M: 23797 Subs Hosp L1 03/20/25 1023 Justina Perea DO Cosigner Signature (if applicable): CC: ~ Signed [facility]07-15-2025 Progress note Author Justina Perea [facility] Note Date/Time March 19, 2025 4:16 pm [facility] Medical Records Department [address] [place] [address] Progress Note 03/19/25 1204 MR#: [id number] Acct: [id number] Name: MAY LEONARD Rep #:[id number] : 1940 84 From: Justina Perea DO PCP: Dr. Rosaura Peck MD Status:AD M IN Location: [place] [address] Subjective Subjective Afebrile VSS - Maintaining appropriate oxygen saturation on RA Oral intake - FOOD good FLUIDS chronically poor -she is on 1200 cc a day fluid restriction but more often than not she drinks < 1,000 daily. Yesterday the intake was recorded at 470 for the day. Discussed with nursing - no problems that need addressed Reviewed the THERAPY notes Medication list reviewed. Tells me that the pain in the RLE is easier to tolerate now with wt bearing. She denies lightheadedness, chest pain, shortness of breath, palpitations, nausea/vomiting/abdominal pain, dysuria and calf tenderness. Sleeping well at night and has a good appetite. Very pleasant and outgoing. Seems calmer today......razia after we get talking and she is distracted. Objective Data Objective Data Vital Signs: Vital Signs Temp Pulse Resp BP Pulse Ox O2 Del Method FiO2 97 F L 61 16 144/67 H 99 Room Air 21 03/19/25 05:16 03/19/25 08:32 03/19/25 08:32 03/19/25 05:16 03/19/25 08:32 03/19/25 08:32 03/07/25 21:52 Oxygen Delivery Method Room Air Weight: 114 lb 10.246 oz Body Mass Index (BMI) 19.6 Intake & Output: Intake and Output for Last 24 Hours 03/17/25 03/18/25 03/19/25 23:59 23:59 23:59 Intake Total 1340 / 1340 470 / 470 160 / 160 Output Total 1275 / 1275 875 / 875 800 / 800 Balance 65 / 65 -405 / -405 -640 / -640 Lab / Micro Data 03/15/25 05:27 03/15/25 05:27 Micro: Microbiology 03/08/25 18:25 Stool Stool Occult Blood (TERRI) - Final Occult Blood Positive Physical Exam Const alert, oriented x3 and no apparent distress Resp normal respiratory effort, normal air movement, no retractions and no use of accessory muscles Effort and Inspection: able to speak in complete sentences Auscultation: clear to auscultation bilaterally Cardio regular rate, regular rhythm, S1 normal heart sound, S2 normal heart sound and no gallops Cardio Narrative: No ectopy GI normal to inspection, nondistended, normoactive bowel sounds and soft to palpation Palpation: soft Extremity Extremity Narrative: Right leg immobilizer Skin no rashes or lesions noted General Skin Exam: no breakdown Assessment & Plan Assessment/Plan (1) Debility: (2) Dislocation of right hip: QUALIFIERS: Qualified Code(s): S73.004D - Unspecified dislocation ofright hip, subsequent encounter (3) Iron deficiency anemia: QUALIFIERS: Iron deficiency anemia type: chronic blood loss Qualified Code(s): D50.0 - Iron deficiency anemia secondary to blood loss (chronic) (4) Heme positive stool: (5) Ischemic colitis: (6) Essential tremor: (7) Ovarian cyst, right: (8) Hyponatremia: (9) History of SIADH: (10) Depression: QUALIFIERS: Depression Type: unspecified Qualified Code(s): F32.A- Depression, unspecified (11) Anxiety: (12) Osteoarthritis: QUALIFIERS: Osteoarthritis location: multiple joints Osteoarthritis type: primary Qualified Code(s): M15.0 - Primary generalized (osteo)arthritis (13) Generalized weakness: (14) Hypertension: QUALIFIERS: Hypertension type: primary hypertension Qualified Code(s): I10 - Essential (primary) hypertension PLAN: Plan 1. Continue therapy 2. Plan discharge for , 03/21/2025 3. Check a CBC and BMP in the a.m. 4. Check orthostatic vital signs today - they were negative. Charges/Coding Visit Charges Inpatient E&M: 69885 Subs Hosp L1 03/19/25 1616 <Electronically signed by Justina Perea DO> Justina Perea DO Cosigner Signature (if applicable): CC: ~ Signed [facility] Work Phone: 1(579) 157-286407-15-2025 Progress note [facility] Medical Records Department [address] [place] [address] Progress Note 03/19/25 1204 MR#: [id number] Acct: [id number] Name: MAY LEONARD Rep #:[id number] : 1940 84 From: Justina Perea DO PCP: Dr. Rosaura Peck MD Status:AD M IN Location: [place] [address] Subjective Subjective Afebrile VSS - Maintaining appropriate oxygen saturation on RA Oral intake - FOOD good FLUIDS chronically poor -she is on 1200 cc a day fluid restriction but moreoften than not she drinks < 1,000 daily. Yesterday the intake was recorded at 470 for the day. Discussed with nursing - no problems that need addressed Reviewed the THERAPY notes Medication list reviewed. Tells me that the pain in the RLE is easier to tolerate now with wt bearing. She denies lightheadedness, chest pain, shortness of breath, palpitations, nausea/vomiting/abdominal pain, dysuria and calf tenderness. Sleeping well at night and has a good appetite. Very pleasant and outgoing. Seems calmer today......razia after we get talking and she is distracted. Objective Data Objective Data Vital Signs: Vital Signs Temp Pulse Resp BP Pulse Ox O2 Del Method FiO2 97 F L 61 16 144/67 H 99 Room Air 21 03/19/25 05:16 03/19/25 08:32 03/19/25 08:32 03/19/25 05:16 03/19/25 08:32 03/19/25 08:32 03/07/25 21:52 Oxygen Delivery Method Room Air Weight: 114 lb 10.246 oz Body Mass Index (BMI) 19.6 Intake & Output: Intake and Output for Last 24 Hours 03/17/25 03/18/25 03/19/25 23:59 23:59 23:59 Intake Total 1340 / 1340 470 / 470 160 / 160 Output Total 1275 / 1275 875 / 875 800 / 800 Balance 65 / 65 -405 / -405 -640 / -640 Lab / Micro Data 03/15/25 05:27 03/15/25 05:27 Micro: Microbiology 03/08/25 18:25 Stool Stool Occult Blood (TERRI) - Final Occult Blood Positive Physical Exam Const alert, oriented x3 and no apparent distress Resp normal respiratory effort, normal air movement, no retractions and no use of accessory muscles Effort and Inspection: able to speak in complete sentences Auscultation: clear to auscultation bilaterally Cardio regular rate, regular rhythm, S1 normal heart sound, S2 normal heart sound and no gallops Cardio Narrative: No ectopy GI normal to inspection, nondistended, normoactive bowel sounds and soft to palpation Palpation: soft Extremity Extremity Narrative: Right leg immobilizer Skin no rashes or lesions noted General Skin Exam: no breakdown Assessment & Plan Assessment/Plan (1) Debility: (2) Dislocation of right hip: QUALIFIERS: Qualified Code(s): S73.004D - Unspecified dislocation ofright hip, subsequent encounter (3) Iron deficiency anemia: QUALIFIERS: Iron deficiency anemia type: chronic blood loss Qualified Code(s): D50.0 - Iron deficiency anemia secondary to blood loss (chronic) (4) Heme positive stool: (5) Ischemic colitis: (6) Essential tremor: (7) Ovarian cyst, right: (8) Hyponatremia: (9) History of SIADH: (10) Depression: QUALIFIERS: Depression Type: unspecified Qualified Code(s): F32.A- Depression, unspecified (11) Anxiety: (12) Osteoarthritis: QUALIFIERS: Osteoarthritis location: multiple joints Osteoarthritis type: primary Qualified Code(s): M15.0 - Primary generalized (osteo)arthritis (13) Generalized weakness: (14) Hypertension: QUALIFIERS: Hypertension type: primary hypertension Qualified Code(s): I10 - Essential (primary) hypertension PLAN: Plan 1. Continue therapy 2. Plan discharge for , 03/21/2025 3. Check a CBC and BMP in the a.m. 4. Check orthostatic vital signs today - they were negative. Charges/Coding Visit Charges Inpatient E&M: 62794 Subs Hosp L1 03/19/25 1616 Justina Perea DO Cosigner Signature (if applicable): CC: ~ Signed [facility]07-14-2025 Progress note Author Justina Lewispavel [facility] Note Date/Time March 18, 2025 3:12 pm [facility] Medical Records Department [address] [place] [address] Progress Note 03/14/25 1028 MR#: [id number] Acct: [id number] Name: MAY LEONARD Rep #:[id number] 1 : 1940 84 From: Justina Perea DO PCP: Dr. Rosaura Peck MD Status:AD M IN Location: [place] [address] Subjective Subjective Afebrile Heart rate has ranged from 58-66 over the past 24 hours. Blood pressure has ranged from 139/62 to 161/74. Maintaining appropriate oxygen saturation on room air. Good appetite and fluid intake. Incontinent of stool yesterday. Has not been incontinent of urine. Hemoglobin A1c is 5.9. This is consistent with glucose intolerance. Chuyita tells me she is sleeping well at night and she has a good appetite. She denies lightheadedness, chest pain, shortness of breath, cough, nausea/vomiting/abdominal pain, dysuria and calf tenderness. She does complain of pain in the right lower extremity but it is tolerable and she feels it is adequately controlled. Objective Data Objective Data Vital Signs: Vital Signs Temp Pulse Resp BP Pulse Ox O2 Del Method FiO2 97.2 F L 64 18 139/62 H 93 Room Air 21 03/14/25 06:00 03/14/25 08:35 03/14/25 06:00 03/14/25 08:35 03/14/25 06:00 03/14/25 06:00 03/07/25 21:52 Oxygen Delivery Method Room Air Weight: 114 lb 10.246 oz Body Mass Index (BMI) 19.6 Intake & Output: Intake and Output for Last 24 Hours 03/12/25 03/13/2503/14/25 23:59 23:59 23:59 Intake Total 1342.75 / 1342.75 1497.5 / 1497.5 290 / 290 Output Total 500 / 500 700 / 700 600 / 600 Balance 842.75 / 842.75 797.5 / 797.5 -310 / -310 Lab / Micro Data 03/15/25 05:27 03/15/25 05:27 Labs: Laboratory Results - last 24 hr 03/14/25 08:37: Hemoglobin A1c 5.9 H Micro: Microbiology 03/08/25 18:25 Stool Stool Occult Blood (TERRI) - Final Occult Blood Positive Physical Exam Const alert, oriented x3 and no apparent distress General Appearance: cooperative HEENT Mouth: dry mucous membranes Resp normal respiratory effort and clear to auscultation bilaterally Effort and Inspection: Negative for tachypneic Cardio regular rate, regular rhythm and no gallops Cardio Narrative: No ectopy GI normal to inspection, nondistended, normoactive bowel sounds, soft to palpation and non-tender GI Narrative: No guarding with palpation Extremity no calf tenderness General Extremity: Negative for edema Skin Rashes: no rashes Psych Psych Narrative: Having some anxiety about leaving rehab and moving into [facility]. Worried about her cat and about the other people at [facility]. When she gets anxious the essential tremor is increased but when you are talking to her and she calms down the tremors almost completely disappear. Assessment & Plan Assessment/Plan (1) Debility: (2) Dislocation of right hip: QUALIFIERS: Qualified Code(s): S73.004D - Unspecified dislocation ofright hip, subsequent encounter (3) Iron deficiency anemia: QUALIFIERS: Iron deficiency anemia type: chronic blood loss Qualified Code(s): D50.0 - Iron deficiency anemia secondary to blood loss (chronic) (4) Heme positive stool: (5) Ischemic colitis: (6) Essential tremor: (7) Ovarian cyst, right: PLAN: She is to follow up at [facility] [place] from rehab. (8) Hyponatremia: (9) History of SIADH: (10) Depression: QUALIFIERS: Depression Type: unspecified Qualified Code(s): F32.A- Depression, unspecified (11) Anxiety: (12) Osteoarthritis: QUALIFIERS: Osteoarthritis location: multiple joints Osteoarthritis type: primary Qualified Code(s): M15.0 - Primary generalized (osteo)arthritis (13) Generalized weakness: (14) Hypertension: QUALIFIERS: Hypertension type: primary hypertension Qualified Code(s): I10 - Essential (primary) hypertension PLAN: Plan 1. Continue therapy 2. Planning discharge for , 03/21/2025 to [facility]. 3. Would benefit from psychotherapy following discharge. 4. Home health care for PT/OT at discharge 5. No changes to the drug regimen today. 6. Will need to follow-up at [facility] for ovarian mass/cyst 7. She would like to follow-up with an orthopedic physician in [place] rather than the physician who performed the ORIF of the right hip fracture in the past. She has seen Dr. Gomez before and would like to follow-up with him. Charges/Coding Visit Charges Inpatient E&M: 63174 Subs Hosp L2 03/18/25 1512 <Electronically signed by Justina Perea DO> Justina Perea DO Cosigner Signature (if applicable): CC: ~ Signed [facility] Work Phone: [phone]) 113-194807-14-2025 Progress note [facility] Medical Records Department [address] [place] [address] Progress Note 03/14/25 1028 MR#: [id number] Acct: [id number] Name: MAY LEONARD Rep #:[id number] 1 : 1940 84 From: Justina Perea DO PCP: Dr. Rosaura Peck MD Status:AD M IN Location: [place] [address] Subjective Subjective Afebrile Heart rate has ranged from 58-66 over the past 24 hours. Blood pressure has ranged from 139/62 to 161/74. Maintaining appropriate oxygen saturation on room air. Good appetite and fluid intake. Incontinent of stool yesterday. Has not been incontinent of urine. Hemoglobin A1c is 5.9. This is consistent with glucose intolerance. Chuyita tells me she is sleeping well at night and she has a good appetite. She denies lightheadedness, chest pain, shortness of breath, cough, nausea/vomiting/abdominal pain, dysuria and calf tenderness. She does complain of pain in the right lower extremity but it is tolerable and she feels it is huma quately controlled. Objective Data Objective Data Vital Signs: Vital Signs Temp Pulse Resp BP Pulse Ox O2 Del Method FiO2 97.2 F L 64 18 139/62 H 93 Room Air 21 03/14/25 06:00 03/14/25 08:35 03/14/25 06:00 03/14/25 08:35 03/14/25 06:00 03/14/25 06:00 03/07/25 21:52 Oxygen Delivery Method Room Air Weight: 114 lb 10.246 oz Body Mass Index (BMI) 19.6 Intake & Output: Intake and Output for Last 24 Hours 03/12/25 03/13/25 03/14/25 23:59 23:59 23:59 Intake Total 1342.75 / 1342.75 1497.5 / 1497.5 290 / 290 Output Total 500 / 500 700 / 700 600 / 600 Balance 842.75 / 842.75 797.5 / 797.5 -310 / -310 Lab / Micro Data 03/15/25 05:27 03/15/25 05:27 Labs: Laboratory Results - last 24 hr 03/14/25 08:37: Hemoglobin A1c 5.9 H Micro: Microbiology 03/08/25 18:25 Stool Stool Occult Blood (TERRI) - Final Occult Blood Positive Physical Exam Const alert, oriented x3 and no apparent distress General Appearance: cooperative HEENT Mouth: dry mucous membranes Resp normal respiratory effort and clear to auscultation bilaterally Effort and Inspection: Negative for tachypneic Cardio regular rate, regular rhythm and no gallops Cardio Narrative: No ectopy GI normal to inspection, nondistended, normoactive bowel sounds, soft to palpation and non-tender GI Narrative: No guarding with palpation Extremity no calf tenderness General Extremity: Negative for edema Skin Rashes: no rashes Psych Psych Narrative: Having some anxiety about leaving rehab and moving into [facility]. Worried about her cat and about the other people at [facility]. When she gets anxious the essential tremor is increased but when you are talking to her and she calms down the tremors almost completely disappear. Assessment & Plan Assessment/Plan (1) Debility: (2) Dislocation of right hip: QUALIFIERS: Qualified Code(s): S73.004D - Unspecified dislocation ofright hip, subsequent encounter (3) Iron deficiency anemia: QUALIFIERS: Iron deficiency anemia type: chronic blood loss Qualified Code(s): D50.0 - Iron deficiency anemia secondary to blood loss (chronic) (4) Heme positive stool: (5) Ischemic colitis: (6) Essential tremor: (7) Ovarian cyst, right: PLAN: She is to follow up at [facility] [place] from [place]hab. (8) Hyponatremia: (9) History of SIADH: (10) Depression: QUALIFIERS: Depression Type: unspecified Qualified Code(s): F32.A- Depression, unspecified (11) Anxiety: (12) Osteoarthritis: QUALIFIERS: Osteoarthritis location: multiple joints Osteoarthritis type: primary Qualified Code(s): M15.0 - Primary generalized (osteo)arthritis (13) Generalized weakness: (14) Hypertension: QUALIFIERS: Hypertension type: primary hypertension Qualified Code(s): I10 - Essential (primary) hypertension PLAN: Plan 1. Continue therapy 2. Planning discharge for , 03/21/2025 to [facility]. 3. Would benefit from psychotherapy following discharge. 4. Home health care for PT/OT at discharge 5. No changes to the drug regimen today. 6. Will need to follow-up at [facility] for ovarian mass/cyst 7. She would like to follow-up with an orthopedic physician in [place] rather than the physician who performed the ORIF of the right hip fracture in the past. She has seen Dr. Gomez before and would like to follow-up with him. Charges/Coding Visit Charges Inpatient E&M: 64911 [facility] Hosp L2 03/18/25 1512 Justina Perea DO Cosigner Signature (if applicable): CC: ~ Signed [facility]07-14-2025 [facility]07-09-2025 Progress note Author Justina Perea [facility] Note Date/Time March 13, 2025 11:40 am [facility] Medical Records Department [address] [place] [address] Progress Note 03/13/25 0851 MR#: [id number] Acct: [id number] Name: MAY LEONARD Rep #:[id number] : 1940 84 From: Justina Perea DO PCP: Dr. Rosaura Peck MD Status:AD M IN Location: [place] [address] Subjective Subjective Afebrile Heart rate over the past 24 hours has ranged from 58-66. Blood pressure has ranged from 114/81 to 164/81. Blood pressure tends to be highest when she firstgets up in the morning. Throughout the day it is well-controlled. Maintaining appropriate oxygen saturation on room air Good appetite, sleeping well at night. She did better with fluid intake yesterday and fluid balance was +843. Having regular bowel movements. Since we talked about her anxiety on Tuesday and started Remeron the tremors havebeen better. She is sleeping well at night and feels refreshed in the AM. She tell me that her pain is well controlled. Denies calf pain, CP, SOB. abd pain. Objective Data Objective Data Vital Signs: Vital Signs Temp Pulse Resp BP Pulse Ox O2 Del Method FiO2 97.9 F 58 L 16 159/54 H 95 Room Air 21 03/13/25 05:51 03/13/25 05:51 03/13/25 05:51 03/13/25 05:51 03/13/25 05:51 03/13/25 05:51 03/07/25 21:52 Oxygen Delivery Method Room Air Weight: 114 lb 10.246 oz Body Mass Index (BMI) 19.6 Intake & Output: Intake and Output for Last 24 Hours 03/11/25 03/12/25 03/13/25 23:59 23:59 23:59 Intake Total 681.75 / 681.75 1342.75 / 1342.75 460 / 460 Output Total 600 / 600 500 / 500 400 / 400 Balance 81.75 / 81.75 842.75 / 842.75 60 / 60 Lab / Micro Data 03/11/25 05:29 03/11/25 05:29 Micro: Microbiology 03/08/25 18:25 Stool Stool Occult Blood (TERRI) - Final Occult Blood Positive Physical Exam Const alert, oriented x3 and no apparent distress General Appearance: cooperative HEENT Mouth: dry mucous membranes Resp normal respiratory effort and clear to auscultation bilaterally Effort and Inspection: Negative for tachypneic Cardio regular rate, regular rhythm and no gallops Cardio Narrative: No ectopy GI normal to inspection, nondistended, normoactive bowel sounds, soft to palpation and non-tender GI Narrative: No guarding with palpation Extremity no calf tenderness General Extremity: Negative for edema Skin Rashes: no rashes Psych Psych Narrative: More calm now than she was at admission to rehab. Good appetite and intake and she is sleeping very well at night. Essential tremor is much less. Cooperative. Never refuses therapy and she is looking forward to [place]. Assessment & Plan Assessment/Plan (1) Dislocation of right hip: QUALIFIERS: Qualified Code(s): S73.004D - Unspecified dislocation ofright hip, subsequent encounter (2) Liver lesion: (3) Hypertension: QUALIFIERS: Hypertension type: primary hypertension Qualified Code(s): I10 - Essential (primary) hypertension (4) GERD (gastroesophageal reflux disease): QUALIFIERS: Esophagitis presence: esophagitis presence not specified Qualified Code(s): K21.9 - Gastro-esophageal reflux disease without esophagitis (5) Chronic constipation: (6) History of ischemic colitis: (7) Fracture, intertrochanteric, right femur: QUALIFIERS: Fracture type: closed Qualified Code(s): S72.141D - Displaced intertrochanteric fracture of right femur, subsequent encounter for closed fracture with routine healing (8) Anxiety: (9) Post-op pain: (10) Back pain: QUALIFIERS: Back pain location: low back pain Chronicity: chronic Back pain laterality: unspecified Sciatica presence: without sciatica Qualified Code(s): M54.50 - Low back pain, unspecified; G89.29 - Other chronic pain (11) Insomnia: QUALIFIERS: Insomnia type: due to medical condition Qualified Code(s): 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 (15) Ovarian cyst, right: PLAN: [facility] Will need to reschedule herappt since she was in the hospital at the time it was scheduled. (16) Essential tremor: (17) Heme positive stool: PLAN: Has UC and she is on a NSAID. Continue Protonix. No diarrhea/abd pain, visible blood in the stool and no mucous in the stool. Will continue to follow up with [place]haveri at [place]. PLAN: Plan 1. Continue therapy 2. Arthritis compounded cream twice daily to both shoulders 3. Recheck a BMP and HH on Tuesday 4. Continue duloxetine 30 mg daily in the a.m. and Remeron 7.5 mg at at bedtime. Charges/Coding Visit Charges Inpatient E&M: 82554 Subs Hosp L1 03/13/25 1140 <Electronically signed by Justina Perea DO> Justina Perea DO Cosigner Signature (if applicable): CC: ~ Signed [facility] Work Phone: 1(454) 204-575007-09-2025 Progress note [facility] Medical Records Department [address] [place] [address] Progress Note 03/13/25 0851 MR#: [id number] Acct: [id number] Name: MAY LEONARD Rep #:[id number] 7 : 1940 84 From: Justina Perea DO PCP: Dr. Rosaura Peck MD Status:AD M IN Location: [place] [address] Subjective Subjective Afebrile Heart rate over the past 24 hours has ranged from 58-66. Blood pressure has ranged from 114/81 to 164/81. Blood pressure tends to be highest when she firstgets up in the morning. Throughout the day it is well-controlled. Maintaining appropriate oxygen saturation on room air Good appetite, sleeping well at night. She did better with fluid intake yesterday and fluid balance was +843. Having regular bowel movements. Since we talked about her anxiety on Tuesday and started Remeron the tremors havebeen better. She issleeping well at night and feels refreshed in the AM. She tell me that her pain is well controlled.Denies calf pain, CP, SOB. abd pain. Objective Data Objective Data Vital Signs: Vital Signs Temp Pulse Resp BP Pulse Ox O2 Del Method FiO2 97.9 F 58 L 16 159/54 H 95 Room Air 21 03/13/25 05:51 03/13/25 05:51 03/13/25 05:51 03/13/25 05:51 03/13/25 05:51 03/13/25 05:51 03/07/25 21:52 Oxygen Delivery Method Room Air Weight: 114 lb 10.246 oz Body Mass Index (BMI) 19.6 Intake & Output: Intake and Output for Last 24 Hours 03/11/25 03/12/25 03/13/25 23:59 23:59 23:59 Intake Total 681.75 / 681.75 1342.75 / 1342.75 460 / 460 Output Total 600 / 600 500 / 500 400 / 400 Balance 81.75 / 81.75 842.75 / 842.75 60 / 60 Lab / Micro Data 03/11/25 05:29 03/11/25 05:29 Micro: Microbiology 03/08/25 18:25 Stool Stool Occult Blood (TERRI) - Final Occult Blood Positive Physical Exam Const alert, oriented x3 and no apparent distress General Appearance: cooperative HEENT Mouth: dry mucous membranes Resp normal respiratory effort and clear to auscultation bilaterally Effort and Inspection: Negative for tachypneic Cardio regular rate, regular rhythm and no gallops Cardio Narrative: No ectopy GI normal to inspection, nondistended, normoactive bowel sounds, soft to palpation and non-tender GI Narrative: No guarding with palpation Extremity no calf tenderness General Extremity: Negative for edema Skin Rashes: no rashes Psych Psych Narrative: More calm now than she was at admission to rehab. Good appetite and intake and she is sleeping verywell at night. Essential tremor is much less. Cooperative. Never refuses therapy and she is lookingforward to [place]. Assessment & Plan Assessment/Plan (1) Dislocation of right hip: QUALIFIERS: Qualified Code(s): S73.004D - Unspecified dislocation ofright hip, subsequent encounter (2) Liver lesion: (3) Hypertension: QUALIFIERS: Hypertension type: primary hypertension Qualified Code(s): I10 - Essential (primary) hypertension (4) GERD (gastroesophageal reflux disease): QUALIFIERS: Esophagitis presence: esophagitis presence not specified Qualified Code(s): K21.9 - Gastro-esophageal reflux disease without esophagitis (5) Chronic constipation: (6) History of ischemic colitis: (7) Fracture, intertrochanteric, right femur: QUALIFIERS: Fracture type: closed Qualified Code(s): S72.141D - Displaced intertrochanteric fracture of right femur, subsequent encounter for closed fracture with routine healing (8) Anxiety: (9) Post-op pain: (10) Back pain: QUALIFIERS: Back pain location: low back pain Chronicity: chronic Back pain laterality: unspecifiedSciatica presence: without sciatica Qualified Code(s): M54.50 - Low back pain, unspecified; G89.29 - Other chronic pain (11) Insomnia: QUALIFIERS: Insomnia type: due to medical condition Qualified Code(s): 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 (15) Ovarian cyst, right: PLAN: [facility]. Will need to reschedule herappt since she was in the hospital at the time it was scheduled. (16) Essential tremor: (17) Heme positive stool: PLAN: Has UC and she is on a NSAID. Continue Protonix. No diarrhea/abd pain, visible blood in the stool and no mucous in the stool. Will continue to follow up with Dr. Jhaveri at [place]. PLAN: Plan 1. Continue therapy 2. Arthritis compounded cream twice daily to both shoulders 3. Recheck a BMP and HH on Tuesday 4. Continue duloxetine 30 mg daily in the a.m. and Remeron 7.5 mg at at bedtime. Charges/Coding Visit Charges Inpatient E&M: 48789 [facility] Hosp L1 03/13/25 1140 Justina Perea DO [facility] Signature (if applicable): CC: ~ Signed [facility]07-08-2025 Progress note Author Carly Quiroz [facility] Note Date/Time March 12, 2025 6:19p m [facility] Medical Records Department [address] [place] [address] Progress Note 03/11/25 0848 MR#: [id number] Acct: [id number] Name: MAY LEONARD Rep #:[id number] : 1940 84 From: Carly BLAIR PCP: Dr. Rosaura Peck MD Status:AD M IN Location: [place] [address] Documented by User: JOHNNIE Nguyen 03/11/25 14:48 Subjective Subjective HPI: MAY HORACIO, is a very pleasant 84-year-old female with past medical history of hypertension, GERD, chronic constipation, anxiety, liver lesion, right hip prosthesis, arthritis, ulcerative colitis, irritable bowel syndrome and right hip dislocation. Per chart review I did note that the patient did have a right hip repair 2 years ago. Last year she did have a fracture repair of the same hip. Incidental finding of a right lobe liver lesion in which patient states it is benign on 01/09/2025. Patient was seen by her orthopedic physician on 03/04/2025 and there was no dislocation noted. I then met with the patient at bedside. Patient is alert and oriented x 4. She is very pleasant and conversant. She did work with PT/OT this morning and is sitting in a bedside recliner. Patient states that on 03/04 in the late afternoon she bent to90 degrees to clean up from her cat and felt a shift in her right hip. She thenstates that she had excruciating pain. She then states that she sat on the commode a little bit later in which she felt a huge "pop." And felt that her hip "popped back into place." And had a relief of her pain. She then went to bed without incidence. Upon waking in the morning, patient states excruciating pain to the right hip and was unable to walk. She then called her caregiver,, Chuyita, in which she did arrive intake patient to the emergency department. In the emergency department at [facility], patient was found to have a right hip dislocation. First reduction was unsuccessful and required a second reduction which was successful. They then placed her in a knee immobilizer to help her tokeep her leg straight with instructions to follow-up with her orthopedic physician. She was then discharged home. Upon arrival at home patient's son-in-law, Sergei, had go difficulty caring for his [id number]-eu-blt whom lives alone at baseline. He then contacted the inpatient rehab unit for admission forpain control and PT/OT services to assist with mobilization and to get her back to her baseline with a goal of returning home independently. At baseline the patient does utilize a walker. Patient does endorse that her son-in-law Sergei Boo is her surrogate decision maker in the event that she is unable to make decisions for herself. She also endorses that her CODE STATUS is full code. I did verify the patient's home medications with her. Patient does have some hyponatremia this morning with sodium of 128 and a chloride of 95. Patient states that she does have chronic hyponatremia. She does have history of iron deficiency anemia. Her current hemoglobin is 10.4 andhematocrit is 30.1. Platelets are within normal limits at 295. She currently denies abdominal pain and does take MiraLAX for her chronic constipation. Patient does acknowledge that she has difficulty sleeping at night and we did discuss utilization of melatonin which she is open to. We also discussed her anxiety and that she "used to take" lorazepam 0.5 mg p.o. twice daily as needed for anxiety. I did provide some teaching on deep breathing exercises which the patient stated appreciation. According to her orders patient's Ativan has been discontinued thus I have discontinued her medication here. Will consider addition of Xanax if needed, going forward. Reported by nursing overnight that the patient did have some snoring. Patient states that she does sleep flat on her back because of previous injuries to bilateral shoulders. We did discuss the possibility of propping up slightly during sleep to assist with snoring. Will do an overnight trend of her pulse ox. Patient does state that she currently has pain of 6/10 we did discuss schedulingher Tylenol every 8 hours to assist with better pain control. She does take oxycodone 5 mg p.o. as needed every 6 hours at home. I have scheduled her oxycodone 5 mg p.o. every 8 hours in order to assist with pain control over the next couple of days and then will transition to as needed. Patient does have anOARRS score of 40. All questions the patient had were answered. Dr. Perea was updated on patient's status. Vital signs stable. The pt was independently interviewed and examined. Since the Tylenol and Oxycodone have been scheduled the pain is better controlled. 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 In November 2024 her sodium was 133 and at that time the BUN was 21 with a creatinine of 0.57. I suspect she received intravenous fluids in the emergency room because her BUN is now down to 13 and her creatinine is stable at0.58. The sodium is dropped to 128. She is not on fluid restriction and is noton salt tablets. Iron studies in September 2024 showed an iron saturation of 20.4which is normal. Her ferritin was 103. Iron studies in June 2024 were consistent with iron deficiency. She is chronically on Protonix. she has a hx of UC and has had heme + stools in the past. She has seen Dr. Boogie for low sodium in the past and was told to limit fluid intake. She had IV fluids in the ED and now she is volume overloaded. She sleptbetter last night. We discussed AL and she is OK with going to AL at [place]. Her nephew and her brother have toured a few places and they think she needs AL. She tells me that she has been having trouble cooking for herself and that even taking care of the cat has become too much for her. She had her last hip surgery with Dr. Callahan 1 year ago and it was a THR. She does not know if it was a posterior or anterior approach. She saw Dr. Callahan not too long ago and told him it sometimes seemed to pop out and back in but, hedid not feel at that time that it was a problem. She has a hx of chronic back pain and sees Dr. Guzmán for pain management. She has numbness in her feet. She sometimes uses a walker and sometimes a cane. She has been living independently up until now and has an aide that comes in 3 times a week[place] [address] cc/day to her diet. Start salt tabs 1 GM BID, 1 dose Lasix today. Recheck a BMP Tuesday. Check iron studies. Check a Hemoccult stool. 03/11/25: Iron studies showed iron of 20, TIBC of 188, iron saturation 11.0 and unsaturated 168. P.o. iron 325 mg ordered daily. I did update the patient about her iron studies in which she stated that she was on iron supplementation previously but that her primary care provider took her off of it. Patient states that she feels that her pain is being well-controlled with scheduled painmedications in which she is very grateful. She states that her current pain is 5/10 and that she has a "high pain tolerance" as she does have chronic pain at baseline. She does state that her bilateral shoulders are more sore than usual but states that she feels that this is from leaning on the walker. May endorses that she slept very well last night and did not need the trazodone. She did take melatonin. She states that her Cymbalta has been helping with paincontrol and sleep as well. We did have an extensive discussion about how she feels her stay at [facility] is going and she is very pleased with the care that she is receiving. She states that she is open to SNF placement at [facility] once she is able to decrease the amount of PT/OT that is needed. We did discuss long-term goals and she stated that she is open to assisted living once she has completed all of her therapies but that she does not feel that she is ready for right now because she feels that she is requiringmore intensive therapies than she would receive from an outpatient status. She is hoping that she can have "another 10 days at [facility] for therapies." Will address during IDT rounds today. All questions were answered. Discussion with Dr. Perea and pt about insomia. Decision to add low dose of Remeron in addition to her low dose Cymbalta to assist with sleep hygiene. updated. Objective Data Objective Data Constitutional Constitutional: Reports as per HPI, body ache(s) and difficulty sleeping Eyes Eyes: Reports systems reviewed and no addt'l complaints, except as documented ENT HEENT: Reports systems reviewed and no addt'l complaints, except as documented Cardiovascular Cardiovascular: Reports systems reviewed and no addt'l complaints, except as documented Respiratory/Chest Respiratory/Chest: Reports none Gastrointestinal Gastrointestinal: Reports as per HPI and constipation is resolving Genitourinary Genitourinary: Reports dribbling Musculoskeletal Musculoskeletal: Reports as per HPI, back pain, difficulty walking but improving, extremity pain, joint pain to R hip and bilateral shoulders , joint stiffness,limited range of motion, muscle cramps, muscle spasms, tremors and other Details: Right hip pain Integumentary Integumentary: Reports none Neurologic Neurologic: Reports tremor(s) Psychiatric Psychiatric: Reports anxiety but is improved today Endocrine Endocrinology: Reports none Hematologic/Lymphatic Hematologic/Lymphatic: Reports anemia Allergic/Immunologic Allergic/Immunologic: Reports GI upset w/certain foods Vital Signs: Vital Signs Temp Pulse Resp BP Pulse Ox O2 Del Method FiO2 98.3 F 58 L 17 141/69 H 96 Room Air 21 03/11/25 06:00 03/11/25 06:00 03/11/25 06:00 03/11/25 06:00 03/11/25 06:00 03/11/25 06:00 03/07/25 21:52 Oxygen Delivery Method Room Air Weight: 111 lb 12.39 oz Body Mass Index (BMI) 19.1 Intake & Output: Intake and Output for Last 24 Hours 03/09/25 03/10/25 03/11/25 23:59 23:59 23:59 Intake Total 600 / 600 1200 / 1200 220 / 220 Output Total 950 / 950 850 / 850 400 / 400 Balance -350 / -350 350 / 350 -180 / -180 Lab / Micro Data Attestation: I reviewed the patient's lab results. Lab results narrative: Improvement of patient's sodium from 128 to now 136. Chloride is now 102 from 95. Potassium is within normal limits. She did have a slight elevation in her BUN at 27. Iron studies showed iron of 20, TIBC of 188, iron saturation 11.0 and unsaturated 168. Patient is receiving iron 325 mg p.o. daily 03/11/25 05:29 03/11/25 05:29 Labs: Laboratory Results - last 24 hr 03/11/25 05:29: Hgb 10.0 L, Hct 30.1 L, Sodium 136, Potassium 5.0, Chloride 102,Carbon Dioxide 26.8, Anion Gap 7, BUN 27 H, Creatinine 0.56 L, Estim Creat ClearCalc 43.39 L, Est GFR (MDRD) Non-Af 91, BUN/Creatinine Ratio 47.4 H, Glucose 108H, Calcium 8.9 Micro: Microbiology 03/08/25 18:25 Stool Stool Occult Blood (TERRI) - Final Occult Blood Positive Physical Exam Const oriented x3 and no apparent distress General Appearance: cooperative HEENT normocephalic Eyes PERRL Neck Neck Narrative: Patient states that she has been having some neck pain but states that she has chronic arthritis and this is not new for her. Resp normal respiratory effort, normal air movement and clear to auscultation bilaterally Cardio Cardio Narrative: Patient does have an irregular heart rhythm. This is not new for her and is chronic. Peripheral Pulses: pulses 2+ throughout GI normal to inspection, nondistended, normoactive bowel sounds GI Narrative: Patient denies any blood in stool. Patient had a bowel movement this a.m. whichwas reported to be brown and formed Extremity normal capillary refill Extremity Narrative: Right knee immobilizer in place. Patient does endorse having pain to the right hip but rates it 5/10. Skin General Skin Exam: no breakdown Neuro CN's II-XII intact bilaterally, no focal motor deficits and no sensory deficits noted Psych thought process normal Psych Narrative: Patient denies depression. She currently denies anxiety. She does state that she is utilizes the deep breathing exercises that were taught to her last week for episodes of anxiety. Appearance: appropriate Assessment & Plan Assessment/Plan (1) Dislocation of right hip: QUALIFIERS: Qualified Code(s): S73.004D - Unspecified dislocation ofright hip, subsequent encounter PLAN: 1. Continue with therapy 2. PT OT evaluation and treatment 3. Scheduled Tylenol and oxycodone for pain management (2) Liver lesion: PLAN: 1. Continue to monitor 2. Recommend follow-up with GI (3) Hypertension: QUALIFIERS: Hypertension type: primary hypertension Qualified Code(s): I10 - Essential (primary) hypertension PLAN: 1. Vital signs every shift 2. Lisinopril 20 mg p.o. daily (4) GERD (gastroesophageal reflux disease): QUALIFIERS: Esophagitis presence: esophagitis presence not specified Qualified Code(s): K21.9 - Gastro-esophageal reflux disease without esophagitis PLAN: 1. Protonix 40 mg p.o. daily (5) Chronic constipation: PLAN: 1. Monitor for constipation 2. Pema glycol 17 g p.o. daily (6) History of ischemic colitis: PLAN: 1. Continue to monitor 2. Patient is familiar with dietary restrictions to prevent pain (7) Fracture, intertrochanteric, right femur: QUALIFIERS: Fracture type: closed Qualified Code(s): S72.141D - Displaced intertrochanteric fracture of right femur, subsequent encounter for closed fracture with routine healing PLAN: 1. Continue to monitor 2. Resolved. 3. Right knee immobilizer (8) Anxiety: PLAN: 1. Continue to monitor 2. Teaching of deep breathing exercises and relaxation 3. Duloxetine 30 mg p.o. daily 4.. Consider Xanax 0.125 mg p.o. as needed for anxiety in the event patient hasuncontrolled anxiety not relieved with deep breathing and relaxation exercises. (9) Post-op pain: PLAN: 1. Scheduled acetaminophen 1000 mg p.o. every 8 hours 2. Scheduled oxycodone 5 mg p.o. every 8 hours. Will change to as needed once pain is controlled. (10) Back pain: QUALIFIERS: Back pain laterality: unspecified Back pain location:low back pain Chronicity: chronic Sciatica presence: without sciatica Qualified Code(s): M54.50 - Low back pain, unspecified; G89.29 - Other chronic pain PLAN: 1. Continue to monitor. 2. 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 Teaching of relaxation exercises 2. Melatonin 3 mg p.o. at bedtime 3. Trazodone discontinued 4. Low dose Remeron 7.5mg PO QHS ordered. 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 [place] fluid restriction of 1200 cc daily. 2. Start sodium chloride tabs 1 g p.o. twice daily. 3. Lasix 40 mg x 1. 4. Recheck a BMP on Tuesday showed normalization of sodium at 136, and normalization of chloride at 102 (13) Hyponatremia: PLAN: Resolving (14) History of iron deficiency anemia: PLAN: Check iron studies. Showed iron low at 20, TIBC low at 188, iron saturation 11.0 low, unsaturated low at 168. Ferrous sulfate 325 mg p.o. daily Monitor for bleeding Iron sucrose 100 mg IV x 1 now Iron sucrose 200 mg IV 03/12/2025 Iron sucrose 200 mg IV 03/13/2025 (15) Ovarian cyst, right: (16) Essential tremor: PLAN: Plan (1) Dislocation of right hip: QUALIFIERS: Qualified Code(s): S73.004D - Unspecified dislocation of right hip, subsequent encounter *Continue with therapies *Fall preacutions (2) Liver lesion: * Follow-up as needed with GI (3) Hypertension: QUALIFIERS: Hypertension type: primary hypertension Qualified Code(s): I10 - Essential (primary) hypertension *Continue home lisinopril *Vital signs every shift (4) GERD (gastroesophageal reflux disease): QUALIFIERS: Esophagitis presence: esophagitis presence not specified QualifiedCode(s): K21.9 - Gastro-esophageal reflux disease without esophagitis *Continue PPI (5) Chronic constipation: *Continue with bowel regimen (6) History of ischemic colitis: *Closely monitor (7) Fracture, intertrochanteric, right femur: QUALIFIERS: Fracture type: closed Qualified Code(s): S72.141D - Displaced intertrochanteric fracture of right femur, subsequent encounter for closed fracture with routine healing *Continue with therapies *Pain control *Utilization of knee immobilizer (8) Anxiety: *Deep breathing exercises *Continue to monitor (9) Post-op pain: *Continue with scheduled pain medications Tylenol and oxycodone. *Continue to monitor for pain (10) Back pain: QUALIFIERS: Back pain laterality: unspecified Back pain location: low back pain Chronicity: chronic Sciatica presence: without sciatica Qualified Code(s): M54.50 - Low back pain, unspecified; G89.29 - Other chronic pain *Continue with scheduled pain medications: Tylenol and oxycodone *Continue to monitor for pain (11) Insomnia: QUALIFIERS:Insomnia type: due to medical condition Qualified Code(s): G47.01 - Insomnia due to medical condition *Melatonin 3 mg p.o. 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 [place] fluid restriction of 1200 cc daily. Start sodium chloride tabs 1 g p.o. twice daily. Lasix 40 mg x 1. BMP done this AM (13) Hyponatremia: (Resolving) *Fluid restriction of 1200 mL/day *Sodium chloride tablet 1 g p.o. twice daily *BMP on 03/11 showed improvement of sodium (14) History of iron deficiency anemia: PLAN: Check iron studies. Check a Hemoccult stool. *Ferrous sulfate 325 mg p.o. daily Charges/Coding Visit Charges Inpatient E&M: 82835 Init Hosp L2 Documented by User: Dr. Justina Perea, DO 03/12/25 18:19 Subjective Subjective Afebrile VSS - Maintaining appropriate oxygen saturation on RA Oral intake - FOOD good FLUIDS fair at best Discussed with nursing - no problems that need addressed Reviewed the THERAPY notes Medication list reviewed. Chuyita feels her pain is adequately controlled at this time. She complains of increased anxiety at times and when her anxiety increases she has increased essential tremor. She is sleeping better at night than she was at admission to rehab. She denies cephalgia, vertigo, lightheadedness, chest pain, shortness ofbreath, cough, nausea/vomiting/abdominal pain, dysuria and calf tenderness. Objective Data Lab / Micro Data 03/11/25 05:29 03/11/25 05:29 Assessment & Plan Assessment/Plan (1) Dislocation of right hip: QUALIFIERS: Qualified Code(s): S73.004D - Unspecified dislocation ofright hip, subsequent encounter (2) Liver lesion: (3) Hypertension: QUALIFIERS: Hypertension type: primary hypertension Qualified Code(s): I10 - Essential (primary) hypertension (4) GERD (gastroesophageal reflux disease): QUALIFIERS: Esophagitis presence: esophagitis presence not specified Qualified Code(s): K21.9 - Gastro-esophageal reflux disease without esophagitis (5) Chronic constipation: (6) History of ischemic colitis: (7) Fracture, intertrochanteric, right femur: QUALIFIERS: Fracture type: closed Qualified Code(s): S72.141D - Displaced intertrochanteric fracture of right femur, subsequent encounter for closed fracture with routine healing (8) Anxiety: (9) Post-op pain: (10) Back pain: QUALIFIERS: Back pain laterality: unspecified Back pain location:low back pain Chronicity: chronic Sciatica presence: without sciatica Qualified Code(s): M54.50 - Low back pain, unspecified; G89.29 - Other chronic pain (11) Insomnia: QUALIFIERS: Insomnia type: due to medical condition Qualified Code(s): 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 or biopsy. Can follow up as OP. (16) Essential tremor: PLAN: This has been exacerbated by anxiety. PLAN: Plan Anxiety is a big concern. Essential tremor has been exacerbated by anxiety.......she has multiple worries. Losing her independence and having to move into AL, lost her in 2022, dtr committed suicide in Oct 2024, health has been declining, falls, selling her house, getting her furniture to AL. Tearful when we are talking about this. Tremor decreased when we talked through some of this. Cymbalta has helped with chronic pain and she is able to sleep somewhat better at night but, Cymbalta is not controlling anxiety and at this point I think this is the main issue and not depression. Cymbalta can exacerbate anxiety so I do not feel it is approporiate to increase the dose. May try adding a second antidepressant........will try Remeron since she is still having some difficulty with sleeping........was not sleeping when she first arrived on rehab. Start at 7.5 mg at HS. DC Trazodone. Would benefit from psychotherapy and she is agreeable to this. I reviewed the RESEARCH AND EVALUATION MANAGER note and agree with her assessment. We have discussed the plan. 03/11/25 1448 <Electronically signed by Carly BLAIR> Carly BLAIR Cosigner Signature (if applicable): 03/12/25 1819 <Electronically signed by Justina Perea DO> CC: ~ Signed [facility] Work Phone: [phone] Progress note [facility] Medical Records Department [address] [place] [address] Progress Note 03/11/25 0848 MR#: [id number] Acct: [id number] Name: MAY LEONARD Rep #:[id number] : 1940 84 From: Carly BLAIR PCP: Dr. Rosaura Peck MD Status:AD M IN Location: [place] [address] Documented by User: JOHNNIE Nguyen 03/11/25 14:48 Subjective Subjective HPI: MAY LEONARD, is a very pleasant 84-year-old female with past medical history of hypertension, GERD, chronic constipation, anxiety, liver lesion, right hip prosthesis, arthritis, ulcerative colitis, irritable bowel syndrome and right hip dislocation. Per chart review I did note that the patient did have a right hip repair 2 years ago. Last year she did have a fracture repair of the same hip. Incidental finding of a right lobe liver lesion in which patient states it is benign on 01/09/2025. Patient was seen by her orthopedic physician on 03/04/2025 and there was no dislocation noted. I thenmet with the patient at bedside. Patient is alert and oriented x 4. She is very pleasant and conversant. She did work with PT/OT this morning and is sitting in a bedside recliner. Patient states thaton 03/04 in the late afternoon she bent to90 degrees to clean up from her cat and felt a shift in her right hip. She thenstates that she had excruciating pain. She then states that she sat on the commode a little bit later in which she felt a huge "pop." And felt that her hip "popped back into place." And had a relief of her pain. She then went to bed without incidence. Upon waking in the morning,patient states excruciating pain to the right hip and was unable to walk. She then called her caregiver,, Chuyita, in which she did arrive intake patient to the emergency department. In the emergency department at [facility], patient was found to have a right hip dislocation. First reduction was unsuccessfuland required a second reduction which was successful. They then placed her in a knee immobilizer tohelp her tokeep her leg straight with instructions to follow-up with her orthopedic physician. She was then discharged home. Upon arrival at home patient's son-in-law, Sergei, had go difficulty caring for his [id number] whom lives alone at baseline. He then contacted the inpatient rehab unit foradmission forpain control and PT/OT services to assist with mobilization and to get her back to [facility] with a goal of returning home independently. At baseline the patient does utilize a walker. Patient does endorse that her son-in-law Sergei Boo is her surrogate decision maker in the eventthat she is unable to make decisions for herself. She also endorses that her CODE STATUS is full code. I did verify the patient's home medications with her. Patient does have some hyponatremia this morning with sodium of 128 and a chloride of 95. Patient states that she does have chronic hyponatremia. She does have history of iron deficiency anemia. Her current hemoglobin is 10.4 andhematocrit is 30.1. Platelets are within normal limits at 295. She currently denies abdominal pain and does take MiraLAX for her chronic constipation. Patient does acknowledge that she has difficulty sleeping at night and we did discuss utilization of melatonin which she is open to. We also discussed her anxiety and that she "used to take" lorazepam 0.5 mg p.o. twice daily as needed for anxiety. I did provide some teaching on deep breathing exercises which the patient stated appreciation. According to her orders patient's Ativan has been discontinued thus I have discontinued her medication here. Will consider addition of Xanax if needed, going forward. Reported by nursing overnight that the patient did have some snoring. Patient states that she does sleep flat on her back because of previous injuries to bilateral shoulders. We did discuss the possibility of propping up slightly during sleep to assist with snoring. Will do an overnight trend of her pulse ox. Patient does state that she currently has pain of 6/10 we did discuss schedulingher Tylenol every 8hours to assist with better pain control. She does take oxycodone 5 mg p.o. as needed every 6 hoursat home. I have scheduled her oxycodone 5 mg p.o. every 8 hours in order to assist with pain control over the next couple of days and then will transition to as needed. Patient does have anOARRS score of 40. All questions the patient had were answered. Dr. Perea was updated on patient's status. Vital signs stable. The pt was independently interviewed and examined. Since the Tylenol and Oxycodone have been scheduled the pain is better controlled. 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 In November 2024 her sodium was 133 and at that time the BUN was 21 with a creatinine of 0.57. I suspect she received intravenous fluids in the emergency room because her BUN is now down to 13 and her creatinine is stable at0.58. The sodium is dropped to 128. She is not on fluid restriction and is noton salt tablets. Iron studies in September 2024 showed an ironsaturation of 20.4which is normal. Her ferritin was 103. Iron studies in June 2024 were consistent with iron deficiency. She is chronically on Protonix. she has a hx of UC and has had heme + stools in the past. She has seen Dr. Boogie for low sodium in the past and was told to limit fluid intake. She had IV fluids in the ED and now she is volume overloaded. She sleptbetter last night. We discussed AL and she is OK with going to AL at [place]. Her nephew and her brother have toured a few places and they think she needs AL. She tells me that she has been having trouble cooking for herself and that even taking care of the cat has become too much for her. She had her last hip surgery with Dr. Callahan 1 year ago and it was a THR. She does not know if it was a posterior or anterior approach. She saw Dr. Callahan not too long ago and told him it sometimesseemed to pop out and back in but, hedid not feel at that time that it was a problem. She has a hx of chronic back pain and sees Dr. Guzmán for pain management. She has numbness in her feet. She sometimes uses a walker and sometimes a cane. She has been living independently up until now and has anaide that comes in 3 times a week[place] [address] cc/day to her diet. Start salt tabs 1 GM BID, 1 dose Lasix today. Recheck a BMP Tuesday. Check iron studies. Check a Hemoccult stool. 03/11/25: Iron studies showed iron of 20, TIBC of 188, iron saturation 11.0 and unsaturated 168. P.o.iron 325 mg ordered daily. I did update the patient about her iron studies in which she stated thatshe was on iron supplementation previously but that her primary care provider took her off of it. Patient states that she feels that her pain is being well-controlled with scheduled painmedications in which she is very grateful. She states that her current pain is 5/10 and that she has a "high paintolerance" as she does have chronic pain at baseline. She does state that her bilateral shoulders are more sore than usual but states that she feels that this is from leaning on the walker. May andrew orses that she slept very well last night and did not need the trazodone. She did take melatonin. She states that her Cymbalta has been helping with paincontrol and sleep as well. We did have an extensive discussion about how she feels her stay at [facility] is going and she is verypleased with the care that she is receiving. She states that she is open to SNF placement at [facility] once she is able to decrease the amount of PT/OT that is needed. We did discuss long-term goals and she stated that she is open to assisted living once she has completed all of her therapies but that she does not feel that she is ready for right now because she feels that she is requiringmore intensive therapies than she would receive from an outpatient status. She is hoping that she can have "another 10 days at [facility] for therapies." Will address during IDT rounds today. All questions were answered. Discussion with Dr. Perea and pt about insomia. Decision to add low dose of Remeron in addition to her low dose Cymbalta to assist with sleep hygiene. updated. Objective Data Objective Data Constitutional Constitutional: Reports as per HPI, body ache(s) and difficulty sleeping Eyes Eyes: Reports systems reviewed and no addt'l complaints, except as documented ENT HEENT: Reports systems reviewed and no addt'l complaints, except as documented Cardiovascular Cardiovascular: Reports systems reviewed and no addt'l complaints, except as documented Respiratory/Chest Respiratory/Chest: Reports none Gastrointestinal Gastrointestinal: Reports as per HPI and constipation is resolving Genitourinary Genitourinary: Reports dribbling Musculoskeletal Musculoskeletal: Reports as per HPI, back pain, difficulty walking but improving, extremity pain, joint pain to R hip and bilateral shoulders , joint stiffness,limited range of motion, muscle cramps,muscle spasms, tremors and other Details: Right hip pain Integumentary Integumentary: Reports none Neurologic Neurologic: Reports tremor(s) Psychiatric Psychiatric: Reports anxiety but is improved today Endocrine Endocrinology: Reports none Hematologic/Lymphatic Hematologic/Lymphatic: Reports anemia Allergic/Immunologic Allergic/Immunologic: Reports GI upset w/certain foods Vital Signs: Vital Signs Temp Pulse Resp BP Pulse Ox O2 Del Method FiO2 98.3 F 58 L 17 141/69 H 96 Room Air 21 03/11/25 06:00 03/11/25 06:00 03/11/25 06:00 03/11/25 06:00 03/11/25 06:00 03/11/25 06:00 03/07/25 21:52 Oxygen Delivery Method Room Air Weight: 111 lb 12.39 oz Body Mass Index (BMI) 19.1 Intake & Output: Intake and Output for Last 24 Hours 03/09/25 03/10/25 03/11/25 23:59 23:59 23:59 Intake Total 600 / 600 1200 / 1200 220 / 220 Output Total 950 / 950 850 / 850 400 / 400 Balance -350 / -350 350 / 350 -180 / -180 Lab / Micro Data Attestation: I reviewed the patient's lab results. Lab results narrative: Improvement of patient's sodium from 128 to now 136. Chloride is now 102 from 95. Potassium is within normal limits. She did have a slight elevation in her BUN at 27. Iron studies showed iron of 20, TIBC of 188, iron saturation 11.0 and unsaturated 168. Patient is receiving iron 325 mg p.o. daily 03/11/25 05:29 03/11/25 05:29 Labs: Laboratory Results - last 24 hr 03/11/25 05:29: Hgb 10.0 L, Hct 30.1 L, Sodium 136, Potassium 5.0, Chloride 102,Carbon Dioxide 26.8, Anion Gap 7, BUN 27 H, Creatinine 0.56 L, Estim Creat ClearCalc 43.39 L, Est GFR (MDRD) Non-Af 91,BUN/Creatinine Ratio 47.4 H, Glucose 108H, Calcium 8.9 Micro: Microbiology 03/08/25 18:25 Stool Stool Occult Blood (TERRI) - Final Occult Blood Positive Physical Exam Const oriented x3 and no apparent distress General Appearance: cooperative HEENT normocephalic Eyes PERRL Neck Neck Narrative: Patient states that she has been having some neck pain but states that she has chronic arthritis and this is not new for her. Resp normal respiratory effort, normal air movement and clear to auscultation bilaterally Cardio Cardio Narrative: Patient does have an irregular heart rhythm. This is not new for her and is chronic. Peripheral Pulses: pulses 2+ throughout GI normal to inspection, nondistended, normoactive bowel sounds GI Narrative: Patient denies any blood in stool. Patient had a bowel movement this a.m. whichwas reported to be brown and formed Extremity normal capillary refill Extremity Narrative: Right knee immobilizer in place. Patient does endorse having pain to the right hip but rates it 5/10. Skin General Skin Exam: no breakdown Neuro CN's II-XII intact bilaterally, no focal motor deficits and no sensory deficits noted Psych thought process normal Psych Narrative: Patient denies depression. She currently denies anxiety. She does state that she is utilizes the deep breathing exercises that were taught to her last week for episodes of anxiety. Appearance: appropriate Assessment & Plan Assessment/Plan (1) Dislocation of right hip: QUALIFIERS: Qualified Code(s): S73.004D - Unspecified dislocation ofright hip, subsequent encounter PLAN: 1. Continue with therapy 2. PT OT evaluation and treatment 3. Scheduled Tylenol and oxycodone for pain management (2) Liver lesion: PLAN: 1. Continue to monitor 2. Recommend follow-up with GI (3) Hypertension: QUALIFIERS: Hypertension type: primary hypertension Qualified Code(s): I10 - Essential (primary) hypertension PLAN: 1. Vital signs every shift 2. Lisinopril 20 mg p.o. daily (4) GERD (gastroesophageal reflux disease): QUALIFIERS: Esophagitis presence: esophagitis presence not specified Qualified Code(s): K21.9 - Gastro-esophageal reflux disease without esophagitis PLAN: 1. Protonix 40 mg p.o. daily (5) Chronic constipation: PLAN: 1. Monitor for constipation 2. Pema glycol 17 g p.o. daily (6) History of ischemic colitis: PLAN: 1. Continue to monitor 2. Patient is familiar with dietary restrictions to prevent pain (7) Fracture, intertrochanteric, right femur: QUALIFIERS: Fracture type: closed Qualified Code(s): S72.141D - Displaced intertrochanteric fracture of right femur, subsequent encounter for closed fracture with routine healing PLAN: 1. Continue to monitor 2. Resolved. 3. Right knee immobilizer (8) Anxiety: PLAN: 1. Continue to monitor 2. Teaching of deep breathing exercises and relaxation 3. Duloxetine 30 mg p.o. daily 4.. Consider Xanax 0.125 mg p.o. as needed for anxiety in the event patient hasuncontrolled anxietynot relieved with deep breathing and relaxation exercises. (9) Post-op pain: PLAN: 1. Scheduled acetaminophen 1000 mg p.o. every 8 hours 2. Scheduled oxycodone 5 mg p.o. every 8 hours. Will change to as needed once pain is controlled. (10) Back pain: QUALIFIERS: Back pain laterality: unspecified Back pain location:low back pain Chronicity: chronic Sciatica presence: without sciatica Qualified Code(s): M54.50 - Low back pain, unspecified; G89.29 -Other chronic pain PLAN: 1. Continue to monitor. 2. 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 Teaching of relaxation exercises 2. Melatonin 3 mg p.o. at bedtime 3. Trazodone discontinued 4. Low dose Remeron 7.5mg PO QHS ordered. 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 [place] fluid restriction of 1200 cc daily. 2. Start sodium chloride tabs 1 g p.o. twice daily. 3. Lasix 40 mg x 1. 4. Recheck a BMP on Tuesday showed normalization of sodium at 136, and normalization of chloride at 102 (13) Hyponatremia: PLAN: Resolving (14) History of iron deficiency anemia: PLAN: Check iron studies. Showed iron low at 20, TIBC low at 188, iron saturation 11.0 low, unsaturated low at 168. Ferrous sulfate 325 mg p.o. daily Monitor for bleeding Iron sucrose 100 mg IV x 1 now Iron sucrose 200 mg IV 03/12/2025 Iron sucrose 200 mg IV 03/13/2025 (15) Ovarian cyst, right: (16) Essential tremor: PLAN: Plan (1) Dislocation of right hip: QUALIFIERS: Qualified Code(s): S73.004D - Unspecified dislocation of right hip, subsequent encounter *Continue with therapies *Fall preacutions (2) Liver lesion: * Follow-up as needed with GI (3) Hypertension: QUALIFIERS: Hypertension type: primary hypertension Qualified Code(s): I10 - Essential (primary) hypertension *Continue home lisinopril *Vital signs every shift (4) GERD (gastroesophageal reflux disease): QUALIFIERS: Esophagitis presence: esophagitis presence not specified QualifiedCode(s): K21.9 - Gastro-esophageal reflux disease without esophagitis *Continue PPI (5) Chronic constipation: *Continue with bowel regimen (6) History of ischemic colitis: *Closely monitor (7) Fracture, intertrochanteric, right femur: QUALIFIERS: Fracture type: closed Qualified Code(s): S72.141D - Displaced intertrochanteric fracture of right femur, subsequent encounter for closed fracture with routine healing *Continue with therapies *Pain control *Utilization of knee immobilizer (8) Anxiety: *Deep breathing exercises *Continue to monitor (9) Post-op pain: *Continue with scheduled pain medications Tylenol and oxycodone. 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 Whit[place] fluid restriction of 1200 cc daily. Start sodium chloride tabs 1 g p.o. twice daily. Lasix 40 mg x 1. BMP done this AM (13) Hyponatremia: (Resolving) *Fluid restriction of 1200 mL/day *Sodium chloride tablet 1 g p.o. twice daily *BMP on 03/11 showed improvement of sodium (14) History of iron deficiency anemia: PLAN: Check iron studies. Check a Hemoccult stool. *Ferrous sulfate 325 mg p.o. daily Charges/Coding Visit Charges Inpatient E&M: 00806 Init Hosp L2 Documented by User: Dr. Justina Perea, 03/12/25 18:19 Subjective Subjective Afebrile VSS - Maintaining appropriate oxygen saturation on RA Oral intake - FOOD good FLUIDS fair at best Discussed with nursing - no problems that need addressed Reviewed the THERAPY notes Medication list reviewed. Chuyita feels her pain is adequately controlled at this time. She complains of increased anxiety at times and when her anxiety increases she has increased essential tremor. She is sleeping better at night than she was at admission to rehab. She denies cephalgia, vertigo, lightheadedness, chest pain, shortness ofbreath, cough, nausea/vomiting/abdominal pain, dysuria and calf tenderness. Objective Data Lab / Micro Data 03/11/25 05:29 03/11/25 05:29 Assessment & Plan Assessment/Plan (1) Dislocation of right hip: QUALIFIERS: Qualified Code(s): S73.004D - Unspecified dislocation ofright hip, subsequent encounter (2) Liver lesion: (3) Hypertension: QUALIFIERS: Hypertension type: primary hypertension Qualified Code(s): I10 - Essential (primary) hypertension (4) GERD (gastroesophageal reflux disease): QUALIFIERS: Esophagitis presence: esophagitis presence not specified Qualified Code(s): K21.9 - Gastro-esophageal reflux disease without esophagitis (5) Chronic constipation: (6) History of ischemic colitis: (7) Fracture, intertrochanteric, right femur: QUALIFIERS: Fracture type: closed Qualified Code(s): S72.141D - Displaced intertrochanteric fracture of right femur, subsequent encounter for closed fracture with routine healing (8) Anxiety: (9) Post-op pain: (10) Back pain: QUALIFIERS: Back pain laterality: unspecified Back pain location:low back pain Chronicity: chronic Sciatica presence: without sciatica Qualified Code(s): M54.50 - Low back pain, unspecified; G89.29 -Other chronic pain (11) Insomnia: QUALIFIERS: Insomnia type: due to medical condition Qualified Code(s): 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 or biopsy. Can follow up as OP. (16) Essential tremor: PLAN: This has been exacerbated by anxiety. PLAN: Plan Anxiety is a big concern. Essential tremor has been exacerbated by anxiety.......she has multiple worries. Losing her independence and having to move into [place], lost her in 2022, dtr committed suicide in Oct 2024, health has been declining, falls, selling her house, getting her furniture to [place] . Tearful when we are talking about this. Tremor decreased when we talked through some of this. Cymbalta has helped with chronic pain and she is able to sleep somewhat better at night but, Cymbalta is not controlling anxiety and at this point I think this is the main issue and not depression. Cymbalta can exacerbate anxiety so I do not feel it is approporiate to increase the dose. May try adding a second antidepressant........will try Remeron since she is still having some difficulty with sleeping........was not sleeping when she first arrived on rehab. Start at 7.5 mg at HS. DC Trazodone. Would benefit from psychotherapy and she is agreeable to this. I reviewed the RESEARCH AND EVALUATION MANAGER note and agree with her assessment. We have discussed the plan. 03/11/25 1448 Carly BLAIR Cosigner Signature (if applicable): 03/12/25 1819 CC: ~ Signed [facility]07-04-2025 History and physical note Author Carly meyer [facility] Note Date/Time March 08, 2025 2:58p m [facility] Medical Records Department [address] [place] [address] History & Physical Exam 03/07/25 0950 MR#: [id number] Acct: [id number] Name: MAY LEONARD Rep #:[id number] 5 : 1940 84 From: Carly BLAIR PCP: Dr. Rosaura Peck MD Status:AD M IN Location: [id number] Justina Perea, DO on 03/08/25 at 1458 Addendum Chuyita revealed to the PT that her dtr committed suicide in February of this year. She is on Cymbalta. Has needed benzo's in the past. Had a hard time falling asleep last night. May benefit from psychotherapy. Rather than add a benzo willstart Trazodone at bedtime and see how she does with this. 03/08/25 3715<Electronically signed by Justina Perea DO> Cosigner Signature (if applicable): 03/08/25 1423 <Electronically signed by MaryC. Eliazar ZARAGOZA> cc: JOHNNIE Montiel; Dr. Rosaura Peck MD; Dr. Justina Marshall DO ~* Signed Documented by User: JOHNNIE Nguyen 03/07/25 10:53 HPI - General General Date of Admission: 03/06/25 Date of Service: 03/07/25 Chief Complaint: Right hip pain following dislocation and reduction. HPI Narrative MAY LEONARD, is a very pleasant 84-year-old female with past medical history of hypertension, GERD, chronic constipation, anxiety, liver lesion, right hip prosthesis, arthritis, ulcerative colitis, irritable bowel syndrome and right hip dislocation. Per chart review I did note that the patient did have a right hip repair 2 years ago. Last year she did have a fracture repair of the same hip. Incidental finding of a right lobe liver lesion in which patient states itis benign on 01/09/2025. Patient was seen by her orthopedic physician on 03/04/2025 and there was no dislocation noted. I then met with the patient at bedside. Patient is alert and oriented x 4. She is very pleasant and conversant. She did work with PT/OT this morning and is sitting in a bedside recliner. Patient states that on 03/04 in the late afternoon she bent to 90 degrees to clean up from her cat and felt a shift in her right hip. She then states that she had excruciating pain. She then states that she sat on the commode a little bit later in which she felt a huge "pop." And felt that her hip "popped back into place." And had a relief of her pain. She then went to bed without incidence. Upon waking in the morning, patient states excruciating pain to the right hip and was unable to walk. She then called her caregiver,, Chuyita, in which she did arrive intake patient to the emergency department. In the emergency department at [facility], patient was found to have a right hip dislocation. First reduction was unsuccessful and required a second reduction which was successful. They then placed her in a knee immobilizer to help her tokeep her leg straight with instructions to follow-up with her orthopedic physician. She was then discharged home. Upon arrival at home patient's son-in-law, Sergei, had go difficulty caring for his [id number] whom lives alone at baseline. He then contacted the inpatient rehab unit for admission forpain control and PT/OT services to assist with mobilization and to get her back to her baseline with a goal of returning home independently. At baseline the patient does utilize a walker. Patient does endorse that her son-in-law Sergei Boo is her surrogate decision maker in the event that she is unable to make decisions for herself. She also endorses that her CODE STATUS is full code. I did verify the patient's home medications with her. Patient does have some hyponatremia this morning with sodium of 128 and a chloride of 95. Patient states that she does have chronic hyponatremia. She does have history of iron deficiency anemia. Her current hemoglobin is 10.4 andhematocrit is 30.1. Platelets are within normal limits at 295. She currently denies abdominal pain and does take MiraLAX for her chronic constipation. Patient does acknowledge that she has difficulty sleeping at night and we did discuss utilization of melatonin which she is open to. We also discussed her anxiety and that she "used to take" lorazepam 0.5 mg p.o. twice daily as needed for anxiety. I did provide some teaching on deep breathing exercises which the patient stated appreciation. According to her orders patient's Ativan has been discontinued thus I have discontinued her medication here. Will consider addition of Xanax if needed, going forward. Reported by nursing overnight that the patient did have some snoring. Patient states that she does sleep flat on her back because of previous injuries to bilateral shoulders. We did discuss the possibility of propping up slightly during sleep to assist with snoring. Will do an overnight trend of her pulse ox. Patient does state that she currently has pain of 6/10 we did discuss schedulingher Tylenol every 8 hours to assist with better pain control. She does take oxycodone 5 mg p.o. as needed every 6 hours at home. I have scheduled her oxycodone 5 mg p.o. every 8 hours in order to assist with pain control over the next couple of days and then will transition to as needed. Patient does have anOARRS score of 40. All questions the patient had were answered. Dr. Perea was updated on patient's status. Vital signs stable. Patient endorses difficulty sleeping and insomnia Patient has had sleeping problems for: "long time" Patient has difficulty: falling asleep and waking in the middle of the night Patient usually goes to bed at: Varies Patient usually wakes at: Varies These times generally change on the weekends: Yes On average, how long does it take to fall asleep: "hours" Once asleep, patient: wakes up frequently In the morning, the patient feels: tired Does the patient nap during the day: Yes How long do these naps last?: Occasionally Does patient consume caffeine or other stimulants: No Patient falls asleep while driving: No Does patient consume alcohol at bed time: No Patient has tried medication to help sleep: Yes Patient recalls specific incidents associated to the beginning of sleep problems: No The patient has problems with anxiety: Yes The patient has problems with depression: Yes Patient snores: Yes Limb movements are a problem: Yes There has been a prior sleep study: No CPAP/BIPAP use: not prescribed [facility] Medical History (Updated 03/08/25 @ 14:[address] Justina Perea, DO) History of iron deficiency anemia Hyponatremia History of SIADH Contusion of right wrist Acute lower gastrointestinal bleeding History of echocardiogram Wears glasses Post-menopausal Anxiety Alcohol use History of steroid therapy Ambulates with cane Arthritis Back pain Migraine headache Constipation Former smoker Leg cramps History of pain when walking History of fracture of leg Hypertension Home Medications ?Medication ?Instructions ?Recorded ?Last Taken ?Type lisinopril 20 mg tablet 20 mg PO DAILY blood pressur e 10/23/21 12/09/23 History calcium 600 mg (as 1 tab PO DAILY supplement 12/09/23 History carbonate)-vitamin D3 5 mcg (200 unit) tablet pantoprazole 40 mg tablet,delayed 40 mg PO DAILY reflu x #30 tabs 12/13/23 Unknown Rx release ferrous sulfate 325 mg (65 mg 325 mg PO DAILY suppleme nt 03/07/24 Unknown History iron) tablet (Feosol) celecoxib 200 mg capsule 200 mg PO DAILY pain 4 Unknown History oxycodone 5 mg tablet 5 mg PO Q6H PRN pain 4 Unknown History primidone 50 mg tablet 50 mg PO QHS Essential Tremo r 06/12/24 Unknown History dicyclomine 10 mg capsule 10 mg PO BID IBS 30 days #60 caps 01/09/25 Unknown Rx mesalamine 1.2 gram tablet,delayed 1.2 g PO DAILY IBS 30 days #30 tabs 01/09/25 Unknown Rx release acetaminophen 500 mg tablet 1,000 mg PO Q8 PRN pain Unknown History duloxetine 30 mg capsule,delayed 30 mg PO DAILY Depres wolfgang 03/06/25 Unknown History release lorazepam 0.5 mg tablet 0.5 mg PO BID PRN PRN anxiet y 03/06/25 Unknown History Allergy/AdvReac Type Severity Reaction Status Date / Time venom-honey bee Allergy Hives Verified 03/05/25 09:46 venom-wasp Allergy Hives Verified 03/05/25 09:46 naproxen AdvReac Other Verified 03/05/25 09:46 prednisone AdvReac Other Verified 03/05/25 09:46 Family History unable to obtain other (Patient does not remember much of her family history) Surgical History H/O shoulder replacement Hx of right cataract extraction Hx of left cataract extraction Hx of colonoscopy Social History adopted: No household members: none housing: house number of children: 1 current occupational status: retired Smoking Status: Former smoker alcohol intake: current alcohol intake frequency: holidays/special occasions only seatbelt use: always do you feel safe at home: Yes additional social history: ROS Constitutional Constitutional: Reports as per HPI, body ache(s) and difficulty sleeping Eyes Eyes: Reports systems reviewed and no addt'l complaints, except as documented ENT HEENT: Reports systems reviewed and no addt'l complaints, except as documented Cardiovascular Cardiovascular: Reports systems reviewed and no addt'l complaints, except as documented Respiratory/Chest Respiratory/Chest: Reports none Gastrointestinal Gastrointestinal: Reports as per HPI and constipation Genitourinary Genitourinary: Reports dribbling Musculoskeletal Musculoskeletal: Reports as per HPI, back pain, difficulty walking, extremity pain, joint pain, joint stiffness, limited range of motion, muscle cramps, muscle spasms, tremors and other Details: Right hip pain Integumentary Integumentary: Reports none Neurologic Neurologic: Reports tremor(s) Psychiatric Psychiatric: Reports anxiety Endocrine Endocrinology: Reports none Hematologic/Lymphatic Hematologic/Lymphatic: Reports anemia Allergic/Immunologic Allergic/Immunologic: Reports GI upset w/certain foods Vital Signs Vital Signs Vital Signs: 03/06/25 15:44 03/06/25 17:22 03/06/25 17:46 Temperature 98.1 F 98.1 F Temperature Source Temporal Temporal Pulse Rate 67 67 Pulse Strength Respiratory Rate 17 17 Respiratory Effort Normal Non-Labored Respiratory Depth Normal Respiratory Pattern Normal Blood Pressure 137/74 H 137/74 H Blood Pressure Mean 95 95 Blood Pressure Source Monitor Monitor Blood Pressure Position Semi-Fowlers Blood Pressure Location Right Arm Pulse Ox 94 94 Oxygen Delivery Method Room Air Room Air Room Air 03/06/25 20:18 03/06/25 20:20 03/07/25 05:16 Temperature 98.1 F Temperature Source Temporal Pulse Rate 68 Pulse Strength Normal (2+) Respiratory Rate 16 Respiratory Effort Normal Non-Labored Respiratory Depth Normal Respiratory Pattern Normal Blood Pressure 140/69 H Blood Pressure Mean 92 Blood Pressure Source Monitor Blood Pressure Position Supine Blood Pressure Location Right Arm Pulse Ox 94 Oxygen Delivery Method Room Air Room Air Weight Weight: 110 lb Body Mass Index (BMI) 18.8 Indicators for Scoring Admitted with or Primary Diagnosis of CVA/Stroke: No Hx of CVA/Stroke: No Modified Plumas Score MRS Score at time of Evaluation: 3-Moderate disability Physical Exam Const oriented x3 and no apparent distress General Appearance: cooperative and well kempt Orientation / Consciousness: awake, oriented to person, oriented to place and oriented to time Exam Limitations: no limitations Nutritional Appearance: thin HEENT normocephalic Nose: external nose normal External Ear: external ears normal Mouth: oral and palatal mucosa normal Eyes PERRL General Eye: normal appearance of both eyes Visual Acuity: acuity normal Sclera: sclera normal Neck full ROM General: trachea midline Lymph Lymphatic: no lymphadenopathy noted Resp Effort and Inspection: able to speak in complete sentences and symmetric chest movement Auscultation: clear to auscultation bilaterally Cardio regular rate, regular rhythm, S1 normal heart sound, S2 normal heart sound and no murmurs GI normal to inspection, nondistended, normoactive bowel sounds, soft to palpation,non-tender and non-distended GI Narrative: History of constipation no CVA tenderness Back/Spine no thoracic nor lumbar tenderness Extremity Extremity Narrative: Right hip pain that radiates to the right knee. Knee immobilizer in place. Right Lower Extremity: hip joint ROM (Decreased range of motion. Subjective pain) Skin no rashes or lesions noted General Skin Exam: no breakdown Hair: normal Nails: normal Neuro oriented x3 Sensorium / Orientation: awake, alert, oriented to person, oriented to place andoriented to time Speech: speech normal Psych mental status grossly normal Attitude: calm and engaged Activity / Motor Behavior: appropriate eye contact Speech: normal speech Thought Process: normal thought process Thought Content: normal thought content Attention / Concentration: attention grossly intact Memory / Cognition: other Some memory deficit but states "I have gotten forgetful as of gotten older." Results Medical Records Data Attestation: I reviewed the patient's medical records Lab / Micro Data Attestation: I reviewed the patient's lab results. 03/07/25 06:08 03/07/25 06:08 Labs: Laboratory Results - last 24 hr 03/06/25 16:14: POC Glucose 175 H 03/07/25 06:08: WBC 7.8, RBC 3.20 L, Hgb 10.4 L, Hct 30.1 L, MCV 94.1, MCH 32.5 H, MCHC 34.6, RDW Std Deviation 50.6 H, RDW Coeff of Cas 14.6, Plt Count 295, MPV 9.1, Immature Gran % (Auto) 0.400, Neut % (Auto) 72.9 H, Lymph % (Auto) 15.8L, Carlton % (Auto) 6.2, Eos % (Auto) 4.4, Baso % (Auto) 0.3, Absolute Neuts (auto)5.7, Absolute Lymphs (auto) 1.23, Nucleated RBC % 0, Sodium 128 L, Potassium 4.3, Chloride 95 L, Carbon Dioxide 23.6, Anion Gap 10, BUN 13, Creatinine 0.58 L, Estim Creat Clear Calc 42.71 L, Est GFR (MDRD) Non-Af 90, BUN/Creatinine Ratio22.0 H, Glucose 105 H, Calcium 8.7, Phosphorus 2.8, Magnesium 1.9, Total Bilirubin 0.30, AST 20, ALT 18, Alkaline Phosphatase 53, Total Protein 5.5 L, Albumin 3.2 L, Globulin 2.3, Albumin/Globulin Ratio 1.4 Imaging Right hip in the emergency department was dislocated follow-up x-ray after reduction x 2 showed dislocation reduced. Assessment & Plan Assessment/Plan (1) Dislocation of right hip: QUALIFIERS: Qualified Code(s): S73.004D - Unspecified dislocation ofright hip, subsequent encounter PLAN: 1. Continue with therapy 2. PT OT evaluation and treatment 3. Scheduled Tylenol and oxycodone for pain management (2) Liver lesion: PLAN: 1. Continue to monitor 2. Recommend follow-up with GI (3) Hypertension: QUALIFIERS: Hypertension type: primary hypertension Qualified Code(s): I10 - Essential (primary) hypertension PLAN: 1. Vital signs every shift 2. Lisinopril 20 mg p.o. daily (4) GERD (gastroesophageal reflux disease): QUALIFIERS: Esophagitis presence: esophagitis presence not specified Qualified Code(s): K21.9 - Gastro-esophageal reflux disease without esophagitis PLAN: 1. Protonix 40 mg p.o. daily (5) Chronic constipation: PLAN: 1. Monitor for constipation 2. Pema glycol 17 g p.o. daily (6) History of ischemic colitis: PLAN: 1. Continue to monitor 2. Patient is familiar with dietary restrictions to prevent pain (7) Fracture, intertrochanteric, right femur: QUALIFIERS: Fracture type: closed Qualified Code(s): S72.141D - Displaced intertrochanteric fracture of right femur, subsequent encounter for closed fracture with routine healing PLAN: 1. Continue to monitor 2. Resolved. (8) Anxiety: PLAN: 1. Continue to monitor 2. Teaching of deep breathing exercises and relaxation 3. Duloxetine 30 mg p.o. daily 4.. Consider Xanax 0.125 mg p.o. as needed for anxiety in the event patient hasuncontrolled anxiety not relieved with deep breathing and relaxation exercises. (9) Post-op pain: PLAN: 1. Scheduled acetaminophen 1000 mg p.o. every 8 hours 2. Scheduled oxycodone 5 mg p.o. every 8 hours. Will change to as needed once pain is controlled. (10) Back pain: QUALIFIERS: Back pain laterality: unspecified Back pain location:low back pain Chronicity: chronic Sciatica presence: without sciatica Qualified Code(s): M54.50 - Low back pain, unspecified; G89.29 - Other chronic pain PLAN: 1. Continue to monitor. 2. 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 Teaching of relaxation exercises 2. Melatonin 3 mg p.o. 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 Justina Perea DO 03/08/25 14:23 HPI - General General Date of Admission: 03/06/25 HPI Narrative MAY LEONARD, is a very pleasant 84-year-old female with past medical history of hypertension, GERD, chronic constipation, anxiety, liver lesion, right hip prosthesis, arthritis, ulcerative colitis, irritable bowel syndrome and right hip dislocation. Per chart review I did note that the patient did have a right hip repair 2 years ago. Last year she did have a fracture repair of the same hip. Incidental finding of a right lobe liver lesion in which patient states itis benign on 01/09/2025. Patient was seen by her orthopedic physician on 03/04/2025 and there was no dislocation noted. I then met with the patient at bedside. Patient is alert and oriented x 4. She is very pleasant and conversant. She did work with PT/OT this morning and is sitting in a bedside recliner. Patient states that on 03/04 in the late afternoon she bent to 90 degrees to clean up from her cat and felt a shift in her right hip. She then states that she had excruciating pain. She then states that she sat on the commode a little bit later in which she felt a huge "pop." And felt that her hip "popped back into place." And had a relief of her pain. She then went to bed without incidence. Upon waking in the morning, patient states excruciating pain to the right hip and was unable to walk. She then called her caregiver,, Chuyita, in which she did arrive intake patient to the emergency department. In the emergency department at [facility], patient was found to have a right hip dislocation. First reduction was unsuccessful and required a second reduction which was successful. They then placed her in a knee immobilizer to help her tokeep her leg straight with instructions to follow-up with her orthopedic physician. She was then discharged home. Upon arrival at home patient's son-in-law, Sergei, had go difficulty caring for his [id number] whom lives alone at baseline. He then contacted the inpatient rehab unit for admission forpain control and PT/OT services to assist with mobilization and to get her back to her baseline with a goal of returning home independently. At baseline the patient does utilize a walker. Patient does endorse that her son-in-law Sergei Boo is her surrogate decision maker in the event that she is unable to make decisions for herself. She also endorses that her CODE STATUS is full code. I did verify the patient's home medications with her. Patient does have some hyponatremia this morning with sodium of 128 and a chloride of 95. Patient states that she does have chronic hyponatremia. She does have history of iron deficiency anemia. Her current hemoglobin is 10.4 andhematocrit is 30.1. Platelets are within normal limits at 295. She currently denies abdominal pain and does take MiraLAX for her chronic constipation. Patient does acknowledge that she has difficulty sleeping at night and we did discuss utilization of melatonin which she is open to. We also discussed her anxiety and that she "used to take" lorazepam 0.5 mg p.o. twice daily as needed for anxiety. I did provide some teaching on deep breathing exercises which the patient stated appreciation. According to her orders patient's Ativan has been discontinued thus I have discontinued her medication here. Will consider addition of Xanax if needed, going forward. Reported by nursing overnight that the patient did have some snoring. Patient states that she does sleep flat on her back because of previous injuries to bilateral shoulders. We did discuss the possibility of propping up slightly during sleep to assist with snoring. Will do an overnight trend of her pulse ox. Patient does state that she currently has pain of 6/10 we did discuss schedulingher Tylenol every 8 hours to assist with better pain control. She does take oxycodone 5 mg p.o. as needed every 6 hours at home. I have scheduled her oxycodone 5 mg p.o. every 8 hours in order to assist with pain control over the next couple of days and then will transition to as needed. Patient does have anOARRS score of 40. All questions the patient had were answered. Dr. Perea was updated on patient's status. Vital signs stable. The pt was independently interviewed and examined. Since the Tylenol and Oxycodone have been scheduled the pain is better controlled. 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 In November 2024 her sodium was 133 and at that time the BUN was 21 with a creatinine of 0.57. I suspect she received intravenous fluids in the emergency room because her BUN is now down to 13 and her creatinine is stable at0.58. The sodium is dropped to 128. She is not on fluid restriction and is noton salt tablets. Iron studies in September 2024 showed an iron saturation of 20.4which is normal. Her ferritin was 103. Iron studies in June 2024 were consistent with iron deficiency. She is chronically on Protonix. she has a hx of UC and has had heme + stools in the past. She has seen Dr. Boogie for low sodium in the past and was told to limit fluid intake. She had IV fluids in the ED and now she is volume overloaded. She sleptbetter last night. We discussed AL and she is OK with going to AL at [place]. Her nephew and her brother have toured a few places and they think she needs AL. She tells me that she has been having trouble cooking for herself and that even taking care of the cat has become too much for her. She had her last hip surgery with Dr. Callahan 1 year ago and it was a THR. She does not know if it was a posterior or anterior approach. She saw Dr. Callahan not too long ago and told him it sometimes seemed to pop out and back in but, hedid not feel at that time that it was a problem. She has a hx of chronic back pain and sees Dr. Guzmán for pain management. She has numbness in her feet. She sometimes uses a walker and sometimes a cane. She has been living independently up until now and has an aide that comes in 3 times a week. I agree with the physical findings documented by Carly Villavicencio NP withno exceptions[place] [address] cc/day to her diet. Start salt tabs 1 GM BID, 1 dose Lasix today. Recheck a BMP Tuesday. Check iron studies. Check a Hemoccult stool. [facility] Medical History (Updated 03/08/25 @ 14:[address] Justina Perea, ) History of iron deficiency anemia Hyponatremia History of SIADH Contusion of right wrist Acute lower gastrointestinal bleeding History of echocardiogram Wears glasses Post-menopausal Anxiety Alcohol use History of steroid therapy Ambulates with cane Arthritis Back pain Migraine headache Constipation Former smoker Leg cramps History of pain when walking History of fracture of leg Hypertension Home Medications ?Medication ?Instructions ?Recorded ?Last Taken ?Type lisinopril 20 mg tablet 20 mg PO DAILY blood pressur e 10/23/21 12/09/23 History calcium 600 mg (as 1 tab PO DAILY supplement 12/09/23 History carbonate)-vitamin D3 5 mcg (200 unit) tablet pantoprazole 40 mg tablet,delayed 40 mg PO DAILY reflu x #30 tabs 12/13/23 Unknown Rx release ferrous sulfate 325 mg (65 mg 325 mg PO DAILY suppleme nt 03/07/24 Unknown History iron) tablet (Feosol) celecoxib 200 mg capsule 200 mg PO DAILY pain 4 Unknown History oxycodone 5 mg tablet 5 mg PO Q6H PRN pain 4 Unknown History primidone 50 mg tablet 50 mg PO QHS Essential Tremo r 06/12/24 Unknown History dicyclomine 10 mg capsule 10 mg PO BID IBS 30 days #60 caps 01/09/25 Unknown Rx mesalamine 1.2 gram tablet,delayed 1.2 g PO DAILY IBS 30 days #30 tabs 01/09/25 Unknown Rx release acetaminophen 500 mg tablet 1,000 mg PO Q8 PRN pain Unknown History duloxetine 30 mg capsule,delayed 30 mg PO DAILY Depres wolfgang 03/06/25 Unknown History release lorazepam 0.5 mg tablet 0.5 mg PO BID PRN PRN anxiet y 03/06/25 Unknown History Allergy/AdvReac Type Severity Reaction Status Date / Time venom-honey bee Allergy Hives Verified 03/05/25 09:46 venom-wasp Allergy Hives Verified 03/05/25 09:46 naproxen AdvReac Other Verified 03/05/25 09:46 prednisone AdvReac Other Verified 03/05/25 09:46 Family History unable to obtain Surgical History H/O shoulder replacement Hx of right cataract extraction Hx of left cataract extraction Hx of colonoscopy Social History adopted: No household members: none housing: house number of children: 1 current occupational status: retired Smoking Status: Former smoker alcohol intake: current alcohol intake frequency: holidays/special occasions only seatbelt use: always do you feel safe at home: Yes additional social history: Results Lab / Micro Data 03/07/25 06:08 03/07/25 06:08 Assessment & Plan Assessment/Plan (1) Dislocation of right hip: QUALIFIERS: Qualified Code(s): S73.004D - Unspecified dislocation ofright hip, subsequent encounter (2) Liver lesion: (3) Hypertension: QUALIFIERS: Hypertension type: primary hypertension Qualified Code(s): I10 - Essential (primary) hypertension (4) GERD (gastroesophageal reflux disease): QUALIFIERS: Esophagitis presence: esophagitis presence not specified Qualified Code(s): K21.9 - Gastro-esophageal reflux disease without esophagitis (5) Chronic constipation: (6) History of ischemic colitis: (7) Fracture, intertrochanteric, right femur: QUALIFIERS: Fracture type: closed Qualified Code(s): S72.141D - Displaced intertrochanteric fracture of right femur, subsequent encounter for closed fracture with routine healing (8) Anxiety: (9) Post-op pain: (10) Back pain: QUALIFIERS: Back pain laterality: unspecified Back pain location:low back pain Chronicity: chronic Sciatica presence: without sciatica Qualified Code(s): M54.50 - Low back pain, unspecified; G89.29 - Other chronic pain (11) Insomnia: QUALIFIERS: Insomnia type: due to medical condition Qualified Code(s): 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 [place] fluid restriction of 1200 cc daily. Start sodium chloride tabs 1 g p.o. twice daily. Lasix 40 mg x 1. Recheck a BMP on Tuesday. (13) Hyponatremia: (14) History of iron deficiency anemia: PLAN: Check iron studies. Check a Hemoccult stool. 03/07/25 1101 <Electronically signed by Carly BLAIR> Cosigner Signature (if applicable): 03/08/25 1423 <Electronically signed by Justina Perea DO> CC: JOHNNIE Montiel; Dr. Rosaura Peck MD; Dr. Justina Marshall DO~ Signed [facility] Work Phone: [phone]) 329-199707-04-2025 History and physical note Author Carly Quiroz [facility] Note Date/Time March 08, 2025 2:28p m [facility] Medical Records Department [address] [place] [address] Post Admission Physician Roland 03/07/25 1055 MR#: [id number] Acct: [id number] Name: MAY LEONARD Rep #:[id number] : 1940 84 From: Carly BLAIR PCP: Dr. Rosaura Peck MD Status:AD M IN Location: [place] [address] Documented by User: JOHNNIE Nguyen 03/07/25 11:01 Admission Information Primary Diagnosis:: Pain and disability following right hip dislocation Actual Problem List:: Pain, ALteration in Cmfrt, Bowel, Constipation, Alterationin Sleep, Mobility Impaired, Self Care Deficit, BP, Hypertension and Alteration- Leisure Activ. Potential Problem List:: Falls and Depression Risk of Complications DVT: LUCIA Hose Bleeding: Monitor Lab Values Urinary Tract Infection: Monitor for frequency, burning, discomfort, or incontinence. Falls: Patient will be evaluated for Fall Precautions and Patient will be placedon Fall Precautions as indicated per protocol. Skin Breakdown: Nursing will assess skin daily using assessment tool. Pain: Clinical staff will assess patient's pain level per protocol., Medicationswill be given, if needed, and the pain level reassessed. and Other methods: Massage, distraction, decrease stimulus, etc. used PRN. Plan of Care Patient requires physician specializing in physical medicine and rehab oversightto provide close medical supervision of rehab issues including: Pain Management,Sleep Problems, Medical and co-morbidity Management and Coordination of treatment team Patient needs Physical Therapy: For a minimum of 1.5 hrs Patient needs Physical Therapy to improve:: Mobility, Strengthening, Transfers, Gait and Balance Patient needs Occupational Therapy: For a minimum of 1.5 hrs Patient needs Occupational Therapy to improve ADL's incl.: Dressing, Toilet transfers, Household tasks and Adaptive Equipment Patient requires 24/7 Rehabilitation Nursing for: Pain Issues, Identifying and preventing risk factors, Monitoring and reporting current medical conditions, Assisting with ambulation, transfer, and all ADL's, Teaching patients about disease process and medications, Family teaching, Providing safe environment andMedication Management Patient needs Commercial Real Estate Assistant/ Case Management for: Discharge Planning, Arranging Home Equipment or Services and Family Interventions Patient needs Dietary and Nutrition Services for: Adequate Nutrition, Nutritional Supplements and Nutritional Education Goals Goals Patient will remain: free from falls and or injury at time of discharge. Patient will perform bed mobility at: Standby Assist. Patient will complete transfers from bed to chair at: Standby Assist. Patient will ambulate: 100 feet Patient will complete upper body dressing at: Standby Assist. Patient will complete lower body dressing at: Standby Assist. Patient will complete toilet transfer at: Standby Assist. Patient will complete toileting at: Standby Assist. Patient will perform bathing at: Standby Assist. Patient will perform Tub/Shower transfer at: Standby Assist. Patient will complete grooming at: Standby Assist. Patient will complete home management skills at: Standby Assist. Patient will achieve: with standby assist Patient will have pain level of: - (Patient's excepted pain level of 5 her last. Patient does have chronic pain.) Patient's skin will: remain intact and free from infection. Patient will receive: adequate nutrition. Discharge Planning Pt Prognosis for Sig. Practical Improv. w/in Reasonable Time: Good Anticipated D/C Destination: Home with Home Health Was Preadmission Assessment Accurate?: Yes Visit Charges Inpatient E&M: 34649 Init Hosp L2 Documented by User: Dr. Justina Perea DO 03/08/25 14:28 Goals Goals Patient will perform eating at: MOD I level of assist. Patient will ambulate: - (150 feet using a wheeled walker with supervision) Patient will complete upper body dressing at: - (Set up) Patient will complete lower body dressing at: - (Minimal assistance with adaptive equipment as needed) Patient will complete toilet transfer at: - (Min assist) Patient will complete toileting at: - (Min assist) Patient will perform bathing at: - (Upper body bathing at supervision and lower body bathing at min assist with adaptive equipment as needed) Patient will perform Tub/Shower transfer at: - (Minimal assistance using DME as needed) Patient will complete grooming at: - (Set up level while standing at the sink) Patient will achieve: - (Ascend/descend 2 steps using 1 handrail at standby assist) Patient will have pain level of: of 3 or less Discharge Planning Estimated Length of stay (days): 21 Anticipated D/C Destination: Assisted Living Facility 03/07/25 1103 <Electronically signed by Carly BLAIR> Cosigner Signature (if applicable): 03/08/25 1428 <Electronically signed by Justina Perea DO> CC: ~ Signed [facility] Work Phone: 1(873) 977-903107-04-2025 History and physical note [facility] Medical Records Department [address] [place] [address] History & Physical Exam 03/07/25 0950 MR#: [id number] Acct: [id number] Name: MAY LEONARD Rep #:[id number] : 1940 84 From: Carly BLAIR PCP: Dr. Rosaura Peck MD Status:AD M IN Location: [place] [id number] Justina Perea DO on 03/08/25 at 1458 Addendum Chuyita revealed to the PT that her dtr committed suicide in October of this year. She is on Cymbalta. Has needed benzo's in the past. Had a hard time falling asleep last night. May benefit from psychotherapy. Rather than add a benzo willstart Trazodone at bedtime and see how she does with this. 03/08/25 1458 Cosigner Signature (if applicable): 03/08/25 1423 cc: JOHNNIE Montiel; Dr. Rosaura Peck MD; Dr. Justina Marshall DO ~* Signed Documented by User: JOHNNIE Nguyen 03/07/25 10:53 HPI - General General Date of Admission: 03/06/25 Date of Service: 03/07/25 Chief Complaint: Right hip pain following dislocation and reduction. HPI Narrative MAY LEONARD, is a very pleasant 84-year-old female with past medical history of hypertension, GERD, chronic constipation, anxiety, liver lesion, right hip prosthesis, arthritis, ulcerative colitis,irritable bowel syndrome and right hip dislocation. Per chart review I did note that the patient did have a right hip repair 2 years ago. Last year she did have a fracture repair of the same hip. Incidental finding of a right lobe liver lesion in which patient states itis benign on 01/09/2025. Patient was seen by her orthopedic physician on 03/04/2025 and there was no dislocation noted. I then met with the patient at bedside. Patient is alert and oriented x 4. She is very pleasant and conversant. She did work with PT/OT this morning and is sitting in a bedside recliner. Patient states that on 03/04 in the late afternoon she bent to 90 degrees to clean up from her cat and felt a shift in her right hip. She then states that she had excruciating pain. She then states that she sat on the commode a little bit later in which she felt a huge "pop." And felt that her hip "popped back into place." And had a relief of her pain. She then went to bed without incidence. Upon waking in the morning, patient states excruciating pain to the right hip and was unable to walk. She then called her caregiver,, Chuyita, in which she did arrive intake patient to the emergency department. In the emergency department at [facility], patient was found to have a right hip dislocation. First reduction was unsuccessful andrequired a second reduction which was successful. They then placed her in a knee immobilizer to help her tokeep her leg straight with instructions to follow-up with her orthopedic physician. She was then discharged home. Upon arrival at home patient's son-in-law, Sergei, had go difficulty caring for his [id number] whom lives alone at baseline. He then contacted the inpatient rehab unit for admission forpain control and PT/OT services to assist with mobilization and to get her back to her baseline with a goal of returning home independently. At baseline the patient does utilize a walker. Patient does endorse that her son-in-law Sergei Boo is her surrogate decision maker in the event that she is unable to make decisions for herself. She also endorses that her CODE STATUS is full code. I did verify the patient's home medications with her. Patient does have some hyponatremia this morning with sodium of 128 and a chloride of 95. Patient states that she does have chronic hyponatremia. She does have history of iron deficiency anemia. Her current hemoglobin is 10.4 andhematocrit is 30.1. Platelets are within normal limits at 295. She currently denies abdominal pain and does take MiraLAX for her chronic constipation. Patient does acknowledge that she has difficulty sleeping at night and we did discuss utilization of melatonin which she is open to. We also discussed her anxiety and that she "used to take" lorazepam 0.5 mg p.o. twice daily as needed for anxiety. I did provide some teaching on deep breathing exercises which the patient stated appreciation. According to her orders patient's Ativan has been discontinued thus I have discontinued her medication here. Will consider addition of Xanax if needed, going forward. Reported by nursing overnight that the patient did have some snoring. Patient states that she does sleep flat on her back because of previous injuries to bilateral shoulders. We did discuss the possibility of propping up slightly during sleep to assist with snoring. Will do an overnight trend of her pulse ox. Patient does state that she currently has pain of 6/10 we did discuss schedulingher Tylenol every 8hours to assist with better pain control. She does take oxycodone 5 mg p.o. as needed every 6 hoursat home. I have scheduled her oxycodone 5 mg p.o. every 8 hours in order to assist with pain control over the next couple of days and then will transition to as needed. Patient does have anOARRS score of 40. All questions the patient had were answered. Dr. Perea was updated on patient's status. Vital signs stable. Patient endorses difficulty sleeping and insomnia Patient has had sleeping problems for: "long time" Patient has difficulty: falling asleep and waking in the middle of the night Patient usually goes to bed at: Varies Patient usually wakes at: Varies These times generally change on the weekends: Yes On average, how long does it take to fall asleep: "hours" Once asleep, patient: wakes up frequently In the morning, the patient feels: tired Does the patient nap during the day: Yes How long do these naps last?: Occasionally Does patient consume caffeine or other stimulants: No Patient falls asleep while driving: No Does patient consume alcohol at bed time: No Patient has tried medication to help sleep: Yes Patient recalls specific incidents associated to the beginning of sleep problems: No The patient has problems with anxiety: Yes The patient has problems with depression: Yes Patient snores: Yes Limb movements are a problem: Yes There has been a prior sleep study: No CPAP/BIPAP use: not prescribed [facility] Medical History (Updated 03/08/25 @ 14:[address] Justina Perea, ) History of iron deficiency anemia Hyponatremia History of SIADH Contusion of right wrist Acute lower gastrointestinal bleeding History of echocardiogram Wears glasses Post-menopausal Anxiety Alcohol use History of steroid therapy Ambulates with cane Arthritis Back pain Migraine headache Constipation Former smoker Leg cramps History of pain when walking History of fracture of leg Hypertension Home Medications ?Medication ?Instructions ?Recorded ?Last Taken ?Type lisinopril 20 mg tablet 20 mg PO DAILY blood pressur e 10/23/21 12/09/23 History calcium 600 mg (as 1 tab PO DAILY supplement 12/09/23 History carbonate)-vitamin D3 5 mcg (200 unit) tablet pantoprazole 40 mg tablet,delayed 40 mg PO DAILY reflu x #30 tabs 12/13/23 Unknown Rx release ferrous sulfate 325 mg (65 mg 325 mg PO DAILY suppleme nt 03/07/24 Unknown History iron) tablet (Feosol) celecoxib 200 mg capsule 200 mg PO DAILY pain 4 Unknown History oxycodone 5 mg tablet 5 mg PO Q6H PRN pain 4 Unknown History primidone 50 mg tablet 50 mg PO QHS Essential Tremo r 06/12/24 Unknown History dicyclomine 10 mg capsule 10 mg PO BID IBS 30 days #60 caps 01/09/25 Unknown Rx mesalamine 1.2 gram tablet,delayed 1.2 g PO DAILY IBS 30 days #30 tabs 01/09/25 Unknown Rx release acetaminophen 500 mg tablet 1,000 mg PO Q8 PRN pain Unknown History duloxetine 30 mg capsule,delayed 30 mg PO DAILY Depres wolfgang 03/06/25 Unknown History release lorazepam 0.5 mg tablet 0.5 mg PO BID PRN PRN anxiet y 03/06/25 Unknown History Allergy/AdvReac Type Severity Reaction Status Date / Time venom-honey bee Allergy Hives Verified 03/05/25 09:46 venom-wasp Allergy Hives Verified 03/05/25 09:46 naproxen AdvReac Other Verified 03/05/25 09:46 prednisone AdvReac Other Verified 03/05/25 09:46 Family History unable to obtain other (Patient does not remember much of her family history) Surgical History H/O shoulder replacement Hx of right cataract extraction Hx of left cataract extraction Hx of colonoscopy Social History adopted: No household members: none housing: house number of children: 1 current occupational status: retired Smoking Status: Former smoker alcohol intake: current alcohol intake frequency: holidays/special occasions only seatbelt use: always do you feel safe at home: Yes additional social history: ROS Constitutional Constitutional: Reports as per HPI, body ache(s) and difficulty sleeping Eyes Eyes: Reports systems reviewed and no addt'l complaints, except as documented ENT HEENT: Reports systems reviewed and no addt'l complaints, except as documented Cardiovascular Cardiovascular: Reports systems reviewed and no addt'l complaints, except as documented Respiratory/Chest Respiratory/Chest: Reports none Gastrointestinal Gastrointestinal: Reports as per HPI and constipation Genitourinary Genitourinary: Reports dribbling Musculoskeletal Musculoskeletal: Reports as per HPI, back pain, difficulty walking, extremity pain, joint pain, joint stiffness, limited range of motion, muscle cramps, muscle spasms, tremors and other Details: Right hip pain Integumentary Integumentary: Reports none Neurologic Neurologic: Reports tremor(s) Psychiatric Psychiatric: Reports anxiety Endocrine Endocrinology: Reports none Hematologic/Lymphatic Hematologic/Lymphatic: Reports anemia Allergic/Immunologic Allergic/Immunologic: Reports GI upset w/certain foods Vital Signs Vital Signs Vital Signs: 03/06/25 15:44 03/06/25 17:22 03/06/25 17:46 Temperature 98.1 F 98.1 F Temperature Source Temporal Temporal Pulse Rate 67 67 Pulse Strength Respiratory Rate 17 17 Respiratory Effort Normal Non-Labored Respiratory Depth Normal Respiratory Pattern Normal Blood Pressure 137/74 H 137/74 H Blood Pressure Mean 95 95 Blood Pressure Source Monitor Monitor Blood Pressure Position Semi-Fowlers Blood Pressure Location Right Arm Pulse Ox 94 94 Oxygen Delivery Method Room Air Room Air Room Air 03/06/25 20:18 03/06/25 20:20 03/07/25 05:16 Temperature 98.1 F Temperature Source Temporal Pulse Rate 68 Pulse Strength Normal (2+) Respiratory Rate 16 Respiratory Effort Normal Non-Labored Respiratory Depth Normal Respiratory Pattern Normal Blood Pressure 140/69 H Blood Pressure Mean 92 Blood Pressure Source Monitor Blood Pressure Position Supine Blood Pressure Location Right Arm Pulse Ox 94 Oxygen Delivery Method Room Air Room Air Weight Weight: 110 lb Body Mass Index (BMI) 18.8 Indicators for Scoring Admitted with or Primary Diagnosis of CVA/Stroke: No Hx of CVA/Stroke: No Modified Jus Score MRS Score at time of Evaluation: 3-Moderate disability Physical Exam Const oriented x3 and no apparent distress General Appearance: cooperative and well kempt Orientation / Consciousness: awake, oriented to person, oriented to place and oriented to time Exam Limitations: no limitations Nutritional Appearance: thin HEENT normocephalic Nose: external nose normal External Ear: external ears normal Mouth: oral and palatal mucosa normal Eyes PERRL General Eye: normal appearance of both eyes Visual Acuity: acuity normal Sclera: sclera normal Neck full ROM General: trachea midline Lymph Lymphatic: no lymphadenopathy noted Resp Effort and Inspection: able to speak in complete sentences and symmetric chest movement Auscultation: clear to auscultation bilaterally Cardio regular rate, regular rhythm, S1 normal heart sound, S2 normal heart sound and no murmurs GI normal to inspection, nondistended, normoactive bowel sounds, soft to palpation,non-tender and non-distended GI Narrative: History of constipation no CVA tenderness Back/Spine no thoracic nor lumbar tenderness Extremity Extremity Narrative: Right hip pain that radiates to the right knee. Knee immobilizer in place. Right Lower Extremity: hip joint ROM (Decreased range of motion. Subjective pain) Skin no rashes or lesions noted General Skin Exam: no breakdown Hair: normal Nails: normal Neuro oriented x3 Sensorium / Orientation: awake, alert, oriented to person, oriented to place andoriented to time Speech: speech normal Psych mental status grossly normal Attitude: calm and engaged Activity / Motor Behavior: appropriate eye contact Speech: normal speech Thought Process: normal thought process Thought Content: normal thought content Attention / Concentration: attention grossly intact Memory / Cognition: other Some memory deficit but states "I have gotten forgetful as of gotten older." Results Medical Records Data Attestation: I reviewed the patient's medical records Lab / Micro Data Attestation: I reviewed the patient's lab results. 03/07/25 06:08 03/07/25 06:08 Labs: Laboratory Results - last 24 hr 03/06/25 16:14: POC Glucose 175 H 03/07/25 06:08: WBC 7.8, RBC 3.20 L, Hgb 10.4 L, Hct 30.1 L, MCV 94.1, MCH 32.5 H, MCHC 34.6, RDW Std Deviation 50.6 H, RDW Coeff of Cas 14.6, Plt Count 295, MPV 9.1, Immature Gran % (Auto) 0.400, Neut % (Auto) 72.9 H, Lymph % (Auto) 15.8L, Carlton % (Auto) 6.2, Eos % (Auto) 4.4, Baso % (Auto) 0.3, Absolute Neuts (auto)5.7, Absolute Lymphs (auto) 1.23, Nucleated RBC % 0, Sodium 128 L, Potassium 4.3,Chloride 95 L, Carbon Dioxide 23.6, Anion Gap 10, BUN 13, Creatinine 0.58 L, Estim Creat Clear Calc42.71 L, Est GFR (MDRD) Non-Af 90, BUN/Creatinine Ratio22.0 H, Glucose 105 H, Calcium 8.7, Phosphorus 2.8, Magnesium 1.9, Total Bilirubin 0.30, AST 20, ALT 18, Alkaline Phosphatase 53, Total Protein 5.5 L, Albumin 3.2 L, Globulin 2.3, Albumin/Globulin Ratio 1.4 Imaging Right hip in the emergency department was dislocated follow-up x-ray after reduction x 2 showed dislocation reduced. Assessment & Plan Assessment/Plan (1) Dislocation of right hip: QUALIFIERS: Qualified Code(s): S73.004D - Unspecified dislocation ofright hip, subsequent encounter PLAN: 1. Continue with therapy 2. PT OT evaluation and treatment 3. Scheduled Tylenol and oxycodone for pain management (2) Liver lesion: PLAN: 1. Continue to monitor 2. Recommend follow-up with GI (3) Hypertension: QUALIFIERS: Hypertension type: primary hypertension Qualified Code(s): I10 - Essential (primary) hypertension PLAN: 1. Vital signs every shift 2. Lisinopril 20 mg p.o. daily (4) GERD (gastroesophageal reflux disease): QUALIFIERS: Esophagitis presence: esophagitis presence not specified Qualified Code(s): K21.9 - Gastro-esophageal reflux disease without esophagitis PLAN: 1. Protonix 40 mg p.o. daily (5) Chronic constipation: PLAN: 1. Monitor for constipation 2. Pema glycol 17 g p.o. daily (6) History of ischemic colitis: PLAN: 1. Continue to monitor 2. Patient is familiar with dietary restrictions to prevent pain (7) Fracture, intertrochanteric, right femur: QUALIFIERS: Fracture type: closed Qualified Code(s): S72.141D - Displaced intertrochanteric fracture of right femur, subsequent encounter for closed fracture with routine healing PLAN: 1. Continue to monitor 2. Resolved. (8) Anxiety: PLAN: 1. Continue to monitor 2. Teaching of deep breathing exercises and relaxation 3. Duloxetine 30 mg p.o. daily 4.. Consider Xanax 0.125 mg p.o. as needed for anxiety in the event patient hasuncontrolled anxietynot relieved with deep breathing and relaxation exercises. (9) Post-op pain: PLAN: 1. Scheduled acetaminophen 1000 mg p.o. every 8 hours 2. Scheduled oxycodone 5 mg p.o. every 8 hours. Will change to as needed once pain is controlled. (10) Back pain: QUALIFIERS: Back pain laterality: unspecified Back pain location:low back pain Chronicity: chronic Sciatica presence: without sciatica Qualified Code(s): M54.50 - Low back pain, unspecified; G89.29 -Other chronic pain PLAN: 1. Continue to monitor. 2. 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 Teaching of relaxation exercises 2. Melatonin 3 mg p.o. at bedtime (12) History of SIADH: (13) Hyponatremia: (14) History of iron deficiency anemia: Charges/Coding Visit Charges Inpatient E&M: 44169 Init Hosp L2 Documented by User: Dr. Justina Perea DO 03/08/25 14:23 HPI - General General Date of Admission: 03/06/25 HPI Narrative MAY LEONARD, is a very pleasant 84-year-old female with past medical history of hypertension, GERD, chronic constipation, anxiety, liver lesion, right hip prosthesis, arthritis, ulcerative colitis,irritable bowel syndrome and right hip dislocation. Per chart review I did note that the patient did have a right hip repair 2 years ago. Last year she did have a fracture repair of the same hip. Incidental finding of a right lobe liver lesion in which patient states itis benign on 01/09/2025. Patient was seen by her orthopedic physician on 03/04/2025 and there was no dislocation noted. I then met with the patient at bedside. Patient is alert and oriented x 4. She is very pleasant and conversant. She did work with PT/OT this morning and is sitting in a bedside recliner. Patient states that on 03/04 in the late afternoon she bent to 90 degrees to clean up from her cat and felt a shift in her right hip. She then states that she had excruciating pain. She then states that she sat on the commode a little bit later in which she felt a huge "pop." And felt that her hip "popped back into place." And had a relief of her pain. She then went to bed without incidence. Upon waking in the morning, patient states excruciating pain to the right hip and was unable to walk. She then called her caregiver,, Chuyita, in which she did arrive intake patient to the emergency department. In the emergency department at [facility], patient was found to have a right hip dislocation. First reduction was unsuccessful andrequired a second reduction which was successful. They then placed her in a knee immobilizer to help her tokeep her leg straight with instructions to follow-up with her orthopedic physician. She was then discharged home. Upon arrival at home patient's son-in-law, Sergei, had go difficulty caring for his [id number] whom lives alone at baseline. He then contacted the inpatient rehab unit for admission forpain control and PT/OT services to assist with mobilization and to get her back to her baseline with a goal of returning home independently. At baseline the patient does utilize a walker. Patient does endorse that her son-in-law Sergei Boo is her surrogate decision maker in the event that she is unable to make decisions for herself. She also endorses that her CODE STATUS is full code. I did verify the patient's home medications with her. Patient does have some hyponatremia this morning with sodium of 128 and a chloride of 95. Patient states that she does have chronic hyponatremia. She does have history of iron deficiency anemia. Her current hemoglobin is 10.4 andhematocrit is 30.1. Platelets are within normal limits at 295. She currently denies abdominal pain and does take MiraLAX for her chronic constipation. Patient does acknowledge that she has difficulty sleeping at night and we did discuss utilization of melatonin which she is open to. We also discussed her anxiety and that she "used to take" lorazepam 0.5 mg p.o. twice daily as needed for anxiety. I did provide some teaching on deep breathing exercises which the patient stated appreciation. According to her orders patient's Ativan has been discontinued thus I have discontinued her medication here. Will consider addition of Xanax if needed, going forward. Reported by nursing overnight that the patient did have some snoring. Patient states that she does sleep flat on her back because of previous injuries to bilateral shoulders. We did discuss the possibility of propping up slightly during sleep to assist with snoring. Will do an overnight trend of her pulse ox. Patient does state that she currently has pain of 6/10 we did discuss schedulingher Tylenol every 8hours to assist with better pain control. She does take oxycodone 5 mg p.o. as needed every 6 hoursat home. I have scheduled her oxycodone 5 mg p.o. every 8 hours in order to assist with pain control over the next couple of days and then will transition to as needed. Patient does have anOARRS score of 40. All questions the patient had were answered. Dr. Perea was updated on patient's status. Vital signs stable. The pt was independently interviewed and examined. Since the Tylenol and Oxycodone have been scheduled the pain is better controlled. 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 In November 2024 her sodium was 133 and at that time the BUN was 21 with a creatinine of 0.57. I suspect she received intravenous fluids in the emergency room because her BUN is now down to 13 and her creatinine is stable at0.58. The sodium is dropped to 128. She is not on fluid restriction and is noton salt tablets. Iron studies in September 2024 showed an ironsaturation of 20.4which is normal. Her ferritin was 103. Iron studies in June 2024 were consistent with iron deficiency. She is chronically on Protonix. she has a hx of UC and has had heme + stools in the past. She has seen Dr. Boogie for low sodium in the past and was told to limit fluid intake. She had IV fluids in the ED and now she is volume overloaded. She sleptbetter last night. We discussed AL and she is OK with going to AL at [place]. Her nephew and her brother have toured a few places and they think she needs AL. She tells me that she has been having trouble cooking for herself and that even taking care of the cat has become too much for her. She had her last hip surgery with Dr. Callahan 1 year ago and it was a THR. She does not know if it was a posterior or anterior approach. She saw Dr. Callahan not too long ago and told him it sometimesseemed to pop out and back in but, hedid not feel at that time that it was a problem. She has a hx of chronic back pain and sees Dr. Guzmán for pain management. She has numbness in her feet. She sometimes uses a walker and sometimes a cane. She has been living independently up until now and has anaide that comes in 3 times a week. I agree with the physical findings documented by Carly Villavicencio NP withno exceptions. [place] [address] [place]/day to her diet. Start salt tabs 1 GM BID, 1 dose Lasix today. Recheck a BMP Tuesday. Check iron studies. Check a Hemoccult stool. [facility] Medical History (Updated 03/08/25 @ 14:[address] Justina Perea, ) History of iron deficiency anemia Hyponatremia History of SIADH Contusion of right wrist Acute lower gastrointestinal bleeding History of echocardiogram Wears glasses Post-menopausal Anxiety Alcohol use History of steroid therapy Ambulates with cane Arthritis Back pain Migraine headache Constipation Former smoker Leg cramps History of pain when walking History of fracture of leg Hypertension Home Medications ?Medication ?Instructions ?Recorded ?Last Taken ?Type lisinopril 20 mg tablet 20 mg PO DAILY blood pressur e 10/23/21 12/09/23 History calcium 600 mg (as 1 tab PO DAILY supplement 12/09/23 History carbonate)-vitamin D3 5 mcg (200 unit) tablet pantoprazole 40 mg tablet,delayed 40 mg PO DAILY reflu x #30 tabs 12/13/23 Unknown Rx release ferrous sulfate 325 mg (65 mg 325 mg PO DAILY suppleme nt 03/07/24 Unknown History iron) tablet (Feosol) celecoxib 200 mg capsule 200 mg PO DAILY pain 4 Unknown History oxycodone 5 mg tablet 5 mg PO Q6H PRN pain 4 Unknown History primidone 50 mg tablet 50 mg PO QHS Essential Tremo r 06/12/24 Unknown History dicyclomine 10 mg capsule 10 mg PO BID IBS 30 days #60 caps 01/09/25 Unknown Rx mesalamine 1.2 gram tablet,delayed 1.2 g PO DAILY IBS 30 days #30 tabs 01/09/25 Unknown Rx release acetaminophen 500 mg tablet 1,000 mg PO Q8 PRN pain Unknown History duloxetine 30 mg capsule,delayed 30 mg PO DAILY Depres wolfgang 03/06/25 Unknown History release lorazepam 0.5 mg tablet 0.5 mg PO BID PRN PRN anxiet y 03/06/25 Unknown History Allergy/AdvReac Type Severity Reaction Status Date / Time venom-honey bee Allergy Hives Verified 03/05/25 09:46 venom-wasp Allergy Hives Verified 03/05/25 09:46 naproxen AdvReac Other Verified 03/05/25 09:46 prednisone AdvReac Other Verified 03/05/25 09:46 Family History unable to obtain Surgical History H/O shoulder replacement Hx of right cataract extraction Hx of left cataract extraction Hx of colonoscopy Social History adopted: No household members: none housing: house number of children: 1 current occupational status: retired Smoking Status: Former smoker alcohol intake: current alcohol intake frequency: holidays/special occasions only seatbelt use: always do you feel safe at home: Yes additional social history: Results Lab / Micro Data 03/07/25 06:08 03/07/25 06:08 Assessment & Plan Assessment/Plan (1) Dislocation of right hip: QUALIFIERS: Qualified Code(s): S73.004D - Unspecified dislocation ofright hip, subsequent encounter (2) Liver lesion: (3) Hypertension: QUALIFIERS: Hypertension type: primary hypertension Qualified Code(s): I10 - Essential (primary) hypertension (4) GERD (gastroesophageal reflux disease): QUALIFIERS: Esophagitis presence: esophagitis presence not specified Qualified Code(s): K21.9 - Gastro-esophageal reflux disease without esophagitis (5) Chronic constipation: (6) History of ischemic colitis: (7) Fracture, intertrochanteric, right femur: QUALIFIERS: Fracture type: closed Qualified Code(s): S72.141D - Displaced intertrochanteric fracture of right femur, subsequent encounter for closed fracture with routine healing (8) Anxiety: (9) Post-op pain: (10) Back pain: QUALIFIERS: Back pain laterality: unspecified Back pain location:low back pain Chronicity: chronic Sciatica presence: without sciatica Qualified Code(s): M54.50 - Low back pain, unspecified; G89.29 -Other chronic pain (11) Insomnia: QUALIFIERS: Insomnia type: due to medical condition Qualified Code(s): 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 [place] fluid restriction of 1200 cc daily. Start sodium chloride tabs 1 g p.o. twice daily. Lasix 40 mg x 1. Recheck a BMP on Tuesday. (13) Hyponatremia: (14) History of iron deficiency anemia: PLAN: Check iron studies. Check a Hemoccult stool. 03/07/25 1101 Cosigner Signature (if applicable): 03/08/25 1423 CC: JOHNNIE Montiel; Dr. Rosaura Peck MD; Dr. Justina Marshall, DO~ Signed [facility]07-04-2025 History and physical note [facility] Medical Records Department [address] [place] [address] Post Admission Physician Roland 03/07/25 1055 MR#: [id number] Acct: [id number] Name: MAY LEONARD Rep #:[id number] 3 : 1940 84 From: Carly BLAIR PCP: Dr. Rosaura Peck MD Status:AD M IN [id number] Documented by User: JOHNNIE Nguyen 03/07/25 11:01 Admission Information Primary Diagnosis:: Pain and disability following right hip dislocation Actual Problem List:: Pain, ALteration in Cmfrt, Bowel, Constipation, Alterationin Sleep, Mobility Impaired, Self Care Deficit, BP, Hypertension and Alteration-Leisure Activ. Potential Problem List:: Falls and Depression Risk of Complications DVT: LUCIA Hose Bleeding: Monitor Lab Values Urinary Tract Infection: Monitor for frequency, burning, discomfort, or incontinence. Falls: Patient will be evaluated for Fall Precautions and Patient will be placedon Fall Precautionsas indicated per protocol. Skin Breakdown: Nursing will assess skin daily using assessment tool. Pain: Clinical staff will assess patient's pain level per protocol., Medicationswill be given, if needed, and the pain level reassessed. and Other methods: Massage, distraction, decrease stimulus, etc. used PRN. Plan of Care Patient requires physician specializing in physical medicine and rehab oversightto provide close medical supervision of rehab issues including: Pain Management,Sleep Problems, Medical and co-morbidity Management and Coordination of treatment team Patient needs Physical Therapy: For a minimum of 1.5 hrs Patient needs Physical Therapy to improve:: Mobility, Strengthening, Transfers, Gait and Balance Patient needs Occupational Therapy: For a minimum of 1.5 hrs Patient needs Occupational Therapy to improve ADL's incl.: Dressing, Toilet transfers, Household tasks and Adaptive Equipment Patient requires 24/7 Rehabilitation Nursing for: Pain Issues, Identifying and preventing risk factors, Monitoring and reporting current medical conditions, Assisting with ambulation, transfer, and all ADL's, Teaching patients about disease process and medications, Family teaching, Providing safe environment andMedication Management Patient needs Commercial Real Estate Assistant/ Case Management for: Discharge Planning, Arranging Home Equipment orServices and Family Interventions Patient needs Dietary and Nutrition Services for: Adequate Nutrition, Nutritional Supplements and Nutritional Education Goals Goals Patient will remain: free from falls and or injury at time of discharge. Patient will perform bed mobility at: Standby Assist. Patient will complete transfers from bed to chair at: Standby Assist. Patient will ambulate: 100 feet Patient will complete upper body dressing at: Standby Assist. Patient will complete lower body dressing at: Standby Assist. Patient will complete toilet transfer at: Standby Assist. Patient will complete toileting at: Standby Assist. Patient will perform bathing at: Standby Assist. Patient will perform Tub/Shower transfer at: Standby Assist. Patient will complete grooming at: Standby Assist. Patient will complete home management skills at: Standby Assist. Patient will achieve: with standby assist Patient will have pain level of: - (Patient's excepted pain level of 5 her last. Patient does have chronic pain.) Patient's skin will: remain intact and free from infection. Patient will receive: adequate nutrition. Discharge Planning Pt Prognosis for Sig. Practical Improv. w/in Reasonable Time: Good Anticipated D/C Destination: Home with Home Health Was Preadmission Assessment Accurate?: Yes Visit Charges Inpatient E&M: 76719 Init Hosp L2 Documented by User: Dr. Justina Perea DO 03/08/25 14:28 Goals Goals Patient will perform eating at: MOD I level of assist. Patient will ambulate: - (150 feet using a wheeled walker with supervision) Patient will complete upper body dressing at: - (Set up) Patient will complete lower body dressing at: - (Minimal assistance with adaptive equipment as needed) Patient will complete toilet transfer at: - (Min assist) Patient will complete toileting at: - (Min assist) Patient will perform bathing at: - (Upper body bathing at supervision and lower body bathing at minassist with adaptive equipment as needed) Patient will perform Tub/Shower transfer at: - (Minimal assistance using DME as needed) Patient will complete grooming at: - (Set up level while standing at the sink) Patient will achieve: - (Ascend/descend 2 steps using 1 handrail at standby assist) Patient will have pain level of: of 3 or less Discharge Planning Estimated Length of stay (days): 21 Anticipated D/C Destination: Assisted Living Facility 03/07/25 1103 Cosigner Signature (if applicable): 03/08/25 1428 CC: ~ Signed [facility]07[facility]03-[facility] Discharge summary Author Wilbert Avilez [facility] Note Date/Time March 05, 2025 3:36p m [facility] Medical Records Department [address] [place] [address] Emergency Department Summary 03/05/25 MR#: [id number] Acct: [id number] Name: MAY LEONARD Rep #:[id number] : 1940 84 From: Wilbert Avilez MD PCP: Dr. Rosaura Peck MD Status:RE G ER Location: ED HPI History of Present Illness HPI Narrative: 84-year-old female prior hip fracture. Initially repaired 2 years ago and then she had what sounds like a periprosthetic fracture that she had repaired a year ago. Says it feels like at times her hip sliding out of place. She saw her orthopedic physician yesterday in [place] I did an x-ray told her it looked good. He thought this was muscular according to the patient. Said she bent over lastnight cleaning up from her cat. And this morning had pain in her hip that has not resolved. She said she felt a large pop and has been feeling better. Denies any fall or trauma otherwise. Chief Complaint: Lower Extremity Injury Informant: patient Occured/Mechanism Mechanism/Context: No injury and No blunt trauma Onset/Context/Timing Onset: Today Current Severity: Gone Maximum Severity: Mild Narrative Narrative: 84-year-old female prior right hip replacement. Says at times it feels like it is slipping out of place. Saw orthopedic physician yesterday had negative x-rays. Today had a similar episode but is not feeling better. No fall or trauma. No fever or redness. Prior similar symptoms: Yes Recent Illness/Hospitalization: No PFSH PFSH Medical History Contusion of right wrist Acute lower gastrointestinal bleeding Hyponatremia History of echocardiogram Wears glasses Post-menopausal Anxiety Alcohol use History of steroid therapy Ambulates with cane Arthritis Back pain Migraine headache Constipation Former smoker Leg cramps History of pain when walking History of fracture of leg Hypertension Home Medications ?Medication ?Instructions ?Recorded ?Last Taken ?Type lisinopril 20 mg tablet 20 mg PO DAILY blood pressur e 10/23/21 12/09/23 History acetaminophen 325 mg tablet 650 mg PO Q4H PRN Pain 09/29/22 History (Tylenol) calcium 600 mg (as 1 tab PO DAILY supplement 12/09/23 History carbonate)-vitamin D3 5 mcg (200 unit) tablet pantoprazole 40 mg tablet,delayed 40 mg PO DAILY reflu x #30 tabs 12/13/23 Unknown Rx release ferrous sulfate 325 mg (65 mg 325 mg PO BID supplement 03/07/24 Unknown History iron) tablet (Feosol) polyethylene glycol 3350 17 17 g PO DAILY PRN constipa tion 04/12/24 Unknown History gram/dose oral powder (ClearLax) celecoxib 200 mg capsule 200 mg PO DAILY pain 4 Unknown History oxycodone 5 mg tablet 5 mg PO Q6H PRN pain 4 Unknown History primidone 50 mg tablet 50 mg PO QHS Essential Tremo r 06/12/24 Unknown History docusate sodium 100 mg capsule 100 mg PO BID 30 days # 60 caps 06/14/24 Unknown Rx docusate sodium 100 mg capsule 100 mg PO BID PRN stool softner 08/16/24 Unknown Rx (Colace) #60 caps dicyclomine 10 mg capsule 10 mg PO BID 30 days #60 cap s 01/09/25 Unknown Rx mesalamine 1.2 gram tablet,delayed 1.2 g PO DAILY 30 d ays #30 tabs 01/09/25 Unknown Rx release Allergy/AdvReac Type Severity Reaction Status Date / Time venom-honey bee Allergy Hives Verified 03/05/25 09:46 venom-wasp Allergy Hives Verified 03/05/25 09:46 naproxen AdvReac Other Verified 03/05/25 09:46 prednisone AdvReac Other Verified 03/05/25 09:46 Surgical History H/O shoulder replacement Hx of right cataract extraction Hx of left cataract extraction Hx of colonoscopy Social History adopted: No household members: none housing: house number of children: 1 current occupational status: retired Smoking Status: Former smoker alcohol intake: current alcohol intake frequency: holidays/special occasions only seatbelt use: always do you feel safe at home: Yes additional social history: ROS ROS ED ROS Narrative Denies recent illness. Constitutional Constitutional ED: Denies chills or fever(s) Eyes Eyes: Denies blurry vision ENT ENT ED: Denies ear pain Cardiovascular Cardiovascular: Denies chest pain Respiratory/Chest Respiratory/Chest: Denies cough Gastrointestinal Gastrointestinal: Denies abdominal pain Genitourinary Genitourinary ED: Denies dysuria Musculoskeletal Musculoskeletal: Denies arthralgias Integumentary Denies abscess Neurologic Neurologic: Denies headache(s) Psychiatric Psychiatric: Denies anxiety Endocrine Endocrinology: Denies polydipsia Hematologic/Lymphatic Hematologic/Lymphatic: Denies easy bleeding Allergic/Immunologic Allergic/Immunologic ED: Denies mouth swelling EXAM Physical Exam Narrative Exam Narrative: Well-appearing 84-year-old female. Vital signs are stable afebrile. H EENT exam pupils round reactive light. Mytrex membranes. Lungs clear to auscultation. Heart regular rhythm no murmur. Rate about 60. Chest wall and ribs nontender. Abdomen soft nontender. Back nontender. Hips and pelvis nontender. She has normal flexion extension of both hips. No click or pop. Nosigns of fracture or dislocation. No shortening or rotation. She can flex and extend the right hip and the right knee. Dorsi and plantarflexion intact. Calves are nontender without edema. Neurologically she is awake and alert. Theright hip there is no swelling. There is no redness or warmth. Const Vital Signs: 03/05/25 09:46 03/05/25 13:09 03/05/25 13:15 Temperature 97.3 F L Temperature Source Temporal Pulse Rate 54 L 55 L 57 L Pulse Rate [1 (Initial Baseline)] Pulse Rate [2] Pulse Rate [3] Pulse Rate [4] Pulse Rate [5] Pulse Rate [6] Respiratory Rate 14 16 18 Respiratory Rate [1 (Initial Baseline)] Respiratory Rate [2] Respiratory Rate [3] Respiratory Rate [4] Respiratory Rate [5] Respiratory Rate [6] Blood Pressure 164/81 H 161/85 H 165/82 H Blood Pressure [1 (Initial Baseline)] Blood Pressure [2] Blood Pressure [3] Blood Pressure [4] Blood Pressure [5] Blood Pressure [6] Blood Pressure Mean 108 110 Baseline BP 165/82 Pulse Ox 98 98 99 Oxygen Delivery Method Room Air Room Air Room Air Oxygen Delivery Method [1 (Initial Baseline)] Oxygen Delivery Method [2] Oxygen Delivery Method [4] Oxygen Delivery Method [5] Oxygen Delivery Method [6] Oxygen Flow Rate (L/min) Oxygen Flow Rate (L/min) [1 (Initial Baseline)] Oxygen Flow Rate (L/min) [2] Oxygen Flow Rate (L/min) [3] Oxygen Flow Rate (L/min) [4] Oxygen Flow Rate (L/min) [5] Oxygen Flow Rate (L/min) [6] Fraction of Inspired Oxygen (FIO2) [2] EtCo2 - Document during CPR and with ROSC 36 EtCo2 - Document during CPR and with ROSC [1 (Initial Baseline)] EtCo2 - Document during CPR and with ROSC [3] EtCo2 - Document during CPR and with ROSC [4] EtCo2 - Document during CPR and with ROSC [6] 03/05/25 13:30 03/05/25 13:53 03/05/25 14:00 Temperature Temperature Source Pulse Rate 53 L 64 Pulse Rate [1 (Initial Baseline)] 58 L Pulse Rate [2] 59 L Pulse Rate [3] 76 Pulse Rate [4] Pulse Rate [5] Pulse Rate [6] Respiratory Rate 22 H 20 H Respiratory Rate [1 (Initial Baseline)] 16 Respiratory Rate [2] 16 Respiratory Rate [3] 12 Respiratory Rate [4] Respiratory Rate [5] Respiratory Rate [6] Blood Pressure 149/79 H 149/81 H Blood Pressure [1 (Initial Baseline)] 168/82 H Blood Pressure [2] 142/78 H Blood Pressure [3] 149/79 H Blood Pressure [4] Blood Pressure [5] Blood Pressure [6] Blood Pressure Mean Baseline BP Pulse Ox 100 100 Oxygen Delivery Method Nasal Cannula Nasal Cannula Oxygen Delivery Method [1 (Initial Baseline)] Room Air Oxygen Delivery Method [2] Nasal Cannula Oxygen Delivery Method [4] Oxygen Delivery Method [5] Oxygen Delivery Method [6] Oxygen Flow Rate (L/min) 6 2 Oxygen Flow Rate (L/min) [1 (Initial Baseline)] Oxygen Flow Rate (L/min) [2] 6 Oxygen Flow Rate (L/min) [3] 6 Oxygen Flow Rate (L/min) [4] Oxygen Flow Rate (L/min) [5] Oxygen Flow Rate (L/min) [6] Fraction of Inspired Oxygen (FIO2) [2] 94 EtCo2 - Document during CPR and with ROSC 35 34 EtCo2 - Document during CPR and with ROSC [1 (Initial Baseline)] 36 EtCo2 - Document during CPR and with ROSC [3] 34 EtCo2 - Document during CPR and with ROSC [4] EtCo2 - Document during CPR and with ROSC [6] 03/05/25 14:04 03/05/25 14:08 03/05/25 14:50 Temperature Temperature Source Pulse Rate 56 L 57 L 56 L Pulse Rate [1 (Initial Baseline)] Pulse Rate [2] Pulse Rate [3] Pulse Rate [4] Pulse Rate [5] Pulse Rate [6] Respiratory Rate 55 H 15 32 H Respiratory Rate [1 (Initial Baseline)] Respiratory Rate [2] Respiratory Rate [3] Respiratory Rate [4] Respiratory Rate [5] Respiratory Rate [6] Blood Pressure 160/81 H 154/77 H Blood Pressure [1 (Initial Baseline)] Blood Pressure [2] Blood Pressure [3] Blood Pressure [4] Blood Pressure [5] Blood Pressure [6] Blood Pressure Mean Baseline BP 154/77 Pulse Ox 100 99 99 Oxygen Delivery Method Nasal Cannula Room Air Room Air Oxygen Delivery Method [1 (Initial Baseline)] Oxygen Delivery Method [2] Oxygen Delivery Method [4] Oxygen Delivery Method [5] Oxygen Delivery Method [6] Oxygen Flow Rate (L/min) 2 Oxygen Flow Rate (L/min) [1 (Initial Baseline)] Oxygen Flow Rate (L/min) [2] Oxygen Flow Rate (L/min) [3] Oxygen Flow Rate (L/min) [4] Oxygen Flow Rate (L/min) [5] Oxygen Flow Rate (L/min) [6] Fraction of Inspired Oxygen (FIO2) [2] EtCo2 - Document during CPR and with ROSC 32 27 32 EtCo2 - Document during CPR and with ROSC [1 (Initial Baseline)] EtCo2 - Document during CPR and with ROSC [3] EtCo2 - Document during CPR and with ROSC [4] EtCo2 - Document during CPR and with ROSC [6] 03/05/25 15:00 03/05/25 15:10 03/05/25 15:15 Temperature Temperature Source Pulse Rate 61 56 L Pulse Rate [1 (Initial Baseline)] 57 L Pulse Rate [2] Pulse Rate [3] Pulse Rate [4] 56 L Pulse Rate [5] 54 L Pulse Rate [6] 61 Respiratory Rate 16 30 H Respiratory Rate [1 (Initial Baseline)] 16 Respiratory Rate [2] Respiratory Rate [3] Respiratory Rate [4] 12 Respiratory Rate [5] 10 L Respiratory Rate [6] 16 Blood Pressure 145/81 H 156/86 H Blood Pressure [1 (Initial Baseline)] 167/81 H Blood Pressure [2] Blood Pressure [3] Blood Pressure [4] 167/81 H Blood Pressure [5] 154/99 H Blood Pressure [6] 165/82 H Blood Pressure Mean 102 Baseline BP Pulse Ox 95 98 Oxygen Delivery Method Room Air Room Air Oxygen Delivery Method [1 (Initial Baseline)] Nasal Cannula Oxygen Delivery Method [2] Oxygen Delivery Method [4] Nasal Cannula Oxygen Delivery Method [5] Nasal Cannula Oxygen Delivery Method [6] Nasal Cannula Oxygen Flow Rate (L/min) Oxygen Flow Rate (L/min) [1 (Initial Baseline)] 5 Oxygen Flow Rate (L/min) [2] Oxygen Flow Rate (L/min) [3] Oxygen Flow Rate (L/min) [4] 5 Oxygen Flow Rate (L/min) [5] 5 Oxygen Flow Rate (L/min) [6] 5 Fraction of Inspired Oxygen (FIO2) [2] EtCo2 - Document during CPR and with ROSC 30 EtCo2 - Document during CPR and with ROSC [1 (Initial Baseline)] 33 EtCo2 - Document during CPR and with ROSC [3] EtCo2 - Document during CPR and with ROSC [4] 26 EtCo2 - Document during CPR and with ROSC [6] 31 03/05/25 15:16 Temperature Temperature Source Pulse Rate 65 Pulse Rate [1 (Initial Baseline)] Pulse Rate [2] Pulse Rate [3] Pulse Rate [4] Pulse Rate [5] Pulse Rate [6] Respiratory Rate 18 Respiratory Rate [1 (Initial Baseline)] Respiratory Rate [2] Respiratory Rate [3] Respiratory Rate [4] Respiratory Rate [5] Respiratory Rate [6] Blood Pressure 156/86 H Blood Pressure [1 (Initial Baseline)] Blood Pressure [2] Blood Pressure [3] Blood Pressure [4] Blood Pressure [5] Blood Pressure [6] Blood Pressure Mean Baseline BP Pulse Ox 100 Oxygen Delivery Method Nasal Cannula Oxygen Delivery Method [1 (Initial Baseline)] Oxygen Delivery Method [2] Oxygen Delivery Method [4] Oxygen Delivery Method [5] Oxygen Delivery Method [6] Oxygen Flow Rate (L/min) 2 Oxygen Flow Rate (L/min) [1 (Initial Baseline)] Oxygen Flow Rate (L/min) [2] Oxygen Flow Rate (L/min) [3] Oxygen Flow Rate (L/min) [4] Oxygen Flow Rate (L/min) [5] Oxygen Flow Rate (L/min) [6] Fraction of Inspired Oxygen (FIO2) [2] EtCo2 - Document during CPR and with ROSC EtCo2 - Document during CPR and with ROSC [1 (Initial Baseline)] EtCo2 - Document during CPR and with ROSC [3] EtCo2 - Document during CPR and with ROSC [4] EtCo2 - Document during CPR and with ROSC [6] Positive well nourished and well developed; Negative for obese, cachectic, contractures or unkempt General Appearance ED: well developed and NAD; Negative for unkempt, cachectic or contractures Nutritional Appearance: Negative for cachectic or obese HEENT Reports moist mucous membranes normocephalic and atraumatic Eyes PERRL Neck full ROM and supple Chest Wall inspection of chest normal and palpation of chest normal Resp normal respiratory effort, no retractions and clear to auscultation bilaterally Auscultation: Negative for rales, rhonchi, wheezes or diminished lung sounds Cardio regular rate, regular rhythm, S1 normal heart sound, S2 normal heart sound and no murmurs Rate: Negative for bradycardia or tachycardic Rhythm: Negative for abnormal rhythm Bruits: Negative for other GI non-tender, non-distended and no masses Auscultation: normoactive bowel sounds Palpation: soft; Negative for tender, guarding or rebound tenderness present Back/Spine no CVA tenderness General Back: Negative for CVA tenderness Cervical Spine: Negative for cervical spine tenderness Thoracic Spine / Upper Back: Negative for thoracic spinal tenderness Lumbar Spine / Lower Back: Negative for lumbar spinal tenderness Extremity normal to inspection and full ROM Extremity Narrative: Nontender.. No shortening. No rotation. No redness or warmth. The hip is normal in appearance. Neuro oriented x3, CN's II-XII intact bilaterally, moves all extremities and no sensory deficits noted Sensorium / Orientation: alert, oriented to person, oriented to place and oriented to time Motor Exam: strength 5/5 throughout Psych mental status grossly normal Appearance: Negative for unkempt Skin no wounds Lesions: no lesions Rashes: no rashes MDM MDM MDM Narrative Medical decision making narrative: Patient with right hip that feels like it is slipping in and out of the joint. Currently symptom-free. X-ray will be obtained. Initial reduction x-ray appeared to still be dislocated. Patient was procedurally sedated again. Initially given 50 of propofol and 30 more IV for a total of 80 mg of propofol. Using traction and holding her hip down she seemed to go back to length and it appeared to be back in the joint. She had good range of motion passively. We are getting a repeat x-ray. I have the patient's orthopedic physician from [place] on page to go over it with him. Repeat exam patient is doing well at 3:25 PM post procedural sedation. She and her friend are comfortable with her being discharged to home. I did speak to her orthopedic physician in [place]'s office. They will call her and set up appointment for . She knows to leave the knee immobilizer on. History & Record Review Discussion w/independent historian: Patient Additional record(s) reviewed:: Prior inpatient record, Prior outpatient record, Prior ED visit and Prior labs Radiography Diagnostic Testing: Clinical Impression(s) from Imaging Studies Hip/Pelvis X-Ray 03/05/25 10:50 IMPRESSION: There is dislocation of the femoral component of a right total hip prosthesis. Critical results were discussed with Dr. Avilez by Dr. Bartlett at the time of dictation. Reading Location: [facility] Hip X-Ray 03/05/25 13:55 IMPRESSION: The femoral head appears to be not completely situated in the acetabulum, likely subluxed cranially. [facility] Right hip and pelvis x-ray multiple views interpreted by myself shows Initial postreduction right hip x-ray was still dislocated. Or at least subluxed outside the acetabular cup of the prosthesis. Repeat x-ray after the second attempt of the reduction shows a proper reduction with the prosthesis in the acetabular cup. Procedures Procedural Sedation 1 (Initial Baseline): Consent Signed: Yes Any Problems With Anesthesia: No You/Your family experience fever (hyperthermia) w/anesthesia: No Sedation medication: Propofol Dose: 70 Route: IV Total Moderate Sedation Units: 15 Maliampati Score: Class II ASA Classification: II Comment:: 84-year-old female with dislocated right hip prosthesis. Has not eaten today. She had no breakfast or lunch. Has had no problems with anesthesia in the past. She will be treated with IV propofol for procedural sedation for right hip manual reduction. Patient was sedated initially with 40 mg of propofol then another 30. Using manual reduction and nursing holding down her pelvis I was able to get the right hip back in the prosthesis. Right hip came back to length and was the same length as the left leg. Prior to reduction it was about 3 inches shorter. Postreduction x-ray being obtained. Knee immobilizer replaced. During the postreduction x-ray I think she might of redislocated the hip. The x- ray was positive for still being dislocated. She was again treated with propofol a total of 80 mg IV this time. We stabilized her pelvis and was able to manually reduce the dislocation. The post procedure x-ray shows a good reduction. She has been placed in a knee immobilizer. Currently she is doing well. She is not having any pain. She is awake and alert. She will be discharged after the procedural sedation wears off. Procedural sedation for the second reduction was about 15 minutes also. Discharge Plan Triage Chief Complaint: Lower Extremity Injury ED Provider: Wilbert Avilez Dx/Rx/DC Orders Clinical Impression: Dislocation of right hip, Dislocation of hip prosthesis Instructions: ED Joint Dislocation Prescriptions: No Action mesalamine 1.2 gram tablet,delayed release (DR/EC) 1.2 g PO DAILY 30 Days Qty: 30 1RF dicyclomine 10 mg capsule 10 mg PO BID 30 Days Qty: 60 3RF lisinopril 20 mg tablet 20 mg PO DAILY acetaminophen [Tylenol] 325 mg Tablet 650 mg PO Q4H PRN (Reason: Pain) calcium carbonate-vitamin D3 600 mg-5 mcg (200 unit) Tablet 1 tab PO DAILY pantoprazole 40 mg Tablet,Delayed Release (Dr/Ec) 40 mg PO DAILY Qty: 30 0RF ferrous sulfate [Feosol] 325 mg (65 mg iron) tablet 325 mg PO BID polyethylene glycol 3350 [ClearLax] 17 gram/dose powder 17 g PO DAILY PRN (Reason: constipation) celecoxib 200 mg capsule 200 mg PO DAILY primidone 50 mg tablet 50 mg PO QHS Patient Comments: 25mg by mouth once daily at bedtime for essential tremor oxycodone 5 mg tablet 5 mg PO Q6H PRN (Reason: pain) docusate sodium 100 mg Capsule 100 mg PO BID 30 Days Qty: 60 0RF docusate sodium [Colace] 100 mg capsule 100 mg PO BID PRN Qty: 60 3RF Primary Care Provider: Rosaura Peck Referrals: Rosaura Peck MD [Primary Care Provider] - Activity Restrictions/Additional Instructions: Call and follow-up with your orthopedic hip surgeon in [place], Dr. Gracia, as soon as possible. Leave the knee immobilizer on is much as possible. You can take it off to shower or bathe. But with that on it will make it much harder for you to dislocate the knee. Tylenol for pain. Print Language: Surinamese Disposition Disposition: Home, Self Care What to do if you have Problems For any increased pain, shortness of breath, bleeding, nausea or vomiting, chestpain, or any unexpected problems, contact your Primary Care Provider. Call [facility] ([phone]) or report to the closest Emergency Room. Call 911 if necessary. 03/05/25 1536 <Electronically signed by Wilbert Avilez MD> Cosigner Signature (if applicable): CC: Dr. Rosaura Peck MD ~ Signed [facility] Work Phone: [phone] Radiology Diagnostic study note [facility] Imaging Services [address] [place], [place] [id number] Knee 1 or 2 Views MR#: [id number] Acct: [id number] Name: MAY LEONARD Rep #: [id number] : 1940 F 84 From: Al Carrillo MD PCP: Dr. Rosaura Peck MD Status: RE G ER Study:Knee 1 or 2 Views Date of Exam: Exam# [id number] Ordering Dr: Helena Faustin DO PROCEDURE: KNEE 1 OR 2 VIEWS 03/05/2025 REASON FOR EXAM: PAIN TECHNIQUE: KNEE 1 OR 2 VIEWS COMPARISON: None. RAD/Knee 1 or 2 Views IMPRESSION: Previous screw removal at the distal femoral shaft. Moderate arterial calcification is noted. No right knee joint effusion is seen. Prominent medial and lateral meniscal chondrocalcinosis is seen. Tricompartmental degenerative changes are seen, with probable moderate medial joint narrowing and with moderately severe to severe patellofemoral joint narrowing likely present, as well. No acute fracture or dislocation is evident. If clinical concern persists, short-term follow-up imaging may be obtained to rule out a currently occult fracture. Reading Location: [place] [address] CC: Dr. Rosaura Peck MD; Dr. Kevin Faustin DO ~ Birthing Nurse: Signed [facility]07-01-2025 Radiology Diagnostic study note [facility] Imaging Services [address] [place] [address] [id number] Hip Min 2 Views (Portable) MR#: [id number] Acct: [id number] Name: MAY LEONARD Rep #: [id number] 8 : 1940 F 84 From: Al Carrillo MD PCP: Dr. Rosaura Peck MD Status: RE G ER Study:Hip Min 2 Views (Portable) Date of Exam : 03/05/25 Exam# [id number] Ordering Dr: Joesph Avilez MD PROCEDURE: HIP MIN 2 VIEWS (PORTABLE) 03/05/2025 REASON FOR EXAM: RIGHT HIP DISLOCATION REDUCED TECHNIQUE: HIP MIN 2 VIEWS (PORTABLE) COMPARISON: Right hip study earlier 03/05/2025 (approximately 1353 hours) RAD/Hip Min 2 Views (Portable) IMPRESSION: Interval relocation of the right glenohumeral joint of the right total hip prosthesis is now seen. No fracture site is evident. The remainder of the examination is unchanged. Reading Location: [place] [address] CC: Dr. Wilbert Avilez MD; Dr. Rosaura Peck MD ~ Birthing Nurse: Signed [facility]07-01-2025 Discharge summary [facility] Medical Records Department [address] [place] [address] Emergency Department Summary 03/05/25 MR#: [id number] Acct: [id number] Name: MAY LEONARD Rep #:[id number] 8 : 1940 84 From: Wilbert Avilez MD PCP: Dr. Rosaura Peck MD Status:RE G ER Location: ED HPI History of Present Illness HPI Narrative: 84-year-old female prior hip fracture. Initially repaired 2 years ago and then she had what sounds like a periprosthetic fracture that she had repaired a year ago. Says it feels like at times her hipsliding out of place. She saw her orthopedic physician yesterday in [place] I did an x-ray told her it looked good. He thought this was muscular according to the patient. Said she bent over lastnight cleaning up from her cat. And this morning had pain in her hip that has not resolved. She said she felt a large pop and has been feeling better. Denies any fall or trauma otherwise. Chief Complaint: Lower Extremity Injury Informant: patient Occured/Mechanism Mechanism/Context: No injury and No blunt trauma Onset/Context/Timing Onset: Today Current Severity: Gone Maximum Severity: Mild Narrative Narrative: 84-year-old female prior right hip replacement. Says at times it feels like it is slipping out of place. Saw orthopedic physician yesterday had negative x- rays. Today had a similar episode but is notfeeling better. No fall or trauma. No fever or redness. Prior similar symptoms: Yes Recent Illness/Hospitalization: No PFSH PFSH Medical History Contusion of right wrist Acute lower gastrointestinal bleeding Hyponatremia History of echocardiogram Wears glasses Post-menopausal Anxiety Alcohol use History of steroid therapy Ambulates with cane Arthritis Back pain Migraine headache Constipation Former smoker Leg cramps History of pain when walking History of fracture of leg Hypertension Home Medications ?Medication ?Instructions ?Recorded ?Last Taken ?Type lisinopril 20 mg tablet 20 mg PO DAILY blood pressur e 10/23/21 12/09/23 History acetaminophen 325 mg tablet 650 mg PO Q4H PRN Pain 09/29/22 History (Tylenol) calcium 600 mg (as 1 tab PO DAILY supplement 12/09/23 History carbonate)-vitamin D3 5 mcg (200 unit) tablet pantoprazole 40 mg tablet,delayed 40 mg PO DAILY reflu x #30 tabs 12/13/23 Unknown Rx release ferrous sulfate 325 mg (65 mg 325 mg PO BID supplement 03/07/24 Unknown History iron) tablet (Feosol) polyethylene glycol 3350 17 17 g PO DAILY PRN constipa tion 04/12/24 Unknown History gram/dose oral powder (ClearLax) celecoxib 200 mg capsule 200 mg PO DAILY pain 4 Unknown History oxycodone 5 mg tablet 5 mg PO Q6H PRN pain 4 Unknown History primidone 50 mg tablet 50 mg PO QHS Essential Tremo r 06/12/24 Unknown History docusate sodium 100 mg capsule 100 mg PO BID 30 days # 60 caps 06/14/24 Unknown Rx docusate sodium 100 mg capsule 100 mg PO BID PRN stool softner 08/16/24 Unknown Rx (Colace) #60 caps dicyclomine 10 mg capsule 10 mg PO BID 30 days #60 cap s 01/09/25 Unknown Rx mesalamine 1.2 gram tablet,delayed 1.2 g PO DAILY 30 d ays #30 tabs 01/09/25 Unknown Rx release Allergy/AdvReac Type Severity Reaction Status Date / Time venom-honey bee Allergy Hives Verified 03/05/25 09:46 venom-wasp Allergy Hives Verified 03/05/25 09:46 naproxen AdvReac Other Verified 03/05/25 09:46 prednisone AdvReac Other Verified 03/05/25 09:46 Surgical History H/O shoulder replacement Hx of right cataract extraction Hx of left cataract extraction Hx of colonoscopy Social History adopted: No household members: none housing: house number of children: 1 current occupational status: retired Smoking Status: Former smoker alcohol intake: current alcohol intake frequency: holidays/special occasions only seatbelt use: always do you feel safe at home: Yes additional social history: ROS ROS ED ROS Narrative Denies recent illness. Constitutional Constitutional ED: Denies chills or fever(s) Eyes Eyes: Denies blurry vision ENT ENT ED: Denies ear pain Cardiovascular Cardiovascular: Denies chest pain Respiratory/Chest Respiratory/Chest: Denies cough Gastrointestinal Gastrointestinal: Denies abdominal pain Genitourinary Genitourinary ED: Denies dysuria Musculoskeletal Musculoskeletal: Denies arthralgias Integumentary Denies abscess Neurologic Neurologic: Denies headache(s) Psychiatric Psychiatric: Denies anxiety Endocrine Endocrinology: Denies polydipsia Hematologic/Lymphatic Hematologic/Lymphatic: Denies easy bleeding Allergic/Immunologic Allergic/Immunologic ED: Denies mouth swelling EXAM Physical Exam Narrative Exam Narrative: Well-appearing 84-year-old female. Vital signs are stable afebrile. H EENT exam pupils round reactive light. Mytrex membranes. Lungs clear to auscultation. Heart regular rhythm no murmur. Rate about 60. Chest wall and ribs nontender. Abdomen soft nontender. Back nontender. Hips and pelvis nontender. She has normal flexion extension of both hips. No click or pop. Nosigns of fracture or dislocation. No shortening or rotation. She can flex and extend the right hip and the right knee. Dorsi and plantarflexion intact. Calves are nontender without edema. Neurologically she is awake and alert. Theright hip there is no swelling. There is no redness or warmth. Const Vital Signs: 03/05/25 09:46 03/05/25 13:09 03/05/25 13:15 Temperature 97.3 F L Temperature Source Temporal Pulse Rate 54 L 55 L 57 L Pulse Rate [1 (Initial Baseline)] Pulse Rate [2] Pulse Rate [3] Pulse Rate [4] Pulse Rate [5] Pulse Rate [6] Respiratory Rate 14 16 18 Respiratory Rate [1 (Initial Baseline)] Respiratory Rate [2] Respiratory Rate [3] Respiratory Rate [4] Respiratory Rate [5] Respiratory Rate [6] Blood Pressure 164/81 H 161/85 H 165/82 H Blood Pressure [1 (Initial Baseline)] Blood Pressure [2] Blood Pressure [3] Blood Pressure [4] Blood Pressure [5] Blood Pressure [6] Blood Pressure Mean 108 110 Baseline BP 165/82 Pulse Ox 98 98 99 Oxygen Delivery Method Room Air Room Air Room Air Oxygen Delivery Method [1 (Initial Baseline)] Oxygen Delivery Method [2] Oxygen Delivery Method [4] Oxygen Delivery Method [5] Oxygen Delivery Method [6] Oxygen Flow Rate (L/min) Oxygen Flow Rate (L/min) [1 (Initial Baseline)] Oxygen Flow Rate (L/min) [2] Oxygen Flow Rate (L/min) [3] Oxygen Flow Rate (L/min) [4] Oxygen Flow Rate (L/min) [5] Oxygen Flow Rate (L/min) [6] Fraction of Inspired Oxygen (FIO2) [2] EtCo2 - Document during CPR and with ROSC 36 EtCo2 - Document during CPR and with ROSC [1 (Initial Baseline)] EtCo2 - Document during CPR and with ROSC [3] EtCo2 - Document during CPR and with ROSC [4] EtCo2 - Document during CPR and with ROSC [6] 03/05/25 13:30 03/05/25 13:53 03/05/25 14:00 Temperature Temperature Source Pulse Rate 53 L 64 Pulse Rate [1 (Initial Baseline)] 58 L Pulse Rate [2] 59 L Pulse Rate [3] 76 Pulse Rate [4] Pulse Rate [5] Pulse Rate [6] Respiratory Rate 22 H 20 H Respiratory Rate [1 (Initial Baseline)] 16 Respiratory Rate [2] 16 Respiratory Rate [3] 12 Respiratory Rate [4] Respiratory Rate [5] Respiratory Rate [6] Blood Pressure 149/79 H 149/81 H Blood Pressure [1 (Initial Baseline)] 168/82 H Blood Pressure [2] 142/78 H Blood Pressure [3] 149/79 H Blood Pressure [4] Blood Pressure [5] Blood Pressure [6] Blood Pressure Mean Baseline BP Pulse Ox 100 100 Oxygen Delivery Method Nasal Cannula Nasal Cannula Oxygen Delivery Method [1 (Initial Baseline)] Room Air Oxygen Delivery Method [2] Nasal Cannula Oxygen Delivery Method [4] Oxygen Delivery Method [5] Oxygen Delivery Method [6] Oxygen Flow Rate (L/min) 6 2 Oxygen Flow Rate (L/min) [1 (Initial Baseline)] Oxygen Flow Rate (L/min) [2] 6 Oxygen Flow Rate (L/min) [3] 6 Oxygen Flow Rate (L/min) [4] Oxygen Flow Rate (L/min) [5] Oxygen Flow Rate (L/min) [6] Fraction of Inspired Oxygen (FIO2) [2] 94 EtCo2 - Document during CPR and with ROSC 35 34 EtCo2 - Document during CPR and with ROSC [1 (Initial Baseline)] 36 EtCo2 - Document during CPR and with ROSC [3] 34 EtCo2 - Document during CPR and with ROSC [4] EtCo2 - Document during CPR and with ROSC [6] 03/05/25 14:04 03/05/25 14:08 03/05/25 14:50 Temperature Temperature Source Pulse Rate 56 L 57 L 56 L Pulse Rate [1 (Initial Baseline)] Pulse Rate [2] Pulse Rate [3] Pulse Rate [4] Pulse Rate [5] Pulse Rate [6] Respiratory Rate 55 H 15 32 H Respiratory Rate [1 (Initial Baseline)] Respiratory Rate [2] Respiratory Rate [3] Respiratory Rate [4] Respiratory Rate [5] Respiratory Rate [6] Blood Pressure 160/81 H 154/77 H Blood Pressure [1 (Initial Baseline)] Blood Pressure [2] Blood Pressure [3] Blood Pressure [4] Blood Pressure [5] Blood Pressure [6] Blood Pressure Mean Baseline BP 154/77 Pulse Ox 100 99 99 Oxygen Delivery Method Nasal Cannula Room Air Room Air Oxygen Delivery Method [1 (Initial Baseline)] Oxygen Delivery Method [2] Oxygen Delivery Method [4] Oxygen Delivery Method [5] Oxygen Delivery Method [6] Oxygen Flow Rate (L/min) 2 Oxygen Flow Rate (L/min) [1 (Initial Baseline)] Oxygen Flow Rate (L/min) [2] Oxygen Flow Rate (L/min) [3] Oxygen Flow Rate (L/min) [4] Oxygen Flow Rate (L/min) [5] Oxygen Flow Rate (L/min) [6] Fraction of Inspired Oxygen (FIO2) [2] EtCo2 - Document during CPR and with ROSC 32 27 32 EtCo2 - Document during CPR and with ROSC [1 (Initial Baseline)] EtCo2 - Document during CPR and with ROSC [3] EtCo2 - Document during CPR and with ROSC [4] EtCo2 - Document during CPR and with ROSC [6] 03/05/25 15:00 03/05/25 15:10 03/05/25 15:15 Temperature Temperature Source Pulse Rate 61 56 L Pulse Rate [1 (Initial Baseline)] 57 L Pulse Rate [2] Pulse Rate [3] Pulse Rate [4] 56 L Pulse Rate [5] 54 L Pulse Rate [6] 61 Respiratory Rate 16 30 H Respiratory Rate [1 (Initial Baseline)] 16 Respiratory Rate [2] Respiratory Rate [3] Respiratory Rate [4] 12 Respiratory Rate [5] 10 L Respiratory Rate [6] 16 Blood Pressure 145/81 H 156/86 H Blood Pressure [1 (Initial Baseline)] 167/81 H Blood Pressure [2] Blood Pressure [3] Blood Pressure [4] 167/81 H Blood Pressure [5] 154/99 H Blood Pressure [6] 165/82 H Blood Pressure Mean 102 Baseline BP Pulse Ox 95 98 Oxygen Delivery Method Room Air Room Air Oxygen Delivery Method [1 (Initial Baseline)] Nasal Cannula Oxygen Delivery Method [2] Oxygen Delivery Method [4] Nasal Cannula Oxygen Delivery Method [5] Nasal Cannula Oxygen Delivery Method [6] Nasal Cannula Oxygen Flow Rate (L/min) Oxygen Flow Rate (L/min) [1 (Initial Baseline)] 5 Oxygen Flow Rate (L/min) [2] Oxygen Flow Rate (L/min) [3] Oxygen Flow Rate (L/min) [4] 5 Oxygen Flow Rate (L/min) [5] 5 Oxygen Flow Rate (L/min) [6] 5 Fraction of Inspired Oxygen (FIO2) [2] EtCo2 - Document during CPR and with ROSC 30 EtCo2 - Document during CPR and with ROSC [1 (Initial Baseline)] 33 EtCo2 - Document during CPR and with ROSC [3] EtCo2 - Document during CPR and with ROSC [4] 26 EtCo2 - Document during CPR and with ROSC [6] 03/05/25 15:16 Temperature Temperature Source Pulse Rate 65 Pulse Rate [1 (Initial Baseline)] Pulse Rate [2] Pulse Rate [3] Pulse Rate [4] Pulse Rate [5] Pulse Rate [6] Respiratory Rate 18 Respiratory Rate [1 (Initial Baseline)] Respiratory Rate [2] Respiratory Rate [3] Respiratory Rate [4] Respiratory Rate [5] Respiratory Rate [6] Blood Pressure 156/86 H Blood Pressure [1 (Initial Baseline)] Blood Pressure [2] Blood Pressure [3] Blood Pressure [4] Blood Pressure [5] Blood Pressure [6] Blood Pressure Mean Baseline BP Pulse Ox 100 Oxygen Delivery Method Nasal Cannula Oxygen Delivery Method [1 (Initial Baseline)] Oxygen Delivery Method [2] Oxygen Delivery Method [4] Oxygen Delivery Method [5] Oxygen Delivery Method [6] Oxygen Flow Rate (L/min) 2 Oxygen Flow Rate (L/min) [1 (Initial Baseline)] Oxygen Flow Rate (L/min) [2] Oxygen Flow Rate (L/min) [3] Oxygen Flow Rate (L/min) [4] Oxygen Flow Rate (L/min) [5] Oxygen Flow Rate (L/min) [6] Fraction of Inspired Oxygen (FIO2) [2] EtCo2 - Document during CPR and with ROSC EtCo2 - Document during CPR and with ROSC [1 (Initial Baseline)] EtCo2 - Document during CPR and with ROSC [3] EtCo2 - Document during CPR and with ROSC [4] EtCo2 - Document during CPR and with ROSC [6] Positive well nourished and well developed; Negative for obese, cachectic, contractures or unkempt General Appearance ED: well developed and NAD; Negative for unkempt, cachectic or contractures Nutritional Appearance: Negative for cachectic or obese HEENT Reports moist mucous membranes normocephalic and atraumatic Eyes PERRL Neck full ROM and supple Chest Wall inspection of chest normal and palpation of chest normal Resp normal respiratory effort, no retractions and clear to auscultation bilaterally Auscultation: Negative for rales, rhonchi, wheezes or diminished lung sounds Cardio regular rate, regular rhythm, S1 normal heart sound, S2 normal heart sound and no murmurs Rate: Negative for bradycardia or tachycardic Rhythm: Negative for abnormal rhythm Bruits: Negative for other GI non-tender, non-distended and no masses Auscultation: normoactive bowel sounds Palpation: soft; Negative for tender, guarding or rebound tenderness present Back/Spine no CVA tenderness General Back: Negative for CVA tenderness Cervical Spine: Negative for cervical spine tenderness Thoracic Spine / Upper Back: Negative for thoracic spinal tenderness Lumbar Spine / Lower Back: Negative for lumbar spinal tenderness Extremity normal to inspection and full ROM Extremity Narrative: Nontender.. No shortening. No rotation. No redness or warmth. The hip is normal in appearance. Neuro oriented x3, CN's II-XII intact bilaterally, moves all extremities and no sensory deficits noted Sensorium / Orientation: alert, oriented to person, oriented to place and oriented to time Motor Exam: strength 5/5 throughout Psych mental status grossly normal Appearance: Negative for unkempt Skin no wounds Lesions: no lesions Rashes: no rashes MDM MDM MDM Narrative Medical decision making narrative: Patient with right hip that feels like it is slipping in and out of the joint. Currently symptom-free. X-ray will be obtained. Initial reduction x-ray appeared to still be dislocated. Patient was procedurally sedated again. Initially given 50 of propofol and 30 more IV for a total of 80 mg of propofol. Using traction and holding her hip down she seemed to go back to length and it appeared to be back in the joint. She had good range of motion passively. We are getting a repeat x-ray. I have the patient's orthopedic physician from [place] on page to go over it with him. Repeat exam patient is doing well at 3:25 PM post procedural sedation. She and her friend are comfortable with her being discharged to home. I did speak to her orthopedic physician in [place]'s office. They will call her and set up appointment for . She knows to leave the knee immobilizer on. History & Record Review Discussion w/independent historian: Patient Additional record(s) reviewed:: Prior inpatient record, Prior outpatient record, Prior ED visit andPrior labs Radiography Diagnostic Testing: Clinical Impression(s) from Imaging Studies Hip/Pelvis X-Ray 03/05/25 10:50 IMPRESSION: There is dislocation of the femoral component of a right total hip prosthesis. Critical results were discussed with Dr. Avliez by Dr. Bartlett at the time of dictation. [facility] 03/05/25 13:55 IMPRESSION: The femoral head appears to be not completely situated in the acetabulum, likely subluxed cranially. Reading Location: [facility] Right hip and pelvis x-ray multiple views interpreted by myself shows Initial postreduction right hip x-ray was still dislocated. Or at least subluxed outside the acetabular cup of the prosthesis. Repeat x-ray after the second attempt of the reduction shows a proper reduction with the prosthesisin the acetabular cup. Procedures Procedural Sedation 1 (Initial Baseline): Consent Signed: Yes Any Problems With Anesthesia: No You/Your family experience fever (hyperthermia) w/anesthesia: No Sedation medication: Propofol Dose: 70 Route: IV Total Moderate Sedation Units: 15 Maliampati Score: Class II ASA Classification: II Comment:: 84-year-old female with dislocated right hip prosthesis. Has not eaten today. She had no breakfast or lunch. Has had no problems with anesthesia in the past. She will be treated with IV propofol for procedural sedation for right hip manual reduction. Patient was sedated initially with 40 mg of propofol then another 30. Using manual reduction and nursing holding down her pelvis I was able to get the right hip back in the prosthesis. Right hip came back to length and was the same length as the left leg. Prior to reduction it was about 3 inches shorter. Postreduction x-ray being obtained. Knee immobilizer replaced. During the postreduction x-ray I think she might of redislocated the hip. The x- ray was positive for still being dislocated. She was again treated with propofol a total of 80 mg IV this time. We stabilized her pelvis and was able to manually reduce the dislocation. The post procedure x-ray shows a good reduction. She has been placed in a knee immobilizer. Currently she is doing well. She is not having any pain. She is awake and alert. She will be discharged after the procedural sedation wears off. Procedural sedation for the second reduction was about 15 minutes also. Discharge Plan Triage Chief Complaint: Lower Extremity Injury ED Provider: Wilbert Avilez Dx/Rx/DC Orders Clinical Impression: Dislocation of right hip, Dislocation of hip prosthesis Instructions: ED Joint Dislocation Prescriptions: No Action mesalamine 1.2 gram tablet,delayed release (DR/EC) 1.2 g PO DAILY 30 Days Qty: 30 1RF dicyclomine 10 mg capsule 10 mg PO BID 30 Days Qty: 60 3RF lisinopril 20 mg tablet 20 mg PO DAILY acetaminophen [Tylenol] 325 mg Tablet 650 mg PO Q4H PRN (Reason: Pain) calcium carbonate-vitamin D3 600 mg-5 mcg (200 unit) Tablet 1 tab PO DAILY pantoprazole 40 mg Tablet,Delayed Release (Dr/Ec) 40 mg PO DAILY Qty: 30 0RF ferrous sulfate [Feosol] 325 mg (65 mg iron) tablet 325 mg PO BID polyethylene glycol 3350 [ClearLax] 17 gram/dose powder 17 g PO DAILY PRN (Reason: constipation) celecoxib 200 mg capsule 200 mg PO DAILY primidone 50 mg tablet 50 mg PO QHS Patient Comments: 25mg by mouth once daily at bedtime for essential tremor oxycodone 5 mg tablet 5 mg PO Q6H PRN (Reason: pain) docusate sodium 100 mg Capsule 100 mg PO BID 30 Days Qty: 60 0RF docusate sodium [Colace] 100 mg capsule 100 mg PO BID PRN Qty: 60 3RF Primary Care Provider: Rosaura Peck Referrals: Rosaura Peck MD [Primary Care Provider] - Activity Restrictions/Additional Instructions: Call and follow-up with your orthopedic hip surgeon in [place], Dr. Gracia, as soon as possible. Leave the knee immobilizer on is much as possible. You can take it off to shower or bathe. But withthat on it will make it much harder for you to dislocate the knee. Tylenol for pain. Print Language: Surinamese Disposition Disposition: Home, Self Care What to do if you have Problems For any increased pain, shortness of breath, bleeding, nausea or vomiting, chestpain, or any unexpected problems, contact your Primary Care Provider. Call [facility] ([phone]) or report tothe closest Emergency Room. Call 911 if necessary. 03/05/25 1536 Cosigner Signature (if applicable): CC: Dr. Rosaura Peck MD ~ Signed [facility]07-01-2025 Radiology Diagnostic study note [facility] Imaging Services [address] [place] [address] Hip Min 2 Views (Portable) MR#: [id number] Acct: [id number] Name: MAY LEONARD Rep #: [id number] 1 : 1940 F 84 From: Zeinab Samaniego MD PCP: Dr. Rosaura Peck MD Status: RE G ER Study:Hip Min 2 Views (Portable) Date of Exam : 03/05/25 Exam# [id number] Ordering Dr: Joesph Avilez MD EXAM: XR Left Hip With Pelvis When Performed, 1 View CLINICAL INDICATION: POST REDUCTION TECHNIQUE: Frontal view of the left hip with pelvis when performed. COMPARISON: No relevant prior studies available. FINDINGS: BONES/JOINTS: The femoral head appears to be not completely situated in the acetabulum, likely subluxed cranially. No acute fracture. SOFT TISSUES: Unremarkable. RAD/Hip Min 2 Views (Portable) IMPRESSION: The femoral head appears to be not completely situated in the acetabulum, likelysubluxed cranially. Reading [facility] CC: Dr. Wilbert Avilez MD; Dr. Rosaura Peck MD ~ Birthing Nurse: Signed [facility]07-01-2025 Radiology Diagnostic study note [facility] Imaging Services [address] [place], [place] [address] HIP, UNI W/ Pelvis 2-3 Views MR#: [id number] Acct: [id number] Name: MAY LEONARD Rep #: [id number] 1 : 1940 F 84 From: Missy Bartlett MD PCP: Dr. Rosaura Peck MD Status: RE G ER Study:HIP, UNI W/ Pelvis 2-3 Views Date of Ex am: 03/05/25 Exam# [id number] Ordering Dr: Joesph Avilez MD PROCEDURE: HIP, UNI W/ PELVIS 2-3 VIEWS 03/05/2025 REASON FOR EXAM: ATRAUMATIC RIGHT HIP PAIN. 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 The acetabular component is aligned. There is no visible acute fracture. Osteopenia is noted. Vascular calcifications are visible. 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 Critical results were discussed with Dr. Avilez by Dr. Bartlett at the time ofdictation. Reading Location: [facility] CC: Dr. Wilbert Avilez MD; Dr. Rosaura Peck MD ~ Birthing Nurse: Signed [facility]06-18-2025 Telephone encounter Note* Telephone Encounter - Yina Corrales RN - 02/20/2025 4:09 PM EDT Pt is having more urinary frequency with cyst. Pt would like to have cyst and both ovaries removed.March 20 pt has shoulder injection with going under anesthesia. Pt states April would be fine to schedule. [id number] Miscellaneous Notes* Telephone Encounter - Yina Corrales RN - 02/20/2025 4:09 PM EDT Pt is having more urinary frequency with cyst. Pt would like to have cyst and both ovaries removed.March 20 pt has shoulder injection with going under anesthesia. Pt states April would be fine to schedule. * Telephone Encounter - Cady Kunz - 02/20/2025 3:34 PM EDT Pt returned phone call. Please call back when you can. Thank you * Telephone Encounter - Yina Corrales RN - 02/20/2025 3:30 PM EDT Called pt and left vm. * Telephone Encounter - Cady Kunz - 02/20/2025 3:16 PM EDT Pt would like to discuss removal of cyst and ovary per her last appt conversation with Dr Garcia. Pt concerned about cyst. Please call to discuss. Thank you documented in this encounterSTrinity [facility] [id number] Telephone encounter Note* Telephone Encounter - Cady Kunz - 02/20/2025 3:34 PM EDT Pt returned phone call. Please call back when you can. [facility] [id number] Telephone encounter Note* Telephone Encounter - Yina Corrales RN - 02/20/2025 3:30 PM EDT Called pt and left vm. [facility] [id number] Telephone encounter Note* Telephone Encounter - Cady Kunz - 02/20/2025 3:16 PM EDT Pt would like to discuss removal of cyst and ovary per her last appt conversation with Dr Garcia. Pt concerned about cyst. Please call to discuss. Thank you [facility] [id number] Evaluation note* Diagnosis Onset Date Resolution Status Admit Date History of ischemic colitis acute January 09, 2025 10:03am Chronic constipation chronic January 09, 2025 10:03am Contusion of right wrist acute February 05, 2025 11:46am [facility] Work Phone: 1(386) 771-673305-07-2025 Evaluation note* Diagnosis Onset Date Resolution Status Admit Date History of ischemic colitis acute January 09, 2025 10:03am Chronic constipation chronic January 09, 2025 10:03am Contusion of right wrist inactive February 05, 2025 11:46am Anxiety acute March 06, 2025 3:36pm Debility acute March 06, 2025 3:36pm Depression acute March 06, 2025 3:36pm Dislocation of right hip acute March 06, 2025 3:36pm Essential tremor acute March 3:36pm Generalized weakness acute March 06, 2025 3:36pm GERD (gastroesophageal reflu x disease) acute March 06, 2025 3 :36pm Heme positive stool acute March 06, 2025 3:36pm History of iron deficiency anemia acute March 06, 2025 3 :36pm History of ischemic colitis acute March 06, 2025 3:36pm History of SIADH acute March 3:36pm Hyponatremia acute March 06 3:36pm Insomnia acute March 06, 2025 3:36pm Iron deficiency anemia acute 2024 3:36pm Ischemic colitis acute March 3:36pm Liver lesion acute March 06 3:36pm Osteoarthritis acute March 06, 2025 3:36pm Ovarian cyst, right acute March 06, 2025 3:36pm Back pain chronic March 06, 2025 3:36pm Chronic constipation chronic March 06, 2025 3:36pm Hypertension chronic March 06 3:36pm Fracture, intertrochanteric, right femur inactive March 06, 2025 3 :36pm Post-op pain deleted March 06 3:36pm [facility] Work Phone: 1(251) 986-586905-07-2025 Evaluation note* Diagnosis Onset Date Resolution Status Admit Date History of ischemic colitis acute January 09, 2025 10:03am Chronic constipation chronic January 09, 2025 10:03am Contusion of right wrist inactive February 05, 2025 11:46am Anxiety acute March 06, 2025 3:36pm Debility acute March 06, 2025 3:36pm Depression acute March 06, 2025 3:36pm Essential tremor acute March 3:36pm Generalized weakness acute March 06, 2025 3:36pm GERD (gastroesophageal reflu x disease) acute March 06, 2025 3 :36pm Heme positive stool acute March 06, 2025 3:36pm History of iron deficiency anemia acute March 06, 2025 3 :36pm History of ischemic colitis acute March 06, 2025 3:36pm History of SIADH acute March 3:36pm Insomnia acute March 06, 2025 3:36pm Iron deficiency anemia acute 2024 3:36pm Ischemic colitis acute March 3:36pm Liver lesion acute March 06 3:36pm Osteoarthritis acute March 06, 2025 3:36pm Ovarian cyst, right acute March 06, 2025 3:36pm Back pain chronic March 06, 2025 3:36pm Chronic constipation chronic March 06, 2025 3:36pm Hypertension chronic March 06 3:36pm Dislocation of right hip resolved March 06, 2025 3:36pm Hyponatremia resolved March 06 3:36pm Fracture, intertrochanteric, right femur inactive March 06, 2025 3 :36pm Post-op pain deleted March 06 3:36pm [facility] Work Phone: 1(878) 245-541905-07-2025 Evaluation note* Diagnosis Onset Date Resolution Status Admit Date History of ischemic colitis acute January 09, 2025 10:03am Chronic constipation chronic January 09, 2025 10:03am Contusion of right wrist inactive February 05, 2025 11:46am Anxiety acute March 06, 2025 3:36pm Debility acute March 06, 2025 3:36pm Depression acute March 06, 2025 3:36pm Essential tremor acute March 3:36pm Generalized weakness acute March 06, 2025 3:36pm GERD (gastroesophageal reflu x disease) acute March 06, 2025 3 :36pm Heme positive stool acute March 06, 2025 3:36pm History of iron deficiency anemia acute March 06, 2025 3 :36pm History of ischemic colitis acute March 06, 2025 3:36pm History of SIADH acute March 3:36pm Insomnia acute March 06, 2025 3:36pm Iron deficiency anemia acute 2024 3:36pm Ischemic colitis acute March 3:36pm Liver lesion acute March 06 3:36pm Osteoarthritis acute March 06, 2025 3:36pm Ovarian cyst, right acute March 06, 2025 3:36pm Back pain chronic March 06, 2025 3:36pm Chronic constipation chronic March 06, 2025 3:36pm Hypertension chronic March 06 3:36pm Dislocation of right hip resolved March 06, 2025 3:36pm Hyponatremia resolved March 06 3:36pm Fracture, intertrochanteric, right femur inactive March 06, 2025 3 :36pm Post-op pain deleted March 06 3:36pm GERD (gastroesophageal reflu x disease) acute April 12, 2025 10:17am Iron deficiency anemia acute Au 2024 10:17am Ischemic colitis acute April 122024 10:17am [facility] Work Phone: 1(474) 179-329904-22-2025 Telephone encounter Note* Telephone Encounter - James Rincon - 12/25/2024 2:29 PM EDT Patient would like callback to schedule U/S, please contact when able, [facility] you [facility] [id number] Miscellaneous Notes* Telephone Encounter - James Rincon - 12/25/2024 2:29 PM EDT Patient would like callback to schedule U/S, please contact when able, thank you documented in this encounterSTrinity [facility] [id number] History of Present illness Narrative* Santana Garcia MD - 12/17/2024 10:45 AM EDT CC: Enlarging pelvic mass HPI: May Leonard is a pleasant 83 y.o. female who presents in consultation from Dr. Newsome for further evaluation and management of persistent left adnexal mass along with abdominal pain and anenhancing liver lesion in the right lobe which has increased slightly in size. She initiallypresented with an episode of colitis and underwent a CT scan that showed a left adnexal mass. She is undergo ne several imaging studies since April which does show a 7 to 8 cm benign- appearing left adnexal mass. A liver lesion was also noted but the patient states a recent MRI was done and she was told by her guardian family member that the liver lesion is benign. Patient states the left pelvic mass causes no symptoms, denies any pelvic pressure or pain problemswith bowel or bladder habits. Denies any vaginal bleeding. He is here today to discuss options for a incidentally found cystic left ovarian mass. History; Patient underwent repeat ultrasound at [facility] which unfortunately shows growth in the size of the lesion. 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 She denies any signs or symptoms of this mass, denies any vaginal bleeding pelvic pain abdominal pain or discomfort. Past Medical History: Diagnosis Date Anxiety Arthritis Back pain Constipation Hypertension Hyponatremia Leg cramps Lower gastrointestinal bleed Migraine Past Surgical History: Procedure Laterality Date CATARACT EXTRACTION Bilateral COLONOSCOPY REVISE TOTAL HIP REPLACEMENT (HISTORICAL) TOTAL SHOULDER ARTHROPLASTY Social History Socioeconomic History Marital status: Unknown Tobacco Use Smoking status: Former Types: Cigarettes Smokeless tobacco: Never Substance and Sexual Activity Alcohol use: Yes Comment: social Drug use: Never Social Drivers of Health Food Insecurity: No Food Insecurity (02/21/2024) Received from [facility] Vital Sign Worried About Running Out of Food in the Last Year: Never true Ran Out of Food in the Last Year: Never true Transportation Needs: No Transportation Needs (02/21/2024) Received from [facility] PRAPARE - Transportation Lack of Transportation (Medical): No Lack of Transportation (Non-Medical): No Housing Stability: Unknown (02/21/2024) Received from [facility] Housing Stability Vital Sign Unable to Pay for Housing in the Last Year: No Unstable Housing in the Last Year: No Current Outpatient Medications Medication Sig Dispense Refill acetaminophen (Tylenol) 500 MG tablet Take 1 tablet by mouth daily. calcium carbonate 260 MG chewable tablet Chew daily. celecoxib (CeleBREX) 200 MG capsule Take 1 capsule every day by oral route. dicyclomine (Bentyl) 10 MG capsule Take 10 mg by mouth 4 times daily. Docusate Sodium (DSS) 100 MG capsule Take 100 mg by mouth every 12 hours as needed. lisinopril 20 MG tablet Take 1 tablet by mouth daily. mesalamine (Lialda) 1.2 g EC tablet Take 1,200 mg by mouth daily (with breakfast). Do not crush, chew, or split. oxyCODONE (Oxy-IR) 5 MG immediate release capsule Take 5 mg by mouth. pantoprazole (ProtoNix) 40 MG injection Infuse 40 mg into a venous catheter. polyethylene glycol, PEG, 3350 (Miralax) 17 g packet Take 17 g by mouth daily. primidone (Mysoline) 50 MG tablet Take by mouth. sennosides (Senokot) 8.6 MG tablet Take 2 tablets by mouth daily at bedtime. No current facility-administered medications for this visit. Review of Systems Gastrointestinal: Negative for abdominal distention and abdominal pain. Genitourinary: Negative for pelvic pain and vaginal bleeding. Naproxen and Prednisone There were no vitals taken for this visit. Physical Exam Vitals and nursing note reviewed. Constitutional: Comments: Frail-appearing lady with a walker Neurological: Mental Status: She is alert. Psychiatric: Mood and Affect: Mood normal. Behavior: Behavior normal. I have personally reviewed the CT scan which shows a very benign appearing cystic lesion Assessment: Benign-appearing growth of the ovary, very minimal growth since June. Plan: Discussed surgical resection versus close observation. After discussing the pros and cons of both approaches due to the very benign appearing nature of the growth the very slow growth phase and the patient's multiple medical comorbidities recommended close observation. Will plan on a repeat ultrasound in 3 months. The patient is in agreement. Total time spent in review of radiology reports reviewof radiology imaging [id number] counseling with patient and coordination of repeat ultrasound was25 minutes documented in this [facility]04-09-2025 Discharge summary [facility] Physical Therapy [facility] [address] [place] [address] / REHABILITATION SERVICES DISCHARGE SUMMARY MR#: [id number] Acct: [id number] Name: MAY LEONARD Rep #: [id number] 1 : 1940 83 From: Jewell Flower PT, Cert. MDT Referring Dr.: AMY Trotter Status: REG RCR Insurance: MEDICARE PART A B [employer] Discharge Summary D/C summary: It has been my pleasure to treat MAY LEONARD referred by AMY Trotter, with the diagnosis of CERVICAL SPINAL STENOSIS AND L SHLD OA WITH NECK AND SHLD PAIN. for a total of 9 visit(s). Discharge Date: 12/12/24 Please see the following information for a summary of their discharge status. Subjective Subjective: PATIENT REPORTS SHE HAS ENJOYED THE THERAPY FOR HER NECK AND SHLD AND SHE FEELS BETTER AFTER THE TANGELA'TS BUT THEY STILL HURT. SHE STATES SHE THINKS SHE WOULD BE BETTER IF SHE WOULD DO HER EX'S MORE. SHE REPORTS SHE HAS ATOOTH INFECTION AND IS TAKING Penicillin. SHE ALSO REPORTS HER DOCTOR CALLED WITH ULTRASOUND RESULTS INFORMING HER THE CYST ON HER OVERAY IS GROWING AND THEYNEED TO REMOVE IT - IT WAS APPARENTLY THE SIZE OF A TENNIS BALL WHEN MEASURED INJANUARY. Pain Left Shoulder: Pain Intensity (Out of 10): 6 Left Neck: Pain Intensity (Out of 10): 6 Overall Improvement % Improvement: 30 Objective Objective/Function: PATIENT WAS SEEN TODAY FOR RE-ASSESSMENT OF PROGRESS TOWARD THE SET PT GOALS AND THE NEED FOR FURTHER PHYSICAL THERAPY VS READINESS FOR DISCHARGE. UPON EXAM TODAY: INDEP GAIT INTO PT WITH FWW. LEANING RATHER HARD ON WALKER INCLUDING PUTTING A LOT OF PRESSURE ON LEFT UE. PATIENT DENIES INCREASED L SHLD PAIN WHILE WALKING AND LEANING ON WALKER. Sensory deficit: SVEN UE LIGHT TOUCH SENSATION GROSSLY INTACT AND SYMMETRICAL ROM deficit: R SHLD ACTIVE ELEVATION 75 DEG, L 105 DEG WITH PAIN DURING MVMT. L SHLD ABD 82 DEG. ER30 DEG AND PATIENT IS NOW ABLE TO GET HER HAND BEHIND HER BACK INTO THE SMALL OF HER BACK. Motor deficit: L SHLD 2+/5, ELBOW 3+/5. 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 Postural strength: POOR Palpation: PATIENT STILL WITH TENDERNESS THROUGH OUT CERVICAL, LEFT SHLD AND LEFT UPPER ARM REGIONS. Goals Goal 1:: DECREASE C/O NECK PAIN BY AT LEAST 50% TO EASE ADL'S. Goal Progress: Progressing Goal 2:: DECREASE C/O L SHLD PAIN BY AT LEAST 50% TO EASE ADL'S. Goal Progress: Progressing Goal 3:: INCREASE PAINFREE CERVICAL ROM TO EASE ADL'S. Goal Progress: Progressing Goal 4:: INCREASE PAINFREE L SHLD ELEVATION TO EASE ADL'S Goal Progress: Progressing Goal 5:: INCREASE FUNCTIONAL STRENGTH OF L UE TO EASE ADL'S. Goal Progress: Progressing Goal 6:: INDEP HEP Goal Progress: Progressing Plan Plan: D/C TO HEP DUE TO NEED FOR ABDOMINAL SURGERY. PATIENT AGREEABLE. SHE STATES SHE IS GOING TO SEE THE SURGEON ON TUESDAY TO MAKE PLANS TO HAVE THE CYST REMOVED. D/C Information d/c sentence: If there are questions or concerns regarding this patient's physical therapy, please feel free to call me at [phone]. Thank you for the referral of thispatient. Sincerely, Jewell Flower, PT, Cert MDT Balance/Gait/Functional tests Balance/Special Test Scores Oswestry Neck Score: 15 Quick DASH Score: 59.0900 Improvement % Improvement: 30 12/12/24 1446 CC: Dr. Rosaura Peck MD; AMY Trotter ~ CHOCO [facility]04-09-2025 Discharge summary Author Jewell Flower [facility] Note Date/Time December 12, 2024 2:46 pm [facility] Physical [facility] [address] [place] [address] / REHABILITATION SERVICES DISCHARGE SUMMARY MR#: [id number] Acct: [id number] Name: MAY LEONARD Rep #: [id number] 1 : 1940 83 From: Jewell Flower PT, Cert. MDT Referring Dr.: AMY Trotter Status: REG RCR Insurance: MEDICARE PART A B [employer] Discharge Summary D/C summary: It has been my pleasure to treat MAY LEONARD referred by AMY Trotter, with the diagnosis of CERVICAL SPINAL STENOSIS AND L SHLD OA WITH NECK AND SHLD PAIN. for a total of 9 visit(s). Discharge Date: 12/12/24 Please see the following information for a summary of their discharge status. Subjective Subjective: PATIENT REPORTS SHE HAS ENJOYED THE THERAPY FOR HER NECK AND SHLD AND SHE FEELS BETTER AFTER THE TANGELA'TS BUT THEY STILL HURT. SHE STATES SHE THINKS SHE WOULD BE BETTER IF SHE WOULD DO HER EX'S MORE. SHE REPORTS SHE HAS ATOOTH INFECTION AND IS TAKING Penicillin. SHE ALSO REPORTS HER DOCTOR CALLED WITH ULTRASOUND RESULTS INFORMING HER THE CYST ON HER OVERAY IS GROWING AND THEYNEED TO REMOVE IT - IT WAS APPARENTLY THE SIZE OF A TENNIS BALL WHEN MEASURED INJANUARY. Pain Left Shoulder: Pain Intensity (Out of 10): 6 Left Neck: Pain Intensity (Out of 10): 6 Overall Improvement % Improvement: 30 Objective Objective/Function: PATIENT WAS SEEN TODAY FOR RE-ASSESSMENT OF PROGRESS TOWARD THE SET PT GOALS AND THE NEED FOR FURTHER PHYSICAL THERAPY VS READINESS FOR DISCHARGE. UPON EXAM TODAY: INDEP GAIT INTO PT WITH FWW. LEANING RATHER HARD ON WALKER INCLUDING PUTTING A LOT OF PRESSURE ON LEFT UE. PATIENT DENIES INCREASED L SHLD PAIN WHILE WALKING AND LEANING ON WALKER. Sensory deficit: SVEN UE LIGHT TOUCH SENSATION GROSSLY INTACT AND SYMMETRICAL ROM deficit: R SHLD ACTIVE ELEVATION 75 DEG, L 105 DEG WITH PAIN DURING MVMT. L SHLD ABD 82 DEG. ER 30 DEG AND PATIENT IS NOW ABLE TO GET HER HAND BEHIND HER BACK INTO THE SMALL OF HER BACK. Motor deficit: L SHLD 2+/5, ELBOW 3+/5. 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 Postural strength: POOR Palpation: PATIENT STILL WITH TENDERNESS THROUGH OUT CERVICAL, LEFT SHLD AND LEFT UPPER ARM REGIONS. Goals Goal 1:: DECREASE C/O NECK PAIN BY AT LEAST 50% TO EASE ADL'S. Goal Progress: Progressing Goal 2:: DECREASE C/O L SHLD PAIN BY AT LEAST 50% TO EASE ADL'S. Goal Progress: Progressing Goal 3:: INCREASE PAINFREE CERVICAL ROM TO EASE ADL'S. Goal Progress: Progressing Goal 4:: INCREASE PAINFREE L SHLD ELEVATION TO EASE ADL'S Goal Progress: Progressing Goal 5:: INCREASE FUNCTIONAL STRENGTH OF L UE TO EASE ADL'S. Goal Progress: Progressing Goal 6:: INDEP HEP Goal Progress: Progressing Plan Plan: D/C TO HEP DUE TO NEED FOR ABDOMINAL SURGERY. PATIENT AGREEABLE. SHE STATES SHE IS GOING TO SEE THE SURGEON ON TUESDAY TO MAKE PLANS TO HAVE THE CYST REMOVED. D/C Information d/c sentence: If there are questions or concerns regarding this patient's physical therapy, please feel free to call me at [phone]. Thank you for the referral of thispatient. Sincerely, Jewell Flower, PT, Cert MDT Balance/Gait/Functional tests Balance/Special Test Scores Oswestry Neck Score: 15 Quick DASH Score: 59.0900 Improvement % Improvement: 30 <Electronically signed by Jewell Flower PT, Cert. MDT> 12/12/24 1446 CC: Dr. Rosaura Peck MD; AMY Trotter ~ CHOCO Signed [facility] Work Phone: 1(634) 619-733004-08-2025 Telephone encounter Note* Telephone Encounter - Santana Garcia MD - 12/11/2024 12:42 PM EDT Called the result of ultrasound, she would like to have the mass removed. Will set up an appointment in the office [facility]: 1(844) 920-927904-08-2025 Miscellaneous Notes* Telephone Encounter - Santana Garcia MD - 12/11/2024 12:42 PM EDT Called the result of ultrasound, she would like to have the mass removed. Will set up an appointment in the office * Telephone Encounter - Chelsea Briseno - 12/11/2024 9:35 AM EDT Patient called back. Whenever you get a chance, can you please call her back. Thank you! * Telephone Encounter - Santana Garcia MD - 12/11/2024 9:24 AM EDT lvmtcob documented in this encounterSTrinity [facility] [id number] Telephone encounter Note* Telephone Encounter - Chelsea Briseno - 12/11/2024 9:35 AM EDT Patient called back. Whenever you get a chance, can you please call her back. Thank you! [place] [id number] Telephone encounter Note* Telephone Encounter - Santana Garcia MD - 12/11/2024 9:24 AM EDT lvmtcob [address] [id number] Radiology Diagnostic study note [facility] Imaging Services [address] [place] [address] Pelvic (Non ) MR#: [id number] Acct: [id number] Name: MAY LEONARD Rep #: [id number] 9 : 1940 F 83 From: Luis Alfredo Vieira MD PCP: Dr. Rosaura Peck MD Status: RE G CLI Study:Pelvic (Non ) Date of Exam: 12/06/24 Exam# [id number] Ordering Dr: Santana Garcia MD PROCEDURE: PELVIC (NON ) 12/06/2024 REASON FOR EXAM: PELVIC MASS TECHNIQUE: Transabdominal pelvic ultrasound COMPARISON: Comparison is made with prior study dated July 04, 2024. FINDINGS: Measurements: Uterus: 5.5 cm x 2.7 cm x 0.9 cm with a volume of 7.23 mL Endometrial Thickness: 2.5 mm. Slightly thickened. Small amount of fluid is seen in the endometrialcanal. Nabothian cyst is seen. Right Ovary: There is a 9.8 cm x 8.5 cm x 6.5 cm cystic mass in the right adnexa. No right ovarian tissue is seen. This has increased slightly in size as compared to prior study. Left Ovary: Nonvisualized. Uterus: No focal fibroid is seen. Endometrium: Slightly thickened endometrium with a trace amount of endometrial fluid. Other: US/Pelvic (Non ) IMPRESSION: Persistent 9.8 cm 8.5 cm 6.5 cm cystic mass in the right adnexa. This is essentially unchanged. Reading Location: [place] [address] CC: Dr. Rosaura Peck MD; Dr. Santana Garcia MD ~ Birthing Nurse: Signed [facility]02-14-2025 Evaluation note* Diagnosis Onset Date Resolution Status Admit Date Ischemic colitis acute October 19, 2024 10:24am [facility] Work Phone: 1(473) 891-307702-14-2025 Evaluation note* Diagnosis Onset Date Resolution Status Admit Date Ischemic colitis acute October 19, 2024 10:24am History of ischemic colitis acute January 09, 2025 10:03am Chronic constipation chronic January 09, 2025 10:03am [facility] Work Phone: 1(258) 440-826801-03-2025 History of Present illness Narrative* Santana Garcia MD - 09/07/2024 11:00 AM EST HPI: May Leonard is a pleasant 83 y.o. female who presents in consultation from Dr. Newsome for further evaluation and management of persistent left adnexal mass along with abdominal pain and anenhancing liver lesion in the right lobe which has increased slightly in size. She initiallypresented with an episode of colitis and underwent a CT scan that showed a left adnexal mass. She is undergo ne several imaging studies since April which does show a 7 to 8 cm benign- appearing left adnexal mass. A liver lesion was also noted but the patient states a recent MRI was done and she was told by her guardian family member that the liver lesion is benign. Patient states the left pelvic mass causes no symptoms, denies any pelvic pressure or pain problemswith bowel or bladder habits. Denies any vaginal bleeding. He is here today to discuss options for a incidentally found cystic left ovarian mass. Past Medical History: Diagnosis Date Anxiety Arthritis Back pain Constipation Hypertension Hyponatremia Leg cramps Lower gastrointestinal bleed Migraine Past Surgical History: Procedure Laterality Date CATARACT EXTRACTION Bilateral COLONOSCOPY REVISE TOTAL HIP REPLACEMENT (HISTORICAL) TOTAL SHOULDER ARTHROPLASTY Family History Problem Relation Name Age of Onset Heart disease Father Rheumatic fever Father Social History Socioeconomic History Marital status: Unknown Tobacco Use Smoking status: Former Types: Cigarettes Smokeless tobacco: Never Substance and Sexual Activity Alcohol use: Yes Comment: social Drug use: Never Social Drivers of Health Food Insecurity: No Food Insecurity (02/21/2024) Received from [facility] Hunger Vital Sign Worried About Running Out of Food in the Last Year: Never true Ran Out of Food in the Last Year: Never true Transportation Needs: No Transportation Needs (02/21/2024) Received from [facility] PRAPARE - Transportation Lack of Transportation (Medical): No Lack of Transportation (Non-Medical): No Housing Stability: Unknown (02/21/2024) Received from [facility] Housing Stability Vital Sign Unable to Pay for Housing in the Last Year: No Unstable Housing in the Last Year: No Current Outpatient Medications Medication Sig Dispense Refill acetaminophen (Tylenol) 500 MG tablet Take 1 tablet by mouth daily. calcium carbonate 260 MG chewable tablet Chew daily. celecoxib (CeleBREX) 200 MG capsule Take 1 capsule every day by oral route. dicyclomine (Bentyl) 10 MG capsule Take 10 mg by mouth 4 times daily. Docusate Sodium (DSS) 100 MG capsule Take 100 mg by mouth every 12 hours as needed. lisinopril 20 MG tablet Take 1 tablet by mouth daily. mesalamine (Lialda) 1.2 g EC tablet Take 1,200 mg by mouth daily (with breakfast). Do not crush, chew, or split. oxyCODONE (Oxy-IR) 5 MG immediate release capsule Take 5 mg by mouth. pantoprazole (ProtoNix) 40 MG injection Infuse 40 mg into a venous catheter. polyethylene glycol, PEG, 3350 (Miralax) 17 g packet Take 17 g by mouth daily. primidone (Mysoline) 50 MG tablet Take by mouth. sennosides (Senokot) 8.6 MG tablet Take 2 tablets by mouth daily at bedtime. No current facility-administered medications for this visit. Allergies as of 09/07/2024 - Reviewed 09/07/2024 Allergen Reaction Noted Naproxen 12/08/2022 Prednisone 12/08/2022 Review of Systems: Review of Systems Gastrointestinal: Negative for abdominal distention and abdominal pain. Genitourinary: Negative for difficulty urinating, pelvic pain, vaginal bleeding and vaginal discharge. BP (!) 152/78 Pulse 61 Ht 1.626 m (5' 4") Wt 50.8 kg (112 lb) BMI 19.22 kg/m Physical Exam: Physical Exam Constitutional: Comments: Frail-appearing lady in a wheelchair Abdominal: General: Abdomen is flat. Palpations: Abdomen is soft. Genitourinary: General: Normal vulva. Labia: Right: No lesion. Left: No lesion. Urethra: No urethral lesion. Vagina: Normal. Cervix: Normal. Uterus: Normal. Adnexa: Right: Mass present. Left: Mass present. Comments: On exam there is a cystic mobile mass on the left side of the cul-de-sac, this is consistent with a benign ovarian cyst. It is nontender, mobile cystic and no cul-de-sac nodularity noted Musculoskeletal: Comments: Patient has limited mobility with bilateral braces on her lower legs Neurological: Mental Status: She is alert. Psychiatric: Mood and Affect: Mood normal. Behavior: Behavior normal. 3 CT scans have personally been reviewed from April as well as May. All of these show a 7 to 8 cm cystic left adnexal lesion. No internal excrescences are noted. Most likely of benign ovarian lesion ASSESSMENT/PLAN: Diagnosis Plan 1. Pelvic mass in female US pelvis transvaginal Discussed with patient that this was most likely benign lesion based upon the cystic nature in the absence of symptoms. We discussed surgical resection which would be a major abdominal surgery versusobservation. I did recommend observation as I doubt very much this represents a malignant lesion and is not causing the patient any issues. We did discuss the possibility of ovarian torsion. Will plan on repeating the ultrasound in 3 months time. If that shows no change and is still a unilocular cyst would recommend observation only. The patient is in agreement and does not want surgery unless itis absolutely necessary. Total time spent in review of imaging studies with patient, [id number] counseling with patient was 35 minutes documented in this [facility]01-03-2025 NoteHPI: May Leonard is a pleasant 83 y.o. female who presents in consultation from Dr. Newsome for further evaluation and management of persistent left adnexal mass along with abdominal pain and an enhancing liver lesion in the right lobe which has increased slightly in size. She initiallypresented with an episode of colitis and underwent a CT scan that showed a left adnexal mass. She is undergone several imaging studies since April which does show a 7 to 8 cm benign-appearing left adnexal mass. A liver lesion was also noted but the patient states a recent MRI was done and she was told by her guardian family member that the liver lesion is benign. Patient states the left pelvic mass causes no symptoms, denies any pelvic pressure or pain problems with bowel or bladder habits. Denies any vaginal bleeding. He is here today to discuss options for a incidentally found cystic left ovarian mass. Past Medical History: Diagnosis Date Anxiety Arthritis Back pain Constipation Hypertension Hyponatremia Leg cramps Lower gastrointestinal bleed Migraine Past Surgical History: Procedure Laterality Date CATARACT EXTRACTION Bilateral COLONOSCOPY REVISE TOTAL HIP REPLACEMENT (HISTORICAL) TOTAL SHOULDER ARTHROPLASTY Family History Problem Relation Name Age of Onset Heart disease Father Rheumatic fever Father Social History Socioeconomic History Marital status: Unknown Tobacco Use Smoking status: Former Types: Cigarettes Smokeless tobacco: Never Substance and Sexual Activity Alcohol use: Yes Comment: social Drug use: Never Social Drivers of Health Food Insecurity: No Food Insecurity (02/21/2024) Received from [facility] Hunger Vital Sign Worried About Running Out of Food in the Last Year: Never true Ran Out of Food in the Last Year: Never true Transportation Needs: No Transportation Needs (02/21/2024) Received from [facility] PRAPARE - Transportation Lack of Transportation (Medical): No Lack of Transportation (Non-Medical): No Housing Stability: Unknown (02/21/2024) Received from [facility] Housing Stability Vital Sign Unable to Pay for Housing in the Last Year: No Unstable Housing in the Last Year: No Current Outpatient Medications Medication Sig Dispense Refill acetaminophen (Tylenol) 500 MG tablet Take 1 tablet by mouth daily. calcium carbonate 260 MG chewable tablet Chew daily. celecoxib (CeleBREX) 200 MG capsule Take 1 capsule every day by oral route. dicyclomine (Bentyl) 10 MG capsule Take 10 mg by mouth 4 times daily. Docusate Sodium (DSS) 100 MG capsule Take 100 mg by mouth every 12 hours as needed. lisinopril 20 MG tablet Take 1 tablet by mouth daily. mesalamine (Lialda) 1.2 g EC tablet Take 1,200 mg by mouth daily (with breakfast). Do not crush, chew, or split. oxyCODONE (Oxy-IR) 5 MG immediate release capsule Take 5 mg by mouth. pantoprazole (ProtoNix) 40 MG injection Infuse 40 mg into a venous catheter. polyethylene glycol, PEG, 3350 (Miralax) 17 g packet Take 17 g by mouth daily. primidone (Mysoline) 50 MG tablet Take by mouth. sennosides (Senokot) 8.6 MG tablet Take 2 tablets by mouth daily at bedtime. No current facility-administered medications for this visit. Allergies as of 09/07/2024 - Reviewed 09/07/2024 Allergen Reaction Noted Naproxen 12/08/2022 Prednisone 12/08/2022 Review of Systems: Review of Systems Gastrointestinal: Negative for abdominal distention and abdominal pain. Genitourinary: Negative for difficulty urinating, pelvic pain, vaginal bleeding and vaginal discharge. BP (!) 152/78 Pulse 61 Ht 1.626 m (5' 4") Wt 50.8 kg (112 lb) BMI 19.22 kg/m? Physical Exam: Physical Exam Constitutional: Comments: Frail-appearing lady in a wheelchair Abdominal: General: Abdomen is flat. Palpations: Abdomen is soft. Genitourinary: General: Normal vulva. Labia: Right: No lesion. Left: No lesion. Urethra: No urethral lesion. Vagina: Normal. Cervix: Normal. Uterus: Normal. Adnexa: Right: Mass present. Left: Mass present. Comments: On exam there is a cystic mobile mass on the left side of the cul-de-sac, this is consistent with a benign ovarian cyst. It is nontender, mobile cystic and no cul-de-sac nodularity noted Musculoskeletal: Comments: Patient has limited mobility with bilateral braces on her lower legs Neurological: Mental Status: She is alert. Psychiatric: Mood and Affect: Mood normal. Behavior: Behavior normal. 3 CT scans have personally been reviewed from April as well as May. All of these show a 7 to 8 cm cystic left adnexal lesion. No internal excrescences are noted. Most likely of benign ovarian lesion ASSESSMENT/PLAN: Diagnosis Plan 1. Pelvic mass in female US pelvis transvaginal Discussed with patient that this was most likely benign lesion based upon the cystic nature in the absence of symptoms. We discussed surgi (more content not included)...[facility]10-10-2024 [facility] 02-23-2024 NoteHNO ID: [id number] Author: MICKEY GRADY RN Service: Nursing Author Type: Registered Nurse Type: Nursing Progress Note Filed: 02/23/2024 13:21 Note Text: Other: Attempted to call report again. Transferred to a number that again went to [facility]06-20-2024 NoteHNO ID: [id number] Author: MICKEY GRADY RN Service: Nursing Author Type: Registered Nurse Type: Nursing Progress Note Filed: 02/23/2024 12:25 Note Text: Other: attempted to call report. Sent to [employer]. [facility]06-20-2024 NoteHNO ID: [id number] Author: LISETTE LUCIANO RN Service: Care Management Author Type: Registered Nurse Type: Care Mgt Progress Note Filed: 02/23/2024 07:40 Note Text: CARE MANAGEMENT DISCHARGE NOTE SERVICE DATE: February 23, 2024 SERVICE TIME: 729 Admission Date: 02/16/2024 LOS: 7 days Discharge Arrangement: D/C to [facility] for Skilled PT/OT. 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 Handoff Communication: Additional Information: Discharge Information Row Name ED to Hosp-Admission (Current) from 02/16/2024 in MR 5B MED/SURG Alf Facility Agency [facility] Has met 3 [place]pt [place] stay. PASRR done. Postacute Transfer form on chart. Amb form uploaded into [facility]. D/C to [facility] for Skilled PT/OT. Pt, Physician, RN and SNF notified of above. Case closed. SIGNATURE: Lisette Luciano RN PATIENT NAME: May Leonard DATE: February 23, 2024 TIME: 7:38 AM CONTACT #: [phone] NoteHNO ID: [id number] Author: LISETTE LUCIANO RN Service: Care Management Author Type: Registered Nurse Type: Care Mgt Progress Note Filed: 02/23/2024 07:30 Note Text: CARE MANAGEMENT PROGRESS NOTE SERVICE DATE: 02/23/2024 SERVICE TIME: 724 LOS: 7 days IMM Follow Up Copy Given: Yes Copy given to:: Patient Method: In Person SIGNATURE: Lisette Luciano RN PATIENT NAME: May Leonard DATE: February 23, 2024 TIME: 7:29 AM PAGER/CONTACT #: [phone]06-20-2024 Note HNO ID: [id number] Author: DANIE GRACIA MD Service: Orthopaedic Surgery Author Type: Physician Type: Progress Notes Filed: 02/23/2024 07:06 Note Text: ORTHOPAEDIC SURGERY PROGRESS NOTE PATIENT NAME: May Leonard Surgery Date: 02/20/2024 Surgeon: Danie Ely MD Procedure(s): Procedure(s) (LRB): ARTHROPLASTY TOTAL HIP CONVERSION AFTER PREVIOUS HIP SURG (Right) Subjective: Patient seen and examined this morning. Resting comfortably in bed. Pain within expected limits for postoperative period and reasonably controlled with medications. No acute over night events. Denies chest pain/SOB this morning. Has been able to get up to chair. Status post red blood cell transfusion yesterday for low hemoglobin. Denies any chest pain, shortness of breath, lightheadedness, or dizziness this morning.. Vitals: 02/22/24 1422 02/22/24 1441 02/22/24 1545 02/22/24 2344 BP: 101/65 129/59 126/55 109/57 Pulse: 74 (!) 51 82 70 Resp: 19 18 Temp: 37.3 ?C (99.2 ?F) 37.1 ?C (98.8 ?F) (!) 35.9 ?C (96.6 ?F) TempSrc: Oral Oral Oral SpO2: 97% 92% 99% 96% Weight: Height: I/O: Intake/Output Summary (Last 24 hours) at 02/23/2024 0703 Last data filed at 02/23/2024 0631 Gross per 24 hour Intake 676 ml Output 1475 ml Net -799 ml Problem List: ACTIVE PROBLEM LIST Special Screening for Malignant Neoplasms, Colon Benign Neoplasm of Colon Sebaceous Cyst Hypertension Glenoid Fracture of Shoulder, Right, Closed, Initial Encounter Hyponatremia Anemia Leukocytosis Thrombocytosis Anxiety Closed Displaced Fracture of Right Femoral Neck (Hcc) Physical Exam: Right Lower Extremity: Dressing clean, dry, and intact. Sensation intact to light touch in all peripheral nerve distributions of foot and ankle. + active EHL/FHL/ankle DF and ankle PF. Foot is warm and well perfused. Palpable DP pulse. Expected postop swelling. Compartments of thigh, lower leg, and foot are soft and easily compressible. Labs: CBC, Coags, BMP, Mg, Phos Recent Labs 02/23/24 0338 02/22/24 0708 02/21/24 0720 WBC 9.30 11.87* 14.40* HB 7.4* 6.8* 7.8* HCT 21.3* 19.8* 23.2* PLT 412* 401* 341 NA 130* 126* 129* K 4.5 -- 4.6 CHLOR 99 98 99 CO2 27 22 25 BUN 23 20 19 CREAT 0.48* 0.63 0.61 GLUC 89 97 164* CA 8.8 9.1 8.9 MG -- 1.7 1.6 P -- 3.3 4.7 Impression/Plan: May Leonard is a 83 year old female POD #3, S/P Procedure(s) (LRB): ARTHROPLASTY TOTAL HIP CONVERSION AFTER PREVIOUS HIP SURG (Right) Weight bearing: Touchdown Weight bearing on the right lower extremity, if unable to TDWB then NWB on the right leg for now - Antibiotics: post op ancef - DVT prophylaxis: SCDs, mobilization, lovenox - Hemoglobin 7.4 this morning. S/p PRBC transfusion yesterday. Denies chest pain, shortness of breath, lightheadedness, dizziness. - PT/OT - Multimodal pain control - Anticipated D/C: Patient will likely need rehab facility at d/c - Medical management per primary team - Please do not hesitate to call me with any questions or concerns -Follow up in my office in approx 2 weeks for new Xrs and wound check -F/u intra-op culture- NGTD -rx for pain medication and postop DVT prophylaxis prescribed and placed in hard chart Danie Gracia MD 7:03 AM [facility] Cell phone: [phone][facility]06-19-2024 NoteHNO ID: [id number] Author: TONG FELIX DO Service: Hospital Medicine Author Type: Physician Type: Progress Notes Filed: 02/22/2024 17:17 Note Text: HOSPITALIST SERVICE DAILY PROGRESS NOTE PRIMARY CARE PHYSICIAN: Rosaura Peck MD, MD SUBJECTIVE: Patient seen and examined at bedside. This is the first day that I am seeing the patient. She has been hospitalized for the last 6 days for right intertrochanteric femoral neck fracture. She has since had a revision of hip arthroplasty. Pain is under control at this time. Sodium level has decreased to 126 today. Patient's does have a history of hyponatremia. She is normally on a fluid restriction at home. Hemoglobin has decreased to 6.8 and blood transfusion has been ordered. The OBJECTIVE: PHYSICAL EXAM: BP 126/55 Pulse 82 Temp (Src) 98.8 (Oral) Resp 18 Ht 5' 4" (1.63m) Wt 117 lb 14.4 oz (53.5kg) SpO2 99% BMI 20.23 kg/(m2). O2 Therapy: Room Air General: Patient is alert and oriented x3 and is in no acute respiratory distress HEENT: Normal cephalic, atraumatic, PERRLA, TM's normal, Nose clear, Mouth normal Neck: Negative hepatojugular reflux or jugular venous distention, negative carotid bruit. Lungs: Clear to auscultation, no wheezing, rales, or rhonchi. Cardiac: Regular rhythm and rate, S1-S2 within normal limits, no murmurs, gallops were appreciated, no rubs. Abdomen: Soft, nontender, nondistended, no HSM detected, bowel sounds are active. Extremities: No edema, cyanosis, or clubbing. Skin: No rashes or breakdown. Musculoskeletal: normal MS exam, moves all extremities, DTR's normal Lymphatic: Negative cervical, supra-clavicular, groin lymphadenopathy. Neurologic: Cranial nerves from II-XII intact grossly, no focal deficits. Psychiatry: Normal affect. DATA: Intake/Output Summary (Last 24 hours) at 02/22/2024 1712 Last data filed at 02/22/2024 1657 Gross per 24 hour Intake 426 ml Output 1250 ml Net -824 ml Current Facility-Administered Medications Medication Dose Route Frequency Provider Last Rate Last Admin wticcya-wmpcqekkr-thqrmog D3 500 mg-5 mcg (200 unit) 2 tablet 2 tablet ORAL BID Danie Gracia MD 2 tablet at 02/22/24 0845 senna 17.2 mg tab(s) (SENOKOT) 17.2 mg ORAL AT BEDTIME Danie Gracia MD 17.2 mg at 02/21/242030 enoxaparin 40 mg injection (LOVENOX) 40 mg SUBCUTANEOUS q 24 HR Danie Gracia MD 40 mg at 02/22/24 0845 acetaminophen 1,000 mg tab(s) (TYLENOL) 1,000 mg ORAL q 8 HR Danie Gracia MD 1,000 mg at 02/22/24 0845 traMADol 50 mg tab(s) (ULTRAM) 50 mg ORAL q 6 H PRN Danie Gracia MD oxyCODONE IR 5-10 mg tab(s) (ROXICODONE) 5-10 mg ORAL q 3 H PRN Danie Gracia MD 10 mg at 02/22/24 1454 morphine 1 mg injection 1 mg INTRAVENOUS q 2 H PRN Danie Gracia MD 1 mg at 02/21/24 1819 lidocaine 4 % 1 Patch (SALONPAS) 1 Patch TRANSDERMAL DAILY Abner Gerard MD 1 Patch at 02/22/24 0846 And lidocaine patch - REMOVE OTHER AT BEDTIME Abner Gerard MD And lidocaine - VERIFY PATCH OTHER q 8 H Abner Gerard MD psyllium Husk 0.52 g cap(s) 0.52 g ORAL AT BEDTIME PRN Danie Gracia MD docusate sodium 100 mg cap(s) (COLACE) 100 mg ORAL BID PRN Danie Gracia MD 100 mg at 02/21/24 0755 polyethylene glycol 3350 17 g packet 17 g ORAL DAILY Danie Gracia MD 17 g at 02/22/24 0846 NaCl 0.9% iv flush bag 20 mL INTRAVENOUS PRN Danie Gracia MD ondansetron 4 mg tab(s) (ZOFRAN) 4 mg ORAL q 6 H PRN Danie Gracia MD Or ondansetron (PF) 4 mg injection (ZOFRAN) 4 mg INTRAVENOUS q 6 H PRN Danie Gracia MD 4 mg at 02/19/24 0618 LORazepam 0.5 mg tab(s) (ATIVAN) 0.5 mg ORAL AT BEDTIME Danie Gracia MD 0.5 mg at 02/21/242030 lisinopril 20 mg tab(s) (ZESTRIL) 20 mg ORAL DAILY Danie Gracia MD 20 mg at 02/22/24 0845 Recent Results (from the past 36 hour(s)) COMPLETE BLOOD COUNT AND DIFFERENTIAL Collection Time: 02/21/24 7:20 AM Result Value Ref Range WBC 14.40 (H) 3.70 - 11.00 k/uL RBC 2.46 (L) 3.90 - 5.20 m/uL Hemoglobin 7.8 (L) 11.5 - 15.5 g/dL Hematocrit 23.2 (L) 36.0 - 46.0 % MCV 94.3 80.0 - 100.0 fL MCH 31.7 26.0 - 34.0 pg MCHC 33.6 30.5 - 36.0 g/dL RDW-CV 14.0 11.5 - 15.0 % Platelet Count 341 150 - 400 k/uL MPV 8.9 (L) 9.0 - 12.7 fL Neutrophils % 83.8 % Abs Neut 12.07 (H) 1.45 - 7.50 k/uL Lymphocytes % 6.7 % Abs Lymph 0.97 (L) 1.00 - 4.00 k/uL Monocytes % 8.5 % Abs Carlton 1.22 (H) <0.87 k/uL Eosinophils % 0.0 % Abs Eosin <0.03 <0.46 k/uL Basophils % 0.1 % Abs Baso <0.03 <0.11 k/uL Immature Granulocytes % 0.9 % Abs Immature Gran 0.13 (H) <0.10 k/uL NRBC 0.0 /100 WBC Absolute nRBC <0.01 <0.01 k/uL Diff Type Auto BASIC METABOLIC PANEL Collection Time: 02/21/24 7:20 AM Result Value Ref Range Glucose 164 (H) 70 - 100 mg/dL BUN 19 7 - 26 mg/dL Creatinine 0.61 0.51 - 0.95 mg/dL Sodium 129 (L) 136 - 145 mmol/L Potassium 4.6 3.5 - 5.1 mmol/L Chloride 99 98 - 107 mmol/L CO2 25 21 - 32 mmol/L An (more content not included)...[facility]06-19-2024 NoteHNO ID: [id number] Author: LISETTE LUCIANO RN Service: Care Management Author Type: Registered Nurse Type: Care Mgt Progress Note Filed: 02/22/2024 13:07 Note Text: CARE MANAGEMENT PROGRESS NOTE SERVICE DATE: 02/22/2024 SERVICE TIME: 1300 LOS: 6 days Chart Reviewed. Presented with R Hip pain. Admitted and Dx with R Hip Fx. Is usually A/O x4 and independent in all ADL's. 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 Lives alone. Has med and Rx coverage. PCP is . S/p R Hip Arthocentesis by on 02/17/24. S/p R Total Hip Conversion by on 02/20/24. [facility] Low H/H- receiving PRBC's. Disclaimer given that if any form of amb transportation is used upon d/c there may be an OOP cost- pt verbalized understanding. [facility] when med cleared- [facility] SCHED TRANSPORT FOR 2PM ON Tuesday02/23/24- Will adjust accordingly. Has met 3 [place]pt [place] stay on 02/19/24. PASRR done. Postacute Transfer form on chart. Amb form uploaded into [facility]. Transport referral completed. CM will cont to follow and assist with safe d/c planning. SIGNATURE: Lisette Luciano RN PATIENT NAME: May Leonard DATE: February 22, 2024 TIME: 1:05 PM PAGER/CONTACT #: [phone]. [facility]06-19-2024 Note HNO ID: [id number] Author: DANIE GRACIA MD Service: Orthopaedic Surgery Author Type: Physician Type: Progress Notes Filed: 02/22/2024 22:53 Note Text: ORTHOPAEDIC SURGERY PROGRESS NOTE PATIENT NAME: May Leonard Surgery Date: 02/20/2024 Surgeon: Danie Ely MD Procedure(s): Procedure(s) (LRB): ARTHROPLASTY TOTAL HIP CONVERSION AFTER PREVIOUS HIP SURG (Right) Subjective: Patient seen and examined this morning. Resting comfortably in bed. Pain within expected limits for postoperative period and reasonably controlled with medications. No acute over night events. Denies chest pain/SOB this morning. Vitals: 02/22/24 1241 02/22/24 1422 02/22/24 1441 02/22/24 1545 BP: 108/62 101/65 129/59 126/55 Pulse: 87 74 (!) 51 82 Resp: Temp: 36.6 ?C (97.8 ?F) 37.3 ?C (99.2 ?F) 37.1 ?C (98.8 ?F) TempSrc: Oral Oral SpO2: 98% 97% 92% 99% Weight: Height: I/O: Intake/Output Summary (Last 24 hours) at 02/22/20242 Last data filed at 02/22/2024 1847 Gross per 24 hour Intake 426 ml Output 975 ml Net -549 ml Problem List: ACTIVE PROBLEM LIST Special Screening for Malignant Neoplasms, Colon Benign Neoplasm of Colon Sebaceous Cyst Hypertension Glenoid Fracture of Shoulder, Right, Closed, Initial Encounter Hyponatremia Anemia Leukocytosis Thrombocytosis Anxiety Closed Displaced Fracture of Right Femoral Neck (Hcc) Physical Exam: Right Lower Extremity: Dressing clean, dry, and intact. Sensation intact to light touch in all peripheral nerve distributions of foot and ankle. + active EHL/FHL/ankle DF and ankle PF. Foot is warm and well perfused. Palpable DP pulse. Expected postop swelling. Compartments of thigh, lower leg, and foot are soft and easily compressible. States pain with passive hip motion is improved compared to pre-op Labs: CBC, Coags, BMP, Mg, Phos Recent Labs 02/22/24 0708 02/21/24 0720 02/20/24 0623 WBC 11.87* 14.40* 12.19* HB 6.8* 7.8* 9.4* HCT 19.8* 23.2* 27.5* PLT 401* 341 389 NA 126* 129* 129* K -- 4.6 4.2 CHLOR 98 99 97* CO2 22 25 27 BUN 20 19 14 CREAT 0.63 0.61 0.43* GLUC 97 164* 138* CA 9.1 8.9 9.0 MG 1.7 1.6 -- P 3.3 4.7 -- Impression/Plan: May Leonard is a 83 year old female POD #1, S/P Procedure(s) (LRB): ARTHROPLASTY TOTAL HIP CONVERSION AFTER PREVIOUS HIP SURG (Right) - Weight bearing: Touchdown Weight bearing on the right lower extremity, if unable to TDWB then NWB on the right leg for now - Antibiotics: post op ancef - DVT prophylaxis: SCDs, mobilization, lovenox - Hemoglobin 6.8 today, plan for prbc transfusion - PT/OT - Multimodal pain control - Anticipated D/C: Patient will likely need rehab facility at d/c - Medical management per primary team - Please do not hesitate to call me with any questions or concerns -Follow up in my office in approx 2 weeks for new Xrs and wound check -F/u intra-op culture- NGTD Danie Gracia MD 10:52 PM [facility] Cell phone: [phone]. [facility]06-18-2024 NoteHNO ID: [id number] Author: ABNER GERARD MD Service: Hospital Medicine Author Type: Physician Type: Progress Notes Filed: 02/21/2024 16:57 Note Text: INPATIENT PROGRESS NOTE SERVICE DATE: 02/20/2024 SERVICE TIME: 4:47 PM PRIMARY SERVICE: Hospital Medicine CHIEF COMPLAINT: Right hip pain Subjective : Patient is status post total hip arthroplasty conversion after previous hip surgery right, tolerated procedure well however patient still has not had a bowel movement since admission despite being on stool softeners. Noted left hand swelling x-ray was obtained of the hand. No other complaints based patient. Objective PHYSICAL EXAM: BP 119/52 Pulse 69 Temp (Src) 98.4 (Oral) Resp 20 Ht 5' 4" (1.63m) Wt 117 lb 14.4 oz (53.5kg) SpO2 90% BMI 20.23 kg/(m2). O2 Therapy: Room Air Physical Exam Performed GENERAL: Alert, no distress, cooperative SKIN: Skin color, texture, turgor normal. No rashes or lesions. LUNGS: Lungs clear to auscultation, Good diaphragmatic excursion CARDIAC: Normal S1 and S2; no rubs, murmurs, or gallops ABDOMEN: Abdomen soft, non-tender, BS normal, No masses or organomegaly EXTREMITIES: Extremities normal, no deformities, edema, clubbing or skin discoloration. Good capillary refill., No ulcers NEURO: Gait normal. Reflexes normal and symmetric. Sensation grossly intact, Cranial nerves II-XII intact PULSES: 2+ radial, 2+ carotid DATA: Diagnostic tests reviewed for today's visit: Most recent labs and imaging results. CBC, Coags, BMP, Mg, Phos Recent Labs 02/21/24 0720 02/20/24 0623 WBC 14.40* 12.19* HB 7.8* 9.4* HCT 23.2* 27.5* PLT 341 389 NA 129* 129* K 4.6 4.2 CHLOR 99 97* CO2 25 27 BUN 19 14 CREAT 0.61 0.43* GLUC 164* 138* CA 8.9 9.0 MG 1.6 -- P 4.7 -- Assessment/Plan : Is a 83-year-old female past medical history of hypertension, arthritis, spinal stenosis presenting with right hip pain. Noted to have right hip cephalomedullary nail fixation of intra contacted fracture 1 year ago. Admits to having fall back in December associated with right hip pain and trouble ambulation. 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 Scheduled to receive total hip arthroplasty today. Right hip intertrochanteric femoral neck fracture with hardware failure Orthopedic on board And arthrocentesis to rule out septic joint Placed n.p.o. at midnight Plan for total hip arthroplasty Analgesics as needed per orthopedics PT OT once medically stable Constipation Patient has not reported bowel movement since admission Will continue Colace/MiraLAX as needed Will add additional stool softener if patient has not had a bowel movement tonight Left shoulder pain Positive range of motion restricted Pain in the left shoulder 10 out of 10 in severity X-ray of the left shoulder positive for degenerative change at the glenohumeral joint with chondrocalcinosis noted for CPPD arthropathy Cont Tylenol [address] lidocaine patch on left shoulder today Left hand swelling X-ray of left nonspecific soft tissue swelling at the dorsum of the hand and wrist. No acute osseous abnormality identified. Osteopenia with remote fracture deformity of the distal radius and associated radiocarpal osteoarthritis. There is chondrocalcinosis. Severe degenerative changes also present at the trace joint and first carpometacarpal joint Can cont to take tylenol 650 mg PO daily Other chronic comorbid's: Home meds have been reconciled Hypertension Arthritis Spinal stenosis Disposition: TBD DVT PPX: scds DIET: N.p.o. for now FLUIDS: 75 cc/h of LR DEVICES/LINES/CATHETERS: PIV CODE STATUS: Full Code VTE Prophylaxis: VTE prophylaxis appropriate SIGNATURE: Abner Gerard MD PATIENT NAME: May Leonard DATE: February 21, 2024 TIME: 4:26 PM This note was created using voice recognition software and is inherently subject to errors including those of syntax and sound alike substitutions which may have escaped proofreading. In such instances, original meaning may be extrapolated by contextual derivation. The time of this note does not reflect the time I saw the patient but the time that this note was written.[facility]06-18-2024 NoteHNO ID: [id number] Author: LISETTE LUCIANO, DAWN Service: Care Management Author Type: Registered Nurse Type: Care Mgt Initial Assessment Filed: 02/21/2024 12:03 Note Text: CARE MANAGEMENT: ASSESSMENT AND DISCHARGE PLAN SERVICE DATE: February 21, 2024 SERVICE TIME: 1130 PCP: Rosaura Peck MD, MD Primary Contact: Extended Emergency Contact Information Primary Emergency Contact: Sergei Boo Mobile Relation: Other Secondary Emergency Contact: JESSICA ALLEN Mobile Relation: Daughter Admission Status: Inpatient Insurance Provider: MEDICARE A AND B Discharge Planning requested by: Per Department Practice Potential Transition Plans Alf Facility/Intermediate Care Facility Advance Directives Current Advance Directive: Health Care Power of Wellness Manager In Chart: No Lock Installer Attempted to Assist with AD Completion: No Current Living Arrangements and Support Lives with: Alone Type of Residence: Private Residence (Apartment or Condo) Does the patient have to climb stairs at home?: stairs outside the home Support: Children How do you manage to accomplish the following: Independent: Ambulation;Bathe/Shower;Dress;Meals/Meal Prep;Going to the bathroom;Medication Management;Transportation to appointments/community Needs Assistance: Transportation to appointments/community Current Services/Equipment Current Post-Acute Service(s): DME Current DME Type: Bedside commode, Shower seat, Wheelchair-manual, Walker, Rolling walker, Grab bars Discharge Planning Patient Goal(s): General wellness, Less pain [place] of Choice Explained: [place] of Choice Given: Yes Level of Care Discussed: Alf Facility Are you interested in bedside delivery of your medications? 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 Needs Prior to Discharge: Post-Acute Discharge Plan: Chart Reviewed. Presented with R Hip pain. Admitted and Dx with R Hip Fx. Is usually A/O x4 and independent in all ADL's. 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 Lives alone. Has 2 steps vs ramp to enter one level set up. Has a wheeled walker, rollator, 3 in 1 commode, shower chair, grab bars and manual w/c. Has med and Rx coverage. PCP is . S/p R Hip Arthocentesis by on 02/17/24. S/p R Total Hip Conversion by on 02/20/24. PT/OT rec SNF. FOC is [facility] and they can accept. Disclaimer given that if any form of amb transportation is used upon d/c there may be an OOP cost- pt verbalized understanding. D/C Plan is [facility] for [facility] PT/OT when med cleared. Has met 3 Inpt [place] stay on 02/19/24. PASRR done. Postacute Transfer form on chart. [facility] Transport referral initiated. CM will cont to follow and assist with safe d/c planning. -------- Intimate Partner Violence/Safe at Home Do you feel safe at home?: Yes Food Insecurity Within the past 12 months, you worried that your food would run out before you got the money to buy more.: Never true Within the past 12 months, the food you bought just didn't last and you didn't have money to get more.: Never true Transportation Needs In the past 12 months, has lack of transportation kept you from medical appointments or from getting medications?: No In the past 12 months, has lack of transportation kept you from meetings, work, or from getting things needed for daily living?: No Housing Stability In the last 12 months, was there a time when you were not able to pay the mortgage or rent on time?: No In the last 12 months, was there a time when you did not have a steady place to sleep or slept in a alf (including now)?: No Utilities In the past 12 months has the [place], gas, oil, or water [employer] threatened to shut off services in your home?: No Social Information Financial Resources: Retired SIGNATURE: Lisette Luciano RN PATIENT NAME: May Leonard DATE: February 21, 2024 TIME: 11:37 AM CONTACT #: [phone]. [facility]06-18-2024 NoteHNO ID: [id number] Author: DANIE GRACIA MD Service: Orthopaedic Surgery Author Type: Physician Type: Progress Notes Filed: 02/21/2024 11:30 Note Text: ORTHOPAEDIC SURGERY PROGRESS NOTE PATIENT NAME: May Leonard Surgery Date: 02/20/2024 Surgeon: Danie Ely MD Procedure(s): Procedure(s) (LRB): ARTHROPLASTY TOTAL HIP CONVERSION AFTER PREVIOUS HIP SURG (Right) Subjective: Patient seen and examined this morning. Resting comfortably in bed. Pain within expected limits for postoperative period and reasonably controlled with medications. No acute over night events. Denies chest pain/SOB this morning. Discussed findings of surgery and pos top restrictions. Vitals: 02/21/24 0115 02/21/24 0130 02/21/24 0201 02/21/24 0730 BP: 138/68 122/57 122/71 120/62 Pulse: 64 65 65 67 Resp: Temp: 36.4 ?C (97.6 ?F) 36.8 ?C (98.2 ?F) 36.8 ?C (98.3 ?F) TempSrc: Temporal Oral Axillary SpO2: 98% 92% 94% 93% Weight: Height: I/O: Intake/Output Summary (Last 24 hours) at 02/21/2024 1125 Last data filed at 02/21/2024 0634 Gross per 24 hour Intake 4400 ml Output 1730 ml Net 2670 ml Problem List: ACTIVE PROBLEM LIST Special Screening for Malignant Neoplasms, Colon Benign Neoplasm of Colon Sebaceous Cyst Hypertension Glenoid Fracture of Shoulder, Right, Closed, Initial Encounter Hyponatremia Anemia Leukocytosis Thrombocytosis Anxiety Closed Displaced Fracture of Right Femoral Neck (Hcc) Physical Exam: Right Lower Extremity: Dressing clean, dry, and intact. Sensation intact to light touch in all peripheral nerve distributions of foot and ankle. + active EHL/FHL/ankle DF and ankle PF. Foot is warm and well perfused. Palpable DP pulse. Expected postop swelling. Compartments of thigh, lower leg, and foot are soft and easily compressible. States pain with passive hip motion is improved compared to pre-op Labs: CBC, Coags, BMP, Mg, Phos Recent Labs 02/21/24 0720 02/20/24 0623 WBC 14.40* 12.19* HB 7.8* 9.4* HCT 23.2* 27.5* PLT 341 389 NA 129* 129* K 4.6 4.2 CHLOR 99 97* CO2 25 27 BUN 19 14 CREAT 0.61 0.43* GLUC 164* 138* CA 8.9 9.0 MG 1.6 -- P 4.7 -- Impression/Plan: May Leonard is a 83 year old female POD #1, S/P Procedure(s) (LRB): ARTHROPLASTY TOTAL HIP CONVERSION AFTER PREVIOUS HIP SURG (Right) - Weight bearing: Touchdown Weight bearing on the right lower extremity, if unable to TDWB then NWB on the right leg for now - Antibiotics: post op ancef - DVT prophylaxis: SCDs, mobilization, lovenox - Hemoglobin 7.8 post op, decision to transfuse per primary - PT/OT - Multimodal pain control - Anticipated D/C: Patient will likely need rehab facility at d/c - Medical management per primary team - Please do not hesitate to call me with any questions or concerns -Follow up in my office in approx 2 weeks for new Xrs and wound check -F/u intra-op culture- NGTD Danie Gracia MD 11:25 AM [facility] Cell phone: [phone]. [facility]ph[facility]06-18-2024 NoteHNO ID: [id number] Author: SHERIE JONES, DAWN Service: Nursing Author Type: Registered Nurse Type: Nursing Progress Note Filed: 02/21/2024 01:06 Note Text: 0045-DR GRACIA AT BEDSIDE. 0055-RADIOLOGY AT [facility]06-17-2024 NoteHNO ID: [id number] Author: BRONSON JON APRN.BLACK TOP MACHINE OPERATOR Service: ? Author Type: Nurse Collections Attorney Type: Anesthesia Procedure Notes Filed: 02/20/2024 18:45 Note Text: ANESTHESIOLOGY PROCEDURE NOTE A-Line General Information Procedure Start Time/Medication Administration: 02/20/2024 6:10 PM Procedure End Time: 02/20/2024 6:14 PM Patient location during procedure: OR Timeout Performed Pre-procedure: timeout performed Indications: continuous blood pressure monitoring and blood sampling needed Staffing Anesthesiologist: José Miguel Fuller MD BLACK TOP MACHINE OPERATOR: Bronson Jon APRN.BLACK TOP MACHINE OPERATOR Performed by: anesthesiologist Preparation Sterility Preparation: hand hygiene performed prior to procedure, sterile gloves, drapes, and procedure tray, surgical cap used, mask used, sterile drape used during line insertion, skin prep agent completely dried prior to procedure Sterility Technique Not Completely Performed Due to Extreme Emergency: No Site Prep: Chloraprep Procedure Details Catheter Type: arterial line Catheter Size: 20 G Catheter Length: 2 in Micropuncture Kit Used: No Guidewire Used: Yes Guidewire Removed Intact: Yes Laterality: left Site: radial artery Ultrasound Guided: No Line Secured: tape, Tegaderm and occlusive biodressing Events Events: patient tolerated procedure well with no complications SIGNATURE: Bronson Barron APRN.BLACK TOP MACHINE OPERATOR PATIENT NAME: May Leonard DATE: February 20, 2024 TIME: 6:43 PM CSN: [id number]. Alphonsus Medical Center06-17-2024 NoteHNO ID: [id number] Author: BRONSON JON APRN.BLACK TOP MACHINE OPERATOR Service: ? Author Type: Nurse Collections Attorney Type: Anesthesia Procedure Notes Filed: 02/20/2024 18:33 Note Text: ANESTHESIOLOGY PROCEDURE NOTE Airway General Information Procedure Start Time/Medication Administration: 02/20/2024 6:13 PM Procedure End Time: 02/20/2024 6:13 PM Patient location during procedure: OR Timeout Performed Pre-procedure: timeout performed Consent Obtained: Yes Patient identity confirmed: arm band and patient Staffing Anesthesiologist: José Miguel Fuller MD BLACK TOP MACHINE OPERATOR: Bronson Jon APRN.BLACK TOP MACHINE OPERATOR Performed by: DENTON Indications and Patient Condition Indications for airway management: anesthesia Preoxygenated: yes anesthesia circuit Patient position: sniffing Method: asleep Cricoid Pressure: No Manual In-Line Stabilization: No Difficult Mask: No Final Airway Details Final airway type: endotracheal airway Final Endotracheal Airway: ETT Cuffed: yes Successful intubation technique: video laryngoscopy Devices used: Bhatt Endotracheal tube insertion site: oral Blade size: #3 ETT size (mm): 7.0 Measured from: lips Measurement (cm): 19 Placement verified by: chest auscultation and capnometry Cormack-Lehane Classification: grade I - full view of glottis Number of attempts at approach: 1 Failed airway: no Unrecognized esophageal intubation: no Airway not difficult SIGNATURE: Bronson Barron APRN.CRNA PATIENT NAME: May Leonard DATE: February 20, 2024 TIME: 6:32 PM CSN: [id number]. Alphonsus Medical Center06-17-2024 NoteHNO ID: [id number] Author: DANIE GRACIA MD Service: Orthopaedic Surgery Author Type: Physician Type: Progress Notes Filed: 02/20/2024 17:19 Note Text: Orthopedic surgery preoperative note Patient seen and examined. Pain well-controlled. On exam she is resting comfortably in bed. No acute distress. Active EHL/FHL/DF/PF. Foot warm well-perfused. Palpable DP pulse. Pain with motion of the right hip. Cultures reviewed and negative x 3 days. Plan for surgery this evening. Discussed nature of her injury again today as well as plan for surgery. She has a broken right hip cephalomedullary nail and a intertrochanteric fracture nonunion. Discussed treatment options with the patient including risk, benefits, and alternatives. We discussed nonoperative management all surgical options. Discussed possible revision fixation versus conversion to an arthroplasty. Discussed revision to a total versus partial hip replacement. Discussed with the patient that I feel that would be in her best interest for a conversion to a right total hip arthroplasty. I feel that the conversion to a total hip versus a partial hip is beneficial as this would allow for potentially going to a constrained liner if she has instability issues postoperatively. She does have a fracture through the trochanter and I am somewhat concerned about the integrity of the abductor mechanism. I discussed with her that I would try to repair the abductors and trochanter as stable as possible, however if there is an significant abductor mechanism or significant instability intraoperatively, I would likely go to a constrained liner. I did discuss with the patient that this is a major surgery. 2 units of packed red cells have been ordered and are on hold for the OR. Discussed risk including but not limited to infection, wound issues, damage to blood vessel/tendon/nerves, need for further surgeries, and fracture propagation, instability, leg length discrepancy, heart attack, stroke, other medical and anesthetic complications, bleeding potentiallynecessitating transfusion, blood clots. After discussion with the patient, she is understanding and would like to proceed. She is agreeable to blood products if needed. She would like to proceed to the OR today for removal of broken deep hardware of her right femur and conversion right total hip arthroplasty. I discussed with her that if there is significant findings intraoperatively concerning for infection, that plan would be for a spacer placement. She is understanding of this. Patient seen in the preoperative holding area. Informed consent has been obtained and documented. Operative extremity marked. NPO. Preoperative Ancef and TXA. [facility] NoteHNO ID: [id number] Author: ABNER GERARD MD Service: Hospital Medicine Author Type: Physician Type: Progress Notes Filed: 02/20/2024 16:56 Note Text: INPATIENT PROGRESS NOTE SERVICE DATE: 02/20/2024 SERVICE TIME: 4:47 PM PRIMARY SERVICE: Hospital Medicine CHIEF COMPLAINT: Right hip pain Subjective : Patient remains hemodynamically stable complained of left shoulder pain with restricted range of motion 10 out of 10 in severity. I proceeded to order an left x-ray of the shoulder. Patient to receive total hip arthroplasty today. No bowel movement reported. Objective PHYSICAL EXAM: BP 162/93 Pulse 63 Temp (Src) 98.3 (Oral) Resp 18 Ht 5' 4" (1.63m) Wt 117 lb 14.4 oz (53.5kg) SpO2 95% BMI 20.23 kg/(m2). O2 Therapy: Room Air Physical Exam Performed GENERAL: Alert, no distress, cooperative SKIN: Skin color, texture, turgor normal. No rashes or lesions. LUNGS: Lungs clear to auscultation, Good diaphragmatic excursion CARDIAC: Normal S1 and S2; no rubs, murmurs, or gallops ABDOMEN: Abdomen soft, non-tender, BS normal, No masses or organomegaly EXTREMITIES: Extremities normal, no deformities, edema, clubbing or skin discoloration. Good capillary refill., No ulcers NEURO: Gait normal. Reflexes normal and symmetric. Sensation grossly intact, Cranial nerves II-XII intact PULSES: 2+ radial, 2+ carotid DATA: Diagnostic tests reviewed for today's visit: Most recent labs and imaging results. CBC, Coags, BMP, Mg, Phos Recent Labs 02/20/24 0623 WBC 12.19* HB 9.4* HCT 27.5* PLT 389 NA 129* K 4.2 CHLOR 97* CO2 27 BUN 14 CREAT 0.43* GLUC 138* CA 9.0 Assessment/Plan : Is a 83-year-old female past medical history of hypertension, arthritis, spinal stenosis presenting with right hip pain. Noted to have right hip cephalomedullary nail fixation of intra contacted fracture 1 year ago. Admits to having fall back in December associated with right hip pain and trouble ambulation. 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 Scheduled to receive total hip arthroplasty today. Right hip intertrochanteric femoral neck fracture with hardware failure Orthopedic on board And arthrocentesis to rule out septic joint Placed n.p.o. at midnight Plan for total hip arthroplasty Analgesics as needed per orthopedics PT OT once medically stable Constipation Patient has not reported bowel movement since admission Will continue Colace/MiraLAX as needed Will add additional stool softener if patient has not had a bowel movement tonight Left shoulder pain Positive range of motion restricted Pain in the left shoulder 10 out of 10 in severity X-ray of the left shoulder positive for degenerative change at the glenohumeral joint with chondrocalcinosis noted for CPPD arthropathy Cont Tylenol 650 mg PRN Other chronic comorbid's: Home meds have been reconciled Hypertension Arthritis Spinal stenosis Disposition: TBD DVT PPX: scds DIET: N.p.o. for now FLUIDS: 75 cc/h of LR DEVICES/LINES/CATHETERS: PIV CODE STATUS: Full Code VTE Prophylaxis: VTE prophylaxis appropriate SIGNATURE: Abner Gerard MD PATIENT NAME: May Leonard DATE: February 20, 2024 TIME: 4:47 PM This note was created using voice recognition software and is inherently subject to errors including those of syntax and sound alike substitutions which may have escaped proofreading. In such instances, original meaning may be extrapolated by contextual derivation. The time of this note does not reflect the time I saw the patient but the time that this note was written.[facility]06-17-2024 NoteHNO ID: [id number] Author: LISETTE LUCIANO RN Service: Care Management Author Type: Registered Nurse Type: Care Mgt Progress Note Filed: 02/20/2024 14:24 Note Text: CARE MANAGEMENT PROGRESS NOTE SERVICE DATE: 02/20/2024 SERVICE TIME: 1420 LOS: 4 days Chart Reviewed. Presented with R Hip pain. Admitted and Dx with R Hip Fx. Is usually A/O x4 and independent in all ADL's. 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 Has med and Rx coverage. PCP is . S/p R Hip Arthocentesis by on 02/17/24. Returning to OR today. D/C Plan is TBD pending pt progression and recommendations. CM will cont to follow and assist with safe d/c planning. SIGNATURE: Lisette Luciano RN PATIENT NAME: May Leonard DATE: February 20, 2024 TIME: 2:22 PM PAGER/CONTACT #: [phone]. Alphonsus Medical Center06-17-2024 Note HNO ID: [id number] Author: LISETTE LUCIANO RN Service: Care Management Author Type: Registered Nurse Type: Care Mgt Progress Note Filed: 02/20/2024 14:22 Note Text: CARE MANAGEMENT PROGRESS NOTE SERVICE DATE: 02/20/2024 SERVICE TIME: 1420 LOS: 4 days IMM Follow Up Copy Given: Yes Copy given to:: Patient Method: In Person SIGNATURE: Lisette Luciano RN PATIENT NAME: May Leonard DATE: February 20, 2024 TIME: 2:21 PM PAGER/CONTACT #: [phone]. Alphonsus Medical Center06-16-2024 Note HNO ID: [id number] Author: JABIER KHAN DO Service: Hospital Medicine Author Type: Physician Type: Progress Notes Filed: 02/19/2024 12:05 Note Text: DEPARTMENT OF HOSPITAL MEDICINE PROGRESS NOTE SERVICE DATE: 02/19/2024 SERVICE TIME: 12:02 PM Hospital Medicine/Primary Attending: Vasu Khan DO Hospital Course: This is a 83-year-old female PMH hypertension, arthritis, spinal stenosis presents with right hip pain. Patient noted to have a right hip cephalomedullary nail fixation of intra contacted Fracture 1 year ago. Patient reported having a fall end of December on her right hip and has had trouble with ambulation. 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 She was subsequently sent to ED for evaluation. Orthopedics has evaluated patient recommended hospitalization for further management. Subjective INTERVAL HPI: Patient seen and examined. Reports right hip pain earlier today, improved after receiving morphine. Still no BM reported. No abdominal pain, nausea, vomiting, chest pain or shortness of breath reported. MEDICATIONS: Reviewed Objective PHYSICAL EXAM: BP 143/73 Pulse 65 Temp (Src) 98 (Oral) Resp 18 Ht 5' 4" (1.63m) Wt 117 lb 12.8 oz (53.4kg) SpO2 95% BMI 20.21 kg/(m2). O2 Therapy: Room Air Physical Exam Performed General: Alert, NAD, Cooperative CV: RRR, +[id number] Resp: CTA b/l, no wheeze, non-labored respirations Abd: Soft, NTND, +Bowel sounds Ext: no LE edema Lines, Drains, and Airways Line Duration Peripheral 02/16/24 1827 [facility] Short Left Forearm 20 Gauge 2 days Drain Duration External Collection Device 02/16/24 2200 [facility] 2 days Reviewed lines and needs to be continued: REASONS: IV meds DATA: Diagnostic tests reviewed for today's visit: Most recent labs and imaging results. Assessment/Plan Right hip intertrochanteric femoral neck fracture with hardware failure. Seen by orthopedist, underwent arthrocentesis to rule out septic joint. Likely needs total hip arthroplasty once infection ruled out. (Tentatively planned for 02/20/2024) Continue analgesics PRN. appreciate further orthopedic input. NPO after midnight. HTN-continue lisinopril Anxiety/depression-continue Ativan PRN Constipation - colace/miralax PRN. Medication and Non-Pharmacologic VTE Prophylaxis/Anticoagulants 02/18/24 1615 pneumatic compression stockings (de,ri) VTE Prophylaxis: VTE prophylaxis appropriate pharmacologic prophylaxis when ok by orthopedics. Disposition: To be determined Plan of care discussed with: Provider, RN, Patient. SIGNATURE: Vasu Khan DO PATIENT NAME: May Leonard DATE: February 19, 2024 TIME: 12:02 PMSt. [facility]06-15-2024 NoteHNO ID: [id number] Author: JABIER KHAN DO Service: Hospital Medicine Author Type: Physician Type: Progress Notes Filed: 02/18/2024 17:05 Note Text: DEPARTMENT OF HOSPITAL MEDICINE PROGRESS NOTE SERVICE DATE: 02/18/2024 SERVICE TIME: 4:10 PM Hospital Medicine/Primary Attending: Vasu Khan DO Hospital Course: This is a 83-year-old female PMH hypertension, arthritis, spinal stenosis presents with right hip pain. Patient noted to have a right hip cephalomedullary nail fixation of intra contacted Fracture 1 year ago. Patient reported having a fall end of December on her right hip and has had trouble with ambulation. 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 She was subsequently sent to ED for evaluation. Orthopedics has evaluated patient recommended hospitalization for further management. Subjective INTERVAL HPI: Patient seen and examined. Continues to have right hip pain but improved with medications. MEDICATIONS: Reviewed Objective PHYSICAL EXAM: BP 147/68 Pulse 67 Temp (Src) 97.8 (Oral) Resp 13 Ht 5' 4" (1.63m) Wt 116 lb (52.6kg) SpO2 98% BMI 19.90 kg/(m2). O2 Therapy: Room Air Physical Exam Performed General: Alert, NAD, Cooperative CV: RRR, +[id number] Resp: CTA b/l, no wheeze, non-labored respirations Abd: Soft, NTND, +Bowel sounds Ext: no LE edema Lines, Drains, and Airways Line Duration Peripheral 02/16/24 1827 [facility] Short Left Forearm 20 Gauge 1 day Drain Duration External Collection Device 02/16/24 2200 [facility] 1 day Reviewed lines and needs to be continued: REASONS: Iv meds DATA: Diagnostic tests reviewed for today's visit: Most recent labs and imaging results. Assessment/Plan Right hip intertrochanteric femoral neck fracture with hardware failure. Seen by orthopedist, underwent arthrocentesis to rule out septic joint. Likely needs total hip arthroplasty once infection ruled out. (Tentatively planned for 02/20/2024) Continue analgesics PRN. appreciate further orthopedic input. HTN-continue lisinopril Anxiety/depression-continue Ativan PRN Medication and Non-Pharmacologic VTE Prophylaxis/Anticoagulants VTE Prophylaxis: SCDs. Chemical prophylaxis when okay with orthopedist. Disposition: To be determined Plan of care discussed with: Provider, RN, Patient. SIGNATURE: Vasu Khna DO PATIENT NAME: May Leonard DATE: February 18, 2024 TIME: 4:10 [facility]06-15-2024 NoteHNO ID: [id number] Author: DANIE GRACIA MD Service: Orthopaedic Surgery Author Type: Physician Type: Progress Notes Filed: 02/18/2024 12:13 Note Text: ORTHOPAEDIC SURGERY PROGRESS NOTE PATIENT NAME: May Leonard Surgery Date: 02/17/2024 Surgeon: Danie Ely MD Procedure(s): Procedure(s) (LRB): NEEDLE ASPIRATION / ASPIRATION BIOPSY HIP (Right) Subjective: Patient seen and examined this morning. Resting comfortably in bed. Pain well-controlled. Discussed plans for surgery on Tuesday. Vitals: 02/18/24 0016 02/18/24 0826 02/18/24 0909 02/18/24 1139 BP: 134/75 156/80 141/70 Pulse: 66 61 60 Resp: Temp: 36.6 ?C (97.8 ?F) 36.8 ?C (98.2 ?F) 36.6 ?C (97.8 ?F) TempSrc: Oral Oral Oral SpO2: 97% 96% 98% Weight: 52.6 kg (116 lb) Height: I/O: Intake/Output Summary (Last 24 hours) at 02/18/2024 1210 Last data filed at 02/18/2024 1000 Gross per 24 hour Intake 270 ml Output 1850 ml Net -1580 ml Problem List: ACTIVE PROBLEM LIST Special Screening for Malignant Neoplasms, Colon Benign Neoplasm of Colon Sebaceous Cyst Hypertension Glenoid Fracture of Shoulder, Right, Closed, Initial Encounter Hyponatremia Anemia Leukocytosis Thrombocytosis Anxiety Closed Displaced Fracture of Right Femoral Neck (Hcc) Physical Exam: Gen: No acute distress, lying in bed Right lower extremity: No open wounds or gross deformities. Mild to moderate discomfort with motion of the hip. Active EHL/FHL/DF/PF. Foot and toes well-perfused. Compartments of the foot, leg, thigh soft and compressible. 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 Cultures negative so far-follow cultures from aspiration. N.p.o. postmidnight on Tuesday. Please do not hesitate to contact me with any questions or concerns. Discussed with patient this will be a major surgery. Discussed plan for conversion to a total hip arthroplasty. Discussed also possible antibiotic spacer placement if cultures come back positive for infection. Please optimize from a medical standpoint as able Danie Gracia MD 12:10 PM [facility] Cell phone: [phone] NoteHNO ID: [id number] Author: LISETTE LUCIANO RN Service: Care Management Author Type: Registered Nurse Type: Care Mgt Progress Note Filed: 02/17/2024 15:26 Note Text: CARE MANAGEMENT PROGRESS NOTE SERVICE DATE: 02/17/2024 SERVICE TIME: 1520 LOS: 1 day Chart Reviewed. INITIAL RISK ASSESSMENT NEEDS COMPLETE. Currently in OR. All information obtained from chart. Presented with R Hip pain. Admitted and Dx with R Hip Fx. Is usually A/O x4 and independent in all ADL's. 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 Has med and Rx coverage. PCP is . D/C Plan is TBD pending pt progression and recommendations. CM will cont to follow and assist with safe d/c planning. SIGNATURE: Lisette Luciano RN PATIENT NAME: May Leonard DATE: February 17, 2024 TIME: 3:21 PM PAGER/CONTACT #: [phone][facility]06-14-2024 Note HNO ID: [id number] Author: JUDY GONG MD Service: Hospital Medicine Author Type: Physician Type: Progress Notes Filed: 02/25/2024 16:11 Note Text: DEPARTMENT OF HOSPITAL MEDICINE PROGRESS NOTE SERVICE DATE: 02/17/2024 SERVICE TIME: 11:50 AM Hospital Medicine/Primary Attending: Judy Gong MD CHIEF COMPLAINT: 83-year-old female past medical history arthritis hypertension spinal stenosis hip surgery, fell in December. Was referred to pain management was getting steroid injection in the right hip had an appointment yesterday with the pain management they canceled the procedure due to suspicion of right hip fracture they directed her to the emergency room Ortho consulted for surgical intervention. SUBJECTIVE: Pt seen and examined. Seen by orthopedics. Surgery is canceled as there is a concern for infection. Aspiration is recommended prior to any surgical intervention. Patient denies any nausea vomiting no fevers and chills. Unable to ambulate due to above OBJECTIVE: PHYSICAL EXAM: BP 136/71 Pulse 58 Temp (Src) 98 (Oral) Resp 16 Ht 5' 4" (1.63m) Wt 116 lb (52.6kg) SpO2 97% BMI 19.90 kg/(m2). General - AANDOx3, NAD, Calm CV - RRR S1 S2, No M/R/G RESP - CTA B/L No wheezes, ronchi, rales ABD - soft, NT, ND +BS EXT -right hip pain NEURO - CN II-XII grossly intact, no focal deficits MEDICATIONS: Current Facility-Administered Medications Medication Dose Route Frequency NaCl 0.9% iv flush bag 20 mL INTRAVENOUS PRN lactated ringers iv infusion 75 mL/hr INTRAVENOUS CONTINUOUS ondansetron 4 mg tab(s) (ZOFRAN) 4 mg ORAL q 6 H PRN Or ondansetron (PF) 4 mg injection (ZOFRAN) 4 mg INTRAVENOUS q 6 H PRN acetaminophen 650 mg tab(s) (TYLENOL) 650 mg ORAL q 6 H PRN oxyCODONE IR 10 mg tab(s) (ROXICODONE) 10 mg ORAL q 6 H PRN morphine 2 mg injection 2 mg INTRAVENOUS q 4 H PRN LORazepam 0.5 mg tab(s) (ATIVAN) 0.5 mg ORAL AT BEDTIME lisinopril 20 mg tab(s) (ZESTRIL) 20 mg ORAL DAILY DATA: Diagnostic tests reviewed for today's visit: CBC: Recent Labs 02/16/241826 WBC 6.20 RBC 2.94* HB 9.4* HCT 28.2* PLT 404* MCV 95.9 MCH 32.0 MPV 8.7* Coags: Recent Labs 02/16/24 182 INR 0.9 APTT 28.2 BMP: Recent Labs 02/16/24 1827 NA 134* K 4.4 CHLOR 103 CO2 27 BUN 22 CREAT 0.49* GLUC 95 CMP: Recent Labs 02/16/24 1827 NA 134* K 4.4 CHLOR 103 CO2 27 BUN 22 CREAT 0.49* GLUC 95 TPROT 6.0 CA 9.3 MG 1.8 TBILI 0.5 ALKPHOS 55 ALT 13 AST 18 ANION 4* Cardiac Enzymes: No results for input(s): "CK", "MB", "CKMB", "TROPT" in the last 24 hours. Liver Function, Amylase, Lipase: Recent Labs 02/16/241826 TPROT 6.0 ALB 2.9* ALT 13 AST 18 ALKPHOS 55 TBILI 0.5 MG/PHOS: Recent Labs 02/16/24 1827 MG 1.8 Renal Panel: Recent Labs 02/16/24 1827 CREAT 0.49* BUN 22 GLUC 95 CA 9.3 CHLOR 103 K 4.4 CO2 27 NA 134* Heme: No results for input(s): "RETICP", "ABSRETIC", "LD", "SANDRA", "FE", "TIBC","TRANSFERSAT" in the last 24 hours. No results found for: "UALBCR" Estimated Creatinine Clearance: 74.8 mL/min (A) (based on SCr of 0.49 mg/dL (L)). @[facility]@ Assessment/Plan Principal Problem: Closed displaced fracture of right femoral neck (HCC) (POA: Yes) Assessment AND Plan: Ortho on board. Plan for aspiration before proceeding with surgical intervention Osteoarthritis Hypertension continue lisinopril 20 mg p.o. daily Migraine Resolved Problems: * No resolved hospital problems. * Medication and Non-Pharmacologic VTE Prophylaxis/Anticoagulants VTE Prophylaxis: Lovenox 40mg Sub Q Daily Plan of care discussed with: Patient and RN Disposition: Extended Care Facility SIGNATURE: Judy Gong MD PATIENT NAME: May Leonard DATE: February 17, 2024 TIME: 11:50 AM PAGER/CONTACT #: Team color pager Disclaimer: Portions of this note may have been generated using EQU[employer] voice recognition software. Reasonable efforts were made to correct any dictation errors that resulted due to the programming of this software but some may still be present. Please note, the time of this note does not reflect the time I saw this patient today, but the time of this documentation.[facility]04[facility]24 Discharge summary Author Eduardo Gonzalez [facility] December 13, 2023 11:23am Note Date/Time December 13, 2023 11:2 1am [facility] Medical Records Department [address] [place] [address] Instructions for Home/Discharge Instructions 12/13/23 1120 MR#: [id number] Acct: [id number] Name: MAY LEONARD Rep #:[id number] 3 : 1940 82 From: Eduardo Gonzalez DO PCP: Dr. Rosaura Peck MD Status:AD M IN Discharge Instructions Diet Discharge Diet: No restrictions Activity Discharge Activity: Return to Normal Activity Weight Bearing Status: Full weight bearing Follow Up Care Test Results: Test results from this visit will be discussed in further detail at your follow- up appointment, if applicable. Discharge Plan Admission Admit Date/Time: 12/10/23 11:48 Primary Reason for Your Visit: ischemic colitis Attending Provider: Eduardo Gonzalez Primary Care Provider: Rosaura Peck Consulting Providers: Justus Pop Discharge Orders/Prescriptions Prescriptions: New pantoprazole 40 mg Tablet,Delayed Release (Dr/Ec) 40 mg PO DAILY Qty: 30 0RF Continued celecoxib 200 mg capsule 200 mg PO DAILY lisinopril 20 mg tablet 20 mg PO DAILY acetaminophen [Tylenol] 325 mg Tablet 650 mg PO Q4H PRN (Reason: Pain) calcium carbonate-vitamin D3 600 mg-5 mcg (200 unit) Tablet 1 tab PO DAILY lorazepam 0.5 mg Tablet 0.5 mg PO QHS PRN (Reason: Sleep) Multivitamin Women 50 Plus 8 mg iron-400 mcg-300 mcg Tablet 1 tab PO DAILY propranolol 60 mg capsule,extended release 24 hr 60 mg PO QHS Patient Comments: CALLED PCP FOR REFILL BUT CURRENTLY OUT OF MEDICATION tramadol 50 mg tablet 50 mg PO TID PRN Referrals / Follow Up: Rosaura Peck MD [Primary Care Provider] - Within 2 Weeks (You will need a repeat CBC drawn) Disposition Disposition (needs filled in before D/C Order can be placed): Home, Self Care 12/13/23 1123<Electronically signed by Eduardo Gonzalez DO>Eduardo Gonzalez DO CC: Dr. Justus Pop MD; Dr. Rosaura Peck MD ~ Signed [facility] Work Phone: 1(723) 593-844304-08-2024 Progress note Author Eduardo [facility] December 12, 2023 6:40pm Note Date/Time December 12, 2023 6:40 pm [facility] Medical Records Department [address] [place] [address] Progress Note - Hospitalist 12/12/23 1837 MR#: [id number] Acct: [id number] Name: MAY LEONARD Rep #:[id number] 3 : 1940 82 From: Eduardo Gonzalez DO PCP: Dr. Rosaura Peck MD Status:AD M IN [facility] Reason for Visit Reason for Visit: Diagnoses Hypo-osmolality and hyponatremia (12/10/23) Gastrointestinal hemorrhage, unspecified (12/10/23) Subjective Subjective Patient was seen and examined today, she underwent a colonoscopy today which showed evidence of ischemic colitis. Patient's hemoglobin this morning was 9.4. Objective Data Objective Data Vital Signs: Vital Signs Temp Pulse Resp BP Pulse Ox O2 Del Method 98.9 F 63 17 119/71 97 Room Air 12/12/23 17:55 12/12/23 17:55 12/12/23 17:55 12/12/23 17:55 12/12/23 17:55 12/12/23 18:03 Oxygen Delivery Method Room Air Weight: 49.1 kg Body Mass Index (BMI) 19.8 Intake & Output: Intake and Output for Last 24 Hours 12/10/23 12/11/23 12/12/23 23:59 23:59 23:59 Intake Total 2210 / 2210 4222.5 / 6722.5 5383.75 / 5383.75 Balance 2210 / 2210 4222.5 / 6722.5 5383.75 / 5383.75 Medical Nutrition Assessment Dietitian: Malnutrition Criteria Met Start: 12/11/23 10:36 Freq: Status: Active Protocol: Document 12/11/23 10:36 SLA (Rec: 12/11/23 10:36 SLA [id number]) Nutrition Malnutrition Evidence of Malnutrition Exists Yes Malnutrition (severe): Acute Illness/Injury Evidenced By Suboptimal Energy Intake ( Severe),Weight Loss (Severe) Clinical Problem Acute Disease or Injury Related Malnutrition Etiology related to inadequate energy intake Signs/Symptoms as evidenced by ~10% unplanned wt loss and pt eating <50% of 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 Lab / Micro Data 12/12/23 03:45 12/12/23 03:45 Labs: Laboratory Results - last 24 hr 12/12/23 03:45: WBC 8.0, RBC 2.91 L, Hgb 9.4 L, Hct 28.2 L, MCV 96.9, MCH 32.3 H, MCHC 33.3, RDW Std Deviation 49.7 H, RDW Coeff of Cas 13.9, Plt Count 257, MPV8.9, Immature Gran % (Auto) 0.400, Neut % (Auto) 77.1 H, Lymph % (Auto) 14.1 L, Carlton % (Auto) 6.5, Eos % (Auto) 1.8, Baso % (Auto) 0.1, Absolute Neuts (auto) 6.2, Absolute Lymphs (auto) 1.13, Nucleated RBC % 0, Sodium 132 L, Potassium 3.2L, Chloride 103, Carbon Dioxide 24.0, Anion Gap 5, BUN 6 L, Creatinine 0.42 L, Estim Creat Clear Calc 43.47, Est GFR (MDRD) Af Amer 184, Est GFR (MDRD) Non-Af 152, BUN/Creatinine Ratio 14.2, Glucose 129 H, Calcium 8.0 L Micro: Microbiology 12/10/23 11:00 Stool Stool Occult Blood (TERRI) - Final Occult Blood Positive Physical Exam Const alert, oriented x3, no apparent distress, average body habitus and healthy appearing General Appearance: cooperative, well kempt and well developed Orientation / Consciousness: awake, oriented to person, oriented to place and oriented to time HEENT normocephalic, head/scalp atraumatic and moist oral mucous membranes Eyes PERRL, EOMs intact bilaterally and conjunctivae normal Neck supple, no JVD, thyroid normal and no carotid bruits General: trachea midline Resp normal respiratory effort, no retractions, no use of accessory muscles and clearto auscultation bilaterally Auscultation: Negative for rales, rhonchi or wheezes Cardio regular rate, regular rhythm, S1 normal heart sound, S2 normal heart sound, no murmurs, no rub and no gallops GI normal to inspection, nondistended, normoactive bowel sounds, soft to palpation,non-tender and non-distended Extremity no clubbing, cyanosis or edema Skin no rashes or lesions noted General Skin Exam: no breakdown Neuro oriented x3, CN's II-XII intact bilaterally, moves all extremities, no focal motor deficits and no sensory deficits noted Sensorium / Orientation: awake and alert Speech: speech normal Psych affect normal Assessment & Plan Assessment/Plan (1) Acute lower gastrointestinal bleeding: PLAN: Plan 1. Lower GI bleed secondary to ischemic colitis-I will repeat the patient's H&Htomorrow #2 essential hypertension-patient remains on her outpatient medications, they will be adjusted as needed #3 essential tremor-patient is on Inderal LA #4 acute blood loss anemia not requiring blood transfusion secondary to lower GIbleeding-this blood loss is minimal, again H&H will be rechecked tomorrow Total clinical time spent by myself addressing the patient's medical issues, reviewing all of her data, and collaborating with patient's care team: 35 minutes Charges/Coding Visit Charges Inpatient E&M: 23975 Subs Hosp L2 12/12/23 1840 <Electronically signed by Eduardo Gonzalez DO> Cosigner Signature (if applicable): CC: ~ Signed [facility] Work Phone: 1(407) 538-287204-08-2024 Procedure [facility] 12-12-2023 Procedure [facility]04-07-2024 Consult note Author Demarco Veloz [facility] December 11, 2023 2:21pm Note Date/Time December 10, 2023 4:32 pm [facility] Medical Records Department [address] [place] [address] Consultation - GI 12/10/23 1631 MR#: [id number] Acct: [id number] Name: MAY LEONARD Rep #:[id number] 0 : 1940 82 From: Demarco Veloz DO PCP: Dr. Rosaura Peck MD Status:AD M IN Location: [place] [id number] HPI Consult Data Date of Consult: 12/10/23 HPI Narrative Reason for Consultation: GI bleeding HPI Narrative: MAY LEONARD, is a 82 F who presents with rectal bleeding that began yesterday. Patient states she had a small amount of bleeding yesterday. Patient states that she had another bowel movement today and noted some bright red blood in hertoilet. Patient denies any abdominal pain. Patient denies any nausea or vomiting. Patient denies any dysuria, hematuria, or frequency. Patient denies any pain with bowel movements. Patient denies any fevers or chills. IMPRESSION: 1. No evidence of active vascular bleeding at the time this examination was performed. 2. Left inguinal hernia containing small bowel loop without evidence of bowel obstruction. 3. Hepatomegaly. 4. Indeterminate small liver lesion could be due to hemangioma but difficult to characterize at this time. 5. Large left adnexal cystic lesion for which further evaluation with nonemergent MRI might be of value. 6. Diverticulosis without evidence of acute diverticulitis. [facility] Medical History Alcohol use Ambulates with cane Anxiety Arthritis Back pain Constipation Former smoker History of echocardiogram History of fracture of leg History of pain when walking History of steroid therapy Hypertension Leg cramps Migraine headache Post-menopausal Wears glasses Home Medications celecoxib 200 mg capsule 200 mg PO DAILY 10/23/21 [History Last Taken 12/09/23] lisinopril 20 mg tablet 20 mg PO DAILY 10/23/21 [History Last Taken 12/09/23] acetaminophen 325 mg tablet (Tylenol) 650 mg PO Q4H PRN Pain 09/20/22 [History Last Taken 09/29/22] calcium carbonate 600 mg-vitamin D3 5 mcg (200 unit) tablet 1 tab PO DAILY 09/20/22 [History Last Taken 12/09/23] lorazepam 0.5 mg tablet 0.5 mg PO QHS PRN Sleep 09/20/22 [History Last Taken 12/09/23] qqgupkpd-wdgy-fdnl 8 mg-folic 400 mcg-K 50 mcg-lutein 300 mcg tablet (Multivitamin Women 50 Plus) 1 tab PO DAILY 09/20/22 [History Last Taken 12/09/23] propranolol 60 mg capsule,24 hr,extended release 60 mg PO QHS tremor 12/10/23 [History Last Taken 12/08/23] tramadol 50 mg tablet 50 mg PO TID PRN 12/10/23 [History Last Taken 12/09/23] Allergy/AdvReac Type Severity Reaction Status Date / Time venom-honey bee Allergy Hives Verified 12/10/23 08:34 venom-wasp Allergy Hives Verified 12/10/23 08:34 naproxen AdvReac Other Verified 12/10/23 08:34 prednisone AdvReac Other Verified 12/10/23 08:34 Surgical History (Updated 12/10/23 @ 13:30 by Anne Vega) H/O shoulder replacement Hx of colonoscopy Hx of left cataract extraction Hx of right cataract extraction Social History Smoking Status: Former smoker ROS ROS Narrative GENERAL: denies fever, chills, night sweats, weight loss, anorexia HEENT: denies headache, sinus congestion, or drainage, dysphagia RESPIRATORY: denies cough, sputum production, shortness of breath, dyspnea on exertion CARDIAC: denies chest pain, palpitations, orthopnea, PND GASTROINTESTINAL: hematochezia GENITOURINARY: denies dysuria, urgency, frequency, heamaturia EXTREMITY: denies swelling MUSCULOSKELETAL: denies current joint pain or tenderness NEUROLOGIC: denies focal numbness, weakness, tingling HEMATOLOGIC: denies easy bruising and/or hemorrhage INTEGUMENT: denies rashes PSYCHIATRIC: denies suicidal or homicidal ideation Physical Exam Narrative GENERAL: cooperative HEENT: Atraumatic; normocephalic EYES; Anicteric, Normal Conjunctiva NECK; supple, normal thyroid, RESPIRATORY: Diminished to auscultation CARDIOVASCULAR: Regular S1 S2, GI: soft, normoactive bowel sounds, : No Renal angle tenderness; EXTREMITIES: No edema, no clubbing, MUSCULOSKELETAL: no muscle wasting NEURO: Awake; no lateralizing signs. SKIN: No Rash PSYCH; Flat affect Lab / Micro Data 12/10/23 13:25 12/10/23 09:10 Labs: Laboratory Results - last 24 hr 12/10/23 09:10: WBC 8.6, RBC 3.40 L, Hgb 11.2 L, Hct 32.6 L, MCV 95.9, MCH 32.9 H, MCHC 34.4, RDW Std Deviation 48.1 H, RDW Coeff of Cas 13.6, Plt Count 278, MPV 9.0, Immature Gran % (Auto) 0.300, Neut % (Auto) 77.7 H, Lymph % (Auto) 13.5L, Carlton % (Auto) 6.3, Eos % (Auto) 1.7, Baso % (Auto) 0.5, Absolute Neuts (auto)6.7, Absolute Lymphs (auto) 1.17, Nucleated RBC % 0, PT 13.2, INR 1.0, APTT 30.9, Sodium 128 L, Potassium 4.2, Chloride 94 L, Carbon Dioxide 26.0, Anion Gap8, BUN 18, Creatinine 0.62, Estim Creat Clear Calc 45.33, Est GFR (MDRD) Af Ypty762, Est GFR (MDRD) Non-Af 99, BUN/Creatinine Ratio 29.1 H, Glucose 106, Calcium9.0, Total Bilirubin 0.40, AST 15, ALT 16, Alkaline Phosphatase 56, Total Protein 6.3 L, Albumin 3.2, Globulin 3.1, Albumin/Globulin Ratio 1.0, Blood TypeA NEGATIVE, Antibody Screen NEGATIVE, Crossmatch See Detail 12/10/23 13:25: Hgb 11.6 L, Hct 33.8 L Micro: Microbiology 12/10/23 11:00 Stool Stool Occult Blood (TERRI) - Final Occult Blood Positive Imaging Radiology Impression Abdomen/Pelvis CTA 12/10/23 12:01 IMPRESSION: 1. No evidence of active vascular bleeding at the time this examination was performed. 2. Left inguinal hernia containing small bowel loop without evidence of bowel obstruction. 3. Hepatomegaly. 4. Indeterminate small liver lesion could be due to hemangioma but difficult to characterize at this time. 5. Large left adnexal cystic lesion for which further evaluation with nonemergent MRI might be of value. 6. Diverticulosis without evidence of acute diverticulitis. Electronically Signed: Ja San MD at 13:12 EDT , Assessment & Plan Assessment/Plan (1) Acute lower gastrointestinal bleeding: PLAN: Differential diagnosis for lower GI bleeding does include ischemic colitis, diverticular, upper GI bleed with rapid transit. She should undergo a colonoscopy and possible upper endoscopy to evaluate the etiology of her GI bleed. She also takes Celebrex which does increase her risk of GI bleeding. Recommend to hold that while she is in the hospital. Charges/Coding Visit Charges Inpatient E&M: 33866 Subs Hosp L3 12/11/23 1421 <Electronically signed by Demarco Veloz DO> Cosigner Signature (if applicable): CC: Dr. Rosaura Peck MD~ Signed [facility] Work Phone: 1(587) 310-749404-07-2024 Progress note Author Justus Pop [facility] December 11, 2023 8:53am Note Date/Time December 11, 2023 8:21 am [facility] Medical Records Department [address] [place] [address] Progress Note - Hospitalist 12/11/23815 MR#: [id number] Acct: [id number] Name: MAY LEONARD Rep #:[id number] 0 : 1940 82 From: Justus Pop MD PCP: Dr. Rosaura Peck MD Status:AD M IN Location: [place] [address]- 1 Reason for Visit Reason for Visit: Diagnoses Hypo-osmolality and hyponatremia (12/10/23) Gastrointestinal hemorrhage, unspecified (12/10/23) Objective Data Objective Data Vital Signs: Vital Signs Temp Pulse Resp BP Pulse Ox O2 Del Method 97.1 F L 55 L 16 128/81 H 95 Room Air 12/11/23 03:30 12/11/23 03:30 12/11/23 03:30 12/11/23 03:30 12/11/23 03:30 12/11/23 03:30 Oxygen Delivery Method Room Air Weight: 49.1 kg Body Mass Index (BMI) 19.8 Intake & Output: Intake and Output for Last 24 Hours 12/09/23 12/10/23 12/11/23 23:59 23:59 23:59 Intake Total 2210 / 2210 1062.5 / 1062.5 Balance 2210 / 2210 1062.5 / 1062.5 Lab / Micro Data 12/11/23 05:45 12/11/23 05:45 Labs: Laboratory Results - last 24 hr 12/10/23 09:10: WBC 8.6, RBC 3.40 L, Hgb 11.2 L, Hct 32.6 L, MCV 95.9, MCH 32.9 H, MCHC 34.4, RDW Std Deviation 48.1 H, RDW Coeff of Cas 13.6, Plt Count 278, MPV 9.0, Immature Gran % (Auto) 0.300, Neut % (Auto) 77.7 H, Lymph % (Auto) 13.5L, Carlton % (Auto) 6.3, Eos % (Auto) 1.7, Baso % (Auto) 0.5, Absolute Neuts (auto)6.7, Absolute Lymphs (auto) 1.17, Nucleated RBC % 0, PT 13.2, INR 1.0, APTT 30.9, Sodium 128 L, Potassium 4.2, Chloride 94 L, Carbon Dioxide 26.0, Anion Gap8, BUN 18, Creatinine 0.62, Estim Creat Clear Calc 45.33, Est GFR (MDRD) Af [id number], Est GFR (MDRD) Non-Af 99, BUN/Creatinine Ratio 29.1 H, Glucose 106, Calcium9.0, Total Bilirubin 0.40, AST 15, ALT 16, Alkaline Phosphatase 56, Total Protein 6.3 L, Albumin 3.2, Globulin 3.1, Albumin/Globulin Ratio 1.0, Blood TypeA NEGATIVE, Antibody Screen NEGATIVE, Crossmatch See Detail 12/10/23 13:25: Hgb 11.6 L, Hct 33.8 L 12/10/23 19:25: Hgb 11.0 L, Hct 32.2 L 12/11/23 01:50: Hgb 10.1 L, Hct 29.3 L 12/11/23 05:45: WBC 5.9, RBC 3.04 L, Hgb 9.8 L, Hct 29.7 L, MCV 97.7, MCH 32.2 H, MCHC 33.0, RDW Std Deviation 50.8 H, RDW Coeff of Cas 14.1, Plt Count 289, MPV9.4, Immature Gran % (Auto) 0.300, Neut % (Auto) 61.7, Lymph % (Auto) 25.0, Carlton% (Auto) 8.2, Eos % (Auto) 3.9, Baso % (Auto) 0.9, Absolute Neuts (auto) 3.6, Absolute Lymphs (auto) 1.47, Nucleated RBC % 0, Sodium 132 L, Potassium 4.3, Chloride 101, Carbon Dioxide 25.0, Anion Gap 6, BUN 10, Creatinine 0.52 L, EstimCreat Clear Calc 43.47, Est GFR (MDRD) Af Amer 146, Est GFR (MDRD) Non-Af 121, BUN/Creatinine Ratio 19.3, Glucose 97, Calcium 8.6, Phosphorus 2.9, Magnesium 1.9 Micro: Microbiology 12/10/23 11:00 Stool Stool Occult Blood (TERRI) - Final Occult Blood Positive Radiography Diagnostic Testing: Radiology Impression Abdomen/Pelvis CTA 12/10/23 12:01 IMPRESSION: 1. No evidence of active vascular bleeding at the time this examination was performed. 2. Left inguinal hernia containing small bowel loop without evidence of bowel obstruction. 3. Hepatomegaly. 4. Indeterminate small liver lesion could be due to hemangioma but difficult to characterize at this time. 5. Large left adnexal cystic lesion for which further evaluation with nonemergent MRI might be of value. 6. Diverticulosis without evidence of acute diverticulitis. Electronically Signed: Ja San MD at 13:12 EDT , Physical Exam Narrative GENERAL: cooperative HEENT: Atraumatic; normocephalic EYES; Anicteric, Normal Conjunctiva NECK; supple, normal thyroid, RESPIRATORY: Diminished to auscultation CARDIOVASCULAR: Regular S1 S2, GI: soft, normoactive bowel sounds, : No Renal angle tenderness; EXTREMITIES: No edema, no clubbing, MUSCULOSKELETAL: no muscle wasting NEURO: Awake; no lateralizing signs. SKIN: No Rash PSYCH; Flat affect Assessment & Plan Assessment/Plan (1) Acute lower gastrointestinal bleeding: (2) Hyponatremia: PLAN: Plan Patient is an 82-year-old lady who presented with bleeding per rectum 1. Bleeding per rectum ? CT of the abdomen and pelvis ordered to rule out diverticular bleed. Patient has been admitted to monitored bed ordered H&H every 4 hours. Patient was started on crossmatch for 2 unit PRBC. Patient was started on Protonix drip with consultation placed to GI for possible endoscopic evaluation ? 12/11/2023; patient was seen in consultation by Dr. Veloz plans for patient to undergo endoscopic evaluation both upper and lower prior to discharge. 2. Anemia ? Secondary to acute blood loss anemia as a result of a GI bleed. Significant drop in her hemoglobin from 11.6-9.8 following admission. Monitoring H&H with plans to transfuse if hemoglobin falls below 7 or patient is deemed to be symptomatic 3.. Hyponatremia ? Suspected to be secondary to hypovolemic hyponatremia patient started on saline with repeat BMP ordered in a.m. ? Sodium levels up to 132, continuous monitoring with daily BMPs ordered 4. Generalized osteoarthritis ? Patient is on celecoxib held given her rectal bleed. Patient was placed on Tylenol as needed 5. Hypertension - Blood pressure controlled, home medications continued with dose adjustment as needed 6. Left inguinal hernia containing small bowel loop -without evidence of bowel obstruction. Found on CAT scan 7.. Hepatomegaly as well as indeterminate small liver lesion Thought to be secondary to hemangioma plan is for patient to follow-up with primary care physician as outpatient for subsequent evaluation 8. Large left adnexal cystic lesion ? Patient informed of the result patient to undergo subsequent evaluation as outpatient with a nonemergent MRI. 9. Diverticulosis without evidence of acute diverticulitis. -Patient lower GI bleed may be diverticular in origin. Scheduled to undergo colonoscopy 10. DVT prophylaxis ? Bilateral SCDs only given patient presentation Time spent in the patient's overall evaluation,decision-making process, review of diagnostic data, adjustment of management, discussion with other providers, nursing nursing and ancillary staff involved in patient's care documentation, 50minutes Charges/Coding Visit Charges Inpatient E&M: 80924 Subs Hosp 12/11/23 0853 <Electronically signed by Justus Pop MD> Cosigner Signature (if applicable): CC: ~ Signed [facility] Work Phone: 1(655) 905-505104-06-2024 Discharge summary Author Mustapha Mccracken [facility] December 10, 2023 4:38pm Note Date/Time December 10, 2023 8:38 am [facility] Medical Records Department [address] [place] [id number] Emergency Department Summary 12/10/23 MR#: [id number] Acct: [id number] Name: MAY LEONARD Rep #:[id number] : 1940 82 From: Mustapha Ratliff PCP: Dr. Rosaura Peck MD Status:AD M IN Location: [facility] [id number]- [id number] HPI HPI - GI History of Present Illness Chief Complaint: GI Bleed Nausea/Vomiting/Emesis GI Symptom: Negative for Nausea or Vomiting Diarrhea/Melena/Hematochezia GI Symptom: Positive for Hematochezia; Negative for Diarrhea or Melena Onset: Yesterday Stool Quality: Positive for BRB per rectum Severity: Moderate Episodes: 2 Associated Symptoms Associated Symptoms: Negative for Dysuria, Frequency or Hematuria Narrative Narrative: Patient presents with rectal bleeding that began yesterday. Patient states she had a small amount of bleeding yesterday. Patient states that she had another bowel movement today and noted some bright red blood in her toilet. Patient denies any abdominal pain. Patient denies any nausea or vomiting. Patient denies any dysuria, hematuria, or frequency. Patient denies any pain with bowelmovements. Patient denies any fevers or chills. [facility] Medical History Alcohol use Ambulates with cane Anxiety Arthritis Back pain Constipation Former smoker History of echocardiogram History of fracture of leg History of pain when walking History of steroid therapy Hypertension Leg cramps Migraine headache Post-menopausal Wears glasses Home Medications celecoxib 200 mg capsule 200 mg PO DAILY 10/23/21 [History Last Taken 09/25/22] lisinopril 20 mg tablet 20 mg PO DAILY 10/23/21 [History Last Taken 09/30/22 06:30] acetaminophen 325 mg tablet (Tylenol) 650 mg PO Q4H PRN Pain 09/20/22 [History Last Taken 09/29/22] calcium carbonate 600 mg-vitamin D3 5 mcg (200 unit) tablet 1 tab PO DAILY 09/20/22 [History Last Taken 09/25/22] lorazepam 0.5 mg tablet 0.5 mg PO QHS PRN Sleep 09/20/22 [History Last Taken 09/30/22 06:30] oswexlwk-arbl-blxc 8 mg-folic 400 mcg-K 50 mcg-lutein 300 mcg tablet (Multivitamin Women 50 Plus) 1 tab PO DAILY 09/20/22 [History Last Taken 09/25/22] psyllium 1 packet PO DAILY 09/20/22 [History Last Taken 09/25/22] aspirin 81 mg tablet,delayed release 81 mg PO BID 28 days #56 tabs 10/01/22 [Rx Last Taken Unknown] famotidine 20 mg tablet 20 mg PO DAILY 30 days #30 tabs 10/01/22 [Rx Last Taken Unknown] oxycodone 5 mg tablet 5 - 10 mg (1 - 2 x 5 mg) PO Q4H PRN PRN Pain Score 4-10 7 days #42 tabs 10/01/22 [Rx Last Taken Unknown] sennosides 8.6 mg-docusate sodium 50 mg tablet (Stool Softener-Stimulant Laxative) 2 tab PO BID 7 days #28 tabs 10/01/22 [Rx Last Taken Unknown] apixaban 2.5 mg tablet (Eliquis) 2.5 mg PO BID #20 tabs 03/23/23 [Rx Last Taken Unknown] doxycycline hyclate 100 mg tablet 200 mg (2 x 100 mg) PO .one time dose #2 tabs 06/25/23 [Rx Last Taken Unknown] propranolol 60 mg capsule,24 hr,extended release 60 mg PO QHS 12/10/23 [History Last Taken Unknown] tramadol 50 mg tablet 50 mg PO TID PRN 12/10/23 [History Last Taken Unknown] Allergy/AdvReac Type Severity Reaction Status Date / Time venom-honey bee Allergy Hives Verified 12/10/23 08:34 venom-wasp Allergy Hives Verified 12/10/23 08:34 naproxen AdvReac Other Verified 12/10/23 08:34 prednisone AdvReac Other Verified 12/10/23 08:34 Surgical History Hx of colonoscopy Hx of left cataract extraction Hx of right cataract extraction Social History Smoking Status: Never smoker ROS ROS ED Constitutional Constitutional ED: Denies chills or fever(s) Eyes Eyes: Denies blurry vision or change in vision ENT ENT ED: Denies rhinorrhea or sore throat Cardiovascular Cardiovascular: Denies chest pain or palpitations Respiratory/Chest Respiratory/Chest: Denies cough or dyspnea Gastrointestinal Gastrointestinal: Reports as per HPI and rectal bleeding; Denies abdominal pain,nausea or vomiting Genitourinary Genitourinary ED: Denies dysuria or hematuria Musculoskeletal Musculoskeletal: Reports back pain; Denies neck pain Integumentary Denies abscess or rash Neurologic Neurologic: Denies headache(s) or weakness Allergic/Immunologic Allergic/Immunologic ED: Denies mouth swelling or urticaria EXAM Physical Exam Const Vital Signs: 12/10/23 08:34 12/10/23 08:33 12/10/23 09:26 Temperature 97.3 F L Temperature Source Temporal Pulse Rate 52 L 59 L Pulse Rate [Lying] 67 Pulse Rate [Sitting (for 1 minute prior to obtaining)] 71 Pulse Rate [Standing (for 1 minute prior to obtaining)] 63 Respiratory Rate 14 14 Blood Pressure 149/81 H 175/82 H Blood Pressure [Lying] 159/78 H Blood Pressure [Sitting (for 1 minute prior to obtaining)] 170/61 H Blood Pressure [Standing (for 1 minute prior to obtaining)] 143/88 H Blood Pressure Mean 103 113 Blood Pressure Mean [Lying] 105 Blood Pressure Mean [Sitting (for 1 minute prior to obtaining)] 97 Blood Pressure Mean [Standing (for 1 minute prior to obtaining)] 106 Pulse Ox 100 98 Oxygen Delivery Method Room Air 12/10/23 10:30 12/10/23 11:48 Temperature Temperature Source Pulse Rate 89 82 Pulse Rate [Lying] Pulse Rate [Sitting (for 1 minute prior to obtaining)] Pulse Rate [Standing (for 1 minute prior to obtaining)] Respiratory Rate 16 16 Blood Pressure 157/87 H 175/87 H Blood Pressure [Lying] Blood Pressure [Sitting (for 1 minute prior to obtaining)] Blood Pressure [Standing (for 1 minute prior to obtaining)] Blood Pressure Mean 110 116 Blood Pressure Mean [Lying] Blood Pressure Mean [Sitting (for 1 minute prior to obtaining)] Blood Pressure Mean [Standing (for 1 minute prior to obtaining)] Pulse Ox 98 97 Oxygen Delivery Method Room Air Room Air Positive well nourished and well developed General Appearance ED: well developed and NAD HEENT Reports moist mucous membranes Neck supple and no JVD Resp normal respiratory effort and clear to auscultation bilaterally Cardio regular rate and regular rhythm GI non-tender and non-distended Palpation: soft Neuro CN's II-XII intact bilaterally, moves all extremities and no sensory deficits noted Sensorium / Orientation: alert Motor Exam: strength 5/5 throughout Psych mental status grossly normal MDM MDM MDM Narrative Medical decision making narrative: Differential diagnosis includes anemia, lower gastrointestinal bleeding, hemorrhoid, diverticulitis, and coagulopathy. CBC will be obtained to assess for leukocytosis and anemia. Comprehensive metabolic profile will be obtained to assess for hepatic function, renal function, and electrolyte abnormality. PTwith INR and PTT will be obtained to assess for coagulopathy. Stool be obtainedto assess for occult bleeding. Lab Data Attestation: I reviewed the patient's lab results. Lab results narrative: CBC was reviewed. There is a slight anemia with a hemoglobin of 11.2 and hematocrit 32.6. This is actually increased from previous result. Comprehensive metabolic profile was reviewed. Sodium was slightly low at 128 and chloride was 94. The remainder is within normal limits. PT with INR and PTT were reviewed and were within normal limits. Labs: Laboratory Results - last 24 hr 12/10/23 09:10 WBC 8.6 RBC 3.40 L Hgb 11.2 L Hct 32.6 L MCV 95.9 MCH 32.9 H MCHC 34.4 RDW Std Deviation 48.1 H RDW Coeff of Cas 13.6 Plt Count 278 MPV 9.0 Immature Gran % (Auto) 0.300 Neut % (Auto) 77.7 H Lymph % (Auto) 13.5 L Carlton % (Auto) 6.3 Eos % (Auto) 1.7 Baso % (Auto) 0.5 Absolute Neuts (auto) 6.7 Absolute Lymphs (auto) 1.17 Nucleated RBC % 0 PT 13.2 INR 1.0 APTT 30.9 Sodium 128 L Potassium 4.2 Chloride 94 L Carbon Dioxide 26.0 Anion Gap 8 BUN 18 Creatinine 0.62 Estim Creat Clear Calc 45.33 Est GFR (MDRD) Af Amer 119 Est GFR (MDRD) Non-Af 99 BUN/Creatinine Ratio 29.1 H Glucose 106 Calcium 9.0 Total Bilirubin 0.40 AST 15 ALT 16 Alkaline Phosphatase 56 Total Protein 6.3 L Albumin 3.2 Globulin 3.1 Albumin/Globulin Ratio 1.0 Management Discussion w/another healthcare provider: Hospitalist (Dr. Pop) and Financial Reserve Clerk (Dr. Veloz from gastroenterology) Treatment and Re-Evaluation :: Patient was advised of her findings. Patient was advised of the need for hospitalization. Patient is agreeable with this. Case was discussed with the hospitalist. Patient is agreeable with admission. Case was also discussed withDr. Veloz from gastroenterology. He will see the patient and prep the patient for colonoscopy. Patient understands and is agreeable with the plan. All questions were answered. Discharge Plan Triage Chief Complaint: GI Bleed ED Provider: Mustapha Mccracken Dx/Rx/DC Orders Clinical Impression: Hyponatremia, Acute lower gastrointestinal bleeding Prescriptions: No Action doxycycline hyclate 100 mg tablet 200 mg PO .one time dose Qty: 2 0RF celecoxib 200 mg capsule 200 mg PO DAILY lisinopril 20 mg tablet 20 mg PO DAILY acetaminophen [Tylenol] 325 mg Tablet 650 mg PO Q4H PRN (Reason: Pain) calcium carbonate-vitamin D3 600 mg-5 mcg (200 unit) Tablet 1 tab PO DAILY lorazepam 0.5 mg Tablet 0.5 mg PO QHS PRN (Reason: Sleep) Multivitamin Women 50 Plus 8 mg iron-400 mcg-300 mcg Tablet 1 tab PO DAILY psyllium Packet 1 packet PO DAILY Rx Instructions: mix into at least 8 oz of water or juice before administering sennosides-docusate sodium [Stool Softener-Stimulant Laxat] 8.6-50 mg Tablet 2 tab PO BID 7 Days Qty: 28 0RF famotidine 20 mg Tablet 20 mg PO DAILY 30 Days Qty: 30 0RF oxycodone 5 mg Tablet 5 - 10 mg PO Q4H PRN PRN (Reason: Pain Score 4-10) 7 Days Qty: 42 0RF aspirin 81 mg Tablet,Delayed Release (Dr/Ec) 81 mg PO BID 28 Days Qty: 56 0RF propranolol 60 mg capsule,extended release 24 hr 60 mg PO QHS tramadol 50 mg tablet 50 mg PO TID PRN Eliquis 2.5 mg tablet 2.5 mg PO BID Qty: 20 0RF Primary Care Provider: Rosaura Peck Referrals: Rosaura Peck MD [Primary Care Provider] - Disposition Disposition: Acute Care Hospital [facility] What to do if you have Problems For any increased pain, shortness of breath, bleeding, nausea or vomiting, chestpain, or any unexpected problems, contact your Primary Care Provider. Call [facility] ([phone]) or report to the closest Emergency Room. Call 911 if necessary. 12/10/23 1638 <Electronically signed by Mustapha Mccracken DO> Cosigner Signature (if applicable): CC: Dr. Rosaura Peck MD ~ Signed [facility] Work Phone: [phone] History and physical note Author Justus Pop [facility] December 10, 2023 12:30pm Note Date/Time December 10, 2023 12:2 5pm [facility] Medical Records Department [address] [place] [address] H&P Exam - Hospitalist 12/10/23 1213 MR#: [id number] Acct: [id number] Name: MAY LEONARD Rep #:[id number] : 1940 82 From: Justus Pop MD PCP: Dr. Rosaura Peck MD Status:RE G ER Location: ED HPI - General General Date of Admission: 12/10/23 Date of Service: 12/10/23 Chief Complaint: Bleeding per rectum HPI Narrative MAY LEONARD, is a 82 F with past medical history significant for osteoarthritis, hypertension who presents with bleeding per rectum. Patient symptoms started the day prior to her admission. She did note a small amount ofblood in her stool. She denied any nausea no vomiting no abdominal pain. She had a recurrence of her symptoms on the morning of her presentation necessitating patient presenting to the emergency department. She denied takingany dudw-xek-kffqqgs pain medications such as ibuprofen. Currently not on any anticoagulants. Patient was found to be hemodynamically stable. She was started on crossmatch started on Protonix and admitted to a monitored bed with consultation placed to GI from the ED [facility] Medical History Alcohol use Ambulates with cane Anxiety Arthritis Back pain Constipation Former smoker History of echocardiogram History of fracture of leg History of pain when walking History of steroid therapy Hypertension Leg cramps Migraine headache Post-menopausal Wears glasses Home Medications celecoxib 200 mg capsule 200 mg PO DAILY 10/23/21 [History Last Taken 12/09/23] lisinopril 20 mg tablet 20 mg PO DAILY 10/23/21 [History Last Taken 12/09/23] acetaminophen 325 mg tablet (Tylenol) 650 mg PO Q4H PRN Pain 09/20/22 [History Last Taken 09/29/22] calcium carbonate 600 mg-vitamin D3 5 mcg (200 unit) tablet 1 tab PO DAILY 09/20/22 [History Last Taken 12/09/23] lorazepam 0.5 mg tablet 0.5 mg PO QHS PRN Sleep 09/20/22 [History Last Taken 12/09/23] digqlyfb-ahcy-isdn 8 mg-folic 400 mcg-K 50 mcg-lutein 300 mcg tablet (Multivitamin Women 50 Plus) 1 tab PO DAILY 09/20/22 [History Last Taken 12/09/23] propranolol 60 mg capsule,24 hr,extended release 60 mg PO QHS 12/10/23 [History Last Taken Unknown] tramadol 50 mg tablet 50 mg PO TID PRN 12/10/23 [History Last Taken 12/09/23] Allergy/AdvReac Type Severity Reaction Status Date / Time venom-honey bee Allergy Hives Verified 12/10/23 08:34 venom-wasp Allergy Hives Verified 12/10/23 08:34 naproxen AdvReac Other Verified 12/10/23 08:34 prednisone AdvReac Other Verified 12/10/23 08:34 Surgical History Hx of colonoscopy Hx of left cataract extraction Hx of right cataract extraction Social History Smoking Status: Never smoker ROS ROS Narrative GENERAL: denies fever, chills, night sweats, weight loss, anorexia HEENT: denies headache, sinus congestion, or drainage, dysphagia RESPIRATORY: denies cough, sputum production, shortness of breath, dyspnea on exertion CARDIAC: denies chest pain, palpitations, orthopnea, PND GASTROINTESTINAL: hematochezia GENITOURINARY: denies dysuria, urgency, frequency, heamaturia EXTREMITY: denies swelling MUSCULOSKELETAL: denies current joint pain or tenderness NEUROLOGIC: denies focal numbness, weakness, tingling HEMATOLOGIC: denies easy bruising and/or hemorrhage INTEGUMENT: denies rashes PSYCHIATRIC: denies suicidal or homicidal ideation Vital Signs Vital Signs Vital Signs: 12/10/23 08:34 12/10/23 08:33 12/10/23 09:26 Temperature 97.3 F L Temperature Source Temporal Pulse Rate 52 L 59 L Pulse Rate [Lying] 67 Pulse Rate [Sitting (for 1 minute prior to obtaining)] 71 Pulse Rate [Standing (for 1 minute prior to obtaining)] 63 Respiratory Rate 14 14 Blood Pressure 149/81 H 175/82 H Blood Pressure [Lying] 159/78 H Blood Pressure [Sitting (for 1 minute prior to obtaining)] 170/61 H Blood Pressure [Standing (for 1 minute prior to obtaining)] 143/88 H Blood Pressure Mean 103 113 Blood Pressure Mean [Lying] 105 Blood Pressure Mean [Sitting (for 1 minute prior to obtaining)] 97 Blood Pressure Mean [Standing (for 1 minute prior to obtaining)] 106 Pulse Ox 100 98 Oxygen Delivery Method Room Air 12/10/23 10:30 12/10/23 11:48 Temperature Temperature Source Pulse Rate 89 82 Pulse Rate [Lying] Pulse Rate [Sitting (for 1 minute prior to obtaining)] Pulse Rate [Standing (for 1 minute prior to obtaining)] Respiratory Rate 16 16 Blood Pressure 157/87 H 175/87 H Blood Pressure [Lying] Blood Pressure [Sitting (for 1 minute prior to obtaining)] Blood Pressure [Standing (for 1 minute prior to obtaining)] Blood Pressure Mean 110 116 Blood Pressure Mean [Lying] Blood Pressure Mean [Sitting (for 1 minute prior to obtaining)] Blood Pressure Mean [Standing (for 1 minute prior to obtaining)] Pulse Ox 98 97 Oxygen Delivery Method Room Air Room Air Weight Weight: 51.2 kg Body Mass Index (BMI) 19.3 Physical Exam Narrative GENERAL: cooperative HEENT: Atraumatic; normocephalic EYES; Anicteric, Normal Conjunctiva NECK; supple, normal thyroid, RESPIRATORY: Diminished to auscultation CARDIOVASCULAR: Regular S1 S2, GI: soft, normoactive bowel sounds, : No Renal angle tenderness; EXTREMITIES: No edema, no clubbing, MUSCULOSKELETAL: no muscle wasting NEURO: Awake; no lateralizing signs. SKIN: No Rash PSYCH; Flat affect Results Lab / Micro Data 12/10/23 09:10 12/10/23 09:10 Labs: Laboratory Results - last 24 hr 12/10/23 09:10: WBC 8.6, RBC 3.40 L, Hgb 11.2 L, Hct 32.6 L, MCV 95.9, MCH 32.9 H, MCHC 34.4, RDW Std Deviation 48.1 H, RDW Coeff of Cas 13.6, Plt Count 278, MPV 9.0, Immature Gran % (Auto) 0.300, Neut % (Auto) 77.7 H, Lymph % (Auto) 13.5L, Carlton % (Auto) 6.3, Eos % (Auto) 1.7, Baso % (Auto) 0.5, Absolute Neuts (auto)6.7, Absolute Lymphs (auto) 1.17, Nucleated RBC % 0, PT 13.2, INR 1.0, APTT 30.9, Sodium 128 L, Potassium 4.2, Chloride 94 L, Carbon Dioxide 26.0, Anion Gap8, BUN 18, Creatinine 0.62, Estim Creat Clear Calc 45.33, Est GFR (MDRD) Af [id number], Est GFR (MDRD) Non-Af 99, BUN/Creatinine Ratio 29.1 H, Glucose 106, Calcium9.0, Total Bilirubin 0.40, AST 15, ALT 16, Alkaline Phosphatase 56, Total Protein 6.3 L, Albumin 3.2, Globulin 3.1, Albumin/Globulin Ratio 1.0 Micro: Microbiology 12/10/23 11:00 Stool Stool Occult Blood (TERRI) - Final Occult Blood Positive Assessment & Plan Assessment/Plan (1) Acute lower gastrointestinal bleeding: (2) Hyponatremia: PLAN: Plan Patient is an 82-year-old lady who presented with bleeding per rectum 1. Bleeding per rectum ? CT of the abdomen and pelvis ordered to rule out diverticular bleed. Patient has been admitted to monitored bed ordered H&H every 4 hours. Patient was started on crossmatch for 2 unit PRBC. Patient was started on Protonix drip with consultation placed to GI for possible endoscopic evaluation 2. Hyponatremia ? Suspected to be secondary to hypovolemic hyponatremia patient started on saline with repeat BMP ordered in a.m. 3. Generalized osteoarthritis ? Patient is on celecoxib held given her rectal bleed. Patient was placed on Tylenol as needed 4. Hypertension - Blood pressure controlled, home medications continued with dose adjustment as needed 5. DVT prophylaxis ? Bilateral SCDs only given patient presentation Time spent in the patient's overall evaluation,decision-making process, review of diagnostic data, adjustment of management, discussion with other providers, nursing nursing and ancillary staff involved in patient's care documentation, 55minutes Advance planning; did discuss with the patient and family regarding advanced directives as well as CODE STATUS. Did explain the various scenarios involved (FULL CODE, DNR CCA, DNR CCA with no intubation, and DNR CC and what each meant) patient elected remain full code with CPR and intubation if needed. Order was placed. Time spent on discussion 18 minutes. Charges/Coding Visit Charges Inpatient E&M: 01846 Init Hosp L2 Procedures Hospitalists Procedures: 67694 Advncd Care Plan 30 Min 12/10/23 1230 <Electronically signed by Justus Pop MD> Cosigner Signature (if applicable): CC: Dr. Justus Pop MD; Dr. Rosaura Peck MD~ Signed [facility] Work Phone: [phone]) 255-905006-24-2023 Evaluation + Plan note Future Scheduled Tests Radiology* CT Head or Brain w/o Contrast 02/26/[address] [facility] 04-06-2023 History of Present illness Narrative* Mindi Ward APRN.STATISTICAL METHODS PROFESSOR - 12/09/2022 1:00 PM EDT PACC Consult SERVICE DATE: 12/09/2022 SERVICE TIME: 1:00 PM PRIMARY CARE PHYSICIAN: No primary care provider on file. REASON FOR VISIT: May Leonard is a 81 year old female who is scheduled for REVERSE TSA at the request of Dr. MCGRAW for consultation. My final recommendation will be communicated back to the requesting physician by way of shared medical record or letter. The patient has the following: ACTIVE PROBLEM LIST Special Screening for Malignant Neoplasms, Colon Benign Neoplasm of Colon Sebaceous Cyst Subjective CHIEF COMPLAINT: SHOULDER PAIN 81yo female, exsmoker who underwent R TSA 09/30/22 in [place]. She fell 11/26/22 after becoming dizzyand falling backwards. Lives alone, wearing a sling [...] Substance Use Topics Alcohol use: Yes Comment: bourbon 1 drink daily Drug use: Never Prior [...] 146/67 Pulse 65 Resp 20 Ht 5' 4" (1.63m) Wt 118 lb (53.5kg) SpO2 97% [...] up after meals, bathing). She has a [employer] consultant coming in this week though to help [...] any testing. She is more aware of herposition changes now however. ASA last dose 1 [...] DATE: December 09, 2022 TIME: 1:00 PM * Mindi Ward APRN.CNP - 12/09/2022 12:25 PM EDTSummary: DOS MEDS PATIENT MEDICATION INSTRUCTIONS Please read [...] you the week day prior to your surgicalprocedure so we can update your list and provide you with updated instructions for the morning of your procedure. * Hailey Araujo APRN.CNP - 12/09/2022 11:00 AM EDT Revision Rev R TSA 12/15 Escvidya 81yo female, exsmoker who underwent R TSA 09/30/22 in [place]. She fell 11/26/22 after becoming dizzyand falling backwards. Lives alone, wearing a sling currently. R handed. PMH: HTN, migraines, spinal stenosis, anxiety. Taking ASA and will verify stop date with surgeon. [facility] Instructions* Patient Instructions* Mindi Ward APRN.CNP - 12/09/2022 12:26 PM [...] you the week day prior to your surgicalprocedure so we can update your list and provide you with updated instructions for the morning of your procedure. [facility] Gomez [facility] October 01, 2022 12:06pm Note Date/Time October 01, 2022 1 2:06pm [facility] Medical Records Department [address] [place] [address] Discharge Summary 10/01/22 1204 MR#: [id number] Acct: [id number] Name: MAY LEONARD Rep #:[id number] : 1940 81 From: Tong huerta DO PCP: Dr. Rosaura Peck MD Status:AD M PAMELA Location: [place] [id number] Providers Date of Admission: 09/30/22 Primary Care Physician: Dr. Rosaura Peck MD Reason For Visit: RT REVERSE TOTAL SHOULDER/ ADD LABS Diagnosis Discharge Diagnosis (1) Post-op pain: Status: Acute Code(s): G89.18 - Other acute postprocedural pain Plan: POD#1 s/p right reverse shoulder arthroplasty -Patient doing well this morning. Pain is controlled. - Pain control - OT - DVT PPX -Multimodal with SCDs, early mobilization, aspirin 81 mg twice daily, LUCIA johnson - Case management - D/C planning. Patient would benefit from home health care occupational therapy as her current plan is to stay with her daughter until independence is improved and transition back to home independent living. Once therapy goals are met, we will plan on discharge home later today. Medications at Discharge Home Medications celecoxib 200 mg capsule 200 mg PO DAILY 10/23/21 lisinopril 20 mg tablet 20 mg PO DAILY 10/23/21 acetaminophen 325 mg tablet (Tylenol) 650 mg PO Q4H PRN Pain 09/20/22 calcium carbonate 600 mg-vitamin D3 5 mcg (200 unit) tablet 1 tab PO DAILY 09/20/22 lorazepam 0.5 mg tablet 0.5 mg PO QHS PRN Sleep 09/20/22 multivit with zxtcjwdu-uock-XI-lutein 8 mg iron-400 mcg-300 mcg tablet (Multivitamin Women 50 Plus) 1 tab PO DAILY 09/20/22 psyllium 1 packet PO DAILY 09/20/22 aspirin 81 mg tablet,delayed release 81 mg PO BID 28 days #56 tabs 10/01/22 famotidine 20 mg tablet 20 mg PO DAILY 30 days #30 tabs 10/01/22 oxycodone 5 mg tablet 5 - 10 mg PO Q4H PRN PRN Pain Score 4-10 7 days #42 tabs 10/01/22 sennosides 8.6 mg-docusate sodium 50 mg tablet (Stool Softener-Stimulant Laxative) 2 tab PO BID 7 days #28 tabs 10/01/22 Hospital Course Summary of Care Provided Minutes Spent on Discharge: 15 Hospital Course: Patient underwent uncomplicated right reverse shoulder arthroplasty 09/30/22. She tolerated the procedure well without apparent complication. She is placed in observation overnight for the early convalescence and rehab. She did well inthe immediate postoperative course. She was seen by both physical and occupational therapies. Home health care PT/OT was arranged. No medical or surgical complications were encountered throughout her stay. She was able to besafely discharged home with home health care on postoperative day #1. Physical Exam Narrative General - A&Ox3, NAD. VSS/AF. Right upper Extremity - SILT & 5/5 in radial, ulnar, musculocutaneous, axillary, and median nerve distributions. Radial, ulnar pulses 2+. Compartmentssoft and compressible. BCR in finger tips. Incisional dressing C/D/I. UltraSling in place. Calves are soft and nontender bilaterally Weight / BMI Weight Weight: 118 lb Body Mass Index (BMI) 20.2 ABG / Lab / Microbiology Data Result Diagrams: 10/01/22 07:10 10/01/22 07:10 Laboratory: Laboratory Results - last 24 hr 10/01/22 07:10: WBC 10.5, RBC 3.04 L, Hgb 10.1 L, Hct 29.8 L, MCV 98.0, MCH 33.2H, MCHC 33.9, RDW Std Deviation 51.0 H, RDW Coeff of Cas 14.1, Plt Count 274, MPV 9.5 10/01/22 07:10: Sodium 134 L, Potassium 4.1, Chloride 102, Carbon Dioxide 27.0, Anion Gap 5, BUN 11, Creatinine 0.51 L, Estim Creat Clear Calc 37.74, Est GFR (MDRD) Af Amer 149, Est GFR (MDRD) Non-Af 123, BUN/Creatinine Ratio 21.6 H, Glucose 109 H, Calcium 8.3 L Microbiology: Microbiology 09/07/22 11:55 Nasal Secretion Nasal Screen MRSA/MSSA - Final Radiography Diagnostic Testing: Radiology Impression Shoulder X-Ray 09/30/22 13:14 IMPRESSION: Status post right reverse shoulder replacement. There is good alignment. Postoperative soft tissue changes. Electronically Signed: Rashel Vieira MD at 14:18 EST , Meaningful Use Info Meaningful Use Diagnoses (Choose all that apply): None applicable Discharge Plan Admission Admit Date/Time: 09/30/22 13:15 Primary Reason for Your Visit: Right shoulder replacement Attending Provider: Tong Gomez Primary Care Provider: Rosaura Peck Instructions Additional Instructions / Restrictions: Follow preprinted instructions from your surgeons office. Discharge Orders/Prescriptions Prescriptions: New sennosides-docusate sodium [Stool Softener-Stimulant Laxat] 8.6-50 mg Tablet 2 tab PO BID 7 Days Qty: 28 0RF famotidine 20 mg Tablet 20 mg PO DAILY 30 Days Qty: 30 0RF oxycodone 5 mg Tablet 5 - 10 mg PO Q4H PRN PRN (Reason: Pain Score 4-10) 7 Days Qty: 42 0RF aspirin 81 mg Tablet,Delayed Release (Dr/Ec) 81 mg PO BID 28 Days Qty: 56 0RF Continued celecoxib 200 mg capsule 200 mg PO DAILY lisinopril 20 mg tablet 20 mg PO DAILY acetaminophen [Tylenol] 325 mg Tablet 650 mg PO Q4H PRN (Reason: Pain) calcium carbonate-vitamin D3 600 mg-5 mcg (200 unit) Tablet 1 tab PO DAILY lorazepam 0.5 mg Tablet 0.5 mg PO QHS PRN (Reason: Sleep) Multivitamin Women 50 Plus 8 mg iron-400 mcg-300 mcg Tablet 1 tab PO DAILY psyllium Packet 1 packet PO DAILY Rx Instructions: mix into at least 8 oz of water or juice before administering Referrals / Follow Up: Rosaura Peck MD [Primary Care Provider] - Tong Gomez DO [Med Staff - Active Staff] - Disposition Disposition (needs filled in before D/C Order can be placed): Home Health Service 10/01/22 1206 <Electronically signed by Tong Gomez DO> Cosigner Signature (if applicable): CC: Dr. Rosaura Peck MD; Dr. Tong Gomez DO~ Signed [facility] Work Phone: 1(652) 473-663101-27-[address] Gomez [facility] October 01, 2022 12:05pm Note Date/Time October 01, 2022 1 2:05pm [facility] Medical Records Department [address] [place] [address] Instructions for Home/Discharge Instructions 10/01/22 1204 MR#: [id number] Acct: [id number] Name: MAY LEONARD Rep #:[id number] : 1940 81 From: Tong huerta DO PCP: Dr. Rosaura Peck MD Status:DAIANA SANTIAGO Discharge Instructions Follow Up Care Test Results: Test results from this visit will be discussed in further detail at your follow- up appointment, if applicable. Discharge Plan Admission Admit Date/Time: 09/30/22 13:15 Primary Reason for Your Visit: Right shoulder replacement Attending Provider: Tong Gomez Primary Care Provider: Rosaura Peck Instructions Additional Instructions / Restrictions: Follow preprinted instructions from your surgeons office. Discharge Orders/Prescriptions Prescriptions: New sennosides-docusate sodium [Stool Softener-Stimulant Laxat] 8.6-50 mg Tablet 2 tab PO BID 7 Days Qty: 28 0RF famotidine 20 mg Tablet 20 mg PO DAILY 30 Days Qty: 30 0RF oxycodone 5 mg Tablet 5 - 10 mg PO Q4H PRN PRN (Reason: Pain Score 4-10) 7 Days Qty: 42 0RF aspirin 81 mg Tablet,Delayed Release (Dr/Ec) 81 mg PO BID 28 Days Qty: 56 0RF Continued celecoxib 200 mg capsule 200 mg PO DAILY lisinopril 20 mg tablet 20 mg PO DAILY acetaminophen [Tylenol] 325 mg Tablet 650 mg PO Q4H PRN (Reason: Pain) calcium carbonate-vitamin D3 600 mg-5 mcg (200 unit) Tablet 1 tab PO DAILY lorazepam 0.5 mg Tablet 0.5 mg PO QHS PRN (Reason: Sleep) Multivitamin Women 50 Plus 8 mg iron-400 mcg-300 mcg Tablet 1 tab PO DAILY psyllium Packet 1 packet PO DAILY Rx Instructions: mix into at least 8 oz of water or juice before administering Referrals / Follow Up: Rosaura Peck MD [Primary Care Provider] - Tong Gomez DO [Med Staff - Active Staff] - Disposition Disposition (needs filled in before D/C Order can be placed): Home Health Service 10/01/22 1205<Electronically signed by Tong Gomez DO>Tong Gomez DO CC: Dr. Rosaura Peck MD ~ Signed [facility] Work Phone: 1(524) 670-727201-27-[address] Gomez [facility] October 01, 2022 7:32am Note Date/Time October 01, 2022 7 :32am [facility] Medical Records Department [address] [place] [address] Progress Note - Orthopedic 10/01/22729 MR#: [id number] Acct: [id number] Name: MAY LEONARD Rep #:[id number] : 1940 81 From: Tong huerta DO PCP: Dr. Rosaura Peck MD Status:AD M [facility] Location: [place] [address] Subjective Subjective Patient seen and examined. She reports she is doing well. She states nerve block is worn off. She states her pain is controlled with current pain regimen. Denies fevers, chills, nausea vomiting, chest pain or shortness of breath. Objective Data Objective Data Vital Signs: Vital Signs Temp Pulse Resp BP Pulse Ox O2 Del Method O2 Flow Rate 98.9 F 62 18 162/83 H 96 Room Air 4 10/01/22 02:59 10/01/22 03:04 10/01/22 02:59 10/01/22 02:59 10/01/22 02:59 10/01/22 02:59 09/30/22 14:41 Oxygen Flow Rate (L/min) 4 Oxygen Delivery Method Room Air Weight: 118 lb Body Mass Index (BMI) 20.2 Intake & Output: Intake and Output for Last 24 Hours 09/29/22 09/30/22 10/01/22 23:59 23:59 23:59 Intake Total 4483.75 / 4483.75 181.5 / 181.5 Balance 4483.75 / 4483.75 181.5 / 181.5 Lab / Micro Data Result Diagrams: 09/07/22 11:55 09/07/22 11:55 Labs: Laboratory Results - last 24 hr 09/30/22 09:18: POC Glucose 86 Micro: Microbiology 09/07/22 11:55 Nasal Secretion Nasal Screen MRSA/MSSA - Final Radiography Diagnostic Testing: Radiology Impression Shoulder X-Ray 09/30/22 13:14 IMPRESSION: Status post right reverse shoulder replacement. There is good alignment. Postoperative soft tissue changes. Electronically Signed: Rashel Vieira MD at 14:18 EST , Physical Exam Narrative General - A&Ox3, NAD. VSS/AF. Right upper Extremity - SILT & 5/5 in radial, ulnar, musculocutaneous, axillary, and median nerve distributions. Radial, ulnar pulses 2+. Compartmentssoft and compressible. BCR in finger tips. Incisional dressing C/D/I. UltraSling in place. Calves are soft and nontender bilaterally Assessment & Plan Assessment/Plan (1) Post-op pain: PLAN: POD#1 s/p right reverse shoulder arthroplasty -Patient doing well this morning. Pain is controlled. - Pain control - OT - DVT PPX -Multimodal with SCDs, early mobilization, aspirin 81 mg twice daily, LUCIA johnson - Case management - D/C planning. Patient would benefit from home health care occupational therapy as her current plan is to stay with her daughter until independence is improved and transition back to home independent living. Once therapy goals are met, we will plan on discharge home later today. 10/01/22 0732 <Electronically signed by Tong Gomez DO> Cosigner Signature (if applicable): CC: ~ Signed [facility] Work Phone: [phone]) 725-387501-26-2023 Procedure [facility] Consult note Author Aj Avalos [facility] December 13, 2023 1:52pm Note Date/Time December 13, 2023 1:52 pm [facility] Medical Records Department [address] [place] [address] Counseling Note - Pharmacy 12/13/23 1352 MR#: [id number] Acct: [id number] Name: MAY LEONARD Rep #:[id number] : 1940 82 From: Aj Avalos PCP: Dr. Rosaura Peck MD Status:AD M IN Y Location: [place] [address] Pharmacy [facility] has performed discharge medication reconciliation and counseling for this patient. The patient's discharge medication list was reviewed for discrepancies and discrepancies were resolved. The patient was counseled on the following discharge medications and changes in medications for homegoing were reviewed. The Reason for Use, instructions for use, and potential side effects were reviewed for all new medications. The patient's questions regarding all of their medications were answered. 1. Pantoprazole 40 mg PO daily The patient was able to verbally demonstrate an understanding of their dischargemedications. Medications at Discharge Home Medications celecoxib 200 mg capsule 200 mg PO DAILY pain 10/23/21 lisinopril 20 mg tablet 20 mg PO DAILY blood pressure 10/23/21 acetaminophen 325 mg tablet (Tylenol) 650 mg PO Q4H PRN Pain 09/20/22 calcium carbonate 600 mg-vitamin D3 5 mcg (200 unit) tablet 1 tab PO DAILY supplement 09/20/22 lorazepam 0.5 mg tablet 0.5 mg PO QHS PRN Sleep 09/20/22 zsqjjtad-bvik-qdyr 8 mg-folic 400 mcg-K 50 mcg-lutein 300 mcg tablet (Multivitamin Women 50 Plus) 1 tab PO DAILY vitamin 09/20/22 propranolol 60 mg capsule,24 hr,extended release 60 mg PO QHS tremor 12/10/23 tramadol 50 mg tablet 50 mg PO TID PRN pain 12/10/23 pantoprazole 40 mg tablet,delayed release 40 mg PO DAILY #30 tabs 12/13/23 12/13/23 1352 <Electronically signed by Aj crooks> Date _ Aj Avalos Cosigner Signature (if applicable): Date CC: ~ Signed [facility] Work Phone: Evaluation noteNo assessment information available [facility] Work Phone: Evaluation note* Diagnosis Onset Date Resolution Status Post-op pain acute [facility] Work Phone: Evaluation note* Diagnosis Pre-op testing- Primary Preoperative examination, unspecified Pain in other specified joint Postprocedural hypoinsulinemia Postsurgical hypoinsulinemia Other mechanical complication of other internal joint prosthesis, initial encounter ([facility]) [facility] Diagnosis Onset Date Resolution Status Tick bite of axillary region acute [facility] Work Phone: Evaluation note* Diagnosis Onset Date Resolution Status Acute lower gastrointestinal bleeding acute Hyponatremia acute [facility] Work Phone: Evaluation note* Diagnosis Pelvic mass in female- Primary [facility] Diagnosis Pelvic mass in female- Primary [facility] Author Justus Pop [facility] December 10, 2023 12:30pm Note Date/Time December 10, 2023 12:2 5pm [facility] Medical Records Department [address] [place] [id number] H&P Exam - Hospitalist 12/10/23 1213 MR#: [id number] Acct: [id number] Name: MAY LEONARD Rep #:[id number] : 1940 82 From: Justus Pop MD PCP: Dr. Rosaura Peck MD Status:RE G ER Location: ED HPI - General General Date of Admission: 12/10/23 Date of Service: 12/10/23 Chief Complaint: Bleeding per rectum HPI Narrative MAY LEONARD, is a 82 F with past medical history significant for osteoarthritis, hypertension who presents with bleeding per rectum. Patient symptoms started the day prior to her admission. She did note a small amount ofblood in her stool. She denied any nausea no vomiting no abdominal pain. She had a recurrence of her symptoms on the morning of her presentation necessitating patient presenting to the emergency department. She denied takingany ayec-jth-mknmnur pain medications such as ibuprofen. Currently not on any anticoagulants. Patient was found to be hemodynamically stable. She was started on crossmatch started on Protonix and admitted to a monitored bed with consultation placed to GI from the ED [facility] Medical History Alcohol use Ambulates with cane Anxiety Arthritis Back pain Constipation Former smoker History of echocardiogram History of fracture of leg History of pain when walking History of steroid therapy Hypertension Leg cramps Migraine headache Post-menopausal Wears glasses Home Medications celecoxib 200 mg capsule 200 mg PO DAILY 10/23/21 [History Last Taken 12/09/23] lisinopril 20 mg tablet 20 mg PO DAILY 10/23/21 [History Last Taken 12/09/23] acetaminophen 325 mg tablet (Tylenol) 650 mg PO Q4H PRN Pain 09/20/22 [History Last Taken 09/29/22] calcium carbonate 600 mg-vitamin D3 5 mcg (200 unit) tablet 1 tab PO DAILY 09/20/22 [History Last Taken 12/09/23] lorazepam 0.5 mg tablet 0.5 mg PO QHS PRN Sleep 09/20/22 [History Last Taken 12/09/23] gdjuuerx-egxu-negu 8 mg-folic 400 mcg-K 50 mcg-lutein 300 mcg tablet (Multivitamin Women 50 Plus) 1 tab PO DAILY 09/20/22 [History Last Taken 12/09/23] propranolol 60 mg capsule,24 hr,extended release 60 mg PO QHS 12/10/23 [History Last Taken Unknown] tramadol 50 mg tablet 50 mg PO TID PRN 12/10/23 [History Last Taken 12/09/23] Allergy/AdvReac Type Severity Reaction Status Date / Time venom-honey bee Allergy Hives Verified 12/10/23 08:34 venom-wasp Allergy Hives Verified 12/10/23 08:34 naproxen AdvReac Other Verified 12/10/23 08:34 prednisone AdvReac Other Verified 12/10/23 08:34 Surgical History Hx of colonoscopy Hx of left cataract extraction Hx of right cataract extraction Social History Smoking Status: Never smoker ROS ROS Narrative GENERAL: denies fever, chills, night sweats, weight loss, anorexia HEENT: denies headache, sinus congestion, or drainage, dysphagia RESPIRATORY: denies cough, sputum production, shortness of breath, dyspnea on exertion CARDIAC: denies chest pain, palpitations, orthopnea, PND GASTROINTESTINAL: hematochezia GENITOURINARY: denies dysuria, urgency, frequency, heamaturia EXTREMITY: denies swelling MUSCULOSKELETAL: denies current joint pain or tenderness NEUROLOGIC: denies focal numbness, weakness, tingling HEMATOLOGIC: denies easy bruising and/or hemorrhage INTEGUMENT: denies rashes PSYCHIATRIC: denies suicidal or homicidal ideation Vital Signs Vital Signs Vital Signs: 12/10/23 08:34 12/10/23 08:33 12/10/23 09:26 Temperature 97.3 F L Temperature Source Temporal Pulse Rate 52 L 59 L Pulse Rate [Lying] 67 Pulse Rate [Sitting (for 1 minute prior to obtaining)] 71 Pulse Rate [Standing (for 1 minute prior to obtaining)] 63 Respiratory Rate 14 14 Blood Pressure 149/81 H 175/82 H Blood Pressure [Lying] 159/78 H Blood Pressure [Sitting (for 1 minute prior to obtaining)] 170/61 H Blood Pressure [Standing (for 1 minute prior to obtaining)] 143/88 H Blood Pressure Mean 103 113 Blood Pressure Mean [Lying] 105 Blood Pressure Mean [Sitting (for 1 minute prior to obtaining)] 97 Blood Pressure Mean [Standing (for 1 minute prior to obtaining)] 106 Pulse Ox 100 98 Oxygen Delivery Method Room Air 12/10/23 10:30 12/10/23 11:48 Temperature Temperature Source Pulse Rate 89 82 Pulse Rate [Lying] Pulse Rate [Sitting (for 1 minute prior to obtaining)] Pulse Rate [Standing (for 1 minute prior to obtaining)] Respiratory Rate 16 16 Blood Pressure 157/87 H 175/87 H Blood Pressure [Lying] Blood Pressure [Sitting (for 1 minute prior to obtaining)] Blood Pressure [Standing (for 1 minute prior to obtaining)] Blood Pressure Mean 110 116 Blood Pressure Mean [Lying] Blood Pressure Mean [Sitting (for 1 minute prior to obtaining)] Blood Pressure Mean [Standing (for 1 minute prior to obtaining)] Pulse Ox 98 97 Oxygen Delivery Method Room Air Room Air Weight Weight: 51.2 kg Body Mass Index (BMI) 19.3 Physical Exam Narrative GENERAL: cooperative HEENT: Atraumatic; normocephalic EYES; Anicteric, Normal Conjunctiva NECK; supple, normal thyroid, RESPIRATORY: Diminished to auscultation CARDIOVASCULAR: Regular S1 S2, GI: soft, normoactive bowel sounds, : No Renal angle tenderness; EXTREMITIES: No edema, no clubbing, MUSCULOSKELETAL: no muscle wasting NEURO: Awake; no lateralizing signs. SKIN: No Rash PSYCH; Flat affect Results Lab / Micro Data 12/10/23 09:10 12/10/23 09:10 Labs: Laboratory Results - last 24 hr 12/10/23 09:10: WBC 8.6, RBC 3.40 L, Hgb 11.2 L, Hct 32.6 L, MCV 95.9, MCH 32.9 H, MCHC 34.4, RDW Std Deviation 48.1 H, RDW Coeff of Cas 13.6, Plt Count 278, MPV 9.0, Immature Gran % (Auto) 0.300, Neut % (Auto) 77.7 H, Lymph % (Auto) 13.5L, Carlton % (Auto) 6.3, Eos % (Auto) 1.7, Baso % (Auto) 0.5, Absolute Neuts (auto)6.7, Absolute Lymphs (auto) 1.17, Nucleated RBC % 0, PT 13.2, INR 1.0, APTT 30.9, Sodium 128 L, Potassium 4.2, Chloride 94 L, Carbon Dioxide 26.0, Anion Gap8, BUN 18, Creatinine 0.62, Estim Creat Clear Calc 45.33, Est GFR (MDRD) Af [id number], Est GFR (MDRD) Non-Af 99, BUN/Creatinine Ratio 29.1 H, Glucose 106, Calcium9.0, Total Bilirubin 0.40, AST 15, ALT 16, Alkaline Phosphatase 56, Total Protein 6.3 L, Albumin 3.2, Globulin 3.1, Albumin/Globulin Ratio 1.0 Micro: Microbiology 12/10/23 11:00 Stool Stool Occult Blood (TERRI) - Final Occult Blood Positive Assessment & Plan Assessment/Plan (1) Acute lower gastrointestinal bleeding: (2) Hyponatremia: PLAN: Plan Patient is an 82-year-old lady who presented with bleeding per rectum 1. Bleeding per rectum ? CT of the abdomen and pelvis ordered to rule out diverticular bleed. Patient has been admitted to monitored bed ordered H&H every 4 hours. Patient was started on crossmatch for 2 unit PRBC. Patient was started on Protonix drip with consultation placed to GI for possible endoscopic evaluation 2. Hyponatremia ? Suspected to be secondary to hypovolemic hyponatremia patient started on saline with repeat BMP ordered in a.m. 3. Generalized osteoarthritis ? Patient is on celecoxib held given her rectal bleed. Patient was placed on Tylenol as needed 4. Hypertension - Blood pressure controlled, home medications continued with dose adjustment as needed 5. DVT prophylaxis ? Bilateral SCDs only given patient presentation Time spent in the patient's overall evaluation,decision-making process, review of diagnostic data, adjustment of management, discussion with other providers, nursing nursing and ancillary staff involved in patient's care documentation, 55minutes Advance planning; did discuss with the patient and family regarding advanced directives as well as CODE STATUS. Did explain the various scenarios involved (FULL CODE, DNR CCA, DNR CCA with no intubation, and DNR CC and what each meant) patient elected remain full code with CPR and intubation if needed. Order was placed. Time spent on discussion 18 minutes. Charges/Coding Visit Charges Inpatient E&M: 55544 Init Hosp L2 Procedures Hospitalists Procedures: 72429 Advncd Care Plan 30 Min 12/10/23 1230 <Electronically signed by Justus Pop MD> Cosigner Signature (if applicable): CC: Dr. Justus Pop MD; Dr. Rosaura Peck MD~ Signed [facility] Work Phone: Hospital course Narrative No data available for this section [facility] Hospital Discharge instructions Additional Instructions Follow preprinted instructions from your surgeons office. Implant Used?: Yes [facility] Work [facility]: Hospital Discharge instructions No data available for this section [facility] Hospital Discharge instructionsAdditional Instructions Call and follow-up with your orthopedic hip surgeon in [place], Dr. Gracia, as soon as possible. Leave the knee immobilizer on is much as possible. You can take it off to shower or bathe. But with that on it will make it much harder for you to dislocate the knee. Tylenol for pain.[facility] Work Phone: Progress note No data available for this section [facility] Reason for referral (narrative)* Outpatient Procedure (Routine) - Outside PCP Specialty Diagnoses / Procedures Referred By Contac t Referred To [facility] Diagnoses Pre-op testing Procedures ECG COMPLETE ECG ROUTINE ECG W/LEAST 12 LDS W/I&R Alana Mcgraw DO [address] [place] [address] [facility] [address] [place] [address] Referral ID Status Reason Start Date Expiration Date Visits Requested Visits Authorized [id number] Outside PCP Auto-Generat ed Referral 12/08/2022 12/08/2023 1 1 [facility] for referral (narrative)No reason for referral information availableWPremier [facility] Work Phone: Chief Complaint and Reason for Visit Chief Complaint EORDER LABS AND XRAY - SWELLING OF JOINT/ SHOULDER DISLOCATED SHOULDER Chief Complaint EORDER LABS AND XRAY - SWELLING OF JOINT/ SHOULDER DISLOCATED SHOULDER SOFT TISSUE MASS RT ANKLE/FOOT Chief Complaint chesst pain Chief Complaint chesst pain OSTEOARTHRITIS RIGHT SHOULDER *TORNIER PROTOCOL* Chief Complaint OSTEOARTHRITIS RIGHT SHOULDER *TORNIER PROTOCOL* EORDER RT REVERSE TOTAL SHOULDER/ ADD LABS Reason for Visit Post-op pain Chief Complaint EORDER RT REVERSE TOTAL SHOULDER/ ADD LABS RT TOTAL SHOULDER. DR OFFICE TO FAX right shoulder Reason for Visit Post-op pain Chief Complaint EORDER RT REVERSE TOTAL SHOULDER/ ADD LABS RT TOTAL SHOULDER. DR OFFICE TO FAX right shoulder RT SHOULDER DISLOCATION E ORDERS Reason for Visit Post-op pain Chief Complaint RT TOTAL SHOULDER. D R OFFICE TO FAX right shoulder RT SHOULDER DISLOCATION E ORDERS fall LAB WORK HEMATOMA Chief Complaint RT TOTAL SHOULDER. D R OFFICE TO FAX right shoulder RT SHOULDER DISLOCATION E ORDERS fall ADMISSION EXAM LAB WORK ADMISSION EXAM LAB WORK NEW CONCERN LAB WORK HEMATOMA LAB WORK CUSTODIAL LABWORK LAB WORK POSSIBLE FRACTURE Chief Complaint LAB WORK CUSTODIAL LABWORK POSSIBLE FRACTURE TICK BITE RT SHOULDER Reason for Visit Tick bite of axillar y region Chief Complaint TICK BITE RT SHOULDE R Reason for Visit Tick bite of axillar y region Chief Complaint RADICULOPATHY, LUMBA R REGION. RX HERE HIP Chief Complaint RADICULOPATHY, LUMBA R REGION. RX HERE HIP pain, history of hip fracture Chief Complaint HIP pain, history of hip fracture RADICULOPATHY, LUMBAR REGION. RX HERE GI BLEED RECTAL BLEEDING Reason for Visit Acute lower gastroin testinal bleeding Hyponatremia Chief Complaint HIP pain, history of hip fracture RADICULOPATHY, LUMBAR REGION. RX HERE GI BLEED RECTAL BLEEDING GI BLEED GI BLEED GI BLEED Reason for Visit Acute lower gastroin testinal bleeding Hyponatremia Chief Complaint HIP pain, history of hip fracture RADICULOPATHY, LUMBAR REGION. RX HERE GI BLEED RECTAL BLEEDING GI BLEED GI BLEED GI BLEED GI BLEED Chief Complaint HIP pain, history of hip fracture RADICULOPATHY, LUMBAR REGION. RX HERE GI BLEED RECTAL BLEEDING GI BLEED GI BLEED GI BLEED GI BLEED RIGHT HIP PAIN/ FALL Chief Complaint Admit Date LIVER LESION August 23, 2024 10:49am 3 M FU October 19, 2024 10:24am OA LT SHLD,LT SHLD PAIN/RX HERE November 282024 10:00am Reason for Visit Admit Date Ischemic colitis October 19, 2024 10:24am Chief Complaint Admit Date LIVER LESION August 23, 2024 10:49am 3 M FU October 19, 2024 10:24am PELVIC MASS December 06, 2024 1:07 pm OA LT SHLD,LT SHLD PAIN/RX HERE December 10:00am Chief Complaint Admit Date LIVER LESION August 23, 2024 10:49am 3 M FU October 19, 2024 10:24am PELVIC MASS December 06, 2024 1:07 pm OA LT SHLD,LT SHLD PAIN/RX HERE December 9:30am Chief Complaint Admit Date 3 M FU October 19, 2024 10:24am PELVIC [place] December 06, 2024 1:07 pm OA LT SHLD,LT SHLD PAIN/RX HERE December 9:30am 3 M FU January 09, 2025 10:03a m "SPOT" ON R WRIST February 05, 2025 11:46 am Reason for Visit Admit Date Ischemic colitis October 19, 2024 10:24am History of ischemic colitis January 09 10:03am Chronic constipation January 09, 2025 10:03 am Chief Complaint Admit Date PELVIC MASS December 06, 2024 1:07 pm OA LT SHLD,LT SHLD PAIN/RX HERE December 9:30am 3 M FU January 09, 2025 10:03a m "SPOT" ON R WRIST February 05, 2025 11:46 am Reason for Visit Admit Date History of ischemic colitis January 09 10:03am Chronic constipation January 09, 2025 10:03 am Contusion of right wrist February 05, 2025 11:46am Chief Complaint Admit Date PELVIC MASS December 06, 2024 1:07 pm OA LT SHLD,LT SHLD PAIN/RX HERE December 9:30am 3 M FU January 09, 2025 10:03a m "SPOT" ON R WRIST February 05, 2025 11:46 am HIP March 05, 2025 9:46a m Chief Complaint Admit Date PELVIC M[place] December 06, 2024 1:07 pm OA LT SHLD,LT SHLD PAIN/RX HERE December 9:30am 3 M FU January 09, 2025 10:03a m "SPOT" ON R WRIST February 05, 2025 11:46 am HIP March 05, 2025 9:46a m DEBILITY March 06, 2025 3:36p m DEBILITY March 07, 2025 9:50a m DEBILITY March 11, 2025 8:48a m DEBILITY March 13, 2025 8:51a m DEBILITY March 14, 2025 10:2 8am DEBILITY March 19, 2025 12:0 4pm DEBILITY March 20, 2025 8:35 am Reason for Visit Admit Date History of ischemic colitis January 09 10:03am Chronic constipation January 09, 2025 10:03 am Contusion of right wrist February 05, 2025 11:46am Anxiety March 06, 2025 3:36p m Debility March 06, 2025 3:36p m Depression March 06, 2025 3:36p m Dislocation of right hip March 06, 2025 3:36pm Essential tremor March 06, 2025 3:36p m Generalized weakness March 06, 2025 3:36 pm GERD (gastroesophageal reflux disease) J farzaneh 2024 3:36pm Heme positive stool March 06, 2025 3:36p m History of iron deficiency anemia March 062024 3:36pm History of ischemic colitis March 06 3:36pm 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, 2025 3:36p m Hyponatremia March 06, 2025 3:36p m Insomnia March 06, 2025 3:36p m Iron deficiency anemia March 06, 2025 3: 36pm Ischemic colitis March 06, 2025 3:36p m Liver lesion March 06, 2025 3:36p m Osteoarthritis March 06, 2025 3:36p m Ovarian cyst, right March 06, 2025 3:36p m Back pain March 06, 2025 3:36p m Chronic constipation March 06, 2025 3:36 pm Hypertension March 06, 2025 3:36p m Fracture, intertrochanteric, right femur March 06, 2025 3:36pm Post-op pain March 06, 2025 3:36p m Chief Complaint Admit Date 3 M FU January 09, 2025 10:03a m "SPOT" ON R WRIST February 05, 2025 11:46 am HIP March 05, 2025 9:46a m DEBILITY March 06, 2025 3:36p m DEBILITY March 07, 2025 9:50a m DEBILITY March 11, 2025 8:48a m DEBILITY March 13, 2025 8:51a m DEBILITY March 14, 2025 10:2 8am DEBILITY March 18, 2025 8:34 am DEBILITY March 19, 2025 12:0 4pm DEBILITY March 20, 2025 8:35 am 3 M FU April 12, 2025 10: 17am Reason for Visit Admit Date History of ischemic colitis January 09 10:03am Chronic constipation January 09, 2025 10:03 am Contusion of right wrist February 05, 2025 11:46am Anxiety March 06, 2025 3:36p m Debility March 06, 2025 3:36p m Depression March 06, 2025 3:36p m Essential tremor March 06, 2025 3:36p m Generalized weakness March 06, 2025 3:36 pm GERD (gastroesophageal reflux disease) J farzaneh 2024 3:36pm Heme positive stool March 06, 2025 3:36p m History of iron deficiency anemia March 062024 3:36pm History of ischemic colitis March 06 3:36pm 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, 2025 3:36p m Insomnia March 06, 2025 3:36p m Iron deficiency anemia March 06, 2025 3: 36pm Ischemic colitis March 06, 2025 3:36p m Liver lesion March 06, 2025 3:36p m Osteoarthritis March 06, 2025 3:36p m Ovarian cyst, right March 06, 2025 3:36p m Back pain March 06, 2025 3:36p m Chronic constipation March 06, 2025 3:36 pm Hypertension March 06, 2025 3:36p m Dislocation of right hip March 06, 2025 3:36pm Hyponatremia March 06, 2025 3:36p m Fracture, intertrochanteric, right femur March 06, 2025 3:36pm Post-op pain March 06, 2025 3:36p m Chief Complaint Admit Date 3 M FU January 09, 2025 10:03a m "SPOT" ON R WRIST February 05, 2025 11:46 am HIP March 05, 2025 9:46a m DEBILITY March 06, 2025 3:36p m DEBILITY March 07, 2025 9:50a m DEBILITY March 11, 2025 8:48a m DEBILITY March 13, 2025 8:51a m DEBILITY March 14, 2025 10:2 8am DEBILITY March 18, 2025 8:34 am DEBILITY March 19, 2025 12:0 4pm DEBILITY March 20, 2025 8:35 am 3 M FU April 12, 2025 10: 17am PELVIC MASS April 18, 2025 2: 18pm Reason for Visit Admit Date History of ischemic colitis January 09 10:03am Chronic constipation January 09, 2025 10:03 am Contusion of right wrist February 05, 2025 11:46am Anxiety March 06, 2025 3:36p m Debility March 06, 2025 3:36p m Depression March 06, 2025 3:36p m Essential tremor March 06, 2025 3:36p m Generalized weakness March 06, 2025 3:36 pm GERD (gastroesophageal reflux disease) J farzaneh 2024 3:36pm Heme positive stool March 06, 2025 3:36p m History of iron deficiency anemia March 062024 3:36pm History of ischemic colitis March 06 3:36pm 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, 2025 3:36p m Insomnia March 06, 2025 3:36p m Iron deficiency anemia March 06, 2025 3: 36pm Ischemic colitis March 06, 2025 3:36p m Liver lesion March 06, 2025 3:36p m Osteoarthritis March 06, 2025 3:36p m Ovarian cyst, right March 06, 2025 3:36p m Back pain March 06, 2025 3:36p m Chronic constipation March 06, 2025 3:36 pm Hypertension March 06, 2025 3:36p m Dislocation of right hip March 06, 2025 3:36pm Hyponatremia March 06, 2025 3:36p m Fracture, intertrochanteric, right femur March 06, 2025 3:36pm Post-op pain March 06, 2025 3:36p m GERD (gastroesophageal reflux disease) A ugust 2024 10:17am Iron deficiency anemia April 12, 2025 10:17am Ischemic colitis April 12, 2025 10: 17am Chief Complaint Admit Date 3 M FU January 09, 2025 10:03a m "SPOT" ON R WRIST February 05, 2025 11:46 am HIP March 05, 2025 9:46a m DEBILITY March 06, 2025 3:36p m DEBILITY March 07, 2025 9:50a m DEBILITY March 11, 2025 8:48a m DEBILITY March 13, 2025 8:51a m DEBILITY March 14, 2025 10:2 8am DEBILITY March 18, 2025 8:34 am DEBILITY March 19, 2025 12:0 4pm DEBILITY March 20, 2025 8:35 am 3 M FU April 12, 2025 10: 17am PELVIC M[place] April 18, 2025 2: 18pm hip pain April 30, 2025 9: 07am Advance Directives No Advanced Directives Records Found Advance Directive Response Recorded Date/ Time Living Will Yes February 18th, 2 022 9:29am Power of Wellness Manager Yes October 23, 2021 9:29am Advance Directive Response Recorded Date/ Time Living Will No May 19, 2022 10:42am Power of Wellness Manager No May 10:42am Advance Directive Response Recorded Date/ Time Name of Medical Power of Wellness Manager . September 30, 2022 4:41pm Living Will Yes September 30 4:41pm Power of Wellness Manager Yes September 30, 2022 4:41pm Advance Directive Response Recorded Date/ Time Living Will Yes September 30 5:41pm Power of Wellness Manager Yes September 30, 2022 5:41pm Name of Medical Power of Wellness Manager . September 30, 2022 5:41pm Advance Directive Response Recorded Date/ Time Name of Medical Power of Wellness Manager Jessica Boo February 11, 2023 2:06pm Living Will Yes February 11, 2023 2 :06pm Power of Wellness Manager Yes February 11, 2023 2:06pm Advance Directive Response Recorded Date/ Time Living Will Yes February 11, 2023 2 :06pm Power of Wellness Manager Yes February 11, 2023 2:06pm Advance Directive Response Recorded Date/ Time Living Will Yes February 11, 2023 1 :06pm Power of Wellness Manager Yes February 11, 2023 1:06pm Advance Directive Response Recorded Date/ Time Name of Medical Power of Wellness Manager . December 10, 2023 9:15am Living Will Yes December 10, 2023 9:15am Power of Wellness Manager Yes December 09 9:15am Advance Directive Response Recorded Date/ Time Name of Medical Power of Wellness Manager Ita Boo December 10, 2023 1:32pm Living Will Yes December 10, 2023 1:32pm Power of Wellness Manager Yes December 09 1:32pm Advance Directive Response Recorded Date/ Time Do you have a Healthcare Power of Wellness Manager? Yes March 05, 2025 10:04am Name of Medical Power of Wellness Manager sergei boo March 05, 2025 10:04am Advance Directive Response Recorded Date/ Time Do you have a Healthcare Power of Wellness Manager? Yes March 05, 2025 10:04am Name of Medical Power of Wellness Manager sergei boo March 05, 2025 10:04am Do you have a Healthcare Power of Wellness Manager? Yes March 11, 2025 3:56pm Name of Medical Power of Wellness Manager VANESSA Casanova March 11, 2025 3:56pm Advance Directive Response Recorded Date/ Time Do you have a Healthcare Pow er of Wellness Manager? Yes March 05, 2025 10:04am Name of Medical Power of Wellness Manager sergei boo March 05, 2025 10:04am Do you have a Healthcare Pow er of Wellness Manager? Yes March 11, 2025 3:56pm Name of Medical Power of Wellness Manager VANESSA Casanova March 11, 2025 3:56pm Do you have a Healthcare Pow er of Wellness Manager? Yes April 30, 2025 11:22am Name of Medical Power of Wellness Manager son April 30, 2025 11:22am Summary Purpose Family History No Family History Records FoundNo Family History Records FoundNo Family History Records FoundNo Family History Records Found No data available for this section No Family History Records FoundNo Family History Records FoundNo Family History Records Found Additional Source Comments Goals (unrecognized section and content) Goals may be documented in a n alternate sectionGoals may be documented in an alternate sectionGoals may be documented in an alternate sectionGoals may be documented in an alternate sectionGoals may be documented in an alternate sectionGoals may be documented in an alternate sectionGoals may be documented in an alternate section No data available for this sectionGoals may be documented in an alternate sectionGoals may be documented in an alternate sectionGoals may be documented in an alternate sectionGoals may be documented in an alternate sectionGoals may be documented in an alternate sectionGoals may be documented in an alternate sectionGoals may be documented in an alternate sectionGoals may be documented in an alternate sectionGoals may be documented in an alternate sectionGoals may be documented in an alternate sectionGoals may be documented in an alternate sectionGoals may be documented in an alternate sectionGoals may be documented in an alternate section No data available for this section Care Teams (unrecognized sec tion and content) Team Status: Active Member Role Status Dates Dr. Rosaura Rubi MD Family Provider Active Dr. Rosaura Peck MD Primary Care Provider Active Team Status: Inactive Member Role Status Dates Dr. Rosaura Peck MD Primary Care Pr ovider, Attending Provider, Referring Provider Active Team Status: Inactive Member Role Status Dates Dr. Rosaura Peck MD Primary Care Provider Active Dr. Tong Gomez DO Attending Provider Active Team Status: Inactive Member Role Status Dates Dr. Rosaura Peck MD Primary Care Provider Active Dr. Tong Gomez DO Admit Provider , Attending Provider, Referring Provider Active Team Status: Active Member Role Status Dates Dr. Rosaura Peck MD Primary Care Provider Active Dr. Tong Gomez DO Attending Provider, Referrin g Provider Active Team Status: Inactive Member Role Status Dates Dr. Rosaura Peck MD Primary Care Provider Active Ed Physician Provider Emergency Provider Active Team Status: Inactive Member Role Status Dates Dr. Rosaura Peck MD Primary Care Provider Active Ed Physician Provider Attending Provider, Emergency Pr ovider Active Team Status: Active Member Role Status Dates Dr. Rosaura Peck MD Primary Care Pr ovider, Attending Provider, Referring Provider Active Team Status: Inactive Member Role Status Dates Dr. Rosaura Peck MD Primary Care Provider, Attend ing Provider Active Team Status: Inactive Member Role Status Dates Dr. Rosaura Peck MD Primary Care Provider Active Dr. Tru Ashby MD Attending Provider, Emergency Provider Active Team Status: Inactive Member Role Status Dates Dr. Rosaura Peck MD Primary Care Provider Active LALITA DALTON Attending Provider, Referring Provider Active Team Status: Active Member Role Status Dates Dr. Rosaura Peck MD Primary Care Provider Active Josh SU MD Attending Provider Active Team Status: Inactive Member Role Status Dates Dr. Rosaura Peck MD Primary Care Provider Active Angela Rivera NP, NP-C Attending Provider Active Team Status: Inactive Member Role Status Dates Dr. Rosaura Peck MD Primary Care Provider Active Dr. Josh Flores MD Attending Provider Active Team Status: Inactive Member Role Status Dates Dr. Rosaura Peck MD Primary Care Provider Active JENNIFER WARNER Attending Provider, Referring Provider Active Team Status: Active Member Role Status Dates Dr. Rosaura Peck MD Primary Care Provider Active Josh SU MD Attending Provider, Referring Provider Active Team Status: Active Member Role Status Dates Dr. Rosaura Peck MD Primary Care Provider Active Angela Tickton OLS, RESEARCH AND EVALUATION MANAGER-C Attending Provider Active Team Status: Inactive Member Role Status Dates Dr. Rosaura Peck MD Primary Care Provider, Referr ing Provider Active AMY Ribera Attending Provider Active Team Status: Active Member Role Status Dates Dr. Rosaura Peck MD Primary Care Provider, Attend ing Provider Active Team Status: Active Member Role Status Dates Dr. Rosaura Peck MD Primary Care Provider Active Danie REYES PA-C Attending Provider Active Team Status: Active Member Role Status Dates Dr. Rosaura Peck MD Primary Care Provider Active Dr. Mustapha Mccracken DO Emergency Provider Active Dr. Justus Pop MD Attending Provider Active Team Status: Active Member Role Status Dates Dr. Rosaura Peck MD Primary Care Provider Active Dr. Mustapha Mccracken DO Emergency Provider Active Dr. Justus Pop MD Admit Provider, Attending Provid er Active Team Status: Active Member Role Status Dates Dr. Rosaura Peck MD Primary Care Provider Active Dr. Mustapha Mccracken DO Emergency Provider Active Dr. Justus Pop MD Admit Provider, At tending Provider, Other Provider Active Team Status: Active Member Role Status Dates Dr. Rosaura Peck MD Primary Care Provider Active Dr. Mustapha Mccracken DO Emergency Provider Active Dr. Justus Pop MD Admit Provider, Other Provider A ctive Dr. Demarco Veloz , DO Attending Provider Active Team Status: Active Member Role Status Dates Dr. Rosaura Peck MD Primary Care Provider Active Dr. Demarco Veloz , Attending Provider Active Team Status: Active Member Role Status Dates Dr. Rosaura Peck MD Primary Care Provider Active Dr. Mustapha Mccracken DO Emergency Provider Active Dr. Justus Pop MD Admit Provider, Other Provider A ctive Dr. Eduardo Gonzalez , DO Attending Provider, Other Pro vider Active Team Status: Inactive Member Role Status Dates Dr. Rosaura Peck MD Primary Care Provider Active Dr. Mustapha Mccracken DO Emergency Provider Active Dr. Justus Pop MD Admit Provider, Other Provider A ctive Dr. Eduardo Gonzalez , DO Attending Provider Active Team Status: Active Member Role Status Dates Dr. Rosaura Peck MD Primary Care Provider Active Dr. Mustapha Mccracken DO Emergency Provider Active Dr. Justus Pop MD Admit Provider, Re ferring Provider, Other Provider Active Dr. Demarco Veloz DO Attending Provider Active Team Status: Active Member Role Status Dates Dr. Rosaura Peck MD Primary Care Provider Active Dr. Demarco Veloz DO Attending Provider Active Dr. Eduardo Gonzalez DO Referring Provider Active Team Status: Inactive Member Role Status Dates Dr. Rosaura Peck MD Primary Care Provider Active RESEARCH AND EVALUATION MANAGERAngie Villafana Attending Provider, Referring Provid er Active Insole Reinforcer Relationship Specialty Start Date End Date Rosaura Peck MD [address] [facility] [address] [place] [address] PCP - General Family Medicine 09/07/24 Santana Garcia MD [address] [facility] [address] [place] [address] Consulting Physician Gynecologic Oncology 09/03/24 Team Status: Active Member Role Status Dates Dr. Rosaura Peck MD Primary Care Provider Active Team Status: Inactive Member Role Status Dates Dr. Rosaura Peck MD Primary Care Provider Active Start: August 23, 2024 End: August 23, 2024 AMY Rangel Attending Provider Active Start: August 23, 2024 End: August 23, 2024 AMY Rangel Referring Provider Active Start: August 23, 2024 End: August 23, 2024 Team Status: Inactive Member Role Status Dates Dr. Rosaura Peck MD Primary Care Provider Active Start: October 03, 2024 End: October 03, 2024 Dr. Rosaura Peck MD Attending Provider Active Start: October 03, 2024 End: October 03, 2024 Dr. Rosaura Peck MD Referring Provider Active Start: October 03, 2024 End: October 03, 2024 Team Status: Inactive Member Role Status Dates Dr. Rosaura Peck MD Primary Care Provider Active Start: October 04, 2024 End: October 04, 2024 Dr. Star Kirby MD Attending Provider Active Start: October 04, 2024 End: October 04, 2024 Dr. Star Kirby MD Referring Provider Active Start: October 04, 2024 End: October 04, 2024 Team Status: Inactive Member Role Status Dates Dr. Rosaura Peck MD Primary Care Provider Active Start: October 19, 2024 End: October 19, 2024 Dr. Rosaura Peck MD Referring Provider Active Start: October 19, 2024 End: October 19, 2024 AMY Rangel Attending Provider Active Start: October 19, 2024 End: October 19, 2024 Team Status: Inactive Member Role Status Dates Dr. Rosaura Peck MD Primary Care Provider Active Start: November 21, 2024 End: November 21, 2024 Dr. Rosaura Peck MD Attending Provider Active Start: November 21, 2024 End: November 21, 2024 Dr. Rosaura Peck MD Referring Provider Active Start: November 21, 2024 End: November 21, 2024 Team Status: Active Member Role Status Dates Dr. Rosaura Peck MD Primary Care Provider Active Start: November 28, 2024 AMY Trotter Attending Provider Active Start : November 28, 2024 AMY Trotter Referring Provider Active Start : November 28, 2024 Team Status: Inactive Member Role Status Dates Dr. Rosaura Peck MD Primary Care Provider Active Start: December 06, 2024 End: December 06, 2024 Dr. Santana Garcia MD Attending Provider Active Start: December 06, 2024 End: December 06, 2024 Dr. Santana Garcia MD Referring Provider Active Start: December 06, 2024 End: December 06, 2024 Team Status: Active Member Role Status Dates Dr. Rosaura Peck MD Primary Care Provider Active Start: December 10, 2024 AMY Trotter Attending Provider Active Start : December 10, 2024 AMY Trotter Referring Provider Active Start : December 10, 2024 Insole Reinforcer Relationship Specialty Start Date End Date Rosaura Peck MD [address] [facility] [address] [place] [address] PCP - General Family Medicine 09/07/24 Santana Garcia MD [address] [address] Consulting Physician Gynecologic Oncology 09/03/24 Team Status: Inactive Member Role Status Dates Dr. Rosaura Peck MD Primary Care Provider Active Start: December 12, 2024 End: December 12, 2024 AMY Trotter Attending Provider Active Start : December 12, 2024 End: December 12, 2024 AMY Trotter Referring Provider Active Start : December 12, 2024 End: December 12, 2024 Insole Reinforcer Relationship Specialty Start Date End Date Rosaura Peck MD [address] [facility] [address] [place] [id number] PCP - General Family Medicine 09/07/24 Santana Garcia MD [address] [facility] [address] [place], [place] [id number] Consulting Physician Gynecologic Oncology 09/03/24 Team Status: Inactive Member Role Status Dates Dr. Rosaura Peck MD Primary Care Provider Active Start: January 09, 2025 End: January 09, 2025 Dr. Rosaura Peck MD Referring Provider Active Start: January 09, 2025 End: January 09, 2025 AMY Rangel Attending Provider Active Start: January 09, 2025 End: January 09, 2025 Team Status: Inactive Member Role Status Dates Dr. Rosaura Peck MD Primary Care Provider Active Start: February 05, 2025 End: February 05, 2025 Dr. Rosaura Peck MD Referring Provider Active Start: February 05, 2025 End: February 05, 2025 Jimmy REYES, PA Attending Provider Active Start: February 05, 2025 End: February 05, 2025 Team Status: Inactive Member Role Status Dates Dr. Rosaura Peck MD Primary Care Provider Active Start: February 19, 2025 End: February 19, 2025 AMY Trotter Attending Provider Active Start : February 19, 2025 End: February 19, 2025 AMY Trotter Referring Provider Active Start : February 19, 2025 End: February 19, 2025 Team Status: Active Member Role Status Dates Dr. Rosaura Peck MD Primary Care Provider Active Start: February 20, 2025 Dr. Rosaura Peck MD Attending Provider Active Start: February 20, 2025 Team Status: Inactive Member Role Status Dates Dr. Rosaura Peck MD Primary Care Provider Active Start: February 20, 2025 End: February 20, 2025 Dr. Rosaura Peck MD Attending Provider Active Start: February 20, 2025 End: February 20, 2025 Team Status: Active Member Role/Relationship Status Dates Dr. Rosaura Peck MD Primary Care Provider Active Team Status: Inactive Member Role/Relationship Status Dates Dr. Rosaura Peck MD Primary Care Provider Active Start: November 21, 2024 End: November 21, 2024 Dr. Rosaura Peck MD Attending Provider Active Start: November 21, 2024 End: November 21, 2024 Dr. Rosaura Peck MD Referring Provider Active Start: November 21, 2024 End: November 21, 2024 Team Status: Inactive Member Role/Relationship Status Dates Dr. Rosaura Peck MD Primary Care Provider Active Start: December 06, 2024 End: December 06, 2024 Dr. Santana Garcia MD Attending Provider Active Start: December 06, 2024 End: December 06, 2024 Dr. Santana Garcia MD Referring Provider Active Start: December 06, 2024 End: December 06, 2024 Team Status: Inactive Member Role/Relationship Status Dates Dr. Rosaura Peck MD Primary Care Provider Active Start: December 12, 2024 End: December 12, 2024 AMY Trotter Attending Provider Active Start : December 12, 2024 End: December 12, 2024 AMY Trotter Referring Provider Active Start : December 12, 2024 End: December 12, 2024 Team Status: Inactive Member Role/Relationship Status Dates Dr. Rosaura Peck MD Primary Care Provider Active Start: January 09, 2025 End: January 09, 2025 Dr. Rosaura Peck MD Referring Provider Active Start: January 09, 2025 End: January 09, 2025 AMY Rangel Attending Provider Active Start: January 09, 2025 End: January 09, 2025 Team Status: Inactive Member Role/Relationship Status Dates Dr. Rosaura Peck MD Primary Care Provider Active Start: February 05, 2025 End: February 05, 2025 Dr. Rosaura Peck MD Referring Provider Active Start: February 05, 2025 End: February 05, 2025 Jimmy REYES PA Attending Provider Active Start: February 05, 2025 End: February 05, 2025 Team Status: Inactive Member Role/Relationship Status Dates Dr. Rosaura Peck MD Primary Care Provider Active Start: February 19, 2025 End: February 19, 2025 AMY Trotter Attending Provider Active Start : February 19, 2025 End: February 19, 2025 AMY Trotter Referring Provider Active Start : February 19, 2025 End: February 19, 2025 Team Status: Inactive Member Role/Relationship Status Dates Dr. Rosaura Peck MD Primary Care Provider Active Start: February 20, 2025 End: February 20, 2025 Dr. Rosaura Peck MD Attending Provider Active Start: February 20, 2025 End: February 20, 2025 Team Status: Inactive Member Role/Relationship Status Dates Dr. Rosaura Peck MD Primary Care Provider Active Start: March 05, 2025 End: March 05, 2025 Dr. Wilbert Avilez MD Emergency Provider Active S tart: March 05, 2025 End: March 05, 2025 Team Status: Inactive Member Role/Relationship Status Dates Dr. Rosaura Peck MD Primary Care Provider Active Start: March 05, 2025 End: March 05, 2025 Dr. Wilbert Avilez MD Attending Provider Active S tart: March 05, 2025 End: March 05, 2025 Dr. Wilbert Avilez MD Emergency Provider Active S tart: March 05, 2025 End: March 05, 2025 Team Status: Inactive Member Role/Relationship Status Dates Dr. Rosaura Peck MD Primary Care Provider Active Start: March 06, 2025 End: March 21, 2025 Dr. Justina Perea DO Admit Provider Active Start: March 06, 2025 End: March 21, 2025 Dr. uJstina Perea DO Attending Provider Act jax Start: March 06, 2025 End: March 21, 2025 Dr. Justina Perea DO Referring Provider Act jax Start: March 06, 2025 End: March 21, 2025 Team Status: Active Member Role/Relationship Status Dates Dr. Rosaura Peck MD Primary Care Provider Active Start: March 07, 2025 Dr. Justina Perea , Admit Provider Active Start: March 07, 2025 Dr. Justina Perea DO Other Provider Active Start: March 07, 2025 Carly Montiel NP-C Attending Provider Act jax Start: March 07, 2025 Team Status: Active Member Role/Relationship Status Dates Dr. Rosaura Peck MD Primary Care Provider Active Start: March 11, 2025 Dr. Justina Perea , Admit Provider Active Start: March 11, 2025 Dr. Justina Perea DO Other Provider Active Start: March 11, 2025 Carly Montiel NP-C Attending Provider Act jax Start: March 11, 2025 Team Status: Active Member Role/Relationship Status Dates Dr. Rosaura Peck MD Primary Care Provider Active Start: March 13, 2025 Dr. Justina Perea DO Admit Provider Active Start: March 13, 2025 Dr. Justina Perea DO Attending Provider Act jax Start: March 13, 2025 Dr. Justina Perea , Other Provider Active Start: March 13, 2025 Team Status: Active Member Role/Relationship Status Dates Dr. Rosaura Peck MD Primary Care Provider Active Start: March 14, 2025 Dr. Justina Perea DO Admit Provider Active Start: March 14, 2025 Dr. Justina Perea DO Attending Provider Act jax Start: March 14, 2025 Dr. Justina Perea DO Other Provider Active Start: March 14, 2025 Team Status: Active Member Role/Relationship Status Dates Dr. Rosaura Peck MD Primary Care Provider Active Start: March 19, 2025 Dr. Justina Perea DO Admit Provider Active Start: March 19, 2025 Dr. Justina Perea DO Attending Provider Act jax Start: March 19, 2025 Dr. Justina Perea DO Referring Provider Act jax Start: March 19, 2025 Dr. Justina Perea DO Other Provider Active Start: March 19, 2025 Team Status: Active Member Role/Relationship Status Dates Dr. Rosaura Peck MD Primary Care Provider Active Start: March 20, 2025 Dr. Justina Perea DO Admit Provider Active Start: March 20, 2025 Dr. Justina Perea DO Attending Provider Act jax Start: March 20, 2025 Dr. Justina Perea DO Referring Provider Act jax Start: March 20, 2025 Dr. Justina Perea DO Other Provider Active Start: March 20, 2025 Insole Reinforcer Relationship Specialty Start Date End Date Rosaura Peck MD [address] [facility] [address] [place] [address] PCP - General Family Medicine 09/07/24 Santana Garcia MD [address] [facility] [address] [place] [address] Consulting Physician Gynecologic Oncology 09/03/24 Team Status: Inactive Member Role/Relationship Status Dates Dr. Rosaura Peck MD Primary Care Provider Active Start: January 09, 2025 End: January 09, 2025 Dr. Rosaura Peck MD Referring Provider Active Start: January 09, 2025 End: January 09, 2025 AMY Rangel Attending Provider Active Start: January 09, 2025 End: January 09, 2025 Team Status: Inactive Member Role/Relationship Status Dates Dr. Rosaura Peck MD Primary Care Provider Active Start: February 05, 2025 End: February 05, 2025 Dr. Rosarua Peck MD Referring Provider Active Start: February 05, 2025 End: February 05, 2025 Jimmy REYES, PA Attending Provider Active Start: February 05, 2025 End: February 05, 2025 Team Status: Inactive Member Role/Relationship Status Dates Dr. Rosaura Peck MD Primary Care Provider Active Start: February 19, 2025 End: February 19, 2025 AMY Trotter Attending Provider Active Start : February 19, 2025 End: February 19, 2025 AMY Trotter Referring Provider Active Start : February 19, 2025 End: February 19, 2025 Team Status: Inactive Member Role/Relationship Status Dates Dr. Rosaura Peck MD Primary Care Provider Active Start: February 20, 2025 End: February 20, 2025 Dr. Rosaura Peck MD Attending Provider Active Start: February 20, 2025 End: February 20, 2025 Team Status: Inactive Member Role/Relationship Status Dates Dr. Rosaura Peck MD Primary Care Provider Active Start: March 05, 2025 End: March 05, 2025 Dr. Wilbert Avilez MD Attending Provider Active S tart: March 05, 2025 End: March 05, 2025 Dr. Wilbert Avilez MD Emergency Provider Active S tart: March 05, 2025 End: March 05, 2025 Team Status: Inactive Member Role/Relationship Status Dates Dr. Rosaura Peck MD Primary Care Provider Active Start: March 06, 2025 End: March 21, 2025 Dr. Justina Perea DO Admit Provider Active Start: March 06, 2025 End: March 21, 2025 Dr. Justina Perea DO Attending Provider Act jax Start: March 06, 2025 End: March 21, 2025 Dr. Justina Perea DO Referring Provider Act jax Start: March 06, 2025 End: March 21, 2025 Team Status: Active Member Role/Relationship Status Dates Dr. Rosaura Peck MD Primary Care Provider Active Start: March 07, 2025 Dr. Justina Perea DO Admit Provider Active Start: March 07, 2025 Dr. Justina Perea DO Other Provider Active Start: March 07, 2025 JOHNNIE Nguyen Attending Provider Act jax Start: March 07, 2025 Team Status: Active Member Role/Relationship Status Dates Dr. Rosaura Peck MD Primary Care Provider Active Start: March 11, 2025 Dr. Justina Perea DO Admit Provider Active Start: March 11, 2025 Dr. Justina Perea DO Other Provider Active Start: March 11, 2025 JOHNNIE Nguyen Attending Provider Act jax Start: March 11, 2025 Team Status: Active Member Role/Relationship Status Dates Dr. Rosaura Peck MD Primary Care Provider Active Start: March 13, 2025 Dr. Justina Perea , DO Admit Provider Active Start: March 13, 2025 Dr. Justina Perea , DO Attending Provider Act jax Start: March 13, 2025 Dr. Justina Perea , DO Other Provider Active Start: March 13, 2025 Team Status: Active Member Role/Relationship Status Dates Dr. Rosaura Peck MD Primary Care Provider Active Start: March 14, 2025 Dr. Justina Perea , DO Admit Provider Active Start: March 14, 2025 Dr. Justina Perea , DO Attending Provider Act jax Start: March 14, 2025 Dr. Justina Perea , DO Other Provider Active Start: March 14, 2025 Team Status: Active Member Role/Relationship Status Dates Dr. Rosaura Peck MD Primary Care Provider Active Start: March 18, 2025 Dr. Justina Perea , DO Admit Provider Active Start: March 18, 2025 Dr. Justina Perea , DO Other Provider Active Start: March 18, 2025 JOHNNIE Nguyen Attending Provider Act jax Start: March 18, 2025 Team Status: Active Member Role/Relationship Status Dates Dr. Rosaura Peck MD Primary Care Provider Active Start: March 19, 2025 Dr. Justina Perea , DO Admit Provider Active Start: March 19, 2025 Dr. Justina Perea , DO Attending Provider Act jax Start: March 19, 2025 Dr. Justina Perea , DO Other Provider Active Start: March 19, 2025 Team Status: Active Member Role/Relationship Status Dates Dr. Rosaura Peck MD Primary Care Provider Active Start: March 20, 2025 Dr. Justina Perea , DO Admit Provider Active Start: March 20, 2025 Dr. Justina Perea , DO Attending Provider Act jax Start: March 20, 2025 Dr. Justina Perea , DO Other Provider Active Start: March 20, 2025 Team Status: Inactive Member Role/Relationship Status Dates Dr. Rosaura Peck MD Primary Care Provider Active Start: April 12, 2025 End: April 12, 2025 Dr. Rosaura Peck MD Referring Provider Active Start: April 12, 2025 End: April 12, 2025 AMY Rangel Attending Provider Active Start: April 12, 2025 End: April 12, 2025 Team Status: Inactive Member Role/Relationship Status Dates Dr. Rosaura Peck MD Primary Care Provider Active Start: April 18, 2025 End: April 18, 2025 Dr. Santana Garcia MD Attending Provider Active Start: April 18, 2025 End: April 18, 2025 Dr. Santana Garcia MD Referring Provider Active Start: April 18, 2025 End: April 18, 2025 Team Status: Inactive Member Role/Relationship Status Dates Dr. Rosaura Peck MD Primary Care Provider Active Start: April 30, 2025 End: April 30, 2025 Glenn Dutton MD Emergency Provider Active Star t: April 30, 2025 End: April 30, 2025 Source Comments (unrecognize d section and content) In the event this informatio n is protected by the Federal Confidentiality of Alcohol and Drug Abuse Patient Records regulations: The Federal rules restrict any use of the information to criminally investigate or prosecute any alcohol or drug abuse patient.[facility] INFORMATION SOURCE (unrecogn ized section and content) DATE CREATED AUTHOR 03/12/2023 [facility] ([place]) DATE CREATED AUTHOR AUTHOR'S ORGANIZ ATION 02/19/2024 [facility] DATE CREATED AUTHOR AUTHOR'S ORGANIZ ATION 04/06/2024 [facility] DATE CREATED AUTHOR AUTHOR'S ORGANIZ ATION 04/26/2025 [facility] DATE CREATED AUTHOR AUTHOR'S ORGANIZ ATION 05/08/2025 [facility] DATE CREATED AUTHOR AUTHOR'S ORGANIZ ATION 05/08/2025 [facility] DATE CREATED AUTHOR AUTHOR'S ORGANIZ ATION 05/09/2025 [facility] Reason for Visit (unrecogniz ed section and content) Reason Comments Female Problem Specialty Diagnoses / Procedures Referred By Contac t Referred To Contact Gynecologic Oncology Diagnoses Unspecified ovarian cyst, unspecified side Procedures ND OFFICE/OUTPATIENT NEW HIGH MDM 60 MINUTES Yue News[place] [address] [place] [address] Phone: tel: fax:[phone] [facility] Gynecologic Oncology - [place] [address] [facility] [address] [place] [address] Phone: tel: fax: Referral ID Status Reason Start Date Expiration Date V isits Requested Visits Authorized [id number] Pending Review 06/21/2024 06/21/2025 1 1 FOR RECORDS PERTAINING TO PATIENTS WHO ARE [...] BE BASED ON THE PRIMARY CLINICAL RECORDS. [facility] [email or web address] [facility]. provides no warranty or guarantee of the accuracy or completeness of information in this document.
[2025-05-10 08:32] LABS: CRP 11.10 mg/L (0.0-3.0)
== END ==
PROVIDERS: PCP Family Medicine; Visit Provider Orthopaedic Surgery
DX: S72.141A Displaced intertrochanteric fracture of right femur, initial encounter for closed fracture (principal); Z96.641 Presence of right artificial hip joint; M25.551 Pain in right hip
CPT/HCPCS: 36415; 85652; 86140

== ENCOUNTER 2025-05-17 13:10 | Inpatient (IN) | payer MEDICARE, OTHER, SELFPAY ==
[2025-05-17 14:03] VITALS: BP 136/75; PULSE 60; RESP 18; TEMP 37.2; O2SAT 94; BMI 20.6
[2025-05-17 14:30] VITALS: PULSE 60; RESP 18; O2SAT 94
--- NOTE | 2025-05-17 14:41 | HP.PCM_ITS ---
HPI - General General Date of Admission: 05/17/25 Date of Service: 05/17/25 Chief Complaint: Here for rehabilitation. HPI Narrative GEORGINA LEONARD, is a 84 Female who presents with following: History right total hip arthroplasty, right prosthetic dislocated multiple times. 05/14/2025 Admit [facility]. 05/14/2025 Dr. Jacobs performed revision right total hip arthroplasty, posterior approach. 05/15/2025 Hemoglobin 11.2 to 8.5. Fall, weight bearing right lower extremity. PT/OT. Lovenox inpatient, Aspirin 81mg po bid x 6 weeks for dvt prophylaxis. 05/15/2025 Feels well. Sodium improved to 135. 05/16/2025 Hemoglobin 8.8. Cefazolin IV inpatient, then Cefadroxil 500mg po bid x 7 days on discharge. PT/OT for TCU. 05/17/2025 Admit to TCU with debility, here for rehabilitation, strengthening, prior to discharge to [facility] Medical History Liver lesion, right lobe GI bleed Fracture, intertrochanteric, right femur Osteoarthritis Depression Essential tremor Ovarian cyst, right History of iron deficiency anemia Hyponatremia History of SIADH Contusion of right wrist Acute lower gastrointestinal bleeding History of echocardiogram Wears glasses Post-menopausal Anxiety Alcohol use History of steroid therapy Ambulates with cane Arthritis Back pain Migraine headache Constipation Former smoker Leg cramps History of pain when walking History of fracture of leg Hypertension Home Medications ?Medication ?Instructions ?Recorded ?Last Taken ?Type lisinopril 20 mg tablet 20 mg PO DAILY blood pressur e 10/23/21 12/09/23 History calcium 600 mg (as 1 tab PO DAILY supplement 12/09/23 History carbonate)-vitamin D3 5 mcg (200 unit) tablet pantoprazole 40 mg tablet,delayed 40 mg PO DAILY reflu x #30 tabs 12/13/23 Unknown Rx release ferrous sulfate 325 mg (65 mg 325 mg PO DAILY suppleme nt 03/07/24 Unknown History iron) tablet (Feosol) celecoxib 200 mg capsule 200 mg PO QODAY PRN pain 04/28 Unknown History primidone 50 mg tablet 125 mg PO BID.TCU Essential Tremor 10/08/24 Unknown History acetaminophen 500 mg tablet 1,000 mg PO Q8 PRN pain Unknown History duloxetine 30 mg capsule,delayed 30 mg PO DAILY Depres wolfgang 03/06/25 Unknown History release Arthritis Pain Compound 2 click topical 0600,2200 7 days 03/18/25 Unknown Rx #60 GMS mirtazapine 15 mg tablet 7.5 mg (1/2 x 15 mg) PO QHS 03/18/25 Unknown Rx sleep/appetitie 7 days #4 tabs sennosides 8.6 mg-docusate sodium 2 tab PO BID 7 days #28 tabs 03/18/25 Unknown Rx 50 mg tablet (Stimulant Laxative Plus) mesalamine 1.2 gram tablet,delayed 1.2 g PO DAILY IBS 90 days #90 tabs 04/22/25 Unknown Rx release dicyclomine 10 mg capsule 10 mg PO BID IBS 30 days #60 caps 05/13/25 Unknown Rx acetaminophen 325 mg tablet 650 mg PO Q4H PRN pain (1- 10) 05/17/25 Unknown History aspirin 81 mg tablet,delayed 81 mg PO BID.TCU post juana love 05/17/25 Unknown History release (Adult Aspirin Regimen) cefadroxil 500 mg capsule 500 mg PO Q12H post surgery ATB 05/17/25 Unknown Histo ry melatonin 3 mg tablet 3 mg PO QHS PRN sleep Unknown History oxycodone 5 mg tablet 5 mg PO Q6H PRN HIP PAIN 08/29 Unknown History polyethylene glycol 3350 17 17 g PO DAILY bowels 05/17 Unknown History gram/dose oral powder (Miralax) tramadol 50 mg tablet 50 mg PO Q6H PRN pain (scale score 05/17/25 Unknown History 7-10) Allergy/AdvReac Type Severity Reaction Status Date / Time venom-honey bee Allergy Hives Verified 03/05/25 09:46 venom-wasp Allergy Hives Verified 03/05/25 09:46 naproxen AdvReac Other Verified 03/05/25 09:46 prednisone AdvReac Other Verified 03/05/25 09:46 Surgical History H/O shoulder replacement Hx of right cataract extraction Hx of left cataract extraction Hx of colonoscopy Social History (Updated 05/17/25 @ 14:[address] Moy Combs MD) adopted: No household members: none housing: assisted living facility number of children: 1 current occupational status: retired Smoking Status: Former smoker alcohol intake: current alcohol intake frequency: holidays/special occasions only seatbelt use: always do you feel safe at home: Yes additional social history: ROS Constitutional Constitutional: Reports weakness; Denies chills, fever(s) or weight gain ENT HEENT: Denies headache(s), nasal congestion or nasal discharge Cardiovascular Cardiovascular: Denies chest pain or palpitations Respiratory/Chest Respiratory/Chest: Denies cough, excessive phlegm production or shortness of breath with exertion Gastrointestinal Gastrointestinal: Denies abdominal pain, nausea or vomiting Genitourinary Genitourinary: Denies dysuria Musculoskeletal Musculoskeletal: Denies joint pain or joint swelling Integumentary Integumentary: Denies rash or wounds Neurologic Neurologic: Denies focal weakness, numbness or tingling Psychiatric Psychiatric: Denies anxiety, auditory hallucinations, depression, homicidal ideation or suicidal ideation Vital Signs Vital Signs Vital Signs: 05/17/25 14:03 Temperature 98.9 F Temperature Source Temporal Pulse Rate 60 Respiratory Rate 18 Blood Pressure 136/75 H Blood Pressure Mean 95 Blood Pressure Source Monitor Pulse Ox 94 Oxygen Delivery Method Room Air Weight Weight: 54.601 kg Body Mass Index (BMI) 20.6 Physical Exam Const alert General Appearance: cooperative HEENT normocephalic Eyes PERRL and EOMs intact bilaterally Neck supple, no JVD and no carotid bruits Resp normal respiratory effort, normal air movement and clear to auscultation bilaterally Cardio regular rate and regular rhythm GI normal to inspection, nondistended, normoactive bowel sounds, non-tender and non-distended Extremity normal capillary refill General Extremity: Negative for edema Skin no rashes or lesions noted General Skin Exam: no breakdown Psych affect normal Appearance: appropriate Assessment & Plan Assessment/Plan (1) Debility: (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: (3) Essential (primary) hypertension: (4) GERD (gastroesophageal reflux disease): QUALIFIERS: Esophagitis presence: esophagitis presence not specified Qualified Code(s): K21.9 - Gastro-esophageal reflux disease without esophagitis (5) Iron deficiency anemia: QUALIFIERS: Iron deficiency anemia type: chronic blood loss Qualified Code(s): D50.0 - Iron deficiency anemia secondary to blood loss (chronic) (6) Osteoarthritis: QUALIFIERS: Osteoarthritis location: multiple joints Osteoarthritis type: primary Qualified Code(s): M15.0 - Primary generalized (osteo)arthritis (7) Essential tremor: (8) Ulcerative colitis: (9) Depression: QUALIFIERS: Depression Type: unspecified Qualified Code(s): F32.A - Depression, unspecified (10) Anxiety: PLAN: Plan 84 year old female with below past medical history hospitalized for failure right total hip arthroplasty, underwent revision right total hip arthroplasty 05/14/[address] Jacobs, admitted to TCU with debility, here for rehabilitation, strengthening, prior to discharge to [facility]. * Debility - PT/OT. * Pain - Tylenol 1000mg q8, Tramadol 50mg q6 prn pain (1-5), Oxycodone 5mg q4 prn pain (6-10), Celebrex 200mg qod prn pain (1-10). * Bowel - Miralax 17gm daily, senna/colace 2 tablets bid, Magnesium citrate 300mL daily prn. * Adult immunization - Administer pneumonia vaccine, covid vaccine, flu vaccine as appropriate. * DVT prophylaxis - Aspirin 81mg bid thru 06/28/2025. * Calcium deficiency - Calcium D 1 tablet daily. * ID - Cefadroxil 500mg bid thru 05/24/2025. * Ulcerative colitis - Mesalamine 1.2gm daily, Bentyl 10mg bidac thru 05/27/2025. * Hypertension - Lisinopril 20mg dlaiy. * Insomnia - Melatonin 3mg qhs prn. * GERD - Pantoprazole 40mg daily. * Tremor - Primidone 125mg bid. The following psychotropic medication was present on admission: Duloxetine 30mg daily. Psychotropic medication therapy is indicated for a diagnosis of: Depression. Based on my clinical evaluation, continuation of the medication is necessary at this time. Gradual dose reduction plan (select one): ____ GDR will be attempted. Will monitor patient symptoms and behaviors in response to GDR. ___x_ GRD contraindicated. 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 The following psychotropic medication was present on admission: Mirtazapine 7.5mg qhs. Psychotropic medication therapy is indicated for a diagnosis of: Insomnia/depression/appetite loss. Based on my clinical evaluation, continuation of the medication is necessary at this time. Gradual dose reduction plan (select one): ____ GDR will be attempted. Will monitor patient symptoms and behaviors in response to GDR. __x__ GRD contraindicated. 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
--- NOTE | 2025-05-17 15:15 | RAD_ITS ---
PROCEDURE: CHEST PA AND LATERAL 05/17/2025 REASON FOR EXAM: CRACKLES TECHNIQUE: Procedure Code: RADCXR Modality: DX Procedure: CHEST PA AND LATERAL COMPARISON: Prior study dated September 22, 2022. FINDINGS: Hardware: Status post right shoulder replacement. Heart: Cardiomegaly. Mediastinum: Atherosclerotic calcification of the aortic arch. Lungs: Stable blunting of both costophrenic angles posteriorly with mild increased markings at the lung bases suggestive of scarring. Bones: Degenerative changes are identified within the thoracic spine. Osteoarthritis of the left shoulder joint. Status post right shoulder replacement. RAD/Chest PA and Lateral IMPRESSION: Cardiomegaly. Stable blunting of both costophrenic angles with the findings suggestive of mil d scarring at the lung bases. Reading Location: [id number]
--- NOTE | 2025-05-17 15:22 | NURSING ---
pt off unit for xray at this time via bed
[2025-05-17] MEDS: Senna/Docusate Sodium 1 Tablet 2 TABLET PO (21:50)
[2025-05-17] MEDS: MELATONIN 3 MG TABLET PO (22:00)
[2025-05-18 07:11] LABS: Hematocrit 23.0 % (37-47); Hemoglobin 8.0 g/dL (12.0-15.0); Immature Granulocytes Count 0.020 X10^3/uL (0.0-0.0); Mean Corp Hgb Conc 34.8 g/dL (32-36); Mean Corpuscular Volume 95.0 fL (81-99); Mean Platelet Vol. 8.6 fl (6.2-12.0); NRBC Flagged by Analyzer 0 % (0-5); Platelet Count 284 K/mm3 (150-450); RBC Distribution Width CV 14.5 % (11.6-14.6); RBC Distribution Width SD 50.3 fl (35.1-43.9); Red Blood Count 2.42 M/mm3 (4.2-5.4); White Blood Count 6.3 K/mm3 (4.4-11.0)
[2025-05-18 07:34] LABS: Anion Gap 8 (5-15); BUN 12 mg/dL (4-19); BUN/Creat Ratio 30.3 RATIO (10-20); Calcium,Total 8.6 mg/dL (7.6-11.0); Carbon Dioxide 25.1 mmol/L (21.0-32.0); Chloride 95 mmol/L (98-108); Estimated Creatinine Clearance 46.73 ml/min (50-250); Glucose 105 mg/dL (70-99); Potassium 4.4 mmol/L (3.3-5.1)
--- NOTE | 2025-05-18 07:49 | PHA.CONS_ITS ---
Documented by User: James Zacarias 05/18/25 10:35 TCU RX Drug Regimen Review Subjective/Objective Subjective/Objective Subjective: TCU Admission. 84 year old female hospitalized for failure right total hip arthroplasty, underwent revision right total hip arthroplasty 05/14/[address] Jacobs. Admitted to TCU with debility, here for rehabilitation, strengthening, prior to discharge to [facility]. Objective: Allergies venom-honey bee Allergy (Verified 03/05/25 09:46) Hives (YELLOW JACKETS) venom-wasp Allergy (Verified 03/05/25 09:46) Hives naproxen Adverse Reaction (Verified 03/05/25 09:46) Other prednisone Adverse Reaction (Verified 03/05/25 09:46) Other Current Medications Generic Name Dose Route Start Last Admin Trade Name Freq PRN Reason Stop Dose Admin Acetaminophen 1,000 mg 05/17/25 22:00 05/18/25 05:59 Acetaminophen 500 Mg Tablet PO 1,000 mg Q8 RONNIE Administration Aspirin 81 mg 05/17/25 17:00 05/17/25 18:02 Aspirin 81 Mg Tab.Chew PO 06/28/25 17:01 81 mg BIDCM RONNIE Administration Calcium/Vitamin D 1 tablet 05/18/25 08:00 Calcium Carb/Vitamin D 1 Tablet Tablet PO DAILYCM RONNIE Cefadroxil 500 mg 05/17/25 22:00 05/17/25 21:48 Cefadroxil 500 Mg Capsule PO 05/24/25 22:01 500 mg BID RONNIE Administration Celecoxib 200 mg 05/17/25 13:50 Celecoxib 200 Mg Capsule PO QODAY PRN pain 1-10 Dicyclomine HCl 10 mg 05/17/25 16:00 05/18/25 05:59 Dicyclomine 10 Mg Capsule PO 05/27/25 16:01 10 mg BIDAC RONNIE Administration Duloxetine HCl 30 mg 05/18/25 10:00 Duloxetine Hcl 30 Mg Capsule PO DAILY RONNIE Lisinopril 20 mg 05/18/25 10:00 Lisinopril 20 Mg Tablet PO DAILY [facility] Protocol Magnesium Citrate 300 ml 05/17/25 14:51 Magnesium Citrate 300 Ml PO DAILY PRN Constipation Melatonin 3 mg 05/17/25 13:51 05/17/25 22:00 Melatonin 3 Mg Tablet PO 3 mg QHS PRN Administration sleep Mesalamine 1.2 gm 05/18/25 10:00 Mesalamine 1.2 Gm Tablet PO DAILY [facility] Metronidazole 1 applic 05/17/25 15:45 Metronidazole 0.75% 1 Applic Tube TOPICAL BID PRN PRN FACIAL ROSACEA Mirtazapine 7.5 mg 05/17/25 22:00 05/17/25 21:52 Mirtazapine 15 Mg Tablet PO 7.5 mg QHS RONNIE Administration Oxycodone HCl 5 mg 05/17/25 14:51 05/17/25 22:01 Oxycodone 5 Mg Tablet PO 5 mg Q4H PRN PRN Administration Pain Score 6-10 or Pre PT/OT Pantoprazole Sodium 40 mg 05/18/25 10:00 Pantoprazole Sodium 40 Mg Tablet PO DAILY [facility] Polyethylene Glycol 17 gm 05/18/25 10:00 Polyethylene Glycol 3350 17 Gm Packet PO DAILY [facility] Primidone 125 mg 05/17/25 22:00 05/17/25 21:51 Primidone 50 Mg Tablet PO 125 mg BID RONNIE Administration Senna/Docusate Sodium 2 tablet 05/17/25 22:00 05/17/25 21:50 Senna/Docusate Sodium 1 Tablet PO 2 tablet BID RONNIE Administration Tramadol HCl 50 mg 05/17/25 13:51 Tramadol 50 Mg Tablet PO Q6H PRN Pain Score 1-5 or Pre PT/OT Tuberculin PPD 0.1 ml 05/18/25 10:00 Tuberculin,Purif.Prot.Deriv. 50 Tu/Ml Vial ID 05/18/25 10:01 X1 ONE Tuberculin PPD 0.1 ml 05/25/25 10:00 Tuberculin,Purif.Prot.Deriv. 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) Osteoarthritis (Acute) Depression (Acute) Iron deficiency anemia (Acute) Debility (Acute) Essential tremor (Acute) GERD (gastroesophageal reflux disease) (Acute) Anxiety (Acute) Vital Signs Temp Pulse Resp BP Pulse Ox O2 Del Method 98.9 F 60 18 136/75 H 94 Room Air 05/17/25 14:03 05/17/25 14:30 05/17/25 14:30 05/17/25 14:03 05/17/25 14:30 05/17/25 14:30 Oxygen Delivery Method Room Air Weight: 54.601 kg Body Mass Index (BMI) 20.6 Sodium 129 mmol/L (133-145) L 05/18/25 06:59 Potassium 4.4 mmol/L (3.3-5.1) 05/18/25 06:59 Chloride 95 mmol/L (98-108) L 05/18/25 06:59 Carbon Dioxide 25.1 mmol/L (21.0-32.0) 05/18/25 06:59 Anion Gap 8 (5-15) 05/18/25 06:59 BUN 12 mg/dL (4-19) 05/18/25 06:59 Creatinine 0.40 mg/dL (0.70-1.20) L 05/18/25 06:59 Est GFR (MDRD) Non-Af 99 (>60) 05/18/25 06:59 BUN/Creatinine Ratio 30.3 RATIO (10-20) H 05/18/25 06:59 Glucose 105 mg/dL (70-99) H 05/18/25 06:59 Assessment/Plan: 1. Pain - Tylenol 1000mg PO Q8H, Tramadol 50mg PO Q6H PRN pain (1-5) (No doses given at this time), Oxycodone 5mg PO Q4H PRN pain (6-10) (last dose: 05/17 @ 2201), Celebrex 200mg PO QOD PRN pain (1-10) (No doses given at this time). Please monitor PRN doses, pain scale reported in addition to somnolence, respiratory depression, edema, and altered mental status. Current respiratory rate: 16 - Celebrex black box warning: increased risk of serioius cardiovascular events such as ID/stroke and serious GI events such as bleeding - BEERS list medication: may increase the risk of CORIN and decrease of renal function and has the potential to promote fluid retention and/or exacerbate heart failure. 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 2. Bowel - Miralax 17gm PO daily, senna/colace 2 tablets PO BID, Magnesium citrate 300mL PO daily PRN (No doses given at this time). Last bowel movement: 05/17/25. Please monitor for diarrhea/loose stools, electrolyte disturbances, and abdominal pain. Recommend holding bowel regimen if diarrhea develops. Electrolytes, K: 4.4 (05/18), Na: 129 (05/18), Cl: 95 (05/18), Ca: 8.6 (05/18). 3. DVT prophylaxis - Aspirin 81mg PO BIDCM thru 06/28/2025. Please monitor for signs/symptoms of bleeding such as dark tarry stool, blood in the urine (pink tinged), and bleeding from the gums. BEERS list medication: With an increased risk of bleeding and GI ulcers. 4. Calcium deficiency - Calcium D 1 tablet PO daily. Please monitor for risk of falling, and minimize fall risk. Last vitamin D level: 33 (02/20/25). 5. ID - Cefadroxil 500mg PO BID thru 05/24/2025. Please monitor for diarrhea, vomiting, and rash. 6. Ulcerative colitis - Mesalamine 1.2gm PO daily, Bentyl 10mg PO BIDAC thru 05/27/2025. Please monitor for blurred vision, dizziness, dry mouth, constipation, and signs/symptoms of disease flair up. 7. Hypertension - Lisinopril 20mg PO daily. Please monitor for hypotension, unsteadiness when walking, and dizziness. Last BP: 142/71 (05/18). 8. Insomnia - Melatonin 3mg PO QHS PRN (last dose: 05/17 @ 2200). Please monitor for PRN medication usage, agitation, restlessness, and ability to sleep through the night. 9. GERD - Pantoprazole 40mg PO daily. Please monitor for gas, bloating, and breakthrough indigestion. BEERS list medication: increased risk of bone loss/bone fractures. 10. Tremor - Primidone 125mg PO BID. 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 Assessment/Plan for indications treated with psychotropic medications: 1. Depression/insomnia/appetite loss - Mirtazapine 7.5 mg PO QHS Monitor for drowsiness, dizziness or confusion, appetite and body weight (can cause weight gain), dry mouth, abnormal movements/movement disorders (including akathisia, dyskinesia, acute dystonia or restless leg syndrome), suicidal thoughts or behaviors (Boxed Warning). Monitor for constipation. Last documented BM = 05/17/25 Monitor lipids as indicated (can increase serum cholesterol and triglycerides). FLP = T, HDL: 102, LDL: 115, TC: 234 (10/03/24) Monitor blood pressure. BP range since admission = 136/75 (05/17/25) Monitor for orthostatic hypotension, including postural dizziness, syncope or falls. Check orthostatic vital signs if suspicion of orthostasis. 2. Depression - Duloxetine 30 mg PO daily Monitor for diarrhea, nausea, appetite/weight loss, anxiety or drowsiness, suicidal thoughts or behaviors (Boxed Warning), symptoms of bleeding, symptoms of serotonin syndrome (including agitation, confusion, hyperreflexia, rigidity/myoclonus, tremor, tachycardia, tachypnea), sodium levels (last Na = 129 - 05/18/25). Monitor for orthostatic hypotension, including postural dizziness, syncope or falls. Check orthostatic vital signs if suspicion of orthostasis. Montor for hepatotoxicity (abdominal pain, nausea, jaundice, dark urine, AST/ALT as clinically indicated). AST/ALT = 20/18 (03/07/25) Medical chart and medication regimen reviewed. The following medication irregularities or issues were identified: - Please consider ordering a phosphate level with weekly labs as the most recent phos level is from 03/07/25. Date Date of Note: 05/18/25 Documented by User: Dr. Moy Combs MD 05/19/25 08:29 TCU RX Drug Regimen Review Provider Comments Provider responsibility Provider Comments to Recommendations by Pharmacy Agree
[2025-05-18 08:54] LABS: Iron 20 ug/dL (50-170); Iron Binding Capacity,Unsat 108 ug/dL (228-428)
[2025-05-18 09:09] LABS: Osmolality, Serum 270 mOsm/KG (280-301)
[2025-05-18 09:13] LABS: Iron Binding Capacity,Total 128 ug/dL (250-450)
[2025-05-18 09:47] VITALS: BP 142/71; PULSE 64; RESP 16; TEMP 36.4; O2SAT 98
[2025-05-18] MEDS: Calcium Carb/Vitamin D 1 TABLET Tablet PO (09:55)
[2025-05-18] MEDS: Polyethylene Glycol 3350 17 GM PACKET PO (09:55)
[2025-05-18] MEDS: Senna/Docusate Sodium 1 Tablet 2 TABLET PO ×2 (09:56→22:00)
[2025-05-18] MEDS: Tuberculin,Purif.prot.deriv. 50 TU/ML Vial 0.1 ML ID (13:00)
[2025-05-18 15:05] LABS: Osmolality, Urine 260 mOsm/KG
--- NOTE | 2025-05-18 16:09 | NURSING ---
notified dr roy via written communication- urine osmolarity 260-urine sodium 50
[2025-05-19 06:30] LABS: Hematocrit 23.4 % (37-47); Hemoglobin 8.1 g/dL (12.0-15.0)
[2025-05-19 06:57] LABS: Anion Gap 9 (5-15); BUN 12 mg/dL (4-19); BUN/Creat Ratio 28.3 RATIO (10-20); Calcium,Total 8.6 mg/dL (7.6-11.0); Carbon Dioxide 25.5 mmol/L (21.0-32.0); Chloride 99 mmol/L (98-108); Estimated Creatinine Clearance 46.73 ml/min (50-250); Glucose 100 mg/dL (70-99); Potassium 4.4 mmol/L (3.3-5.1)
[2025-05-19 10:14] VITALS: BP 131/65; PULSE 56; RESP 17; TEMP 36.4; O2SAT 96
[2025-05-19] MEDS: Calcium Carb/Vitamin D 1 TABLET Tablet PO (10:19)
[2025-05-19] MEDS: Polyethylene Glycol 3350 17 GM PACKET PO (10:19)
[2025-05-19] MEDS: Senna/Docusate Sodium 1 Tablet 2 TABLET PO (10:20)
--- NOTE | 2025-05-19 18:00 | NURSING ---
notified fay positive hemoccult and hgb 8.1
--- NOTE | 2025-05-19 18:14 | NURSING ---
notified dr monk via text new consult for positive hemoccult and hgb 8.1
[2025-05-20] MEDS: METRONIDAZOLE 0.75% TOPICAL ×2 (05:40→21:25)
[2025-05-20 07:07] LABS: Anion Gap 8 (5-15); BUN 18 mg/dL (4-19); BUN/Creat Ratio 39.3 RATIO (10-20); Calcium,Total 8.9 mg/dL (7.6-11.0); Carbon Dioxide 25.9 mmol/L (21.0-32.0); Chloride 99 mmol/L (98-108); Estimated Creatinine Clearance 46.73 ml/min (50-250); Glucose 96 mg/dL (70-99); Potassium 4.2 mmol/L (3.3-5.1)
--- NOTE | 2025-05-20 07:47 | NURSING ---
family notified of pt having EGD today by DR Veloz, unable to get ahold of Sergei, son in law. spoke with pt brother.
[2025-05-20 07:52] VITALS: BP 152/75; PULSE 62; RESP 16; TEMP 36.2; O2SAT 97
[2025-05-20 08:32] VITALS: BP 152/75; PULSE 62; RESP 16; TEMP 36.2; O2SAT 97; BMI 20.6
[2025-05-20 10:20] VITALS: PULSE 16; RESP 16; O2SAT 97
--- NOTE | 2025-05-20 11:00 | NURSING ---
pt off unit to Endo at this time
--- NOTE | 2025-05-20 12:55 | NURSING ---
Hr Specialist Note: Activity Asset: Aleida Olvera prefers to be called Chuyita. Chuyita is independent in her choice of daily activities. She has her tablet and smartphone she use to scroll the internet and media sites. She will watch tv, read and rest as well. She welcomes visits from h activities therapist and therapy dog when available. Staff will encourage social activities and respect her right to say no.
--- NOTE | 2025-05-20 13:50 | NURSING ---
pt back to unit
[2025-05-20 14:01] VITALS: BP 108/62; PULSE 64; RESP 16; TEMP 36.8; O2SAT 97
--- NOTE | 2025-05-20 14:13 | MDS.RN ---
MDS entry tracker complete, assessed pain.
--- NOTE | 2025-05-20 16:31 | CASEMGMT ---
Social Work SW met with patient to complete initial assessment. Pt remembered this worker by name from previous RU stay. verified contacts. Pt resides at [facility] and is enjoying it, but still adjusting. Pt reports no concerns. SW educated to Medicare benefit. SW will continue to follow for DC planning. - SW received call from Naila PARRY at [place] and provided updates to pt's status. SW to notify at time of DC. Kori Ramirez ELECTRICAL AUTOMATION ENGINEER WINTERIZER
[2025-05-20] MEDS: 0.9% Saline Lock 10 ML Syringe IV (21:26)
[2025-05-20] MEDS: MELATONIN 3 MG TABLET PO (21:35)
[2025-05-20] MEDS: Senna/Docusate Sodium 1 Tablet 2 TABLET PO (21:35)
[2025-05-21] MEDS: METRONIDAZOLE 0.75% TOPICAL ×2 (06:43→23:15)
[2025-05-21 08:24] LABS: Anion Gap 10 (5-15); BUN 20 mg/dL (4-19); BUN/Creat Ratio 40.5 RATIO (10-20); Calcium,Total 8.7 mg/dL (7.6-11.0); Carbon Dioxide 25.6 mmol/L (21.0-32.0); Chloride 99 mmol/L (98-108); Estimated Creatinine Clearance 46.73 ml/min (50-250); Glucose 96 mg/dL (70-99); Potassium 4.9 mmol/L (3.3-5.1)
[2025-05-21 09:32] VITALS: BP 104/65; PULSE 74; RESP 16; TEMP 36.4; O2SAT 97
[2025-05-21] MEDS: Senna/Docusate Sodium 1 Tablet 2 TABLET PO ×2 (09:40→23:19)
[2025-05-21] MEDS: Calcium Carb/Vitamin D 1 TABLET Tablet PO (09:40)
[2025-05-21] MEDS: Polyethylene Glycol 3350 17 GM PACKET PO (09:40)
[2025-05-21] MEDS: 0.9% Saline Lock 10 ML Syringe IV ×2 (09:44→23:24)
[2025-05-21] MEDS: Pneumococcal Vaccine 20 Valent 0.5 ML Syringe IM (09:52)
--- NOTE | 2025-05-21 15:48 | NURSING ---
spoke with Dr Jacobs's nurse regarding pt appt that was scheduled for 05/23 at 1300, nurse stated that the appt was changed to 05/30 @ 0950 & pt needs to arrive surgeon will not let anyone but him to remove dressing from rt hip at f/u appt. wants surgical dressing left in place for 2 wks. will update pt.
[2025-05-21 17:59] VITALS: PULSE 70; RESP 18; O2SAT 99
[2025-05-22 05:02] VITALS: PULSE 75; RESP 16; O2SAT 98
[2025-05-22 10:01] LABS: Hematocrit 25.4 % (37-47); Hemoglobin 8.6 g/dL (12.0-15.0)
[2025-05-22] MEDS: Calcium Carb/Vitamin D 1 TABLET Tablet PO (10:06)
--- NOTE | 2025-05-22 10:07 | CASEMGMT ---
Social Work IDT met with patient and VANESSA for care plan meeting. Discussed patient's progress in PT/OT/SN/RDN. Educated to Medicare benefit. Provided pt/family with written communication of insurance process and copay coverage during stay. Once pt is ready for DC, pt will return to [facility]. Pt has f/u appt on 05/30. SW will continue to follow for DC planning. Kori Ramirez OBSERVER ELECTRICAL PROSPECTING VEST MAKER
[2025-05-22 13:07] VITALS: BP 128/61; PULSE 70; RESP 16; TEMP 36.9; O2SAT 96
[2025-05-22] MEDS: Polyethylene Glycol 3350 17 GM PACKET PO (13:53)
[2025-05-22] MEDS: Senna/Docusate Sodium 1 Tablet 2 TABLET PO (14:02)
[2025-05-22 22:55] VITALS: BP 124/72; PULSE 76; RESP 16; TEMP 37.1; O2SAT 97
[2025-05-23 06:19] VITALS: BP 124/57; PULSE 61; RESP 16; TEMP 36.7; O2SAT 95
[2025-05-23 10:32] VITALS: BP 120/59; PULSE 70; RESP 16; TEMP 36.9; O2SAT 98
[2025-05-23] MEDS: Calcium Carb/Vitamin D 1 TABLET Tablet PO (10:35)
[2025-05-23] MEDS: Polyethylene Glycol 3350 17 GM PACKET PO (10:38)
[2025-05-23] MEDS: Senna/Docusate Sodium 1 Tablet 2 TABLET PO ×2 (10:42→21:59)
[2025-05-24 08:19] LABS: Hematocrit 25.6 % (37-47); Hemoglobin 8.6 g/dL (12.0-15.0); Immature Granulocytes Count 0.040 X10^3/uL (0.0-0.0); Mean Corp Hgb Conc 33.6 g/dL (32-36); Mean Corpuscular Volume 98.8 fL (81-99); Mean Platelet Vol. 8.3 fl (6.2-12.0); NRBC Flagged by Analyzer 0 % (0-5); Platelet Count 536 K/mm3 (150-450); RBC Distribution Width CV 14.7 % (11.6-14.6); RBC Distribution Width SD 53.8 fl (35.1-43.9); Red Blood Count 2.59 M/mm3 (4.2-5.4); White Blood Count 7.4 K/mm3 (4.4-11.0)
--- NOTE | 2025-05-24 08:57 | NURSING ---
Pepper Cutter Note; MDS for 05/24/2025 Complete
[2025-05-24 09:42] LABS: Anion Gap 12 (5-15); BUN 22 mg/dL (4-19); BUN/Creat Ratio 44.1 RATIO (10-20); Calcium,Total 8.9 mg/dL (7.6-11.0); Carbon Dioxide 23.2 mmol/L (21.0-32.0); Chloride 97 mmol/L (98-108); Estimated Creatinine Clearance 46.73 ml/min (50-250); Glucose 88 mg/dL (70-99); Potassium 4.6 mmol/L (3.3-5.1)
[2025-05-24 09:43] VITALS: BP 122/61; PULSE 74; RESP 16; TEMP 36.4; O2SAT 98
[2025-05-24] MEDS: Calcium Carb/Vitamin D 1 TABLET Tablet PO (09:46)
[2025-05-24] MEDS: Polyethylene Glycol 3350 17 GM PACKET PO (09:46)
[2025-05-24] MEDS: Senna/Docusate Sodium 1 Tablet 2 TABLET PO ×2 (09:47→21:41)
[2025-05-24] MEDS: METRONIDAZOLE 0.75% TOPICAL (21:49)
[2025-05-25 08:56] VITALS: BP 111/58; PULSE 61; RESP 17; TEMP 36.7; O2SAT 98
[2025-05-25] MEDS: Calcium Carb/Vitamin D 1 TABLET Tablet PO (09:03)
[2025-05-25] MEDS: METRONIDAZOLE 0.75% TOPICAL ×2 (09:05→20:33)
[2025-05-25] MEDS: Senna/Docusate Sodium 1 Tablet 2 TABLET PO ×2 (09:08→20:35)
[2025-05-25] MEDS: Tuberculin,Purif.prot.deriv. 50 TU/ML Vial 0.1 ML ID (10:43)
[2025-05-26] MEDS: Calcium Carb/Vitamin D 1 TABLET Tablet PO (06:59)
[2025-05-26 07:50] LABS: Anion Gap 9 (5-15); BUN 25 mg/dL (4-19); BUN/Creat Ratio 52.2 RATIO (10-20); Calcium,Total 9.0 mg/dL (7.6-11.0); Carbon Dioxide 25.1 mmol/L (21.0-32.0); Chloride 100 mmol/L (98-108); Estimated Creatinine Clearance 46.73 ml/min (50-250); Glucose 92 mg/dL (70-99); Potassium 4.6 mmol/L (3.3-5.1)
[2025-05-26 09:13] VITALS: BP 114/55; PULSE 66; RESP 18; TEMP 36.6; O2SAT 95
[2025-05-26] MEDS: METRONIDAZOLE 0.75% TOPICAL ×2 (09:20→21:28)
[2025-05-26] MEDS: Senna/Docusate Sodium 1 Tablet 2 TABLET PO ×2 (09:22→21:26)
[2025-05-27 03:59] VITALS: PULSE 84; RESP 16; O2SAT 97
[2025-05-27 08:50] VITALS: BP 123/52; PULSE 68; RESP 16; TEMP 36.8; O2SAT 96
[2025-05-27] MEDS: METRONIDAZOLE 0.75% TOPICAL ×2 (08:55→20:50)
[2025-05-27] MEDS: Calcium Carb/Vitamin D 1 TABLET Tablet PO (09:02)
[2025-05-27] MEDS: Senna/Docusate Sodium 1 Tablet 2 TABLET PO ×2 (09:02→20:44)
[2025-05-28 06:48] VITALS: PULSE 68; O2SAT 97
[2025-05-28 07:40] VITALS: BP 142/75; PULSE 56; RESP 16; TEMP 36.5; O2SAT 97
[2025-05-28] MEDS: Calcium Carb/Vitamin D 1 TABLET Tablet PO (08:03)
[2025-05-28] MEDS: Senna/Docusate Sodium 1 Tablet 2 TABLET PO ×2 (08:05→21:32)
[2025-05-28] MEDS: METRONIDAZOLE 0.75% TOPICAL ×2 (08:05→21:37)
[2025-05-28 14:40] VITALS: BMI 20.8
[2025-05-29 08:21] VITALS: BP 127/65; PULSE 67; RESP 18; TEMP 36.3; O2SAT 96
[2025-05-29] MEDS: METRONIDAZOLE 0.75% TOPICAL ×2 (08:26→20:40)
[2025-05-29] MEDS: Calcium Carb/Vitamin D 1 TABLET Tablet PO (08:27)
[2025-05-29] MEDS: Senna/Docusate Sodium 1 Tablet 2 TABLET PO (08:31)
[2025-05-29] MEDS: FLU VACCINE HIGH DOSE 25-26(65YR UP) 180 MCG/0.5 ML SYRINGE IM (08:45)
--- NOTE | 2025-05-29 14:36 | MDS.RN ---
Information for the MDS was obtained from review of the clinical record, interview of resident, staff, and direct observation of resident?s care.
[2025-05-29 21:00] VITALS: PULSE 76; RESP 18; O2SAT 98
[2025-05-30 08:04] VITALS: BP 136/68; PULSE 62; RESP 16; TEMP 36.6; O2SAT 99
[2025-05-30] MEDS: Calcium Carb/Vitamin D 1 TABLET Tablet PO (08:07)
[2025-05-30] MEDS: Senna/Docusate Sodium 1 Tablet 2 TABLET PO ×2 (08:09→21:46)
[2025-05-30] MEDS: METRONIDAZOLE 0.75% TOPICAL ×2 (08:11→21:58)
--- NOTE | 2025-05-30 08:45 | NURSING ---
pt off unit to appt via WC at this time
[2025-05-30] MEDS: Hydrocortisone 2.5% Crm 1 APPLIC TOPICAL ×2 (12:31→21:59)
[2025-05-30 22:06] VITALS: BP 137/78; PULSE 74; RESP 16; O2SAT 95
[2025-05-31 07:21] LABS: Hematocrit 25.3 % (37-47); Hemoglobin 8.6 g/dL (12.0-15.0); Immature Granulocytes Count 0.030 X10^3/uL (0.0-0.0); Mean Corp Hgb Conc 34.0 g/dL (32-36); Mean Corpuscular Volume 98.4 fL (81-99); Mean Platelet Vol. 8.3 fl (6.2-12.0); NRBC Flagged by Analyzer 0 % (0-5); Platelet Count 484 K/mm3 (150-450); RBC Distribution Width CV 15.4 % (11.6-14.6); RBC Distribution Width SD 55.1 fl (35.1-43.9); Red Blood Count 2.57 M/mm3 (4.2-5.4); White Blood Count 6.4 K/mm3 (4.4-11.0)
[2025-05-31 07:58] LABS: Anion Gap 10 (5-15); BUN 19 mg/dL (4-19); BUN/Creat Ratio 34.7 RATIO (10-20); Calcium,Total 8.7 mg/dL (7.6-11.0); Carbon Dioxide 24.0 mmol/L (21.0-32.0); Chloride 100 mmol/L (98-108); Estimated Creatinine Clearance 46.82 ml/min (50-250); Glucose 93 mg/dL (70-99); Potassium 4.5 mmol/L (3.3-5.1)
[2025-05-31 08:36] VITALS: BP 138/67; PULSE 61; RESP 18; TEMP 36.9; O2SAT 98
[2025-05-31] MEDS: Calcium Carb/Vitamin D 1 TABLET Tablet PO (08:40)
[2025-05-31] MEDS: Senna/Docusate Sodium 1 Tablet 2 TABLET PO ×2 (08:44→20:01)
[2025-05-31 19:31] VITALS: PULSE 65; RESP 18; O2SAT 96
[2025-05-31] MEDS: METRONIDAZOLE 0.75% TOPICAL (20:08)
[2025-06-01 05:20] VITALS: RESP 18
[2025-06-01 08:07] VITALS: BP 127/74; PULSE 61; RESP 17; TEMP 36.9; O2SAT 99
[2025-06-01] MEDS: Calcium Carb/Vitamin D 1 TABLET Tablet PO (08:11)
[2025-06-01] MEDS: Senna/Docusate Sodium 1 Tablet 2 TABLET PO ×2 (08:14→22:03)
[2025-06-02 07:52] VITALS: BP 140/68; PULSE 57; RESP 17; TEMP 36.4; O2SAT 96
[2025-06-02] MEDS: Calcium Carb/Vitamin D 1 TABLET Tablet PO (07:56)
[2025-06-02] MEDS: Senna/Docusate Sodium 1 Tablet 2 TABLET PO ×2 (07:57→21:23)
[2025-06-02] MEDS: Hydrocortisone 2.5% Crm 1 APPLIC TOPICAL ×2 (07:58→21:30)
[2025-06-02 20:11] VITALS: PULSE 68; O2SAT 96
[2025-06-03 06:49] VITALS: PULSE 62; O2SAT 94
[2025-06-03 08:04] VITALS: BP 142/68; PULSE 72; RESP 18; TEMP 35.8; O2SAT 96
[2025-06-03] MEDS: Senna/Docusate Sodium 1 Tablet 2 TABLET PO ×2 (08:08→20:01)
[2025-06-03] MEDS: Calcium Carb/Vitamin D 1 TABLET Tablet PO (08:10)
[2025-06-04 08:22] VITALS: BP 112/72; PULSE 70; RESP 18; TEMP 36.3; O2SAT 99
[2025-06-04] MEDS: Calcium Carb/Vitamin D 1 TABLET Tablet PO (08:26)
[2025-06-04] MEDS: Senna/Docusate Sodium 1 Tablet 2 TABLET PO ×2 (08:30→22:07)
[2025-06-04 14:00] VITALS: BMI 21.7
[2025-06-04 19:56] VITALS: PULSE 62; O2SAT 96
[2025-06-04] MEDS: Hydrocortisone 2.5% Crm 1 APPLIC TOPICAL (22:13)
[2025-06-05 07:46] VITALS: BP 139/69; PULSE 79; RESP 16; TEMP 36.4; O2SAT 97
[2025-06-05] MEDS: Calcium Carb/Vitamin D 1 TABLET Tablet PO (07:48)
[2025-06-05] MEDS: Senna/Docusate Sodium 1 Tablet 2 TABLET PO ×2 (07:51→21:28)
[2025-06-05] MEDS: Polyethylene Glycol 3350 17 GM PACKET PO (07:52)
[2025-06-05] MEDS: METRONIDAZOLE 0.75% TOPICAL ×2 (10:21→21:29)
--- NOTE | 2025-06-05 12:03 | CASEMGMT ---
Social Work ANTHONY reported pt is requesting to set DC date next week. ANUPAMA emailed Stephanie at [place] to send updated clinicals to ensure return and notify of upcoming DC date. - SW spoke with pt to discuss DC date. Pt requesting to DC 06/12. SW agreed. Pt inquiring about transport. SW offered to ask if [facility] can transport. Pt agreed. SW inquired about referring back to [facility]. Pt agreed. Pt appreciative. - ANUPAMA updated [facility] with DC date and inquired about transport. - SW phoned referral to [facility] for PT/OT. They can accept. Plan: DC 06/12 returning to [place] [facility], [facility] PT/OT Kori Ramirez MSW [employer]
--- NOTE | 2025-06-05 12:09 | NURSING ---
R' NOTIFIED OF CASE OF COVID ON UNIT. STATES STAFF DOES NOT NEED TO NOTIFY FAMILY.
--- NOTE | 2025-06-05 20:36 | PCM.DC.SUM ---
Providers Date of Admission: 05/17/25 Primary Care Physician: Dr. 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: Status: Acute Code(s): T84.010A - Broken internal right hip prosthesis, initial encounter (3) Essential (primary) hypertension: Status: Acute Code(s): I10 - Essential (primary) hypertension (4) GERD (gastroesophageal reflux disease): Status: Acute Code(s): K21.9 - Gastro-esophageal reflux disease without esophagitis Qualifiers: Esophagitis presence: esophagitis presence not specified Qualified Code(s): K21.9 - Gastro-esophageal reflux disease without esophagitis (5) Iron deficiency anemia: Status: Acute Code(s): D50.9 - Iron deficiency anemia, unspecified Qualifiers: Iron deficiency anemia type: chronic blood loss Qualified Code(s): D50.0 - Iron deficiency anemia secondary to blood loss (chronic) (6) Osteoarthritis: Status: Acute Code(s): M19.90 - Unspecified osteoarthritis, unspecified site Qualifiers: Osteoarthritis location: multiple joints Osteoarthritis type: primary Qualified Code(s): M15.0 - Primary generalized (osteo)arthritis (7) Essential tremor: Status: Acute Code(s): G25.0 - Essential tremor (8) Ulcerative colitis: Status: Acute Code(s): K51.90 - Ulcerative colitis, unspecified, without complications (9) Depression: Status: Acute Code(s): F32.A - Depression, unspecified Qualifiers: Depression Type: unspecified Qualified Code(s): F32.A - Depression, unspecified (10) Anxiety: Status: Acute Code(s): F41.9 - Anxiety disorder, unspecified Plan 84 year old female with below past medical history hospitalized for failure right total hip arthroplasty, underwent revision right total hip arthroplasty 05/14/[address] Jacobs, admitted to TCU with debility, here for rehabilitation, strengthening, prior to discharge to [facility]. Debility - PT/OT. Pain - Tylenol 1000mg q8, Tramadol 50mg q6 prn pain (1-5), Oxycodone 5mg q4 prn pain (6-10), Celebrex 200mg qod prn pain (1-10). Bowel - Miralax 17gm daily, senna/colace 2 tablets bid, Magnesium citrate 300mL daily prn. Adult immunization - Administer pneumonia vaccine, covid vaccine, flu vaccine as appropriate. DVT prophylaxis - Aspirin 81mg bid thru 06/28/2025. Calcium deficiency - Calcium D 1 tablet daily. ID - Cefadroxil 500mg bid thru 05/24/2025. Ulcerative colitis - Mesalamine 1.2gm daily, Bentyl 10mg bidac thru 05/27/2025. Hypertension - Lisinopril 20mg dlaiy. Insomnia - Melatonin 3mg qhs prn. GERD - Pantoprazole 40mg daily. Tremor - Primidone 125mg bid. The following psychotropic medication was present on admission: Duloxetine 30mg daily. Psychotropic medication therapy is indicated for a diagnosis of: Depression. Based on my clinical evaluation, continuation of the medication is necessary at this time. Gradual dose reduction plan (select one): ____ GDR will be attempted. Will monitor patient symptoms and behaviors in response to GDR. ___x_ GRD contraindicated. Reason contraindicated: stable chronic halfway use. The following psychotropic medication was present on admission: Mirtazapine 7.5mg qhs. Psychotropic medication therapy is indicated for a diagnosis of: Insomnia/depression/appetite loss. Based on my clinical evaluation, continuation of the medication is necessary at this time. Gradual dose reduction plan (select one): ____ GDR will be attempted. Will monitor patient symptoms and behaviors in response to GDR. __x__ GRD contraindicated. Reason contraindicated: stable chronic halfway use. Medications at Discharge Home Medications lisinopril 20 mg tablet 20 mg PO DAILY blood pressure 10/23/21 calcium 600 mg (as carbonate)-vitamin D3 5 mcg (200 unit) tablet 1 tab PO DAILY supplement 09/20/22 celecoxib 200 mg capsule 200 mg PO QODAY PRN pain 06/12/24 primidone 50 mg tablet 125 mg PO BID.TCU Essential Tremor 06/12/24 duloxetine 30 mg capsule,delayed release 30 mg PO DAILY Depression 03/06/25 mirtazapine 15 mg tablet 7.5 mg (1/2 x 15 mg) PO QHS sleep/appetitie 7 days #4 tabs 03/18/25 mesalamine 1.2 gram tablet,delayed release 1.2 g PO DAILY IBS 90 days #90 tabs 04/22/25 dicyclomine 10 mg capsule 10 mg PO BID IBS 30 days #60 caps 05/13/25 melatonin 3 mg tablet 3 mg PO QHS PRN sleep 05/17/25 acetaminophen 500 mg tablet 1,000 mg (2 x 500 mg) PO Q8 #0 tabs 06/05/25 aspirin 81 mg chewable tablet 81 mg PO BIDCM 23 days #0 tabs 06/05/25 pantoprazole 40 mg tablet,delayed release 40 mg PO BID 30 days #60 tabs 06/05/25 sucralfate 1 gram tablet 1 g PO 1HR_ACHS 30 days #120 tabs 06/05/25 Hospital Course Operations - (See below.) Procedures EGD Summary of Care Provided Minutes Spent on Discharge: 35 Hospital Course: 84 year old female with below past medical history hospitalized for failure right total hip arthroplasty, underwent revision right total hip arthroplasty 05/14/[address] Jacobs, admitted to TCU with debility, here for rehabilitation, strengthening, prior to discharge to [facility]. 05/20/2025 Dr. Veloz EGD: Impression: - Normal esophagus. - Normal stomach. - Two non-bleeding angiodysplastic lesions in the duodenum. Treated with a heater probe. - Two non-bleeding angiodysplastic lesions in the jejunum. Treated with a heater probe. - No specimens collected. Recommendation: - Discharge patient to home. - Resume previous diet. - Continue present medications. Discharge 06/12/2025 returning to [facility], [facility] PT/OT. Physical Exam Const alert General Appearance: cooperative HEENT normocephalic Eyes PERRL and EOMs intact bilaterally Neck supple, no JVD and no carotid bruits Resp normal respiratory effort, normal air movement and clear to auscultation bilaterally Cardio regular rate and regular rhythm GI normal to inspection, nondistended, normoactive bowel sounds, non-tender and non-distended Extremity normal capillary refill General Extremity: Negative for edema Skin no rashes or lesions noted General Skin Exam: no breakdown Psych affect normal Appearance: appropriate Weight / BMI Weight Weight: 57.334 kg Body Mass Index (BMI) 21.7 ABG / Lab / Microbiology Data 05/31/25 07:04 05/31/25 07:04 Microbiology: Microbiology 05/19/25 08:40 Stool Stool Occult Blood (TERRI) - Final Occult Blood Positive D/C Instructions Discharge Activity: Return to Normal Activity, May Shower and Use Walker Weight Bearing Status: Weight bearing as tolerated Call your doctor if you observe: Fever of 101 or Higher, Inability to urinate, Inability to have a bowel movement, Shortness of breath, Dizziness, Fainting spells, Swelling in the ankles, Chest pain and Uncontrolled pain DC O2, CPAP, BIPAP Needs Home O2 Discharge instructions: No Additional Instructions: Discharge 06/12/2025 returning to [facility] PT/OT. Please Follow Up With: Artis Jacobs Ortho surgeon When: As scheduled. Meaningful Use Info Meaningful Use Meaningful Use Diagnoses (Choose all that apply): None applicable Discharge Plan Admission Admit Date/Time: 05/17/25 13:10 Primary Reason for Your Visit: Debility. Attending Provider: Moy Combs Chi Primary Care Provider: Rolf Peck Consulting Providers: Demarco Veloz Instructions Additional Instructions / Restrictions: Discharge 06/12/2025 returning to [facility] PT/OT. Discharge Orders/Prescriptions Prescriptions: New sucralfate 1 gram Tablet 1 g PO 1HR_ACHS 30 Days Qty: 120 0RF acetaminophen 500 mg Tablet 1,000 mg PO Q8 Qty: 0 0RF pantoprazole 40 mg Tablet,Delayed Release (Dr/Ec) 40 mg PO BID 30 Days Qty: 60 0RF aspirin 81 mg Tablet,Chewable 81 mg PO BIDCM 23 Days Qty: 0 0RF Continued lisinopril 20 mg tablet 20 mg PO DAILY calcium carbonate-vitamin D3 600 mg-5 mcg (200 unit) Tablet 1 tab PO DAILY celecoxib 200 mg capsule 200 mg PO QODAY PRN (Reason: pain) primidone 50 mg tablet 125 mg PO BID.TCU Patient Comments: 25mg by mouth once daily at bedtime for essential tremor duloxetine 30 mg capsule,delayed release(DR/EC) 30 mg PO DAILY mirtazapine 15 mg Tablet 7.5 mg PO QHS 7 Days Qty: 4 0RF Rx Instructions: TAKE AT BEDTIME melatonin 3 mg Tablet 3 mg PO QHS PRN (Reason: sleep) Rx Instructions: TAKE ONE HOUR BEFORE BEDTIME mesalamine 1.2 gram tablet,delayed release (DR/EC) 1.2 g PO DAILY 90 Days Qty: 90 2RF dicyclomine 10 mg capsule 10 mg PO BID 30 Days Qty: 60 3RF Discontinued pantoprazole 40 mg Tablet,Delayed Release (Dr/Ec) 40 mg PO DAILY Qty: 30 0RF ferrous sulfate [Feosol] 325 mg (65 mg iron) tablet 325 mg PO DAILY acetaminophen 500 mg tablet 1,000 mg PO Q8 PRN (Reason: pain) Arthritis Pain Compound 2 click topical 0600,2200 7 Days Qty: 60 0RF Rx Instructions: APPLY USING A FINGER TIP AMOUNT TO AFFECTED AREA(S) UP TO 3 TIMES A DOAY sennosides-docusate sodium [Stimulant Laxative Plus] 8.6-50 mg Tablet 2 tab PO BID 7 Days Qty: 28 0RF Rx Instructions: PLEASE TAKE LONG YOU ARE TAKING OPIOID PAIN MEDICATIONS acetaminophen 325 mg tablet 650 mg PO Q4H PRN (Reason: pain (1-10)) aspirin [Adult Aspirin Regimen] 81 mg tablet,delayed release (DR/EC) 81 mg PO BID.TCU Rx Instructions: x 6 weeks cefadroxil 500 mg capsule 500 mg PO Q12H tramadol 50 mg tablet 50 mg PO Q6H PRN (Reason: pain (scale score 7-10)) polyethylene glycol 3350 [Miralax] 17 gram/dose powder 17 g PO DAILY oxycodone 5 mg Tablet 5 mg PO Q6H PRN (Reason: HIP PAIN ) Referrals / Follow Up: Rolf Peck MD [Primary Care Provider, Family Practice] - 06/19/25 Referral Note: pt has time Disposition Disposition (needs filled in before D/C Order can be placed): Assisted Living
[2025-06-06 09:23] VITALS: BP 126/57; PULSE 67; RESP 16; TEMP 37.1; O2SAT 96
[2025-06-06] MEDS: Calcium Carb/Vitamin D 1 TABLET Tablet PO (09:25)
[2025-06-06] MEDS: Senna/Docusate Sodium 1 Tablet 2 TABLET PO ×2 (09:32→20:14)
[2025-06-06] MEDS: Polyethylene Glycol 3350 17 GM PACKET PO (09:33)
[2025-06-06 18:25] VITALS: PULSE 65; RESP 16; O2SAT 98
--- NOTE | 2025-06-06 18:29 | NURSING ---
Addendum entered by Justina Ward 06/07/25 06:47: correction: pt DC to [facility] on 06/12 Original Note: Foam dressing changed to RT medial foot redness to protect. bandaid to LT pinky toe to protect thick painful toe nail. pt states she visits dr berumen at [facility].
[2025-06-07] MEDS: Hydrocortisone 2.5% Crm 1 APPLIC TOPICAL (05:29)
[2025-06-07 05:30] VITALS: PULSE 71; RESP 16; O2SAT 97
[2025-06-07 06:56] LABS: Hematocrit 26.9 % (37-47); Hemoglobin 9.0 g/dL (12.0-15.0); Immature Granulocytes Count 0.020 X10^3/uL (0.0-0.0); Mean Corp Hgb Conc 33.5 g/dL (32-36); Mean Corpuscular Volume 98.5 fL (81-99); Mean Platelet Vol. 8.9 fl (6.2-12.0); NRBC Flagged by Analyzer 0 % (0-5); Platelet Count 372 K/mm3 (150-450); RBC Distribution Width CV 15.3 % (11.6-14.6); RBC Distribution Width SD 55.6 fl (35.1-43.9); Red Blood Count 2.73 M/mm3 (4.2-5.4); White Blood Count 5.9 K/mm3 (4.4-11.0)
[2025-06-07 07:32] LABS: Anion Gap 10 (5-15); BUN 21 mg/dL (4-19); BUN/Creat Ratio 41.4 RATIO (10-20); Calcium,Total 8.9 mg/dL (7.6-11.0); Carbon Dioxide 24.2 mmol/L (21.0-32.0); Chloride 100 mmol/L (98-108); Estimated Creatinine Clearance 46.82 ml/min (50-250); Glucose 100 mg/dL (70-99); Potassium 4.5 mmol/L (3.3-5.1)
[2025-06-07 07:33] VITALS: BP 151/75; PULSE 58; RESP 18; TEMP 36.8; O2SAT 97
[2025-06-07] MEDS: Polyethylene Glycol 3350 17 GM PACKET PO (07:34)
[2025-06-07] MEDS: Calcium Carb/Vitamin D 1 TABLET Tablet PO (07:34)
[2025-06-07] MEDS: Senna/Docusate Sodium 1 Tablet 2 TABLET PO (07:35)
[2025-06-08 08:13] VITALS: BP 142/71; PULSE 67; RESP 18; TEMP 36.4; O2SAT 97
[2025-06-08] MEDS: Calcium Carb/Vitamin D 1 TABLET Tablet PO (08:17)
[2025-06-08] MEDS: Senna/Docusate Sodium 1 Tablet 2 TABLET PO ×2 (08:21→20:21)
[2025-06-08 20:15] VITALS: PULSE 67; RESP 18; O2SAT 95
[2025-06-08] MEDS: Hydrocortisone 2.5% Crm 1 APPLIC TOPICAL (20:22)
--- NOTE | 2025-06-08 20:28 | NURSING ---
Administered HS medications at this time per pt request
[2025-06-09 08:48] VITALS: BP 134/71; PULSE 63; RESP 18; TEMP 36; O2SAT 96
[2025-06-09] MEDS: Calcium Carb/Vitamin D 1 TABLET Tablet PO (08:51)
[2025-06-09] MEDS: Senna/Docusate Sodium 1 Tablet 2 TABLET PO ×2 (08:58→21:55)
[2025-06-09 10:00] VITALS: RESP 18
[2025-06-10] MEDS: Calcium Carb/Vitamin D 1 TABLET Tablet PO (08:19)
[2025-06-10] MEDS: Senna/Docusate Sodium 1 Tablet 2 TABLET PO ×2 (08:22→21:52)
--- NOTE | 2025-06-10 14:37 | NURSING ---
Offered covid vaccine, VIS provided. Resident declines.
[2025-06-10 16:00] VITALS: BP 126/72; PULSE 60; RESP 17; TEMP 36.7; O2SAT 97
[2025-06-10] MEDS: Hydrocortisone 2.5% Crm 1 APPLIC TOPICAL (21:52)
[2025-06-10 22:00] VITALS: PULSE 65; RESP 16; O2SAT 94
[2025-06-11 08:08] VITALS: BP 142/70; PULSE 64; RESP 16; TEMP 36.2; O2SAT 98
[2025-06-11] MEDS: Calcium Carb/Vitamin D 1 TABLET Tablet PO (08:12)
[2025-06-11] MEDS: Senna/Docusate Sodium 1 Tablet 2 TABLET PO ×2 (08:14→21:28)
--- NOTE | 2025-06-11 08:46 | CASEMGMT ---
Social Work SW completed BIMS () and PHQ-2 () for MDS assessment. Kori Ramirez [employer]
[2025-06-11] MEDS: METRONIDAZOLE 0.75% TOPICAL ×2 (09:42→21:38)
[2025-06-11] MEDS: Hydrocortisone 2.5% Crm 1 APPLIC TOPICAL ×2 (09:42→21:30)
[2025-06-11 13:19] VITALS: BMI 21.3
[2025-06-11] MEDS: Polyethylene Glycol 3350 17 GM PACKET PO (13:49)
[2025-06-11 15:00] VITALS: RESP 17
[2025-06-12 06:58] VITALS: PULSE 71; RESP 16; O2SAT 96
[2025-06-12 09:54] VITALS: BP 146/83; PULSE 67; RESP 17; TEMP 37.1; O2SAT 99
[2025-06-12] MEDS: Calcium Carb/Vitamin D 1 TABLET Tablet PO (09:55)
[2025-06-12] MEDS: Senna/Docusate Sodium 1 Tablet 2 TABLET PO (09:58)
== END 2025-06-12 10:05 | disposition home health service (06) | DRG 949 ==
PROVIDERS: Admitting Provider Family Medicine Geriatric Medicine; PCP Family Medicine; Referring Provider Family Medicine Geriatric Medicine; Visit Provider Family Medicine Geriatric Medicine
DX: T84.020D Dislocation of internal right hip prosthesis, subsequent encounter (principal); K51.90 Ulcerative colitis, unspecified, without complications; D50.0 Iron deficiency anemia secondary to blood loss (chronic); I10 Essential (primary) hypertension; F32.A Depression, unspecified; M15.0 Primary generalized (osteo)arthritis; F41.9 Anxiety disorder, unspecified; K21.9 Gastro-esophageal reflux disease without esophagitis; G25.0 Essential tremor; R19.5 Other fecal abnormalities; K31.819 Angiodysplasia of stomach and duodenum without bleeding; Z79.899 Other long term (current) drug therapy; G47.00 Insomnia, unspecified; Z87.891 Personal history of nicotine dependence; Y79.2 Prosthetic and other implants, materials and accessory orthopedic devices associated with adverse incidents; Z79.82 Long term (current) use of aspirin; Z23 Encounter for immunization; R21 Rash and other nonspecific skin eruption; K55.20 Angiodysplasia of colon without hemorrhage
CPT/HCPCS: 36415; 71046; 80048; 82274; 83540; 83550; 83930; 83935; 84100; 84300; 85014; 85018; 85025; 87811; 90677; 97110; 97116; 97162; 97166; 97530; 97535; 97802; A4216

== ENCOUNTER 2025-05-20 11:19 | Day surgery (SDC) | payer MEDICARE, OTHER, SELFPAY ==
[2025-05-20] VITALS (7 sets, daily range): BP systolic 100–141; BP diastolic 61–66; PULSE 64–72; RESP 14–16; TEMP 36.1–36.4; O2SAT 95–99; BMI 19.2
--- NOTE | 2025-05-20 11:27 | PCM.HP.STD ---
HPI - General General Date of Admission: 05/20/25 Date of Service: 05/20/25 Chief Complaint: Anemia HPI Narrative GEORGINA LEONARD, is a 84 F who presented to the ED with hip pain. She has a past medical history of previous right total hip arthroplasty as well as previous dislocation a few months ago presents with right hip pain that she has had since of last week. She states that she has been doing physical therapy and has been doing well walking with a walker. However, she started having the feeling that her right hip was coming in and out of place. She called her orthopedic surgeon from out of town and they told her that she needed to be evaluated. She presents from [facility] with pain in her right hip that is worse with movement. She states it feels different and does not feel completely dislocated. No recent falls. Timeline : 05/14/2025 Dr. Jacobs performed revision right total hip arthroplasty, posterior approach. 05/15/2025 Hemoglobin 11.2 to 8.5. Fall, weight bearing right lower extremity. [facility] Medical History Liver lesion, right lobe GI bleed Fracture, intertrochanteric, right femur Osteoarthritis Depression Essential tremor Ovarian cyst, right History of iron deficiency anemia Hyponatremia History of SIADH Contusion of right wrist Acute lower gastrointestinal bleeding History of echocardiogram Wears glasses Post-menopausal Anxiety Alcohol use History of steroid therapy Ambulates with cane Arthritis Back pain Migraine headache Constipation Former smoker Leg cramps History of pain when walking History of fracture of leg Hypertension Home Medications ?Medication ?Instructions ?Recorded ?Last Taken ?Type lisinopril 20 mg tablet 20 mg PO DAILY blood pressure 10/23/21 05/20/25 History calcium 600 mg (as 1 tab PO DAILY supplement 09/20/22 05/19/25 History carbonate)-vitamin D3 5 mcg (200 unit) tablet pantoprazole 40 mg tablet,delayed 40 mg PO DAILY reflux #30 tabs 12/13/23 05/20/25 Rx release ferrous sulfate 325 mg (65 mg 325 mg PO DAILY supplement 03/07/24 Unknown History iron) tablet (Feosol) celecoxib 200 mg capsule 200 mg PO QODAY PRN pain 06/12/24 Unknown History primidone 50 mg tablet 125 mg PO BID.TCU Essential Tremor 06/12/24 05/19/25 History acetaminophen 500 mg tablet 1,000 mg PO Q8 PRN pain 03/06/25 Unknown History duloxetine 30 mg capsule,delayed 30 mg PO DAILY Depression 03/06/25 05/19/25 History release Arthritis Pain Compound 2 click topical 0600,2200 7 days 03/18/25 Unknown Rx #60 GMS mirtazapine 15 mg tablet 7.5 mg (1/2 x 15 mg) PO QHS 03/18/25 Unknown Rx sleep/appetitie 7 days #4 tabs sennosides 8.6 mg-docusate sodium 2 tab PO BID 7 days #28 tabs 03/18/25 Unknown Rx 50 mg tablet (Stimulant Laxative Plus) mesalamine 1.2 gram tablet,delayed 1.2 g PO DAILY IBS 90 days #90 tabs 04/22/25 05/19/25 Rx release dicyclomine 10 mg capsule 10 mg PO BID IBS 30 days #60 caps 05/13/25 05/20/25 Rx acetaminophen 325 mg tablet 650 mg PO Q4H PRN pain (1-10) 05/17/25 05/20/25 History aspirin 81 mg tablet,delayed 81 mg PO BID.TCU post surgery 05/17/25 05/19/25 History release (Adult Aspirin Regimen) cefadroxil 500 mg capsule 500 mg PO Q12H post surgery ATB 05/17/25 Unknown History melatonin 3 mg tablet 3 mg PO QHS PRN sleep 05/17/25 Unknown History oxycodone 5 mg tablet 5 mg PO Q6H PRN HIP PAIN 05/17/25 05/20/25 History polyethylene glycol 3350 17 17 g PO DAILY bowels 05/17/25 Unknown History gram/dose oral powder (Miralax) tramadol 50 mg tablet 50 mg PO Q6H PRN pain (scale score 05/17/25 Unknown History 7-10) Allergy/AdvReac Type Severity Reaction Status Date / Time venom-honey bee Allergy Hives Verified 05/20/25 11:25 venom-wasp Allergy Hives Verified 05/20/25 11:25 naproxen AdvReac Other Verified 05/20/25 11:25 prednisone AdvReac Other Verified 05/20/25 11:25 Surgical History H/O shoulder replacement Hx of right cataract extraction Hx of left cataract extraction Hx of colonoscopy Social History adopted: No household members: none housing: assisted living facility number of children: 1 current occupational status: retired Smoking Status: Former smoker alcohol intake: current alcohol intake frequency: holidays/special occasions only seatbelt use: always do you feel safe at home: Yes additional social history: ROS Constitutional Constitutional: Denies fatigue, fever(s), poor appetite, weight gain or weight loss Gastrointestinal Gastrointestinal: Denies belching, bloating, change in bowel habits, change in stool character, chewing difficulty, coffee ground emesis, constipation, cramping, diarrhea, dyspepsia, dysphagia, early satiety, excessive flatus, fecal incontinence, heartburn, hematemesis, hematochezia, hemorrhoids, loose stools, melena, nausea, odynophagia, rectal bleeding, tenesmus, vomiting or weight changes Physical Exam Const alert, oriented x3, no apparent distress and healthy appearing General Appearance: cooperative GI normal to inspection, nondistended, normoactive bowel sounds, soft to palpation, non-tender and non-distended Percussion: normal to percussion Rectal Exam: deferred Assessment & Plan Assessment/Plan (1) GI bleed: QUALIFIERS: GI bleed type/associated pathology: anorectal hemorrhage Qualified Code(s): K62.5 - Hemorrhage of anus and rectum (2) Adverse drug reaction: QUALIFIERS: Encounter type: initial encounter Qualified Code(s): T50.905A - Adverse effect of unspecified drugs, medicaments and biological substances, initial encounter (3) Liver lesion, right lobe: (4) History of ischemic colitis: (5) Back pain: QUALIFIERS: Back pain location: low back pain Chronicity: chronic Back pain laterality: unspecified Sciatica presence: without sciatica Qualified Code(s): M54.50 - Low back pain, unspecified; G89.29 - Other chronic pain (6) Chronic constipation: (7) GERD (gastroesophageal reflux disease): QUALIFIERS: Esophagitis presence: esophagitis presence not specified Qualified Code(s): K21.9 - Gastro-esophageal reflux disease without esophagitis PLAN: Plan Very pleasant 84-year-old with Recurrent LGIB and anemia with maroon-colored stools with elevated BUN of 28 mg/dL and creatinine of 0.65 mg/dL present on admission. There is abnormal GI blood losses. She should be okay EGD with push enteroscopy and possibly a capsule study. She will also be colonoscopy if she can tolerate the prep to identify source of recurrent GI blood loss.
[2025-05-20] MEDS: Lactated Ringers 1,000 ML 15 ML IV (11:39)
--- NOTE | 2025-05-20 11:45 | PCM.PRE.AN2 ---
ASA Classification* ASA Classification ASA Classification: 3 Assessment & Plan Anesthesia* Anesthesia Assessment Anesthesia Assessment: Discussed sedation and/or anesthesia options, risks, benefits, and alternatives with patient/parents/legal guardian/POA. Questions invited. The patient/parents/legal guardian/POA seems to understand and agrees to proceed with anesthesia plan. Reviewed the physical assessment, medical history, allergy history and patient home medications list prior to surgery/procedure/anesthetic and documented any changes. Performed airway and anesthesia risk assessments. Anesthesia Type Anesthesia Type: MAC Anesthesia Focused Assessment* Temperature: 97.6 F Pulse Rate: 72 Blood Pressure: 141/66 Respiratory Rate: 14 Pulse Ox: 95 Airway Assessment Mouth opens: >3 cm Mallampati Score: II Labs Anesthesia Preop lab: CBC WBC 6.3 K/mm3 (4.4-11.0) 05/18/25 06:59 05/18/25 RBC 2.42 M/mm3 (4.2-5.4) L 05/18/25 06:59 05/18/25 Hgb 8.1 g/dL (12.0-15.0) L 05/19/25 06:20 05/19/25 Hct 23.4 % (37-47) L 05/19/25 06:20 05/19/25 Plt Count 284 K/mm3 (150-450) 05/18/25 06:59 05/18/25 CHEMISTRY Potassium 4.2 mmol/L (3.3-5.1) 05/20/25 06:31 05/20/25 Sodium 133 mmol/L (133-145) 05/20/25 06:31 05/20/25 Magnesium 1.9 mg/dL (1.5-2.2) 03/07/25 06:08 03/07/25 Phosphorus 3.4 mg/dL (2.7-4.5) 05/20/25 06:31 05/20/25 BUN 18 mg/dL (4-19) 05/20/25 06:31 05/20/25 Creatinine 0.45 mg/dL (0.70-1.20) L 05/20/25 06:31 05/20/25 Glucose 96 mg/dL (70-99) 05/20/25 06:31 05/20/25 POC Glucose 175 mg/dL (74-106) H 03/06/25 16:14 03/06/25 TSH 1.540 uIU/mL (0.300-4.200) 02/20/25 11:26 02/20/25 COAG PT 13.4 SECONDS (11.7-14.9) 06/11/24 23:30 06/11/24 Pre-Assessment Diagnosis/Proposed Procedure Planned Operative Procedure(s): EGD Anesthesia History Anesthesia History - director of 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: Anesthesia History - director of 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 When Was Last Pacemaker Check QUESTION #4 FULL TEXT: You/Your Family Experience fever (hyperthermia) with Anesthesia Last Oral Intake Last Oral intake: Last Oral Intake NPO since 00:00 05/20/25 11:27 Meds taken in AM with sips of water? Meds patient instructed to take am of surgery PONV PONV - director of 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: PONV - director of 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 Female HX of Motion Sickness HX of N/V After Surgery Non-Smoker Duration of Surgery greater than 60 minutes Number of Risk Factors PONV Score Height & Weight Height & Weight: Anesthesia: Height & Weight Height 5 ft 4 in 05/20/25 11:27 Weight: 50.802 kg 05/20/25 11:27 Body Mass Index (BMI) 19.2 05/20/25 11:27 Respiratory Assessment Respiratory Assessment - director of 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: Respiratory Tract Infection Hx - director of 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 Hx Respiratory Tract Infection No 04/13/24 01:18 STOP Sleep Apnea STOP Sleep Apnea - director of 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: STOP Sleep Apnea - director of 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 Hx Hypertension Yes 05/18/25 11:28 Hx Sleep Apnea No 05/17/25 14:03 CPAP BIPAP Do you snore loudly (louder than talking or can be heard Do you often feel tired/ fatigued/ sleepy during daytime? Has anyone observed you stop breathing during sleep? STOP Results QUESTION #5 FULL TEXT : Do you snore loudly (louder than talking or can be heard through closed doors)? 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 Specify any problems Hx of Preganancy in last 3 Months Nurse Filling Out Transfusion & Questions: Date: Time: Patient unable to answer at this time (ie. confused, unrespo /Reproduction History /Reproductive History - director of 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: /Reproductive Hx- director of 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 Hx Now Gestational Age (in weeks): EDC: Hx Hx Para Hx Section SAB No 06/20/24 11:43 Active Medications Active Medications: Current Medications Generic Name Dose Route Start Last Admin Trade Name Freq PRN Reason Stop Dose Admin Lactated Ringer's 1,000 mls @ 15 mls/hr 05/20/25 11:15 05/20/25 11:39 IV 15 mls/hr .Q48H RONNIE Administration PFSH Medical History Liver lesion, right lobe GI bleed Fracture, intertrochanteric, right femur Osteoarthritis Depression Essential tremor Ovarian cyst, right History of iron deficiency anemia Hyponatremia History of SIADH Contusion of right wrist Acute lower gastrointestinal bleeding History of echocardiogram Wears glasses Post-menopausal Anxiety Alcohol use History of steroid therapy Ambulates with cane Arthritis Back pain Migraine headache Constipation Former smoker Leg cramps History of pain when walking History of fracture of leg Hypertension Home Medications ?Medication ?Instructions ?Recorded ?Last Taken ?Type lisinopril 20 mg tablet 20 mg PO DAILY blood pressure 10/23/21 05/20/25 History calcium 600 mg (as 1 tab PO DAILY supplement 09/20/22 05/19/25 History carbonate)-vitamin D3 5 mcg (200 unit) tablet pantoprazole 40 mg tablet,delayed 40 mg PO DAILY reflux #30 tabs 12/13/23 05/20/25 Rx release ferrous sulfate 325 mg (65 mg 325 mg PO DAILY supplement 03/07/24 Unknown History iron) tablet (Feosol) celecoxib 200 mg capsule 200 mg PO QODAY PRN pain 06/12/24 Unknown History primidone 50 mg tablet 125 mg PO BID.TCU Essential Tremor 06/12/24 05/19/25 History acetaminophen 500 mg tablet 1,000 mg PO Q8 PRN pain 03/06/25 Unknown History duloxetine 30 mg capsule,delayed 30 mg PO DAILY Depression 03/06/25 05/19/25 History release Arthritis Pain Compound 2 click topical 0600,2200 7 days 03/18/25 Unknown Rx #60 GMS mirtazapine 15 mg tablet 7.5 mg (1/2 x 15 mg) PO QHS 03/18/25 Unknown Rx sleep/appetitie 7 days #4 tabs sennosides 8.6 mg-docusate sodium 2 tab PO BID 7 days #28 tabs 03/18/25 Unknown Rx 50 mg tablet (Stimulant Laxative Plus) mesalamine 1.2 gram tablet,delayed 1.2 g PO DAILY IBS 90 days #90 tabs 04/22/25 05/19/25 Rx release dicyclomine 10 mg capsule 10 mg PO BID IBS 30 days #60 caps 05/13/25 05/20/25 Rx acetaminophen 325 mg tablet 650 mg PO Q4H PRN pain (1-10) 05/17/25 05/20/25 History aspirin 81 mg tablet,delayed 81 mg PO BID.TCU post surgery 05/17/25 05/19/25 History release (Adult Aspirin Regimen) cefadroxil 500 mg capsule 500 mg PO Q12H post surgery ATB 05/17/25 Unknown History melatonin 3 mg tablet 3 mg PO QHS PRN sleep 05/17/25 Unknown History oxycodone 5 mg tablet 5 mg PO Q6H PRN HIP PAIN 05/17/25 05/20/25 History polyethylene glycol 3350 17 17 g PO DAILY bowels 05/17/25 Unknown History gram/dose oral powder (Miralax) tramadol 50 mg tablet 50 mg PO Q6H PRN pain (scale score 05/17/25 Unknown History 7-10) Allergy/AdvReac Type Severity Reaction Status Date / Time venom-honey bee Allergy Hives Verified 05/20/25 11:25 venom-wasp Allergy Hives Verified 05/20/25 11:25 naproxen AdvReac Other Verified 05/20/25 11:25 prednisone AdvReac Other Verified 05/20/25 11:25 Surgical History H/O shoulder replacement Hx of right cataract extraction Hx of left cataract extraction Hx of colonoscopy Social History adopted: No household members: none housing: assisted living facility number of children: 1 current occupational status: retired Smoking Status: Former smoker alcohol intake: current alcohol intake frequency: holidays/special occasions only seatbelt use: always do you feel safe at home: Yes additional social history: Review of Systems (Anesthesia) ROS Narrative System reviewed and no additional complaints, except as documented.
--- NOTE | 2025-05-20 13:00 | OP.PROVAT_ITS ---
05/20/2025 Rolf Peck [address] [place] [address] Re : Upper GI endoscopy procedure for May Herrera Dear Dr. Peck This procedure was performed on Tuesday, May 20, 2025. My impressions and recommendations are as follows: Impressions : - Normal esophagus. - Normal stomach. - Two non-bleeding angiodysplastic lesions in the duodenum. Treated with a heater probe. - Two non-bleeding angiodysplastic lesions in the jejunum. Treated with a heater probe. - No specimens collected. Recommendations : - Discharge patient to home. - Resume previous diet. - Continue present medications. My findings are described in the full procedure note, which is enclosed. If I can be of further assistance, please feel free to contact me at . Sincerely, Demarco Veloz, 05/20/2025 12:59:56 PM This report has been signed electronically.
--- NOTE | 2025-05-20 13:00 | OP.EGD_ITS ---
Patient Name: Mya Herrera Procedure Date: 05/20/2025 12:42 PM Date of : 1940 Age: 84 Procedure: Upper GI endoscopy Indications: Acute post hemorrhagic anemia, Iron deficiency anemia, Occult blood in stool Providers: Demarco Veloz DO Referring MD: Rolf Peck Medicines: Monitored Anesthesia Care Patient Profile: This is an 84 year old female. Refer to note in patient chart for documentation of history and physical. Patient has symptoms. Complications: No immediate complications. Procedure: Pre-Anesthesia Assessment: - Prior to the procedure, a History and Physical was performed, and patient medications and allergies were reviewed. The patient is competent. The risks and benefits of the procedure and the sedation options and risks were discussed with the patient. All questions were answered and informed consent was obtained. Patient identification and proposed procedure were verified by the physician in the pre-procedure area. Mental Status Examination: alert and oriented. Airway Examination: normal oropharyngeal airway and neck mobility. Respiratory Examination: clear to auscultation. CV Examination: normal. Prophylactic Antibiotics: The patient does not require prophylactic antibiotics. Prior Anticoagulants: The patient has taken no anticoagulant or antiplatelet agents except for NSAID medication. ASA Grade Assessment: II - A patient with mild systemic disease. After reviewing the risks and benefits, the patient was deemed in satisfactory condition to undergo the procedure. The anesthesia plan was to use monitored anesthesia care (MAC). Immediately prior to administration of medications, the patient was re-assessed for adequacy to receive sedatives. The heart rate, respiratory rate, oxygen saturations, blood pressure, adequacy of pulmonary ventilation, and response to care were monitored throughout the procedure. The physical status of the patient was re-assessed after the procedure. After obtaining informed consent, the endoscope was passed under direct vision. Throughout the procedure, the patient's blood pressure, pulse, and oxygen saturations were monitored continuously. The gastroscope was introduced through the mouth, and advanced to the jejunum. Small bowel enteroscopy was deemed necessary. The upper GI endoscopy was accomplished without difficulty. The patient tolerated the procedure well. Scope In: 12:50:12 PM Scope Out: 12:55:03 PM Total Procedure Duration Time 0 hours 4 minutes 51 seconds Findings: The examined esophagus was normal. The entire examined stomach was normal. Two 5 mm angiodysplastic lesions without bleeding were found in the third portion of the duodenum. Coagulation for bleeding prevention using heater probe was successful. Estimated blood loss was minimal. Two 5 mm angiodysplastic lesions without bleeding were found in the jejunum. Coagulation for bleeding prevention using heater probe was successful. Impression: - Normal esophagus. - Normal stomach. - Two non-bleeding angiodysplastic lesions in the duodenum. Treated with a heater probe. - Two non-bleeding angiodysplastic lesions in the jejunum. Treated with a heater probe. - No specimens collected. Recommendation: - Discharge patient to home. - Resume previous diet. - Continue present medications. Procedure Code(s): --- Professional --- 09456, Small intestinal endoscopy, enteroscopy beyond second portion of duodenum, not including ileum; with control of bleeding (eg, injection, bipolar cautery, unipolar cautery, laser, heater probe, stapler, plasma testing shaking shipping) CPT copyright 2021 [employer]. All rights reserved. The codes documented in this report are preliminary and upon visual merchandiser review may be revised to meet current compliance requirements. Demarco Veloz DO 05/20/2025 12:59:56 PM This report has been signed electronically. Number of Addenda: 0 Note Initiated On: 05/20/2025 12:42 PM
--- NOTE | 2025-05-20 13:19 | PCM.POST.ANE ---
Anesthesia: Postop Eval I Current Vital Signs Temperature: 97 F Pulse Rate: 64 Blood Pressure: 105/61 Respiratory Rate: 16 Pulse Ox: 99 Oxygen Delivery Method: Room Air Assessment Airway patent: Yes Spontaneous unlabored respirations: Yes Mental status: Asleep nausea: No Vomiting: No Anesthesia Complication: No Fluid Hydration Crystalloid volume administer (ml): 600 Total IV fluid infused: 600 Progress Note Anesthesia document: Postop Eval 1 completed: Yes
--- NOTE | 2025-05-20 14:10 | PCM.POSTANE2 ---
Anesthesia Postop Eval I Sum Postop Eval Completion status Anesthesia document: Postop Eval 1 completed: Yes Anesthesia Postop Eval I Summary Anesthesia Postop Eval I Summary: Anesthesia Postop Eval I: Assessment Summary Airway patent Yes 05/20/25 13:20 [email or web address] Spontaneous unlabored Yes 05/20/25 13:20 [email or web address] respirations Mental status Asleep 05/20/25 13:20 [email or web address] nausea No 05/20/25 13:20 [email or web address] Vomiting No 05/20/25 13:20 [email or web address] Anesthesia Postop Eval I: Fluid Summary Crystalloid volume administer 600 05/20/25 13:20 [email or web address] (ml) Colloids volume administered ( ml) Blood Product volume administered (ml) Total IV fluid infused 600 05/20/25 13:20 [email or web address] Anesthesia Postop Eval I: Summary Notes Anesthesia Complication No 05/20/25 13:20 [email or web address] Anesthesia Complication Comment: Post-operative progress note Anesthesia: Postop Eval II Evaluation Mental status: Awake Pain Level: 0 nausea: No Vomiting: No
== END 2025-05-20 13:38 | disposition home or self-care (01) ==
LOC: EN 11:20 → AC 11:20
PROVIDERS: PCP Family Medicine; Referring Provider Family Medicine; Visit Provider Internal Medicine Gastroenterology
PROC: 0DJ08ZZ Inspection of Upper Intestinal Tract, Via Natural or Artificial Opening Endoscopic (ICD-10-PCS; CPT 43235; principal; 2025-05-20 12:25)
DX: D62 Acute posthemorrhagic anemia (principal); K62.5 Hemorrhage of anus and rectum; Z87.891 Personal history of nicotine dependence; K21.9 Gastro-esophageal reflux disease without esophagitis; T50.905A Adverse effect of unspecified drugs, medicaments and biological substances, initial encounter; Z79.82 Long term (current) use of aspirin; K76.9 Liver disease, unspecified; Z96.641 Presence of right artificial hip joint; G89.29 Other chronic pain; I10 Essential (primary) hypertension; K59.09 Other constipation; M54.50 Low back pain, unspecified; Z79.899 Other long term (current) drug therapy; G25.0 Essential tremor; Z96.619 Presence of unspecified artificial shoulder joint; Z98.41 Cataract extraction status, right eye; Z98.42 Cataract extraction status, left eye; K63.9 Disease of intestine, unspecified
CPT/HCPCS: 43255; C1889; J2405

== ENCOUNTER → 2025-06-03 | Outpatient (CLI) | payer MEDICARE, OTHER, SELFPAY ==
--- OUTSIDE RECORDS SUMMARY | 2025-05-14 05:13 | XMS RPT_ITS ---
Author Name Auto Generated Organization OHIP Care Team Providers [facility] Name Role Phone DANIE GRACIA MD Attending Unavailable PHYSICIAN, NONE Primary Care Unavailable DANIE GRACIA MD Admitting Unavailable DANIE GRACIA MD Consulting Unavailable DANIE GRACIA MD Attending Unavailable ROSAURA HENDRICKS MD Primary Care Unavailable AIDEN BURNHAM MD Consulting Unavailable HOSPITALIST, ANTONIO Consulting Unavailable SANTANA GARCIA Attending Unavailable ROSAURA HENDRICKS Primary Care Unavailable SANTANA GARCIA Attending Unavailable ROSAURA HENDRICKS Primary Care Unavailable SANTANA GARCIA Attending Unavailable JADON GOULD Referring Unavailable ROSAURA HENDRICKS Primary Care Unavailable PROBLEMS DATE TYPE CONDITION / CODE ATTENDING STATUS [facility] 05/14/2025 Unknown Dislocation of i nternal right hip prosthesis, initial encounter / T84.020A(ICD-10) DANIE GRACIA MD Active [facility] MAIN 05/14/2025 Unknown Acute posthemorr hagic anemia / D62(ICD-10) DANIE GRACIA MD [facility] MAIN 05/14/2025 Unknown 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 05/14/2025 Final Diagnosis (Discharge) Displaced intertrochanteric fracture of right femur, initial encounter for closed fracture / S72.141A(ICD-10) [facility]IL [facility] 05/14/2025 Final Diagnosis (Discharge) Age-related osteoporosis without current pathological fracture / M81.0(ICD-10) [facility]IL [facility] 05/14/2025 Final Diagnosis (Discharge) Anxiety disorder, unspecified / F41.9(ICD-10) [facility]IL [facility] 04/24/2025 Admitting Diagnosis Intra-abdominal and pelvic swelling, mass and lump, unspecified site / R19.00(ICD-10) SANTANA GARCIA [facility] PROCEDURES No Procedure Records Found RESULTS CBC Collected: 5 5:49 AM Status: F Source: [facility] MAIN TYPE CODE TESTS RESULT OUT OF RANGE REFERENCE UNITS LAB WBC(LOINC) WBC 7.2 4.5-10.8 10 3/mcL LAB RBCCT(LOINC) RBC 2.46 Low 4.10-5.30 10 6/mcL LAB HGB(LOINC) Hgb 8.3 Low 12.0-16.0 G/dL LAB HCT(LOINC) Hct 24.0 Low 34.0-46.0 % LAB MCV(LOINC) MCV 97.6 80.0-99.0 fL LAB MCH(LOINC) MCH 33.8 High 27.0-33.0 pg LAB MCHC(LOINC) MCHC 34.6 32.0-36.0 G/dL LAB RDW(LOINC) RDW 15.2 11.5-15.5 % LAB PLT(LOINC) Platelet 279 150-450 10 3/mcL LAB MPV(LOINC) MPV 7.3 6.6-10.5 fL Performed By: #### CBC, GFR, ADIFF, BMP, ANEU #### [place] [address] .AUTO DIFF Collected: 05/17/2025 5:49 AM Status: F Source: [facility] MAIN TYPE CODE TESTS RESULT OUT OF RANGE REFERENCE UNITS LAB LAXMI(LOINC) Neutrophil % 67.1 50.0-75.0 % LAB LYM(LOINC) Lymphocyte % 17.4 Low 20.0-40.0 % LAB MON(LOINC) Monocyte % 9.0 2.0-13.0 % LAB EO(LOINC) Eosinophil % 6.0 0.0-6.0 % LAB BAS(LOINC) Basophil % 0.5 0.0-2.5 % LAB ABLYM(LOINC) Lymphocyte, Absolute 1.3 0.9-4.3 10 3/mcL LAB ARIANA(LOINC) Monocyte, Absolute 0.6 0.1-1.4 10 3/mcL LAB AEOS(LOINC) Eosinophil, Absolute 0.4 0.0-0.7 10 3/mcL LAB ABAS(LOINC) Basophil, Absolute 0.0 0.0-0.3 10 3/mcL Performed By: #### CBC, GFR, ADIFF, BMP, ANEU #### [place] [address] .NEUABS Collected: 5:49 AM Status: F Source: [facility] MAIN TYPE CODE TESTS RESULT OUT OF RANGE REFERENCE UNITS LAB ANEU(LOINC) Neutrophil, Absolute 4.8 2.3-8.1 10 3/mcL Performed By: #### CBC, GFR, ADIFF, BMP, ANEU #### [place] [address] BMP Collected: 05/17/2025 5:49 AM Status: F Source: [facility] MAIN TYPE CODE TESTS RESULT OUT OF RANGE REFERENCE UNITS LAB GLU(LOINC) Glucose Level 92 82-115 mg/dL LAB NA(LOINC) Sodium Level 129 Low 136-145 mEq/L LAB K(LOINC) Potassium Level 4.1 3.5-5.0 mEq/L LAB CL(LOINC) Chloride 95 Low 98-110 mEq/L LAB CO2(LOINC) CO2 28 22-32 mEq/L LAB EBAL(LOINC) Electrolyte Balance 6.0 4.0-15.0 mEq/L LAB BUN(LOINC) BUN 8.0 8.0-22.0 mg/dL LAB CRE(LOINC) Creatinine Lvl (s) 0.47 Low 0.50-1.20 mg/dL Result Comment: Testing perf ormed on [employer] CH analyzer using enzymatic creatinine methodology. LAB BC(LOINC) BUN/Creatinine Ratio 17.0 10.0-22.0 ratio LAB CA(LOINC) Calcium Lvl 8.8 8.7-10.4 mg/dL Performed By: #### CBC, GFR, ADIFF, BMP, ANEU #### [address] [address] .GFR Collected: 05/17/2025 5:49 AM Status: F Source: [facility] MAIN TYPE CODE TESTS RESULT OUT OF RANGE REFERENCE UNITS LAB eGFR(LOINC) Estimated Glomerular Filtration Rate 95 ml/min/1. 73sqm Result Comment: Stages of Chronic Kidney Disease (CKD) Stage Description eGFR(ml/min/1.73 sq.m.) CKD 1 Normal kidney function or >=90 normal kindney function with possible kidney damage (ex. Proteinuria) CKD 2 Kidney damage with mild loss 60-89 of kidney function CKD 3a Mild to moderate loss of kidney 45-59 function CKD 3b Moderate to severe loss of 30-44 of kindey function CKD 4 Severe loss of kidney function 15-29 CKD 5 Kidney failure <15 Note: (go live 2024) the eGFR calculation was updated to the 2020 CKD-EPI creatinine equation without a race factor to calculate the eGFR results. Performed By: #### CBC, GFR, ADIFF, BMP, ANEU #### [address] [address] CBC Collected: 5 3:23 AM Status: F Source: [facility] MAIN TYPE CODE TESTS RESULT OUT OF RANGE REFERENCE UNITS LAB WBC(LOINC) WBC 7.8 4.5-10.8 10 3/mcL LAB RBCCT(LOINC) RBC 2.42 Low 4.10-5.30 10 6/mcL LAB HGB(LOINC) Hgb 8.0 Low 12.0-16.0 G/dL LAB HCT(LOINC) Hct 23.3 Low 34.0-46.0 % LAB MCV(LOINC) MCV 96.4 80.0-99.0 fL LAB MCH(LOINC) MCH 32.9 27.0-33.0 pg LAB MCHC(LOINC) MCHC 34.2 32.0-36.0 G/dL LAB RDW(LOINC) RDW 15.3 11.5-15.5 % LAB PLT(LOINC) Platelet 276 150-450 10 3/mcL LAB MPV(LOINC) MPV 7.1 6.6-10.5 fL Performed By: #### SACHA AN EU, CBC, BMP, GFR #### [address] [address] .AUTO DIFF Collected: 05/16/2025 3:23 AM Status: F Source: [facility] MA[facility] TYPE CODE TESTS RESULT OUT OF RANGE REFERENCE UNITS LAB LAXMI(LOINC) Neutrophil % 73.1 50.0-75.0 % LAB LYM(LOINC) Lymphocyte % 14.3 Low 20.0-40.0 % LAB MON(LOINC) Monocyte % 7.3 2.0-13.0 % LAB EO(LOINC) Eosinophil % 4.8 0.0-6.0 % LAB BAS(LOINC) Basophil % 0.5 0.0-2.5 % LAB ABLYM(LOINC) Lymphocyte, Absolute 1.1 0.9-4.3 10 3/mcL LAB ARIANA(LOINC) Monocyte, Absolute 0.6 0.1-1.4 10 3/mcL LAB AEOS(LOINC) Eosinophil, Absolute 0.4 0.0-0.7 10 3/mcL LAB ABAS(LOINC) Basophil, Absolute 0.0 0.0-0.3 10 3/mcL Performed By: #### SACHA, AN EU, CBC, BMP, GFR #### [address] [address] .NEUABS Collected: 3:23 AM Status: F Source: [facility] MA[facility] TYPE CODE TESTS RESULT OUT OF RANGE REFERENCE UNITS LAB ANEU(LOINC) Neutrophil, Absolute 5.7 2.3-8.1 10 3/mcL Performed By: #### SASHA GONCALVES EU, CBC, BMP, GFR #### [address] [address] BMP Collected: 05/16/2025 3:23 AM Status: F Source: [facility] MA[facility] TYPE CODE TESTS RESULT OUT OF RANGE REFERENCE UNITS LAB GLU(LOINC) Glucose Level 101 82-115 mg/dL LAB NA(LOINC) Sodium Level 132 Low 136-145 mEq/L LAB K(LOINC) Potassium Level 4.0 3.5-5.0 mEq/L LAB CL(LOINC) Chloride 99 98-110 mEq/L LAB CO2(LOINC) CO2 28 22-32 mEq/L LAB EBAL(LOINC) Electrolyte Balance 5.0 4.0-15.0 mEq/L LAB BUN(LOINC) BUN 9.0 8.0-22.0 mg/dL LAB CRE(LOINC) Creatinine Lvl (s) 0.49 Low 0.50-1.20 mg/dL Result Comment: Testing perf ormed on [employer] analyzer using enzymatic creatinine methodology. LAB BC(LOINC) BUN/Creatinine Ratio 18.4 10.0-22.0 ratio LAB CA(LOINC) Calcium Lvl 8.3 Low 8.7-10.4 mg/dL Performed By: #### SASHA GONCALVES EU, CBC, BMP, GFR #### [address] [address] .GFR Collected: 05/16/2025 3:23 AM Status: F Source: [facility] MA[facility] TYPE CODE TESTS RESULT OUT OF RANGE REFERENCE UNITS LAB eGFR(LOINC) Estimated Glomerular Filtration Rate 94 ml/min/1. 73sqm Result Comment: Stages of Chronic Kidney Disease (CKD) Stage Description eGFR(ml/min/1.73 sq.m.) CKD 1 Normal kidney function or >=90 normal kindney function with possible kidney damage (ex. Proteinuria) CKD 2 Kidney damage with mild loss 60-89 of kidney function CKD 3a Mild to moderate loss of kidney 45-59 function CKD 3b Moderate to severe loss of 30-44 of kindey function CKD 4 Severe loss of kidney function 15-29 CKD 5 Kidney failure <15 Note: (go live 2024) the eGFR calculation was updated to the 2020 CKD-EPI creatinine equation without a race factor to calculate the eGFR results. Performed By: #### ADIFF, AN EU, CBC, BMP, GFR #### [address] [address] CBC Collected: 6:23 AM Status: F Source: [facility] MAIN TYPE CODE TESTS RESULT OUT OF RANGE REFERENCE UNITS LAB WBC(LOINC) WBC 7.3 4.5-10.8 10 3/mcL LAB RBCCT(LOINC) RBC 2.55 Low 4.10-5.30 10 6/mcL LAB HGB(LOINC) Hgb 8.5 Low 12.0-16.0 G/dL LAB HCT(LOINC) Hct 24.7 Low 34.0-46.0 % LAB MCV(LOINC) MCV 96.9 80.0-99.0 fL LAB MCH(LOINC) MCH 33.3 High 27.0-33.0 pg LAB MCHC(LOINC) MCHC 34.3 32.0-36.0 G/dL LAB RDW(LOINC) RDW 15.2 11.5-15.5 % LAB PLT(LOINC) Platelet 285 150-450 10 3/mcL LAB MPV(LOINC) MPV 7.2 6.6-10.5 fL Performed By: #### CBC, GFR, ANEU, ADIFF, BMP #### [address] [address] .AUTO DIFF Collected: 05/15/2025 6:23 AM Status: F Source: [facility] MA[facility] TYPE CODE TESTS RESULT OUT OF RANGE REFERENCE UNITS LAB LAXMI(LOINC) Neutrophil % 68.9 50.0-75.0 % LAB LYM(LOINC) Lymphocyte % 19.3 Low 20.0-40.0 % LAB MON(LOINC) Monocyte % 9.0 2.0-13.0 % LAB EO(LOINC) Eosinophil % 2.4 0.0-6.0 % LAB BAS(LOINC) Basophil % 0.4 0.0-2.5 % LAB ABLYM(LOINC) Lymphocyte, Absolute 1.4 0.9-4.3 10 3/mcL LAB ARIANA(LOINC) Monocyte, Absolute 0.7 0.1-1.4 10 3/mcL LAB AEOS(LOINC) Eosinophil, Absolute 0.2 0.0-0.7 10 3/mcL LAB ABAS(LOINC) Basophil, Absolute 0.0 0.0-0.3 10 3/mcL Performed By: #### CBC, GFR, ANEU, ADIFF, BMP #### [place] [address] .NEUABS Collected: 6:23 AM Status: F Source: [facility] MA[facility] TYPE CODE TESTS RESULT OUT OF RANGE REFERENCE UNITS LAB ANEU(LOINC) Neutrophil, Absolute 5.0 2.3-8.1 10 3/mcL Performed By: #### CBC, GFR, ANEU, ADIFF, BMP #### [place] [address] BMP Collected: 05/15/2025 6:23 AM Status: F Source: [facility] MAIN TYPE CODE TESTS RESULT OUT OF RANGE REFERENCE UNITS LAB GLU(LOINC) Glucose Level 95 82-115 mg/dL LAB NA(LOINC) Sodium Level 134 Low 136-145 mEq/L LAB K(LOINC) Potassium Level 4.6 3.5-5.0 mEq/L LAB CL(LOINC) Chloride 101 98-110 mEq/L LAB CO2(LOINC) CO2 26 22-32 mEq/L LAB EBAL(LOINC) Electrolyte Balance 7.0 4.0-15.0 mEq/L LAB BUN(LOINC) BUN 13.0 8.0-22.0 mg/dL LAB CRE(LOINC) Creatinine Lvl (s) 0.58 0.50-1.20 mg/dL Result Comment: Testing perf ormed on [employer] analyzer using enzymatic creatinine methodology. LAB BC(LOINC) BUN/Creatinine Ratio 22.4 High 10.0-22.0 ratio LAB CA(LOINC) Calcium Lvl 8.8 8.7-10.4 mg/dL Performed By: #### CBC, GFR, ANEU, ADIFF, BMP #### [place] [address] .GFR Collected: 05/15/2025 6:23 AM Status: F Source: [facility] MA[facility] TYPE CODE TESTS RESULT OUT OF RANGE REFERENCE UNITS LAB eGFR(LOINC) Estimated Glomerular Filtration Rate 90 ml/min/1. 73sqm Result Comment: Stages of Chronic Kidney Disease (CKD) Stage Description eGFR(ml/min/1.73 sq.m.) CKD 1 Normal kidney function or >=90 normal kindney function with possible kidney damage (ex. Proteinuria) CKD 2 Kidney damage with mild loss 60-89 of kidney function CKD 3a Mild to moderate loss of kidney 45-59 function CKD 3b Moderate to severe loss of 30-44 of kindey function CKD 4 Severe loss of kidney function 15-29 CKD 5 Kidney failure <15 Note: (go live 2024) the eGFR calculation was updated to the 2020 CKD-EPI creatinine equation without a race factor to calculate the eGFR results. Performed By: #### CBC, GFR, ANEU, ADIFF, BMP #### [place] [address] XR PELVIS 1 OR 2 VIEWS Observed: 2:58 PM Status: F Source: [facility] ORIGINAL EXAMINATION: ONE XRAY VIEW OF THE PELVIS 05/14/2025 3:20 pm COMPARISON: None. HISTORY: ORDERING SYSTEM PROVIDED HISTORY: Reason for Exam: Follow Up Arthroplasty FINDINGS: Custom length total right hip prosthesis with multiple cerclage wire fixation noted in the right hip. There is no periprosthetic fracture or loosening. Moderate demineralization affects the skeletal elements. IMPRESSION: 1. Custom length total right hip prosthesis. 2. No acute fracture. Interpreted by: Santana Carranza DO Preliminary Report By: Santana Carranza DO Electronically signed By Santana Carranza DO Dictated Date: 05/15/2025 3:23:15 PM Prelim Date: 05/15/2025 3:23:57 PM Sign Date: 05/15/2025 3:23:57 PM Ordering Provider: DANIE FUENTES Observed: 05/14/2025 2:31 PM Status: F Source: [facility] . MICRO - Microbiology PROCEDURE: Culture Tissue [*1] SOURCE: Tissue BODY SITE: Hip COLLECTED DATE/TIME: 05/14/2025 14:31 EDT RECEIVED DATE/TIME: 05/14/2025 16:18 EDT START DATE/TIME: 05/14/2025 16:18 EDT FREE TEXT SOURCE: RIGHT HIP DEEP CULTURE #1 FINAL REPORTS Final Report [] Verified Date/Time/Personnel: 05/21/2025 07:03 EDT No aerobes or anaerobes isolated at 7 days. PRELIMINARY REPORTS Preliminary Report [] Verified Date/Time/Personnel: 05/15/2025 11:12 EDT No growth to date STAINS GS [] Verified Date/Time/Personnel: 05/14/2025 18:05 EDT No organisms seen. Performing Locations *1: This test was performed at: [address], [address] [place] [address] [place] Observed: 05/14/2025 2:31 PM Status: F Source: [facility] . MICRO - Microbiology PROCEDURE: Culture Tissue [O1 *1] SOURCE: Tissue BODY SITE: Hip COLLECTED DATE/TIME: 05/14/2025 14:31 EDT RECEIVED DATE/TIME: 05/14/2025 16:18 EDT START DATE/TIME: 05/14/2025 16:18 EDT FREE TEXT SOURCE: right hip deep culture #3 FINAL REPORTS Final Report [] Verified Date/Time/Personnel: 05/21/2025 07:04 EDT No aerobes or anaerobes isolated at 7 days. PRELIMINARY REPORTS Preliminary Report [] Verified Date/Time/Personnel: 05/15/2025 11:13 EDT No growth to date STAINS GS [] Verified Date/Time/Personnel: 05/14/2025 18:08 EDT No organisms seen. Order Comments O1: Culture Tissue [id number] Performing Locations *1: This test was performed at: [address], [id number] , [place] Observed: 05/14/2025 2:31 PM Status: F Source: [facility] . MICRO - Microbiology PROCEDURE: Culture Tissue [O1 *1] SOURCE: Tissue BODY SITE: Hip COLLECTED DATE/TIME: 05/14/2025 14:31 EDT RECEIVED DATE/TIME: 05/14/2025 16:18 EDT START DATE/TIME: 05/14/2025 16:18 EDT FREE TEXT SOURCE: RIGHT HIP DEEP CULTURE #2 FINAL REPORTS Final Report [] Verified Date/Time/Personnel: 05/21/2025 07:04 EDT No aerobes or anaerobes isolated at 7 days. PRELIMINARY REPORTS Preliminary Report [] Verified Date/Time/Personnel: 05/15/2025 11:13 EDT No growth to date STAINS GS [] Verified Date/Time/Personnel: 05/14/2025 18:07 EDT No organisms seen. Order Comments O1: Culture Tissue [id number] Performing Locations *1: This test was performed at: [facility], [address] [place] [address], [address] , [place] XR FLUORO 1-2 HRS TECH TIME Observed: 9:30 AM Status: F Source: [facility] MAIN ORIGINAL EXAMINATION: SPOT FLUOROSCOPIC IMAGES 05/14/2025 2:46 pm TECHNIQUE: Fluoroscopy was provided by the radiology department for procedure. Radiologist was not present during examination. FLUOROSCOPY DOSE AND TYPE: Radiation Exposure Index: 17.7 mGy air kerma, fluoroscopy time was 2 minutes and 15.7 seconds. COMPARISON: None HISTORY: ORDERING SYSTEM PROVIDED HISTORY: Reason for Exam: PAIN IN RT HIP Intraprocedural imaging. FINDINGS: 21 intraoperative images show placement of a hip arthroplasty. Detail is limited. IMPRESSION: Limited intraoperative images. Refer to surgical report. Interpreted by: Santana Guardado MD Preliminary Report By: Santana Guardado MD Electronically signed By Santana Guardado MD Dictated Date: 05/14/2025 3:05:13 PM Prelim Date: 05/14/2025 3:06:00 PM Sign Date: 05/14/2025 3:06:00 PM Ordering Provider: DANIE GRACIA CBC Collected: 6:06 AM Status: F Source: [facility] MAIN TYPE CODE TESTS RESULT OUT OF RANGE REFERENCE UNITS LAB WBC(LOINC) WBC 6.3 4.5-10.8 10 3/mcL LAB RBCCT(LOINC) RBC 3.36 Low 4.10-5.30 10 6/mcL LAB HGB(LOINC) Hgb 11.2 Low 12.0-16.0 G/dL LAB HCT(LOINC) Hct 32.5 Low 34.0-46.0 % LAB MCV(LOINC) MCV 96.8 80.0-99.0 fL LAB MCH(LOINC) MCH 33.3 High 27.0-33.0 pg LAB MCHC(LOINC) MCHC 34.4 32.0-36.0 G/dL LAB RDW(LOINC) RDW 15.3 11.5-15.5 % LAB PLT(LOINC) Platelet 327 150-450 10 3/mcL LAB MPV(LOINC) MPV 6.9 6.6-10.5 fL Performed By: #### A1C, CRP, CMP, PRALB, ANEU, ADIFF, ABOGEL, CBC, ABSGEL, FERR, GFR, ESR, PRO, APTT, FES, VIDH #### [address] [address] .AUTO DIFF Collected: 05/14/2025 6:06 AM Status: F Source: [facility] MAIN TYPE CODE TESTS RESULT OUT OF RANGE REFERENCE UNITS LAB LAXMI(LOINC) Neutrophil % 69.2 50.0-75.0 % LAB LYM(LOINC) Lymphocyte % 19.3 Low 20.0-40.0 % LAB MON(LOINC) Monocyte % 8.2 2.0-13.0 % LAB EO(LOINC) Eosinophil % 2.8 0.0-6.0 % LAB BAS(LOINC) Basophil % 0.5 0.0-2.5 % LAB ABLYM(LOINC) Lymphocyte, Absolute 1.2 0.9-4.3 10 3/mcL LAB ARIANA(LOINC) Monocyte, Absolute 0.5 0.1-1.4 10 3/mcL LAB AEOS(LOINC) Eosinophil, Absolute 0.2 0.0-0.7 10 3/mcL LAB ABAS(LOINC) Basophil, Absolute 0.0 0.0-0.3 10 3/mcL Performed By: #### A1C, CRP, CMP, PRALB, ANEU, ADIFF, ABOGEL, CBC, ABSGEL, FERR, GFR, ESR, PRO, APTT, FES, VIDH #### [address] [address] .NEUABS Collected: 6:06 AM Status: F Source: [facility] MA[facility] TYPE CODE TESTS RESULT OUT OF RANGE REFERENCE UNITS LAB ANEU(LOINC) Neutrophil, Absolute 4.4 2.3-8.1 10 3/mcL Performed By: #### A1C, CRP, CMP, PRALB, ANEU, ADIFF, ABOGEL, CBC, ABSGEL, FERR, GFR, ESR, PRO, APTT, FES, VIDH #### [address] [address] APTT Collected: 6:06 AM Status: F Source: [facility] MA[facility] TYPE CODE TESTS RESULT OUT OF RANGE REFERENCE UNITS LAB APTT0(LOINC) APTT 32.2 25.0-35.0 seconds Result Comment: For Heparin anticoagulation therapy, the recommended therapeutic range is: 54-77 seconds (APTT Correlation with Anti-Xa therapeutic range of 0.3-0.7 units/ml). PLEASE REFERENCE THE PHARMACY PROTOCOL FOR DOSING. Performed By: #### A1C, CRP, CMP, PRALB, ANEU, ADIFF, ABOGEL, CBC, ABSGEL, FERR, GFR, ESR, PRO, APTT, FES, VIDH #### [address] [address] PRO Collected: 05/14/2025 6:06 AM Status: F Source: [facility] MA[facility] TYPE CODE TESTS RESULT OUT OF RANGE REFERENCE UNITS LAB PT(LOINC) Protime 11.7 9.0-14.4 seconds Result Comment: Effective , Protime results may be affected by some antibiotics (i.e. Ciprofloxacin, Azithromycin, Bactrim) which may potentiate the action of oral anticoagulants, with further increases in Protime/INR. LAB INR(LOINC) PT International Ratio 1.0 ratio Result Comment: The [employer] (CHEST, 1992, 102:312S- 25S) recommended therapeutic range for oral anticoagulant therapy is: LOW RISK: Prophylaxis of venous thrombosis INR: 2.0-3.0 Treatment of pulmonary embolism 2.0-3.0 Prevention of systemic embolism 2.0-3.0 HIGH RISK: Mechanical prosthetic valves 2.5-3.5 Performed By: #### A1C, CRP, CMP, PRALB, ANEU, ADIFF, ABOGEL, CBC, ABSGEL, FERR, GFR, ESR, PRO, APTT, FES, VIDH #### [address] [address] PRALB Collected: 6:06 AM Status: F Source: [facility] MA[facility] TYPE CODE TESTS RESULT OUT OF RANGE REFERENCE UNITS LAB PRALB(LOINC) Prealbumin 23.3 10.0-40.0 mg/dL Performed By: #### A1C, CRP, CMP, PRALB, ANEU, ADIFF, ABOGEL, CBC, ABSGEL, FERR, GFR, ESR, PRO, APTT, FES, VIDH #### [address] [address] CMP Collected: 05/14/2025 6:06 AM Status: F Source: [facility] MA[facility] TYPE CODE TESTS RESULT OUT OF RANGE REFERENCE UNITS LAB GLU(LOINC) Glucose Level 94 82-115 mg/dL LAB NA(LOINC) Sodium Level 130 Low 136-145 mEq/L LAB K(LOINC) Potassium Level 4.2 3.5-5.0 mEq/L LAB CL(LOINC) Chloride 94 Low 98-110 mEq/L LAB CO2(LOINC) CO2 30 22-32 mEq/L LAB EBAL(LOINC) Electrolyte Balance 6.0 4.0-15.0 mEq/L LAB BUN(LOINC) BUN 13.0 8.0-22.0 mg/dL LAB CRE(LOINC) Creatinine Lvl (s) 0.48 Low 0.50-1.20 mg/dL Result Comment: Testing perf ormed on [employer] analyzer using enzymatic creatinine methodology. LAB BC(LOINC) BUN/Creatinine Ratio 27.1 High 10.0-22.0 ratio LAB CA(LOINC) Calcium Lvl 9.3 8.7-10.4 mg/dL LAB PROT(LOINC) Total Protein 6.2 5.7-8.2 G/dL LAB ALB(LOINC) Albumin Level 3.4 3.2-4.8 G/dL LAB GLB(LOINC) Globulin 2.8 2.5-4.2 G/dL LAB AG(LOINC) A/G Ratio 1.2 0.9-1.6 ratio LAB BILT(LOINC) Bili Total 0.40 0.20-1.20 mg/dL Result Comment: Use of this assay is not recommended for patients undergoing treatment with eltrombopag due to the potential for falsely elevated results. LAB AP(LOINC) Alk Phos 79 38-126 U/L LAB AST(LOINC) AST/SGOT 18 8-34 U/L LAB ALT(LOINC) ALT/SGPT 16 10-49 U/L Performed By: #### A1C, CRP, CMP, PRALB, ANEU, ADIFF, ABOGEL, CBC, ABSGEL, FERR, GFR, ESR, PRO, APTT, FES, VIDH #### [address] [address] FERR Collected: 6:06 AM Status: F Source: [facility] MA[facility] TYPE CODE TESTS RESULT OUT OF RANGE REFERENCE UNITS LAB FERR(LOINC) Ferritin 230.5 8.0-252.0 ng/mL Performed By: #### A1C, CRP, CMP, PRALB, ANEU, ADIFF, ABOGEL, CBC, ABSGEL, FERR, GFR, ESR, PRO, APTT, FES, VIDH #### [address] [address] .GFR Collected: 05/14/2025 6:06 AM Status: F Source: [facility] MA[facility] TYPE CODE TESTS RESULT OUT OF RANGE REFERENCE UNITS LAB eGFR(LOINC) Estimated Glomerular Filtration Rate 95 ml/min/1. 73sqm Result Comment: Stages of Chronic Kidney Disease (CKD) Stage Description eGFR(ml/min/1.73 sq.m.) CKD 1 Normal kidney function or >=90 normal kindney function with possible kidney damage (ex. Proteinuria) CKD 2 Kidney damage with mild loss 60-89 of kidney function CKD 3a Mild to moderate loss of kidney 45-59 function CKD 3b Moderate to severe loss of 30-44 of kindey function CKD 4 Severe loss of kidney function 15-29 CKD 5 Kidney failure <15 Note: (go live 2024) the eGFR calculation was updated to the 2020 CKD-EPI creatinine equation without a race factor to calculate the eGFR results. Performed By: #### A1C, CRP, CMP, PRALB, ANEU, ADIFF, ABOGEL, CBC, ABSGEL, FERR, GFR, ESR, PRO, APTT, FES, VIDH #### [address] [address] CRP Collected: 05/14/2025 6:06 AM Status: F Source: [facility] MA[facility] TYPE CODE TESTS RESULT OUT OF RANGE REFERENCE UNITS LAB CRP(LOINC) C-Reactive Protein 1.1 High 0.0-1.0 mg/dL Performed By: #### A1C, CRP, CMP, PRALB, ANEU, ADIFF, ABOGEL, CBC, ABSGEL, FERR, GFR, ESR, PRO, APTT, FES, VIDH #### [place] [address] FES Collected: 6:06 AM Status: F Source: [facility] MAIN TYPE CODE TESTS RESULT OUT OF RANGE REFERENCE UNITS LAB FE(LOINC) Iron 47 Low 50-170 mcg/dL LAB IBC(LOINC) TIBC 196 Low 250-500 mcg/dL LAB FESAT(LOINC) Iron Sat 24 % Performed By: #### A1C, CRP, CMP, PRALB, ANEU, ADIFF, ABOGEL, CBC, ABSGEL, FERR, GFR, ESR, PRO, APTT, FES, VIDH #### [place] [id number] VIDH Collected: 6:06 AM Status: F Source: [facility] MAIN TYPE CODE TESTS RESULT OUT OF RANGE REFERENCE UNITS LAB VIDH(LOINC) Vit. D 25-Hydroxy 34.2 ng/mL Result Comment: Interpretive Values Based on Total 25(OH)D: Severe Deficiency <20 ng/mL Mild to Moderate Deficiency 20-30 ng/mL Optimum Levels 30-100 ng/mL Toxicity Possible >100 ng/mL Performed By: #### A1C, CRP, CMP, PRALB, ANEU, ADIFF, ABOGEL, CBC, ABSGEL, FERR, GFR, ESR, PRO, APTT, FES, VIDH #### [place] [id number] ESR Collected: 05/14/2025 6:06 AM Status: F Source: [facility] MAIN TYPE CODE TESTS RESULT OUT OF RANGE REFERENCE UNITS LAB ESR(LOINC) Erythrocyte Sed Rate 10 0-30 mm/hr Performed By: #### A1C, CRP, CMP, PRALB, ANEU, ADIFF, ABOGEL, CBC, ABSGEL, FERR, GFR, ESR, PRO, APTT, FES, VIDH #### [address] [id number] ABO/RH (GEL) Collected: 05/14/2025 6:06 AM Status: F Source: [facility] MAIN TYPE CODE TESTS RESULT OUT OF RANGE REFERENCE UNITS LAB ABORH(LOINC) ABO/Rh Interp A NEG Unknown Performed By: #### A1C, CRP, CMP, PRALB, ANEU, ADIFF, ABOGEL, CBC, ABSGEL, FERR, GFR, ESR, PRO, APTT, FES, VIDH #### [address] [id number] ABS (GEL) Collected: 05/14/2025 6:06 AM Status: F Source: [facility] MAIN TYPE CODE TESTS RESULT OUT OF RANGE REFERENCE UNITS LAB ABSCINT(LOINC) ABSC Interp (Gel) Negative ABSC Performed By: #### A1C, CRP, CMP, PRALB, ANEU, ADIFF, ABOGEL, CBC, ABSGEL, FERR, GFR, ESR, PRO, APTT, FES, VIDH #### [address] [address] A1C Collected: 6:06 AM Status: F Source: [facility] TYPE CODE TESTS RESULT OUT OF RANGE REFERENCE UNITS LAB A1C(LOINC) Hgb A1c 5.7 4.0-6.0 % LAB eAG(INC) Est Avg Glucose 117 mg/dL Result Comment: Estimated Av erage Glucose calculated by equation ((28.7xA1C)- 46.7) Estimated average glucose (eAG) is a calculated value from Hemoglobin A1C and is rental sales representative of the average blood glucose level in the last 2-3 month period. Normal range: less than 114 mg/dL Performed By: #### A1C, CRP, CMP, PRALB, ANEU, ADIFF, ABOGEL, CBC, ABSGEL, FERR, GFR, ESR, PRO, APTT, FES, VIDH #### [address] [address] [address] HIP W/O CONTRAST RIGHT Observed: 10/2024 2:00 PM Status: F Source: [facility] ORIGINAL EXAMINATION: CT OF THE RIGHT HIP [...] 05/08/2025 7:49:01 AM Ordering Provider: DANIE GRACIA OFFICE VISIT Observed: 04/24/2025 1:30 PM Status: COMPLETED Source: [employer] [facility] [id number] May Leonard 0 1940 Provider Department Center 04/24/2025 [id number] GARCIA [facility] POWER SYSTEM DISPATCHER None Family History Problem Relation Age of Onset Heart disease Father Rheumatic fever Father Family Status - Relation Status Age at Father Level of Service:04620 ND OFFICE/OUTPATIENT ESTABLISHED MDM 10 MIN Reason for Visit and Comments: Female Problem [263] PROGRESS NOTE Observed: 04/24/2025 1:30 PM Status: COMPLETED Source: [employer] [facility] CC: Enlarging pelvic mass HPI: May Leonard is a pleasant 84 y.o. female who presented in consultation from Dr. Gould for further evaluation and management of persistent [...] done and she was told by her fire equipment inspector helper that the liver lesion is benign. Patient states the left pelvic mass causes no symptoms, denies any pelvic pressure or pain problems with bowel or bladder habits. Denies any vaginal bleeding. He is here today to discuss options for a incidentally found cystic left ovarian mass. Patient underwent repeat ultrasound at [facility] which unfortunately shows growth in the [...] in December. Patient presents today from a fdc facility in a wheelchair as well as [...] Otherwise I did recommend follow-up with Dr. Jean Woods on an annual basis. [1] Past [...] Insecurity: No Food Insecurity (02/21/2024) Received from [facility] Hunger Vital Sign Worried About Running Out of Food in the Last Year: Never true Ran Out of Food in the Last Year: Never true Transportation Needs: No Transportation Needs (02/21/2024) Received from [facility] PRAPARE - Transportation Lack of Transportation (Medical): No Lack of Transportation (Non-Medical): No Housing Stability: Unknown (02/21/2024) Received from [facility] Housing Stability Vital Sign Unable to Pay [...] No current facility-administered medications for this visit. 36 Observed: 03/29/2025 10:45 AM Status: COMPLETED Source: [employer] [facility] Spoke to patient and she sta vidya she does not have sxs of a [...] is not supposed to bend her knee. 36 Observed: 03/29/2025 10:08 AM Status: COMPLETED [facility] Patient would like to know i f she can still have surgery with an immobilizer on her leg. Mentioned she's also having increase in need to urinate and some pressure. Please contact when able, thank you 36 Observed: 02/20/2025 4:09 PM Status: COMPLETED Source[facility] Pt is having more urinary fr equency with cyst. Pt would like to have cyst and both ovaries removed. March 20 pt has shoulder injection with going under anesthesia. Pt states April would be fine to schedule. 36 Observed: 02/20/2025 3:34 PM Status: COMPLETED Source: [facility] Pt returned phone call. [facility] call back when you can. Thank you 36 Observed: 02/20/2025 3:30 PM Status: COMPLETED Source: [facility] Called pt and left vm. 36 Observed: 02/20/2025 3:16 PM Status: COMPLETED Source: [facility] Pt would like to discuss rem oval of cyst and ovary per her last appt conversation with Dr Garcia. Pt concerned about cyst. Please call to discuss. Thank you 36 Observed: 12/25/2024 2:29 PM Status: COMPLETED [facility]: [facility] Patient would like callback to schedule U/S, please contact when able, thank you PROGRESS NOTE Observed: 12/17/2024 11:23 AM Status: COMPLETED Source: [employer] [facility] We want to inform you that y our patient's blood pressure was noted to be elevated in our office today. We thank you for trusting us with your patient's health. Last BP: BP Readings from Last 3 Encounters: 12/17/24 (!) 140/86 09/07/24 (!) 152/78 PROGRESS NOTE Observed: 12/17/2024 10:45 AM Status: COMPLETED Source: [employer] [facility] CC: Enlarging pelvic mass HPI: May Leonard is a pleasant 83 y.o. female who presents in consultation from Dr. Gould for further evaluation and management of persistent [...] done and she was told by her fire equipment inspector helper that the liver lesion is benign. Patient states the left pelvic mass causes no symptoms, denies any pelvic pressure or pain problems with bowel or bladder habits. Denies any vaginal bleeding. He is here today to discuss options for a incidentally found cystic left ovarian mass. History; Patient underwent repeat ultrasound at [facility] which unfortunately shows growth in the size of the lesion. She is here today to discuss treatment options Patient is here today with a procedure analyst. She denies any signs or symptoms of [...] Insecurity: No Food Insecurity (02/21/2024) Received from [facility] Hunger Vital Sign Worried About Running Out of Food in the Last Year: Never true Ran Out of Food in the Last Year: Never true Transportation Needs: No Transportation Needs (02/21/2024) Received from [facility] PRAPARE - Transportation Lack of Transportation (Medical): No Lack of Transportation (Non-Medical): No Housing Stability: Unknown (02/21/2024) Received from [facility] Housing Stability Vital Sign Unable to Pay [...] of radiology reports review of radiology imaging [id number] counseling with patient and coordination of repeat ultrasound was 25 minutes 36 Observed: 12/11/2024 12:42 PM Status: COMPLETED Source: [employer] [facility] Called the result of ultraso und, she would like to have the mass removed. Will set up an appointment in the office 36 Observed: 12/11/2024 9:35 AM Status: COMPLETED Source: [employer] [facility] Patient called back. Wheneve r you get a chance, can you please call her back. Thank you! 36 Observed: 12/11/2024 9:24 AM Status: COMP LETED Source: [facility] [email or web address] PROGRESS NOTE Observed: 09/07/2024 11:00 AM Status: COMPLETED Source: [facility] HPI: May Leonard is a pleasant 83 y.o. female who presents in consultation from Dr. Gould for further evaluation and management of persistent [...] done and she was told by her fire equipment inspector helper that the liver lesion is benign. Patient [...] Insecurity: No Food Insecurity (02/21/2024) Received from [facility] Hunger Vital Sign Worried About Running Out of Food in the Last Year: Never true Ran Out of Food in the Last Year: Never true Transportation Needs: No Transportation Needs (02/21/2024) Received from [facility] PRAPARE - Transportation Lack of Transportation (Medical): No Lack of Transportation (Non-Medical): No Housing Stability: Unknown (02/21/2024) Received from [facility] Housing Stability Vital Sign Unable to Pay [...] 152/78 Pulse 61 Ht 1.626 m (5' 4) Wt 50.8 kg (112 lb) BMI 19.22 [...] which would be a major abdominal surgery versus observation. I did recommend observation as I doubt [...] agreement and does not want surgery unless it is absolutely necessary. Total time spent in review of imaging studies with patient, [id number] counseling with patient was 35 minutes OFFICE VISIT Observed: 09/07/2024 11:00 AM Status: COMPLETED Source: [facility] [id number] May Leonard 0 1940 F Date Provider Department Center 09/07/2024 [id number] GARCIA [facility] POWER SYSTEM DISPATCHER None Family History Problem Relation Age of Onset Heart disease Father Rheumatic fever Father Family Status - Relation Status Age at Father Level of Service:10488 ND OFFICE/OUTPATIENT NEW LOW MDM 30 MINUTES Reason for Visit and Comments: Female Problem [263] ALLERGIES No Allergies Records Found ENCOUNTERS ADMIT/DISCHARGE ACCOUNT NUMBER ADMITTING ENCOUNTER CLASS LOCATION SOURCE 05/14/2025/05/17/20 [id number] BASIL LYMAN, DANIE Wiggins Inpatient Encounter ABuilding:[facility] 5Room: 5530Bed: [facility] 05/07/2025/05/07/20 [id number] Ambulatory [facility]ER MAINBuilding :[facility] 04/24/2025/04/24/20 [id number] Ambulatory Buildin [id number] [facility] 12/17/2024/12/18/19 [id number] Ambulatory Buildin [id number] [facility] 09/07/2024/09/07/19 [id number] Ambulatory Buildin [id number] [facility] PAYERS ENCOUNTER GUARANTOR PAYER SUBSCRIBER SOURCE 05/14/2025 MAY WHITEB: [id number] [place], [place] [address]Gvz: (HP) Primary Insurance:MEDICARE PART A INSCOPolicy Number: [id number] Date:1148-67-08Nzrn Name:MMail Code YAHIR [address], [place] [address]KM: MAY WHITEB: [id number] [place], [place] [address]Iod: (HP) (WP) [facility] 05/14/2025 Secondary Insurance:MEDICARE PART B INSCOPolicy Number: [id number] Date:7993-79-63Ahjb Name:[employer] Administrators [address] [address], [place] [address]OV: MAY WHITEB: [id number] [address] [place], [place] [address]Hjx: (HP) () [facility] 05/14/2025 Tertiary Insurance:HUMANA INSCOPolicy Number: [id number] Date:7163-85-05Zjyc Name:SPORTS PHYSIOTHERAPIST [address] [place] [address]DB: MAY WHITEB: [id number] [address] [place], [place] [address]Jzd: (HP) (WP) [facility] 05/07/2025 MAY RUST: [address] [address]Oad: (HP) Primary Insurance:MEDICARE PART B INSCOPolicy Number: [id number] Date:6858-33-86Rvnf Name:PCGS Administrators [facility]PO [address] [address], [place] [address]JL: MAY LEONARDDOB: [id number] [address]Hao: (HP) (WP) [facility] 05/07/2025 Secondary Insurance:HUMANA INSCOPolicy Number: [id number] Date:9093-85-07Bxdb Name:SPORTS PHYSIOTHERAPIST [address] [place] [address]CV: MAY LEONARDDOB: [id number] [address] [address]Jjd: (HP) (WP) [facility] 04/24/2025 Primary Insurance:MEDICAREPoli cy Number: [id number] Date:7399-87-99Mklt Name:MedicarePO [address], [place] [address]HW: MAY LEONARDB: [id number] [address] 04/24/2025 Secondary Insurance:HUMANAPolicy Number: [id number] Date:4918-40-01Ksll Name:Commercial MAY LEONARDB: [id number] [address] 12/17/2024 Primary Insurance:MEDICAREPoli cy Number: [id number] Date:6334-31-88Hsng Name:[place] [address]MU: MAY LEONARDB: [id number] [address] 12/17/2024 Secondary Insurance:HUMANAPolicy Number: [id number] Date:3205-71-36Bkzt Name:Commercial MAY LEONARDB: [id number] [address] [address] [facility] 09/07/2024 Primary Insurance:MEDICAREPoli cy Number: [id number] Date:6254-56-40Ckrt Name:[place] [address]SV: MAY WHITEB: [id number] [address] [facility] 09/07/2024 Secondary Insurance:HUMANAPolicy Number: [id number] Date:5688-24-21Pltj Name:Commercial MAY RUST: [id number] [address] [address] [facility]
--- NOTE | 2025-06-03 09:03 | VDLE_ITS ---
Reason For Study Reason For Study: BLE SWelling RIGHT LEFT GSV is normal. GSV is normal. CFV is compressible, spontaneous, phasic, competent CFV is compressible, spontaneous, phasic, competent, and demonstrates normal augmentation. and demonstrates normal augmentation. FV is compressible, spontaneous, phasic, competent FV is compressible, spontaneous, phasic, competent and demonstrates normal augmentation. and demonstrates normal augmentation. POP V is compressible, spontaneous, phasic, competent POP V is compressible, spontaneous, phasic, competent and demonstrates normal augmentation. and demonstrates normal augmentation. T/P Trunk is compressible. T/P Trunk is compressible. PTV is compressible. PTV is compressible. RT PerV is compressible. LT PerV is compressible. Procedure This is a venous duplex using B-mode, color flow and spectral Doppler. Exam performed in department. The exam was diagnostic. A preliminary report was called and/or faxed to TCU RN. VL/Venous Duplex US - Pj Extrem Interpretation Summary Deep veins of the lower extremities are bilaterally patent and compressible seg mentally. There is no evidence of deep vein thrombosis on either side. Valvular competence appears intact within the p roximal deep venous systems bilaterally. The great saphenous veins appear bilaterally patent and compressible segmentall y. Ordering Physician: Moy Combs Chi Referring Physician: Rolf Peck Performed By: Noel Childress RVT
== END | disposition home or self-care (01) ==
LOC: CVS 09:03
PROVIDERS: PCP Family Medicine; Referring Provider Family Medicine Geriatric Medicine; Visit Provider Family Medicine Geriatric Medicine
DX: R60.1 Generalized edema (principal)
CPT/HCPCS: 93970

== ENCOUNTER → 2025-07-10 | Outpatient (CLI) | payer MEDICARE, OTHER, SELFPAY ==
[2025-07-10 14:55] LABS: Mucous, Urine 0 SEEN /hpf (<or=2+); Red Blood Cells-Urine 0 SEEN /hpf (0-5)
[2025-07-10 18:08] LABS: Hematocrit 32.4 % (37-47); Hemoglobin 10.9 g/dL (12.0-15.0); Immature Granulocytes Count 0.010 X10^3/uL (0.0-0.0); Mean Corp Hgb Conc 33.6 g/dL (32-36); Mean Corpuscular Volume 97.3 fL (81-99); Mean Platelet Vol. 9.9 fl (6.2-12.0); NRBC Flagged by Analyzer 0 % (0-5); Platelet Count 307 K/mm3 (150-450); RBC Distribution Width CV 14.3 % (11.6-14.6); RBC Distribution Width SD 51.6 fl (35.1-43.9); Red Blood Count 3.33 M/mm3 (4.2-5.4); White Blood Count 5.9 K/mm3 (4.4-11.0)
[2025-07-10 18:41] LABS: Color, Urine Yellow (Yellow); Glucose, Dipstick Normal (Normal); Ketone-Dipstick 5 mg/dl (Negative); Leukocyte Esterase-Dipstick Negative /ul (Negative); Nitrite-Dipstick Negative (Negative); Occult Blood-Urine 10 /ul (Negative); Protein-Dipstick 30 mg/dl (Negative); Specific Gravity, Urine 1.010 (1.002-1.030); Urine Bilirubin Dipstick Negative (Negative)
[2025-07-10 18:51] LABS: AST(SGOT) 17 U/L (<=31); Alanine Aminotransfer ALT/SGPT 13 U/L (<=34); Albumin, Serum 4.1 g/dL (3.4-4.8); Alkaline Phosphatase 66 U/L (35-104); BUN 22 mg/dL (4-19); BUN/Creat Ratio 31.2 RATIO (10-20); Calcium,Total 9.4 mg/dL (7.6-11.0); Carbon Dioxide 24.9 mmol/L (21.0-32.0); Chloride 98 mmol/L (98-108); Cholesterol 258 mg/dL (<=200); Globulin 2.5 g/dL (2.2-4.2); Glucose 113 mg/dL (70-99); Low Density Lipoprotein Calc. 147 mg/dL; Magnesium 2.0 mg/dL (1.5-2.2); Potassium 4.6 mmol/L (3.3-5.1); Triglycerides 104 mg/dL; Very Low Density Lipoprotein 21 mg/dL (5-40); Vitamin D,25 Hydroxy 37.3 ng/mL (30-100); cholesterol:hdl ratio screen 2.75
[2025-07-10 18:52] LABS: Anion Gap 11 (5-15)
[2025-07-10 21:24] LABS: Squamous Epithelial Cells - UA 0-5 SEEN /hpf (5-10)
[2025-07-10 21:25] LABS: Calcium Oxalate Crystals Ur 4+ /hpf (<or=2+); Transitional Epithelial - Ur 0-5 SEEN /hpf (0-5)
[2025-07-12 10:32] LABS: Ferritin 158 ng/mL (22-378); Iron 48 ug/dL (50-170); Iron Binding Capacity,Unsat 190 ug/dL (228-428); Vitamin B12 850 pg/mL (180-914)
[2025-07-12 10:41] LABS: Iron Binding Capacity,Total 238 ug/dL (250-450)
== END | disposition home or self-care (01) ==
LOC: MFPLAB 14:52
PROVIDERS: PCP Family Medicine; Visit Provider Family Medicine
DX: R82.81 Pyuria (principal); R73.09 Other abnormal glucose; D64.9 Anemia, unspecified; I10 Essential (primary) hypertension; M81.0 Age-related osteoporosis without current pathological fracture
CPT/HCPCS: 36415; 80053; 80061; 81001; 82306; 82607; 82728; 83036; 83540; 83550; 83735; 85025

== ENCOUNTER → 2025-07-23 10:21 | Outpatient (REF) | payer MEDICARE, OTHER, SELFPAY | PROVIDERS: PCP Family Medicine; Visit Provider Family Medicine | DX: D64.9 Anemia, unspecified (principal) | CPT/HCPCS: 82274 ==